=== PATIENT | male | born 1970 | race Caucasian/White ===

== ENCOUNTER 2016-07-28 22:30 | Inpatient (IN) | payer MEDICARE, OTHER ==
[2016-07-28] MEDS ORDERED: ONDANSETRON 4 MG/2 ML VIAL IVP STA (22:48)
[2016-07-28] MEDS ORDERED: SODIUM CHLORIDE 0.9% 2,000 ML IV ONE (22:48)
[2016-07-28] MEDS ORDERED: ACETAMINOPHEN TAB 500 MG TAB PO STA (22:48)
[2016-07-28] MEDS ORDERED: MORPHINE SULFATE 4 MG/ML SYRINGE IVP STA (22:48)
--- NOTE | 2016-07-28 23:05 | ED ---
General Adult HPI - General Chief complaint: Nausea/Vomiting/Diarrhea Stated complaint: Fever Time Seen by Provider: 07/28/16 22:39 Source: patient Mode of arrival: wheelchair Limitations: no limitations - History of Present Illness Initial comments: Is a 45-year-old male with a history of end-stage renal disease on peritoneal dialysis, seizures, CAD, hypertension who presents emergency department for fevers, chills, abdominal pain, generalized malaise, generalized body aches, nausea and vomiting. He states the symptoms started earlier today gradually worsened. He states that the last time he performs peritoneal dialysis was yesterday. He does state that he makes some urine. Denies any diarrhea or constipation. He states his abdominal pain is located in his left upper abdomen and left flank. Nothing seems to make it better or worse. It is nonradiating. He does admit to a cough however no shortness of breath. No chest pain. No dysuria or hematuria. No rashes. The patient does have a left AKA however declines that he has any wounds or erythema on that leg. No other complaints. His surgical training specialist is Dr. Mann - Related Data Home Medications Medication Instructions Recorded Confirmed Atorvastatin [Lipitor] 80 mg PO HS 04/08/15 07/28/16 Calcium Acetate [PhosLo] 1,334 mg PO TID-W/MEALS 04/08/15 07/28/16 Fluticasone Propionate [Flonase 2 spray EA NOSTRIL DAILY PRN 04/08/15 07/28/16 Allergy Relief] Folic Acid 1 mg PO DAILY 04/08/15 07/28/16 Folic Acid-Vit B Complex-Vit C 1 cap PO HS 04/08/15 07/28/16 [Nephrocaps] Gabapentin [Neurontin] 300 mg PO TID 04/08/15 07/28/16 Insulin Glargine [Lantus] 10 unit SQ HS 04/08/15 07/28/16 Levothyroxine Sodium [Synthroid] 25 mcg PO DAILY 04/08/15 07/28/16 Insulin Aspart [NovoLOG] See Protocol SQ AC-TID 05/21/15 07/28/16 levETIRAcetam [Keppra] 750 mg PO Q12HR 05/21/15 07/28/16 Amiodarone [Cordarone] 200 mg PO BID 01/20/16 07/28/16 Famotidine [Pepcid] 20 mg PO BID 01/20/16 07/28/16 Sevelamer [Renvela] 1,600 mg PO AC-TID 01/20/16 07/28/16 acetaZOLAMIDE [Diamox] 125 mg PO BID 01/20/16 07/28/16 Uqynqdqj-Qiufcfzuhl-Zspr Oint 1 applic TOPICAL DAILY 07/28/16 07/28/16 [Triple Antibiotic Ointment] amLODIPine [Norvasc] 10 mg PO DAILY 07/28/16 07/28/16 Previous Rx's Medication Instructions Recorded Sodium Bicarbonate Tab 650 mg PO BID #60 tab 06/03/15 Allergies Allergy/AdvReac Type Severity Reaction Status Date / Time No Known Allergies Allergy Verified 07/28/16 22:49 Review of Systems ROS Statement: Those systems with pertinent positive or pertinent negative responses have been documented in the HPI. ROS Other: All systems not noted in ROS Statement are negative. Past Medical History Past Medical History: Coronary Artery Disease (CAD), Diabetes Mellitus, Dialysis , Deep Vein Thrombosis (DVT), GERD/Reflux, Hyperlipidemia, Hypertension, Myocardial Infarction ([place]), Musculoskeletal Disorder, Renal Disease, Seizure Disorder Additional Past Medical History / Comment(s): Diabetic gastropathy, End stage renal disease currently on peritoneal dialysis, peripheral neuropathy, seizure disorder, compression fracture of the vertebral along with known history of this disease, blood clot from IV line in the upper extremity on the left, coronary artery disease, previous myocardial infarction, insulin-dependent diabetes mellitus, GE reflux, gastritis, chronic anemia, cataracts, currently on peritoneal dialysis, peripheral vascular disease with previous amputation involving a below-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 Last Myocardial Infarction Date:: 2012 History of Any Multi-Drug Resistant Organisms: MRSA Date of last positivie culture/infection: MDRO Source:: left foot, blood Past Surgical History: Orthopedic Surgery Additional Past Surgical History / Comment(s): amputation right toes, BKA right leg 2013, GEORGE CATARACTS,VITRECTOMY,GEORGE RETINAL SX Past Anesthesia/Blood Transfusion Reactions: No Reported Reaction Additional Past Anesthesia/Blood Transfusion Reaction / Comment(s): VERTIGO Past Psychological History: No Psychological Hx Reported Additional Psychological History / Comment(s): Single. Tobacco smoker. Denies significant alcohol or recreational drug use. Originally was from the [place] area and then moved down to [place]. Is now moved back to be with his family members. He has a experience. He denies any significant travel history. Denied animal exposure. Smoking Status: Never smoker Past Alcohol Use History: None Reported Past Drug Use History: None Reported - Past Family History Father Family Medical History: Cancer Additional Family Medical History / Comment(s): CANCER FROM AGENT [employer] Mother History Unknown: Yes Family Medical History: Cancer, Supraventricular Tachycardia (SVT) Additional Family Medical History / Comment(s): LUNG CANCER(SMOKER) General Exam - General Exam Comments Initial Comments: Constitutional: Awake alert, patient appears pale and ill-appearing Head: Normocephalic atraumatic Eyes: no conjunctival injection No scleral icterus EOMI Neck: No JVD Supple Heart: Tachycardia normal S1-S2 no murmurs Lungs: Clear to auscultation bilaterally No wheezing No rales Abdomen: Soft nondistended tenderness to palpation in the left upper quadrant and left flank, no guarding or rigidity Extremities: Non edematous DP pulses intact Radial pulses intact Neuro: A&Ox3 No focal neurologic deficits Psych: Appropriate mood and affect Limitations: no limitations Course Vital Signs 07/28/16 07/29/16 22:32 00:31 Temperature 102 F H 100.2 F H Pulse Rate 96 84 Respiratory 18 18 Rate Blood Pressure 110/59 115/68 O2 Sat by Pulse 97 94 L Oximetry EKG Findings - EKG Comments: EKG Findings:: EKG showing normal sinus rhythm with a rate of 92. No ST segment changes or T-wave inversions. QTC is 494. Other intervals are normal. No ectopy. Medical Decision Making - Medical Decision Making This 45-year-old male who presents emergency department for high fevers nausea and vomiting and abdominal pain. At this time no focal findings for source of infection. Urinalysis is pending. Does not appear to have peritonitis. No pneumonia. Influenza is negative. Blood cultures were drawn and pending. At this time I started the patient in on vancomycin and cefepime going to admit the hospital for sepsis. Dr. Cm accepts the admission. I consult Dr. Mann to manage his renal disease. Patient was updated and agrees. - Lab Data Result diagrams: 07/28/16 23:05 07/28/16 23:05 Lab Results 07/28/16 07/28/16 07/28/16 Range/Units 23:05 23:05 23:05 WBC 14.1 H (3.8-10.6) k/uL RBC 3.27 L (4.30-5.90) m/uL Hgb 9.4 L (13.0-17.5) gm/dL Hct 28.4 L (39.0-53.0) % MCV 86.9 (80.0-100.0) fL MCH 28.8 (25.0-35.0) pg MCHC 33.1 (31.0-37.0) g/dL RDW 13.8 (11.5-15.5) % Plt Count 225 (150-450) k/uL Neutrophils % 90 % Lymphocytes % 3 % Monocytes % 5 % Eosinophils % 1 % Basophils % 1 % Neutrophils # 12.7 H (1.3-7.7) k/uL Lymphocytes # 0.4 L (1.0-4.8) k/uL Monocytes # 0.7 (0-1.0) k/uL Eosinophils # 0.1 (0-0.7) k/uL Basophils # 0.1 (0-0.2) k/uL PT 10.1 (9.0-12.0) sec INR 1.0 (<1.1) APTT 22.4 (22.0-30.0) sec Sodium 132 L (137-145) mmol/L Potassium 4.5 (3.5-5.1) mmol/L Chloride 96 L (98-107) mmol/L Carbon Dioxide 24 (22-30) mmol/L Anion Gap 12 mmol/L BUN 50 H (9-20) mg/dL Creatinine 10.48 H* (0.66-1.25) mg/dL Est GFR (MDRD) Af Amer 7 (>60 ml/min/1.73 sqM) Est GFR (MDRD) Non-Af 5 (>60 ml/min/1.73 sqM) Glucose 162 H (74-99) mg/dL Plasma Lactic Acid Massimo (0.7-2.0) mmol/L Calcium 7.8 L (8.4-10.2) mg/dL Magnesium 1.7 (1.6-2.3) mg/dL Total Bilirubin 0.5 (0.2-1.3) mg/dL AST 20 (17-59) U/L ALT 27 (21-72) U/L Alkaline Phosphatase 81 (38-126) U/L Troponin I (0.000-0.034) ng/mL Total Protein 5.5 L (6.3-8.2) g/dL Albumin 2.9 L (3.5-5.0) g/dL Amylase <30 L (30-110) U/L Lipase 28 (23-300) U/L Fluid Source Fluid Color Fluid Appearance Fluid RBC /uL Fluid Nucleated Cells /uL Influenza Type A RNA (Not Detectd) Influenza Type B (PCR) (Not Detectd) 07/28/16 07/28/16 07/28/16 Range/Units 23:05 23:05 23:14 WBC (3.8-10.6) k/uL RBC (4.30-5.90) m/uL Hgb (13.0-17.5) gm/dL Hct (39.0-53.0) % MCV (80.0-100.0) fL MCH (25.0-35.0) pg MCHC (31.0-37.0) g/dL RDW (11.5-15.5) % Plt Count (150-450) k/uL Neutrophils % % Lymphocytes % % Monocytes % % Eosinophils % % Basophils % % Neutrophils # (1.3-7.7) k/uL Lymphocytes # (1.0-4.8) k/uL Monocytes # (0-1.0) k/uL Eosinophils # (0-0.7) k/uL Basophils # (0-0.2) k/uL PT (9.0-12.0) sec INR (<1.1) APTT (22.0-30.0) sec Sodium (137-145) mmol/L Potassium (3.5-5.1) mmol/L Chloride (98-107) mmol/L Carbon Dioxide (22-30) mmol/L Anion Gap mmol/L BUN (9-20) mg/dL Creatinine (0.66-1.25) mg/dL Est GFR (MDRD) Af Amer (>60 ml/min/1.73 sqM) Est GFR (MDRD) Non-Af (>60 ml/min/1.73 sqM) Glucose (74-99) mg/dL Plasma Lactic Acid Massimo 1.4 (0.7-2.0) mmol/L Calcium (8.4-10.2) mg/dL Magnesium (1.6-2.3) mg/dL Total Bilirubin (0.2-1.3) mg/dL AST (17-59) U/L ALT (21-72) U/L Alkaline Phosphatase (38-126) U/L Troponin I <0.012 (0.000-0.034) ng/mL Total Protein (6.3-8.2) g/dL Albumin (3.5-5.0) g/dL Amylase (30-110) U/L Lipase (23-300) U/L Fluid Source Fluid Color Fluid Appearance Fluid RBC /uL Fluid Nucleated Cells /uL Influenza Type A RNA Not Detected (Not Detectd) Influenza Type B (PCR) Not Detected (Not Detectd) 07/28/16 Range/Units 23:50 WBC (3.8-10.6) k/uL RBC (4.30-5.90) m/uL Hgb (13.0-17.5) gm/dL Hct (39.0-53.0) % MCV (80.0-100.0) fL MCH (25.0-35.0) pg MCHC (31.0-37.0) g/dL RDW (11.5-15.5) % Plt Count (150-450) k/uL Neutrophils % % Lymphocytes % % Monocytes % % Eosinophils % % Basophils % % Neutrophils # (1.3-7.7) k/uL Lymphocytes # (1.0-4.8) k/uL Monocytes # (0-1.0) k/uL Eosinophils # (0-0.7) k/uL Basophils # (0-0.2) k/uL PT (9.0-12.0) sec INR (<1.1) APTT (22.0-30.0) sec Sodium (137-145) mmol/L Potassium (3.5-5.1) mmol/L Chloride (98-107) mmol/L Carbon Dioxide (22-30) mmol/L Anion Gap mmol/L BUN (9-20) mg/dL Creatinine (0.66-1.25) mg/dL Est GFR (MDRD) Af Amer (>60 ml/min/1.73 sqM) Est GFR (MDRD) Non-Af (>60 ml/min/1.73 sqM) Glucose (74-99) mg/dL Plasma Lactic Acid Massimo (0.7-2.0) mmol/L Calcium (8.4-10.2) mg/dL Magnesium (1.6-2.3) mg/dL Total Bilirubin (0.2-1.3) mg/dL AST (17-59) U/L ALT (21-72) U/L Alkaline Phosphatase (38-126) U/L Troponin I (0.000-0.034) ng/mL Total Protein (6.3-8.2) g/dL Albumin (3.5-5.0) g/dL Amylase (30-110) U/L Lipase (23-300) U/L Fluid Source Peritoneal Fluid Color Yellow Fluid Appearance Clear Fluid RBC 0 /uL Fluid Nucleated Cells 6 /uL Influenza Type A RNA (Not Detectd) Influenza Type B (PCR) (Not Detectd) Disposition Clinical Impression: Sepsis Disposition: ADMITTED IP TO THIS [facility] Condition: Stable Decision to Admit Reason: Admit from EC
[2016-07-28 23:25] LABS: Basophils # (A) 0.1 k/uL (0-0.2); Basophils % (A) 1 %; CH 30.2; CHCM 34.8; Eosinophils # (A) 0.1 k/uL (0-0.7); Eosinophils % (A) 1 %; HCT 28.4 % (39.0-53.0); HDW 3.11; HGB 9.4 gm/dL (13.0-17.5); Luc # (Auto) 0.09; Luc % (Auto) 1; Lymphocytes # (A) 0.4 k/uL (1.0-4.8); Lymphocytes % (A) 3 %; MCH 28.8 pg (25.0-35.0); MCHC 33.1 g/dL (31.0-37.0); MCV 86.9 fL (80.0-100.0); Mean Platelet Volume 7.6; Monocytes # (A) 0.7 k/uL (0-1.0); Monocytes % (A) 5 %; Neutrophils # (A) 12.7 k/uL (1.3-7.7); Neutrophils % (A) 90 %; RBC 3.27 m/uL (4.30-5.90); RDW 13.8 % (11.5-15.5); WBC 14.1 k/uL (3.8-10.6); WBC (Perox) 14.52
[2016-07-28 23:38] LABS: ALT 27 U/L (21-72); AST 20 U/L (17-59); Alkaline Phosphatase 81 U/L (38-126); Amylase <30 U/L (30-110); Anion Gap 12 mmol/L; Blood Urea Nitrogen 50 mg/dL (9-20); Calcium 7.8 mg/dL (8.4-10.2); Carbon Dioxide 24 mmol/L (22-30); Chloride 96 mmol/L (98-107); Glucose 162 mg/dL (74-99); Magnesium 1.7 mg/dL (1.6-2.3); Potassium 4.5 mmol/L (3.5-5.1); Sodium 132 mmol/L (137-145); Total Bilirubin 0.5 mg/dL (0.2-1.3); Total Protein 5.5 g/dL (6.3-8.2)
[2016-07-28 23:39] LABS: Partial Thromboplastin Time 22.4 sec (22.0-30.0); Prothrombin Time 10.1 sec (9.0-12.0)
[2016-07-28 23:47] LABS: Non-African American GFR(MDRD) 5 (>60 ml/min/1.73 sqM)
--- NOTE | 2016-07-29 00:26 | CT ---
EXAMINATION TYPE: CT abdomen pelvis wo con DATE OF EXAM: 07/28/2016 11:46 PM COMPARISON: 01/20/2016 HISTORY: abd pain, fever, peritoneal dialysis for renal disease CT DLP: 557.70 mGycm Automated exposure control for dose reduction was used. TECHNIQUE: Helical acquisition of images was performed from the lung bases through the pelvis. FINDINGS: LUNG BASES: Minor dependent atelectasis is suggested in both lung bases. LIVER/GB: No significant abnormality is appreciated in the liver. Moderately fluid distended gallblad nahum is noted. There is possibility of sludge in the gallbladder. PANCREAS: No significant abnormality is seen. SPLEEN: No significant abnormality is seen. ADRENALS: No significant abnormality is seen. KIDNEYS: No significant abnormality is seen. RETROPERITONEAL ADENOPATHY: None visualized REPRODUCTIVE ORGANS: Enlarged prostate gland is noted. URINARY BLADDER: No significant abnormality is seen. PELVIC ADENOPATHY: None visualized. OSSEOUS STRUCTURES: There is stable mild to moderate wedge compression fracture deformity of T9 vert ebral body of approximately 30-40%. There is surgical cement with vertebroplasty is noted in the T12 vertebra with mild 20-30% wedge compression fracture deformity. Mild multilevel degenerative changes are present in the thoracal lumbar spine. BOWEL: Small hiatal hernia is again suggested. No significant bowel obstruction is noted. There is m ild colonic diverticulosis. OTHER: The dialysis catheter is again noted entering the right anterior pelvic wall and is coiled in the left pelvic ascites fluid with interval repositioning from the right side to the left side of the pelvis. The ascites fluid is of gaay-rn-sarjwuol degree without significant changes since previous study whic h is seen around the liver and spleen and in the pelvis and bilateral paracolic gutters. Previously noted 4 cm broken piece of catheter in the right upper abdomen. The liver margin is no shirlene justin seen. There is probably interval removal of this catheter. IMPRESSION: 1. STABLE MILD TO MODERATE ASCITES FLUID IN THE ABDOMEN AND PELVIS WITH RIGHT-SIDED DIALYSIS CATHETER IN PLACE WHICH IS NOW COILED IN THE LEFT PELVIS WITH SHIFT IN THE POSITION. 2. FLUID DISTENDED GALLBLADDER IS AGAIN NOTED WITH POSSIBLE SLUDGE IN THE GALLBLADDER. 3. PREVIOUSLY SEEN BROKEN CATHETER PIECE IS NOT VISUALIZED AT THIS TIME IN THE ABDOMEN AND PELVIS.
--- NOTE | 2016-07-29 00:28 | XR ---
EXAMINATION TYPE: XR chest 2V DATE OF EXAM: 07/28/2016 11:46 PM COMPARISON: 09/09/2014 HISTORY: Fever TECHNIQUE: Frontal and lateral views of the chest are obtained. FINDINGS: There is interval removal of right-sided dialysis catheter. Mild chronic lung changes are suggested. There is no focal air space opacity, pleural effusion, or pneumothorax seen. There is mild cardiomega ly. The osseous structures are intact. IMPRESSION: 1. Mild cardiomegaly. 2. Interval removal of right-sided dialysis catheter. 3. No active lung infiltrates.
[2016-07-29] MEDS ORDERED: CEFEPIME 1 GM in SODIUM CHLORIDE 0.9% 50 ML IVPB STA (00:32)
[2016-07-29] MEDS ORDERED: VANCOMYCIN 1,500 MG in SODIUM CHLORIDE 0.9% 250 ML IVPB ONE (00:32)
[2016-07-29 00:45] LABS: RBC, Body Fluid 0 /uL
[2016-07-29] MEDS ORDERED: MORPHINE SULFATE 4 MG/ML SYRINGE IVP STA (01:08)
[2016-07-29] MEDS ORDERED: IV VANCOMYCIN PER PHARMACY 1 EACH MISC MISCELLANE PRN (01:10)
[2016-07-29 01:18] LABS: Appearance,Urine Clear (Clear); Bacteria,Urine Rare /hpf; Bilirubin,Urine Negative (Negative); Glucose,Urine (UA) 3+ (Negative); Ketones,Urine Negative (Negative); Leukocyte Esterase,Urine Negative (Negative); Mucus,Urine Rare /hpf; Nitrite,Urine Negative (Negative); Particle Count 912; Protein,Urine 4+ (Negative); RBC,Urine 2 /hpf (0-5); UA Billing (MACRO vs. MICRO) MICRO; Urobilinogen,Urine <2.0 mg/dL (<2.0); WBC,Urine 2 /hpf (0-5)
[2016-07-29] MEDS: SODIUM CHLORIDE 0.9% 1,000 ML IV SCH (01:28)
[2016-07-29] MEDS: MORPHINE SULFATE 2 MG/ML SYRINGE IVP PRN ×4 (06:39→21:14)
[2016-07-29 07:46] LABS: Glucose,Whole Blood 140 mg/dL (75-99)
[2016-07-29] MEDS: INSULIN LISPRO (humaLOG) 300 UNIT/3 ML VIAL SQ SCH ×4 (08:15→21:14)
[2016-07-29] MEDS: levETIRAcetam 500 MG TAB PO SCH ×2 (08:51→21:14)
[2016-07-29] MEDS: GABAPENTIN 300 MG CAP PO SCH ×3 (08:52→21:15)
[2016-07-29] MEDS: SODIUM BICARBONATE TAB 650 MG TAB PO SCH ×2 (08:52→21:15)
[2016-07-29] MEDS: LEVOTHYROXINE 25 MCG TAB PO SCH (08:53)
[2016-07-29] MEDS: acetaZOLAMIDE 250 MG TAB PO SCH ×2 (08:53→21:15)
[2016-07-29] MEDS: AMIODARONE 200 MG TAB PO SCH ×2 (09:59→21:14)
[2016-07-29] MEDS: SEVELAMER 800 MG TAB PO SCH ×3 (09:59→17:27)
[2016-07-29] MEDS: ONDANSETRON 4 MG/2 ML VIAL IVP PRN ×2 (10:00→23:57)
[2016-07-29 11:36] LABS: Hemoglobin A1C 12.2 % (4.2-6.1)
[2016-07-29 12:49] LABS: Glucose,Whole Blood 171 mg/dL (75-99)
--- NOTE | 2016-07-29 14:32 | P.NPCON ---
History of Present Illness - Reason for Consult end stage renal disease - History of Present Illness Reason for consultation: End-stage renal disease History of present illness: Patient is a 45-year-old male seen in renal consultation for end- stage renal disease. He is maintained on peritoneal dialysis. Patient presented to the hospital with generalized aches and weakness. He also noted a high fever at home. At the emergency room his temperature was 102 and he's been afebrile since. He was having vomiting prior to admission but no episodes since then. He denies any diarrhea. Does admit to generalized weakness and body aches. Denies any chest pain or shortness of breath. He denies any problems with peritoneal dialysis. Currently feels tired. His appetite is quite poor. Does not feel hungry. Did receive broad-spectrum IV antibiotics in the emergency room. No evidence of peritonitis at this time. Vital signs are stable. General: The patient appeared well nourished and normally developed. HEENT: Head exam is unremarkable. Neck is without jugular venous distension. LUNGS: Lungs are clear to auscultation and percussion. Breath sounds decreased. HEART: Rate and Rhythm are regular. First and second heart sounds normal. No murmurs, rubs or gallops. ABDOMEN: Abdominal exam reveals normal bowel sounds. Non-tender and non- distended. No evidence of peritonitis. EXTREMITITES: No edema. Amputation noted. Past Medical History Past Medical History: Coronary Artery Disease (CAD), Diabetes Mellitus, Dialysis , Deep Vein Thrombosis (DVT), GERD/Reflux, Hyperlipidemia, Hypertension, Myocardial Infarction ([place]), Musculoskeletal Disorder, Renal Disease, Seizure Disorder Additional Past Medical History / Comment(s): Diabetic gastropathy, End stage renal disease currently on peritoneal dialysis , peripheral neuropathy, seizure disorder, compression fracture of the vertebral along with known history of this disease, blood clot from IV line in the upper extremity on the left, coronary artery disease, previous myocardial infarction, insulin- dependent diabetes mellitus, GE reflux, gastritis, chronic anemia, cataracts, currently on peritoneal dialysis, peripheral vascular disease with previous amputation involving a below-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 Last Myocardial Infarction Date:: 2012 History of Any Multi-Drug Resistant Organisms: MRSA Date of last positivie culture/infection: MDRO Source:: left foot, blood Past Surgical History: Orthopedic Surgery Additional Past Surgical History / Comment(s): amputation right toes, BKA right leg 2013, GEORGE CATARACTS,VITRECTOMY,GEORGE RETINAL SX Past Anesthesia/Blood Transfusion Reactions: No Reported Reaction Additional Past Anesthesia/Blood Transfusion Reaction / Comment(s): VERTIGO Past Psychological History: No Psychological Hx Reported Additional Psychological History / Comment(s): Single. Tobacco smoker. Denies significant alcohol or recreational drug use. Originally was from the [place] area and then moved down to [place]. Is now moved back to be with his family members in [place] since 2014. He has a experience. He denies any significant travel history. Denied animal exposure. Smoking Status: Never smoker Past Alcohol Use History: None Reported Past Drug Use History: None Reported - Past Family History Father Family Medical History: Cancer Additional Family Medical History / Comment(s): CANCER FROM AGENT [employer]ANGE Mother History Unknown: Yes Family Medical History: Cancer, Supraventricular Tachycardia (SVT) Additional Family Medical History / Comment(s): LUNG CANCER(SMOKER) Medications and Allergies Home Medications Medication Instructions Recorded Confirmed Type Atorvastatin [Lipitor] 80 mg PO HS 04/08/15 07/28/16 History Calcium Acetate [PhosLo] 1,334 mg PO TID-W/MEALS 04/08/15 07/28/16 History Fluticasone Propionate [Flonase 2 spray EA NOSTRIL DAILY PRN 04/08/15 07/28/16 History Allergy Relief] Folic Acid 1 mg PO DAILY 04/08/15 07/28/16 History Folic Acid-Vit B Complex-Vit C 1 cap PO 04/08/15 07/28/16 History [Nephrocaps] Gabapentin [Neurontin] 300 mg PO TID 04/08/15 07/28/16 History Insulin Glargine [Lantus] 10 unit SQ HS 04/08/15 07/28/16 History Levothyroxine Sodium [Synthroid] 25 mcg PO DAILY 04/08/15 07/28/16 History Insulin Aspart [NovoLOG] See Protocol SQ AC-TID 05/21/15 07/28/16 History levETIRAcetam [Keppra] 750 mg PO Q12HR 05/21/15 07/28/16 History Amiodarone [Cordarone] 200 mg PO BID 01/20/16 07/28/16 History Famotidine [Pepcid] 20 mg PO BID 01/20/16 07/28/16 History Sevelamer [Renvela] 1,600 mg PO AC-TID 01/20/16 07/28/16 History acetaZOLAMIDE [Diamox] 125 mg PO BID 01/20/16 07/28/16 History Kyevaubc-Unthzmoltt-Lkbl Oint 1 applic TOPICAL DAILY 07/28/16 07/28/16 History [Triple Antibiotic Ointment] amLODIPine [Norvasc] 10 mg PO DAILY 07/28/16 07/28/16 History Allergies Allergy/AdvReac Type Severity Reaction Status Date / Time No Known Allergies Allergy Verified 07/28/16 22:49 Physical Exam Vitals: Vital Signs Temp Pulse Pulse Resp BP BP Pulse Ox 07/29/16 07:00 97 F L 68 19 109/67 98 07/29/16 03:12 97.4 F L 78 18 112/66 100 07/29/16 02:46 98.1 F 73 16 114/65 97 07/29/16 01:33 98.7 F 76 18 115/68 95 Intake and Output 07/28/16 07/29/16 07/29/16 22:59 06:59 14:59 Intake Total 0 Output Total 100 Balance 0 -100 Intake: Oral 0 Output: Urine 100 Other: Voiding Method Urinal CAPD # Voids 0 Weight 87.5 kg Results - Lab Results Most recent lab results Calcium 7.8 mg/dL (8.4-10.2) L 07/28/16 23:05 Magnesium 1.7 mg/dL (1.6-2.3) 07/28/16 23:05 07/28/16 23:05 07/28/16 23:05 Assessment and Plan Plan: Assessment: #1. End-stage renal disease maintained on peritoneal dialysis. #2. Fever. Questionable viral syndrome. No evidence of peritonitis at this time. #3. Anemia of chronic kidney disease. #4. Chronic kidney disease mineral bone disease. #5. Insulin-dependent diabetes mellitus. Plan: Decrease IV fluids to 40 mL an hour. Maintain 2.5 L 2.5% exchanges every 6 hours. Follow-up peritoneal fluid culture. No evidence of peritonitis at this time. Start Aranesp. Check iron studies. Check phosphorus level. Maintain Renvela with meals. Nephrocaps daily. Antibiotics per infectious disease recommendations. Thank you for the consultation. I will continue to follow the patient with you during his hospital stay.
[2016-07-29 14:54] LABS: Phosphorous 5.7 mg/dL (2.5-4.5)
[2016-07-29 15:04] LABS: % Iron Saturation 23.2 % (20-50)
[2016-07-29] MEDS: FOLIC ACID-VIT B COMPLEX-VIT C 1 CAP PO SCH (16:15)
[2016-07-29] MEDS: DARBEPOETIN ALFA 40 MCG/0.4 ML SYRINGE SQ SCH (16:15)
[2016-07-29 16:57] LABS: Glucose,Whole Blood 145 mg/dL (75-99)
--- NOTE | 2016-07-29 17:57 | P.HPIM ---
History of Present Illness 45-year-old male presented to the emergency room with some fever 10 to nausea vomiting and abdominal pain. Patient has a history of peritoneal dialysis. Review of Systems Constitutional: Reports fatigue, Reports fever Gastrointestinal: Reports vomiting Past Medical History Past Medical History: Coronary Artery Disease (CAD), Diabetes Mellitus, Dialysis , Deep Vein Thrombosis (DVT), GERD/Reflux, Hyperlipidemia, Hypertension, Myocardial Infarction ([place]), Musculoskeletal Disorder, Renal Disease, Seizure Disorder Additional Past Medical History / Comment(s): Diabetic gastropathy, End stage renal disease currently on peritoneal dialysis , peripheral neuropathy, seizure disorder, compression fracture of the vertebral along with known history of this disease, blood clot from IV line in the upper extremity on the left, coronary artery disease, previous myocardial infarction, insulin- dependent diabetes mellitus, GE reflux, gastritis, chronic anemia, cataracts, currently on peritoneal dialysis, peripheral vascular disease with previous amputation involving a below-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 Last Myocardial Infarction Date:: 2012 History of Any Multi-Drug Resistant Organisms: MRSA Date of last positivie culture/infection: MDRO Source:: left foot, blood Past Surgical History: Orthopedic Surgery Additional Past Surgical History / Comment(s): amputation right toes, BKA right leg 2013, GEORGE CATARACTS,VITRECTOMY,GEORGE RETINAL SX Past Anesthesia/Blood Transfusion Reactions: No Reported Reaction Additional Past Anesthesia/Blood Transfusion Reaction / Comment(s): VERTIGO Past Psychological History: No Psychological Hx Reported Additional Psychological History / Comment(s): Single. Tobacco smoker. Denies significant alcohol or recreational drug use. Originally was from the [place] area and then moved down to [place]. Is now moved back to be with his family members in [place] since 2014. He has a experience. He denies any significant travel history. Denied animal exposure. Smoking Status: Never smoker Past Alcohol Use History: None Reported Past Drug Use History: None Reported - Past Family History Father Family Medical History: Cancer Additional Family Medical History / Comment(s): CANCER FROM [facility] [facility] Mother History Unknown: Yes Family Medical History: Cancer, Supraventricular Tachycardia (SVT) Additional Family Medical History / Comment(s): LUNG CANCER(SMOKER) Medications and Allergies Home Medications Medication Instructions Recorded Confirmed Type Atorvastatin [Lipitor] 80 mg PO HS 04/08/15 07/28/16 History Calcium Acetate [PhosLo] 1,334 mg PO TID-W/MEALS 04/08/15 07/28/16 History Fluticasone Propionate [Flonase 2 spray EA NOSTRIL DAILY PRN 04/08/15 07/28/16 History Allergy Relief] Folic Acid 1 mg PO DAILY 04/08/15 07/28/16 History Folic Acid-Vit B Complex-Vit C 1 cap PO HS 04/08/15 07/28/16 History [Nephrocaps] Gabapentin [Neurontin] 300 mg PO TID 04/08/15 07/28/16 History Insulin Glargine [Lantus] 10 unit SQ HS 04/08/15 07/28/16 History Levothyroxine Sodium [Synthroid] 25 mcg PO DAILY 04/08/15 07/28/16 History Insulin Aspart [NovoLOG] See Protocol SQ AC-TID 05/21/15 07/28/16 History levETIRAcetam [Keppra] 750 mg PO Q12HR 05/21/15 07/28/16 History Amiodarone [Cordarone] 200 mg PO BID 01/20/16 07/28/16 History Famotidine [Pepcid] 20 mg PO BID 01/20/16 07/28/16 History Sevelamer [Renvela] 1,600 mg PO AC-TID 01/20/16 07/28/16 History acetaZOLAMIDE [Diamox] 125 mg PO BID 01/20/16 07/28/16 History Rpkzsimj-Mdecyuddra-Uckt Oint 1 applic TOPICAL DAILY 07/28/16 07/28/16 History [Triple Antibiotic Ointment] amLODIPine [Norvasc] 10 mg PO DAILY 07/28/16 07/28/16 History Allergies Allergy/AdvReac Type Severity Reaction Status Date / Time No Known Allergies Allergy Verified 07/28/16 22:49 Physical Exam Vitals: Vital Signs Temp Pulse Pulse Resp BP BP Pulse Ox 07/29/16 15:00 97.7 F 69 20 103/53 96 07/29/16 08:00 20 07/29/16 07:00 97 F L 68 19 109/67 98 07/29/16 03:12 97.4 F L 78 18 112/66 100 07/29/16 02:46 98.1 F 73 16 114/65 97 07/29/16 01:33 98.7 F 76 18 115/68 95 Intake and Output 07/29/16 07/29/16 07/29/16 06:59 14:59 22:59 Intake Total 0 Output Total 100 100 Balance 0 -100 -100 Intake: Oral 0 Output: Urine 100 100 Other: Voiding Method Urinal Urinal CAPD CAPD # Voids 0 1 Weight 87.5 kg 87.5 kg Patient Weight 07/30/16 06:59 Weight 87.5 kg - Constitutional General appearance: mild distress - EENT Eyes: PERRLA Ears: bilateral: normal - Neck Neck: normal ROM - Respiratory Respiratory: bilateral: CTA - Cardiovascular Rhythm: regular - Gastrointestinal General gastrointestinal: soft - Integumentary Integumentary: normal - Neurologic Neurologic: CNII-XII intact - Musculoskeletal Musculoskeletal: generalized weakness - Psychiatric Psychiatric: A&O x's 3, appropriate affect, intact judgment & insight Results CBC & Chem 7: 07/28/16 23:05 07/28/16 23:05 Labs: Abnormal Lab Results - Last 24 Hours (Table) 07/29/16 07/29/16 07/29/16 Range/Units 06:21 06:21 06:21 POC Glucose (mg/dL) (75-99) mg/dL Hemoglobin A1c 12.2 H (4.2-6.1) % Plasma Lactic Acid Massimo 0.5 L (0.7-2.0) mmol/L Phosphorus 5.7 H (2.5-4.5) mg/dL Iron 41 L (49-181) ug/dL TIBC 177 L (261-462) ug/dL Ferritin 901 H (18-464) ng/mL 07/29/16 07/29/16 07/29/16 Range/Units 07:30 12:32 16:56 POC Glucose (mg/dL) 140 H 171 H 145 H (75-99) mg/dL Hemoglobin A1c (4.2-6.1) % Plasma Lactic Acid Massimo (0.7-2.0) mmol/L Phosphorus (2.5-4.5) mg/dL Iron (49-181) ug/dL TIBC (261-462) ug/dL Ferritin (18-464) ng/mL Chest x-ray: report reviewed Thrombosis Risk Factor Assmnt - Choose All That Apply Any of the Below Risk Factors Present?: Yes Each Factor Represents 1 point: Age 41-60 years, Obesity (BMI >25) Other Risk Factors: Yes Each Risk Factor Represents 3 Points: History of DVT/PE Other congenital or acquired thrombophilia - If yes, enter type in comment: No Thrombosis Risk Factor Assessment Total Risk Factor Score: 5 Thrombosis Risk Factor Assessment Level: High Risk Assessment and Plan Plan: Assessment Sepsis fever undetermined origin End-stage renal failure on peritoneal dialysis GFR 5 History of DVT GERD Diabetic gastropathy Seizure disorder coronary artery disease Diabetes type [address] Sy regarding fever Culture of peritoneal fluid and urine Consult Dr. Mann regarding peritoneal dialysis
[2016-07-29] MEDS: DIALYSIS (PERITONEAL) DEX 2.5% 2,500 ML INTRAPERIT SCH ×2 (18:34→23:51)
[2016-07-29 20:41] LABS: Glucose,Whole Blood 173 mg/dL (75-99)
[2016-07-29] MEDS: INSULIN GLARGINE 100 UNIT/ML 10 ML VIAL SQ SCH (21:14)
[2016-07-29] MEDS: ATORVASTATIN 80 MG TAB PO SCH (21:14)
--- NOTE | 2016-07-29 22:07 | P.CONS ---
History of Present Illness - Reason for Consult Consult date: 07/29/16 - Chief Complaint Fever - History of Present Illness 45-year-old male with long-standing history of diabetes mellitus type 2 presents to hospital with a sudden onset of high-grade fever with chills, no delmy rigor with severe body aches. Because he felt so poorly presented to the emergency center. There are temperature 100 and she was noted he was admitted to hospital for concerns to sepsis. It essentially just slightly better. His temperature is improved. Continues to have some severe body aches. He's also has significant difficulty with nausea some emesis earlier but not currently. Did take a bite or 2 of his dinner tray but does not have any STIC in appetite. He is denying hematemesis or melena. He is not having significant diarrhea. He has some mild abdominal cramp without severe abdominal pain at this moment. Relates that his muscle aches are more severe than his abdominal pain. He's had no difficulty with his peritoneal dialysis. The fluid has been clear as far as he knows. He has not had prior difficulties with peritonitis related to his dialysis. Review of Systems HEENT:Denies headache or acute visual change. Denies sinus or mouth discomforts. Denies neck stiffness or pain. Denies significant oral cavity pain. Denies difficulty on swallowing. Lungs: Denies significant shortness of breath, cough, sputum production, or hemoptysis. Cardiovascular: Denies significant shortness of breath, chest pain, chest wall pain, orthopnea, dyspnea on exertion, syncope Gastrointestinal: As per the HPI Musculoskeletal: Patient complains of severe generalized myalgia minimal arthralgias especially to larger joints. No difficulty with ambulation. Skin: Denies new rash or lesions. No new ulcers or wounds are related.. Neuro: Mild headache has poor vision has had a recent vitrectomy and cataract surgery but denies that he and I pain. Denies any new onset weakness or difficulty with ambulation. Denies falls or seizures. Psychiatric:Denies anxiety or depression. Endocrine: Chronic fatigue weight is stable Past Medical History Past Medical History: Coronary Artery Disease (CAD), Diabetes Mellitus, Dialysis , Deep Vein Thrombosis (DVT), GERD/Reflux, Hyperlipidemia, Hypertension, Myocardial Infarction ([place]), Musculoskeletal Disorder, Renal Disease, Seizure Disorder Additional Past Medical History / Comment(s): Diabetic gastropathy, End stage renal disease currently on peritoneal dialysis , peripheral neuropathy, seizure disorder, compression fracture of the vertebral along with known history of this disease, blood clot from IV line in the upper extremity on the left, coronary artery disease, previous myocardial infarction, insulin- dependent diabetes mellitus, GE reflux, gastritis, chronic anemia, cataracts, currently on peritoneal dialysis, peripheral vascular disease with previous amputation involving a below-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 Last Myocardial Infarction Date:: 2012 History of Any Multi-Drug Resistant Organisms: MRSA Year Discovered:: MDRO Source:: left foot, blood Past Surgical History: Orthopedic Surgery Additional Past Surgical History / Comment(s): amputation right toes, BKA right leg 2013, GEORGE CATARACTS,VITRECTOMY,GEORGE RETINAL SX Past Anesthesia/Blood Transfusion Reactions: No Reported Reaction Additional Past Anesthesia/Blood Transfusion Reaction / Comm: VERTIGO Past Psychological History: No Psychological Hx Reported Additional Psychological History / Comment(s): Single. Tobacco smoker. Denies significant alcohol or recreational drug use. Originally was from the [place] and then moved down to [place]. Is now moved back to be with his family members in [place] since 2014. He has no experience. He denies any significant travel history. Brother has a pet dog in the home in which he lives. Relates that his 13-year-old daughter 2 years ago from suicide at the age of 13 Smoking Status: Never smoker Past Alcohol Use History: None Reported Past Drug Use History: None Reported - Past Family History Father Family Medical History: Cancer Additional Family Medical History / Comment(s): CANCER FROM [employer] [facility] Mother History Unknown: Yes Family Medical History: Cancer, Supraventricular Tachycardia (SVT) Additional Family Medical History / Comment(s): LUNG CANCER(SMOKER) Medications and Allergies Home Medications and Allergies Comment(s): Current Medications Acetaminophen (Tylenol Tab) 650 mg PO Q6HR PRN PRN Reason: Fever and/ or Pain Acetazolamide (Diamox) 125 mg PO BID [facility] Last Admin: 07/29/16 21:15 Dose: 125 mg Amiodarone HCl (Cordarone) 200 mg PO BID [facility] Last Admin: 07/29/16 21:14 Dose: 200 mg Atorvastatin Calcium (Lipitor) 80 mg PO HS [facility] Last Admin: 07/29/16 21:14 Dose: 80 mg Darbepoetin Blaine (Aranesp) 40 mcg SQ Q7D [facility] Last Admin: 07/29/16 16:15 Dose: 40 mcg Gabapentin (Neurontin) 300 mg PO TID [facility] Last Admin: 07/29/16 21:15 Dose: 300 mg Sodium Chloride (Saline 0.9%) 1,000 mls @ 40 mls/hr IV .Q24H [facility] Last Admin: 07/29/16 01:28 Dose: 75 mls/hr Peritoneal Dialysis Solution (Delflex With 2.5% Dextrose) 2,500 mls @ 0 mls/hr INTRAPERIT Q6HR [facility] PRN Reason: As Directed Last Admin: 07/29/16 18:34 Dose: 1,500 mls/hr Insulin Glargine (Lantus) 10 unit SQ [facility] Last Admin: 07/29/16 21:14 Dose: 10 unit Insulin Human Lispro (Humalog) 0 unit SQ ACHS [facility] PRN Reason: Protocol Last Admin: 07/29/16 21:14 Dose: 2 unit Levetiracetam (Keppra) 750 mg PO Q12HR [facility] Last Admin: 07/29/16 21:14 Dose: 750 mg Levothyroxine Sodium (Synthroid) 25 mcg PO DAILY [facility] Last Admin: 07/29/16 08:53 Dose: 25 mcg Miscellaneous Information (Pharmacy To Dose Iv Vancomycin) 1 each MISCELLANE DIRECTED PRN PRN Reason: Per Protocol Morphine Sulfate (Morphine Sulfate (Inj)) 2 mg IVP Q4H PRN PRN Reason: Pain/Discomfort Last Admin: 07/29/16 21:14 Dose: 2 mg Multivit/Ca Carb/B Cmplx/FA/Prenat (Nephrocaps) 1 each PO DAILY [facility] Last Admin: 07/29/16 16:15 Dose: 1 each Ondansetron HCl (Zofran) 4 mg IVP Q6HR PRN PRN Reason: Nausea And Vomiting Last Admin: 07/29/16 10:00 Dose: 4 mg Sevelamer Carbonate (Renvela) 1,600 mg PO AC-TID [facility] Last Admin: 07/29/16 17:27 Dose: 1,600 mg Sodium Bicarbonate (Sodium Bicarbonate Tab) 650 mg PO BID [facility] Last Admin: 07/29/16 21:15 Dose: 650 mg Home Medications Medication Instructions Recorded Confirmed Type Atorvastatin [Lipitor] 80 mg PO 04/08/15 07/28/16 History Calcium Acetate [PhosLo] 1,334 mg PO TID-W/MEALS 04/08/15 07/28/16 History Fluticasone Propionate [Flonase 2 spray EA NOSTRIL DAILY PRN 04/08/15 07/28/16 History Allergy Relief] Folic Acid 1 mg PO DAILY 04/08/15 07/28/16 History Folic Acid-Vit B Complex-Vit C 1 cap PO HS 04/08/15 07/28/16 History [Nephrocaps] Gabapentin [Neurontin] 300 mg PO TID 04/08/15 07/28/16 History Insulin Glargine [Lantus] 10 unit SQ HS 04/08/15 07/28/16 History Levothyroxine Sodium [Synthroid] 25 mcg PO DAILY 04/08/15 07/28/16 History Insulin Aspart [NovoLOG] See Protocol SQ AC-TID 05/21/15 07/28/16 History levETIRAcetam [Keppra] 750 mg PO Q12HR 05/21/15 07/28/16 History Amiodarone [Cordarone] 200 mg PO BID 01/20/16 07/28/16 History Famotidine [Pepcid] 20 mg PO BID 01/20/16 07/28/16 History Sevelamer [Renvela] 1,600 mg PO AC-TID 01/20/16 07/28/16 History acetaZOLAMIDE [Diamox] 125 mg PO BID 01/20/16 07/28/16 History Rvdkobik-Grliitfkot-Orme Oint 1 applic TOPICAL DAILY 07/28/16 07/28/16 History [Triple Antibiotic Ointment] amLODIPine [Norvasc] 10 mg PO DAILY 07/28/16 07/28/16 History Allergies Allergy/AdvReac Type Severity Reaction Status Date / Time No Known Allergies Allergy Verified 07/28/16 22:49 Physical Exam Vitals: Vital Signs Temp Pulse Pulse Resp BP BP Pulse Ox 07/29/16 18:30 97.5 F L 78 16 132/77 97 07/29/16 18:25 97.5 F L 78 16 132/77 97 07/29/16 16:00 69 20 07/29/16 15:00 97.7 F 69 20 103/53 96 07/29/16 08:00 20 07/29/16 07:00 97 F L 68 19 109/67 98 07/29/16 03:12 97.4 F L 78 18 112/66 100 07/29/16 02:46 98.1 F 73 16 114/65 97 07/29/16 01:33 98.7 F 76 18 115/68 95 Intake and Output 07/29/16 07/29/16 07/29/16 06:59 14:59 22:59 Intake Total 0 240 Output Total 100 100 Balance 0 -100 140 Intake: Oral 0 240 Output: Urine 100 100 Other: Voiding Method Urinal Urinal Urinal CAPD CAPD CAPD # Voids 0 1 Weight 87.5 kg 87.5 kg Patient Weight 07/30/16 06:59 Weight 87.5 kg 45-year-old gentleman relates feels considerably better. HEENT: Anicteric conjunctiva are pink and moist nasal mucosa grossly intact without significant lesions, there is no thrush. Recent surgical site to the eye is without erythema or tenderness Neck: The neck is supple without significant lymphadenopathy or thyromegaly. Lungs: Good bilateral air entry without significant crackles or wheezing. There is no significant bronchial sounds. There is no egophony or dullness. Heart: Regular rate and rhythm with an audible S1-S2, no S3 no S4. There is no significant murmur click or rub, PMI was nondisplaced. Abdomen: Positive bowel sounds soft and nontender without palpable masses or organomegaly. There was no guarding or rebound. Peritoneal dialysis catheter site is soft and nontender. Abdomen is without any rigidity or rebound. Currently without well Extremities: The upper extremities have excellent pulses they are symmetric, no significant petechiae or telangiectasia. No splinter hemorrhages were noted. The lower extremities are free from significant edema. The peripheral pulses were 2+ and symmetric. Neuro: Awake alert oriented to person place and time. Skin shows evidence of the multiple tattoos but none of them are tender or fresh or infected The patient has some minimal tenderness to his musculature but knows that he can warmth or swelling to the palpated muscles. Results CBC & Chem 7: 07/28/16 23:05 07/28/16 23:05 Labs: Abnormal Lab Results - Last 24 Hours (Table) 07/29/16 07/29/16 07/29/16 Range/Units 06:21 06:21 06:21 POC Glucose (mg/dL) (75-99) mg/dL Hemoglobin A1c 12.2 H (4.2-6.1) % Plasma Lactic Acid Massimo 0.5 L (0.7-2.0) mmol/L Phosphorus 5.7 H (2.5-4.5) mg/dL Iron 41 L (49-181) ug/dL TIBC 177 L (261-462) ug/dL Ferritin 901 H (18-464) ng/mL 07/29/16 07/29/16 07/29/16 Range/Units 07:30 12:32 16:56 POC Glucose (mg/dL) 140 H 171 H 145 H (75-99) mg/dL Hemoglobin A1c (4.2-6.1) % Plasma Lactic Acid Massimo (0.7-2.0) mmol/L Phosphorus (2.5-4.5) mg/dL Iron (49-181) ug/dL TIBC (261-462) ug/dL Ferritin (18-464) ng/mL 07/29/16 Range/Units 20:23 POC Glucose (mg/dL) 173 H (75-99) mg/dL Hemoglobin A1c (4.2-6.1) % Plasma Lactic Acid Massimo (0.7-2.0) mmol/L Phosphorus (2.5-4.5) mg/dL Iron (49-181) ug/dL TIBC (261-462) ug/dL Ferritin (18-464) ng/mL Microbiology 07/28/16 23:50 Peritoneal Fluid Gram Stain - Preliminary 07/28/16 23:50 Peritoneal Fluid Body Fluid Culture - Preliminary 07/29/16 01:00 Urine,Voided Urine Culture - Preliminary Assessment and Plan (1) Fever Status: Acute (2) Gastroenteritis Status: Acute (3) End stage renal disease on dialysis Status: Chronic (4) Poorly controlled type 2 diabetes mellitus with circulatory disorder Status: Acute
[2016-07-30] MEDS: SODIUM CHLORIDE 0.9% 1,000 ML IV SCH (00:10)
[2016-07-30] MEDS: MORPHINE SULFATE 2 MG/ML SYRINGE IVP PRN ×3 (00:55→11:52)
[2016-07-30] MEDS: DIALYSIS (PERITONEAL) DEX 2.5% 2,500 ML INTRAPERIT SCH ×4 (05:45→23:44)
[2016-07-30] MEDS: ONDANSETRON 4 MG/2 ML VIAL IVP PRN (05:48)
[2016-07-30 07:41] LABS: Glucose,Whole Blood 210 mg/dL (75-99)
[2016-07-30] MEDS: AMIODARONE 200 MG TAB PO SCH ×2 (07:47→22:37)
[2016-07-30] MEDS: acetaZOLAMIDE 250 MG TAB PO SCH ×2 (07:47→20:36)
[2016-07-30] MEDS: SODIUM BICARBONATE TAB 650 MG TAB PO SCH ×2 (07:47→20:36)
[2016-07-30] MEDS: FOLIC ACID-VIT B COMPLEX-VIT C 1 CAP PO SCH (07:47)
[2016-07-30] MEDS: GABAPENTIN 300 MG CAP PO SCH ×3 (07:47→22:37)
[2016-07-30] MEDS: levETIRAcetam 500 MG TAB PO SCH ×2 (07:47→20:36)
[2016-07-30] MEDS: SEVELAMER 800 MG TAB PO SCH ×3 (07:47→17:32)
[2016-07-30] MEDS: LEVOTHYROXINE 25 MCG TAB PO SCH (07:49)
[2016-07-30] MEDS: INSULIN LISPRO (humaLOG) 300 UNIT/3 ML VIAL SQ SCH ×4 (08:59→22:35)
[2016-07-30 09:25] LABS: Calcium 7.4 mg/dL (8.4-10.2); Potassium 4.3 mmol/L (3.5-5.1)
--- NOTE | 2016-07-30 11:03 | P.PN ---
Subjective Patient is seen in follow-up for end-stage renal disease. He is maintained on peritoneal dialysis. Patient presented with nausea and vomiting. This morning he's been vomiting again. Denies chest pain or shortness of breath. Denies abdominal pain. Appetite remains poor. Vital signs are stable. General: The patient appeared well nourished and normally developed. HEENT: Head exam is unremarkable. Neck is without jugular venous distension. LUNGS: Lungs are clear to auscultation and percussion. Breath sounds decreased. HEART: Rate and Rhythm are regular. First and second heart sounds normal. No murmurs, rubs or gallops. ABDOMEN: Abdominal exam reveals normal bowel sounds. Non-tender and non- distended. No evidence of peritonitis. EXTREMITITES: No clubbing, cyanosis, or edema. Amputation noted. Objective - Vital Signs Vital signs: Vital Signs Temp 97.2 F L 07/30/16 06:00 Pulse 77 07/30/16 06:00 Resp 18 07/30/16 06:00 BP 109/63 07/30/16 06:00 Pulse Ox 97 07/30/16 06:00 Intake & Output 07/29/16 07/30/16 07/30/16 18:59 06:59 18:59 Intake Total 240 400 Output Total 200 700 Balance 40 -300 Weight 87.5 kg 87.5 kg Intake: Oral 240 400 Output: Urine 200 700 Other: Voiding Method Urinal Urinal Urinal CAPD CAPD CAPD # Voids 1 - Labs CBC & Chem 7: 07/28/16 23:05 07/30/16 08:21 Labs: Abnormal Lab Results - Last 24 Hours (Table) 07/29/16 07/29/16 07/29/16 Range/Units 06:21 06:21 12:32 Sodium (137-145) mmol/L Carbon Dioxide (22-30) mmol/L BUN (9-20) mg/dL Creatinine (0.66-1.25) mg/dL Glucose (74-99) mg/dL POC Glucose (mg/dL) 171 H (75-99) mg/dL Hemoglobin A1c 12.2 H (4.2-6.1) % Calcium (8.4-10.2) mg/dL Phosphorus 5.7 H (2.5-4.5) mg/dL Iron 41 L (49-181) ug/dL TIBC 177 L (261-462) ug/dL Ferritin 901 H (18-464) ng/mL Creatine Kinase (55-170) U/L 07/29/16 07/29/16 07/30/16 Range/Units 16:56 20:23 07:27 Sodium (137-145) mmol/L Carbon Dioxide (22-30) mmol/L BUN (9-20) mg/dL Creatinine (0.66-1.25) mg/dL Glucose (74-99) mg/dL POC Glucose (mg/dL) 145 H 173 H 210 H (75-99) mg/dL Hemoglobin A1c (4.2-6.1) % Calcium (8.4-10.2) mg/dL Phosphorus (2.5-4.5) mg/dL Iron (49-181) ug/dL TIBC (261-462) ug/dL Ferritin (18-464) ng/mL Creatine Kinase (55-170) U/L 07/30/16 Range/Units 08:21 Sodium 135 L (137-145) mmol/L Carbon Dioxide 21 L (22-30) mmol/L BUN 52 H (9-20) mg/dL Creatinine 10.01 H* (0.66-1.25) mg/dL Glucose 197 H (74-99) mg/dL POC Glucose (mg/dL) (75-99) mg/dL Hemoglobin A1c (4.2-6.1) % Calcium 7.4 L (8.4-10.2) mg/dL Phosphorus (2.5-4.5) mg/dL Iron (49-181) ug/dL TIBC (261-462) ug/dL Ferritin (18-464) ng/mL Creatine Kinase 281 H (55-170) U/L Assessment and Plan Plan: Assessment: #1. End-stage renal disease maintained on peritoneal dialysis. #2. Fever. Questionable viral syndrome. No evidence of peritonitis at this time. #3. Anemia of chronic kidney disease. Iron replete. #4. Chronic kidney disease mineral bone disease. #5. Insulin-dependent diabetes mellitus. Plan: Maintain IV fluids at 40 mL an hour. Maintain 2.5 L 2.5% exchanges every 6 hours. Follow-up peritoneal fluid culture. No evidence of peritonitis at this time. Maintain Aranesp. Maintain Renvela with meals. Nephrocaps daily. Antibiotics per infectious disease recommendations.
--- NOTE | 2016-07-30 12:13 | P.PN ---
Subjective Patient complaining of right upper quadrant pain with vomiting this morning. Patient noted to have gallbladder sludge on the CAT scan surgical consult ordered patient is history of diabetic gastropathic Objective - Vital Signs Vital signs: Vital Signs Temp 97.6 F 07/30/16 12:00 Pulse 78 07/30/16 12:00 Resp 16 07/30/16 12:00 BP 105/68 07/30/16 12:00 Pulse Ox 97 07/30/16 12:00 Intake & Output 07/29/16 07/30/16 07/30/16 18:59 06:59 18:59 Intake Total 240 400 Output Total 200 700 Balance 40 -300 Weight 87.5 kg 87.5 kg Intake: Oral 240 400 Output: Urine 200 700 Other: Voiding Method Urinal Urinal Urinal CAPD CAPD CAPD # Voids 1 - Constitutional General appearance: Present: mild distress - EENT Eyes: Present: PERRLA Ears: bilateral: normal - Neck Neck: Present: normal ROM - Respiratory Respiratory: bilateral: CTA - Cardiovascular Rhythm: regular - Gastrointestinal General gastrointestinal: Present: soft Localized gastrointestinal: tender: RUQ - Integumentary Integumentary: Present: normal - Neurologic Neurologic: Present: CNII-XII intact - Musculoskeletal Musculoskeletal: Present: generalized weakness - Psychiatric Psychiatric: Present: A&O x's 3, appropriate affect, intact judgment & insight - Labs CBC & Chem 7: 07/28/16 23:05 07/30/16 08:21 Labs: Abnormal Lab Results - Last 24 Hours (Table) 07/29/16 07/29/16 07/29/16 Range/Units 06:21 12:32 16:56 Sodium (137-145) mmol/L Carbon Dioxide (22-30) mmol/L BUN (9-20) mg/dL Creatinine (0.66-1.25) mg/dL Glucose (74-99) mg/dL POC Glucose (mg/dL) 171 H 145 H (75-99) mg/dL Calcium (8.4-10.2) mg/dL Phosphorus 5.7 H (2.5-4.5) mg/dL Iron 41 L (49-181) ug/dL TIBC 177 L (261-462) ug/dL Ferritin 901 H (18-464) ng/mL Creatine Kinase (55-170) U/L 07/29/16 07/30/16 07/30/16 Range/Units 20:23 07:27 08:21 Sodium 135 L (137-145) mmol/L Carbon Dioxide 21 L (22-30) mmol/L BUN 52 H (9-20) mg/dL Creatinine 10.01 H* (0.66-1.25) mg/dL Glucose 197 H (74-99) mg/dL POC Glucose (mg/dL) 173 H 210 H (75-99) mg/dL Calcium 7.4 L (8.4-10.2) mg/dL Phosphorus (2.5-4.5) mg/dL Iron (49-181) ug/dL TIBC (261-462) ug/dL Ferritin (18-464) ng/mL Creatine Kinase 281 H (55-170) U/L - Imaging and Cardiology CT scan - abdomen: report reviewed Assessment and Plan Plan: Assessment Fever and sepsis unknown origin End-stage renal failure on peritoneal dialysis GFR 5 History of DVT History of coronary disease Diabetes type 2 uncontrolled History of GERD Diabetic gastropathy Seizure disorder Gallbladder disease Plan Surgical consultation regarding gallbladder Continue consultation with Dr. Mann regarding peritoneal dialysis Continue consultation with Dr. Sy regarding fever and possible sepsis Patient on vancomycin and maxipine
[2016-07-30 12:48] LABS: Glucose,Whole Blood 219 mg/dL (75-99)
[2016-07-30] MEDS ORDERED: VANCOMYCIN 1,500 MG in SODIUM CHLORIDE 0.9% 250 ML IVPB ONE (13:00)
[2016-07-30] MEDS: HYDROmorphone 1 MG/ML 1 ML SYRINGE IVP PRN ×3 (15:15→23:45)
--- NOTE | 2016-07-30 15:24 | P.CONS ---
<June Talavera - Last Filed: 07/30/16 16:03> History of Present Illness - Reason for Consult Consult date: 07/30/16 Surgical eval - History of Present Illness A 45-year-old gentleman being seen by surgical service at the request of the attending for right upper quadrant pain with a CAT scan of the abdomen showing fluid distended gallbladder possible sludge in the gallbladder. Patient states over the last several months he has been experiencing right upper quadrant pain radiates into the back has gotten more progressive more symptomatic. Patient states he noted the symptoms seem to occur if he ate fatty foods or spicy foods. Patient states over the last several days has been experiencing intermittent episodes of nausea vomiting with the right upper quadrant pain. Additionally patient stated he's been febrile at home it was noted in the emergency room the temp was 102 patient was tachycardic heart rate in the 90s with a white count of 14 patient currently is being followed by Dr. Sy infectious disease as well as nephrology. Patient has a history of renal disease on peritoneal dialysis. Additionally patient reports on the kidney transplant list at [facility] patient currently is stating continues to have persistent right upper quadrant pain is not alleviated has vomited once this morning cannot keep fluids down" patient fevers questionable viral syndrome there is no evidence of peritonitis. Patient has a significant past medical history of poorly controlled type 2 diabetes with end-stage renal disease on peritoneal dialysis. Patient states he has not been told in the past that he had gallbladder disease blood and urine and peritoneal fluid have been negative to date no growth Patient has seen Dr. Mendoza in the past for peritoneal dialysis catheter to be inserted patient has a history of chronic gastroparesis Review of Systems Essentially unremarkable except as mentioned in the present illness Past Medical History Past Medical History: Coronary Artery Disease (CAD), Diabetes Mellitus, Dialysis , Deep Vein Thrombosis (DVT), GERD/Reflux, Hyperlipidemia, Hypertension, Myocardial Infarction ([place]), Musculoskeletal Disorder, Renal Disease, Seizure Disorder Additional Past Medical History / Comment(s): Diabetic gastropathy, End stage renal disease currently on peritoneal dialysis , peripheral neuropathy, seizure disorder, compression fracture of the vertebral along with known history of this disease, blood clot from IV line in the upper extremity on the left, coronary artery disease, previous myocardial infarction, insulin- dependent diabetes mellitus, GE reflux, gastritis, chronic anemia, cataracts, currently on peritoneal dialysis, peripheral vascular disease with previous amputation involving a below-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 Last Myocardial Infarction Date:: 2012 History of Any Multi-Drug Resistant Organisms: MRSA Year Discovered:: MDRO Source:: left foot, blood Past Surgical History: Orthopedic Surgery Additional Past Surgical History / Comment(s): amputation right toes, BKA right leg 2013, GEORGE CATARACTS,VITRECTOMY,GEORGE RETINAL SX Past Anesthesia/Blood Transfusion Reactions: No Reported Reaction Additional Past Anesthesia/Blood Transfusion Reaction / Comm: VERTIGO Past Psychological History: No Psychological Hx Reported Additional Psychological History / Comment(s): Single. Tobacco smoker. Denies significant alcohol or recreational drug use. Originally was from the [place] area and then moved down to [place]. Is now moved back to be with his family members in [place] since 2014. He has no experience. He denies any significant travel history. Brother has a pet dog in the home in which he lives. Relates that his 13-year-old daughter 2 years ago from suicide at the age of 13 Smoking Status: Never smoker Past Alcohol Use History: None Reported Past Drug Use History: None Reported - Past Family History Father Family Medical History: Cancer Additional Family Medical History / Comment(s): CANCER FROM [employer] Mother History Unknown: Yes Family Medical History: Cancer, Supraventricular Tachycardia (SVT) Additional Family Medical History / Comment(s): LUNG CANCER(SMOKER) Medications and Allergies Home Medications Medication Instructions Recorded Confirmed Type Atorvastatin [Lipitor] 80 mg PO HS 04/08/15 07/28/16 History Calcium Acetate [PhosLo] 1,334 mg PO TID-W/MEALS 04/08/15 07/28/16 History Fluticasone Propionate [Flonase 2 spray EA NOSTRIL DAILY PRN 04/08/15 07/28/16 History Allergy Relief] Folic Acid 1 mg PO DAILY 04/08/15 07/28/16 History Folic Acid-Vit B Complex-Vit C 1 cap PO HS 04/08/15 07/28/16 History [Nephrocaps] Gabapentin [Neurontin] 300 mg PO TID 04/08/15 07/28/16 History Insulin Glargine [Lantus] 10 unit SQ HS 04/08/15 07/28/16 History Levothyroxine Sodium [Synthroid] 25 mcg PO DAILY 04/08/15 07/28/16 History Insulin Aspart [NovoLOG] See Protocol SQ AC-TID 05/21/15 07/28/16 History levETIRAcetam [Keppra] 750 mg PO Q12HR 05/21/15 07/28/16 History Amiodarone [Cordarone] 200 mg PO BID 01/20/16 07/28/16 History Famotidine [Pepcid] 20 mg PO BID 01/20/16 07/28/16 History Sevelamer [Renvela] 1,600 mg PO AC-TID 01/20/16 07/28/16 History acetaZOLAMIDE [Diamox] 125 mg PO BID 01/20/16 07/28/16 History Zzugmfsg-Nvavtryymv-Vzlt Oint 1 applic TOPICAL DAILY 07/28/16 07/28/16 History [Triple Antibiotic Ointment] amLODIPine [Norvasc] 10 mg PO DAILY 07/28/16 07/28/16 History Allergies Allergy/AdvReac Type Severity Reaction Status Date / Time No Known Allergies Allergy Verified 07/28/16 22:49 Physical Exam Vitals: Vital Signs Temp Pulse Pulse Resp BP BP Pulse Ox 07/30/16 12:00 97.6 F 78 16 105/68 97 07/30/16 06:00 97.2 F L 77 18 109/63 97 07/30/16 00:00 97.5 F L 71 18 110/66 95 07/29/16 18:30 97.5 F L 78 16 132/77 97 07/29/16 18:25 97.5 F L 78 16 132/77 97 07/29/16 16:00 69 20 07/29/16 15:00 97.7 F 69 20 103/53 96 Intake and Output 07/29/16 07/30/16 07/30/16 22:59 06:59 14:59 Intake Total 240 400 Output Total 200 600 300 Balance 40 -200 -300 Intake: Oral 240 400 Output: Urine 200 600 200 Emesis 100 Other: Voiding Method Urinal Urinal CAPD CAPD Weight 87.5 kg 87.5 kg GENERAL APPEARANCE: 45-year-old male patient is alert, oriented, in no acute distress. Reports having right upper quadrant pain continues to persist VITAL SIGNS: HEENT: Head is normocephalic and atraumatic. Pupils are equal and reactive. The nares are patent. Oropharynx is clear without lesions. NECK: Supple without lymphadenopathy. Traches midline. HEART: S1, S2. Regular rate and rhythm no murmur noted denying chest pain LUNGS: No crackles or wheezes are heard. On room air ABDOMEN: Soft, slight tenderness with palpitation facial grimacing right upper quadrant pain, nondistended with good bowel sounds. No peritoneal signs. No palpable organomegaly or masses. Dressing to the peritoneal catheter dry EXTREMITIES: Normal skin color and turgor. No cyanosis, rash, ulceration, clubbing or edema. Radial pedal pulses are 2/4 bilaterally. Left BKA noted NEUROLOGICAL: No focal deficits. Strength and sensation are grossly intact. Results CBC & Chem 7: 07/28/16 23:05 07/30/16 08:21 Labs: Abnormal Lab Results - Last 24 Hours (Table) 07/29/16 07/29/16 07/29/16 Range/Units 06:21 16:56 20:23 Sodium (137-145) mmol/L Carbon Dioxide (22-30) mmol/L BUN (9-20) mg/dL Creatinine (0.66-1.25) mg/dL Glucose (74-99) mg/dL POC Glucose (mg/dL) 145 H 173 H (75-99) mg/dL Calcium (8.4-10.2) mg/dL Phosphorus 5.7 H (2.5-4.5) mg/dL Iron 41 L (49-181) ug/dL TIBC 177 L (261-462) ug/dL Ferritin 901 H (18-464) ng/mL Creatine Kinase (55-170) U/L 07/30/16 07/30/16 07/30/16 Range/Units 07:27 08:21 12:39 Sodium 135 L (137-145) mmol/L Carbon Dioxide 21 L (22-30) mmol/L BUN 52 H (9-20) mg/dL Creatinine 10.01 H* (0.66-1.25) mg/dL Glucose 197 H (74-99) mg/dL POC Glucose (mg/dL) 210 H 219 H (75-99) mg/dL Calcium 7.4 L (8.4-10.2) mg/dL Phosphorus (2.5-4.5) mg/dL Iron (49-181) ug/dL TIBC (261-462) ug/dL Ferritin (18-464) ng/mL Creatine Kinase 281 H (55-170) U/L Assessment and Plan Plan: Impression Present on admission right upper quadrant pain CAT scan of the abdomen suggests sludge in the gallbladder Present on admission febrile leukocytosis with no evidence of peritonitis questionable viral syndrome Anemia of chronic disease Chronic kidney disease mineral bone disease Type 2 diabetes insulin requiring uncontrolled hemoglobin A1c 12 End-stage renal disease on peritoneal dialysis 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 Adorno surgical service with notify of his admission Pain control DVT and GI prophylaxis The above dictated assessment and findings were discussed with Dr. Cabrera Impression and the plan of care have been dictated as directed. June Talavera nurse practitioner acting as a scribe for Dr. Martin <Roseann Arias N - Last Filed: 07/30/16 17:11> Physical Exam Vitals: Vital Signs Temp Pulse Pulse Resp BP BP Pulse Ox 07/30/16 15:00 97.4 F L 80 17 138/74 97 07/30/16 12:00 97.6 F 78 16 105/68 97 07/30/16 06:00 97.2 F L 77 18 109/63 97 07/30/16 00:00 97.5 F L 71 18 110/66 95 07/29/16 18:30 97.5 F L 78 16 132/77 97 07/29/16 18:25 97.5 F L 78 16 132/77 97 Intake and Output 07/30/16 07/30/16 07/30/16 06:59 14:59 22:59 Intake Total 400 Output Total 600 400 Balance -200 -400 Intake: Oral 400 Output: Urine 600 300 Emesis 100 Other: Voiding Method Urinal Urinal CAPD CAPD Weight 87.5 kg Results CBC & Chem 7: 07/28/16 23:05 07/30/16 08:21 Labs: Abnormal Lab Results - Last 24 Hours (Table) 07/29/16 07/30/16 07/30/16 Range/Units 20:23 07:27 08:21 Sodium 135 L (137-145) mmol/L Carbon Dioxide 21 L (22-30) mmol/L BUN 52 H (9-20) mg/dL Creatinine 10.01 H* (0.66-1.25) mg/dL Glucose 197 H (74-99) mg/dL POC Glucose (mg/dL) 173 H 210 H (75-99) mg/dL Calcium 7.4 L (8.4-10.2) mg/dL Creatine Kinase 281 H (55-170) U/L 07/30/16 Range/Units 12:39 Sodium (137-145) mmol/L Carbon Dioxide (22-30) mmol/L BUN (9-20) mg/dL Creatinine (0.66-1.25) mg/dL Glucose (74-99) mg/dL POC Glucose (mg/dL) 219 H (75-99) mg/dL Calcium (8.4-10.2) mg/dL Creatine Kinase (55-170) U/L Assessment and Plan (1) Acute cholecystitis due to biliary calculus Status: Acute (2) Peritoneal dialysis catheter in situ Status: Chronic (3) Diabetes type 2, uncontrolled Status: Chronic (4) Below knee amputation status Status: Chronic (5) Gallbladder sludge Status: Acute (6) Gastroparesis Status: Chronic (7) HTN (hypertension) Status: Chronic (8) High risk for readmission Status: Chronic (9) PVD (peripheral vascular disease) Status: Chronic (10) Chronic renal failure Status: Chronic (11) End stage renal disease on dialysis Status: Chronic (12) History of myocardial infarction Status: Chronic Plan: Patient seen and evaluated. Please see additional notes from my surgical consultation.
--- NOTE | 2016-07-30 17:11 | P.GSCN ---
History of Present Illness Consult date: 07/30/16 Reason for Consult: Right upper quadrant abdominal pain Requesting physician: José Cm History of present illness: (Please see nurse practitioner's note Neetu Talavera for additional details.) The patient is a 45-year-old gentleman with more than 3+ day history of right upper quadrant and epigastric abdominal pain. He does have a history of uncontrolled diabetes type 2 with diabetic nephropathy and previous kidney transplant. He has a family history of gallbladder disease whereby his mother had a cholecystectomy as well as kidney disease. He reports baseline history of gastroesophageal reflux disease with incidental gastroparesis. Since his admission, an ultrasound of the abdomen was completed for which I had examined myself demonstrating gallbladder sludge with possible thickening gallbladder wall. Gen. surgery is consulted regarding his right upper quadrant abdominal pain. He reports his abdominal pain has not improved since admission and in fact may have become worse. Review of Systems CONSTITUTIONAL: He had fevers upon admission of 102.0. Currently has malaise. HEENT: Denies any trouble hearing or nosebleeds. No difficulty swallowing. LYMPHATIC: The patient denies any lumps and bumps around the neck. ENDOCRINE: Has thyroid disorders. Has blood sugar glucose intolerance. RESPIRATORY: Denies pneumonia. Denies any troubles with breathing or dyspnea on exertion. CARDIOVASCULAR: Has previous heart attacks. No current palpitations. GASTROINTESTINAL: Has heart burn. Has peritoneal dialysis daily. GENITOURINARY: Has end-stage renal disease with history of kidney failure and peritoneal dialysis daily. MUSCULOSKELETAL: Has back pain, stiffness, joint arthritis. History of below- the-knee amputation noted. NEUROLOGIC: Has numbness, tingling along the distal extremities. Has seizure disorders. PSYCHIATRIC: Occasional depression. HEMATOLOGIC: Previous history of blood clots. Past Medical History Past Medical History: Coronary Artery Disease (CAD), Diabetes Mellitus, Dialysis , Deep Vein Thrombosis (DVT), GERD/Reflux, Hyperlipidemia, Hypertension, Myocardial Infarction ([place]), Musculoskeletal Disorder, Renal Disease, Seizure Disorder Additional Past Medical History / Comment(s): Diabetic gastropathy, End stage renal disease currently on peritoneal dialysis , peripheral neuropathy, seizure disorder, compression fracture of the vertebral along with known history of this disease, blood clot from IV line in the upper extremity on the left, coronary artery disease, previous myocardial infarction, insulin- dependent diabetes mellitus, GE reflux, gastritis, chronic anemia, cataracts, currently on peritoneal dialysis, peripheral vascular disease with previous amputation involving a below-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 Last Myocardial Infarction Date:: 2012 History of Any Multi-Drug Resistant Organisms: MRSA Year Discovered:: MDRO Source:: left foot, blood Past Surgical History: Orthopedic Surgery Additional Past Surgical History / Comment(s): amputation right toes, BKA right leg 2013, GEORGE CATARACTS,VITRECTOMY,GEORGE RETINAL SX Past Anesthesia/Blood Transfusion Reactions: No Reported Reaction Additional Past Anesthesia/Blood Transfusion Reaction / Comm: VERTIGO Past Psychological History: No Psychological Hx Reported Additional Psychological History / Comment(s): Single. Tobacco smoker. Denies significant alcohol or recreational drug use. Originally was from the [place] area and then moved down to [place]. Is now moved back to be with his family members in [place] since 2014. He has no experience. He denies any significant travel history. Brother has a pet dog in the home in which he lives. Relates that his 13-year-old daughter 2 years ago from suicide at the age of 13 Smoking Status: Never smoker Past Alcohol Use History: None Reported Past Drug Use History: None Reported - Past Family History Father Family Medical History: Cancer Additional Family Medical History / Comment(s): CANCER FROM [employer] Mother History Unknown: Yes Family Medical History: Cancer, Supraventricular Tachycardia (SVT) Additional Family Medical History / Comment(s): LUNG CANCER(SMOKER) Medications and Allergies Home Medications Medication Instructions Recorded Confirmed Type Atorvastatin [Lipitor] 80 mg PO HS 04/08/15 07/28/16 History Calcium Acetate [PhosLo] 1,334 mg PO TID-W/MEALS 04/08/15 07/28/16 History Fluticasone Propionate [Flonase 2 spray EA NOSTRIL DAILY PRN 04/08/15 07/28/16 History Allergy Relief] Folic Acid 1 mg PO DAILY 04/08/15 07/28/16 History Folic Acid-Vit B Complex-Vit C 1 cap PO HS 04/08/15 07/28/16 History [Nephrocaps] Gabapentin [Neurontin] 300 mg PO TID 04/08/15 07/28/16 History Insulin Glargine [Lantus] 10 unit SQ 04/08/15 07/28/16 History Levothyroxine Sodium [Synthroid] 25 mcg PO DAILY 04/08/15 07/28/16 History Insulin Aspart [NovoLOG] See Protocol SQ AC-TID 05/21/15 07/28/16 History levETIRAcetam [Keppra] 750 mg PO Q12HR 05/21/15 07/28/16 History Amiodarone [Cordarone] 200 mg PO BID 01/20/16 07/28/16 History Famotidine [Pepcid] 20 mg PO BID 01/20/16 07/28/16 History Sevelamer [Renvela] 1,600 mg PO AC-TID 01/20/16 07/28/16 History acetaZOLAMIDE [Diamox] 125 mg PO BID 01/20/16 07/28/16 History Rxgjlbqi-Kgsntrpkya-Tkbu Oint 1 applic TOPICAL DAILY 07/28/16 07/28/16 History [Triple Antibiotic Ointment] amLODIPine [Norvasc] 10 mg PO DAILY 07/28/16 07/28/16 History Allergies Allergy/AdvReac Type Severity Reaction Status Date / Time No Known Allergies Allergy Verified 07/28/16 22:49 Surgical - Exam Vital Signs Temp Pulse Resp BP Pulse Ox 102 F H 96 18 110/59 97 07/28/16 22:32 07/28/16 22:32 07/28/16 22:32 07/28/16 22:32 07/28/16 22:32 GENERAL: Well developed and in no acute distress. Pleasant. HEENT: No sclera icterus. Extraocular movements grossly intact. Moist buccal mucosa. Head is atraumatic, normocephalic. Hears conversational speech. No nasal drainage. NECK: Supple without lymphadenopathy. No JV distention. CHEST: Non-labored respirations and equal bilateral excursions. CARDIOVASCULAR: Regular rate and rhythm. Palpable 2+ radial pulses. ABDOMEN: Soft. Localized tenderness right upper quadrant and epigastrium. Minimal guarding and right upper quadrant. MUSCULOSKELETAL: Has right vwoad-sud-vqvd amputation noted. No gross cyanosis. NEUROLOGIC: No focal or lateralizing signs. PSYCH: Mute affect. Alert and oriented to person, place and time. Results - Labs 07/28/16 23:05 07/30/16 08:21 Abnormal Lab Results - Last 24 Hours (Table) 07/29/16 07/29/16 07/30/16 Range/Units 16:56 20:23 07:27 Sodium (137-145) mmol/L Carbon Dioxide (22-30) mmol/L BUN (9-20) mg/dL Creatinine (0.66-1.25) mg/dL Glucose (74-99) mg/dL POC Glucose (mg/dL) 145 H 173 H 210 H (75-99) mg/dL Calcium (8.4-10.2) mg/dL Creatine Kinase (55-170) U/L 07/30/16 07/30/16 Range/Units 08:21 12:39 Sodium 135 L (137-145) mmol/L Carbon Dioxide 21 L (22-30) mmol/L BUN 52 H (9-20) mg/dL Creatinine 10.01 H* (0.66-1.25) mg/dL Glucose 197 H (74-99) mg/dL POC Glucose (mg/dL) 219 H (75-99) mg/dL Calcium 7.4 L (8.4-10.2) mg/dL Creatine Kinase 281 H (55-170) U/L Diabetes panel 07/30/16 Range/Units 08:21 Sodium 135 L (137-145) mmol/L Potassium 4.3 (3.5-5.1) mmol/L Chloride 101 (98-107) mmol/L Carbon Dioxide 21 L (22-30) mmol/L BUN 52 H (9-20) mg/dL Creatinine 10.01 H* (0.66-1.25) mg/dL Glucose 197 H (74-99) mg/dL Calcium 7.4 L (8.4-10.2) mg/dL Calcium panel 07/30/16 Range/Units 08:21 Calcium 7.4 L (8.4-10.2) mg/dL Pituitary panel 07/30/16 Range/Units 08:21 Sodium 135 L (137-145) mmol/L Potassium 4.3 (3.5-5.1) mmol/L Chloride 101 (98-107) mmol/L Carbon Dioxide 21 L (22-30) mmol/L BUN 52 H (9-20) mg/dL Creatinine 10.01 H* (0.66-1.25) mg/dL Glucose 197 H (74-99) mg/dL Calcium 7.4 L (8.4-10.2) mg/dL Adrenal panel 07/30/16 Range/Units 08:21 Sodium 135 L (137-145) mmol/L Potassium 4.3 (3.5-5.1) mmol/L Chloride 101 (98-107) mmol/L Carbon Dioxide 21 L (22-30) mmol/L BUN 52 H (9-20) mg/dL Creatinine 10.01 H* (0.66-1.25) mg/dL Glucose 197 H (74-99) mg/dL Calcium 7.4 L (8.4-10.2) mg/dL - Imaging US - abdomen: image reviewed (Films personally reviewed demonstrating gallbladder sludge including some gallbladder wall thickening. On exam patient has positive Varma sign.) Assessment and Plan (1) Acute cholecystitis due to biliary calculus Status: Acute (2) Peritoneal dialysis catheter in situ Status: Chronic (3) Diabetes type 2, uncontrolled Status: Chronic (4) Below knee amputation status Status: Chronic (5) Gallbladder sludge Status: Acute (6) Gastroparesis Status: Chronic (7) HTN (hypertension) Status: Chronic (8) High risk for readmission Status: Chronic (9) PVD (peripheral vascular disease) Status: Chronic (10) Chronic renal failure Status: Chronic (11) End stage renal disease on dialysis Status: Chronic (12) History of myocardial infarction Status: Chronic Plan: 1. On exam, the patient does have localized right upper quadrant abdominal pain with Varma size consistent with acute cholecystitis and supporting diagnostic studies. 2. He has end-stage renal disease with peritoneal dialysis catheter. I personally discussed with Dr. Adorno regarding the patient and contine care. Surgical intervention is advised with presentation of fevers, leukocytosis and acute cholecystitis. 3. Agree with nephrology consultation regarding end-stage renal disease. 4. Also agree with infectious disease management. 5. His diabetes is uncontrolled and also recommend diabetes education. 6. Benefits and risks of laparoscopic cholecystectomy was described including potential malfunction of peritoneal dialysis. He has at moderate risk with this multiple comorbidities including poorly controlled diabetes however the patient does present with acute cholecystitis and we'll need surgical intervention. 7. Recommend nothing by mouth after midnight.
--- NOTE | 2016-07-30 17:22 | US ---
EXAMINATION TYPE: US GALLBLADDER DATE OF EXAM: 07/30/2016 4:14 PM COMPARISON: CT today CLINICAL HISTORY: CAT scan suggests sludge in the gallbladder,abd pain with vomiting EXAM MEASUREMENTS: Liver Length: 15.0cm Gallbladder Wall: 0.3 m CBD: 0.7cm Right Kidney: 10.7 x 4.0 x 4.7cm Anatomy: Pancreas: not seen due to overlying bowel gas Liver: Limited intercostal views were heterogeneous and difficult to penetrate, unable to visualize a ny of the left lobe. Gallbladder: Mobile nonshadowing debris seen in the gallbladder, consistent with biliary sludge. The gallbladder is top normal in volume, and has top normal wall thickness. Sonologist reports positive s onographic Varma's sign. CBD caliber is upper limits of normal Rt Kidney: Negative. Peritoneal Spaces: Simple-appearing anechoic ascites noted. IMPRESSION: 1. DISCORDANT GALLBLADDER SONOGRAPHIC AND CT FINDINGS, BUT OVERALL IMPRESSION IS DOUBTFUL FOR THE JOE GNOSIS OF CHOLECYSTITIS. 2. ASCITES.
[2016-07-30 17:31] LABS: Glucose,Whole Blood 173 mg/dL (75-99)
[2016-07-30] MEDS: INSULIN GLARGINE 100 UNIT/ML 10 ML VIAL SQ SCH (20:37)
[2016-07-30] MEDS: ATORVASTATIN 80 MG TAB PO SCH (20:37)
[2016-07-30 21:31] LABS: Glucose,Whole Blood 138 mg/dL (75-99)
[2016-07-31] MEDS: ONDANSETRON 4 MG/2 ML VIAL IVP PRN ×3 (01:12→17:45)
[2016-07-31] MEDS: SODIUM CHLORIDE 0.9% 1,000 ML IV SCH ×2 (01:13→18:46)
[2016-07-31] MEDS: HYDROmorphone 1 MG/ML 1 ML SYRINGE IVP PRN ×2 (05:50→20:37)
[2016-07-31] MEDS: DIALYSIS (PERITONEAL) DEX 2.5% 2,500 ML INTRAPERIT SCH (05:50)
[2016-07-31 07:55] LABS: Glucose,Whole Blood 161 mg/dL (75-99)
--- NOTE | 2016-07-31 08:42 | P.PN ---
Subjective Patient is seen in follow-up for end-stage renal disease. He is maintained on peritoneal dialysis. Patient presented with nausea and vomiting. He continues to have abdominal pain. Denies chest pain or shortness of breath. Appetite remains poor. Vital signs are stable. General: The patient appeared well nourished and normally developed. HEENT: Head exam is unremarkable. Neck is without jugular venous distension. LUNGS: Lungs are clear to auscultation and percussion. Breath sounds decreased. HEART: Rate and Rhythm are regular. First and second heart sounds normal. No murmurs, rubs or gallops. ABDOMEN: Abdominal exam reveals normal bowel sounds. Non-tender and non- distended. No evidence of peritonitis. EXTREMITITES: No clubbing, cyanosis, or edema. Amputation noted. Objective - Vital Signs Vital signs: Vital Signs Temp 98.7 F 07/31/16 06:00 Pulse 87 07/31/16 06:00 Resp 16 07/31/16 06:00 BP 133/61 07/31/16 06:00 Pulse Ox 97 07/31/16 06:00 Intake & Output 07/30/16 07/31/16 07/31/16 18:59 06:59 18:59 Output Total 400 0 Balance -400 0 Weight 87.5 kg Output: Urine 300 0 Emesis 100 Other: Voiding Method Urinal Urinal CAPD - Labs CBC & Chem 7: 07/28/16 23:05 07/30/16 08:21 Labs: Abnormal Lab Results - Last 24 Hours (Table) 07/30/16 07/30/16 07/30/16 Range/Units 08:21 12:39 17:29 Sodium 135 L (137-145) mmol/L Carbon Dioxide 21 L (22-30) mmol/L BUN 52 H (9-20) mg/dL Creatinine 10.01 H* (0.66-1.25) mg/dL Glucose 197 H (74-99) mg/dL POC Glucose (mg/dL) 219 H 173 H (75-99) mg/dL Calcium 7.4 L (8.4-10.2) mg/dL Creatine Kinase 281 H (55-170) U/L 07/30/16 07/31/16 Range/Units 21:19 07:51 Sodium (137-145) mmol/L Carbon Dioxide (22-30) mmol/L BUN (9-20) mg/dL Creatinine (0.66-1.25) mg/dL Glucose (74-99) mg/dL POC Glucose (mg/dL) 138 H 161 H (75-99) mg/dL Calcium (8.4-10.2) mg/dL Creatine Kinase (55-170) U/L Assessment and Plan Plan: Assessment: #1. End-stage renal disease maintained on peritoneal dialysis. #2. Fever. Questionable viral syndrome. No evidence of peritonitis at this time. Also question of acute cholecystitis. #3. Anemia of chronic kidney disease. Iron replete. #4. Chronic kidney disease mineral bone disease. #5. Insulin-dependent diabetes mellitus. Plan: Maintain IV fluids at 40 mL an hour. Follow-up peritoneal fluid culture. No evidence of peritonitis at this time. Maintain Aranesp. Maintain Renvela with meals. Nephrocaps daily. Antibiotics per infectious disease recommendations. Scheduled for laparoscopic cholecystectomy today. I will decrease the volume of peritoneal dialysis exchanges and gradually increase over the next few days depending on the wound healing.
[2016-07-31] MEDS: INSULIN LISPRO (humaLOG) 300 UNIT/3 ML VIAL SQ SCH ×4 (10:27→21:42)
[2016-07-31] MEDS: LEVOTHYROXINE 25 MCG TAB PO SCH (10:27)
[2016-07-31] MEDS: SEVELAMER 800 MG TAB PO SCH ×3 (10:27→18:15)
[2016-07-31] MEDS: GABAPENTIN 300 MG CAP PO SCH ×3 (10:27→21:10)
[2016-07-31] MEDS: FOLIC ACID-VIT B COMPLEX-VIT C 1 CAP PO SCH (11:11)
[2016-07-31] MEDS: SODIUM BICARBONATE TAB 650 MG TAB PO SCH ×2 (11:11→20:13)
[2016-07-31] MEDS: levETIRAcetam 500 MG TAB PO SCH ×2 (11:12→20:14)
[2016-07-31] MEDS: AMIODARONE 200 MG TAB PO SCH ×2 (11:12→20:13)
[2016-07-31 12:17] LABS: Glucose,Whole Blood 143 mg/dL (75-99)
[2016-07-31] MEDS ORDERED: IV FLUID CONTINUATION 1,000 ML IV ONE (12:27)
[2016-07-31] MEDS ORDERED: DEXAMETHASONE SOD PHOS (MDV) 100 MG/10 ML VIAL IV ONE (12:43)
[2016-07-31] MEDS ORDERED: HEPARIN SODIUM,PORCINE 5,000 UNIT/ML 1 ML VIAL SQ STA (13:47)
--- NOTE | 2016-07-31 13:51 | P.PN ---
Progress Note - Text Patient seen this morning. Discussed with the patient plan of care patient is aware that he is scheduled today by Dr. Cabrera undergo a cholecystectomy. Patient continues to report having right upper quadrant pain. With a sensation of nausea Patient maintains an nothing by mouth status..
[2016-07-31] MEDS ORDERED: MIDAZOLAM 2 MG/2 ML VIAL ONE (14:07)
[2016-07-31] MEDS ORDERED: PROPOFOL 10 MG/ML 20 ML VIAL IV ONE (14:07)
[2016-07-31] MEDS ORDERED: LIDOCAINE 1% INJ 10MG/ML (20 ML MDV) ONE (14:07)
[2016-07-31] MEDS ORDERED: GLYCOPYRROLATE 0.2 MG/ML 2 ML VIAL ONE (14:07)
[2016-07-31] MEDS ORDERED: SUCCINYLCHOLINE CHLORIDE VIAL 200 MG/10 ML VIAL IV ONE (14:07)
[2016-07-31] MEDS ORDERED: ePHEDrine 50 MG/ML 1 ML AMP ONE (14:07)
[2016-07-31] MEDS ORDERED: fentaNYL (PF) 50 MCG/ML 2 ML AMP ONE (14:07)
[2016-07-31] MEDS ORDERED: NEOSTIGMINE 1 MG/ML 10 ML VIAL ONE (14:07)
[2016-07-31] MEDS ORDERED: ROCURONIUM BROMIDE 10 MG/ML 10 ML VIAL IV ONE (14:07)
[2016-07-31] MEDS ORDERED: BUPIVACAIN-EPI 0.25%-1:200,000 30 ML VIAL SQ ONE ×2 (14:52)
[2016-07-31] MEDS ORDERED: SODIUM CHLORIDE 0.9% 1,000 ML IV ONE (16:03)
--- NOTE | 2016-07-31 16:16 | P.OP ---
Date of Procedure: 07/31/16 Description of Procedure: SURGEON: GONZALO WANG MD HEALTH COMMISSIONER: None. PREOPERATIVE DIAGNOSES: 1. Right upper quadrant abdominal pain. 2. Acute cholecystitis. 3. Diabetes type 2 insulin-dependent poorly controlled. 4. Peritoneal dialysis catheter history. 5. Below the knee amputation status. 6. Gallbladder sludge. 7. Gastroesophageal reflux disease. 8. Diabetic gastroparesis. 9. Hypertensive cardiomyopathy. 10. High risk for readmission. 11. Peripheral vascular occlusive disease. 12. Previous history of myocardial infarction. 13. End-stage renal disease dialysis dependent. 14. History of fevers. 15. Leukocytosis. POSTOPERATIVE DIAGNOSES: 1. Right upper quadrant abdominal pain. 2. Acute cholecystitis with cystic duct obstruction secondary to gallstone. 3. Diabetes type 2 insulin-dependent poorly controlled. 4. Peritoneal dialysis catheter history. 5. Below the knee amputation status. 6. Gallbladder sludge. 7. Gastroesophageal reflux disease. 8. Diabetic gastroparesis. 9. Hypertensive cardiomyopathy. 10. High risk for readmission. 11. Peripheral vascular occlusive disease. 12. Previous history of myocardial infarction. 13. End-stage renal disease dialysis dependent. 14. History of fevers. 15. Leukocytosis. OPERATION: Laparoscopic cholecystectomy ANESTHESIA: General with 30 mL 0.25% Marcaine with epinephrine. ESTIMATED BLOOD LOSS: 20 mL. SPECIMENS REMOVED: Gallbladder. COMPLICATIONS: None. INDICATIONS: The patient is a 45-year-old male who presents with multiple comorbidities including right upper quadrant abdominal pain for several days. Diagnostic studies were consistent with gallbladder sludge. He also had positive Varma sign and presented with high fevers and early signs of sepsis. Surgical intervention with laparoscopic cholecystectomy was described at length including injury to the biliary tree, bleeding, infection, need for further surgery. Informed consent was obtained. He had completed his peritoneal dialysis preoperatively. DESCRIPTION OF THE PROCEDURE: The patient was brought to the operating room, laid in supine position. After general induction, the abdomen was prepped and draped in a standard sterile fashion. Prior to incision, a timeout protocol was confirmed with surgical team regarding patient's name, procedure to be performed including preoperative medications for which he had received heparin 5000 units subcutaneously as well as bilateral SCDs for DVT prophylaxis. (The trajectory of his peritoneal dialysis catheter was identified. The peritoneal dialysis catheter was also protected and Tegaderm and out of the field.) An 11 mm port at the left upper quadrant was placed using a 0 5 mm laparoscopic trocar entry as to avoid any area of his peritoneal dialysis catheter. Diagnostic laparoscopy confirmed no injury to bowel, viscera or mesentery. No inguinal hernias were identified. The peritoneal fluid was clear from his recent dialysis. The liver serosa was unremarkable. The gallbladder was moderately distended. A transverse 5 mm incision was made above the umbilicus and off to the right of the midline. Next, two 5 mm trocars were placed along the right costal margin. The patient was placed in steep reverse Trendelenburg position with the right side up. The gallbladder fundus was retracted over the dome of the liver. Initial attention was brought to the infundibulum which was gently retracted in the inferior lateral approach. Using a Kittner, the cystic duct including the cystic artery was carefully skeletonized. Using a large clip counseling center manager 2 clips were placed proximally, and 2 clip was placed distally along the cystic duct and then cut. Again care was taken to avoid any injury to the biliary tree as the common bile duct was clearly visualized during this portion of dissection. Next, the cystic artery was clipped twice proximally, once distally and then cauterized. The cystic structures were divided using Harmonic scalpel. The common bile duct appeared mildly dilated and the cystic duct was palpated with a small stone identified confirming cystic duct obstruction. The gallbladder was intrahepatic and careful dissection was performed along the hepatic fossa avoiding any injury to the liver parenchyma. Electro-Bovie cautery was used to remove the gallbladder from the hepatic fossa without decompression of the gallbladder. Hemostasis was checked and found to be adequate. The gallbladder was removed from the abdominal cavity using an Endo Catch bag and passed off for further pathological analysis. Final postop imaging confirmed no injury to the peritoneal dialysis catheter. Hemostasis was excellent. All instruments and pneumoperitoneum were removed from the abdominal cavity. The fascial defect for the Levemir port was closed using 0 Vicryl in a [place]. The rest of incisions were reapproximated using 4-0 Monocryl in an interrupted subcuticular fashion. A total of 30 mL of 0.25% Marcaine with epinephrine was infiltrated to all wounds for postop analgesia. Dermabond was applied to the skin. At the end of the procedure, needle, sponge, and instrument count was verified correct by surgical dental assistant. The patient had tolerated the procedure well and was taken to postanesthesia care unit in stable condition. FINDINGS: 1. Acute on chronic cholecystitis with cystic duct obstruction. 2. Unremarkable liver surface. 3. Clear dialysate from recent peritoneal dialysis. 4. No inguinal hernias identified. 5. Peritoneal dialysis catheter patent and intact without injury during the procedure. 6. Hemostasis secured along the hepatic fossa.
[2016-07-31] MEDS ORDERED: PIPERACILLIN-TAZOBACTAM 3.375 GM VIAL IVPB SCH (16:52)
[2016-07-31] MEDS: DIALYSIS DEX INTRAPERIT SCH ×3 (17:29→23:56)
[2016-07-31] MEDS ORDERED: SODIUM CHLORIDE 0.9% 500 ML IV ONE (17:45)
[2016-07-31] MEDS: acetaZOLAMIDE 250 MG TAB PO SCH ×2 (17:46→20:14)
[2016-07-31 17:54] LABS: Glucose,Whole Blood 182 mg/dL (75-99)
[2016-07-31] MEDS: PIPERACILLIN-TAZOBACTAM 3.375 GM in DEXTROSE/WATER 1 50ML.BAG IVPB SCH (18:42)
[2016-07-31] MEDS: ATORVASTATIN 80 MG TAB PO SCH (20:13)
--- NOTE | 2016-07-31 20:58 | P.PN ---
Progress Note - Text Patient seen and evaluated this evening. His right upper quadrant abdominal pain has improved since surgery. He is clinically stable.
--- NOTE | 2016-07-31 21:07 | PN ---
DATE OF SERVICE: 07/31/2016 I am covering for Dr. José Cm. This 45-year-old gentleman who was admitted with fever and sepsis and as well as acute cholecystitis and underwent laparoscopic cholecystectomy by Dr. Arias. The patient is being closely monitored. No chest pain. No palpitations. No fever. On exam, alert and oriented times three. Pulse 84. Blood pressure 140/77, respiratory rate 16, temperature 97.9, pulse ox 93% on room air. HEENT: Conjunctivae normal. NECK: No jugular venous distention. CARDIOVASCULAR: S1, S2 muffled. RESPIRATORY: Breath sounds diminished at the bases. A few scattered rhonchi. No crackles. ABDOMEN: Soft. Mild diffuse tenderness. LEGS: No edema. No swelling. CENTRAL NERVOUS SYSTEM: No focal deficits. LABS: WBC 14.1, hemoglobin is 9.4, sodium 135, creatinine is 10.1. Accu-Cheks noted. ASSESSMENT: 1. Acute cholecystitis with cystic duct obstruction secondary to gallstones with acute sepsis, present on admission, status post laparoscopic cholecystectomy. 2. End stage renal disease on peritoneal dialysis. 3. History of deep venous thrombosis. 4. History of coronary artery disease. 5. Diabetes mellitus type 2, uncontrolled. 6. History of gastroesophageal reflux disease. 7. Diabetes Type 2, uncontrolled. 8. History of gastroesophageal reflux disease. 9. Diabetic gastropathy. 10. History of seizure disorder. 11. Diabetes, uncontrolled hemoglobin A1c 12.2. 12. Hyponatremia. 13. Increased WBC. 14. Anemia, anemia of chronic disease. Recommendations and discussion: This 45-year-old woman who presented with multiple complex medical issues, we will monitor the patient closely. Continue the current medications. Continue symptomatic treatment. I would recommend to continue with broad-spectrum IV antibiotics. Repeat cultures. Monitor blood sugars closely. Otherwise, closely follow up with infectious disease. Guarded prognosis because e of multiple complex medical issues. Further recommendations to follow.
[2016-07-31 21:42] LABS: Glucose,Whole Blood 247 mg/dL (75-99)
[2016-07-31] MEDS: INSULIN GLARGINE 100 UNIT/ML 10 ML VIAL SQ SCH (21:42)
--- NOTE | 2016-08-01 00:13 | P.PN ---
Subjective Principal diagnosis: sepsis 45-year-old male with long-standing history of diabetes mellitus type 2 presents to hospital with a sudden onset of high-grade fever with chills, no delmy rigor with severe body aches. Because he felt so poorly presented to the emergency center. There are temperature 100 and she was noted he was admitted to hospital for concerns to sepsis. It essentially just slightly better. His temperature is improved. is still having some nausea and emesis after his cholecystectomy earlier Relates that his muscle aches are more severe than his abdominal pain. He's had no difficulty with his peritoneal dialysis. The fluid has been clear as far as he knows. He has not had prior difficulties with peritonitis related to his dialysis. Objective - Vital Signs Vital signs: Vital Signs Temp 96.9 F L 07/31/16 21:24 Pulse 89 07/31/16 21:24 Resp 18 07/31/16 21:24 BP 138/64 07/31/16 21:24 Pulse Ox 99 07/31/16 21:24 Intake & Output 07/31/16 07/31/16 08/01/16 06:59 18:59 06:59 Intake Total 1000 Output Total 0 20 100 Balance 0 980 -100 Weight 87.5 kg 89 kg Intake: IV 1000 Output: Urine 0 Emesis 100 Estimated Blood Loss 20 Other: Voiding Method Urinal Urinal Urinal # Voids 0 - Exam 45-year-old gentleman relates feels poorly after surgery having nausea and emesis. HEENT: Anicteric conjunctiva are pink and moist nasal mucosa grossly intact without significant lesions, there is no thrush. Recent surgical site to the eye is without erythema or tenderness Neck: The neck is supple without significant lymphadenopathy or thyromegaly. Lungs: Good bilateral air entry without significant crackles or wheezing. There is no significant bronchial sounds. There is no egophony or dullness. Heart: Regular rate and rhythm with an audible S1-S2, no S3 no S4. There is no significant murmur click or rub, PMI was nondisplaced. Abdomen:the patient is status post his cholecystectomy Still has significant abdominal pain. Extremities: The upper extremities have excellent pulses they are symmetric, no significant petechiae or telangiectasia. No splinter hemorrhages were noted. The lower extremities are free from significant edema. The peripheral pulses were 2+ and symmetric. Neuro: Awake alert oriented to person place and time. Skin shows evidence of the multiple tattoos but none of them are tender or fresh or infected - Labs CBC & Chem 7: 07/28/16 23:05 07/30/16 08:21 Labs: Abnormal Lab Results - Last 24 Hours (Table) 07/31/16 07/31/16 07/31/16 Range/Units 07:51 12:09 17:53 POC Glucose (mg/dL) 161 H 143 H 182 H (75-99) mg/dL 07/31/16 Range/Units 21:38 POC Glucose (mg/dL) 247 H (75-99) mg/dL Laboratory Results WBC 14.1 k/uL (3.8-10.6) H 07/28/16 23:05 RBC 3.27 m/uL (4.30-5.90) L 07/28/16 23:05 Hgb 9.4 gm/dL (13.0-17.5) L 07/28/16 23:05 Hct 28.4 % (39.0-53.0) L 07/28/16 23:05 MCV 86.9 fL (80.0-100.0) 07/28/16 23:05 MCH 28.8 pg (25.0-35.0) 07/28/16 23:05 MCHC 33.1 g/dL (31.0-37.0) 07/28/16 23:05 RDW 13.8 % (11.5-15.5) 07/28/16 23:05 Plt Count 225 k/uL (150-450) 07/28/16 23:05 Neutrophils % 90 % 07/28/16 23:05 Lymphocytes % 3 % 07/28/16 23:05 Monocytes % 5 % 07/28/16 23:05 Eosinophils % 1 % 07/28/16 23:05 Basophils % 1 % 07/28/16 23:05 Neutrophils # 12.7 k/uL (1.3-7.7) H 07/28/16 23:05 Lymphocytes # 0.4 k/uL (1.0-4.8) L 07/28/16 23:05 Monocytes # 0.7 k/uL (0-1.0) 07/28/16 23:05 Eosinophils # 0.1 k/uL (0-0.7) 07/28/16 23:05 Basophils # 0.1 k/uL (0-0.2) 07/28/16 23:05 PT 10.1 sec (9.0-12.0) 07/28/16 23:05 INR 1.0 (<1.1) 07/28/16 23:05 APTT 22.4 sec (22.0-30.0) 07/28/16 23:05 Sodium 135 mmol/L (137-145) L 07/30/16 08:21 Potassium 4.3 mmol/L (3.5-5.1) 07/30/16 08:21 Chloride 101 mmol/L (98-107) 07/30/16 08:21 Carbon Dioxide 21 mmol/L (22-30) L 07/30/16 08:21 Anion Gap 13 mmol/L 07/30/16 08:21 BUN 52 mg/dL (9-20) H 07/30/16 08:21 Creatinine 10.01 mg/dL (0.66-1.25) H* 07/30/16 08:21 Est GFR (MDRD) Af Amer 7 (>60 ml/min/1.73 sqM) 07/30/16 08:21 Est GFR (MDRD) Non-Af 6 (>60 ml/min/1.73 sqM) 07/30/16 08:21 Glucose 197 mg/dL (74-99) H 07/30/16 08:21 POC Glucose (mg/dL) 247 mg/dL (75-99) H 07/31/16 21:38 POC Glu Wrapper Stemmer Operator GAYATHRI Gertrude Cifuentes 07/31/16 21:[address] Glu mg/dL 303 mg/dL 07/29/16 06:21 Hemoglobin A1c 12.2 % (4.2-6.1) H 07/29/16 06:21 Plasma Lactic Acid Massimo 0.5 mmol/L (0.7-2.0) L 07/29/16 06:21 Calcium 7.4 mg/dL (8.4-10.2) L 07/30/16 08:21 Phosphorus 5.7 mg/dL (2.5-4.5) H 07/29/16 06:21 Magnesium 1.7 mg/dL (1.6-2.3) 07/28/16 23:05 Iron 41 ug/dL (49-181) L 07/29/16 06:21 TIBC 177 ug/dL (261-462) L 07/29/16 06:21 % Saturation 23.2 % (20-50) 07/29/16 06:21 Ferritin 901 ng/mL (18-464) H 07/29/16 06:21 Total Bilirubin 0.5 mg/dL (0.2-1.3) 07/28/16 23:05 AST 20 U/L (17-59) 07/28/16 23:05 ALT 27 U/L (21-72) 07/28/16 23:05 Alkaline Phosphatase 81 U/L (38-126) 07/28/16 23:05 Creatine Kinase 281 U/L (55-170) H 07/30/16 08:21 Troponin I <0.012 ng/mL (0.000-0.034) 07/28/16 23:05 Total Protein 5.5 g/dL (6.3-8.2) L 07/28/16 23:05 Albumin 2.9 g/dL (3.5-5.0) L 07/28/16 23:05 Amylase <30 U/L (30-110) L 07/28/16 23:05 Lipase 28 U/L (23-300) 07/28/16 23:05 Urine Color Yellow 07/29/16 01:00 Urine Appearance Clear (Clear) 07/29/16 01:00 Urine pH 8.0 (5.0-8.0) 07/29/16 01:00 Ur Specific Hyndman 1.010 (1.001-1.035) 07/29/16 01:00 Urine Protein 4+ (Negative) H 07/29/16 01:00 Urine Glucose (UA) 3+ (Negative) H 07/29/16 01:00 Urine Ketones Negative (Negative) 07/29/16 01:00 Urine Blood Small (Negative) H 07/29/16 01:00 Urine Nitrate Negative (Negative) 07/29/16 01:00 Urine Bilirubin Negative (Negative) 07/29/16 01:00 Urine Urobilinogen <2.0 mg/dL (<2.0) 07/29/16 01:00 Ur Leukocyte Esterase Negative (Negative) 07/29/16 01:00 Urine RBC 2 /hpf (0-5) 07/29/16 01:00 Urine WBC 2 /hpf (0-5) 07/29/16 01:00 Urine Bacteria Rare /hpf (None) H 07/29/16 01:00 Urine Mucus Rare /hpf (None) H 07/29/16 01:00 Fluid Source Peritoneal 07/28/16 23:50 Fluid Color Yellow 07/28/16 23:50 Fluid Appearance Clear 07/28/16 23:50 Fluid RBC 0 /uL 07/28/16 23:50 Fluid Nucleated Cells 6 /uL 07/28/16 23:50 Random Vancomycin 14.8 ug/mL 07/30/16 08:21 Influenza Type A RNA Not Detected (Not Detectd) 07/28/16 23:14 Influenza Type B (PCR) Not Detected (Not Detectd) 07/28/16 23:14 Microbiology 07/28/16 23:50 Peritoneal Fluid Gram Stain - Preliminary 07/28/16 23:50 Peritoneal Fluid Body Fluid Culture - Preliminary 07/28/16 23:05 Blood Blood Culture - Preliminary No Growth after 48 hours 07/29/16 01:00 Urine,Voided Urine Culture - Final surgical note reveals evidence of the stone in the common bile duct Assessment and Plan (1) Fever Narrative/Plan: 45-year-old male presents to the emergency center feeling very poorly. Having high-grade fever up to 102 associated with chills without delmy rigors. Significant myalgias occurred. He also had significant gastroenteritis with some nausea and abdominal pain without much diarrhea. He has not had significant hematemesis melena or hematochezia. The peritoneal fluid is clear and colorless with no stated amounts of white cells. Fortunately does not have evidence of peritoneal catheter-related infection. He does have a history of prior significant staphylococcal infection that resulted in the [id number] amputation to the right leg is directly related to his poorly controlled diabetes over the years the last hemoglobin A1c 12.2. imaging studies revealed evidence of abnormal gallbladder. He has been seen by surgery and constantly was taken to the operating room where a stone was noted to be obstructing the common bile duct. Other than some nausea he is feeling better. Vancomycin will be continued until we have further culture data. Zosyn added for now given the infectious process Cultures are in process. Maneuvers to improve his hydration and nausea have been given. He is feeling better this evening. He had a leukocytosis that could be related to the acute viral event at this time. A CK will be obtained to evaluate for muscular injury. Status: Acute (2) Gastroenteritis Status: Acute (3) End stage renal disease on dialysis Status: Chronic (4) Poorly controlled type 2 diabetes mellitus with circulatory disorder Status: Acute
[2016-08-01] MEDS: HYDROmorphone 1 MG/ML 1 ML SYRINGE IVP PRN ×6 (00:33→21:00)
[2016-08-01] MEDS: SODIUM CHLORIDE 0.9% 1,000 ML IV SCH ×2 (01:00→08:25)
[2016-08-01] MEDS: PIPERACILLIN-TAZOBACTAM 3.375 GM in DEXTROSE/WATER 1 50ML.BAG IVPB SCH ×2 (05:18→17:15)
[2016-08-01] MEDS: DIALYSIS DEX INTRAPERIT SCH ×3 (06:05→17:43)
[2016-08-01 07:47] LABS: Glucose,Whole Blood 244 mg/dL (75-99)
[2016-08-01] MEDS: LEVOTHYROXINE 25 MCG TAB PO SCH (08:22)
[2016-08-01] MEDS: SODIUM BICARBONATE TAB 650 MG TAB PO SCH ×2 (08:22→20:26)
[2016-08-01] MEDS: levETIRAcetam 500 MG TAB PO SCH ×2 (08:22→20:26)
[2016-08-01] MEDS: acetaZOLAMIDE 250 MG TAB PO SCH (08:23)
[2016-08-01] MEDS: FOLIC ACID-VIT B COMPLEX-VIT C 1 CAP PO SCH (08:24)
[2016-08-01] MEDS: SEVELAMER 800 MG TAB PO SCH ×3 (08:24→17:11)
[2016-08-01] MEDS: INSULIN LISPRO (humaLOG) 300 UNIT/3 ML VIAL SQ SCH ×4 (08:24→21:50)
[2016-08-01] MEDS: GABAPENTIN 300 MG CAP PO SCH ×3 (08:24→21:50)
[2016-08-01] MEDS: AMIODARONE 200 MG TAB PO SCH ×2 (08:24→20:26)
[2016-08-01 09:19] LABS: Calcium 7.5 mg/dL (8.4-10.2); Potassium 4.4 mmol/L (3.5-5.1); Total Bilirubin 0.5 mg/dL (0.2-1.3); Total Protein 5.6 g/dL (6.3-8.2)
--- NOTE | 2016-08-01 09:43 | P.PN ---
Subjective complains of tremors. Says this is similar to when he would have a seizure. Alert abdominal pain is better even with the Pd exchanges. Objective - Vital Signs Vital signs: Vital Signs Temp 97.8 F 08/01/16 07:00 Pulse 79 08/01/16 07:00 Resp 20 08/01/16 07:00 BP 124/85 08/01/16 07:00 Pulse Ox 97 08/01/16 07:00 Intake & Output 07/31/16 08/01/16 08/01/16 18:59 06:59 18:59 Intake Total 1000 210 Output Total 20 100 Balance 980 110 Weight 89 kg 89 kg Intake: IV 1000 Intake, IV Titration 210 Amount Piperacillin-Tazobactam 3 100 .375 gm In Dextrose/Water 1 50ml.bag @ 12.5 mls/hr IVPB Q12H TRAE Rx#: [id number] Sodium Chloride 0.9% 1, 110 000 ml @ 70 mls/hr IV . [id number] TRAE Rx#:[id number] Output: Emesis 100 Estimated Blood Loss 20 Other: Voiding Method Urinal Urinal # Voids 0 0 - Constitutional General appearance: Present: cooperative, no acute distress - Respiratory Respiratory: bilateral: CTA - Cardiovascular Rhythm: regular Heart sounds: normal: S1, S2 - Peripheral edema leg Peripheral Edema: bilateral: None - Gastrointestinal General gastrointestinal: Present: soft, tenderness Localized gastrointestinal: tender: diffuse - Labs CBC & Chem 7: 07/28/16 23:05 07/30/16 08:21 Labs: Abnormal Lab Results - Last 24 Hours (Table) 07/31/16 07/31/16 07/31/16 Range/Units 12:09 17:53 21:38 POC Glucose (mg/dL) 143 H 182 H 247 H (75-99) mg/dL 08/01/16 Range/Units 07:33 POC Glucose (mg/dL) 244 H (75-99) mg/dL Assessment and Plan Plan: #1. End-stage renal disease maintained on peritoneal dialysis. #2. Fever. Questionable viral syndrome. No evidence of peritonitis at this time. Also question of acute cholecystitis. #3. Anemia of chronic kidney disease. Iron replete. #4. Chronic kidney disease mineral bone disease. #5. Insulin-dependent diabetes mellitus. Plan: Maintain IV fluids at 40 mL an hour. Follow-up peritoneal fluid culture. No evidence of peritonitis at this time. Maintain Aranesp. Maintain Renvela with meals. Nephrocaps daily. Continue LOW Volume PD 500ml 6 hours. Consult neurology for tremors/seizure disorders. d/c diamox. Serum bicarb was low.
[2016-08-01 10:19] LABS: Basophils % (A) 0 %; CH 29.9; CHCM 33.7; Eosinophils # (A) 0.1 k/uL (0-0.7); Eosinophils % (A) 1 %; HCT 28.7 % (39.0-53.0); HDW 3.22; HGB 9.4 gm/dL (13.0-17.5); Luc # (Auto) 0.11; Luc % (Auto) 1; Lymphocytes # (A) 0.8 k/uL (1.0-4.8); Lymphocytes % (A) 8 %; MCHC 32.6 g/dL (31.0-37.0); MCV 88.9 fL (80.0-100.0); Monocytes % (A) 9 %; Neutrophils # (A) 8.6 k/uL (1.3-7.7); Neutrophils % (A) 81 %; RBC 3.23 m/uL (4.30-5.90); RDW 13.5 % (11.5-15.5); WBC 10.6 k/uL (3.8-10.6); WBC (Perox) 11.94
[2016-08-01 12:05] LABS: Glucose,Whole Blood 200 mg/dL (75-99)
[2016-08-01 12:29] LABS: Manual Review Performed
--- NOTE | 2016-08-01 13:03 | P.PN ---
Subjective Principal diagnosis: Acute cholecystitis The patient is postop day 1 status post cholecystectomy for acute cholecystitis with cystic duct obstruction. His right upper quadrant pain is improved. He has mild incisional pain. He is undergoing peritoneal dialysis. No reports of fevers or chills this morning. Objective - Vital Signs Vital signs: Vital Signs Temp 97.8 F 08/01/16 07:00 Pulse 75 08/01/16 12:00 Resp 16 08/01/16 12:00 BP 147/83 08/01/16 12:00 Pulse Ox 97 08/01/16 11:55 Intake & Output 07/31/16 08/01/16 08/01/16 18:59 06:59 18:59 Intake Total 1000 210 Output Total 20 100 Balance 980 110 Weight 89 kg 89 kg 89 kg Intake: IV 1000 Intake, IV Titration 210 Amount Piperacillin-Tazobactam 3 100 .375 gm In Dextrose/Water 1 50ml.bag @ 12.5 mls/hr IVPB Q12H TRAE Rx#: [id number] Sodium Chloride 0.9% 1, 110 000 ml @ 70 mls/hr IV . [id number] TRAE Rx#:[id number] Output: Emesis 100 Estimated Blood Loss 20 Other: Voiding Method Urinal Urinal Urinal # Voids 0 0 - Exam GENERAL: Well developed and in no acute distress. Pleasant. HEENT: No sclera icterus. Extraocular movements grossly intact. Moist buccal mucosa. Head is atraumatic, normocephalic. Hears conversational speech. No nasal drainage. NECK: Supple without lymphadenopathy. No JV distention. CHEST: Non-labored respirations and equal bilateral excursions. CARDIOVASCULAR: Regular rate and rhythm. Palpable 2+ radial pulses. ABDOMEN: Soft, undergoing peritoneal dialysis. Incisions clean dry and intact with Dermabond. No signs of infection cellulitis ,redness or erythema. No peritoneal signs. NEUROLOGIC: No focal or lateralizing signs. PSYCH: Appropriate affect. Alert and oriented to person, place and time. - Labs CBC & Chem 7: 08/01/16 09:17 08/01/16 08:45 Labs: Abnormal Lab Results - Last 24 Hours (Table) 07/31/16 07/31/16 08/01/16 Range/Units 17:53 21:38 07:33 RBC (4.30-5.90) m/uL Hgb (13.0-17.5) gm/dL Hct (39.0-53.0) % Neutrophils # (1.3-7.7) k/uL Lymphocytes # (1.0-4.8) k/uL Sodium (137-145) mmol/L Carbon Dioxide (22-30) mmol/L BUN (9-20) mg/dL Creatinine (0.66-1.25) mg/dL Glucose (74-99) mg/dL POC Glucose (mg/dL) 182 H 247 H 244 H (75-99) mg/dL Calcium (8.4-10.2) mg/dL Total Protein (6.3-8.2) g/dL Albumin (3.5-5.0) g/dL 08/01/16 08/01/16 08/01/16 Range/Units 08:45 09:17 11:50 RBC 3.23 L (4.30-5.90) m/uL Hgb 9.4 L (13.0-17.5) gm/dL Hct 28.7 L (39.0-53.0) % Neutrophils # 8.6 H (1.3-7.7) k/uL Lymphocytes # 0.8 L (1.0-4.8) k/uL Sodium 136 L (137-145) mmol/L Carbon Dioxide 21 L (22-30) mmol/L BUN 54 H (9-20) mg/dL Creatinine 10.68 H* (0.66-1.25) mg/dL Glucose 232 H (74-99) mg/dL POC Glucose (mg/dL) 200 H (75-99) mg/dL Calcium 7.5 L (8.4-10.2) mg/dL Total Protein 5.6 L (6.3-8.2) g/dL Albumin 2.8 L (3.5-5.0) g/dL Assessment and Plan (1) Acute cholecystitis due to biliary calculus Status: Acute (2) Peritoneal dialysis catheter in situ Status: Chronic (3) Diabetes type 2, uncontrolled Status: Chronic (4) Below knee amputation status Status: Chronic (5) Gallbladder sludge Status: Acute (6) Gastroparesis Status: Chronic (7) HTN (hypertension) Status: Chronic (8) High risk for readmission Status: Chronic (9) PVD (peripheral vascular disease) Status: Chronic (10) Chronic renal failure Status: Chronic (11) End stage renal disease on dialysis Status: Chronic (12) History of myocardial infarction Status: Chronic Plan: 1. Clinically he is doing well from a surgical standpoint. 2. Management of peritoneal dialysis per nephrology. 3. Patient may follow up as outpatient. 4. Patient clear from a surgical standpoint for discharge when medically stable.
[2016-08-01] MEDS: ONDANSETRON 4 MG/2 ML VIAL IVP PRN (14:36)
[2016-08-01 17:34] LABS: Glucose,Whole Blood 192 mg/dL (75-99)
--- NOTE | 2016-08-01 19:56 | PN ---
DATE OF SERVICE: 08/01/2016 I am covering for Dr. José Cm. This 45-year-old gentleman admitted with acute cholecystitis and sepsis, underwent laparoscopic cholecystectomy. The patient has multiple medical problems, including Dr. Sy, Dr. Feliciano and Dr. Arias. The patient had cystic duct obstruction. The patient also had abnormal myoclonic type of movements, at this time is being closely monitored, peritoneal dialysis has been continued. PAST MEDICAL HISTORY: Reviewed. REVIEW OF SYSTEMS: CARDIOVASCULAR: No angina, palpitations. RESPIRATORY: No cough. No hemoptysis. GI: As mentioned earlier. : As mentioned earlier. NERVOUS: As mentioned earlier. Current medications are reviewed and include: 1. Tylenol 650 every 6 hours p.r.n. 2. Cordarone 200 mg b.i.d. 3. Lipitor 80 mg at bedtime. 5. Neurontin 300 mg t.i.d. 6. Dilaudid 1 mg q.4 p.r.n. 7. Lantus 10 units subcu at bedtime. 8. Humalog. 9. Keppra. 10. Synthroid. 11. Nephrocaps. 12. Zofran. 13. Renvela. 14. Sodium bicarb. PHYSICAL EXAM: Patient is alert and oriented x2. Pulse is 73, blood pressure 148/76m respirations 16, temperature 97.4, pulse ox 99% on room air. HEENT: Conjunctivae normal. Oral mucosa moist. Neck is no jugular venous distension or carotid bruits. No lymph node enlargement. CARDIOVASCULAR: S1 and S2 muffled. No S3. No S4. RESPIRATORY: Breath sounds diminished in the bases. A few scattered rhonchi and crackles. Abdomen is soft. Peritoneal dialysis. LEGS: Minimal edema. NERVOUS SYSTEM: Diffusely weak. Abdomen is soft, status post surgery. Labs investigation at this time shows WBC 10.6, hemoglobin is 9.4. Sodium 136, creatinine is 10.68. Albumin is 2.8. ASSESSMENT: 1. Acute cholecystitis with cystic duct obstruction secondary to gallstones with acute sepsis present, on admission. 2. Status post laparoscopic cholecystectomy. 3. End-stage renal disease on peritoneal dialysis with chronic kidney disease stage 5. 4. History of deep venous thrombosis. 5. History of coronary artery disease. 6. Diabetes mellitus type 2, uncontrolled. 7. Abnormal movements, possible myoclonic jerks. 8. Change in mental status, metabolic encephalopathy, multifactorial. 9. History of gastroesophageal reflux disease. 10. Diabetic gastropathy. 11. Hemoglobin A1c to 12.2. 12. Hyponatremia. 13. Increased WBC. 14. Anemia, anemia or chronic disease. 15. FULL CODE. RECOMMENDATIONS AND DISCUSSION: In this 45-year-old gentleman who presented with multiple complex medical issues, we will monitor the patient closely, continue the current medications. Continue with symptomatic treatment. Continue with low-volume peritoneal dialysis per Nephrology. Otherwise, the patient is on Zosyn and vancomycin. Continue to monitor. Neurology consultation for abnormal movements, rule out a seizure disorder, myoclonic jerks seen as a possibility. I would recommend continuing the vitamin supplementation and continue to monitor. Other than that, I would add thiamine to the current regimen and I would also recommend a Neurontin level also. The prognosis is guarded because of multiple complex medical issues. Will continue to monitor and follow with multiple consultants. Further recommendations to follow. MTDD
[2016-08-01] MEDS: ATORVASTATIN 80 MG TAB PO SCH (20:26)
[2016-08-01 21:45] LABS: Glucose,Whole Blood 195 mg/dL (75-99)
[2016-08-01] MEDS: INSULIN GLARGINE 100 UNIT/ML 10 ML VIAL SQ SCH (21:49)
[2016-08-02] MEDS: DIALYSIS DEX INTRAPERIT SCH ×5 (00:23→18:48)
[2016-08-02] MEDS: HYDROmorphone 1 MG/ML 1 ML SYRINGE IVP PRN ×5 (01:01→22:29)
[2016-08-02] MEDS: SODIUM CHLORIDE 0.9% 1,000 ML IV SCH (02:24)
[2016-08-02] MEDS: PIPERACILLIN-TAZOBACTAM 3.375 GM in DEXTROSE/WATER 1 50ML.BAG IVPB SCH ×2 (05:16→17:53)
[2016-08-02 07:50] LABS: Glucose,Whole Blood 169 mg/dL (75-99)
[2016-08-02 08:44] LABS: Basophils % (A) 0 %; CH 29.1; CHCM 31.2; Eosinophils # (A) 0.3 k/uL (0-0.7); Eosinophils % (A) 3 %; HCT 25.2 % (39.0-53.0); HDW 3.08; Hypochromasia Moderate; Luc # (Auto) 0.17; Luc % (Auto) 2; Lymphocytes # (A) 0.7 k/uL (1.0-4.8); Lymphocytes % (A) 9 %; MCH 29.3 pg (25.0-35.0); MCHC 31.3 g/dL (31.0-37.0); MCV 93.6 fL (80.0-100.0); Mean Platelet Volume 6.8; Monocytes # (A) 0.8 k/uL (0-1.0); Monocytes % (A) 9 %; Neutrophils # (A) 6.7 k/uL (1.3-7.7); Neutrophils % (A) 77 %; RBC 2.69 m/uL (4.30-5.90); RDW 13.5 % (11.5-15.5); WBC 8.7 k/uL (3.8-10.6); WBC (Perox) 8.81
--- NOTE | 2016-08-02 08:45 | P.PN ---
Subjective Principal diagnosis: mild diffuse abdominal pain. S/P LAp Renee. Cleared by surgery yesterday. Performing low volume 500ml q 6 hour PD exchanges. He is tolerating that ok. Objective - Vital Signs Vital signs: Vital Signs Temp 97.2 F L 08/02/16 07:00 Pulse 75 08/02/16 07:00 Resp 20 08/02/16 07:00 BP 119/71 08/02/16 07:00 Pulse Ox 98 08/02/16 07:00 Intake & Output 08/01/16 08/02/16 08/02/16 18:59 06:59 18:59 Output Total 100 Balance -100 Weight 89 kg 91 kg Output: Urine 100 Other: Voiding Method Urinal Urinal # Voids 0 1 - Constitutional General appearance: Present: no acute distress - Respiratory Respiratory: bilateral: CTA - Cardiovascular Rhythm: regular Heart sounds: normal: S1, S2 - Peripheral edema leg Peripheral Edema: bilateral: Trace - Gastrointestinal General gastrointestinal: Present: tenderness Localized gastrointestinal: tender: diffuse - Labs CBC & Chem 7: 08/01/16 09:17 08/01/16 08:45 Labs: Abnormal Lab Results - Last 24 Hours (Table) 08/01/16 08/01/16 08/01/16 Range/Units 08:45 09:17 11:50 RBC 3.23 L (4.30-5.90) m/uL Hgb 9.4 L (13.0-17.5) gm/dL Hct 28.7 L (39.0-53.0) % Neutrophils # 8.6 H (1.3-7.7) k/uL Lymphocytes # 0.8 L (1.0-4.8) k/uL Sodium 136 L (137-145) mmol/L Carbon Dioxide 21 L (22-30) mmol/L BUN 54 H (9-20) mg/dL Creatinine 10.68 H* (0.66-1.25) mg/dL Glucose 232 H (74-99) mg/dL POC Glucose (mg/dL) 200 H (75-99) mg/dL Calcium 7.5 L (8.4-10.2) mg/dL Total Protein 5.6 L (6.3-8.2) g/dL Albumin 2.8 L (3.5-5.0) g/dL 08/01/16 08/01/16 08/02/16 Range/Units 17:23 21:30 07:40 RBC (4.30-5.90) m/uL Hgb (13.0-17.5) gm/dL Hct (39.0-53.0) % Neutrophils # (1.3-7.7) k/uL Lymphocytes # (1.0-4.8) k/uL Sodium (137-145) mmol/L Carbon Dioxide (22-30) mmol/L BUN (9-20) mg/dL Creatinine (0.66-1.25) mg/dL Glucose (74-99) mg/dL POC Glucose (mg/dL) 192 H 195 H 169 H (75-99) mg/dL Calcium (8.4-10.2) mg/dL Total Protein (6.3-8.2) g/dL Albumin (3.5-5.0) g/dL Assessment and Plan Plan: #1. End-stage renal disease maintained on peritoneal dialysis. --continue low volume PD 500ml q 6hours. #2. s/p Lap cholecystectemy. Pain control. Surgery cleared him for discharge. #3. Anemia of chronic kidney disease. Iron replete. #4. Chronic kidney disease mineral bone disease. #5. Insulin-dependent diabetes mellitus.
[2016-08-02 08:57] LABS: HGB 7.9 gm/dL (13.0-17.5)
[2016-08-02] MEDS: AMIODARONE 200 MG TAB PO SCH ×2 (09:05→20:49)
[2016-08-02] MEDS: GABAPENTIN 300 MG CAP PO SCH (09:05)
[2016-08-02] MEDS: FOLIC ACID-VIT B COMPLEX-VIT C 1 CAP PO SCH (09:05)
[2016-08-02] MEDS: INSULIN LISPRO (humaLOG) 300 UNIT/3 ML VIAL SQ SCH ×4 (09:05→22:29)
[2016-08-02] MEDS: SODIUM BICARBONATE TAB 650 MG TAB PO SCH ×2 (09:05→20:49)
[2016-08-02] MEDS: SEVELAMER 800 MG TAB PO SCH ×3 (09:05→17:53)
[2016-08-02] MEDS: LEVOTHYROXINE 25 MCG TAB PO SCH (09:05)
[2016-08-02] MEDS: ONDANSETRON 4 MG/2 ML VIAL IVP PRN ×2 (09:11→20:54)
[2016-08-02 09:13] LABS: Calcium 6.9 mg/dL (8.4-10.2); Potassium 4.1 mmol/L (3.5-5.1); Total Bilirubin 0.4 mg/dL (0.2-1.3)
[2016-08-02] MEDS: levETIRAcetam 500 MG TAB PO SCH ×2 (12:13→20:49)
[2016-08-02] MEDS: THIAMINE 100 MG TAB PO SCH (12:13)
[2016-08-02 12:53] LABS: Glucose,Whole Blood 84 mg/dL (75-99)
--- NOTE | 2016-08-02 14:04 | XR ---
"Abdomen 2 view HISTORY: Peritoneal dialysis catheter placement 2 views of the abdomen submitted on 3 images. Correlation to prior abdomen 23 July 2015 There is pneumoperitoneum presumably due to patient's dialysis catheter. Surgical clips are present i n the right upper quadrant. Vertebroplasty changes present at T12. Dialysis catheter is present in th e left hemipelvis. No evident bowel obstruction. The heart is enlarged. IMPRESSION: Pneumoperitoneum is presumably introduced due to patient's peritoneal dialysis, correlate clinically. Correlate to exclude peritonitis. Report related to patient's nurse at the time of inter pretation of the exam 02 August 2016 1404 hours A Red message has been communicated to José Cm MD via the [employer] | Critical Result sy stem on 08/02/2016 1:57 PM, Message ID [id number]."
--- NOTE | 2016-08-02 14:11 | P.CNNES ---
History of Present Illness Consult date: 08/02/16 Requesting physician: José Cm Reason for Consult: Myoclonic movement History of Present Illness: Patient is a pleasant 45-year-old male who is being evaluated by the neurology service on 08/02/2016 per the request of Dr. Cm for myoclonic movements. Patient is currently status post laparoscopic cholecystectomy. Patient has a long history of end-stage renal disease on CAPD. Patient has history of poorly controlled type 2 diabetes, CAD, hypertension, hyperlipidemia , seizure disorder. Patient states his last seizure was January 2016. He has been controlled on his current medications of Keppra and Neurontin. Patient and staff inform me, following surgery, he noticed an increase in myoclonic jerking. At the time of my evaluation, patient is currently receiving CAPD. Patient is resting comfortably in bed and appears to be in no acute distress. Review of Systems REVIEW OF SYSTEMS: Otherwise unremarkable and noncontributory. Past Medical History Past Medical History: Coronary Artery Disease (CAD), Diabetes Mellitus, Dialysis , Deep Vein Thrombosis (DVT), GERD/Reflux, Hyperlipidemia, Hypertension, Myocardial Infarction (AL), Musculoskeletal Disorder, Renal Disease, Seizure Disorder Additional Past Medical History / Comment(s): Diabetic gastropathy, End stage renal disease currently on peritoneal dialysis , peripheral neuropathy, seizure disorder, compression fracture of the vertebral along with known history of this disease, blood clot from IV line in the upper extremity on the left, coronary artery disease, previous myocardial infarction, insulin- dependent diabetes mellitus, GE reflux, gastritis, chronic anemia, cataracts, currently on peritoneal dialysis, peripheral vascular disease with previous amputation involving a below-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 Last Myocardial Infarction Date:: 2012 History of Any Multi-Drug Resistant Organisms: MRSA Date of last positivie culture/infection: 04/08/15 MDRO Source:: Blood & Left Foot Past Surgical History: Orthopedic Surgery Additional Past Surgical History / Comment(s): amputation right toes, BKA right leg 2013, GEROGE CATARACTS,VITRECTOMY,GEORGE RETINAL SX Past Anesthesia/Blood Transfusion Reactions: No Reported Reaction Additional Past Anesthesia/Blood Transfusion Reaction / Comment(s): VERTIGO Past Psychological History: No Psychological Hx Reported Additional Psychological History / Comment(s): Single. Tobacco smoker. Denies significant alcohol or recreational drug use. Originally was from the [place] area and then moved down to [place]. Is now moved back to be with his family members in [place] since 2014. He has no experience. He denies any significant travel history. Brother has a pet dog in the home in which he lives. Relates that his 13-year-old daughter 2 years ago from suicide at the age of 13 Smoking Status: Never smoker Past Alcohol Use History: None Reported Past Drug Use History: None Reported - Past Family History Father Family Medical History: Cancer Additional Family Medical History / Comment(s): CANCER FROM [employer] Mother History Unknown: Yes Family Medical History: Cancer, Supraventricular Tachycardia (SVT) Additional Family Medical History / Comment(s): LUNG CANCER(SMOKER) Medications and Allergies Home Medications Medication Instructions Recorded Confirmed Type Atorvastatin [Lipitor] 80 mg PO HS 04/08/15 07/31/16 History Calcium Acetate [PhosLo] 1,334 mg PO TID-W/MEALS 04/08/15 07/31/16 History Fluticasone Propionate [Flonase 2 spray EA NOSTRIL DAILY PRN 04/08/15 07/31/16 History Allergy Relief] Folic Acid 1 mg PO DAILY 04/08/15 07/31/16 History Folic Acid-Vit B Complex-Vit C 1 cap PO HS 04/08/15 07/31/16 History [Nephrocaps] Gabapentin [Neurontin] 300 mg PO TID 04/08/15 07/31/16 History Insulin Glargine [Lantus] 10 unit SQ HS 04/08/15 07/31/16 History Levothyroxine Sodium [Synthroid] 25 mcg PO DAILY 04/08/15 07/31/16 History Insulin Aspart [NovoLOG] See Protocol SQ AC-TID 05/21/15 07/31/16 History levETIRAcetam [Keppra] 750 mg PO Q12HR 05/21/15 07/31/16 History Amiodarone [Cordarone] 200 mg PO BID 01/20/16 07/31/16 History Famotidine [Pepcid] 20 mg PO BID 01/20/16 07/31/16 History Sevelamer [Renvela] 1,600 mg PO AC-TID 01/20/16 07/31/16 History acetaZOLAMIDE [Diamox] 125 mg PO BID 01/20/16 07/31/16 History Itsctqrd-Nfptjvdokr-Noyn Oint 1 applic TOPICAL DAILY 07/28/16 07/31/16 History [Triple Antibiotic Ointment] amLODIPine [Norvasc] 10 mg PO DAILY 07/28/16 07/31/16 History Allergies Allergy/AdvReac Type Severity Reaction Status Date / Time No Known Allergies Allergy Verified 07/28/16 22:49 Physical Examination - Vital Signs Vital Signs: Vital Signs Temp Pulse Pulse Resp BP BP Pulse Ox 08/02/16 12:00 89 20 123/77 96 08/02/16 08:58 98 08/02/16 07:00 97.2 F L 75 20 119/71 98 08/02/16 05:44 97.5 F L 75 75 17 110/73 110/73 96 08/02/16 00:00 97 F L 83 17 129/87 96 08/01/16 23:00 97 F L 83 17 129/87 96 08/01/16 17:44 74 124/71 08/01/16 15:00 97.2 F L 73 16 142/76 99 Intake and Output 08/01/16 08/02/16 08/02/16 22:59 06:59 14:59 Output Total 100 Balance -100 Output: Urine 100 Other: Voiding Method Urinal # Voids 0 1 Weight 91 kg PHYSICAL EXAM: GENERAL APPEARANCE: Patient is a male who appears to be in no acute distress. HEENT: Normocephalic, atraumatic, no facial asymmetry is seen. Neck is supple with no masses felt. CARDIOVASCULAR: Regular rate and rhythm. ABDOMEN: Soft, tender due to recent surgery, CAPD catheter in place EXTREMITIES: Right lower extremity with amputation of toes, left lower extremity BKA NEUROLOGICAL EXAM: Patient is awake, alert, and oriented 3. Speech and language are normal. No facial asymmetry is seen on cranial nerve testing. Strength is 5-/5 in bilateral upper extremities and 4/5 in bilateral lower extremities. Sensation to light touch is normal in all 4 extremities. Myoclonic movements are noted to all 4 extremities. Myoclonic jerking is greater in upper extremities. Results - Laboratory Findings CBC and BMP: 08/02/16 08:21 08/02/16 08:21 Abnormal Lab Findings: Abnormal Labs 07/29/16 07/29/16 07/29/16 06:21 06:21 06:21 RBC Hgb Hct Neutrophils # Lymphocytes # Sodium Carbon Dioxide BUN Creatinine Glucose POC Glucose (mg/dL) Hemoglobin A1c 12.2 H Plasma Lactic Acid Massimo 0.5 L Calcium Phosphorus 5.7 H Iron 41 L TIBC 177 L Ferritin 901 H Creatine Kinase Total Protein Albumin 07/29/16 07/29/16 07/29/16 07:30 12:32 16:56 RBC Hgb Hct Neutrophils # Lymphocytes # Sodium Carbon Dioxide BUN Creatinine Glucose POC Glucose (mg/dL) 140 H 171 H 145 H Hemoglobin A1c Plasma Lactic Acid Massimo Calcium Phosphorus Iron TIBC Ferritin Creatine Kinase Total Protein Albumin 07/29/16 07/30/16 07/30/16 20:23 07:27 08:21 RBC Hgb Hct Neutrophils # Lymphocytes # Sodium 135 L Carbon Dioxide 21 L BUN 52 H Creatinine 10.01 H* Glucose 197 H POC Glucose (mg/dL) 173 H 210 H Hemoglobin A1c Plasma Lactic Acid Massimo Calcium 7.4 L Phosphorus Iron TIBC Ferritin Creatine Kinase 281 H Total Protein Albumin 07/30/16 07/30/16 07/30/16 12:39 17:29 21:19 RBC Hgb Hct Neutrophils # Lymphocytes # Sodium Carbon Dioxide BUN Creatinine Glucose POC Glucose (mg/dL) 219 H 173 H 138 H Hemoglobin A1c Plasma Lactic Acid Massimo Calcium Phosphorus Iron TIBC Ferritin Creatine Kinase Total Protein Albumin 07/31/16 07/31/16 07/31/16 07:51 12:09 17:53 RBC Hgb Hct Neutrophils # Lymphocytes # Sodium Carbon Dioxide BUN Creatinine Glucose POC Glucose (mg/dL) 161 H 143 H 182 H Hemoglobin A1c Plasma Lactic Acid Massimo Calcium Phosphorus Iron TIBC Ferritin Creatine Kinase Total Protein Albumin 07/31/16 08/01/16 08/01/16 21:38 07:33 08:45 RBC Hgb Hct Neutrophils # Lymphocytes # Sodium 136 L Carbon Dioxide 21 L BUN 54 H Creatinine 10.68 H* Glucose 232 H POC Glucose (mg/dL) 247 H 244 H Hemoglobin A1c Plasma Lactic Acid Massimo Calcium 7.5 L Phosphorus Iron TIBC Ferritin Creatine Kinase Total Protein 5.6 L Albumin 2.8 L 08/01/16 08/01/16 08/01/16 09:17 11:50 17:23 RBC 3.23 L Hgb 9.4 L Hct 28.7 L Neutrophils # 8.6 H Lymphocytes # 0.8 L Sodium Carbon Dioxide BUN Creatinine Glucose POC Glucose (mg/dL) 200 H 192 H Hemoglobin A1c Plasma Lactic Acid Massimo Calcium Phosphorus Iron TIBC Ferritin Creatine Kinase Total Protein Albumin 08/01/16 08/02/16 08/02/16 21:30 07:40 08:21 RBC Hgb Hct Neutrophils # Lymphocytes # Sodium 135 L Carbon Dioxide 20 L BUN 56 H Creatinine 10.79 H* Glucose 151 H POC Glucose (mg/dL) 195 H 169 H Hemoglobin A1c Plasma Lactic Acid Massimo Calcium 6.9 L Phosphorus Iron TIBC Ferritin Creatine Kinase Total Protein 5.0 L Albumin 2.5 L 08/02/16 08:21 RBC 2.69 L Hgb 7.9 L D Hct 25.2 L Neutrophils # Lymphocytes # 0.7 L Sodium Carbon Dioxide BUN Creatinine Glucose POC Glucose (mg/dL) Hemoglobin A1c Plasma Lactic Acid Massimo Calcium Phosphorus Iron TIBC Ferritin Creatine Kinase Total Protein Albumin Assessment and Plan Plan: Impression: 1. Myoclonic jerking 2. End-stage renal disease on CAPD 3. Status post laparoscopic cholecystectomy 4. 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 Uncontrolled type 2 diabetes Recommendations: It does appear that patient is having myoclonic movements in all 4 extremities. These movements are not consistent with seizure activity. I recommend starting Depakote 250 mg 3 times a day. As for his seizure disorder , continue current Keppra and Neurontin dosing. Maintain seizure precautions. Continue neurological checks. I will continue to follow with you. Further recommendations to follow. Thank you for allowing me to participate in the care of your patient. Feel free to call me with any questions or concerns. I performed an examination of the patient and discussed the management with the [facility]. I have reviewed the [facility] notes and agree with the findings and plan of care.
[2016-08-02] MEDS ORDERED: LACTULOSE 20 GM/30 ML CUP PO ONE (14:12)
[2016-08-02] MEDS ORDERED: SENNOSIDES 8.6 MG TAB PO PRN (14:13)
[2016-08-02] MEDS: DIVALPROEX 250 MG TABLET.DR PO SCH ×2 (15:07→22:52)
[2016-08-02] MEDS ORDERED: LORazepam 1 MG TAB PO PRN (15:33)
[2016-08-02] MEDS ORDERED: LORazepam 2 MG/ML SYRINGE IV PRN (15:38)
[2016-08-02] MEDS: LORazepam 0.5 MG TAB PO PRN (16:30)
[2016-08-02] MEDS: GABAPENTIN 100 MG CAP PO SCH ×2 (16:33→22:29)
[2016-08-02 16:39] LABS: Glucose,Whole Blood 128 mg/dL (75-99)
[2016-08-02] MEDS ORDERED: FLUTICASONE 50MCG/SPRAY NASAL 16GM EA NOSTRIL PRN (18:12)
--- NOTE | 2016-08-02 19:10 | CT ---
EXAMINATION TYPE: CT brain wo con DATE OF EXAM: 08/02/2016 6:47 PM COMPARISON: Prior head CT 23 July 2015 HISTORY: Myoclonus. CT DLP: 1159.00 mGycm Automated exposure control for dose reduction was used. FINDINGS: There is no acute intracranial hemorrhage, mass effect, or midline shift identified. The ventricles and sulci are within normal limits in size. The globes are intact and the visualized sinuses are rem arkable for inflammatory change in the right maxillary sinus, there is likely a mucus retention cyst. . IMPRESSION: No acute intracranial hemorrhage, mass effect, or midline shift is seen.
[2016-08-02] MEDS ORDERED: VANCOMYCIN 1,500 MG in SODIUM CHLORIDE 0.9% 250 ML IVPB ONE (20:00)
[2016-08-02] MEDS: ATORVASTATIN 80 MG TAB PO SCH (20:49)
[2016-08-02 21:46] LABS: Glucose,Whole Blood 155 mg/dL (75-99)
[2016-08-02] MEDS: INSULIN GLARGINE 100 UNIT/ML 10 ML VIAL SQ SCH (22:29)
[2016-08-03] MEDS: DIALYSIS DEX INTRAPERIT SCH ×5 (00:26→18:25)
[2016-08-03] MEDS: ACETAMINOPHEN TAB 325 MG TAB PO PRN (01:44)
[2016-08-03] MEDS: HYDROmorphone 1 MG/ML 1 ML SYRINGE IVP PRN ×3 (05:00→16:29)
[2016-08-03] MEDS: PIPERACILLIN-TAZOBACTAM 3.375 GM in DEXTROSE/WATER 1 50ML.BAG IVPB SCH ×2 (05:44→18:13)
[2016-08-03 08:04] LABS: Glucose,Whole Blood 87 mg/dL (75-99)
[2016-08-03] MEDS: SEVELAMER 800 MG TAB PO SCH ×3 (08:36→17:59)
[2016-08-03] MEDS: levETIRAcetam 500 MG TAB PO SCH ×2 (08:37→21:21)
[2016-08-03] MEDS: DIVALPROEX 250 MG TABLET.DR PO SCH ×3 (08:38→21:21)
[2016-08-03] MEDS: SODIUM BICARBONATE TAB 650 MG TAB PO SCH ×2 (08:38→21:21)
[2016-08-03] MEDS: AMIODARONE 200 MG TAB PO SCH ×2 (08:38→21:22)
[2016-08-03] MEDS: GABAPENTIN 100 MG CAP PO SCH (08:38)
[2016-08-03] MEDS: THIAMINE 100 MG TAB PO SCH (08:38)
[2016-08-03] MEDS: FOLIC ACID-VIT B COMPLEX-VIT C 1 CAP PO SCH (08:39)
[2016-08-03] MEDS: LEVOTHYROXINE 25 MCG TAB PO SCH (08:39)
[2016-08-03] MEDS: INSULIN LISPRO (humaLOG) 300 UNIT/3 ML VIAL SQ SCH ×4 (08:39→21:22)
--- NOTE | 2016-08-03 09:38 | PN ---
DATE OF SERVICE: 08/02/2016 I am covering for Dr. José Cm. This 45-year-old gentleman was admitted with cholecystitis and sepsis underwent laparoscopic cholecystectomy surgery. The patient also on peritoneal dialysis. Dialysis return is slightly blood tinged and nephrology following the patient closely. The patient also has significant myoclonic jerks also. Neurontin levels were checked and neurology is following the patient closely. The patient mildly confused. Past medical history reviewed. REVIEW OF SYSTEMS: CARDIOVASCULAR: No angina. RESPIRATORY: As mentioned earlier. GASTROINTESTINAL: As mentioned earlier. : No dysuria. Nervous system: No numbness or weakness. Current medications are reviewed and include: 1. Tylenol 650 q6h p.r.n. 2. Cordarone 200 mg p.o. b.i.d. 3. Lipitor 80 mg q.h.s. 5. Aranesp. 6. Depakote 250 mg p.o. t.i.d. 7. Neurontin 300 mg p.o. t.i.d. 8. Dilaudid 1 mg q.4 p.r.n. 9. Lantus 10 units subcutaneously at bedtime. 10. Humalog scale. 11. Keppra 750 b.i.d. 12. Synthroid 25 mcg p.o. daily. 13. Ativan. 14. Zofran. 15. Senokot. 16. Renvela. 17. Sodium bicarb 18. Vitamin B1 100 mg p.o. daily. 19. Vancomycin. PHYSICAL EXAMINATION: The patient is alert and oriented x2. Pulse 89, blood pressure 120/77, respirations 20, temperature 97.4, pulse ox 94% on room air. HEENT: Conjunctivae normal. NECK: No jugular venous distention. CARDIOVASCULAR: S1, S2 muffled. RESPIRATORY: Breath sounds diminished at the bases. A few scattered rhonchi and crackles. ABDOMEN: Soft, nontender. Legs: No edema. No swelling. CENTRAL NERVOUS SYSTEM: No focal deficits. LABS: WBC 8.7, hemoglobin is 11.2, sodium 132, potassium 4.1 and creatinine is 10.79, albumin is 2.5. ASSESSMENT: 1. Acute cholecystitis with obstruction secondary to cholelithiasis, with acute sepsis, present on admission. 2. Status post laparoscopic cholecystectomy. 3. End stage renal disease, on peritoneal dialysis with chronic kidney disease stage V. 4. Multiple myoclonic jerks. 5. Change in mental status, metabolic encephalopathy, acute on chronic. 6. History of deep venous thrombosis. 7. History of coronary artery disease. 8. Diabetes mellitus type 2, uncontrolled. 9. Abnormal movements. 10. History of gastroesophageal reflux disease. 11. Diabetic gastropathy. 12. Hemoglobin A1c 12.2. 13. Hyponatremia. 14. Increased WBC. 15. Anemia, and anemia of chronic disease. 16. FULL CODE. RECOMMENDATIONS AND DISCUSSION: In this 45-year-old gentleman who presented with multiple complex medical issues, we will monitor the patient closely. Continue the current medications. Continue symptomatic treatment. Reduce the dose of Depakote and Neurontin as mentioned earlier. Continue the rest of the medications and I would also recommend to closely follow with nephrology. The possibility of regular hemodialysis an option to control the myoclonus which could be exacerbated renal failure per neurology. I would also recommend a CT scan of the head also to complete work-up. Further recommendations to follow. MTDD
[2016-08-03 10:07] LABS: Basophils % (A) 0 %; CH 29.3; CHCM 31.8; Eosinophils # (A) 0.3 k/uL (0-0.7); Eosinophils % (A) 3 %; HCT 25.9 % (39.0-53.0); HDW 3.16; HGB 8.2 gm/dL (13.0-17.5); Hypochromasia Slight; Luc # (Auto) 0.22; Luc % (Auto) 3; Lymphocytes # (A) 0.9 k/uL (1.0-4.8); Lymphocytes % (A) 11 %; MCH 29.2 pg (25.0-35.0); MCHC 31.5 g/dL (31.0-37.0); MCV 92.5 fL (80.0-100.0); Mean Platelet Volume 6.9; Monocytes # (A) 0.8 k/uL (0-1.0); Monocytes % (A) 10 %; Neutrophils # (A) 6.3 k/uL (1.3-7.7); Neutrophils % (A) 74 %; RDW 13.6 % (11.5-15.5); WBC 8.6 k/uL (3.8-10.6); WBC (Perox) 8.96
[2016-08-03 10:30] LABS: Calcium 6.6 mg/dL (8.4-10.2); Potassium 3.9 mmol/L (3.5-5.1); Total Bilirubin 0.4 mg/dL (0.2-1.3); Total Protein 4.9 g/dL (6.3-8.2)
--- NOTE | 2016-08-03 11:02 | P.PN ---
Subjective Patient is seen in follow-up for end-stage renal disease. He is maintained on peritoneal dialysis. Patient presented with nausea and vomiting. He underwent laparoscopic cholecystectomy on July 31. Denies chest pain or shortness of breath. He was constipated which is now resolved post lactulose. Vital signs are stable. General: The patient appeared well nourished and normally developed. HEENT: Head exam is unremarkable. Neck is without jugular venous distension. LUNGS: Lungs are clear to auscultation and percussion. Breath sounds decreased. HEART: Rate and Rhythm are regular. First and second heart sounds normal. No murmurs, rubs or gallops. ABDOMEN: Abdominal exam reveals normal bowel sounds. Non-tender and non- distended. No evidence of peritonitis. EXTREMITITES: No clubbing, cyanosis, or edema. Amputation noted. Objective - Vital Signs Vital signs: Vital Signs Temp 98 F 08/03/16 07:00 Pulse 91 08/03/16 07:00 Resp 20 08/03/16 07:00 BP 129/74 08/03/16 07:00 Pulse Ox 92 L 08/03/16 08:42 Intake & Output 08/02/16 08/03/16 08/03/16 18:59 06:59 18:59 Output Total 100 590 Balance -100 -590 Weight 92 kg Output: Urine 100 590 Other: Voiding Method Urinal Urinal # Bowel Movements 1 2 - Labs CBC & Chem 7: 08/03/16 09:43 08/03/16 09:43 Labs: Abnormal Lab Results - Last 24 Hours (Table) 08/01/16 08/02/16 08/02/16 Range/Units 16:53 16:23 21:13 RBC (4.30-5.90) m/uL Hgb (13.0-17.5) gm/dL Hct (39.0-53.0) % Lymphocytes # (1.0-4.8) k/uL Sodium (137-145) mmol/L Carbon Dioxide (22-30) mmol/L BUN (9-20) mg/dL Creatinine (0.66-1.25) mg/dL Glucose (74-99) mg/dL POC Glucose (mg/dL) 128 H 155 H (75-99) mg/dL Calcium (8.4-10.2) mg/dL Total Protein (6.3-8.2) g/dL Albumin (3.5-5.0) g/dL Gabapentin 36.1 H (2.0-12.0) ug/mL 08/03/16 08/03/16 Range/Units 09:43 09:43 RBC 2.80 L (4.30-5.90) m/uL Hgb 8.2 L (13.0-17.5) gm/dL Hct 25.9 L (39.0-53.0) % Lymphocytes # 0.9 L (1.0-4.8) k/uL Sodium 133 L (137-145) mmol/L Carbon Dioxide 21 L (22-30) mmol/L BUN 56 H (9-20) mg/dL Creatinine 11.04 H* (0.66-1.25) mg/dL Glucose 72 L (74-99) mg/dL POC Glucose (mg/dL) (75-99) mg/dL Calcium 6.6 L (8.4-10.2) mg/dL Total Protein 4.9 L (6.3-8.2) g/dL Albumin 2.4 L (3.5-5.0) g/dL Gabapentin (2.0-12.0) ug/mL Assessment and Plan Plan: Assessment: #1. End-stage renal disease maintained on peritoneal dialysis. #2. Fever. Questionable viral syndrome. No evidence of peritonitis at this time. Also question of acute cholecystitis status post laparoscopic cholecystectomy on July 31. #3. Anemia of chronic kidney disease. Iron replete. #4. Chronic kidney disease mineral bone disease. #5. Insulin-dependent diabetes mellitus. #6. Metabolic acidosis secondary to chronic kidney disease. #. Myoclonic jerking. Gabapentin level noted to be elevated. Dose has been appropriately decreased. Plan: Increase volume of peritoneal dialysis exchanges to 750 mL every 6 hours. Maintain Aranesp. Maintain Renvela with meals. Nephrocaps daily. Antibiotics per infectious disease recommendations. Maintain lactulose as needed for constipation. No evidence of peritonitis at this time. Maintain oral sodium bicarbonate supplementation.
[2016-08-03 11:57] LABS: Glucose,Whole Blood 86 mg/dL (75-99)
[2016-08-03] MEDS: LACTULOSE 20 GM/30 ML CUP PO SCH ×3 (16:02→21:22)
--- NOTE | 2016-08-03 16:21 | P.PN ---
Subjective Principal diagnosis: Patient is a 45-year-old male who is being followed by the neurology service for myoclonic movements. Patient has a history of end-stage renal disease on CAPD. Patient also has history of seizure disorder and has been on Keppra. Patient also has history of peripheral neuropathy and has been on gabapentin. Keppra and gabapentin levels have been drawn. Keppra levels within normal limits. Gabapentin level was elevated and gabapentin has been discontinued per nephrology. At the time of my evaluation, patient is resting comfortably in bed and myoclonic jerking continues but is decreased. Patient appears to be in no acute distress. Objective - Vital Signs Vital signs: Vital Signs Temp 97.3 F L 08/03/16 15:00 Pulse 94 08/03/16 15:00 Resp 19 08/03/16 15:00 BP 151/85 08/03/16 15:00 Pulse Ox 94 L 08/03/16 15:00 Intake & Output 08/02/16 08/03/16 08/03/16 18:59 06:59 18:59 Output Total 100 590 Balance -100 -590 Weight 92 kg Output: Urine 100 590 Other: Voiding Method Urinal Urinal # Voids 1 # Bowel Movements 1 2 - Exam PHYSICAL EXAM: GENERAL APPEARANCE: Patient is a male who appears to be in no acute distress. HEENT: Normocephalic, atraumatic, no facial asymmetry is seen. Neck is supple with no masses felt. CARDIOVASCULAR: Regular rate and rhythm. ABDOMEN: Nontender nondistended EXTREMITIES: Bilateral amputations noted NEUROLOGICAL EXAM: Patient is awake, alert, and oriented 3. Speech and language are normal. No facial asymmetry is seen on cranial nerve testing. Strength is 5-/5 in bilateral upper extremities and 4/5 in bilateral lower extremities. Sensation to light touch is normal in all 4 extremities. Myoclonic movements are noted to all 4 extremities. Mild tremors are noted in the upper extremities. No seizure-like activity is seen. - Labs CBC & Chem 7: 08/03/16 09:43 08/03/16 09:43 Labs: Abnormal Lab Results - Last 24 Hours (Table) 08/01/16 08/02/16 08/02/16 Range/Units 16:53 16:23 21:13 RBC (4.30-5.90) m/uL Hgb (13.0-17.5) gm/dL Hct (39.0-53.0) % Lymphocytes # (1.0-4.8) k/uL Sodium (137-145) mmol/L Carbon Dioxide (22-30) mmol/L BUN (9-20) mg/dL Creatinine (0.66-1.25) mg/dL Glucose (74-99) mg/dL POC Glucose (mg/dL) 128 H 155 H (75-99) mg/dL Calcium (8.4-10.2) mg/dL Total Protein (6.3-8.2) g/dL Albumin (3.5-5.0) g/dL Gabapentin 36.1 H (2.0-12.0) ug/mL 08/03/16 08/03/16 Range/Units 09:43 09:43 RBC 2.80 L (4.30-5.90) m/uL Hgb 8.2 L (13.0-17.5) gm/dL Hct 25.9 L (39.0-53.0) % Lymphocytes # 0.9 L (1.0-4.8) k/uL Sodium 133 L (137-145) mmol/L Carbon Dioxide 21 L (22-30) mmol/L BUN 56 H (9-20) mg/dL Creatinine 11.04 H* (0.66-1.25) mg/dL Glucose 72 L (74-99) mg/dL POC Glucose (mg/dL) (75-99) mg/dL Calcium 6.6 L (8.4-10.2) mg/dL Total Protein 4.9 L (6.3-8.2) g/dL Albumin 2.4 L (3.5-5.0) g/dL Gabapentin (2.0-12.0) ug/mL Assessment and Plan Plan: Impression: 1. Myoclonic jerking 2. End-stage renal disease on CAPD 3. Status post laparoscopic cholecystectomy 4. 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 Uncontrolled type 2 diabetes Recommendations: It does appear that patient is having myoclonic movements in all 4 extremities. These movements are not consistent with seizure activity. I recommend starting Depakote 250 mg 3 times a day. Keppra level was drawn and is within normal limits. Neurontin level was drawn and is elevated. Neurontin has been DC'd per nephrology. I recommend continuing Depakote as ordered. Maintain seizure precautions. Continue neurological checks. I will continue to follow with you on an as-needed basis. Feel free to call with any questions or concerns. I performed an examination of the patient and discussed the management with the TURRET LATHE SET UP OPERATOR. I have reviewed the TURRET LATHE SET UP OPERATOR notes and agree with the findings and plan of care.
[2016-08-03 17:34] LABS: Glucose,Whole Blood 94 mg/dL (75-99)
--- NOTE | 2016-08-03 19:08 | P.GSCN ---
History of Present Illness Consult date: 08/03/16 Reason for Consult: Malfunctioning PD catheter History of present illness: Patient hospitalized for abdominal pain. He underwent laparoscopic cholecystectomy on Wednesday. Since then he has had some issues with low volume return during his dialysis exchanges. He is only having dialysis exchanges of approximate 500 mL. Currently the nursing staff state they're getting between 2 and 300 mL out with each fill. Denies abdominal pain. Denies any thickening of his abdominal wall. His incisions are lean and dry. Review of Systems The patient denies any acute changes in his vision or hearing, no dysphagia or odynophagia, no chest pain or shortness of breath, no dysuria or hematuria, no headache, no runny nose, no rectal bleeding or melena, no unexplained weight loss Past Medical History Past Medical History: Coronary Artery Disease (CAD), Diabetes Mellitus, Dialysis , Deep Vein Thrombosis (DVT), GERD/Reflux, Hyperlipidemia, Hypertension, Myocardial Infarction ([place]), Musculoskeletal Disorder, Renal Disease, Seizure Disorder Additional Past Medical History / Comment(s): Diabetic gastropathy, End stage renal disease currently on peritoneal dialysis , peripheral neuropathy, seizure disorder, compression fracture of the vertebral along with known history of this disease, blood clot from IV line in the upper extremity on the left, coronary artery disease, previous myocardial infarction, insulin- dependent diabetes mellitus, GE reflux, gastritis, chronic anemia, cataracts, currently on peritoneal dialysis, peripheral vascular disease with previous amputation involving a below-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 Last Myocardial Infarction Date:: 2012 History of Any Multi-Drug Resistant Organisms: MRSA Year Discovered:: 04/08/15 MDRO Source:: Blood & Left Foot Past Surgical History: Orthopedic Surgery Additional Past Surgical History / Comment(s): amputation right toes, BKA right leg 2013, GEORGE CATARACTS,VITRECTOMY,GEORGE RETINAL SX Past Anesthesia/Blood Transfusion Reactions: No Reported Reaction Additional Past Anesthesia/Blood Transfusion Reaction / Comm: VERTIGO Past Psychological History: No Psychological Hx Reported Additional Psychological History / Comment(s): Single. Tobacco smoker. Denies significant alcohol or recreational drug use. Originally was from the [place] area and then moved down to [place]. Is now moved back to be with his family members in [place] since 2014. He has no experience. He denies any significant travel history. Brother has a pet dog in the home in which he lives. Relates that his 13-year-old daughter 2 years ago from suicide at the age of 13 Smoking Status: Never smoker Past Alcohol Use History: None Reported Past Drug Use History: None Reported - Past Family History Father Family Medical History: Cancer Additional Family Medical History / Comment(s): CANCER FROM [employer] Mother History Unknown: Yes Family Medical History: Cancer, Supraventricular Tachycardia (SVT) Additional Family Medical History / Comment(s): LUNG CANCER(SMOKER) Medications and Allergies Home Medications Medication Instructions Recorded Confirmed Type Atorvastatin [Lipitor] 80 mg PO HS 04/08/15 07/31/16 History Calcium Acetate [PhosLo] 1,334 mg PO TID-W/MEALS 04/08/15 07/31/16 History Fluticasone Propionate [Flonase 2 spray EA NOSTRIL DAILY PRN 04/08/15 07/31/16 History Allergy Relief] Folic Acid 1 mg PO DAILY 04/08/15 07/31/16 History Folic Acid-Vit B Complex-Vit C 1 cap PO HS 04/08/15 07/31/16 History [Nephrocaps] Gabapentin [Neurontin] 300 mg PO TID 04/08/15 07/31/16 History Insulin Glargine [Lantus] 10 unit SQ HS 04/08/15 07/31/16 History Levothyroxine Sodium [Synthroid] 25 mcg PO DAILY 04/08/15 07/31/16 History Insulin Aspart [NovoLOG] See Protocol SQ AC-TID 05/21/15 07/31/16 History levETIRAcetam [Keppra] 750 mg PO Q12HR 05/21/15 07/31/16 History Amiodarone [Cordarone] 200 mg PO BID 01/20/16 07/31/16 History Famotidine [Pepcid] 20 mg PO BID 01/20/16 07/31/16 History Sevelamer [Renvela] 1,600 mg PO AC-TID 01/20/16 07/31/16 History acetaZOLAMIDE [Diamox] 125 mg PO BID 01/20/16 07/31/16 History Idunneat-Opkhzxolsk-Uomg Oint 1 applic TOPICAL DAILY 07/28/16 07/31/16 History [Triple Antibiotic Ointment] amLODIPine [Norvasc] 10 mg PO DAILY 07/28/16 07/31/16 History Allergies Allergy/AdvReac Type Severity Reaction Status Date / Time No Known Allergies Allergy Verified 07/28/16 22:49 Surgical - Exam Vital Signs Temp Pulse Resp BP Pulse Ox 102 F H 96 18 110/59 97 07/28/16 22:32 07/28/16 22:32 07/28/16 22:32 07/28/16 22:32 07/28/16 22:32 Physical exam: General: 45-year-old male appears older than his stated age HEENT: Normocephalic, sclerae nonicteric Abdomen: Nontender, some edema of the abdominal wall present, incisions clean and dry Extremities: Prior amputations noted Neuro: Alert and oriented Results - Labs 08/03/16 09:43 08/03/16 09:43 Abnormal Lab Results - Last 24 Hours (Table) 08/01/16 08/02/16 08/03/16 Range/Units 16:53 21:13 09:43 RBC (4.30-5.90) m/uL Hgb (13.0-17.5) gm/dL Hct (39.0-53.0) % Lymphocytes # (1.0-4.8) k/uL Sodium 133 L (137-145) mmol/L Carbon Dioxide 21 L (22-30) mmol/L BUN 56 H (9-20) mg/dL Creatinine 11.04 H* (0.66-1.25) mg/dL Glucose 72 L (74-99) mg/dL POC Glucose (mg/dL) 155 H (75-99) mg/dL Calcium 6.6 L (8.4-10.2) mg/dL Total Protein 4.9 L (6.3-8.2) g/dL Albumin 2.4 L (3.5-5.0) g/dL Gabapentin 36.1 H (2.0-12.0) ug/mL 08/03/16 Range/Units 09:43 RBC 2.80 L (4.30-5.90) m/uL Hgb 8.2 L (13.0-17.5) gm/dL Hct 25.9 L (39.0-53.0) % Lymphocytes # 0.9 L (1.0-4.8) k/uL Sodium (137-145) mmol/L Carbon Dioxide (22-30) mmol/L BUN (9-20) mg/dL Creatinine (0.66-1.25) mg/dL Glucose (74-99) mg/dL POC Glucose (mg/dL) (75-99) mg/dL Calcium (8.4-10.2) mg/dL Total Protein (6.3-8.2) g/dL Albumin (3.5-5.0) g/dL Gabapentin (2.0-12.0) ug/mL Diabetes panel 08/03/16 Range/Units 09:43 Sodium 133 L (137-145) mmol/L Potassium 3.9 (3.5-5.1) mmol/L Chloride 99 (98-107) mmol/L Carbon Dioxide 21 L (22-30) mmol/L BUN 56 H (9-20) mg/dL Creatinine 11.04 H* (0.66-1.25) mg/dL Glucose 72 L (74-99) mg/dL Calcium 6.6 L (8.4-10.2) mg/dL AST 29 (17-59) U/L ALT 34 (21-72) U/L Alkaline Phosphatase 99 (38-126) U/L Total Protein 4.9 L (6.3-8.2) g/dL Albumin 2.4 L (3.5-5.0) g/dL Calcium panel 08/03/16 Range/Units 09:43 Calcium 6.6 L (8.4-10.2) mg/dL Albumin 2.4 L (3.5-5.0) g/dL Pituitary panel 08/03/16 Range/Units 09:43 Sodium 133 L (137-145) mmol/L Potassium 3.9 (3.5-5.1) mmol/L Chloride 99 (98-107) mmol/L Carbon Dioxide 21 L (22-30) mmol/L BUN 56 H (9-20) mg/dL Creatinine 11.04 H* (0.66-1.25) mg/dL Glucose 72 L (74-99) mg/dL Calcium 6.6 L (8.4-10.2) mg/dL Adrenal panel 08/03/16 Range/Units 09:43 Sodium 133 L (137-145) mmol/L Potassium 3.9 (3.5-5.1) mmol/L Chloride 99 (98-107) mmol/L Carbon Dioxide 21 L (22-30) mmol/L BUN 56 H (9-20) mg/dL Creatinine 11.04 H* (0.66-1.25) mg/dL Glucose 72 L (74-99) mg/dL Calcium 6.6 L (8.4-10.2) mg/dL Total Bilirubin 0.4 (0.2-1.3) mg/dL AST 29 (17-59) U/L ALT 34 (21-72) U/L Alkaline Phosphatase 99 (38-126) U/L Total Protein 4.9 L (6.3-8.2) g/dL Albumin 2.4 L (3.5-5.0) g/dL Assessment and Plan (1) Chronic renal failure Narrative/Plan: Suspect he may be losing some fluid through the abdominal wall at the peritoneal incisions. Continue low volume exchanges for now. Would consider increasing the volume tomorrow. Will follow. Status: Chronic
--- NOTE | 2016-08-03 19:29 | P.PN ---
Subjective Principal diagnosis: sepsis 45-year-old male with long-standing history of diabetes mellitus type 2 presents to hospital with a sudden onset of high-grade fever with chills, no delmy rigor with severe body aches. Because he felt so poorly presented to the emergency center. There are temperature 100 and she was noted he was admitted to hospital for concerns to sepsis. His temperature is improved. is still having some nausea and emesis after his cholecystectomy but he does relate he feels considerably better than before the procedure. Is having no difficulties with cloudy fluid. But he had some constipation as well as urinary retention. After these are resolved but expect his dialysis to commence with less difficulties He has not had prior difficulties with peritonitis related to his dialysis. Objective - Vital Signs Vital signs: Vital Signs Temp 97.3 F L 08/03/16 15:00 Pulse 94 08/03/16 15:00 Resp 19 08/03/16 15:00 BP 151/85 08/03/16 15:00 Pulse Ox 94 L 08/03/16 15:00 Intake & Output 08/03/16 08/03/16 08/04/16 06:59 18:59 06:59 Output Total 590 1300 Balance -590 -1300 Weight 92 kg Output: Urine 590 1300 Other: Voiding Method Urinal Urinal # Voids 1 # Bowel Movements 1 2 - Exam 45-year-old gentleman relates feels poorly after surgery having nausea and emesis. HEENT: Anicteric conjunctiva are pink and moist nasal mucosa grossly intact without significant lesions, there is no thrush. Recent surgical site to the eye is without erythema or tenderness Neck: The neck is supple without significant lymphadenopathy or thyromegaly. Lungs: Good bilateral air entry without significant crackles or wheezing. There is no significant bronchial sounds. There is no egophony or dullness. Heart: Regular rate and rhythm with an audible S1-S2, no S3 no S4. There is no significant murmur click or rub, PMI was nondisplaced. Abdomen:the patient is status post his cholecystectomy Still has significant abdominal pain. Extremities: The upper extremities have excellent pulses they are symmetric, no significant petechiae or telangiectasia. No splinter hemorrhages were noted. The lower extremities are free from significant edema. The peripheral pulses were 2+ and symmetric. Neuro: Awake alert oriented to person place and time. Skin shows evidence of the multiple tattoos but none of them are tender or fresh or infected - Labs CBC & Chem 7: 08/03/16 09:43 08/03/16 09:43 Labs: Abnormal Lab Results - Last 24 Hours (Table) 08/01/16 08/02/16 08/03/16 Range/Units 16:53 21:13 09:43 RBC (4.30-5.90) m/uL Hgb (13.0-17.5) gm/dL Hct (39.0-53.0) % Lymphocytes # (1.0-4.8) k/uL Sodium 133 L (137-145) mmol/L Carbon Dioxide 21 L (22-30) mmol/L BUN 56 H (9-20) mg/dL Creatinine 11.04 H* (0.66-1.25) mg/dL Glucose 72 L (74-99) mg/dL POC Glucose (mg/dL) 155 H (75-99) mg/dL Calcium 6.6 L (8.4-10.2) mg/dL Total Protein 4.9 L (6.3-8.2) g/dL Albumin 2.4 L (3.5-5.0) g/dL Gabapentin 36.1 H (2.0-12.0) ug/mL 08/03/16 Range/Units 09:43 RBC 2.80 L (4.30-5.90) m/uL Hgb 8.2 L (13.0-17.5) gm/dL Hct 25.9 L (39.0-53.0) % Lymphocytes # 0.9 L (1.0-4.8) k/uL Sodium (137-145) mmol/L Carbon Dioxide (22-30) mmol/L BUN (9-20) mg/dL Creatinine (0.66-1.25) mg/dL Glucose (74-99) mg/dL POC Glucose (mg/dL) (75-99) mg/dL Calcium (8.4-10.2) mg/dL Total Protein (6.3-8.2) g/dL Albumin (3.5-5.0) g/dL Gabapentin (2.0-12.0) ug/mL Laboratory Results WBC 8.6 k/uL (3.8-10.6) 08/03/16 09:43 RBC 2.80 m/uL (4.30-5.90) L 08/03/16 09:43 Hgb 8.2 gm/dL (13.0-17.5) L 08/03/16 09:43 Hct 25.9 % (39.0-53.0) L 08/03/16 09:43 MCV 92.5 fL (80.0-100.0) 08/03/16 09:43 MCH 29.2 pg (25.0-35.0) 08/03/16 09:43 MCHC 31.5 g/dL (31.0-37.0) 08/03/16 09:43 RDW 13.6 % (11.5-15.5) 08/03/16 09:43 Plt Count 243 k/uL (150-450) 08/03/16 09:43 Neutrophils % 74 % 08/03/16 09:43 Lymphocytes % 11 % 08/03/16 09:43 Monocytes % 10 % 08/03/16 09:43 Eosinophils % 3 % 08/03/16 09:43 Basophils % 0 % 08/03/16 09:43 Neutrophils # 6.3 k/uL (1.3-7.7) 08/03/16 09:43 Lymphocytes # 0.9 k/uL (1.0-4.8) L 08/03/16 09:43 Monocytes # 0.8 k/uL (0-1.0) 08/03/16 09:43 Eosinophils # 0.3 k/uL (0-0.7) 08/03/16 09:43 Basophils # 0.0 k/uL (0-0.2) 08/03/16 09:43 Manual Slide Review Performed 08/01/16 09:17 Hypochromasia Slight 08/03/16 09:43 Poikilocytosis (manual Present 08/01/16 09:17 PT 10.1 sec (9.0-12.0) 07/28/16 23:05 INR 1.0 (<1.1) 07/28/16 23:05 APTT 22.4 sec (22.0-30.0) 07/28/16 23:05 Sodium 133 mmol/L (137-145) L 08/03/16 09:43 Potassium 3.9 mmol/L (3.5-5.1) 08/03/16 09:43 Chloride 99 mmol/L (98-107) 08/03/16 09:43 Carbon Dioxide 21 mmol/L (22-30) L 08/03/16 09:43 Anion Gap 13 mmol/L 08/03/16 09:43 BUN 56 mg/dL (9-20) H 08/03/16 09:43 Creatinine 11.04 mg/dL (0.66-1.25) H* 08/03/16 09:43 Est GFR (MDRD) Af Amer 6 (>60 ml/min/1.73 sqM) 08/03/16 09:43 Est GFR (MDRD) Non-Af 5 (>60 ml/min/1.73 sqM) 08/03/16 09:43 Glucose 72 mg/dL (74-99) L 08/03/16 09:43 POC Glucose (mg/dL) 94 mg/dL (75-99) 08/03/16 17:18 POC Glu Digital Watch Assembler ID Alicia Schmitz 08/03/16 17:[address] Glu mg/dL 303 mg/dL 07/29/16 06:21 Hemoglobin A1c 12.2 % (4.2-6.1) H 07/29/16 06:21 Plasma Lactic Acid Massimo 0.5 mmol/L (0.7-2.0) L 07/29/16 06:21 Calcium 6.6 mg/dL (8.4-10.2) L 08/03/16 09:43 Phosphorus 5.7 mg/dL (2.5-4.5) H 07/29/16 06:21 Magnesium 1.7 mg/dL (1.6-2.3) 07/28/16 23:05 Iron 41 ug/dL (49-181) L 07/29/16 06:21 TIBC 177 ug/dL (261-462) L 07/29/16 06:21 % Saturation 23.2 % (20-50) 07/29/16 06:21 Ferritin 901 ng/mL (18-464) H 07/29/16 06:21 Total Bilirubin 0.4 mg/dL (0.2-1.3) 08/03/16 09:43 AST 29 U/L (17-59) 08/03/16 09:43 ALT 34 U/L (21-72) 08/03/16 09:43 Alkaline Phosphatase 99 U/L (38-126) 08/03/16 09:43 Creatine Kinase 281 U/L (55-170) H 07/30/16 08:21 Troponin I <0.012 ng/mL (0.000-0.034) 07/28/16 23:05 Total Protein 4.9 g/dL (6.3-8.2) L 08/03/16 09:43 Albumin 2.4 g/dL (3.5-5.0) L 08/03/16 09:43 Amylase <30 U/L (30-110) L 07/28/16 23:05 Lipase 28 U/L (23-300) 07/28/16 23:05 Urine Color Yellow 07/29/16 01:00 Urine Appearance Clear (Clear) 07/29/16 01:00 Urine pH 8.0 (5.0-8.0) 07/29/16 01:00 Ur Specific [place] 1.010 (1.001-1.035) 07/29/16 01:00 Urine Protein 4+ (Negative) H 07/29/16 01:00 Urine Glucose (UA) 3+ (Negative) H 07/29/16 01:00 Urine Ketones Negative (Negative) 07/29/16 01:00 Urine Blood Small (Negative) H 07/29/16 01:00 Urine Nitrate Negative (Negative) 07/29/16 01:00 Urine Bilirubin Negative (Negative) 07/29/16 01:00 Urine Urobilinogen <2.0 mg/dL (<2.0) 07/29/16 01:00 Ur Leukocyte Esterase Negative (Negative) 07/29/16 01:00 Urine RBC 2 /hpf (0-5) 07/29/16 01:00 Urine WBC 2 /hpf (0-5) 07/29/16 01:00 Urine Bacteria Rare /hpf (None) H 07/29/16 01:00 Urine Mucus Rare /hpf (None) H 07/29/16 01:00 Fluid Source Peritoneal 07/28/16 23:50 Fluid Color Yellow 07/28/16 23:50 Fluid Appearance Clear 07/28/16 23:50 Fluid RBC 0 /uL 07/28/16 23:50 Fluid Nucleated Cells 6 /uL 07/28/16 23:50 Random Vancomycin 19.9 ug/mL 08/02/16 08:21 Gabapentin 36.1 ug/mL (2.0-12.0) H 08/01/16 16:53 Levetiracetam 39.7 ug/mL (3.0-60.0) 08/01/16 08:45 Influenza Type A RNA Not Detected (Not Detectd) 07/28/16 23:14 Influenza Type B (PCR) Not Detected (Not Detectd) 07/28/16 23:14 Miscellaneous Test LDH,Peritoneal Fld 07/28/16 23:50 Misc Test Result See Comment 07/28/16 23:50 Microbiology 07/28/16 23:05 Blood Blood Culture - Preliminary No Growth after 120 hours 07/28/16 23:50 Peritoneal Fluid Gram Stain - Final 07/28/16 23:50 Peritoneal Fluid Body Fluid Culture - Final 07/29/16 01:00 Urine,Voided Urine Culture - Final Assessment and Plan (1) Fever Narrative/Plan: 45-year-old male presents to the emergency center feeling very poorly. Having high-grade fever up to 102 associated with chills without delmy rigors. Significant myalgias occurred. He also had significant gastroenteritis with some nausea and abdominal pain without much diarrhea. He has not had significant hematemesis melena or hematochezia. The peritoneal fluid is clear and colorless with no stated amounts of white cells. Fortunately does not have evidence of peritoneal catheter-related infection. He does have a history of prior significant staphylococcal infection that resulted in the [id number] amputation to the right leg is directly related to his poorly controlled diabetes over the years the last hemoglobin A1c 12.2. imaging studies revealed evidence of abnormal gallbladder. He has been seen by surgery and constantly was taken to the operating room where a stone was noted to be obstructing the common bile duct. Other than some nausea and emesis he is feeling better. Vancomycin will be continued until we have further culture data. Zosyn added for now given the infectious process Cultures are in process. Maneuvers to improve his hydration and nausea have been given. Leukocytosis at admission likely due to his acute cholecystitis. His creatinine is gone up to 11.04 indicative some the difficulties of his current peritoneal dialysis. Is being seen by nephrology. Status: Acute (2) Gastroenteritis Status: Acute (3) End stage renal disease on dialysis Status: Chronic (4) Poorly controlled type 2 diabetes mellitus with circulatory disorder Status: Acute
[2016-08-03 21:14] LABS: Glucose,Whole Blood 129 mg/dL (75-99)
[2016-08-03] MEDS: ATORVASTATIN 80 MG TAB PO SCH (21:21)
[2016-08-03] MEDS: INSULIN GLARGINE 100 UNIT/ML 10 ML VIAL SQ SCH (21:22)
[2016-08-04] MEDS: DIALYSIS DEX INTRAPERIT SCH ×4 (00:14→17:51)
[2016-08-04] MEDS: HYDROmorphone 1 MG/ML 1 ML SYRINGE IVP PRN ×3 (03:29→20:32)
[2016-08-04] MEDS: ONDANSETRON 4 MG/2 ML VIAL IVP PRN (03:29)
[2016-08-04] MEDS: PIPERACILLIN-TAZOBACTAM 3.375 GM in DEXTROSE/WATER 1 50ML.BAG IVPB SCH ×2 (05:56→17:52)
[2016-08-04] MEDS: INSULIN LISPRO (humaLOG) 300 UNIT/3 ML VIAL SQ SCH ×4 (07:34→21:42)
--- NOTE | 2016-08-04 07:38 | PN ---
DATE OF SERVICE: 08/03/2016 I am covering for Dr. José Cm. This 45-year-old gentleman admitted with cholecystitis and sepsis, also had renal failure. The patient also had significant myoclonic jerks also. The Neurontin level was toxic and the Neurontin has been stopped at this time. The patient's hemodialysis also has been augmented by Nephrology. No chest pain or palpitations. No fever. This patient is slightly drowsy. Myoclonic jerks appear to be less today. On exam, alert and oriented x2. Pulse 94, blood pressure 151/85, respirations 19, temperature 97.3, pulse ox 94% on room air. HEENT: Conjunctivae normal. NECK: No jugular venous distention. CARDIOVASCULAR: S1 and S2, muffled. RESPIRATORY: A few scattered rhonchi and crackles. ABDOMEN: Soft, obese, nontender. LEGS: No edema, no swelling. NERVOUS SYSTEM: No focal deficits. LABS: WBC 8.6, hemoglobin 8.2. Sodium 133, potassium 3.9. Creatinine is 11.04. ASSESSMENT: 1. Acute cholecystitis with cystic duct obstruction secondary to cholelithiasis and with acute sepsis, present on admission. 2. Status post laparoscopic cholecystectomy. 3. End-stage renal disease on peritoneal dialysis with chronic kidney disease, stage V. 4. Multiple myoclonic jerks. 5. Toxic Neurontin levels. 6. Change in mental status, metabolic encephalopathy, acute on chronic. 7. History of deep venous thrombosis. 8. History of coronary artery disease. 9. Diabetes mellitus type 2, uncontrolled. 10. History of gastroesophageal reflux disease. 11. History of diabetic gastroparesis. 12. Hemoglobin A1c of 12.2. 13. Hyponatremia. 14. Increased WBC. 15. Anemia of chronic disease. 16. FULL CODE. RECOMMENDATIONS AND DISCUSSION: Recommend continue the current medications. Continues with monitoring and symptomatic treatment. Hold off Neurontin. Otherwise, continue the hemodialysis and Dr. Cm will follow. If the patient is not feeling better, hemodialysis may be an option. Currently continue the peritoneal dialysis per Nephrology.
[2016-08-04 07:40] LABS: Glucose,Whole Blood 104 mg/dL (75-99)
[2016-08-04] MEDS: FOLIC ACID-VIT B COMPLEX-VIT C 1 CAP PO SCH (08:39)
[2016-08-04] MEDS: LEVOTHYROXINE 25 MCG TAB PO SCH (08:39)
[2016-08-04] MEDS: DIVALPROEX 250 MG TABLET.DR PO SCH ×3 (08:39→21:44)
[2016-08-04] MEDS: LACTULOSE 20 GM/30 ML CUP PO SCH ×3 (08:39→22:01)
[2016-08-04] MEDS: levETIRAcetam 500 MG TAB PO SCH ×2 (08:39→21:42)
[2016-08-04] MEDS: SEVELAMER 800 MG TAB PO SCH ×4 (08:40→17:50)
[2016-08-04] MEDS: AMIODARONE 200 MG TAB PO SCH ×2 (08:41→21:44)
[2016-08-04] MEDS: SODIUM BICARBONATE TAB 650 MG TAB PO SCH ×2 (08:41→21:43)
[2016-08-04 09:59] LABS: Calcium 7.1 mg/dL (8.4-10.2); Potassium 3.8 mmol/L (3.5-5.1)
--- NOTE | 2016-08-04 11:39 | P.PN ---
Subjective Principal diagnosis: Patient resting comfortably in bed states abdominal pain and feelings of nausea improving Dr. Mann continues peritoneal dialysis low-volume Objective - Vital Signs Vital signs: Vital Signs Temp 99.0 F 08/04/16 07:00 Pulse 86 08/04/16 07:00 Resp 16 08/04/16 07:00 BP 148/77 08/04/16 07:00 Pulse Ox 92 L 08/04/16 07:00 Intake & Output 08/03/16 08/04/16 08/04/16 18:59 06:59 18:59 Intake Total 100 Output Total 1300 Balance -1300 100 Weight 91.5 kg Intake: Oral 100 Output: Urine 1300 Other: Voiding Method Urinal Urinal # Voids 1 2 # Bowel Movements 2 2 - Constitutional General appearance: Present: obese - EENT Eyes: Present: PERRLA Ears: bilateral: normal - Respiratory Respiratory: bilateral: CTA - Cardiovascular Rhythm: regular - Gastrointestinal General gastrointestinal: Present: soft, tenderness Localized gastrointestinal: tender: diffuse - Integumentary Integumentary: Present: normal - Neurologic Neurologic: Present: CNII-XII intact - Musculoskeletal Musculoskeletal: Present: generalized weakness - Psychiatric Psychiatric: Present: A&O x's 3, appropriate affect, intact judgment & insight - Labs CBC & Chem 7: 08/03/16 09:43 08/04/16 09:01 Labs: Abnormal Lab Results - Last 24 Hours (Table) 08/03/16 08/04/16 08/04/16 Range/Units 21:11 07:22 09:01 Sodium 136 L (137-145) mmol/L Carbon Dioxide 17 L (22-30) mmol/L BUN 56 H (9-20) mg/dL Creatinine 11.20 H* (0.66-1.25) mg/dL POC Glucose (mg/dL) 129 H 104 H (75-99) mg/dL Calcium 7.1 L (8.4-10.2) mg/dL Assessment and Plan Plan: Assessment Acute cholecystitis with cystic duct obstruction secondary to cholelithiasis with acute sepsis present on admission Post laparoscopic cholecystectomy End-stage renal disease on peritoneal dialysis chronic kidney disease stage V GFR 5 Change in mental status metabolic encephalopathy acute on chronic History of DVT History of coronary disease Diabetes type 2 uncontrolled A1c 12.2 History of diabetic gastroparesis Hyponatremia Anemia chronic disease Patient full code Plan Continued surgical consultation Continue consultation with regarding peritoneal dialysis Continue consultation with Dr. Sy regarding fever and sepsis
--- NOTE | 2016-08-04 11:40 | P.PN ---
Subjective Patient is seen in follow-up for end-stage renal disease. He is maintained on peritoneal dialysis. Patient presented with nausea and vomiting. He underwent laparoscopic cholecystectomy on July 31. Denies chest pain or shortness of breath. He was constipated which is now resolved post lactulose. Vital signs are stable. General: The patient appeared well nourished and normally developed. HEENT: Head exam is unremarkable. Neck is without jugular venous distension. LUNGS: Lungs are clear to auscultation and percussion. Breath sounds decreased. HEART: Rate and Rhythm are regular. First and second heart sounds normal. No murmurs, rubs or gallops. ABDOMEN: Abdominal exam reveals normal bowel sounds. Non-tender and non- distended. No evidence of peritonitis. EXTREMITITES: No clubbing, cyanosis, or edema. Amputation noted. Objective - Vital Signs Vital signs: Vital Signs Temp 99.0 F 08/04/16 07:00 Pulse 86 08/04/16 07:00 Resp 16 08/04/16 07:00 BP 148/77 08/04/16 07:00 Pulse Ox 92 L 08/04/16 07:00 Intake & Output 08/03/16 08/04/16 08/04/16 18:59 06:59 18:59 Intake Total 100 Output Total 1300 Balance -1300 100 Weight 91.5 kg Intake: Oral 100 Output: Urine 1300 Other: Voiding Method Urinal Urinal # Voids 1 2 # Bowel Movements 2 2 - Labs CBC & Chem 7: 08/03/16 09:43 08/04/16 09:01 Labs: Abnormal Lab Results - Last 24 Hours (Table) 08/03/16 08/04/16 08/04/16 Range/Units 21:11 07:22 09:01 Sodium 136 L (137-145) mmol/L Carbon Dioxide 17 L (22-30) mmol/L BUN 56 H (9-20) mg/dL Creatinine 11.20 H* (0.66-1.25) mg/dL POC Glucose (mg/dL) 129 H 104 H (75-99) mg/dL Calcium 7.1 L (8.4-10.2) mg/dL Assessment and Plan Plan: Assessment: #1. End-stage renal disease maintained on peritoneal dialysis. #2. Fever. Questionable viral syndrome. No evidence of peritonitis at this time. Also question of acute cholecystitis status post laparoscopic cholecystectomy on July 31. #3. Anemia of chronic kidney disease. Iron replete. #4. Chronic kidney disease mineral bone disease. #5. Insulin-dependent diabetes mellitus. #6. Metabolic acidosis secondary to chronic kidney disease. #7. Myoclonic jerking. Gabapentin level noted to be elevated. Dose has been appropriately decreased. Plan: Increase volume of peritoneal dialysis exchanges to 750 mL every 6 hours. He seems to be draining well now. Maintain Aranesp. Maintain Renvela with meals. Nephrocaps daily. Antibiotics per infectious disease recommendations. Maintain lactulose as needed for constipation. No evidence of peritonitis at this time. Maintain oral sodium bicarbonate supplementation - I will increase the dose.
[2016-08-04 11:46] LABS: Basophils % (A) 0 %; CH 29.4; Eosinophils # (A) 0.2 k/uL (0-0.7); Eosinophils % (A) 2 %; HCT 27.2 % (39.0-53.0); HDW 3.15; HGB 8.7 gm/dL (13.0-17.5); Hypochromasia Slight; Luc # (Auto) 0.15; Luc % (Auto) 1; Lymphocytes % (A) 8 %; MCH 29.5 pg (25.0-35.0); MCHC 31.9 g/dL (31.0-37.0); MCV 92.3 fL (80.0-100.0); Mean Platelet Volume 7.8; Monocytes # (A) 0.9 k/uL (0-1.0); Monocytes % (A) 7 %; Neutrophils # (A) 9.6 k/uL (1.3-7.7); Neutrophils % (A) 81 %; RBC 2.95 m/uL (4.30-5.90); RDW 13.6 % (11.5-15.5); WBC 11.8 k/uL (3.8-10.6); WBC (Perox) 11.98
[2016-08-04 12:16] LABS: Glucose,Whole Blood 113 mg/dL (75-99)
[2016-08-04] MEDS: THIAMINE 100 MG TAB PO SCH ×2 (13:02→13:51)
--- NOTE | 2016-08-04 16:41 | P.PN ---
Subjective Principal diagnosis: Malfunctioning peritoneal dialysis catheter Patient had better exchanges last night. He had 500 mL out after a 500 mL fill. Earlier today he had 300 mL out after a 500 mL fill. Patient denies any abdominal discomforts or abdominal wall swelling. Objective - Vital Signs Vital signs: Vital Signs Temp 98.2 F 08/04/16 15:00 Pulse 89 08/04/16 15:00 Resp 16 08/04/16 15:00 BP 156/83 08/04/16 15:00 Pulse Ox 93 L 08/04/16 15:00 Intake & Output 08/03/16 08/04/16 08/04/16 18:59 06:59 18:59 Intake Total 100 Output Total 1300 1700 Balance -1300 100 -1700 Weight 91.5 kg Intake: Oral 100 Output: Urine 1300 1700 Straight 1200 Other: Voiding Method Urinal Urinal # Voids 1 2 1 # Bowel Movements 2 2 1 - Exam Abdomen: Soft, nondistended, mild abdominal wall edema, incisions clean and dry - Labs CBC & Chem 7: 08/04/16 09:01 08/04/16 09:01 Labs: Abnormal Lab Results - Last 24 Hours (Table) 08/03/16 08/04/16 08/04/16 Range/Units 21:11 07:22 09:01 WBC 11.8 H (3.8-10.6) k/uL RBC 2.95 L (4.30-5.90) m/uL Hgb 8.7 L (13.0-17.5) gm/dL Hct 27.2 L (39.0-53.0) % Neutrophils # 9.6 H (1.3-7.7) k/uL Sodium (137-145) mmol/L Carbon Dioxide (22-30) mmol/L BUN (9-20) mg/dL Creatinine (0.66-1.25) mg/dL POC Glucose (mg/dL) 129 H 104 H (75-99) mg/dL Calcium (8.4-10.2) mg/dL 08/04/16 08/04/16 Range/Units 09:01 11:35 WBC (3.8-10.6) k/uL RBC (4.30-5.90) m/uL Hgb (13.0-17.5) gm/dL Hct (39.0-53.0) % Neutrophils # (1.3-7.7) k/uL Sodium 136 L (137-145) mmol/L Carbon Dioxide 17 L (22-30) mmol/L BUN 56 H (9-20) mg/dL Creatinine 11.20 H* (0.66-1.25) mg/dL POC Glucose (mg/dL) 113 H (75-99) mg/dL Calcium 7.1 L (8.4-10.2) mg/dL Assessment and Plan (1) Chronic renal failure Narrative/Plan: Continue diet as tolerated. Increase fill exchange volumes to 750 mL. Status: Chronic
[2016-08-04 17:14] LABS: Glucose,Whole Blood 141 mg/dL (75-99)
[2016-08-04 20:28] LABS: Glucose,Whole Blood 195 mg/dL (75-99)
--- NOTE | 2016-08-04 20:37 | P.PN ---
Subjective Principal diagnosis: sepsis 45-year-old male with long-standing history of diabetes mellitus type 2 presents to hospital with a sudden onset of high-grade fever with chills, no delmy rigor with severe body aches. Because he felt so poorly presented to the emergency center. There are temperature 100 and she was noted he was admitted to hospital for concerns to sepsis. His temperature is improved. is still having some nausea and emesis after his cholecystectomy but he does relate he feels considerably better than before the procedure. Is having no difficulties with cloudy fluid. But he had some constipation as well as urinary retention. After these are resolved but expect his dialysis to commence with less difficulties He has not had prior difficulties with peritonitis related to his dialysis. He is now feeling considerably better. Constipation is resolved. Urinary retention is resolved. CAPD fluid has been following more readily without evidence of cloudiness or tenderness. He has nausea and emesis have resolved. He definitely feels better. Abdominal pain is improved. Objective - Vital Signs Vital signs: Vital Signs Temp 98.2 F 08/04/16 18:09 Pulse 82 08/04/16 18:09 Resp 16 08/04/16 18:09 BP 142/77 08/04/16 18:09 Pulse Ox 93 L 08/04/16 15:00 Intake & Output 08/04/16 08/04/16 08/05/16 06:59 18:59 06:59 Intake Total 100 120 Output Total 1700 Balance 100 -1700 120 Weight 91.5 kg Intake: Oral 100 120 Output: Urine 1700 Straight 1200 Other: Voiding Method Urinal # Voids 2 1 # Bowel Movements 2 1 - Exam 45-year-old gentleman relates feels poorly after surgery having nausea and emesis. HEENT: Anicteric conjunctiva are pink and moist nasal mucosa grossly intact without significant lesions, there is no thrush. Recent surgical site to the eye is without erythema or tenderness Neck: The neck is supple without significant lymphadenopathy or thyromegaly. Lungs: Good bilateral air entry without significant crackles or wheezing. There is no significant bronchial sounds. There is no egophony or dullness. Heart: Regular rate and rhythm with an audible S1-S2, no S3 no S4. There is no significant murmur click or rub, PMI was nondisplaced. Abdomen:the patient is status post his cholecystectomy much less abdominal tenderness Extremities: The upper extremities have excellent pulses they are symmetric, no significant petechiae or telangiectasia. No splinter hemorrhages were noted. The lower extremities are free from significant edema. The peripheral pulses were 2+ and symmetric. Neuro: Awake alert oriented to person place and time. Skin shows evidence of the multiple tattoos but none of them are tender or fresh or infected - Labs CBC & Chem 7: 08/04/16 09:01 08/04/16 09:01 Labs: Abnormal Lab Results - Last 24 Hours (Table) 08/03/16 08/04/16 08/04/16 Range/Units 21:11 07:22 09:01 WBC 11.8 H (3.8-10.6) k/uL RBC 2.95 L (4.30-5.90) m/uL Hgb 8.7 L (13.0-17.5) gm/dL Hct 27.2 L (39.0-53.0) % Neutrophils # 9.6 H (1.3-7.7) k/uL Sodium (137-145) mmol/L Carbon Dioxide (22-30) mmol/L BUN (9-20) mg/dL Creatinine (0.66-1.25) mg/dL POC Glucose (mg/dL) 129 H 104 H (75-99) mg/dL Calcium (8.4-10.2) mg/dL 08/04/16 08/04/16 08/04/16 Range/Units 09:01 11:35 16:45 WBC (3.8-10.6) k/uL RBC (4.30-5.90) m/uL Hgb (13.0-17.5) gm/dL Hct (39.0-53.0) % Neutrophils # (1.3-7.7) k/uL Sodium 136 L (137-145) mmol/L Carbon Dioxide 17 L (22-30) mmol/L BUN 56 H (9-20) mg/dL Creatinine 11.20 H* (0.66-1.25) mg/dL POC Glucose (mg/dL) 113 H 141 H (75-99) mg/dL Calcium 7.1 L (8.4-10.2) mg/dL 08/04/16 Range/Units 20:25 WBC (3.8-10.6) k/uL RBC (4.30-5.90) m/uL Hgb (13.0-17.5) gm/dL Hct (39.0-53.0) % Neutrophils # (1.3-7.7) k/uL Sodium (137-145) mmol/L Carbon Dioxide (22-30) mmol/L BUN (9-20) mg/dL Creatinine (0.66-1.25) mg/dL POC Glucose (mg/dL) 195 H (75-99) mg/dL Calcium (8.4-10.2) mg/dL Laboratory Results WBC 11.8 k/uL (3.8-10.6) H 08/04/16 09:01 RBC 2.95 m/uL (4.30-5.90) L 08/04/16 09:01 Hgb 8.7 gm/dL (13.0-17.5) L 08/04/16 09:01 Hct 27.2 % (39.0-53.0) L 08/04/16 09:01 MCV 92.3 fL (80.0-100.0) 08/04/16 09:01 MCH 29.5 pg (25.0-35.0) 08/04/16 09:01 MCHC 31.9 g/dL (31.0-37.0) 08/04/16 09:01 RDW 13.6 % (11.5-15.5) 08/04/16 09:01 Plt Count 234 k/uL (150-450) 08/04/16 09:01 Neutrophils % 81 % 08/04/16 09:01 Lymphocytes % 8 % 08/04/16 09:01 Monocytes % 7 % 08/04/16 09:01 Eosinophils % 2 % 08/04/16 09:01 Basophils % 0 % 08/04/16 09:01 Neutrophils # 9.6 k/uL (1.3-7.7) H 08/04/16 09:01 Lymphocytes # 1.0 k/uL (1.0-4.8) 08/04/16 09:01 Monocytes # 0.9 k/uL (0-1.0) 08/04/16 09:01 Eosinophils # 0.2 k/uL (0-0.7) 08/04/16 09:01 Basophils # 0.0 k/uL (0-0.2) 08/04/16 09:01 Manual Slide Review Performed 08/01/16 09:17 Hypochromasia Slight 08/04/16 09:01 Poikilocytosis (manual Present 08/01/16 09:17 PT 10.1 sec (9.0-12.0) 07/28/16 23:05 INR 1.0 (<1.1) 07/28/16 23:05 APTT 22.4 sec (22.0-30.0) 07/28/16 23:05 Sodium 136 mmol/L (137-145) L 08/04/16 09:01 Potassium 3.8 mmol/L (3.5-5.1) 08/04/16 09:01 Chloride 102 mmol/L (98-107) 08/04/16 09:01 Carbon Dioxide 17 mmol/L (22-30) L 08/04/16 09:01 Anion Gap 17 mmol/L 08/04/16 09:01 BUN 56 mg/dL (9-20) H 08/04/16 09:01 Creatinine 11.20 mg/dL (0.66-1.25) H* 08/04/16 09:01 Est GFR (MDRD) Af Amer 6 (>60 ml/min/1.73 sqM) 08/04/16 09:01 Est GFR (MDRD) Non-Af 5 (>60 ml/min/1.73 sqM) 08/04/16 09:01 Glucose 88 mg/dL (74-99) 08/04/16 09:01 POC Glucose (mg/dL) 195 mg/dL (75-99) H 08/04/16 20:25 POC Glu Grinder Operator ID Nina Acevedo 08/04/16 20:[address] Glu mg/dL 303 mg/dL 07/29/16 06:21 Hemoglobin A1c 12.2 % (4.2-6.1) H 07/29/16 06:21 Plasma Lactic Acid Massimo 0.5 mmol/L (0.7-2.0) L 07/29/16 06:21 Calcium 7.1 mg/dL (8.4-10.2) L 08/04/16 09:01 Phosphorus 5.7 mg/dL (2.5-4.5) H 07/29/16 06:21 Magnesium 1.7 mg/dL (1.6-2.3) 07/28/16 23:05 Iron 41 ug/dL (49-181) L 07/29/16 06:21 TIBC 177 ug/dL (261-462) L 07/29/16 06:21 % Saturation 23.2 % (20-50) 07/29/16 06:21 Ferritin 901 ng/mL (18-464) H 07/29/16 06:21 Total Bilirubin 0.4 mg/dL (0.2-1.3) 08/03/16 09:43 AST 29 U/L (17-59) 08/03/16 09:43 ALT 34 U/L (21-72) 08/03/16 09:43 Alkaline Phosphatase 99 U/L (38-126) 08/03/16 09:43 Creatine Kinase 281 U/L (55-170) H 07/30/16 08:21 Troponin I <0.012 ng/mL (0.000-0.034) 07/28/16 23:05 Total Protein 4.9 g/dL (6.3-8.2) L 08/03/16 09:43 Albumin 2.4 g/dL (3.5-5.0) L 08/03/16 09:43 Amylase <30 U/L (30-110) L 07/28/16 23:05 Lipase 28 U/L (23-300) 07/28/16 23:05 Urine Color Yellow 07/29/16 01:00 Urine Appearance Clear (Clear) 07/29/16 01:00 Urine pH 8.0 (5.0-8.0) 07/29/16 01:00 Ur Specific [place] 1.010 (1.001-1.035) 07/29/16 01:00 Urine Protein 4+ (Negative) H 07/29/16 01:00 Urine Glucose (UA) 3+ (Negative) H 07/29/16 01:00 Urine Ketones Negative (Negative) 07/29/16 01:00 Urine Blood Small (Negative) H 07/29/16 01:00 Urine Nitrate Negative (Negative) 07/29/16 01:00 Urine Bilirubin Negative (Negative) 07/29/16 01:00 Urine Urobilinogen <2.0 mg/dL (<2.0) 07/29/16 01:00 Ur Leukocyte Esterase Negative (Negative) 07/29/16 01:00 Urine RBC 2 /hpf (0-5) 07/29/16 01:00 Urine WBC 2 /hpf (0-5) 07/29/16 01:00 Urine Bacteria Rare /hpf (None) H 07/29/16 01:00 Urine Mucus Rare /hpf (None) H 07/29/16 01:00 Fluid Source Peritoneal 07/28/16 23:50 Fluid Color Yellow 07/28/16 23:50 Fluid Appearance Clear 07/28/16 23:50 Fluid RBC 0 /uL 07/28/16 23:50 Fluid Nucleated Cells 6 /uL 07/28/16 23:50 Random Vancomycin 29.9 ug/mL 08/04/16 09:01 Gabapentin 36.1 ug/mL (2.0-12.0) H 08/01/16 16:53 Levetiracetam 39.7 ug/mL (3.0-60.0) 08/01/16 08:45 Influenza Type A RNA Not Detected (Not Detectd) 07/28/16 23:14 Influenza Type B (PCR) Not Detected (Not Detectd) 07/28/16 23:14 Miscellaneous Test LDH,Peritoneal Fld 07/28/16 23:50 Misc Test Result See Comment 07/28/16 23:50 Microbiology 07/28/16 23:05 Blood Blood Culture - Final No Growth after 144 hours 07/28/16 23:50 Peritoneal Fluid Gram Stain - Final 07/28/16 23:50 Peritoneal Fluid Body Fluid Culture - Final 07/29/16 01:00 Urine,Voided Urine Culture - Final Assessment and Plan (1) Fever Narrative/Plan: 45-year-old male presents to the emergency center feeling very poorly. Having high-grade fever up to 102 associated with chills without delmy rigors. Significant myalgias occurred. He also had significant gastroenteritis with some nausea and abdominal pain without much diarrhea. He has not had significant hematemesis melena or hematochezia. The peritoneal fluid is clear and colorless with no stated amounts of white cells. Fortunately does not have evidence of peritoneal catheter-related infection. 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 imaging studies revealed evidence of abnormal gallbladder. He has been seen by surgery and constantly was taken to the operating room where a stone was noted to be obstructing the common bile duct. Other than some nausea and emesis he is feeling better. Vancomycin will be continued until we have further culture data. Zosyn added for now given the infectious process Cultures are in process. Maneuvers to improve his hydration and nausea have been given. Leukocytosis at admission likely due to his acute cholecystitis. His creatinine is gone up to 11.2 indicative some the difficulties of his current peritoneal dialysis. Is being seen by nephrology. At this time the patient is all negative cultures. We'll discontinue vancomycin therapy. Zosyn for the next 24 hours if she is getting ready for discharge to home. Would not the need further antibiotic therapy. Status: Acute (2) Gastroenteritis Status: Acute (3) End stage renal disease on dialysis Status: Chronic (4) Poorly controlled type 2 diabetes mellitus with circulatory disorder Status: Acute
[2016-08-04] MEDS: ATORVASTATIN 80 MG TAB PO SCH (21:41)
[2016-08-04] MEDS: INSULIN GLARGINE 100 UNIT/ML 10 ML VIAL SQ SCH (21:52)
[2016-08-05] MEDS: DIALYSIS DEX INTRAPERIT SCH ×4 (00:16→18:17)
[2016-08-05] MEDS: ONDANSETRON 4 MG/2 ML VIAL IVP PRN (04:06)
[2016-08-05] MEDS: HYDROmorphone 1 MG/ML 1 ML SYRINGE IVP PRN ×3 (04:09→16:23)
[2016-08-05] MEDS: PIPERACILLIN-TAZOBACTAM 3.375 GM in DEXTROSE/WATER 1 50ML.BAG IVPB SCH ×2 (06:10→18:15)
[2016-08-05 07:44] LABS: Glucose,Whole Blood 196 mg/dL (75-99)
[2016-08-05] MEDS: SODIUM BICARBONATE TAB 650 MG TAB PO SCH ×2 (08:30→21:40)
[2016-08-05] MEDS: AMIODARONE 200 MG TAB PO SCH ×2 (08:30→21:29)
[2016-08-05] MEDS: levETIRAcetam 500 MG TAB PO SCH ×2 (08:30→21:31)
[2016-08-05] MEDS: LEVOTHYROXINE 25 MCG TAB PO SCH (08:30)
[2016-08-05] MEDS: SEVELAMER 800 MG TAB PO SCH ×3 (08:30→18:17)
[2016-08-05] MEDS: FOLIC ACID-VIT B COMPLEX-VIT C 1 CAP PO SCH (08:31)
[2016-08-05] MEDS: LACTULOSE 20 GM/30 ML CUP PO SCH ×5 (08:31→21:34)
[2016-08-05] MEDS: INSULIN LISPRO (humaLOG) 300 UNIT/3 ML VIAL SQ SCH ×4 (08:32→21:30)
[2016-08-05] MEDS: DIVALPROEX 250 MG TABLET.DR PO SCH ×4 (08:32→21:31)
[2016-08-05 08:51] LABS: Basophils % (A) 0 %; CH 29.8; CHCM 32.8; Eosinophils # (A) 0.2 k/uL (0-0.7); Eosinophils % (A) 2 %; HCT 25.9 % (39.0-53.0); HDW 3.18; HGB 8.2 gm/dL (13.0-17.5); Luc # (Auto) 0.16; Luc % (Auto) 2; Lymphocytes # (A) 0.7 k/uL (1.0-4.8); Lymphocytes % (A) 7 %; MCH 28.8 pg (25.0-35.0); MCHC 31.7 g/dL (31.0-37.0); MCV 91.1 fL (80.0-100.0); Mean Platelet Volume 8.4; Monocytes # (A) 0.7 k/uL (0-1.0); Monocytes % (A) 7 %; Neutrophils # (A) 8.2 k/uL (1.3-7.7); Neutrophils % (A) 81 %; RBC 2.84 m/uL (4.30-5.90); RDW 13.8 % (11.5-15.5); WBC (Perox) 10.59
[2016-08-05 09:06] LABS: Calcium 7.2 mg/dL (8.4-10.2); Potassium 3.7 mmol/L (3.5-5.1)
--- NOTE | 2016-08-05 10:38 | P.PN ---
Subjective Patient is seen in follow-up for end-stage renal disease. He is maintained on peritoneal dialysis. Patient presented with nausea and vomiting. He underwent laparoscopic cholecystectomy on July 31. Denies chest pain or shortness of breath. He was constipated which is now resolved post lactulose. Continues to have abdominal discomfort. Oral intake is starting to improve. Vital signs are stable. General: The patient appeared well nourished and normally developed. HEENT: Head exam is unremarkable. Neck is without jugular venous distension. LUNGS: Lungs are clear to auscultation and percussion. Breath sounds decreased. HEART: Rate and Rhythm are regular. First and second heart sounds normal. No murmurs, rubs or gallops. ABDOMEN: Abdominal exam reveals normal bowel sounds. Non-tender and non- distended. No evidence of peritonitis. EXTREMITITES: No clubbing, cyanosis, or edema. Amputation noted. Objective - Vital Signs Vital signs: Vital Signs Temp 98.4 F 08/05/16 06:44 Pulse 79 08/05/16 06:44 Resp 16 08/05/16 06:44 BP 152/85 08/05/16 06:44 Pulse Ox 92 L 08/05/16 06:44 Intake & Output 08/04/16 08/05/16 08/05/16 18:59 06:59 18:59 Intake Total 220 Output Total 1700 750 Balance -1700 -530 Weight 89.5 kg Intake: IV 100 Piperacillin-Tazobactam 3 100 .375 gm In Dextrose/Water 1 50ml.bag @ 12.5 mls/hr IVPB Q12H TRAE Rx#: [id number] Oral 120 Output: Urine 1700 750 Straight 1200 750 Other: Voiding Method Urinal # Voids 1 # Bowel Movements 1 1 - Labs CBC & Chem 7: 08/05/16 08:34 08/05/16 08:34 Labs: Abnormal Lab Results - Last 24 Hours (Table) 08/04/16 08/04/16 08/04/16 Range/Units 09:01 11:35 16:45 WBC 11.8 H (3.8-10.6) k/uL RBC 2.95 L (4.30-5.90) m/uL Hgb 8.7 L (13.0-17.5) gm/dL Hct 27.2 L (39.0-53.0) % Neutrophils # 9.6 H (1.3-7.7) k/uL Lymphocytes # (1.0-4.8) k/uL BUN (9-20) mg/dL Creatinine (0.66-1.25) mg/dL Glucose (74-99) mg/dL POC Glucose (mg/dL) 113 H 141 H (75-99) mg/dL Calcium (8.4-10.2) mg/dL 08/04/16 08/05/16 08/05/16 Range/Units 20:25 07:11 08:34 WBC (3.8-10.6) k/uL RBC 2.84 L (4.30-5.90) m/uL Hgb 8.2 L (13.0-17.5) gm/dL Hct 25.9 L (39.0-53.0) % Neutrophils # 8.2 H (1.3-7.7) k/uL Lymphocytes # 0.7 L (1.0-4.8) k/uL BUN (9-20) mg/dL Creatinine (0.66-1.25) mg/dL Glucose (74-99) mg/dL POC Glucose (mg/dL) 195 H 196 H (75-99) mg/dL Calcium (8.4-10.2) mg/dL 08/05/16 Range/Units 08:34 WBC (3.8-10.6) k/uL RBC (4.30-5.90) m/uL Hgb (13.0-17.5) gm/dL Hct (39.0-53.0) % Neutrophils # (1.3-7.7) k/uL Lymphocytes # (1.0-4.8) k/uL BUN 54 H (9-20) mg/dL Creatinine 11.11 H* (0.66-1.25) mg/dL Glucose 187 H (74-99) mg/dL POC Glucose (mg/dL) (75-99) mg/dL Calcium 7.2 L (8.4-10.2) mg/dL Assessment and Plan Plan: Assessment: #1. End-stage renal disease maintained on peritoneal dialysis. #2. Fever. Questionable viral syndrome. No evidence of peritonitis at this time. Also question of acute cholecystitis status post laparoscopic cholecystectomy on Eugenia 20. #3. Anemia of chronic kidney disease. Iron replete. #4. Chronic kidney disease mineral bone disease. #5. Insulin-dependent diabetes mellitus. #6. Metabolic acidosis secondary to chronic kidney disease. #7. Myoclonic jerking. Gabapentin level noted to be elevated. Dose has been appropriately decreased. Plan: Continue peritoneal dialysis exchanges with 750 mL every 6 hours. He seems to be draining well now. Maintain Aranesp. Maintain Renvela with meals. Nephrocaps daily. Antibiotics per infectious disease recommendations. Maintain lactulose as needed for constipation. No evidence of peritonitis at this time. Maintain oral sodium bicarbonate supplementation.
--- NOTE | 2016-08-05 11:47 | P.PN ---
Subjective Principal diagnosis: Malfunctioning peritoneal dialysis catheter Patient doing better. He is maintaining his drainage from his peritoneal dialysis catheter. Denies abdominal pain. Objective - Vital Signs Vital signs: Vital Signs Temp 98.4 F 08/05/16 06:44 Pulse 79 08/05/16 06:44 Resp 16 08/05/16 06:44 BP 152/85 08/05/16 06:44 Pulse Ox 92 L 08/05/16 06:44 Intake & Output 08/04/16 08/05/16 08/05/16 18:59 06:59 18:59 Intake Total 220 Output Total 1700 750 Balance -1700 -530 Weight 89.5 kg Intake: IV 100 Piperacillin-Tazobactam 3 100 .375 gm In Dextrose/Water 1 50ml.bag @ 12.5 mls/hr IVPB Q12H [facility] Rx#: [id number] Oral 120 Output: Urine 1700 750 Straight 1200 750 Other: Voiding Method Urinal # Voids 1 # Bowel Movements 1 1 - Exam Abdomen: Soft, nondistended, nontender - Labs CBC & Chem 7: 08/05/16 08:34 08/05/16 08:34 Labs: Abnormal Lab Results - Last 24 Hours (Table) 08/04/16 08/04/16 08/04/16 Range/Units 09:01 11:35 16:45 WBC 11.8 H (3.8-10.6) k/uL RBC 2.95 L (4.30-5.90) m/uL Hgb 8.7 L (13.0-17.5) gm/dL Hct 27.2 L (39.0-53.0) % Neutrophils # 9.6 H (1.3-7.7) k/uL Lymphocytes # (1.0-4.8) k/uL BUN (9-20) mg/dL Creatinine (0.66-1.25) mg/dL Glucose (74-99) mg/dL POC Glucose (mg/dL) 113 H 141 H (75-99) mg/dL Calcium (8.4-10.2) mg/dL 08/04/16 08/05/16 08/05/16 Range/Units 20:25 07:11 08:34 WBC (3.8-10.6) k/uL RBC 2.84 L (4.30-5.90) m/uL Hgb 8.2 L (13.0-17.5) gm/dL Hct 25.9 L (39.0-53.0) % Neutrophils # 8.2 H (1.3-7.7) k/uL Lymphocytes # 0.7 L (1.0-4.8) k/uL BUN (9-20) mg/dL Creatinine (0.66-1.25) mg/dL Glucose (74-99) mg/dL POC Glucose (mg/dL) 195 H 196 H (75-99) mg/dL Calcium (8.4-10.2) mg/dL 08/05/16 Range/Units 08:34 WBC (3.8-10.6) k/uL RBC (4.30-5.90) m/uL Hgb (13.0-17.5) gm/dL Hct (39.0-53.0) % Neutrophils # (1.3-7.7) k/uL Lymphocytes # (1.0-4.8) k/uL BUN 54 H (9-20) mg/dL Creatinine 11.11 H* (0.66-1.25) mg/dL Glucose 187 H (74-99) mg/dL POC Glucose (mg/dL) (75-99) mg/dL Calcium 7.2 L (8.4-10.2) mg/dL Assessment and Plan (1) Chronic renal failure Narrative/Plan: Continue current volume exchanges. Gradually increase as tolerated. We'll sign off at this point. Please contact if needed. Status: Chronic
--- NOTE | 2016-08-05 12:05 | P.PN ---
Subjective Patient sitting at side of bed states he feels improvement. Current creatinine 11.1 noted negative cultures to blood peritoneal fluid and urine Objective - Vital Signs Vital signs: Vital Signs Temp 98.4 F 08/05/16 06:44 Pulse 79 08/05/16 06:44 Resp 16 08/05/16 06:44 BP 152/85 08/05/16 06:44 Pulse Ox 92 L 08/05/16 06:44 Intake & Output 08/04/16 08/05/16 08/05/16 18:59 06:59 18:59 Intake Total 220 Output Total 1700 750 Balance -1700 -530 Weight 89.5 kg Intake: IV 100 Piperacillin-Tazobactam 3 100 .375 gm In Dextrose/Water 1 50ml.bag @ 12.5 mls/hr IVPB Q12H [facility] Rx#: [id number] Oral 120 Output: Urine 1700 750 Straight 1200 750 Other: Voiding Method Urinal # Voids 1 # Bowel Movements 1 1 - Constitutional General appearance: Present: obese - EENT Eyes: Present: PERRLA Ears: bilateral: normal - Neck Neck: Present: normal ROM - Respiratory Respiratory: negative: CTA - Cardiovascular Rhythm: regular - Gastrointestinal General gastrointestinal: Present: soft - Integumentary Integumentary: Present: normal - Neurologic Neurologic: Present: CNII-XII intact - Musculoskeletal Musculoskeletal: Present: generalized weakness - Psychiatric Psychiatric: Present: A&O x's 3, appropriate affect, intact judgment & insight - Labs CBC & Chem 7: 08/05/16 08:34 08/05/16 08:34 Labs: Abnormal Lab Results - Last 24 Hours (Table) 08/04/16 08/04/16 08/04/16 Range/Units 11:35 16:45 20:25 RBC (4.30-5.90) m/uL Hgb (13.0-17.5) gm/dL Hct (39.0-53.0) % Neutrophils # (1.3-7.7) k/uL Lymphocytes # (1.0-4.8) k/uL BUN (9-20) mg/dL Creatinine (0.66-1.25) mg/dL Glucose (74-99) mg/dL POC Glucose (mg/dL) 113 H 141 H 195 H (75-99) mg/dL Calcium (8.4-10.2) mg/dL 08/05/16 08/05/16 08/05/16 Range/Units 07:11 08:34 08:34 RBC 2.84 L (4.30-5.90) m/uL Hgb 8.2 L (13.0-17.5) gm/dL Hct 25.9 L (39.0-53.0) % Neutrophils # 8.2 H (1.3-7.7) k/uL Lymphocytes # 0.7 L (1.0-4.8) k/uL BUN 54 H (9-20) mg/dL Creatinine 11.11 H* (0.66-1.25) mg/dL Glucose 187 H (74-99) mg/dL POC Glucose (mg/dL) 196 H (75-99) mg/dL Calcium 7.2 L (8.4-10.2) mg/dL Assessment and Plan Plan: Assessment Acute cholecystitis with cystic duct obstruction secondary to cholelithiasis with acute sepsis Post laparoscopic cholecystectomy End-stage renal disease on peritoneal dialysis with chronic kidney disease stage V GFR 5 Change in mental status encephalopathy acute on chronic History of DVT History of coronary disease Diabetes type 2 uncontrolled History of GERD History of diabetic gastroparesis Hemoglobin A1c 12.2 Hyponatremia Anemia chronic disease Patient is a full code Plan Continued surgical consultation Continued consultation with Dr. Mann Continue consultation with Dr. Sy
[2016-08-05 12:47] LABS: Glucose,Whole Blood 167 mg/dL (75-99)
[2016-08-05] MEDS: THIAMINE 100 MG TAB PO SCH (13:15)
--- NOTE | 2016-08-05 13:23 | CDI ---
In responding to this query, please exercise your independent professional judgment. The [facility] Coding Staff and Clinical Documentation Specialists appreciate your assistance in clarifying documentation, maintaining compliance with coding guidelines, accurately documenting patients condition and capturing severity of illness. The fact that a question is asked does not imply that any particular answer is desired or expected. Communication forms are a method of clarifying documentation and are not made part of the Legal Health Record. Thank you in advance for your clarification. Last Revision, May 2015 Gretchen Breen [address] [facility] [place] [address] Documentation Clarification Form Date: 08/05/2016 1:09:00 PM From: Jessie Bergeronprem Admit Date: 07/29/2016 1:10:00 AM Patient Name: Greg Miles Visit Number: [id number] Dr. José Cm and PRASANTH Love 'Diabetes type 2 uncontrolled' is documented in your progress notes. Patient history/risk factors Diabetes Mellitus type 2 End Stage Renal Disease with Peritoneal Dialysis Acute Cholecystitis with Cholelithiasis with Sepsis - post lap Cholecystectomy Clinical Indicators: Lab findings: Hgb A1c 12.2 on 07/29, glucose 162 on 07/29, glucose 72 on 08/03 Treatment: Blood glucose monitoring Humalog scale 4x daily Lantus In your professional opinion, can you please clarify the diagnosis for Uncontrolled Diabetes? Hyperglycemia Hypoglycemia Other (please specify) Unable to determine Please document in your progress notes and discharge summary in order to capture severity of illness and risk of mortality. Include clinical findings that support your diagnosis. FYI: Press F11 to launch patient chart. Place X here if this finding has no clinical significance, is not applicable or if you are not able to provide any additional documentation. YANI
[2016-08-05 17:21] LABS: Glucose,Whole Blood 149 mg/dL (75-99)
[2016-08-05] MEDS: DARBEPOETIN ALFA 40 MCG/0.4 ML SYRINGE SQ SCH (18:16)
[2016-08-05 21:07] LABS: Glucose,Whole Blood 172 mg/dL (75-99)
[2016-08-05] MEDS: INSULIN GLARGINE 100 UNIT/ML 10 ML VIAL SQ SCH (21:29)
[2016-08-05] MEDS: ATORVASTATIN 80 MG TAB PO SCH (21:29)
--- NOTE | 2016-08-05 22:00 | P.PN ---
Subjective Principal diagnosis: sepsis 45-year-old male with long-standing history of diabetes mellitus type 2 presents to hospital with a sudden onset of high-grade fever with chills, no delmy rigor with severe body aches. Because he felt so poorly presented to the emergency center. There are temperature 100 and she was noted he was admitted to hospital for concerns to sepsis. His temperature is improved. is still having some nausea and emesis after his cholecystectomy but he does relate he feels considerably better than before the procedure. Is having no difficulties with cloudy fluid. But he had some constipation as well as urinary retention. After these are resolved but expect his dialysis to commence with less difficulties He has not had prior difficulties with peritonitis related to his dialysis. He is now feeling considerably better. Constipation is resolved. Urinary retention is resolved. CAPD fluid has been following more readily without evidence of cloudiness or tenderness. He has nausea and emesis have resolved. He definitely feels better. Abdominal pain is improved. Apparently there was 700 mL of urine residual in his bladder today. Objective - Vital Signs Vital signs: Vital Signs Temp 98.6 F 08/05/16 18:00 Pulse 72 08/05/16 18:00 Resp 14 08/05/16 18:00 BP 138/74 08/05/16 18:00 Pulse Ox 92 L 08/05/16 15:00 Intake & Output 08/05/16 08/05/16 08/06/16 06:59 18:59 06:59 Intake Total 220 50 Output Total 750 Balance -530 50 Weight 89.5 kg Intake: IV 100 50 Piperacillin-Tazobactam 3 100 50 .375 gm In Dextrose/Water 1 50ml.bag @ 12.5 mls/hr IVPB Q12H [facility] Rx#: [id number] Oral 120 Output: Urine 750 Straight 750 Other: Voiding Method Urinal # Bowel Movements 1 - Exam 45-year-old gentleman relates feels poorly after surgery having nausea and emesis. HEENT: Anicteric conjunctiva are pink and moist nasal mucosa grossly intact without significant lesions, there is no thrush. Recent surgical site to the eye is without erythema or tenderness Neck: The neck is supple without significant lymphadenopathy or thyromegaly. Lungs: Good bilateral air entry without significant crackles or wheezing. There is no significant bronchial sounds. There is no egophony or dullness. Heart: Regular rate and rhythm with an audible S1-S2, no S3 no S4. There is no significant murmur click or rub, PMI was nondisplaced. Abdomen:the patient is status post his cholecystectomy much less abdominal tenderness Extremities: The upper extremities have excellent pulses they are symmetric, no significant petechiae or telangiectasia. No splinter hemorrhages were noted. The lower extremities are free from significant edema. The peripheral pulses were 2+ and symmetric. Neuro: Awake alert oriented to person place and time. Skin shows evidence of the multiple tattoos but none of them are tender or fresh or infected - Labs CBC & Chem 7: 08/05/16 08:34 08/05/16 08:34 Labs: Abnormal Lab Results - Last 24 Hours (Table) 08/05/16 08/05/16 08/05/16 Range/Units 07:11 08:34 08:34 RBC 2.84 L (4.30-5.90) m/uL Hgb 8.2 L (13.0-17.5) gm/dL Hct 25.9 L (39.0-53.0) % Neutrophils # 8.2 H (1.3-7.7) k/uL Lymphocytes # 0.7 L (1.0-4.8) k/uL BUN 54 H (9-20) mg/dL Creatinine 11.11 H* (0.66-1.25) mg/dL Glucose 187 H (74-99) mg/dL POC Glucose (mg/dL) 196 H (75-99) mg/dL Calcium 7.2 L (8.4-10.2) mg/dL 08/05/16 08/05/16 08/05/16 Range/Units 12:44 16:58 20:46 RBC (4.30-5.90) m/uL Hgb (13.0-17.5) gm/dL Hct (39.0-53.0) % Neutrophils # (1.3-7.7) k/uL Lymphocytes # (1.0-4.8) k/uL BUN (9-20) mg/dL Creatinine (0.66-1.25) mg/dL Glucose (74-99) mg/dL POC Glucose (mg/dL) 167 H 149 H 172 H (75-99) mg/dL Calcium (8.4-10.2) mg/dL Laboratory Results WBC 10.0 k/uL (3.8-10.6) 08/05/16 08:34 RBC 2.84 m/uL (4.30-5.90) L 08/05/16 08:34 Hgb 8.2 gm/dL (13.0-17.5) L 08/05/16 08:34 Hct 25.9 % (39.0-53.0) L 08/05/16 08:34 MCV 91.1 fL (80.0-100.0) 08/05/16 08:34 MCH 28.8 pg (25.0-35.0) 08/05/16 08:34 MCHC 31.7 g/dL (31.0-37.0) 08/05/16 08:34 RDW 13.8 % (11.5-15.5) 08/05/16 08:34 Plt Count 261 k/uL (150-450) 08/05/16 08:34 Neutrophils % 81 % 08/05/16 08:34 Lymphocytes % 7 % 08/05/16 08:34 Monocytes % 7 % 08/05/16 08:34 Eosinophils % 2 % 08/05/16 08:34 Basophils % 0 % 08/05/16 08:34 Neutrophils # 8.2 k/uL (1.3-7.7) H 08/05/16 08:34 Lymphocytes # 0.7 k/uL (1.0-4.8) L 08/05/16 08:34 Monocytes # 0.7 k/uL (0-1.0) 08/05/16 08:34 Eosinophils # 0.2 k/uL (0-0.7) 08/05/16 08:34 Basophils # 0.0 k/uL (0-0.2) 08/05/16 08:34 Manual Slide Review Performed 08/01/16 09:17 Hypochromasia Slight 08/04/16 09:01 Poikilocytosis (manual Present 08/01/16 09:17 PT 10.1 sec (9.0-12.0) 07/28/16 23:05 INR 1.0 (<1.1) 07/28/16 23:05 APTT 22.4 sec (22.0-30.0) 07/28/16 23:05 Sodium 137 mmol/L (137-145) 08/05/16 08:34 Potassium 3.7 mmol/L (3.5-5.1) 08/05/16 08:34 Chloride 101 mmol/L (98-107) 08/05/16 08:34 Carbon Dioxide 22 mmol/L (22-30) 08/05/16 08:34 Anion Gap 14 mmol/L 08/05/16 08:34 BUN 54 mg/dL (9-20) H 08/05/16 08:34 Creatinine 11.11 mg/dL (0.66-1.25) H* 08/05/16 08:34 Est GFR (MDRD) Af Amer 6 (>60 ml/min/1.73 sqM) 08/05/16 08:34 Est GFR (MDRD) Non-Af 5 (>60 ml/min/1.73 sqM) 08/05/16 08:34 Glucose 187 mg/dL (74-99) H 08/05/16 08:34 POC Glucose (mg/dL) 172 mg/dL (75-99) H 08/05/16 20:46 POC Glu [employer] Architect ID Gertrude Cifuentes 08/05/16 20:[address] Glu mg/dL 303 mg/dL 07/29/16 06:21 Hemoglobin A1c 12.2 % (4.2-6.1) H 07/29/16 06:21 Plasma Lactic Acid Massimo 0.5 mmol/L (0.7-2.0) L 07/29/16 06:21 Calcium 7.2 mg/dL (8.4-10.2) L 08/05/16 08:34 Phosphorus 5.7 mg/dL (2.5-4.5) H 07/29/16 06:21 Magnesium 1.7 mg/dL (1.6-2.3) 07/28/16 23:05 Iron 41 ug/dL (49-181) L 07/29/16 06:21 TIBC 177 ug/dL (261-462) L 07/29/16 06:21 % Saturation 23.2 % (20-50) 07/29/16 06:21 Ferritin 901 ng/mL (18-464) H 07/29/16 06:21 Total Bilirubin 0.4 mg/dL (0.2-1.3) 08/03/16 09:43 AST 29 U/L (17-59) 08/03/16 09:43 ALT 34 U/L (21-72) 08/03/16 09:43 Alkaline Phosphatase 99 U/L (38-126) 08/03/16 09:43 Creatine Kinase 281 U/L (55-170) H 07/30/16 08:21 Troponin I <0.012 ng/mL (0.000-0.034) 07/28/16 23:05 Total Protein 4.9 g/dL (6.3-8.2) L 08/03/16 09:43 Albumin 2.4 g/dL (3.5-5.0) L 08/03/16 09:43 Amylase <30 U/L (30-110) L 07/28/16 23:05 Lipase 28 U/L (23-300) 07/28/16 23:05 Urine Color Yellow 07/29/16 01:00 Urine Appearance Clear (Clear) 07/29/16 01:00 Urine pH 8.0 (5.0-8.0) 07/29/16 01:00 Ur Specific [place] 1.010 (1.001-1.035) 07/29/16 01:00 Urine Protein 4+ (Negative) H 07/29/16 01:00 Urine Glucose (UA) 3+ (Negative) H 07/29/16 01:00 Urine Ketones Negative (Negative) 07/29/16 01:00 Urine Blood Small (Negative) H 07/29/16 01:00 Urine Nitrate Negative (Negative) 07/29/16 01:00 Urine Bilirubin Negative (Negative) 07/29/16 01:00 Urine Urobilinogen <2.0 mg/dL (<2.0) 07/29/16 01:00 Ur Leukocyte Esterase Negative (Negative) 07/29/16 01:00 Urine RBC 2 /hpf (0-5) 07/29/16 01:00 Urine WBC 2 /hpf (0-5) 07/29/16 01:00 Urine Bacteria Rare /hpf (None) H 07/29/16 01:00 Urine Mucus Rare /hpf (None) H 07/29/16 01:00 Fluid Source Peritoneal 07/28/16 23:50 Fluid Color Yellow 07/28/16 23:50 Fluid Appearance Clear 07/28/16 23:50 Fluid RBC 0 /uL 07/28/16 23:50 Fluid Nucleated Cells 6 /uL 07/28/16 23:50 Random Vancomycin 29.9 ug/mL 08/04/16 09:01 Gabapentin 36.1 ug/mL (2.0-12.0) H 08/01/16 16:53 Levetiracetam 39.7 ug/mL (3.0-60.0) 08/01/16 08:45 Influenza Type A RNA Not Detected (Not Detectd) 07/28/16 23:14 Influenza Type B (PCR) Not Detected (Not Detectd) 07/28/16 23:14 Miscellaneous Test Glucose,Peritoneal 07/28/16 23:50 Misc Test Result See Comment 07/28/16 23:50 Microbiology 07/28/16 23:05 Blood Blood Culture - Final No Growth after 144 hours 07/28/16 23:50 Peritoneal Fluid Gram Stain - Final 07/28/16 23:50 Peritoneal Fluid Body Fluid Culture - Final 07/29/16 01:00 Urine,Voided Urine Culture - Final Assessment and Plan (1) Fever Narrative/Plan: 45-year-old male presents to the emergency center feeling very poorly. Having high-grade fever up to 102 associated with chills without delmy rigors. Significant myalgias occurred. He also had significant gastroenteritis with some nausea and abdominal pain without much diarrhea. He has not had significant hematemesis melena or hematochezia. The peritoneal fluid is clear and colorless with no stated amounts of white cells. Fortunately does not have evidence of peritoneal catheter-related infection. 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 imaging studies revealed evidence of abnormal gallbladder. He has been seen by surgery and constantly was taken to the operating room where a stone was noted to be obstructing the common bile duct. Other than some nausea and emesis he is feeling better. Vancomycin will be continued until we have further culture data. Zosyn added for now given the infectious process Cultures are in process. Maneuvers to improve his hydration and nausea have been given. Leukocytosis at admission likely due to his acute cholecystitis. His creatinine is gone up to 11.2 indicative some the difficulties of his current peritoneal dialysis. Is being seen by nephrology. At this time the patient is all negative cultures. We'll discontinue vancomycin therapy. Zosyn for the next 24 hours if he is getting ready for discharge to home. Would not the need further antibiotic therapy at discharge. He is having some urinary retention. Tamsulosin will be added this evening cannot help with this issue. May need to be taught to straight cath at home. Status: Acute (2) Gastroenteritis Status: Acute (3) End stage renal disease on dialysis Status: Chronic (4) Poorly controlled type 2 diabetes mellitus with circulatory disorder Status: Acute
[2016-08-05] MEDS: TAMSULOSIN 0.4 MG CAP.ER.24H PO SCH (22:32)
[2016-08-06] MEDS: DIALYSIS DEX INTRAPERIT SCH ×4 (00:04→17:40)
[2016-08-06] MEDS: ONDANSETRON 4 MG/2 ML VIAL IVP PRN ×3 (05:23→22:22)
[2016-08-06] MEDS: PIPERACILLIN-TAZOBACTAM 3.375 GM in DEXTROSE/WATER 1 50ML.BAG IVPB SCH ×2 (05:23→17:40)
[2016-08-06] MEDS: HYDROmorphone 1 MG/ML 1 ML SYRINGE IVP PRN ×4 (05:23→22:23)
[2016-08-06 07:55] LABS: Glucose,Whole Blood 146 mg/dL (75-99)
[2016-08-06] MEDS: AMIODARONE 200 MG TAB PO SCH ×2 (08:26→22:09)
[2016-08-06] MEDS: SODIUM BICARBONATE TAB 650 MG TAB PO SCH ×2 (08:26→22:07)
[2016-08-06] MEDS: levETIRAcetam 500 MG TAB PO SCH ×2 (08:26→22:09)
[2016-08-06] MEDS: LACTULOSE 20 GM/30 ML CUP PO SCH ×4 (08:27→22:11)
[2016-08-06] MEDS: FOLIC ACID-VIT B COMPLEX-VIT C 1 CAP PO SCH (08:27)
[2016-08-06] MEDS: LEVOTHYROXINE 25 MCG TAB PO SCH (08:27)
[2016-08-06] MEDS: INSULIN LISPRO (humaLOG) 300 UNIT/3 ML VIAL SQ SCH ×4 (08:27→22:09)
[2016-08-06] MEDS: SEVELAMER 800 MG TAB PO SCH ×3 (08:27→17:40)
[2016-08-06 09:29] LABS: Basophils % (A) 0 %; CH 29.4; CHCM 31.7; Eosinophils # (A) 0.4 k/uL (0-0.7); Eosinophils % (A) 5 %; HCT 25.1 % (39.0-53.0); HDW 3.23; HGB 7.9 gm/dL (13.0-17.5); Hypochromasia Slight; Luc # (Auto) 0.22; Luc % (Auto) 2; Lymphocytes % (A) 10 %; MCH 29.4 pg (25.0-35.0); MCHC 31.6 g/dL (31.0-37.0); MCV 93.2 fL (80.0-100.0); Mean Platelet Volume 6.8; Monocytes # (A) 0.6 k/uL (0-1.0); Monocytes % (A) 6 %; Neutrophils # (A) 7.3 k/uL (1.3-7.7); Neutrophils % (A) 77 %; RDW 13.4 % (11.5-15.5); WBC 9.5 k/uL (3.8-10.6); WBC (Perox) 10.35
[2016-08-06 10:10] LABS: Potassium 3.6 mmol/L (3.5-5.1)
--- NOTE | 2016-08-06 11:04 | P.PN ---
Subjective Patient is seen in follow-up for end-stage renal disease. He is maintained on peritoneal dialysis. Patient presented with nausea and vomiting. He underwent laparoscopic cholecystectomy on July 31. Denies chest pain or shortness of breath. He was constipated which is now resolved post lactulose. Continues to have abdominal discomfort. Oral intake is starting to improve. Vital signs are stable. General: The patient appeared well nourished and normally developed. HEENT: Head exam is unremarkable. Neck is without jugular venous distension. LUNGS: Lungs are clear to auscultation and percussion. Breath sounds decreased. HEART: Rate and Rhythm are regular. First and second heart sounds normal. No murmurs, rubs or gallops. ABDOMEN: Abdominal exam reveals normal bowel sounds. Non-tender and non- distended. No evidence of peritonitis. EXTREMITITES: No clubbing, cyanosis, or edema. Amputation noted. Objective - Vital Signs Vital signs: Vital Signs Temp 96.6 F L 08/06/16 07:00 Pulse 75 08/06/16 07:00 Resp 16 08/06/16 07:00 BP 128/74 08/06/16 07:00 Pulse Ox 93 L 08/06/16 07:00 Intake & Output 08/05/16 08/06/16 08/06/16 18:59 06:59 18:59 Intake Total 50 100 Output Total 429 Balance 50 -329 Weight 90.5 kg Intake: IV 50 100 Piperacillin-Tazobactam 3 50 100 .375 gm In Dextrose/Water 1 50ml.bag @ 12.5 mls/hr IVPB Q12H [facility] Rx#: [id number] Output: Post Void Residual 429 Other: Voiding Method Urinal - Labs CBC & Chem 7: 08/06/16 08:59 08/06/16 08:59 Labs: Abnormal Lab Results - Last 24 Hours (Table) 08/05/16 08/05/16 08/05/16 Range/Units 12:44 16:58 20:46 RBC (4.30-5.90) m/uL Hgb (13.0-17.5) gm/dL Hct (39.0-53.0) % Sodium (137-145) mmol/L Carbon Dioxide (22-30) mmol/L BUN (9-20) mg/dL Creatinine (0.66-1.25) mg/dL Glucose (74-99) mg/dL POC Glucose (mg/dL) 167 H 149 H 172 H (75-99) mg/dL Calcium (8.4-10.2) mg/dL 08/06/16 08/06/16 08/06/16 Range/Units 07:52 08:59 08:59 RBC 2.70 L (4.30-5.90) m/uL Hgb 7.9 L (13.0-17.5) gm/dL Hct 25.1 L (39.0-53.0) % Sodium 135 L (137-145) mmol/L Carbon Dioxide 18 L (22-30) mmol/L BUN 49 H (9-20) mg/dL Creatinine 10.42 H* (0.66-1.25) mg/dL Glucose 136 H (74-99) mg/dL POC Glucose (mg/dL) 146 H (75-99) mg/dL Calcium 7.0 L (8.4-10.2) mg/dL Assessment and Plan Plan: Assessment: #1. End-stage renal disease maintained on peritoneal dialysis. #2. Fever. Questionable viral syndrome. No evidence of peritonitis at this time. Also question of acute cholecystitis status post laparoscopic cholecystectomy on July 31. #3. Anemia of chronic kidney disease. Iron replete. #4. Chronic kidney disease mineral bone disease. #5. Insulin-dependent diabetes mellitus. #6. Metabolic acidosis secondary to chronic kidney disease. #7. Myoclonic jerking. Gabapentin level noted to be elevated. Dose has been appropriately decreased. Plan: Continue peritoneal dialysis exchanges with 750 mL every 6 hours. He seems to be draining well now. Maintain Aranesp. Maintain Renvela with meals. Nephrocaps daily. Antibiotics per infectious disease recommendations. Maintain lactulose as needed for constipation. No evidence of peritonitis at this time. Maintain oral sodium bicarbonate supplementation. Stable to be discharged home from nephrology standpoint. We will gradually increase volume of PD exchanges.
[2016-08-06 11:50] LABS: Glucose,Whole Blood 143 mg/dL (75-99)
[2016-08-06] MEDS: THIAMINE 100 MG TAB PO SCH (12:42)
[2016-08-06 16:39] LABS: Glucose,Whole Blood 171 mg/dL (75-99)
[2016-08-06] MEDS: TAMSULOSIN 0.4 MG CAP.ER.24H PO SCH (17:39)
[2016-08-06] MEDS: DIVALPROEX 250 MG TABLET.DR PO SCH ×2 (17:40→22:08)
--- NOTE | 2016-08-06 20:50 | P.PN ---
Subjective Patient is improved. Able to retain lunch. Sitting inside in bed. States he has is improved from last week. After discussion with Dr. Sy it appears fever was secondary to cholecystitis Objective - Vital Signs Vital signs: Vital Signs Temp 98.7 F 08/06/16 18:00 Pulse 74 08/06/16 18:00 Resp 16 08/06/16 18:00 BP 138/78 08/06/16 18:00 Pulse Ox 95 08/06/16 15:00 Intake & Output 08/06/16 08/06/16 08/07/16 06:59 18:59 06:59 Intake Total 100 50 Output Total 429 Balance -329 50 Weight 90.5 kg 90.5 kg Intake: IV 100 Piperacillin-Tazobactam 3 100 .375 gm In Dextrose/Water 1 50ml.bag @ 12.5 mls/hr IVPB Q12H [facility] Rx#: [id number] Intake, IV Titration 50 Amount Piperacillin-Tazobactam 3 50 .375 gm In Dextrose/Water 1 50ml.bag @ 12.5 mls/hr IVPB Q12H [facility] Rx#: [id number] Output: Post Void Residual 429 Other: Voiding Method Urinal - Constitutional General appearance: Present: obese - EENT Eyes: Present: PERRLA Ears: bilateral: normal - Respiratory Respiratory: bilateral: CTA - Cardiovascular Rhythm: regular - Gastrointestinal General gastrointestinal: Present: soft Localized gastrointestinal: tender: diffuse - Integumentary Integumentary: Present: normal - Neurologic Neurologic: Present: CNII-XII intact - Musculoskeletal Musculoskeletal: Present: generalized weakness - Psychiatric Psychiatric: Present: A&O x's 3, appropriate affect, intact judgment & insight - Labs CBC & Chem 7: 08/06/16 08:59 08/06/16 08:59 Labs: Abnormal Lab Results - Last 24 Hours (Table) 08/05/16 08/06/16 08/06/16 Range/Units 20:46 07:52 08:59 RBC 2.70 L (4.30-5.90) m/uL Hgb 7.9 L (13.0-17.5) gm/dL Hct 25.1 L (39.0-53.0) % Sodium (137-145) mmol/L Carbon Dioxide (22-30) mmol/L BUN (9-20) mg/dL Creatinine (0.66-1.25) mg/dL Glucose (74-99) mg/dL POC Glucose (mg/dL) 172 H 146 H (75-99) mg/dL Calcium (8.4-10.2) mg/dL 08/06/16 08/06/16 08/06/16 Range/Units 08:59 11:49 16:38 RBC (4.30-5.90) m/uL Hgb (13.0-17.5) gm/dL Hct (39.0-53.0) % Sodium 135 L (137-145) mmol/L Carbon Dioxide 18 L (22-30) mmol/L BUN 49 H (9-20) mg/dL Creatinine 10.42 H* (0.66-1.25) mg/dL Glucose 136 H (74-99) mg/dL POC Glucose (mg/dL) 143 H 171 H (75-99) mg/dL Calcium 7.0 L (8.4-10.2) mg/dL Assessment and Plan Plan: Assessment acute cholecystitis with acute sepsis on admission post laproscopic cholecystectomy end-stage renal disease on peritoneal dialysis end-stage five with GFR of 5 mental status changes metabolic encephalopathy acute and chronic history of deep venous thrombosis history of diabetes uncontrolled hyperglycemia A1c of 12.2 history of diabetic gastroparesis Plan hopeful discharge continued consultation with Dr. Mann regarding peritoneal dialysis follow up with surgical and family physician
[2016-08-06 21:28] LABS: Glucose,Whole Blood 157 mg/dL (75-99)
[2016-08-06] MEDS: ATORVASTATIN 80 MG TAB PO SCH (22:07)
--- NOTE | 2016-08-06 22:15 | P.PN ---
Subjective Principal diagnosis: sepsis 45-year-old male with long-standing history of diabetes mellitus type 2 presents to hospital with a sudden onset of high-grade fever with chills, no delmy rigor with severe body aches. Because he felt so poorly presented to the emergency center. There are temperature 100 and she was noted he was admitted to hospital for concerns to sepsis. His temperature is improved. is still having some nausea and emesis after his cholecystectomy but he does relate he feels considerably better than before the procedure. Is having no difficulties with cloudy fluid. But he had some constipation as well as urinary retention. After these are resolved but expect his dialysis to commence with less difficulties He has not had prior difficulties with peritonitis related to his dialysis. He is now feeling considerably better. Constipation is resolved. Urinary retention is resolved. CAPD fluid has been following more readily without evidence of cloudiness or tenderness. He has nausea and emesis have resolved. He definitely feels better. Abdominal pain is improved. Is improved today. Will be monitored for any urinary retention. Objective - Vital Signs Vital signs: Vital Signs Temp 98.7 F 08/06/16 18:00 Pulse 74 08/06/16 18:00 Resp 16 08/06/16 18:00 BP 138/78 08/06/16 18:00 Pulse Ox 95 08/06/16 15:00 Intake & Output 08/06/16 08/06/16 08/07/16 06:59 18:59 06:59 Intake Total 100 50 Output Total 429 Balance -329 50 Weight 90.5 kg 90.5 kg Intake: IV 100 Piperacillin-Tazobactam 3 100 .375 gm In Dextrose/Water 1 50ml.bag @ 12.5 mls/hr IVPB Q12H [facility] Rx#: [id number] Intake, IV Titration 50 Amount Piperacillin-Tazobactam 3 50 .375 gm In Dextrose/Water 1 50ml.bag @ 12.5 mls/hr IVPB Q12H [facility] Rx#: [id number] Output: Post Void Residual 429 Other: Voiding Method Urinal - Labs CBC & Chem 7: 08/06/16 08:59 08/06/16 08:59 Labs: Abnormal Lab Results - Last 24 Hours (Table) 08/06/16 08/06/16 08/06/16 Range/Units 07:52 08:59 08:59 RBC 2.70 L (4.30-5.90) m/uL Hgb 7.9 L (13.0-17.5) gm/dL Hct 25.1 L (39.0-53.0) % Sodium 135 L (137-145) mmol/L Carbon Dioxide 18 L (22-30) mmol/L BUN 49 H (9-20) mg/dL Creatinine 10.42 H* (0.66-1.25) mg/dL Glucose 136 H (74-99) mg/dL POC Glucose (mg/dL) 146 H (75-99) mg/dL Calcium 7.0 L (8.4-10.2) mg/dL 08/06/16 08/06/16 08/06/16 Range/Units 11:49 16:38 21:26 RBC (4.30-5.90) m/uL Hgb (13.0-17.5) gm/dL Hct (39.0-53.0) % Sodium (137-145) mmol/L Carbon Dioxide (22-30) mmol/L BUN (9-20) mg/dL Creatinine (0.66-1.25) mg/dL Glucose (74-99) mg/dL POC Glucose (mg/dL) 143 H 171 H 157 H (75-99) mg/dL Calcium (8.4-10.2) mg/dL Assessment and Plan (1) Fever Status: Acute (2) Gastroenteritis Status: Acute (3) End stage renal disease on dialysis Status: Chronic (4) Poorly controlled type 2 diabetes mellitus with circulatory disorder Status: Acute
[2016-08-06] MEDS: INSULIN GLARGINE 100 UNIT/ML 10 ML VIAL SQ SCH (22:25)
[2016-08-07] MEDS: HYDROmorphone 1 MG/ML 1 ML SYRINGE IVP PRN ×5 (03:23→20:56)
[2016-08-07] MEDS: DIALYSIS DEX INTRAPERIT SCH ×5 (06:02→23:07)
[2016-08-07] MEDS: PIPERACILLIN-TAZOBACTAM 3.375 GM in DEXTROSE/WATER 1 50ML.BAG IVPB SCH ×2 (06:02→17:35)
[2016-08-07] MEDS: ONDANSETRON 4 MG/2 ML VIAL IVP PRN ×2 (06:37→17:55)
[2016-08-07 07:44] LABS: Glucose,Whole Blood 155 mg/dL (75-99)
[2016-08-07] MEDS: INSULIN LISPRO (humaLOG) 300 UNIT/3 ML VIAL SQ SCH ×4 (08:20→21:52)
[2016-08-07] MEDS: AMIODARONE 200 MG TAB PO SCH ×2 (08:20→20:43)
[2016-08-07] MEDS: FOLIC ACID-VIT B COMPLEX-VIT C 1 CAP PO SCH (08:21)
[2016-08-07] MEDS: DIVALPROEX 250 MG TABLET.DR PO SCH ×3 (08:21→21:52)
[2016-08-07] MEDS: LACTULOSE 20 GM/30 ML CUP PO SCH ×4 (08:21→21:54)
[2016-08-07] MEDS: LEVOTHYROXINE 25 MCG TAB PO SCH (08:22)
[2016-08-07] MEDS: levETIRAcetam 500 MG TAB PO SCH ×2 (08:22→20:43)
[2016-08-07] MEDS: SODIUM BICARBONATE TAB 650 MG TAB PO SCH ×2 (08:22→20:44)
[2016-08-07] MEDS: SEVELAMER 800 MG TAB PO SCH ×3 (08:23→17:35)
--- NOTE | 2016-08-07 09:16 | P.PN ---
Subjective Patient is seen in follow-up for end-stage renal disease. He is maintained on peritoneal dialysis. Patient presented with nausea and vomiting. He underwent laparoscopic cholecystectomy on July 31. Denies chest pain or shortness of breath. He was constipated which is now resolved post lactulose. Continues to have abdominal discomfort but overall improved. Oral intake is starting to improve. Vital signs are stable. General: The patient appeared well nourished and normally developed. HEENT: Head exam is unremarkable. Neck is without jugular venous distension. LUNGS: Lungs are clear to auscultation and percussion. Breath sounds decreased. HEART: Rate and Rhythm are regular. First and second heart sounds normal. No murmurs, rubs or gallops. ABDOMEN: Abdominal exam reveals normal bowel sounds. Non-tender and non- distended. No evidence of peritonitis. EXTREMITITES: No clubbing, cyanosis, or edema. Amputation noted. Objective - Vital Signs Vital signs: Vital Signs Temp 97.1 F L 08/07/16 07:49 Pulse 74 08/07/16 07:49 Resp 18 08/07/16 07:49 BP 135/69 08/07/16 07:49 Pulse Ox 96 08/07/16 07:49 Intake & Output 08/06/16 08/07/16 08/07/16 18:59 06:59 18:59 Intake Total 50 Output Total 200 Balance 50 -200 Weight 90.5 kg 95 kg Intake: Intake, IV Titration 50 Amount Piperacillin-Tazobactam 3 50 .375 gm In Dextrose/Water 1 50ml.bag @ 12.5 mls/hr IVPB Q12H [facility] Rx#: [id number] Output: Urine 200 Other: Voiding Method Urinal # Voids 1 # Bowel Movements 1 - Labs CBC & Chem 7: 08/06/16 08:59 08/06/16 08:59 Labs: Abnormal Lab Results - Last 24 Hours (Table) 08/06/16 08/06/16 08/06/16 Range/Units 08:59 08:59 11:49 RBC 2.70 L (4.30-5.90) m/uL Hgb 7.9 L (13.0-17.5) gm/dL Hct 25.1 L (39.0-53.0) % Sodium 135 L (137-145) mmol/L Carbon Dioxide 18 L (22-30) mmol/L BUN 49 H (9-20) mg/dL Creatinine 10.42 H* (0.66-1.25) mg/dL Glucose 136 H (74-99) mg/dL POC Glucose (mg/dL) 143 H (75-99) mg/dL Calcium 7.0 L (8.4-10.2) mg/dL 08/06/16 08/06/16 08/07/16 Range/Units 16:38 21:26 07:42 RBC (4.30-5.90) m/uL Hgb (13.0-17.5) gm/dL Hct (39.0-53.0) % Sodium (137-145) mmol/L Carbon Dioxide (22-30) mmol/L BUN (9-20) mg/dL Creatinine (0.66-1.25) mg/dL Glucose (74-99) mg/dL POC Glucose (mg/dL) 171 H 157 H 155 H (75-99) mg/dL Calcium (8.4-10.2) mg/dL Assessment and Plan Plan: Assessment: #1. End-stage renal disease maintained on peritoneal dialysis. #2. Fever. Questionable viral syndrome. No evidence of peritonitis at this time. Also question of acute cholecystitis status post laparoscopic cholecystectomy on July 31. #3. Anemia of chronic kidney disease. Iron replete. #4. Chronic kidney disease mineral bone disease. #5. Insulin-dependent diabetes mellitus. #6. Metabolic acidosis secondary to chronic kidney disease. #7. Myoclonic jerking. Gabapentin level noted to be elevated. Dose has been appropriately decreased. Plan: Continue peritoneal dialysis exchanges with 750 mL every 6 hours. He seems to be draining well now. Maintain Aranesp. Maintain Renvela with meals. Nephrocaps daily. Antibiotics per infectious disease recommendations. Maintain lactulose as needed for constipation. No evidence of peritonitis at this time. Maintain oral sodium bicarbonate supplementation. Stable to be discharged home from nephrology standpoint. We will gradually increase volume of PD exchanges. Patient's brother is out of town who is a big help for him at home in terms of helping with peritoneal dialysis exchanges. He will be returning tomorrow. May need to hold discharge for 1 more day.
[2016-08-07 11:58] LABS: Glucose,Whole Blood 115 mg/dL (75-99)
[2016-08-07] MEDS: THIAMINE 100 MG TAB PO SCH (12:20)
[2016-08-07 17:16] LABS: Glucose,Whole Blood 117 mg/dL (75-99)
[2016-08-07] MEDS: TAMSULOSIN 0.4 MG CAP.ER.24H PO SCH (17:35)
[2016-08-07] MEDS: ATORVASTATIN 80 MG TAB PO SCH (20:43)
[2016-08-07 21:26] LABS: Glucose,Whole Blood 136 mg/dL (75-99)
[2016-08-07] MEDS: INSULIN GLARGINE 100 UNIT/ML 10 ML VIAL SQ SCH (21:50)
--- NOTE | 2016-08-07 22:51 | P.PN ---
Subjective Principal diagnosis: sepsis 45-year-old male with long-standing history of diabetes mellitus type 2 presents to hospital with a sudden onset of high-grade fever with chills, no delmy rigor with severe body aches. Because he felt so poorly presented to the emergency center. There are temperature 100 and she was noted he was admitted to hospital for concerns to sepsis. His temperature is improved. is still having some nausea and emesis after his cholecystectomy but he does relate he feels considerably better than before the procedure. Is having no difficulties with cloudy fluid. But he had some constipation as well as urinary retention. After these are resolved but expect his dialysis to commence with less difficulties He has not had prior difficulties with peritonitis related to his dialysis. He is now feeling considerably better. Constipation is resolved. Urinary retention is resolved. CAPD fluid has been following more readily without evidence of cloudiness or tenderness. He has nausea and emesis have resolved. He definitely feels better. Abdominal pain is improved. Is improved today. Will be monitored for any urinary retention. Objective - Vital Signs Vital signs: Vital Signs Temp 97.5 F L 08/07/16 15:00 Pulse 75 08/07/16 15:00 Resp 18 08/07/16 15:00 BP 146/71 08/07/16 15:00 Pulse Ox 94 L 08/07/16 15:00 Intake & Output 08/07/16 08/07/16 08/08/16 06:59 18:59 06:59 Output Total 200 400 Balance -200 -400 Weight 95 kg Output: Urine 200 400 Other: Voiding Method Urinal # Voids 1 # Bowel Movements 1 - Exam 45-year-old gentleman relates feels poorly after surgery having nausea and emesis. HEENT: Anicteric conjunctiva are pink and moist nasal mucosa grossly intact without significant lesions, there is no thrush. Recent surgical site to the eye is without erythema or tenderness Neck: The neck is supple without significant lymphadenopathy or thyromegaly. Lungs: Good bilateral air entry without significant crackles or wheezing. There is no significant bronchial sounds. There is no egophony or dullness. Heart: Regular rate and rhythm with an audible S1-S2, no S3 no S4. There is no significant murmur click or rub, PMI was nondisplaced. Abdomen:the patient is status post his cholecystectomy much less abdominal tenderness Extremities: The upper extremities have excellent pulses they are symmetric, no significant petechiae or telangiectasia. No splinter hemorrhages were noted. The lower extremities are free from significant edema. The peripheral pulses were 2+ and symmetric. Neuro: Awake alert oriented to person place and time. Skin shows evidence of the multiple tattoos but none of them are tender or fresh or infected - Labs CBC & Chem 7: 08/06/16 08:59 08/06/16 08:59 Labs: Abnormal Lab Results - Last 24 Hours (Table) 08/07/16 08/07/16 08/07/16 Range/Units 07:42 11:56 17:15 POC Glucose (mg/dL) 155 H 115 H 117 H (75-99) mg/dL 08/07/16 Range/Units 21:22 POC Glucose (mg/dL) 136 H (75-99) mg/dL Laboratory Results WBC 9.5 k/uL (3.8-10.6) 08/06/16 08:59 RBC 2.70 m/uL (4.30-5.90) L 08/06/16 08:59 Hgb 7.9 gm/dL (13.0-17.5) L 08/06/16 08:59 Hct 25.1 % (39.0-53.0) L 08/06/16 08:59 MCV 93.2 fL (80.0-100.0) 08/06/16 08:59 MCH 29.4 pg (25.0-35.0) 08/06/16 08:59 MCHC 31.6 g/dL (31.0-37.0) 08/06/16 08:59 RDW 13.4 % (11.5-15.5) 08/06/16 08:59 Plt Count 272 k/uL (150-450) 08/06/16 08:59 Neutrophils % 77 % 08/06/16 08:59 Lymphocytes % 10 % 08/06/16 08:59 Monocytes % 6 % 08/06/16 08:59 Eosinophils % 5 % 08/06/16 08:59 Basophils % 0 % 08/06/16 08:59 Neutrophils # 7.3 k/uL (1.3-7.7) 08/06/16 08:59 Lymphocytes # 1.0 k/uL (1.0-4.8) 08/06/16 08:59 Monocytes # 0.6 k/uL (0-1.0) 08/06/16 08:59 Eosinophils # 0.4 k/uL (0-0.7) 08/06/16 08:59 Basophils # 0.0 k/uL (0-0.2) 08/06/16 08:59 Manual Slide Review Performed 08/01/16 09:17 Hypochromasia Slight 08/06/16 08:59 Poikilocytosis (manual Present 08/01/16 09:17 PT 10.1 sec (9.0-12.0) 07/28/16 23:05 INR 1.0 (<1.1) 07/28/16 23:05 APTT 22.4 sec (22.0-30.0) 07/28/16 23:05 Sodium 135 mmol/L (137-145) L 08/06/16 08:59 Potassium 3.6 mmol/L (3.5-5.1) 08/06/16 08:59 Chloride 102 mmol/L (98-107) 08/06/16 08:59 Carbon Dioxide 18 mmol/L (22-30) L 08/06/16 08:59 Anion Gap 15 mmol/L 08/06/16 08:59 BUN 49 mg/dL (9-20) H 08/06/16 08:59 Creatinine 10.42 mg/dL (0.66-1.25) H* 08/06/16 08:59 Est GFR (MDRD) Af Amer 7 (>60 ml/min/1.73 sqM) 08/06/16 08:59 Est GFR (MDRD) Non-Af 5 (>60 ml/min/1.73 sqM) 08/06/16 08:59 Glucose 136 mg/dL (74-99) H 08/06/16 08:59 POC Glucose (mg/dL) 136 mg/dL (75-99) H 08/07/16 21:22 POC Glu Senior Graphic Designer ID Roshni Fuentes 08/07/16 21:[address] Glu mg/dL 303 mg/dL 07/29/16 06:21 Hemoglobin A1c 12.2 % (4.2-6.1) H 07/29/16 06:21 Plasma Lactic Acid Massimo 0.5 mmol/L (0.7-2.0) L 07/29/16 06:21 Calcium 7.0 mg/dL (8.4-10.2) L 08/06/16 08:59 Phosphorus 5.7 mg/dL (2.5-4.5) H 07/29/16 06:21 Magnesium 1.7 mg/dL (1.6-2.3) 07/28/16 23:05 Iron 41 ug/dL (49-181) L 07/29/16 06:21 TIBC 177 ug/dL (261-462) L 07/29/16 06:21 % Saturation 23.2 % (20-50) 07/29/16 06:21 Ferritin 901 ng/mL (18-464) H 07/29/16 06:21 Total Bilirubin 0.4 mg/dL (0.2-1.3) 08/03/16 09:43 AST 29 U/L (17-59) 08/03/16 09:43 ALT 34 U/L (21-72) 08/03/16 09:43 Alkaline Phosphatase 99 U/L (38-126) 08/03/16 09:43 Creatine Kinase 281 U/L (55-170) H 07/30/16 08:21 Troponin I <0.012 ng/mL (0.000-0.034) 07/28/16 23:05 Total Protein 4.9 g/dL (6.3-8.2) L 08/03/16 09:43 Albumin 2.4 g/dL (3.5-5.0) L 08/03/16 09:43 Amylase <30 U/L (30-110) L 07/28/16 23:05 Lipase 28 U/L (23-300) 07/28/16 23:05 Urine Color Yellow 07/29/16 01:00 Urine Appearance Clear (Clear) 07/29/16 01:00 Urine pH 8.0 (5.0-8.0) 07/29/16 01:00 Ur Specific [place] 1.010 (1.001-1.035) 07/29/16 01:00 Urine Protein 4+ (Negative) H 07/29/16 01:00 Urine Glucose (UA) 3+ (Negative) H 07/29/16 01:00 Urine Ketones Negative (Negative) 07/29/16 01:00 Urine Blood Small (Negative) H 07/29/16 01:00 Urine Nitrate Negative (Negative) 07/29/16 01:00 Urine Bilirubin Negative (Negative) 07/29/16 01:00 Urine Urobilinogen <2.0 mg/dL (<2.0) 07/29/16 01:00 Ur Leukocyte Esterase Negative (Negative) 07/29/16 01:00 Urine RBC 2 /hpf (0-5) 07/29/16 01:00 Urine WBC 2 /hpf (0-5) 07/29/16 01:00 Urine Bacteria Rare /hpf (None) H 07/29/16 01:00 Urine Mucus Rare /hpf (None) H 07/29/16 01:00 Fluid Source Peritoneal 07/28/16 23:50 Fluid Color Yellow 07/28/16 23:50 Fluid Appearance Clear 07/28/16 23:50 Fluid RBC 0 /uL 07/28/16 23:50 Fluid Nucleated Cells 6 /uL 07/28/16 23:50 Random Vancomycin 29.9 ug/mL 08/04/16 09:01 Gabapentin 36.1 ug/mL (2.0-12.0) H 08/01/16 16:53 Levetiracetam 39.7 ug/mL (3.0-60.0) 08/01/16 08:45 Influenza Type A RNA Not Detected (Not Detectd) 07/28/16 23:14 Influenza Type B (PCR) Not Detected (Not Detectd) 07/28/16 23:14 Miscellaneous Test Albumin, BF 07/28/16 23:50 Misc Test Result See comment 07/28/16 23:50 Microbiology 07/28/16 23:05 Blood Blood Culture - Final No Growth after 144 hours 07/28/16 23:50 Peritoneal Fluid Gram Stain - Final 07/28/16 23:50 Peritoneal Fluid Body Fluid Culture - Final 07/29/16 01:00 Urine,Voided Urine Culture - Final Assessment and Plan (1) Fever Narrative/Plan: 45-year-old male presents to the emergency center feeling very poorly. Having high-grade fever up to 102 associated with chills without delmy rigors. Significant myalgias occurred. He also had significant gastroenteritis with some nausea and abdominal pain without much diarrhea. He has not had significant hematemesis melena or hematochezia. The peritoneal fluid is clear and colorless with no stated amounts of white cells. Fortunately does not have evidence of peritoneal catheter-related infection. 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 imaging studies revealed evidence of abnormal gallbladder. He has been seen by surgery and constantly was taken to the operating room where a stone was noted to be obstructing the common bile duct. Other than some nausea and emesis he is feeling better. Vancomycin will be continued until we have further culture data. Zosyn added for now given the infectious process Cultures are in process. Maneuvers to improve his hydration and nausea have been given. Leukocytosis at admission likely due to his acute cholecystitis. His creatinine is gone up to 11.2 indicative some the difficulties of his current peritoneal dialysis. Is being seen by nephrology. At this time the patient is all negative cultures. We'll discontinue vancomycin therapy. Zosyn for the next 24 hours if he is getting ready for discharge to home. Would not the need further antibiotic therapy at discharge. He is having some urinary retention. Tamsulosin was added to help with this issue. May need to be taught to straight cath at home. Status: Acute (2) Gastroenteritis Status: Acute (3) End stage renal disease on dialysis Status: Chronic (4) Poorly controlled type 2 diabetes mellitus with circulatory disorder Status: Acute
[2016-08-08] MEDS: HYDROmorphone 1 MG/ML 1 ML SYRINGE IVP PRN ×5 (01:07→23:57)
[2016-08-08] MEDS: ONDANSETRON 4 MG/2 ML VIAL IVP PRN ×3 (01:11→23:01)
[2016-08-08] MEDS: DIALYSIS DEX INTRAPERIT SCH ×3 (05:35→23:09)
[2016-08-08] MEDS: PIPERACILLIN-TAZOBACTAM 3.375 GM in DEXTROSE/WATER 1 50ML.BAG IVPB SCH ×2 (05:43→18:22)
[2016-08-08 07:45] LABS: Glucose,Whole Blood 99 mg/dL (75-99)
[2016-08-08] MEDS: INSULIN LISPRO (humaLOG) 300 UNIT/3 ML VIAL SQ SCH ×4 (08:11→21:15)
[2016-08-08] MEDS: levETIRAcetam 500 MG TAB PO SCH ×2 (09:12→20:36)
[2016-08-08] MEDS: FOLIC ACID-VIT B COMPLEX-VIT C 1 CAP PO SCH (09:12)
[2016-08-08] MEDS: DIVALPROEX 250 MG TABLET.DR PO SCH ×3 (09:12→20:37)
[2016-08-08] MEDS: AMIODARONE 200 MG TAB PO SCH ×2 (09:12→20:37)
[2016-08-08] MEDS: THIAMINE 100 MG TAB PO SCH (09:12)
[2016-08-08] MEDS: SEVELAMER 800 MG TAB PO SCH ×3 (09:12→18:21)
[2016-08-08] MEDS: SODIUM BICARBONATE TAB 650 MG TAB PO SCH ×2 (09:13→20:36)
[2016-08-08] MEDS: LACTULOSE 20 GM/30 ML CUP PO SCH ×3 (09:13→18:21)
[2016-08-08] MEDS: LEVOTHYROXINE 25 MCG TAB PO SCH (09:14)
--- NOTE | 2016-08-08 11:56 | P.PN ---
Subjective Patient is seen in follow-up for end-stage renal disease. He is maintained on peritoneal dialysis. Patient presented with nausea and vomiting. He underwent laparoscopic cholecystectomy on July 31. Denies chest pain or shortness of breath. He again admits to constipation. Continues to have abdominal discomfort but overall improved. Oral intake is starting to improve. Did have vomiting yesterday. Vital signs are stable. General: The patient appeared well nourished and normally developed. HEENT: Head exam is unremarkable. Neck is without jugular venous distension. LUNGS: Lungs are clear to auscultation and percussion. Breath sounds decreased. HEART: Rate and Rhythm are regular. First and second heart sounds normal. No murmurs, rubs or gallops. ABDOMEN: Abdominal exam reveals normal bowel sounds. Non-tender and non- distended. No evidence of peritonitis. EXTREMITITES: No clubbing, cyanosis, or edema. Amputation noted. Objective - Vital Signs Vital signs: Vital Signs Temp 97.4 F L 08/08/16 07:00 Pulse 76 08/08/16 07:00 Resp 20 08/08/16 07:00 BP 129/70 08/08/16 07:00 Pulse Ox 93 L 08/08/16 07:00 Intake & Output 08/07/16 08/08/16 08/08/16 18:59 06:59 18:59 Output Total 400 350 Balance -400 -350 Weight 94 kg Output: Urine 400 350 Other: Voiding Method Urinal # Voids 1 - Labs CBC & Chem 7: 08/06/16 08:59 08/06/16 08:59 Labs: Abnormal Lab Results - Last 24 Hours (Table) 08/07/16 08/07/16 08/07/16 Range/Units 11:56 17:15 21:22 POC Glucose (mg/dL) 115 H 117 H 136 H (75-99) mg/dL Assessment and Plan Plan: Assessment: #1. End-stage renal disease maintained on peritoneal dialysis. #2. Fever. Questionable viral syndrome. No evidence of peritonitis at this time. Also question of acute cholecystitis status post laparoscopic cholecystectomy on July 31. #3. Anemia of chronic kidney disease. Iron replete. #4. Chronic kidney disease mineral bone disease. #5. Insulin-dependent diabetes mellitus. #6. Metabolic acidosis secondary to chronic kidney disease. #7. Myoclonic jerking. Gabapentin level noted to be elevated. Dose has been appropriately decreased. Plan: Continue peritoneal dialysis exchanges with 750 mL every 4 hours. He again is not draining completely. Maintain Aranesp. Maintain Renvela with meals. Nephrocaps daily. Antibiotics per infectious disease recommendations. Maintain lactulose as needed for constipation. No evidence of peritonitis at this time. Maintain oral sodium bicarbonate supplementation. I have increased the frequency of peritoneal dialysis exchanges to every 4 hours. If still having trouble with draining, will temporarily changed to hemodialysis until surgical wound heals.
[2016-08-08] MEDS ORDERED: DIALYSIS DEX INTRAPERIT SCH (12:00)
[2016-08-08] MEDS ORDERED: DEXTROSE 50%-WATER 50 ML SYRINGE IVP ONE ×2 (12:27→21:29)
[2016-08-08 12:31] LABS: Basophils % (A) 0 %; CHCM 33.4; Eosinophils # (A) 0.3 k/uL (0-0.7); Eosinophils % (A) 2 %; HDW 3.35; HGB 8.7 gm/dL (13.0-17.5); Luc # (Auto) 0.23; Luc % (Auto) 2; Lymphocytes # (A) 1.2 k/uL (1.0-4.8); Lymphocytes % (A) 8 %; MCHC 32.2 g/dL (31.0-37.0); MCV 90.1 fL (80.0-100.0); Mean Platelet Volume 7.1; Monocytes # (A) 0.8 k/uL (0-1.0); Monocytes % (A) 5 %; Neutrophils # (A) 12.4 k/uL (1.3-7.7); Neutrophils % (A) 83 %; RDW 13.8 % (11.5-15.5)
[2016-08-08 12:38] LABS: Calcium 7.1 mg/dL (8.4-10.2); Potassium 3.7 mmol/L (3.5-5.1); Total Bilirubin 0.4 mg/dL (0.2-1.3); Total Protein 5.2 g/dL (6.3-8.2)
[2016-08-08 12:45] LABS: Glucose,Whole Blood 59 mg/dL (75-99)
[2016-08-08 12:45] LABS: Glucose,Whole Blood 57 mg/dL (75-99)
[2016-08-08 12:45] LABS: Glucose,Whole Blood 60 mg/dL (75-99)
[2016-08-08 12:52] LABS: Glucose,Whole Blood 97 mg/dL (75-99)
[2016-08-08 15:15] LABS: Appearance,Urine Clear (Clear); Bilirubin,Urine Negative (Negative); Glucose,Urine (UA) 1+ (Negative); Ketones,Urine Negative (Negative); Leukocyte Esterase,Urine Negative (Negative); Mucus,Urine Rare /hpf; Nitrite,Urine Negative (Negative); Particle Count 1267; Protein,Urine 3+ (Negative); RBC,Urine 1 /hpf (0-5); Specific Gravity,Urine 1.005 (1.001-1.035); UA Billing (MACRO vs. MICRO) MICRO; Urobilinogen,Urine <2.0 mg/dL (<2.0)
--- NOTE | 2016-08-08 17:14 | P.PN ---
Subjective Principal diagnosis: sepsis 45-year-old male with long-standing history of diabetes mellitus type 2 presents to hospital with a sudden onset of high-grade fever with chills, no delmy rigor with severe body aches. Because he felt so poorly presented to the emergency center. There are temperature 100 and she was noted he was admitted to hospital for concerns to sepsis. His temperature is improved. is still having some nausea and emesis after his cholecystectomy but he does relate he feels considerably better than before the procedure. Is having no difficulties with cloudy fluid. But he had some constipation as well as urinary retention. After these are resolved but expect his dialysis to commence with less difficulties He has not had prior difficulties with peritonitis related to his dialysis. He is now feeling considerably better. Constipation is resolved. Urinary retention is resolved. CAPD fluid has been following more readily without evidence of cloudiness or tenderness. He has nausea and emesis have resolved. Was feeling better. Now having difficulties with his CAPD. It was not draining well. Giving him ongoing difficulties. Objective - Vital Signs Vital signs: Vital Signs Temp 99.2 F 08/08/16 15:00 Pulse 81 08/08/16 15:00 Resp 20 08/08/16 15:00 BP 141/77 08/08/16 15:00 Pulse Ox 93 L 08/08/16 15:00 Intake & Output 08/07/16 08/08/16 08/08/16 18:59 06:59 18:59 Intake Total 200 Output Total 401 055 9629 Balance -400 -350 -1050 Weight 94 kg Intake: Oral 200 Output: Urine 397 160 9645 Straight 700 Other: Voiding Method Urinal # Voids 1 - Exam 45-year-old gentleman relates feels poorly after surgery having nausea and emesis. HEENT: Anicteric conjunctiva are pink and moist nasal mucosa grossly intact without significant lesions, there is no thrush. Recent surgical site to the eye is without erythema or tenderness Neck: The neck is supple without significant lymphadenopathy or thyromegaly. Lungs: Good bilateral air entry without significant crackles or wheezing. There is no significant bronchial sounds. There is no egophony or dullness. Heart: Regular rate and rhythm with an audible S1-S2, no S3 no S4. There is no significant murmur click or rub, PMI was nondisplaced. Abdomen:the patient is status post his cholecystectomy much less abdominal tenderness Extremities: The upper extremities have excellent pulses they are symmetric, no significant petechiae or telangiectasia. No splinter hemorrhages were noted. The lower extremities are free from significant edema. The peripheral pulses were 2+ and symmetric. Neuro: Awake alert oriented to person place and time. Skin shows evidence of the multiple tattoos but none of them are tender or fresh or infected - Labs CBC & Chem 7: 08/08/16 11:56 08/08/16 11:56 Labs: Abnormal Lab Results - Last 24 Hours (Table) 08/07/16 08/07/16 08/08/16 Range/Units 17:15 21:22 11:53 WBC (3.8-10.6) k/uL RBC (4.30-5.90) m/uL Hgb (13.0-17.5) gm/dL Hct (39.0-53.0) % Neutrophils # (1.3-7.7) k/uL Sodium (137-145) mmol/L BUN (9-20) mg/dL Creatinine (0.66-1.25) mg/dL Glucose (74-99) mg/dL POC Glucose (mg/dL) 117 H 136 H 60 L (75-99) mg/dL Calcium (8.4-10.2) mg/dL Total Protein (6.3-8.2) g/dL Albumin (3.5-5.0) g/dL Urine Protein (Negative) Urine Glucose (UA) (Negative) Urine Mucus (None) /hpf 08/08/16 08/08/16 08/08/16 Range/Units 11:56 11:56 12:09 WBC 15.0 H (3.8-10.6) k/uL RBC 3.00 L (4.30-5.90) m/uL Hgb 8.7 L (13.0-17.5) gm/dL Hct 27.0 L (39.0-53.0) % Neutrophils # 12.4 H (1.3-7.7) k/uL Sodium 135 L (137-145) mmol/L BUN 45 H (9-20) mg/dL Creatinine 10.34 H* (0.66-1.25) mg/dL Glucose 58 L (74-99) mg/dL POC Glucose (mg/dL) 59 L (75-99) mg/dL Calcium 7.1 L (8.4-10.2) mg/dL Total Protein 5.2 L (6.3-8.2) g/dL Albumin 2.3 L (3.5-5.0) g/dL Urine Protein (Negative) Urine Glucose (UA) (Negative) Urine Mucus (None) /hpf 08/08/16 08/08/16 Range/Units 12:25 15:00 WBC (3.8-10.6) k/uL RBC (4.30-5.90) m/uL Hgb (13.0-17.5) gm/dL Hct (39.0-53.0) % Neutrophils # (1.3-7.7) k/uL Sodium (137-145) mmol/L BUN (9-20) mg/dL Creatinine (0.66-1.25) mg/dL Glucose (74-99) mg/dL POC Glucose (mg/dL) 57 L (75-99) mg/dL Calcium (8.4-10.2) mg/dL Total Protein (6.3-8.2) g/dL Albumin (3.5-5.0) g/dL Urine Protein 3+ H (Negative) Urine Glucose (UA) 1+ H (Negative) Urine Mucus Rare H (None) /hpf Laboratory Results WBC 15.0 k/uL (3.8-10.6) H 08/08/16 11:56 RBC 3.00 m/uL (4.30-5.90) L 08/08/16 11:56 Hgb 8.7 gm/dL (13.0-17.5) L 08/08/16 11:56 Hct 27.0 % (39.0-53.0) L 08/08/16 11:56 MCV 90.1 fL (80.0-100.0) 08/08/16 11:56 MCH 29.0 pg (25.0-35.0) 08/08/16 11:56 MCHC 32.2 g/dL (31.0-37.0) 08/08/16 11:56 RDW 13.8 % (11.5-15.5) 08/08/16 11:56 Plt Count 307 k/uL (150-450) 08/08/16 11:56 Neutrophils % 83 % 08/08/16 11:56 Lymphocytes % 8 % 08/08/16 11:56 Monocytes % 5 % 08/08/16 11:56 Eosinophils % 2 % 08/08/16 11:56 Basophils % 0 % 08/08/16 11:56 Neutrophils # 12.4 k/uL (1.3-7.7) H 08/08/16 11:56 Lymphocytes # 1.2 k/uL (1.0-4.8) 08/08/16 11:56 Monocytes # 0.8 k/uL (0-1.0) 08/08/16 11:56 Eosinophils # 0.3 k/uL (0-0.7) 08/08/16 11:56 Basophils # 0.0 k/uL (0-0.2) 08/08/16 11:56 Manual Slide Review Performed 08/01/16 09:17 Hypochromasia Slight 08/06/16 08:59 Poikilocytosis (manual Present 08/01/16 09:17 PT 10.1 sec (9.0-12.0) 07/28/16 23:05 INR 1.0 (<1.1) 07/28/16 23:05 APTT 22.4 sec (22.0-30.0) 07/28/16 23:05 Sodium 135 mmol/L (137-145) L 08/08/16 11:56 Potassium 3.7 mmol/L (3.5-5.1) 08/08/16 11:56 Chloride 98 mmol/L (98-107) 08/08/16 11:56 Carbon Dioxide 22 mmol/L (22-30) 08/08/16 11:56 Anion Gap 15 mmol/L 08/08/16 11:56 BUN 45 mg/dL (9-20) H 08/08/16 11:56 Creatinine 10.34 mg/dL (0.66-1.25) H* 08/08/16 11:56 Est GFR (MDRD) Af Amer 7 (>60 ml/min/1.73 sqM) 08/08/16 11:56 Est GFR (MDRD) Non-Af 5 (>60 ml/min/1.73 sqM) 08/08/16 11:56 Glucose 58 mg/dL (74-99) L 08/08/16 11:56 POC Glucose (mg/dL) 97 mg/dL (75-99) 08/08/16 12:49 POC Glu [employer] ID Gabriella Callahan 08/08/16 12:[address] Glu mg/dL 303 mg/dL 07/29/16 06:21 Hemoglobin A1c 12.2 % (4.2-6.1) H 07/29/16 06:21 Plasma Lactic Acid Massimo 0.5 mmol/L (0.7-2.0) L 07/29/16 06:21 Calcium 7.1 mg/dL (8.4-10.2) L 08/08/16 11:56 Phosphorus 5.7 mg/dL (2.5-4.5) H 07/29/16 06:21 Magnesium 1.7 mg/dL (1.6-2.3) 07/28/16 23:05 Iron 41 ug/dL (49-181) L 07/29/16 06:21 TIBC 177 ug/dL (261-462) L 07/29/16 06:21 % Saturation 23.2 % (20-50) 07/29/16 06:21 Ferritin 901 ng/mL (18-464) H 07/29/16 06:21 Total Bilirubin 0.4 mg/dL (0.2-1.3) 08/08/16 11:56 AST 21 U/L (17-59) 08/08/16 11:56 ALT 28 U/L (21-72) 08/08/16 11:56 Alkaline Phosphatase 106 U/L (38-126) 08/08/16 11:56 Creatine Kinase 281 U/L (55-170) H 07/30/16 08:21 Troponin I <0.012 ng/mL (0.000-0.034) 07/28/16 23:05 Total Protein 5.2 g/dL (6.3-8.2) L 08/08/16 11:56 Albumin 2.3 g/dL (3.5-5.0) L 08/08/16 11:56 Amylase <30 U/L (30-110) L 07/28/16 23:05 Lipase 28 U/L (23-300) 07/28/16 23:05 Urine Color Light Yellow 08/08/16 15:00 Urine Appearance Clear (Clear) 08/08/16 15:00 Urine pH 7.0 (5.0-8.0) 08/08/16 15:00 Ur Specific [place] 1.005 (1.001-1.035) 08/08/16 15:00 Urine Protein 3+ (Negative) H 08/08/16 15:00 Urine Glucose (UA) 1+ (Negative) H 08/08/16 15:00 Urine Ketones Negative (Negative) 08/08/16 15:00 Urine Blood Negative (Negative) 08/08/16 15:00 Urine Nitrate Negative (Negative) 08/08/16 15:00 Urine Bilirubin Negative (Negative) 08/08/16 15:00 Urine Urobilinogen <2.0 mg/dL (<2.0) 08/08/16 15:00 Ur Leukocyte Esterase Negative (Negative) 08/08/16 15:00 Urine RBC 1 /hpf (0-5) 08/08/16 15:00 Urine WBC 2 /hpf (0-5) 07/29/16 01:00 Urine Bacteria Rare /hpf (None) H 07/29/16 01:00 Urine Mucus Rare /hpf (None) H 08/08/16 15:00 Fluid Source Peritoneal 07/28/16 23:50 Fluid Color Yellow 07/28/16 23:50 Fluid Appearance Clear 07/28/16 23:50 Fluid RBC 0 /uL 07/28/16 23:50 Fluid Nucleated Cells 6 /uL 07/28/16 23:50 Random Vancomycin 29.9 ug/mL 08/04/16 09:01 Gabapentin 36.1 ug/mL (2.0-12.0) H 08/01/16 16:53 Levetiracetam 39.7 ug/mL (3.0-60.0) 08/01/16 08:45 Influenza Type A RNA Not Detected (Not Detectd) 07/28/16 23:14 Influenza Type B (PCR) Not Detected (Not Detectd) 07/28/16 23:14 Miscellaneous Test Albumin, BF 07/28/16 23:50 Misc Test Result See comment 07/28/16 23:50 Microbiology 07/28/16 23:05 Blood Blood Culture - Final No Growth after 144 hours 07/28/16 23:50 Peritoneal Fluid Gram Stain - Final 07/28/16 23:50 Peritoneal Fluid Body Fluid Culture - Final 07/29/16 01:00 Urine,Voided Urine Culture - Final Assessment and Plan (1) Fever Narrative/Plan: 45-year-old male presents to the emergency center feeling very poorly. Having high-grade fever up to 102 associated with chills without delmy rigors. Significant myalgias occurred. He also had significant gastroenteritis with some nausea and abdominal pain without much diarrhea. He has not had significant hematemesis melena or hematochezia. The peritoneal fluid is clear and colorless with no stated amounts of white cells. Fortunately does not have evidence of peritoneal catheter-related infection. 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 imaging studies revealed evidence of abnormal gallbladder. He has been seen by surgery and constantly was taken to the operating room where a stone was noted to be obstructing the common bile duct. Other than some nausea and emesis he is feeling better. Vancomycin will be continued until we have further culture data. Zosyn added for now given the infectious process Cultures are in process. Maneuvers to improve his hydration and nausea have been given. Leukocytosis at admission likely due to his acute cholecystitis. His creatinine is gone up to 11.2 indicative some the difficulties of his current peritoneal dialysis. Is being seen by nephrology. At this time the patient is all negative cultures. We'll discontinue vancomycin therapy. Zosyn for the next 24 hours if he is getting ready for discharge to home. Would not the need further antibiotic therapy at discharge. He is having some urinary retention. Tamsulosin was added to help with this issue. With his difficulties with emptying of his CAPD 12. Was concerned that he was still having urinary retention. Straight cath was requested. 7 her cc was evacuated. Still not having good drainage from his peritoneum. Nephrology suggesting short-term hemodialysis to improve his uremia is overall status and hopefully will then get back to CAPD. Status: Acute (2) Gastroenteritis Status: Acute (3) End stage renal disease on dialysis Status: Chronic (4) Poorly controlled type 2 diabetes mellitus with circulatory disorder Status: Acute
[2016-08-08 17:37] LABS: Glucose,Whole Blood 75 mg/dL (75-99)
[2016-08-08] MEDS: TAMSULOSIN 0.4 MG CAP.ER.24H PO SCH (18:21)
[2016-08-08] MEDS: ATORVASTATIN 80 MG TAB PO SCH (20:37)
[2016-08-08] MEDS: INSULIN GLARGINE 100 UNIT/ML 10 ML VIAL SQ SCH (21:14)
[2016-08-08 21:45] LABS: Glucose,Whole Blood 59 mg/dL (75-99)
[2016-08-08 21:45] LABS: Glucose,Whole Blood 59 mg/dL (75-99)
[2016-08-08 21:57] LABS: Glucose,Whole Blood 131 mg/dL (75-99)
[2016-08-08] MEDS: ACETAMINOPHEN TAB 325 MG TAB PO PRN (22:05)
[2016-08-09] MEDS: LACTULOSE 20 GM/30 ML CUP PO SCH ×5 (00:50→20:49)
[2016-08-09] MEDS: DIALYSIS DEX INTRAPERIT SCH ×7 (01:09→23:27)
[2016-08-09 01:54] LABS: Glucose,Whole Blood 80 mg/dL (75-99)
[2016-08-09] MEDS: HYDROmorphone 1 MG/ML 1 ML SYRINGE IVP PRN ×5 (03:01→22:06)
[2016-08-09] MEDS ORDERED: DEXTROSE 50%-WATER 50 ML SYRINGE IVP ONE ×2 (04:32→11:58)
[2016-08-09 04:50] LABS: Glucose,Whole Blood 58 mg/dL (75-99)
[2016-08-09 05:30] LABS: Glucose,Whole Blood 107 mg/dL (75-99)
[2016-08-09] MEDS: PIPERACILLIN-TAZOBACTAM 3.375 GM in DEXTROSE/WATER 1 50ML.BAG IVPB SCH ×2 (06:11→16:47)
[2016-08-09 07:57] LABS: Glucose,Whole Blood 76 mg/dL (75-99)
[2016-08-09] MEDS: INSULIN LISPRO (humaLOG) 300 UNIT/3 ML VIAL SQ SCH ×4 (08:00→20:56)
[2016-08-09] MEDS: SEVELAMER 800 MG TAB PO SCH ×3 (08:59→17:18)
[2016-08-09] MEDS: DIVALPROEX 250 MG TABLET.DR PO SCH ×3 (08:59→20:49)
[2016-08-09] MEDS: LEVOTHYROXINE 25 MCG TAB PO SCH (08:59)
[2016-08-09] MEDS: SODIUM BICARBONATE TAB 650 MG TAB PO SCH ×2 (08:59→20:49)
[2016-08-09] MEDS: FOLIC ACID-VIT B COMPLEX-VIT C 1 CAP PO SCH (09:00)
[2016-08-09] MEDS: AMIODARONE 200 MG TAB PO SCH ×2 (09:00→20:50)
[2016-08-09] MEDS: levETIRAcetam 500 MG TAB PO SCH ×2 (09:00→20:49)
--- NOTE | 2016-08-09 09:38 | PN ---
DATE OF SERVICE: 08/08/2016 I am covering for Dr. José Cm. This 45-year-old gentleman who was admitted with acute cholecystitis and surgery and sepsis also had significant renal failure also. The patient is continued on peritoneal dialysis with some relief. Patient is still complaining of not feeling well, weak and tired and also has some abdominal pain. The dose has been adjusted by Dr. Mann. The patient also had myoclonic jerks, possibly related to Neurontin toxicity. The patient is improved significantly, but the possibility of hemodialysis is also consideration. As far as the cultures are concerned, the cultures are negative so far. Multiple consultants including Dr. Mann and Dr. Sy are following the patient closely. PAST MEDICAL HISTORY: Reviewed. REVIEW OF SYSTEMS: CARDIOVASCULAR: No angina. Respiratory: As mentioned earlier. GI: As mentioned earlier. : As mentioned earlier. NERVOUS SYSTEM: No numbness or weakness. Medications are reviewed and include: 1. Tylenol 650 q.6 p.r.n. 2. Cordarone 200 mg p.o. b.i.d. 3. Lipitor 80 mg at bedtime. 4. Aranesp 40 mcg q.7 days. 5. Depakote 250 mg p.o. t.i.d. 6. Flonase. 7. Dilaudid. 8. Lantus. 9. Humalog. 10. Cephulac. 11. Keppra 750 p.o. b.i.d. 12. Synthroid 25 mcg daily. 13. Ativan. 14. Zofran. 15. Zosyn IV. 16. Sodium bicarb. 17. Flomax. 18. Vitamin B1. PHYSICAL EXAMINATION: The patient is alert and oriented x2. Pulse 81, blood pressure 141/76, respirations 20, temperature 99.1, pulse ox 93% on 2-L. HEENT: Conjunctivae normal. NECK: No jugular venous distention. CARDIOVASCULAR: S1 and S2, muffled. RESPIRATORY: Breath sounds diminished at the bases. A few scattered rhonchi and crackles. ABDOMEN: Soft, mild diffuse discomfort, no guarding, no rigidity. No mass palpable. Status post peritoneal dialysis. LEGS: No edema, no swelling. NERVOUS SYSTEM: No focal deficits. LABS: Accu-Cheks 97, 95. Otherwise, UA noted. CBC: WBC 15, hemoglobin is 8.7. ASSESSMENT: 1. Acute cholecystitis with cystic duct obstruction secondary to cholelithiasis and as well as acute sepsis, present on admission, status post laparoscopic cholecystectomy. 2. End-stage renal disease on peritoneal dialysis with chronic kidney disease stage V. 3. Change in mental status, metabolic encephalopathy, multifactorial. 4. Multiple myoclonic jerks. 5. Possible Neurontin toxicity. 6. History of deep venous thrombosis. 7. History of coronary artery disease. 8. Diabetes mellitus type 2, uncontrolled. 9. History of gastroesophageal reflux disease. 10. History of diabetic gastroparesis. 11. Hemoglobin A1c 12.2. 12. Hyponatremia. 13. Increased WBC. 14. Anemia of chronic disease. 15. FULL CODE. RECOMMENDATIONS AND DISCUSSION: I recommend to continue current medications, continue with monitoring and symptomatic treatment. Otherwise, follow the cultures. Repeat labs. Closely follow with nephrology. The possibility of hemodialysis to be considered. Prognosis once again is extremely guarded because of multiple complex medical issues as listed above. Patient undergoing peritoneal dialysis currently. Further recommendations to follow.
--- NOTE | 2016-08-09 10:08 | P.GSHP ---
History of Present Illness 45-year-old white male, patient known to me from the past patient has history of chronic failure on peritoneal dialysis patient has been admitted with abdominal pain she he had a cholecystectomy in July 31 of is consulted for placement of dialysis catheter Medical history history of diabetes chronic renal failure On examination neck supple chest clear auscultation abdomen protuberant tender femoral pulses are present Plan is placement of dialysis catheter risk and complication discussed thank you Past Medical History Past Medical History: Coronary Artery Disease (CAD), Diabetes Mellitus, Dialysis , Deep Vein Thrombosis (DVT), GERD/Reflux, Hyperlipidemia, Hypertension, Myocardial Infarction ([place]), Musculoskeletal Disorder, Renal Disease, Seizure Disorder Additional Past Medical History / Comment(s): Diabetic gastropathy, End stage renal disease currently on peritoneal dialysis , peripheral neuropathy, seizure disorder, compression fracture of the vertebral along with known history of this disease, blood clot from IV line in the upper extremity on the left, coronary artery disease, previous myocardial infarction, insulin- dependent diabetes mellitus, GE reflux, gastritis, chronic anemia, cataracts, currently on peritoneal dialysis, peripheral vascular disease with previous amputation involving a below-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 Last Myocardial Infarction Date:: 2012 History of Any Multi-Drug Resistant Organisms: MRSA Date of last positivie culture/infection: 04/08/15 MDRO Source:: Blood & Left Foot Past Surgical History: Orthopedic Surgery Additional Past Surgical History / Comment(s): amputation right toes, BKA right leg 2013, GEORGE CATARACTS,VITRECTOMY,GEORGE RETINAL SX Past Anesthesia/Blood Transfusion Reactions: No Reported Reaction Additional Past Anesthesia/Blood Transfusion Reaction / Comment(s): VERTIGO Past Psychological History: No Psychological Hx Reported Additional Psychological History / Comment(s): Single. Tobacco smoker. Denies significant alcohol or recreational drug use. Originally was from the [place] area and then moved down to [place]. Is now moved back to be with his family members in [place] since 2014. He has no experience. He denies any significant travel history. Brother has a pet dog in the home in which he lives. Relates that his 13-year-old daughter 2 years ago from suicide at the age of 13 Smoking Status: Never smoker Past Alcohol Use History: None Reported Past Drug Use History: None Reported - Past Family History Father Family Medical History: Cancer Additional Family Medical History / Comment(s): CANCER FROM [employer] Mother History Unknown: Yes Family Medical History: Cancer, Supraventricular Tachycardia (SVT) Additional Family Medical History / Comment(s): LUNG CANCER(SMOKER) Medications and Allergies Home Medications Medication Instructions Recorded Confirmed Type Atorvastatin [Lipitor] 80 mg PO HS 04/08/15 07/31/16 History Calcium Acetate [PhosLo] 1,334 mg PO TID-W/MEALS 04/08/15 07/31/16 History Fluticasone Propionate [Flonase 2 spray EA NOSTRIL DAILY PRN 04/08/15 07/31/16 History Allergy Relief] Folic Acid 1 mg PO DAILY 04/08/15 07/31/16 History Folic Acid-Vit B Complex-Vit C 1 cap PO HS 04/08/15 07/31/16 History [Nephrocaps] Gabapentin [Neurontin] 300 mg PO TID 04/08/15 07/31/16 History Insulin Glargine [Lantus] 10 unit SQ HS 04/08/15 07/31/16 History Levothyroxine Sodium [Synthroid] 25 mcg PO DAILY 04/08/15 07/31/16 History Insulin Aspart [NovoLOG] See Protocol SQ AC-TID 05/21/15 07/31/16 History levETIRAcetam [Keppra] 750 mg PO Q12HR 05/21/15 07/31/16 History Amiodarone [Cordarone] 200 mg PO BID 01/20/16 07/31/16 History Famotidine [Pepcid] 20 mg PO BID 01/20/16 07/31/16 History Sevelamer [Renvela] 1,600 mg PO AC-TID 01/20/16 07/31/16 History acetaZOLAMIDE [Diamox] 125 mg PO BID 01/20/16 07/31/16 History Xcfpdtuw-Najohiojnl-Pyyg Oint 1 applic TOPICAL DAILY 07/28/16 07/31/16 History [Triple Antibiotic Ointment] amLODIPine [Norvasc] 10 mg PO DAILY 07/28/16 07/31/16 History Allergies Allergy/AdvReac Type Severity Reaction Status Date / Time No Known Allergies Allergy Verified 07/28/16 22:49 Surgical - Exam Vital Signs Temp Pulse Resp BP Pulse Ox 102 F H 96 18 110/59 97 07/28/16 22:32 07/28/16 22:32 07/28/16 22:32 07/28/16 22:32 07/28/16 22:32 Results - Labs 08/08/16 11:56 08/08/16 11:56 Abnormal Lab Results - Last 24 Hours (Table) 08/08/16 08/08/16 08/08/16 Range/Units 11:53 11:56 11:56 WBC 15.0 H (3.8-10.6) k/uL RBC 3.00 L (4.30-5.90) m/uL Hgb 8.7 L (13.0-17.5) gm/dL Hct 27.0 L (39.0-53.0) % Neutrophils # 12.4 H (1.3-7.7) k/uL Sodium 135 L (137-145) mmol/L BUN 45 H (9-20) mg/dL Creatinine 10.34 H* (0.66-1.25) mg/dL Glucose 58 L (74-99) mg/dL POC Glucose (mg/dL) 60 L (75-99) mg/dL Calcium 7.1 L (8.4-10.2) mg/dL Total Protein 5.2 L (6.3-8.2) g/dL Albumin 2.3 L (3.5-5.0) g/dL Urine Protein (Negative) Urine Glucose (UA) (Negative) Urine Mucus (None) /hpf 08/08/16 08/08/16 08/08/16 Range/Units 12:09 12:25 15:00 WBC (3.8-10.6) k/uL RBC (4.30-5.90) m/uL Hgb (13.0-17.5) gm/dL Hct (39.0-53.0) % Neutrophils # (1.3-7.7) k/uL Sodium (137-145) mmol/L BUN (9-20) mg/dL Creatinine (0.66-1.25) mg/dL Glucose (74-99) mg/dL POC Glucose (mg/dL) 59 L 57 L (75-99) mg/dL Calcium (8.4-10.2) mg/dL Total Protein (6.3-8.2) g/dL Albumin (3.5-5.0) g/dL Urine Protein 3+ H (Negative) Urine Glucose (UA) 1+ H (Negative) Urine Mucus Rare H (None) /hpf 08/08/16 08/08/16 08/08/16 Range/Units 21:07 21:25 21:55 WBC (3.8-10.6) k/uL RBC (4.30-5.90) m/uL Hgb (13.0-17.5) gm/dL Hct (39.0-53.0) % Neutrophils # (1.3-7.7) k/uL Sodium (137-145) mmol/L BUN (9-20) mg/dL Creatinine (0.66-1.25) mg/dL Glucose (74-99) mg/dL POC Glucose (mg/dL) 59 L 59 L 131 H (75-99) mg/dL Calcium (8.4-10.2) mg/dL Total Protein (6.3-8.2) g/dL Albumin (3.5-5.0) g/dL Urine Protein (Negative) Urine Glucose (UA) (Negative) Urine Mucus (None) /hpf 08/09/16 08/09/16 Range/Units 04:29 05:28 WBC (3.8-10.6) k/uL RBC (4.30-5.90) m/uL Hgb (13.0-17.5) gm/dL Hct (39.0-53.0) % Neutrophils # (1.3-7.7) k/uL Sodium (137-145) mmol/L BUN (9-20) mg/dL Creatinine (0.66-1.25) mg/dL Glucose (74-99) mg/dL POC Glucose (mg/dL) 58 L 107 H (75-99) mg/dL Calcium (8.4-10.2) mg/dL Total Protein (6.3-8.2) g/dL Albumin (3.5-5.0) g/dL Urine Protein (Negative) Urine Glucose (UA) (Negative) Urine Mucus (None) /hpf Microbiology - Last 24 Hours (Table) 08/08/16 15:00 Urine Culture - Preliminary Urine,Catheterized Diabetes panel 08/08/16 Range/Units 11:56 Sodium 135 L (137-145) mmol/L Potassium 3.7 (3.5-5.1) mmol/L Chloride 98 (98-107) mmol/L Carbon Dioxide 22 (22-30) mmol/L BUN 45 H (9-20) mg/dL Creatinine 10.34 H* (0.66-1.25) mg/dL Glucose 58 L (74-99) mg/dL Calcium 7.1 L (8.4-10.2) mg/dL AST 21 (17-59) U/L ALT 28 (21-72) U/L Alkaline Phosphatase 106 (38-126) U/L Total Protein 5.2 L (6.3-8.2) g/dL Albumin 2.3 L (3.5-5.0) g/dL Calcium panel 08/08/16 Range/Units 11:56 Calcium 7.1 L (8.4-10.2) mg/dL Albumin 2.3 L (3.5-5.0) g/dL Pituitary panel 08/08/16 Range/Units 11:56 Sodium 135 L (137-145) mmol/L Potassium 3.7 (3.5-5.1) mmol/L Chloride 98 (98-107) mmol/L Carbon Dioxide 22 (22-30) mmol/L BUN 45 H (9-20) mg/dL Creatinine 10.34 H* (0.66-1.25) mg/dL Glucose 58 L (74-99) mg/dL Calcium 7.1 L (8.4-10.2) mg/dL Adrenal panel 08/08/16 Range/Units 11:56 Sodium 135 L (137-145) mmol/L Potassium 3.7 (3.5-5.1) mmol/L Chloride 98 (98-107) mmol/L Carbon Dioxide 22 (22-30) mmol/L BUN 45 H (9-20) mg/dL Creatinine 10.34 H* (0.66-1.25) mg/dL Glucose 58 L (74-99) mg/dL Calcium 7.1 L (8.4-10.2) mg/dL Total Bilirubin 0.4 (0.2-1.3) mg/dL AST 21 (17-59) U/L ALT 28 (21-72) U/L Alkaline Phosphatase 106 (38-126) U/L Total Protein 5.2 L (6.3-8.2) g/dL Albumin 2.3 L (3.5-5.0) g/dL
--- NOTE | 2016-08-09 10:59 | P.PN ---
Subjective Patient is seen in follow-up for end-stage renal disease. He is maintained on peritoneal dialysis. Patient presented with nausea and vomiting. He underwent laparoscopic cholecystectomy on July 31. Denies chest pain or shortness of breath. Continues to have abdominal discomfort but overall improved. Oral intake is starting to improve. He is having trouble with peritoneal dialysis drains again. Vital signs are stable. General: The patient appeared well nourished and normally developed. HEENT: Head exam is unremarkable. Neck is without jugular venous distension. LUNGS: Lungs are clear to auscultation and percussion. Breath sounds decreased. HEART: Rate and Rhythm are regular. First and second heart sounds normal. No murmurs, rubs or gallops. ABDOMEN: Abdominal exam reveals normal bowel sounds. Non-tender and non- distended. No evidence of peritonitis. EXTREMITITES: No clubbing, cyanosis, or edema. Amputation noted. Objective - Vital Signs Vital signs: Vital Signs Temp 97.5 F L 08/09/16 07:00 Pulse 87 08/09/16 07:00 Resp 19 08/09/16 07:00 BP 149/81 08/09/16 07:00 Pulse Ox 91 L 08/09/16 07:00 Intake & Output 08/08/16 08/09/16 08/09/16 18:59 06:59 18:59 Intake Total 200 Output Total 1250 1900 Balance -1050 -1900 Weight 92.5 kg Intake: Oral 200 Output: Urine 1250 1200 Straight 700 600 Stool 700 Other: # Voids 1 # Bowel Movements 4 - Labs CBC & Chem 7: 08/08/16 11:56 08/08/16 11:56 Labs: Abnormal Lab Results - Last 24 Hours (Table) 08/08/16 08/08/16 08/08/16 Range/Units 11:53 11:56 11:56 WBC 15.0 H (3.8-10.6) k/uL RBC 3.00 L (4.30-5.90) m/uL Hgb 8.7 L (13.0-17.5) gm/dL Hct 27.0 L (39.0-53.0) % Neutrophils # 12.4 H (1.3-7.7) k/uL Sodium 135 L (137-145) mmol/L BUN 45 H (9-20) mg/dL Creatinine 10.34 H* (0.66-1.25) mg/dL Glucose 58 L (74-99) mg/dL POC Glucose (mg/dL) 60 L (75-99) mg/dL Calcium 7.1 L (8.4-10.2) mg/dL Total Protein 5.2 L (6.3-8.2) g/dL Albumin 2.3 L (3.5-5.0) g/dL Urine Protein (Negative) Urine Glucose (UA) (Negative) Urine Mucus (None) /hpf 08/08/16 08/08/16 08/08/16 Range/Units 12:09 12:25 15:00 WBC (3.8-10.6) k/uL RBC (4.30-5.90) m/uL Hgb (13.0-17.5) gm/dL Hct (39.0-53.0) % Neutrophils # (1.3-7.7) k/uL Sodium (137-145) mmol/L BUN (9-20) mg/dL Creatinine (0.66-1.25) mg/dL Glucose (74-99) mg/dL POC Glucose (mg/dL) 59 L 57 L (75-99) mg/dL Calcium (8.4-10.2) mg/dL Total Protein (6.3-8.2) g/dL Albumin (3.5-5.0) g/dL Urine Protein 3+ H (Negative) Urine Glucose (UA) 1+ H (Negative) Urine Mucus Rare H (None) /hpf 08/08/16 08/08/16 08/08/16 Range/Units 21:07 21:25 21:55 WBC (3.8-10.6) k/uL RBC (4.30-5.90) m/uL Hgb (13.0-17.5) gm/dL Hct (39.0-53.0) % Neutrophils # (1.3-7.7) k/uL Sodium (137-145) mmol/L BUN (9-20) mg/dL Creatinine (0.66-1.25) mg/dL Glucose (74-99) mg/dL POC Glucose (mg/dL) 59 L 59 L 131 H (75-99) mg/dL Calcium (8.4-10.2) mg/dL Total Protein (6.3-8.2) g/dL Albumin (3.5-5.0) g/dL Urine Protein (Negative) Urine Glucose (UA) (Negative) Urine Mucus (None) /hpf 08/09/16 08/09/16 Range/Units 04:29 05:28 WBC (3.8-10.6) k/uL RBC (4.30-5.90) m/uL Hgb (13.0-17.5) gm/dL Hct (39.0-53.0) % Neutrophils # (1.3-7.7) k/uL Sodium (137-145) mmol/L BUN (9-20) mg/dL Creatinine (0.66-1.25) mg/dL Glucose (74-99) mg/dL POC Glucose (mg/dL) 58 L 107 H (75-99) mg/dL Calcium (8.4-10.2) mg/dL Total Protein (6.3-8.2) g/dL Albumin (3.5-5.0) g/dL Urine Protein (Negative) Urine Glucose (UA) (Negative) Urine Mucus (None) /hpf Microbiology - Last 24 Hours (Table) 08/08/16 15:00 Urine Culture - Preliminary Urine,Catheterized Assessment and Plan Plan: Assessment: #1. End-stage renal disease maintained on peritoneal dialysis. #2. Fever. Questionable viral syndrome. No evidence of peritonitis at this time. Also question of acute cholecystitis status post laparoscopic cholecystectomy on July 31. #3. Anemia of chronic kidney disease. Iron replete. #4. Chronic kidney disease mineral bone disease. #5. Insulin-dependent diabetes mellitus. #6. Metabolic acidosis secondary to chronic kidney disease. #7. Myoclonic jerking. Gabapentin level noted to be elevated. Dose has been appropriately decreased. Plan: Continue peritoneal dialysis exchanges with 750 mL every 4 hours. He again is not draining completely. Maintain Aranesp. Maintain Renvela with meals. Nephrocaps daily. Antibiotics per infectious disease recommendations. Maintain lactulose as needed for constipation. No evidence of peritonitis at this time. Maintain oral sodium bicarbonate supplementation. He is to get a permacath placed today. Will temporarily switch over to hemodialysis.
[2016-08-09 11:51] LABS: Glucose,Whole Blood 51 mg/dL (75-99)
[2016-08-09] MEDS: THIAMINE 100 MG TAB PO SCH (12:08)
[2016-08-09 12:16] LABS: Glucose,Whole Blood 145 mg/dL (75-99)
[2016-08-09] MEDS: ONDANSETRON 4 MG/2 ML VIAL IVP PRN (12:25)
--- NOTE | 2016-08-09 16:20 | P.PN ---
Subjective Principal diagnosis: sepsis 45-year-old male with long-standing history of diabetes mellitus type 2 presents to hospital with a sudden onset of high-grade fever with chills, no delmy rigor with severe body aches. Because he felt so poorly presented to the emergency center. There are temperature 100 and she was noted he was admitted to hospital for concerns to sepsis. His temperature is improved. is still having some nausea and emesis after his cholecystectomy but he does relate he feels considerably better than before the procedure. Is having no difficulties with cloudy fluid. But he had some constipation as well as urinary retention. After these are resolved but expect his dialysis to commence with less difficulties He has not had prior difficulties with peritonitis related to his dialysis. He is now feeling considerably better. Constipation is resolved. Urinary retention is resolved. CAPD fluid has been following more readily without evidence of cloudiness or tenderness. He has nausea and emesis have resolved. Was feeling better. Now having difficulties with his CAPD. It was not draining well. Giving him ongoing difficulties. Continues to feel poorly. Objective - Vital Signs Vital signs: Vital Signs Temp 98.3 F 08/09/16 15:00 Pulse 83 08/09/16 15:00 Resp 16 08/09/16 15:00 BP 138/70 08/09/16 15:00 Pulse Ox 93 L 08/09/16 15:00 Intake & Output 08/08/16 08/09/16 08/09/16 18:59 06:59 18:59 Intake Total 200 Output Total 1250 1900 500 Balance -1050 -1900 -500 Weight 92.5 kg Intake: Oral 200 Output: Urine 1250 1200 500 Straight 700 600 500 Stool 700 Other: # Voids 1 # Bowel Movements 4 - Exam 45-year-old gentleman relates feels poorly after surgery having nausea and emesis. HEENT: Anicteric conjunctiva are pink and moist nasal mucosa grossly intact without significant lesions, there is no thrush. Recent surgical site to the eye is without erythema or tenderness Neck: The neck is supple without significant lymphadenopathy or thyromegaly. Lungs: Good bilateral air entry without significant crackles or wheezing. There is no significant bronchial sounds. There is no egophony or dullness. Heart: Regular rate and rhythm with an audible S1-S2, no S3 no S4. There is no significant murmur click or rub, PMI was nondisplaced. Abdomen: the patient is status post his cholecystectomy , there is evidence of some distention from lack of drainage of his peritoneal fluid for dialysis. Extremities: The upper extremities have excellent pulses they are symmetric, no significant petechiae or telangiectasia. No splinter hemorrhages were noted. The lower extremities are free from significant edema. The peripheral pulses were 2+ and symmetric. Neuro: Awake alert oriented to person place and time. Skin shows evidence of the multiple tattoos but none of them are tender or fresh or infected - Labs CBC & Chem 7: 08/08/16 11:56 08/08/16 11:56 Labs: Abnormal Lab Results - Last 24 Hours (Table) 08/08/16 08/08/16 08/08/16 Range/Units 21:07 21:25 21:55 POC Glucose (mg/dL) 59 L 59 L 131 H (75-99) mg/dL 08/09/16 08/09/16 08/09/16 Range/Units 04:29 05:28 11:50 POC Glucose (mg/dL) 58 L 107 H 51 L (75-99) mg/dL 08/09/16 Range/Units 12:15 POC Glucose (mg/dL) 145 H (75-99) mg/dL Microbiology - Last 24 Hours (Table) 08/08/16 15:00 Urine Culture - Preliminary Urine,Catheterized Laboratory Results WBC 15.0 k/uL (3.8-10.6) H 08/08/16 11:56 RBC 3.00 m/uL (4.30-5.90) L 08/08/16 11:56 Hgb 8.7 gm/dL (13.0-17.5) L 08/08/16 11:56 Hct 27.0 % (39.0-53.0) L 08/08/16 11:56 MCV 90.1 fL (80.0-100.0) 08/08/16 11:56 MCH 29.0 pg (25.0-35.0) 08/08/16 11:56 MCHC 32.2 g/dL (31.0-37.0) 08/08/16 11:56 RDW 13.8 % (11.5-15.5) 08/08/16 11:56 Plt Count 307 k/uL (150-450) 08/08/16 11:56 Neutrophils % 83 % 08/08/16 11:56 Lymphocytes % 8 % 08/08/16 11:56 Monocytes % 5 % 08/08/16 11:56 Eosinophils % 2 % 08/08/16 11:56 Basophils % 0 % 08/08/16 11:56 Neutrophils # 12.4 k/uL (1.3-7.7) H 08/08/16 11:56 Lymphocytes # 1.2 k/uL (1.0-4.8) 08/08/16 11:56 Monocytes # 0.8 k/uL (0-1.0) 08/08/16 11:56 Eosinophils # 0.3 k/uL (0-0.7) 08/08/16 11:56 Basophils # 0.0 k/uL (0-0.2) 08/08/16 11:56 Manual Slide Review Performed 08/01/16 09:17 Hypochromasia Slight 08/06/16 08:59 Poikilocytosis (manual Present 08/01/16 09:17 PT 10.1 sec (9.0-12.0) 07/28/16 23:05 INR 1.0 (<1.1) 07/28/16 23:05 APTT 22.4 sec (22.0-30.0) 07/28/16 23:05 Sodium 135 mmol/L (137-145) L 08/08/16 11:56 Potassium 3.7 mmol/L (3.5-5.1) 08/08/16 11:56 Chloride 98 mmol/L (98-107) 08/08/16 11:56 Carbon Dioxide 22 mmol/L (22-30) 08/08/16 11:56 Anion Gap 15 mmol/L 08/08/16 11:56 BUN 45 mg/dL (9-20) H 08/08/16 11:56 Creatinine 10.34 mg/dL (0.66-1.25) H* 08/08/16 11:56 Est GFR (MDRD) Af Amer 7 (>60 ml/min/1.73 sqM) 08/08/16 11:56 Est GFR (MDRD) Non-Af 5 (>60 ml/min/1.73 sqM) 08/08/16 11:56 Glucose 58 mg/dL (74-99) L 08/08/16 11:56 POC Glucose (mg/dL) 145 mg/dL (75-99) H 08/09/16 12:15 POC Glu Sour Bleaching Pleater Henea Sarmiento 08/09/16 12:[address] Glu mg/dL 303 mg/dL 07/29/16 06:21 Hemoglobin A1c 12.2 % (4.2-6.1) H 07/29/16 06:21 Plasma Lactic Acid Massimo 0.5 mmol/L (0.7-2.0) L 07/29/16 06:21 Calcium 7.1 mg/dL (8.4-10.2) L 08/08/16 11:56 Phosphorus 5.7 mg/dL (2.5-4.5) H 07/29/16 06:21 Magnesium 1.7 mg/dL (1.6-2.3) 07/28/16 23:05 Iron 41 ug/dL (49-181) L 07/29/16 06:21 TIBC 177 ug/dL (261-462) L 07/29/16 06:21 % Saturation 23.2 % (20-50) 07/29/16 06:21 Ferritin 901 ng/mL (18-464) H 07/29/16 06:21 Total Bilirubin 0.4 mg/dL (0.2-1.3) 08/08/16 11:56 AST 21 U/L (17-59) 08/08/16 11:56 ALT 28 U/L (21-72) 08/08/16 11:56 Alkaline Phosphatase 106 U/L (38-126) 08/08/16 11:56 Creatine Kinase 281 U/L (55-170) H 07/30/16 08:21 Troponin I <0.012 ng/mL (0.000-0.034) 07/28/16 23:05 Total Protein 5.2 g/dL (6.3-8.2) L 08/08/16 11:56 Albumin 2.3 g/dL (3.5-5.0) L 08/08/16 11:56 Amylase <30 U/L (30-110) L 07/28/16 23:05 Lipase 28 U/L (23-300) 07/28/16 23:05 Urine Color Light Yellow 08/08/16 15:00 Urine Appearance Clear (Clear) 08/08/16 15:00 Urine pH 7.0 (5.0-8.0) 08/08/16 15:00 Ur Specific Bledsoe 1.005 (1.001-1.035) 08/08/16 15:00 Urine Protein 3+ (Negative) H 08/08/16 15:00 Urine Glucose (UA) 1+ (Negative) H 08/08/16 15:00 Urine Ketones Negative (Negative) 08/08/16 15:00 Urine Blood Negative (Negative) 08/08/16 15:00 Urine Nitrate Negative (Negative) 08/08/16 15:00 Urine Bilirubin Negative (Negative) 08/08/16 15:00 Urine Urobilinogen <2.0 mg/dL (<2.0) 08/08/16 15:00 Ur Leukocyte Esterase Negative (Negative) 08/08/16 15:00 Urine RBC 1 /hpf (0-5) 08/08/16 15:00 Urine WBC 2 /hpf (0-5) 07/29/16 01:00 Urine Bacteria Rare /hpf (None) H 07/29/16 01:00 Urine Mucus Rare /hpf (None) H 08/08/16 15:00 Fluid Source Peritoneal 07/28/16 23:50 Fluid Color Yellow 07/28/16 23:50 Fluid Appearance Clear 07/28/16 23:50 Fluid RBC 0 /uL 07/28/16 23:50 Fluid Nucleated Cells 6 /uL 07/28/16 23:50 Random Vancomycin 29.9 ug/mL 08/04/16 09:01 Gabapentin 36.1 ug/mL (2.0-12.0) H 08/01/16 16:53 Levetiracetam 39.7 ug/mL (3.0-60.0) 08/01/16 08:45 Influenza Type A RNA Not Detected (Not Detectd) 07/28/16 23:14 Influenza Type B (PCR) Not Detected (Not Detectd) 07/28/16 23:14 Miscellaneous Test Albumin, BF 07/28/16 23:50 Misc Test Result See comment 07/28/16 23:50 Microbiology 08/08/16 15:00 Urine,Catheterized Urine Culture - Preliminary 07/28/16 23:05 Blood Blood Culture - Final No Growth after 144 hours 07/28/16 23:50 Peritoneal Fluid Gram Stain - Final 07/28/16 23:50 Peritoneal Fluid Body Fluid Culture - Final 07/29/16 01:00 Urine,Voided Urine Culture - Final Assessment and Plan (1) Fever Narrative/Plan: 45-year-old male presents to the emergency center feeling very poorly. Having high-grade fever up to 102 associated with chills without delmy rigors. Significant myalgias occurred. He also had significant gastroenteritis with some nausea and abdominal pain without much diarrhea. He has not had significant hematemesis melena or hematochezia. The peritoneal fluid is clear and colorless with no stated amounts of white cells. Fortunately does not have evidence of peritoneal catheter-related infection. 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 imaging studies revealed evidence of abnormal gallbladder. He has been seen by surgery and constantly was taken to the operating room where a stone was noted to be obstructing the common bile duct. Other than some nausea and emesis he is feeling better. Vancomycin will be continued until we have further culture data. Zosyn added for now given the infectious process Cultures are in process. Maneuvers to improve his hydration and nausea have been given. Leukocytosis at admission likely due to his acute cholecystitis. His creatinine is gone up to 11.2 indicative some the difficulties of his current peritoneal dialysis. Is being seen by nephrology. At this time the patient is all negative cultures. We'll discontinue vancomycin therapy. Zosyn for the next 24 hours if he is getting ready for discharge to home. Would not the need further antibiotic therapy at discharge. He is having some urinary retention. Tamsulosin was added to help with this issue. With his difficulties with emptying of his CAPD fluid. Was concerned that he was still having urinary retention. Straight cath was requested. 700 cc was evacuated. Still not having good drainage from his peritoneum. Nephrology suggesting short-term hemodialysis to improve his uremia is overall status and hopefully will then get back to CAPD. Urinalysis has been sent for culture also. Status: Acute (2) Gastroenteritis Status: Acute (3) End stage renal disease on dialysis Status: Chronic (4) Poorly controlled type 2 diabetes mellitus with circulatory disorder Status: Acute
[2016-08-09 17:12] LABS: Glucose,Whole Blood 76 mg/dL (75-99)
[2016-08-09] MEDS: TAMSULOSIN 0.4 MG CAP.ER.24H PO SCH (17:19)
--- NOTE | 2016-08-09 17:24 | XR ---
EXAMINATION TYPE: XR chest 1V portable DATE OF EXAM: 08/09/2016 5:12 PM COMPARISON: 07/28/2016 HISTORY: Heart failure and pneumonia TECHNIQUE: Single frontal view of the chest is obtained. FINDINGS: There is some mild pneumonic infiltrate in the right upper lobe. There is slight thickenin g of the minor fissure on the right side. There is no gross heart failure. Heart appears enlarged. Th ere is no pleural effusion. IMPRESSION: There is increasing right upper lobe pneumonia compared to last exam. Mild cardiomegaly. No gross heart failure.
[2016-08-09] MEDS: ATORVASTATIN 80 MG TAB PO SCH (20:49)
[2016-08-09] MEDS: INSULIN GLARGINE 100 UNIT/ML 10 ML VIAL SQ SCH (20:56)
[2016-08-09 21:05] LABS: Glucose,Whole Blood 123 mg/dL (75-99)
[2016-08-10 02:14] LABS: Glucose,Whole Blood 81 mg/dL (75-99)
[2016-08-10 04:05] LABS: Glucose,Whole Blood 81 mg/dL (75-99)
[2016-08-10] MEDS: DIALYSIS DEX INTRAPERIT SCH ×3 (04:11→12:40)
[2016-08-10] MEDS: PIPERACILLIN-TAZOBACTAM 3.375 GM in DEXTROSE/WATER 1 50ML.BAG IVPB SCH ×2 (05:27→17:52)
[2016-08-10] MEDS ORDERED: LIDOCAINE 2% INJ 20 MG/ML SQ ONE ×2 (07:21→07:27)
[2016-08-10] MEDS ORDERED: MIDAZOLAM 2 MG/2 ML VIAL ONE (07:21)
[2016-08-10] MEDS ORDERED: MIDAZOLAM 2 MG/2 ML VIAL IVP ONE (07:25)
[2016-08-10] MEDS: INSULIN LISPRO (humaLOG) 300 UNIT/3 ML VIAL SQ SCH ×4 (07:30→21:28)
--- NOTE | 2016-08-10 07:56 | PN ---
DATE OF SERVICE: 08/09/2016 I am covering for Dr. José Cm. This 45-year-old gentleman was admitted with acute cholecystis and cystic duct obstruction. Patient also had acute on chronic renal failure. The patient is on peritoneal dialysis also. The patient had myoclonic jerks. The patient had Neurontin toxicity also. Because of multiple concerns and lack of full peritoneal dialysis at this time, hemodialysis is considered and Dr. Sy has planned the patient for dialysis access catheter insertion. No chest pain. No palpitation. No fever. PAST MEDICAL HISTORY: Reviewed. REVIEW OF SYSTEMS: Could not be taken, the patient is confused. On exam, the patient is mildly confused. Pulse 83, blood pressure is 130/71, respirations 16, temperature 98.2, pulse ox 96% on room air. HEENT: Conjunctivae normal. NECK: No jugular venous distension. CARDIOVASCULAR: S1, S2, RESPIRATORY: Breath sounds diminished at the bases. Bilateral scattered rhonchi, no crackles. Abdomen is soft, nontender. No mas palpable. EXTREMITIES: Legs no edema, no swelling. NERVOUS SYSTEM: No focal deficits. LABS: WBC is 15 and sodium is 135. Current medications are reviewed and include Tylenol, Cordarone, Lipitor, Aranesp, Depakote, Dilaudid, Cephulac, Keppra, Synthroid, Ativan, Reglan, Zofran, peritoneal dialysis catheter, Zosyn IV, Renvela, Flomax. Vitamin B1. ASSESSMENT: 1. Acute cholecystitis with cystic duct obstruction secondary to choledocholithiasis as well as acute sepsis, present on admission. 2. Status post laparoscopic cholecystectomy. 3. Continued fevers. 4. Change in mental status with metabolic encephalopathy, multifactorial. 5. End-stage renal disease on dialysis with chronic kidney disease stage V. 6. Multiple myoclonic jerks. 7. Possible Neurontin toxicity present on admission. 8. History of deep venous thrombosis. 9. History of coronary artery disease. 10. Diabetes mellitus type 2, uncontrolled. 11. History of gastroesophageal reflux disease. 12. History of diabetic gastroparesis. 13. Hemoglobin A1c 12.2. 14. Hyponatremia. 15. Increased WBC. 16. Anemia of chronic disease. 17. FULL CODE. RECOMMENDATION: In this 45-year-old gentleman who presented with multiple complex medical issues, will monitor the patient closely. Continue with the current medications. Continue with symptomatic treatment. The cultures have been negative so far. I would repeat the cotton cultures and repeat labs also. Closely monitor and Infectious Disease and Nephrology are following the patient closely as well. Further recommendations to follow. Patient is being prepared for hemodialysis and once again, prognosis guarded because of multiple complex medical issues. The patient still has mild chronic chest pain but still in less intensity at this time.
[2016-08-10 08:11] LABS: Glucose,Whole Blood 65 mg/dL (75-99)
[2016-08-10 08:37] LABS: Glucose,Whole Blood 74 mg/dL (75-99)
--- NOTE | 2016-08-10 08:49 | XR ---
EXAMINATION TYPE: XR chest 1V portable DATE OF EXAM: 08/10/2016 8:05 AM COMPARISON: 08/09/2011 HISTORY: Catheter placement TECHNIQUE: Single frontal view of the chest is obtained. FINDINGS: Rounded area of consolidation or mass right upper lobe. Previous fracture left humerus. He art is enlarged. Coarsened interstitium seen. No pleural effusion or pneumothorax. IMPRESSION: 1. Rounded consolidation or mass right upper lobe stable from previous. 2. Cardiomegaly and stable coarsened interstitium may been the basis of venous congestion or intersti tial pneumonitis.
--- NOTE | 2016-08-10 08:55 | IR ---
EXAMINATION TYPE: IR cvc insert central tunneled DATE OF EXAM: 08/10/2016 7:59 AM COMPARISON: NONE HISTORY: Peripheral vascular occlusive disease. Fluoroscopy was applied to the referring clinician. 0.3 minutes provided.
[2016-08-10 10:01] LABS: Calcium 6.9 mg/dL (8.4-10.2); Potassium 3.4 mmol/L (3.5-5.1)
[2016-08-10 10:09] LABS: Basophils % (A) 0 %; CH 29.7; CHCM 32.5; Eosinophils # (A) 0.2 k/uL (0-0.7); Eosinophils % (A) 1 %; HCT 20.8 % (39.0-53.0); HDW 3.21; Hypochromasia Slight; Luc # (Auto) 0.19; Luc % (Auto) 1; Lymphocytes # (A) 0.5 k/uL (1.0-4.8); Lymphocytes % (A) 3 %; MCH 30.1 pg (25.0-35.0); MCHC 32.7 g/dL (31.0-37.0); MCV 91.9 fL (80.0-100.0); Monocytes # (A) 0.9 k/uL (0-1.0); Monocytes % (A) 5 %; Neutrophils # (A) 18.3 k/uL (1.3-7.7); Neutrophils % (A) 91 %; RBC 2.27 m/uL (4.30-5.90); WBC 20.2 k/uL (3.8-10.6); WBC (Perox) 20.71
[2016-08-10] MEDS: SEVELAMER 800 MG TAB PO SCH ×3 (10:32→17:50)
[2016-08-10] MEDS: levETIRAcetam 500 MG TAB PO SCH ×2 (10:32→20:36)
[2016-08-10] MEDS: SODIUM BICARBONATE TAB 650 MG TAB PO SCH ×2 (10:33→20:37)
[2016-08-10] MEDS: DIVALPROEX 250 MG TABLET.DR PO SCH ×3 (10:33→21:46)
[2016-08-10] MEDS: AMIODARONE 200 MG TAB PO SCH ×2 (10:33→20:37)
[2016-08-10] MEDS: LEVOTHYROXINE 25 MCG TAB PO SCH (10:33)
[2016-08-10] MEDS: LACTULOSE 20 GM/30 ML CUP PO SCH ×4 (10:34→21:42)
[2016-08-10] MEDS: FOLIC ACID-VIT B COMPLEX-VIT C 1 CAP PO SCH (10:34)
[2016-08-10] MEDS: HYDROmorphone 1 MG/ML 1 ML SYRINGE IVP PRN ×3 (10:35→17:48)
[2016-08-10 10:37] LABS: HGB 6.8 gm/dL (13.0-17.5)
--- NOTE | 2016-08-10 10:54 | P.PN ---
Subjective Patient is seen in follow-up for end-stage renal disease. He is maintained on peritoneal dialysis. Patient presented with nausea and vomiting. He underwent laparoscopic cholecystectomy on July 31. Denies chest pain or shortness of breath. Continues to have abdominal discomfort but overall improved. Oral intake is starting to improve. He is having trouble with peritoneal dialysis drains again. Underwent a permacath placement on August 09. Admits to soreness at the surgical site. Vital signs are stable. General: The patient appeared well nourished and normally developed. HEENT: Head exam is unremarkable. Neck is without jugular venous distension. LUNGS: Lungs are clear to auscultation and percussion. Breath sounds decreased. HEART: Rate and Rhythm are regular. First and second heart sounds normal. No murmurs, rubs or gallops. ABDOMEN: Abdominal exam reveals normal bowel sounds. Non-tender and non- distended. No evidence of peritonitis. EXTREMITITES: No clubbing, cyanosis, or edema. Amputation noted. Objective - Vital Signs Vital signs: Vital Signs Temp 97.6 F 08/10/16 07:00 Pulse 74 08/10/16 08:00 Resp 16 08/10/16 08:00 BP 131/76 08/10/16 07:00 Pulse Ox 93 L 08/10/16 07:00 Intake & Output 08/09/16 08/10/16 08/10/16 18:59 06:59 18:59 Intake Total 550 50 200 Output Total 900 600 200 Balance -350 -550 0 Weight 92.5 kg Intake: IV 50 Piperacillin-Tazobactam 3 50 .375 gm In Dextrose/Water 1 50ml.bag @ 12.5 mls/hr IVPB Q12H [facility] Rx#: [id number] Intake, IV Titration 500 50 Amount Piperacillin-Tazobactam 3 50 .375 gm In Dextrose/Water 1 50ml.bag @ 12.5 mls/hr IVPB Q12H [facility] Rx#: [id number] Sodium Chloride 0.9% 1, 500 000 ml As IV .STK-MED ONE Rx#:[id number] Oral 200 Output: Urine 500 600 Straight 500 600 Stool 400 200 Other: Voiding Method Urinal Urinal Urinal # Voids 0 # Bowel Movements 6 - Labs CBC & Chem 7: 08/10/16 09:13 08/10/16 09:13 Labs: Abnormal Lab Results - Last 24 Hours (Table) 08/09/16 08/09/16 08/09/16 Range/Units 11:50 12:15 20:53 WBC (3.8-10.6) k/uL RBC (4.30-5.90) m/uL Hgb (13.0-17.5) gm/dL Hct (39.0-53.0) % Neutrophils # (1.3-7.7) k/uL Lymphocytes # (1.0-4.8) k/uL Sodium (137-145) mmol/L Potassium (3.5-5.1) mmol/L Carbon Dioxide (22-30) mmol/L BUN (9-20) mg/dL Creatinine (0.66-1.25) mg/dL Glucose (74-99) mg/dL POC Glucose (mg/dL) 51 L 145 H 123 H (75-99) mg/dL Calcium (8.4-10.2) mg/dL 08/10/16 08/10/16 08/10/16 Range/Units 08:09 08:36 09:13 WBC (3.8-10.6) k/uL RBC (4.30-5.90) m/uL Hgb (13.0-17.5) gm/dL Hct (39.0-53.0) % Neutrophils # (1.3-7.7) k/uL Lymphocytes # (1.0-4.8) k/uL Sodium 131 L (137-145) mmol/L Potassium 3.4 L (3.5-5.1) mmol/L Carbon Dioxide 20 L (22-30) mmol/L BUN 48 H (9-20) mg/dL Creatinine 10.97 H* (0.66-1.25) mg/dL Glucose 72 L (74-99) mg/dL POC Glucose (mg/dL) 65 L 74 L (75-99) mg/dL Calcium 6.9 L (8.4-10.2) mg/dL 08/10/16 Range/Units 09:13 WBC 20.2 H (3.8-10.6) k/uL RBC 2.27 L (4.30-5.90) m/uL Hgb 6.8 L* D (13.0-17.5) gm/dL Hct 20.8 L (39.0-53.0) % Neutrophils # 18.3 H (1.3-7.7) k/uL Lymphocytes # 0.5 L (1.0-4.8) k/uL Sodium (137-145) mmol/L Potassium (3.5-5.1) mmol/L Carbon Dioxide (22-30) mmol/L BUN (9-20) mg/dL Creatinine (0.66-1.25) mg/dL Glucose (74-99) mg/dL POC Glucose (mg/dL) (75-99) mg/dL Calcium (8.4-10.2) mg/dL Microbiology - Last 24 Hours (Table) 08/08/16 15:00 Urine Culture - Final Urine,Catheterized Assessment and Plan Plan: Assessment: #1. End-stage renal disease maintained on peritoneal dialysis. Will be switched over to hemodialysis temporarily. #2. Fever. Questionable viral syndrome. No evidence of peritonitis at this time. Also question of acute cholecystitis status post laparoscopic cholecystectomy on July 31. #3. Anemia of chronic kidney disease. Iron replete. Hemoglobin down to 6.8 today. #4. Chronic kidney disease mineral bone disease. #5. Insulin-dependent diabetes mellitus. #6. Metabolic acidosis secondary to chronic kidney disease. #7. Myoclonic jerking. Gabapentin level noted to be elevated. Dose has been appropriately decreased. #8. Hypokalemia. Plan: Hemodialysis today. 1 unit of packed red blood cell transfusion with dialysis today. Maintain Aranesp. Maintain Renvela with meals. Nephrocaps daily. Antibiotics per infectious disease recommendations. Maintain lactulose as needed for constipation. No evidence of peritonitis at this time. Maintain oral sodium bicarbonate supplementation. Replace potassium. 40 mEq today.
[2016-08-10] MEDS ORDERED: POTASSIUM CHLORIDE ER 20 MEQ TAB.ER PO STA (10:56)
[2016-08-10 13:23] LABS: Hepatitis B Surface Ag Index 0.04
[2016-08-10 13:28] LABS: Hepatitis B Core IgM Index 0.03
[2016-08-10 13:47] LABS: Hepatitis B Surface Antibody POSITIVE (Negative)
[2016-08-10] MEDS: THIAMINE 100 MG TAB PO SCH (14:28)
[2016-08-10] MEDS ORDERED: HEPARIN SODIUM,PORCINE 5,000 UNIT/ML 1 ML VIAL ONE (14:30)
[2016-08-10 14:42] LABS: Glucose,Whole Blood 73 mg/dL (75-99)
--- NOTE | 2016-08-10 16:19 | PCN ---
DATE OF PROCEDURE: 08/10/2016 PROCEDURE: Ultrasound-guided ( ) jugular approach. This patient has a history of acute and chronic renal failure. Patient is on peritoneal dialysis. Patient recently had a cholecystectomy. They cannot use the peritoneal dialysis. I was called in for placement of dialysis catheter. Patient was brought to the chemistry lab instructor. Right side of the neck and chest was prepped and draped in a sterile manner. Lidocaine 1% was infiltrated. Ultrasound guidance was used to introduce catheter into the right internal jugular vein. After that micropuncture guidewire was passed. A 4 Welsh dilator was advanced on top of the guidewire. After that, tunnel was created. Through the tunnel we brought ( ) dialysis catheter. Sheath was advanced on top of the guidewire. Through the sheath we introduced the dialysis catheter. Tip of the catheter ( ) flushed with heparin saline and Hep-locked. Incision was closed with Vicryl and nylon, dressing applied. Patient tolerated the procedure well.
[2016-08-10 17:20] LABS: Glucose,Whole Blood 70 mg/dL (75-99)
[2016-08-10] MEDS: TAMSULOSIN 0.4 MG CAP.ER.24H PO SCH (17:50)
--- NOTE | 2016-08-10 19:26 | P.PN ---
Subjective Principal diagnosis: sepsis 45-year-old male with long-standing history of diabetes mellitus type 2 presents to hospital with a sudden onset of high-grade fever with chills, no delmy rigor with severe body aches. Because he felt so poorly presented to the emergency center. There are temperature 100 and she was noted he was admitted to hospital for concerns to sepsis. His temperature is improved. is still having some nausea and emesis after his cholecystectomy but he does relate he feels considerably better than before the procedure. Is having no difficulties with cloudy fluid. But he had some constipation as well as urinary retention. After these are resolved but expect his dialysis to commence with less difficulties He has not had prior difficulties with peritonitis related to his dialysis. He is now feeling considerably better. Constipation is resolved. Urinary retention is resolved. CAPD fluid has been following more readily without evidence of cloudiness or tenderness. He has nausea and emesis have resolved. Was feeling better. Now having difficulties with his CAPD. It was not draining well. Giving him ongoing difficulties. Continues to feel poorly. Objective - Vital Signs Vital signs: Vital Signs Temp 97.0 F L 08/10/16 15:00 Pulse 74 08/10/16 16:00 Resp 12 08/10/16 16:00 BP 146/70 08/10/16 15:00 Pulse Ox 97 08/10/16 15:00 Intake & Output 08/10/16 08/10/16 08/11/16 06:59 18:59 06:59 Intake Total 50 560 Output Total 600 400 Balance -550 160 Weight 92.5 kg Intake: IV 50 Piperacillin-Tazobactam 3 50 .375 gm In Dextrose/Water 1 50ml.bag @ 12.5 mls/hr IVPB Q12H TRAE Rx#: [id number] Intake, IV Titration 50 Amount Piperacillin-Tazobactam 3 50 .375 gm In Dextrose/Water 1 50ml.bag @ 12.5 mls/hr IVPB Q12H TRAE Rx#: [id number] Oral 200 Blood Product 310 Rc As-1 Unit 0 [id number] Output: Urine 600 Straight 600 Stool 400 Other: Voiding Method Urinal Urinal # Voids 0 # Bowel Movements 6 1 - Exam 45-year-old gentleman relates feels poorly after surgery having nausea and emesis. HEENT: Anicteric conjunctiva are pink and moist nasal mucosa grossly intact without significant lesions, there is no thrush. Recent surgical site to the eye is without erythema or tenderness Neck: The neck is supple without significant lymphadenopathy or thyromegaly. Lungs: Good bilateral air entry without significant crackles or wheezing. There is no significant bronchial sounds. There is no egophony or dullness. Heart: Regular rate and rhythm with an audible S1-S2, no S3 no S4. There is no significant murmur click or rub, PMI was nondisplaced. Abdomen: the patient is status post his cholecystectomy , there is evidence of some distention from lack of drainage of his peritoneal fluid for dialysis. Extremities: The upper extremities have excellent pulses they are symmetric, no significant petechiae or telangiectasia. No splinter hemorrhages were noted. The lower extremities are free from significant edema. The peripheral pulses were 2+ and symmetric. Neuro: Awake alert oriented to person place and time. Skin shows evidence of the multiple tattoos but none of them are tender or fresh or infected - Labs CBC & Chem 7: 08/10/16 09:13 08/10/16 09:13 Labs: Abnormal Lab Results - Last 24 Hours (Table) 08/09/16 08/10/16 08/10/16 Range/Units 20:53 08:09 08:36 WBC (3.8-10.6) k/uL RBC (4.30-5.90) m/uL Hgb (13.0-17.5) gm/dL Hct (39.0-53.0) % Neutrophils # (1.3-7.7) k/uL Lymphocytes # (1.0-4.8) k/uL Sodium (137-145) mmol/L Potassium (3.5-5.1) mmol/L Carbon Dioxide (22-30) mmol/L BUN (9-20) mg/dL Creatinine (0.66-1.25) mg/dL Glucose (74-99) mg/dL POC Glucose (mg/dL) 123 H 65 L 74 L (75-99) mg/dL Calcium (8.4-10.2) mg/dL Crossmatch 08/10/16 08/10/16 08/10/16 Range/Units 09:13 09:13 11:10 WBC 20.2 H (3.8-10.6) k/uL RBC 2.27 L (4.30-5.90) m/uL Hgb 6.8 L* D (13.0-17.5) gm/dL Hct 20.8 L (39.0-53.0) % Neutrophils # 18.3 H (1.3-7.7) k/uL Lymphocytes # 0.5 L (1.0-4.8) k/uL Sodium 131 L (137-145) mmol/L Potassium 3.4 L (3.5-5.1) mmol/L Carbon Dioxide 20 L (22-30) mmol/L BUN 48 H (9-20) mg/dL Creatinine 10.97 H* (0.66-1.25) mg/dL Glucose 72 L (74-99) mg/dL POC Glucose (mg/dL) (75-99) mg/dL Calcium 6.9 L (8.4-10.2) mg/dL Crossmatch See Detail 08/10/16 08/10/16 Range/Units 14:29 17:19 WBC (3.8-10.6) k/uL RBC (4.30-5.90) m/uL Hgb (13.0-17.5) gm/dL Hct (39.0-53.0) % Neutrophils # (1.3-7.7) k/uL Lymphocytes # (1.0-4.8) k/uL Sodium (137-145) mmol/L Potassium (3.5-5.1) mmol/L Carbon Dioxide (22-30) mmol/L BUN (9-20) mg/dL Creatinine (0.66-1.25) mg/dL Glucose (74-99) mg/dL POC Glucose (mg/dL) 73 L 70 L (75-99) mg/dL Calcium (8.4-10.2) mg/dL Crossmatch Microbiology - Last 24 Hours (Table) 08/08/16 15:00 Urine Culture - Final Urine,Catheterized Laboratory Results WBC 20.2 k/uL (3.8-10.6) H 08/10/16 09:13 RBC 2.27 m/uL (4.30-5.90) L 08/10/16 09:13 Hgb 6.8 gm/dL (13.0-17.5) L* D 08/10/16 09:13 Hct 20.8 % (39.0-53.0) L 08/10/16 09:13 MCV 91.9 fL (80.0-100.0) 08/10/16 09:13 MCH 30.1 pg (25.0-35.0) 08/10/16 09:13 MCHC 32.7 g/dL (31.0-37.0) 08/10/16 09:13 RDW 14.0 % (11.5-15.5) 08/10/16 09:13 Plt Count 246 k/uL (150-450) 08/10/16 09:13 Neutrophils % 91 % 08/10/16 09:13 Lymphocytes % 3 % 08/10/16 09:13 Monocytes % 5 % 08/10/16 09:13 Eosinophils % 1 % 08/10/16 09:13 Basophils % 0 % 08/10/16 09:13 Neutrophils # 18.3 k/uL (1.3-7.7) H 08/10/16 09:13 Lymphocytes # 0.5 k/uL (1.0-4.8) L 08/10/16 09:13 Monocytes # 0.9 k/uL (0-1.0) 08/10/16 09:13 Eosinophils # 0.2 k/uL (0-0.7) 08/10/16 09:13 Basophils # 0.0 k/uL (0-0.2) 08/10/16 09:13 Manual Slide Review Performed 08/01/16 09:17 Hypochromasia Slight 08/10/16 09:13 Poikilocytosis (manual Present 08/01/16 09:17 PT 10.1 sec (9.0-12.0) 07/28/16 23:05 INR 1.0 (<1.1) 07/28/16 23:05 APTT 22.4 sec (22.0-30.0) 07/28/16 23:05 Sodium 131 mmol/L (137-145) L 08/10/16 09:13 Potassium 3.4 mmol/L (3.5-5.1) L 08/10/16 09:13 Chloride 99 mmol/L (98-107) 08/10/16 09:13 Carbon Dioxide 20 mmol/L (22-30) L 08/10/16 09:13 Anion Gap 12 mmol/L 08/10/16 09:13 BUN 48 mg/dL (9-20) H 08/10/16 09:13 Creatinine 10.97 mg/dL (0.66-1.25) H* 08/10/16 09:13 Est GFR (MDRD) Af Amer 6 (>60 ml/min/1.73 sqM) 08/10/16 09:13 Est GFR (MDRD) Non-Af 5 (>60 ml/min/1.73 sqM) 08/10/16 09:13 Glucose 72 mg/dL (74-99) L 08/10/16 09:13 POC Glucose (mg/dL) 70 mg/dL (75-99) L 08/10/16 17:19 POC Glu Mission Manager Roseline Ace 08/10/16 17:[address] Glu mg/dL 303 mg/dL 07/29/16 06:21 Hemoglobin A1c 12.2 % (4.2-6.1) H 07/29/16 06:21 Plasma Lactic Acid Massimo 0.5 mmol/L (0.7-2.0) L 07/29/16 06:21 Calcium 6.9 mg/dL (8.4-10.2) L 08/10/16 09:13 Phosphorus 5.7 mg/dL (2.5-4.5) H 07/29/16 06:21 Magnesium 1.7 mg/dL (1.6-2.3) 07/28/16 23:05 Iron 41 ug/dL (49-181) L 07/29/16 06:21 TIBC 177 ug/dL (261-462) L 07/29/16 06:21 % Saturation 23.2 % (20-50) 07/29/16 06:21 Ferritin 901 ng/mL (18-464) H 07/29/16 06:21 Total Bilirubin 0.4 mg/dL (0.2-1.3) 08/08/16 11:56 AST 21 U/L (17-59) 08/08/16 11:56 ALT 28 U/L (21-72) 08/08/16 11:56 Alkaline Phosphatase 106 U/L (38-126) 08/08/16 11:56 Creatine Kinase 281 U/L (55-170) H 07/30/16 08:21 Troponin I <0.012 ng/mL (0.000-0.034) 07/28/16 23:05 Total Protein 5.2 g/dL (6.3-8.2) L 08/08/16 11:56 Albumin 2.3 g/dL (3.5-5.0) L 08/08/16 11:56 Amylase <30 U/L (30-110) L 07/28/16 23:05 Lipase 28 U/L (23-300) 07/28/16 23:05 Urine Color Light Yellow 08/08/16 15:00 Urine Appearance Clear (Clear) 08/08/16 15:00 Urine pH 7.0 (5.0-8.0) 08/08/16 15:00 Ur Specific [place] 1.005 (1.001-1.035) 08/08/16 15:00 Urine Protein 3+ (Negative) H 08/08/16 15:00 Urine Glucose (UA) 1+ (Negative) H 08/08/16 15:00 Urine Ketones Negative (Negative) 08/08/16 15:00 Urine Blood Negative (Negative) 08/08/16 15:00 Urine Nitrate Negative (Negative) 08/08/16 15:00 Urine Bilirubin Negative (Negative) 08/08/16 15:00 Urine Urobilinogen <2.0 mg/dL (<2.0) 08/08/16 15:00 Ur Leukocyte Esterase Negative (Negative) 08/08/16 15:00 Urine RBC 1 /hpf (0-5) 08/08/16 15:00 Urine WBC 2 /hpf (0-5) 07/29/16 01:00 Urine Bacteria Rare /hpf (None) H 07/29/16 01:00 Urine Mucus Rare /hpf (None) H 08/08/16 15:00 Fluid Source Peritoneal 07/28/16 23:50 Fluid Color Yellow 07/28/16 23:50 Fluid Appearance Clear 07/28/16 23:50 Fluid RBC 0 /uL 07/28/16 23:50 Fluid Nucleated Cells 6 /uL 07/28/16 23:50 Random Vancomycin 29.9 ug/mL 08/04/16 09:01 Gabapentin 36.1 ug/mL (2.0-12.0) H 08/01/16 16:53 Levetiracetam 39.7 ug/mL (3.0-60.0) 08/01/16 08:45 Hep Bs Antigen Negative 08/10/16 09:13 Hep Bs Antibody POSITIVE (Negative) 08/10/16 09:13 Hep B Core IgM Ab NEGATIVE 08/10/16 09:13 Influenza Type A RNA Not Detected (Not Detectd) 07/28/16 23:14 Influenza Type B (PCR) Not Detected (Not Detectd) 07/28/16 23:14 Miscellaneous Test Albumin, BF 07/28/16 23:50 Misc Test Result See comment 07/28/16 23:50 Blood Type A Positive 08/10/16 11:10 Blood Type Recheck No 08/10/16 11:10 Antibody Screen NEGATIVE 08/10/16 11:10 Crossmatch See Detail 08/10/16 11:10 Spec Expiration Date 08/13/2016 - 2310 08/10/16 11:10 Microbiology 08/08/16 15:00 Urine,Catheterized Urine Culture - Final 07/28/16 23:05 Blood Blood Culture - Final No Growth after 144 hours 07/28/16 23:50 Peritoneal Fluid Gram Stain - Final 07/28/16 23:50 Peritoneal Fluid Body Fluid Culture - Final 07/29/16 01:00 Urine,Voided Urine Culture - Final Assessment and Plan (1) Fever Narrative/Plan: 45-year-old male presents to the emergency center feeling very poorly. Having high-grade fever up to 102 associated with chills without delmy rigors. Significant myalgias occurred. He also had significant gastroenteritis with some nausea and abdominal pain without much diarrhea. He has not had significant hematemesis melena or hematochezia. The peritoneal fluid is clear and colorless with no stated amounts of white cells. Fortunately does not have evidence of peritoneal catheter-related infection. 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 imaging studies revealed evidence of abnormal gallbladder. He has been seen by surgery and constantly was taken to the operating room where a stone was noted to be obstructing the common bile duct. Other than some nausea and emesis he is feeling better. Vancomycin was continued . Zosyn added for now given the infectious process Cultures are in process. Maneuvers to improve his hydration and nausea have been given. Leukocytosis at admission likely due to his acute cholecystitis. His creatinine is gone up to 11.2 indicative some the difficulties of his current peritoneal dialysis. Is being seen by nephrology. At this time the patient is all negative cultures. We'll discontinue vancomycin therapy. Zosyn will be discontinued. Would not the need further antibiotic therapy at discharge. He is having some urinary retention. Tamsulosin was added to help with this issue. With his difficulties with emptying of his CAPD fluid. Was concerned that he was still having urinary retention. Is no straight cathing twice per day Nephrology suggesting short-term hemodialysis to improve his uremia is overall status and hopefully will then get back to CAPD. Urinalysis has been sent for culture and is negative. Status: Acute (2) Gastroenteritis Status: Acute (3) End stage renal disease on dialysis Status: Chronic (4) Poorly controlled type 2 diabetes mellitus with circulatory disorder Status: Acute
--- NOTE | 2016-08-10 19:55 | PN ---
DATE OF SERVICE: 08/10/2016 This 45-year-old gentleman who was admitted with acute cholecystitis and cystic duct obstruction as well as possible sepsis also had renal failure. The patient was undergoing peritoneal dialysis, and hemodialysis has been initiated today. No chest pain. No palpitation. No fever. On exam, alert and oriented x2. Pulse 73, blood pressure 186/100, respiration 12, temperature 97.4, pulse ox 91% on 3 L. HEENT: Conjunctivae normal. NECK: No jugular venous distention. CARDIOVASCULAR SYSTEM: S1, S2 muffled. RESPIRATORY SYSTEM: Breath sounds diminished at the bases. A few scattered rhonchi and crackles. ABDOMEN: Soft, non-tender. No mass palpable. LEGS: No edema. No swelling. NERVOUS SYSTEM: No focal deficit. LABS: WBC 20.2. Hemoglobin is 6.8. ASSESSMENT: 1. Acute cholecystitis with cystic duct obstruction secondary to choledocholithiasis as well as acute sepsis, present on admission. 2. Status post laparoscopic cholecystectomy. 3. Continued fever. 4. Change in mental status with metabolic encephalopathy, multifactorial. 5. Increased white count. 6. Anemia, multifactorial. 7. End-stage renal disease, on dialysis with chronic kidney disease, stage V. 8. Multiple myoclonic jerks. 9. Possible Neurontin toxicity, present on admission, improving. 10. History of deep venous thrombosis. 11. History of coronary artery disease. 12. Diabetes mellitus, type 2, uncontrolled. 13. History of gastroesophageal reflux disease. 14. History of gastroparesis, diabetic. 15. Hemoglobin A1c 12.2. 16. Hyponatremia. 17. Increased white count. 18. Anemia of chronic disease. 19. FULL CODE. RECOMMENDATIONS AND DISCUSSION: I recommend to continue with the current medications, continue with the monitoring, symptomatic treatment. Otherwise, continue the hemodialysis. Patient has received 1 unit of transfusion. Otherwise, repeat labs in the morning. Dr. Cm will follow. Prognosis guarded. MTDD
[2016-08-10] MEDS: ATORVASTATIN 80 MG TAB PO SCH (20:37)
[2016-08-10 21:19] LABS: Glucose,Whole Blood 62 mg/dL (75-99)
[2016-08-10] MEDS: INSULIN GLARGINE 100 UNIT/ML 10 ML VIAL SQ SCH (21:27)
[2016-08-10 21:41] LABS: Glucose,Whole Blood 72 mg/dL (75-99)
[2016-08-10 22:05] LABS: Glucose,Whole Blood 78 mg/dL (75-99)
[2016-08-10 22:36] LABS: Glucose,Whole Blood 82 mg/dL (75-99)
[2016-08-11 02:02] LABS: Glucose,Whole Blood 132 mg/dL (75-99)
[2016-08-11] MEDS: HYDROmorphone 1 MG/ML 1 ML SYRINGE IVP PRN ×5 (02:18→20:45)
[2016-08-11 07:18] LABS: Glucose,Whole Blood 129 mg/dL (75-99)
[2016-08-11] MEDS: INSULIN LISPRO (humaLOG) 300 UNIT/3 ML VIAL SQ SCH ×4 (07:27→22:11)
[2016-08-11] MEDS: LACTULOSE 20 GM/30 ML CUP PO SCH ×4 (07:52→20:52)
[2016-08-11] MEDS: SODIUM BICARBONATE TAB 650 MG TAB PO SCH ×2 (07:52→22:29)
[2016-08-11] MEDS: SEVELAMER 800 MG TAB PO SCH ×3 (07:52→17:53)
[2016-08-11] MEDS: FOLIC ACID-VIT B COMPLEX-VIT C 1 CAP PO SCH (07:53)
[2016-08-11] MEDS: levETIRAcetam 500 MG TAB PO SCH ×2 (07:53→22:30)
[2016-08-11] MEDS: DIVALPROEX 250 MG TABLET.DR PO SCH ×3 (07:53→22:29)
[2016-08-11] MEDS: AMIODARONE 200 MG TAB PO SCH ×2 (07:53→22:31)
[2016-08-11] MEDS: LEVOTHYROXINE 25 MCG TAB PO SCH (07:53)
[2016-08-11 10:19] LABS: Calcium 7.1 mg/dL (8.4-10.2)
--- NOTE | 2016-08-11 10:45 | P.PN ---
Subjective Patient is seen in follow-up for end-stage renal disease. He was maintained on peritoneal dialysis and is now transitioned over to temporary hemodialysis. Patient presented with nausea and vomiting. He underwent laparoscopic cholecystectomy on July 31. Denies chest pain or shortness of breath. Continues to have abdominal discomfort but overall improved. Oral intake is starting to improve. He was having trouble with peritoneal dialysis drains and was switched over to temporary hemodialysis. Underwent a permacath placement on August 09 and underwent hemodialysis yesterday. Admits to soreness at the surgical site. Vital signs are stable. General: The patient appeared well nourished and normally developed. HEENT: Head exam is unremarkable. Neck is without jugular venous distension. LUNGS: Lungs are clear to auscultation and percussion. Breath sounds decreased. HEART: Rate and Rhythm are regular. First and second heart sounds normal. No murmurs, rubs or gallops. ABDOMEN: Abdominal exam reveals normal bowel sounds. Non-tender and non- distended. No evidence of peritonitis. EXTREMITITES: No clubbing, cyanosis, or edema. Amputation noted. Objective - Vital Signs Vital signs: Vital Signs Temp 100.0 F H 08/11/16 07:00 Pulse 83 08/11/16 07:00 Resp 16 08/11/16 07:00 BP 117/64 08/11/16 07:00 Pulse Ox 94 L 08/11/16 07:00 Intake & Output 08/10/16 08/11/16 08/11/16 18:59 06:59 18:59 Intake Total 870 270 Output Total 400 775 Balance 470 -505 Weight 90 kg Intake: IV 50 270 0.9 @ 20 ml/hr 220 Piperacillin-Tazobactam 3 50 50 .375 gm In Dextrose/Water 1 50ml.bag @ 12.5 mls/hr IVPB Q12H TRAE Rx#: [id number] Oral 200 Blood Product 620 Rc As-1 Unit 310 [id number] Output: Urine 775 Straight 700 Stool 400 Other: Voiding Method Urinal Urinal # Voids 1 # Bowel Movements 1 - Labs CBC & Chem 7: 08/10/16 09:13 08/11/16 09:17 Labs: Abnormal Lab Results - Last 24 Hours (Table) 08/10/16 08/10/16 08/10/16 Range/Units 11:10 14:29 17:19 Sodium (137-145) mmol/L BUN (9-20) mg/dL Creatinine (0.66-1.25) mg/dL Glucose (74-99) mg/dL POC Glucose (mg/dL) 73 L 70 L (75-99) mg/dL Calcium (8.4-10.2) mg/dL Crossmatch See Detail 08/10/16 08/10/16 08/11/16 Range/Units 21:17 21:37 02:01 Sodium (137-145) mmol/L BUN (9-20) mg/dL Creatinine (0.66-1.25) mg/dL Glucose (74-99) mg/dL POC Glucose (mg/dL) 62 L 72 L 132 H (75-99) mg/dL Calcium (8.4-10.2) mg/dL Crossmatch 08/11/16 08/11/16 Range/Units 07:17 09:17 Sodium 136 L (137-145) mmol/L BUN 30 H (9-20) mg/dL Creatinine 7.57 H* (0.66-1.25) mg/dL Glucose 111 H (74-99) mg/dL POC Glucose (mg/dL) 129 H (75-99) mg/dL Calcium 7.1 L (8.4-10.2) mg/dL Crossmatch Microbiology - Last 24 Hours (Table) 08/09/16 17:15 Blood Culture - Preliminary Blood No Growth after 24 hours Assessment and Plan Plan: Assessment: #1. End-stage renal disease maintained on peritoneal dialysis now transitioned over to temporary hemodialysis. Last hemodialysis treatment was August 10. #2. Fever. Questionable viral syndrome. No evidence of peritonitis at this time. Also question of acute cholecystitis status post laparoscopic cholecystectomy on July 31. #3. Anemia of chronic kidney disease. Iron replete. Hemoglobin down to 6.8 as of yesterday status post 1 unit packed red blood cell transfusion. #4. Chronic kidney disease mineral bone disease. #5. Insulin-dependent diabetes mellitus. #6. Metabolic acidosis secondary to chronic kidney disease. #7. Myoclonic jerking. Gabapentin level noted to be elevated. Dose has been appropriately decreased. #8. Hypokalemia. Resolved. #9. Urinary retention. Postvoid residuals continue to show urinary retention. He's undergone multiple straight catheterizations. Plan: Hemodialysis tomorrow with goal 2 liters ultrafiltration. He will be maintained on a Wednesday schedule. Maintain Aranesp. Maintain Renvela with meals. Nephrocaps daily. Antibiotics per infectious disease recommendations. Maintain lactulose as needed for constipation. No evidence of peritonitis at this time. Maintain oral sodium bicarbonate supplementation. Await urology recommendations regarding urinary retention. Continue Flomax.
--- NOTE | 2016-08-11 11:33 | P.PN ---
Subjective Patient resting in bed noted cough. X-ray shows a possible pneumonitis and pulmonary consolidation. Patient note to have fever asked the nurse to be consult Dr. Sy regarding the fever. Patient had successful hemodialysis with the reduction a creatinine to 7.57 Objective - Vital Signs Vital signs: Vital Signs Temp 100.0 F H 08/11/16 07:00 Pulse 83 08/11/16 07:00 Resp 16 08/11/16 07:00 BP 117/64 08/11/16 07:00 Pulse Ox 94 L 08/11/16 07:00 Intake & Output 08/10/16 08/11/16 08/11/16 18:59 06:59 18:59 Intake Total 870 270 Output Total 400 775 Balance 470 -505 Weight 90 kg Intake: IV 50 270 0.9 @ 20 ml/hr 220 Piperacillin-Tazobactam 3 50 50 .375 gm In Dextrose/Water 1 50ml.bag @ 12.5 mls/hr IVPB Q12H TRAE Rx#: [id number] Oral 200 Blood Product 620 Rc As-1 Unit 310 [id number] Output: Urine 775 Straight 700 Stool 400 Other: Voiding Method Urinal Urinal # Voids 1 # Bowel Movements 1 - Constitutional General appearance: Present: obese - EENT Eyes: Present: PERRLA Ears: bilateral: normal - Neck Details: Hemodialysis catheter to right side of neck Neck: Present: normal ROM - Respiratory Details: Noted congestive cough Respiratory: bilateral: CTA - Cardiovascular Rhythm: regular - Gastrointestinal General gastrointestinal: Present: soft - Integumentary Integumentary: Present: pale - Neurologic Neurologic: Present: CNII-XII intact - Musculoskeletal Musculoskeletal: Present: generalized weakness - Psychiatric Psychiatric Comment(s): Patient has flat depressed affect Psychiatric: Present: A&O x's 3, intact judgment & insight - Labs CBC & Chem 7: 08/10/16 09:13 08/11/16 09:17 Labs: Abnormal Lab Results - Last 24 Hours (Table) 08/10/16 08/10/16 08/10/16 Range/Units 11:10 14:29 17:19 Sodium (137-145) mmol/L BUN (9-20) mg/dL Creatinine (0.66-1.25) mg/dL Glucose (74-99) mg/dL POC Glucose (mg/dL) 73 L 70 L (75-99) mg/dL Calcium (8.4-10.2) mg/dL Crossmatch See Detail 08/10/16 08/10/16 08/11/16 Range/Units 21:17 21:37 02:01 Sodium (137-145) mmol/L BUN (9-20) mg/dL Creatinine (0.66-1.25) mg/dL Glucose (74-99) mg/dL POC Glucose (mg/dL) 62 L 72 L 132 H (75-99) mg/dL Calcium (8.4-10.2) mg/dL Crossmatch 08/11/16 08/11/16 Range/Units 07:17 09:17 Sodium 136 L (137-145) mmol/L BUN 30 H (9-20) mg/dL Creatinine 7.57 H* (0.66-1.25) mg/dL Glucose 111 H (74-99) mg/dL POC Glucose (mg/dL) 129 H (75-99) mg/dL Calcium 7.1 L (8.4-10.2) mg/dL Crossmatch Microbiology - Last 24 Hours (Table) 08/09/16 17:15 Blood Culture - Preliminary Blood No Growth after 24 hours - Imaging and Cardiology Chest x-ray: report reviewed Assessment and Plan Plan: Assessment Acute cholecystitis post cholecystectomy with acute sepsis End-stage renal disease on peritonal dialysis on admission catheter inserted for hemodialysis stage V GRF of 5 Fever with cough Multiple myoclonic jerks Change in mental status metabolic encephalopathy acute on chronic History of a deep venous thrombosis History of coronary disease Diabetes type 2 uncontrolled A1c of 12.2 hyperglycemia History of GERD History of diabetic gastroparesis Anemia of chronic disease Urinary retention Plan Consultation with Dr. Sy regarding fever and cough Consultation with urology considering urinary retention
[2016-08-11 11:39] VITALS: BMI 27.6
[2016-08-11 11:46] LABS: Basophils % (A) 0 %; CH 30.5; CHCM 33.2; Eosinophils # (A) 0.2 k/uL (0-0.7); Eosinophils % (A) 1 %; HCT 24.4 % (39.0-53.0); HDW 3.27; HGB 7.9 gm/dL (13.0-17.5); Luc # (Auto) 0.27; Luc % (Auto) 1; Lymphocytes # (A) 0.8 k/uL (1.0-4.8); Lymphocytes % (A) 4 %; MCHC 32.5 g/dL (31.0-37.0); MCV 92.3 fL (80.0-100.0); Monocytes # (A) 1.3 k/uL (0-1.0); Monocytes % (A) 7 %; Neutrophils # (A) 16.4 k/uL (1.3-7.7); Neutrophils % (A) 87 %; RBC 2.64 m/uL (4.30-5.90); RDW 14.4 % (11.5-15.5); WBC 18.9 k/uL (3.8-10.6); WBC (Perox) 19.04
[2016-08-11 12:15] LABS: Glucose,Whole Blood 122 mg/dL (75-99)
[2016-08-11] MEDS: THIAMINE 100 MG TAB PO SCH (13:36)
--- NOTE | 2016-08-11 16:49 | P.GSCN ---
History of Present Illness Consult date: 08/11/16 Reason for Consult: Urinary retention Requesting physician: Yung Mann History of present illness: Patient is a 45-year-old white male with end-stage renal disease. He underwent a laparoscopic cholecystectomy on 07/31/2016. He has previously been treated with peritoneal dialysis, but is currently undergoing hemodialysis. He does produce some urine. He has been unable to void. He has been catheterized approximately once daily, with returns of 300-700 mL. He is a vague historian. Review of Systems - Genitourinary Reports as per HPI Past Medical History Past Medical History: Coronary Artery Disease (CAD), Diabetes Mellitus, Dialysis , Deep Vein Thrombosis (DVT), GERD/Reflux, Hyperlipidemia, Hypertension, Myocardial Infarction (OK), Musculoskeletal Disorder, Renal Disease, Seizure Disorder Additional Past Medical History / Comment(s): Diabetic gastropathy, End stage renal disease currently on peritoneal dialysis , peripheral neuropathy, seizure disorder, compression fracture of the vertebral along with known history of this disease, blood clot from IV line in the upper extremity on the left, coronary artery disease, previous myocardial infarction, insulin- dependent diabetes mellitus, GE reflux, gastritis, chronic anemia, cataracts, currently on peritoneal dialysis, peripheral vascular disease with previous amputation involving a below-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 Last Myocardial Infarction Date:: 2012 History of Any Multi-Drug Resistant Organisms: MRSA Year Discovered:: 04/08/15 MDRO Source:: Blood & Left Foot Past Surgical History: Orthopedic Surgery Additional Past Surgical History / Comment(s): amputation right toes, BKA right leg 2013, GEORGE CATARACTS,VITRECTOMY,GEORGE RETINAL SX Past Anesthesia/Blood Transfusion Reactions: No Reported Reaction Additional Past Anesthesia/Blood Transfusion Reaction / Comm: VERTIGO Past Psychological History: No Psychological Hx Reported Additional Psychological History / Comment(s): Single. Tobacco smoker. Denies significant alcohol or recreational drug use. Originally was from the [place] area and then moved down to [place]. Is now moved back to be with his family members in [place] since 2014. He has no experience. He denies any significant travel history. Brother has a pet dog in the home in which he lives. Relates that his 13-year-old daughter 2 years ago from suicide at the age of 13 Smoking Status: Never smoker Past Alcohol Use History: None Reported Past Drug Use History: None Reported - Past Family History Father Family Medical History: Cancer Additional Family Medical History / Comment(s): CANCER FROM [employer] Mother History Unknown: Yes Family Medical History: Cancer, Supraventricular Tachycardia (SVT) Additional Family Medical History / Comment(s): LUNG CANCER(SMOKER) Medications and Allergies Home Medications Medication Instructions Recorded Confirmed Type Atorvastatin [Lipitor] 80 mg PO HS 04/08/15 07/31/16 History Calcium Acetate [PhosLo] 1,334 mg PO TID-W/MEALS 04/08/15 07/31/16 History Fluticasone Propionate [Flonase 2 spray EA NOSTRIL DAILY PRN 04/08/15 07/31/16 History Allergy Relief] Folic Acid 1 mg PO DAILY 04/08/15 07/31/16 History Folic Acid-Vit B Complex-Vit C 1 cap PO HS 04/08/15 07/31/16 History [Nephrocaps] Gabapentin [Neurontin] 300 mg PO TID 04/08/15 07/31/16 History Insulin Glargine [Lantus] 10 unit SQ HS 04/08/15 07/31/16 History Levothyroxine Sodium [Synthroid] 25 mcg PO DAILY 04/08/15 07/31/16 History Insulin Aspart [NovoLOG] See Protocol SQ AC-TID 05/21/15 07/31/16 History levETIRAcetam [Keppra] 750 mg PO Q12HR 05/21/15 07/31/16 History Amiodarone [Cordarone] 200 mg PO BID 01/20/16 07/31/16 History Famotidine [Pepcid] 20 mg PO BID 01/20/16 07/31/16 History Sevelamer [Renvela] 1,600 mg PO AC-TID 01/20/16 07/31/16 History acetaZOLAMIDE [Diamox] 125 mg PO BID 01/20/16 07/31/16 History Nkrhylso-Sjnyzflnau-Rsdm Oint 1 applic TOPICAL DAILY 07/28/16 07/31/16 History [Triple Antibiotic Ointment] amLODIPine [Norvasc] 10 mg PO DAILY 07/28/16 07/31/16 History Allergies Allergy/AdvReac Type Severity Reaction Status Date / Time No Known Allergies Allergy Verified 07/28/16 22:49 Surgical - Exam Vital Signs Temp Pulse Resp BP Pulse Ox 102 F H 96 18 110/59 97 07/28/16 22:32 07/28/16 22:32 07/28/16 22:32 07/28/16 22:32 07/28/16 22:32 - General well developed, well nourished, no distress - Respiratory normal respiratory effort - Genitourinary normal penis with no external lesions, testicles non-tender, other (Mild scrotal edema) - Rectum Patient refused DAVID. - Neurologic normal coordination - Musculoskeletal other (s/p left BKA) - Psychiatric oriented to time, oriented to person, oriented to place Results - Labs 08/11/16 09:17 08/11/16 09:17 Abnormal Lab Results - Last 24 Hours (Table) 08/10/16 08/10/16 08/10/16 Range/Units 11:10 17:19 21:17 WBC (3.8-10.6) k/uL RBC (4.30-5.90) m/uL Hgb (13.0-17.5) gm/dL Hct (39.0-53.0) % Neutrophils # (1.3-7.7) k/uL Lymphocytes # (1.0-4.8) k/uL Monocytes # (0-1.0) k/uL Sodium (137-145) mmol/L BUN (9-20) mg/dL Creatinine (0.66-1.25) mg/dL Glucose (74-99) mg/dL POC Glucose (mg/dL) 70 L 62 L (75-99) mg/dL Calcium (8.4-10.2) mg/dL Crossmatch See Detail 08/10/16 08/11/16 08/11/16 Range/Units 21:37 02:01 07:17 WBC (3.8-10.6) k/uL RBC (4.30-5.90) m/uL Hgb (13.0-17.5) gm/dL Hct (39.0-53.0) % Neutrophils # (1.3-7.7) k/uL Lymphocytes # (1.0-4.8) k/uL Monocytes # (0-1.0) k/uL Sodium (137-145) mmol/L BUN (9-20) mg/dL Creatinine (0.66-1.25) mg/dL Glucose (74-99) mg/dL POC Glucose (mg/dL) 72 L 132 H 129 H (75-99) mg/dL Calcium (8.4-10.2) mg/dL Crossmatch 08/11/16 08/11/16 08/11/16 Range/Units 09:17 09:17 12:13 WBC 18.9 H (3.8-10.6) k/uL RBC 2.64 L (4.30-5.90) m/uL Hgb 7.9 L (13.0-17.5) gm/dL Hct 24.4 L (39.0-53.0) % Neutrophils # 16.4 H (1.3-7.7) k/uL Lymphocytes # 0.8 L (1.0-4.8) k/uL Monocytes # 1.3 H (0-1.0) k/uL Sodium 136 L (137-145) mmol/L BUN 30 H (9-20) mg/dL Creatinine 7.57 H* (0.66-1.25) mg/dL Glucose 111 H (74-99) mg/dL POC Glucose (mg/dL) 122 H (75-99) mg/dL Calcium 7.1 L (8.4-10.2) mg/dL Crossmatch Microbiology - Last 24 Hours (Table) 08/09/16 17:15 Blood Culture - Preliminary Blood No Growth after 24 hours Diabetes panel 08/11/16 Range/Units 09:17 Sodium 136 L (137-145) mmol/L Potassium 4.0 (3.5-5.1) mmol/L Chloride 99 (98-107) mmol/L Carbon Dioxide 24 (22-30) mmol/L BUN 30 H (9-20) mg/dL Creatinine 7.57 H* (0.66-1.25) mg/dL Glucose 111 H (74-99) mg/dL Calcium 7.1 L (8.4-10.2) mg/dL Calcium panel 08/11/16 Range/Units 09:17 Calcium 7.1 L (8.4-10.2) mg/dL Pituitary panel 08/11/16 Range/Units 09:17 Sodium 136 L (137-145) mmol/L Potassium 4.0 (3.5-5.1) mmol/L Chloride 99 (98-107) mmol/L Carbon Dioxide 24 (22-30) mmol/L BUN 30 H (9-20) mg/dL Creatinine 7.57 H* (0.66-1.25) mg/dL Glucose 111 H (74-99) mg/dL Calcium 7.1 L (8.4-10.2) mg/dL Adrenal panel 08/11/16 Range/Units 09:17 Sodium 136 L (137-145) mmol/L Potassium 4.0 (3.5-5.1) mmol/L Chloride 99 (98-107) mmol/L Carbon Dioxide 24 (22-30) mmol/L BUN 30 H (9-20) mg/dL Creatinine 7.57 H* (0.66-1.25) mg/dL Glucose 111 H (74-99) mg/dL Calcium 7.1 L (8.4-10.2) mg/dL Assessment and Plan (1) Urinary retention Status: Acute Plan: Mr. Miles has end-stage renal disease but produces some urine. He has experienced urinary retention throughout this hospitalization despite taking tamsulosin. He is not motivated to perform intermittent self-catheterization. In view of this, I would suggest that a Pickard catheter be placed. He should be discharged home on tamsulosin, and undergo a voiding trial in 1 week as an outpatient. It should be noted that a computed tomography scan performed during this hospitalization showed evidence of ascites, which can cause erroneous bladder scan results, but catheterization volumes up to 700 mL are consistent with urinary retention.
[2016-08-11 17:03] LABS: Glucose,Whole Blood 111 mg/dL (75-99)
[2016-08-11] MEDS: ONDANSETRON 4 MG/2 ML VIAL IVP PRN (17:53)
[2016-08-11] MEDS: TAMSULOSIN 0.4 MG CAP.ER.24H PO SCH (17:53)
[2016-08-11 21:14] LABS: Glucose,Whole Blood 107 mg/dL (75-99)
--- NOTE | 2016-08-11 21:54 | P.PN ---
Subjective Principal diagnosis: sepsis 45-year-old male with long-standing history of diabetes mellitus type 2 presents to hospital with a sudden onset of high-grade fever with chills, no delmy rigor with severe body aches. Because he felt so poorly presented to the emergency center. There are temperature 100 and she was noted he was admitted to hospital for concerns to sepsis. His temperature is improved. is still having some nausea and emesis after his cholecystectomy but he does relate he feels considerably better than before the procedure. Is having no difficulties with cloudy fluid. But he had some constipation as well as urinary retention. After these are resolved but expect his dialysis to commence with less difficulties He has not had prior difficulties with peritonitis related to his dialysis. He is now feeling considerably better. Constipation is resolved. Urinary retention is resolved. CAPD fluid has been following more readily without evidence of cloudiness or tenderness. He has had 2 cycles of hemodialysis. His creatinine is improved. Still feels poorly. Still has some nausea and occasional emesis. The catheter is in place draining clear urine. Objective - Vital Signs Vital signs: Vital Signs Temp 98.0 F 08/11/16 15:00 Pulse 74 08/11/16 16:58 Resp 12 08/11/16 15:00 BP 177/100 08/11/16 15:00 Pulse Ox 95 08/11/16 15:00 Intake & Output 08/11/16 08/11/16 08/12/16 06:59 18:59 06:59 Intake Total 270 350 Output Total 775 400 Balance -505 -50 Weight 90 kg 90 kg Intake: IV 270 0.9 @ 20 ml/hr 220 Piperacillin-Tazobactam 3 50 .375 gm In Dextrose/Water 1 50ml.bag @ 12.5 mls/hr IVPB Q12H [facility] Rx#: [id number] Oral 350 Output: Urine 775 300 Straight 700 300 Stool 100 Other: Voiding Method Urinal Urinal # Voids 1 # Bowel Movements 2 - Exam 45-year-old gentleman relates feels poorly after surgery having nausea and emesis. HEENT: Anicteric conjunctiva are pink and moist nasal mucosa grossly intact without significant lesions, there is no thrush. Recent surgical site to the eye is without erythema or tenderness Neck: The neck is supple without significant lymphadenopathy or thyromegaly. Lungs: Good bilateral air entry without significant crackles or wheezing. There is no significant bronchial sounds. There is no egophony or dullness. Heart: Regular rate and rhythm with an audible S1-S2, no S3 no S4. There is no significant murmur click or rub, PMI was nondisplaced. Abdomen: the patient is status post his cholecystectomy , there is evidence of some distention from lack of drainage of his peritoneal fluid for dialysis. Extremities: The upper extremities have excellent pulses they are symmetric, no significant petechiae or telangiectasia. No splinter hemorrhages were noted. The lower extremities are free from significant edema. The peripheral pulses were 2+ and symmetric. Neuro: Awake alert oriented to person place and time. Pickard is in place with clear yellow urine Skin shows evidence of the multiple tattoos but none of them are tender or fresh or infected - Labs CBC & Chem 7: 08/11/16 09:17 08/11/16 09:17 Labs: Abnormal Lab Results - Last 24 Hours (Table) 08/10/16 08/11/16 08/11/16 Range/Units 11:10 02:01 07:17 WBC (3.8-10.6) k/uL RBC (4.30-5.90) m/uL Hgb (13.0-17.5) gm/dL Hct (39.0-53.0) % Neutrophils # (1.3-7.7) k/uL Lymphocytes # (1.0-4.8) k/uL Monocytes # (0-1.0) k/uL Sodium (137-145) mmol/L BUN (9-20) mg/dL Creatinine (0.66-1.25) mg/dL Glucose (74-99) mg/dL POC Glucose (mg/dL) 132 H 129 H (75-99) mg/dL Calcium (8.4-10.2) mg/dL Crossmatch See Detail 08/11/16 08/11/16 08/11/16 Range/Units 09:17 09:17 12:13 WBC 18.9 H (3.8-10.6) k/uL RBC 2.64 L (4.30-5.90) m/uL Hgb 7.9 L (13.0-17.5) gm/dL Hct 24.4 L (39.0-53.0) % Neutrophils # 16.4 H (1.3-7.7) k/uL Lymphocytes # 0.8 L (1.0-4.8) k/uL Monocytes # 1.3 H (0-1.0) k/uL Sodium 136 L (137-145) mmol/L BUN 30 H (9-20) mg/dL Creatinine 7.57 H* (0.66-1.25) mg/dL Glucose 111 H (74-99) mg/dL POC Glucose (mg/dL) 122 H (75-99) mg/dL Calcium 7.1 L (8.4-10.2) mg/dL Crossmatch 08/11/16 08/11/16 Range/Units 17:01 20:42 WBC (3.8-10.6) k/uL RBC (4.30-5.90) m/uL Hgb (13.0-17.5) gm/dL Hct (39.0-53.0) % Neutrophils # (1.3-7.7) k/uL Lymphocytes # (1.0-4.8) k/uL Monocytes # (0-1.0) k/uL Sodium (137-145) mmol/L BUN (9-20) mg/dL Creatinine (0.66-1.25) mg/dL Glucose (74-99) mg/dL POC Glucose (mg/dL) 111 H 107 H (75-99) mg/dL Calcium (8.4-10.2) mg/dL Crossmatch Microbiology - Last 24 Hours (Table) 08/09/16 17:15 Blood Culture - Preliminary Blood No Growth after 48 hours Laboratory Results WBC 18.9 k/uL (3.8-10.6) H 08/11/16 09:17 RBC 2.64 m/uL (4.30-5.90) L 08/11/16 09:17 Hgb 7.9 gm/dL (13.0-17.5) L 08/11/16 09:17 Hct 24.4 % (39.0-53.0) L 08/11/16 09:17 MCV 92.3 fL (80.0-100.0) 08/11/16 09:17 MCH 30.0 pg (25.0-35.0) 08/11/16 09:17 MCHC 32.5 g/dL (31.0-37.0) 08/11/16 09: RDW 14.4 % (11.5-15.5) 08/11/16 09:17 Plt Count 288 k/uL (150-450) 08/11/16 09:17 Neutrophils % 87 % 08/11/16 09:17 Lymphocytes % 4 % 08/11/16 09:17 Monocytes % 7 % 08/11/16 09: Eosinophils % 1 % 08/11/16 09: Basophils % 0 % 08/11/16 09:17 Neutrophils # 16.4 k/uL (1.3-7.7) H 08/11/16 09:17 Lymphocytes # 0.8 k/uL (1.0-4.8) L 08/11/16 09: Monocytes # 1.3 k/uL (0-1.0) H 08/11/16 09:17 Eosinophils # 0.2 k/uL (0-0.7) 08/11/16 09: Basophils # 0.0 k/uL (0-0.2) 08/11/16 09:17 Manual Slide Review Performed 08/01/16 09:17 Hypochromasia Slight 08/10/16 09:13 Poikilocytosis (manual Present 08/01/16 09:17 PT 10.1 sec (9.0-12.0) 07/28/16 23:05 INR 1.0 (<1.1) 07/28/16 23:05 APTT 22.4 sec (22.0-30.0) 07/28/16 23:05 Sodium 136 mmol/L (137-145) L 08/11/16 09:17 Potassium 4.0 mmol/L (3.5-5.1) 08/11/16 09:17 Chloride 99 mmol/L (98-107) 08/11/16 09:17 Carbon Dioxide 24 mmol/L (22-30) 08/11/16 09:17 Anion Gap 13 mmol/L 08/11/16 09:17 BUN 30 mg/dL (9-20) H 08/11/16 09:17 Creatinine 7.57 mg/dL (0.66-1.25) H* 08/11/16 09:17 Est GFR (MDRD) Af Amer 10 (>60 ml/min/1.73 sqM) 08/11/16 09:17 Est GFR (MDRD) Non-Af 8 (>60 ml/min/1.73 sqM) 08/11/16 09:17 Glucose 111 mg/dL (74-99) H 08/11/16 09:17 POC Glucose (mg/dL) 107 mg/dL (75-99) H 08/11/16 20:42 POC Glu [employer] Floor Attendant ID Simona Benavidez 08/11/16 20:[address] Glu mg/dL 303 mg/dL 07/29/16 06:21 Hemoglobin A1c 12.2 % (4.2-6.1) H 07/29/16 06:21 Plasma Lactic Acid Massimo 0.5 mmol/L (0.7-2.0) L 07/29/16 06:21 Calcium 7.1 mg/dL (8.4-10.2) L 08/11/16 09:17 Phosphorus 5.7 mg/dL (2.5-4.5) H 07/29/16 06:21 Magnesium 1.7 mg/dL (1.6-2.3) 07/28/16 23:05 Iron 41 ug/dL (49-181) L 07/29/16 06:21 TIBC 177 ug/dL (261-462) L 07/29/16 06:21 % Saturation 23.2 % (20-50) 07/29/16 06:21 Ferritin 901 ng/mL (18-464) H 07/29/16 06:21 Total Bilirubin 0.4 mg/dL (0.2-1.3) 08/08/16 11:56 AST 21 U/L (17-59) 08/08/16 11:56 ALT 28 U/L (21-72) 08/08/16 11:56 Alkaline Phosphatase 106 U/L (38-126) 08/08/16 11:56 Creatine Kinase 281 U/L (55-170) H 07/30/16 08:21 Troponin I <0.012 ng/mL (0.000-0.034) 07/28/16 23:05 Total Protein 5.2 g/dL (6.3-8.2) L 08/08/16 11:56 Albumin 2.3 g/dL (3.5-5.0) L 08/08/16 11:56 Amylase <30 U/L (30-110) L 07/28/16 23:05 Lipase 28 U/L (23-300) 07/28/16 23:05 Urine Color Light Yellow 08/08/16 15:00 Urine Appearance Clear (Clear) 08/08/16 15:00 Urine pH 7.0 (5.0-8.0) 08/08/16 15:00 Ur Specific [place] 1.005 (1.001-1.035) 08/08/16 15:00 Urine Protein 3+ (Negative) H 08/08/16 15:00 Urine Glucose (UA) 1+ (Negative) H 08/08/16 15:00 Urine Ketones Negative (Negative) 08/08/16 15:00 Urine Blood Negative (Negative) 08/08/16 15:00 Urine Nitrate Negative (Negative) 08/08/16 15:00 Urine Bilirubin Negative (Negative) 08/08/16 15:00 Urine Urobilinogen <2.0 mg/dL (<2.0) 08/08/16 15:00 Ur Leukocyte Esterase Negative (Negative) 08/08/16 15:00 Urine RBC 1 /hpf (0-5) 08/08/16 15:00 Urine WBC 2 /hpf (0-5) 07/29/16 01:00 Urine Bacteria Rare /hpf (None) H 07/29/16 01:00 Urine Mucus Rare /hpf (None) H 08/08/16 15:00 Fluid Source Peritoneal 07/28/16 23:50 Fluid Color Yellow 07/28/16 23:50 Fluid Appearance Clear 07/28/16 23:50 Fluid RBC 0 /uL 07/28/16 23:50 Fluid Nucleated Cells 6 /uL 07/28/16 23:50 Random Vancomycin 29.9 ug/mL 08/04/16 09:01 Gabapentin 36.1 ug/mL (2.0-12.0) H 08/01/16 16:53 Levetiracetam 39.7 ug/mL (3.0-60.0) 08/01/16 08:45 Hep Bs Antigen Negative 08/10/16 09:13 Hep Bs Antibody POSITIVE (Negative) 08/10/16 09:13 Hep B Core IgM Ab NEGATIVE 08/10/16 09:13 Influenza Type A RNA Not Detected (Not Detectd) 07/28/16 23:14 Influenza Type B (PCR) Not Detected (Not Detectd) 07/28/16 23:14 Miscellaneous Test Albumin, BF 07/28/16 23:50 Misc Test Result See comment 07/28/16 23:50 Blood Type A Positive 08/10/16 11:10 Blood Type Recheck No 08/10/16 11:10 Antibody Screen NEGATIVE 08/10/16 11:10 Crossmatch See Detail 08/10/16 11:10 Spec Expiration Date 08/13/2016 - 230908/10/16 11:10 Microbiology 08/09/16 17:15 Blood Blood Culture - Preliminary No Growth after 48 hours 08/08/16 15:00 Urine,Catheterized Urine Culture - Final 07/28/16 23:05 Blood Blood Culture - Final No Growth after 144 hours 07/28/16 23:50 Peritoneal Fluid Gram Stain - Final 07/28/16 23:50 Peritoneal Fluid Body Fluid Culture - Final 07/29/16 01:00 Urine,Voided Urine Culture - Final Assessment and Plan (1) Fever Narrative/Plan: 45-year-old male presents to the emergency center feeling very poorly. Having high-grade fever up to 102 associated with chills without delmy rigors. Significant myalgias occurred. He also had significant gastroenteritis with some nausea and abdominal pain without much diarrhea. He has not had significant hematemesis melena or hematochezia. The peritoneal fluid is clear and colorless with no stated amounts of white cells. Fortunately does not have evidence of peritoneal catheter-related infection. He does have a history of prior significant staphylococcal infection that resulted in the [id number] amputation to the right leg is directly related to his poorly controlled diabetes over the years the last hemoglobin A1c 12.2. imaging studies revealed evidence of abnormal gallbladder. He has been seen by surgery and constantly was taken to the operating room where a stone was noted to be obstructing the common bile duct. Other than some nausea and emesis he is feeling better. Vancomycin was continued . Zosyn added for now given the infectious process Cultures are in process. Maneuvers to improve his hydration and nausea have been given. Leukocytosis at admission likely due to his acute cholecystitis. His creatinine is gone up to 11.2 indicative some the difficulties of his current peritoneal dialysis. Is being seen by nephrology. At this time the patient is all negative cultures. We'll discontinue vancomycin therapy. Zosyn will be discontinued. Would not the need further antibiotic therapy at discharge. He is having some urinary retention. Tamsulosin was added to help with this issue. With his difficulties with emptying of his CAPD fluid. Was concerned that he was still having urinary retention. Is no straight cathing twice per day Nephrology suggesting short-term hemodialysis to improve his uremia is overall status and hopefully will then get back to CAPD. Urinalysis has been sent for culture and is negative. Still no need for antibiotic therapy at this time Status: Acute (2) Gastroenteritis Status: Acute (3) End stage renal disease on dialysis Status: Chronic (4) Poorly controlled type 2 diabetes mellitus with circulatory disorder Status: Acute
[2016-08-11] MEDS: INSULIN GLARGINE 100 UNIT/ML 10 ML VIAL SQ SCH (22:11)
[2016-08-11] MEDS: ATORVASTATIN 80 MG TAB PO SCH (22:30)
[2016-08-12] MEDS: METOCLOPRAMIDE 5 MG/ML 2 ML VIAL IVP PRN ×2 (00:22→08:23)
[2016-08-12 02:10] LABS: Glucose,Whole Blood 128 mg/dL (75-99)
[2016-08-12] MEDS: HYDROmorphone 1 MG/ML 1 ML SYRINGE IVP PRN ×2 (03:14→14:00)
[2016-08-12 07:43] LABS: Glucose,Whole Blood 101 mg/dL (75-99)
[2016-08-12] MEDS: SODIUM BICARBONATE TAB 650 MG TAB PO SCH ×2 (08:19→21:27)
[2016-08-12] MEDS: INSULIN LISPRO (humaLOG) 300 UNIT/3 ML VIAL SQ SCH ×4 (08:19→21:28)
[2016-08-12] MEDS: DIVALPROEX 250 MG TABLET.DR PO SCH ×3 (08:19→21:27)
[2016-08-12] MEDS: AMIODARONE 200 MG TAB PO SCH ×2 (08:20→21:27)
[2016-08-12] MEDS: SEVELAMER 800 MG TAB PO SCH ×3 (08:20→17:18)
[2016-08-12] MEDS: LACTULOSE 20 GM/30 ML CUP PO SCH ×4 (08:21→21:28)
[2016-08-12] MEDS: levETIRAcetam 500 MG TAB PO SCH ×2 (08:21→21:27)
[2016-08-12 09:08] LABS: Basophils % (A) 0 %; CH 30.3; CHCM 32.3; Eosinophils # (A) 0.1 k/uL (0-0.7); Eosinophils % (A) 1 %; HCT 25.6 % (39.0-53.0); HDW 3.27; HGB 8.1 gm/dL (13.0-17.5); Hypochromasia Slight; Luc # (Auto) 0.21; Luc % (Auto) 2; Lymphocytes # (A) 0.8 k/uL (1.0-4.8); Lymphocytes % (A) 6 %; MCH 29.7 pg (25.0-35.0); MCHC 31.6 g/dL (31.0-37.0); Mean Platelet Volume 7.5; Monocytes # (A) 0.8 k/uL (0-1.0); Monocytes % (A) 6 %; Neutrophils # (A) 11.5 k/uL (1.3-7.7); Neutrophils % (A) 86 %; RBC 2.72 m/uL (4.30-5.90); RDW 14.5 % (11.5-15.5); WBC 13.4 k/uL (3.8-10.6)
[2016-08-12] MEDS: LEVOTHYROXINE 25 MCG TAB PO SCH (09:28)
[2016-08-12] MEDS: THIAMINE 100 MG TAB PO SCH (10:40)
[2016-08-12] MEDS: FOLIC ACID-VIT B COMPLEX-VIT C 1 CAP PO SCH (10:40)
[2016-08-12 12:16] LABS: Glucose,Whole Blood 96 mg/dL (75-99)
--- NOTE | 2016-08-12 13:35 | XR ---
EXAMINATION TYPE: XR chest 2V DATE OF EXAM: 08/12/2016 1:20 PM HISTORY: Cough. REFERENCE: Previous study dated 08/10/2016. FINDINGS: There is a large-bore, double-lumen catheter in place via a right internal jugular approach . Its tip is in the region of the cavoatrial junction. The heart is mildly enlarged. There is vascular congestion and interstitial change. Pleural spaces ar e clear. IMPRESSION: FINDINGS CONSISTENT WITH CONGESTIVE HEART FAILURE.
--- NOTE | 2016-08-12 15:27 | PN ---
Patient is seen for followup for end-stage renal disease. He has been temporarily switched to hemodialysis from peritoneal dialysis. Patient had a treatment yesterday. He will be dialyzed again tomorrow. He has also had issues with urine retention and has been evaluated by Urology. A Pickard catheter has been placed and patient is started on Tamsulosin. Patient is status post laparoscopic cholecystectomy on 08/03/2016. On examination, the patient is comfortable. Blood pressure is 142/85 last night, this morning 155/81, heart rate 86 per minute. He is afebrile. Examination of the heart S1 and S2. Examination of the lungs, bilateral breath sounds are heard. Abdomen is soft. There is tenderness noted. Examination of lower extremities shows right BKA. COTTON PICKER exam is grossly intact. Labs show hemoglobin 8.1 g/dL, potassium 4.0 yesterday. ASSESSMENT: 1. End-stage renal disease, switch to hemodialysis as patient was having trouble with PD exchanges after laparoscopic cholecystectomy. He will be dialyzed again tomorrow and we can likely try to resume peritoneal dialysis as outpatient in about 1 to 2 weeks. The catheter will need to be flushed in the meantime. 2. Anemia with no active bleeding noted. Hemoglobin is at 7.9. Patient is maintained on Aranesp which we will continue. 3. History of seizures. 4. History of atrial fibrillation controlled ventricular response. 5. Type 2 diabetes. Plan is hemodialysis in a.m.
[2016-08-12 17:09] LABS: Glucose,Whole Blood 97 mg/dL (75-99)
[2016-08-12] MEDS: DARBEPOETIN ALFA 40 MCG/0.4 ML SYRINGE SQ SCH (18:10)
[2016-08-12] MEDS: TAMSULOSIN 0.4 MG CAP.ER.24H PO SCH (18:10)
[2016-08-12 20:55] LABS: Glucose,Whole Blood 149 mg/dL (75-99)
[2016-08-12] MEDS: ATORVASTATIN 80 MG TAB PO SCH (21:28)
[2016-08-12] MEDS: INSULIN GLARGINE 100 UNIT/ML 10 ML VIAL SQ SCH (21:28)
--- NOTE | 2016-08-12 23:27 | P.PN ---
Subjective Principal diagnosis: sepsis 45-year-old male with long-standing history of diabetes mellitus type 2 presents to hospital with a sudden onset of high-grade fever with chills, no delmy rigor with severe body aches. Because he felt so poorly presented to the emergency center. There are temperature 100 and she was noted he was admitted to hospital for concerns to sepsis. His temperature is improved. is still having some nausea and emesis after his cholecystectomy but he does relate he feels considerably better than before the procedure. Is having no difficulties with cloudy fluid. But he had some constipation as well as urinary retention. After these are resolved but expect his dialysis to commence with less difficulties He has not had prior difficulties with peritonitis related to his dialysis. He is now feeling considerably better. Constipation is resolved. Urinary retention is resolved. CAPD fluid has been following more readily without evidence of cloudiness or tenderness. He has had 2 cycles of hemodialysis. His creatinine is improved. Feels slightly better. Still has some nausea and occasional emesis. The catheter is in place draining clear urine. Objective - Vital Signs Vital signs: Vital Signs Temp 99.0 F 08/12/16 15:00 Pulse 74 08/12/16 16:00 Resp 16 08/12/16 16:00 BP 166/83 08/12/16 15:00 Pulse Ox 91 L 08/12/16 15:00 Intake & Output 08/12/16 08/12/16 08/13/16 06:59 18:59 06:59 Intake Total 100 Output Total 500 200 Balance -500 -100 Weight 90 kg Intake: IV 100 0.9 @ 20 ml/hr 100 Output: Urine 500 Straight 300 Stool 200 Other: Voiding Method Indwelling Catheter Indwelling Catheter # Voids 1 # Bowel Movements 1 # Emeses 2 - Exam 45-year-old gentleman relates feels poorly after surgery having nausea and emesis. HEENT: Anicteric conjunctiva are pink and moist nasal mucosa grossly intact without significant lesions, there is no thrush. Recent surgical site to the eye is without erythema or tenderness Neck: The neck is supple without significant lymphadenopathy or thyromegaly. Lungs: Good bilateral air entry without significant crackles or wheezing. There is no significant bronchial sounds. There is no egophony or dullness. Heart: Regular rate and rhythm with an audible S1-S2, no S3 no S4. There is no significant murmur click or rub, PMI was nondisplaced. Abdomen: the patient is status post his cholecystectomy , there is evidence of some distention from lack of drainage of his peritoneal fluid for dialysis. Extremities: The upper extremities have excellent pulses they are symmetric, no significant petechiae or telangiectasia. No splinter hemorrhages were noted. The lower extremities are free from significant edema. The peripheral pulses were 2+ and symmetric. Neuro: Awake alert oriented to person place and time. Pickard is in place with clear yellow urine Skin shows evidence of the multiple tattoos but none of them are tender or fresh or infected - Labs CBC & Chem 7: 08/12/16 08:05 08/11/16 09:17 Labs: Abnormal Lab Results - Last 24 Hours (Table) 08/12/16 08/12/16 08/12/16 Range/Units 02:08 07:40 08:05 WBC 13.4 H (3.8-10.6) k/uL RBC 2.72 L (4.30-5.90) m/uL Hgb 8.1 L (13.0-17.5) gm/dL Hct 25.6 L (39.0-53.0) % Neutrophils # 11.5 H (1.3-7.7) k/uL Lymphocytes # 0.8 L (1.0-4.8) k/uL POC Glucose (mg/dL) 128 H 101 H (75-99) mg/dL 08/12/16 Range/Units 20:53 WBC (3.8-10.6) k/uL RBC (4.30-5.90) m/uL Hgb (13.0-17.5) gm/dL Hct (39.0-53.0) % Neutrophils # (1.3-7.7) k/uL Lymphocytes # (1.0-4.8) k/uL POC Glucose (mg/dL) 149 H (75-99) mg/dL Microbiology - Last 24 Hours (Table) 08/09/16 17:15 Blood Culture - Preliminary Blood No Growth after 72 hours Laboratory Results WBC 13.4 k/uL (3.8-10.6) H 08/12/16 08:05 RBC 2.72 m/uL (4.30-5.90) L 08/12/16 08:05 Hgb 8.1 gm/dL (13.0-17.5) L 08/12/16 08:05 Hct 25.6 % (39.0-53.0) L 08/12/16 08:05 MCV 94.0 fL (80.0-100.0) 08/12/16 08:05 MCH 29.7 pg (25.0-35.0) 08/12/16 08:05 MCHC 31.6 g/dL (31.0-37.0) 08/12/16 08:05 RDW 14.5 % (11.5-15.5) 08/12/16 08:05 Plt Count 346 k/uL (150-450) 08/12/16 08:05 Neutrophils % 86 % 08/12/16 08:05 Lymphocytes % 6 % 08/12/16 08:05 Monocytes % 6 % 08/12/16 08:05 Eosinophils % 1 % 08/12/16 08:05 Basophils % 0 % 08/12/16 08:05 Neutrophils # 11.5 k/uL (1.3-7.7) H 08/12/16 08:05 Lymphocytes # 0.8 k/uL (1.0-4.8) L 08/12/16 08:05 Monocytes # 0.8 k/uL (0-1.0) 08/12/16 08:05 Eosinophils # 0.1 k/uL (0-0.7) 08/12/16 08:05 Basophils # 0.0 k/uL (0-0.2) 08/12/16 08:05 Manual Slide Review Performed 08/01/16 09:17 Hypochromasia Slight 08/12/16 08:05 Poikilocytosis (manual Present 08/01/16 09:17 PT 10.1 sec (9.0-12.0) 07/28/16 23:05 INR 1.0 (<1.1) 07/28/16 23:05 APTT 22.4 sec (22.0-30.0) 07/28/16 23:05 Sodium 136 mmol/L (137-145) L 08/11/16 09:17 Potassium 4.0 mmol/L (3.5-5.1) 08/11/16 09:17 Chloride 99 mmol/L (98-107) 08/11/16 09:17 Carbon Dioxide 24 mmol/L (22-30) 08/11/16 09:17 Anion Gap 13 mmol/L 08/11/16 09:17 BUN 30 mg/dL (9-20) H 08/11/16 09:17 Creatinine 7.57 mg/dL (0.66-1.25) H* 08/11/16 09:17 Est GFR (MDRD) Af Amer 10 (>60 ml/min/1.73 sqM) 08/11/16 09:17 Est GFR (MDRD) Non-Af 8 (>60 ml/min/1.73 sqM) 08/11/16 09:17 Glucose 111 mg/dL (74-99) H 08/11/16 09:17 POC Glucose (mg/dL) 149 mg/dL (75-99) H 08/12/16 20:53 POC Glu [employer] Roshni Grant 08/12/16 20:[address] Glu mg/dL 303 mg/dL 07/29/16 06:21 Hemoglobin A1c 12.2 % (4.2-6.1) H 07/29/16 06:21 Plasma Lactic Acid Massimo 0.5 mmol/L (0.7-2.0) L 07/29/16 06:21 Calcium 7.1 mg/dL (8.4-10.2) L 08/11/16 09:17 Phosphorus 5.7 mg/dL (2.5-4.5) H 07/29/16 06:21 Magnesium 1.7 mg/dL (1.6-2.3) 07/28/16 23:05 Iron 41 ug/dL (49-181) L 07/29/16 06:21 TIBC 177 ug/dL (261-462) L 07/29/16 06:21 % Saturation 23.2 % (20-50) 07/29/16 06:21 Ferritin 901 ng/mL (18-464) H 07/29/16 06:21 Total Bilirubin 0.4 mg/dL (0.2-1.3) 08/08/16 11:56 AST 21 U/L (17-59) 08/08/16 11:56 ALT 28 U/L (21-72) 08/08/16 11:56 Alkaline Phosphatase 106 U/L (38-126) 08/08/16 11:56 Creatine Kinase 281 U/L (55-170) H 07/30/16 08:21 Troponin I <0.012 ng/mL (0.000-0.034) 07/28/16 23:05 Total Protein 5.2 g/dL (6.3-8.2) L 08/08/16 11:56 Albumin 2.3 g/dL (3.5-5.0) L 08/08/16 11:56 Amylase <30 U/L (30-110) L 07/28/16 23:05 Lipase 28 U/L (23-300) 07/28/16 23:05 Urine Color Light Yellow 08/08/16 15:00 Urine Appearance Clear (Clear) 08/08/16 15:00 Urine pH 7.0 (5.0-8.0) 08/08/16 15:00 Ur Specific Winters 1.005 (1.001-1.035) 08/08/16 15:00 Urine Protein 3+ (Negative) H 08/08/16 15:00 Urine Glucose (UA) 1+ (Negative) H 08/08/16 15:00 Urine Ketones Negative (Negative) 08/08/16 15:00 Urine Blood Negative (Negative) 08/08/16 15:00 Urine Nitrate Negative (Negative) 08/08/16 15:00 Urine Bilirubin Negative (Negative) 08/08/16 15:00 Urine Urobilinogen <2.0 mg/dL (<2.0) 08/08/16 15:00 Ur Leukocyte Esterase Negative (Negative) 08/08/16 15:00 Urine RBC 1 /hpf (0-5) 08/08/16 15:00 Urine WBC 2 /hpf (0-5) 07/29/16 01:00 Urine Bacteria Rare /hpf (None) H 07/29/16 01:00 Urine Mucus Rare /hpf (None) H 08/08/16 15:00 Fluid Source Peritoneal 07/28/16 23:50 Fluid Color Yellow 07/28/16 23:50 Fluid Appearance Clear 07/28/16 23:50 Fluid RBC 0 /uL 07/28/16 23:50 Fluid Nucleated Cells 6 /uL 07/28/16 23:50 Random Vancomycin 29.9 ug/mL 08/04/16 09:01 Gabapentin 36.1 ug/mL (2.0-12.0) H 08/01/16 16:53 Levetiracetam 39.7 ug/mL (3.0-60.0) 08/01/16 08:45 Hep Bs Antigen Negative 08/10/16 09:13 Hep Bs Antibody POSITIVE (Negative) 08/10/16 09:13 Hep B Core IgM Ab NEGATIVE 08/10/16 09:13 Influenza Type A RNA Not Detected (Not Detectd) 07/28/16 23:14 Influenza Type B (PCR) Not Detected (Not Detectd) 07/28/16 23:14 Miscellaneous Test Albumin, BF 07/28/16 23:50 Misc Test Result See comment 07/28/16 23:50 Blood Type A Positive 08/10/16 11:10 Blood Type Recheck No 08/10/16 11:10 Antibody Screen NEGATIVE 08/10/16 11:10 Crossmatch See Detail 08/10/16 11:10 Spec Expiration Date 08/13/2016 - 0 08/10/16 11:10 Microbiology 08/09/16 17:15 Blood Blood Culture - Preliminary No Growth after 72 hours 08/08/16 15:00 Urine,Catheterized Urine Culture - Final 07/28/16 23:05 Blood Blood Culture - Final No Growth after 144 hours 07/28/16 23:50 Peritoneal Fluid Gram Stain - Final 07/28/16 23:50 Peritoneal Fluid Body Fluid Culture - Final 07/29/16 01:00 Urine,Voided Urine Culture - Final Assessment and Plan (1) Fever Narrative/Plan: 45-year-old male presents to the emergency center feeling very poorly. Having high-grade fever up to 102 associated with chills without delmy rigors. Significant myalgias occurred. He also had significant gastroenteritis with some nausea and abdominal pain without much diarrhea. He has not had significant hematemesis melena or hematochezia. The peritoneal fluid is clear and colorless with no stated amounts of white cells. Fortunately does not have evidence of peritoneal catheter-related infection. 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 imaging studies revealed evidence of abnormal gallbladder. He has been seen by surgery and constantly was taken to the operating room where a stone was noted to be obstructing the common bile duct. Other than some nausea and emesis he is feeling better. Vancomycin was continued . Zosyn added for now given the infectious process Cultures are in process. Maneuvers to improve his hydration and nausea have been given. Leukocytosis at admission likely due to his acute cholecystitis. His creatinine is gone up to 11.2 indicative some the difficulties of his current peritoneal dialysis. Is being seen by nephrology. At this time the patient is all negative cultures. We'll discontinue vancomycin therapy. Zosyn will be discontinued. Would not the need further antibiotic therapy at discharge. He is having some urinary retention. Tamsulosin was added to help with this issue. With his difficulties with emptying of his CAPD fluid. Was concerned that he was still having urinary retention. Is no straight cathing twice per day Nephrology suggesting short-term hemodialysis to improve his uremia is overall status and hopefully will then get back to CAPD. Urinalysis has been sent for culture and is negative. Still no need for antibiotic therapy at this time C-Xray with CHF related to volume overload agressive dialysis planned no change of antibiotics Status: Acute (2) Gastroenteritis Status: Acute (3) End stage renal disease on dialysis Status: Chronic (4) Poorly controlled type 2 diabetes mellitus with circulatory disorder Status: Acute
[2016-08-13 02:21] LABS: Glucose,Whole Blood 128 mg/dL (75-99)
[2016-08-13 06:48] LABS: Glucose,Whole Blood 118 mg/dL (75-99)
[2016-08-13] MEDS: INSULIN LISPRO (humaLOG) 300 UNIT/3 ML VIAL SQ SCH ×4 (07:27→21:02)
[2016-08-13 09:51] LABS: Basophils % (A) 0 %; CH 30.3; CHCM 32.3; Eosinophils # (A) 0.1 k/uL (0-0.7); Eosinophils % (A) 2 %; HGB 8.3 gm/dL (13.0-17.5); Hypochromasia Slight; Luc # (Auto) 0.21; Luc % (Auto) 3; Lymphocytes # (A) 0.9 k/uL (1.0-4.8); Lymphocytes % (A) 11 %; MCHC 31.9 g/dL (31.0-37.0); MCV 94.1 fL (80.0-100.0); Monocytes # (A) 0.6 k/uL (0-1.0); Monocytes % (A) 7 %; Neutrophils # (A) 6.3 k/uL (1.3-7.7); Neutrophils % (A) 78 %; RBC 2.77 m/uL (4.30-5.90); RDW 14.1 % (11.5-15.5); WBC 8.1 k/uL (3.8-10.6); WBC (Perox) 8.57
[2016-08-13] MEDS: METOCLOPRAMIDE 5 MG/ML 2 ML VIAL IVP PRN (10:41)
[2016-08-13] MEDS: HYDROmorphone 1 MG/ML 1 ML SYRINGE IVP PRN ×2 (10:41→18:00)
[2016-08-13] MEDS: SEVELAMER 800 MG TAB PO SCH ×3 (10:42→18:01)
[2016-08-13] MEDS: THIAMINE 100 MG TAB PO SCH (10:42)
[2016-08-13] MEDS: levETIRAcetam 500 MG TAB PO SCH (10:42)
[2016-08-13] MEDS: LEVOTHYROXINE 25 MCG TAB PO SCH (10:43)
[2016-08-13] MEDS: LACTULOSE 20 GM/30 ML CUP PO SCH ×4 (10:43→21:02)
[2016-08-13] MEDS: SODIUM BICARBONATE TAB 650 MG TAB PO SCH ×2 (10:43→21:02)
[2016-08-13] MEDS: AMIODARONE 200 MG TAB PO SCH ×2 (10:43→21:02)
[2016-08-13] MEDS: DIVALPROEX 250 MG TABLET.DR PO SCH ×3 (10:43→21:02)
[2016-08-13] MEDS: FOLIC ACID-VIT B COMPLEX-VIT C 1 CAP PO SCH (10:43)
--- NOTE | 2016-08-13 10:46 | P.PN ---
Subjective Principal diagnosis: Patient resting comfortably in bed states he feels some improvement. Latest chest x-ray shows congestive heart failure fluid overload. Case was discussed with the nephrology. Patient will have extended time on hemodialysis. Patient has Pickard in place for urinary retention Objective - Vital Signs Vital signs: Vital Signs Temp 98.3 F 08/13/16 07:00 Pulse 82 08/13/16 07:00 Resp 14 08/13/16 07:00 BP 171/83 08/13/16 07:00 Pulse Ox 96 08/13/16 08:33 Intake & Output 08/12/16 08/13/16 08/13/16 18:59 06:59 18:59 Intake Total 100 Output Total 200 725 Balance -100 -725 Weight 88 kg Intake: IV 100 0.9 @ 20 ml/hr 100 Output: Urine 725 Stool 200 Other: Voiding Method Indwelling Catheter Indwelling Catheter # Voids 1 # Bowel Movements 2 - Constitutional General appearance: Present: obese - EENT Eyes: Present: PERRLA Ears: bilateral: normal - Neck Neck: Present: normal ROM - Respiratory Respiratory: bilateral: diminished - Cardiovascular Rhythm: regular - Gastrointestinal General gastrointestinal: Present: soft Localized gastrointestinal: tender: diffuse - Integumentary Integumentary: Present: normal - Neurologic Neurologic: Present: CNII-XII intact - Musculoskeletal Musculoskeletal: Present: generalized weakness - Psychiatric Psychiatric: Present: A&O x's 3, appropriate affect, intact judgment & insight - Labs CBC & Chem 7: 08/13/16 09:08 08/11/16 09:17 Labs: Abnormal Lab Results - Last 24 Hours (Table) 08/12/16 08/13/16 08/13/16 Range/Units 20:53 02:19 06:45 RBC (4.30-5.90) m/uL Hgb (13.0-17.5) gm/dL Hct (39.0-53.0) % Lymphocytes # (1.0-4.8) k/uL POC Glucose (mg/dL) 149 H 128 H 118 H (75-99) mg/dL 08/13/16 Range/Units 09:08 RBC 2.77 L (4.30-5.90) m/uL Hgb 8.3 L (13.0-17.5) gm/dL Hct 26.0 L (39.0-53.0) % Lymphocytes # 0.9 L (1.0-4.8) k/uL POC Glucose (mg/dL) (75-99) mg/dL Microbiology - Last 24 Hours (Table) 08/09/16 17:15 Blood Culture - Preliminary Blood No Growth after 72 hours - Imaging and Cardiology Chest x-ray: report reviewed Assessment and Plan Plan: Assessment acute cholecystitis post laparoscopic cholecystectomy with sepsis end -stage renal disease on. T Parth dialysis advanced to hemodialysis chronic kidney disease stage V TRF 5 creatinine improving Change in mental status metabolic encephalopathy acute on chronic History of deep venous thrombosis History of coronary disease Diabetes type 2 uncontrolled hyperglycemia A1c of 12.2 history of GERD History of diabetic gastroparesis Urinary retention Congestive heart failure secondary to fluid overload Anemia chronic disease Plan Continue hemodialysis with nephrology Continue consultation with Dr. Sy Hopeful discharge soon
[2016-08-13 11:34] LABS: Glucose,Whole Blood 119 mg/dL (75-99)
[2016-08-13 12:43] LABS: Calcium 7.4 mg/dL (8.4-10.2); Potassium 3.3 mmol/L (3.5-5.1)
--- NOTE | 2016-08-13 14:51 | PN ---
Patient is seen for follow-up for end stage renal disease. He is currently switched over to hemodialysis as he was having issues with PD. This is most likely temporary. The patient is scheduled for hemodialysis today. On examination, blood pressure was high 171/83. Pulse rate 82 per minute. He is afebrile. Examination of the heart S1 and S2. Examination of the lungs, bilateral breath sounds are heard. Abdomen is soft. Examination of the lower extremities shows no significant edema. On examination, the patient is comfortable. Vital signs are noted. 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 NEONATAL INTENSIVE CARE NURSE exam is grossly intact. Patient is moving all 4 extremities. LABS: Sodium 139, potassium 3.8, hemoglobin 8.3. ASSESSMENT: 1. End stage renal disease, currently on temporary hemodialysis we will then switch over to ( ) peritoneal dialysis as outpatient. 2. Anemia with no active bleeding noted. Hemoglobin has improved, maintained on Aranesp. 3. History of ( ) with controlled ventricular response. 4. ( ) seizures. 5. Type 2 diabetes. PLAN: Hemodialysis today.
[2016-08-13] MEDS ORDERED: HEPARIN SODIUM,PORCINE 5,000 UNIT/ML 1 ML VIAL ONE (15:30)
[2016-08-13 17:09] LABS: Glucose,Whole Blood 91 mg/dL (75-99)
[2016-08-13] MEDS: TAMSULOSIN 0.4 MG CAP.ER.24H PO SCH (18:01)
[2016-08-13 20:57] LABS: Glucose,Whole Blood 87 mg/dL (75-99)
[2016-08-13] MEDS: ATORVASTATIN 80 MG TAB PO SCH (21:02)
[2016-08-13] MEDS: INSULIN GLARGINE 100 UNIT/ML 10 ML VIAL SQ SCH (21:02)
--- NOTE | 2016-08-13 21:03 | P.PN ---
Subjective Principal diagnosis: sepsis 45-year-old male with long-standing history of diabetes mellitus type 2 presents to hospital with a sudden onset of high-grade fever with chills, no delmy rigor with severe body aches. Because he felt so poorly presented to the emergency center. There are temperature 100 and she was noted he was admitted to hospital for concerns to sepsis. His temperature is improved. is still having some nausea and emesis after his cholecystectomy but he does relate he feels considerably better than before the procedure. Is having no difficulties with cloudy fluid. But he had some constipation as well as urinary retention. After these are resolved but expect his dialysis to commence with less difficulties He has not had prior difficulties with peritonitis related to his dialysis. He is now feeling considerably better. Constipation is resolved. Urinary retention is resolved. CAPD fluid has been following more readily without evidence of cloudiness or tenderness. Feels slightly better. Still has some nausea and occasional emesis. The catheter is in place draining clear urine. Have dialysis again today. His grandson is 6.6. With his marked improvement of uremia he's feeling better. Appetite is improved. Strength is improving. He is contemplating feeling well enough to go home. Objective - Vital Signs Vital signs: Vital Signs Temp 97.4 F L 08/13/16 15:00 Pulse 74 08/13/16 16:46 Resp 16 08/13/16 16:46 BP 155/97 08/13/16 15:00 Pulse Ox 94 L 08/13/16 15:00 Intake & Output 08/13/16 08/13/16 08/14/16 06:59 18:59 06:59 Intake Total 240 Output Total 725 500 Balance -725 -260 Weight 88 kg Intake: IV 240 Invasive Line 2 240 Oral 0 Output: Urine 725 400 Stool 100 Other: Voiding Method Indwelling Catheter Indwelling Catheter # Voids 1 # Bowel Movements 2 1 - Exam 45-year-old gentleman relates feels poorly after surgery having nausea and emesis. HEENT: Anicteric conjunctiva are pink and moist nasal mucosa grossly intact without significant lesions, there is no thrush. Recent surgical site to the eye is without erythema or tenderness Neck: The neck is supple without significant lymphadenopathy or thyromegaly. Lungs: Good bilateral air entry without significant crackles or wheezing. There is no significant bronchial sounds. There is no egophony or dullness. Heart: Regular rate and rhythm with an audible S1-S2, no S3 no S4. There is no significant murmur click or rub, PMI was nondisplaced. Abdomen: the patient is status post his cholecystectomy , there is evidence of some distention from lack of drainage of his peritoneal fluid for dialysis. Extremities: The upper extremities have excellent pulses they are symmetric, no significant petechiae or telangiectasia. No splinter hemorrhages were noted. The lower extremities are free from significant edema. The peripheral pulses were 2+ and symmetric. Neuro: Awake alert oriented to person place and time. Pickard is in place with clear yellow urine Skin shows evidence of the multiple tattoos but none of them are tender or fresh or infected - Labs CBC & Chem 7: 08/13/16 09:08 08/13/16 18:41 Labs: Abnormal Lab Results - Last 24 Hours (Table) 08/13/16 08/13/16 08/13/16 Range/Units 02:19 06:45 09:08 RBC 2.77 L (4.30-5.90) m/uL Hgb 8.3 L (13.0-17.5) gm/dL Hct 26.0 L (39.0-53.0) % Lymphocytes # 0.9 L (1.0-4.8) k/uL Potassium (3.5-5.1) mmol/L BUN (9-20) mg/dL Creatinine (0.66-1.25) mg/dL Glucose (74-99) mg/dL POC Glucose (mg/dL) 128 H 118 H (75-99) mg/dL Calcium (8.4-10.2) mg/dL 08/13/16 08/13/16 Range/Units 09:08 11:32 RBC (4.30-5.90) m/uL Hgb (13.0-17.5) gm/dL Hct (39.0-53.0) % Lymphocytes # (1.0-4.8) k/uL Potassium 3.3 L (3.5-5.1) mmol/L BUN 23 H (9-20) mg/dL Creatinine 6.60 H* (0.66-1.25) mg/dL Glucose 111 H (74-99) mg/dL POC Glucose (mg/dL) 119 H (75-99) mg/dL Calcium 7.4 L (8.4-10.2) mg/dL Microbiology - Last 24 Hours (Table) 08/09/16 17:15 Blood Culture - Preliminary Blood No Growth after 96 hours Laboratory Results WBC 8.1 k/uL (3.8-10.6) 08/13/16 09:08 RBC 2.77 m/uL (4.30-5.90) L 08/13/16 09:08 Hgb 8.3 gm/dL (13.0-17.5) L 08/13/16 09:08 Hct 26.0 % (39.0-53.0) L 08/13/16 09:08 MCV 94.1 fL (80.0-100.0) 08/13/16 09:08 MCH 30.0 pg (25.0-35.0) 08/13/16 09:08 MCHC 31.9 g/dL (31.0-37.0) 08/13/16 09:08 RDW 14.1 % (11.5-15.5) 08/13/16 09:08 Plt Count 403 k/uL (150-450) 08/13/16 09:08 Neutrophils % 78 % 08/13/16 09:08 Lymphocytes % 11 % 08/13/16 09:08 Monocytes % 7 % 08/13/16 09:08 Eosinophils % 2 % 08/13/16 09:08 Basophils % 0 % 08/13/16 09:08 Neutrophils # 6.3 k/uL (1.3-7.7) 08/13/16 09:08 Lymphocytes # 0.9 k/uL (1.0-4.8) L 08/13/16 09:08 Monocytes # 0.6 k/uL (0-1.0) 08/13/16 09:08 Eosinophils # 0.1 k/uL (0-0.7) 08/13/16 09:08 Basophils # 0.0 k/uL (0-0.2) 08/13/16 09:08 Manual Slide Review Performed 08/01/16 09:17 Hypochromasia Slight 08/13/16 09:08 Poikilocytosis (manual Present 08/01/16 09:17 PT 10.1 sec (9.0-12.0) 07/28/16 23:05 INR 1.0 (<1.1) 07/28/16 23:05 APTT 22.4 sec (22.0-30.0) 07/28/16 23:05 Sodium 139 mmol/L (137-145) 08/13/16 09:08 Potassium 3.5 mmol/L (3.5-5.1) 08/13/16 18:41 Chloride 101 mmol/L (98-107) 08/13/16 09:08 Carbon Dioxide 27 mmol/L (22-30) 08/13/16 09:08 Anion Gap 11 mmol/L 08/13/16 09:08 BUN 23 mg/dL (9-20) H 08/13/16 09:08 Creatinine 6.60 mg/dL (0.66-1.25) H* 08/13/16 09:08 Est GFR (MDRD) Af Amer 11 (>60 ml/min/1.73 sqM) 08/13/16 09:08 Est GFR (MDRD) Non-Af 9 (>60 ml/min/1.73 sqM) 08/13/16 09:08 Glucose 111 mg/dL (74-99) H 08/13/16 09:08 POC Glucose (mg/dL) 87 mg/dL (75-99) 08/13/16 20:55 POC Glu Diamond Cutter Roseline Ace 08/13/16 20:[address] Glu mg/dL 303 mg/dL 07/29/16 06:21 Hemoglobin A1c 12.2 % (4.2-6.1) H 07/29/16 06:21 Plasma Lactic Acid Massimo 0.5 mmol/L (0.7-2.0) L 07/29/16 06:21 Calcium 7.4 mg/dL (8.4-10.2) L 08/13/16 09:08 Phosphorus 5.7 mg/dL (2.5-4.5) H 07/29/16 06:21 Magnesium 1.7 mg/dL (1.6-2.3) 07/28/16 23:05 Iron 41 ug/dL (49-181) L 07/29/16 06:21 TIBC 177 ug/dL (261-462) L 07/29/16 06:21 % Saturation 23.2 % (20-50) 07/29/16 06:21 Ferritin 901 ng/mL (18-464) H 07/29/16 06:21 Total Bilirubin 0.4 mg/dL (0.2-1.3) 08/08/16 11:56 AST 21 U/L (17-59) 08/08/16 11:56 ALT 28 U/L (21-72) 08/08/16 11:56 Alkaline Phosphatase 106 U/L (38-126) 08/08/16 11:56 Creatine Kinase 281 U/L (55-170) H 07/30/16 08:21 Troponin I <0.012 ng/mL (0.000-0.034) 07/28/16 23:05 Total Protein 5.2 g/dL (6.3-8.2) L 08/08/16 11:56 Albumin 2.3 g/dL (3.5-5.0) L 08/08/16 11:56 Amylase <30 U/L (30-110) L 07/28/16 23:05 Lipase 28 U/L (23-300) 07/28/16 23:05 Urine Color Light Yellow 08/08/16 15:00 Urine Appearance Clear (Clear) 08/08/16 15:00 Urine pH 7.0 (5.0-8.0) 08/08/16 15:00 Ur Specific [place] 1.005 (1.001-1.035) 08/08/16 15:00 Urine Protein 3+ (Negative) H 08/08/16 15:00 Urine Glucose (UA) 1+ (Negative) H 08/08/16 15:00 Urine Ketones Negative (Negative) 08/08/16 15:00 Urine Blood Negative (Negative) 08/08/16 15:00 Urine Nitrate Negative (Negative) 08/08/16 15:00 Urine Bilirubin Negative (Negative) 08/08/16 15:00 Urine Urobilinogen <2.0 mg/dL (<2.0) 08/08/16 15:00 Ur Leukocyte Esterase Negative (Negative) 08/08/16 15:00 Urine RBC 1 /hpf (0-5) 08/08/16 15:00 Urine WBC 2 /hpf (0-5) 07/29/16 01:00 Urine Bacteria Rare /hpf (None) H 07/29/16 01:00 Urine Mucus Rare /hpf (None) H 08/08/16 15:00 Fluid Source Peritoneal 07/28/16 23:50 Fluid Color Yellow 07/28/16 23:50 Fluid Appearance Clear 07/28/16 23:50 Fluid RBC 0 /uL 07/28/16 23:50 Fluid Nucleated Cells 6 /uL 07/28/16 23:50 Random Vancomycin 29.9 ug/mL 08/04/16 09:01 Gabapentin 36.1 ug/mL (2.0-12.0) H 08/01/16 16:53 Levetiracetam 39.7 ug/mL (3.0-60.0) 08/01/16 08:45 Hep Bs Antigen Negative 08/10/16 09:13 Hep Bs Antibody POSITIVE (Negative) 08/10/16 09:13 Hep B Core IgM Ab NEGATIVE 08/10/16 09:13 Influenza Type A RNA Not Detected (Not Detectd) 07/28/16 23:14 Influenza Type B (PCR) Not Detected (Not Detectd) 07/28/16 23:14 Miscellaneous Test Albumin, BF 07/28/16 23:50 Misc Test Result See comment 07/28/16 23:50 Blood Type A Positive 08/10/16 11:10 Blood Type Recheck No 08/10/16 11:10 Antibody Screen NEGATIVE 08/10/16 11:10 Crossmatch See Detail 08/10/16 11:10 Spec Expiration Date 08/13/2016 - 2310 08/10/16 11:10 Microbiology 08/09/16 17:15 Blood Blood Culture - Preliminary No Growth after 96 hours 08/08/16 15:00 Urine,Catheterized Urine Culture - Final 07/28/16 23:05 Blood Blood Culture - Final No Growth after 144 hours 07/28/16 23:50 Peritoneal Fluid Gram Stain - Final 07/28/16 23:50 Peritoneal Fluid Body Fluid Culture - Final 07/29/16 01:00 Urine,Voided Urine Culture - Final Assessment and Plan (1) Fever Narrative/Plan: 45-year-old male presents to the emergency center feeling very poorly. Having high-grade fever up to 102 associated with chills without delmy rigors. Significant myalgias occurred. He also had significant gastroenteritis with some nausea and abdominal pain without much diarrhea. He has not had significant hematemesis melena or hematochezia. The peritoneal fluid is clear and colorless with no stated amounts of white cells. Fortunately does not have evidence of peritoneal catheter-related infection. 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 imaging studies revealed evidence of abnormal gallbladder. He has been seen by surgery and constantly was taken to the operating room where a stone was noted to be obstructing the common bile duct. Other than some nausea and emesis he is feeling better. Vancomycin was continued . Zosyn added for now given the infectious process Cultures are in process. Maneuvers to improve his hydration and nausea have been given. Leukocytosis at admission likely due to his acute cholecystitis. His creatinine had gone up to 11.2 indicative some the difficulties of his current peritoneal dialysis. Is being seen by nephrology. At this time the patient is all negative cultures. We'll discontinue vancomycin therapy. Zosyn will be discontinued. Would not the need further antibiotic therapy at discharge. He is having some urinary retention. Tamsulosin was added to help with this issue. With his difficulties with emptying of his CAPD fluid. Was concerned that he was still having urinary retention. Is no straight cathing twice per day Nephrology suggesting short-term hemodialysis to improve his uremia is overall status and hopefully will then get back to CAPD. Urinalysis has been sent for culture and is negative. Still no need for antibiotic therapy at this time C-Xray with CHF related to volume overload agressive dialysis planned no change of antibiotics Status: Acute (2) Gastroenteritis Status: Acute (3) End stage renal disease on dialysis Status: Chronic (4) Poorly controlled type 2 diabetes mellitus with circulatory disorder Status: Acute
[2016-08-14] MEDS: HYDROmorphone 1 MG/ML 1 ML SYRINGE IVP PRN ×2 (00:03→06:44)
[2016-08-14 02:12] LABS: Glucose,Whole Blood 118 mg/dL (75-99)
[2016-08-14] MEDS: INSULIN LISPRO (humaLOG) 300 UNIT/3 ML VIAL SQ SCH ×4 (07:05→21:36)
[2016-08-14 07:37] LABS: Glucose,Whole Blood 101 mg/dL (75-99)
[2016-08-14 09:04] LABS: Basophils % (A) 1 %; CH 29.7; CHCM 30.5; Eosinophils # (A) 0.2 k/uL (0-0.7); Eosinophils % (A) 3 %; HCT 27.6 % (39.0-53.0); HDW 3.22; HGB 8.6 gm/dL (13.0-17.5); Hypochromasia Marked; Luc # (Auto) 0.26; Luc % (Auto) 3; Lymphocytes # (A) 1.1 k/uL (1.0-4.8); Lymphocytes % (A) 14 %; MCH 30.4 pg (25.0-35.0); MCHC 31.1 g/dL (31.0-37.0); MCV 97.8 fL (80.0-100.0); Mean Platelet Volume 7.1; Monocytes # (A) 0.5 k/uL (0-1.0); Monocytes % (A) 6 %; Neutrophils # (A) 5.8 k/uL (1.3-7.7); Neutrophils % (A) 74 %; RBC 2.82 m/uL (4.30-5.90); WBC 7.8 k/uL (3.8-10.6); WBC (Perox) 8.31
[2016-08-14] MEDS: LACTULOSE 20 GM/30 ML CUP PO SCH ×4 (09:28→21:37)
[2016-08-14] MEDS: SEVELAMER 800 MG TAB PO SCH ×3 (09:30→17:21)
[2016-08-14] MEDS: LEVOTHYROXINE 25 MCG TAB PO SCH (09:30)
[2016-08-14] MEDS: DIVALPROEX 250 MG TABLET.DR PO SCH ×3 (09:31→21:37)
[2016-08-14] MEDS: AMIODARONE 200 MG TAB PO SCH ×2 (09:31→20:18)
[2016-08-14] MEDS: SODIUM BICARBONATE TAB 650 MG TAB PO SCH ×2 (09:31→20:18)
[2016-08-14] MEDS: FOLIC ACID-VIT B COMPLEX-VIT C 1 CAP PO SCH (09:32)
[2016-08-14 12:23] LABS: Glucose,Whole Blood 100 mg/dL (75-99)
[2016-08-14] MEDS: THIAMINE 100 MG TAB PO SCH (12:49)
--- NOTE | 2016-08-14 14:21 | XR ---
EXAMINATION TYPE: XR chest 2V DATE OF EXAM: 08/14/2016 2:17 PM COMPARISON: 08/12/2016 HISTORY: Pain FINDINGS: Degenerative change of the spine with evidence of vertebroplasty and additional compression deformity stable. Dialysis catheter is again noted and there is persistent diffuse interstitial pattern which is unchan ged. Previous trauma the left humerus noted. No pneumothorax. The heart is enlarged. No focal consolidation IMPRESSION: 1. Diffuse interstitial pattern with cardiomegaly. Correlate for venous congestion. Findings appear s table.
[2016-08-14 14:54] VITALS: BP 197/116; PULSE 99; RESP 16; TEMP 99.1
[2016-08-14 17:21] LABS: Glucose,Whole Blood 86 mg/dL (75-99)
[2016-08-14] MEDS: TAMSULOSIN 0.4 MG CAP.ER.24H PO SCH (17:21)
--- NOTE | 2016-08-14 18:21 | P.PN ---
Subjective Principal diagnosis: sepsis 45-year-old male with long-standing history of diabetes mellitus type 2 presents to hospital with a sudden onset of high-grade fever with chills, no delmy rigor with severe body aches. Because he felt so poorly presented to the emergency center. There are temperature 100 and she was noted he was admitted to hospital for concerns to sepsis. His temperature is improved. is still having some nausea and emesis after his cholecystectomy but he does relate he feels considerably better than before the procedure. Is having no difficulties with cloudy fluid. But he had some constipation as well as urinary retention. After these are resolved but expect his dialysis to commence with less difficulties He has not had prior difficulties with peritonitis related to his dialysis. He is now feeling considerably better. Constipation is resolved. Urinary retention is resolved. CAPD fluid has been following more readily without evidence of cloudiness or tenderness. Feels slightly better. Still has some nausea and occasional emesis. The catheter is in place draining clear urine. Have dialysis again today. His grandson is 6.6. With his marked improvement of uremia he's feeling better. Appetite is improved. Strength is improving. He is feeling well enough to go home. Objective - Vital Signs Vital signs: Vital Signs Temp 99.1 F 08/14/16 14:53 Pulse 99 08/14/16 14:53 Resp 16 08/14/16 14:53 BP 197/116 08/14/16 14:53 Pulse Ox 96 08/14/16 14:53 Intake & Output 08/13/16 08/14/16 08/14/16 18:59 06:59 18:59 Intake Total 240 480 600 Output Total 500 300 400 Balance -260 180 200 Weight 86.5 kg Intake: IV 240 Invasive Line 2 240 Oral 0 480 600 Output: Urine 400 300 200 Stool 100 200 Other: Voiding Method Indwelling Catheter Indwelling Catheter Indwelling Catheter # Bowel Movements 1 1 - Exam 45-year-old gentleman relates feels poorly after surgery having nausea and emesis. HEENT: Anicteric conjunctiva are pink and moist nasal mucosa grossly intact without significant lesions, there is no thrush. Recent surgical site to the eye is without erythema or tenderness Neck: The neck is supple without significant lymphadenopathy or thyromegaly. Lungs: Good bilateral air entry without significant crackles or wheezing. There is no significant bronchial sounds. There is no egophony or dullness. Heart: Regular rate and rhythm with an audible S1-S2, no S3 no S4. There is no significant murmur click or rub, PMI was nondisplaced. Abdomen: the patient is status post his cholecystectomy , there is evidence of some distention from lack of drainage of his peritoneal fluid for dialysis. Extremities: The upper extremities have excellent pulses they are symmetric, no significant petechiae or telangiectasia. No splinter hemorrhages were noted. The lower extremities are free from significant edema. The peripheral pulses were 2+ and symmetric. Neuro: Awake alert oriented to person place and time. Pickard is in place with clear yellow urine Skin shows evidence of the multiple tattoos but none of them are tender or fresh or infected - Labs CBC & Chem 7: 08/14/16 08:10 08/13/16 18:41 Labs: Abnormal Lab Results - Last 24 Hours (Table) 08/14/16 08/14/16 08/14/16 Range/Units 02:10 07:36 08:10 RBC 2.82 L (4.30-5.90) m/uL Hgb 8.6 L (13.0-17.5) gm/dL Hct 27.6 L (39.0-53.0) % POC Glucose (mg/dL) 118 H 101 H (75-99) mg/dL 08/14/16 Range/Units 12:22 RBC (4.30-5.90) m/uL Hgb (13.0-17.5) gm/dL Hct (39.0-53.0) % POC Glucose (mg/dL) 100 H (75-99) mg/dL Microbiology - Last 24 Hours (Table) 08/09/16 17:15 Blood Culture - Preliminary Blood No Growth after 96 hours Assessment and Plan (1) Fever Narrative/Plan: 45-year-old male presents to the emergency center feeling very poorly. Having high-grade fever up to 102 associated with chills without delmy rigors. Significant myalgias occurred. He also had significant gastroenteritis with some nausea and abdominal pain without much diarrhea. He has not had significant hematemesis melena or hematochezia. The peritoneal fluid is clear and colorless with no stated amounts of white cells. Fortunately does not have evidence of peritoneal catheter-related infection. He does have a history of prior significant staphylococcal infection that resulted in the [id number] amputation to the right leg is directly related to his poorly controlled diabetes over the years the last hemoglobin A1c 12.2. imaging studies revealed evidence of abnormal gallbladder. He has been seen by surgery and constantly was taken to the operating room where a stone was noted to be obstructing the common bile duct. Other than some nausea and emesis he is feeling better. Vancomycin was continued . Zosyn added for now given the infectious process Cultures are in process. Maneuvers to improve his hydration and nausea have been given. Leukocytosis at admission likely due to his acute cholecystitis. His creatinine had gone up to 11.2 indicative some the difficulties of his current peritoneal dialysis. Is being seen by nephrology. At this time the patient is all negative cultures. We'll discontinue vancomycin therapy. Zosyn will be discontinued. Would not the need further antibiotic therapy at discharge. He is having some urinary retention. Tamsulosin was added to help with this issue. With his difficulties with emptying of his CAPD fluid. Was concerned that he was still having urinary retention. Is no straight cathing twice per day Nephrology suggesting short-term hemodialysis to improve his uremia is overall status and hopefully will then get back to CAPD. Urinalysis has been sent for culture and is negative. Still no need for antibiotic therapy at this time C-Xray with CHF related to volume overload agressive dialysis planned no change of antibiotics Status: Acute (2) Gastroenteritis Status: Acute (3) End stage renal disease on dialysis Status: Chronic (4) Poorly controlled type 2 diabetes mellitus with circulatory disorder Status: Acute
--- NOTE | 2016-08-14 18:48 | PN ---
Patient is seen for followup for end-stage renal disease. He is lying comfortably in bed. He states his abdominal pain has improved, although there is still some pain in the upper abdomen near the incision site towards the left side. He was dialyzed yesterday. On examination, blood pressure is 197/116; earlier one was 167/99. Heart rate 79 per minute. He is afebrile. EXAMINATION OF THE HEART: S1 and S2. EXAMINATION OF THE LUNGS: Bilateral breath sounds are heard. ABDOMEN: Soft, nontender. Examination of lower extremities shows no significant edema. Patient has right BKA. Hemoglobin was at 8.6 g/dL. ASSESSMENT: 1. End-stage renal disease, on temporary hemodialysis. Will try the PD again as outpatient in about one week's time. In the meantime, patient is maintained on a Wednesday, , Wednesday schedule for hemodialysis via IJ Perm-A-Cath. 2. Status post laparoscopic cholecystectomy. PD catheter remains in place. We will try to use it as outpatient in about one week's time. 3. Anemia of chronic disease, maintained on JOSE MIGUEL in the form of Aranesp. PLAN: Hemodialysis tomorrow if patient is still in the hospital; otherwise he will need to be dialyzed as outpatient.
[2016-08-14] MEDS: LORazepam 0.5 MG TAB PO PRN (20:17)
[2016-08-14] MEDS: ATORVASTATIN 80 MG TAB PO SCH (20:18)
[2016-08-14 21:36] LABS: Glucose,Whole Blood 123 mg/dL (75-99)
[2016-08-14] MEDS: INSULIN GLARGINE 100 UNIT/ML 10 ML VIAL SQ SCH (21:36)
--- NOTE | 2016-08-15 19:44 | DS ---
DATE OF ADMISSION: 07/29/2016 DATE OF DISCHARGE: 08/14/2016 FINAL DIAGNOSES: 1. Acute cholecystitis with cystic duct obstruction secondary to choledocholithiasis as well as acute sepsis, present on admission. 2. Status post laparoscopic cholecystectomy 3. Newly started hemodialysis. Continued fever, improved. 4. Change in mental status, metabolic encephalopathy, multifactorial. 5. Increased WBC. 6. Anemia, multifactorial. 7. End-stage renal disease, chronic kidney disease, stage 5. 8. Multiple myoclonic jerks. 9. Possible Neurontin toxicity, present on admission, improving. 10. History of deep venous thrombosis. 11. History of coronary artery disease. 12. Diabetes mellitus type 2, uncontrolled. 13. History of gastroesophageal reflux disease. 14. History of gastroparesis, diabetic. 15. Hemoglobin A1c 12.2. 16. Hyponatremia. 17. Anemia of chronic disease. 18. FULL CODE. DISCHARGE DISPOSITION: The patient will be discharged in a stable condition with guarded prognosis. Total time taken 31 minutes. HISTORY OF PRESENT ILLNESS: This 45-year-old gentleman with a past medical history of multiple medical problems as mentioned being followed by Dr. José Cm as an outpatient admitted with sepsis and multiple medical issues as mentioned earlier. Patient initially underwent laparoscopic cholecystectomy and subsequently patient needed peritoneal dialysis continued. Because of lack of improvement, hemodialysis was substituted. The patient improved significantly with hemodialysis. On exam, vitals stable. CARDIOVASCULAR: S1 and S2 muffled. ABDOMEN: Soft. NERVOUS SYSTEM: ntd. DISCHARGE ADVICE AND MEDICATIONS: 1. Diet is cardiac. 2. Activity limited until followup. 3. Continue the hemodialysis as recommended. 4. Follow up with Dr. José Cm as well as follow up with Dr. Ovalles and Dr. Arias as recommended. 5. Medications are: a. Cordarone 200 mg p.o. b.i.d. b. Lipitor 80 mg q.h.s. c. Phosphorus 1334 mg p.o. t.i.d. d. Depakote 250 mg p.o. t.i.d. e. Pepcid 20 mg p.o. b.i.d. f. Flonase 2 sprays daily. g. Folic acid 1 mg p.o. daily. h. Foltx 1 tablet q.h.s. i. Neurontin 300 mg p.o. t.i.d. j. NovoLog scale. k. Lantus 10 units subcu q.h.s. l. Cephulac 30 g p.o. q.i.d. m. Synthroid 25 mcg p.o. daily. n. Neomycin triple antibiotic topically. o. Renvela 60 mg p.o. daily. p. Sodium bicarb 1300 mg p.o. b.i.d. q. Flomax 0.4 daily. r. Thiamine 100 mg daily. s. Keppra 750 mg p.o. b.i.d. MTDD
== END 2016-08-14 22:00 | disposition home or self-care (01) | DRG 853 ==
LOC: EC 22:30 → 4MS4W 07-29 01:10
PROVIDERS: ADMIT Family Medicine; ATTEND Family Medicine
PROC: 3E1M39Z Irrigation of Peritoneal Cavity using Dialysate, Percutaneous Approach (ICD-10-PCS; 2016-07-29)
PROC: 0FT44ZZ Resection of Gallbladder, Percutaneous Endoscopic Approach (ICD-10-PCS; principal; 2016-07-31 07:30)
PROC: 5A1D60Z (ICD-10-PCS; 2016-08-10)
PROC: 30260N1 (ICD-10-PCS; 2016-08-10)
PROC: 05HM33Z Insertion of Infusion Device into Right Internal Jugular Vein, Percutaneous Approach (ICD-10-PCS; 2016-08-10 08:30)
DX: A41.9 Sepsis, unspecified organism (principal); G93.41 Metabolic encephalopathy; K80.67 Calculus of gallbladder and bile duct with acute and chronic cholecystitis with obstruction; N18.6 End stage renal disease; I13.2 Hypertensive heart and chronic kidney disease with heart failure and with stage 5 chronic kidney disease, or end stage renal disease; N17.9 Acute kidney failure, unspecified; E87.2 Acidosis; I43 Cardiomyopathy in diseases classified elsewhere; E87.1 Hypo-osmolality and hyponatremia; T85.611A Breakdown (mechanical) of intraperitoneal dialysis catheter, initial encounter; I48.91 Unspecified atrial fibrillation; G25.3 Myoclonus; G40.909 Epilepsy, unspecified, not intractable, without status epilepticus; K31.84 Gastroparesis; E11.21 Type 2 diabetes mellitus with diabetic nephropathy; E11.42 Type 2 diabetes mellitus with diabetic polyneuropathy; D63.1 Anemia in chronic kidney disease; E11.22 Type 2 diabetes mellitus with diabetic chronic kidney disease; E11.43 Type 2 diabetes mellitus with diabetic autonomic (poly)neuropathy; E11.51 Type 2 diabetes mellitus with diabetic peripheral angiopathy without gangrene; E11.65 Type 2 diabetes mellitus with hyperglycemia; E66.9 Obesity, unspecified; E78.5 Hyperlipidemia, unspecified; E87.6 Hypokalemia; F17.200 Nicotine dependence, unspecified, uncomplicated; I25.10 Atherosclerotic heart disease of native coronary artery without angina pectoris; I25.2 Old myocardial infarction; I50.9 Heart failure, unspecified; K21.9 Gastro-esophageal reflux disease without esophagitis; K52.9 Noninfective gastroenteritis and colitis, unspecified; K59.00 Constipation, unspecified; R33.9 Retention of urine, unspecified; T42.6X5A Adverse effect of other antiepileptic and sedative-hypnotic drugs, initial encounter; N18.9 Chronic kidney disease, unspecified; E83.9 Disorder of mineral metabolism, unspecified; Z76.82 Awaiting organ transplant status; Z94.0 Kidney transplant status; Z79.4 Long term (current) use of insulin; Z79.899 Other long term (current) drug therapy; Z86.14 Personal history of Methicillin resistant Staphylococcus aureus infection; Z89.612 Acquired absence of left leg above knee; Z99.2 Dependence on renal dialysis; Z89.431 Acquired absence of right foot; Z68.26 Body mass index [BMI] 26.0-26.9, adult; Y81.2 Prosthetic and other implants, materials and accessory general- and plastic-surgery devices associated with adverse incidents
CPT/HCPCS: 36415; 36558; 70450; 71010; 71020; 74020; 74176; 76705; 76937; 77001; 80048; 80053; 80171; 80177; 80202; 81001; 82042; 82150; 82550; 82728; 82945; 83036; 83540; 83550; 83605; 83615; 83690; 83735; 84100; 84132; 84157; 84484; 85025; 85610; 85730; 86704; 86705; 86706; 86850; 86900; 86901; 86920; 87040; 87070; 87086; 87205; 87340; 87502; 88304; 89050; 90935; 93005; 94760

== ENCOUNTER → 2016-10-23 | Outpatient (CLI) | payer MEDICARE, BC, OTHER ==
[2016-10-23 10:47] LABS: Basophils # (A) 0.1 k/uL (0-0.2); Basophils % (A) 2 %; CH 30.3; Eosinophils # (A) 0.4 k/uL (0-0.7); Eosinophils % (A) 7 %; HCT 34.8 % (39.0-53.0); HDW 2.96; HGB 10.8 gm/dL (13.0-17.5); Hypochromasia Slight; Luc % (Auto) 2; Lymphocytes # (A) 1.4 k/uL (1.0-4.8); Lymphocytes % (A) 24 %; MCH 29.5 pg (25.0-35.0); MCHC 31.1 g/dL (31.0-37.0); MCV 94.8 fL (80.0-100.0); Mean Platelet Volume 7.4; Monocytes # (A) 0.4 k/uL (0-1.0); Monocytes % (A) 7 %; Neutrophils # (A) 3.3 k/uL (1.3-7.7); Neutrophils % (A) 58 %; RBC 3.67 m/uL (4.30-5.90); RDW 13.6 % (11.5-15.5); WBC 5.6 k/uL (3.8-10.6); WBC (Perox) 5.45
[2016-10-23 11:05] LABS: ALT 36 U/L (21-72); AST 27 U/L (17-59); Alkaline Phosphatase 114 U/L (38-126); Anion Gap 13 mmol/L; Bilirubin, Delta 0.3 mg/dL (0.0-0.2); Blood Urea Nitrogen 60 mg/dL (9-20); Calcium 7.3 mg/dL (8.4-10.2); Carbon Dioxide 26 mmol/L (22-30); Chloride 97 mmol/L (98-107); Cholesterol 114 mg/dL (<200); GGT 50 U/L (15-73); LDH 601 U/L (313-618); Potassium 3.9 mmol/L (3.5-5.1); Sodium 136 mmol/L (137-145); Total Bilirubin 0.4 mg/dL (0.2-1.3); Total Protein 6.3 g/dL (6.3-8.2)
[2016-10-23 11:28] LABS: Non-African American GFR(MDRD) 6 (>60 ml/min/1.73 sqM)
[2016-10-23 11:34] LABS: Glucose 485 mg/dL (74-99)
[2016-10-23 11:35] LABS: Hepatitis B Surface Ag Index 0.07
[2016-10-23 11:40] LABS: Hepatitis B Core IgM Index 0.03
[2016-10-23 11:53] LABS: Hepatitis C Virus IgG Index 0.07
[2016-10-23 11:55] LABS: Hepatitis B Surface Antibody POSITIVE (Negative); Hepatitis C Virus IgG Ab Negative (Negative)
[2016-10-23 12:25] LABS: Hemoglobin A1C 10.4 % (4.2-6.1)
[2016-10-23 14:18] LABS: Prostate Specific Antigen 0.15 ng/mL (0.00-4.00)
[2016-10-23 16:43] LABS: Treponemal Ab Non-Reactive (Non-Reactive)
[2016-10-24 07:33] LABS: EBV - EA (IgG) <5.0 U/mL (<9.0)
[2016-10-24 07:51] LABS: HIV-1/HIV-2 Ab Screen NONREAC (NON REAC)
[2016-10-26 09:35] LABS: Hepatits C Virus RNA, Quant <12 IU/mL (<12); LOG HCV IU/mL <1.08 (<1.08)
== END | disposition home or self-care (01) ==
LOC: LABWHC1 10:22
PROVIDERS: ATTEND Surgery
DX: D53.9 Nutritional anemia, unspecified (principal); E11.65 Type 2 diabetes mellitus with hyperglycemia; N41.9 Inflammatory disease of prostate, unspecified; E78.00 Pure hypercholesterolemia, unspecified; B25.9 Cytomegaloviral disease, unspecified; B27.90 Infectious mononucleosis, unspecified without complication; K71.6 Toxic liver disease with hepatitis, not elsewhere classified; B17.10 Acute hepatitis C without hepatic coma; R68.89 Other general symptoms and signs; E80.7 Disorder of bilirubin metabolism, unspecified; Z11.59 Encounter for screening for other viral diseases; Z11.3 Encounter for screening for infections with a predominantly sexual mode of transmission; Z01.83 Encounter for blood typing; Z11.1 Encounter for screening for respiratory tuberculosis
CPT/HCPCS: 36415; 80053; 82248; 82465; 82977; 83036; 83615; 84153; 85025; 86480; 86644; 86663; 86704; 86705; 86706; 86780; 86803; 86850; 86900; 86901; 87340; 87389; 87522

== ENCOUNTER → 2016-10-29 | Outpatient (CLI) | payer MEDICARE, OTHER ==
--- NOTE | 2016-10-29 08:06 | US ---
EXAMINATION TYPE: US kidneys/renal and bladder DATE OF EXAM: 10/29/2016 7:20 AM COMPARISON: on PACS CLINICAL HISTORY: Acquired Cyst. Pain, patient states renal failure EXAM MEASUREMENTS: Right Kidney: 10.0 x 6.0 x 4.8 cm Left Kidney: 9.9 x 4.6 x 5.6 cm Right Kidney: wnl Left Kidney: wnl Bladder: moderately distended Bilateral Jets not seen Free fluid seen in RLQ There is no evidence for hydronephrosis at this point in time. No nephrolithiasis is seen. No mikel s are identified. The urinary bladder is anechoic. Bilateral ureteral jets are seen. IMPRESSION: 1. Free fluid is in the right lower quadrant. 2. Retroperitoneal ultrasound of the kidneys otherwise appears unremarkable.
== END ==
LOC: RADUSWWP 06:40
PROVIDERS: ATTEND Surgery
DX: N28.1 Cyst of kidney, acquired (principal)
CPT/HCPCS: 76770

== ENCOUNTER 2016-12-22 20:30 | Observation (INO) | payer MEDICARE, BC, OTHER ==
[2016-12-22] MEDS ORDERED: ASPIRIN 81 MG CHEW PO STA (21:14)
--- NOTE | 2016-12-22 21:22 | ED ---
Chest Pain HPI - General Chief Complaint: Chest Pain Stated Complaint: arm & chest pain Time Seen by Provider: 12/22/16 21:05 Source: patient Mode of arrival: wheelchair Limitations: no limitations - History of Present Illness MD Complaint: chest pain Onset/Timin -: hour(s) Onset: during rest Pain Location: right chest Pain Radiation: neck Severity: moderate Quality: aching Consistency: constant Improves With: nothing Worsens With: nothing Treatments Prior to Arrival: none - Related Data Home Medications Medication Instructions Recorded Confirmed Atorvastatin [Lipitor] 80 mg PO HS 04/08/15 12/22/16 Calcium Acetate [PhosLo] 1,334 mg PO TID-W/MEALS 04/08/15 12/22/16 Fluticasone Propionate [Flonase 2 spray EA NOSTRIL DAILY PRN 04/08/15 12/22/16 Allergy Relief] Folic Acid 1 mg PO DAILY 04/08/15 12/22/16 Folic Acid-Vit B Complex-Vit C 1 cap PO HS 04/08/15 12/22/16 [Nephrocaps] Gabapentin [Neurontin] 300 mg PO TID 04/08/15 12/22/16 Insulin Glargine [Lantus] 10 unit SQ HS 04/08/15 12/22/16 Levothyroxine Sodium [Synthroid] 25 mcg PO DAILY 04/08/15 12/22/16 Insulin Aspart [NovoLOG] See Protocol SQ AC-TID 05/21/15 12/22/16 levETIRAcetam [Keppra] 750 mg PO Q12HR 05/21/15 12/22/16 Amiodarone [Cordarone] 200 mg PO BID 01/20/16 12/22/16 Famotidine [Pepcid] 20 mg PO BID 01/20/16 12/22/16 Sevelamer [Renvela] 1,600 mg PO AC-TID 01/20/16 12/22/16 Wsnnuxfb-Etyclcmrzn-Ybkb Oint 1 applic TOPICAL DAILY 07/28/16 12/22/16 [Triple Antibiotic Ointment] Previous Rx's Medication Instructions Recorded Divalproex [Depakote] 250 mg PO TID #90 tablet. 08/14/16 Lactulose [Cephulac] 30 gm PO QID #400 ml 08/14/16 Sodium Bicarbonate Tab 1,300 mg PO BID tab 08/14/16 Tamsulosin [Flomax] 0.4 mg PO PC-SUPPER #30 cap.er.24h 08/14/16 Thiamine [Vitamin B-1] 100 mg PO DAILY@1200 #30 tab 08/14/16 Allergies Allergy/AdvReac Type Severity Reaction Status Date / Time No Known Allergies Allergy Verified 12/22/16 21:40 Review of Systems ROS Statement: Those systems with pertinent positive or pertinent negative responses have been documented in the HPI. ROS Other: All systems not noted in ROS Statement are negative. Constitutional: Denies: fever, chills Respiratory: Denies: cough, dyspnea, wheezes Cardiovascular: Reports: as per HPI, chest pain, edema (Chronic). Denies: palpitations, orthopnea, syncope Gastrointestinal: Denies: abdominal pain, nausea, vomiting, diarrhea Musculoskeletal: Denies: back pain Skin: Denies: rash Neurological: Denies: headache, weakness, numbness EKG Findings - EKG Results: EKG: interpreted by ERMGeorgette, sinus rhythm (Rate 82 bpm), normal axis, normal QRS - Blocks, [place], Hypertrophy, ST Abn: Repolarization changes or abnormalities: nonspecific abnormality, ST segment, and/or T wave, Q-T interval prolongation Past Medical History Past Medical History: Coronary Artery Disease (CAD), Diabetes Mellitus, Dialysis , Deep Vein Thrombosis (DVT), GERD/Reflux, Hyperlipidemia, Hypertension, Myocardial Infarction ([place]), Musculoskeletal Disorder, Renal Disease, Seizure Disorder Additional Past Medical History / Comment(s): Diabetic gastropathy, End stage renal disease currently on peritoneal dialysis , peripheral neuropathy, seizure disorder, compression fracture of the vertebral along with known history of this disease, blood clot from IV line in the upper extremity on the left, coronary artery disease, previous myocardial infarction, insulin- dependent diabetes mellitus, GE reflux, gastritis, chronic anemia, cataracts, currently on peritoneal dialysis, peripheral vascular disease with previous amputation involving a below-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 Last Myocardial Infarction Date:: 2012 History of Any Multi-Drug Resistant Organisms: MRSA Date of last positivie culture/infection: 04/08/15 MDRO Source:: Blood & Left Foot Past Surgical History: Orthopedic Surgery Additional Past Surgical History / Comment(s): amputation right toes, BKA right leg Oct. 2014, GEORGE CATARACTS,VITRECTOMY,GEORGE RETINAL SX Past Anesthesia/Blood Transfusion Reactions: No Reported Reaction Additional Past Anesthesia/Blood Transfusion Reaction / Comment(s): VERTIGO Past Psychological History: No Psychological Hx Reported Additional Psychological History / Comment(s): Single. Tobacco smoker. Denies significant alcohol or recreational drug use. Originally was from the [place] area and then moved down to [place]. Is now moved back to be with his family members in [place] since 2014. He has no experience. He denies any significant travel history. Brother has a pet dog in the home in which he lives. Relates that his 13-year-old daughter 2 years ago from suicide at the age of 13 Smoking Status: Never smoker Past Alcohol Use History: None Reported Past Drug Use History: None Reported - Past Family History Father Family Medical History: Cancer Additional Family Medical History / Comment(s): CANCER FROM [employer] Mother History Unknown: Yes Family Medical History: Cancer, Supraventricular Tachycardia (SVT) Additional Family Medical History / Comment(s): LUNG CANCER(SMOKER) General Exam Limitations: no limitations General appearance: alert, in no apparent distress Head exam: Present: atraumatic, normocephalic Eye exam: Present: normal appearance. Absent: scleral icterus, conjunctival injection ENT exam: Present: normal oropharynx Neck exam: Present: normal inspection, full ROM. Absent: tenderness, meningismus Respiratory exam: Present: normal lung sounds bilaterally. Absent: respiratory distress, wheezes, rales, rhonchi, stridor Cardiovascular Exam: Present: regular rate, normal rhythm, normal heart sounds. Absent: systolic murmur, diastolic murmur, rubs, gallop GI/Abdominal exam: Present: soft, other (Perineal dialysis catheter present was normal. No abdominal tenderness at all). Absent: distended, tenderness, guarding, rebound, mass Extremities exam: Present: normal inspection, normal capillary refill, pedal edema (There is right lower extremity edema, patient states this is chronic. Left below-knee"). Absent: calf tenderness Back exam: Present: normal inspection. Absent: CVA tenderness (R), CVA tenderness (L), vertebral tenderness Neurological exam: Present: alert Skin exam: Present: warm, dry, intact, normal color. Absent: rash Course Vital Signs 12/22/16 12/22/16 12/22/16 20:35 20:59 21:32 Temperature 97.4 F L 97.9 F Pulse Rate 82 76 78 Respiratory 18 18 18 Rate Blood Pressure 157/76 144/76 131/86 O2 Sat by Pulse 99 100 100 Oximetry 12/22/16 22:21 Temperature Pulse Rate 74 Respiratory 20 Rate Blood Pressure 124/72 O2 Sat by Pulse 100 Oximetry Disposition Clinical Impression: Atypical chest pain Disposition: ADMITTED IP TO THIS HOSP Condition: Fair Instructions: Chest Pain (ED) Referrals: Scott Aguilar Jr, [Primary Care Provider] - 1-2 days
[2016-12-22 21:36] LABS: Basophils # (A) 0.1 k/uL (0-0.2); Basophils % (A) 1 %; CH 30.5; Eosinophils # (A) 0.4 k/uL (0-0.7); Eosinophils % (A) 7 %; HCT 26.5 % (39.0-53.0); Luc # (Auto) 0.12; Luc % (Auto) 2; Lymphocytes # (A) 1.3 k/uL (1.0-4.8); Lymphocytes % (A) 23 %; MCH 29.2 pg (25.0-35.0); MCHC 32.4 g/dL (31.0-37.0); Mean Platelet Volume 7.6; Monocytes # (A) 0.4 k/uL (0-1.0); Monocytes % (A) 6 %; Neutrophils # (A) 3.3 k/uL (1.3-7.7); Neutrophils % (A) 60 %; RBC 2.95 m/uL (4.30-5.90); RDW 13.3 % (11.5-15.5); WBC 5.5 k/uL (3.8-10.6); WBC (Perox) 5.51
[2016-12-22 21:45] LABS: Calcium 7.6 mg/dL (8.4-10.2); Magnesium 1.8 mg/dL (1.6-2.3); Potassium 3.9 mmol/L (3.5-5.1); Total Bilirubin 0.4 mg/dL (0.2-1.3); Total Protein 5.9 g/dL (6.3-8.2)
[2016-12-22 21:46] LABS: HGB 8.6 gm/dL (13.0-17.5)
--- NOTE | 2016-12-22 21:52 | XR ---
EXAMINATION TYPE: XR chest 1V portable DATE OF EXAM: 12/22/2016 COMPARISON: 08/14/2016 HISTORY: Chest pain TECHNIQUE: Single frontal view of the chest is obtained. FINDINGS: There is no heart failure nor confluent pneumonic infiltrate. Costophrenic angles are mary r. There are no hilar masses. There are chest leads. IMPRESSION: No active cardiopulmonary disease. There is clearing of mild pulmonary congestion compar ed to old exam.
[2016-12-22 22:18] LABS: INR 0.9 (<1.1); Partial Thromboplastin Time 23.9 sec (22.0-30.0); Prothrombin Time 9.7 sec (9.0-12.0)
[2016-12-22] MEDS ORDERED: NITROGLYCERIN SL TABS 0.4 MG TAB SUBLINGUAL PRN (23:04)
[2016-12-22] MEDS ORDERED: FLUTICASONE 50MCG/SPRAY NASAL 16GM EA NOSTRIL PRN (23:07)
[2016-12-23] MEDS ORDERED: INSULIN GLARGINE 100 UNIT/ML 10 ML VIAL SQ ONE (00:57)
[2016-12-23] MEDS: INSULIN GLARGINE 100 UNIT/ML 10 ML VIAL SQ SCH ×2 (01:03→21:04)
[2016-12-23] MEDS: DIALYSIS (PERITONEAL) DEX 2.5% 2,500 ML INTRAPERIT SCH ×3 (01:30→11:43)
[2016-12-23 04:20] LABS: Creatine Kinase 226 U/L (55-170)
[2016-12-23 04:21] LABS: Cholesterol 89 mg/dL (<200); HDL Cholesterol 27 mg/dL (40-60); Triglycerides 145 mg/dL (<150)
[2016-12-23 04:32] LABS: Troponin I <0.012 ng/mL (0.000-0.034)
[2016-12-23 04:44] LABS: Creatine Kinase MB 4.2 ng/mL (0.0-2.4)
[2016-12-23] MEDS: LEVOTHYROXINE 25 MCG TAB PO SCH (06:44)
[2016-12-23] MEDS ORDERED: AMINOPHYLLINE 500 MG/20 ML VIAL IV PRN (07:28)
[2016-12-23] MEDS ORDERED: REGADENOSON 0.4 MG/5 ML SYRINGE IV ONE (07:28)
[2016-12-23 07:34] LABS: Glucose,Whole Blood 294 mg/dL (75-99)
[2016-12-23 07:50] LABS: Hemoglobin A1C 11.2 % (4.2-6.1)
[2016-12-23] MEDS ORDERED: FAMOTIDINE 20 MG TAB PO SCH (09:00)
[2016-12-23] MEDS ORDERED: AMIODARONE 200 MG TAB PO SCH ×2 (09:00)
[2016-12-23 09:02] LABS: Creatine Kinase 232 U/L (55-170)
[2016-12-23 09:14] LABS: Troponin I <0.012 ng/mL (0.000-0.034)
--- NOTE | 2016-12-23 11:04 | CONS ---
DATE OF CONSULTATION: Mr. Miles is a 45-year-old male with a history of end-stage renal disease on peritoneal dialysis, history of diabetes mellitus, who presented with right-sided chest discomfort, radiating up to the neck and to the right side of the face associated with some dizziness. He has been feeling more fatigued and tired recently. He has some dyspnea on exertion. His right foot is feeling cold to him more than usual. He is status post amputation below the knee on the left side for Charcot's disease. He has been on dialysis for 2 years. He denies any history of coronary artery disease. He was in the hospital in 2014 with abdominal pain, underwent surgery. At that time he had an episode of nonsustained ventricular tachycardia and has been started on amiodarone, but has not been followed since that time and he continues to be on the amiodarone. At that time his left ventricular systolic function by echocardiography was normal. His coronary risk factors as well for the history of diabetes, hyperlipidemia, he is nonsmoker. His medications at home include Keppra, Flomax, Renvela, Synthroid, insulin, Pepcid, Depakote, PhosLo, Lipitor 80 mg daily and amiodarone 200 mg twice a day. REVIEW OF SYSTEMS: RESPIRATORY SYSTEM: He has some dyspnea on exertion. No recent wheezing, cough. GI: He has no recent GI bleeding. No significant nausea. : He has end-stage renal disease on peritoneal dialysis. NERVOUS SYSTEM: No history of stroke. PHYSICAL EXAMINATION: A 45-year-old male, alert, appears older than stated age. In no acute distress. Blood pressure 122/70 with a heart rate in the 70s. HEAD: Normocephalic. EYES: Sclerae nonicteric. NECK: No bruit with transmitted murmur on the ( ) on the right side. LUNGS: Clear to auscultation. HEART: Regular rate rhythm. S1, S2, no S3, with a systolic ejection murmur 2/6 heard at the base, mid peaking. No diastolic murmur. ABDOMEN: Soft, peritoneal dialysis fluid noted. EXTREMITIES: Status post left BKA and 1+ edema on the left side with decreased pulses. Lab data revealed with BUN and creatinine 63 and 11.2. Potassium 3.9. Troponin less than 0.012 for 2 samples. Cholesterol of 89. Hemoglobin of 8.6, it was 8.8 in 2015. EKG revealed a sinus mechanism, normal axis and intervals, normal axis, mild prolongation of the QT interval with nonspecific ST-T wave changes. Chest x-ray shows no acute infiltrate. IMPRESSION: 1. Right-sided chest discomfort, has atypical feature for ischemic heart disease, appears to be musculoskeletal in etiology, reproducible by palpation in a patient with history of long-standing diabetes and hyperlipidemia. 2. History of end-stage renal disease on peritoneal dialysis. 3. Anemia of chronic disease. 4. Episode of ventricular tachycardia. The patient has been maintained on amiodarone now for about 1-1/2 years. The etiology of his arrhythmia is unclear to me. Patient has not had any followup with Cardiology since his discharge. He was seen by Dr. Warren initially. 5. History of diabetes mellitus. 6. Status post left [id number]-hakwzkfusp. 7. History of seizure. 8. Hyperlipidemia. RECOMMENDATION: I will cut down the amiodarone to 200 mg daily. I will obtain echocardiogram with Doppler and I will obtain a myocardial perfusion imaging. Depending on the results of the testing, further recommendation will be made. Thank you for this consult. Will follow with you.
[2016-12-23] MEDS: CALCIUM ACETATE 667 MG CAP PO SCH ×3 (11:21→17:40)
[2016-12-23] MEDS: SODIUM BICARBONATE TAB 650 MG TAB PO SCH ×2 (11:21→21:01)
[2016-12-23] MEDS: SEVELAMER 800 MG TAB PO SCH ×3 (11:21→17:40)
[2016-12-23] MEDS: LACTULOSE 20 GM/30 ML CUP PO SCH ×4 (11:22→21:05)
[2016-12-23] MEDS: FOLIC ACID 1 MG TAB PO SCH (11:22)
[2016-12-23] MEDS: DIVALPROEX 250 MG TABLET.DR PO SCH ×3 (11:22→22:26)
[2016-12-23] MEDS ORDERED: ONDANSETRON 4 MG/2 ML VIAL IVP PRN (11:36)
--- NOTE | 2016-12-23 11:43 | NM ---
EXAMINATION TYPE: NM stress lexiscan cardiolite DATE OF EXAM: 12/23/2016 COMPARISON: NONE HISTORY: TECHNIQUE: After the intravenous administration of 10.99 mCi Tc 99m Sestamibi - Cardiolite resting S PECT images acquired 45 minutes post injection. The patient received 0.4mg Lexiscan, 27.3 mCi Tc 99m Sestamibi - Stress images obtained [address] injection FINDINGS: Review of stress and rest SPECT images demonstrates no distinct perfusion abnormality. Gated analysi s shows normal wall motion with an estimated left ventricular ejection fraction of 43 %. IMPRESSION: No scintigraphic evidence for reversible ischemia.
--- NOTE | 2016-12-23 11:44 | ECHOF ---
Referral Reason:cp MEASUREMENTS -------- HEIGHT: 157.5 cm WEIGHT: 86.2 kg BP: 130/60 RVIDd: 2.8 cm (< 3.3) IVSd: 1.5 cm (0.6 - 1.1) LVIDd: 3.6 cm (3.9 - 5.3) LVPWd: 1.6 cm (0.6 - 1.1) IVSs: 1.8 cm LVIDs: 2.9 cm LVPWs: 1.9 cm LA Diam: 4.8 cm (2.7 - 3.8) LAESV Index (A-L): 38.58 ml/m Ao Diam: 3.4 cm (2.0 - 3.7) AV Cusp: 2.0 cm (1.5 - 2.6) LA Diam: 4.3 cm (2.7 - 3.8) MV EXCURSION: 16.226 mm (> 18.000) MV EF SLOPE: 66 mm/s (70 - 150) EPSS: 0.6 cm MV E Lino: 0.47 m/s MV DecT: 312 ms MV A Lino: 0.84 m/s MV E/A Ratio: 0.56 RAP: 5.00 mmHg RVSP: 27.06 mmHg FINDINGS -------- Sinus rhythm. This was a technically adequate study. There is mild concentric left ventricular hypertrophy. Overall left ventricular systolic function is low-normal with, an EF between 50 - 55 %. The right ventricle is normal in size. LA is moderately dilated 34-39 ml/m2 The right atrial size is normal. There is mild aortic valve sclerosis. There is no evidence of aortic regurgitation. Mild mitral annular calcification present. Mild mitral regurgitation is present. Mild tricuspid regurgitation present. There is no evidence of pulmonary hypertension. The right ventricular systolic pressure, as measured by Doppler, is 27.06mmHg. There is no pulmonic regurgitation present. The aortic root size is normal. There is no pericardial effusion. Moderate Pleural Effusion. CONCLUSIONS -------- 1. There is mild concentric left ventricular hypertrophy. 2. There is no pulmonic regurgitation present. 3. The aortic root size is normal. 4. Moderate Pleural Effusion. 5. Overall left ventricular systolic function is low-normal with, an EF between 50 - 55 %. 6. LA is moderately dilated 34-39 ml/m2 7. There is mild aortic valve sclerosis. 8. Mild mitral annular calcification present. 9. Mild mitral regurgitation is present. 10. Mild tricuspid regurgitation present. 11. There is no evidence of pulmonary hypertension. 12. The right ventricular systolic pressure, as measured by Doppler, is 27.06mmHg. CABLE RIGGER: Constanza Rodriguez RDCS
[2016-12-23 11:53] LABS: Glucose,Whole Blood 215 mg/dL (75-99)
[2016-12-23] MEDS ORDERED: THIAMINE 100 MG TAB PO SCH (12:00)
[2016-12-23] MEDS: GABAPENTIN 300 MG CAP PO SCH ×3 (12:44→22:26)
[2016-12-23] MEDS: INSULIN LISPRO (humaLOG) 300 UNIT/3 ML VIAL SQ SCH ×3 (12:45→21:04)
--- NOTE | 2016-12-23 12:53 | EST ---
DATE OF SERVICE: 12/23/2016 AGE: 45Y SEX: M HT: 5'11" WT: 190 lbs. Lexiscan Cardiolite Stress Test *Heart Rate Blood Pressure *Rest: 79 Rest: 163/95 * *Max. Achieved: 86 Maximum BP: 106/62 85% PMHR: 150 100% PMHR: 176 *METS: - INDICATIONS: - MEDICATIONS: - Patient was given Lexiscan injection over a period of 15 seconds. Peak heart rate of 86 was achieved. Maximum blood pressure of 106/62 mmHg was noted. Resting EKG shows normal sinus rhythm with normal NV interval and QRS duration and normal ST-T waves. No ST segment depression suggestive of ischemia is noted. The results of the nuclear study will follow.
--- NOTE | 2016-12-23 13:43 | P.HPIM ---
History of Present Illness H&P Date: 12/23/16 Chief Complaint: chest pain This a new patient to our practice who sees Dr Aguilar. He came in with Chest pain. He has ESRD on peritoneal Dialysis. He has uncontrolled diabetes and reportedly, is not compliant. He came emergency room with right-sided chest pain that may going on for several hours. He denies any shortness of breath, nausea, vomiting, or other symptoms. Review of Systems All systems: negative Past Medical History Past Medical History: Coronary Artery Disease (CAD), Diabetes Mellitus, Dialysis , Deep Vein Thrombosis (DVT), GERD/Reflux, Hyperlipidemia, Hypertension, Myocardial Infarction ([place]), Musculoskeletal Disorder, Renal Disease, Seizure Disorder Additional Past Medical History / Comment(s): Diabetic gastropathy, End stage renal disease currently on peritoneal dialysis , peripheral neuropathy, seizure disorder, compression fracture of the vertebral along with known history of this disease, blood clot from IV line in the upper extremity on the left, coronary artery disease, previous myocardial infarction, insulin- dependent diabetes mellitus, GE reflux, gastritis, chronic anemia, cataracts, currently on peritoneal dialysis, peripheral vascular disease with previous amputation involving a below-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 Last Myocardial Infarction Date:: 2012 History of Any Multi-Drug Resistant Organisms: MRSA Date of last positivie culture/infection: 04/08/15 MDRO Source:: Blood & Left Foot Past Surgical History: Orthopedic Surgery Additional Past Surgical History / Comment(s): amputation right toes, BKA right leg 2013, GEORGE CATARACTS,VITRECTOMY,GEORGE RETINAL SX Past Anesthesia/Blood Transfusion Reactions: No Reported Reaction Additional Past Anesthesia/Blood Transfusion Reaction / Comment(s): VERTIGO Past Psychological History: No Psychological Hx Reported Additional Psychological History / Comment(s): Single. Tobacco smoker. Denies significant alcohol or recreational drug use. Originally was from the [place] area and then moved down to [place]. Is now moved back to be with his family members in [place] since 2014. He has no experience. He denies any significant travel history. Brother has a pet dog in the home in which he lives. Relates that his 13-year-old daughter 2 years ago from suicide at the age of 13 Smoking Status: Never smoker Past Alcohol Use History: None Reported Past Drug Use History: None Reported - Past Family History Father Family Medical History: Cancer Additional Family Medical History / Comment(s): CANCER FROM AGENT [employer]ANGE Mother History Unknown: Yes Family Medical History: Cancer, Supraventricular Tachycardia (SVT) Additional Family Medical History / Comment(s): LUNG CANCER(SMOKER) Medications and Allergies Home Medications Medication Instructions Recorded Confirmed Type Atorvastatin [Lipitor] 80 mg PO HS 04/08/15 12/23/16 History Calcium Acetate [PhosLo] 1,334 mg PO TID-W/MEALS 04/08/15 12/23/16 History Fluticasone Propionate [Flonase 2 spray EA NOSTRIL DAILY PRN 04/08/15 12/23/16 History Allergy Relief] Folic Acid 1 mg PO DAILY 04/08/15 12/23/16 History Folic Acid-Vit B Complex-Vit C 1 cap PO HS 04/08/15 12/23/16 History [Nephrocaps] Gabapentin [Neurontin] 300 mg PO TID 04/08/15 12/23/16 History Insulin Glargine [Lantus] 10 unit SQ 04/08/15 12/23/16 History Levothyroxine Sodium [Synthroid] 25 mcg PO DAILY 04/08/15 12/23/16 History Insulin Aspart [NovoLOG] See Protocol SQ AC-TID 05/21/15 12/23/16 History levETIRAcetam [Keppra] 750 mg PO Q12HR 05/21/15 12/23/16 History Amiodarone [Cordarone] 200 mg PO BID 01/20/16 12/23/16 History Famotidine [Pepcid] 20 mg PO BID 01/20/16 12/23/16 History Sevelamer [Renvela] 1,600 mg PO AC-TID 01/20/16 12/23/16 History Tmndxzzx-Qnaoyqlixv-Odkq Oint 1 applic TOPICAL DAILY 07/28/16 12/23/16 History [Triple Antibiotic Ointment] Allergies Allergy/AdvReac Type Severity Reaction Status Date / Time No Known Allergies Allergy Verified 12/22/16 21:40 Physical Exam Vitals: Vital Signs Temp Pulse Pulse Resp BP BP Pulse Ox 12/23/16 08:11 98 12/23/16 04:00 98.2 F 78 18 128/79 92 L 12/23/16 00:56 98 F 80 18 160/87 100 12/23/16 00:00 98 F 76 18 160/87 100 12/22/16 23:43 98.5 F 78 18 155/74 100 12/22/16 22:21 74 20 124/72 100 12/22/16 21:32 78 18 131/86 100 12/22/16 20:59 97.9 F 76 18 144/76 100 12/22/16 20:35 97.4 F L 82 18 157/76 99 Intake and Output 12/22/16 12/23/16 12/23/16 22:59 06:59 14:59 Intake Total 300 Output Total 0 Balance 300 Intake: Amount of Fluid Infused ( 250 ml) Oral 50 Output: Urine 0 Other: Voiding Method Urinal CAPD Weight 86.183 kg 86.183 kg 86 kg Patient Weight 12/24/16 06:59 Weight 86 kg GENERAL: Well-appearing, well-nourished and in no acute distress. HEAD: Atraumatic, normocephalic. EYES: Pupils equal round and reactive to light, extraocular movements intact, sclera anicteric, conjunctiva are normal. ENT:nares patent, oropharynx clear without exudates. Moist mucous membranes. NECK: Normal range of motion, supple without lymphadenopathy or JVD, no thyromegaly LUNGS: Breath sounds clear to auscultation bilaterally and equal. No wheezes rales or rhonchi. HEART: Regular rate and rhythm without murmurs, rubs or gallops.S1S2 Normal ABDOMEN: Soft,left mid quadrant tenderness, normoactive bowel sounds. No guarding, no rebound. possible mass at the area of pain most likely hernia EXTREMITIES: on the right lower extremityNormal range of motion, no pitting or edema. No clubbing or cyanosis.the left lower extremity shows a BKA NEUROLOGICAL: Cranial nerves II through XII grossly intact. Normal speech, normal gait. PSYCH: Normal mood, normal affect. SKIN: Warm, Dry, normal turgor, no rashes or lesions noted. Results CBC & Chem 7: 12/22/16 20:59 12/22/16 20:59 Labs: Abnormal Lab Results - Last 24 Hours (Table) 12/22/16 12/22/16 12/23/16 Range/Units 20:59 20:59 03:26 RBC 2.95 L (4.30-5.90) m/uL Hgb 8.6 L D (13.0-17.5) gm/dL Hct 26.5 L (39.0-53.0) % Sodium 133 L (137-145) mmol/L BUN 63 H (9-20) mg/dL Creatinine 11.20 H* (0.66-1.25) mg/dL Glucose 293 H (74-99) mg/dL POC Glucose (mg/dL) (75-99) mg/dL Hemoglobin A1c (4.2-6.1) % Calcium 7.6 L (8.4-10.2) mg/dL Total Creatine Kinase 226 H (55-170) U/L CK-MB (CK-2) 4.2 H* (0.0-2.4) ng/mL Total Protein 5.9 L (6.3-8.2) g/dL Albumin 3.3 L (3.5-5.0) g/dL HDL Cholesterol (40-60) mg/dL 12/23/16 12/23/16 12/23/16 Range/Units 03:26 03:26 07:32 RBC (4.30-5.90) m/uL Hgb (13.0-17.5) gm/dL Hct (39.0-53.0) % Sodium (137-145) mmol/L BUN (9-20) mg/dL Creatinine (0.66-1.25) mg/dL Glucose (74-99) mg/dL POC Glucose (mg/dL) 294 H (75-99) mg/dL Hemoglobin A1c 11.2 H (4.2-6.1) % Calcium (8.4-10.2) mg/dL Total Creatine Kinase (55-170) U/L CK-MB (CK-2) (0.0-2.4) ng/mL Total Protein (6.3-8.2) g/dL Albumin (3.5-5.0) g/dL HDL Cholesterol 27 L (40-60) mg/dL Chest x-ray: report reviewed Thrombosis Risk Factor Assmnt - DVT/VTE Prophylaxis DVT/VTE Prophylaxis: Pharmacologic Prophylaxis ordered - Choose All That Apply Each Factor Represents 1 point: Age 41-60 years, Swollen legs (current) Each Risk Factor Represents 3 Points: History of DVT/PE Thrombosis Risk Factor Assessment Total Risk Factor Score: 5 Thrombosis Risk Factor Assessment Level: High Risk Assessment and Plan Plan: chest pain: consult cardiology, await their choice in testing, trop x 2 negative CAD: continue amiodarone, atorvastatin, hyperlipidemia: as above ESRD on peritoneal dialysis: consiult nephrology, continue treatments IDDM: continue lantus, add humalog scale seizure disorder: cont keppra, depakote, neuropathic paion: continue gabapentin BPH: cont flomax wait on weight loss sales consultant recommendations, cardiac testing, will reevaluate in the next 24 hours.
[2016-12-23] MEDS ORDERED: FUROSEMIDE 10 MG/ML 10 ML VIAL IV STA (14:03)
--- NOTE | 2016-12-23 15:20 | US ---
EXAMINATION TYPE: US chest DATE OF EXAM: 12/23/2016 COMPARISON: CLINICAL HISTORY: moderate plueral effusion. EXAM MEASUREMENTS: Right and left posterior chest scanned. No fluid seen as visualized. Pulmonologists are able to review the images in the patient?s EMR. IMPRESSIONS: No sizable pleural effusion.
[2016-12-23 17:05] LABS: Glucose,Whole Blood 167 mg/dL (75-99)
[2016-12-23] MEDS: DIALYSIS (PERITONL) DEX 4.25% 2,500 ML INTRAPERIT SCH ×2 (17:47→23:31)
[2016-12-23] MEDS ORDERED: TAMSULOSIN 0.4 MG CAP.ER.24H PO SCH (18:30)
[2016-12-23 20:49] LABS: Glucose,Whole Blood 221 mg/dL (75-99)
[2016-12-23] MEDS ORDERED: FOLIC ACID-VIT B COMPLEX-VIT C 1 CAP PO SCH (21:00)
[2016-12-23] MEDS ORDERED: DARBEPOETIN ALFA 40 MCG/0.4 ML SYRINGE SQ SCH (21:00)
[2016-12-23] MEDS ORDERED: ATORVASTATIN 80 MG TAB PO SCH (21:00)
--- NOTE | 2016-12-23 21:10 | CONS ---
DATE OF CONSULTATION: REASON FOR CONSULTATION: End-stage renal disease. HISTORY OF PRESENT ILLNESS: Patient is a 45-year-old male with a history of end-stage renal disease on peritoneal dialysis. He presented to the hospital with complaints of chest pain. Cardiac enzymes are negative. Patient also had a stress test, which was negative. His chest x-ray showed evidence of pleural effusion. Patient is volume overloaded with significantly increased weight above his dry weight. He denies any significant shortness of breath. He denies any abdominal pain at this time. PAST MEDICAL HISTORY: End-stage renal disease, anemia of chronic disease, secondary hyperparathyroidism/CKD, bone mineral disorder, hypertension, diabetes, hypothyroidism. Past medical history also includes: Coronary artery disease with history of myocardial infarction PAST SURGICAL HISTORY: Left BKA, PD catheter placement. SOCIAL HISTORY: Negative for smoking, drug abuse or alcohol abuse. Medications at home prior to admission included: 1. Lipitor. 2. PhosLo. 3. Flonase. 4. Folic acid. 5. Insulin. 6. Neurontin. 7. Synthroid. 8. Keppra. 9. Cordarone. 10. Pepcid. 11. Renvela. 12. Depakote. 13. Sodium bicarb. 14. Flomax. 15. Vitamin B. ALLERGIES: None. On examination, the patient is currently comfortable, awake. He is not in any acute distress. Blood pressure is 135/74, heart rate 72 per minute. He is afebrile. Examination of the heart S1 and S2. Examination of the lungs, bilateral breath sounds are heard. ABDOMEN: Soft, nontender. Examination of lower extremities shows edema 2+ bilaterally particularly in the right leg. Patient has left BKA. [employer] exam is grossly intact. Labs show sodium of 133, potassium 3.9. Hemoglobin was 8.6 g/dL, calcium 7.6. A1C was 11.2. ASSESSMENT: 1. End-stage renal disease on peritoneal dialysis. We will increase the PD exchanges to 4.25% solution q.6 hours, to increase ultrafiltration. 2. Volume overload. I will increase the UF using 4.25% solutions on the peritoneal dialysis. 3. Anemia of chronic disease. No active bleeding noted. Start patient on Aranesp. 4. Chronic kidney disease bone mineral disorder, maintained on PhosLo. PLAN: Increase UF and add Aranesp. Possible discharge tomorrow. Thank you for this consultation. We will continue to follow the patient with you during his hospitalization.
[2016-12-24 04:09] VITALS: TEMP 98
[2016-12-24] MEDS: LEVOTHYROXINE 25 MCG TAB PO SCH (06:18)
[2016-12-24] MEDS: DIALYSIS (PERITONL) DEX 4.25% 2,500 ML INTRAPERIT SCH (06:18)
[2016-12-24 06:55] LABS: Glucose,Whole Blood 191 mg/dL (75-99)
[2016-12-24 07:38] VITALS: BP 102/61; PULSE 80; RESP 16
--- NOTE | 2016-12-24 08:09 | PN ---
Mr. Miles is a 45-year-old male with end-stage renal disease on peritoneal dialysis, history of diabetes mellitus, who presented with symptoms of chest discomfort. He still has some discomfort on and off, not related to any physical activity. His breathing is better. He denies any dizziness or palpitation. He denies any nausea. He has underwent a myocardial perfusion imaging yesterday that revealed no evidence of inducible ischemia and his left ventricular systolic function by echocardiography was preserved. He continues to be at this time on Lipitor 80 mg daily, insulin, lactulose, Keppra. PHYSICAL EXAMINATION: Blood pressure 114/72 with a heart rate in the 70s. LUNGS: Clear. HEART: Regular rate and rhythm. S1, S2, no S3, no rub appreciated. ABDOMEN: With dialysis fluid noted. EXTREMITIES: Status post amputation on the left side. Lab data revealed troponin less than 0.012, history of TSH 4.09. IMPRESSION: 1. Chest discomfort with no evidence of inducible ischemia by nuclear scanning. 2. Prior history of ventricular tachycardia with no evidence of any recurrence. 3. History of diabetes. 4. End-stage renal disease on peritoneal dialysis. 5. Status post left below-knee amputation. 6. History of seizure. 7. History of hyperlipidemia. RECOMMENDATION: From the cardiac standpoint on the monitor, he has no evidence of any arrhythmia. In view of the absence of any recurrent arrhythmia, I will stop his amiodarone and follow him as an outpatient in that regard. I see no reason for further cardiac work-up at this point. If he has any recurrent symptoms, then coronary angiography may be needed.
[2016-12-24] MEDS: CALCIUM ACETATE 667 MG CAP PO SCH (08:23)
[2016-12-24] MEDS: SEVELAMER 800 MG TAB PO SCH (08:23)
[2016-12-24] MEDS: GABAPENTIN 300 MG CAP PO SCH (08:24)
[2016-12-24] MEDS: FOLIC ACID 1 MG TAB PO SCH (08:24)
[2016-12-24] MEDS: DIVALPROEX 250 MG TABLET.DR PO SCH (08:24)
[2016-12-24] MEDS: LACTULOSE 20 GM/30 ML CUP PO SCH (08:25)
[2016-12-24] MEDS: SODIUM BICARBONATE TAB 650 MG TAB PO SCH (08:25)
[2016-12-24] MEDS: INSULIN LISPRO (humaLOG) 300 UNIT/3 ML VIAL SQ SCH (08:28)
[2016-12-24] MEDS ORDERED: FAMOTIDINE 20 MG TAB PO SCH (09:00)
[2016-12-24 09:54] VITALS: BMI 26.9
--- NOTE | 2016-12-24 11:00 | P.DS ---
Providers Date of admission: 12/22/16 23:04 Expected date of discharge: 12/24/16 Attending physician: Kong Hough Consults: 12/22/16 23:04 Consult Physician Routine Consulting Provider: Bryce Mendoza Consult Reason/Comments: chest pain Do you want consulting provider notified?: Yes 12/23/16 00:58 Consult Physician Routine Consulting Provider: Yung Mann Consult Reason/Comments: CAPD Do you want consulting provider notified?: Yes, Notify in am Primary care physician: [facility] Course: Final diagnosis chest pain CAD hyperlipidemia ESRD on peritoneal dialysis IDDM seizure disorder neuropathic pain BPH This a new patient to our practice who sees Dr Aguilar. He came in with Chest pain. He has ESRD on peritoneal Dialysis. He has uncontrolled diabetes and reportedly, is not compliant. He came emergency room with right-sided chest pain that may going on for several hours. He denies any shortness of breath, nausea, vomiting, or other symptoms. Cardiology seen him and a stress test was performed and was negative. A 2-D echo showed questionable pleural effusion, ultrasound of the lungs were done which were negative for fluid. My discussions with Dr. Dillon indicated that he thought him IV fluid from his peritoneal dialysis pushing up into the chest coming appearing as a pleural effusion. Dr. Ovalles changed his dialysis solution as it was felt she did have fluid overload. Dr. Dillon discontinued his amiodarone and will plan on following up outpatient the office. He will need to see Dr. Ovalles in her office in the next week Patient Condition at Discharge: Fair Plan - Discharge Summary New Discharge Prescriptions: Continue Insulin Glargine [Lantus] 10 unit SQ HS Fluticasone Propionate [Flonase Allergy Relief] 2 spray EA NOSTRIL DAILY PRN PRN Reason: Allergy Symptoms Atorvastatin [Lipitor] 80 mg PO HS Calcium Acetate [PhosLo] 1,334 mg PO TID-W/MEALS Gabapentin [Neurontin] 300 mg PO TID Folic Acid 1 mg PO DAILY Folic Acid-Vit B Complex-Vit C [Nephrocaps] 1 cap PO HS Levothyroxine Sodium [Synthroid] 25 mcg PO DAILY levETIRAcetam [Keppra] 750 mg PO Q12HR Insulin Aspart [NovoLOG] See Protocol SQ AC-TID Sevelamer [Renvela] 1,600 mg PO AC-TID Famotidine [Pepcid] 20 mg PO BID Eyziuehv-Wzbavmutyw-Pnso Oint [Triple Antibiotic Ointment] 1 applic TOPICAL DAILY Divalproex [Depakote] 250 mg PO TID #90 tablet. Sodium Bicarbonate Tab 1,300 mg PO BID tab Tamsulosin [Flomax] 0.4 mg PO PC-SUPPER #30 cap.er.24h Thiamine [Vitamin B-1] 100 mg PO DAILY@1200 #30 tab Discontinued Amiodarone [Cordarone] 200 mg PO BID Discharge Medication List Atorvastatin [Lipitor] 80 mg PO HS 04/08/15 [History] Calcium Acetate [PhosLo] 1,334 mg PO TID-W/MEALS 04/08/15 [History] Fluticasone Propionate [Flonase Allergy Relief] 2 spray EA NOSTRIL DAILY PRN [History] Folic Acid 1 mg PO DAILY 04/08/15 [History] Folic Acid-Vit B Complex-Vit C [Nephrocaps] 1 cap PO HS 04/08/15 [History] Gabapentin [Neurontin] 300 mg PO TID 04/08/15 [History] Insulin Glargine [Lantus] 10 unit SQ HS 04/08/15 [History] Levothyroxine Sodium [Synthroid] 25 mcg PO DAILY 04/08/15 [History] Insulin Aspart [NovoLOG] See Protocol SQ AC-TID 05/21/15 [History] levETIRAcetam [Keppra] 750 mg PO Q12HR 05/21/15 [History] Famotidine [Pepcid] 20 mg PO BID 01/20/16 [History] Sevelamer [Renvela] 1,600 mg PO AC-TID 01/20/16 [History] Opislwef-Xkxrmrxhxw-Sblv Oint [Triple Antibiotic Ointment] 1 applic TOPICAL DAILY 07/28/16 [History] Divalproex [Depakote] 250 mg PO TID #90 tablet. 08/14/16 [Rx] Sodium Bicarbonate Tab 1,300 mg PO BID tab 08/14/16 [Rx] Tamsulosin [Flomax] 0.4 mg PO PC-SUPPER #30 cap.er.24h 08/14/16 [Rx] Thiamine [Vitamin B-1] 100 mg PO DAILY@1200 #30 tab 08/14/16 [Rx] Follow up Appointment(s)/Referral(s): Scott Aguilar Jr, [Primary Care Provider] - 1-2 days Wesley Dillon MD [STAFF PHYSICIAN] - 1 Week Vashti Ovalles MD [STAFF PHYSICIAN] - 1 Week Patient Instructions/Handouts: Chest Pain (ED) Discharge Disposition: HOME SELF-CARE
--- NOTE | 2016-12-24 19:07 | PN ---
The patient is seen for follow-up for end-stage renal disease. He was admitted to the hospital with chest pain. His cardiac enzymes have been negative. Cardiac stress test was negative as well. Patient noted to be fluid overloaded. He is maintained on 4.25% solution. He has had some degree of ultrafiltration, however, not a huge amount. Weight has actually gone up. Not sure if this is accurate. On examination, blood pressure is 102/61, heart rate 80 per minute. He is afebrile. Examination of the heart S1 and S2. Examination of the lungs: Bilateral breath sounds are heard. ABDOMEN: Soft, nontender, distended. Examination of lower extremities shows edema 2+. Patient has left BKA. ASSESSMENT: 1. End-stage renal disease on peritoneal dialysis. 2. Volume overload, maintained on 4.25% solutions. 3. Chest pain with negative cardiac enzymes and stress test. 4. Pleural effusion noted on chest x-ray as part of his overall fluid overload. PLAN: Patient can be discharged today. Needs to follow up as outpatient for dialysis. We need to continue to increase ultrafiltration with his dialysis. He does not make much urine. Therefore IV Lasix will not help much.
== END 2016-12-24 12:52 | disposition home or self-care (01) ==
LOC: EC 20:30 → 3OBS 23:04
PROVIDERS: ADMIT Family Medicine; ATTEND Family Medicine
DX: J90 Pleural effusion, not elsewhere classified (principal); I45.81 Long QT syndrome; K21.9 Gastro-esophageal reflux disease without esophagitis; I25.2 Old myocardial infarction; I25.10 Atherosclerotic heart disease of native coronary artery without angina pectoris; G40.909 Epilepsy, unspecified, not intractable, without status epilepticus; E78.5 Hyperlipidemia, unspecified; E11.22 Type 2 diabetes mellitus with diabetic chronic kidney disease; I12.0 Hypertensive chronic kidney disease with stage 5 chronic kidney disease or end stage renal disease; N18.6 End stage renal disease; F17.200 Nicotine dependence, unspecified, uncomplicated; D63.8 Anemia in other chronic diseases classified elsewhere; I47.2 Ventricular tachycardia; E11.65 Type 2 diabetes mellitus with hyperglycemia; N40.0 Benign prostatic hyperplasia without lower urinary tract symptoms; E11.610 Type 2 diabetes mellitus with diabetic neuropathic arthropathy; E03.9 Hypothyroidism, unspecified; E87.70 Fluid overload, unspecified; E11.42 Type 2 diabetes mellitus with diabetic polyneuropathy; E11.51 Type 2 diabetes mellitus with diabetic peripheral angiopathy without gangrene; Z79.899 Other long term (current) drug therapy; Z99.2 Dependence on renal dialysis; Z89.512 Acquired absence of left leg below knee; Z79.4 Long term (current) use of insulin; Z86.14 Personal history of Methicillin resistant Staphylococcus aureus infection
CPT/HCPCS: 96372; 96374; 96376; 99285; 36415; 93005; 93017; 93306; 85379; 80061; 80053; 84443; 83036; 82550; 82553; 83735; 84484 ×2; 85025; 85610; 85730; 71010; 76604; 78452; G0378 ×3; A9500; J1940; J2405; A4722 ×3; J2785; J0881

== ENCOUNTER 2017-02-08 09:44 | Emergency (ER) | payer MEDICARE, BC, OTHER ==
[2017-02-08 09:49] VITALS: TEMP 98.2
[2017-02-08] MEDS ORDERED: MORPHINE SULFATE 4 MG/ML SYRINGE IVP STA (10:07)
[2017-02-08] MEDS ORDERED: KETOROLAC 30 MG/ML 1 ML VIAL IVP STA (10:07)
--- NOTE | 2017-02-08 10:10 | ED ---
Upper Extremity HPI - General Chief Complaint: Extremity Injury, Upper Stated Complaint: rt shoulder pain Time Seen by Provider: 02/08/17 09:53 Source: patient Mode of arrival: wheelchair Limitations: no limitations - History of Present Illness Initial Comments: 46-year-old male with past medical history of CAD, DM, hemodialysis, DVT, HLD, HTN, [place], seizure disorder, BKA of the left leg presented for evaluation of right shoulder pain after a fall on Wednesday. He states that he was walking down a nation and tripped on a cord causing his right shoulder to hit the door jam. He denies any head trauma or loss of consciousness and further denies any anticoagulation use. He has not been taking any medications for his pain although he states it continues to worsen since the event. He states decreased range of motion specifically to the anterior aspect of the shoulder. There is decreased sensation in the hand but he denies any discoloration or limitations and motor function of the hand or fingers. - Related Data Home Medications Medication Instructions Recorded Confirmed Atorvastatin [Lipitor] 80 mg PO HS 04/08/15 02/08/17 Calcium Acetate [PhosLo] 1,334 mg PO TID-W/MEALS 04/08/15 02/08/17 Fluticasone Propionate [Flonase 2 spray EA NOSTRIL DAILY PRN 04/08/15 02/08/17 Allergy Relief] Folic Acid 1 mg PO DAILY 04/08/15 02/08/17 Folic Acid-Vit B Complex-Vit C 1 cap PO HS 04/08/15 02/08/17 [Nephrocaps] Gabapentin [Neurontin] 300 mg PO TID 04/08/15 02/08/17 Insulin Glargine [Lantus] 10 unit SQ HS 04/08/15 02/08/17 Levothyroxine Sodium [Synthroid] 25 mcg PO DAILY 04/08/15 02/08/17 Insulin Aspart [NovoLOG] See Protocol SQ AC-TID 05/21/15 02/08/17 levETIRAcetam [Keppra] 750 mg PO Q12HR 05/21/15 02/08/17 Famotidine [Pepcid] 20 mg PO BID 01/20/16 02/08/17 Sevelamer [Renvela] 1,600 mg PO AC-TID 01/20/16 02/08/17 Hhlpepsj-Dufmlwtkme-Azsv Oint 1 applic TOPICAL DAILY 07/28/16 02/08/17 [Triple Antibiotic Ointment] Previous Rx's Medication Instructions Recorded Divalproex [Depakote] 250 mg PO TID #90 tablet. 08/14/16 Sodium Bicarbonate Tab 1,300 mg PO BID tab 08/14/16 Tamsulosin [Flomax] 0.4 mg PO PC-SUPPER #30 cap.er.24h 08/14/16 Thiamine [Vitamin B-1] 100 mg PO DAILY@1200 #30 tab 08/14/16 HYDROcodone/APAP 5-325MG [[place] 1 - 2 tab PO Q6HR PRN #14 tab 02/08/17 5-325] Allergies Allergy/AdvReac Type Severity Reaction Status Date / Time No Known Allergies Allergy Verified 02/08/17 10:28 Review of Systems ROS Statement: Those systems with pertinent positive or pertinent negative responses have been documented in the HPI. ROS Other: All systems not noted in ROS Statement are negative. Constitutional: Denies: fever, chills Eyes: Denies: eye pain, vision change ENT: Denies: ear pain, throat pain Respiratory: Denies: cough, dyspnea Cardiovascular: Denies: chest pain, palpitations, dyspnea on exertion, syncope Endocrine: Denies: fatigue, polydipsia, polyuria Gastrointestinal: Denies: abdominal pain, nausea, vomiting Genitourinary: Denies: urgency, dysuria Musculoskeletal: Reports: arthralgia (Pain to anterior aspect of right shoulder) . Denies: back pain, myalgia Skin: Denies: rash, lesions Neurological: Reports: paresthesias (Right upper extremity). Denies: headache, weakness Psychiatric: Denies: anxiety, depression Hematological/Lymphatic: Denies: easy bleeding, easy bruising Past Medical History Past Medical History: Coronary Artery Disease (CAD), Diabetes Mellitus, Dialysis , Deep Vein Thrombosis (DVT), GERD/Reflux, Hyperlipidemia, Hypertension, Myocardial Infarction ([place]), Musculoskeletal Disorder, Renal Disease, Seizure Disorder Additional Past Medical History / Comment(s): Diabetic gastropathy, End stage renal disease currently on peritoneal dialysis , peripheral neuropathy, seizure disorder, compression fracture of the vertebral along with known history of this disease, blood clot from IV line in the upper extremity on the left, coronary artery disease, previous myocardial infarction, insulin- dependent diabetes mellitus, GE reflux, gastritis, chronic anemia, cataracts, currently on peritoneal dialysis, peripheral vascular disease with previous amputation involving a below-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 Last Myocardial Infarction Date:: 2012 History of Any Multi-Drug Resistant Organisms: MRSA Date of last positivie culture/infection: 04/08/15 MDRO Source:: Blood & Left Foot Past Surgical History: Orthopedic Surgery Additional Past Surgical History / Comment(s): amputation right toes, BKA right leg 2013, GEORGE CATARACTS,VITRECTOMY,GEORGE RETINAL SX Past Anesthesia/Blood Transfusion Reactions: No Reported Reaction Additional Past Anesthesia/Blood Transfusion Reaction / Comment(s): VERTIGO Past Psychological History: No Psychological Hx Reported Smoking Status: Never smoker Past Alcohol Use History: None Reported Past Drug Use History: None Reported - Past Family History Father Family Medical History: Cancer Additional Family Medical History / Comment(s): CANCER FROM [employer] [place] Mother History Unknown: Yes Family Medical History: Cancer, Supraventricular Tachycardia (SVT) Additional Family Medical History / Comment(s): LUNG CANCER(SMOKER) General Exam Limitations: no limitations General appearance: alert, in no apparent distress Head exam: Present: atraumatic, normocephalic, normal inspection Eye exam: Present: normal appearance, PERRL, EOMI. Absent: scleral icterus, conjunctival injection, periorbital swelling ENT exam: Present: normal exam, mucous membranes moist Neck exam: Present: normal inspection. Absent: tenderness, meningismus, lymphadenopathy Respiratory exam: Present: normal lung sounds bilaterally. Absent: respiratory distress, wheezes, rales, rhonchi, stridor Cardiovascular Exam: Present: regular rate, normal rhythm, normal heart sounds. Absent: systolic murmur, diastolic murmur, rubs, gallop, clicks GI/Abdominal exam: Present: soft, normal bowel sounds. Absent: distended, tenderness, guarding, rebound, rigid Rectal exam: Present: deferred Extremities exam: Present: tenderness, normal capillary refill, other ( Decreased range of motion with only about 30 abduction and flexion at the shoulder; right shoulder is slumped down however there is no noted deformity). Absent: pedal edema, joint swelling (Anterior aspect of right upper extremity) Back exam: Present: normal inspection Neurological exam: Present: alert, oriented X3, CN II-XII intact, other ( Sensation of the right hand intact as well as axillary nerve distribution to the right lateral shoulder) Psychiatric exam: Present: normal affect, normal mood Skin exam: Present: warm, dry, intact, normal color. Absent: rash Course Vital Signs 02/08/17 02/08/17 09:46 11:33 Temperature 98.2 F 98.2 F Pulse Rate 89 84 Respiratory 18 16 Rate Blood Pressure 139/84 129/76 O2 Sat by Pulse 98 98 Oximetry Medical Decision Making - Medical Decision Making 46-year-old male with significant past medical history presented for evaluation of mechanical fall from standing resulting in right shoulder injury. This occurred on Wednesday and has progressively worsened since. He has tried no medications for improvement in symptoms. He has decreased range of motion and states subjective decreased sensation however on physical examination sensation is intact distally at the hand as well as axillary nerve distribution to the right lateral shoulder. He has tenderness over the anterior aspect of the right shoulder with limited range of motion in abduction, flexion, and extension. Motor function to the distal hand at the wrist and fingers is intact and pulse is strong and within normal limits of rate. We'll obtain right shoulder x-ray and provide pain control. Xray showed no acute fracture. The patient was reevaluated and had improvement in symptoms. He was informed of results and through shared decision making it was determined that he would be discharged with orthopedic surgery referral and instructions to follow-up with his primary care physician. He was given return instructions as well. The patient acknowledged an understanding of this information and agreed with this plan of care. He was given a sling and exercise instructions as well. Disposition Clinical Impression: Right shoulder injury, Decreased range of motion (ROM) of shoulder Disposition: HOME SELF-CARE Condition: Stable Instructions: Rotator Cuff Injury (ED), Splint Care (ED), Shoulder Sprain (ED) , Exercises for Shoulder Flexion and Extension (ED), Exercises for Shoulder Abduction and Adduction (ED) Additional Instructions: Please use medication as discussed. Please follow up with family doctor if symptoms have not improved over the next two days. Please return to the emergency room if your symptoms increase or worsen or for any other concerns. Prescriptions: HYDROcodone/APAP 5-325MG [[place] 5-325] 1 - 2 tab PO Q6HR PRN #14 tab PRN Reason: Analgesia Referrals: Scott Aguilar JrDO [Primary Care Provider] - 1-2 days Time of Disposition: 11:25
--- NOTE | 2017-02-08 10:23 | XR ---
EXAMINATION TYPE: XR shoulder complete RT DATE OF EXAM: 02/08/2017 CLINICAL HISTORY: Pain since fall injury 2 days ago. TECHNIQUE: Three views of the right shoulder are obtained. COMPARISON: None. FINDINGS: There is no acute fracture/dislocation evident in the right shoulder. The acromioclavicul ar and glenohumeral joint spaces appear within normal limits. The visualized ribs are intact and unr emarkable. IMPRESSION: There is no acute fracture or dislocation in the right shoulder.
[2017-02-08 11:34] VITALS: BP 129/76; PULSE 84; RESP 16
== END 2017-02-08 11:39 | disposition home or self-care (01) ==
LOC: EC 09:44
DX: S49.91XA Unspecified injury of right shoulder and upper arm, initial encounter (principal); I25.10 Atherosclerotic heart disease of native coronary artery without angina pectoris; E11.22 Type 2 diabetes mellitus with diabetic chronic kidney disease; I12.0 Hypertensive chronic kidney disease with stage 5 chronic kidney disease or end stage renal disease; N18.6 End stage renal disease; E78.5 Hyperlipidemia, unspecified; I25.2 Old myocardial infarction; E11.40 Type 2 diabetes mellitus with diabetic neuropathy, unspecified; G40.909 Epilepsy, unspecified, not intractable, without status epilepticus; Z99.2 Dependence on renal dialysis; Z79.4 Long term (current) use of insulin; Z79.899 Other long term (current) drug therapy; W01.198A Fall on same level from slipping, tripping and stumbling with subsequent striking against other object, initial encounter; Y93.01 Activity, walking, marching and hiking
CPT/HCPCS: 99283; 96374; 73030; J2270

== ENCOUNTER 2017-05-20 19:20 | Inpatient (IN) | payer MEDICARE, BC, OTHER ==
[2017-05-20] MEDS ORDERED: HYDROmorphone 1 MG/ML 1 ML SYRINGE IVP STA (20:15)
[2017-05-20] MEDS ORDERED: SODIUM CHLORIDE 0.9% 1,000 ML IV STA (20:15)
[2017-05-20] MEDS ORDERED: ONDANSETRON 4 MG/2 ML VIAL IVP STA ×3 (20:15→23:55)
[2017-05-20] MEDS ORDERED: cefTRIAXone IN SWFI 1,000 MG/10 ML SYRINGE IVP ONE (20:30)
[2017-05-20 20:58] LABS: Basophils # (A) 0.1 k/uL (0-0.2); Basophils % (A) 0 %; CH 27.6; CHCM 31.6; Eosinophils # (A) 0.3 k/uL (0-0.7); Eosinophils % (A) 2 %; HCT 41.1 % (39.0-53.0); HGB 12.7 gm/dL (13.0-17.5); Hypochromasia Slight; Luc # (Auto) 0.11; Luc % (Auto) 1; Lymphocytes # (A) 1.2 k/uL (1.0-4.8); Lymphocytes % (A) 10 %; MCHC 30.9 g/dL (31.0-37.0); MCV 87.3 fL (80.0-100.0); Mean Platelet Volume 7.5; Monocytes # (A) 0.8 k/uL (0-1.0); Monocytes % (A) 7 %; Neutrophils % (A) 80 %; RBC 4.71 m/uL (4.30-5.90); RDW 15.8 % (11.5-15.5); WBC 11.4 k/uL (3.8-10.6); WBC (Perox) 11.59
[2017-05-20 21:11] LABS: RBC, Body Fluid 120 /uL
[2017-05-20 21:15] LABS: Anion Gap 11 mmol/L; Blood Urea Nitrogen 53 mg/dL (9-20); Carbon Dioxide 27 mmol/L (22-30); Chloride 101 mmol/L (98-107); Glucose 184 mg/dL (74-99); Potassium 3.4 mmol/L (3.5-5.1); Sodium 139 mmol/L (137-145)
--- NOTE | 2017-05-20 21:15 | ED ---
Abdominal Pain HPI - General Source: patient, RN notes reviewed, old records reviewed Mode of arrival: wheelchair Limitations: no limitations <Lily Rushing - Last Filed: 05/21/17 00:23> <Maxwell Navarro - Last Filed: 05/31/17 21:21> - General Chief Complaint: Abdominal Pain Stated Complaint: Abd Pain Time Seen by Provider: 05/20/17 20:03 - History of Present Illness Initial Comments: patient is a 46-year-old male with history apparently on dialysis presents emergency Department chief complaint of diffuse abdominal pain, and cloudy peritoneal fluid. Patient reports that his gold prospector told him to complete. Serial dialysis 4 times a day. She reports that over the past 2 days he called her due to increased pain. He reports he was sent in here after he told his provider that he's been having some cloudy fluid in the drainage. Patient states that he has had chills. A few episodes of vomiting, as well as diarrhea. Patient reports that the pain radiates from his her lower abdomen up to his chest. He denies any specific shortness of breath. (Lily Rushing) - Related Data Home Medications Medication Instructions Recorded Confirmed Atorvastatin [Lipitor] 80 mg PO HS 04/08/15 05/21/17 Calcium Acetate [PhosLo] 667 mg PO TID-W/MEALS 04/08/15 05/21/17 Gabapentin [Neurontin] 300 mg PO TID 04/08/15 05/21/17 Insulin Glargine [Lantus] 10 unit SQ HS 04/08/15 05/21/17 Levothyroxine Sodium [Synthroid] 25 mcg PO DAILY 04/08/15 05/21/17 Insulin Aspart [NovoLOG See Protocol SQ AC-TID 05/21/15 05/21/17 (formulary)] levETIRAcetam [Keppra] 750 mg PO Q12HR 05/21/15 05/21/17 Famotidine [Pepcid] 20 mg PO BID 01/20/16 05/21/17 Sevelamer [Renvela] 1,600 mg PO AC-TID 01/20/16 05/21/17 Amiodarone [Cordarone] 200 mg PO BID 05/20/17 05/21/17 Divalproex Sodium [Depakote] 500 mg PO TID 05/20/17 05/21/17 Dilcia Jordan 1 tab PO DAILY 05/20/17 05/21/17 Sildenafil Citrate [Viagra] 100 mg PO ONCE PRN 05/20/17 05/20/17 Tamsulosin [Flomax] 0.8 mg PO PC-SUPPER 05/20/17 05/21/17 Thiamine [Vitamin B-1] 100 mg PO DAILY 05/20/17 05/21/17 acetaZOLAMIDE [Diamox] 125 mg PO BID 05/20/17 05/21/17 amLODIPine [Norvasc] 10 mg PO DAILY 05/20/17 05/21/17 Allergies Allergy/AdvReac Type Severity Reaction Status Date / Time No Known Allergies Allergy Verified 05/20/17 20:11 Review of Systems ROS Other: All systems not noted in ROS Statement are negative. <Lily Rushing - Last Filed: 05/21/17 00:23> ROS Other: All systems not noted in ROS Statement are negative. <Maxwell Navarro - Last Filed: 05/31/17 21:21> ROS Statement: Those systems with pertinent positive or pertinent negative responses have been documented in the HPI. Past Medical History Past Medical History: Coronary Artery Disease (CAD), Diabetes Mellitus, Dialysis , Deep Vein Thrombosis (DVT), GERD/Reflux, Hyperlipidemia, Hypertension, Myocardial Infarction ([place]), Musculoskeletal Disorder, Renal Disease, Seizure Disorder Additional Past Medical History / Comment(s): Diabetic gastropathy, End stage renal disease currently on peritoneal dialysis , peripheral neuropathy, seizure disorder, compression fracture of the vertebral along with known history of this disease, blood clot from IV line in the upper extremity on the left, coronary artery disease, previous myocardial infarction, insulin- dependent diabetes mellitus, GE reflux, gastritis, chronic anemia, cataracts, currently on peritoneal dialysis, peripheral vascular disease with previous amputation involving a below-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 Last Myocardial Infarction Date:: 2012 History of Any Multi-Drug Resistant Organisms: MRSA Date of last positivie culture/infection: 04/08/15 MDRO Source:: Blood & Left Foot Past Surgical History: Orthopedic Surgery Additional Past Surgical History / Comment(s): amputation right toes, BKA right leg 2013, GEORGE CATARACTS,VITRECTOMY,GEORGE RETINAL SX Past Anesthesia/Blood Transfusion Reactions: No Reported Reaction Additional Past Anesthesia/Blood Transfusion Reaction / Comment(s): VERTIGO Past Psychological History: No Psychological Hx Reported Smoking Status: Never smoker Past Alcohol Use History: None Reported Past Drug Use History: None Reported - Past Family History Father Family Medical History: Cancer Additional Family Medical History / Comment(s): CANCER FROM [employer] Mother History Unknown: Yes Family Medical History: Cancer, Supraventricular Tachycardia (SVT) Additional Family Medical History / Comment(s): LUNG CANCER(SMOKER) <Lily Rushing - Last Filed: 05/21/17 00:23> General Exam Limitations: no limitations General appearance: alert, in no apparent distress Head exam: Present: atraumatic, normocephalic, normal inspection Eye exam: Present: normal appearance, PERRL, EOMI. Absent: scleral icterus, conjunctival injection, periorbital swelling ENT exam: Present: normal exam, mucous membranes moist Neck exam: Present: normal inspection. Absent: tenderness, meningismus, lymphadenopathy Respiratory exam: Present: normal lung sounds bilaterally. Absent: respiratory distress, wheezes, rales, rhonchi, stridor Cardiovascular Exam: Present: regular rate, normal rhythm, normal heart sounds. Absent: systolic murmur, diastolic murmur, rubs, gallop, clicks GI/Abdominal exam: Present: tenderness, normal bowel sounds, other (evidence of peritoneal dialysis site.). Absent: soft (patient is diffuse abdominal tenderness.), distended, guarding, rebound, rigid Extremities exam: Present: normal inspection, full ROM, normal capillary refill , other (Previous amputation of the left leg belowe the knee, and right partial foot amputation.). Absent: tenderness, pedal edema, joint swelling, calf tenderness Back exam: Present: normal inspection Neurological exam: Present: alert, oriented X3, CN II-XII intact Psychiatric exam: Present: normal affect, normal mood Skin exam: Present: warm, dry, intact, normal color. Absent: rash <Lily Rushing - Last Filed: 05/21/17 00:23> <Maxwell Navarro - Last Filed: 05/31/17 21:21> - General Exam Comments Initial Comments: 46-year-old male. Patient appears to be in some discomfort. Patient is icteric. (Lily Rushing) Course <Lily Rushing - Last Filed: 05/21/17 00:23> <Maxwell Navarro - Last Filed: 05/31/17 21:21> Vital Signs 05/20/17 05/20/17 05/20/17 19:25 20:44 22:24 Temperature 98.6 F 98.7 F Pulse Rate 88 83 76 Respiratory 16 18 18 Rate Blood Pressure 135/81 138/77 105/62 O2 Sat by Pulse 99 96 95 Oximetry 05/20/17 05/20/17 05/21/17 23:28 23:58 00:10 Temperature 98.4 F Pulse Rate 76 76 76 Respiratory 18 16 18 Rate Blood Pressure 102/62 161/86 135/65 O2 Sat by Pulse 94 L 100 100 Oximetry 05/21/17 00:45 Temperature Pulse Rate 81 Respiratory 16 Rate Blood Pressure 104/63 O2 Sat by Pulse 99 Oximetry - Reevaluation(s) Reevaluation #1: 05/20/17 23:50 Approximately a little 2340 and went to check on the patient and tell him where his room assignment was. Upon entering the room and noticed his lips were blue , was not responding. He it was difficult to feel a pulse. I started CPR. Staff emergency was called. Was noted patient did start to have a pulse, respirations were diminished. It was told the patient recently received pain medication. Patient was given 4 mg of Narcan, and was revived. When I did start to sternal rub the patient for arousal I do believe there is possibility of rib fracture. Chest x-ray will be ordered. At this time patient is actively vomiting. Zofran ordered. He is alert. AT this time I will discontinue IV pain medication. (Lily Rushing) Medical Decision Making - Lab Data Result diagrams: 05/20/17 20:35 05/20/17 20:35 - Radiology Data Radiology results: report reviewed <Lily Rushing - Last Filed: 05/21/17 00:23> - Lab Data Result diagrams: 05/30/17 07:52 05/31/17 07:25 <Maxwell Navarro - Last Filed: 05/31/17 21:21> - Medical Decision Making 44-year-old male with history of peritoneal dialysis presents with due to increased abdominal pain, and cloudy peritoneal fluid. He is concerned for infection. He did bring a sample of his peritoneal fluid,this will be tested for cultures and cell count. Patient was then started on empiric antibiotic of Rocephin and VAncomycin. Patient has Leukocytosis with white blood cell count of 11.4 with left shift and 0.0. Patient also has significantly elevated BUN/ creatinine, BUN of 53 and creatinine of 12.04. This we consistent of chronic renal failure. Patient has a negative troponin. Patient's dialysis fluid to show #1500 nucleated cells, polynuclear WBC 91. patient's chest x-ray does show evidence of bilateral infiltrates, KUB also shows evidence of small pneumoperitoneum, however this seems to be related to his dialysis port. Patient was given IV fluids, and pain medication. Patient will be admitted for arterial peritonitis related to his dialysis port.Dr. Navarro discussed this with patient's primary care physician Dr. Hough. We will also consult patient's gold prospector Dr. Mann. At approximately 1140 I did reevaluate the patient. This was approximately 10 minutes after receiving IV pain medication. Patient was blue lips, apneic and unresponsive. I started CPR. Patient was found to have a pulse, and wheeze the Ambu bag to ventilate the patient. Narcan was given. Afterwards patient became alert and oriented. He did have an episode of vomiting. Patient is remained stable since the Narcan administration. This I will put the patient on selective care unit. We will discontinue the IV pain medication.discussed this with Dr. Navarro. (Lily Rushing) I saw this patient in conjunction with the physician behavioral assistant. I performed independent history and physical exam. Agree with case management. (Maxwell Navarro) - Lab Data Lab Results 05/20/17 05/20/17 05/20/17 Range/Units 20:31 20:31 20:31 WBC (3.8-10.6) k/uL RBC (4.30-5.90) m/uL Hgb (13.0-17.5) gm/dL Hct (39.0-53.0) % MCV (80.0-100.0) fL MCH (25.0-35.0) pg MCHC (31.0-37.0) g/dL RDW (11.5-15.5) % Plt Count (150-450) k/uL Neutrophils % % Lymphocytes % % Monocytes % % Eosinophils % % Basophils % % Neutrophils # (1.3-7.7) k/uL Lymphocytes # (1.0-4.8) k/uL Monocytes # (0-1.0) k/uL Eosinophils # (0-0.7) k/uL Basophils # (0-0.2) k/uL Hypochromasia Sodium (137-145) mmol/L Potassium (3.5-5.1) mmol/L Chloride (98-107) mmol/L Carbon Dioxide (22-30) mmol/L Anion Gap mmol/L BUN (9-20) mg/dL Creatinine (0.66-1.25) mg/dL Est GFR (MDRD) Af Amer (>60 ml/min/1.73 sqM) Est GFR (MDRD) Non-Af (>60 ml/min/1.73 sqM) Glucose (74-99) mg/dL Plasma Lactic Acid Massimo (0.7-2.0) mmol/L Calcium (8.4-10.2) mg/dL Total Bilirubin (0.2-1.3) mg/dL AST (17-59) U/L ALT (21-72) U/L Alkaline Phosphatase (38-126) U/L Troponin I (0.000-0.034) ng/mL Total Protein (6.3-8.2) g/dL Albumin (3.5-5.0) g/dL Amylase (30-110) U/L Lipase (23-300) U/L Urine Color Yellow Urine Appearance Clear (Clear) Urine pH 6.5 (5.0-8.0) Ur Specific Stuart 1.014 (1.001-1.035) Urine Protein 3+ H (Negative) Urine Glucose (UA) 3+ H (Negative) Urine Ketones Negative (Negative) Urine Blood Small H (Negative) Urine Nitrite Negative (Negative) Urine Bilirubin Negative (Negative) Urine Urobilinogen 2.0 (<2.0) mg/dL Ur Leukocyte Esterase Negative (Negative) Urine RBC 3 (0-5) /hpf Urine WBC 2 (0-5) /hpf Ur Squamous Epith Cells 2 (0-4) /hpf Urine Bacteria Rare H (None) /hpf Urine Mucus Rare H (None) /hpf Fluid Source Dialysate Fluid Appearance Cloudy Fluid RBC 120 /uL Fluid Nucleated Cells 1500 /uL Fluid Polynuclear WBCs 91 % Fluid Mononuclear WBCs 9 % Body Fluid Glucose Source Peritoneal Fluid Fluid Glucose 928 mg/dL Body Fluid Protein Source Fluid Total Protein mg/dL Body Fluid LDH Source Fluid LDH U/L 05/20/17 05/20/17 05/20/17 Range/Units 20:31 20:31 20:35 WBC (3.8-10.6) k/uL RBC (4.30-5.90) m/uL Hgb (13.0-17.5) gm/dL Hct (39.0-53.0) % MCV (80.0-100.0) fL MCH (25.0-35.0) pg MCHC (31.0-37.0) g/dL RDW (11.5-15.5) % Plt Count (150-450) k/uL Neutrophils % % Lymphocytes % % Monocytes % % Eosinophils % % Basophils % % Neutrophils # (1.3-7.7) k/uL Lymphocytes # (1.0-4.8) k/uL Monocytes # (0-1.0) k/uL Eosinophils # (0-0.7) k/uL Basophils # (0-0.2) k/uL Hypochromasia Sodium 139 (137-145) mmol/L Potassium 3.4 L (3.5-5.1) mmol/L Chloride 101 (98-107) mmol/L Carbon Dioxide 27 (22-30) mmol/L Anion Gap 11 mmol/L BUN 53 H (9-20) mg/dL Creatinine 12.04 H* (0.66-1.25) mg/dL Est GFR (MDRD) Af Amer 6 (>60 ml/min/1.73 sqM) Est GFR (MDRD) Non-Af 5 (>60 ml/min/1.73 sqM) Glucose 184 H (74-99) mg/dL Plasma Lactic Acid Massimo (0.7-2.0) mmol/L Calcium 8.0 L (8.4-10.2) mg/dL Total Bilirubin 0.5 (0.2-1.3) mg/dL AST 15 L (17-59) U/L ALT 27 (21-72) U/L Alkaline Phosphatase 84 (38-126) U/L Troponin I (0.000-0.034) ng/mL Total Protein 5.9 L (6.3-8.2) g/dL Albumin 3.0 L (3.5-5.0) g/dL Amylase <30 L (30-110) U/L Lipase 21 L (23-300) U/L Urine Color Urine Appearance (Clear) Urine pH (5.0-8.0) Ur Specific Stuart (1.001-1.035) Urine Protein (Negative) Urine Glucose (UA) (Negative) Urine Ketones (Negative) Urine Blood (Negative) Urine Nitrite (Negative) Urine Bilirubin (Negative) Urine Urobilinogen (<2.0) mg/dL Ur Leukocyte Esterase (Negative) Urine RBC (0-5) /hpf Urine WBC (0-5) /hpf Ur Squamous Epith Cells (0-4) /hpf Urine Bacteria (None) /hpf Urine Mucus (None) /hpf Fluid Source Fluid Appearance Fluid RBC /uL Fluid Nucleated Cells /uL Fluid Polynuclear WBCs % Fluid Mononuclear WBCs % Body Fluid Glucose Source Fluid Glucose mg/dL Body Fluid Protein Source Peritoneal Fluid Fluid Total Protein 273.0 mg/dL Body Fluid LDH Source Peritoneal Fluid Fluid LDH 81 U/L 05/20/17 05/20/17 05/20/17 Range/Units 20:35 20:35 20:35 WBC 11.4 H (3.8-10.6) k/uL RBC 4.71 (4.30-5.90) m/uL Hgb 12.7 L (13.0-17.5) gm/dL Hct 41.1 (39.0-53.0) % MCV 87.3 (80.0-100.0) fL MCH 27.0 (25.0-35.0) pg MCHC 30.9 L (31.0-37.0) g/dL RDW 15.8 H (11.5-15.5) % Plt Count 176 (150-450) k/uL Neutrophils % 80 % Lymphocytes % 10 % Monocytes % 7 % Eosinophils % 2 % Basophils % 0 % Neutrophils # 9.0 H (1.3-7.7) k/uL Lymphocytes # 1.2 (1.0-4.8) k/uL Monocytes # 0.8 (0-1.0) k/uL Eosinophils # 0.3 (0-0.7) k/uL Basophils # 0.1 (0-0.2) k/uL Hypochromasia Slight Sodium (137-145) mmol/L Potassium (3.5-5.1) mmol/L Chloride (98-107) mmol/L Carbon Dioxide (22-30) mmol/L Anion Gap mmol/L BUN (9-20) mg/dL Creatinine (0.66-1.25) mg/dL Est GFR (MDRD) Af Amer (>60 ml/min/1.73 sqM) Est GFR (MDRD) Non-Af (>60 ml/min/1.73 sqM) Glucose (74-99) mg/dL Plasma Lactic Acid Massimo 1.3 (0.7-2.0) mmol/L Calcium (8.4-10.2) mg/dL Total Bilirubin (0.2-1.3) mg/dL AST (17-59) U/L ALT (21-72) U/L Alkaline Phosphatase (38-126) U/L Troponin I <0.012 (0.000-0.034) ng/mL Total Protein (6.3-8.2) g/dL Albumin (3.5-5.0) g/dL Amylase (30-110) U/L Lipase (23-300) U/L Urine Color Urine Appearance (Clear) Urine pH (5.0-8.0) Ur Specific Stuart (1.001-1.035) Urine Protein (Negative) Urine Glucose (UA) (Negative) Urine Ketones (Negative) Urine Blood (Negative) Urine Nitrite (Negative) Urine Bilirubin (Negative) Urine Urobilinogen (<2.0) mg/dL Ur Leukocyte Esterase (Negative) Urine RBC (0-5) /hpf Urine WBC (0-5) /hpf Ur Squamous Epith Cells (0-4) /hpf Urine Bacteria (None) /hpf Urine Mucus (None) /hpf Fluid Source Fluid Appearance Fluid RBC /uL Fluid Nucleated Cells /uL Fluid Polynuclear WBCs % Fluid Mononuclear WBCs % Body Fluid Glucose Source Fluid Glucose mg/dL Body Fluid Protein Source Fluid Total Protein mg/dL Body Fluid LDH Source Fluid LDH U/L 05/21/17 00:21 EKG performed at 2048 shows sinus rhythm. Nonspecific T-wave abnormality. Prolonged QT. Ventricular rate 76 bpm. SD interval 1906. Frustration 108 ms. QT QTc is 420/41 ms. (Lily Rushing) - Radiology Data No heart failure, new bilateral pulmonary interstitial infiltrates compared to previous exam. Small evidence of pneumoperitoneum. KUB shows evidence of small no apparent him lately related to dialysis port. ( Lily Rushing) Disposition Time of Disposition: 22:59 <Lily Rushing - Last Filed: 05/21/17 00:23> <Maxwell Navarro - Last Filed: 05/31/17 21:21> Clinical Impression: Peritonitis due to infected peritoneal dialysis catheter, Chronic renal failure , Diabetes mellitus, Bilateral pulmonary infiltrates on chest x-ray Disposition: ADMITTED IP TO THIS HOSP Condition: Stable
[2017-05-20 21:16] LABS: Appearance,Urine Clear (Clear); Bacteria,Urine Rare /hpf; Bilirubin,Urine Negative (Negative); Glucose,Urine (UA) 3+ (Negative); Ketones,Urine Negative (Negative); Leukocyte Esterase,Urine Negative (Negative); Mucus,Urine Rare /hpf; Nitrite,Urine Negative (Negative); PH, Urine 6.5 (5.0-8.0); Particle Count 3572; Protein,Urine 3+ (Negative); RBC,Urine 3 /hpf (0-5); Specific Gravity,Urine 1.014 (1.001-1.035); Squamous Epithelial Cell,Urine 2 /hpf (0-4); UA Billing (MACRO vs. MICRO) MICRO; WBC,Urine 2 /hpf (0-5)
[2017-05-20 21:16] LABS: ALT 27 U/L (21-72); AST 15 U/L (17-59); Alkaline Phosphatase 84 U/L (38-126); Amylase <30 U/L (30-110); Total Bilirubin 0.5 mg/dL (0.2-1.3); Total Protein 5.9 g/dL (6.3-8.2)
[2017-05-20 21:22] LABS: Non-African American GFR(MDRD) 5 (>60 ml/min/1.73 sqM)
--- NOTE | 2017-05-20 21:35 | XR ---
EXAMINATION TYPE: XR chest 2V DATE OF EXAM: 05/20/2017 COMPARISON: 12/22/2016 HISTORY: Vomiting TECHNIQUE: Frontal and lateral views of the chest are obtained. FINDINGS: There is mild coarsening of interstitial markings. There is no heart failure. Heart appear s enlarged. There are chest leads. There is no sign of pleural effusion. There appears to be a small amount of air under the right diaphragm. IMPRESSION: No heart failure. New bilateral pulmonary interstitial infiltrates compared to last exam . There is evidence of small pneumoperitoneum.
--- NOTE | 2017-05-20 21:37 | XR ---
EXAMINATION TYPE: XR KUB DATE OF EXAM: 05/20/2017 COMPARISON: 07/23/2015 HISTORY: Vomiting TECHNIQUE: 2 views FINDINGS: There is no sign of intestinal obstruction or pneumoperitoneum. There is a dialysis catheter apparent ly over the pelvis on the right side. There is vertebroplasty of T12. There are no pathologic calcifi cations over the kidneys. I see no evidence of a mass. IMPRESSION: Nonacute abdomen. Small pneumoperitoneum evident on the chest x-ray appears to relate to presence of dialysis catheter.
[2017-05-20] MEDS ORDERED: VANCOMYCIN IV PER PHARMACY 1 EACH MISC MISCELLANE PRN (22:20)
[2017-05-20] MEDS ORDERED: VANCOMYCIN 1,750 MG in SODIUM CHLORIDE 0.9% 250 ML IVPB STA (22:25)
[2017-05-20] MEDS ORDERED: cefTRIAXone IN SWFI 1,000 MG/10 ML SYRINGE IVP STA (22:54)
[2017-05-20] MEDS ORDERED: HYDROmorphone 0.5 MG/0.5 ML SYRINGE IVP PRN (23:00)
[2017-05-20] MEDS ORDERED: HYDROmorphone 1 MG/ML 1 ML SYRINGE IVP PRN (23:00)
[2017-05-20] MEDS ORDERED: NALOXONE 0.4 MG/ML 1 ML VIAL IV PRN (23:00)
[2017-05-20] MEDS ORDERED: SODIUM CHLORIDE 0.9% 1,000 ML IV SCH (23:00)
[2017-05-20] MEDS ORDERED: NALOXONE 0.4 MG/ML 10 ML VIAL IVP STA (23:40)
[2017-05-20] MEDS ORDERED: NALOXONE 0.4 MG/ML 1 ML VIAL IV STA (23:40)
--- NOTE | 2017-05-21 00:18 | XR ---
EXAMINATION TYPE: XR chest 1V portable DATE OF EXAM: 05/21/2017 COMPARISON: Today HISTORY: Abdominal pain. Nausea. TECHNIQUE: Single frontal view of the chest is obtained. FINDINGS: There is coarsening of the pulmonary interstitial markings. There is no pleural effusion. Heart is top normal in size. There are chest leads. IMPRESSION: Pulmonary fibrotic changes. There are pulmonary interstitial infiltrates. No change comp ared to exam 2 hours ago. Minimal heart failure cannot be entirely excluded.
[2017-05-21 01:12] LABS: T. Protein, Body Fluid Source Peritoneal Fluid
[2017-05-21 01:23] LABS: Glucose,Whole Blood 120 mg/dL (75-99)
[2017-05-21 01:28] LABS: LDH, Body Fluid Source Peritoneal Fluid
[2017-05-21 02:02] LABS: Glucose, BF Source Peritoneal Fluid
[2017-05-21] MEDS: MORPHINE SULFATE 10 MG/ML SYRINGE IVP PRN ×6 (04:35→23:26)
[2017-05-21 04:46] LABS: CH 26.8; CHCM 29.8; HDW 2.86; HGB 11.4 gm/dL (13.0-17.5); Hypochromasia Marked; MCH 27.6 pg (25.0-35.0); MCHC 30.7 g/dL (31.0-37.0); MCV 89.9 fL (80.0-100.0); Mean Platelet Volume 7.5; RBC 4.12 m/uL (4.30-5.90); RDW 15.2 % (11.5-15.5); WBC 10.9 k/uL (3.8-10.6)
[2017-05-21 05:08] LABS: Calcium 7.7 mg/dL (8.4-10.2); Magnesium 1.8 mg/dL (1.6-2.3); Potassium 3.7 mmol/L (3.5-5.1)
[2017-05-21] MEDS ORDERED: DIALYSIS (PERIT 2.5%) 2,000 ML 50 G/2,000 ML BAG INTRAPERIT ONE (06:00)
[2017-05-21] MEDS ORDERED: VANCOMYCIN 1,250 MG in DIALYSIS (PERITONL) DEX 2.5% 2,000 ML INTRAPERIT ONE (06:15)
[2017-05-21] MEDS ORDERED: VANCOMYCIN INTRAPERIT ONE ×2 (06:15)
[2017-05-21] MEDS ORDERED: DIALYSIS DEX INTRAPERIT ONE ×2 (06:15)
[2017-05-21] MEDS: MAGNESIUM SULFATE-D5W PMX 1 GM in DEXTROSE/WATER 1 100ML.BAG IVPB ONE ×2 (06:40→07:41)
[2017-05-21 08:12] LABS: Glucose,Whole Blood 182 mg/dL (75-99)
[2017-05-21 08:58] LABS: RBC, Body Fluid 67 /uL
[2017-05-21] MEDS ORDERED: PANTOPRAZOLE 40 MG/10 ML VIAL IV SCH (09:00)
[2017-05-21] MEDS ORDERED: FAMOTIDINE 20 MG TAB PO SCH (09:00)
[2017-05-21] MEDS: acetaZOLAMIDE 250 MG TAB PO SCH ×2 (09:01→20:26)
[2017-05-21] MEDS: CALCIUM ACETATE 667 MG CAP PO SCH ×3 (09:01→17:34)
[2017-05-21] MEDS: SEVELAMER 800 MG TAB PO SCH ×3 (09:01→17:33)
[2017-05-21] MEDS: AMIODARONE 200 MG TAB PO SCH ×2 (09:02→20:26)
[2017-05-21] MEDS: amLODIPine 10 MG TAB PO SCH (09:02)
[2017-05-21] MEDS: GABAPENTIN 300 MG CAP PO SCH ×3 (09:03→22:04)
[2017-05-21] MEDS: levETIRAcetam 250 MG TAB PO SCH ×2 (09:03→20:26)
[2017-05-21] MEDS: DIVALPROEX 500 MG TABLET.DR PO SCH ×3 (09:03→22:04)
[2017-05-21] MEDS: LEVOTHYROXINE 25 MCG TAB PO SCH (09:04)
[2017-05-21] MEDS: THIAMINE 100 MG TAB PO SCH (09:04)
[2017-05-21] MEDS: INSULIN ASPART 100 UNIT/ML 1 ML 10 ML VIAL SQ SCH ×3 (09:36→17:38)
[2017-05-21] MEDS ORDERED: DIALYSIS (PERIT 2.5%) 2,000 ML 50 G/2,000 ML BAG INTRAPERIT SCH ×4 (12:00→18:00)
[2017-05-21] MEDS ORDERED: CEFTAZIDIME INTRAPERIT SCH ×3 (12:00)
[2017-05-21] MEDS ORDERED: DIALYSIS (PERIT 1.5%) 2,000 ML 30 G/2,000 ML BAG INTRAPERIT SCH (12:00)
[2017-05-21] MEDS ORDERED: DIALYSIS DEX INTRAPERIT SCH ×4 (12:00→18:00)
[2017-05-21] MEDS: HEPARIN SODIUM INTRAPERIT SCH ×2 (12:34→18:32)
[2017-05-21] MEDS: [UNRECOGNIZED DRUG - OTHER] INTRAPERIT SCH (12:34)
[2017-05-21] MEDS: CEFTAZIDIME INTRAPERIT SCH (12:34)
[2017-05-21 12:47] LABS: Glucose,Whole Blood 184 mg/dL (75-99)
--- NOTE | 2017-05-21 12:52 | CONS ---
CONSULTATION REASON FOR CONSULT: End-stage renal disease. HISTORY OF PRESENT ILLNESS: Patient is a 46-year-old male with history of end-stage renal disease, on peritoneal dialysis. He was admitted to the hospital with history of abdominal pain, cloudy bag for about 1 day prior to admission. Patient denies any diarrhea prior to the episode of the cloudy bag. He had no fever. He denied any significant change in his routine. Patient did not have any significant bowel issues prior to this episode. He has not had peritonitis previously. He is currently maintained on IV Rocephin. He is also receiving Vanco and Fortaz intraperitoneally. The patient states he is feeling slightly better. He has had issues with draining during his exchanges recently. PAST MEDICAL HISTORY: End-stage renal disease, on hemodialysis. Anemia of chronic disease. CKD mineral bone disorder. Coronary artery disease, diabetes, gastroesophageal reflux disease, history of DVT, hypertension, peripheral vascular disease. Seizure disorder and diabetic gastropathy from history of DC, chronic anemia. PAST SURGICAL HISTORY: Left BKA, history of MRSA infection, cataracts, peritoneal dialysis catheter placement, vitrectomy and retinal surgeries, right partial foot amputation. SOCIAL HISTORY: Negative for smoking, drug abuse or alcohol abuse. MEDICATIONS: Prior to admission include Lipitor, PhosLo, Neurontin, insulin, Synthroid, Keppra, Pepcid, Renvela, Cordarone, Depakote, Viagra, Flomax, Diamox, Norvasc. ALLERGIES: NKDA. REVIEW OF SYSTEMS: As per HPI. Other systems negative. EXAMINATION: Patient is comfortable, awake, alert, oriented x3, not in any acute distress. Blood pressure is 141/84, heart rate 71 per minute. He is afebrile. Examination of the heart: S1, S2. Examination lungs: Bilateral breath sounds are heard. Abdomen is soft, nontender. Examination lower extremities shows left BKA, right forefoot amputation, chronic skin changes. Trace edema is noted in his right lower extremity. PIG STICKER exam is grossly intact. Patient moving all 4 extremities. LAB: Show sodium 137, potassium 3.7, BUN 58, serum creatinine 11.3, hemoglobin 11.4 g/dL. ASSESSMENT: 1. End-stage renal disease, on peritoneal dialysis. 2. Continuous ambulatory peritoneal dialysis peritonitis. Maintained on empiric Fortaz and Vanco. Cultures are pending. We will repeat of PD fluid cell count today as well as tomorrow. 3. CKD mineral bone disorder. Check phosphorus. Maintain phosphate binders. 4. History of seizures, maintained on Depakote. 5. Hypertension, currently controlled. 6. Diabetes maintained on insulin. PLAN: Check daily cell count. Follow up on cultures. Continue empiric antibiotics. We can add heparin to the dialysate to help with the difficulty in outflow. MMODL / IJN: [id number] /
--- NOTE | 2017-05-21 14:17 | P.HPIM ---
History of Present Illness H&P Date: 05/21/17 Chief Complaint: Abdominal pain 46-year-old male who presented to the emergency room on 05/20/2017 with a chief complaint of abdominal pain and cloudy peritoneal fluid. The patient states he has had abdominal pain that has persisted for two days. He also complained of intermittent nausea and vomiting. He states that he noticed his peritoneal fluid was becoming cloudy as well. The patient has a history of end-stage renal disease. He states he has been on peritoneal dialysis for 2-1/2 years. He states prior to that he did hemodialysis for 8 months but he did not tolerate and had multiple side effects and was then transitioned to peritoneal dialysis. He also has history of coronary artery disease, diabetes mellitus, DVT, gastro-esophageal reflux disease, hypertension, hyperlipidemia, myocardial infarction, and peripheral vascular disease with a left [id number] mutation and a right foot partial amputation. He states he has a wound to his right calf that is not healing. He also has a history of MRSA in 2014 in his blood and left foot. In the emergency room, a chest x-ray was completed which showed bilateral infiltrates. KUB was completed which showed small pneumoperitoneum which was thought to be related to dialysis port. Peritoneal fluid was sent for culture. Sodium on admission was 139, potassium 3.4, BUN 53, creatinine 12.04, WBCs 11.4, hemoglobin 12.7, platelets 176. Troponin was negative 1. Lactic acid on admission was 1.3 It was also noted that while the patient was in the emergency room he received IV pain medication and became unresponsive and apneic and it was difficult to feel a pulse. ER staff started CPR and the patient was revived. The patient also received Narcan. After CPR, there was thoughts of possible rib fractures. Chest xray was completed which was negative for rib fractures. IV pain medication has since been discontinued. The patient was admitted to the hospital under the care of Dr. Aguilar. Consultations were placed to nephrology. The patient was seen and examined at the bedside with Dr. Aguilar on rounds. He states he is feeling okay today. He does continue to complain of abdominal pain but states it is improving. He denies nausea or vomiting. He is tolerating a consistent carbohydrate diet without nausea or vomiting. He remains in contact isolation for history of MRSA infection. He remains on Rocephin and Vanco. He remains on 2L NC with oxygen saturations greater than 92%. Blood pressure is stable. He is afebrile. Review of Systems GENERAL: Patient denies fever. Denies chills. EYES: Denies blurred vision. Denies vision changes. Denies eye pain. EARS, NOSE, MOUTH, & THROAT: Denies headache. Denies sore throat. Denies ear pain. RESPIRATORY: Denies cough. Denies shortness of breath. Denies sputum production. Denies hemoptysis. CARDIOVASCULAR: Denies chest pain or pressure. Denies palpitations. Denies arrhythmias. GASTROINTESTINAL: Positive for abdominal pain. Positive for recent nausea and vomiting. Currently denying nausea or vomiting. Denies diarrhea. Denies constipation. Denies heartburn. Denies blood in the stool. GENITOURINARY: Denies urinary frequency. Denies burning. Denies dysuria. Denies cloudy urine. Denies blood in the urine. MUSCULOSKELETAL: Denies myalgias. Denies joint swelling. Denies decreased range of motion beyond patients baseline. INTEGUMENTARY: Denies pruitis. Denies rash. PSYCHIATRIC: Denies suicidal or homicial ideations. ENDOCRINE: Denies weight change. Denies polydipsia. Denies polyuria. HEMATOLOGIC: Denies bleeding disorders. Past Medical History Past Medical History: Coronary Artery Disease (CAD), Diabetes Mellitus, Dialysis , Deep Vein Thrombosis (DVT), GERD/Reflux, Hyperlipidemia, Hypertension, Myocardial Infarction ([place]), Musculoskeletal Disorder, Renal Disease, Seizure Disorder Additional Past Medical History / Comment(s): Diabetic gastropathy, End stage renal disease currently on peritoneal dialysis , peripheral neuropathy, seizure disorder, compression fracture of the vertebral along with known history of this disease, blood clot from IV line in the upper extremity on the left, coronary artery disease, previous myocardial infarction, insulin- dependent diabetes mellitus, GE reflux, gastritis, chronic anemia, cataracts, currently on peritoneal dialysis, peripheral vascular disease with previous amputation involving a below-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 Last Myocardial Infarction Date:: 2012 History of Any Multi-Drug Resistant Organisms: MRSA Date of last positivie culture/infection: 04/08/15 MDRO Source:: Blood & Left Foot Past Surgical History: Orthopedic Surgery Additional Past Surgical History / Comment(s): amputation right toes, BKA right leg 2013, GEORGE CATARACTS,VITRECTOMY,GEORGE RETINAL SX Past Anesthesia/Blood Transfusion Reactions: No Reported Reaction Additional Past Anesthesia/Blood Transfusion Reaction / Comment(s): VERTIGO Past Psychological History: No Psychological Hx Reported Additional Psychological History / Comment(s): Single. Tobacco smoker. Denies significant alcohol or recreational drug use. Originally was from the [place] area and then moved down to [place]. Is now moved back to be with his family members in [place] since 2014. He has no experience. He denies any significant travel history. Brother has a pet dog in the home in which he lives. Relates that his 13-year-old daughter 2 years ago from suicide at the age of 13 Smoking Status: Never smoker Past Alcohol Use History: None Reported Past Drug Use History: None Reported - Past Family History Father Family Medical History: Cancer Additional Family Medical History / Comment(s): CANCER FROM [employer] Mother History Unknown: Yes Family Medical History: Cancer, Supraventricular Tachycardia (SVT) Additional Family Medical History / Comment(s): LUNG CANCER(SMOKER) Medications and Allergies Home Medications Medication Instructions Recorded Confirmed Type Atorvastatin [Lipitor] 80 mg PO HS 04/08/15 05/21/17 History Calcium Acetate [PhosLo] 667 mg PO TID-W/MEALS 04/08/15 05/21/17 History Gabapentin [Neurontin] 300 mg PO TID 04/08/15 05/21/17 History Insulin Glargine [Lantus] 10 unit SQ HS 04/08/15 05/21/17 History Levothyroxine Sodium [Synthroid] 25 mcg PO DAILY 04/08/15 05/21/17 History Insulin Aspart [NovoLOG See Protocol SQ AC-TID 05/21/15 05/21/17 History (formulary)] levETIRAcetam [Keppra] 750 mg PO Q12HR 05/21/15 05/21/17 History Famotidine [Pepcid] 20 mg PO BID 01/20/16 05/21/17 History Sevelamer [Renvela] 1,600 mg PO AC-TID 01/20/16 05/21/17 History Amiodarone [Cordarone] 200 mg PO BID 05/20/17 05/21/17 History Divalproex Sodium [Depakote] 500 mg PO TID 05/20/17 05/21/17 History Dilcia Jordan 1 tab PO DAILY 05/20/17 05/21/17 History Sildenafil Citrate [Viagra] 100 mg PO ONCE PRN 05/20/17 05/20/17 History Tamsulosin [Flomax] 0.8 mg PO PC-SUPPER 05/20/17 05/21/17 History Thiamine [Vitamin B-1] 100 mg PO DAILY 05/20/17 05/21/17 History acetaZOLAMIDE [Diamox] 125 mg PO BID 05/20/17 05/21/17 History amLODIPine [Norvasc] 10 mg PO DAILY 05/20/17 05/21/17 History Allergies Allergy/AdvReac Type Severity Reaction Status Date / Time No Known Allergies Allergy Verified 05/20/17 20:11 Physical Exam Vitals: Vital Signs Temp Pulse Pulse Resp BP BP Pulse Ox 05/21/17 08:00 98.1 F 71 18 141/84 05/21/17 06:52 97.8 F 87 12 140/87 95 05/21/17 04:00 97.7 F 79 16 113/79 95 05/21/17 01:30 98.1 F 75 12 138/83 97 05/21/17 00:45 81 16 104/63 99 05/21/17 00:10 76 18 135/65 100 05/20/17 23:58 76 16 161/86 100 05/20/17 23:28 98.4 F 76 18 102/62 94 L 05/20/17 22:24 98.7 F 76 18 105/62 95 05/20/17 20:44 83 18 138/77 96 05/20/17 19:25 98.6 F 88 16 135/81 99 Intake and Output 05/20/17 05/21/17 05/21/17 22:59 06:59 14:59 Intake Total 2690 300 Output Total 900 Balance 1790 300 Intake: IV 2450 2.5% Dialysisate 2000 Sodium Chloride 0.9% 1, 400 000 ml @ 120 mls/hr IV . Q8H20M [facility] Rx#:[id number] cefTAZidime 1 gm In 50 Sodium Chloride 0.9% 50 ml @ 100 mls/hr IVPB ONCE STA Rx#:[id number] Oral 240 300 Output: Drainage 900 Abdomen 900 Other: Voiding Method Urinal Urinal # Bowel Movements 1 Weight 92.986 kg 89.6 kg GENERAL: This is a 46-year-old male in no apparent distress at the time of examination. Pleasant and cooperative. HEENT: Head is atraumatic, normocephalic. Pupils are equal, round, and reactive to light. Sclerae anicteric. Conjunctivae are clear. Mucus membranes of the mouth are moist. Neck is supple. RESPIRATORY: Clear to ausculation. No wheezes, rales, or rhonchi. No use of accessory muscles. Patient maintaining oxygen saturation greater than 92%. No chest wall tenderness is noted on palpation or with deep breathing. CARDIOVASCULAR: Regular rate and rhythm. S1 and S2 noted. No systolic or diastolic murmur auscultated. No JVD noted. No S3 or S4 noted. GASTROINTESTINAL: Peritoneal dialysis catheter present. Pain and tenderness upon palpation. No distention noted. Abdomen soft and round. Normal active bowel sounds auscultated x 4 quadrants. INTEGUMENTARY: Chronic wound noted to right calf. No cyanosis. No jaundice. No rashes noted. No cellulitis noted. EXTREMITIES: Left below the knee amputation. Right partial foot amputation. No evidence of peripheral edema. No calf tenderness noted. NEUROLOGIC: Cranial nerves II-XII intact. PSYCHIATRIC: Awake, alert, and oriented X 3. Appropriate affect. Intact judgement and insight. Results CBC & Chem 7: 05/21/17 04:19 05/21/17 04:19 Labs: Abnormal Lab Results - Last 24 Hours (Table) 05/20/17 05/20/17 05/20/17 Range/Units 20:31 20:35 20:35 WBC 11.4 H (3.8-10.6) k/uL RBC (4.30-5.90) m/uL Hgb 12.7 L (13.0-17.5) gm/dL Hct (39.0-53.0) % MCHC 30.9 L (31.0-37.0) g/dL RDW 15.8 H (11.5-15.5) % Neutrophils # 9.0 H (1.3-7.7) k/uL Potassium 3.4 L (3.5-5.1) mmol/L Carbon Dioxide (22-30) mmol/L BUN 53 H (9-20) mg/dL Creatinine 12.04 H* (0.66-1.25) mg/dL Glucose 184 H (74-99) mg/dL POC Glucose (mg/dL) (75-99) mg/dL Calcium 8.0 L (8.4-10.2) mg/dL AST 15 L (17-59) U/L Total Protein 5.9 L (6.3-8.2) g/dL Albumin 3.0 L (3.5-5.0) g/dL Amylase <30 L (30-110) U/L Lipase 21 L (23-300) U/L Urine Protein 3+ H (Negative) Urine Glucose (UA) 3+ H (Negative) Urine Blood Small H (Negative) Urine Bacteria Rare H (None) /hpf Urine Mucus Rare H (None) /hpf 05/21/17 05/21/17 05/21/17 Range/Units 01:20 04:19 04:19 WBC 10.9 H (3.8-10.6) k/uL RBC 4.12 L (4.30-5.90) m/uL Hgb 11.4 L (13.0-17.5) gm/dL Hct 37.0 L (39.0-53.0) % MCHC 30.7 L (31.0-37.0) g/dL RDW (11.5-15.5) % Neutrophils # (1.3-7.7) k/uL Potassium (3.5-5.1) mmol/L Carbon Dioxide 21 L (22-30) mmol/L BUN 58 H (9-20) mg/dL Creatinine 11.30 H* (0.66-1.25) mg/dL Glucose 137 H (74-99) mg/dL POC Glucose (mg/dL) 120 H (75-99) mg/dL Calcium 7.7 L (8.4-10.2) mg/dL AST (17-59) U/L Total Protein (6.3-8.2) g/dL Albumin (3.5-5.0) g/dL Amylase (30-110) U/L Lipase (23-300) U/L Urine Protein (Negative) Urine Glucose (UA) (Negative) Urine Blood (Negative) Urine Bacteria (None) /hpf Urine Mucus (None) /hpf 05/21/17 05/21/17 Range/Units 07:39 12:45 WBC (3.8-10.6) k/uL RBC (4.30-5.90) m/uL Hgb (13.0-17.5) gm/dL Hct (39.0-53.0) % MCHC (31.0-37.0) g/dL RDW (11.5-15.5) % Neutrophils # (1.3-7.7) k/uL Potassium (3.5-5.1) mmol/L Carbon Dioxide (22-30) mmol/L BUN (9-20) mg/dL Creatinine (0.66-1.25) mg/dL Glucose (74-99) mg/dL POC Glucose (mg/dL) 182 H 184 H (75-99) mg/dL Calcium (8.4-10.2) mg/dL AST (17-59) U/L Total Protein (6.3-8.2) g/dL Albumin (3.5-5.0) g/dL Amylase (30-110) U/L Lipase (23-300) U/L Urine Protein (Negative) Urine Glucose (UA) (Negative) Urine Blood (Negative) Urine Bacteria (None) /hpf Urine Mucus (None) /hpf Microbiology - Last 24 Hours (Table) 05/21/17 04:10 Body Fluid Culture - Preliminary Peritoneal Fluid 05/20/17 20:31 Gram Stain - Preliminary Dialysate Body Fluid Culture - Preliminary Thrombosis Risk Factor Assmnt - Choose All That Apply Any of the Below Risk Factors Present?: Yes Each Factor Represents 1 point: Age 41-60 years Other Risk Factors: Yes Each Risk Factor Represents 3 Points: History of DVT/PE Thrombosis Risk Factor Assessment Total Risk Factor Score: 4 Thrombosis Risk Factor Assessment Level: Moderate Risk Assessment and Plan Plan: ASSESSMENT: Peritonitis, secondary to peritoneal dialysis, cultures pending End-stage renal disease, on peritoneal dialysis Abdominal pain, nausea, and vomiting secondary to peritonitis Diabetes mellitus, type II, hemoglobin A1c pending Coronary artery disease with previous myocardial infarction Peripheral vascular disease with history of left BKA and right partial foot amputation History of MRSA infection in left lower extremity Hypertension History of seizures PLAN: -Nephrology on consult. Appreciate recommendations and input -Continue peritoneal dialysis exchanges as recommended by nephrology -Await culture of peritoneal fluid -Consult infectious disease, Dr. Piedra -Continue Rocephin and Vanco -Home meds as appropriate -Monitor labs -Monitor capillary blood glucose Accu-Cheks before meals and at bedtime -Continue humalog sliding scale before meals and at bedtime -Continue 10 units Levemir at bedtime -Await results of hemoglobin A1C -GI prophylaxis: Pepcid 20mg PO BID -DVT prophylaxis: Venodynes to right lower extremity -Monitor vital signs and address as appropriate -Discharge planning: Patient to return home. May need home care. will consult case management. -Further recommendations pending patient's course Nurse practitioner note has been reviewed by physician. Signing provider agrees with the documented findings, assessment, and plan of care.
[2017-05-21 15:06] LABS: RBC, Body Fluid 72 /uL
[2017-05-21 17:17] LABS: Glucose,Whole Blood 145 mg/dL (75-99)
[2017-05-21] MEDS: TAMSULOSIN 0.4 MG CAP.ER.24H PO SCH (17:34)
[2017-05-21] MEDS: DIALYSIS DEX INTRAPERIT SCH (18:32)
[2017-05-21] MEDS: ATORVASTATIN 80 MG TAB PO SCH (20:25)
[2017-05-21 20:49] LABS: Glucose,Whole Blood 181 mg/dL (75-99)
[2017-05-21] MEDS ORDERED: cefTRIAXone IN SWFI 1,000 MG/10 ML SYRINGE IVP SCH (22:00)
[2017-05-21] MEDS: INSULIN DETEMIR 100 UNIT/ML 10 ML VIAL SQ SCH (22:09)
--- NOTE | 2017-05-21 23:12 | CONS ---
CONSULTATION DATE OF SERVICE: 05/21/2017. REASON FOR CONSULTATION: 1. Peritoneal dialysis peritonitis. 2. Right leg wound. HISTORY OF PRESENT ILLNESS: The patient is a 46-year-old male with past medical history significant for end-stage renal disease on peritoneal dialysis for almost 2 years now. The patient presented to the [facility] ER with chief complaint of abdominal pain. The pain has been going on for the last 2 days. Subsequently, the patient noticed that his peritoneal dialysis fluid was coming back cloudy. The patient also has intermittent nausea and vomiting, elevated heartbeat. Denies significant diarrhea. With these symptoms, the patient presented to the [facility] ER. The patient was evaluated by the ER physician. The patient did have a KUB which did show small pneumoperitoneum and some bilateral pulmonary infiltrate. The peritoneal fluid was cloudy with 1500 enucleated cells with a glucose of 128, LDH of 81 and elevated protein. The patient has been admitted to the ICU. He is getting ceftazidime intraperitoneally, Rocephin IV and vancomycin through dialysis. ID was consulted today for further recommendation regarding antibiotic therapy. The patient also has a wound which seems to have scabbed over on the right leg. The patient not sure how it started, but he did mention that he keeps on bumping into areas and has injured that area. No significant symptoms referable to it. REVIEW OF SYSTEMS: CONSTITUTIONAL: Positive for weakness. No high-grade fever. EYES: No complaint. ENT: No complaint. RESPIRATORY: No complaint. CARDIOVASCULAR: No complaint. GENITOURINARY: No complaint. GASTROINTESTINAL: As per HPI. MUSCULOSKELETAL: No complaint. INTEGUMENTARY: As per HPI. PSYCHOLOGICAL: No complaint. ENDOCRINE: No complaint. NEUROLOGICAL: No complaint. PAST MEDICAL HISTORY: Significant for coronary artery disease, diabetes mellitus, some end-stage renal disease on peritoneal dialysis and DVT, gastroesophageal reflux disease, hypertension, hyperlipidemia, ME, seizure disorder, previous history of MRSA infection of the left foot, partial amputation of the right foot, toes, BKA right leg, bilateral cataract surgery, vitrectomy . SOCIAL HISTORY: No history of smoking, drinking or drug use. FAMILY HISTORY: Father with history of cancer. Mother with a history of lung cancer. ALLERGIES: No known drug allergies. MEDICATION: Include the patient is currently on: 1. Flomax. 2. Renvela. 3. Zofran. 4. Narcan. 5. Morphine sulfate. 6. Vancomycin. Pharmacy to dose. 7. Synthroid. 8. Keppra. 9. Levemir. 10.NovoLog. 11.Heparin. 12.Neurontin. 13.Pepcid. 14.Depakote. 15.Rocephin. 16.Ceftazidime. 17.Lipitor. 18.Norvasc. 19.Amiodarone. EXAMINATION: Blood pressure is 150/84 with a pulse of 69, temperature 97.6. He is 97% on room air. GENERAL DESCRIPTION: A middle-aged male lying in bed in no distress. No tachypnea or accessory muscle of respiration use. HEENT: Slight pallor. No scleral icterus. Oral mucosa is dry. NECK: Trachea central. No thyromegaly. LUNGS: Unlabored breathing. Clear to auscultation anteriorly. No wheeze or crackle. HEART: S1, S2. Regular rate and rhythm. ABDOMEN: Soft. Minimally tender. No guarding. No rigidity. The peritoneal dialysis catheter site with no evidence of any of any peritoneal infection. EXTREMITIES: Right leg, he did have a scab with a wound with no significant surrounding extremity changes. NEUROLOGICAL: The patient is awake, alert, oriented x3. Mood and affect normal. LABS: Hemoglobin 11.4, white count 10.9. Admission white count was 11.4. BUN of 58, creatinine 11.30, potassium is 3.7. Lactic acid was 1.3. Peritoneal fluid with enucleated cells of 1500. DIAGNOSTIC IMPRESSION AND PLAN: 1. Patient with peritonitis secondary to peritoneal dialysis, this being the first episode while the pt is getting peritoneal dialysis for almost 2 years. The likely organisms could be a gram-positive skin becca and less likely gram-negative, although cannot entirely excluded and the patient with no other clinical focus of infection. 2. Patient's right leg wound, currently scabbed over with no evidence of any cellulitis. PLAN: 1. We will recommend keeping the patient on ceftazidime and vancomycin through the peritoneal fluid. However, discontinue the Rocephin. No need for double beta- lactam coverage. 2. As far as the right leg area scab, will leave the scab to dry out and no specific dressing. Keep the area off the pressure. 3. Will follow up on the clinical condition and culture to further adjust medication if needed. 4. Thank you for this consultation. I will follow this patient along with you. MMODL / IJN: [id number] / YANI
[2017-05-22] MEDS: DIALYSIS DEX INTRAPERIT SCH ×4 (00:02→23:55)
[2017-05-22] MEDS: HEPARIN SODIUM INTRAPERIT SCH ×5 (00:02→23:55)
[2017-05-22] MEDS: MORPHINE SULFATE 10 MG/ML SYRINGE IVP PRN ×2 (02:41→08:23)
[2017-05-22 06:19] LABS: Glucose,Whole Blood 185 mg/dL (75-99)
[2017-05-22 06:24] LABS: CH 27.4; CHCM 29.4; HCT 35.4 % (39.0-53.0); HDW 2.84; HGB 10.5 gm/dL (13.0-17.5); Hypochromasia Marked; MCH 27.7 pg (25.0-35.0); MCHC 29.6 g/dL (31.0-37.0); MCV 93.5 fL (80.0-100.0); RBC 3.78 m/uL (4.30-5.90); RDW 15.5 % (11.5-15.5)
[2017-05-22] MEDS: CALCIUM ACETATE 667 MG CAP PO SCH ×3 (06:28→16:55)
[2017-05-22] MEDS: INSULIN ASPART 100 UNIT/ML 1 ML 10 ML VIAL SQ SCH ×3 (06:28→17:01)
[2017-05-22] MEDS: SEVELAMER 800 MG TAB PO SCH ×3 (06:28→16:56)
[2017-05-22 06:32] LABS: Calcium 7.7 mg/dL (8.4-10.2); Potassium 3.7 mmol/L (3.5-5.1)
[2017-05-22] MEDS: acetaZOLAMIDE 250 MG TAB PO SCH (08:19)
[2017-05-22] MEDS: AMIODARONE 200 MG TAB PO SCH ×2 (08:21→21:38)
[2017-05-22] MEDS: DIVALPROEX 500 MG TABLET.DR PO SCH ×3 (08:21→21:38)
[2017-05-22] MEDS: levETIRAcetam 250 MG TAB PO SCH ×2 (08:22→21:37)
[2017-05-22] MEDS: GABAPENTIN 300 MG CAP PO SCH ×3 (08:22→21:38)
[2017-05-22] MEDS: LEVOTHYROXINE 25 MCG TAB PO SCH (08:22)
[2017-05-22] MEDS: FAMOTIDINE 20 MG TAB PO SCH (08:22)
[2017-05-22] MEDS: THIAMINE 100 MG TAB PO SCH (08:22)
[2017-05-22 09:37] LABS: Glucose,Whole Blood 179 mg/dL (75-99)
--- NOTE | 2017-05-22 09:37 | P.PN ---
Subjective Patient is seen in follow-up for end-stage renal disease. He is maintained on peritoneal dialysis. Patient presented with cloudy dialysate and is noted to have peritonitis. His total cell count has come down but his PMN count stays quite elevated. One set of blood cultures also came back positive for gram- positive cocci. He's been having vomiting today. Denies chest pain or shortness of breath. Patient states the dialysate fluid is not as cloudy compared to admission. Vital signs are stable. General: The patient appeared well nourished and normally developed. HEENT: Head exam is unremarkable. Neck is without jugular venous distension. LUNGS: Lungs are clear to auscultation and percussion. Breath sounds decreased. HEART: Rate and Rhythm are regular. First and second heart sounds normal. No murmurs, rubs or gallops. ABDOMEN: Abdominal exam reveals normal bowel sounds. Generalized tenderness. EXTREMITITES: No clubbing, cyanosis, or edema. Left BKA noted. Objective - Vital Signs Vital signs: Vital Signs Temp 97.1 F L 05/22/17 05:53 Pulse 75 05/22/17 05:53 Resp 16 05/22/17 05:53 BP 108/59 05/22/17 05:53 Pulse Ox 95 05/22/17 05:53 Intake & Output 05/21/17 05/22/17 05/22/17 18:59 06:59 18:59 Intake Total 3900 354 Output Total 2100 1600 Balance 1800 -1246 Weight 89.8 kg 88 kg Intake: IV 3600 2.5% Dialysisate 3600 Oral 300 354 Output: Drainage 2000 1500 Abdomen 2000 1500 Urine 100 100 Other: Voiding Method Urinal Urinal # Voids 1 0 # Bowel Movements 1 - Labs CBC & Chem 7: 05/22/17 05:17 05/22/17 05:17 Labs: Abnormal Lab Results - Last 24 Hours (Table) 05/21/17 05/21/17 05/21/17 Range/Units 04:19 12:45 17:15 RBC (4.30-5.90) m/uL Hgb (13.0-17.5) gm/dL Hct (39.0-53.0) % MCHC (31.0-37.0) g/dL Sodium (137-145) mmol/L BUN (9-20) mg/dL Creatinine (0.66-1.25) mg/dL Glucose (74-99) mg/dL POC Glucose (mg/dL) 184 H 145 H (75-99) mg/dL Hemoglobin A1c 9.9 H (4.0-6.0) % Calcium (8.4-10.2) mg/dL 05/21/17 05/22/17 05/22/17 Range/Units 20:46 05:17 05:17 RBC 3.78 L (4.30-5.90) m/uL Hgb 10.5 L (13.0-17.5) gm/dL Hct 35.4 L (39.0-53.0) % MCHC 29.6 L (31.0-37.0) g/dL Sodium 133 L (137-145) mmol/L BUN 55 H (9-20) mg/dL Creatinine 10.60 H* (0.66-1.25) mg/dL Glucose 204 H (74-99) mg/dL POC Glucose (mg/dL) 181 H (75-99) mg/dL Hemoglobin A1c (4.0-6.0) % Calcium 7.7 L (8.4-10.2) mg/dL 05/22/17 Range/Units 06:17 RBC (4.30-5.90) m/uL Hgb (13.0-17.5) gm/dL Hct (39.0-53.0) % MCHC (31.0-37.0) g/dL Sodium (137-145) mmol/L BUN (9-20) mg/dL Creatinine (0.66-1.25) mg/dL Glucose (74-99) mg/dL POC Glucose (mg/dL) 185 H (75-99) mg/dL Hemoglobin A1c (4.0-6.0) % Calcium (8.4-10.2) mg/dL Microbiology - Last 24 Hours (Table) 05/21/17 04:10 Gram Stain - Preliminary Peritoneal Fluid Body Fluid Culture - Preliminary 05/20/17 20:35 Blood Culture Gram Stain - Preliminary Blood 05/20/17 20:35 Blood Culture - Final Blood 05/20/17 20:31 Gram Stain - Preliminary Dialysate Body Fluid Culture - Preliminary Assessment and Plan Plan: Assessment: #1. End-stage renal disease maintained on peritoneal dialysis. #2. CAPD associated peritonitis. #3. Gram-positive bacteremia. #4. Insulin-dependent diabetes mellitus. #5. Chronic kidney disease mineral bone disease maintained on Renvela and PhosLo. #6. Hypertension with chronic kidney disease. Controlled. Blood pressure in the lower side this morning. Plan: Continue with current PD exchanges. Patient received intraperitoneal vancomycin on May 21. Continue with intraperitoneal Fortaz 1 g daily. Started on May 21. Add IV vancomycin as well. Infectious disease following. Repeat cell count culture and Gram stain daily. Follow-up cultures. Check phosphorus level. Hold antihypertensives for systolic blood pressure less than 120.
[2017-05-22] MEDS: amLODIPine 10 MG TAB PO SCH (09:41)
[2017-05-22] MEDS: ONDANSETRON 4 MG/2 ML VIAL IVP PRN ×2 (09:41→16:56)
[2017-05-22] MEDS ORDERED: VANCOMYCIN IV PER PHARMACY 1 EACH MISC MISCELLANE PRN (10:14)
[2017-05-22] MEDS ORDERED: VANCOMYCIN 1,000 MG in SODIUM CHLORIDE 0.9% 250 ML IVPB STA (10:14)
[2017-05-22 11:39] LABS: Glucose,Whole Blood 174 mg/dL (75-99)
--- NOTE | 2017-05-22 11:55 | P.PN ---
Subjective Progress Note Date: 05/22/17 Principal diagnosis: Patient has a recurrent history of end-stage renal disease. Currently maintained on peritoneal dialysis. She presented to the hospital with peritonitis persistent abdominal pain. His total cell count, has come down but PMN count stays quite elevated. One set of blood cultures also came back positive for gram-positive cocci. Patient has been vomiting with some retching today. Objective - Vital Signs Vital signs: Vital Signs Temp 98.8 F 05/22/17 11:19 Pulse 84 05/22/17 11:19 Resp 16 05/22/17 11:19 BP 130/61 05/22/17 11:19 Pulse Ox 93 L 05/22/17 11:19 Intake & Output 05/21/17 05/22/17 05/22/17 18:59 06:59 18:59 Intake Total 3900 354 Output Total 2100 1600 Balance 1800 -1246 Weight 89.8 kg 88 kg 88 kg Intake: IV 3600 2.5% Dialysisate 3600 Oral 300 354 Output: Drainage 2000 1500 Abdomen 2000 1500 Urine 100 100 Other: Voiding Method Urinal Urinal Urinal # Voids 1 0 # Bowel Movements 1 - Exam General: [Patient awake, alert and oriented times 3. Patient in no acute distress.] HEENT: [PERRL. EOMI. No pharyngeal erythema or exudate.] Neck: [No adenopathy.] Cardiac: [Heart regular in rate and rhythm. No S3. No S4. No clicks, rubs. No murmur.] Lungs: [Clear to auscultation bilaterally.] Abdomen: [No mass. No organomegaly. Bowel sounds presnt and diffuse lower abdominal pain across his belly.] Extremes: [No edema no cyanosis no claudication normal pulses] : [] Musculoskeletal: [No joint erythema, edema or tenderness.] Skin: [No rash.] Neurologic: [No lateralizing deficits. CN II - XII grossly intact.] Lymphatic: [No adenopathy.] - Labs CBC & Chem 7: 05/22/17 05:17 05/22/17 05:17 Labs: Abnormal Lab Results - Last 24 Hours (Table) 05/21/17 05/21/17 05/21/17 Range/Units 04:19 12:45 17:15 RBC (4.30-5.90) m/uL Hgb (13.0-17.5) gm/dL Hct (39.0-53.0) % MCHC (31.0-37.0) g/dL Sodium (137-145) mmol/L BUN (9-20) mg/dL Creatinine (0.66-1.25) mg/dL Glucose (74-99) mg/dL POC Glucose (mg/dL) 184 H 145 H (75-99) mg/dL Hemoglobin A1c 9.9 H (4.0-6.0) % Calcium (8.4-10.2) mg/dL Phosphorus (2.5-4.5) mg/dL 05/21/17 05/22/17 05/22/17 Range/Units 20:46 05:17 05:17 RBC 3.78 L (4.30-5.90) m/uL Hgb 10.5 L (13.0-17.5) gm/dL Hct 35.4 L (39.0-53.0) % MCHC 29.6 L (31.0-37.0) g/dL Sodium 133 L (137-145) mmol/L BUN 55 H (9-20) mg/dL Creatinine 10.60 H* (0.66-1.25) mg/dL Glucose 204 H (74-99) mg/dL POC Glucose (mg/dL) 181 H (75-99) mg/dL Hemoglobin A1c (4.0-6.0) % Calcium 7.7 L (8.4-10.2) mg/dL Phosphorus (2.5-4.5) mg/dL 05/22/17 05/22/17 05/22/17 Range/Units 05:17 06:17 09:28 RBC (4.30-5.90) m/uL Hgb (13.0-17.5) gm/dL Hct (39.0-53.0) % MCHC (31.0-37.0) g/dL Sodium (137-145) mmol/L BUN (9-20) mg/dL Creatinine (0.66-1.25) mg/dL Glucose (74-99) mg/dL POC Glucose (mg/dL) 185 H 179 H (75-99) mg/dL Hemoglobin A1c (4.0-6.0) % Calcium (8.4-10.2) mg/dL Phosphorus 5.2 H (2.5-4.5) mg/dL 05/22/17 Range/Units 11:38 RBC (4.30-5.90) m/uL Hgb (13.0-17.5) gm/dL Hct (39.0-53.0) % MCHC (31.0-37.0) g/dL Sodium (137-145) mmol/L BUN (9-20) mg/dL Creatinine (0.66-1.25) mg/dL Glucose (74-99) mg/dL POC Glucose (mg/dL) 174 H (75-99) mg/dL Hemoglobin A1c (4.0-6.0) % Calcium (8.4-10.2) mg/dL Phosphorus (2.5-4.5) mg/dL Microbiology - Last 24 Hours (Table) 05/20/17 20:35 Blood Culture Gram Stain - Preliminary Blood 05/21/17 04:10 Gram Stain - Preliminary Peritoneal Fluid Body Fluid Culture - Preliminary 05/20/17 20:35 Blood Culture - Final Blood 05/20/17 20:31 Gram Stain - Preliminary Dialysate Body Fluid Culture - Preliminary Assessment and Plan (1) Bilateral pulmonary infiltrates on chest x-ray Narrative/Plan: IV Fortaz Current Visit: Yes Status: Acute Code(s): R91.8 - OTHER NONSPECIFIC ABNORMAL FINDING OF LUNG FIELD SNOMED Code(s): 581044734 (2) Peritonitis due to infected peritoneal dialysis catheter Narrative/Plan: Stage renal disease maintained on peritoneal dialysis 1 time intraperitoneal vancomycin on May 21 Patient was continued with intraperitoneal Fortaz 1 g daily starting May 21 Patient was started on IV vancomycin by Dr. Padilla nephrology Dr. Contreras infectious disease is following this patient as well We'll continue to follow cultures Current Visit: Yes Status: Acute Code(s): T85.71XA - INFECT/INFLM REACTION DUE TO PERITON DIALYSIS CATHETER, INIT; K65.9 - PERITONITIS, UNSPECIFIED SNOMED Code(s): 675596838 (3) Chronic renal failure Narrative/Plan: Maintained on peritoneal dialysis CAPD associated peritonitis Gram-positive bacteremia Insulin-dependent diabetes mellitus Current Visit: Yes Status: Chronic Code(s): N18.9 - CHRONIC KIDNEY DISEASE, UNSPECIFIED SNOMED Code(s): 12707644 (4) Diabetes mellitus Narrative/Plan: Diabetes mellitus well controlled on current medical therapy Current renal failure secondary to hypertension and i diabetes mellitus Current Visit: Yes Status: Chronic Code(s): E11.9 - TYPE 2 DIABETES MELLITUS WITHOUT COMPLICATIONS SNOMED Code(s): 18753328 Time with Patient: Greater than 30
--- NOTE | 2017-05-22 12:09 | XR ---
EXAMINATION TYPE: XR chest 1V portable DATE OF EXAM: 05/22/2017 HISTORY: hypoxia. REFERENCE: Previous study dated 05/20/2017. FINDINGS: The study is moderately rotated. The heart is enlarged. There is left basilar airspace dise ase either representing atelectasis or early pneumonia. There is blunting of the left CP angle. I cou ld not exclude an effusion. IMPRESSION: 1. SUBOPTIMAL EXAMINATION. 2. CARDIOMEGALY. 3. DEVELOPING LEFT BASILAR AIRSPACE DISEASE. 4. SMALL LEFT-SIDED EFFUSION.
[2017-05-22] MEDS: [UNRECOGNIZED DRUG - OTHER] INTRAPERIT SCH (12:59)
[2017-05-22] MEDS: CEFTAZIDIME INTRAPERIT SCH (12:59)
--- NOTE | 2017-05-22 13:55 | PN ---
PROGRESS NOTE DATE OF SERVICE: 05/22/2017 REASON FOR FOLLOWUP: Peritoneal dialysis associated peritonitis and bacteremia. INTERVAL HISTORY: The patient is afebrile. His blood cultures were called in positive last night for which the patient did receive a dose of vancomycin. The patient is breathing comfortably. Denies significant chest pain, shortness of breath or cough or any abdominal pain. No nausea, vomiting or diarrhea. EXAMINATION: Blood pressure is 130/51 with a pulse of 84, temperature of 98.8. He is 93% on room air. General description is a middle-aged male lying in bed in no distress. RESPIRATORY SYSTEM: Unlabored breathing. Clear to auscultation anteriorly. HEART: S1, S2. Regular rate and rhythm. ABDOMEN: Soft, no tenderness. LAB: Hemoglobin 10.5, white count 9.0. The peritoneal fluid culture is pending. The blood culture report positive for a gram-positive cocci. DIAGNOSTIC IMPRESSION AND PLAN: Patient admitted to the hospital with a peritoneal dialysis associated peritonitis, now with bacteremia. Blood cultures will be repeated to make sure no evidence of any persistent bacteremia. He will be started on vancomycin pharmacy to dose. At this time I will discontinue the Vanco and the PD catheter. If no gram-negative seen in the peritoneal dialysis fluid, Fortaz will be discontinued as well. Continue supportive care. MMODL / IJN: [id number] / MTDD
[2017-05-22 14:59] LABS: RBC, Body Fluid 10 /uL
--- NOTE | 2017-05-22 16:43 | XR ---
EXAMINATION TYPE: XR abdomen 1V DATE OF EXAM: 05/22/2017 COMPARISON: 05/20/2017 HISTORY: Nausea and abdominal pain TECHNIQUE: 2 views FINDINGS: There is no sign of intestinal obstruction or pneumoperitoneum. There is vertebroplasty at T12. There is no evidence of a mass. There are no pathologic calcifications over the kidneys. There i s dialysis tubing looped over the pelvis. This is not changed compared to last exam. There is fluid d ensity over the abdomen consistent with dialysis fluid. IMPRESSION: Nonacute abdomen. No free air. No change compared to last exam.
[2017-05-22 16:48] LABS: Glucose,Whole Blood 216 mg/dL (75-99)
[2017-05-22] MEDS: TAMSULOSIN 0.4 MG CAP.ER.24H PO SCH (18:52)
[2017-05-22 21:01] LABS: Glucose,Whole Blood 133 mg/dL (75-99)
[2017-05-22] MEDS: INSULIN DETEMIR 100 UNIT/ML 10 ML VIAL SQ SCH (21:38)
[2017-05-22] MEDS: ATORVASTATIN 80 MG TAB PO SCH (21:38)
[2017-05-23] MEDS: HEPARIN SODIUM INTRAPERIT SCH ×3 (00:22→10:25)
[2017-05-23] MEDS: DIALYSIS DEX INTRAPERIT SCH ×2 (00:22→06:07)
[2017-05-23] MEDS: ONDANSETRON 4 MG/2 ML VIAL IVP PRN ×2 (00:31→09:44)
[2017-05-23 05:55] LABS: Glucose,Whole Blood 54 mg/dL (75-99)
[2017-05-23] MEDS ORDERED: VANCOMYCIN TROUGH DUE 1 EACH MISC MISCELLANE ONE (06:00)
[2017-05-23 06:13] LABS: Glucose,Whole Blood 62 mg/dL (75-99)
[2017-05-23 06:21] LABS: CH 27.4; CHCM 30.3; HCT 32.2 % (39.0-53.0); HDW 3.02; HGB 9.9 gm/dL (13.0-17.5); Hypochromasia Marked; MCH 27.9 pg (25.0-35.0); MCHC 30.8 g/dL (31.0-37.0); MCV 90.5 fL (80.0-100.0); Mean Platelet Volume 7.7; RBC 3.56 m/uL (4.30-5.90); RDW 15.2 % (11.5-15.5)
[2017-05-23] MEDS: SEVELAMER 800 MG TAB PO SCH ×3 (06:26→17:02)
[2017-05-23] MEDS: CALCIUM ACETATE 667 MG CAP PO SCH ×3 (06:27→17:02)
[2017-05-23 06:31] LABS: Glucose,Whole Blood 53 mg/dL (75-99)
[2017-05-23 06:33] LABS: Glucose,Whole Blood 53 mg/dL (75-99)
[2017-05-23 06:33] LABS: Calcium 7.7 mg/dL (8.4-10.2); Magnesium 1.9 mg/dL (1.6-2.3); Potassium 3.5 mmol/L (3.5-5.1)
[2017-05-23 06:47] LABS: Glucose,Whole Blood 124 mg/dL (75-99)
[2017-05-23] MEDS: INSULIN ASPART 100 UNIT/ML 1 ML 10 ML VIAL SQ SCH ×3 (06:55→17:03)
[2017-05-23 08:17] LABS: Glucose,Whole Blood 97 mg/dL (75-99)
--- NOTE | 2017-05-23 09:13 | P.PN ---
Subjective Patient is seen in follow-up for end-stage renal disease. He is maintained on peritoneal dialysis. Patient presented with cloudy dialysate and is noted to have peritonitis. Fluid culture is positive for staph aureus. One set of blood culture is also positive for coagulase-negative staph. His total cell count is 455 which is higher from yesterday and his PMN count is still high at 82%. Denies chest pain or shortness of breath. There was difficulty with draining him yesterday and dialysis had to be held last night despite positional changes. No constipation. Still has abdominal discomfort. Vital signs are stable. General: The patient appeared well nourished and normally developed. HEENT: Head exam is unremarkable. Neck is without jugular venous distension. LUNGS: Lungs are clear to auscultation and percussion. Breath sounds decreased. HEART: Rate and Rhythm are regular. First and second heart sounds normal. No murmurs, rubs or gallops. ABDOMEN: Abdominal exam reveals normal bowel sounds. Generalized tenderness. EXTREMITITES: No clubbing, cyanosis, or edema. Left BKA noted. Objective - Vital Signs Vital signs: Vital Signs Temp 97.7 F 05/23/17 08:33 Pulse 76 05/23/17 08:33 Resp 16 05/23/17 08:33 BP 151/82 05/23/17 08:33 Pulse Ox 96 05/23/17 08:33 Intake & Output 05/22/17 05/23/17 05/23/17 18:59 06:59 18:59 Intake Total 450 200 Balance 450 200 Weight 88 kg 95 kg Intake: Intake, IV Titration 250 Amount Vancomycin 1,000 mg In 250 Sodium Chloride 0.9% 250 ml @ 125 mls/hr IVPB ONCE STA Rx#:[id number] Oral 200 200 Other: Voiding Method Urinal Urinal # Voids 0 0 # Bowel Movements 1 - Labs CBC & Chem 7: 05/23/17 05:34 05/23/17 05:34 Labs: Abnormal Lab Results - Last 24 Hours (Table) 05/22/17 05/22/17 05/22/17 Range/Units 05:17 09:28 11:38 RBC (4.30-5.90) m/uL Hgb (13.0-17.5) gm/dL Hct (39.0-53.0) % MCHC (31.0-37.0) g/dL Sodium (137-145) mmol/L BUN (9-20) mg/dL Creatinine (0.66-1.25) mg/dL Glucose (74-99) mg/dL POC Glucose (mg/dL) 179 H 174 H (75-99) mg/dL Calcium (8.4-10.2) mg/dL Phosphorus 5.2 H (2.5-4.5) mg/dL 05/22/17 05/22/17 05/23/17 Range/Units 16:45 20:59 05:34 RBC 3.56 L (4.30-5.90) m/uL Hgb 9.9 L (13.0-17.5) gm/dL Hct 32.2 L (39.0-53.0) % MCHC 30.8 L (31.0-37.0) g/dL Sodium (137-145) mmol/L BUN (9-20) mg/dL Creatinine (0.66-1.25) mg/dL Glucose (74-99) mg/dL POC Glucose (mg/dL) 216 H 133 H (75-99) mg/dL Calcium (8.4-10.2) mg/dL Phosphorus (2.5-4.5) mg/dL 05/23/17 05/23/17 05/23/17 Range/Units 05:34 05:53 06:12 RBC (4.30-5.90) m/uL Hgb (13.0-17.5) gm/dL Hct (39.0-53.0) % MCHC (31.0-37.0) g/dL Sodium 133 L (137-145) mmol/L BUN 56 H (9-20) mg/dL Creatinine 10.60 H* (0.66-1.25) mg/dL Glucose 53 L (74-99) mg/dL POC Glucose (mg/dL) 54 L 62 L (75-99) mg/dL Calcium 7.7 L (8.4-10.2) mg/dL Phosphorus (2.5-4.5) mg/dL 05/23/17 05/23/17 05/23/17 Range/Units 06:29 06:31 06:45 RBC (4.30-5.90) m/uL Hgb (13.0-17.5) gm/dL Hct (39.0-53.0) % MCHC (31.0-37.0) g/dL Sodium (137-145) mmol/L BUN (9-20) mg/dL Creatinine (0.66-1.25) mg/dL Glucose (74-99) mg/dL POC Glucose (mg/dL) 53 L 53 L 124 H (75-99) mg/dL Calcium (8.4-10.2) mg/dL Phosphorus (2.5-4.5) mg/dL Microbiology - Last 24 Hours (Table) 05/22/17 14:15 Gram Stain - Preliminary Dialysate Body Fluid Culture - Preliminary 05/20/17 20:31 Gram Stain - Preliminary Dialysate Body Fluid Culture - Preliminary Presumptive Staph aureus 05/20/17 20:35 Blood Culture Gram Stain - Preliminary Blood Blood Culture - Preliminary Coagulase Negative Staph 05/21/17 04:10 Gram Stain - Preliminary Peritoneal Fluid Body Fluid Culture - Preliminary Assessment and Plan Plan: Assessment: #1. End-stage renal disease maintained on peritoneal dialysis. #2. CAPD associated peritonitis. #3. Gram-positive bacteremia. #4. Insulin-dependent diabetes mellitus. #5. Chronic kidney disease mineral bone disease maintained on Renvela and PhosLo. #6. Hypertension with chronic kidney disease. Controlled. Plan: Patient received intraperitoneal vancomycin on May 21. Also started on IV vancomycin for bacteremia. Continue with intraperitoneal Fortaz 1 g daily. Started on May 21. Infectious disease following. Repeat cell count culture and Gram stain daily. Follow-up cultures. Hold antihypertensives for systolic blood pressure less than 120. Will try the exchange again one more time now and see how he does. With cell count rising and high PMNs, I am worried about refectory peritonitis. The PD catheter may need to be removed and will require temporary hemodialysis until infection completely resolves. He can then transition be back to PD. I discussed this with the patient and he understands.
[2017-05-23] MEDS: AMIODARONE 200 MG TAB PO SCH ×2 (09:39→20:37)
[2017-05-23] MEDS: amLODIPine 10 MG TAB PO SCH (09:40)
[2017-05-23] MEDS: DIVALPROEX 500 MG TABLET.DR PO SCH ×3 (09:40→17:02)
[2017-05-23] MEDS: FAMOTIDINE 20 MG TAB PO SCH (09:41)
[2017-05-23] MEDS: GABAPENTIN 300 MG CAP PO SCH ×4 (09:41→20:37)
[2017-05-23] MEDS: levETIRAcetam 250 MG TAB PO SCH (09:43)
[2017-05-23] MEDS: LEVOTHYROXINE 25 MCG TAB PO SCH (09:43)
[2017-05-23] MEDS: THIAMINE 100 MG TAB PO SCH (09:44)
[2017-05-23] MEDS: MORPHINE SULFATE 10 MG/ML SYRINGE IVP PRN (09:44)
[2017-05-23] MEDS: [UNRECOGNIZED DRUG - OTHER] INTRAPERIT SCH (10:25)
[2017-05-23] MEDS: CEFTAZIDIME INTRAPERIT SCH (10:25)
--- NOTE | 2017-05-23 11:38 | P.PN ---
Subjective Progress Note Date: 05/23/17 Principal diagnosis: Patient has a recurrent history of end-stage renal disease. Currently maintained on peritoneal dialysis. She presented to the hospital with peritonitis persistent abdominal pain. His total cell count, has come down but PMN count stays quite elevated. One set of blood cultures also came back positive for coagulase-negative staph, and staph aureus . Patient was started on IV Vanco yesterday by Dr. Mann patient has been getting Vanco in his peritoneal dialysis fluid as well I believe once every 5 days Objective - Vital Signs Vital signs: Vital Signs Temp 97.7 F 05/23/17 08:33 Pulse 76 05/23/17 08:33 Resp 16 05/23/17 08:33 BP 151/82 05/23/17 08:33 Pulse Ox 96 05/23/17 08:33 Intake & Output 05/22/17 05/23/17 05/23/17 18:59 06:59 18:59 Intake Total 450 200 Balance 450 200 Weight 88 kg 95 kg Intake: Intake, IV Titration 250 Amount Vancomycin 1,000 mg In 250 Sodium Chloride 0.9% 250 ml @ 125 mls/hr IVPB ONCE STA Rx#:[id number] Oral 200 200 Other: Voiding Method Urinal Urinal # Voids 0 0 # Bowel Movements 1 - Exam General: [Patient awake, alert and oriented times 3. Patient in no acute distress.] HEENT: [PERRL. EOMI. No pharyngeal erythema or exudate.] Neck: [No adenopathy.] Cardiac: [Heart regular in rate and rhythm. No S3. No S4. No clicks, rubs. No murmur.] Lungs: [Clear to auscultation bilaterally.] Abdomen: [No mass. No organomegaly. Bowel sounds presnt and diffuse lower abdominal pain across his belly.] Extremes: [No edema no cyanosis no claudication normal pulses, left BKA : [] Musculoskeletal: [No joint erythema, edema or tenderness.] Skin: [No rash.] Neurologic: [No lateralizing deficits. CN II - XII grossly intact.] Lymphatic: [No adenopathy.] - Labs CBC & Chem 7: 05/23/17 05:34 05/23/17 05:34 Labs: Abnormal Lab Results - Last 24 Hours (Table) 05/22/17 05/22/17 05/22/17 Range/Units 11:38 16:45 20:59 RBC (4.30-5.90) m/uL Hgb (13.0-17.5) gm/dL Hct (39.0-53.0) % MCHC (31.0-37.0) g/dL Sodium (137-145) mmol/L BUN (9-20) mg/dL Creatinine (0.66-1.25) mg/dL Glucose (74-99) mg/dL POC Glucose (mg/dL) 174 H 216 H 133 H (75-99) mg/dL Calcium (8.4-10.2) mg/dL 05/23/17 05/23/17 05/23/17 Range/Units 05:34 05:34 05:53 RBC 3.56 L (4.30-5.90) m/uL Hgb 9.9 L (13.0-17.5) gm/dL Hct 32.2 L (39.0-53.0) % MCHC 30.8 L (31.0-37.0) g/dL Sodium 133 L (137-145) mmol/L BUN 56 H (9-20) mg/dL Creatinine 10.60 H* (0.66-1.25) mg/dL Glucose 53 L (74-99) mg/dL POC Glucose (mg/dL) 54 L (75-99) mg/dL Calcium 7.7 L (8.4-10.2) mg/dL 05/23/17 05/23/17 05/23/17 Range/Units 06:12 06:29 06:31 RBC (4.30-5.90) m/uL Hgb (13.0-17.5) gm/dL Hct (39.0-53.0) % MCHC (31.0-37.0) g/dL Sodium (137-145) mmol/L BUN (9-20) mg/dL Creatinine (0.66-1.25) mg/dL Glucose (74-99) mg/dL POC Glucose (mg/dL) 62 L 53 L 53 L (75-99) mg/dL Calcium (8.4-10.2) mg/dL 05/23/17 Range/Units 06:45 RBC (4.30-5.90) m/uL Hgb (13.0-17.5) gm/dL Hct (39.0-53.0) % MCHC (31.0-37.0) g/dL Sodium (137-145) mmol/L BUN (9-20) mg/dL Creatinine (0.66-1.25) mg/dL Glucose (74-99) mg/dL POC Glucose (mg/dL) 124 H (75-99) mg/dL Calcium (8.4-10.2) mg/dL Microbiology - Last 24 Hours (Table) 05/22/17 14:15 Gram Stain - Preliminary Dialysate Body Fluid Culture - Preliminary 05/20/17 20:31 Gram Stain - Preliminary Dialysate Body Fluid Culture - Preliminary Presumptive Staph aureus 05/20/17 20:35 Blood Culture Gram Stain - Preliminary Blood Blood Culture - Preliminary Coagulase Negative Staph 05/21/17 04:10 Gram Stain - Preliminary Peritoneal Fluid Body Fluid Culture - Preliminary Assessment and Plan (1) Bilateral pulmonary infiltrates on chest x-ray Narrative/Plan: IV Fortaz Current Visit: Yes Status: Acute Code(s): R91.8 - OTHER NONSPECIFIC ABNORMAL FINDING OF LUNG FIELD SNOMED Code(s): 775828962 (2) Peritonitis due to infected peritoneal dialysis catheter Narrative/Plan: Stage renal disease maintained on peritoneal dialysis 1 time intraperitoneal vancomycin on May 21 Patient was continued with intraperitoneal Fortaz 1 g daily starting May 21 Patient was started on IV vancomycin by Dr. Padilla nephrology Dr. Contreras infectious disease is following this patient as well We'll continue to follow cultures Current Visit: Yes Status: Acute Code(s): T85.71XA - INFECT/INFLM REACTION DUE TO PERITON DIALYSIS CATHETER, INIT; K65.9 - PERITONITIS, UNSPECIFIED SNOMED Code(s): 948867888 (3) Chronic renal failure Narrative/Plan: Maintained on peritoneal dialysis CAPD associated peritonitis Identified as coagulase-negative staph, as well as staph aureus Insulin-dependent diabetes mellitus Current Visit: Yes Status: Chronic Code(s): N18.9 - CHRONIC KIDNEY DISEASE, UNSPECIFIED SNOMED Code(s): 13473091 (4) Diabetes mellitus Narrative/Plan: Diabetes mellitus well controlled on current medical therapy Current renal failure secondary to hypertension and i diabetes mellitus Current Visit: Yes Status: Chronic Code(s): E11.9 - TYPE 2 DIABETES MELLITUS WITHOUT COMPLICATIONS SNOMED Code(s): 61097783 Time with Patient: Greater than 30
[2017-05-23 11:44] LABS: Glucose,Whole Blood 126 mg/dL (75-99)
--- NOTE | 2017-05-23 13:59 | CT ---
EXAMINATION TYPE: CT brain wo con DATE OF EXAM: 05/23/2017 COMPARISON: Previous study dated 08/02/2016 HISTORY: Mental status changes CT DLP: 813.9 mGycm Automated exposure control for dose reduction was used. FINDINGS: Central structures are midline. There is no evidence of hydrocephalus. There is a cavum septum pelluc idum and cavum vergae, normal variants. There is no mass effect, midline shift or intracranial blood. There is a 2.9 cm retention cyst or polyp involving the right maxillary sinus as well as the ethmoid air cells. IMPRESSION: 1. NO ACUTE INTRACRANIAL ABNORMALITY. 2. CHRONIC SINUS MUCOSAL DISEASE.
[2017-05-23 14:11] LABS: RBC, Body Fluid 5 /uL
--- NOTE | 2017-05-23 15:25 | P.CNNES ---
History of Present Illness Consult date: 05/23/17 Reason for Consult: Patient with new left sided weakness and possible stroke. History of Present Illness: This patient is a 46-year-old right-handed white male who was admitted to [facility] on 05/20/2017 for evidence of peritonitis. Patient has a history of end-stage renal disease and has been maintained on peritoneal dialysis. Apparently on the day of admission he was noted that his dialysis fluid appeared cloudy. He was also complaining of abdominal pain. He was brought into the emergency room at [facility] and was diagnosed as having acute peritonitis. He was started on intravenous vancomycin and Fortaz. He was admitted to hospital for further management. He has been on CAPD for the past 2 years at home. He has been receiving strong antibiotic therapy however his white cell count has been rising suggesting possibility of refractory peritonitis. Nephrology is monitoring his condition closely. Patient has a history of underlying seizure disorder. He has been taking combination of Depakote and Keppra for seizure management. Today he was evaluated by Dr. Aguilar will notice that he was showing signs of left-sided weakness. There was concern for possibility of stroke in this patient. Neurology was consulted this afternoon for further assessment. Patient was sent for computed tomography scan of the brain urgently this afternoon. CAT scan came back negative for any acute intracranial abnormality. There was chronic sinusitis noted. The patient states that he does have weakness in his arms and legs. When questioned whether the left side was weaker and is hard to understand whether he felt this was a new finding for him. The patient is a very poor historian. It is unclear how long he has been treated for underlying seizure disorder. We will obtain his anticonvulsant blood levels tomorrow morning. We have recommended the patient be evaluated for possibility of myoclonus versus partial seizures. He is noted to have some frequent twitching of his entire body. This suggests possibility of dialysis-induced myoclonus. We will need to continue close monitoring of this condition as well. Given his history of seizures however he should be evaluated for complex partial seizures by undergoing a routine EEG. As noted the patient does seem to have frequent myoclonic like jerks during his examination. He should continue treatment of his end-stage renal disease as well as CAPD associated peritonitis. He is being followed by nephrology and infectious disease. We did review the results of his computed tomography scan of the brain with the patient in detail today. There is no evidence of acute stroke or hemorrhage. Neurology is now been consulted for further evaluation and recommendations. Review of Systems Constitutional: Denies chills, Denies fever Eyes: denies blurred vision, denies pain Ears, nose, mouth and throat: Denies headache, Denies sore throat Cardiovascular: Denies chest pain, Denies shortness of breath Respiratory: Denies cough Gastrointestinal: Denies abdominal pain, Denies diarrhea, Denies nausea, Denies vomiting Musculoskeletal: Denies myalgias Integumentary: Denies pruritus, Denies rash Neurological: Reports change in mentation, Reports change in speech, Reports confusion, Reports hearing difficulties, Reports memory loss, Reports paresthesias, Reports tingling, Reports tremors, Denies numbness, Denies weakness Psychiatric: Denies anxiety, Denies depression Endocrine: Denies fatigue, Denies weight change Hematologic/Lymphatic: Reports as per HPI Allergic/Immunologic: Reports as per HPI Past Medical History Past Medical History: Coronary Artery Disease (CAD), Diabetes Mellitus, Dialysis , Deep Vein Thrombosis (DVT), GERD/Reflux, Hyperlipidemia, Hypertension, Myocardial Infarction ([place]), Musculoskeletal Disorder, Renal Disease, Seizure Disorder Additional Past Medical History / Comment(s): Diabetic gastropathy, End stage renal disease currently on peritoneal dialysis , peripheral neuropathy, seizure disorder, compression fracture of the vertebral along with known history of this disease, blood clot from IV line in the upper extremity on the left, coronary artery disease, previous myocardial infarction, insulin- dependent diabetes mellitus, GE reflux, gastritis, chronic anemia, cataracts, currently on peritoneal dialysis, peripheral vascular disease with previous amputation involving a below-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 Last Myocardial Infarction Date:: 2012 History of Any Multi-Drug Resistant Organisms: MRSA Date of last positivie culture/infection: 04/08/15 MDRO Source:: Blood & Left Foot Past Surgical History: Orthopedic Surgery Additional Past Surgical History / Comment(s): amputation right toes, BKA right leg 2013, GEORGE CATARACTS,VITRECTOMY,GEORGE RETINAL SX Past Anesthesia/Blood Transfusion Reactions: No Reported Reaction Additional Past Anesthesia/Blood Transfusion Reaction / Comment(s): VERTIGO Past Psychological History: No Psychological Hx Reported Additional Psychological History / Comment(s): Single. Tobacco smoker. Denies significant alcohol or recreational drug use. Originally was from the [place] area and then moved down to [place]. Is now moved back to be with his family members in [place] since 2014. He has no experience. He denies any significant travel history. Brother has a pet dog in the home in which he lives. Relates that his 13-year-old daughter 2 years ago from suicide at the age of 13 Smoking Status: Never smoker Past Alcohol Use History: None Reported Past Drug Use History: None Reported - Past Family History Father Family Medical History: Cancer Additional Family Medical History / Comment(s): CANCER FROM [employer] Mother History Unknown: Yes Family Medical History: Cancer, Supraventricular Tachycardia (SVT) Additional Family Medical History / Comment(s): LUNG CANCER(SMOKER) Medications and Allergies Home Medications Medication Instructions Recorded Confirmed Type Atorvastatin [Lipitor] 80 mg PO HS 04/08/15 05/21/17 History Calcium Acetate [PhosLo] 667 mg PO TID-W/MEALS 04/08/15 05/21/17 History Gabapentin [Neurontin] 300 mg PO TID 04/08/15 05/21/17 History Insulin Glargine [Lantus] 10 unit SQ HS 04/08/15 05/21/17 History Levothyroxine Sodium [Synthroid] 25 mcg PO DAILY 04/08/15 05/21/17 History Insulin Aspart [NovoLOG See Protocol SQ AC-TID 05/21/15 05/21/17 History (formulary)] levETIRAcetam [Keppra] 750 mg PO Q12HR 05/21/15 05/21/17 History Famotidine [Pepcid] 20 mg PO BID 01/20/16 05/21/17 History Sevelamer [Renvela] 1,600 mg PO AC-TID 01/20/16 05/21/17 History Amiodarone [Cordarone] 200 mg PO BID 05/20/17 05/21/17 History Divalproex Sodium [Depakote] 500 mg PO TID 05/20/17 05/21/17 History Dilcia Jordan 1 tab PO DAILY 05/20/17 05/21/17 History Sildenafil Citrate [Viagra] 100 mg PO ONCE PRN 05/20/17 05/20/17 History Tamsulosin [Flomax] 0.8 mg PO PC-SUPPER 05/20/17 05/21/17 History Thiamine [Vitamin B-1] 100 mg PO DAILY 05/20/17 05/21/17 History acetaZOLAMIDE [Diamox] 125 mg PO BID 05/20/17 05/21/17 History amLODIPine [Norvasc] 10 mg PO DAILY 05/20/17 05/21/17 History Allergies Allergy/AdvReac Type Severity Reaction Status Date / Time No Known Allergies Allergy Verified 05/20/17 20:11 Physical Examination - Vital Signs Vital Signs: Vital Signs Temp Pulse Pulse Resp BP BP Pulse Ox 05/23/17 12:00 98 F 79 16 134/79 95 05/23/17 10:30 98.3 F 81 16 110/74 93 L 05/23/17 08:33 97.7 F 76 16 151/82 96 05/23/17 04:00 97.4 F L 80 17 122/71 95 05/23/17 00:00 97.5 F L 81 17 129/68 97 05/22/17 23:58 97.5 F L 81 17 129/68 97 05/22/17 20:00 97.3 F L 79 17 131/70 98 05/22/17 18:40 97.8 F 79 18 134/68 98 05/22/17 14:15 99.4 F 83 16 137/71 99 Intake and Output 05/22/17 05/23/17 05/23/17 22:59 06:59 14:59 Intake Total 200 Balance 200 Intake: Oral 200 Other: Voiding Method Urinal Urinal # Voids 0 0 # Bowel Movements 1 Weight 95 kg - Constitutional General appearance: average body habitus, cooperative - EENT EENT: PERRL, mucous membranes moist - Respiratory Respiratory: lungs clear, normal breath sounds - Cardiovascular Cardiovascular: regular rate, normal S1, normal S2 Extremities: no peripheral edema bilaterally - Gastrointestinal Gastrointestinal: normoactive bowel sounds - Integumentary Integumentary: normal - Neurologic Detailed sensory examination: intact Reflex and gait examination: intact Reflexes: 1+: ankle, bicep, knee, tricep - Musculoskeletal Musculoskeletal: no pain - Psychiatric Psychiatric: mood/affect appropriate, cooperative Results - Laboratory Findings CBC and BMP: 05/23/17 05:34 05/23/17 05:34 Abnormal Lab Findings: Abnormal Labs 05/20/17 05/20/17 05/20/17 20:31 20:35 20:35 WBC 11.4 H RBC Hgb 12.7 L Hct MCHC 30.9 L RDW 15.8 H Neutrophils # 9.0 H Sodium Potassium 3.4 L Carbon Dioxide BUN 53 H Creatinine 12.04 H* Glucose 184 H POC Glucose (mg/dL) Hemoglobin A1c Calcium 8.0 L Phosphorus AST 15 L Total Protein 5.9 L Albumin 3.0 L Amylase <30 L Lipase 21 L Urine Protein 3+ H Urine Glucose (UA) 3+ H Urine Blood Small H Urine Bacteria Rare H Urine Mucus Rare H 05/21/17 05/21/17 05/21/17 01:20 04:19 04:19 WBC 10.9 H RBC 4.12 L Hgb 11.4 L Hct 37.0 L MCHC 30.7 L RDW Neutrophils # Sodium Potassium Carbon Dioxide 21 L BUN 58 H Creatinine 11.30 H* Glucose 137 H POC Glucose (mg/dL) 120 H Hemoglobin A1c Calcium 7.7 L Phosphorus AST Total Protein Albumin Amylase Lipase Urine Protein Urine Glucose (UA) Urine Blood Urine Bacteria Urine Mucus 05/21/17 05/21/17 05/21/17 04:19 07:39 12:45 WBC RBC Hgb Hct MCHC RDW Neutrophils # Sodium Potassium Carbon Dioxide BUN Creatinine Glucose POC Glucose (mg/dL) 182 H 184 H Hemoglobin A1c 9.9 H Calcium Phosphorus AST Total Protein Albumin Amylase Lipase Urine Protein Urine Glucose (UA) Urine Blood Urine Bacteria Urine Mucus 05/21/17 05/21/17 05/22/17 17:15 20:46 05:17 WBC RBC 3.78 L Hgb 10.5 L Hct 35.4 L MCHC 29.6 L RDW Neutrophils # Sodium Potassium Carbon Dioxide BUN Creatinine Glucose POC Glucose (mg/dL) 145 H 181 H Hemoglobin A1c Calcium Phosphorus AST Total Protein Albumin Amylase Lipase Urine Protein Urine Glucose (UA) Urine Blood Urine Bacteria Urine Mucus 05/22/17 05/22/17 05/22/17 05:17 05:17 06:17 WBC RBC Hgb Hct MCHC RDW Neutrophils # Sodium 133 L Potassium Carbon Dioxide BUN 55 H Creatinine 10.60 H* Glucose 204 H POC Glucose (mg/dL) 185 H Hemoglobin A1c Calcium 7.7 L Phosphorus 5.2 H AST Total Protein Albumin Amylase Lipase Urine Protein Urine Glucose (UA) Urine Blood Urine Bacteria Urine Mucus 05/22/17 05/22/17 05/22/17 09:28 11:38 16:45 WBC RBC Hgb Hct MCHC RDW Neutrophils # Sodium Potassium Carbon Dioxide BUN Creatinine Glucose POC Glucose (mg/dL) 179 H 174 H 216 H Hemoglobin A1c Calcium Phosphorus AST Total Protein Albumin Amylase Lipase Urine Protein Urine Glucose (UA) Urine Blood Urine Bacteria Urine Mucus 05/22/17 05/23/17 05/23/17 20:59 05:34 05:34 WBC RBC 3.56 L Hgb 9.9 L Hct 32.2 L MCHC 30.8 L RDW Neutrophils # Sodium 133 L Potassium Carbon Dioxide BUN 56 H Creatinine 10.60 H* Glucose 53 L POC Glucose (mg/dL) 133 H Hemoglobin A1c Calcium 7.7 L Phosphorus AST Total Protein Albumin Amylase Lipase Urine Protein Urine Glucose (UA) Urine Blood Urine Bacteria Urine Mucus 05/23/17 05/23/17 05/23/17 05:53 06:12 06:29 WBC RBC Hgb Hct MCHC RDW Neutrophils # Sodium Potassium Carbon Dioxide BUN Creatinine Glucose POC Glucose (mg/dL) 54 L 62 L 53 L Hemoglobin A1c Calcium Phosphorus AST Total Protein Albumin Amylase Lipase Urine Protein Urine Glucose (UA) Urine Blood Urine Bacteria Urine Mucus 05/23/17 05/23/17 05/23/17 06:31 06:45 11:40 WBC RBC Hgb Hct MCHC RDW Neutrophils # Sodium Potassium Carbon Dioxide BUN Creatinine Glucose POC Glucose (mg/dL) 53 L 124 H 126 H Hemoglobin A1c Calcium Phosphorus AST Total Protein Albumin Amylase Lipase Urine Protein Urine Glucose (UA) Urine Blood Urine Bacteria Urine Mucus Assessment and Plan (1) TIA (transient ischemic attack) Current Visit: Yes Status: Acute SNOMED Code(s): 894003003 (2) Acute encephalopathy Current Visit: Yes Status: Acute SNOMED Code(s): 3185734 (3) Seizure disorder Current Visit: Yes Status: Acute SNOMED Code(s): 241749614 (4) Encounter for CAPD (continuous ambulatory peritoneal dialysis) Current Visit: Yes Status: Acute SNOMED Code(s): 015587558 (5) Peritonitis due to infected peritoneal dialysis catheter Current Visit: Yes Status: Acute SNOMED Code(s): 795275300 (6) Chronic renal failure Current Visit: Yes Status: Chronic SNOMED Code(s): 07220397 (7) Diabetes mellitus Current Visit: Yes Status: Chronic SNOMED Code(s): 17234635 Plan: This patient is a 46-year-old right-handed white male who was initially admitted to [facility] for acute peritonitis. Patient has been undergoing CAPD for treatment of end-stage renal disease. He developed abdominal pain and was found to have evidence of acute peritonitis on the day of admission which was 05/20/2017. Today he was noted by his primary care physician is demonstrating left-sided weakness. Patient is a poor historian and does also suffer from underlying seizure disorder. He is noted to have some frequent myoclonic-like jerks on examination today. Patient was sent for an emergent computed tomography scan of the brain today the results of which are noted above. CAT scan of the brain was reported negative for acute stroke or hemorrhage. The patient does have difficulty with weakness. We have recommended further evaluation of his condition including MRI of the brain as well as a routine EEG. We will continue to follow his progress closely. His overall prognosis at this time remains guarded. Time with Patient: Greater than 30
[2017-05-23 17:03] LABS: Glucose,Whole Blood 126 mg/dL (75-99)
[2017-05-23] MEDS: TAMSULOSIN 0.4 MG CAP.ER.24H PO SCH (17:04)
[2017-05-23] MEDS ORDERED: VALPROATE SODIUM 750 MG in SODIUM CHLORIDE 0.9% 50 ML IVPB STA (19:16)
[2017-05-23 20:36] LABS: Glucose,Whole Blood 121 mg/dL (75-99)
[2017-05-23] MEDS: ATORVASTATIN 80 MG TAB PO SCH (20:37)
[2017-05-23] MEDS: INSULIN DETEMIR 100 UNIT/ML 10 ML VIAL SQ SCH (20:37)
[2017-05-23] MEDS: levETIRAcetam IV 750 MG in SODIUM CHLORIDE 0.9% 100 ML IVPB SCH (21:40)
[2017-05-23] MEDS: VALPROATE SODIUM 500 MG in SODIUM CHLORIDE 0.9% 50 ML IVPB SCH (23:39)
--- NOTE | 2017-05-24 05:02 | PN ---
PROGRESS NOTE DATE OF SERVICE: 05/23/2017. REASON FOR FOLLOWUP: 1. Peritoneal dialysis associated peritonitis. 2. Positive blood culture. INTERVAL HISTORY: The patient is afebrile, has been breathing comfortably. Denies any chest pain, shortness of breath or cough. Abdominal pain is currently controlled. No nausea, vomiting, or any diarrhea. EXAMINATION: Blood pressure 152/80 with a pulse of 83. Temperature of 98.7. General description is a middle-aged male lying in bed in no distress. RESPIRATORY SYSTEM: Unlabored breathing. Clear to auscultation anteriorly. HEART: S1, S2. Regular rate and rhythm. ABDOMEN: Soft, no tenderness. LABS: The white cell count in peritoneal fluid is down to 149 with white count normal at 9.0. The peritoneal fluid culture with MSSA. Blood culture with coagulase-negative Staph. DIAGNOSTIC IMPRESSION AND PLAN: Patient with MSSA peritoneal dialysis associated peritonitis. Antibiotic will be adjusted to cefazolin. The patient will need removal of this peritoneal dialysis catheter in order to completely clear this infection. This will be discussed with Nephrology. As no gram negative has been grown we will discontinue the Fortaz. MMODL / IJN: [id number] /
[2017-05-24 06:27] LABS: Glucose,Whole Blood 105 mg/dL (75-99)
[2017-05-24 06:31] LABS: CH 27.9; CHCM 30.8; HCT 32.3 % (39.0-53.0); Hypochromasia Marked; MCH 28.1 pg (25.0-35.0); MCV 90.6 fL (80.0-100.0); Mean Platelet Volume 7.2; RBC 3.56 m/uL (4.30-5.90); WBC 7.5 k/uL (3.8-10.6)
[2017-05-24 06:43] LABS: Calcium 7.8 mg/dL (8.4-10.2); Potassium 4.2 mmol/L (3.5-5.1)
--- NOTE | 2017-05-24 08:20 | MR ---
EXAMINATION TYPE: MR brain wo con DATE OF EXAM: 05/24/2017 COMPARISON: CT brain dated 05/23/2017. HISTORY: Patient with history of seizures and left sided weakness TECHNIQUE: Multiplanar, multisequence images of the brain and brainstem is performed without intravenous contras t. FINDINGS: Diffusion weighted images demonstrate no evidence of a recent infarct or other diffusion ab normality. CSF attenuated extra-axial 2.3 x 1.0 cm x 3.0 cystic lesion is seen within the middle experimental mechanic spacecraft nial fossa with mild mass effect upon the left temporal lobe without resultant edema. Mild periventri cular T2/FLAIR hyperintense white matter change is most pronounced within the occipital and parietal lobes such as on T2/FLAIR axial images 17 through 25. There is no associated mass effect. Additional foci of nonspecific white matter change that are demonstrated as T2/FLAIR hyperintensity are seen wit hin the subcortical and pericallosal white matter measuring up to 7 mm within the right frontal lobe. The ventricular system and cisternal spaces are normal in size and appearance. The brain volume is age appropriate. Incidental note is made of a cavum septum pellucidum et verge. Midline structures demonstrate normal morphology. The craniocervical junction appears within normal limits. The dural venous sinuses appear patent. 2.4 cm right mucosal retention cyst is seen non depen dently in the maxillary sinus. Minimal mucosal thickening is present within the ethmoid sinuses. The remaining paranasal sinuses are well aerated. The remaining visualized sinuses are clear and the glob es are intact. The mesial temporal lobes appear symmetric with no evidence of mesial temporal scleros is. Nature intracranial flow voids are maintained. No cerebellar pontine angle mass. IMPRESSION: 1. Nonspecific white matter change predominating within the posterior circulation in the parietal and occipital lobes. Differential considerations are for posterior reversible encephalopathy syndrome (P RES), severe hypoglycemia, or in immunocompromised patient progressive multifocal leukoencephalopathy . No associated mass effect or restricted diffusion to indicate acute infarct. Additional rounded and oval foci of nonspecific white matter change are seen within the frontal lobes, right greater than l eft, and are more typical of microangiopathy/vasculitis or less likely demyelinating disease. 2. Incidentally noted 2.3 cm left middle cranial fossa arachnoid cyst with minimal mass effect upon t he temporal lobe. 3. Right maxillary nondependent 3.0 cm mucosal retention cyst. A Yellow message has been communicated to Arnold Garvin via the [employer] system on 05/24/2017 8:17 AM, Message ID [id number].
[2017-05-24] MEDS ORDERED: ceFAZolin IN SWFI 2 GM/20 ML SYRINGE IVP SCH (09:00)
[2017-05-24] MEDS ORDERED: ceFAZolin 2 GM in SODIUM CHLORIDE 0.9% 100 ML IVPB SCH (09:00)
[2017-05-24] MEDS: CALCIUM ACETATE 667 MG CAP PO SCH ×3 (09:44→16:57)
[2017-05-24] MEDS: amLODIPine 10 MG TAB PO SCH (09:45)
[2017-05-24] MEDS: AMIODARONE 200 MG TAB PO SCH ×2 (09:45→22:04)
[2017-05-24] MEDS: INSULIN ASPART 100 UNIT/ML 1 ML 10 ML VIAL SQ SCH ×3 (09:45→17:35)
[2017-05-24] MEDS: FAMOTIDINE 20 MG TAB PO SCH (09:45)
[2017-05-24] MEDS: LEVOTHYROXINE 25 MCG TAB PO SCH (09:45)
[2017-05-24] MEDS: SEVELAMER 800 MG TAB PO SCH ×3 (09:45→16:57)
[2017-05-24] MEDS: THIAMINE 100 MG TAB PO SCH (09:46)
[2017-05-24] MEDS: levETIRAcetam IV 750 MG in SODIUM CHLORIDE 0.9% 100 ML IVPB SCH ×2 (09:52→22:03)
[2017-05-24] MEDS ORDERED: IV FLUID CONTINUATION 450 ML IV ONE (10:37)
[2017-05-24] MEDS ORDERED: LIDOCAINE 2% INJ 20 MG/ML SQ ONE ×2 (10:54)
[2017-05-24] MEDS ORDERED: IODIXANOL 320 MG/ML 100 ML IV ONE (11:05)
--- NOTE | 2017-05-24 11:07 | PN ---
PROGRESS NOTE DATE OF SERVICE: 05/24/2017 REASON FOR FOLLOWUP: 1. PD catheter associated peritonitis MSSA. 2. Positive blood culture with Coagulase negative likely contaminant. Repeat blood cultures negative. INTERVAL HISTORY: The patient is afebrile. However, the patient is noted to be sleepy, lethargic this morning. Responding to sternal rub. Blood sugar normal per the RN. No nausea, vomiting, or any diarrhea reported. PHYSICAL EXAMINATION: On examination, blood pressure 140/78 with a pulse of 88, temperature of 97.2. He is 91% on 4 L nasal cannula. General description is a middle-aged male lying in bed in no distress. RESPIRATORY SYSTEM: Unlabored breathing, clear to auscultation anteriorly. HEART: S1, S2. Regular rate and rhythm. ABDOMEN: Soft, no tenderness. Right leg wound with scab on. No evidence of any cellulitis. LABS: Hemoglobin 10, white count 7.5. BUN of 63, creatinine of 11.30. Blood culture repeat 05/22 has been negative. DIAGNOSTIC IMPRESSION AND PLAN: Patient with MSSA peritoneal dialysis catheter associated peritonitis. The patient needs to have the peritoneal dialysis catheter removed for which general surgery has been consulted. He is cleared to go for a PermCath placement for hemodialysis as blood culture negative and initial blood culture could be more likely a contamination. Plan of care was discussed in detail with Nephrology. MMMÓNICAL / COOKIEN: [id number] /
--- NOTE | 2017-05-24 11:21 | CDI ---
In responding to this query, please exercise your independent professional judgment. The [facility] Coding Staff and Clinical Documentation Specialists appreciate your assistance in clarifying documentation, maintaining compliance with coding guidelines, accurately documenting patients condition and capturing severity of illness. The fact that a question is asked does not imply that any particular answer is desired or expected. Communication forms are a method of clarifying documentation and are not made part of the Legal Health Record. Thank you in advance for your clarification. Last Revision, May 2015 Gretchen Breen [address] [place] [address] Documentation Clarification Form Date: 05/24/2017 11:13:00 AM From: Shavonne Mosquera RN, CCDS Admit Date: 05/20/2017 10:39:00 PM Patient Name: Greg Miles Visit Number: [id number] Dr. Scott Aguilar/Tamela Tomlinson CNP A diagnosis of anemia lacks specificity to accurately reflect your patients severity of condition and clarification is needed. Patient history/risk factors: ESRD, CAPD with peritonitis. DM2, hx of DVT, HTN, seizure disorder, chronic anemia Clinical Indicators: Hemoglobin: 12..7/11.4/10.5/9.9/10 Hematocrit: 41.1/37/35.4/32.2/32.3 Treatment: Labs AM Daily Heparin added to Diasylate In order to capture the severity of condition, please clarify the type of anemia and etiology if known: Acute blood loss anemia Acute on chronic blood loss anemia Chronic blood loss anemia Iron deficiency anemia Hemolytic anemia Drug induced anemia Anemia due to malignancy Nutritional anemia Anemia of chronic kidney disease Unable to determine Other, please specify Please document in your progress notes and discharge summary in order to capture severity of illness and risk of mortality. Include clinical findings that support your diagnosis. FYI: Press F11 to launch patient chart. YANI
--- NOTE | 2017-05-24 11:38 | CDI ---
In responding to this query, please exercise your independent professional judgment. The [facility] Coding Staff and Clinical Documentation Specialists appreciate your assistance in clarifying documentation, maintaining compliance with coding guidelines, accurately documenting patients condition and capturing severity of illness. The fact that a question is asked does not imply that any particular answer is desired or expected. Communication forms are a method of clarifying documentation and are not made part of the Legal Health Record. Thank you in advance for your clarification. Last Revision, May 2015 Gretchen Breen [address] [facility] [place] [address] Documentation Clarification Form Date: 05/24/2017 11:23:00 AM From: Shavonne Mosquera RN, CCDS Admit Date: 05/20/2017 10:39:00 PM Patient Name: Greg Miles Visit Number: [id number] Dr. Scott Aguilar Encephalopathy is documented in the Neurology Consult. History/Risk factors: Pt became unresponsive and apnic in EC and received CPR, Peritoneal dialysis associated peritonitis, DM2, ESRD, seizure disorder Clinical Indicators: Labs: decreasing Hgb, increasing BUN and creatinine, cultures + for Staph in peritoneal fluid MRI Brain: Nonspecific white matter change predominating within the posterior circulation in the parietal and occipital lobes. Differential considerations are for posterior reversible encephalopathy syndrome (PRES), severe hypoglycemia , or in immunocompromised patient progressive multifocal leukoencephalopathy. No associated mass effect or restricted diffusion to indicate acute infarct. Additional rounded and oval foci of nonspecific white matter change are seen within the frontal lobes, right greater than left, and are more typical of microangiopathy/vasculitis or less likely demyelinating disease. Treatment: Consults: Neurology, ID, Nephrology Diasylate with Vancomyacin added, Vanco IVPB, IVPB Rocephin IV Keppra In your professional opinion, can you please clarify the specific type of encephalopathy, if known? Anoxic Encephalopathy Hypertensive Encephalopathy Metabolic Encephalopathy Septic Encephalopathy Toxic Encephalopathy Traumatic Encephalopathy Hepatic Encephalopathy - Indicate if any complications: Coma, other disease process? - Indicate whether acute, sub-acute or chronic? - Causal Condition: Alcoholism, Hepatitis, other disease process? Other, please specify Unable to determine Please document in your progress notes and discharge summary in order to capture severity of illness and risk of mortality. Include clinical findings that support your diagnosis. FYI: Press F11 to launch patient chart. MTDD
[2017-05-24 11:58] LABS: Glucose,Whole Blood 106 mg/dL (75-99)
[2017-05-24] MEDS: VALPROATE SODIUM 500 MG in SODIUM CHLORIDE 0.9% 50 ML IVPB SCH ×2 (12:15→17:47)
--- NOTE | 2017-05-24 13:07 | XR ---
EXAMINATION TYPE: XR chest 1V portable DATE OF EXAM: 05/24/2017 Comparison: 05/22/2017 Clinical History: 46-year-old male placement for dialysis port Findings: The low lung volumes. Cardiac vascular markings with perihilar and interstitial densities, increased from prior. Patchy bibasilar opacities. Right-sided double-lumen hemodialysis catheter with tips at the cavoatrial junction and upper right atrium. Cardiomediastinal silhouette, aorta, and pulmonary va sculature are within normal limits. Lungs and pleural spaces are clear. Impression: 1. Hypoventilatory changes and suspected pulmonary vascular congestion/early interstitial edema. 2. Right-sided double-lumen hemodialysis catheter with tips at the cavoatrial junction and upper righ t atrium.
--- NOTE | 2017-05-24 13:12 | CONS ---
CONSULTATION This is a 46-year-old gentleman who was seen by consult for placement of dialysis catheter. The patient has been on peritoneal dialysis. The patient noticed to have a cloudy fluid and found to be infected catheter. Patient positive for gram positive cocci. He has been complaining of some vomiting. EXAMINATION: Patient was seen in the label fuser tender. NECK: Supple. No bruit appreciated. CHEST: Clear to auscultation. First and second sounds normal. Abdomen is slightly tender. Patient has peritoneal dialysis. Bowel sounds are present. Vascular examination brachial and femoral pulses are present. IMPRESSION: 1. End-stage renal disease. 2. Chronic obstructive pulmonary disease associated peritonitis. 3. Gram-positive bacteremia. 4. Insulin-dependent diabetes mellitus. 5. History of hypertension. PLAN: Placement of the dialysis catheter. Risks and complications discussed including bleeding, infection, thrombosis. Thank very much for the consultation. AMA / GISELA: [id number] /
--- NOTE | 2017-05-24 14:56 | P.PN ---
Subjective Progress Note Date: 05/24/17 05/21/2017 46-year-old male who presented to the emergency room on 05/20/2017 with a chief complaint of abdominal pain and cloudy peritoneal fluid. The patient states he has had abdominal pain that has persisted for two days. He also complained of intermittent nausea and vomiting. He states that he noticed his peritoneal fluid was becoming cloudy as well. The patient has a history of end-stage renal disease. He states he has been on peritoneal dialysis for 2-1/2 years. He states prior to that he did hemodialysis for 8 months but he did not tolerate and had multiple side effects and was then transitioned to peritoneal dialysis. He also has history of coronary artery disease, diabetes mellitus, DVT, gastro-esophageal reflux disease, hypertension, hyperlipidemia, myocardial infarction, and peripheral vascular disease with a left [id number] mutation and a right foot partial amputation. He states he has a wound to his right calf that is not healing. He also has a history of MRSA in 2014 in his blood and left foot. In the emergency room, a chest x-ray was completed which showed bilateral infiltrates. KUB was completed which showed small pneumoperitoneum which was thought to be related to dialysis port. Peritoneal fluid was sent for culture. Sodium on admission was 139, potassium 3.4, BUN 53, creatinine 12.04, WBCs 11.4, hemoglobin 12.7, platelets 176. Troponin was negative 1. Lactic acid on admission was 1.3 It was also noted that while the patient was in the emergency room he received IV pain medication and became unresponsive and apneic and it was difficult to feel a pulse. ER staff started CPR and the patient was revived. The patient also received Narcan. After CPR, there was thoughts of possible rib fractures. Chest xray was completed which was negative for rib fractures. IV pain medication has since been discontinued. The patient was admitted to the hospital under the care of Dr. Aguilar. Consultations were placed to nephrology. The patient was seen and examined at the bedside with Dr. Aguilar on rounds. He states he is feeling okay today. He does continue to complain of abdominal pain but states it is improving. He denies nausea or vomiting. He is tolerating a consistent carbohydrate diet without nausea or vomiting. He remains in contact isolation for history of MRSA infection. He remains on Rocephin and Vanco. He remains on 2L NC with oxygen saturations greater than 92%. Blood pressure is stable. He is afebrile. 05/22/2017 (Notes per Dr. Aguilar) Patient has a recurrent history of end-stage renal disease. Currently maintained on peritoneal dialysis. She presented to the hospital with peritonitis persistent abdominal pain. His total cell count, has come down but PMN count stays quite elevated. One set of blood cultures also came back positive for gram-positive cocci. Patient has been vomiting with some retching today. 05/23/2017 (Notes per Dr. Aguilar) Patient has a recurrent history of end-stage renal disease. Currently maintained on peritoneal dialysis. She presented to the hospital with peritonitis persistent abdominal pain. His total cell count, has come down but PMN count stays quite elevated. One set of blood cultures also came back positive for coagulase-negative staph, and staph aureus . Patient was started on IV Vanco yesterday by Dr. Mann patient has been getting Vanco in his peritoneal dialysis fluid as well I believe once every 5 days 05/24/2017 Patient was noted to have left sided weakness over the weekend. Neuro was consulted. CT of the brain was completed and was negative for acute process. Patient underwent MRI of the brain which revealed nonspecific white matter changes predominating within the posterior circulation in the parietal and occipital lobes, 2.3cm left middle cranial fossa arachnoid cyst with minimal mass effect on temporal lobe, and 3cm maxillary cyst. The patient has had problems with his PD draining properly. Nephrology is following. The patient will need PD catheter removed to ensure infection completely resolves. In the meantime, Dr. Ramirez was consulted for hemodialysis catheter placement. The patient will require short term HD until infection resolves and then can transition back to PD per nephrology. General surgery has been consulted for removal of PD catheter. Infectious disease is following. Positive for MSSA. Patients blood cultures positive for coagulase negative, which is likely a contaminated specimen. Repeat cultures are negative. Objective - Vital Signs Vital signs: Vital Signs Temp 99.0 F 05/24/17 10:34 Pulse 80 05/24/17 10:34 Resp 18 05/24/17 10:34 BP 137/76 05/24/17 10:34 Pulse Ox 96 05/24/17 10:34 Intake & Output 05/23/17 05/24/17 05/24/17 18:59 06:59 18:59 Intake Total 200 25 Balance 200 25 Weight 95 kg Intake: IV 25 Intake, IV Titration 200 Amount Valproate Sodium 500 mg 50 In Sodium Chloride 0.9% 50 ml @ 50 mls/hr IVPB Q8HR [facility] Rx#:[id number] Valproate Sodium 750 mg 50 In Sodium Chloride 0.9% 50 ml @ 50 mls/hr IVPB ONCE STA Rx#:[id number] levETIRAcetam IV 750 mg 100 In Sodium Chloride 0.9% 100 ml @ 400 mls/hr IVPB Q12HR [facility] Rx#:[id number] Oral 0 Other: Voiding Method Urinal Urinal # Voids 0 0 - Exam GENERAL: This is a 46-year-old male who is very lethargic at the time of examination HEENT: Head is atraumatic, normocephalic. Pupils are equal, round, and reactive to light. Sclerae anicteric. Conjunctivae are clear. Mucus membranes of the mouth are moist. Neck is supple. RESPIRATORY: Clear to ausculation. No wheezes, rales, or rhonchi. No use of accessory muscles. Patient maintaining oxygen saturation greater than 92%. No chest wall tenderness is noted on palpation or with deep breathing. CARDIOVASCULAR: Regular rate and rhythm. S1 and S2 noted. No systolic or diastolic murmur auscultated. No JVD noted. No S3 or S4 noted. GASTROINTESTINAL: Peritoneal dialysis catheter present. Pain and tenderness upon palpation. No distention noted. Abdomen soft and round. Normal active bowel sounds auscultated x 4 quadrants. INTEGUMENTARY: Chronic wound noted to right calf. No cyanosis. No jaundice. No rashes noted. No cellulitis noted. EXTREMITIES: Left below the knee amputation. Right partial foot amputation. No evidence of peripheral edema. No calf tenderness noted. NEUROLOGIC: Cranial nerves II-XII intact. PSYCHIATRIC: lethargic. Only able to voice one word answers - Labs CBC & Chem 7: 05/24/17 05:42 05/24/17 05:42 Labs: Abnormal Lab Results - Last 24 Hours (Table) 05/23/17 05/23/17 05/23/17 Range/Units 11:40 16:41 20:31 RBC (4.30-5.90) m/uL Hgb (13.0-17.5) gm/dL Hct (39.0-53.0) % Sodium (137-145) mmol/L Chloride (98-107) mmol/L BUN (9-20) mg/dL Creatinine (0.66-1.25) mg/dL Glucose (74-99) mg/dL POC Glucose (mg/dL) 126 H 126 H 121 H (75-99) mg/dL Calcium (8.4-10.2) mg/dL 05/24/17 05/24/17 05/24/17 Range/Units 05:42 05:42 06:26 RBC 3.56 L (4.30-5.90) m/uL Hgb 10.0 L (13.0-17.5) gm/dL Hct 32.3 L (39.0-53.0) % Sodium 130 L (137-145) mmol/L Chloride 97 L (98-107) mmol/L BUN 63 H (9-20) mg/dL Creatinine 11.30 H* (0.66-1.25) mg/dL Glucose 110 H (74-99) mg/dL POC Glucose (mg/dL) 105 H (75-99) mg/dL Calcium 7.8 L (8.4-10.2) mg/dL Microbiology - Last 24 Hours (Table) 05/21/17 04:10 Gram Stain - Final Peritoneal Fluid Body Fluid Culture - Final Staphylococcus aureus 05/23/17 12:00 Gram Stain - Preliminary Dialysate Body Fluid Culture - Preliminary 05/20/17 20:31 Gram Stain - Final Dialysate Body Fluid Culture - Final Staphylococcus aureus 05/22/17 14:15 Gram Stain - Preliminary Dialysate Body Fluid Culture - Preliminary 05/22/17 14:25 Blood Culture - Preliminary Blood No Growth after 24 hours Assessment and Plan Plan: ASSESSMENT: Peritonitis, secondary to peritoneal dialysis, cultures positive for MSSA End-stage renal disease, on peritoneal dialysis Abdominal pain, nausea, and vomiting secondary to peritonitis Diabetes mellitus, type II, hemoglobin A1c 9.9% Coronary artery disease with previous myocardial infarction Peripheral vascular disease with history of left BKA and right partial foot amputation Anemia of chronic disease secondary to CKD Acute metabolic encephalopathy Left sided weakness, possible TIA History of MRSA infection in left lower extremity Hypertension History of seizures PLAN: -Nephrology on consult. Appreciate recommendations and input -Patient to received HD catheter placement today and then HD -Antibiotic regimen per infectious disease. Currently on cefazolin 2 g IV every 24 hours -Dr. Adorno consulted regarding need for removal of peritoneal dialysis catheter -Neurology on consult. Appreciate recommendations and input -Await results of EEG -Home meds as appropriate -Monitor labs -Monitor capillary blood glucose Accu-Cheks before meals and at bedtime -Continue humalog sliding scale before meals and at bedtime -Continue 10 units Levemir at bedtime -GI prophylaxis: Pepcid 20mg PO BID -DVT prophylaxis: Venodynes to right lower extremity -Monitor vital signs and address as appropriate -Discharge planning: Patient wishing to return home, but may likely require ECF placement. -Further recommendations pending patient's course Nurse practitioner note has been reviewed by physician. Signing provider agrees with the documented findings, assessment, and plan of care.
[2017-05-24 15:32] LABS: Glucose,Whole Blood 141 mg/dL (75-99)
--- NOTE | 2017-05-24 16:32 | P.GSCN ---
History of Present Illness Consult date: 05/24/17 Reason for Consult: Catheter associated peritonitis History of present illness: Patient hospitalized with suspected catheter-related peritonitis. He had cloudy exchanges while at home. He has not had prior episodes of peritonitis. Some difficulty draining the fluid recently. Symptoms seem to began around 05/19. Fluid cultures have shown staph. The patient had a permacath placed today. We were consulted for PD cath removal. Review of Systems ROS unobtainable: due to mental status Past Medical History Past Medical History: Coronary Artery Disease (CAD), Diabetes Mellitus, Dialysis , Deep Vein Thrombosis (DVT), GERD/Reflux, Hyperlipidemia, Hypertension, Myocardial Infarction ([place]), Musculoskeletal Disorder, Renal Disease, Seizure Disorder Additional Past Medical History / Comment(s): Diabetic gastropathy, End stage renal disease currently on peritoneal dialysis , peripheral neuropathy, seizure disorder, compression fracture of the vertebral along with known history of this disease, blood clot from IV line in the upper extremity on the left, coronary artery disease, previous myocardial infarction, insulin- dependent diabetes mellitus, GE reflux, gastritis, chronic anemia, cataracts, currently on peritoneal dialysis, peripheral vascular disease with previous amputation involving a below-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 Last Myocardial Infarction Date:: 2012 History of Any Multi-Drug Resistant Organisms: MRSA Year Discovered:: 04/08/15 MDRO Source:: Blood & Left Foot Past Surgical History: Orthopedic Surgery Additional Past Surgical History / Comment(s): amputation right toes, BKA right leg 2013, GEORGE CATARACTS,VITRECTOMY,GEORGE RETINAL SX Past Anesthesia/Blood Transfusion Reactions: No Reported Reaction Additional Past Anesthesia/Blood Transfusion Reaction / Comm: VERTIGO Past Psychological History: No Psychological Hx Reported Additional Psychological History / Comment(s): Single. Tobacco smoker. Denies significant alcohol or recreational drug use. Originally was from the [place] area and then moved down to [place]. Is now moved back to be with his family members in [place] since 2014. He has no experience. He denies any significant travel history. Brother has a pet dog in the home in which he lives. Relates that his 13-year-old daughter 2 years ago from suicide at the age of 13 Smoking Status: Never smoker Past Alcohol Use History: None Reported Past Drug Use History: None Reported - Past Family History Father Family Medical History: Cancer Additional Family Medical History / Comment(s): CANCER FROM [employer] Mother History Unknown: Yes Family Medical History: Cancer, Supraventricular Tachycardia (SVT) Additional Family Medical History / Comment(s): LUNG CANCER(SMOKER) Medications and Allergies Home Medications Medication Instructions Recorded Confirmed Type Atorvastatin [Lipitor] 80 mg PO HS 04/08/15 05/21/17 History Calcium Acetate [PhosLo] 667 mg PO TID-W/MEALS 04/08/15 05/21/17 History Gabapentin [Neurontin] 300 mg PO TID 04/08/15 05/21/17 History Insulin Glargine [Lantus] 10 unit SQ HS 04/08/15 05/21/17 History Levothyroxine Sodium [Synthroid] 25 mcg PO DAILY 04/08/15 05/21/17 History Insulin Aspart [NovoLOG See Protocol SQ AC-TID 05/21/15 05/21/17 History (formulary)] levETIRAcetam [Keppra] 750 mg PO Q12HR 05/21/15 05/21/17 History Famotidine [Pepcid] 20 mg PO BID 01/20/16 05/21/17 History Sevelamer [Renvela] 1,600 mg PO AC-TID 01/20/16 05/21/17 History Amiodarone [Cordarone] 200 mg PO BID 05/20/17 05/21/17 History Divalproex Sodium [Depakote] 500 mg PO TID 05/20/17 05/21/17 History Dilcia Jordan 1 tab PO DAILY 05/20/17 05/21/17 History Sildenafil Citrate [Viagra] 100 mg PO ONCE PRN 05/20/17 05/20/17 History Tamsulosin [Flomax] 0.8 mg PO PC-SUPPER 05/20/17 05/21/17 History Thiamine [Vitamin B-1] 100 mg PO DAILY 05/20/17 05/21/17 History acetaZOLAMIDE [Diamox] 125 mg PO BID 05/20/17 05/21/17 History amLODIPine [Norvasc] 10 mg PO DAILY 05/20/17 05/21/17 History Allergies Allergy/AdvReac Type Severity Reaction Status Date / Time No Known Allergies Allergy Verified 05/20/17 20:11 Surgical - Exam Vital Signs Temp Pulse Resp BP Pulse Ox 98.6 F 88 16 135/81 99 05/20/17 19:25 05/20/17 19:25 05/20/17 19:25 05/20/17 19:25 05/20/17 19:25 Physical exam: General: Well-developed, well-nourished HEENT: Normocephalic, sclerae nonicteric Abdomen: Nontender, nondistended, catheter right lower quadrant without erythema Extremities: No edema Neuro: Sleepy but arousable, not oriented, no apparent discomfort Results - Labs 05/24/17 05:42 05/24/17 05:42 Abnormal Lab Results - Last 24 Hours (Table) 05/23/17 05/23/17 05/24/17 Range/Units 16:41 20:31 05:42 RBC 3.56 L (4.30-5.90) m/uL Hgb 10.0 L (13.0-17.5) gm/dL Hct 32.3 L (39.0-53.0) % Sodium (137-145) mmol/L Chloride (98-107) mmol/L BUN (9-20) mg/dL Creatinine (0.66-1.25) mg/dL Glucose (74-99) mg/dL POC Glucose (mg/dL) 126 H 121 H (75-99) mg/dL Calcium (8.4-10.2) mg/dL 05/24/17 05/24/17 05/24/17 Range/Units 05:42 06:26 11:57 RBC (4.30-5.90) m/uL Hgb (13.0-17.5) gm/dL Hct (39.0-53.0) % Sodium 130 L (137-145) mmol/L Chloride 97 L (98-107) mmol/L BUN 63 H (9-20) mg/dL Creatinine 11.30 H* (0.66-1.25) mg/dL Glucose 110 H (74-99) mg/dL POC Glucose (mg/dL) 105 H 106 H (75-99) mg/dL Calcium 7.8 L (8.4-10.2) mg/dL 05/24/17 Range/Units 15:20 RBC (4.30-5.90) m/uL Hgb (13.0-17.5) gm/dL Hct (39.0-53.0) % Sodium (137-145) mmol/L Chloride (98-107) mmol/L BUN (9-20) mg/dL Creatinine (0.66-1.25) mg/dL Glucose (74-99) mg/dL POC Glucose (mg/dL) 141 H (75-99) mg/dL Calcium (8.4-10.2) mg/dL Microbiology - Last 24 Hours (Table) 05/21/17 04:10 Gram Stain - Final Peritoneal Fluid Body Fluid Culture - Final Staphylococcus aureus 05/23/17 12:00 Gram Stain - Preliminary Dialysate Body Fluid Culture - Preliminary 05/20/17 20:31 Gram Stain - Final Dialysate Body Fluid Culture - Final Staphylococcus aureus 05/22/17 14:15 Gram Stain - Preliminary Dialysate Body Fluid Culture - Preliminary 05/22/17 14:25 Blood Culture - Preliminary Blood No Growth after 24 hours Diabetes panel 05/24/17 Range/Units 05:42 Sodium 130 L (137-145) mmol/L Potassium 4.2 (3.5-5.1) mmol/L Chloride 97 L (98-107) mmol/L Carbon Dioxide 23 (22-30) mmol/L BUN 63 H (9-20) mg/dL Creatinine 11.30 H* (0.66-1.25) mg/dL Glucose 110 H (74-99) mg/dL Calcium 7.8 L (8.4-10.2) mg/dL Calcium panel 05/24/17 Range/Units 05:42 Calcium 7.8 L (8.4-10.2) mg/dL Pituitary panel 05/24/17 Range/Units 05:42 Sodium 130 L (137-145) mmol/L Potassium 4.2 (3.5-5.1) mmol/L Chloride 97 L (98-107) mmol/L Carbon Dioxide 23 (22-30) mmol/L BUN 63 H (9-20) mg/dL Creatinine 11.30 H* (0.66-1.25) mg/dL Glucose 110 H (74-99) mg/dL Calcium 7.8 L (8.4-10.2) mg/dL Adrenal panel 05/24/17 Range/Units 05:42 Sodium 130 L (137-145) mmol/L Potassium 4.2 (3.5-5.1) mmol/L Chloride 97 L (98-107) mmol/L Carbon Dioxide 23 (22-30) mmol/L BUN 63 H (9-20) mg/dL Creatinine 11.30 H* (0.66-1.25) mg/dL Glucose 110 H (74-99) mg/dL Calcium 7.8 L (8.4-10.2) mg/dL Assessment and Plan (1) Peritonitis due to infected peritoneal dialysis catheter Narrative/Plan: Will schedule for peritoneal dialysis catheter removal tomorrow. Continue antibiotics. Continue dialysis per nephrology. Current Visit: Yes Status: Acute Code(s): T85.71XA - INFECT/INFLM REACTION DUE TO PERITON DIALYSIS CATHETER, INIT; K65.9 - PERITONITIS, UNSPECIFIED SNOMED Code(s): 203212216
[2017-05-24] MEDS: TAMSULOSIN 0.4 MG CAP.ER.24H PO SCH (16:57)
[2017-05-24 17:00] LABS: Glucose,Whole Blood 135 mg/dL (75-99)
[2017-05-24] MEDS: ceFAZolin IN SWFI 2 GM/20 ML SYRINGE IVP SCH (17:34)
[2017-05-24 21:01] LABS: Glucose,Whole Blood 146 mg/dL (75-99)
[2017-05-24] MEDS ORDERED: HEPARIN SODIUM,PORCINE 5,000 UNIT/ML 1 ML VIAL ONE (21:15)
--- NOTE | 2017-05-24 21:37 | EEG ---
ELECTROENCEPHALOGRAM REPORT DATE OF EE05/24/2017. REFERRING PHYSICIAN: Dr. Hough. INTERPRETING PHYSICIAN: Dr. Arnold Garvin. INDICATION FOR EXAMINATION: This patient is a 46-year-old male with a history of chronic end-stage renal disease, on hemodialysis. The patient now being evaluated for new left-sided weakness and possible TIA versus stroke. The patient has previous history of seizure disorder. AGE: [age]. EEG FINDINGS: A routine 21 channel awake digital EEG recording was accomplished utilizing the 10-20 international system with bipolar and referential montages. The background activity in the most alert resting state consists of a medium amplitude, poorly developed and poorly sustained 4-5 Hertz activity over the posterior head regions. This posterior rhythm attenuates minimally to eye opening. There is a small amount of low amplitude 18-20 Hz beta activity seen maximally over the anterior head regions. Muscle and movement artifact was observed on a few occasions during the tracing. Hyperventilation was not performed. Photic stimulation at flash frequencies of 2-30 Hz produced a minimal occipital driving response. No epileptiform discharges were seen. IMPRESSION: This EEG gives evidence of a severe widespread diffuse disturbance in cerebral function. The EEG failed to reveal any focal, lateralized, or epileptiform abnormalities. Clinical correlation is recommended. MMODL / IJN: [id number] /
[2017-05-24] MEDS: ATORVASTATIN 80 MG TAB PO SCH (22:04)
[2017-05-24] MEDS: INSULIN DETEMIR 100 UNIT/ML 10 ML VIAL SQ SCH (22:05)
--- NOTE | 2017-05-24 22:21 | OP ---
OPERATIVE REPORT PREOP DIAGNOSIS: Renal failure with peritonitis. PROCEDURE PERFORMED: 1. Superior vena cavogram. 2. Placement of a 23 cm Medtronic precurved dialysis catheter. Ultrasound-guided right internal jugular approach. PROCEDURE: This patient was brought to the labor and delivery nurse. The right side of the neck and chest was prepped and drapes applied in the usual sterile manner. Ultrasound-guided puncture of the right jugular vein. Micropuncture guidewire was passed. There was some difficulty in passing the guide wire. This patient had a dialysis catheter placed in the past. 4- [place] dilator on the top of the guidewire. Then, a superior vena cavogram. No critical stenosis was noted. After that, the guide was passed through the jugular vein into the inferior vena cava and then we created a tunnel. Through the tunnel we brought 23 cm pre curved dialysis catheter. After the dilator was advanced off the guidewire, then, sheath was advanced under fluoroscopy control and through the sheath we introduced the dialysis catheter. Tip of the catheter was to the superior vena cava and atrium. Flushed with heparin saline and hep-locked. Secured with Vicryl and 5-0 nylon. Dressing applied. Patient tolerated the procedure well. MMODL / IJN: [id number] /
[2017-05-24] MEDS ORDERED: VALPROATE SODIUM 1,000 MG in SODIUM CHLORIDE 0.9% 50 ML IVPB STA (22:35)
[2017-05-25 02:04] LABS: Hepatitis B Surface Antibody Non-Reactive (Non-Reactive)
[2017-05-25 06:00] LABS: Glucose,Whole Blood 185 mg/dL (75-99)
[2017-05-25 06:05] LABS: Basophils % (A) 0 %; CH 27.4; CHCM 31.4; Eosinophils % (A) 0 %; HCT 34.6 % (39.0-53.0); HDW 3.18; HGB 10.7 gm/dL (13.0-17.5); Hypochromasia Moderate; Luc # (Auto) 0.07; Luc % (Auto) 1; Lymphocytes # (A) 0.5 k/uL (1.0-4.8); Lymphocytes % (A) 5 %; MCHC 30.9 g/dL (31.0-37.0); MCV 87.5 fL (80.0-100.0); Mean Platelet Volume 7.8; Monocytes # (A) 0.5 k/uL (0-1.0); Monocytes % (A) 5 %; Neutrophils # (A) 7.8 k/uL (1.3-7.7); Neutrophils % (A) 88 %; RBC 3.95 m/uL (4.30-5.90); RDW 15.3 % (11.5-15.5); WBC 8.8 k/uL (3.8-10.6); WBC (Perox) 9.35
[2017-05-25 06:18] LABS: Calcium 7.9 mg/dL (8.4-10.2); Potassium 4.1 mmol/L (3.5-5.1)
[2017-05-25] MEDS: INSULIN ASPART 100 UNIT/ML 1 ML 10 ML VIAL SQ SCH ×3 (07:24→17:37)
[2017-05-25] MEDS: CALCIUM ACETATE 667 MG CAP PO SCH ×3 (07:24→17:36)
[2017-05-25] MEDS: SEVELAMER 800 MG TAB PO SCH ×3 (07:25→17:36)
[2017-05-25] MEDS: THIAMINE 100 MG TAB PO SCH (08:05)
[2017-05-25] MEDS: AMIODARONE 200 MG TAB PO SCH ×2 (08:05→22:19)
[2017-05-25] MEDS: amLODIPine 10 MG TAB PO SCH (08:05)
[2017-05-25] MEDS: LEVOTHYROXINE 25 MCG TAB PO SCH (08:05)
[2017-05-25] MEDS: FAMOTIDINE 20 MG TAB PO SCH (08:05)
[2017-05-25] MEDS: VALPROATE SODIUM 750 MG in SODIUM CHLORIDE 0.9% 50 ML IVPB SCH ×3 (08:58→22:54)
[2017-05-25] MEDS: levETIRAcetam IV 750 MG in SODIUM CHLORIDE 0.9% 100 ML IVPB SCH ×2 (10:19→22:25)
--- NOTE | 2017-05-25 10:36 | P.PN ---
Subjective Progress Note Date: 05/25/17 05/21/2017 46-year-old male who presented to the emergency room on 05/20/2017 with a chief complaint of abdominal pain and cloudy peritoneal fluid. The patient states he has had abdominal pain that has persisted for two days. He also complained of intermittent nausea and vomiting. He states that he noticed his peritoneal fluid was becoming cloudy as well. The patient has a history of end-stage renal disease. He states he has been on peritoneal dialysis for 2-1/2 years. He states prior to that he did hemodialysis for 8 months but he did not tolerate and had multiple side effects and was then transitioned to peritoneal dialysis. He also has history of coronary artery disease, diabetes mellitus, DVT, gastro-esophageal reflux disease, hypertension, hyperlipidemia, myocardial infarction, and peripheral vascular disease with a left [id number] mutation and a right foot partial amputation. He states he has a wound to his right calf that is not healing. He also has a history of MRSA in 2014 in his blood and left foot. In the emergency room, a chest x-ray was completed which showed bilateral infiltrates. KUB was completed which showed small pneumoperitoneum which was thought to be related to dialysis port. Peritoneal fluid was sent for culture. Sodium on admission was 139, potassium 3.4, BUN 53, creatinine 12.04, WBCs 11.4, hemoglobin 12.7, platelets 176. Troponin was negative 1. Lactic acid on admission was 1.3 It was also noted that while the patient was in the emergency room he received IV pain medication and became unresponsive and apneic and it was difficult to feel a pulse. ER staff started CPR and the patient was revived. The patient also received Narcan. After CPR, there was thoughts of possible rib fractures. Chest xray was completed which was negative for rib fractures. IV pain medication has since been discontinued. The patient was admitted to the hospital under the care of Dr. Aguilar. Consultations were placed to nephrology. The patient was seen and examined at the bedside with Dr. Aguilar on rounds. He states he is feeling okay today. He does continue to complain of abdominal pain but states it is improving. He denies nausea or vomiting. He is tolerating a consistent carbohydrate diet without nausea or vomiting. He remains in contact isolation for history of MRSA infection. He remains on Rocephin and Vanco. He remains on 2L NC with oxygen saturations greater than 92%. Blood pressure is stable. He is afebrile. 05/22/2017 (Notes per Dr. Aguilar) Patient has a recurrent history of end-stage renal disease. Currently maintained on peritoneal dialysis. She presented to the hospital with peritonitis persistent abdominal pain. His total cell count, has come down but PMN count stays quite elevated. One set of blood cultures also came back positive for gram-positive cocci. Patient has been vomiting with some retching today. 05/23/2017 (Notes per Dr. Aguilar) Patient has a recurrent history of end-stage renal disease. Currently maintained on peritoneal dialysis. She presented to the hospital with peritonitis persistent abdominal pain. His total cell count, has come down but PMN count stays quite elevated. One set of blood cultures also came back positive for coagulase-negative staph, and staph aureus . Patient was started on IV Vanco yesterday by Dr. Mann patient has been getting Vanco in his peritoneal dialysis fluid as well I believe once every 5 days 05/24/2017 Patient was noted to have left sided weakness over the weekend. Neuro was consulted. CT of the brain was completed and was negative for acute process. Patient underwent MRI of the brain which revealed nonspecific white matter changes predominating within the posterior circulation in the parietal and occipital lobes, 2.3cm left middle cranial fossa arachnoid cyst with minimal mass effect on temporal lobe, and 3cm maxillary cyst. The patient has had problems with his PD draining properly. Nephrology is following. The patient will need PD catheter removed to ensure infection completely resolves. In the meantime, Dr. Ramirez was consulted for hemodialysis catheter placement. The patient will require short term HD until infection resolves and then can transition back to PD per nephrology. General surgery has been consulted for removal of PD catheter. Infectious disease is following. Positive for MSSA. Patients blood cultures positive for coagulase negative, which is likely a contaminated specimen. Repeat cultures are negative. 05/25/2017 Patient seen and examined at the bedside. Patient remains very lethargic. He was able to open his eyes and mumble a few words, which she was unable to do yesterday. The patient underwent hemodialysis catheter insertion yesterday and had his first hemodialysis session last night. The patient is scheduled today for removal of peritoneal dialysis catheter with Dr. Adorno. Per nursing, the patient is supposed to undergo hemodialysis again today. His creatinine has improved from 11.3 to 8.92. The patient is unable to take any of his oral medications due to his altered mental status. His blood pressure this morning is elevated at 180/91. He remains on 3 L nasal cannula and maintaining an oxygen saturation greater than 92%. He did have a low-grade fever of 99.1 F axillary this morning. He remains on cefazolin per infectious disease for positive MSSA. Patient originally wanted to return home at the time of discharge. However, due to the patient's current condition, he will likely require ECF placement when he is stable for discharge. This was discussed with social work and case management and consultations were placed to PT and OT for evaluation. Objective - Vital Signs Vital signs: Vital Signs Temp 99.1 F 05/25/17 08:00 Pulse 88 05/25/17 08:00 Resp 18 05/25/17 08:00 BP 180/91 05/25/17 08:00 Pulse Ox 98 05/25/17 08:00 Intake & Output 05/24/17 05/25/17 05/25/17 18:59 06:59 18:59 Intake Total 25 Output Total 0 0 Balance 25 0 Weight 94 kg 94 kg Intake: IV 25 Oral 0 Output: Urine 0 0 Other: Voiding Method Urinal Urinal # Voids 0 0 # Emeses 1 - Exam GENERAL: This is a 46-year-old male who is very lethargic at the time of examination. Able to open his eyes on command and mumble a few words. HEENT: Head is atraumatic, normocephalic. Left pupil 2 mm, round, and sluggish. Right pupil 3 mm, oval, and sluggish. Sclerae anicteric. Conjunctivae are clear. Mucus membranes of the mouth are moist. Neck is supple. Hemodialysis catheter present with moderate old drainage present. RESPIRATORY: Clear to ausculation. No wheezes, rales, or rhonchi. Diminished at the bases. No use of accessory muscles. Patient maintaining oxygen saturation greater than 92% on 3 L nasal cannula. No chest wall tenderness is noted on palpation or with deep breathing. CARDIOVASCULAR: Regular rate and rhythm. S1 and S2 noted. No systolic or diastolic murmur auscultated. No JVD noted. No S3 or S4 noted. GASTROINTESTINAL: Peritoneal dialysis catheter present. Pain and tenderness upon palpation. No distention noted. Abdomen soft and round. Normal active bowel sounds auscultated x 4 quadrants. INTEGUMENTARY: Chronic wound noted to right calf. No cyanosis. No jaundice. No rashes noted. No cellulitis noted. EXTREMITIES: Left below the knee amputation. Right partial foot amputation. No evidence of peripheral edema. No calf tenderness noted. NEUROLOGIC: Cranial nerves II-XII intact. PSYCHIATRIC: Lethargic. Unable to assess mental status. - Labs CBC & Chem 7: 05/25/17 05:18 05/25/17 05:18 Labs: Abnormal Lab Results - Last 24 Hours (Table) 05/24/17 05/24/17 05/24/17 Range/Units 05:42 11:57 15:20 RBC (4.30-5.90) m/uL Hgb (13.0-17.5) gm/dL Hct (39.0-53.0) % MCHC (31.0-37.0) g/dL Neutrophils # (1.3-7.7) k/uL Lymphocytes # (1.0-4.8) k/uL Sodium (137-145) mmol/L Chloride (98-107) mmol/L Carbon Dioxide (22-30) mmol/L BUN (9-20) mg/dL Creatinine (0.66-1.25) mg/dL Glucose (74-99) mg/dL POC Glucose (mg/dL) 106 H 141 H (75-99) mg/dL Hemoglobin A1c 9.8 H (4.0-6.0) % Calcium (8.4-10.2) mg/dL 05/24/17 05/24/17 05/25/17 Range/Units 16:49 20:59 05:18 RBC (4.30-5.90) m/uL Hgb (13.0-17.5) gm/dL Hct (39.0-53.0) % MCHC (31.0-37.0) g/dL Neutrophils # (1.3-7.7) k/uL Lymphocytes # (1.0-4.8) k/uL Sodium 131 L (137-145) mmol/L Chloride 95 L (98-107) mmol/L Carbon Dioxide 20 L (22-30) mmol/L BUN 55 H (9-20) mg/dL Creatinine 8.92 H* (0.66-1.25) mg/dL Glucose 188 H (74-99) mg/dL POC Glucose (mg/dL) 135 H 146 H (75-99) mg/dL Hemoglobin A1c (4.0-6.0) % Calcium 7.9 L (8.4-10.2) mg/dL 05/25/17 05/25/17 Range/Units 05:18 05:59 RBC 3.95 L (4.30-5.90) m/uL Hgb 10.7 L (13.0-17.5) gm/dL Hct 34.6 L (39.0-53.0) % MCHC 30.9 L (31.0-37.0) g/dL Neutrophils # 7.8 H (1.3-7.7) k/uL Lymphocytes # 0.5 L (1.0-4.8) k/uL Sodium (137-145) mmol/L Chloride (98-107) mmol/L Carbon Dioxide (22-30) mmol/L BUN (9-20) mg/dL Creatinine (0.66-1.25) mg/dL Glucose (74-99) mg/dL POC Glucose (mg/dL) 185 H (75-99) mg/dL Hemoglobin A1c (4.0-6.0) % Calcium (8.4-10.2) mg/dL Microbiology - Last 24 Hours (Table) 05/23/17 12:00 Gram Stain - Preliminary Dialysate Body Fluid Culture - Preliminary 05/20/17 20:35 Blood Culture Gram Stain - Final Blood Blood Culture - Final Staph capitis SS capitis 05/22/17 14:15 Gram Stain - Preliminary Dialysate Body Fluid Culture - Preliminary 05/22/17 14:25 Blood Culture - Preliminary Blood No Growth after 48 hours 05/21/17 04:10 Gram Stain - Final Peritoneal Fluid Body Fluid Culture - Final Staphylococcus aureus Assessment and Plan Plan: ASSESSMENT: Peritonitis, secondary to peritoneal dialysis, cultures positive for MSSA End-stage renal disease, on peritoneal dialysis, temporarily placed on hemodialysis secondary to peritonitis Abdominal pain, nausea, and vomiting secondary to peritonitis Diabetes mellitus, type II, hemoglobin A1c 9.9% Coronary artery disease with previous myocardial infarction Peripheral vascular disease with history of left BKA and right partial foot amputation Anemia of chronic disease secondary to CKD Acute metabolic encephalopathy Left sided weakness, possible TIA History of MRSA infection in left lower extremity Hypertension History of seizures PLAN: -Nephrology on consult. Appreciate recommendations and input -Patient likely to undergo hemodialysis again today. -Antibiotic regimen per infectious disease. Currently on cefazolin 2 g IV every 24 hours -Patient scheduled for OR today with Dr. Adorno for peritoneal dialysis catheter removal -Due to patient's inability to take by mouth medications, will order Protonix 40 mg IV daily, hydralazine 10 mg every 4 hours when necessary for systolic blood pressure greater than 160 or diastolic blood pressure greater than 100. -Neurology on consult. Appreciate recommendations and input -Monitor labs -Monitor capillary blood glucose Accu-Cheks before meals and at bedtime. May require adjustment if patient's blood sugar decreases due to inability to take by mouth intake. -Continue humalog sliding scale before meals and at bedtime -Continue 10 units Levemir at bedtime -GI prophylaxis: Protonix 40 mg IV daily -DVT prophylaxis: Venodynes to right lower extremity -Monitor vital signs and address as appropriate -Discharge planning: Patient originally requesting to return home, but may likely require ECF placement. -PT/OT consult -Further recommendations pending patient's course Nurse practitioner note has been reviewed by physician. Signing provider agrees with the documented findings, assessment, and plan of care.
[2017-05-25] MEDS: PANTOPRAZOLE 40 MG/10 ML VIAL IVP SCH (10:40)
--- NOTE | 2017-05-25 10:53 | IR ---
Fluoroscopy HISTORY: Pain 3.5 minutes fluoroscopy time supplied to the referring clinician. 836 intraoperative C-arm images do cument the procedure. See dictated report from vascular surgery.
[2017-05-25] MEDS ORDERED: IV FLUID CONTINUATION 1,000 ML IV ONE (11:51)
[2017-05-25 12:01] LABS: Glucose,Whole Blood 144 mg/dL (75-99)
--- NOTE | 2017-05-25 12:03 | P.PN ---
Progress Note - Text Progress Note Date: 05/25/17 Patient presents today in the preoperative area. He is scheduled for removal of his infected peritoneal dialysis catheter. He has had low-grade fevers. He remains somewhat lethargic. His blood pressure has been stable. Consent was apparently obtained from the nursing staff from his infectious disease specialist and his freight flow sales leader. It is my opinion that this is an emergency procedure. The patient apparently does not have a power of research attorney. Attempts at reaching the patient's family have been unsuccessful. Further delay of removing this catheter could lead to worsening of his infection. We'll proceed with surgical removal of the catheter as an emergency without a signed consent from the family or patient.
[2017-05-25] MEDS ORDERED: MIDAZOLAM 2 MG/2 ML VIAL ONE (12:40)
[2017-05-25] MEDS ORDERED: GLYCOPYRROLATE 0.2 MG/ML 2 ML VIAL ONE (12:40)
[2017-05-25] MEDS ORDERED: KETAMINE 10 MG/ML 20 ML VIAL ONE (12:40)
[2017-05-25] MEDS ORDERED: BUPIVACAINE (PF) 0.25% 30 ML VIAL SQ ONE ×2 (13:05)
--- NOTE | 2017-05-25 13:21 | P.OP ---
Date of Procedure: 05/25/17 Procedure(s) Performed: PREOPERATIVE DIAGNOSIS: Catheter associated peritonitis POSTOPERATIVE DIAGNOSIS: Same PROCEDURE: PD cath removal SURGEON: Tila EBL: 2 mL ANESTHESIA: Sedation and local COMPLICATIONS: None OPERATIVE PROCEDURE: Patient was placed in the supine position. The abdomen was prepped and draped in usual sterile fashion. The previous paramedian incision was re-incised after localizing the skin. The subcutaneous tissues were divided using electrocautery. Blunt dissection around the cuff that was present at the fascia and peritoneum took place. The cuff was fully mobilized. The catheter was removed from the peritoneal cavity. The outer cuff was dissected from the rectus fascia using electrocautery. The catheter was cut on the other side of that cuff and the catheter was removed. Clear fluid was seen coming from the small defect in the fascia. The fascial defect was closed using a single [id number] 0 Vicryl stitch. The subcutaneous tissues were closed using 3-0 Vicryl sutures and the skin using 4-0 Monocryl sutures. Steri- Strips and sterile dressings were applied. DISPOSITION: Stable to recovery room
[2017-05-25 13:41] LABS: Glucose,Whole Blood 146 mg/dL (75-99)
--- NOTE | 2017-05-25 14:19 | P.PN ---
Subjective Progress Note Date: 05/24/17 This patient is a 46 year old male being evaluated for left sided weakness and possible stroke. The patient yesterday had symptoms of acute left-sided hemiparesis and weakness. He was evaluated by Dr. Shoemaker. There was concern for possibility of acute stroke and neurology was consulted. Patient underwent MRI of the brain today for further evaluation of acute stroke. MRI results indicate nonspecific white matter changes in the posterior circulation and involving the parietal and occipital lobes. This raises the possibility of posterior reversible encephalopathy syndrome. Patient had no evidence of acute ischemia on diffusion-weighted imaging. There was evidence of a small 2.3 cm left middle cranial fossa arachnoid cyst. The patient continues to be treated for underlying sepsis. He has evidence of an MSSA and peritoneal dialysis catheter associated peritonitis. His peritoneal dialysis catheter was removed by general surgery. Patient did have a permacath placement for hemodialysis. He is being followed closely by infectious disease. He continues on multiple antibiotics at this time. The patient's mental status has not shown much improvement this evening. According to the nursing staff he was much more alert today as compared to yesterday. We did review the results of the MRI today with the patient. It is unclear whether he has a clear understanding of the results at this time. Clearly there is no evidence for acute stroke on the MRI. We will continue close neurological follow-up of this patient. Patient would benefit from a repeat MRI of the brain in 1 month. We will continue close neurological follow-up for this patient during this admission. His overall prognosis at this time remains guarded. Objective - Vital Signs Vital signs: Vital Signs Temp 98.7 F 05/24/17 17:45 Pulse 87 05/24/17 17:45 Resp 18 05/24/17 17:45 BP 157/77 05/24/17 17:45 Pulse Ox 95 05/24/17 17:45 Intake & Output 05/23/17 05/24/17 05/24/17 18:59 06:59 18:59 Intake Total 200 25 Output Total 0 Balance 200 25 Weight 95 kg Intake: IV 25 Intake, IV Titration 200 Amount Valproate Sodium 500 mg 50 In Sodium Chloride 0.9% 50 ml @ 50 mls/hr IVPB Q8HR [facility] Rx#:[id number] Valproate Sodium 750 mg 50 In Sodium Chloride 0.9% 50 ml @ 50 mls/hr IVPB ONCE [facility] Rx#:[id number] levETIRAcetam IV 750 mg 100 In Sodium Chloride 0.9% 100 ml @ 400 mls/hr IVPB Q12HR [facility] Rx#:[id number] Oral 0 Output: Urine 0 Other: Voiding Method Urinal Urinal # Voids 0 0 0 - Exam Physical examination: PHYSICAL EXAMINATION: Patient is resting comfortably in bed. VITAL SIGNS: Blood pressure is [157/77]. Heart rate is [87]. Respiration is [14] . Temperature is [98.7]. HEENT: Head is atraumatic, neck is supple, there were no carotid bruits. CHEST: Lungs are clear to auscultation and percussion. CARDIAC: S1, S2 normal rate and rhythm. There is no murmur. ABDOMEN: Soft and nontender. Bowel sounds are present. EXTREMITIES: There is no pedal edema. Peripheral pulses are present. Neurological examination: Patient's neurological status remains unchanged from yesterday. He remains confused and encephalopathic. We did review his MRI results today with him. - Labs CBC & Chem 7: 05/25/17 05:18 05/25/17 05:18 Labs: Abnormal Lab Results - Last 24 Hours (Table) 05/23/17 05/24/17 05/24/17 Range/Units 20:31 05:42 05:42 RBC 3.56 L (4.30-5.90) m/uL Hgb 10.0 L (13.0-17.5) gm/dL Hct 32.3 L (39.0-53.0) % Sodium 130 L (137-145) mmol/L Chloride 97 L (98-107) mmol/L BUN 63 H (9-20) mg/dL Creatinine 11.30 H* (0.66-1.25) mg/dL Glucose 110 H (74-99) mg/dL POC Glucose (mg/dL) 121 H (75-99) mg/dL Calcium 7.8 L (8.4-10.2) mg/dL 05/24/17 05/24/17 05/24/17 Range/Units 06:26 11:57 15:20 RBC (4.30-5.90) m/uL Hgb (13.0-17.5) gm/dL Hct (39.0-53.0) % Sodium (137-145) mmol/L Chloride (98-107) mmol/L BUN (9-20) mg/dL Creatinine (0.66-1.25) mg/dL Glucose (74-99) mg/dL POC Glucose (mg/dL) 105 H 106 H 141 H (75-99) mg/dL Calcium (8.4-10.2) mg/dL 05/24/17 Range/Units 16:49 RBC (4.30-5.90) m/uL Hgb (13.0-17.5) gm/dL Hct (39.0-53.0) % Sodium (137-145) mmol/L Chloride (98-107) mmol/L BUN (9-20) mg/dL Creatinine (0.66-1.25) mg/dL Glucose (74-99) mg/dL POC Glucose (mg/dL) 135 H (75-99) mg/dL Calcium (8.4-10.2) mg/dL Microbiology - Last 24 Hours (Table) 05/22/17 14:25 Blood Culture - Preliminary Blood No Growth after 48 hours 05/21/17 04:10 Gram Stain - Final Peritoneal Fluid Body Fluid Culture - Final Staphylococcus aureus 05/23/17 12:00 Gram Stain - Preliminary Dialysate Body Fluid Culture - Preliminary 05/20/17 20:31 Gram Stain - Final Dialysate Body Fluid Culture - Final Staphylococcus aureus 05/22/17 14:15 Gram Stain - Preliminary Dialysate Body Fluid Culture - Preliminary Assessment and Plan (1) TIA (transient ischemic attack) Current Visit: Yes Status: Acute SNOMED Code(s): 091078845 (2) Acute encephalopathy Current Visit: Yes Status: Acute SNOMED Code(s): 9809551 (3) Seizure disorder Current Visit: Yes Status: Acute SNOMED Code(s): 345270375 (4) Encounter for CAPD (continuous ambulatory peritoneal dialysis) Current Visit: Yes Status: Acute SNOMED Code(s): 264560049 (5) Peritonitis due to infected peritoneal dialysis catheter Current Visit: Yes Status: Acute SNOMED Code(s): 926141454 (6) Chronic renal failure Current Visit: Yes Status: Chronic SNOMED Code(s): 12436236 (7) Diabetes mellitus Current Visit: Yes Status: Chronic SNOMED Code(s): 42569088 Plan: This patient is a 46-year-old right-handed white male who was initially admitted to [facility] for acute peritonitis. Patient has been undergoing CAPD for treatment of end-stage renal disease. He developed abdominal pain and was found to have evidence of acute peritonitis on the day of admission which was 05/20/2017. Today he was noted by his primary care physician is demonstrating left-sided weakness. Patient is a poor historian and does also suffer from underlying seizure disorder. He is noted to have some frequent myoclonic-like jerks on examination today. Patient was sent for an emergent computed tomography scan of the brain today the results of which are noted above. CAT scan of the brain was reported negative for acute stroke or hemorrhage. The patient does have difficulty with weakness. We have recommended further evaluation of his condition including MRI of the brain as well as a routine EEG. Patient underwent MRI of the brain today. Results of the MRI are indicated above. The MRI reveals findings of possibility of posterior reversible encephalopathy syndrome. There was no evidence of acute stroke based on diffusion weighted imaging. His mental status still remains poor. We did check his Depakote level today and it still remains subtherapeutic at 36.1. We have given him a bolus of IV Depacon and we will recheck his Depakote level tomorrow morning. His Keppra blood level is still pending from the laboratory. After review of the MRI results we are recommending a repeat MRI of the brain to be done in one month for comparison. We will await his anticonvulsant blood levels to return tomorrow morning and make any further adjustments as needed. This patient's overall prognosis at this time remains guarded.
[2017-05-25 16:40] LABS: Glucose,Whole Blood 117 mg/dL (75-99)
[2017-05-25] MEDS: TAMSULOSIN 0.4 MG CAP.ER.24H PO SCH (17:37)
[2017-05-25] MEDS: ceFAZolin IN SWFI 2 GM/20 ML SYRINGE IVP SCH (17:52)
[2017-05-25] MEDS: hydrALAZINE HCL 20 MG/ML 1 ML VIAL IVP PRN (17:52)
[2017-05-25] MEDS ORDERED: HEPARIN SODIUM,PORCINE 5,000 UNIT/ML 1 ML VIAL ONE (18:00)
--- NOTE | 2017-05-25 20:34 | P.PN ---
Subjective Progress Note Date: 05/25/17 This patient is a 46 year old male being evaluated for left sided weakness and possible stroke. The patient yesterday had symptoms of acute left-sided hemiparesis and weakness. He was evaluated by Dr. Shoemaker. There was concern for possibility of acute stroke and neurology was consulted. Patient underwent MRI of the brain today for further evaluation of acute stroke. MRI results indicate nonspecific white matter changes in the posterior circulation and involving the parietal and occipital lobes. This raises the possibility of posterior reversible encephalopathy syndrome (PRES). Patient had no evidence of acute ischemia on diffusion-weighted imaging. There was evidence of a small 2.3 cm left middle cranial fossa arachnoid cyst. The patient continues to be treated for underlying sepsis. He has evidence of an MSSA and peritoneal dialysis catheter associated peritonitis. His peritoneal dialysis catheter was removed by general surgery. Patient did have a permacath placement for hemodialysis. He is being followed closely by infectious disease. He continues on multiple antibiotics at this time. The patient's mental status has not shown much improvement this evening. According to the nursing staff he was much more alert today as compared to yesterday. We did review the results of the MRI today with the patient. It is unclear whether he has a clear understanding of the results at this time. Clearly there is no evidence for acute stroke on the MRI. the patient's overall mental status is improved from yesterday. He is more awake and alert. His speech is more clear today as well. We will continue close neurological follow-up of this patient. Patient would benefit from a repeat MRI of the brain in 1 month to see if there is any improvement or changes in the posterior section of the brain. As noted the differential would include PRES Syndrome. his Depakote level was not completed this morning. We have ordered it to be done again tomorrow morning his follow- up. His Keppra level is therapeutic at 46.1. We will continue close neurological follow-up for this patient during this admission. His overall prognosis at this time remains guarded. Objective - Vital Signs Vital signs: Vital Signs Temp 99.3 F 05/25/17 11:52 Pulse 74 05/25/17 14:21 Resp 16 05/25/17 14:21 BP 155/79 05/25/17 14:21 Pulse Ox 98 05/25/17 14:21 Intake & Output 05/24/17 05/25/1717 18:59 06:59 18:59 Intake Total 25 50 Output Total 0 0 5 Balance 25 0 45 Weight 94 kg 94 kg Intake: IV 25 50 Oral 0 Output: Urine 0 0 Estimated Blood Loss 5 Other: Voiding Method Urinal Urinal # Voids 0 0 # Emeses 1 - Exam Physical examination: PHYSICAL EXAMINATION: Patient is resting comfortably in bed. VITAL SIGNS: Blood pressure is [157/77]. Heart rate is [87]. Respiration is [14] . Temperature is [99.3]. HEENT: Head is atraumatic, neck is supple, there were no carotid bruits. CHEST: Lungs are clear to auscultation and percussion. CARDIAC: S1, S2 normal rate and rhythm. There is no murmur. ABDOMEN: Soft and nontender. Bowel sounds are present. EXTREMITIES: There is no pedal edema. Peripheral pulses are present. Neurological examination: Patient's neurological status remains unchanged from yesterday. He remains confused and encephalopathic, but slightly improved from yesterday. We did review his MRI results today with him. - Labs CBC & Chem 7: 05/25/17 05:18 05/25/17 05:18 Labs: Abnormal Lab Results - Last 24 Hours (Table) 05/24/17 05/24/17 05/24/17 Range/Units 05:42 15:20 16:49 RBC (4.30-5.90) m/uL Hgb (13.0-17.5) gm/dL Hct (39.0-53.0) % MCHC (31.0-37.0) g/dL Neutrophils # (1.3-7.7) k/uL Lymphocytes # (1.0-4.8) k/uL Sodium (137-145) mmol/L Chloride (98-107) mmol/L Carbon Dioxide (22-30) mmol/L BUN (9-20) mg/dL Creatinine (0.66-1.25) mg/dL Glucose (74-99) mg/dL POC Glucose (mg/dL) 141 H 135 H (75-99) mg/dL Hemoglobin A1c 9.8 H (4.0-6.0) % Calcium (8.4-10.2) mg/dL 05/24/17 05/25/17 05/25/17 Range/Units 20:59 05:18 05:18 RBC 3.95 L (4.30-5.90) m/uL Hgb 10.7 L (13.0-17.5) gm/dL Hct 34.6 L (39.0-53.0) % MCHC 30.9 L (31.0-37.0) g/dL Neutrophils # 7.8 H (1.3-7.7) k/uL Lymphocytes # 0.5 L (1.0-4.8) k/uL Sodium 131 L (137-145) mmol/L Chloride 95 L (98-107) mmol/L Carbon Dioxide 20 L (22-30) mmol/L BUN 55 H (9-20) mg/dL Creatinine 8.92 H* (0.66-1.25) mg/dL Glucose 188 H (74-99) mg/dL POC Glucose (mg/dL) 146 H (75-99) mg/dL Hemoglobin A1c (4.0-6.0) % Calcium 7.9 L (8.4-10.2) mg/dL 05/25/17 05/25/17 05/25/17 Range/Units 05:59 11:58 13:38 RBC (4.30-5.90) m/uL Hgb (13.0-17.5) gm/dL Hct (39.0-53.0) % MCHC (31.0-37.0) g/dL Neutrophils # (1.3-7.7) k/uL Lymphocytes # (1.0-4.8) k/uL Sodium (137-145) mmol/L Chloride (98-107) mmol/L Carbon Dioxide (22-30) mmol/L BUN (9-20) mg/dL Creatinine (0.66-1.25) mg/dL Glucose (74-99) mg/dL POC Glucose (mg/dL) 185 H 144 H 146 H (75-99) mg/dL Hemoglobin A1c (4.0-6.0) % Calcium (8.4-10.2) mg/dL Microbiology - Last 24 Hours (Table) 05/23/17 12:00 Gram Stain - Preliminary Dialysate Body Fluid Culture - Preliminary 05/20/17 20:35 Blood Culture Gram Stain - Final Blood Blood Culture - Final Staph capitis SS capitis 05/22/17 14:15 Gram Stain - Preliminary Dialysate Body Fluid Culture - Preliminary 05/22/17 14:25 Blood Culture - Preliminary Blood No Growth after 48 hours 05/21/17 04:10 Gram Stain - Final Peritoneal Fluid Body Fluid Culture - Final Staphylococcus aureus Assessment and Plan (1) TIA (transient ischemic attack) Current Visit: Yes Status: Acute SNOMED Code(s): 793968761 (2) Acute encephalopathy Current Visit: Yes Status: Acute SNOMED Code(s): 6935360 (3) Seizure disorder Current Visit: Yes Status: Acute SNOMED Code(s): 440908472 (4) Encounter for CAPD (continuous ambulatory peritoneal dialysis) Current Visit: Yes Status: Acute SNOMED Code(s): 777157721 (5) Peritonitis due to infected peritoneal dialysis catheter Current Visit: Yes Status: Acute SNOMED Code(s): 530379630 (6) Chronic renal failure Current Visit: Yes Status: Chronic SNOMED Code(s): 33138013 (7) Diabetes mellitus Current Visit: Yes Status: Chronic SNOMED Code(s): 97853054 Plan: This patient is a 46-year-old right-handed white male who was initially admitted to [facility] for acute peritonitis. Patient has been undergoing CAPD for treatment of end-stage renal disease. He developed abdominal pain and was found to have evidence of acute peritonitis on the day of admission which was 05/20/2017. Today he was noted by his primary care physician is demonstrating left-sided weakness. Patient is a poor historian and does also suffer from underlying seizure disorder. He is noted to have some frequent myoclonic-like jerks on examination today. Patient was sent for an emergent computed tomography scan of the brain today the results of which are noted above. CAT scan of the brain was reported negative for acute stroke or hemorrhage. The patient does have difficulty with weakness. We have recommended further evaluation of his condition including MRI of the brain as well as a routine EEG. Patient underwent MRI of the brain today. Results of the MRI are indicated above. The MRI reveals findings of possibility of posterior reversible encephalopathy syndrome. There was no evidence of acute stroke based on diffusion weighted imaging. His mental status still remains poor. We did check his Depakote level today and it still remains subtherapeutic at 36.1. We have given him a bolus of IV Depacon and we will recheck his Depakote level tomorrow morning. his Depakote level was not completed this morning. We have reordered this to be done tomorrow morning as a follow-up. His Keppra blood level was completed and is therapeuticand the level came back at 46.1. After review of the MRI results we are recommending a repeat MRI of the brain to be done in one month for comparison. this would be helpful to distinguish whether he may truly have evidence for posterior reversible encephalopathy syndrome. We will await his anticonvulsant blood levels to return tomorrow morning and make any further adjustments as needed. This patient's overall prognosis at this time remains guarded.
[2017-05-25 21:13] LABS: Glucose,Whole Blood 137 mg/dL (75-99)
--- NOTE | 2017-05-25 21:35 | PN ---
PROGRESS NOTE DATE OF SERVICE: 05/25/2017. REASON FOR FOLLOWUP: MSSA peritoneal dialysis-associated peritonitis. INTERVAL HISTORY: The patient is afebrile, has been breathing comfortably. No nausea, vomiting has been noticed or any diarrhea. Has been mostly lethargic, but arousable per the R.N. EXAMINATION: Blood pressure 155/79 with a pulse of 74, temperature 98.7. He is 98% 2L nasal cannula. GENERAL DESCRIPTION: A middle-aged male lying in bed in no distress. RESPIRATORY SYSTEM: Unlabored breathing. Clear to auscultation anteriorly. HEART: S1, S2. Regular rate and rhythm. ABDOMEN: Soft. No tenderness. LABS: Hemoglobin is 10.7, white count of 8.8 with a BUN of 55, creatinine of 8.92. Blood culture repeat has been negative. IMPRESSION/PLAN: Patient admitted with a peritoneal dialysis catheter-associated peritonitis. The peritoneal dialysis catheter was discontinued. He did get a PermCath for hemodialysis. Will continue on cefazolin for at least 2 weeks to finish a course of therapy. Continue supportive care. MMODL / IJN: [id number] /
[2017-05-25] MEDS: ATORVASTATIN 80 MG TAB PO SCH (22:19)
[2017-05-25] MEDS: INSULIN DETEMIR 100 UNIT/ML 10 ML VIAL SQ SCH (22:25)
[2017-05-25] MEDS ORDERED: hydrALAZINE HCL 20 MG/ML 1 ML VIAL ONE (23:15)
[2017-05-26] MEDS ORDERED: ONDANSETRON 4 MG/2 ML VIAL ONE (00:08)
[2017-05-26] MEDS ORDERED: METOCLOPRAMIDE 5 MG/ML 2 ML VIAL IVP SCH (06:00)
[2017-05-26 06:09] LABS: Glucose,Whole Blood 133 mg/dL (75-99)
[2017-05-26 06:12] LABS: Basophils % (A) 0 %; CH 28.4; CHCM 31.7; Eosinophils % (A) 0 %; HCT 37.6 % (39.0-53.0); HDW 3.24; HGB 11.7 gm/dL (13.0-17.5); Hypochromasia Moderate; Luc % (Auto) 1; Lymphocytes # (A) 0.4 k/uL (1.0-4.8); Lymphocytes % (A) 5 %; MCH 28.1 pg (25.0-35.0); MCHC 31.2 g/dL (31.0-37.0); MCV 89.8 fL (80.0-100.0); Mean Platelet Volume 6.9; Monocytes # (A) 0.6 k/uL (0-1.0); Monocytes % (A) 7 %; Neutrophils # (A) 7.9 k/uL (1.3-7.7); Neutrophils % (A) 87 %; RBC 4.18 m/uL (4.30-5.90); RDW 14.2 % (11.5-15.5); WBC 9.1 k/uL (3.8-10.6); WBC (Perox) 9.06
[2017-05-26] MEDS: INSULIN ASPART 100 UNIT/ML 1 ML 10 ML VIAL SQ SCH ×3 (06:17→17:00)
[2017-05-26] MEDS: CALCIUM ACETATE 667 MG CAP PO SCH ×3 (09:01→18:09)
[2017-05-26] MEDS: SEVELAMER 800 MG TAB PO SCH ×3 (09:01→18:09)
[2017-05-26] MEDS: hydrALAZINE HCL 20 MG/ML 1 ML VIAL IVP PRN ×2 (09:08→22:06)
[2017-05-26] MEDS: VALPROATE SODIUM 750 MG in SODIUM CHLORIDE 0.9% 50 ML IVPB SCH ×3 (10:59→23:10)
[2017-05-26] MEDS: METOCLOPRAMIDE 5 MG/ML 2 ML VIAL IVP PRN ×2 (10:59→21:12)
--- NOTE | 2017-05-26 11:23 | P.PN ---
Subjective Progress Note Date: 05/26/17 05/21/2017 46-year-old male who presented to the emergency room on 05/20/2017 with a chief complaint of abdominal pain and cloudy peritoneal fluid. The patient states he has had abdominal pain that has persisted for two days. He also complained of intermittent nausea and vomiting. He states that he noticed his peritoneal fluid was becoming cloudy as well. The patient has a history of end-stage renal disease. He states he has been on peritoneal dialysis for 2-1/2 years. He states prior to that he did hemodialysis for 8 months but he did not tolerate and had multiple side effects and was then transitioned to peritoneal dialysis. He also has history of coronary artery disease, diabetes mellitus, DVT, gastro-esophageal reflux disease, hypertension, hyperlipidemia, myocardial infarction, and peripheral vascular disease with a left [id number] mutation and a right foot partial amputation. He states he has a wound to his right calf that is not healing. He also has a history of MRSA in 2014 in his blood and left foot. In the emergency room, a chest x-ray was completed which showed bilateral infiltrates. KUB was completed which showed small pneumoperitoneum which was thought to be related to dialysis port. Peritoneal fluid was sent for culture. Sodium on admission was 139, potassium 3.4, BUN 53, creatinine 12.04, WBCs 11.4, hemoglobin 12.7, platelets 176. Troponin was negative 1. Lactic acid on admission was 1.3 It was also noted that while the patient was in the emergency room he received IV pain medication and became unresponsive and apneic and it was difficult to feel a pulse. ER staff started CPR and the patient was revived. The patient also received Narcan. After CPR, there was thoughts of possible rib fractures. Chest xray was completed which was negative for rib fractures. IV pain medication has since been discontinued. The patient was admitted to the hospital under the care of Dr. Aguilar. Consultations were placed to nephrology. The patient was seen and examined at the bedside with Dr. Aguilar on rounds. He states he is feeling okay today. He does continue to complain of abdominal pain but states it is improving. He denies nausea or vomiting. He is tolerating a consistent carbohydrate diet without nausea or vomiting. He remains in contact isolation for history of MRSA infection. He remains on Rocephin and Vanco. He remains on 2L NC with oxygen saturations greater than 92%. Blood pressure is stable. He is afebrile. 05/22/2017 (Notes per Dr. Aguilar) Patient has a recurrent history of end-stage renal disease. Currently maintained on peritoneal dialysis. She presented to the hospital with peritonitis persistent abdominal pain. His total cell count, has come down but PMN count stays quite elevated. One set of blood cultures also came back positive for gram-positive cocci. Patient has been vomiting with some retching today. 05/23/2017 (Notes per Dr. Aguilar) Patient has a recurrent history of end-stage renal disease. Currently maintained on peritoneal dialysis. She presented to the hospital with peritonitis persistent abdominal pain. His total cell count, has come down but PMN count stays quite elevated. One set of blood cultures also came back positive for coagulase-negative staph, and staph aureus . Patient was started on IV Vanco yesterday by Dr. Mann patient has been getting Vanco in his peritoneal dialysis fluid as well I believe once every 5 days 05/24/2017 Patient was noted to have left sided weakness over the weekend. Neuro was consulted. CT of the brain was completed and was negative for acute process. Patient underwent MRI of the brain which revealed nonspecific white matter changes predominating within the posterior circulation in the parietal and occipital lobes, 2.3cm left middle cranial fossa arachnoid cyst with minimal mass effect on temporal lobe, and 3cm maxillary cyst. The patient has had problems with his PD draining properly. Nephrology is following. The patient will need PD catheter removed to ensure infection completely resolves. In the meantime, Dr. Ramirez was consulted for hemodialysis catheter placement. The patient will require short term HD until infection resolves and then can transition back to PD per nephrology. General surgery has been consulted for removal of PD catheter. Infectious disease is following. Positive for MSSA. Patients blood cultures positive for coagulase negative, which is likely a contaminated specimen. Repeat cultures are negative. 05/25/2017 Patient seen and examined at the bedside. Patient remains very lethargic. He was able to open his eyes and mumble a few words, which she was unable to do yesterday. The patient underwent hemodialysis catheter insertion yesterday and had his first hemodialysis session last night. The patient is scheduled today for removal of peritoneal dialysis catheter with Dr. Adorno. Per nursing, the patient is supposed to undergo hemodialysis again today. His creatinine has improved from 11.3 to 8.92. The patient is unable to take any of his oral medications due to his altered mental status. His blood pressure this morning is elevated at 180/91. He remains on 3 L nasal cannula and maintaining an oxygen saturation greater than 92%. He did have a low-grade fever of 99.1 F axillary this morning. He remains on cefazolin per infectious disease for positive MSSA. Patient originally wanted to return home at the time of discharge. However, due to the patient's current condition, he will likely require ECF placement when he is stable for discharge. This was discussed with social work and case management and consultations were placed to PT and OT for evaluation. 05/26/2017 Patient seen and examined at the bedside. Patient is significantly less lethargic than yesterday. He is communicating well and able to answer questions appropriately. Bilateral hand grasps are strong and equal. Neurology recommends patient to have a repeat CT of the head in one month. Patient is currently undergoing dialysis and tolerating well. Patient currently reeciving cefazolin and will require two more weeks per Dr. Piedra. Spoke with him this morning who states patient will not need a PICC line and can receive 3gram after each dialysis treatment for the next two weeks. PT/OT have been consulted to assess patients mobility and evaluate for possible ECF placement if he is unable to care for himself at home. Objective - Vital Signs Vital signs: Vital Signs Temp 98.5 F 05/26/17 04:53 Pulse 103 H 05/26/17 04:53 Resp 18 05/26/17 04:53 BP 178/98 05/26/17 04:53 Pulse Ox 94 L 05/26/17 04:53 Intake & Output 05/25/17 05/26/17 05/26/17 18:59 06:59 18:59 Intake Total 50 45 Output Total 5 300 Balance 45 -255 Weight 94 kg 97 kg Intake: IV 50 45 Sodium Chloride 0.9% 1, 45 000 ml @ 120 mls/hr IV . Q8H20M [facility] Rx#:[id number] Output: Urine 300 Estimated Blood Loss 5 Other: Voiding Method Urinal - Exam GENERAL: This is a 46-year-old male who is more awake and alert today. Able to answer questions and follow commands. HEENT: Head is atraumatic, normocephalic. Left pupil 2 mm, round, and sluggish. Right pupil 3 mm, oval, and sluggish. Sclerae anicteric. Conjunctivae are clear. Mucus membranes of the mouth are moist. Neck is supple. Hemodialysis catheter present with moderate old drainage present. RESPIRATORY: Clear to ausculation. No wheezes, rales, or rhonchi. Diminished at the bases. No use of accessory muscles. Patient maintaining oxygen saturation greater than 92% on 3 L nasal cannula. No chest wall tenderness is noted on palpation or with deep breathing. CARDIOVASCULAR: Regular rate and rhythm. S1 and S2 noted. No systolic or diastolic murmur auscultated. No JVD noted. No S3 or S4 noted. GASTROINTESTINAL: PD removed yesterday. Pain and tenderness upon palpation. No distention noted. Abdomen soft and round. Normal active bowel sounds auscultated x 4 quadrants. INTEGUMENTARY: Chronic wound noted to right calf. No cyanosis. No jaundice. No rashes noted. No cellulitis noted. EXTREMITIES: Left below the knee amputation. Right partial foot amputation. No evidence of peripheral edema. No calf tenderness noted. NEUROLOGIC: Cranial nerves II-XII intact. PSYCHIATRIC: Awake and alert. Appears more orientated today. - Labs CBC & Chem 7: 05/26/17 05:24 05/26/17 05:24 Labs: Abnormal Lab Results - Last 24 Hours (Table) 05/25/17 05/25/17 05/25/17 Range/Units 11:58 13:38 16:38 RBC (4.30-5.90) m/uL Hgb (13.0-17.5) gm/dL Hct (39.0-53.0) % Neutrophils # (1.3-7.7) k/uL Lymphocytes # (1.0-4.8) k/uL Sodium (137-145) mmol/L BUN (9-20) mg/dL Creatinine (0.66-1.25) mg/dL Glucose (74-99) mg/dL POC Glucose (mg/dL) 144 H 146 H 117 H (75-99) mg/dL Calcium (8.4-10.2) mg/dL 05/25/17 05/26/17 05/26/17 Range/Units 21:09 05:24 05:24 RBC 4.18 L (4.30-5.90) m/uL Hgb 11.7 L (13.0-17.5) gm/dL Hct 37.6 L (39.0-53.0) % Neutrophils # 7.9 H (1.3-7.7) k/uL Lymphocytes # 0.4 L (1.0-4.8) k/uL Sodium 134 L (137-145) mmol/L BUN 43 H (9-20) mg/dL Creatinine 6.80 H* (0.66-1.25) mg/dL Glucose 131 H (74-99) mg/dL POC Glucose (mg/dL) 137 H (75-99) mg/dL Calcium 8.0 L (8.4-10.2) mg/dL 05/26/17 Range/Units 06:08 RBC (4.30-5.90) m/uL Hgb (13.0-17.5) gm/dL Hct (39.0-53.0) % Neutrophils # (1.3-7.7) k/uL Lymphocytes # (1.0-4.8) k/uL Sodium (137-145) mmol/L BUN (9-20) mg/dL Creatinine (0.66-1.25) mg/dL Glucose (74-99) mg/dL POC Glucose (mg/dL) 133 H (75-99) mg/dL Calcium (8.4-10.2) mg/dL Microbiology - Last 24 Hours (Table) 05/22/17 14:15 Gram Stain - Preliminary Dialysate Body Fluid Culture - Preliminary 05/22/17 14:25 Blood Culture - Preliminary Blood No Growth after 72 hours 05/23/17 12:00 Gram Stain - Preliminary Dialysate Body Fluid Culture - Preliminary Assessment and Plan Plan: ASSESSMENT: Peritonitis, secondary to peritoneal dialysis, cultures positive for MSSA End-stage renal disease, on peritoneal dialysis, temporarily placed on hemodialysis secondary to peritonitis Abdominal pain, nausea, and vomiting secondary to peritonitis, improving Diabetes mellitus, type II, hemoglobin A1c 9.9% Coronary artery disease with previous myocardial infarction Peripheral vascular disease with history of left BKA and right partial foot amputation Anemia of chronic disease secondary to CKD Acute metabolic encephalopathy Left sided weakness, possible TIA History of MRSA infection in left lower extremity Hypertension History of seizures PLAN: -Nephrology on consult. Appreciate recommendations and input -Patient to undergo hemodialysis again today. -Antibiotic regimen per infectious disease. Currently on cefazolin 2 g IV every 24 hours -Patient will require 2 weeks of cefazolin per ID. No need for PICC, will receive 3gram cefazolin after each dialysis treatment x 2 weeks. -Attempt to give patient his oral meds due to improved mental status. If patient is unable, continue with hydralazine 10 mg every 4 hours when necessary for systolic blood pressure greater than 160 or diastolic blood pressure greater than 100. -Neurology on consult. Appreciate recommendations and input. -Patient to have repeat brain MRI in one month per neurology recommendations -Monitor labs -Monitor capillary blood glucose Accu-Cheks before meals and at bedtime. May require adjustment if patient's blood sugar decreases due to inability to take by mouth intake. -Continue humalog sliding scale before meals and at bedtime -Continue 10 units Levemir at bedtime -GI prophylaxis: Protonix 40 mg IV daily -DVT prophylaxis: Venodynes to right lower extremity -Monitor vital signs and address as appropriate -Discharge planning: Patient originally requesting to return home, but may likely require ECF placement. -PT/OT consult -Further recommendations pending patient's course Nurse practitioner note has been reviewed by physician. Signing provider agrees with the documented findings, assessment, and plan of care.
[2017-05-26 11:34] LABS: Glucose,Whole Blood 87 mg/dL (75-99)
[2017-05-26] MEDS: amLODIPine 10 MG TAB PO SCH (13:37)
[2017-05-26] MEDS: PANTOPRAZOLE 40 MG/10 ML VIAL IVP SCH (13:38)
[2017-05-26] MEDS: AMIODARONE 200 MG TAB PO SCH ×2 (13:38→21:11)
[2017-05-26] MEDS: THIAMINE 100 MG TAB PO SCH (13:39)
[2017-05-26] MEDS: levETIRAcetam IV 750 MG in SODIUM CHLORIDE 0.9% 100 ML IVPB SCH ×2 (13:56→22:00)
--- NOTE | 2017-05-26 14:03 | PN ---
PROGRESS NOTE DATE OF SERVICE: 05/26/2017 REASON FOR FOLLOWUP: 1. MSSA peritoneal dialysis-associated peritonitis. 2. Positive blood culture with Staph epi, likely contamination. INTERVAL HISTORY: The patient is afebrile. He seemed to be more awake and alert today. He is breathing comfortably. Denies significant chest pain. No shortness of breath. Occasional cough. No nausea, vomiting, or any diarrhea. PHYSICAL EXAMINATION: Blood pressure is 178/98 with a pulse of 100, temperature of 98.5. He is 94% on 3 L nasal cannula. General description is a middle-aged male, lying in bed in no distress. RESPIRATORY SYSTEM: Unlabored breathing, clear to auscultation anteriorly. HEART: S1, S2. Regular rate and rhythm. ABDOMEN: Soft, minimally tender, no guarding or rigidity. LABS: Hemoglobin is 11.7, white count of 9.1 with a BUN of 43, creatinine 6.0. DIAGNOSTIC IMPRESSION AND PLAN: Patient with Methicillin sensitive Staphylococcus aureus peritoneal dialysis peritonitis status post removal of the peritoneal dialysis catheter. He is currently getting hemodialysis and is on IV cefazolin. Will be pending for cefazolin 3 g post each dialysis for another 2 weeks on discharge. There is no need for a PICC line placement for outpatient antibiotic. Plan of care discussed in detail with the nurse practitioner for the primary team as well as the RN. Patient's questions were answered. MMODL / IJN: [id number] /
[2017-05-26] MEDS: LEVOTHYROXINE 25 MCG TAB PO SCH (14:05)
[2017-05-26] MEDS ORDERED: LISINOPRIL 10 MG TAB PO SCH (15:15)
[2017-05-26] MEDS: MORPHINE SULFATE 10 MG/ML SYRINGE IVP PRN ×2 (15:59→22:00)
--- NOTE | 2017-05-26 16:24 | PN ---
PROGRESS NOTE Patient is seen for followup for end-stage renal disease. He is currently seen on dialysis. His catheter is quite positional. It has been alarming quite a bit, but does respond to change in position. Blood pressure is running high, systolic around 180-190 mmHg and goal UF is set for about 1.5 L. The patient had his PD catheter removed yesterday. His mentation still remains depressed but improved from 2 days ago. The patient has been receiving dialysis on a daily basis for the last 3 days. Today is his third treatment in a row. PHYSICAL EXAMINATION: On examination, he is comfortable. He is not in any acute distress. Blood pressure is high 181/109, heart rate 100 per minute. He is afebrile. Examination of the heart S1, S2. Examination of the lungs bilateral breath sounds are heard. Abdomen is soft. There is tenderness noted. Examination of the lower extremities shows no significant edema right lower extremity. Left BKA is noted. The patient is responding to simple questions and he is easily arousable today. LAB: Show sodium 134, potassium 4.0, hemoglobin 11.7 g/dL. ASSESSMENT: 1. End-stage renal disease, on hemodialysis via a new right IJ PermCath. The patient has been switched over from PD to hemo secondary to severe PD peritonitis. 2. Continuous ambulatory peritoneal dialysis peritonitis with fluid cultures growing Staph aureus. It is a Methicillin-sensitive Staphylococcus aureus . The patient is maintained on vancomycin. 3. Chronic kidney disease, mineral bone disorder maintained on PhosLo and Renvela. However, patient has not been eating much. 4. History of seizures, maintained on Keppra and Depakote. Depakote level was not elevated. 5. Staph aureus PD peritonitis, MSSA, maintained on Kefzol now. The patient has received vancomycin initially. PLAN: Next hemodialysis treatment will be on Wednesday, which is 05/28/2017. Continue antibiotics for now. I will increase his antihypertensive medications if he remains hypertensive. Add PERLITA inhibitors. MMODL / IJN: [id number] /
[2017-05-26 16:39] LABS: Glucose,Whole Blood 111 mg/dL (75-99)
[2017-05-26] MEDS: ONDANSETRON 4 MG/2 ML VIAL IVP PRN (18:08)
[2017-05-26] MEDS: ceFAZolin IN SWFI 2 GM/20 ML SYRINGE IVP SCH (18:11)
[2017-05-26] MEDS: TAMSULOSIN 0.4 MG CAP.ER.24H PO SCH (18:17)
--- NOTE | 2017-05-26 20:21 | P.PN ---
Subjective Progress Note Date: 05/26/17 Principal diagnosis: PD cath peritonitis Patient with more alert today. He complains of only mild abdominal pain. He is very nauseated. He is having bilious emesis. Objective - Vital Signs Vital signs: Vital Signs Temp 98.5 F 05/26/17 17:04 Pulse 105 H 05/26/17 17:04 Resp 18 05/26/17 17:04 BP 182/99 05/26/17 17:04 Pulse Ox 97 05/26/17 17:04 Intake & Output 05/26/17 05/26/17 05/27/17 06:59 18:59 06:59 Intake Total 45 0 Output Total 300 500 Balance -255 -500 Weight 97 kg 97 kg Intake: IV 45 Sodium Chloride 0.9% 1, 45 000 ml @ 120 mls/hr IV . Q8H20M [facility] Rx#:[id number] Oral 0 Output: Urine 300 500 Other: Voiding Method Urinal Urinal # Voids 0 - Exam Abdomen: Incision clean and dry, mild tenderness - Labs CBC & Chem 7: 05/26/17 05:24 05/26/17 05:24 Labs: Abnormal Lab Results - Last 24 Hours (Table) 05/25/17 05/26/17 05/26/17 Range/Units 21:09 05:24 05:24 RBC 4.18 L (4.30-5.90) m/uL Hgb 11.7 L (13.0-17.5) gm/dL Hct 37.6 L (39.0-53.0) % Neutrophils # 7.9 H (1.3-7.7) k/uL Lymphocytes # 0.4 L (1.0-4.8) k/uL Sodium 134 L (137-145) mmol/L BUN 43 H (9-20) mg/dL Creatinine 6.80 H* (0.66-1.25) mg/dL Glucose 131 H (74-99) mg/dL POC Glucose (mg/dL) 137 H (75-99) mg/dL Calcium 8.0 L (8.4-10.2) mg/dL 05/26/17 05/26/17 Range/Units 06:08 16:38 RBC (4.30-5.90) m/uL Hgb (13.0-17.5) gm/dL Hct (39.0-53.0) % Neutrophils # (1.3-7.7) k/uL Lymphocytes # (1.0-4.8) k/uL Sodium (137-145) mmol/L BUN (9-20) mg/dL Creatinine (0.66-1.25) mg/dL Glucose (74-99) mg/dL POC Glucose (mg/dL) 133 H 111 H (75-99) mg/dL Calcium (8.4-10.2) mg/dL Microbiology - Last 24 Hours (Table) 05/22/17 14:25 Blood Culture - Preliminary Blood No Growth after 96 hours 05/23/17 12:00 Gram Stain - Preliminary Dialysate Body Fluid Culture - Preliminary 05/22/17 14:15 Gram Stain - Preliminary Dialysate Body Fluid Culture - Preliminary Assessment and Plan (1) Peritonitis due to infected peritoneal dialysis catheter Narrative/Plan: Continue hemodialysis and IV antibiotics. Gradually increase diet as nausea improves. Current Visit: Yes Status: Acute Code(s): T85.71XA - INFECT/INFLM REACTION DUE TO PERITON DIALYSIS CATHETER, INIT; K65.9 - PERITONITIS, UNSPECIFIED SNOMED Code(s): 237474133
[2017-05-26 20:31] LABS: Glucose,Whole Blood 107 mg/dL (75-99)
[2017-05-26] MEDS: INSULIN DETEMIR 100 UNIT/ML 10 ML VIAL SQ SCH (21:10)
[2017-05-26] MEDS: ATORVASTATIN 80 MG TAB PO SCH (21:11)
--- NOTE | 2017-05-26 22:30 | P.PN ---
Subjective Progress Note Date: 05/26/17 This patient is a 46 year old male being evaluated for left sided weakness and possible stroke. The patient yesterday had symptoms of acute left-sided hemiparesis and weakness. He was evaluated by Dr. Shoemaker. There was concern for possibility of acute stroke and neurology was consulted. Patient underwent MRI of the brain today for further evaluation of acute stroke. MRI results indicate nonspecific white matter changes in the posterior circulation and involving the parietal and occipital lobes. This raises the possibility of posterior reversible encephalopathy syndrome (PRES). Patient had no evidence of acute ischemia on diffusion-weighted imaging. There was evidence of a small 2.3 cm left middle cranial fossa arachnoid cyst. The patient continues to be treated for underlying sepsis. He has evidence of an MSSA and peritoneal dialysis catheter associated peritonitis. His peritoneal dialysis catheter was removed by general surgery. Patient did have a permacath placement for hemodialysis. He is being followed closely by infectious disease. He continues on multiple antibiotics at this time. The patient's mental status has not shown much improvement this evening. According to the nursing staff he was much more alert today as compared to yesterday. We did review the results of the MRI today with the patient. It is unclear whether he has a clear understanding of the results at this time. Clearly there is no evidence for acute stroke on the MRI. the patient's overall mental status is improved from yesterday. He is more awake and alert. His speech is more clear today as well. We will continue close neurological follow-up of this patient. Patient would benefit from a repeat MRI of the brain in 1 month to see if there is any improvement or changes in the posterior section of the brain. As noted the differential would include PRES Syndrome. This patient's Depakote level came back at 43.3. His Keppra level also was completed yesterday and was 46.1. We will give the patient an extra dose of Depakote tonight. He has had no active seizures. He did have hemodialysis today. The patient has been switched from peritoneal dialysis to hemodialysis due to his severe peritonitis. We will continue close neurological follow-up with this patient during this admission. His Keppra level is therapeutic at 46.1. We will continue close neurological follow-up for this patient during this admission. His overall prognosis at this time remains guarded. Objective - Vital Signs Vital signs: Vital Signs Temp 98.5 F 05/26/17 17:04 Pulse 105 H 05/26/17 17:04 Resp 18 05/26/17 17:04 BP 182/99 05/26/17 17:04 Pulse Ox 97 05/26/17 17:04 Intake & Output 05/26/17 05/26/17 05/27/17 06:59 18:59 06:59 Intake Total 45 0 Output Total 300 500 Balance -255 -500 Weight 97 kg 97 kg Intake: IV 45 Sodium Chloride 0.9% 1, 45 000 ml @ 120 mls/hr IV . Q8H20M [facility] Rx#:[id number] Oral 0 Output: Urine 300 500 Other: Voiding Method Urinal Urinal # Voids 0 - Exam Physical examination: PHYSICAL EXAMINATION: Patient is resting comfortably in bed. VITAL SIGNS: Blood pressure is [182/99]. Heart rate is [105]. Respiration is [18 ]. Temperature is [98.5]. HEENT: Head is atraumatic, neck is supple, there were no carotid bruits. CHEST: Lungs are clear to auscultation and percussion. CARDIAC: S1, S2 normal rate and rhythm. There is no murmur. ABDOMEN: Soft and nontender. Bowel sounds are present. EXTREMITIES: There is no pedal edema. Peripheral pulses are present. Neurological examination: Patient's neurological status remains unchanged from yesterday. He remains confused and encephalopathic, but slightly improved from yesterday. We did review his MRI results today with him. - Labs CBC & Chem 7: 05/26/17 05:24 05/26/17 05:24 Labs: Abnormal Lab Results - Last 24 Hours (Table) 05/25/17 05/26/17 05/26/17 Range/Units 21:09 05:24 05:24 RBC 4.18 L (4.30-5.90) m/uL Hgb 11.7 L (13.0-17.5) gm/dL Hct 37.6 L (39.0-53.0) % Neutrophils # 7.9 H (1.3-7.7) k/uL Lymphocytes # 0.4 L (1.0-4.8) k/uL Sodium 134 L (137-145) mmol/L BUN 43 H (9-20) mg/dL Creatinine 6.80 H* (0.66-1.25) mg/dL Glucose 131 H (74-99) mg/dL POC Glucose (mg/dL) 137 H (75-99) mg/dL Calcium 8.0 L (8.4-10.2) mg/dL 05/26/17 05/26/17 Range/Units 06:08 16:38 RBC (4.30-5.90) m/uL Hgb (13.0-17.5) gm/dL Hct (39.0-53.0) % Neutrophils # (1.3-7.7) k/uL Lymphocytes # (1.0-4.8) k/uL Sodium (137-145) mmol/L BUN (9-20) mg/dL Creatinine (0.66-1.25) mg/dL Glucose (74-99) mg/dL POC Glucose (mg/dL) 133 H 111 H (75-99) mg/dL Calcium (8.4-10.2) mg/dL Microbiology - Last 24 Hours (Table) 05/22/17 14:25 Blood Culture - Preliminary Blood No Growth after 96 hours 05/23/17 12:00 Gram Stain - Preliminary Dialysate Body Fluid Culture - Preliminary 05/22/17 14:15 Gram Stain - Preliminary Dialysate Body Fluid Culture - Preliminary Assessment and Plan (1) TIA (transient ischemic attack) Current Visit: Yes Status: Acute SNOMED Code(s): 918538845 (2) Acute encephalopathy Current Visit: Yes Status: Acute SNOMED Code(s): 4021004 (3) Seizure disorder Current Visit: Yes Status: Acute SNOMED Code(s): 795517408 (4) Encounter for CAPD (continuous ambulatory peritoneal dialysis) Current Visit: Yes Status: Acute SNOMED Code(s): 321410890 (5) Peritonitis due to infected peritoneal dialysis catheter Current Visit: Yes Status: Acute SNOMED Code(s): 852610678 (6) Chronic renal failure Current Visit: Yes Status: Chronic SNOMED Code(s): 11124181 (7) Diabetes mellitus Current Visit: Yes Status: Chronic SNOMED Code(s): 86402087 Plan: This patient is a 46-year-old male who was admitted to hospital for treatment of acute or tinnitus. He was on peritoneal dialysis and developed diffuse peritonitis. He is now been switched over to hemodialysis. He had a new right IJ permacath placed for his hemodialysis. He is more awake and alert today as compared to yesterday. He is answering questions appropriately. His Keppra level did come back therapeutic. His Depakote level is slightly subtherapeutic at 43.3. We will give an extra dose of Depakote tonight. Patient has not had any breakthrough seizures. He does have generalized weakness with no focal weakness specifically on his left side. We will continue close neurological follow-up for the patient. As noted his MRI of the brain failed to reveal any evidence of acute stroke. His overall prognosis at this time remains guarded. We will continue close neurological follow-up of this patient during this admission.
[2017-05-26] MEDS ORDERED: DIVALPROEX 500 MG TABLET.DR PO STA (22:35)
[2017-05-27] MEDS: ONDANSETRON 4 MG/2 ML VIAL IVP PRN ×3 (02:04→18:01)
[2017-05-27] MEDS: MORPHINE SULFATE 10 MG/ML SYRINGE IVP PRN ×2 (05:12→08:54)
[2017-05-27 05:50] LABS: Glucose,Whole Blood 95 mg/dL (75-99)
[2017-05-27 06:08] LABS: Basophils % (A) 0 %; CH 27.1; CHCM 30.7; Eosinophils % (A) 0 %; HDW 3.07; HGB 11.4 gm/dL (13.0-17.5); Hypochromasia Moderate; Luc # (Auto) 0.12; Luc % (Auto) 2; Lymphocytes # (A) 0.6 k/uL (1.0-4.8); Lymphocytes % (A) 8 %; MCH 27.3 pg (25.0-35.0); MCHC 30.9 g/dL (31.0-37.0); MCV 88.2 fL (80.0-100.0); Mean Platelet Volume 7.2; Monocytes # (A) 0.7 k/uL (0-1.0); Monocytes % (A) 9 %; Neutrophils # (A) 6.1 k/uL (1.3-7.7); Neutrophils % (A) 81 %; RDW 15.2 % (11.5-15.5); WBC 7.6 k/uL (3.8-10.6); WBC (Perox) 7.73
[2017-05-27 06:19] LABS: Calcium 8.3 mg/dL (8.4-10.2); Potassium 3.6 mmol/L (3.5-5.1)
[2017-05-27] MEDS: INSULIN ASPART 100 UNIT/ML 1 ML 10 ML VIAL SQ SCH ×3 (06:58→17:31)
[2017-05-27] MEDS: CALCIUM ACETATE 667 MG CAP PO SCH ×4 (06:59→19:21)
[2017-05-27] MEDS: SEVELAMER 800 MG TAB PO SCH ×4 (06:59→19:21)
[2017-05-27] MEDS: METOCLOPRAMIDE 5 MG/ML 2 ML VIAL IVP PRN ×2 (08:55→20:20)
[2017-05-27] MEDS: AMIODARONE 200 MG TAB PO SCH ×2 (09:01→20:20)
[2017-05-27] MEDS: LEVOTHYROXINE 25 MCG TAB PO SCH (09:01)
[2017-05-27] MEDS: PANTOPRAZOLE 40 MG/10 ML VIAL IVP SCH (09:01)
[2017-05-27] MEDS: amLODIPine 10 MG TAB PO SCH (09:01)
--- NOTE | 2017-05-27 09:07 | P.PN ---
Subjective Patient is seen in follow-up for end-stage renal disease. Patient was maintained on peritoneal dialysis and presented with abdominal pain along with a cloudy dialysate. He was noted to have refractory peritonitis with fluid culture positive for staph aureus. He also blood culture that was positive for staph capitis. He is currently maintained on IV. Peritoneal dialysis catheter has been removed. Patient continues to have nausea. Oral intake is slowly improving. Still has abdominal discomfort. He underwent hemodialysis last 3 days in a row. Vital signs are stable. General: The patient appeared well nourished and normally developed. HEENT: Head exam is unremarkable. Neck is without jugular venous distension. LUNGS: Lungs are clear to auscultation and percussion. Breath sounds decreased. HEART: Rate and Rhythm are regular. First and second heart sounds normal. No murmurs, rubs or gallops. ABDOMEN: Abdominal exam reveals normal bowel sounds. Generalized tenderness. EXTREMITITES: No clubbing, cyanosis, or edema. Left BKA noted. Objective - Vital Signs Vital signs: Vital Signs Temp 98.5 F 05/27/17 08:40 Pulse 98 05/27/17 08:40 Resp 20 05/27/17 08:40 BP 196/91 05/27/17 08:40 Pulse Ox 99 05/27/17 08:40 Intake & Output 05/26/17 05/27/17 05/27/17 18:59 06:59 18:59 Intake Total 0 0 0 Output Total 500 100 Balance -500 -100 0 Weight 97 kg 97.6 kg Intake: Oral 0 0 0 Output: Urine 500 100 Other: Voiding Method Urinal Urinal # Voids 0 - Labs CBC & Chem 7: 05/27/17 05:20 05/27/17 05:20 Labs: Abnormal Lab Results - Last 24 Hours (Table) 05/26/17 05/26/17 05/27/17 Range/Units 16:38 20:30 05:20 RBC 4.20 L (4.30-5.90) m/uL Hgb 11.4 L (13.0-17.5) gm/dL Hct 37.0 L (39.0-53.0) % MCHC 30.9 L (31.0-37.0) g/dL Lymphocytes # 0.6 L (1.0-4.8) k/uL Sodium (137-145) mmol/L Carbon Dioxide (22-30) mmol/L BUN (9-20) mg/dL Creatinine (0.66-1.25) mg/dL Glucose (74-99) mg/dL POC Glucose (mg/dL) 111 H 107 H (75-99) mg/dL Calcium (8.4-10.2) mg/dL 05/27/17 Range/Units 05:20 RBC (4.30-5.90) m/uL Hgb (13.0-17.5) gm/dL Hct (39.0-53.0) % MCHC (31.0-37.0) g/dL Lymphocytes # (1.0-4.8) k/uL Sodium 134 L (137-145) mmol/L Carbon Dioxide 19 L (22-30) mmol/L BUN 38 H (9-20) mg/dL Creatinine 5.20 H* (0.66-1.25) mg/dL Glucose 103 H (74-99) mg/dL POC Glucose (mg/dL) (75-99) mg/dL Calcium 8.3 L (8.4-10.2) mg/dL Microbiology - Last 24 Hours (Table) 05/22/17 14:15 Gram Stain - Final Dialysate Body Fluid Culture - Final 05/22/17 14:25 Blood Culture - Preliminary Blood No Growth after 96 hours 05/23/17 12:00 Gram Stain - Preliminary Dialysate Body Fluid Culture - Preliminary Assessment and Plan Plan: Assessment: #1. End-stage renal disease now maintained on hemodialysis. #2. CAPD associated peritonitis status post peritoneal dialysis catheter removal. #3. Staph capitis bacteremia. #4. Insulin-dependent diabetes mellitus. #5. Chronic kidney disease mineral bone disease maintained on Renvela and PhosLo. #6. Hypertension with chronic kidney disease. Uncontrolled. Partially related to pain and nausea. #7. Metabolic acidosis secondary to chronic kidney disease. #8. History of seizures intake and on Keppra and Depakote. Plan: Hemodialysis tomorrow. I will increase lisinopril to 20 mg daily. Continue with pain control and antiemetics. Maintain hydralazine as needed for systolic blood pressure greater than 160. Add oral sodium bicarbonate 650 mg twice daily. Antibiotics per infectious disease recommendations.
[2017-05-27] MEDS: VALPROATE SODIUM 750 MG in SODIUM CHLORIDE 0.9% 50 ML IVPB SCH ×3 (09:59→23:26)
[2017-05-27] MEDS: LISINOPRIL 20 MG TAB PO SCH (10:05)
[2017-05-27] MEDS: SODIUM BICARBONATE TAB 650 MG TAB PO SCH ×2 (10:06→20:20)
[2017-05-27] MEDS: THIAMINE 100 MG TAB PO SCH (10:06)
[2017-05-27] MEDS ORDERED: HEPARIN SODIUM,PORCINE 5,000 UNIT/ML 1 ML VIAL ONE (10:30)
--- NOTE | 2017-05-27 10:32 | P.PN ---
Subjective Progress Note Date: 05/27/17 Principal diagnosis: PD cath peritonitis Much better today. Denies abdominal pain. His nausea has improved. Objective - Vital Signs Vital signs: Vital Signs Temp 98.5 F 05/27/17 08:40 Pulse 93 05/27/17 09:58 Resp 20 05/27/17 08:40 BP 173/91 05/27/17 09:58 Pulse Ox 99 05/27/17 08:40 Intake & Output 05/26/17 05/27/17 05/27/17 18:59 06:59 18:59 Intake Total 0 0 0 Output Total 500 100 Balance -500 -100 0 Weight 97 kg 97.6 kg Intake: Oral 0 0 0 Output: Urine 500 100 Other: Voiding Method Urinal Urinal # Voids 0 0 # Bowel Movements 0 - Exam Abdomen: Soft, nondistended, minimal tenderness, incision clean and dry - Labs CBC & Chem 7: 05/27/17 05:20 05/27/17 05:20 Labs: Abnormal Lab Results - Last 24 Hours (Table) 05/26/17 05/26/17 05/27/17 Range/Units 16:38 20:30 05:20 RBC 4.20 L (4.30-5.90) m/uL Hgb 11.4 L (13.0-17.5) gm/dL Hct 37.0 L (39.0-53.0) % MCHC 30.9 L (31.0-37.0) g/dL Lymphocytes # 0.6 L (1.0-4.8) k/uL Sodium (137-145) mmol/L Carbon Dioxide (22-30) mmol/L BUN (9-20) mg/dL Creatinine (0.66-1.25) mg/dL Glucose (74-99) mg/dL POC Glucose (mg/dL) 111 H 107 H (75-99) mg/dL Calcium (8.4-10.2) mg/dL 05/27/17 Range/Units 05:20 RBC (4.30-5.90) m/uL Hgb (13.0-17.5) gm/dL Hct (39.0-53.0) % MCHC (31.0-37.0) g/dL Lymphocytes # (1.0-4.8) k/uL Sodium 134 L (137-145) mmol/L Carbon Dioxide 19 L (22-30) mmol/L BUN 38 H (9-20) mg/dL Creatinine 5.20 H* (0.66-1.25) mg/dL Glucose 103 H (74-99) mg/dL POC Glucose (mg/dL) (75-99) mg/dL Calcium 8.3 L (8.4-10.2) mg/dL Microbiology - Last 24 Hours (Table) 05/22/17 14:15 Gram Stain - Final Dialysate Body Fluid Culture - Final 05/22/17 14:25 Blood Culture - Preliminary Blood No Growth after 96 hours 05/23/17 12:00 Gram Stain - Preliminary Dialysate Body Fluid Culture - Preliminary Assessment and Plan (1) Peritonitis due to infected peritoneal dialysis catheter Narrative/Plan: Continue hemodialysis per nephrology. We'll sign off at this point. Please contact if needed. Current Visit: Yes Status: Acute Code(s): T85.71XA - INFECT/INFLM REACTION DUE TO PERITON DIALYSIS CATHETER, INIT; K65.9 - PERITONITIS, UNSPECIFIED SNOMED Code(s): 679075820
[2017-05-27] MEDS: levETIRAcetam IV 750 MG in SODIUM CHLORIDE 0.9% 100 ML IVPB SCH ×2 (11:26→20:20)
[2017-05-27 12:00] LABS: Glucose,Whole Blood 79 mg/dL (75-99)
[2017-05-27] MEDS: SCOPOLAMINE 1.5MG/72HR PATCH TRANSDERM SCH (13:15)
--- NOTE | 2017-05-27 13:19 | P.PN ---
Subjective Progress Note Date: 05/27/17 05/21/2017 46-year-old male who presented to the emergency room on 05/20/2017 with a chief complaint of abdominal pain and cloudy peritoneal fluid. The patient states he has had abdominal pain that has persisted for two days. He also complained of intermittent nausea and vomiting. He states that he noticed his peritoneal fluid was becoming cloudy as well. The patient has a history of end-stage renal disease. He states he has been on peritoneal dialysis for 2-1/2 years. He states prior to that he did hemodialysis for 8 months but he did not tolerate and had multiple side effects and was then transitioned to peritoneal dialysis. He also has history of coronary artery disease, diabetes mellitus, DVT, gastro-esophageal reflux disease, hypertension, hyperlipidemia, myocardial infarction, and peripheral vascular disease with a left [id number] mutation and a right foot partial amputation. He states he has a wound to his right calf that is not healing. He also has a history of MRSA in 2014 in his blood and left foot. In the emergency room, a chest x-ray was completed which showed bilateral infiltrates. KUB was completed which showed small pneumoperitoneum which was thought to be related to dialysis port. Peritoneal fluid was sent for culture. Sodium on admission was 139, potassium 3.4, BUN 53, creatinine 12.04, WBCs 11.4, hemoglobin 12.7, platelets 176. Troponin was negative 1. Lactic acid on admission was 1.3 It was also noted that while the patient was in the emergency room he received IV pain medication and became unresponsive and apneic and it was difficult to feel a pulse. ER staff started CPR and the patient was revived. The patient also received Narcan. After CPR, there was thoughts of possible rib fractures. Chest xray was completed which was negative for rib fractures. IV pain medication has since been discontinued. The patient was admitted to the hospital under the care of Dr. Aguilar. Consultations were placed to nephrology. The patient was seen and examined at the bedside with Dr. Aguilar on rounds. He states he is feeling okay today. He does continue to complain of abdominal pain but states it is improving. He denies nausea or vomiting. He is tolerating a consistent carbohydrate diet without nausea or vomiting. He remains in contact isolation for history of MRSA infection. He remains on Rocephin and Vanco. He remains on 2L NC with oxygen saturations greater than 92%. Blood pressure is stable. He is afebrile. 05/22/2017 (Notes per Dr. Aguilar) Patient has a recurrent history of end-stage renal disease. Currently maintained on peritoneal dialysis. She presented to the hospital with peritonitis persistent abdominal pain. His total cell count, has come down but PMN count stays quite elevated. One set of blood cultures also came back positive for gram-positive cocci. Patient has been vomiting with some retching today. 05/23/2017 (Notes per Dr. Aguilar) Patient has a recurrent history of end-stage renal disease. Currently maintained on peritoneal dialysis. She presented to the hospital with peritonitis persistent abdominal pain. His total cell count, has come down but PMN count stays quite elevated. One set of blood cultures also came back positive for coagulase-negative staph, and staph aureus . Patient was started on IV Vanco yesterday by Dr. Mann patient has been getting Vanco in his peritoneal dialysis fluid as well I believe once every 5 days 05/24/2017 Patient was noted to have left sided weakness over the weekend. Neuro was consulted. CT of the brain was completed and was negative for acute process. Patient underwent MRI of the brain which revealed nonspecific white matter changes predominating within the posterior circulation in the parietal and occipital lobes, 2.3cm left middle cranial fossa arachnoid cyst with minimal mass effect on temporal lobe, and 3cm maxillary cyst. The patient has had problems with his PD draining properly. Nephrology is following. The patient will need PD catheter removed to ensure infection completely resolves. In the meantime, Dr. Ramirez was consulted for hemodialysis catheter placement. The patient will require short term HD until infection resolves and then can transition back to PD per nephrology. General surgery has been consulted for removal of PD catheter. Infectious disease is following. Positive for MSSA. Patients blood cultures positive for coagulase negative, which is likely a contaminated specimen. Repeat cultures are negative. 05/25/2017 Patient seen and examined at the bedside. Patient remains very lethargic. He was able to open his eyes and mumble a few words, which she was unable to do yesterday. The patient underwent hemodialysis catheter insertion yesterday and had his first hemodialysis session last night. The patient is scheduled today for removal of peritoneal dialysis catheter with Dr. Adorno. Per nursing, the patient is supposed to undergo hemodialysis again today. His creatinine has improved from 11.3 to 8.92. The patient is unable to take any of his oral medications due to his altered mental status. His blood pressure this morning is elevated at 180/91. He remains on 3 L nasal cannula and maintaining an oxygen saturation greater than 92%. He did have a low-grade fever of 99.1 F axillary this morning. He remains on cefazolin per infectious disease for positive MSSA. Patient originally wanted to return home at the time of discharge. However, due to the patient's current condition, he will likely require ECF placement when he is stable for discharge. This was discussed with social work and case management and consultations were placed to PT and OT for evaluation. 05/26/2017 Patient seen and examined at the bedside. Patient is significantly less lethargic than yesterday. He is communicating well and able to answer questions appropriately. Bilateral hand grasps are strong and equal. Neurology recommends patient to have a repeat CT of the head in one month. Patient is currently undergoing dialysis and tolerating well. Patient currently reeciving cefazolin and will require two more weeks per Dr. Piedra. Spoke with him this morning who states patient will not need a PICC line and can receive 3gram after each dialysis treatment for the next two weeks. PT/OT have been consulted to assess patients mobility and evaluate for possible ECF placement if he is unable to care for himself at home. 05/27/2017 Patient seen and evaluated at the bedside. Patient remains more awake and alert. Patient has undergone dialysis for the last 3 days and tolerated well. He is scheduled for dialysis tomorrow. His creatinine this morning is 5.2. Patients blood pressure has remained elevated. Hydralazine has ordered PRN every 4 hours as needed but nursing has only been administering 1-2 times daily per their MAR documentation. He was able to take his oral antihypertensives yesterday. He takes norvasc at home. He was also started on lisinopril per nephrology. The patient has had no PO intake secondary to lethargy. Spoke with dietary yesterday who asked about NG feeding. Since patient was more awake yesterday, NG was deferred and nursing was asked to feed patient his meals. Nursing states the patient is still not eating and continues to throw up bile. Spoke with case management regarding discharge planning and stated she will speak with patient and family regarding possible ECF placement. Dr. Aguilar spoke to patient yesterday and recommended patient go to subacute rehab for a short time since he has been in bed for a week to build his strength. PT/OT was consulted and has been unable to work with patient due to lethargy and dialysis treatments. Yesterday PT attempted to work with patient but his left knee prosthesis was not in the patients room. Patient had it with him during his admission so family may have taken it home. Nursing was asked to follow up with his family. Objective - Vital Signs Vital signs: Vital Signs Temp 98.5 F 05/27/17 08:40 Pulse 93 05/27/17 09:58 Resp 20 05/27/17 08:40 BP 173/91 05/27/17 09:58 Pulse Ox 99 05/27/17 08:40 Intake & Output 05/26/17 05/27/17 05/27/17 18:59 06:59 18:59 Intake Total 0 0 0 Output Total 500 100 Balance -500 -100 0 Weight 97 kg 97.6 kg Intake: Oral 0 0 0 Output: Urine 500 100 Other: Voiding Method Urinal Urinal # Voids 0 0 # Bowel Movements 0 - Exam GENERAL: This is a 46-year-old male who is awake and alert today. Able to answer questions and follow commands. HEENT: Head is atraumatic, normocephalic. Left pupil 2 mm, round, and sluggish. Right pupil 3 mm, oval, and sluggish. Sclerae anicteric. Conjunctivae are clear. Mucus membranes of the mouth are moist. Neck is supple. Hemodialysis catheter present. RESPIRATORY: Clear to ausculation. No wheezes, rales, or rhonchi. Diminished at the bases. No use of accessory muscles. Patient maintaining oxygen saturation greater than 92% on 3 L nasal cannula. No chest wall tenderness is noted on palpation or with deep breathing. CARDIOVASCULAR: Regular rate and rhythm. S1 and S2 noted. No systolic or diastolic murmur auscultated. No JVD noted. No S3 or S4 noted. GASTROINTESTINAL: Patient continues to have nausea and vomiting bile. Pain and tenderness upon palpation. No distention noted. Abdomen soft and round. Normal active bowel sounds auscultated x 4 quadrants. INTEGUMENTARY: Chronic wound noted to right calf. No cyanosis. No jaundice. No rashes noted. No cellulitis noted. EXTREMITIES: Left below the knee amputation. Right partial foot amputation. No evidence of peripheral edema. No calf tenderness noted. NEUROLOGIC: Cranial nerves II-XII intact. PSYCHIATRIC: Awake and alert. Appears more orientated today. - Labs CBC & Chem 7: 05/27/17 05:20 05/27/17 05:20 Labs: Abnormal Lab Results - Last 24 Hours (Table) 05/26/17 05/26/17 05/27/17 Range/Units 16:38 20:30 05:20 RBC 4.20 L (4.30-5.90) m/uL Hgb 11.4 L (13.0-17.5) gm/dL Hct 37.0 L (39.0-53.0) % MCHC 30.9 L (31.0-37.0) g/dL Lymphocytes # 0.6 L (1.0-4.8) k/uL Sodium (137-145) mmol/L Carbon Dioxide (22-30) mmol/L BUN (9-20) mg/dL Creatinine (0.66-1.25) mg/dL Glucose (74-99) mg/dL POC Glucose (mg/dL) 111 H 107 H (75-99) mg/dL Calcium (8.4-10.2) mg/dL 05/27/17 Range/Units 05:20 RBC (4.30-5.90) m/uL Hgb (13.0-17.5) gm/dL Hct (39.0-53.0) % MCHC (31.0-37.0) g/dL Lymphocytes # (1.0-4.8) k/uL Sodium 134 L (137-145) mmol/L Carbon Dioxide 19 L (22-30) mmol/L BUN 38 H (9-20) mg/dL Creatinine 5.20 H* (0.66-1.25) mg/dL Glucose 103 H (74-99) mg/dL POC Glucose (mg/dL) (75-99) mg/dL Calcium 8.3 L (8.4-10.2) mg/dL Microbiology - Last 24 Hours (Table) 05/22/17 14:15 Gram Stain - Final Dialysate Body Fluid Culture - Final 05/22/17 14:25 Blood Culture - Preliminary Blood No Growth after 96 hours 05/23/17 12:00 Gram Stain - Preliminary Dialysate Body Fluid Culture - Preliminary Assessment and Plan Plan: ASSESSMENT: Peritonitis, secondary to peritoneal dialysis, cultures positive for MSSA End-stage renal disease, on peritoneal dialysis, temporarily placed on hemodialysis secondary to peritonitis Abdominal pain, nausea, and vomiting secondary to peritonitis Diabetes mellitus, type II, hemoglobin A1c 9.9% Coronary artery disease with previous myocardial infarction Peripheral vascular disease with history of left BKA and right partial foot amputation Anemia of chronic disease secondary to CKD Acute metabolic encephalopathy Left sided weakness, possible TIA History of MRSA infection in left lower extremity Hypertension History of seizures PLAN: -Obtain abdominal xray -Short term PPN until patient is able to tolerate increased PO intake -Encourage glucerna intake as tolerated -Nephrology on consult. Appreciate recommendations and input -Patient to undergo hemodialysis tomorrow -Antibiotic regimen per infectious disease. Currently on cefazolin 2 g IV every 24 hours -Patient will require 2 weeks of cefazolin per ID. No need for PICC, will receive 3gram cefazolin after each dialysis treatment x 2 weeks. -Attempt to give patient his oral meds due to improved mental status. If patient is unable, continue with hydralazine 10 mg every 4 hours when necessary for systolic blood pressure greater than 160 or diastolic blood pressure greater than 100. -Neurology on consult. Appreciate recommendations and input. -Patient to have repeat brain MRI in one month per neurology recommendations -Monitor labs -Monitor capillary blood glucose Accu-Cheks before meals and at bedtime. -Continue humalog sliding scale before meals and at bedtime -Continue 10 units Levemir at bedtime -GI prophylaxis: Protonix 40 mg IV daily -DVT prophylaxis: Venodynes to right lower extremity -Monitor vital signs and address as appropriate -Discharge planning: Will require ECF placement. Patient requesting [facility]. -PT/OT consult -Further recommendations pending patient's course Nurse practitioner note has been reviewed by physician. Signing provider agrees with the documented findings, assessment, and plan of care.
--- NOTE | 2017-05-27 13:31 | XR ---
Abdomen HISTORY: Peritonitis Frontal view of the abdomen submitted on 2 images correlated to prior exam 05/22/2017 The patient's catheter has been removed. Dense vascular calcifications are present within the pelvis. Vertebral plasty change present at T12 is again noted, there are surgical clips in the right upper q uadrant. No evident pneumoperitoneum or bowel obstruction. There may be underlying ascites, the abdom en. Lung bases not included on the exam. There are overlying cardiac leads. IMPRESSION: Correlate for possible ascites. Postop, postprocedural changes.
[2017-05-27] MEDS: MORPHINE SULFATE 4 MG/ML SYRINGE IVP PRN ×2 (15:42→18:53)
[2017-05-27 17:24] LABS: Glucose,Whole Blood 81 mg/dL (75-99)
[2017-05-27] MEDS: ceFAZolin IN SWFI 2 GM/20 ML SYRINGE IVP SCH (17:50)
[2017-05-27] MEDS: TAMSULOSIN 0.4 MG CAP.ER.24H PO SCH (19:22)
--- NOTE | 2017-05-27 20:19 | PN ---
PROGRESS NOTE DATE OF SERVICE: 05/27/2017 REASON FOR FOLLOWUP: MSSA peritoneal dialysis peritonitis. INTERVAL HISTORY: The patient is afebrile. He has been more awake and alert, breathing comfortably. Denies significant chest pain or shortness of breath, no cough. No abdominal pain. Did have some nausea and an episode of vomiting this morning. EXAMINATION: Blood pressure 131/87 with a pulse of 90, temperature 96. He is 98% on room air. General description is a middle-aged male lying in bed in no distress. RESPIRATORY SYSTEM: Unlabored breathing. Clear to auscultation anteriorly. HEART: S1, S2. Regular rate and rhythm. ABDOMEN: Soft, no tenderness. LABS: Hemoglobin 11.4, white count 7.6 with a BUN of 38, creatinine 5.20. DIAGNOSTIC IMPRESSION AND PLAN: Patient with MSSA peritoneal dialysis with secondary peritonitis, status post removal of the dialysis catheter. Currently getting hemodialysis and on IV cefazolin. Will be recommended cefazolin 3 g post dialysis for at least 2 weeks on discharge through the dialysis fluid so we do not have to do a PICC line. Continue supportive care. MMODL / IJN: [id number] /
[2017-05-27] MEDS: ATORVASTATIN 80 MG TAB PO SCH (20:20)
[2017-05-27 21:06] LABS: Glucose,Whole Blood 97 mg/dL (75-99)
[2017-05-27] MEDS: INSULIN DETEMIR 100 UNIT/ML 10 ML VIAL SQ SCH (21:24)
[2017-05-28] MEDS: ONDANSETRON 4 MG/2 ML VIAL IVP PRN ×2 (04:32→23:14)
[2017-05-28] MEDS: MORPHINE SULFATE 4 MG/ML SYRINGE IVP PRN ×4 (07:29→20:33)
[2017-05-28 07:36] LABS: Glucose,Whole Blood 115 mg/dL (75-99)
[2017-05-28] MEDS: INSULIN ASPART 100 UNIT/ML 1 ML 10 ML VIAL SQ SCH ×3 (07:54→17:28)
[2017-05-28 08:01] LABS: Basophils % (A) 0 %; CH 27.9; CHCM 31.1; Eosinophils # (A) 0.1 k/uL (0-0.7); Eosinophils % (A) 1 %; HCT 35.7 % (39.0-53.0); Hypochromasia Moderate; Luc # (Auto) 0.08; Luc % (Auto) 1; Lymphocytes # (A) 0.5 k/uL (1.0-4.8); Lymphocytes % (A) 9 %; MCH 27.6 pg (25.0-35.0); MCHC 30.8 g/dL (31.0-37.0); MCV 89.6 fL (80.0-100.0); Mean Platelet Volume 6.8; Monocytes # (A) 0.4 k/uL (0-1.0); Monocytes % (A) 7 %; Neutrophils # (A) 4.7 k/uL (1.3-7.7); Neutrophils % (A) 82 %; RBC 3.99 m/uL (4.30-5.90); RDW 15.5 % (11.5-15.5); WBC 5.8 k/uL (3.8-10.6)
[2017-05-28] MEDS: VALPROATE SODIUM 750 MG in SODIUM CHLORIDE 0.9% 50 ML IVPB SCH ×3 (08:03→23:13)
[2017-05-28] MEDS: SODIUM BICARBONATE TAB 650 MG TAB PO SCH ×2 (08:03→20:21)
[2017-05-28] MEDS: LEVOTHYROXINE 25 MCG TAB PO SCH (08:03)
[2017-05-28] MEDS: PANTOPRAZOLE 40 MG/10 ML VIAL IVP SCH (08:03)
[2017-05-28 08:17] LABS: Calcium 8.3 mg/dL (8.4-10.2); Potassium 3.5 mmol/L (3.5-5.1)
--- NOTE | 2017-05-28 09:22 | P.PN ---
Subjective Progress Note Date: 05/27/17 This patient is a 46 year old male being evaluated for left sided weakness and possible stroke. The patient yesterday had symptoms of acute left-sided hemiparesis and weakness. He was evaluated by Dr. Shoemaker. There was concern for possibility of acute stroke and neurology was consulted. Patient underwent MRI of the brain today for further evaluation of acute stroke. MRI results indicate nonspecific white matter changes in the posterior circulation and involving the parietal and occipital lobes. This raises the possibility of posterior reversible encephalopathy syndrome (PRES). Patient had no evidence of acute ischemia on diffusion-weighted imaging. There was evidence of a small 2.3 cm left middle cranial fossa arachnoid cyst. The patient continues to be treated for underlying sepsis. He has evidence of an MSSA and peritoneal dialysis catheter associated peritonitis. His peritoneal dialysis catheter was removed by general surgery. Patient did have a permacath placement for hemodialysis. He is being followed closely by infectious disease. He continues on multiple antibiotics at this time. The patient's mental status has not shown much improvement this evening. According to the nursing staff he was much more alert today as compared to yesterday. We did review the results of the MRI today with the patient. It is unclear whether he has a clear understanding of the results at this time. Clearly there is no evidence for acute stroke on the MRI. the patient's overall mental status is improved from yesterday. He is more awake and alert. His speech is more clear today as well. We will continue close neurological follow-up of this patient. Patient would benefit from a repeat MRI of the brain in 1 month to see if there is any improvement or changes in the posterior section of the brain. As noted the differential would include PRES Syndrome. This patient's Depakote level came back at 43.3. His Keppra level also was completed yesterday and was 46.1. We will give the patient an extra dose of Depakote tonight. He has had no active seizures. He did have hemodialysis today. The patient has been switched from peritoneal dialysis to hemodialysis due to his severe peritonitis. We will continue close neurological follow-up with this patient during this admission. His Keppra level is therapeutic at 46.1. We will continue close neurological follow-up for this patient during this admission. The patient continues to have significant nausea and vomiting symptoms. Plans are being made for alternative nutritional feedings for the patient. The dietitian has been consulted for PPN due to this patient's poor oral intake and severe nausea and vomiting. He is much more awake and alert today as compared to yesterday. He states that his nausea vomiting symptoms have been chronic and does not necessarily reflect his hemodialysis state. We will await further recommendations from internal medicine and nephrology. Patient does not demonstrate evidence of persistent left-sided weakness. As noted we are recommending a follow-up MRI of the brain in 1 month for comparison to his study done this admission. His MRI fails to reveal any evidence of acute stroke. Patient will likely require subacute rehab at the time of discharge. His overall prognosis at this time remains guarded. Objective - Vital Signs Vital signs: Vital Signs Temp 96.0 F L 05/27/17 15:00 Pulse 90 05/27/17 15:00 Resp 18 05/27/17 15:00 BP 171/87 05/27/17 15:00 Pulse Ox 98 05/27/17 15:00 Intake & Output 05/26/17 05/27/17 05/27/17 18:59 06:59 18:59 Intake Total 0 0 0 Output Total 500 100 Balance -500 -100 0 Weight 97 kg 97.6 kg 97.6 kg Intake: Oral 0 0 0 Output: Urine 500 100 Other: Voiding Method Urinal Urinal Urinal # Voids 0 1 # Bowel Movements 0 - Exam Physical examination: PHYSICAL EXAMINATION: Patient is resting comfortably in bed. VITAL SIGNS: Blood pressure is [171/87]. Heart rate is [90]. Respiration is [18] . Temperature is [96.0]. HEENT: Head is atraumatic, neck is supple, there were no carotid bruits. CHEST: Lungs are clear to auscultation and percussion. CARDIAC: S1, S2 normal rate and rhythm. There is no murmur. ABDOMEN: Soft and nontender. Bowel sounds are present. EXTREMITIES: There is no pedal edema. Peripheral pulses are present. Neurological examination: Patient's neurological status show some improvement in his overall mental status. He is much more awake and alert today. He is following all commands. He has no focal motor deficit on neurological examination. We did review his MRI results today with him. - Labs CBC & Chem 7: 05/28/17 07:40 05/28/17 07:40 Labs: Abnormal Lab Results - Last 24 Hours (Table) 05/26/17 05/26/17 05/27/17 Range/Units 16:38 20:30 05:20 RBC 4.20 L (4.30-5.90) m/uL Hgb 11.4 L (13.0-17.5) gm/dL Hct 37.0 L (39.0-53.0) % MCHC 30.9 L (31.0-37.0) g/dL Lymphocytes # 0.6 L (1.0-4.8) k/uL Sodium (137-145) mmol/L Carbon Dioxide (22-30) mmol/L BUN (9-20) mg/dL Creatinine (0.66-1.25) mg/dL Glucose (74-99) mg/dL POC Glucose (mg/dL) 111 H 107 H (75-99) mg/dL Calcium (8.4-10.2) mg/dL 05/27/17 Range/Units 05:20 RBC (4.30-5.90) m/uL Hgb (13.0-17.5) gm/dL Hct (39.0-53.0) % MCHC (31.0-37.0) g/dL Lymphocytes # (1.0-4.8) k/uL Sodium 134 L (137-145) mmol/L Carbon Dioxide 19 L (22-30) mmol/L BUN 38 H (9-20) mg/dL Creatinine 5.20 H* (0.66-1.25) mg/dL Glucose 103 H (74-99) mg/dL POC Glucose (mg/dL) (75-99) mg/dL Calcium 8.3 L (8.4-10.2) mg/dL Microbiology - Last 24 Hours (Table) 05/23/17 12:00 Gram Stain - Final Dialysate Body Fluid Culture - Final 05/22/17 14:15 Gram Stain - Final Dialysate Body Fluid Culture - Final 05/22/17 14:25 Blood Culture - Preliminary Blood No Growth after 96 hours Assessment and Plan (1) TIA (transient ischemic attack) Current Visit: Yes Status: Acute SNOMED Code(s): 557187966 (2) Acute encephalopathy Current Visit: Yes Status: Acute SNOMED Code(s): 5449756 (3) Seizure disorder Current Visit: Yes Status: Acute SNOMED Code(s): 496223652 (4) Encounter for CAPD (continuous ambulatory peritoneal dialysis) Current Visit: Yes Status: Acute SNOMED Code(s): 245496343 (5) Peritonitis due to infected peritoneal dialysis catheter Current Visit: Yes Status: Acute SNOMED Code(s): 030281315 (6) Chronic renal failure Current Visit: Yes Status: Chronic SNOMED Code(s): 67201235 (7) Diabetes mellitus Current Visit: Yes Status: Chronic SNOMED Code(s): 81339517 Plan: This patient is a 46-year-old male who was initially evaluated for findings of left-sided weakness. Patient underwent an MRI of the brain results of which are noted. The MRI failed to reveal any evidence of acute stroke. Patient is on chronic hemodialysis for a history of end-stage renal disease. He has been switched over to hemodialysis due to sepsis. Nephrology is following him closely. Patient continues to have significant nausea vomiting symptoms. Dietary consult has been placed for PPN treatment. The patient continues to have significant nausea and vomiting. He is moving all 4 extremities. His mental status is much improved and likely reflects his improvement in his renal status. Patient will require ongoing PT/OT evaluation. He will likely require inpatient rehab at the time of discharge. We will continue close neurological follow this patient during this admission.
[2017-05-28] MEDS: levETIRAcetam IV 750 MG in SODIUM CHLORIDE 0.9% 100 ML IVPB SCH ×2 (09:55→20:21)
--- NOTE | 2017-05-28 09:58 | P.PN ---
Subjective Patient is seen in follow-up for end-stage renal disease. Patient was maintained on peritoneal dialysis and presented with abdominal pain along with a cloudy dialysate. He was noted to have refractory peritonitis with fluid culture positive for staph aureus. He also had blood culture that was positive for staph capitis. He is currently maintained on IV Kefzol. Peritoneal dialysis catheter has been removed. Patient continues to have nausea and dry heaves. Oral intake is slowly improving. Still has abdominal discomfort. He is now maintained on hemodialysis and is currently seen while receiving treatment. Vital signs are stable. General: The patient appeared well nourished and normally developed. HEENT: Head exam is unremarkable. Neck is without jugular venous distension. LUNGS: Lungs are clear to auscultation and percussion. Breath sounds decreased. HEART: Rate and Rhythm are regular. First and second heart sounds normal. No murmurs, rubs or gallops. ABDOMEN: Abdominal exam reveals normal bowel sounds. Generalized tenderness. EXTREMITITES: No clubbing, cyanosis, or edema. Left BKA noted. Objective - Vital Signs Vital signs: Vital Signs Temp 97.4 F L 05/28/17 07:00 Pulse 101 H 05/28/17 07:00 Resp 16 05/28/17 07:00 BP 165/94 05/28/17 07:00 Pulse Ox 91 L 05/28/17 07:00 Intake & Output 05/27/17 05/28/17 05/28/17 18:59 06:59 18:59 Intake Total 0 1290 Output Total 150 Balance 0 1140 Weight 97.6 kg Intake: Intake, IV Titration 1050 Amount IV Fluid Continuation 1, 1000 000 ml As IV .[facility] Rx#:[id number] Valproate Sodium 750 mg 50 In Sodium Chloride 0.9% 50 ml @ 50 mls/hr IVPB Q8HR [facility] Rx#:[id number] Oral 0 240 Output: Urine 150 Other: Voiding Method Urinal Urinal Urinal # Voids 1 0 # Bowel Movements 0 - Labs CBC & Chem 7: 05/28/17 07:40 05/28/17 07:40 Labs: Abnormal Lab Results - Last 24 Hours (Table) 05/28/17 05/28/17 05/28/17 Range/Units 07:30 07:40 07:40 RBC 3.99 L (4.30-5.90) m/uL Hgb 11.0 L (13.0-17.5) gm/dL Hct 35.7 L (39.0-53.0) % MCHC 30.8 L (31.0-37.0) g/dL Lymphocytes # 0.5 L (1.0-4.8) k/uL Sodium 135 L (137-145) mmol/L Carbon Dioxide 18 L (22-30) mmol/L BUN 56 H (9-20) mg/dL Creatinine 6.10 H* (0.66-1.25) mg/dL Glucose 114 H (74-99) mg/dL POC Glucose (mg/dL) 115 H (75-99) mg/dL Calcium 8.3 L (8.4-10.2) mg/dL Microbiology - Last 24 Hours (Table) 05/22/17 14:25 Blood Culture - Preliminary Blood No Growth after 120 hours 05/23/17 12:00 Gram Stain - Final Dialysate Body Fluid Culture - Final Assessment and Plan Plan: Assessment: #1. End-stage renal disease now maintained on hemodialysis. #2. CAPD associated peritonitis status post peritoneal dialysis catheter removal. #3. Staph capitis bacteremia. #4. Insulin-dependent diabetes mellitus. #5. Chronic kidney disease mineral bone disease maintained on Renvela and PhosLo. #6. Hypertension with chronic kidney disease. Better controlled today. Partially related to pain and nausea. Dose of lisinopril was increased to May 27. #7. Metabolic acidosis secondary to chronic kidney disease. #8. History of seizures intake and on Keppra and Depakote. Plan: Currently undergoing hemodialysis. Next treatment will be Wednesday. Continue with pain control and antiemetics. Maintain hydralazine as needed for systolic blood pressure greater than 160. Maintain oral sodium bicarbonate 650 mg twice daily. Antibiotics per infectious disease recommendations.
[2017-05-28] MEDS: SEVELAMER 800 MG TAB PO SCH ×3 (10:31→17:26)
[2017-05-28] MEDS: CALCIUM ACETATE 667 MG CAP PO SCH ×3 (10:32→17:26)
[2017-05-28] MEDS: METOCLOPRAMIDE 5 MG/ML 2 ML VIAL IVP PRN ×2 (10:36→19:52)
[2017-05-28] MEDS: amLODIPine 10 MG TAB PO SCH (10:38)
[2017-05-28] MEDS: AMIODARONE 200 MG TAB PO SCH ×2 (10:39→20:21)
[2017-05-28] MEDS: LISINOPRIL 20 MG TAB PO SCH (10:39)
--- NOTE | 2017-05-28 11:17 | P.PN ---
Subjective Progress Note Date: 05/28/17 05/21/2017 46-year-old male who presented to the emergency room on 05/20/2017 with a chief complaint of abdominal pain and cloudy peritoneal fluid. The patient states he has had abdominal pain that has persisted for two days. He also complained of intermittent nausea and vomiting. He states that he noticed his peritoneal fluid was becoming cloudy as well. The patient has a history of end-stage renal disease. He states he has been on peritoneal dialysis for 2-1/2 years. He states prior to that he did hemodialysis for 8 months but he did not tolerate and had multiple side effects and was then transitioned to peritoneal dialysis. He also has history of coronary artery disease, diabetes mellitus, DVT, gastro-esophageal reflux disease, hypertension, hyperlipidemia, myocardial infarction, and peripheral vascular disease with a left [id number] mutation and a right foot partial amputation. He states he has a wound to his right calf that is not healing. He also has a history of MRSA in 2014 in his blood and left foot. In the emergency room, a chest x-ray was completed which showed bilateral infiltrates. KUB was completed which showed small pneumoperitoneum which was thought to be related to dialysis port. Peritoneal fluid was sent for culture. Sodium on admission was 139, potassium 3.4, BUN 53, creatinine 12.04, WBCs 11.4, hemoglobin 12.7, platelets 176. Troponin was negative 1. Lactic acid on admission was 1.3 It was also noted that while the patient was in the emergency room he received IV pain medication and became unresponsive and apneic and it was difficult to feel a pulse. ER staff started CPR and the patient was revived. The patient also received Narcan. After CPR, there was thoughts of possible rib fractures. Chest xray was completed which was negative for rib fractures. IV pain medication has since been discontinued. The patient was admitted to the hospital under the care of Dr. Aguilar. Consultations were placed to nephrology. The patient was seen and examined at the bedside with Dr. Aguilar on rounds. He states he is feeling okay today. He does continue to complain of abdominal pain but states it is improving. He denies nausea or vomiting. He is tolerating a consistent carbohydrate diet without nausea or vomiting. He remains in contact isolation for history of MRSA infection. He remains on Rocephin and Vanco. He remains on 2L NC with oxygen saturations greater than 92%. Blood pressure is stable. He is afebrile. 05/22/2017 (Notes per Dr. Aguilar) Patient has a recurrent history of end-stage renal disease. Currently maintained on peritoneal dialysis. She presented to the hospital with peritonitis persistent abdominal pain. His total cell count, has come down but PMN count stays quite elevated. One set of blood cultures also came back positive for gram-positive cocci. Patient has been vomiting with some retching today. 05/23/2017 (Notes per Dr. Aguilar) Patient has a recurrent history of end-stage renal disease. Currently maintained on peritoneal dialysis. She presented to the hospital with peritonitis persistent abdominal pain. His total cell count, has come down but PMN count stays quite elevated. One set of blood cultures also came back positive for coagulase-negative staph, and staph aureus . Patient was started on IV Vanco yesterday by Dr. Mann patient has been getting Vanco in his peritoneal dialysis fluid as well I believe once every 5 days 05/24/2017 Patient was noted to have left sided weakness over the weekend. Neuro was consulted. CT of the brain was completed and was negative for acute process. Patient underwent MRI of the brain which revealed nonspecific white matter changes predominating within the posterior circulation in the parietal and occipital lobes, 2.3cm left middle cranial fossa arachnoid cyst with minimal mass effect on temporal lobe, and 3cm maxillary cyst. The patient has had problems with his PD draining properly. Nephrology is following. The patient will need PD catheter removed to ensure infection completely resolves. In the meantime, Dr. Ramirez was consulted for hemodialysis catheter placement. The patient will require short term HD until infection resolves and then can transition back to PD per nephrology. General surgery has been consulted for removal of PD catheter. Infectious disease is following. Positive for MSSA. Patients blood cultures positive for coagulase negative, which is likely a contaminated specimen. Repeat cultures are negative. 05/25/2017 Patient seen and examined at the bedside. Patient remains very lethargic. He was able to open his eyes and mumble a few words, which she was unable to do yesterday. The patient underwent hemodialysis catheter insertion yesterday and had his first hemodialysis session last night. The patient is scheduled today for removal of peritoneal dialysis catheter with Dr. Adorno. Per nursing, the patient is supposed to undergo hemodialysis again today. His creatinine has improved from 11.3 to 8.92. The patient is unable to take any of his oral medications due to his altered mental status. His blood pressure this morning is elevated at 180/91. He remains on 3 L nasal cannula and maintaining an oxygen saturation greater than 92%. He did have a low-grade fever of 99.1 F axillary this morning. He remains on cefazolin per infectious disease for positive MSSA. Patient originally wanted to return home at the time of discharge. However, due to the patient's current condition, he will likely require ECF placement when he is stable for discharge. This was discussed with social work and case management and consultations were placed to PT and OT for evaluation. 05/26/2017 Patient seen and examined at the bedside. Patient is significantly less lethargic than yesterday. He is communicating well and able to answer questions appropriately. Bilateral hand grasps are strong and equal. Neurology recommends patient to have a repeat CT of the head in one month. Patient is currently undergoing dialysis and tolerating well. Patient currently reeciving cefazolin and will require two more weeks per Dr. Piedra. Spoke with him this morning who states patient will not need a PICC line and can receive 3gram after each dialysis treatment for the next two weeks. PT/OT have been consulted to assess patients mobility and evaluate for possible ECF placement if he is unable to care for himself at home. 05/27/2017 Patient seen and evaluated at the bedside. Patient remains more awake and alert. Patient has undergone dialysis for the last 3 days and tolerated well. He is scheduled for dialysis tomorrow. His creatinine this morning is 5.2. Patients blood pressure has remained elevated. Hydralazine has ordered PRN every 4 hours as needed but nursing has only been administering 1-2 times daily per their MAR documentation. He was able to take his oral antihypertensives yesterday. He takes norvasc at home. He was also started on lisinopril per nephrology. The patient has had no PO intake secondary to lethargy. Spoke with dietary yesterday who asked about NG feeding. Since patient was more awake yesterday, NG was deferred and nursing was asked to feed patient his meals. Nursing states the patient is still not eating and continues to throw up bile. Spoke with case management regarding discharge planning and stated she will speak with patient and family regarding possible ECF placement. Dr. Aguilar spoke to patient yesterday and recommended patient go to subacute rehab for a short time since he has been in bed for a week to build his strength. PT/OT was consulted and has been unable to work with patient due to lethargy and dialysis treatments. Yesterday PT attempted to work with patient but his left knee prosthesis was not in the patients room. Patient had it with him during his admission so family may have taken it home. Nursing was asked to follow up with his family. ADDENDUM 05/27/2017 Consult was placed to substation operator chief for PPN. Patient has had essentially no PO intake since admission due to lethargy, abdominal pain, and N/V. Patient was awake and alert yesterday and received meals for breakfast, lunch, and dinner. Patient unable to eat yesterday secondary to nausea. Patient continues to be nauseous and vomiting today. He is receiving zofran and reglan. abdominal xray is negative for obstruction. Received phone call from Meenakshi Hsu substation operator chief who states "it is inappropriate to start PPN on someone who refuses to eat". Explained to her that patient is not refusing to eat but continues to have emesis and has thrown up 3 times today. Explained to her that I opened a glucerna for the patient to drink and encouraged him to take small sips as tolerated, but the patient needs PPN as supplementation until his emesis resolves since he has been a week without nutrition. Electromechanic then explains that it is inappropriate to order PPN for someone for 3 days if he is going to be discharged Wednesday. I explained that his discharge date is not set in stone, but discharge planning has been an ongoing process and that if patient continues to do well and is able to tolerate PO intake, it is a possibility of discharge early next week. Meenakshi recommends NG tube with feeding. Explained to her that I do not want an NG tube placed because the patient is vomiting and we would like PPN started. Dietary has refused to place orders for PPN and continues to recommend NG tube feedings. Discussed this with patients RN, Areli, and updated on plan. 05/28/2017 Patient seen and evaluated at the bedside. Patient is currently undergoing dialysis. His next treatment is scheduled for wednesday. His blood pressure has improved. He states he feels "like hell everywhere". He feels very weak and fatigued. He states his abdominal pain is worse today. He continues to fell nauseous. He remains on zofran, reglan, and scopolamine patches. He had a few sips of glucerna yesterday but that is the extent of his PO intake in a week. He has not been able to tolerate meals secondary to nausea and vomiting. Sometimes he is having dry heaves and other times the patient is having bilious emesis. Per nursing, the patient had 150cc of bile emesis this morning. Abdominal xray completed yesterday was negative for obstruction. Dietary was consulted yesterday to begin PPN but Meenakshi, however dietitian refused. Spoke with nino Lewis this morning and she is agreeable to PPN and will place orders. The patient denies shortness of breath or chest pain. Physical therapy has been following and working with patient. Objective - Vital Signs Vital signs: Vital Signs Temp 97.4 F L 05/28/17 07:00 Pulse 101 H 05/28/17 07:00 Resp 16 05/28/17 07:00 BP 165/94 05/28/17 07:00 Pulse Ox 91 L 05/28/17 07:00 Intake & Output 05/27/17 05/28/17 05/28/17 18:59 06:59 18:59 Intake Total 0 1290 Output Total 150 Balance 0 1140 Weight 97.6 kg Intake: Intake, IV Titration 1050 Amount IV Fluid Continuation 1, 1000 000 ml As IV .[facility] Rx#:[id number] Valproate Sodium 750 mg 50 In Sodium Chloride 0.9% 50 ml @ 50 mls/hr IVPB Q8HR [facility] Rx#:[id number] Oral 0 240 Output: Urine 150 Other: Voiding Method Urinal Urinal Urinal # Voids 1 0 # Bowel Movements 0 - Exam GENERAL: This is a 46-year-old male who appears more sleepy today. Able to answer questions and follow commands. HEENT: Head is atraumatic, normocephalic. Left pupil 2 mm, round, and sluggish. Right pupil 3 mm, oval, and sluggish. Sclerae anicteric. Conjunctivae are clear. Mucus membranes of the mouth are moist. Neck is supple. Hemodialysis catheter present. RESPIRATORY: Clear to ausculation. No wheezes, rales, or rhonchi. Diminished at the bases. No use of accessory muscles. Patient maintaining oxygen saturation greater than 92% on 2 L nasal cannula. No chest wall tenderness is noted on palpation or with deep breathing. CARDIOVASCULAR: Regular rate and rhythm. S1 and S2 noted. No systolic or diastolic murmur auscultated. No JVD noted. No S3 or S4 noted. GASTROINTESTINAL: Patient continues to have nausea and vomiting bile. Occasional dry heaves. Unable to tolerate PO intake. Pain and tenderness upon palpation. Abdomen soft and round. Normal active bowel sounds auscultated x 4 quadrants. INTEGUMENTARY: Chronic wound noted to right calf. No cyanosis. No jaundice. No rashes noted. No cellulitis noted. EXTREMITIES: Left below the knee amputation. Right partial foot amputation. trace peripheral edema. No calf tenderness noted. NEUROLOGIC: Cranial nerves II-XII intact. PSYCHIATRIC: Awake and alert, however is slightly more sleepy today - Labs CBC & Chem 7: 05/28/17 07:40 05/28/17 07:40 Labs: Abnormal Lab Results - Last 24 Hours (Table) 05/28/17 05/28/17 05/28/17 Range/Units 07:30 07:40 07:40 RBC 3.99 L (4.30-5.90) m/uL Hgb 11.0 L (13.0-17.5) gm/dL Hct 35.7 L (39.0-53.0) % MCHC 30.8 L (31.0-37.0) g/dL Lymphocytes # 0.5 L (1.0-4.8) k/uL Sodium 135 L (137-145) mmol/L Carbon Dioxide 18 L (22-30) mmol/L BUN 56 H (9-20) mg/dL Creatinine 6.10 H* (0.66-1.25) mg/dL Glucose 114 H (74-99) mg/dL POC Glucose (mg/dL) 115 H (75-99) mg/dL Calcium 8.3 L (8.4-10.2) mg/dL Microbiology - Last 24 Hours (Table) 05/22/17 14:25 Blood Culture - Preliminary Blood No Growth after 120 hours 05/23/17 12:00 Gram Stain - Final Dialysate Body Fluid Culture - Final Assessment and Plan Plan: ASSESSMENT: Peritonitis, secondary to peritoneal dialysis, cultures positive for MSSA End-stage renal disease, on peritoneal dialysis, temporarily placed on hemodialysis secondary to peritonitis Abdominal pain, nausea, and vomiting secondary to peritonitis, however symptoms are persistent and not improving, abdominal xray negative for obstruction, GI consult pending Moderate calorie protein malnutrition with minimal PO intake x1 week Diabetes mellitus, type II, hemoglobin A1c 9.9% Coronary artery disease with previous myocardial infarction Peripheral vascular disease with history of left BKA and right partial foot amputation Anemia of chronic disease secondary to CKD Acute metabolic encephalopathy Left sided weakness, possible TIA, resolved History of MRSA infection in left lower extremity Hypertension, stable History of seizures PLAN: -Consult GI for persistent nausea and vomiting -Short term PPN until patient is able to tolerate increased PO intake -Encourage glucerna intake as tolerated -Nephrology on consult. Appreciate recommendations and input -Patient to undergo hemodialysis today. Next session is scheduled for Wednesday. -Antibiotic regimen per infectious disease. Currently on cefazolin 2 g IV every 24 hours -Patient will require 2 weeks of cefazolin per ID. No need for PICC, will receive 3gram cefazolin after each dialysis treatment x 2 weeks. -Neurology on consult. Appreciate recommendations and input. -Patient to have repeat brain MRI in one month per neurology recommendations -Monitor labs -Monitor capillary blood glucose Accu-Cheks before meals and at bedtime. -Continue humalog sliding scale before meals and at bedtime -Continue 10 units Levemir at bedtime -GI prophylaxis: Protonix 40 mg IV daily -DVT prophylaxis: Venodynes to right lower extremity -Monitor vital signs and address as appropriate -Discharge planning: Will require ECF placement. Patient requesting [facility]. -PT/OT consult -Further recommendations pending patient's course Nurse practitioner note has been reviewed by physician. Signing provider agrees with the documented findings, assessment, and plan of care.
[2017-05-28 12:10] LABS: Glucose,Whole Blood 100 mg/dL (75-99)
[2017-05-28] MEDS: THIAMINE 100 MG TAB PO SCH (12:13)
[2017-05-28 14:46] LABS: Ionized Calcium 4.7 mg/dL (4.5-5.3)
[2017-05-28 15:20] LABS: Phosphorus 3.8 mg/dL (2.5-4.5)
[2017-05-28] MEDS ORDERED: MVI, ADULT NO.4 WITH VIT K 10 ML, TRACE (CONC-1ML/DOSE) 1 ML in AMINO ACID 4.25%-D10W+L... IV ONE ×3 (17:00)
[2017-05-28 17:21] LABS: Glucose,Whole Blood 110 mg/dL (75-99)
[2017-05-28] MEDS: TAMSULOSIN 0.4 MG CAP.ER.24H PO SCH (17:30)
[2017-05-28] MEDS: ceFAZolin IN SWFI 2 GM/20 ML SYRINGE IVP SCH (17:30)
--- NOTE | 2017-05-28 17:53 | PN ---
PROGRESS NOTE DATE OF SERVICE: 05/28/2017. REASON FOR FOLLOW UP: MSSA peritoneal dialysis peritonitis. INTERVAL HISTORY: The patient is afebrile. He is feeling better. Breathing comfortably. Denies significant chest pain, shortness of breath. No cough. No nausea, vomiting, and abdominal pain has improved. EXAMINATION: Blood pressure 155/94 with a pulse of 101, temperature 97.4. He is 91% room air. General description is a middle-aged male lying in bed in no distress. RESPIRATORY SYSTEM: Unlabored breathing. Clear to auscultation anteriorly. HEART: S1, S2. Regular rate and rhythm. ABDOMEN: Soft, no tenderness. LABS: Hemoglobin is 11, white count 5.8. DIAGNOSTIC IMPRESSION AND PLAN: Patient with MSSA peritoneal dialysis peritonitis, status post removal of the infected catheter. The patient is currently getting hemodialysis. Blood culture negative. We are recommending cefazolin 3 g after each dialysis for 2 weeks with outpatient followup. Continue supportive care. MMODL / IJN: [id number] /
[2017-05-28] MEDS: FAT EMULSION 20% 250 ML in EMPTY BAG 1 BAG IV SCH (18:46)
[2017-05-28] MEDS: ATORVASTATIN 80 MG TAB PO SCH (20:21)
--- NOTE | 2017-05-28 21:40 | P.PN ---
Subjective Progress Note Date: 05/28/17 This patient is a 46 year old male being evaluated for left sided weakness and possible stroke. The patient yesterday had symptoms of acute left-sided hemiparesis and weakness. He was evaluated by Dr. Shoemaker. There was concern for possibility of acute stroke and neurology was consulted. Patient underwent MRI of the brain today for further evaluation of acute stroke. MRI results indicate nonspecific white matter changes in the posterior circulation and involving the parietal and occipital lobes. This raises the possibility of posterior reversible encephalopathy syndrome (PRES). Patient had no evidence of acute ischemia on diffusion-weighted imaging. There was evidence of a small 2.3 cm left middle cranial fossa arachnoid cyst. The patient continues to be treated for underlying sepsis. He has evidence of an MSSA and peritoneal dialysis catheter associated peritonitis. His peritoneal dialysis catheter was removed by general surgery. Patient did have a permacath placement for hemodialysis. He is being followed closely by infectious disease. He continues on multiple antibiotics at this time. The patient's mental status has not shown much improvement this evening. According to the nursing staff he was much more alert today as compared to yesterday. We did review the results of the MRI today with the patient. It is unclear whether he has a clear understanding of the results at this time. Clearly there is no evidence for acute stroke on the MRI. the patient's overall mental status is improved from yesterday. He is more awake and alert. His speech is more clear today as well. We will continue close neurological follow-up of this patient. Patient would benefit from a repeat MRI of the brain in 1 month to see if there is any improvement or changes in the posterior section of the brain. As noted the differential would include PRES Syndrome. This patient's Depakote level came back at 43.3. His Keppra level also was completed yesterday and was 46.1. We will give the patient an extra dose of Depakote tonight. He has had no active seizures. He did have hemodialysis today. The patient has been switched from peritoneal dialysis to hemodialysis due to his severe peritonitis. We will continue close neurological follow-up with this patient during this admission. His Keppra level is therapeutic at 46.1. We will continue close neurological follow-up for this patient during this admission. The patient continues to have significant nausea and vomiting symptoms. Plans are being made for alternative nutritional feedings for the patient. The dietitian has been consulted for PPN due to this patient's poor oral intake and severe nausea and vomiting. He is much more awake and alert today as compared to yesterday. He states that his nausea vomiting symptoms have been chronic and does not necessarily reflect his hemodialysis state. We will await further recommendations from internal medicine and nephrology. Patient does not demonstrate evidence of persistent left-sided weakness. As noted we are recommending a follow-up MRI of the brain in 1 month for comparison to his study done this admission. His current MRI fails to reveal any evidence of acute stroke. patient does seem to be doing slightly better today. He is having less nausea vomiting symptoms. Patient will likely require subacute rehab at the time of discharge. His overall prognosis at this time remains guarded. we will continue close neurological follow-up of this patient during this admission. Objective - Vital Signs Vital signs: Vital Signs Temp 97.4 F L 05/28/17 07:00 Pulse 101 H 05/28/17 07:00 Resp 16 05/28/17 07:00 BP 165/94 05/28/17 07:00 Pulse Ox 91 L 05/28/17 07:00 Intake & Output 05/27/17 05/28/17 05/28/17 18:59 06:59 18:59 Intake Total 0 1290 Output Total 150 Balance 0 1140 Weight 97.6 kg Intake: Intake, IV Titration 1050 Amount IV Fluid Continuation 1, 1000 000 ml As IV .[facility] Rx#:[id number] Valproate Sodium 750 mg 50 In Sodium Chloride 0.9% 50 ml @ 50 mls/hr IVPB Q8HR [facility] Rx#:[id number] Oral 0 240 Output: Urine 150 Other: Voiding Method Urinal Urinal Urinal # Voids 1 0 # Bowel Movements 0 - Exam Physical examination: PHYSICAL EXAMINATION: Patient is resting comfortably in bed. VITAL SIGNS: Blood pressure is [165/94]. Heart rate is [101]. Respiration is [16 ]. Temperature is [97.4]. HEENT: Head is atraumatic, neck is supple, there were no carotid bruits. CHEST: Lungs are clear to auscultation and percussion. CARDIAC: S1, S2 normal rate and rhythm. There is no murmur. ABDOMEN: Soft and nontender. Bowel sounds are present. EXTREMITIES: There is no pedal edema. Peripheral pulses are present. Neurological examination: Patient's neurological status show some improvement in his overall mental status. He is much more awake and alert today. He is following all commands. He has no focal motor deficit on neurological examination. he has less nausea and vomiting symptoms today. His neurological examination is nonfocal today. We did review his MRI results today with him. - Labs CBC & Chem 7: 05/28/17 07:40 05/28/17 07:40 Labs: Abnormal Lab Results - Last 24 Hours (Table) 05/28/17 05/28/17 05/28/17 Range/Units 07:30 07:40 07:40 RBC 3.99 L (4.30-5.90) m/uL Hgb 11.0 L (13.0-17.5) gm/dL Hct 35.7 L (39.0-53.0) % MCHC 30.8 L (31.0-37.0) g/dL Lymphocytes # 0.5 L (1.0-4.8) k/uL Sodium 135 L (137-145) mmol/L Carbon Dioxide 18 L (22-30) mmol/L BUN 56 H (9-20) mg/dL Creatinine 6.10 H* (0.66-1.25) mg/dL Glucose 114 H (74-99) mg/dL POC Glucose (mg/dL) 115 H (75-99) mg/dL Calcium 8.3 L (8.4-10.2) mg/dL Microbiology - Last 24 Hours (Table) 05/22/17 14:25 Blood Culture - Preliminary Blood No Growth after 120 hours 05/23/17 12:00 Gram Stain - Final Dialysate Body Fluid Culture - Final Assessment and Plan (1) TIA (transient ischemic attack) Current Visit: Yes Status: Acute SNOMED Code(s): 782965257 (2) Acute encephalopathy Current Visit: Yes Status: Acute SNOMED Code(s): 5977315 (3) Seizure disorder Current Visit: Yes Status: Acute SNOMED Code(s): 567859776 (4) Encounter for CAPD (continuous ambulatory peritoneal dialysis) Current Visit: Yes Status: Acute SNOMED Code(s): 878433718 (5) Peritonitis due to infected peritoneal dialysis catheter Current Visit: Yes Status: Acute SNOMED Code(s): 776689250 (6) Chronic renal failure Current Visit: Yes Status: Chronic SNOMED Code(s): 77344620 (7) Diabetes mellitus Current Visit: Yes Status: Chronic SNOMED Code(s): 71495051 Plan: This patient is a 46-year-old male who is being followed closely for history of left-sided weakness and mild confusion. Patient is much more awake and alert today. His nausea and vomiting symptoms have slightly improved. He is being evaluated for possible nutritional support. Patient has not had any focal findings of left-sided weakness at this time. We have recommended that he should have a follow-up MRI of the brain in 1 month. He will likely need subacute rehab at the time of discharge. He is to continue on hemodialysis as per the recommendations of nephrology. His nausea vomiting symptoms have shown slight improvement.we will continue close neurological follow-up with this patient during this admission.
[2017-05-28] MEDS: INSULIN DETEMIR 100 UNIT/ML 10 ML VIAL SQ SCH (22:07)
[2017-05-29 00:32] LABS: Glucose,Whole Blood 160 mg/dL (75-99)
[2017-05-29] MEDS: MORPHINE SULFATE 4 MG/ML SYRINGE IVP PRN ×5 (00:48→21:37)
[2017-05-29] MEDS: hydrALAZINE HCL 20 MG/ML 1 ML VIAL IVP PRN ×2 (01:36→22:21)
[2017-05-29 04:22] LABS: Glucose,Whole Blood 145 mg/dL (75-99)
[2017-05-29 07:44] LABS: Glucose,Whole Blood 120 mg/dL (75-99)
[2017-05-29] MEDS: INSULIN ASPART 100 UNIT/ML 1 ML 10 ML VIAL SQ SCH ×3 (07:45→17:24)
[2017-05-29] MEDS: levETIRAcetam IV 750 MG in SODIUM CHLORIDE 0.9% 100 ML IVPB SCH ×2 (07:48→21:37)
[2017-05-29 08:08] LABS: Ionized Calcium 4.4 mg/dL (4.5-5.3)
[2017-05-29 08:12] LABS: Basophils % (A) 1 %; CH 28.1; CHCM 32.1; Eosinophils # (A) 0.1 k/uL (0-0.7); Eosinophils % (A) 2 %; HCT 30.5 % (39.0-53.0); HDW 3.61; HGB 9.7 gm/dL (13.0-17.5); Hypochromasia Moderate; Luc # (Auto) 0.15; Luc % (Auto) 3; Lymphocytes # (A) 0.8 k/uL (1.0-4.8); Lymphocytes % (A) 14 %; MCH 27.8 pg (25.0-35.0); MCHC 31.8 g/dL (31.0-37.0); MCV 87.6 fL (80.0-100.0); Mean Platelet Volume 6.9; Monocytes # (A) 0.6 k/uL (0-1.0); Monocytes % (A) 10 %; Neutrophils % (A) 71 %; Poikilocytosis Slight; RBC 3.48 m/uL (4.30-5.90); RDW 13.9 % (11.5-15.5); WBC 5.7 k/uL (3.8-10.6)
[2017-05-29 08:15] LABS: Magnesium 2.1 mg/dL (1.6-2.3); Phosphorus 4.3 mg/dL (2.5-4.5); Potassium 3.4 mmol/L (3.5-5.1)
[2017-05-29] MEDS: SEVELAMER 800 MG TAB PO SCH ×3 (08:22→17:24)
[2017-05-29] MEDS: VALPROATE SODIUM 750 MG in SODIUM CHLORIDE 0.9% 50 ML IVPB SCH ×3 (08:22→23:56)
[2017-05-29] MEDS: SODIUM BICARBONATE TAB 650 MG TAB PO SCH ×2 (08:22→21:37)
[2017-05-29] MEDS: LEVOTHYROXINE 25 MCG TAB PO SCH (08:23)
[2017-05-29] MEDS: CALCIUM ACETATE 667 MG CAP PO SCH ×3 (08:23→17:24)
[2017-05-29] MEDS: THIAMINE 100 MG TAB PO SCH (08:23)
[2017-05-29] MEDS: amLODIPine 10 MG TAB PO SCH (08:23)
[2017-05-29] MEDS: AMIODARONE 200 MG TAB PO SCH ×2 (08:23→21:37)
[2017-05-29] MEDS: LISINOPRIL 20 MG TAB PO SCH (08:23)
[2017-05-29] MEDS: 1: MVI, ADULT NO.4 WITH VIT K 10 ML, TRACE (CONC-1ML/DOSE) 1 ML in AMINO ACID 4.25%-D10W IV SCH ×9 (08:37→19:33)
[2017-05-29] MEDS: PANTOPRAZOLE 40 MG/10 ML VIAL IVP SCH (09:09)
--- NOTE | 2017-05-29 11:57 | P.PN ---
Subjective Progress Note Date: 05/29/17 Principal diagnosis: Patient has a recurrent history of end-stage renal disease. urrently maintained on peritoneal dialysis. She presented to the hospital with peritonitis persistent abdominal pain. His total cell count, has come down but PMN C count stays quite elevated. One set of blood cultures also came back positive for coagulase-negative staph, and staph aureus . Patient was started on IV Vanco yesterday by Dr. Mann patient has been getting Vanco in his peritoneal dialysis fluid as well I believe once every 5 days Patient's outlook is significantly improved he is awake alert smiling and talking significantly better than he was even a day ago BUN/creatinine are almost back to baseline. Patient is eating significantly better than he was 2 days ago patient's moving bowels slightly and passing gas Objective - Vital Signs Vital signs: Vital Signs Temp 98.8 F 05/29/17 07:00 Pulse 88 05/29/17 07:00 Resp 16 05/29/17 07:00 BP 175/95 05/29/17 07:00 Pulse Ox 93 L 05/29/17 07:00 Intake & Output 05/28/17 05/29/17 05/29/17 18:59 06:59 18:59 Intake Total 100 Output Total 750 Balance -650 Weight 92 kg 87 kg Intake: Oral 100 Output: Urine 150 Emesis 600 Other: Voiding Method Urinal Urinal # Voids 0 0 # Emeses 2 - Exam General: [Patient awake, alert and oriented times 3. Patient in no acute distress.] HEENT: [PERRL. EOMI. No pharyngeal erythema or exudate.] Neck: [No adenopathy.] Cardiac: [Heart regular in rate and rhythm. No S3. No S4. No clicks, rubs. No murmur.] Lungs: [Clear to auscultation bilaterally.] Abdomen: [No mass. No organomegaly. Bowel sounds presnt and diffuse lower abdominal pain across his belly.] Extremes: [No edema no cyanosis no claudication normal pulses, left BKA : [] Musculoskeletal: [No joint erythema, edema or tenderness.] Skin: [No rash.] Neurologic: [No lateralizing deficits. CN II - XII grossly intact.] Lymphatic: [No adenopathy.] - Labs CBC & Chem 7: 05/29/17 07:06 05/29/17 07:06 Labs: Abnormal Lab Results - Last 24 Hours (Table) 05/28/17 05/28/17 05/28/17 Range/Units 12:00 13:56 17:19 RBC (4.30-5.90) m/uL Hgb (13.0-17.5) gm/dL Hct (39.0-53.0) % Lymphocytes # (1.0-4.8) k/uL Sodium (137-145) mmol/L Potassium (3.5-5.1) mmol/L Carbon Dioxide (22-30) mmol/L BUN (9-20) mg/dL Creatinine (0.66-1.25) mg/dL Glucose (74-99) mg/dL POC Glucose (mg/dL) 100 H 110 H (75-99) mg/dL Calcium (8.4-10.2) mg/dL Ionized Calcium Warren (4.5-5.3) mg/dL Albumin 2.7 L (3.5-5.0) g/dL Triglycerides 344 H (<150) mg/dL 05/29/17 05/29/17 05/29/17 Range/Units 00:14 04:18 07:06 RBC 3.48 L (4.30-5.90) m/uL Hgb 9.7 L (13.0-17.5) gm/dL Hct 30.5 L (39.0-53.0) % Lymphocytes # 0.8 L (1.0-4.8) k/uL Sodium (137-145) mmol/L Potassium (3.5-5.1) mmol/L Carbon Dioxide (22-30) mmol/L BUN (9-20) mg/dL Creatinine (0.66-1.25) mg/dL Glucose (74-99) mg/dL POC Glucose (mg/dL) 160 H 145 H (75-99) mg/dL Calcium (8.4-10.2) mg/dL Ionized Calcium Warren (4.5-5.3) mg/dL Albumin (3.5-5.0) g/dL Triglycerides (<150) mg/dL 05/29/17 05/29/17 Range/Units 07:06 07:41 RBC (4.30-5.90) m/uL Hgb (13.0-17.5) gm/dL Hct (39.0-53.0) % Lymphocytes # (1.0-4.8) k/uL Sodium 130 L (137-145) mmol/L Potassium 3.4 L (3.5-5.1) mmol/L Carbon Dioxide 21 L (22-30) mmol/L BUN 46 H (9-20) mg/dL Creatinine 4.95 H (0.66-1.25) mg/dL Glucose 119 H (74-99) mg/dL POC Glucose (mg/dL) 120 H (75-99) mg/dL Calcium 8.0 L (8.4-10.2) mg/dL Ionized Calcium Warren 4.4 L (4.5-5.3) mg/dL Albumin (3.5-5.0) g/dL Triglycerides (<150) mg/dL Microbiology - Last 24 Hours (Table) 05/22/17 14:25 Blood Culture - Final Blood No Growth after 144 hours Assessment and Plan (1) Bilateral pulmonary infiltrates on chest x-ray Narrative/Plan: IV Fortaz Current Visit: Yes Status: Acute Code(s): R91.8 - OTHER NONSPECIFIC ABNORMAL FINDING OF LUNG FIELD SNOMED Code(s): 787201790 (2) Peritonitis due to infected peritoneal dialysis catheter Narrative/Plan: Stage renal disease maintained on peritoneal dialysis 1 time intraperitoneal vancomycin on May 21 Patient was continued with intraperitoneal Fortaz 1 g daily starting May 21 Patient was started on IV vancomycin by Dr. Padilla nephrology Dr. Sy infectious disease is following this patient as well We'll continue to follow cultures Current Visit: Yes Status: Acute Code(s): T85.71XA - INFECT/INFLM REACTION DUE TO PERITON DIALYSIS CATHETER, INIT; K65.9 - PERITONITIS, UNSPECIFIED SNOMED Code(s): 499621698 (3) Chronic renal failure Narrative/Plan: PD access and abdomen was removed CAPD associated peritonitis Identified as coagulase-negative staph, as well as staph aureus Insulin-dependent diabetes mellitus Current Visit: Yes Status: Chronic Code(s): N18.9 - CHRONIC KIDNEY DISEASE, UNSPECIFIED SNOMED Code(s): 11832334 (4) Diabetes mellitus Narrative/Plan: Diabetes mellitus well controlled on current medical therapy Current renal failure secondary to hypertension and i diabetes mellitus Current Visit: Yes Status: Chronic Code(s): E11.9 - TYPE 2 DIABETES MELLITUS WITHOUT COMPLICATIONS SNOMED Code(s): 59964838 Time with Patient: Greater than 30
[2017-05-29 12:09] LABS: Glucose,Whole Blood 183 mg/dL (75-99)
--- NOTE | 2017-05-29 13:42 | PN ---
PROGRESS NOTE The patient is seen for followup for end-stage renal disease. He is currently awake. He is not in any acute distress. His mentation has improved significantly with initiation of hemodialysis. EXAMINATION: Blood pressure 149/79, heart rate 88 per minute patient is afebrile. Examination of the heart S1, S2. Examination lungs bilateral breath sounds are heard. Decreased breath sounds at bases. Abdomen is soft, nontender. Examination lower extremity shows no significant edema. The patient has left BKA. HOME AIDE exam is grossly intact. LABS SHOW: Sodium 130, potassium 3.4, hemoglobin 9.7 g/dL. ASSESSMENT: 1. End-stage renal disease, currently on hemodialysis on a Wednesday, Wednesday, Wednesday schedule. 2. CAPD peritonitis status post removal of PD catheter with fluid culture growing MSSA. 3. Mental status changes, confusion secondary to sepsis currently improved. 4. CKD mineral bone disorder maintained on PhosLo. 5. Hypertension currently on lisinopril and Norvasc. Continue current medications. PLAN: Hemodialysis on Wednesday. The patient can be discharged once he is set up for outpatient chair time. MMODL / IJN: [id number] /
[2017-05-29] MEDS: POTASSIUM CHLORIDE 10 MEQ, LIDOCAINE 2% INJ 10 MG in SODIUM CHLORIDE 0.9% 100 ML IVPB SCH ×2 (15:17→16:19)
[2017-05-29] MEDS: FAT EMULSION 20% 250 ML in EMPTY BAG 1 BAG IV SCH (15:19)
[2017-05-29 17:21] LABS: Glucose,Whole Blood 164 mg/dL (75-99)
[2017-05-29] MEDS: TAMSULOSIN 0.4 MG CAP.ER.24H PO SCH (17:24)
[2017-05-29] MEDS: ONDANSETRON 4 MG/2 ML VIAL IVP PRN (18:08)
[2017-05-29] MEDS: ceFAZolin IN SWFI 2 GM/20 ML SYRINGE IVP SCH (18:31)
[2017-05-29 20:45] LABS: Glucose,Whole Blood 196 mg/dL (75-99)
[2017-05-29] MEDS: INSULIN DETEMIR 100 UNIT/ML 10 ML VIAL SQ SCH (21:37)
[2017-05-29] MEDS: ATORVASTATIN 80 MG TAB PO SCH (22:00)
[2017-05-29] MEDS: METOCLOPRAMIDE 5 MG/ML 2 ML VIAL IVP PRN (23:56)
[2017-05-30 07:36] LABS: Glucose,Whole Blood 146 mg/dL (75-99)
[2017-05-30] MEDS: PANTOPRAZOLE 40 MG/10 ML VIAL IVP SCH (07:49)
[2017-05-30] MEDS: levETIRAcetam IV 750 MG in SODIUM CHLORIDE 0.9% 100 ML IVPB SCH ×2 (07:49→20:29)
[2017-05-30] MEDS: SEVELAMER 800 MG TAB PO SCH ×3 (07:50→16:57)
[2017-05-30] MEDS: AMIODARONE 200 MG TAB PO SCH ×2 (07:50→20:29)
[2017-05-30] MEDS: LEVOTHYROXINE 25 MCG TAB PO SCH (07:50)
[2017-05-30] MEDS: SODIUM BICARBONATE TAB 650 MG TAB PO SCH ×2 (07:50→20:29)
[2017-05-30] MEDS: CALCIUM ACETATE 667 MG CAP PO SCH ×3 (07:50→16:57)
[2017-05-30] MEDS: THIAMINE 100 MG TAB PO SCH (07:50)
[2017-05-30] MEDS: LISINOPRIL 20 MG TAB PO SCH (07:50)
[2017-05-30] MEDS: INSULIN ASPART 100 UNIT/ML 1 ML 10 ML VIAL SQ SCH ×3 (07:50→17:31)
[2017-05-30] MEDS: amLODIPine 10 MG TAB PO SCH (07:50)
[2017-05-30] MEDS: VALPROATE SODIUM 750 MG in SODIUM CHLORIDE 0.9% 50 ML IVPB SCH ×3 (08:18→23:55)
[2017-05-30 08:26] LABS: Basophils % (A) 0 %; CH 28.3; CHCM 32.6; Eosinophils # (A) 0.3 k/uL (0-0.7); Eosinophils % (A) 4 %; HCT 30.5 % (39.0-53.0); HDW 3.62; HGB 9.7 gm/dL (13.0-17.5); Hypochromasia Slight; Luc # (Auto) 0.18; Luc % (Auto) 3; Lymphocytes # (A) 0.8 k/uL (1.0-4.8); Lymphocytes % (A) 11 %; MCH 27.5 pg (25.0-35.0); MCHC 31.8 g/dL (31.0-37.0); MCV 86.6 fL (80.0-100.0); Mean Platelet Volume 6.9; Monocytes # (A) 0.6 k/uL (0-1.0); Monocytes % (A) 9 %; Neutrophils # (A) 5.1 k/uL (1.3-7.7); Neutrophils % (A) 72 %; Poikilocytosis Slight; RBC 3.52 m/uL (4.30-5.90); RDW 13.9 % (11.5-15.5); WBC 7.1 k/uL (3.8-10.6)
[2017-05-30 08:33] LABS: Ionized Calcium 4.2 mg/dL (4.5-5.3)
[2017-05-30 08:39] LABS: Calcium 7.8 mg/dL (8.4-10.2); Magnesium 2.1 mg/dL (1.6-2.3); Phosphorus 6.1 mg/dL (2.5-4.5); Potassium 3.9 mmol/L (3.5-5.1)
--- NOTE | 2017-05-30 11:45 | P.PN ---
Subjective Progress Note Date: 05/30/17 Principal diagnosis: Abdominal pain. Peritonitis Patient's outlook is significantly improved he is awake alert smiling and talking significantly better than he was even a day ago BUN/creatinine are almost back to baseline. Patient is eating significantly better than he was 2 days ago patient's moving bowels slightly and passing gas Objective - Vital Signs Vital signs: Vital Signs Temp 98.9 F 05/30/17 07:00 Pulse 89 05/30/17 07:00 Resp 16 05/30/17 07:00 BP 161/92 05/30/17 07:00 Pulse Ox 98 05/30/17 08:24 Intake & Output 05/29/17 05/30/17 05/30/17 18:59 06:59 18:59 Intake Total 1960 Output Total 125 Balance 1960 - Weight 97.5 kg Intake: IV 150 Valproate Sodium 750 mg 50 In Sodium Chloride 0.9% 50 ml @ 50 mls/hr IVPB Q8HR [facility] Rx#:[id number] levETIRAcetam IV 750 mg 100 In Sodium Chloride 0.9% 100 ml @ 400 mls/hr IVPB Q12HR [facility] Rx#:[id number] Intake, IV Titration 1811 Amount Amino Acid 4.25%-D10w+ 800 Lytes*E* 1,000 ml @ 100 mls/hr IV .BY DURATION [facility] Rx#:[id number] Mvi, Adult No.4 with Vit 1011 K 10 ml Trace (Conc-1Ml/ Dose) 1 ml In Amino Acid 4.25%-D10w+Lytes*E* 1,000 ml @ 100 mls/hr IV .BY DURATION [facility] Rx#: [id number] Output: Urine 125 Other: Voiding Method Urinal # Voids 2 1 # Bowel Movements 0 - Exam General: [Patient awake, alert and oriented times 3. Patient in no acute distress.] HEENT: [PERRL. EOMI. No pharyngeal erythema or exudate.] Neck: [No adenopathy.] Cardiac: [Heart regular in rate and rhythm. No S3. No S4. No clicks, rubs. No murmur.] Lungs: [Clear to auscultation bilaterally.] Abdomen: [No mass. No organomegaly. Bowel sounds presnt and diffuse lower abdominal pain across his belly.] Extremes: [No edema no cyanosis no claudication normal pulses, left BKA : [] Musculoskeletal: [No joint erythema, edema or tenderness.] Skin: [No rash.] Neurologic: [No lateralizing deficits. CN II - XII grossly intact.] Lymphatic: [No adenopathy.] - Labs CBC & Chem 7: 05/30/17 07:52 05/30/17 07:52 Labs: Abnormal Lab Results - Last 24 Hours (Table) 05/29/17 05/29/17 05/29/17 Range/Units 11:43 16:59 20:43 RBC (4.30-5.90) m/uL Hgb (13.0-17.5) gm/dL Hct (39.0-53.0) % Lymphocytes # (1.0-4.8) k/uL Sodium (137-145) mmol/L Chloride (98-107) mmol/L BUN (9-20) mg/dL Creatinine (0.66-1.25) mg/dL Glucose (74-99) mg/dL POC Glucose (mg/dL) 183 H 164 H 196 H (75-99) mg/dL Calcium (8.4-10.2) mg/dL Ionized Calcium Warren (4.5-5.3) mg/dL Phosphorus (2.5-4.5) mg/dL 05/30/17 05/30/17 05/30/17 Range/Units 07:18 07:52 07:52 RBC 3.52 L (4.30-5.90) m/uL Hgb 9.7 L (13.0-17.5) gm/dL Hct 30.5 L (39.0-53.0) % Lymphocytes # 0.8 L (1.0-4.8) k/uL Sodium 129 L (137-145) mmol/L Chloride 96 L (98-107) mmol/L BUN 69 H (9-20) mg/dL Creatinine 5.93 H* (0.66-1.25) mg/dL Glucose 147 H (74-99) mg/dL POC Glucose (mg/dL) 146 H (75-99) mg/dL Calcium 7.8 L (8.4-10.2) mg/dL Ionized Calcium Warren 4.2 L (4.5-5.3) mg/dL Phosphorus 6.1 H (2.5-4.5) mg/dL Assessment and Plan (1) Bilateral pulmonary infiltrates on chest x-ray Narrative/Plan: IV Fortaz Current Visit: Yes Status: Acute Code(s): R91.8 - OTHER NONSPECIFIC ABNORMAL FINDING OF LUNG FIELD SNOMED Code(s): 878995990 (2) Peritonitis due to infected peritoneal dialysis catheter Narrative/Plan: Stage renal disease maintained on peritoneal dialysis 1 time intraperitoneal vancomycin on May 21 Patient was continued with intraperitoneal Fortaz 1 g daily starting May 21 Patient was started on IV vancomycin by Dr. Padilla nephrology Dr. Sy infectious disease is following this patient as well We'll continue to follow cultures Current Visit: Yes Status: Acute Code(s): T85.71XA - INFECT/INFLM REACTION DUE TO PERITON DIALYSIS CATHETER, INIT; K65.9 - PERITONITIS, UNSPECIFIED SNOMED Code(s): 998766525 (3) Chronic renal failure Narrative/Plan: PD access and abdomen was removed CAPD associated peritonitis Identified as coagulase-negative staph, as well as staph aureus Insulin-dependent diabetes mellitus Current Visit: Yes Status: Chronic Code(s): N18.9 - CHRONIC KIDNEY DISEASE, UNSPECIFIED SNOMED Code(s): 72718399 (4) Diabetes mellitus Narrative/Plan: Diabetes mellitus well controlled on current medical therapy Current renal failure secondary to hypertension and i diabetes mellitus Current Visit: Yes Status: Chronic Code(s): E11.9 - TYPE 2 DIABETES MELLITUS WITHOUT COMPLICATIONS SNOMED Code(s): 59533070 Time with Patient: Greater than 30
[2017-05-30] MEDS: SCOPOLAMINE 1.5MG/72HR PATCH TRANSDERM SCH (11:48)
[2017-05-30 12:04] LABS: Glucose,Whole Blood 156 mg/dL (75-99)
--- NOTE | 2017-05-30 12:28 | P.PN ---
Subjective Progress Note Date: 05/29/17 This patient is a 46 year old male being evaluated for left sided weakness and possible stroke. The patient yesterday had symptoms of acute left-sided hemiparesis and weakness. He was evaluated by Dr. Shoemaker. There was concern for possibility of acute stroke and neurology was consulted. Patient underwent MRI of the brain today for further evaluation of acute stroke. MRI results indicate nonspecific white matter changes in the posterior circulation and involving the parietal and occipital lobes. This raises the possibility of posterior reversible encephalopathy syndrome (PRES). Patient had no evidence of acute ischemia on diffusion-weighted imaging. There was evidence of a small 2.3 cm left middle cranial fossa arachnoid cyst. The patient continues to be treated for underlying sepsis. He has evidence of an MSSA and peritoneal dialysis catheter associated peritonitis. His peritoneal dialysis catheter was removed by general surgery. Patient did have a permacath placement for hemodialysis. He is being followed closely by infectious disease. He continues on multiple antibiotics at this time. The patient's mental status has not shown much improvement this evening. According to the nursing staff he was much more alert today as compared to yesterday. We did review the results of the MRI today with the patient. It is unclear whether he has a clear understanding of the results at this time. Clearly there is no evidence for acute stroke on the MRI. the patient's overall mental status is improved from yesterday. He is more awake and alert. His speech is more clear today as well. We will continue close neurological follow-up of this patient. Patient would benefit from a repeat MRI of the brain in 1 month to see if there is any improvement or changes in the posterior section of the brain. As noted the differential would include PRES Syndrome. This patient's Depakote level came back at 43.3. His Keppra level also was completed yesterday and was 46.1. We will give the patient an extra dose of Depakote tonight. He has had no active seizures. He did have hemodialysis today. The patient has been switched from peritoneal dialysis to hemodialysis due to his severe peritonitis. We will continue close neurological follow-up with this patient during this admission. His Keppra level is therapeutic at 46.1. We will continue close neurological follow-up for this patient during this admission. The patient continues to have significant nausea and vomiting symptoms. Plans are being made for alternative nutritional feedings for the patient. The dietitian has been consulted for PPN due to this patient's poor oral intake and severe nausea and vomiting. He is much more awake and alert today as compared to yesterday. He states that his nausea vomiting symptoms have been chronic and does not necessarily reflect his hemodialysis state. We will await further recommendations from internal medicine and nephrology. Patient does not demonstrate evidence of persistent left-sided weakness. As noted we are recommending a follow-up MRI of the brain in 1 month for comparison to his study done this admission. His current MRI fails to reveal any evidence of acute stroke. Patient does seem to be doing slightly better today. The patient is much more awake and alert today. He is complaining that his pain medications are not being given in a timely manner. We will discuss this with his nursing staff. He is having less nausea vomiting symptoms. Patient will likely require subacute rehab at the time of discharge. His overall prognosis at this time remains guarded. we will continue close neurological follow-up of this patient during this admission. Objective - Vital Signs Vital signs: Vital Signs Temp 98.8 F 05/29/17 07:00 Pulse 88 05/29/17 07:00 Resp 16 05/29/17 07:00 BP 175/95 05/29/17 07:00 Pulse Ox 93 L 05/29/17 07:00 Intake & Output 05/28/17 05/29/17 05/29/17 18:59 06:59 18:59 Intake Total 100 Output Total 750 Balance -650 Weight 92 kg 87 kg Intake: Oral 100 Output: Urine 150 Emesis 600 Other: Voiding Method Urinal Urinal # Voids 0 0 # Emeses 2 - Exam Physical examination: PHYSICAL EXAMINATION: Patient is resting comfortably in bed. VITAL SIGNS: Blood pressure is [135/89]. Heart rate is [97]. Respiration is [18] . Temperature is [97.2]. HEENT: Head is atraumatic, neck is supple, there were no carotid bruits. CHEST: Lungs are clear to auscultation and percussion. CARDIAC: S1, S2 normal rate and rhythm. There is no murmur. ABDOMEN: Soft and nontender. Bowel sounds are present. EXTREMITIES: There is no pedal edema. Peripheral pulses are present. Neurological examination: Patient's neurological status show significant improvement in his mental status. He is much more awake and alert today. He is following all commands. He has no focal motor deficit on neurological examination. he has less nausea and vomiting symptoms today. His neurological examination is nonfocal today. We did review his MRI results today with him. - Labs CBC & Chem 7: 05/30/17 07:52 05/30/17 07:52 Labs: Abnormal Lab Results - Last 24 Hours (Table) 05/28/17 05/28/17 05/29/17 Range/Units 13:56 17:19 00:14 RBC (4.30-5.90) m/uL Hgb (13.0-17.5) gm/dL Hct (39.0-53.0) % Lymphocytes # (1.0-4.8) k/uL Sodium (137-145) mmol/L Potassium (3.5-5.1) mmol/L Carbon Dioxide (22-30) mmol/L BUN (9-20) mg/dL Creatinine (0.66-1.25) mg/dL Glucose (74-99) mg/dL POC Glucose (mg/dL) 110 H 160 H (75-99) mg/dL Calcium (8.4-10.2) mg/dL Ionized Calcium Warren (4.5-5.3) mg/dL Albumin 2.7 L (3.5-5.0) g/dL Triglycerides 344 H (<150) mg/dL 05/29/17 05/29/17 05/29/17 Range/Units 04:18 07:06 07:06 RBC 3.48 L (4.30-5.90) m/uL Hgb 9.7 L (13.0-17.5) gm/dL Hct 30.5 L (39.0-53.0) % Lymphocytes # 0.8 L (1.0-4.8) k/uL Sodium 130 L (137-145) mmol/L Potassium 3.4 L (3.5-5.1) mmol/L Carbon Dioxide 21 L (22-30) mmol/L BUN 46 H (9-20) mg/dL Creatinine 4.95 H (0.66-1.25) mg/dL Glucose 119 H (74-99) mg/dL POC Glucose (mg/dL) 145 H (75-99) mg/dL Calcium 8.0 L (8.4-10.2) mg/dL Ionized Calcium Warren 4.4 L (4.5-5.3) mg/dL Albumin (3.5-5.0) g/dL Triglycerides (<150) mg/dL 05/29/17 05/29/17 Range/Units 07:41 11:43 RBC (4.30-5.90) m/uL Hgb (13.0-17.5) gm/dL Hct (39.0-53.0) % Lymphocytes # (1.0-4.8) k/uL Sodium (137-145) mmol/L Potassium (3.5-5.1) mmol/L Carbon Dioxide (22-30) mmol/L BUN (9-20) mg/dL Creatinine (0.66-1.25) mg/dL Glucose (74-99) mg/dL POC Glucose (mg/dL) 120 H 183 H (75-99) mg/dL Calcium (8.4-10.2) mg/dL Ionized Calcium Warren (4.5-5.3) mg/dL Albumin (3.5-5.0) g/dL Triglycerides (<150) mg/dL Microbiology - Last 24 Hours (Table) 05/22/17 14:25 Blood Culture - Final Blood No Growth after 144 hours Assessment and Plan (1) TIA (transient ischemic attack) Current Visit: Yes Status: Acute SNOMED Code(s): 870892020 (2) Acute encephalopathy Current Visit: Yes Status: Acute SNOMED Code(s): 8234183 (3) Seizure disorder Current Visit: Yes Status: Acute SNOMED Code(s): 907572777 (4) Encounter for CAPD (continuous ambulatory peritoneal dialysis) Current Visit: Yes Status: Acute SNOMED Code(s): 391853248 (5) Peritonitis due to infected peritoneal dialysis catheter Current Visit: Yes Status: Acute SNOMED Code(s): 572662069 (6) Chronic renal failure Current Visit: Yes Status: Chronic SNOMED Code(s): 44362250 (7) Diabetes mellitus Current Visit: Yes Status: Chronic SNOMED Code(s): 85161417 Plan: This patient is a 46-year-old male who is being followed closely for history of left-sided weakness and mild confusion. Patient is much more awake and alert today. His nausea and vomiting symptoms have slightly improved. He is being evaluated for possible nutritional support. Patient has not had any focal findings of left-sided weakness at this time. We have recommended that he should have a follow-up MRI of the brain in 1 month. He will likely need subacute rehab at the time of discharge. He is to continue on hemodialysis as per the recommendations of nephrology. There's been significant improvement in his overall mental status since he is been started on hemodialysis. He is recovering from a episode of diffuse metabolic encephalopathy due to his sepsis and renal failure. His nausea vomiting symptoms have shown slight improvement. We will continue close neurological follow-up with this patient during this admission. His overall prognosis at this time remains guarded.
[2017-05-30] MEDS: FAT EMULSION 20% 250 ML in EMPTY BAG 1 BAG IV SCH (15:21)
--- NOTE | 2017-05-30 16:28 | PN ---
PROGRESS NOTE Patient is seen for followup for end-stage renal disease. He is currently lying in bed. He states he still does not feel like eating. He is maintained on TPN. There is no significant vomiting on nausea. EXAMINATION: Blood pressure was 158/94, heart rate 89 per minute. He is afebrile. Examination of the heart S1, S2. Examination of the lungs bilateral breath sounds are heard. Abdomen is soft, with tenderness noted in the mid abdomen. Examination lower extremities shows right BKA. No significant edema is noted. LAB: Show sodium 129, potassium 3.9, BUN 69, serum creatinine 5.93, hemoglobin 9.7 g/dL. ASSESSMENT: 1. End-stage renal disease, on hemodialysis, currently on a Wednesday, Wednesday, Wednesday schedule. 2. Decreased oral intake, maintained on TPN. 3. CAPD peritonitis status post removal of PD catheter and switched over to hemodialysis. PD fluid culture grew MSSA. PLAN: Continue to encourage increased oral intake, hemodialysis in a.m. MMODL / IJN: [id number] /
[2017-05-30] MEDS: ceFAZolin IN SWFI 2 GM/20 ML SYRINGE IVP SCH (16:56)
[2017-05-30] MEDS: TAMSULOSIN 0.4 MG CAP.ER.24H PO SCH (16:56)
[2017-05-30 17:16] LABS: Glucose,Whole Blood 212 mg/dL (75-99)
[2017-05-30] MEDS: MORPHINE SULFATE 4 MG/ML SYRINGE IVP PRN (20:28)
[2017-05-30] MEDS: 1: MVI, ADULT NO.4 WITH VIT K 10 ML, TRACE (CONC-1ML/DOSE) 1 ML, PARENTERAL ELECTROLYTES IV SCH ×12 (20:29→20:31)
[2017-05-30] MEDS: ONDANSETRON 4 MG/2 ML VIAL IVP PRN (20:29)
[2017-05-30] MEDS: ATORVASTATIN 80 MG TAB PO SCH (20:29)
[2017-05-30 20:47] LABS: Glucose,Whole Blood 220 mg/dL (75-99)
--- NOTE | 2017-05-30 20:56 | P.PN ---
Subjective Progress Note Date: 05/30/17 This patient is a 46 year old male being evaluated for left sided weakness and possible stroke. The patient yesterday had symptoms of acute left-sided hemiparesis and weakness. He was evaluated by Dr. Shoemaker. There was concern for possibility of acute stroke and neurology was consulted. Patient underwent MRI of the brain today for further evaluation of acute stroke. MRI results indicate nonspecific white matter changes in the posterior circulation and involving the parietal and occipital lobes. This raises the possibility of posterior reversible encephalopathy syndrome (PRES). Patient had no evidence of acute ischemia on diffusion-weighted imaging. There was evidence of a small 2.3 cm left middle cranial fossa arachnoid cyst. The patient continues to be treated for underlying sepsis. He has evidence of an MSSA and peritoneal dialysis catheter associated peritonitis. His peritoneal dialysis catheter was removed by general surgery. Patient did have a permacath placement for hemodialysis. He is being followed closely by infectious disease. He continues on multiple antibiotics at this time. The patient's mental status has not shown much improvement this evening. According to the nursing staff he was much more alert today as compared to yesterday. We did review the results of the MRI today with the patient. It is unclear whether he has a clear understanding of the results at this time. Clearly there is no evidence for acute stroke on the MRI. the patient's overall mental status is improved from yesterday. He is more awake and alert. His speech is more clear today as well. We will continue close neurological follow-up of this patient. Patient would benefit from a repeat MRI of the brain in 1 month to see if there is any improvement or changes in the posterior section of the brain. As noted the differential would include PRES Syndrome. This patient's Depakote level came back at 43.3. His Keppra level also was completed and was 46.1. We will give the patient an extra dose of Depakote tonight. He has had no active seizures. He did have hemodialysis today. The patient has been switched from peritoneal dialysis to hemodialysis due to his severe peritonitis. We will continue close neurological follow-up with this patient during this admission. His Keppra level is therapeutic at 46.1. We will continue close neurological follow-up for this patient during this admission. The patient continues to have significant nausea and vomiting symptoms. Plans are being made for alternative nutritional feedings for the patient. The dietitian has been consulted for PPN due to this patient's poor oral intake and severe nausea and vomiting. He is much more awake and alert today as compared to yesterday. He states that his nausea vomiting symptoms have been chronic and does not necessarily reflect his hemodialysis state. We will await further recommendations from internal medicine and nephrology. Patient does not demonstrate evidence of persistent left-sided weakness. As noted we are recommending a follow-up MRI of the brain in 1 month for comparison to his study done this admission. His current MRI fails to reveal any evidence of acute stroke. Patient does seem to be doing slightly better today. The patient is much more awake and alert today. He is complaining that his pain medications are not being given in a timely manner. We will discuss this with his nursing staff. He is having less nausea vomiting symptoms. Patient will likely require subacute rehab at the time of discharge. His overall prognosis at this time remains guarded. we will continue close neurological follow-up of this patient during this admission. Objective - Vital Signs Vital signs: Vital Signs Temp 98.0 F 05/30/17 15:00 Pulse 99 05/30/17 15:00 Resp 16 05/30/17 15:00 BP 163/88 05/30/17 15:00 Pulse Ox 96 05/30/17 15:00 Intake & Output 05/29/17 05/30/17 05/30/17 18:59 06:59 18:59 Intake Total 1960 Output Total 125 Balance 1 -125 Weight 97.5 kg Intake: IV 150 Valproate Sodium 750 mg 50 In Sodium Chloride 0.9% 50 ml @ 50 mls/hr IVPB Q8HR TRAE Rx#:[id number] levETIRAcetam IV 750 mg 100 In Sodium Chloride 0.9% 100 ml @ 400 mls/hr IVPB Q12HR TRAE Rx#:[id number] Intake, IV Titration 1811 Amount Amino Acid 4.25%-D10w+ 800 Lytes*E* 1,000 ml @ 100 mls/hr IV .BY DURATION TRAE Rx#:[id number] Mvi, Adult No.4 with Vit 1011 K 10 ml Trace (Conc-1Ml/ Dose) 1 ml In Amino Acid 4.25%-D10w+Lytes*E* 1,000 ml @ 100 mls/hr IV .BY DURATION TRAE Rx#: [id number] Output: Urine 125 Other: Voiding Method Urinal # Voids 2 1 1 # Bowel Movements 0 0 - Exam Physical examination: PHYSICAL EXAMINATION: Patient is resting comfortably in bed. VITAL SIGNS: Blood pressure is [163/88]. Heart rate is [99]. Respiration is [16] . Temperature is [98.0]. HEENT: Head is atraumatic, neck is supple, there were no carotid bruits. CHEST: Lungs are clear to auscultation and percussion. CARDIAC: S1, S2 normal rate and rhythm. There is no murmur. ABDOMEN: Soft and nontender. Bowel sounds are present. EXTREMITIES: There is no pedal edema. Peripheral pulses are present. Neurological examination: Patient's neurological status show significant improvement in his mental status. He is much more awake and alert today. He is following all commands. He has no focal motor deficit on neurological examination. he has less nausea and vomiting symptoms today. His neurological examination is nonfocal today. We did review his MRI results today with him. Met Corazon Breen and finished - Labs CBC & Chem 7: 05/30/17 07:52 05/30/17 07:52 Labs: Abnormal Lab Results - Last 24 Hours (Table) 05/29/17 05/29/17 05/30/17 Range/Units 16:59 20:43 07:18 RBC (4.30-5.90) m/uL Hgb (13.0-17.5) gm/dL Hct (39.0-53.0) % Lymphocytes # (1.0-4.8) k/uL Sodium (137-145) mmol/L Chloride (98-107) mmol/L BUN (9-20) mg/dL Creatinine (0.66-1.25) mg/dL Glucose (74-99) mg/dL POC Glucose (mg/dL) 164 H 196 H 146 H (75-99) mg/dL Calcium (8.4-10.2) mg/dL Ionized Calcium Warren (4.5-5.3) mg/dL Phosphorus (2.5-4.5) mg/dL 05/30/17 05/30/17 05/30/17 Range/Units 07:52 07:52 11:49 RBC 3.52 L (4.30-5.90) m/uL Hgb 9.7 L (13.0-17.5) gm/dL Hct 30.5 L (39.0-53.0) % Lymphocytes # 0.8 L (1.0-4.8) k/uL Sodium 129 L (137-145) mmol/L Chloride 96 L (98-107) mmol/L BUN 69 H (9-20) mg/dL Creatinine 5.93 H* (0.66-1.25) mg/dL Glucose 147 H (74-99) mg/dL POC Glucose (mg/dL) 156 H (75-99) mg/dL Calcium 7.8 L (8.4-10.2) mg/dL Ionized Calcium Warren 4.2 L (4.5-5.3) mg/dL Phosphorus 6.1 H (2.5-4.5) mg/dL Assessment and Plan (1) TIA (transient ischemic attack) Current Visit: Yes Status: Acute SNOMED Code(s): 560724236 (2) Acute encephalopathy Current Visit: Yes Status: Acute SNOMED Code(s): 4074232 (3) Seizure disorder Current Visit: Yes Status: Acute SNOMED Code(s): 771237467 (4) Encounter for CAPD (continuous ambulatory peritoneal dialysis) Current Visit: Yes Status: Acute SNOMED Code(s): 703583115 (5) Peritonitis due to infected peritoneal dialysis catheter Current Visit: Yes Status: Acute SNOMED Code(s): 652008604 (6) Chronic renal failure Current Visit: Yes Status: Chronic SNOMED Code(s): 52486672 (7) Diabetes mellitus Current Visit: Yes Status: Chronic SNOMED Code(s): 05365661 Plan: This patient is a 46-year-old male who is being followed for history of mental status changes and metabolic encephalopathy. Patient had developed. Tinnitus with sepsis. He is now been transitioned into hemodialysis for treatment of his renal failure. He was very much encephalopathic when initially evaluated in the intensive care unit. He is doing much better today. Patient is much more awake and alert. He has been transitioned over to fall hemodialysis 3 days a week. He does continue to show improvement in his overall cognitive function. He was able to keep some food down earlier today. His nausea symptoms still seem to be persistent. We will continue close neurological follow-up with this patient during this admission. His overall prognosis at this time remains very guarded.
[2017-05-30] MEDS: INSULIN DETEMIR 100 UNIT/ML 10 ML VIAL SQ SCH (20:57)
[2017-05-30] MEDS ORDERED: CALCIUM GLUCONATE 2,000 MG in SODIUM CHLORIDE 0.9% 100 ML IVPB ONE (21:00)
--- NOTE | 2017-05-31 05:15 | PN ---
PROGRESS NOTE DATE OF SERVICE: 05/30/2017 REASON FOR FOLLOWUP: MSSA peritoneal dialysis peritonitis. INTERVAL HISTORY: The patient is afebrile. Has been breathing comfortably. Still has occasional vomiting, but denies any abdominal pain and no diarrhea. Currently waiting for placement. PHYSICAL EXAMINATION: On examination, blood pressure 163/88 with a pulse of 99, temperature of 98. He is 98% on 2 L nasal cannula. General description is a middle-aged male lying in bed in no distress. RESPIRATORY SYSTEM: Unlabored breathing, clear to auscultation anteriorly. HEART: S1, S2. Regular rate and rhythm. ABDOMEN: Soft, no tenderness. LABS: Hemoglobin 9.7, white count 7.1 with a BUN of 69, creatinine 5.93. DIAGNOSTIC IMPRESSION AND PLAN: Patient with MSSA peritoneal dialysis peritonitis, status post removal of the catheter. Currently on hemodialysis. Continue with IV cefazolin that will be continued post dialysis for another 10 days to finish course of therapy. Continue supportive care. MMODL / IJN: [id number] /
[2017-05-31 07:34] LABS: Glucose,Whole Blood 189 mg/dL (75-99)
[2017-05-31 07:58] LABS: Calcium 7.7 mg/dL (8.4-10.2); Magnesium 2.1 mg/dL (1.6-2.3); Potassium 3.7 mmol/L (3.5-5.1)
--- NOTE | 2017-05-31 08:02 | P.CONS ---
History of Present Illness - Reason for Consult Consult date: 05/29/17 Persistent nausea and vomiting - History of Present Illness The patient is a 46-year-old male with end-stage renal disease on peritoneal dialysis was admitted to the hospital with peritonitis secondary to catheter related sepsis and had positive blood cultures for coagulase-negative staph aureus. The patient had nausea and abdominal pains on admission and then asked to see him to cause of persistent nausea and vomiting. The patient reports feeling somewhat improved today and does not wish to have evaluation for his nausea and vomiting immediately. He denied heartburn, dysphagia, odynophagia or any hematemesis or hematochezia. No prior history of peptic ulcer disease. Review of Systems Constitutional: Denied fever, chills or unintentional weight loss Cardiopulmonary: No chest pains, SOB or palpitations Neurologic: No headaches, double vision or other sensory or motor changes. History of seizure disorder Genitourinary: History of end-stage renal disease on peritoneal dialysis currently on hemodialysis Musculoskeletal: No joint pain or swelling Skin: No rashes Endocrine: History of diabetes mellitus Hematologic: No history of anemia or bleeding tendency Psychiatric: No anxiety or depression Past Medical History Past Medical History: Coronary Artery Disease (CAD), Diabetes Mellitus, Dialysis , Deep Vein Thrombosis (DVT), GERD/Reflux, Hyperlipidemia, Hypertension, Myocardial Infarction (SD), Musculoskeletal Disorder, Renal Disease, Seizure Disorder Additional Past Medical History / Comment(s): Diabetic gastropathy, End stage renal disease currently on peritoneal dialysis , peripheral neuropathy, seizure disorder, compression fracture of the vertebral along with known history of this disease, blood clot from IV line in the upper extremity on the left, coronary artery disease, previous myocardial infarction, insulin- dependent diabetes mellitus, GE reflux, gastritis, chronic anemia, cataracts, currently on peritoneal dialysis, peripheral vascular disease with previous amputation involving a below-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 Last Myocardial Infarction Date:: 2012 History of Any Multi-Drug Resistant Organisms: MRSA Year Discovered:: 04/08/15 MDRO Source:: Blood & Left Foot Past Surgical History: Orthopedic Surgery Additional Past Surgical History / Comment(s): amputation right toes, BKA right leg 2013, GEORGE CATARACTS,VITRECTOMY,GEORGE RETINAL SX Past Anesthesia/Blood Transfusion Reactions: No Reported Reaction Additional Past Anesthesia/Blood Transfusion Reaction / Comm: VERTIGO Past Psychological History: No Psychological Hx Reported Additional Psychological History / Comment(s): Single. Tobacco smoker. Denies significant alcohol or recreational drug use. Originally was from the [place] area and then moved down to [place]. Is now moved back to be with his family members in [place] since 2014. He has no experience. He denies any significant travel history. Brother has a pet dog in the home in which he lives. Relates that his 13-year-old daughter 2 years ago from suicide at the age of 13 Smoking Status: Never smoker Past Alcohol Use History: None Reported Past Drug Use History: None Reported - Past Family History Father Family Medical History: Cancer Additional Family Medical History / Comment(s): CANCER FROM [employer] [place] Mother History Unknown: Yes Family Medical History: Cancer, Supraventricular Tachycardia (SVT) Additional Family Medical History / Comment(s): LUNG CANCER(SMOKER) Medications and Allergies Home Medications Medication Instructions Recorded Confirmed Type Atorvastatin [Lipitor] 80 mg PO HS 04/08/15 05/21/17 History Calcium Acetate [PhosLo] 667 mg PO TID-W/MEALS 04/08/15 05/21/17 History Gabapentin [Neurontin] 300 mg PO TID 04/08/15 05/21/17 History Insulin Glargine [Lantus] 10 unit SQ HS 04/08/15 05/21/17 History Levothyroxine Sodium [Synthroid] 25 mcg PO DAILY 04/08/15 05/21/17 History Insulin Aspart [NovoLOG See Protocol SQ AC-TID 05/21/15 05/21/17 History (formulary)] levETIRAcetam [Keppra] 750 mg PO Q12HR 05/21/15 05/21/17 History Famotidine [Pepcid] 20 mg PO BID 01/20/16 05/21/17 History Sevelamer [Renvela] 1,600 mg PO AC-TID 01/20/16 05/21/17 History Amiodarone [Cordarone] 200 mg PO BID 05/20/17 05/21/17 History Divalproex Sodium [Depakote] 500 mg PO TID 05/20/17 05/21/17 History Dilcia Jordan 1 tab PO DAILY 05/20/17 05/21/17 History Sildenafil Citrate [Viagra] 100 mg PO ONCE PRN 05/20/17 05/20/17 History Tamsulosin [Flomax] 0.8 mg PO PC-SUPPER 05/20/17 05/21/17 History Thiamine [Vitamin B-1] 100 mg PO DAILY 05/20/17 05/21/17 History acetaZOLAMIDE [Diamox] 125 mg PO BID 05/20/17 05/21/17 History amLODIPine [Norvasc] 10 mg PO DAILY 05/20/17 05/21/17 History Allergies Allergy/AdvReac Type Severity Reaction Status Date / Time No Known Allergies Allergy Verified 05/20/17 20:11 Physical Exam Vitals: Vital Signs Temp Pulse Resp BP Pulse Ox 05/29/17 07:00 98.8 F 88 16 175/95 93 L 05/29/17 02:00 149/79 05/28/17 23:45 99.1 F 96 20 164/80 05/28/17 15:00 98.7 F 85 16 157/85 92 L Intake and Output 05/28/17 05/29/17 05/29/17 22:59 06:59 14:59 Intake Total 100 950 Output Total 600 150 Balance -500 -150 950 Intake: IV 150 Valproate Sodium 750 mg 50 In Sodium Chloride 0.9% 50 ml @ 50 mls/hr IVPB Q8HR [facility] Rx#:[id number] levETIRAcetam IV 750 mg 100 In Sodium Chloride 0.9% 100 ml @ 400 mls/hr IVPB Q12HR [facility] Rx#:[id number] Intake, IV Titration 800 Amount Amino Acid 4.25%-D10w+ 800 Lytes*E* 1,000 ml @ 100 mls/hr IV .BY DURATION [facility] Rx#:[id number] Oral 100 Output: Urine 150 Emesis 600 Other: Voiding Method Urinal # Voids 0 # Emeses 2 Weight 92 kg 87 kg General: Appeared stated age, very pleasant, in no acute distress Head and neck: Normocephalic and atraumatic, conjunctivae pink and sclerae not icteric, mucous membranes moist and pink. No masses and an echo tracheal shifts Lungs: Clear to auscultation with no dullness to percussion Heart: Regular, no abnormal signs, murmurs, gallops or friction rubs Abdomen: Soft, no masses or organomegalies. No tenderness. Bowel sounds present Extremities: No clubbing, cyanosis or edema. Has evidence of prior amputations in his lower extremities Neurologic: Alert and oriented 3. Cranial nerves grossly intact, no gross sensory or motor abnormalities Results CBC & Chem 7: 05/30/17 07:52 05/30/17 07:52 Labs: Abnormal Lab Results - Last 24 Hours (Table) 05/28/17 05/28/17 05/29/17 Range/Units 13:56 17:19 00:14 RBC (4.30-5.90) m/uL Hgb (13.0-17.5) gm/dL Hct (39.0-53.0) % Lymphocytes # (1.0-4.8) k/uL Sodium (137-145) mmol/L Potassium (3.5-5.1) mmol/L Carbon Dioxide (22-30) mmol/L BUN (9-20) mg/dL Creatinine (0.66-1.25) mg/dL Glucose (74-99) mg/dL POC Glucose (mg/dL) 110 H 160 H (75-99) mg/dL Calcium (8.4-10.2) mg/dL Ionized Calcium Warren (4.5-5.3) mg/dL Albumin 2.7 L (3.5-5.0) g/dL Triglycerides 344 H (<150) mg/dL 05/29/17 05/29/17 05/29/17 Range/Units 04:18 07:06 07:06 RBC 3.48 L (4.30-5.90) m/uL Hgb 9.7 L (13.0-17.5) gm/dL Hct 30.5 L (39.0-53.0) % Lymphocytes # 0.8 L (1.0-4.8) k/uL Sodium 130 L (137-145) mmol/L Potassium 3.4 L (3.5-5.1) mmol/L Carbon Dioxide 21 L (22-30) mmol/L BUN 46 H (9-20) mg/dL Creatinine 4.95 H (0.66-1.25) mg/dL Glucose 119 H (74-99) mg/dL POC Glucose (mg/dL) 145 H (75-99) mg/dL Calcium 8.0 L (8.4-10.2) mg/dL Ionized Calcium Warren 4.4 L (4.5-5.3) mg/dL Albumin (3.5-5.0) g/dL Triglycerides (<150) mg/dL 05/29/17 05/29/17 Range/Units 07:41 11:43 RBC (4.30-5.90) m/uL Hgb (13.0-17.5) gm/dL Hct (39.0-53.0) % Lymphocytes # (1.0-4.8) k/uL Sodium (137-145) mmol/L Potassium (3.5-5.1) mmol/L Carbon Dioxide (22-30) mmol/L BUN (9-20) mg/dL Creatinine (0.66-1.25) mg/dL Glucose (74-99) mg/dL POC Glucose (mg/dL) 120 H 183 H (75-99) mg/dL Calcium (8.4-10.2) mg/dL Ionized Calcium Warren (4.5-5.3) mg/dL Albumin (3.5-5.0) g/dL Triglycerides (<150) mg/dL Microbiology - Last 24 Hours (Table) 05/22/17 14:25 Blood Culture - Final Blood No Growth after 144 hours Assessment and Plan Assessment: Abdominal pain, nausea and vomiting could be on the basis of gastritis or peptic ulcer disease. The improvement with the treatment of his peritonitis now also points to the possibility of underlying sepsis contributing to his symptoms initially. With his history of diabetes an element of gastroparesis to be kept in mind. As mentioned above, the patient is not interested in workup at this time and wants to wait since he is improving. Plan: Agree with your current management, would keep EGD as a contingency based on his course.
[2017-05-31] MEDS: ONDANSETRON 4 MG/2 ML VIAL IVP PRN (08:24)
[2017-05-31] MEDS: VALPROATE SODIUM 750 MG in SODIUM CHLORIDE 0.9% 50 ML IVPB SCH ×2 (08:24→15:07)
[2017-05-31] MEDS: MORPHINE SULFATE 4 MG/ML SYRINGE IVP PRN (08:26)
[2017-05-31] MEDS: SEVELAMER 800 MG TAB PO SCH ×3 (09:08→17:25)
[2017-05-31] MEDS: levETIRAcetam IV 750 MG in SODIUM CHLORIDE 0.9% 100 ML IVPB SCH ×2 (09:08→20:44)
[2017-05-31] MEDS: CALCIUM ACETATE 667 MG CAP PO SCH ×3 (09:08→17:25)
[2017-05-31] MEDS: INSULIN ASPART 100 UNIT/ML 1 ML 10 ML VIAL SQ SCH ×3 (09:08→17:52)
[2017-05-31] MEDS: PANTOPRAZOLE 40 MG/10 ML VIAL IVP SCH (09:09)
[2017-05-31] MEDS ORDERED: CALCIUM GLUCONATE 2,000 MG in SODIUM CHLORIDE 0.9% 100 ML IVPB ONE (10:00)
[2017-05-31] MEDS: SODIUM BICARBONATE TAB 650 MG TAB PO SCH (10:30)
[2017-05-31] MEDS: LEVOTHYROXINE 25 MCG TAB PO SCH (10:31)
[2017-05-31] MEDS: amLODIPine 10 MG TAB PO SCH (10:31)
[2017-05-31] MEDS: LISINOPRIL 20 MG TAB PO SCH (10:31)
[2017-05-31] MEDS: AMIODARONE 200 MG TAB PO SCH ×2 (10:31→17:25)
[2017-05-31] MEDS: THIAMINE 100 MG TAB PO SCH (10:31)
--- NOTE | 2017-05-31 10:49 | P.PN ---
Subjective Progress Note Date: 05/31/17 05/21/2017 46-year-old male who presented to the emergency room on 05/20/2017 with a chief complaint of abdominal pain and cloudy peritoneal fluid. The patient states he has had abdominal pain that has persisted for two days. He also complained of intermittent nausea and vomiting. He states that he noticed his peritoneal fluid was becoming cloudy as well. The patient has a history of end-stage renal disease. He states he has been on peritoneal dialysis for 2-1/2 years. He states prior to that he did hemodialysis for 8 months but he did not tolerate and had multiple side effects and was then transitioned to peritoneal dialysis. He also has history of coronary artery disease, diabetes mellitus, DVT, gastro-esophageal reflux disease, hypertension, hyperlipidemia, myocardial infarction, and peripheral vascular disease with a left [id number] mutation and a right foot partial amputation. He states he has a wound to his right calf that is not healing. He also has a history of MRSA in 2014 in his blood and left foot. In the emergency room, a chest x-ray was completed which showed bilateral infiltrates. KUB was completed which showed small pneumoperitoneum which was thought to be related to dialysis port. Peritoneal fluid was sent for culture. Sodium on admission was 139, potassium 3.4, BUN 53, creatinine 12.04, WBCs 11.4, hemoglobin 12.7, platelets 176. Troponin was negative 1. Lactic acid on admission was 1.3 It was also noted that while the patient was in the emergency room he received IV pain medication and became unresponsive and apneic and it was difficult to feel a pulse. ER staff started CPR and the patient was revived. The patient also received Narcan. After CPR, there was thoughts of possible rib fractures. Chest xray was completed which was negative for rib fractures. IV pain medication has since been discontinued. The patient was admitted to the hospital under the care of Dr. Aguilar. Consultations were placed to nephrology. The patient was seen and examined at the bedside with Dr. Aguilar on rounds. He states he is feeling okay today. He does continue to complain of abdominal pain but states it is improving. He denies nausea or vomiting. He is tolerating a consistent carbohydrate diet without nausea or vomiting. He remains in contact isolation for history of MRSA infection. He remains on Rocephin and Vanco. He remains on 2L NC with oxygen saturations greater than 92%. Blood pressure is stable. He is afebrile. 05/22/2017 (Notes per Dr. Aguilar) Patient has a recurrent history of end-stage renal disease. Currently maintained on peritoneal dialysis. She presented to the hospital with peritonitis persistent abdominal pain. His total cell count, has come down but PMN count stays quite elevated. One set of blood cultures also came back positive for gram-positive cocci. Patient has been vomiting with some retching today. 05/23/2017 (Notes per Dr. Aguilar) Patient has a recurrent history of end-stage renal disease. Currently maintained on peritoneal dialysis. She presented to the hospital with peritonitis persistent abdominal pain. His total cell count, has come down but PMN count stays quite elevated. One set of blood cultures also came back positive for coagulase-negative staph, and staph aureus . Patient was started on IV Vanco yesterday by Dr. Mann patient has been getting Vanco in his peritoneal dialysis fluid as well I believe once every 5 days 05/24/2017 Patient was noted to have left sided weakness over the weekend. Neuro was consulted. CT of the brain was completed and was negative for acute process. Patient underwent MRI of the brain which revealed nonspecific white matter changes predominating within the posterior circulation in the parietal and occipital lobes, 2.3cm left middle cranial fossa arachnoid cyst with minimal mass effect on temporal lobe, and 3cm maxillary cyst. The patient has had problems with his PD draining properly. Nephrology is following. The patient will need PD catheter removed to ensure infection completely resolves. In the meantime, Dr. Ramirez was consulted for hemodialysis catheter placement. The patient will require short term HD until infection resolves and then can transition back to PD per nephrology. General surgery has been consulted for removal of PD catheter. Infectious disease is following. Positive for MSSA. Patients blood cultures positive for coagulase negative, which is likely a contaminated specimen. Repeat cultures are negative. 05/25/2017 Patient seen and examined at the bedside. Patient remains very lethargic. He was able to open his eyes and mumble a few words, which she was unable to do yesterday. The patient underwent hemodialysis catheter insertion yesterday and had his first hemodialysis session last night. The patient is scheduled today for removal of peritoneal dialysis catheter with Dr. Adorno. Per nursing, the patient is supposed to undergo hemodialysis again today. His creatinine has improved from 11.3 to 8.92. The patient is unable to take any of his oral medications due to his altered mental status. His blood pressure this morning is elevated at 180/91. He remains on 3 L nasal cannula and maintaining an oxygen saturation greater than 92%. He did have a low-grade fever of 99.1 F axillary this morning. He remains on cefazolin per infectious disease for positive MSSA. Patient originally wanted to return home at the time of discharge. However, due to the patient's current condition, he will likely require ECF placement when he is stable for discharge. This was discussed with social work and case management and consultations were placed to PT and OT for evaluation. 05/26/2017 Patient seen and examined at the bedside. Patient is significantly less lethargic than yesterday. He is communicating well and able to answer questions appropriately. Bilateral hand grasps are strong and equal. Neurology recommends patient to have a repeat CT of the head in one month. Patient is currently undergoing dialysis and tolerating well. Patient currently reeciving cefazolin and will require two more weeks per Dr. Piedra. Spoke with him this morning who states patient will not need a PICC line and can receive 3gram after each dialysis treatment for the next two weeks. PT/OT have been consulted to assess patients mobility and evaluate for possible ECF placement if he is unable to care for himself at home. 05/27/2017 Patient seen and evaluated at the bedside. Patient remains more awake and alert. Patient has undergone dialysis for the last 3 days and tolerated well. He is scheduled for dialysis tomorrow. His creatinine this morning is 5.2. Patients blood pressure has remained elevated. Hydralazine has ordered PRN every 4 hours as needed but nursing has only been administering 1-2 times daily per their MAR documentation. He was able to take his oral antihypertensives yesterday. He takes norvasc at home. He was also started on lisinopril per nephrology. The patient has had no PO intake secondary to lethargy. Spoke with dietary yesterday who asked about NG feeding. Since patient was more awake yesterday, NG was deferred and nursing was asked to feed patient his meals. Nursing states the patient is still not eating and continues to throw up bile. Spoke with case management regarding discharge planning and stated she will speak with patient and family regarding possible ECF placement. Dr. Aguilar spoke to patient yesterday and recommended patient go to subacute rehab for a short time since he has been in bed for a week to build his strength. PT/OT was consulted and has been unable to work with patient due to lethargy and dialysis treatments. Yesterday PT attempted to work with patient but his left knee prosthesis was not in the patients room. Patient had it with him during his admission so family may have taken it home. Nursing was asked to follow up with his family. ADDENDUM 05/27/2017 Consult was placed to salvage repairer for PPN. Patient has had essentially no PO intake since admission due to lethargy, abdominal pain, and N/V. Patient was awake and alert yesterday and received meals for breakfast, lunch, and dinner. Patient unable to eat yesterday secondary to nausea. Patient continues to be nauseous and vomiting today. He is receiving zofran and reglan. abdominal xray is negative for obstruction. Received phone call from Meenakshi Hsu salvage repairer who states "it is inappropriate to start PPN on someone who refuses to eat". Explained to her that patient is not refusing to eat but continues to have emesis and has thrown up 3 times today. Explained to her that I opened a glucerna for the patient to drink and encouraged him to take small sips as tolerated, but the patient needs PPN as supplementation until his emesis resolves since he has been a week without nutrition. Conveyor Belt Installer then explains that it is inappropriate to order PPN for someone for 3 days if he is going to be discharged Wednesday. I explained that his discharge date is not set in stone, but discharge planning has been an ongoing process and that if patient continues to do well and is able to tolerate PO intake, it is a possibility of discharge early next week. Meenakshi recommends NG tube with feeding. Explained to her that I do not want an NG tube placed because the patient is vomiting and we would like PPN started. Dietary has refused to place orders for PPN and continues to recommend NG tube feedings. Discussed this with patients RN, Areli, and updated on plan. 05/28/2017 Patient seen and evaluated at the bedside. Patient is currently undergoing dialysis. His next treatment is scheduled for wednesday. His blood pressure has improved. He states he feels "like hell everywhere". He feels very weak and fatigued. He states his abdominal pain is worse today. He continues to fell nauseous. He remains on zofran, reglan, and scopolamine patches. He had a few sips of glucerna yesterday but that is the extent of his PO intake in a week. He has not been able to tolerate meals secondary to nausea and vomiting. Sometimes he is having dry heaves and other times the patient is having bilious emesis. Per nursing, the patient had 150cc of bile emesis this morning. Abdominal xray completed yesterday was negative for obstruction. Dietary was consulted yesterday to begin PPN but Meenakshi, however dietitian refused. Spoke with nino Lewis this morning and she is agreeable to PPN and will place orders. The patient denies shortness of breath or chest pain. Physical therapy has been following and working with patient. 05/29/[address] Aguilar 05/30/[address] Aguilar 05/31/2017 Patient seen and examined at the bedside on rounds with Dr. Hough. Patient is currently undergoing dialysis at the bedside. He is currently on a Wednesday, Wednesday, and Wednesday schedule. He continues to complain of nausea and vomiting and states his appetite has not really improved over the weekend. The patient remains on PPN. Dialysis nurse at bedside states the patient vomited approximately 150 mL of bile this morning while he was in the room. GI was consulted and recommended EGD due to the possibility of gastroparesis but patient refusing at this time. X-ray was negative for ileus or obstruction. He states his abdominal pain is slowly improving. PT and OT are on consult and have been working with patient. His vital signs remained stable. He is afebrile. Sodium this morning is low at 129. BUN 59 and creatinine 4.73. Discharge planning continues. Patient will require ECF placement when stable for discharge. [facility] did not except patient. Case management social work now looking [facility] [place] or [facility]. Once patient's nausea and vomiting subsides and he is able to tolerate some PO intake he will be stable for discharge. He is also scheduled for vein mapping at Dr. Ndiaye's office on 06/07/2017. Objective - Vital Signs Vital signs: Vital Signs Temp 97.4 F L 05/31/17 07:00 Pulse 87 05/31/17 07:00 Resp 16 05/31/17 07:00 BP 141/78 05/31/17 07:00 Pulse Ox 99 05/31/17 07:00 Intake & Output 05/30/17 05/31/17 05/31/17 18:59 06:59 18:59 Output Total 400 Balance -400 Weight 98.5 kg Output: Urine 400 Other: Voiding Method Urinal # Voids 0 # Bowel Movements 0 0 - Exam GENERAL: This is a 46-year-old male who is awake and alert. Currently undergoing dialysis. Able to answer questions and follow commands. HEENT: Head is atraumatic, normocephalic. Left pupil 2 mm, round, and reactive. Right pupil 3 mm, oval, and reactive. Sclerae anicteric. Conjunctivae are clear. Mucus membranes of the mouth are moist. Neck is supple. Hemodialysis catheter present. RESPIRATORY: Clear to ausculation. No wheezes, rales, or rhonchi. Diminished at the bases. No use of accessory muscles. Patient maintaining oxygen saturation greater than 92% on 2 L nasal cannula. No chest wall tenderness is noted on palpation or with deep breathing. CARDIOVASCULAR: Regular rate and rhythm. S1 and S2 noted. No systolic or diastolic murmur auscultated. No JVD noted. No S3 or S4 noted. GASTROINTESTINAL: Patient continues to have nausea and vomiting bile. Occasional dry heaves. Unable to tolerate PO intake. Pain and tenderness upon palpation, although improved. Abdomen soft and round. Bowel sounds auscultated x 4 quadrants. INTEGUMENTARY: Chronic wound noted to right calf. No cyanosis. No jaundice. No rashes noted. No cellulitis noted. EXTREMITIES: Left below the knee amputation. Right partial foot amputation. trace peripheral edema. No calf tenderness noted. NEUROLOGIC: Cranial nerves II-XII intact. PSYCHIATRIC: Awake and alert and Oriented. Patient appears to have intact judgment and insight. - Labs CBC & Chem 7: 05/30/17 07:52 05/31/17 07:25 Labs: Abnormal Lab Results - Last 24 Hours (Table) 05/30/17 05/30/17 05/30/17 Range/Units 11:49 17:09 20:46 Sodium (137-145) mmol/L BUN (9-20) mg/dL Creatinine (0.66-1.25) mg/dL Glucose (74-99) mg/dL POC Glucose (mg/dL) 156 H 212 H 220 H (75-99) mg/dL Calcium (8.4-10.2) mg/dL 05/31/17 05/31/17 Range/Units 07:25 07:30 Sodium 129 L (137-145) mmol/L BUN 59 H (9-20) mg/dL Creatinine 4.73 H (0.66-1.25) mg/dL Glucose 183 H (74-99) mg/dL POC Glucose (mg/dL) 189 H (75-99) mg/dL Calcium 7.7 L (8.4-10.2) mg/dL Assessment and Plan Plan: ASSESSMENT: Peritonitis, secondary to peritoneal dialysis, cultures positive for MSSA End-stage renal disease, on peritoneal dialysis, temporarily placed on hemodialysis secondary to peritonitis Abdominal pain, nausea, and vomiting secondary to peritonitis, however symptoms are persistent and not improving, abdominal xray negative for obstruction, GI recommends EGD to rule out gastroparesis but patient refusing at this time Moderate calorie protein malnutrition with minimal PO intake x1 week Diabetes mellitus, type II, hemoglobin A1c 9.9% Coronary artery disease with previous myocardial infarction Peripheral vascular disease with history of left BKA and right partial foot amputation Anemia of chronic disease secondary to CKD Acute metabolic encephalopathy, improving Left sided weakness, possible TIA, resolved History of MRSA infection in left lower extremity Hypertension, stable History of seizures PLAN: -GI on consult. Appreciate recommendations and input -Patient currently refusing EGD to rule out gastroparesis -We will order barium swallow with small bowel follow-through per Dr. Hough -Continue PPN until patient is able to tolerate increased PO intake -Encourage glucerna intake as tolerated -Continue antiemetics -Discontinue morphine as pain has imrpoved and may be contributing to patients N /V -Change reglan to scheduled instead of PRN -Nephrology on consult. Appreciate recommendations and input -Patient currently undergoing hemodialysis today. Hemodialysis schedule is Wednesday, Wednesday, and Wednesday -Antibiotic regimen per infectious disease. Currently on cefazolin 2 g IV every 24 hours -Patient will require 2 weeks of cefazolin per ID. No need for PICC, will receive 3gram cefazolin after each dialysis treatment x 2 weeks. -Neurology on consult. Appreciate recommendations and input. -Patient to have repeat brain MRI in one month per neurology recommendations -Monitor labs -Monitor capillary blood glucose Accuchecks before meals and at bedtime. -Continue humalog sliding scale before meals and at bedtime -Continue 10 units Levemir at bedtime -GI prophylaxis: Protonix 40 mg IV daily -DVT prophylaxis: Venodynes to right lower extremity -Monitor vital signs and address as appropriate -Discharge planning: Will require ECF placement. Patient requesting [facility], but they have refused patient. Case management and social work currently looking into [facility] [place] or [facility] [place]. Once patient is able to tolerate PO intake and nausea and vomiting have subsided he will be stable for discharge -PT/OT -Further recommendations pending patient's course Nurse practitioner note has been reviewed by physician. Signing provider agrees with the documented findings, assessment, and plan of care.
[2017-05-31 12:23] LABS: Glucose,Whole Blood 159 mg/dL (75-99)
[2017-05-31 13:20] VITALS: BMI 30.2
[2017-05-31] MEDS: FAT EMULSION 20% 250 ML in EMPTY BAG 1 BAG IV SCH (15:07)
[2017-05-31] MEDS ORDERED: traMADol 50 MG TAB PO PRN (15:11)
[2017-05-31] MEDS ORDERED: PROMETHAZINE INJ 12.5 MG in SODIUM CHLORIDE 0.9% 50 ML IVPB PRN (15:22)
--- NOTE | 2017-05-31 17:12 | PN ---
PROGRESS NOTE DATE OF SERVICE: 05/31/2017. REASON FOR FOLLOWUP: MSSA peritoneal abscess and peritonitis. INTERVAL HISTORY: The patient is afebrile. He is currently breathing comfortably. Denies having any chest pain or shortness of breath. No cough. Abdominal pain improved. Some nausea but no further vomiting and no diarrhea. PHYSICAL EXAMINATION: Blood pressure 141/72 with a pulse of 87, temperature 97.4. He is 99% on 2 L nasal cannula. General description is a middle-aged male lying in bed in no distress. Respiratory system unlabored breathing, clear to auscultation anteriorly. Heart S1, S2 regular rate and rhythm. Abdomen soft. No tenderness. LABS: BUN 59, creatinine 4.3. DIAGNOSTIC IMPRESSION AND PLAN: Patient with Methicillin-sensitive Staphylococcus aureus peritoneal dialysis catheter suspect peritonitis. The patient is status post removal of the dialysis catheter. The patient currently on hemodialysis. Will continue with cefazolin that will switch to 3 g post dialysis for another 10 days for finish course of therapy. Continue supportive care. MMODL / IJN: [id number] /
[2017-05-31] MEDS: 1: MVI, ADULT NO.4 WITH VIT K 10 ML, TRACE (CONC-1ML/DOSE) 1 ML, PARENTERAL ELECTROLYTES IV SCH ×6 (17:25)
[2017-05-31] MEDS: TAMSULOSIN 0.4 MG CAP.ER.24H PO SCH (17:25)
[2017-05-31] MEDS: METOCLOPRAMIDE 5 MG/ML 2 ML VIAL IVP SCH (17:29)
[2017-05-31 17:32] LABS: Glucose,Whole Blood 182 mg/dL (75-99)
[2017-05-31] MEDS: ceFAZolin IN SWFI 2 GM/20 ML SYRINGE IVP SCH (17:52)
[2017-05-31 21:08] LABS: Glucose,Whole Blood 218 mg/dL (75-99)
[2017-05-31] MEDS: INSULIN DETEMIR 100 UNIT/ML 10 ML VIAL SQ SCH (21:17)
[2017-06-01] MEDS: ATORVASTATIN 80 MG TAB PO SCH (00:21)
[2017-06-01] MEDS: SODIUM BICARBONATE TAB 650 MG TAB PO SCH ×2 (00:21→11:01)
[2017-06-01] MEDS: METOCLOPRAMIDE 5 MG/ML 2 ML VIAL IVP SCH ×3 (00:22→11:19)
[2017-06-01] MEDS: VALPROATE SODIUM 750 MG in SODIUM CHLORIDE 0.9% 50 ML IVPB SCH ×2 (00:22→08:38)
[2017-06-01] MEDS: GABAPENTIN 300 MG CAP PO SCH ×2 (01:32→11:01)
[2017-06-01] MEDS: 1: MVI, ADULT NO.4 WITH VIT K 10 ML, TRACE (CONC-1ML/DOSE) 1 ML, PARENTERAL ELECTROLYTES IV SCH ×12 (04:13→11:02)
[2017-06-01 07:27] VITALS: BP 167/91; PULSE 100; RESP 22; TEMP 97.9
[2017-06-01 07:29] LABS: Glucose,Whole Blood 213 mg/dL (75-99)
[2017-06-01] MEDS ORDERED: PANTOPRAZOLE 40 MG TABLET PO SCH (07:30)
[2017-06-01 08:17] LABS: Basophils # (A) 0.1 k/uL (0-0.2); Basophils % (A) 0 %; CH 28.3; CHCM 32.8; Eosinophils # (A) 0.3 k/uL (0-0.7); Eosinophils % (A) 3 %; HCT 30.6 % (39.0-53.0); HDW 3.69; HGB 9.8 gm/dL (13.0-17.5); Hypochromasia Slight; Luc # (Auto) 0.26; Luc % (Auto) 2; Lymphocytes % (A) 8 %; MCH 27.7 pg (25.0-35.0); MCHC 32.2 g/dL (31.0-37.0); MCV 86.1 fL (80.0-100.0); Mean Platelet Volume 7.1; Monocytes # (A) 0.7 k/uL (0-1.0); Monocytes % (A) 6 %; Neutrophils # (A) 9.5 k/uL (1.3-7.7); Neutrophils % (A) 80 %; Poikilocytosis Slight; RBC 3.55 m/uL (4.30-5.90); WBC 11.8 k/uL (3.8-10.6)
[2017-06-01] MEDS: CALCIUM ACETATE 667 MG CAP PO SCH ×2 (08:37→11:16)
[2017-06-01] MEDS: SEVELAMER 800 MG TAB PO SCH ×2 (08:37→11:16)
[2017-06-01] MEDS: INSULIN ASPART 100 UNIT/ML 1 ML 10 ML VIAL SQ SCH ×2 (08:37→11:16)
[2017-06-01 08:39] LABS: Calcium 8.1 mg/dL (8.4-10.2); Magnesium 2.1 mg/dL (1.6-2.3); Phosphorus 3.6 mg/dL (2.5-4.5); Potassium 4.9 mmol/L (3.5-5.1)
[2017-06-01] MEDS: ONDANSETRON 4 MG/2 ML VIAL IVP PRN (09:42)
[2017-06-01] MEDS: levETIRAcetam IV 750 MG in SODIUM CHLORIDE 0.9% 100 ML IVPB SCH (09:45)
--- NOTE | 2017-06-01 10:40 | P.PN ---
Subjective Patient is seen in follow-up for end-stage renal disease. Patient was maintained on peritoneal dialysis and presented with abdominal pain along with a cloudy dialysate. He was noted to have refractory peritonitis with fluid culture positive for staph aureus. He also had blood culture that was positive for staph capitis. He is currently maintained on IV Kefzol. Peritoneal dialysis catheter has been removed. Patient states abdominal pain as well as nausea and dry heaving has improved. He is now maintained on hemodialysis on a Wednesday schedule. He is also receiving PPN. Vital signs are stable. General: The patient appeared well nourished and normally developed. HEENT: Head exam is unremarkable. Neck is without jugular venous distension. LUNGS: Lungs are clear to auscultation and percussion. Breath sounds decreased. HEART: Rate and Rhythm are regular. First and second heart sounds normal. No murmurs, rubs or gallops. ABDOMEN: Abdominal exam reveals normal bowel sounds. Generalized tenderness. EXTREMITITES: No clubbing, cyanosis, or edema. Left BKA noted. Objective - Vital Signs Vital signs: Vital Signs Temp 97.9 F 06/01/17 07:00 Pulse 100 06/01/17 07:00 Resp 22 06/01/17 07:00 BP 167/91 06/01/17 07:00 Pulse Ox 92 L 06/01/17 07:00 Intake & Output 05/31/17 06/01/17 06/01/17 18:59 06:59 18:59 Intake Total 0 Output Total 250 50 Balance -250 -50 Weight 98.5 kg 98.5 kg Intake: Oral 0 Output: Urine 50 Emesis 250 Other: Voiding Method Urinal Urinal # Voids 1 - Labs CBC & Chem 7: 06/01/17 07:59 06/01/17 07:59 Labs: Abnormal Lab Results - Last 24 Hours (Table) 05/31/17 05/31/17 05/31/17 Range/Units 12:13 17:29 21:05 WBC (3.8-10.6) k/uL RBC (4.30-5.90) m/uL Hgb (13.0-17.5) gm/dL Hct (39.0-53.0) % Neutrophils # (1.3-7.7) k/uL Sodium (137-145) mmol/L Carbon Dioxide (22-30) mmol/L BUN (9-20) mg/dL Creatinine (0.66-1.25) mg/dL Glucose (74-99) mg/dL POC Glucose (mg/dL) 159 H 182 H 218 H (75-99) mg/dL Calcium (8.4-10.2) mg/dL 06/01/17 06/01/17 06/01/17 Range/Units 07:15 07:59 07:59 WBC 11.8 H (3.8-10.6) k/uL RBC 3.55 L (4.30-5.90) m/uL Hgb 9.8 L (13.0-17.5) gm/dL Hct 30.6 L (39.0-53.0) % Neutrophils # 9.5 H (1.3-7.7) k/uL Sodium 128 L (137-145) mmol/L Carbon Dioxide 20 L (22-30) mmol/L BUN 59 H (9-20) mg/dL Creatinine 4.96 H (0.66-1.25) mg/dL Glucose 209 H (74-99) mg/dL POC Glucose (mg/dL) 213 H (75-99) mg/dL Calcium 8.1 L (8.4-10.2) mg/dL Assessment and Plan Plan: Assessment: #1. End-stage renal disease now maintained on hemodialysis. #2. CAPD associated peritonitis status post peritoneal dialysis catheter removal. #3. Staph capitis bacteremia. #4. Insulin-dependent diabetes mellitus. #5. Chronic kidney disease mineral bone disease maintained on Renvela and PhosLo. #6. Hypertension with chronic kidney disease. Controlled. Partially related to pain and nausea. Dose of lisinopril was increased on May 27. #7. Metabolic acidosis secondary to chronic kidney disease. #8. History of seizures intake and on Keppra and Depakote. #9. Hyponatremia related to poor solute intake and PPN. Plan: Hemodialysis tomorrow. Continue with pain control and antiemetics. Maintain hydralazine as needed for systolic blood pressure greater than 160. Maintain oral sodium bicarbonate 650 mg twice daily. Expect further improvement with dialysis. Antibiotics per infectious disease recommendations.
--- NOTE | 2017-06-01 10:50 | P.DS ---
Providers Date of admission: 05/20/17 22:39 Expected date of discharge: 06/01/17 Attending physician: Kong Hough Consults: 05/20/17 23:00 Consult Physician Stat Consulting Provider: Yung Mann Consult Reason/Comments: Peritonitis with Dialysis, Chronic Renal Failure, Do you want consulting provider notified?: Yes, Notify in am 05/21/17 13:07 Consult Physician Routine Consulting Provider: Jacinta Piedra Consult Reason/Comments: Peritonitis, right leg wound Do you want consulting provider notified?: Yes 05/23/17 12:16 Consult Physician Urgent Consulting Provider: Arnold Garvin Consult Reason/Comments: Mental status change, diminished movement of the left side Do you want consulting provider notified?: Yes 05/23/17 12:24 Consult Physician Routine Consulting Provider: Juan Adorno Consult Reason/Comments: regarding peritoneal dialysis port - dialysis not infusing or outflowing Do you want consulting provider notified?: Yes 05/23/17 20:41 Consult Physician Stat Consulting Provider: Nico Ndiaye Consult Reason/Comments: HEMODIALYSIS PORT Do you want consulting provider notified?: Yes 05/28/17 11:22 Consult Physician Routine Consulting Provider: Lucinda Dodson Consult Reason/Comments: nausea/vomiting/abdominal pain Do you want consulting provider notified?: Yes Primary care physician: [facility] Course: 46-year-old male who presented to the emergency room on 05/20/2017 with a chief complaint of abdominal pain and cloudy peritoneal fluid. The patient states he has had abdominal pain that has persisted for two days. He also complained of intermittent nausea and vomiting. He states that he noticed his peritoneal fluid was becoming cloudy as well. The patient has a history of end-stage renal disease. He states he has been on peritoneal dialysis for 2-1/2 years. He states prior to that he did hemodialysis for 8 months but he did not tolerate and had multiple side effects and was then transitioned to peritoneal dialysis. He also has history of coronary artery disease, diabetes mellitus, DVT, gastro-esophageal reflux disease, hypertension, hyperlipidemia, myocardial infarction, and peripheral vascular disease with a left [id number] mutation and a right foot partial amputation. He states he has a wound to his right calf that is not healing. He also has a history of MRSA in 2015 in his blood and left foot. In the emergency room, a chest x-ray was completed which showed bilateral infiltrates. KUB was completed which showed small pneumoperitoneum which was thought to be related to dialysis port. Peritoneal fluid was sent for culture. Sodium on admission was 139, potassium 3.4, BUN 53, creatinine 12.04, WBCs 11.4, hemoglobin 12.7, platelets 176. Troponin was negative 1. Lactic acid on admission was 1.3 It was also noted that while the patient was in the emergency room he received IV pain medication and became unresponsive and apneic and it was difficult to feel a pulse. ER staff started CPR and the patient was revived. The patient also received Narcan. After CPR, there was thoughts of possible rib fractures. Chest xray was completed which was negative for rib fractures. IV pain medication has since been discontinued. The patient was admitted to the hospital under the care of Dr. Aguilar. Consultations were placed to nephrology. During his hospitalization, the patients PD catheter was removed. His cultures were positive for MSSA. The patient had a hemodialysis catheter placed to right chest wall. He has been undergoing hemodialysis. He is scheduled for HD mondays , wednesdays, and fridays. Infectious disease has been following the patient during hospitalization. He is to receive cefazolin 3grams wednesday and fridays with dialysis for 2 weeks per ID. The patient was found to have some left side weakness during hospitalization and there was possibility of a TIA. Neurology was consulted. CT of the brain and MRI of the brain negative for acute stroke. The patient is to have a repeat MRI in 1 month per neurology's recommendations. His left-sided weakness has resolved. The patient experienced nausea and vomiting during hospitalization. Abdominal xray was negative for ileus or obstruction. GI was consulted and recommended EGD to rule out gastroparesis but patient refusing at this time. He was started on PPN for nutrition until his nausea and vomiting improved. Patient still complains of some nausea but states his abdominal pain has improved and he denies vomiting. He states his appetite is improving. Dr. Hough states the patient is stable for discharge today to [facility] and encouraged to take small bites of food and go slow until he is able to tolerate larger amounts of PO intake. DISCHARGE DIAGNOSIS: Peritonitis, secondary to peritoneal dialysis, cultures positive for MSSA End-stage renal disease, on peritoneal dialysis, temporarily placed on hemodialysis secondary to peritonitis Abdominal pain, nausea, and vomiting secondary to peritonitis, abdominal xray negative for obstruction, GI recommends EGD to rule out gastroparesis but patient refusing at this time, symptoms are improving at time of discharge per patient Moderate calorie protein malnutrition with minimal PO intake x1 week Diabetes mellitus, type II, hemoglobin A1c 9.9% Coronary artery disease with previous myocardial infarction Peripheral vascular disease with 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 Signing provider agrees with the documented findings, assessment, and plan of care. Patient Condition at Discharge: Fair Plan - Discharge Summary Discharge Rx Participant: Yes New Discharge Prescriptions: New ceFAZolin [Kefzol] 3 gm IVPB DAILY #6 dose Lisinopril [Zestril] 20 mg PO DAILY #30 tab Pantoprazole [Protonix] 40 mg PO AC-BRKFST #30 tablet. Scopolamine 1.5MG/72Hr Patch [TransDerm Scop] 1 patch TRANSDERM Q72H PRN #5 patch PRN Reason: Nausea Sodium Bicarbonate Tab 650 mg PO BID #30 tab traMADol HCl [Ultram] 50 mg PO Q8H PRN #90 tab PRN Reason: Pain Valproic Acid 750 mg PO Q8H #180 capsule levETIRAcetam [Keppra] 750 mg PO BID #60 tab Ondansetron [Zofran] 4 mg PO Q8HR PRN #30 tab PRN Reason: Nausea Continue Insulin Glargine [Lantus] 10 unit SQ HS Atorvastatin [Lipitor] 80 mg PO HS Calcium Acetate [PhosLo] 667 mg PO TID-W/MEALS Gabapentin [Neurontin] 300 mg PO TID Levothyroxine Sodium [Synthroid] 25 mcg PO DAILY Insulin Aspart [NovoLOG (formulary)] See Protocol SQ AC-TID Sevelamer [Renvela] 1,600 mg PO AC-TID Famotidine [Pepcid] 20 mg PO BID acetaZOLAMIDE [Diamox] 125 mg PO BID Amiodarone [Cordarone] 200 mg PO BID amLODIPine [Norvasc] 10 mg PO DAILY Dilcia Jordan 1 tab PO DAILY Tamsulosin [Flomax] 0.8 mg PO PC-SUPPER Thiamine [Vitamin B-1] 100 mg PO DAILY Discontinued levETIRAcetam [Keppra] 750 mg PO Q12HR Divalproex Sodium [Depakote] 500 mg PO TID Sildenafil Citrate [Viagra] 100 mg PO ONCE PRN PRN Reason: E.D. Discharge Medication List Atorvastatin [Lipitor] 80 mg PO HS 04/08/15 [History] Calcium Acetate [PhosLo] 667 mg PO TID-W/MEALS 04/08/15 [History] Gabapentin [Neurontin] 300 mg PO TID 04/08/15 [History] Insulin Glargine [Lantus] 10 unit SQ HS 04/08/15 [History] Levothyroxine Sodium [Synthroid] 25 mcg PO DAILY 04/08/15 [History] Insulin Aspart [NovoLOG (formulary)] See Protocol SQ AC-TID 05/21/15 [History] Famotidine [Pepcid] 20 mg PO BID 01/20/16 [History] Sevelamer [Renvela] 1,600 mg PO AC-TID 01/20/16 [History] Amiodarone [Cordarone] 200 mg PO BID 05/20/17 [History] Dilcia Jordan 1 tab PO DAILY 05/20/17 [History] Tamsulosin [Flomax] 0.8 mg PO PC-SUPPER 05/20/17 [History] Thiamine [Vitamin B-1] 100 mg PO DAILY 05/20/17 [History] acetaZOLAMIDE [Diamox] 125 mg PO BID 05/20/17 [History] amLODIPine [Norvasc] 10 mg PO DAILY 05/20/17 [History] Lisinopril [Zestril] 20 mg PO DAILY #30 tab 06/01/17 [Rx] Ondansetron [Zofran] 4 mg PO Q8HR PRN #30 tab 06/01/17 [Rx] Pantoprazole [Protonix] 40 mg PO AC-BRKFST #30 tablet. 06/01/17 [Rx] Scopolamine 1.5MG/72Hr Patch [TransDerm Scop] 1 patch TRANSDERM Q72H PRN #5 patch 06/01/17 [Rx] Sodium Bicarbonate Tab 650 mg PO BID #30 tab 06/01/17 [Rx] Valproic Acid 750 mg PO Q8H #180 capsule 06/01/17 [Rx] ceFAZolin [Kefzol] 3 gm IVPB DAILY #6 dose 06/01/17 [Rx] levETIRAcetam [Keppra] 750 mg PO BID #60 tab 06/01/17 [Rx] traMADol HCl [Ultram] 50 mg PO Q8H PRN #90 tab 06/01/17 [Rx] Follow up Appointment(s)/Referral(s): Scott Aguilar Jr, DO [Primary Care Provider] - 1 Week (1 week after discharge from ECF) Nico Ndiaye MD [STAFF PHYSICIAN] - 06/07/17 9:30 am (Vein mapping appointment.) Jacinta Piedra MD [STAFF PHYSICIAN] - 1 Week Ambulatory/Diagnostic Orders: Comprehensive Metabolic Panel [LAB.AMB] Time Frame: 1 Week, Location: Determined By Patient Activity/Diet/Wound Care/Special Instructions: Hemodialysis at [facility] - Schedule - Wednesday, Wednesday, Wednesday @11: 45 - report at 11:30 on day of first treatment. PROFESSOR OF ASTRONOMY PLEASE CALL [phone] AT [place] TO LET THEM KNOW. Renal diet, diabetic diet Patient to eat small frequent meals if possible to avoid nausea and vomiting Discharge Disposition: TRANSFER TO SNF/ECF
[2017-06-01] MEDS: THIAMINE 100 MG TAB PO SCH (11:01)
[2017-06-01] MEDS: AMIODARONE 200 MG TAB PO SCH (11:01)
[2017-06-01] MEDS: LISINOPRIL 20 MG TAB PO SCH (11:01)
[2017-06-01] MEDS: LEVOTHYROXINE 25 MCG TAB PO SCH (11:01)
[2017-06-01] MEDS: amLODIPine 10 MG TAB PO SCH (11:01)
--- NOTE | 2017-06-01 11:31 | PN ---
PROGRESS NOTE DATE OF SERVICE: 06/01/2017 REASON FOR FOLLOWUP: MSSA peritoneal dialysis peritonitis INTERVAL HISTORY: The patient is afebrile. Has been breathing comfortably. His abdominal pain has improved. Some nausea but no further vomiting. Denies any chest pain or shortness of breath. No cough. PHYSICAL EXAMINATION: On examination, blood pressure is 167/91 with a pulse of 100, temperature 97.9. He is 92% on room air. General description is middle-aged male lying in bed in no distress. RESPIRATORY SYSTEM: Unlabored breathing, clear to auscultation anteriorly. HEART: S1, S2. Regular rate and rhythm. ABDOMEN: Soft, no tenderness. LABS: Hemoglobin is 9.8, white count 11.8 with a BUN 59 and creatinine 4.96. DIAGNOSTIC IMPRESSION AND PLAN: Patient with MSSA peritoneal dialysis peritonitis for which the patient is currently on cefazolin. Will continue patient on cefazolin 3 grams post dialysis for another week to 10 days to finish a course of therapy. Continue supportive care. MMODL / IJN: [id number] /
== END 2017-06-01 13:23 | DRG 981 ==
LOC: EC 19:20 → 5MS5E 22:39 → 6ICU 05-21 00:07 → 6SEL 05-21 19:59 → 4MS4W 05-27 12:05
PROVIDERS: ADMIT Family Medicine; ATTEND Family Medicine
PROC: 5A12012 Performance of Cardiac Output, Single, Manual (ICD-10-PCS; 2017-05-20)
PROC: B519ZZA Fluoroscopy of Inferior Vena Cava, Guidance (ICD-10-PCS; 2017-05-24)
PROC: 3E1M39Z Irrigation of Peritoneal Cavity using Dialysate, Percutaneous Approach (ICD-10-PCS; 2017-05-24 12:15)
PROC: 06H033Z Insertion of Infusion Device into Inferior Vena Cava, Percutaneous Approach (ICD-10-PCS; 2017-05-24 12:15)
PROC: 0WPG03Z Removal of Infusion Device from Peritoneal Cavity, Open Approach (ICD-10-PCS; principal; 2017-05-25 08:15)
DX: T85.71XA Infection and inflammatory reaction due to peritoneal dialysis catheter, initial encounter (principal); A41.01 Sepsis due to Methicillin susceptible Staphylococcus aureus; K65.0 Generalized (acute) peritonitis; G93.41 Metabolic encephalopathy; N18.6 End stage renal disease; E44.0 Moderate protein-calorie malnutrition; I12.0 Hypertensive chronic kidney disease with stage 5 chronic kidney disease or end stage renal disease; E87.2 Acidosis; E87.1 Hypo-osmolality and hyponatremia; G45.9 Transient cerebral ischemic attack, unspecified; K31.84 Gastroparesis; K66.8 Other specified disorders of peritoneum; E11.43 Type 2 diabetes mellitus with diabetic autonomic (poly)neuropathy; E11.22 Type 2 diabetes mellitus with diabetic chronic kidney disease; E11.42 Type 2 diabetes mellitus with diabetic polyneuropathy; R06.81 Apnea, not elsewhere classified; S81.801A Unspecified open wound, right lower leg, initial encounter; B95.61 Methicillin susceptible Staphylococcus aureus infection as the cause of diseases classified elsewhere; D63.1 Anemia in chronic kidney disease; E11.51 Type 2 diabetes mellitus with diabetic peripheral angiopathy without gangrene; E78.5 Hyperlipidemia, unspecified; F17.200 Nicotine dependence, unspecified, uncomplicated; G40.909 Epilepsy, unspecified, not intractable, without status epilepticus; G93.0 Cerebral cysts; I25.10 Atherosclerotic heart disease of native coronary artery without angina pectoris; I25.2 Old myocardial infarction; J32.9 Chronic sinusitis, unspecified; K21.9 Gastro-esophageal reflux disease without esophagitis; M89.9 Disorder of bone, unspecified; T40.605A Adverse effect of unspecified narcotics, initial encounter; Z68.30 Body mass index [BMI] 30.0-30.9, adult; Z79.4 Long term (current) use of insulin; Z79.899 Other long term (current) drug therapy; Z86.14 Personal history of Methicillin resistant Staphylococcus aureus infection; Z89.511 Acquired absence of right leg below knee; Z89.512 Acquired absence of left leg below knee; Z99.2 Dependence on renal dialysis; Y92.239 Unspecified place in hospital as the place of occurrence of the external cause; Y84.1 Kidney dialysis as the cause of abnormal reaction of the patient, or of later complication, without mention of misadventure at the time of the procedure
CPT/HCPCS: 36415; 36558; 70450; 70551; 71010; 71020; 74000; 76937; 77001; 80048; 80053; 80164; 80177; 80202; 81001; 82040; 82150; 82330; 82945; 83036; 83605; 83615; 83690; 83735; 84100; 84157; 84478; 84484; 85025; 85027; 86705; 86706; 87040; 87070; 87077; 87186; 87205; 87324; 87340; 89050; 90935; 92950; 93005; 94760; 95816; 96361; 96374; 96375; 96376; 99285

== ENCOUNTER → 2017-06-29 | Outpatient (CLI) | payer MEDICARE, BC, OTHER ==
--- NOTE | 2017-06-30 07:34 | ECHOF ---
Referral Reason:Z01.811 Pre-OP clearence MEASUREMENTS -------- HEIGHT: 177.8 cm WEIGHT: 88.5 kg BP: IVSd: 1.3 cm (0.6 - 1.1) LVIDd: 4.3 cm (3.9 - 5.3) LVPWd: 1.3 cm (0.6 - 1.1) IVSs: 1.5 cm LVIDs: 2.3 cm LVPWs: 1.5 cm LAESV Index (A-L): 30.86 ml/m Ao Diam: 3.2 cm (2.0 - 3.7) AV Cusp: 2.1 cm (1.5 - 2.6) LA Diam: 4.3 cm (2.7 - 3.8) EPSS: 0.8 cm MV E Lino: 0.95 m/s MV DecT: 234 ms MV A Lino: 0.88 m/s MV E/A Ratio: 1.08 RAP: 5.00 mmHg RVSP: 29.25 mmHg MV EF SLOPE: 169.59 mm/s (70 - 150) MV EXCURSION: 2.36 cm (> 18.000) FINDINGS -------- Sinus rhythm. This was a technically adequate study. Test performed in upright position. The left ventricular size is normal. There is mild concentric left ventricular hypertrophy. Overa ll left ventricular systolic function is normal with, an EF between 55 - 60 %. The right ventricle is normal in size and function. LA is midly dilated 29-33ml/m2. The right atrium is normal in size. Aortic valve is trileaflet and is mildly thickened. There is no evidence of aortic regurgitation. There is no evidence of aortic stenosis. The mitral valve leaflets are mildly thickened. There is trace mitral regurgitation. Trace tricuspid regurgitation present. Right ventricular systolic pressure is normal at < 35 mmHg. There is no evidence of pulmonary hypertension. Trace/mild (physiologic) pulmonic regurgitation. The aortic root size is normal. IVC Not well visulized. There is a small, generalized pericardial effusion present. CONCLUSIONS -------- 1. Sinus rhythm. 2. This was a technically adequate study. 3. Test performed in upright position. 4. The left ventricular size is normal. 5. There is mild concentric left ventricular hypertrophy. 6. Overall left ventricular systolic function is normal with, an EF between 55 - 60 %. 7. LA is midly dilated 29-33ml/m2. 8. Aortic valve is trileaflet and is mildly thickened. 9. The mitral valve leaflets are mildly thickened. 10. There is trace mitral regurgitation. 11. Trace tricuspid regurgitation present. 12. Right ventricular systolic pressure is normal at < 35 mmHg. 13. There is no evidence of pulmonary hypertension. 14. Trace/mild (physiologic) pulmonic regurgitation. 15. The aortic root size is normal. 16. IVC Not well visulized. 17. There is a small, generalized pericardial effusion present. DE ICER ELEMENT WINDER: William Conrad RDCS
== END | disposition home or self-care (01) ==
LOC: RADECHMAIN 14:59
PROVIDERS: ATTEND Surgery Vascular Surgery
DX: I08.0 Rheumatic disorders of both mitral and aortic valves (principal)
CPT/HCPCS: 93306

== ENCOUNTER 2017-07-07 18:23 | Inpatient (IN) | payer MEDICARE, BC ==
[2017-07-07] MEDS ORDERED: SODIUM CHLORIDE 0.9% 500 ML IV STA (21:52)
--- NOTE | 2017-07-07 21:56 | ED ---
General Adult HPI - General Source: patient Mode of arrival: ambulatory Limitations: no limitations <Lexy Ruano - Last Filed: 07/08/17 02:04> <Maxwell Navarro - Last Filed: 07/09/17 18:58> - General Chief complaint: Recheck/Abnormal Lab/Rx Stated complaint: anemia problem Time Seen by Provider: 07/07/17 21:26 - History of Present Illness Initial comments: 46-year-old male patient with past medical history significant for diabetes mellitus, end-stage renal disease, and chronic anemia presents to the emergency department today for complaints of generalized weakness. Patient states over the last 3 days he has been feeling very weak, uncoordinated, dizzy, and just generally unwell. He states that he has had 2 blood transfusions in the past 2 weeks for low hemoglobin counts. Patient states that he generally feels this way when his blood counts become low and he needs a blood transfusion. He states that his blood sugars have been controlled. He states that he was nauseated yesterday and did vomit one time. Denies any further vomiting. Denies any constipation or diarrhea. Patient denies any recent rash, fever, chills, shortness breath, chest pain, abdominal pain, back pain, numbness, tingling, hematuria, dysuria, urinary urgency, urinary frequency, headache, visual changes, or any other complaints. He is being treated for a chronic wound on the right foot by Dr. Sy with infectious disease. (Lexy Ruano) - Related Data Home Medications Medication Instructions Recorded Confirmed Atorvastatin [Lipitor] 80 mg PO HS 04/08/15 07/08/17 Calcium Acetate [PhosLo] 667 mg PO TID-W/MEALS 04/08/15 07/08/17 Insulin Glargine [Lantus] 12 unit SQ HS 04/08/15 07/08/17 Levothyroxine Sodium [Synthroid] 25 mcg PO DAILY 04/08/15 07/08/17 Sevelamer [Renvela] 800 mg PO AC-TID 01/20/16 07/08/17 Amiodarone [Cordarone] 200 mg PO BID 05/20/17 07/08/17 Dilcia Jordan 1 tab PO TID 05/20/17 07/08/17 Tamsulosin [Flomax] 0.4 mg PO PC-SUPPER 05/20/17 07/08/17 Thiamine [Vitamin B-1] 100 mg PO DAILY 05/20/17 07/08/17 amLODIPine [Norvasc] 10 mg PO DAILY 05/20/17 07/08/17 Divalproex [Depakote] 250 mg PO TID@0800,1200,1800 06/10/17 07/08/17 Insulin Lispro [humaLOG Kwikpen] See Protocol SQ AC-TID 07/08/17 07/08/17 Previous Rx's Medication Instructions Recorded levETIRAcetam [Keppra] 750 mg PO BID #60 tab 06/01/17 Doxycycline Hyclate 100 mg PO BID #28 tab 07/06/17 Allergies Allergy/AdvReac Type Severity Reaction Status Date / Time No Known Allergies Allergy Verified 07/08/17 09:58 Review of Systems ROS Other: All systems not noted in ROS Statement are negative. <Lexy Ruano - Last Filed: 07/08/17 02:04> ROS Other: All systems not noted in ROS Statement are negative. <Maxwell Navarro - Last Filed: 07/09/17 18:58> ROS Statement: Those systems with pertinent positive or pertinent negative responses have been documented in the HPI. Past Medical History Past Medical History: Coronary Artery Disease (CAD), Diabetes Mellitus, Dialysis , Deep Vein Thrombosis (DVT), GERD/Reflux, Hyperlipidemia, Hypertension, Myocardial Infarction (AL), Musculoskeletal Disorder, Renal Disease, Seizure Disorder Additional Past Medical History / Comment(s): Diabetic gastroparesis, End stage renal disease currently on peritoneal dialysis , peripheral neuropathy, seizure disorder, compression fracture of the vertebral along with known history of this disease, blood clot from IV line in the upper extremity on the left, coronary artery disease, previous myocardial infarction, insulin- dependent diabetes mellitus, GE reflux, gastritis, chronic anemia, cataracts, currently on peritoneal dialysis, peripheral vascular disease with previous amputation involving a below-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, GEORGE CATARACTS,VITRECTOMY,GEORGE RETINAL SX Past Anesthesia/Blood Transfusion Reactions: No Reported Reaction Additional Past Anesthesia/Blood Transfusion Reaction / Comment(s): VERTIGO Past Psychological History: No Psychological Hx Reported Smoking Status: Never smoker Past Alcohol Use History: None Reported Past Drug Use History: None Reported - Past Family History Father Family Medical History: Cancer Additional Family Medical History / Comment(s): CANCER FROM [employer] Mother History Unknown: Yes Family Medical History: Cancer, Supraventricular Tachycardia (SVT) Additional Family Medical History / Comment(s): LUNG CANCER(SMOKER) <Lexy Ruano M - Last Filed: 07/08/17 02:04> General Exam Limitations: no limitations General appearance: alert, in no apparent distress, other (This is a well- developed, ill-appearing adult male patient in no acute distress. Vital signs upon presentation are temperature 97.9F, pulse 83, respirations 20, blood pressure 174/85, pulse ox 100% on room air.) Eye exam: Present: normal appearance, EOMI. Absent: PERRL (Right pupil is irregular in shape, nonreactive. Left pupil is 2 mm, reactive.), scleral icterus, conjunctival injection, periorbital swelling ENT exam: Present: normal exam, normal oropharynx, mucous membranes moist, TM's normal bilaterally Neck exam: Present: normal inspection. Absent: tenderness, meningismus, lymphadenopathy Respiratory exam: Present: normal lung sounds bilaterally. Absent: respiratory distress, wheezes, rales, rhonchi, stridor Cardiovascular Exam: Present: regular rate, normal rhythm, normal heart sounds. Absent: systolic murmur, diastolic murmur, rubs, gallop, clicks GI/Abdominal exam: Present: soft, normal bowel sounds. Absent: distended, tenderness, guarding, rebound, rigid Neurological exam: Present: alert, oriented X3, CN II-XII intact Psychiatric exam: Present: normal affect, normal mood Skin exam: Present: warm, dry, intact, pallor. Absent: normal color, rash <Lexy Ruano M - Last Filed: 07/08/17 02:04> Vital Signs 07/07/17 07/07/17 07/08/17 19:45 22:13 00:08 Temperature 97.9 F 97.9 F 98.3 F Pulse Rate 83 77 72 Respiratory 20 18 18 Rate Blood Pressure 174/85 178/77 160/83 O2 Sat by Pulse 100 96 99 Oximetry 07/08/17 07/08/17 07/08/17 01:32 03:32 05:36 Temperature Pulse Rate 78 70 67 Respiratory 18 16 16 Rate Blood Pressure 155/84 156/75 162/83 O2 Sat by Pulse 96 98 93 L Oximetry EKG Findings - EKG Comments: EKG Findings:: EKG obtained at 2222 shows normal sinus rhythm with a nonspecific T-wave Abnormality. Prolonged QT interval. Ventricular rate is 72 bpm, RI interval 182, QRS duration 106, QT 476, QTc 521. <Lexy Ruano - Last Filed: 07/08/17 02:04> Medical Decision Making - Lab Data Result diagrams: 07/07/17 22:09 07/07/17 22:09 - Radiology Data Radiology results: report reviewed, image reviewed <Lexy Ruano - Last Filed: 07/08/17 02:04> - Lab Data Result diagrams: 07/09/17 06:46 07/09/17 06:46 <Maxwell Navarro - Last Filed: 07/09/17 18:58> - Medical Decision Making 46 year old male patient presented to the emergency Department with complaints of weakness and nausea. He reported feeling generally unwell. Patient does have a history of diabetes mellitus, chronic end-stage renal disease, and chronic anemia. Labs are performed and did reveal a hemoglobin of 8.4 which is improved from previous levels this month. Creatinine is 4.7, GFR is 14, CK-MB is 4.5. Urinalysis did show a pH of 8.5, 4+ protein, 3+ glucose, trace blood, 11 red blood cells, rare bacteria, 11 hyaline casts, and few mucus. Overall findings are unremarkable however patient is not feeling any better. He did start vomiting. We will keep him in the hospital for observation. My attending Dr. Navarro did speak to Dr. Hough on-call for Dr. Aguilar. He accepts patient. Will be given antiemetics as necessary. (Lexy Ruano) I saw this patient in conjunction with the physician assistant professor of philosophy. I performed independent history and physical exam. Agree with case management. (Maxwell Navarro) - Lab Data Lab Results 07/07/17 07/07/17 07/07/17 Range/Units 22:08 22:09 22:09 WBC 7.5 (3.8-10.6) k/uL RBC 2.92 L (4.30-5.90) m/uL Hgb 8.4 L (13.0-17.5) gm/dL Hct 26.7 L (39.0-53.0) % MCV 91.5 (80.0-100.0) fL MCH 28.7 (25.0-35.0) pg MCHC 31.4 (31.0-37.0) g/dL RDW 18.2 H (11.5-15.5) % Plt Count 214 (150-450) k/uL Neutrophils % 67 % Lymphocytes % 16 % Monocytes % 11 % Eosinophils % 4 % Basophils % 1 % Neutrophils # 5.0 (1.3-7.7) k/uL Lymphocytes # 1.2 (1.0-4.8) k/uL Monocytes # 0.8 (0-1.0) k/uL Eosinophils # 0.3 (0-0.7) k/uL Basophils # 0.0 (0-0.2) k/uL Anisocytosis Slight PT (9.0-12.0) sec INR (<1.2) APTT (22.0-30.0) sec Sodium (137-145) mmol/L Potassium (3.5-5.1) mmol/L Chloride (98-107) mmol/L Carbon Dioxide (22-30) mmol/L Anion Gap mmol/L BUN (9-20) mg/dL Creatinine (0.66-1.25) mg/dL Est GFR (MDRD) Af Amer (>60 ml/min/1.73 sqM) Est GFR (MDRD) Non-Af (>60 ml/min/1.73 sqM) Glucose (74-99) mg/dL POC Glucose (mg/dL) 165 H (75-99) mg/dL POC Glu Distribution A Class Lineman [address] Glu mg/dL Hemoglobin A1c (4.0-6.0) % Plasma Lactic Acid Massimo (0.7-2.0) mmol/L Calcium (8.4-10.2) mg/dL Total Bilirubin (0.2-1.3) mg/dL AST (17-59) U/L ALT (21-72) U/L Alkaline Phosphatase (38-126) U/L Total Creatine Kinase 93 (55-170) U/L CK-MB (CK-2) 4.5 H* (0.0-2.4) ng/mL CK-MB (CK-2) Rel Index 4.8 Troponin I <0.012 (0.000-0.034) ng/mL Total Protein (6.3-8.2) g/dL Albumin (3.5-5.0) g/dL Urine Color Urine Appearance (Clear) Urine pH (5.0-8.0) Ur Specific Bloomer (1.001-1.035) Urine Protein (Negative) Urine Glucose (UA) (Negative) Urine Ketones (Negative) Urine Blood (Negative) Urine Nitrite (Negative) Urine Bilirubin (Negative) Urine Urobilinogen (<2.0) mg/dL Ur Leukocyte Esterase (Negative) Urine RBC (0-5) /hpf Urine WBC (0-5) /hpf Ur Squamous Epith Cells (0-4) /hpf Urine Bacteria (None) /hpf Hyaline Casts (0-2) /lpf Urine Mucus (None) /hpf 07/07/17 07/07/17 07/07/17 Range/Units 22:09 22:09 22:09 WBC (3.8-10.6) k/uL RBC (4.30-5.90) m/uL Hgb (13.0-17.5) gm/dL Hct (39.0-53.0) % MCV (80.0-100.0) fL MCH (25.0-35.0) pg MCHC (31.0-37.0) g/dL RDW (11.5-15.5) % Plt Count (150-450) k/uL Neutrophils % % Lymphocytes % % Monocytes % % Eosinophils % % Basophils % % Neutrophils # (1.3-7.7) k/uL Lymphocytes # (1.0-4.8) k/uL Monocytes # (0-1.0) k/uL Eosinophils # (0-0.7) k/uL Basophils # (0-0.2) k/uL Anisocytosis PT 10.0 (9.0-12.0) sec INR 1.0 (<1.2) APTT 23.3 (22.0-30.0) sec Sodium 138 (137-145) mmol/L Potassium 3.7 (3.5-5.1) mmol/L Chloride 96 L (98-107) mmol/L Carbon Dioxide 32 H (22-30) mmol/L Anion Gap 10 mmol/L BUN 17 (9-20) mg/dL Creatinine 4.70 H (0.66-1.25) mg/dL Est GFR (MDRD) Af Amer 16 (>60 ml/min/1.73 sqM) Est GFR (MDRD) Non-Af 14 (>60 ml/min/1.73 sqM) Glucose 165 H (74-99) mg/dL POC Glucose (mg/dL) (75-99) mg/dL POC Glu Distribution A Class Lineman ID Estimated Ave Glu mg/dL Hemoglobin A1c (4.0-6.0) % Plasma Lactic Acid Massimo 1.7 (0.7-2.0) mmol/L Calcium 9.1 (8.4-10.2) mg/dL Total Bilirubin 0.3 (0.2-1.3) mg/dL AST 24 (17-59) U/L ALT 21 (21-72) U/L Alkaline Phosphatase 116 (38-126) U/L Total Creatine Kinase (55-170) U/L CK-MB (CK-2) (0.0-2.4) ng/mL CK-MB (CK-2) Rel Index Troponin I (0.000-0.034) ng/mL Total Protein 8.1 (6.3-8.2) g/dL Albumin 3.4 L (3.5-5.0) g/dL Urine Color Urine Appearance (Clear) Urine pH (5.0-8.0) Ur Specific Bloomer (1.001-1.035) Urine Protein (Negative) Urine Glucose (UA) (Negative) Urine Ketones (Negative) Urine Blood (Negative) Urine Nitrite (Negative) Urine Bilirubin (Negative) Urine Urobilinogen (<2.0) mg/dL Ur Leukocyte Esterase (Negative) Urine RBC (0-5) /hpf Urine WBC (0-5) /hpf Ur Squamous Epith Cells (0-4) /hpf Urine Bacteria (None) /hpf Hyaline Casts (0-2) /lpf Urine Mucus (None) /hpf 07/07/17 07/08/17 Range/Units 22:09 00:55 WBC (3.8-10.6) k/uL RBC (4.30-5.90) m/uL Hgb (13.0-17.5) gm/dL Hct (39.0-53.0) % MCV (80.0-100.0) fL MCH (25.0-35.0) pg MCHC (31.0-37.0) g/dL RDW (11.5-15.5) % Plt Count (150-450) k/uL Neutrophils % % Lymphocytes % % Monocytes % % Eosinophils % % Basophils % % Neutrophils # (1.3-7.7) k/uL Lymphocytes # (1.0-4.8) k/uL Monocytes # (0-1.0) k/uL Eosinophils # (0-0.7) k/uL Basophils # (0-0.2) k/uL Anisocytosis PT (9.0-12.0) sec INR (<1.2) APTT (22.0-30.0) sec Sodium (137-145) mmol/L Potassium (3.5-5.1) mmol/L Chloride (98-107) mmol/L Carbon Dioxide (22-30) mmol/L Anion Gap mmol/L BUN (9-20) mg/dL Creatinine (0.66-1.25) mg/dL Est GFR (MDRD) Af Amer (>60 ml/min/1.73 sqM) Est GFR (MDRD) Non-Af (>60 ml/min/1.73 sqM) Glucose (74-99) mg/dL POC Glucose (mg/dL) (75-99) mg/dL POC Glu Distribution A Class Lineman ID Estimated Ave Glu mg/dL 134 Hemoglobin A1c 6.3 H (4.0-6.0) % Plasma Lactic Acid Amssimo (0.7-2.0) mmol/L Calcium (8.4-10.2) mg/dL Total Bilirubin (0.2-1.3) mg/dL AST (17-59) U/L ALT (21-72) U/L Alkaline Phosphatase (38-126) U/L Total Creatine Kinase (55-170) U/L CK-MB (CK-2) (0.0-2.4) ng/mL CK-MB (CK-2) Rel Index Troponin I (0.000-0.034) ng/mL Total Protein (6.3-8.2) g/dL Albumin (3.5-5.0) g/dL Urine Color Yellow Urine Appearance Cloudy (Clear) Urine pH 8.5 H (5.0-8.0) Ur Specific Bloomer 1.022 (1.001-1.035) Urine Protein 4+ H (Negative) Urine Glucose (UA) 3+ H (Negative) Urine Ketones Negative (Negative) Urine Blood Trace H (Negative) Urine Nitrite Negative (Negative) Urine Bilirubin Negative (Negative) Urine Urobilinogen <2.0 (<2.0) mg/dL Ur Leukocyte Esterase Negative (Negative) Urine RBC 11 H (0-5) /hpf Urine WBC 4 (0-5) /hpf Ur Squamous Epith Cells 1 (0-4) /hpf Urine Bacteria Rare H (None) /hpf Hyaline Casts 11 H (0-2) /lpf Urine Mucus Few H (None) /hpf - Radiology Data Two-view x-ray of the chest report was reviewed in its entirety, impression by Dr. fishman shows mild stable cardiomegaly and mild vascular congestion versus appearance to her low lung volumes. No focal infiltrate. (Lexy Ruano) Disposition Decision to Admit Reason: Admit from EC Decision Date: 07/08/17 Decision Time: 01:55 <Lexy Ruano - Last Filed: 07/08/17 02:04> <Maxwell Navarro - Last Filed: 07/09/17 18:58> Clinical Impression: Weakness, Vomiting Disposition: ADMITTED IP TO THIS HOSP Condition: Fair
[2017-07-07 22:11] LABS: Glucose,Whole Blood 165 mg/dL (75-99)
--- NOTE | 2017-07-07 22:50 | XR ---
EXAM: XR Chest, 2 Views CLINICAL HISTORY: Reason: Weakness TECHNIQUE: Frontal and lateral views of the chest. COMPARISON: 05/24/2017. FINDINGS: Lungs: Prominent perihilar markings likely related to low lung volumes versus mild central vascular congestion. No focal infiltrate. Pleural space: No pleural effusion. Heart: Stable cardiomediastinal silhouette. Heart size may be mildly enlarged. Mediastinum: See above. Bones/joints: Thoracolumbar compression deformity status post vertebroplasty. Tubes, lines and devices: Right internal jugular dual-lumen catheter is stable. IMPRESSION: Stable mild cardiomegaly and mild vascular congestion versus appearance due to low lung volumes. No focal infiltrate.
[2017-07-07 23:18] LABS: Anisocytosis Slight; Basophils % (A) 1 %; Eosinophils # (A) 0.3 k/uL (0-0.7); Eosinophils % (A) 4 %; HCT 26.7 % (39.0-53.0); HGB 8.4 gm/dL (13.0-17.5); Lymphocytes # (A) 1.2 k/uL (1.0-4.8); Lymphocytes % (A) 16 %; MCH 28.7 pg (25.0-35.0); MCHC 31.4 g/dL (31.0-37.0); MCV 91.5 fL (80.0-100.0); Mean Platelet Volume 7.8; Monocytes # (A) 0.8 k/uL (0-1.0); Monocytes % (A) 11 %; Neutrophils % (A) 67 %; Platelet Count 214 k/uL (150-450); RBC 2.92 m/uL (4.30-5.90); RDW 18.2 % (11.5-15.5); WBC 7.5 k/uL (3.8-10.6)
[2017-07-07 23:28] LABS: Albumin 3.4 g/dL (3.5-5.0); Calcium 9.1 mg/dL (8.4-10.2); Potassium 3.7 mmol/L (3.5-5.1); Total Bilirubin 0.3 mg/dL (0.2-1.3); Total Protein 8.1 g/dL (6.3-8.2)
[2017-07-07 23:35] LABS: Partial Thromboplastin Time 23.3 sec (22.0-30.0)
[2017-07-07 23:47] LABS: Creatine Kinase 93 U/L (55-170)
[2017-07-08] LABS: Troponin I <0.012 ng/mL (0.000-0.034)
[2017-07-08 00:02] LABS: Creatine Kinase MB 4.5 ng/mL (0.0-2.4)
[2017-07-08] MEDS ORDERED: METOCLOPRAMIDE 5 MG/ML 2 ML VIAL IVP STA (00:51)
[2017-07-08] MEDS ORDERED: diphenhydrAMINE 50 MG/ML 1 ML VIAL IVP STA (00:51)
[2017-07-08 01:12] LABS: Appearance,Urine Cloudy (Clear); Bacteria,Urine Rare /hpf; Bilirubin,Urine Negative (Negative); Blood,Urine Trace (Negative); Color,Urine Yellow; Glucose,Urine (UA) 3+ (Negative); Hyaline Casts,Urine 11 /lpf (0-2); Ketones,Urine Negative (Negative); Leukocyte Esterase,Urine Negative (Negative); Mucus,Urine Few /hpf; Nitrite,Urine Negative (Negative); PH, Urine 8.5 (5.0-8.0); Protein,Urine 4+ (Negative); RBC,Urine 11 /hpf (0-5); Specific Gravity,Urine 1.022 (1.001-1.035); Squamous Epithelial Cell,Urine 1 /hpf (0-4); Urobilinogen,Urine <2.0 mg/dL (<2.0); WBC,Urine 4 /hpf (0-5)
[2017-07-08 01:34] LABS: Glucose,Whole Blood 137 mg/dL (75-99)
[2017-07-08] MEDS ORDERED: NALOXONE 0.4 MG/ML 1 ML VIAL IV PRN (01:37)
[2017-07-08] MEDS: SODIUM CHLORIDE 0.9% 1,000 ML IV SCH ×2 (01:58→10:44)
[2017-07-08 08:38] LABS: Glucose,Whole Blood 131 mg/dL (75-99)
[2017-07-08] MEDS: PANTOPRAZOLE 40 MG/10 ML VIAL IVP SCH (10:44)
[2017-07-08 11:51] LABS: Glucose,Whole Blood 180 mg/dL (75-99)
[2017-07-08] MEDS: amLODIPine 10 MG TAB PO SCH (12:14)
[2017-07-08] MEDS: CALCIUM ACETATE 667 MG CAP PO SCH ×2 (12:14→18:32)
[2017-07-08] MEDS: DIVALPROEX 250 MG TABLET.DR PO SCH ×2 (12:14→18:32)
[2017-07-08] MEDS: INSULIN ASPART 100 UNIT/ML 1 ML 10 ML VIAL SQ SCH ×3 (12:48→22:28)
[2017-07-08] MEDS: SEVELAMER 800 MG TAB PO SCH ×2 (13:51→18:32)
--- NOTE | 2017-07-08 14:53 | P.HPIM ---
History of Present Illness H&P Date: 07/08/17 Chief Complaint: Weakness 46-year-old male who presented to the emergency room on 07/07/2017 with a chief complaint of weakness. The patient had a recent hospitalization from 05/20/2017 until 06/01/2017 secondary to peritonitis. The patient was undergoing peritoneal dialysis at that time. His peers dialysis catheter was removed and he was temporarily transitioned to hemodialysis. At the time of discharge the patient was transferred to subacute rehab. The patient states he has been discharged from subacute rehab approximately one week and has been living at home. He states he has been attending hemodialysis Wednesdays and Fridays. He states he is also been seen Dr. Sy in the wound care center and saw him yesterday and he states his wound was debrided at that time. He says over the past week, he has felt increasingly more weak and fatigued. He states anytime he is trying to accomplish the task he becomes shaky and dizzy and is unable to complete it. The patient states he thinks it is secondary to his anemia. He states he has undergone 2 blood transfusions in the past 2 weeks during dialysis. The patient has a history of end-stage renal disease, coronary artery disease, diabetes mellitus with a recent hemoglobin A1c of 9.9%, deep vein thrombosis, gastroesophageal reflux disease, hypertension, hyperlipidemia, myocardial infarction, peripheral vascular disease with a left [id number] amputation and a right foot partial amputation. He has a history of MRSA in 2015 in his blood and left foot. In the emergency room a chest x-ray was completed which revealed stable mild cardiomegaly and mild vascular congestion. It was negative for pulmonary infiltrates. Laboratory studies completed revealed a sodium of 138. Potassium 3.7. BUN 17. Creatinine 4.7. WBC 7.5. Hemoglobin 8.4. Platelet count 214. Troponin negative 1. Lactic acid 1.7. The patient was seen and examined at the bedside on rounds with Dr. Aguilar. The patient states he continues to feel weak. He states he does not have much of an appetite. He denies nausea or vomiting at this time. He states he did eat a little bit of his clear liquid tray. He denies chest pain or pressure. He denies shortness of breath. Review of Systems GENERAL: Positive for generalized fatigue and weakness. Patient denies fever. Denies chills. EYES: Denies blurred vision. Denies vision changes. Denies eye pain. EARS, NOSE, MOUTH, & THROAT: Denies headache. Denies sore throat. Denies ear pain. RESPIRATORY: Denies cough. Denies shortness of breath. Denies sputum production. Denies hemoptysis. CARDIOVASCULAR: Denies chest pain or pressure. Denies palpitations. Denies arrhythmias. GASTROINTESTINAL: Denies abdominal pain. Denies diarrhea. Denies constipation. Denies nausea. Denies vomiting. Denies heartburn. Denies blood in the stool. GENITOURINARY: Denies urinary frequency. Denies burning. Denies dysuria. Denies cloudy urine. Denies blood in the urine. MUSCULOSKELETAL: Positive for left hcglk-ssa-tldh amputation and right partial foot amputation. Denies myalgias. Denies joint swelling. Denies decreased range of motion beyond patients baseline. INTEGUMENTARY: Positive for chronic wounds to right foot. Denies pruitis. Denies rash. PSYCHIATRIC: Denies suicidal or homicial ideations. ENDOCRINE: Denies weight change. Denies polydipsia. Denies polyuria. HEMATOLOGIC: Positive for 2 blood transfusions within the last 2 weeks. Denies bleeding disorders. Past Medical History Past Medical History: Coronary Artery Disease (CAD), Diabetes Mellitus, Dialysis , Deep Vein Thrombosis (DVT), GERD/Reflux, Hyperlipidemia, Hypertension, Myocardial Infarction (NC), Renal Disease, Seizure Disorder, Thyroid Disorder Additional Past Medical History / Comment(s): Pt recently admitted to [facility] on with peritonitis PD cath removed and hemodialysis cath placed, possible TIA with L sided weakness which resolved, moderate protein calorie malnourishment. Other HX: Diabetic gastroparesis, end stage renal disease currently on peritoneal dialysis , peripheral neuropathy, chronic anemia , compression fracture of the vertebral, blood clot from IV line in the upper extremity on the left, insulin-dependent diabetes mellitus type II, gastritis , peripheral vascular disease with previous amputation involving a below-knee amputation on the left and right partial foot amputation, current bernabe grade II diabetic ulcer plantar R foot and lateral R leg, MRSA R foot. Last Myocardial Infarction Date:: 2012 History of Any Multi-Drug Resistant Organisms: MRSA Date of last positivie culture/infection: 07/01/17 MDRO Source:: RIGHT FOOT Past Surgical History: Orthopedic Surgery Additional Past Surgical History / Comment(s): PD catheter now removed, HD catheter, I&D R foot/lateral R leg, amputation right toes, BKA right leg Oct2013, GEORGE CATARACTS,VITRECTOMY,GEORGE RETINAL SX Past Anesthesia/Blood Transfusion Reactions: No Reported Reaction Additional Past Anesthesia/Blood Transfusion Reaction / Comment(s): Pt has received blood without reaction. Smoking Status: Never smoker - Past Family History Father Family Medical History: Cancer Additional Family Medical History / Comment(s): CANCER FROM [employer] Mother History Unknown: Yes Family Medical History: Cancer, Supraventricular Tachycardia (SVT) Additional Family Medical History / Comment(s): LUNG CANCER(SMOKER) Medications and Allergies Home Medications Medication Instructions Recorded Confirmed Type Atorvastatin [Lipitor] 80 mg PO HS 04/08/15 07/08/17 History Calcium Acetate [PhosLo] 667 mg PO TID-W/MEALS 04/08/15 07/08/17 History Insulin Glargine [Lantus] 12 unit SQ HS 04/08/15 07/08/17 History Levothyroxine Sodium [Synthroid] 25 mcg PO DAILY 04/08/15 07/08/17 History Sevelamer [Renvela] 800 mg PO AC-TID 01/20/16 07/08/17 History Amiodarone [Cordarone] 200 mg PO BID 05/20/17 07/08/17 History Dilcia Jordan 1 tab PO TID 05/20/17 07/08/17 History Tamsulosin [Flomax] 0.4 mg PO PC-SUPPER 05/20/17 07/08/17 History Thiamine [Vitamin B-1] 100 mg PO DAILY 05/20/17 07/08/17 History amLODIPine [Norvasc] 10 mg PO DAILY 05/20/17 07/08/17 History levETIRAcetam [Keppra] 750 mg PO BID #60 tab 06/01/17 07/08/17 Rx Divalproex [Depakote] 250 mg PO TID@0800,1200,1800 06/10/17 07/08/17 History Doxycycline Hyclate 100 mg PO BID #28 tab 07/06/17 07/08/17 Rx Insulin Lispro [humaLOG Kwikpen] See Protocol SQ AC-TID 07/08/17 07/08/17 History Allergies Allergy/AdvReac Type Severity Reaction Status Date / Time No Known Allergies Allergy Verified 07/08/17 09:58 Physical Exam Vitals: Vital Signs Temp Pulse Pulse Resp BP BP Pulse Ox 07/08/17 06:57 98.6 F 73 12 150/85 98 07/08/17 05:36 67 16 162/83 93 L 07/08/17 03:32 70 16 156/75 98 07/08/17 01:32 78 18 155/84 96 07/08/17 00:08 98.3 F 72 18 160/83 99 07/07/17 22:13 97.9 F 77 18 178/77 96 07/07/17 19:45 97.9 F 83 20 174/85 100 Intake and Output 07/07/17 07/08/17 07/08/17 22:59 06:59 14:59 Other: # Bowel Movements 1 Weight 86.183 kg GENERAL: This is a 46-year-old male in no apparent distress at the time of examination. Appears lethargic. HEENT: Head is atraumatic, normocephalic. Pupils are equal, round, and reactive to light. Sclerae anicteric. Conjunctivae are clear. Mucus membranes of the mouth are moist. Neck is supple. RESPIRATORY: Clear to ausculation. No wheezes, rales, or rhonchi. No use of accessory muscles. Patient maintaining oxygen saturation greater than 92%. No chest wall tenderness is noted on palpation or with deep breathing. CARDIOVASCULAR: Regular rate and rhythm. S1 and S2 noted. No systolic or diastolic murmur auscultated. No JVD noted. No S3 or S4 noted. GASTROINTESTINAL: No distention noted. Abdomen soft and round. Normal active bowel sounds auscultated X 4 quadrants. No pain or tenderness noted upon palpation. INTEGUMENTARY: Chronic wound to right foot. Currently wrapped with gauze. No cyanosis. No jaundice. No rashes noted. EXTREMITIES: Left below the knee amputation. Right partial foot amputation. 2 + peripheral pulses. No evidence of peripheral edema. No calf tenderness noted. NEUROLOGIC: Cranial nerves II-XII intact. PSYCHIATRIC: Oriented 3. Flat affect. Results CBC & Chem 7: 07/07/17 22:09 07/07/17 22:09 Labs: Abnormal Lab Results - Last 24 Hours (Table) 12/07/07/17 07/07/17 Range/Units 22:08 22:09 22:09 RBC 2.92 L (4.30-5.90) m/uL Hgb 8.4 L (13.0-17.5) gm/dL Hct 26.7 L (39.0-53.0) % RDW 18.2 H (11.5-15.5) % Chloride (98-107) mmol/L Carbon Dioxide (22-30) mmol/L Creatinine (0.66-1.25) mg/dL Glucose (74-99) mg/dL POC Glucose (mg/dL) 165 H (75-99) mg/dL CK-MB (CK-2) 4.5 H* (0.0-2.4) ng/mL Albumin (3.5-5.0) g/dL Urine pH (5.0-8.0) Urine Protein (Negative) Urine Glucose (UA) (Negative) Urine Blood (Negative) Urine RBC (0-5) /hpf Urine Bacteria (None) /hpf Hyaline Casts (0-2) /lpf Urine Mucus (None) /hpf 07/07/17 07/08/17 07/08/17 Range/Units 22:09 00:55 01:31 RBC (4.30-5.90) m/uL Hgb (13.0-17.5) gm/dL Hct (39.0-53.0) % RDW (11.5-15.5) % Chloride 96 L (98-107) mmol/L Carbon Dioxide 32 H (22-30) mmol/L Creatinine 4.70 H (0.66-1.25) mg/dL Glucose 165 H (74-99) mg/dL POC Glucose (mg/dL) 137 H (75-99) mg/dL CK-MB (CK-2) (0.0-2.4) ng/mL Albumin 3.4 L (3.5-5.0) g/dL Urine pH 8.5 H (5.0-8.0) Urine Protein 4+ H (Negative) Urine Glucose (UA) 3+ H (Negative) Urine Blood Trace H (Negative) Urine RBC 11 H (0-5) /hpf Urine Bacteria Rare H (None) /hpf Hyaline Casts 11 H (0-2) /lpf Urine Mucus Few H (None) /hpf 07/08/17 07/08/17 Range/Units 08:08 11:43 RBC (4.30-5.90) m/uL Hgb (13.0-17.5) gm/dL Hct (39.0-53.0) % RDW (11.5-15.5) % Chloride (98-107) mmol/L Carbon Dioxide (22-30) mmol/L Creatinine (0.66-1.25) mg/dL Glucose (74-99) mg/dL POC Glucose (mg/dL) 131 H 180 H (75-99) mg/dL CK-MB (CK-2) (0.0-2.4) ng/mL Albumin (3.5-5.0) g/dL Urine pH (5.0-8.0) Urine Protein (Negative) Urine Glucose (UA) (Negative) Urine Blood (Negative) Urine RBC (0-5) /hpf Urine Bacteria (None) /hpf Hyaline Casts (0-2) /lpf Urine Mucus (None) /hpf Microbiology - Last 24 Hours (Table) 07/08/17 00:55 Urine Culture - Preliminary Urine,Voided Thrombosis Risk Factor Assmnt - Choose All That Apply Any of the Below Risk Factors Present?: Yes Each Factor Represents 1 point: Age 41-60 years, Obesity (BMI >25) Other Risk Factors: No Other congenital or acquired thrombophilia - If yes, enter type in comment: No Thrombosis Risk Factor Assessment Total Risk Factor Score: 2 Thrombosis Risk Factor Assessment Level: Low Risk Assessment and Plan Plan: ASSESSMENT: Anemia of chronic disease, secondary to chronic kidney disease, requiring 2 blood transfusions within the last 2 weeks Generalized weakness and fatigue, possibly secondary to above End-stage renal disease, currently on hemodialysis Recent hospitalization for peritonitis with infected peritoneal dialysis catheter Diabetes mellitus, type II, previous hemoglobin A1c 9.9%, current hemoglobin A1c pending Diabetic ulcer to right plantar foot and right lateral leg, status post surgical debridement on 07/01/2017 Coronary artery disease with previous myocardial infarction Peripheral vascular disease with history of left BKA and right partial foot amputation History of MRSA infection in left lower extremity Hypertension History of seizures PLAN: -Consult nephrology for chronic kidney disease -Patient undergoes hemodialysis Wednesday and Wednesday -Monitor hemoglobin. No blood transfusions necessary at this time -Obtain reticulocyte count -Consult Dr. Sy secondary to chronic wound on right foot -Patient was last seen in the wound Center on 07/01/2017 and per wound Center documentation was to be reevaluated in one week. At that time dressing included Santyl mixed with Bactroban to plantar foot and Santyl only to right lateral leg. -Continue clear liquid diet. Advance as tolerated. -Home meds as appropriate -Capillary blood glucose Accu-Cheks before meals and at bedtime -NovoLog sliding scale insulin coverage before meals and at bedtime -Continue home dose of Lantus -Obtain hemoglobin A1c -PT/OT consult -Monitor labs -GI prophylaxis: Protonix 40 mg IV daily -DVT prophylaxis: Sequential compression devices -Monitor vital signs and address as appropriate -Discharge planning: Patient to return home when stable -Further recommendations pending patient's course Nurse practitioner note has been reviewed by physician. Signing provider agrees with the documented findings, assessment, and plan of care.
[2017-07-08] MEDS: FOLIC ACID-VIT B COMPLEX-VIT C 1 CAP PO SCH ×2 (16:01→22:28)
[2017-07-08 16:23] LABS: Reticulocyte % 3.1 % (0.5-2.0)
[2017-07-08 17:46] LABS: Glucose,Whole Blood 55 mg/dL (75-99)
[2017-07-08 18:29] LABS: Glucose,Whole Blood 78 mg/dL (75-99)
[2017-07-08 18:29] LABS: Glucose,Whole Blood 64 mg/dL (75-99)
[2017-07-08] MEDS: DARBEPOETIN ALFA 40 MCG/0.4 ML SYRINGE SQ SCH (18:31)
[2017-07-08] MEDS: TAMSULOSIN 0.4 MG CAP.ER.24H PO SCH (18:32)
[2017-07-08 19:50] LABS: Hemoglobin A1C 6.3 % (4.0-6.0)
[2017-07-08 20:41] LABS: Glucose,Whole Blood 138 mg/dL (75-99)
[2017-07-08] MEDS ORDERED: INSULIN DETEMIR 100 UNIT/ML 10 ML VIAL SQ SCH ×2 (21:00)
[2017-07-08] MEDS: AMIODARONE 200 MG TAB PO SCH (22:27)
[2017-07-08] MEDS: ATORVASTATIN 80 MG TAB PO SCH (22:28)
[2017-07-08] MEDS: DOXYCYCLINE 50 MG CAP PO SCH (22:28)
--- NOTE | 2017-07-08 22:31 | CONS ---
CONSULTATION REASON FOR CONSULT: End-stage renal disease. HISTORY OF PRESENT ILLNESS: Patient is a 46-year-old male with end-stage renal disease, on hemodialysis on a Wednesday, Wednesday, Wednesday schedule. He was admitted to the hospital with nausea and vomiting. The patient has had packed RBCs transfusion as outpatient. He has not noticed any active bleeding. However, at this time he is not able to provide me detailed history. He has not had any diarrhea or fever according to nursing staff. PAST MEDICAL HISTORY: End-stage renal disease, coronary artery disease, history of DVT, gastroesophageal reflux disease, gastroparesis, history of NE, seizure disorder, neuropathy, peripheral vascular disease. PAST SURGICAL HISTORY: Left BKA, PD catheter placement removal, PermCath placement, right IJ, foot surgery, cataract surgery, vitrectomy. SOCIAL HISTORY: Negative for smoking, drug abuse or alcohol abuse. MEDICATIONS: Prior to admission were Lipitor, PhosLo, insulin, Synthroid, Cordarone, Renvela, Flomax, Norvasc, Zofran, Depakote, Keppra, amoxicillin, doxycycline. ALLERGIES: None. REVIEW OF SYSTEMS: As per HPI. Other systems negative. EXAMINATION: Patient is comfortable. He is not in any acute distress. He is arousable, but falls back to sleep. Blood pressure is 150/85, heart rate 73 per minute. He is afebrile. Examination of the heart S1, S2. Examination lungs bilateral breath sounds are heard. Abdomen is soft, nontender. Examination lower extremities shows left BKA. LAB: Show sodium 138, potassium 3.7, chloride 96, hemoglobin 8.4 g/dL. Troponin less than 0.12. ASSESSMENT: 1. End-stage renal disease, on hemodialysis on a Wednesday, Wednesday, Wednesday schedule by [facility] [place]. The patient will be scheduled for hemodialysis tomorrow. 2. Anemia. No active bleeding noted at this time. Hemoglobin previously on 06/15 was 6.3, as noted on his previous labs. I will maintain patient on Aranesp. 3. Chronic kidney disease mineral bone disorder maintained on PhosLo. 4. Hypertension, currently controlled. 5. Diabetic gastroparesis with nausea and vomiting, currently slightly better. PLAN: Hemodialysis in a.m. add Aranesp and repeat labs in a.m. MMODL / IJN: [id number] /
[2017-07-09] MEDS: PROCHLORPERAZINE 5 MG TAB PO PRN (05:37)
[2017-07-09] MEDS: LEVOTHYROXINE 25 MCG TAB PO SCH (05:37)
[2017-07-09 07:30] LABS: Anisocytosis Slight; Basophils % (A) 0 %; Eosinophils # (A) 0.3 k/uL (0-0.7); Eosinophils % (A) 4 %; HCT 21.9 % (39.0-53.0); Hypochromasia Slight; Lymphocytes # (A) 1.1 k/uL (1.0-4.8); Lymphocytes % (A) 15 %; MCH 29.9 pg (25.0-35.0); MCHC 31.9 g/dL (31.0-37.0); MCV 93.8 fL (80.0-100.0); Mean Platelet Volume 7.2; Monocytes # (A) 0.6 k/uL (0-1.0); Monocytes % (A) 8 %; Neutrophils # (A) 5.4 k/uL (1.3-7.7); Neutrophils % (A) 71 %; Platelet Count 228 k/uL (150-450); RBC 2.33 m/uL (4.30-5.90); RDW 16.8 % (11.5-15.5); WBC 7.6 k/uL (3.8-10.6)
[2017-07-09 07:35] LABS: Glucose,Whole Blood 55 mg/dL (75-99)
[2017-07-09 07:36] LABS: Calcium 9.4 mg/dL (8.4-10.2); Potassium 3.7 mmol/L (3.5-5.1)
[2017-07-09 07:46] LABS: Glucose,Whole Blood 57 mg/dL (75-99)
[2017-07-09 08:24] LABS: Glucose,Whole Blood 118 mg/dL (75-99)
[2017-07-09] MEDS: SEVELAMER 800 MG TAB PO SCH ×3 (08:36→20:50)
[2017-07-09] MEDS: FOLIC ACID-VIT B COMPLEX-VIT C 1 CAP PO SCH ×3 (08:36→23:53)
[2017-07-09] MEDS: DIVALPROEX 250 MG TABLET.DR PO SCH ×3 (08:38→20:51)
[2017-07-09] MEDS: AMIODARONE 200 MG TAB PO SCH ×2 (08:38→20:51)
[2017-07-09] MEDS: INSULIN ASPART 100 UNIT/ML 1 ML 10 ML VIAL SQ SCH ×4 (08:39→23:52)
[2017-07-09] MEDS: CALCIUM ACETATE 667 MG CAP PO SCH ×3 (08:39→20:51)
[2017-07-09] MEDS: DOXYCYCLINE 50 MG CAP PO SCH ×2 (08:40→20:49)
[2017-07-09] MEDS: amLODIPine 10 MG TAB PO SCH (08:40)
[2017-07-09] MEDS: THIAMINE 100 MG TAB PO SCH (08:41)
[2017-07-09] MEDS: PANTOPRAZOLE 40 MG/10 ML VIAL IVP SCH (08:41)
[2017-07-09 11:03] VITALS: BMI 28.0
[2017-07-09 12:03] LABS: Glucose,Whole Blood 142 mg/dL (75-99)
--- NOTE | 2017-07-09 13:42 | P.PN ---
Subjective Progress Note Date: 07/09/17 46-year-old male who presented to the emergency room on 07/07/2017 with a chief complaint of weakness. The patient had a recent hospitalization from 05/20/2017 until 06/01/2017 secondary to peritonitis. The patient was undergoing peritoneal dialysis at that time. His peers dialysis catheter was removed and he was temporarily transitioned to hemodialysis. At the time of discharge the patient was transferred to subacute rehab. The patient states he has been discharged from subacute rehab approximately one week and has been living at home. He states he has been attending hemodialysis Wednesdays and Fridays. He states he is also been seen Dr. Sy in the wound care center and saw him yesterday and he states his wound was debrided at that time. He says over the past week, he has felt increasingly more weak and fatigued. He states anytime he is trying to accomplish the task he becomes shaky and dizzy and is unable to complete it. The patient states he thinks it is secondary to his anemia. He states he has undergone 2 blood transfusions in the past 2 weeks during dialysis. The patient has a history of end-stage renal disease, coronary artery disease, diabetes mellitus with a recent hemoglobin A1c of 9.9%, deep vein thrombosis, gastroesophageal reflux disease, hypertension, hyperlipidemia, myocardial infarction, peripheral vascular disease with a left [id number] amputation and a right foot partial amputation. He has a history of MRSA in 2015 in his blood and left foot. In the emergency room a chest x-ray was completed which revealed stable mild cardiomegaly and mild vascular congestion. It was negative for pulmonary infiltrates. Laboratory studies completed revealed a sodium of 138. Potassium 3.7. BUN 17. Creatinine 4.7. WBC 7.5. Hemoglobin 8.4. Platelet count 214. Troponin negative 1. Lactic acid 1.7. 07/08/2017 The patient was seen and examined at the bedside on rounds with Dr. Aguilar. The patient states he continues to feel weak. He states he does not have much of an appetite. He denies nausea or vomiting at this time. He states he did eat a little bit of his clear liquid tray. He denies chest pain or pressure. He denies shortness of breath. 07/09/2017 Patient seen and examined at the bedside. Patient remains lethargic. Patient' s hemoglobin this morning is 7.0 down from 8.4 yesterday. The patient is to receive 1 unit of packed RBCs. He was started on Aranesp per nephrology. Reticulocyte count is 3.1%. Patient's BUN is 26 and creatinine 7.14. Nephrology has been consulted and the patient is scheduled for hemodialysis today. Physical therapy was consulted yesterday secondary to generalized weakness. Patient refused to work with physical therapy yesterday because he stated he could not bear weight on his right lower extremity. Patient has had a few episodes of hypoglycemia ranging from 41-57. and was treated with orange juice per nursing staff. His blood sugar this morning is 118. He remains on a consistent carbohydrate and heart healthy diet. His intake has been decreased secondary to lack of appetite. Objective - Vital Signs Vital signs: Vital Signs Temp 98.5 F 07/09/17 07:00 Pulse 71 07/09/17 07:00 Resp 15 07/09/17 07:00 BP 144/77 07/09/17 07:00 Pulse Ox 97 07/09/17 07:00 Intake & Output 07/08/17 07/09/17 07/09/17 18:59 06:59 18:59 Intake Total 240 Output Total 300 Balance -300 240 Weight 86.183 kg Intake: Intake, IV Titration 240 Amount Sodium Chloride 0.9% 1, 240 000 ml @ 20 mls/hr IV . Q24H TRAE Rx#:[id number] Output: Urine 300 Other: Voiding Method Bedside Commode Bedside Commode Urinal # Bowel Movements 1 1 - Exam GENERAL: This is a 46-year-old male in no apparent distress at the time of examination. Appears lethargic. HEENT: Head is atraumatic, normocephalic. Pupils are equal, round, and reactive to light. Sclerae anicteric. Conjunctivae are clear. Mucus membranes of the mouth are moist. Neck is supple. RESPIRATORY: Clear to ausculation. No wheezes, rales, or rhonchi. No use of accessory muscles. Patient maintaining oxygen saturation greater than 92%. No chest wall tenderness is noted on palpation or with deep breathing. CARDIOVASCULAR: Regular rate and rhythm. S1 and S2 noted. No systolic or diastolic murmur auscultated. No JVD noted. No S3 or S4 noted. GASTROINTESTINAL: No distention noted. Abdomen soft and round. Normal active bowel sounds auscultated X 4 quadrants. No pain or tenderness noted upon palpation. INTEGUMENTARY: Chronic wound to right foot. Currently wrapped with gauze. No cyanosis. No jaundice. No rashes noted. EXTREMITIES: Left below the knee amputation. Right partial foot amputation. 2 + peripheral pulses. No evidence of peripheral edema. No calf tenderness noted. NEUROLOGIC: Cranial nerves II-XII intact. PSYCHIATRIC: Oriented 3. Flat affect. - Labs CBC & Chem 7: 07/09/17 06:46 07/09/17 06:46 Labs: Abnormal Lab Results - Last 24 Hours (Table) 07/07/17 07/08/17 07/08/17 Range/Units 22:09 11:43 15:43 RBC (4.30-5.90) m/uL Hgb (13.0-17.5) gm/dL Hct (39.0-53.0) % RDW (11.5-15.5) % Retic Count 3.1 H (0.5-2.0) % Sodium (137-145) mmol/L Chloride (98-107) mmol/L Carbon Dioxide (22-30) mmol/L BUN (9-20) mg/dL Creatinine (0.66-1.25) mg/dL Glucose (74-99) mg/dL POC Glucose (mg/dL) 180 H (75-99) mg/dL Hemoglobin A1c 6.3 H (4.0-6.0) % Crossmatch 07/08/17 07/08/17 07/08/17 Range/Units 17:35 18:05 20:22 RBC (4.30-5.90) m/uL Hgb (13.0-17.5) gm/dL Hct (39.0-53.0) % RDW (11.5-15.5) % Retic Count (0.5-2.0) % Sodium (137-145) mmol/L Chloride (98-107) mmol/L Carbon Dioxide (22-30) mmol/L BUN (9-20) mg/dL Creatinine (0.66-1.25) mg/dL Glucose (74-99) mg/dL POC Glucose (mg/dL) 55 L 64 L 138 H (75-99) mg/dL Hemoglobin A1c (4.0-6.0) % Crossmatch 07/09/17 07/09/17 07/09/17 Range/Units 06:46 06:46 07:24 RBC 2.33 L (4.30-5.90) m/uL Hgb 7.0 L* (13.0-17.5) gm/dL Hct 21.9 L (39.0-53.0) % RDW 16.8 H (11.5-15.5) % Retic Count (0.5-2.0) % Sodium 136 L (137-145) mmol/L Chloride 97 L (98-107) mmol/L Carbon Dioxide 32 H (22-30) mmol/L BUN 26 H (9-20) mg/dL Creatinine 7.14 H* (0.66-1.25) mg/dL Glucose 41 L* (74-99) mg/dL POC Glucose (mg/dL) 55 L (75-99) mg/dL Hemoglobin A1c (4.0-6.0) % Crossmatch 07/09/17 07/09/17 07/09/17 Range/Units 07:43 08:21 09:01 RBC (4.30-5.90) m/uL Hgb (13.0-17.5) gm/dL Hct (39.0-53.0) % RDW (11.5-15.5) % Retic Count (0.5-2.0) % Sodium (137-145) mmol/L Chloride (98-107) mmol/L Carbon Dioxide (22-30) mmol/L BUN (9-20) mg/dL Creatinine (0.66-1.25) mg/dL Glucose (74-99) mg/dL POC Glucose (mg/dL) 57 L 118 H (75-99) mg/dL Hemoglobin A1c (4.0-6.0) % Crossmatch See Detail Microbiology - Last 24 Hours (Table) 07/08/17 00:55 Urine Culture - Final Urine,Voided Assessment and Plan Plan: ASSESSMENT: Anemia of chronic disease, secondary to chronic kidney disease, requiring 2 blood transfusions within the last 2 weeks, patient to receive 1 unit packed RBCs today, patient started on Aranesp per nephrology Generalized weakness and fatigue, possibly secondary to above End-stage renal disease, currently on hemodialysis Recent hospitalization for peritonitis with infected peritoneal dialysis catheter Diabetes mellitus, type II, previous hemoglobin A1c 9.9%, current hemoglobin A1c 6.3% Hypoglycemia, secondary to decreased oral intake, resolved Diabetic gastroparesis Diabetic ulcer to right plantar foot and right lateral leg, status post surgical debridement on 07/01/2017 Coronary artery disease with previous myocardial infarction Peripheral vascular disease with history of left BKA and right partial foot amputation History of MRSA infection in left lower extremity Hypertension History of seizures PLAN: -Nephrology on consult. Appreciate recommendations and input -Patient to undergo hemodialysis today. His schedule is Wednesday and Wednesday. -Patient to receive 1 unit packed RBCs today. Monitor hemoglobin. -Dr. Sy consulted secondary to chronic wound on right foot -Patient was last seen in the wound Center on 07/01/2017 and per wound Center documentation was to be reevaluated in one week. At that time dressing included Santyl mixed with Bactroban to plantar foot and Santyl only to right lateral leg. -Continue consistent carbohydrate and heart healthy diet. Encourage oral intake as tolerated -Home meds as appropriate -Capillary blood glucose Accu-Cheks before meals and at bedtime -Continue NovoLog sliding scale insulin coverage before meals and at bedtime -Discontinue Lantus secondary to hypoglycemia -PT/OT -Monitor labs -GI prophylaxis: Protonix 40 mg IV daily -DVT prophylaxis: Sequential compression devices -Monitor vital signs and address as appropriate -Discharge planning: Patient to return home when stable -Further recommendations pending patient's course Nurse practitioner note has been reviewed by physician. Signing provider agrees with the documented findings, assessment, and plan of care.
[2017-07-09] MEDS: Acetaminophen-Codeine 300-30mg TAB PO PRN ×2 (14:48→20:48)
[2017-07-09 16:54] LABS: Glucose,Whole Blood 123 mg/dL (75-99)
--- NOTE | 2017-07-09 18:36 | PN ---
PROGRESS NOTE Patient is seen for followup for end-stage renal disease. He was admitted to the hospital yesterday with nausea and vomiting. He is currently lying in bed. He is sleeping, but easily arousable. He is not in any acute distress. Patient is scheduled on a Wednesday, Wednesday, Wednesday schedule for hemodialysis via right IJ PermCath. He was also noted and noted to have significant anemia. Hemoglobin was at 8.4 yesterday and today it was down to 7.0 g/dL. The patient has received packed RBCs transfusion as outpatient for hemoglobin as low as 6.3 g/dL. EXAMINATION: He is comfortable. Blood pressure is 154/81, heart rate 75 per minute. He is afebrile. HEART: S1, S2. LUNGS: Bilateral breath sounds are heard. Abdomen is soft, nontender. Lower extremities show no significant edema. The patient has a left BKA. ASSESSMENT: 1. End-stage renal disease, on hemodialysis on a Wednesday, Wednesday, Wednesday schedule. Will schedule patient for hemodialysis today. 2. Anemia. No active bleeding noted. Maintained on Aranesp. Hemoglobin has dropped further from 8.6 on 06/07 to 7.0 now. The patient will need gastrointestinal workup if he has not had any gastrointestinal workup recently. I do see that stool for occult blood was negative on 06/10/2017. 3. Nausea and vomiting seems to have improved, most likely secondary to underlying diabetic gastroparesis. PLAN: Continue with Aranesp. Recommend consult to Hematology. Check iron studies and repeat hemoglobin in a.m. MMODL / IJN: [id number] /
[2017-07-09 20:19] LABS: Glucose,Whole Blood 131 mg/dL (75-99)
[2017-07-09] MEDS: COLLAGENASE 250 UNIT/GM OINTMENT 30 GM TUBE TOPICAL SCH (20:49)
[2017-07-09] MEDS: MUPIROCIN 2% OINT 22 GM TUBE TOPICAL SCH (20:49)
[2017-07-09] MEDS: TAMSULOSIN 0.4 MG CAP.ER.24H PO SCH (20:50)
[2017-07-09] MEDS: ATORVASTATIN 80 MG TAB PO SCH (20:50)
[2017-07-10 00:56] LABS: Iron Saturation 11.95 (15.00-50.00)
[2017-07-10] MEDS: Acetaminophen-Codeine 300-30mg TAB PO PRN ×2 (00:56→04:53)
[2017-07-10] MEDS: LEVOTHYROXINE 25 MCG TAB PO SCH (04:51)
[2017-07-10] MEDS: SODIUM CHLORIDE 0.9% 1,000 ML IV SCH (04:51)
[2017-07-10 07:06] LABS: Glucose,Whole Blood 136 mg/dL (75-99)
[2017-07-10] MEDS: INSULIN ASPART 100 UNIT/ML 1 ML 10 ML VIAL SQ SCH ×4 (08:00→20:42)
[2017-07-10] MEDS: FOLIC ACID-VIT B COMPLEX-VIT C 1 CAP PO SCH ×3 (08:01→22:06)
[2017-07-10] MEDS: CALCIUM ACETATE 667 MG CAP PO SCH ×3 (08:01→17:29)
[2017-07-10] MEDS: SEVELAMER 800 MG TAB PO SCH ×3 (08:01→17:29)
[2017-07-10] MEDS: AMIODARONE 200 MG TAB PO SCH ×2 (08:01→22:06)
[2017-07-10] MEDS: PANTOPRAZOLE 40 MG/10 ML VIAL IVP SCH (08:01)
[2017-07-10] MEDS: THIAMINE 100 MG TAB PO SCH (08:02)
[2017-07-10] MEDS: DIVALPROEX 250 MG TABLET.DR PO SCH ×3 (08:02→17:29)
[2017-07-10] MEDS: DOXYCYCLINE 50 MG CAP PO SCH (08:02)
[2017-07-10] MEDS: amLODIPine 10 MG TAB PO SCH (08:02)
[2017-07-10 08:42] LABS: Anisocytosis Slight; Basophils % (A) 0 %; Eosinophils # (A) 0.5 k/uL (0-0.7); Eosinophils % (A) 8 %; HCT 28.7 % (39.0-53.0); Hypochromasia Slight; Lymphocytes # (A) 1.2 k/uL (1.0-4.8); Lymphocytes % (A) 21 %; MCH 29.3 pg (25.0-35.0); MCHC 31.8 g/dL (31.0-37.0); MCV 92.2 fL (80.0-100.0); Mean Platelet Volume 7.2; Monocytes # (A) 0.6 k/uL (0-1.0); Monocytes % (A) 9 %; Neutrophils # (A) 3.5 k/uL (1.3-7.7); Neutrophils % (A) 59 %; Platelet Count 208 k/uL (150-450); Poikilocytosis Slight; RBC 3.11 m/uL (4.30-5.90); RDW 16.9 % (11.5-15.5); WBC 5.9 k/uL (3.8-10.6)
[2017-07-10 08:43] LABS: Calcium 8.5 mg/dL (8.4-10.2); Potassium 3.7 mmol/L (3.5-5.1); Total Bilirubin 0.2 mg/dL (0.2-1.3); Total Protein 7.3 g/dL (6.3-8.2)
[2017-07-10 08:52] LABS: HGB 9.1 gm/dL (13.0-17.5)
[2017-07-10 11:11] LABS: Glucose,Whole Blood 144 mg/dL (75-99)
--- NOTE | 2017-07-10 12:10 | P.PN ---
Subjective Progress Note Date: 07/10/17 Principal diagnosis: End-stage renal disease, anemia of chronic disease, diabetic ulcer to the right foot Patient presented to the emergency room on 07/07/2017 chief complaint weakness. Patient wished hospitalization from 05/20/2017 until 06/01/2017 take secondary to peritonitis patient had been undergoing 100 perineal dialysis at that time. Patient has also been seeing [facility]. [facility] saw him 2 days ago at which time his wound was debrided and dressing was changed, patient is currently being treated for end-stage renal disease coronary artery disease diabetes mellitus and recent hemoglobin A1c of 9.9 DVT and gastroesophageal reflux disease hyperlipidemia myocardial infarction by history peripheral vascular disease left below knee amputation and a right partial foot amputation. And currently has complaints consistent with diabetic gastroparesis Objective - Vital Signs Vital signs: Vital Signs Temp 98.7 F 07/10/17 07:00 Pulse 79 07/10/17 07:00 Resp 16 07/10/17 07:00 BP 162/85 07/10/17 07:00 Pulse Ox 97 07/10/17 07:00 Intake & Output 07/09/17 07/10/17 07/10/17 18:59 06:59 18:59 Intake Total 1490 240 240 Output Total 150 Balance 1340 240 240 Weight 86.183 kg Intake: Intake, IV Titration 160 240 Amount Sodium Chloride 0.9% 1, 160 240 000 ml @ 20 mls/hr IV . Q24H [facility] Rx#:[id number] Oral 710 240 Blood Product 620 Rc As-1 Unit 310 [id number] Output: Urine 150 Other: Voiding Method Bedside Commode Bedside Commode Urinal Urinal - Exam General: [Patient awake, alert and oriented times 3. Patient in no acute distress.] HEENT: [PERRL. EOMI. No pharyngeal erythema or exudate.] Neck: [No adenopathy.] Cardiac: [Heart regular in rate and rhythm. No S3. No S4. No clicks, rubs. No murmur.] Lungs: [Clear to auscultation bilaterally.] Abdomen: [No mass. No organomegaly. Bowel sounds presnt and normoactive in all 4 quadrants.] Extremes: [No edema no cyanosis no claudication normal pulses] left BKA, right partial foot amputation with ulcer to the right foot : [] Musculoskeletal: [No joint erythema, edema or tenderness.] Skin: [No rash.] Neurologic: [No lateralizing deficits. CN II - XII grossly intact.] Lymphatic: [No adenopathy.] - Labs CBC & Chem 7: 07/10/17 08:02 07/10/17 08:02 Labs: Abnormal Lab Results - Last 24 Hours (Table) 07/09/17 07/09/17 07/09/17 Range/Units 09:01 12:01 16:51 RBC (4.30-5.90) m/uL Hgb (13.0-17.5) gm/dL Hct (39.0-53.0) % RDW (11.5-15.5) % Sodium (137-145) mmol/L Chloride (98-107) mmol/L Creatinine (0.66-1.25) mg/dL Glucose (74-99) mg/dL POC Glucose (mg/dL) 142 H 123 H (75-99) mg/dL Albumin (3.5-5.0) g/dL Crossmatch See Detail 07/09/17 07/10/17 07/10/17 Range/Units 20:13 07:04 08:02 RBC 3.11 L (4.30-5.90) m/uL Hgb 9.1 L D (13.0-17.5) gm/dL Hct 28.7 L (39.0-53.0) % RDW 16.9 H (11.5-15.5) % Sodium (137-145) mmol/L Chloride (98-107) mmol/L Creatinine (0.66-1.25) mg/dL Glucose (74-99) mg/dL POC Glucose (mg/dL) 131 H 136 H (75-99) mg/dL Albumin (3.5-5.0) g/dL Crossmatch 07/10/17 07/10/17 Range/Units 08:02 11:08 RBC (4.30-5.90) m/uL Hgb (13.0-17.5) gm/dL Hct (39.0-53.0) % RDW (11.5-15.5) % Sodium 131 L (137-145) mmol/L Chloride 95 L (98-107) mmol/L Creatinine 4.80 H (0.66-1.25) mg/dL Glucose 156 H (74-99) mg/dL POC Glucose (mg/dL) 144 H (75-99) mg/dL Albumin 3.0 L (3.5-5.0) g/dL Crossmatch Microbiology - Last 24 Hours (Table) 07/08/17 00:55 Urine Culture - Final Urine,Voided Assessment and Plan (1) Vomiting Narrative/Plan: Probably secondary to diabetic gastroparesis which has all but resolved Current Visit: Yes Status: Acute Code(s): R11.10 - VOMITING, UNSPECIFIED SNOMED Code(s): 820450400 (2) Weakness Narrative/Plan: Secondary to nausea and vomiting, secondary to anemia of chronic disease Patient was transfused with one unit of packed red cells patient is making reticulocytes Weakness appears to have improved appetite appears to have improved nausea and vomiting have all but resolved Current Visit: Yes Status: Acute Code(s): R53.1 - WEAKNESS SNOMED Code(s) : 13086944 (3) Abdominal pain Narrative/Plan: Abdominal pain secondary to diabetic gastroparesis and chronic cholecystitis Symptoms have improved patient is tolerating diet better Current Visit: No Status: Acute Code(s): R10.9 - UNSPECIFIED ABDOMINAL PAIN SNOMED Code(s): 65757847 (4) Acute encephalopathy Narrative/Plan: Resolved Current Visit: No Status: Acute Code(s): G93.40 - ENCEPHALOPATHY, UNSPECIFIED SNOMED Code(s): 1504287 Plan: Anticipate discharging patient back home within 24-48 hours if condition continues to improve Time with Patient: Greater than 30
[2017-07-10] MEDS: COLLAGENASE 250 UNIT/GM OINTMENT 30 GM TUBE TOPICAL SCH (12:56)
[2017-07-10] MEDS: MUPIROCIN 2% OINT 22 GM TUBE TOPICAL SCH (12:56)
--- NOTE | 2017-07-10 13:26 | P.PN ---
Subjective Progress Note Date: 07/10/17 Principal diagnosis: This is a 46-year-old male known with ESRD on dialysis Wednesday with came in because of diabetic gastroparesis and nausea vomiting. This morning he is feeling little bit better was able to eat and keep his food down. Has fair appetite. No bowel movement yet. Does have abdominal discomfort because of the vomiting. No fever chills. No chest pain cough shortness of breath. He was dialyzed yesterday last and did well did not have any symptoms during the dialysis session. Objective - Vital Signs Vital signs: Vital Signs Temp 98.7 F 07/10/17 07:00 Pulse 79 07/10/17 07:00 Resp 16 07/10/17 07:00 BP 162/85 07/10/17 07:00 Pulse Ox 97 07/10/17 07:00 Intake & Output 07/09/17 07/10/17 07/10/17 18:59 06:59 18:59 Intake Total 1490 240 240 Output Total 150 Balance 1340 240 240 Weight 86.183 kg Intake: Intake, IV Titration 160 240 Amount Sodium Chloride 0.9% 1, 160 240 000 ml @ 20 mls/hr IV . Q24H [facility] Rx#:[id number] Oral 710 240 Blood Product 620 Rc As-1 Unit 310 [id number] Output: Urine 150 Other: Voiding Method Bedside Commode Bedside Commode Urinal Urinal On examination is awake alert oriented comfortable There is no JVP neck is supple no facial asymmetry Lungs are clear to auscultation percussion there were few coarse crackle at bases that clear with cough. Heart sounds are unremarkable for any murmur gallop rub gallop Abdomen soft nontender. No masses felt no ascites. Extremity exam reveals right transmetatarsal amputation and left BKA remote. Neurologically awake alert oriented. Start - Labs CBC & Chem 7: 07/10/17 08:02 07/10/17 08:02 Labs: Abnormal Lab Results - Last 24 Hours (Table) 07/09/17 07/09/17 07/09/17 Range/Units 06:46 09:01 16:51 RBC (4.30-5.90) m/uL Hgb (13.0-17.5) gm/dL Hct (39.0-53.0) % RDW (11.5-15.5) % Sodium (137-145) mmol/L Chloride (98-107) mmol/L Creatinine (0.66-1.25) mg/dL Glucose (74-99) mg/dL POC Glucose (mg/dL) 123 H (75-99) mg/dL Iron 27 L (65-175) ug/dL TIBC 226 L (228-460) ug/dL Iron Saturation 11.95 L (15.00-50.00) Albumin (3.5-5.0) g/dL Crossmatch See Detail 07/09/17 07/10/17 07/10/17 Range/Units 20:13 07:04 08:02 RBC 3.11 L (4.30-5.90) m/uL Hgb 9.1 L D (13.0-17.5) gm/dL Hct 28.7 L (39.0-53.0) % RDW 16.9 H (11.5-15.5) % Sodium (137-145) mmol/L Chloride (98-107) mmol/L Creatinine (0.66-1.25) mg/dL Glucose (74-99) mg/dL POC Glucose (mg/dL) 131 H 136 H (75-99) mg/dL Iron (65-175) ug/dL TIBC (228-460) ug/dL Iron Saturation (15.00-50.00) Albumin (3.5-5.0) g/dL Crossmatch 07/10/17 07/10/17 Range/Units 08:02 11:08 RBC (4.30-5.90) m/uL Hgb (13.0-17.5) gm/dL Hct (39.0-53.0) % RDW (11.5-15.5) % Sodium 131 L (137-145) mmol/L Chloride 95 L (98-107) mmol/L Creatinine 4.80 H (0.66-1.25) mg/dL Glucose 156 H (74-99) mg/dL POC Glucose (mg/dL) 144 H (75-99) mg/dL Iron (65-175) ug/dL TIBC (228-460) ug/dL Iron Saturation (15.00-50.00) Albumin 3.0 L (3.5-5.0) g/dL Crossmatch Assessment and Plan Assessment: Impression 1. ESRD on dialysis Wednesday. Last dialysis yesterday Wednesday tolerated well. 2. Admitted with nausea vomiting diabetic gastroparesis improving slowly. 3. Mild hyponatremia from ESRD and dilution. 4. Calcium normal, phosphorus not available. 5. Hemoglobin is 9.1, anemia from chronic kidney disease and iron deficiency. 6. Iron deficiency saturation 11% dated 07/09/2017. Recommendation. 1. Will give him IV Ferrlecit 125 mg 1 dose today and 1 dose tomorrow. He can be discharged
[2017-07-10] MEDS: PROCHLORPERAZINE 5 MG TAB PO PRN ×2 (14:21→21:31)
[2017-07-10] MEDS: ONDANSETRON 4 MG/2 ML VIAL IVP PRN (16:04)
[2017-07-10 17:21] LABS: Glucose,Whole Blood 117 mg/dL (75-99)
[2017-07-10] MEDS: TAMSULOSIN 0.4 MG CAP.ER.24H PO SCH (17:29)
[2017-07-10] MEDS ORDERED: VANCOMYCIN IV PER PHARMACY 1 EACH MISC MISCELLANE PRN (19:31)
--- NOTE | 2017-07-10 19:31 | P.CONS ---
History of Present Illness - Reason for Consult Consult date: 07/10/17 - Chief Complaint weakness - History of Present Illness 46-year-old male with long-standing history of diabetes mellitus who has multiple end organ complications that include peripheral vascular disease with prior amputation as well as end-stage renal disease on hemodialysis. Early this year he had great difficulty with sepsis and had evidence of peritonitis related to his peritoneal dialysis. Staph aureus sepsis had occurred and eventually the dialysis catheter was removed and he has now been treated with hemodialysis. Isn't following the wound healing Center for a diabetic foot ulceration, most recently seen 07/06/2017 for debridement. Patient had evidence of a significant infection to the site and antibiotic therapy was started with doxycycline. Patient has a known history of diabetic gastroparesis. The patient relates in the days following he's had a flare of his gastroparesis and has had active emesis today. He is denying high-grade fever chills or rigors or sweats. But of course feels very poorly because of the emesis after each meal that he is suffering from. Has noticed no gastrointestinal distress related to the starting of the doxycycline but has had worsening of his gastroparesis. He is denying fevers, chills or rigors. Generally feels poorly. Review of Systems HEENT:Denies headache or acute visual change. Denies sinus or mouth discomforts. Denies neck stiffness or pain. Denies significant oral cavity pain. Denies difficulty on swallowing. Lungs: Denies significant shortness of breath, cough, sputum production, or hemoptysis. Cardiovascular: Denies significant shortness of breath, chest pain, chest wall pain, orthopnea, dyspnea on exertion, syncope Gastrointestinal:as per the HPI Musculoskeletal: denies significant myalgias or arthralgias. No new joint swelling. Denies new back pain. Skin: Denies new rash or lesions. No new ulcers or wounds are related.. Neuro: Denies headache or visual change. Denies any new onset weakness or difficulty with ambulation. Denies falls or seizures. Psychiatric:Denies anxiety or depression. Endocrine: this have fatigue and some weight loss Past Medical History Past Medical History: Coronary Artery Disease (CAD), Diabetes Mellitus, Dialysis , Deep Vein Thrombosis (DVT), GERD/Reflux, Hyperlipidemia, Hypertension, Myocardial Infarction ([place]), Renal Disease, Seizure Disorder, Thyroid Disorder Additional Past Medical History / Comment(s): Pt recently admitted to [facility] on with peritonitis PD cath removed and hemodialysis cath placed, possible TIA with L sided weakness which resolved, moderate protein calorie malnourishment. Other HX: Diabetic gastroparesis, end stage renal disease currently on peritoneal dialysis , peripheral neuropathy, chronic anemia , compression fracture of the vertebral, blood clot from IV line in the upper extremity on the left, insulin-dependent diabetes mellitus type II, gastritis , peripheral vascular disease with previous amputation involving a below-knee amputation on the left and right partial foot amputation, current bernabe grade II diabetic ulcer plantar R foot and lateral R leg, MRSA R foot. Last Myocardial Infarction Date:: 2012 History of Any Multi-Drug Resistant Organisms: MRSA Year Discovered:: 07/01/17 MDRO Source:: RIGHT FOOT Past Surgical History: Orthopedic Surgery Additional Past Surgical History / Comment(s): PD catheter now removed, HD catheter, I&D R foot/lateral R leg, amputation right toes, BKA right leg 2013, GEORGE CATARACTS,VITRECTOMY,GEORGE RETINAL SX Past Anesthesia/Blood Transfusion Reactions: No Reported Reaction Additional Past Anesthesia/Blood Transfusion Reaction / Comm: Pt has received blood without reaction. Smoking Status: Never smoker - Past Family History Father Family Medical History: Cancer Additional Family Medical History / Comment(s): CANCER FROM [employer] [place] Mother History Unknown: Yes Family Medical History: Cancer, Supraventricular Tachycardia (SVT) Additional Family Medical History / Comment(s): LUNG CANCER(SMOKER) Medications and Allergies Home Medications and Allergies Comment(s): Current Medications Acetaminophen/Codeine Phosphate (Tylenol #3) 1 each PO Q4HR PRN PRN Reason: Pain Last Admin: 07/10/17 04:53 Dose: 1 each Amiodarone HCl (Cordarone) 200 mg PO BID [facility] Last Admin: 07/10/17 08:01 Dose: 200 mg Amlodipine Besylate (Norvasc) 10 mg PO DAILY [facility] Last Admin: 07/10/17 08:02 Dose: 10 mg Atorvastatin Calcium (Lipitor) 80 mg PO HS [facility] Last Admin: 07/09/17 20:50 Dose: 80 mg Calcium Acetate (Phoslo) 667 mg PO TID-W/MEALS [facility] Last Admin: 07/10/17 17:29 Dose: 667 mg Collagenase (Santyl) 1 applic TOPICAL DAILY [facility] Last Admin: 07/10/17 12:56 Dose: 1 applic Darbepoetin Blaine (Aranesp) 40 mcg SQ Q7D [facility] Last Admin: 07/08/17 18:31 Dose: 40 mcg Divalproex Sodium (Depakote) 250 mg PO TID@0800,1200,1800 [facility] Last Admin: 07/10/17 17:29 Dose: 250 mg Sodium Chloride (Saline 0.9%) 1,000 mls @ 20 mls/hr IV .Q24H [facility] Last Admin: 07/10/17 04:51 Dose: 20 mls/hr Ferric Sodium Gluconate 125 mg (/ Sodium Chloride) 110 mls @ 100 mls/hr IVPB DAILY [facility] Insulin Aspart (Novolog) 0 unit SQ ACHS [facility] PRN Reason: Protocol Last Admin: 07/10/17 17:23 Dose: Not Given Levetiracetam (Keppra) 750 mg PO BID [facility] Last Admin: 07/10/17 08:03 Dose: 750 mg Levothyroxine Sodium (Synthroid) 25 mcg PO DAILY@0630 [facility] Last Admin: 07/10/17 04:51 Dose: 25 mcg Multivit/Ca Carb/B Cmplx/FA/Prenat (Nephrocaps) 1 each PO TID [facility] Last Admin: 07/10/17 17:29 Dose: 1 each Mupirocin (Bactroban Oint) 1 applic TOPICAL DAILY [facility] Last Admin: 07/10/17 12:56 Dose: 1 applic Naloxone HCl (Narcan) 0.2 mg IV Q2M PRN PRN Reason: Opioid Reversal Ondansetron HCl (Zofran) 8 mg IVP Q6HR PRN PRN Reason: Nausea And Vomiting Last Admin: 07/10/17 16:04 Dose: 8 mg Pantoprazole Sodium (Protonix) 40 mg PO AC-BRKFST [facility] Prochlorperazine Maleate (Compazine) 5 mg PO Q8HR PRN PRN Reason: Nausea And Vomiting Last Admin: 07/10/17 14:21 Dose: 5 mg Sevelamer Carbonate (Renvela) 800 mg PO AC-TID [facility] Last Admin: 07/10/17 17:29 Dose: 800 mg Tamsulosin HCl (Flomax) 0.4 mg PO PC-SUPPER [facility] Last Admin: 07/10/17 17:29 Dose: 0.4 mg Thiamine HCl (Vitamin B-1) 100 mg PO DAILY [facility] Last Admin: 07/10/17 08:02 Dose: 100 mg Home Medications Medication Instructions Recorded Confirmed Type Atorvastatin [Lipitor] 80 mg PO HS 04/08/15 07/08/17 History Calcium Acetate [PhosLo] 667 mg PO TID-W/MEALS 04/08/15 07/08/17 History Insulin Glargine [Lantus] 12 unit SQ HS 04/08/15 07/08/17 History Levothyroxine Sodium [Synthroid] 25 mcg PO DAILY 04/08/15 07/08/17 History Sevelamer [Renvela] 800 mg PO AC-TID 01/20/16 07/08/17 History Amiodarone [Cordarone] 200 mg PO BID 05/20/17 07/08/17 History Dilcia Jordan 1 tab PO TID 05/20/17 07/08/17 History Tamsulosin [Flomax] 0.4 mg PO PC-SUPPER 05/20/17 07/08/17 History Thiamine [Vitamin B-1] 100 mg PO DAILY 05/20/17 07/08/17 History amLODIPine [Norvasc] 10 mg PO DAILY 05/20/17 07/08/17 History levETIRAcetam [Keppra] 750 mg PO BID #60 tab 06/01/17 07/08/17 Rx Divalproex [Depakote] 250 mg PO TID@0800,1200,1800 06/10/17 07/08/17 History Doxycycline Hyclate 100 mg PO BID #28 tab 07/06/17 07/08/17 Rx Insulin Lispro [humaLOG Kwikpen] See Protocol SQ AC-TID 07/08/17 07/08/17 History Allergies Allergy/AdvReac Type Severity Reaction Status Date / Time No Known Allergies Allergy Verified 07/08/17 09:58 Physical Exam Vitals: Vital Signs Temp Pulse Resp BP Pulse Ox 07/10/17 14:32 98.3 F 73 20 147/80 94 L 07/10/17 07:00 98.7 F 79 16 162/85 97 07/10/17 01:00 97.9 F 77 16 154/90 97 07/09/17 21:00 98.2 F 76 16 152/85 93 L Intake and Output 07/10/17 07/10/17 07/10/17 06:59 14:59 22:59 Intake Total 180 300 Output Total 100 Balance 180 200 Intake: Intake, IV Titration 180 60 Amount Sodium Chloride 0.9% 1, 180 60 000 ml @ 20 mls/hr IV . Q24H [facility] Rx#:[id number] Oral 240 Output: Emesis 100 Other: Voiding Method Bedside Commode Urinal HEENT: Anicteric conjunctiva are pink and moist nasal mucosa grossly intact without significant lesions, there is no thrush. Neck: The neck is supple without significant lymphadenopathy or thyromegaly. Lungs: Good bilateral air entry without significant crackles or wheezing. There is no significant bronchial sounds. There is no egophony or dullness. Heart: Regular rate and rhythm with an audible S1-S2, no S3 no S4. There is no significant murmur click or rub, PMI was nondisplaced. Abdomen: the abdomen is soft his minimal tenderness in the epigastrium. No guarding or rebound. No palpable masses or organomegaly. Extremities: The upper extremities have excellent pulses they are symmetric, no significant petechiae or telangiectasia. No splinter hemorrhages were noted. residual limb to the left is evidence of dry skin but no open ulcerations are seen. Right lower extremity has evidence of the ulcerations including the right lateral leg at0.4 x 0.4 x 0.1 cm, right foot plantar measuring at 5 x 6 x 0.2 cm. Neuro: Awake alert oriented to person place and time. There are no acute new gross focal sensory motor deficits.has peripheral neuropathy noted. Results CBC & Chem 7: 07/10/17 08:02 07/10/17 08:02 Labs: Abnormal Lab Results - Last 24 Hours (Table) 07/09/17 07/09/17 07/10/17 Range/Units 06:46 20:13 07:04 RBC (4.30-5.90) m/uL Hgb (13.0-17.5) gm/dL Hct (39.0-53.0) % RDW (11.5-15.5) % Sodium (137-145) mmol/L Chloride (98-107) mmol/L Creatinine (0.66-1.25) mg/dL Glucose (74-99) mg/dL POC Glucose (mg/dL) 131 H 136 H (75-99) mg/dL Iron 27 L (65-175) ug/dL TIBC 226 L (228-460) ug/dL Iron Saturation 11.95 L (15.00-50.00) Albumin (3.5-5.0) g/dL 07/10/17 07/10/17 07/10/17 Range/Units 08:02 08:02 11:08 RBC 3.11 L (4.30-5.90) m/uL Hgb 9.1 L D (13.0-17.5) gm/dL Hct 28.7 L (39.0-53.0) % RDW 16.9 H (11.5-15.5) % Sodium 131 L (137-145) mmol/L Chloride 95 L (98-107) mmol/L Creatinine 4.80 H (0.66-1.25) mg/dL Glucose 156 H (74-99) mg/dL POC Glucose (mg/dL) 144 H (75-99) mg/dL Iron (65-175) ug/dL TIBC (228-460) ug/dL Iron Saturation (15.00-50.00) Albumin 3.0 L (3.5-5.0) g/dL 07/10/17 Range/Units 17:19 RBC (4.30-5.90) m/uL Hgb (13.0-17.5) gm/dL Hct (39.0-53.0) % RDW (11.5-15.5) % Sodium (137-145) mmol/L Chloride (98-107) mmol/L Creatinine (0.66-1.25) mg/dL Glucose (74-99) mg/dL POC Glucose (mg/dL) 117 H (75-99) mg/dL Iron (65-175) ug/dL TIBC (228-460) ug/dL Iron Saturation (15.00-50.00) Albumin (3.5-5.0) g/dL Laboratory Results WBC 5.9 k/uL (3.8-10.6) 07/10/17 08:02 RBC 3.11 m/uL (4.30-5.90) L 07/10/17 08:02 Hgb 9.1 gm/dL (13.0-17.5) L D 07/10/17 08:02 Hct 28.7 % (39.0-53.0) L 07/10/17 08:02 MCV 92.2 fL (80.0-100.0) 07/10/17 08:02 MCH 29.3 pg (25.0-35.0) 07/10/17 08:02 MCHC 31.8 g/dL (31.0-37.0) 07/10/17 08:02 RDW 16.9 % (11.5-15.5) H 07/10/17 08:02 Plt Count 208 k/uL (150-450) 07/10/17 08:02 Neutrophils % 59 % 07/10/17 08:02 Lymphocytes % 21 % 07/10/17 08:02 Monocytes % 9 % 07/10/17 08:02 Eosinophils % 8 % 07/10/17 08:02 Basophils % 0 % 07/10/17 08:02 Neutrophils # 3.5 k/uL (1.3-7.7) 07/10/17 08:02 Lymphocytes # 1.2 k/uL (1.0-4.8) 07/10/17 08:02 Monocytes # 0.6 k/uL (0-1.0) 07/10/17 08:02 Eosinophils # 0.5 k/uL (0-0.7) 07/10/17 08:02 Basophils # 0.0 k/uL (0-0.2) 07/10/17 08:02 Hypochromasia Slight 07/10/17 08:02 Poikilocytosis Slight 07/10/17 08:02 Anisocytosis Slight 07/10/17 08:02 Retic Count 3.1 % (0.5-2.0) H 07/08/17 15:43 PT 10.0 sec (9.0-12.0) 07/07/17 22:09 INR 1.0 (<1.2) 07/07/17 22:09 APTT 23.3 sec (22.0-30.0) 07/07/17 22:09 Sodium 131 mmol/L (137-145) L 07/10/17 08:02 Potassium 3.7 mmol/L (3.5-5.1) 07/10/17 08:02 Chloride 95 mmol/L (98-107) L 07/10/17 08:02 Carbon Dioxide 28 mmol/L (22-30) 07/10/17 08:02 Anion Gap 8 mmol/L 07/10/17 08:02 BUN 14 mg/dL (9-20) 07/10/17 08:02 Creatinine 4.80 mg/dL (0.66-1.25) H 07/10/17 08:02 Est GFR (MDRD) Af Amer 16 (>60 ml/min/1.73 sqM) 07/10/17 08:02 Est GFR (MDRD) Non-Af 13 (>60 ml/min/1.73 sqM) 07/10/17 08:02 Glucose 156 mg/dL (74-99) H 07/10/17 08:02 POC Glucose (mg/dL) 117 mg/dL (75-99) H 07/10/17 17:19 POC Glu Bulldozer/Loader/Compactor/Scraper ID [place] 07/10/17 17:[address] Glu mg/dL 134 07/07/17 22:09 Hemoglobin A1c 6.3 % (4.0-6.0) H 07/07/17 22:09 Plasma Lactic Acid Massimo 1.7 mmol/L (0.7-2.0) 07/07/17 22:09 Calcium 8.5 mg/dL (8.4-10.2) 07/10/17 08:02 Magnesium 2.0 mg/dL (1.6-2.3) 07/09/17 06:46 Iron 27 ug/dL (65-175) L 07/09/17 06:46 TIBC 226 ug/dL (228-460) L 07/09/17 06:46 Iron Saturation 11.95 (15.00-50.00) L 07/09/17 06:46 Total Bilirubin 0.2 mg/dL (0.2-1.3) 07/10/17 08:02 AST 22 U/L (17-59) 07/10/17 08:02 ALT 27 U/L (21-72) 07/10/17 08:02 Alkaline Phosphatase 108 U/L (38-126) 07/10/17 08:02 Total Creatine Kinase 93 U/L (55-170) 07/07/17 22:09 CK-MB (CK-2) 4.5 ng/mL (0.0-2.4) H* 07/07/17 22:09 CK-MB (CK-2) Rel Index 4.8 07/07/17 22:09 Troponin I <0.012 ng/mL (0.000-0.034) 07/07/17 22:09 Total Protein 7.3 g/dL (6.3-8.2) 07/10/17 08:02 Albumin 3.0 g/dL (3.5-5.0) L 07/10/17 08:02 Urine Color Yellow 07/08/17 00:55 Urine Appearance Cloudy (Clear) 07/08/17 00:55 Urine pH 8.5 (5.0-8.0) H 07/08/17 00:55 Ur Specific [place] 1.022 (1.001-1.035) 07/08/17 00:55 Urine Protein 4+ (Negative) H 07/08/17 00:55 Urine Glucose (UA) 3+ (Negative) H 07/08/17 00:55 Urine Ketones Negative (Negative) 07/08/17 00:55 Urine Blood Trace (Negative) H 07/08/17 00:55 Urine Nitrite Negative (Negative) 07/08/17 00:55 Urine Bilirubin Negative (Negative) 07/08/17 00:55 Urine Urobilinogen <2.0 mg/dL (<2.0) 07/08/17 00:55 Ur Leukocyte Esterase Negative (Negative) 07/08/17 00:55 Urine RBC 11 /hpf (0-5) H 07/08/17 00:55 Urine WBC 4 /hpf (0-5) 07/08/17 00:55 Ur Squamous Epith Cells 1 /hpf (0-4) 07/08/17 00:55 Urine Bacteria Rare /hpf (None) H 07/08/17 00:55 Hyaline Casts 11 /lpf (0-2) H 07/08/17 00:55 Urine Mucus Few /hpf (None) H 07/08/17 00:55 Blood Type A Positive 07/09/17 09:01 Blood Type Recheck No 07/09/17 09:01 Antibody Screen NEGATIVE 07/09/17 09:01 Crossmatch See Detail 07/09/17 09:01 Spec Expiration Date 07/12/2017 - 2301 07/09/17 09:01 Microbiology 07/08/17 00:55 Urine,Voided Urine Culture - Final Assessment and Plan (1) Vomiting Narrative/Plan: 46-year-old male presents to Hospital feeling very poorly with weakness and ongoing nausea and emesis. Is not is a long-standing history diabetes mellitus with multiple complications that included chronic renal failure requiring hemodialysis as well as peripheral vascular disease. Isn't following wound healing Center for right lower extremity ulcerations. Continue Santyl to the open ulcerations moistened gauze and wrap them into place. Continue to offload the sites. Patient evidence ofenterococcus and MRSA at the foot wound ulcer site. Antibiotic therapy was started with doxycycline. However appears to be intolerant to this with much worsening of his gastroparesis with nausea and emesis. consequently doxycycline was discontinued. Vancomycin will be started for now. he is following nephrology will see hemodialysis per their protocol. We will monitor. Current Visit: Yes Status: Acute Code(s): R11.10 - VOMITING, UNSPECIFIED SNOMED Code(s): 332158846 (2) Chronic renal failure, stage 4 (severe) Current Visit: No Status: Acute Code(s): N18.4 - CHRONIC KIDNEY DISEASE, STAGE 4 (SEVERE) SNOMED Code(s): 67105306 (3) Diabetes mellitus type 2 with complications, uncontrolled Current Visit: Yes Status: Acute Code(s): E11.8 - TYPE 2 DIABETES MELLITUS WITH UNSPECIFIED COMPLICATIONS; E11.65 - TYPE 2 DIABETES MELLITUS WITH HYPERGLYCEMIA SNOMED Code(s): 491726004 (4) Diabetic ulcer of right foot associated with diabetes mellitus due to underlying condition, with fat layer exposed Current Visit: Yes Status: Acute Code(s): E08.621 - DIABETES MELLITUS DUE TO UNDERLYING CONDITION W FOOT ULCER; L97.512 - NON-PRS CHRONIC ULCER OTH PRT RIGHT FOOT W FAT LAYER EXPOSED SNOMED Code(s): 642646853
[2017-07-10] MEDS ORDERED: ARTIFICIAL TEARS-HYPROMELLOSE DROPS 15 ML BTL BOTH EYES PRN (20:11)
[2017-07-10 20:31] LABS: Glucose,Whole Blood 136 mg/dL (75-99)
[2017-07-10] MEDS ORDERED: VANCOMYCIN 1,750 MG in SODIUM CHLORIDE 0.9% 250 ML IVPB ONE (21:00)
[2017-07-10] MEDS: ATORVASTATIN 80 MG TAB PO SCH (22:07)
[2017-07-11 00:48] LABS: Glucose,Whole Blood 121 mg/dL (75-99)
[2017-07-11] MEDS: SODIUM CHLORIDE 0.9% 1,000 ML IV SCH (04:20)
[2017-07-11] MEDS: LEVOTHYROXINE 25 MCG TAB PO SCH (05:53)
[2017-07-11 06:49] LABS: Glucose,Whole Blood 132 mg/dL (75-99)
[2017-07-11] MEDS: INSULIN ASPART 100 UNIT/ML 1 ML 10 ML VIAL SQ SCH ×3 (07:23→16:46)
[2017-07-11] MEDS: SEVELAMER 800 MG TAB PO SCH ×2 (07:23→13:38)
[2017-07-11] MEDS: AMIODARONE 200 MG TAB PO SCH (07:24)
[2017-07-11] MEDS: FOLIC ACID-VIT B COMPLEX-VIT C 1 CAP PO SCH ×2 (07:24→14:56)
[2017-07-11] MEDS: DIVALPROEX 250 MG TABLET.DR PO SCH ×3 (07:24→17:44)
[2017-07-11] MEDS: amLODIPine 10 MG TAB PO SCH (07:25)
[2017-07-11] MEDS: CALCIUM ACETATE 667 MG CAP PO SCH ×2 (07:25→13:38)
[2017-07-11] MEDS: THIAMINE 100 MG TAB PO SCH (07:25)
[2017-07-11] MEDS: PANTOPRAZOLE 40 MG TABLET PO SCH (07:25)
[2017-07-11] MEDS: ONDANSETRON 4 MG/2 ML VIAL IVP PRN (07:33)
[2017-07-11 08:34] LABS: Anisocytosis Slight; Basophils % (A) 1 %; Eosinophils # (A) 0.5 k/uL (0-0.7); Eosinophils % (A) 8 %; HCT 29.3 % (39.0-53.0); HGB 9.4 gm/dL (13.0-17.5); Lymphocytes # (A) 1.3 k/uL (1.0-4.8); Lymphocytes % (A) 21 %; MCH 29.5 pg (25.0-35.0); MCHC 32.2 g/dL (31.0-37.0); MCV 91.6 fL (80.0-100.0); Mean Platelet Volume 7.5; Monocytes # (A) 0.6 k/uL (0-1.0); Monocytes % (A) 9 %; Neutrophils # (A) 3.7 k/uL (1.3-7.7); Neutrophils % (A) 58 %; Platelet Count 180 k/uL (150-450); Poikilocytosis Slight; RDW 17.3 % (11.5-15.5); WBC 6.4 k/uL (3.8-10.6)
[2017-07-11] MEDS ORDERED: SODIUM FERRIC GLUCONAT-SUCROSE 125 MG in SODIUM CHLORIDE 0.9% 100 ML IVPB SCH (09:00)
[2017-07-11 09:30] LABS: Calcium 8.6 mg/dL (8.4-10.2); Total Bilirubin 0.3 mg/dL (0.2-1.3); Total Protein 7.1 g/dL (6.3-8.2)
[2017-07-11 11:41] LABS: Glucose,Whole Blood 150 mg/dL (75-99)
--- NOTE | 2017-07-11 12:23 | P.PN ---
Subjective Progress Note Date: 07/11/17 Principal diagnosis: End-stage renal disease, anemia of chronic disease, diabetic ulcer to the right foot Patient presented to the emergency room on 07/07/2017 chief complaint weakness. Patient wished hospitalization from 05/20/2017 until 06/01/2017 take secondary to peritonitis patient had been undergoing 100 perineal dialysis at that time. Patient has also been seeing Dr. Sy in the [facility] saw him 2 days ago at which time his wound was debrided and dressing was changed, patient is currently being treated for end-stage renal disease coronary artery disease diabetes mellitus and recent hemoglobin A1c of 9.9 DVT and gastroesophageal reflux disease hyperlipidemia myocardial infarction by history peripheral vascular disease left below knee amputation and a right partial foot amputation. And currently has complaints consistent with diabetic gastroparesis. Patient developed nausea and vomiting probably secondary to the diabetic gastroparesis Mr. evening patient was also had Zofran 8 mg every 6 hours added to his nausea and vomiting regimen to attempt to reduce the amount of nausea and Objective - Vital Signs Vital signs: Vital Signs Temp 98.0 F 07/11/17 07:37 Pulse 70 07/11/17 07:37 Resp 16 07/11/17 07:37 BP 167/96 07/11/17 07:37 Pulse Ox 96 07/11/17 01:25 Intake & Output 07/10/17 07/11/17 07/11/17 18:59 06:59 18:59 Intake Total 300 640 Output Total 100 Balance 200 640 Intake: Intake, IV Titration 60 440 Amount Sodium Chloride 0.9% 1, 60 190 000 ml @ 20 mls/hr IV . Q24H [facility] Rx#:[id number] Vancomycin 1,750 mg In 250 Sodium Chloride 0.9% 250 ml @ 125 mls/hr IVPB ONCE ONE Rx#:[id number] Oral 240 200 Output: Emesis 100 Other: Voiding Method Bedside Commode Urinal # Voids 1 - Exam General: [Patient awake, alert and oriented times 3. Patient in no acute distress.] HEENT: [PERRL. EOMI. No pharyngeal erythema or exudate.] Neck: [No adenopathy.] Cardiac: [Heart regular in rate and rhythm. No S3. No S4. No clicks, rubs. No murmur.] Lungs: [Clear to auscultation bilaterally.] Abdomen: [No mass. No organomegaly. Bowel sounds presnt and normoactive in all 4 quadrants.] Extremes: [No edema no cyanosis no claudication normal pulses] left BKA, right partial foot amputation with ulcer to the right foot : [] Musculoskeletal: [No joint erythema, edema or tenderness.] Skin: [No rash.] Neurologic: [No lateralizing deficits. CN II - XII grossly intact.] Lymphatic: [No adenopathy.] - Labs CBC & Chem 7: 07/11/17 07:55 07/11/17 07:55 Labs: Abnormal Lab Results - Last 24 Hours (Table) 07/09/17 07/10/17 07/10/17 Range/Units 06:46 08:02 08:02 RBC (4.30-5.90) m/uL Hgb (13.0-17.5) gm/dL Hct (39.0-53.0) % RDW (11.5-15.5) % ESR 77 H (0-15) mm/hr Sodium (137-145) mmol/L BUN (9-20) mg/dL Creatinine (0.66-1.25) mg/dL Glucose (74-99) mg/dL POC Glucose (mg/dL) (75-99) mg/dL Iron 27 L (65-175) ug/dL TIBC 226 L (228-460) ug/dL Iron Saturation 11.95 L (15.00-50.00) C-Reactive Protein 17.2 H (<10.0) mg/L Albumin (3.5-5.0) g/dL 07/10/17 07/10/17 07/11/17 Range/Units 17:19 20:30 00:45 RBC (4.30-5.90) m/uL Hgb (13.0-17.5) gm/dL Hct (39.0-53.0) % RDW (11.5-15.5) % ESR (0-15) mm/hr Sodium (137-145) mmol/L BUN (9-20) mg/dL Creatinine (0.66-1.25) mg/dL Glucose (74-99) mg/dL POC Glucose (mg/dL) 117 H 136 H 121 H (75-99) mg/dL Iron (65-175) ug/dL TIBC (228-460) ug/dL Iron Saturation (15.00-50.00) C-Reactive Protein (<10.0) mg/L Albumin (3.5-5.0) g/dL 07/11/17 07/11/17 07/11/17 Range/Units 06:46 07:55 07:55 RBC 3.20 L (4.30-5.90) m/uL Hgb 9.4 L (13.0-17.5) gm/dL Hct 29.3 L (39.0-53.0) % RDW 17.3 H (11.5-15.5) % ESR (0-15) mm/hr Sodium 130 L (137-145) mmol/L BUN 25 H (9-20) mg/dL Creatinine 6.45 H* (0.66-1.25) mg/dL Glucose 123 H (74-99) mg/dL POC Glucose (mg/dL) 132 H (75-99) mg/dL Iron (65-175) ug/dL TIBC (228-460) ug/dL Iron Saturation (15.00-50.00) C-Reactive Protein (<10.0) mg/L Albumin 3.0 L (3.5-5.0) g/dL 07/11/17 Range/Units 11:35 RBC (4.30-5.90) m/uL Hgb (13.0-17.5) gm/dL Hct (39.0-53.0) % RDW (11.5-15.5) % ESR (0-15) mm/hr Sodium (137-145) mmol/L BUN (9-20) mg/dL Creatinine (0.66-1.25) mg/dL Glucose (74-99) mg/dL POC Glucose (mg/dL) 150 H (75-99) mg/dL Iron (65-175) ug/dL TIBC (228-460) ug/dL Iron Saturation (15.00-50.00) C-Reactive Protein (<10.0) mg/L Albumin (3.5-5.0) g/dL Assessment and Plan (1) Vomiting Narrative/Plan: Probably secondary to diabetic gastroparesis, nausea and vomiting appeared to have resolved as of yesterday however later after I rounded patient developed significant nausea even with antiemetic and vomited Was called and Zofran 8 mg every 6 hours IV piggyback was as needed for nausea and vomiting was initiated Current Visit: Yes Status: Acute Code(s): R11.10 - VOMITING, UNSPECIFIED SNOMED Code(s): 397075970 (2) Weakness Narrative/Plan: Secondary to nausea and vomiting, secondary to anemia of chronic disease Patient was transfused with one unit of packed red cells patient is making reticulocytes Weakness appears to have improved appetite appears to have improved nausea and vomiting have all but resolved Current Visit: Yes Status: Acute Code(s): R53.1 - WEAKNESS SNOMED Code(s) : 67432354 (3) Abdominal pain Narrative/Plan: Abdominal pain secondary to diabetic gastroparesis and chronic cholecystitis Symptoms have improved patient is tolerating diet better Current Visit: No Status: Acute Code(s): R10.9 - UNSPECIFIED ABDOMINAL PAIN SNOMED Code(s): 94994719 (4) Acute encephalopathy Narrative/Plan: Resolved Current Visit: No Status: Acute Code(s): G93.40 - ENCEPHALOPATHY, UNSPECIFIED SNOMED Code(s): 9799796
--- NOTE | 2017-07-11 12:36 | P.PN ---
Subjective Progress Note Date: 07/11/17 Principal diagnosis: This is a 46-year-old male known with ESRD on dialysis Wednesday with came in because of diabetic gastroparesis and nausea vomiting. This morning he is feeling again somewhat nauseated and threw up earlier this morning about twice. Yesterday he was somewhat better until lunch. He was able to eat and keep his food down. Has fair appetite. Does have abdominal discomfort because of the vomiting. No fever chills. No chest pain cough shortness of breath. He was seen on dialysis today. Is stable on dialysis. Last dialysis was day before yesterday. Objective - Vital Signs Vital signs: Vital Signs Temp 98.0 F 07/11/17 07:37 Pulse 70 07/11/17 07:37 Resp 16 07/11/17 07:37 BP 167/96 07/11/17 07:37 Pulse Ox 96 07/11/17 01:25 Intake & Output 07/10/17 07/11/17 07/11/17 18:59 06:59 18:59 Intake Total 300 640 Output Total 100 Balance 200 640 Intake: Intake, IV Titration 60 440 Amount Sodium Chloride 0.9% 1, 60 190 000 ml @ 20 mls/hr IV . Q24H [facility] Rx#:[id number] Vancomycin 1,750 mg In 250 Sodium Chloride 0.9% 250 ml @ 125 mls/hr IVPB ONCE ONE Rx#:[id number] Oral 240 200 Output: Emesis 100 Other: Voiding Method Bedside Commode Urinal # Voids 1 Examination is awake alert oriented. HEENT exam no JVP in neck is supple no facial asymmetry Lungs clear to auscultation with good air entry bilaterally. Heart sounds unremarkable no murmur rub gallop Abdomen soft nontender. His abdominal wall is tender. Extremity exam reveals mild edema on the right where he has transmetatarsal amputation and a left BKA. Neurologically awake alert oriented - Labs CBC & Chem 7: 07/11/17 07:55 07/11/17 07:55 Labs: Abnormal Lab Results - Last 24 Hours (Table) 07/10/17 07/10/17 07/10/17 Range/Units 08:02 08:02 17:19 RBC (4.30-5.90) m/uL Hgb (13.0-17.5) gm/dL Hct (39.0-53.0) % RDW (11.5-15.5) % ESR 77 H (0-15) mm/hr Sodium (137-145) mmol/L BUN (9-20) mg/dL Creatinine (0.66-1.25) mg/dL Glucose (74-99) mg/dL POC Glucose (mg/dL) 117 H (75-99) mg/dL C-Reactive Protein 17.2 H (<10.0) mg/L Albumin (3.5-5.0) g/dL 07/10/17 07/11/17 07/11/17 Range/Units 20:30 00:45 06:46 RBC (4.30-5.90) m/uL Hgb (13.0-17.5) gm/dL Hct (39.0-53.0) % RDW (11.5-15.5) % ESR (0-15) mm/hr Sodium (137-145) mmol/L BUN (9-20) mg/dL Creatinine (0.66-1.25) mg/dL Glucose (74-99) mg/dL POC Glucose (mg/dL) 136 H 121 H 132 H (75-99) mg/dL C-Reactive Protein (<10.0) mg/L Albumin (3.5-5.0) g/dL 07/11/17 07/11/17 07/11/17 Range/Units 07:55 07:55 11:35 RBC 3.20 L (4.30-5.90) m/uL Hgb 9.4 L (13.0-17.5) gm/dL Hct 29.3 L (39.0-53.0) % RDW 17.3 H (11.5-15.5) % ESR (0-15) mm/hr Sodium 130 L (137-145) mmol/L BUN 25 H (9-20) mg/dL Creatinine 6.45 H* (0.66-1.25) mg/dL Glucose 123 H (74-99) mg/dL POC Glucose (mg/dL) 150 H (75-99) mg/dL C-Reactive Protein (<10.0) mg/L Albumin 3.0 L (3.5-5.0) g/dL Assessment and Plan Assessment: Impression 1. ESRD on dialysis Wednesday. He is dialysis today Wednesday because of the holiday schedule of and will be next dialyzed on Wednesday 2. Admitted with nausea vomiting diabetic gastroparesis improving slowly. 3. Mild hyponatremia from ESRD and dilution. 4. Calcium normal, phosphorus not available. 5. Hemoglobin is 9.1, anemia from chronic kidney disease and iron deficiency. 6. Iron deficiency saturation 11% dated 07/09/2017. Recommendation. 1. Will give him IV Ferrlecit 125 mg 1 dose today and 1 dose tomorrow. He can be dischargedas soon as he feels better
[2017-07-11] MEDS ORDERED: CLOBETASOL PROP 0.05% CR 15GM TOPICAL PRN (13:39)
[2017-07-11] MEDS: SODIUM FERRIC GLUCONAT-SUCROSE 125 MG in SODIUM CHLORIDE 0.9% 100 ML IVPB SCH (13:46)
[2017-07-11] MEDS: COLLAGENASE 250 UNIT/GM OINTMENT 30 GM TUBE TOPICAL SCH (13:47)
[2017-07-11] MEDS: MUPIROCIN 2% OINT 22 GM TUBE TOPICAL SCH (13:47)
[2017-07-11] MEDS ORDERED: VANCOMYCIN 1,750 MG in SODIUM CHLORIDE 0.9% 250 ML IVPB ONE (14:00)
[2017-07-11] MEDS: Acetaminophen-Codeine 300-30mg TAB PO PRN (14:16)
[2017-07-11] MEDS: ONDANSETRON 4 MG/2 ML VIAL IVP SCH ×2 (14:55→23:07)
[2017-07-11 16:41] LABS: Glucose,Whole Blood 119 mg/dL (75-99)
[2017-07-11] MEDS: TAMSULOSIN 0.4 MG CAP.ER.24H PO SCH (17:44)
[2017-07-11 18:23] LABS: Hemoglobin A1C 5.8 % (4.0-6.0)
[2017-07-11 20:57] LABS: Glucose,Whole Blood 120 mg/dL (75-99)
[2017-07-11] MEDS: PROCHLORPERAZINE 5 MG TAB PO PRN (21:11)
--- NOTE | 2017-07-11 22:08 | P.PN ---
Subjective Progress Note Date: 07/11/17 Principal diagnosis: Nausea and emesis 6-year-old male with long-standing history of diabetes mellitus who has multiple end organ complications that include peripheral vascular disease with prior amputation as well as end-stage renal disease on hemodialysis. Early this year he had great difficulty with sepsis and had evidence of peritonitis related to his peritoneal dialysis. Staph aureus sepsis had occurred and eventually the dialysis catheter was removed and he has now been treated with hemodialysis. Isn't following the wound healing Center for a diabetic foot ulceration, most recently seen 07/06/2017 for debridement. Patient had evidence of a significant infection to the site and antibiotic therapy was started with doxycycline. Patient has a known history of diabetic gastroparesis. The patient relates in the days following he's had a flare of his gastroparesis and has had active emesis today. He is denying high-grade fever chills or rigors or sweats. But of course feels very poorly because of the emesis after each meal that he is suffering from. Has noticed no gastrointestinal distress related to the starting of the doxycycline but has had worsening of his gastroparesis. He is denying fevers, chills or rigors. Generally feels poorly. Now since stopping doxycycline is feeling slightly better. Last emesis was about 2 AM in the morning. Is able to eat some food. Denies other new discomforts. Objective - Vital Signs Vital signs: Vital Signs Temp 98.8 F 07/11/17 19:32 Pulse 80 07/11/17 19:32 Resp 16 07/11/17 19:32 BP 171/95 07/11/17 19:32 Pulse Ox 96 07/11/17 19:32 Intake & Output 07/11/17 07/11/17 07/12/17 06:59 18:59 06:59 Intake Total 640 70 Output Total 200 75 Balance 640 -200 -5 Intake: Intake, IV Titration 440 70 Amount Sodium Chloride 0.9% 1, 190 70 000 ml @ 20 mls/hr IV . Q24H [facility] Rx#:[id number] Vancomycin 1,750 mg In 250 Sodium Chloride 0.9% 250 ml @ 125 mls/hr IVPB ONCE ONE Rx#:[id number] Oral 200 Output: Urine 200 Emesis 75 Other: Voiding Method Bedside Commode Bedside Commode Urinal Urinal # Voids 1 - Exam HEENT: Anicteric conjunctiva are pink and moist nasal mucosa grossly intact without significant lesions, there is no thrush. Neck: The neck is supple without significant lymphadenopathy or thyromegaly. Lungs: Good bilateral air entry without significant crackles or wheezing. There is no significant bronchial sounds. There is no egophony or dullness. Heart: Regular rate and rhythm with an audible S1-S2, no S3 no S4. There is no significant murmur click or rub, PMI was nondisplaced. Abdomen: the abdomen is soft his minimal tenderness in the epigastrium. No guarding or rebound. No palpable masses or organomegaly. Extremities: The upper extremities have excellent pulses they are symmetric, no significant petechiae or telangiectasia. No splinter hemorrhages were noted. residual limb to the left is evidence of dry skin but no open ulcerations are seen. Right lower extremity has evidence of the ulcerations including the right lateral leg at0.4 x 0.4 x 0.1 cm, right foot plantar measuring at 5 x 6 x 0.2 cm. Neuro: Awake alert oriented to person place and time. There are no acute new gross focal sensory motor deficits.has peripheral neuropathy noted. - Labs CBC & Chem 7: 07/11/17 07:55 07/11/17 07:55 Labs: Abnormal Lab Results - Last 24 Hours (Table) 07/11/17 07/11/17 07/11/17 Range/Units 00:45 06:46 07:55 RBC 3.20 L (4.30-5.90) m/uL Hgb 9.4 L (13.0-17.5) gm/dL Hct 29.3 L (39.0-53.0) % RDW 17.3 H (11.5-15.5) % Sodium (137-145) mmol/L BUN (9-20) mg/dL Creatinine (0.66-1.25) mg/dL Glucose (74-99) mg/dL POC Glucose (mg/dL) 121 H 132 H (75-99) mg/dL Albumin (3.5-5.0) g/dL 07/11/17 07/11/17 07/11/17 Range/Units 07:55 11:35 16:38 RBC (4.30-5.90) m/uL Hgb (13.0-17.5) gm/dL Hct (39.0-53.0) % RDW (11.5-15.5) % Sodium 130 L (137-145) mmol/L BUN 25 H (9-20) mg/dL Creatinine 6.45 H* (0.66-1.25) mg/dL Glucose 123 H (74-99) mg/dL POC Glucose (mg/dL) 150 H 119 H (75-99) mg/dL Albumin 3.0 L (3.5-5.0) g/dL 07/11/17 Range/Units 20:09 RBC (4.30-5.90) m/uL Hgb (13.0-17.5) gm/dL Hct (39.0-53.0) % RDW (11.5-15.5) % Sodium (137-145) mmol/L BUN (9-20) mg/dL Creatinine (0.66-1.25) mg/dL Glucose (74-99) mg/dL POC Glucose (mg/dL) 120 H (75-99) mg/dL Albumin (3.5-5.0) g/dL Laboratory Results WBC 6.4 k/uL (3.8-10.6) 07/11/17 07:55 RBC 3.20 m/uL (4.30-5.90) L 07/11/17 07:55 Hgb 9.4 gm/dL (13.0-17.5) L 07/11/17 07:55 Hct 29.3 % (39.0-53.0) L 07/11/17 07:55 MCV 91.6 fL (80.0-100.0) 07/11/17 07:55 MCH 29.5 pg (25.0-35.0) 07/11/17 07:55 MCHC 32.2 g/dL (31.0-37.0) 07/11/17 07:55 RDW 17.3 % (11.5-15.5) H 07/11/17 07:55 Plt Count 180 k/uL (150-450) 07/11/17 07:55 Neutrophils % 58 % 07/11/17 07:55 Lymphocytes % 21 % 07/11/17 07:55 Monocytes % 9 % 07/11/17 07:55 Eosinophils % 8 % 07/11/17 07:55 Basophils % 1 % 07/11/17 07:55 Neutrophils # 3.7 k/uL (1.3-7.7) 07/11/17 07:55 Lymphocytes # 1.3 k/uL (1.0-4.8) 07/11/17 07:55 Monocytes # 0.6 k/uL (0-1.0) 07/11/17 07:55 Eosinophils # 0.5 k/uL (0-0.7) 07/11/17 07:55 Basophils # 0.0 k/uL (0-0.2) 07/11/17 07:55 Hypochromasia Slight 07/10/17 08:02 Poikilocytosis Slight 07/11/17 07:55 Anisocytosis Slight 07/11/17 07:55 ESR 77 mm/hr (0-15) H 07/10/17 08:02 Retic Count 3.1 % (0.5-2.0) H 07/08/17 15:43 PT 10.0 sec (9.0-12.0) 07/07/17 22:09 INR 1.0 (<1.2) 07/07/17 22:09 APTT 23.3 sec (22.0-30.0) 07/07/17 22:09 Sodium 130 mmol/L (137-145) L 07/11/17 07:55 Potassium 4.0 mmol/L (3.5-5.1) 07/11/17 07:55 Chloride 98 mmol/L (98-107) 07/11/17 07:55 Carbon Dioxide 26 mmol/L (22-30) 07/11/17 07:55 Anion Gap 6 mmol/L 07/11/17 07:55 BUN 25 mg/dL (9-20) H 07/11/17 07:55 Creatinine 6.45 mg/dL (0.66-1.25) H* 07/11/17 07:55 Est GFR (MDRD) Af Amer 11 (>60 ml/min/1.73 sqM) 07/11/17 07:55 Est GFR (MDRD) Non-Af 9 (>60 ml/min/1.73 sqM) 07/11/17 07:55 Glucose 123 mg/dL (74-99) H 07/11/17 07:55 POC Glucose (mg/dL) 120 mg/dL (75-99) H 07/11/17 20:09 POC Glu Doctor Of Nursing Practice ID Asha Mercado 07/11/17 20:[address] Glu mg/dL 134 07/07/17 22:09 Hemoglobin A1c 6.3 % (4.0-6.0) H 07/07/17 22:09 Plasma Lactic Acid Massimo 1.7 mmol/L (0.7-2.0) 07/07/17 22:09 Calcium 8.6 mg/dL (8.4-10.2) 07/11/17 07:55 Magnesium 2.0 mg/dL (1.6-2.3) 07/09/17 06:46 Iron 27 ug/dL (65-175) L 07/09/17 06:46 TIBC 226 ug/dL (228-460) L 07/09/17 06:46 Iron Saturation 11.95 (15.00-50.00) L 07/09/17 06:46 Total Bilirubin 0.3 mg/dL (0.2-1.3) 07/11/17 07:55 AST 29 U/L (17-59) 07/11/17 07:55 ALT 21 U/L (21-72) 07/11/17 07:55 Alkaline Phosphatase 101 U/L (38-126) 07/11/17 07:55 Total Creatine Kinase 93 U/L (55-170) 07/07/17 22:09 CK-MB (CK-2) 4.5 ng/mL (0.0-2.4) H* 07/07/17 22:09 CK-MB (CK-2) Rel Index 4.8 07/07/17 22:09 Troponin I <0.012 ng/mL (0.000-0.034) 07/07/17 22:09 C-Reactive Protein 17.2 mg/L (<10.0) H 07/10/17 08:02 Total Protein 7.1 g/dL (6.3-8.2) 07/11/17 07:55 Albumin 3.0 g/dL (3.5-5.0) L 07/11/17 07:55 Prealbumin 23.0 mg/dL (18.0-42.0) 07/10/17 08:02 Urine Color Yellow 07/08/17 00:55 Urine Appearance Cloudy (Clear) 07/08/17 00:55 Urine pH 8.5 (5.0-8.0) H 07/08/17 00:55 Ur Specific [place] 1.022 (1.001-1.035) 07/08/17 00:55 Urine Protein 4+ (Negative) H 07/08/17 00:55 Urine Glucose (UA) 3+ (Negative) H 07/08/17 00:55 Urine Ketones Negative (Negative) 07/08/17 00:55 Urine Blood Trace (Negative) H 07/08/17 00:55 Urine Nitrite Negative (Negative) 07/08/17 00:55 Urine Bilirubin Negative (Negative) 07/08/17 00:55 Urine Urobilinogen <2.0 mg/dL (<2.0) 07/08/17 00:55 Ur Leukocyte Esterase Negative (Negative) 07/08/17 00:55 Urine RBC 11 /hpf (0-5) H 07/08/17 00:55 Urine WBC 4 /hpf (0-5) 07/08/17 00:55 Ur Squamous Epith Cells 1 /hpf (0-4) 07/08/17 00:55 Urine Bacteria Rare /hpf (None) H 07/08/17 00:55 Hyaline Casts 11 /lpf (0-2) H 07/08/17 00:55 Urine Mucus Few /hpf (None) H 07/08/17 00:55 Blood Type A Positive 07/09/17 09:01 Blood Type Recheck No 07/09/17 09:01 Antibody Screen NEGATIVE 07/09/17 09:01 Crossmatch See Detail 07/09/17 09:01 Spec Expiration Date 07/12/2017 - 230007/09/17 09:01 Microbiology 07/08/17 00:55 Urine,Voided Urine Culture - Final Assessment and Plan (1) Vomiting Narrative/Plan: 46-year-old male presents to Hospital feeling very poorly with weakness and ongoing nausea and emesis. Is not is a long-standing history diabetes mellitus with multiple complications that included chronic renal failure requiring hemodialysis as well as peripheral vascular disease. Isn't following wound healing Center for right lower extremity ulcerations. Continue Santyl to the open ulcerations moistened gauze and wrap them into place. Continue to offload the sites. Patient evidence of enterococcus and MRSA at the foot wound ulcer site. Antibiotic therapy was started with doxycycline. However appears to be intolerant to this with much worsening of his gastroparesis with nausea and emesis. consequently doxycycline was discontinued. Vancomycin has been started and is well tolerated. Is having some improvement but also Zofran has been started which seems to be improving his nausea and emesis. he is following nephrology will have hemodialysis per their protocol. We will monitor. Current Visit: Yes Status: Acute Code(s): R11.10 - VOMITING, UNSPECIFIED SNOMED Code(s): 021976347 (2) Chronic renal failure, stage 4 (severe) Current Visit: No Status: Acute Code(s): N18.4 - CHRONIC KIDNEY DISEASE, STAGE 4 (SEVERE) SNOMED Code(s): 16286926 (3) Diabetes mellitus type 2 with complications, uncontrolled Current Visit: Yes Status: Acute Code(s): E11.8 - TYPE 2 DIABETES MELLITUS WITH UNSPECIFIED COMPLICATIONS; E11.65 - TYPE 2 DIABETES MELLITUS WITH HYPERGLYCEMIA SNOMED Code(s): 190440007 (4) Diabetic ulcer of right foot associated with diabetes mellitus due to underlying condition, with fat layer exposed Current Visit: Yes Status: Acute Code(s): E08.621 - DIABETES MELLITUS DUE TO UNDERLYING CONDITION W FOOT ULCER; L97.512 - NON-PRS CHRONIC ULCER OTH PRT RIGHT FOOT W FAT LAYER EXPOSED SNOMED Code(s): 203678040
[2017-07-12] MEDS: SEVELAMER 800 MG TAB PO SCH ×4 (01:22→18:18)
[2017-07-12] MEDS: CALCIUM ACETATE 667 MG CAP PO SCH ×4 (01:22→18:18)
[2017-07-12] MEDS: INSULIN ASPART 100 UNIT/ML 1 ML 10 ML VIAL SQ SCH ×5 (01:23→21:28)
[2017-07-12] MEDS: AMIODARONE 200 MG TAB PO SCH ×3 (01:23→21:46)
[2017-07-12] MEDS: ATORVASTATIN 80 MG TAB PO SCH ×2 (01:23→21:46)
[2017-07-12] MEDS: FOLIC ACID-VIT B COMPLEX-VIT C 1 CAP PO SCH ×4 (01:23→21:46)
[2017-07-12] MEDS: SODIUM CHLORIDE 0.9% 1,000 ML IV SCH (06:11)
[2017-07-12 07:01] LABS: Glucose,Whole Blood 120 mg/dL (75-99)
[2017-07-12] MEDS: ONDANSETRON 4 MG/2 ML VIAL IVP SCH ×3 (07:41→23:50)
[2017-07-12 08:04] LABS: Anisocytosis Slight; Basophils % (A) 0 %; Eosinophils # (A) 0.2 k/uL (0-0.7); Eosinophils % (A) 2 %; HCT 29.7 % (39.0-53.0); HGB 9.9 gm/dL (13.0-17.5); Lymphocytes # (A) 0.7 k/uL (1.0-4.8); Lymphocytes % (A) 9 %; MCH 29.9 pg (25.0-35.0); MCHC 33.1 g/dL (31.0-37.0); MCV 90.2 fL (80.0-100.0); Mean Platelet Volume 6.8; Monocytes # (A) 0.4 k/uL (0-1.0); Monocytes % (A) 5 %; Neutrophils # (A) 5.9 k/uL (1.3-7.7); Neutrophils % (A) 81 %; Platelet Count 228 k/uL (150-450); Poikilocytosis Slight; RDW 17.4 % (11.5-15.5); WBC 7.3 k/uL (3.8-10.6)
[2017-07-12 09:09] LABS: Albumin 3.2 g/dL (3.5-5.0); Calcium 8.8 mg/dL (8.4-10.2); Total Bilirubin 0.5 mg/dL (0.2-1.3); Total Protein 7.9 g/dL (6.3-8.2)
[2017-07-12] MEDS: PANTOPRAZOLE 40 MG TABLET PO SCH (09:10)
[2017-07-12 09:18] LABS: Potassium 4.6 mmol/L (3.5-5.1)
[2017-07-12] MEDS: COLLAGENASE 250 UNIT/GM OINTMENT 30 GM TUBE TOPICAL SCH (09:24)
[2017-07-12] MEDS: MUPIROCIN 2% OINT 22 GM TUBE TOPICAL SCH (09:24)
[2017-07-12] MEDS ORDERED: SODIUM CHLORIDE 0.9% 1,000 ML IV SCH (10:00)
[2017-07-12] MEDS ORDERED: hydrALAZINE HCL 20 MG/ML 1 ML VIAL IV ONE (10:15)
--- NOTE | 2017-07-12 10:20 | XR ---
EXAMINATION TYPE: XR chest 2V DATE OF EXAM: 07/12/2017 COMPARISON: 07/07/2017 HISTORY: Fever TECHNIQUE: Frontal and lateral views of the chest are obtained. FINDINGS: There is no heart failure nor confluent pneumonic infiltrate. There is coarsening of inter stitial markings. There is a dual-lumen right central venous catheter with tip in the right atrium. T here is no sign of pleural effusion. There is 40% anterior wedging of a lower thoracic vertebra. IMPRESSION: Pulmonary fibrotic changes. No acute lung disease. No change compared to last exam.
[2017-07-12] MEDS: LEVOTHYROXINE 25 MCG TAB PO SCH (10:33)
[2017-07-12] MEDS: THIAMINE 100 MG TAB PO SCH (10:33)
[2017-07-12 10:38] LABS: Anisocytosis Slight; Basophils % (A) 0 %; Eosinophils # (A) 0.1 k/uL (0-0.7); Eosinophils % (A) 1 %; HCT 31.7 % (39.0-53.0); HGB 10.3 gm/dL (13.0-17.5); Hypochromasia Slight; Lymphocytes # (A) 0.6 k/uL (1.0-4.8); Lymphocytes % (A) 9 %; MCH 30.1 pg (25.0-35.0); MCHC 32.4 g/dL (31.0-37.0); MCV 92.8 fL (80.0-100.0); Mean Platelet Volume 6.9; Monocytes # (A) 0.4 k/uL (0-1.0); Monocytes % (A) 6 %; Neutrophils # (A) 5.9 k/uL (1.3-7.7); Neutrophils % (A) 83 %; Platelet Count 223 k/uL (150-450); Poikilocytosis Slight; RBC 3.42 m/uL (4.30-5.90); RDW 17.5 % (11.5-15.5); WBC 7.1 k/uL (3.8-10.6)
[2017-07-12 11:14] LABS: Glucose,Whole Blood 133 mg/dL (75-99)
[2017-07-12] MEDS: VALPROATE SODIUM 250 MG in SODIUM CHLORIDE 0.9% 50 ML IVPB SCH ×3 (11:29→23:50)
--- NOTE | 2017-07-12 12:31 | P.PN ---
Subjective Progress Note Date: 07/12/17 Principal diagnosis: End-stage renal disease, anemia of chronic disease, diabetic ulcer to the right foot Patient presented to the emergency room on 07/07/2017 chief complaint weakness. Patient wished hospitalization from 05/20/2017 until 06/01/2017 take secondary to peritonitis patient had been undergoing 100 perineal dialysis at that time. Patient has also been seeing Dr. Sy in the [facility] saw him 2 days ago at which time his wound was debrided and dressing was changed, patient is currently being treated for end-stage renal disease coronary artery disease diabetes mellitus and recent hemoglobin A1c of 9.9 DVT and gastroesophageal reflux disease hyperlipidemia myocardial infarction by history peripheral vascular disease left below knee amputation and a right partial foot amputation. And currently has complaints consistent with diabetic gastroparesis. Patient developed nausea and vomiting probably secondary to the diabetic gastroparesis Mr. evening patient was also had Zofran 8 mg every 6 hours added to his nausea and vomiting regimen to attempt to reduce the amount of nausea and omitting. Patient was also rehydrated and increase fluids 200 per hour 3 hours nausea seems to improve slightly he is approximately assisted through the fluid challenge will reevaluate him at this time and consider starting him back on clear liquids and fluids Objective - Vital Signs Vital signs: Vital Signs Temp 100.3 F H 07/12/17 07:00 Pulse 88 07/12/17 07:00 Resp 17 07/12/17 07:00 BP 150/80 07/12/17 11:36 Pulse Ox 93 L 07/12/17 03:13 Intake & Output 07/11/17 07/12/17 07/12/17 18:59 06:59 18:59 Intake Total 230 100 Output Total 200 105 Balance -200 125 100 Intake: Intake, IV Titration 230 Amount Sodium Chloride 0.9% 1, 230 000 ml @ 20 mls/hr IV . Q24H [facility] Rx#:[id number] Oral 100 Output: Urine 200 Emesis 105 Other: Voiding Method Bedside Commode Urinal - Exam General: [Patient awake, alert and oriented times 3. Patient in no acute distress.] HEENT: [PERRL. EOMI. No pharyngeal erythema or exudate.] Neck: [No adenopathy.] Cardiac: [Heart regular in rate and rhythm. No S3. No S4. No clicks, rubs. No murmur.] Lungs: [Clear to auscultation bilaterally.] Abdomen: [No mass. No organomegaly. Bowel sounds presnt and normoactive in all 4 quadrants.] Extremes: [No edema no cyanosis no claudication normal pulses] left BKA, right partial foot amputation with ulcer to the right foot : [] Musculoskeletal: [No joint erythema, edema or tenderness.] Skin: [No rash.] Neurologic: [No lateralizing deficits. CN II - XII grossly intact.] Lymphatic: [No adenopathy.] - Labs CBC & Chem 7: 07/12/17 10:22 07/12/17 07:47 Labs: Abnormal Lab Results - Last 24 Hours (Table) 07/11/17 07/11/17 07/12/17 Range/Units 16:38 20:09 06:59 RBC (4.30-5.90) m/uL Hgb (13.0-17.5) gm/dL Hct (39.0-53.0) % RDW (11.5-15.5) % Lymphocytes # (1.0-4.8) k/uL Sodium (137-145) mmol/L Creatinine (0.66-1.25) mg/dL Glucose (74-99) mg/dL POC Glucose (mg/dL) 119 H 120 H 120 H (75-99) mg/dL Albumin (3.5-5.0) g/dL 07/12/17 07/12/17 07/12/17 Range/Units 07:47 07:47 10:22 RBC 3.30 L 3.42 L (4.30-5.90) m/uL Hgb 9.9 L 10.3 L (13.0-17.5) gm/dL Hct 29.7 L 31.7 L (39.0-53.0) % RDW 17.4 H 17.5 H (11.5-15.5) % Lymphocytes # 0.7 L 0.6 L (1.0-4.8) k/uL Sodium 134 L (137-145) mmol/L Creatinine 4.90 H (0.66-1.25) mg/dL Glucose 129 H (74-99) mg/dL POC Glucose (mg/dL) (75-99) mg/dL Albumin 3.2 L (3.5-5.0) g/dL 07/12/17 Range/Units 11:09 RBC (4.30-5.90) m/uL Hgb (13.0-17.5) gm/dL Hct (39.0-53.0) % RDW (11.5-15.5) % Lymphocytes # (1.0-4.8) k/uL Sodium (137-145) mmol/L Creatinine (0.66-1.25) mg/dL Glucose (74-99) mg/dL POC Glucose (mg/dL) 133 H (75-99) mg/dL Albumin (3.5-5.0) g/dL Assessment and Plan (1) Vomiting Narrative/Plan: Probably secondary to diabetic gastroparesis, nausea and vomiting appeared to have resolved as of yesterday however later after I rounded patient developed significant nausea even with antiemetic and vomited Was called and Zofran 8 mg every 6 hours IV piggyback was as needed for nausea and vomiting was initiated Judicious rehydration and her holding oral meds as patient will not tolerate started patient on hydralazine 10 mg 1 by mouth every 8 hours as needed for blood pressure greater than 140/90 Current Visit: Yes Status: Acute Code(s): R11.10 - VOMITING, UNSPECIFIED SNOMED Code(s): 279782875 (2) Weakness Current Visit: Yes Status: Acute Code(s): R53.1 - WEAKNESS SNOMED Code(s) : 97814077 (3) Abdominal pain Current Visit: No Status: Acute Code(s): R10.9 - UNSPECIFIED ABDOMINAL PAIN SNOMED Code(s): 64745970 (4) Acute encephalopathy Current Visit: No Status: Acute Code(s): G93.40 - ENCEPHALOPATHY, UNSPECIFIED SNOMED Code(s): 7973783
[2017-07-12] MEDS: SODIUM FERRIC GLUCONAT-SUCROSE 125 MG in SODIUM CHLORIDE 0.9% 100 ML IVPB SCH (13:20)
[2017-07-12] MEDS: amLODIPine 10 MG TAB PO SCH (14:17)
[2017-07-12] MEDS: DIVALPROEX 250 MG TABLET.DR PO SCH (14:17)
[2017-07-12] MEDS ORDERED: hydrALAZINE HCL 20 MG/ML 1 ML VIAL IV SCH (16:00)
[2017-07-12 17:02] LABS: Glucose,Whole Blood 112 mg/dL (75-99)
[2017-07-12] MEDS: METOCLOPRAMIDE 5 MG/ML 2 ML VIAL IVP PRN (19:20)
[2017-07-12 21:22] LABS: Glucose,Whole Blood 113 mg/dL (75-99)
[2017-07-12] MEDS: TAMSULOSIN 0.4 MG CAP.ER.24H PO SCH (21:46)
[2017-07-12] MEDS: hydrALAZINE HCL 20 MG/ML 1 ML VIAL IV SCH (22:31)
[2017-07-13] MEDS: METOCLOPRAMIDE 5 MG/ML 2 ML VIAL IVP PRN ×2 (03:33→09:06)
[2017-07-13] MEDS: hydrALAZINE HCL 20 MG/ML 1 ML VIAL IV SCH ×6 (03:43→21:58)
[2017-07-13] MEDS: SODIUM CHLORIDE 0.9% 1,000 ML IV SCH (03:54)
[2017-07-13] MEDS: LEVOTHYROXINE 25 MCG TAB PO SCH (06:03)
[2017-07-13 06:54] LABS: Glucose,Whole Blood 116 mg/dL (75-99)
[2017-07-13 07:09] LABS: Anisocytosis Slight; Basophils % (A) 0 %; Eosinophils # (A) 0.1 k/uL (0-0.7); Eosinophils % (A) 1 %; HCT 30.2 % (39.0-53.0); HGB 9.2 gm/dL (13.0-17.5); Hypochromasia Slight; Lymphocytes % (A) 14 %; MCH 29.3 pg (25.0-35.0); MCHC 30.4 g/dL (31.0-37.0); MCV 96.3 fL (80.0-100.0); Macrocytosis Slight; Mean Platelet Volume 7.2; Monocytes # (A) 0.5 k/uL (0-1.0); Monocytes % (A) 7 %; Neutrophils # (A) 5.2 k/uL (1.3-7.7); Neutrophils % (A) 74 %; Platelet Count 201 k/uL (150-450); RBC 3.13 m/uL (4.30-5.90); RDW 19.9 % (11.5-15.5)
[2017-07-13] MEDS: ONDANSETRON 4 MG/2 ML VIAL IVP SCH ×3 (07:22→23:43)
[2017-07-13 07:31] LABS: Albumin 3.1 g/dL (3.5-5.0); Calcium 8.9 mg/dL (8.4-10.2); Potassium 3.8 mmol/L (3.5-5.1); Total Bilirubin 0.4 mg/dL (0.2-1.3); Total Protein 7.4 g/dL (6.3-8.2)
[2017-07-13] MEDS: INSULIN ASPART 100 UNIT/ML 1 ML 10 ML VIAL SQ SCH ×4 (07:39→21:38)
[2017-07-13] MEDS: CALCIUM ACETATE 667 MG CAP PO SCH ×3 (09:05→17:17)
[2017-07-13] MEDS: PANTOPRAZOLE 40 MG TABLET PO SCH (09:05)
[2017-07-13] MEDS: SEVELAMER 800 MG TAB PO SCH ×3 (09:05→17:17)
[2017-07-13] MEDS: THIAMINE 100 MG TAB PO SCH (09:06)
[2017-07-13] MEDS: FOLIC ACID-VIT B COMPLEX-VIT C 1 CAP PO SCH ×3 (09:06→21:57)
[2017-07-13] MEDS: VALPROATE SODIUM 250 MG in SODIUM CHLORIDE 0.9% 50 ML IVPB SCH ×3 (09:06→23:43)
[2017-07-13] MEDS: AMIODARONE 200 MG TAB PO SCH ×2 (09:06→21:57)
[2017-07-13 11:41] LABS: Glucose,Whole Blood 129 mg/dL (75-99)
--- NOTE | 2017-07-13 11:45 | P.PN ---
Subjective Progress Note Date: 07/13/17 46-year-old male who presented to the emergency room on 07/07/2017 with a chief complaint of weakness. The patient had a recent hospitalization from 05/20/2017 until 06/01/2017 secondary to peritonitis. The patient was undergoing peritoneal dialysis at that time. His peers dialysis catheter was removed and he was temporarily transitioned to hemodialysis. At the time of discharge the patient was transferred to subacute rehab. The patient states he has been discharged from subacute rehab approximately one week and has been living at home. He states he has been attending hemodialysis Wednesdays and Fridays. He states he is also been seen Dr. Sy in the wound care center and saw him yesterday and he states his wound was debrided at that time. He says over the past week, he has felt increasingly more weak and fatigued. He states anytime he is trying to accomplish the task he becomes shaky and dizzy and is unable to complete it. The patient states he thinks it is secondary to his anemia. He states he has undergone 2 blood transfusions in the past 2 weeks during dialysis. The patient has a history of end-stage renal disease, coronary artery disease, diabetes mellitus with a recent hemoglobin A1c of 9.9%, deep vein thrombosis, gastroesophageal reflux disease, hypertension, hyperlipidemia, myocardial infarction, peripheral vascular disease with a left [id number] amputation and a right foot partial amputation. He has a history of MRSA in 2015 in his blood and left foot. In the emergency room a chest x-ray was completed which revealed stable mild cardiomegaly and mild vascular congestion. It was negative for pulmonary infiltrates. Laboratory studies completed revealed a sodium of 138. Potassium 3.7. BUN 17. Creatinine 4.7. WBC 7.5. Hemoglobin 8.4. Platelet count 214. Troponin negative 1. Lactic acid 1.7. 07/08/2017 The patient was seen and examined at the bedside on rounds with Dr. Aguilar. The patient states he continues to feel weak. He states he does not have much of an appetite. He denies nausea or vomiting at this time. He states he did eat a little bit of his clear liquid tray. He denies chest pain or pressure. He denies shortness of breath. 07/09/2017 Patient seen and examined at the bedside. Patient remains lethargic. Patient' s hemoglobin this morning is 7.0 down from 8.4 yesterday. The patient is to receive 1 unit of packed RBCs. He was started on Aranesp per nephrology. Reticulocyte count is 3.1%. Patient's BUN is 26 and creatinine 7.14. Nephrology has been consulted and the patient is scheduled for hemodialysis today. Physical therapy was consulted yesterday secondary to generalized weakness. Patient refused to work with physical therapy yesterday because he stated he could not bear weight on his right lower extremity. Patient has had a few episodes of hypoglycemia ranging from 41-57 and was treated with orange juice per nursing staff. His blood sugar this morning is 118. He remains on a consistent carbohydrate and heart healthy diet. His intake has been decreased secondary to lack of appetite 07/10/2017-Notes per Dr. Aguilar 07/11/2017-Notes per Dr. Aguilar 07/12/2017-Notes per Dr. Aguilar 07/13/2017 Patient seen and examined at the bedside. Patient remains sleepy but easily arousable. Patient is currently complaining of nausea and vomiting and continues to have episodes of emesis with bilious outpatient. He also states that sometimes he is just experiencing dry heaves. He states he is eating small amount of clear liquids. He states he is not having abdominal pain but states his abdomen is slightly sore from throwing up. His blood pressure remains elevated. He is unable to tolerate PO medications and was switched to Hydralazine IV per Dr. Aguilar. Patient was febrile last night at 100.9. This morning his temperature is 99.0. Urine culture from 07/08/2017 is negative at 18 hour shayne. Urine culture ordered on 07/12/2017 remains uncollected. Blood cultures from 07/12/2017 are currently pending. Nephrology is on consult. The patient is scheduled to undergo dialysis tomorrow. His last session was on Wednesday instead of Wednesday secondary to the holiday. Dr. Sy is following secondary to diabetic wound on right foot. Patient follows up outpatient in the wound center. The patient's doxycycline was discontinued and he was started on vancomycin per Dr. Sy. Also recommend continuing Santyl to ulcerations and then wrapping with gauze. Objective - Vital Signs Vital signs: Vital Signs Temp 99.0 F 07/13/17 07:00 Pulse 94 07/13/17 07:00 Resp 16 07/13/17 07:00 BP 169/93 07/13/17 07:00 Pulse Ox 96 07/13/17 02:39 Intake & Output 07/12/17 07/13/17 07/13/17 18:59 06:59 18:59 Intake Total 260 Output Total 100 650 Balance 160 -650 Intake: IV 160 Sodium Chloride 0.9% 1, 160 000 ml @ 20 mls/hr IV . Q24H [facility] Rx#:[id number] Oral 100 Output: Urine 450 Emesis 100 Oral Regurgitation 200 Other: Voiding Method Urinal Urinal # Voids 0 - Exam GENERAL: This is a 46-year-old male in no apparent distress at the time of examination. Appears lethargic but arousable to verbal stimuli. HEENT: Head is atraumatic, normocephalic. Pupils are equal, round, and reactive to light. Sclerae anicteric. Conjunctivae are clear. Mucus membranes of the mouth are moist. Neck is supple. RESPIRATORY: Diminished with scattered rhonchi. No use of accessory muscles. Patient maintaining oxygen saturation greater than 92%. No chest wall tenderness is noted on palpation or with deep breathing. CARDIOVASCULAR: Regular rate and rhythm. S1 and S2 noted. No systolic or diastolic murmur auscultated. No JVD noted. No S3 or S4 noted. GASTROINTESTINAL: No distention noted. Abdomen soft and round. Bowel sounds auscultated X 4 quadrants. No pain or tenderness noted upon palpation. INTEGUMENTARY: Chronic wound to right foot. Currently wrapped with gauze. No cyanosis. No jaundice. No rashes noted. EXTREMITIES: Left below the knee amputation. Right partial foot amputation. 2 + peripheral pulses. No evidence of peripheral edema. No calf tenderness noted. NEUROLOGIC: Cranial nerves II-XII intact. PSYCHIATRIC: Oriented 3. Flat affect. - Labs CBC & Chem 7: 07/13/17 06:49 07/13/17 06:49 Labs: Abnormal Lab Results - Last 24 Hours (Table) 07/12/17 07/12/17 07/12/17 Range/Units 11:09 16:55 20:43 RBC (4.30-5.90) m/uL Hgb (13.0-17.5) gm/dL Hct (39.0-53.0) % MCHC (31.0-37.0) g/dL RDW (11.5-15.5) % BUN (9-20) mg/dL Creatinine (0.66-1.25) mg/dL Glucose (74-99) mg/dL POC Glucose (mg/dL) 133 H 112 H 113 H (75-99) mg/dL Albumin (3.5-5.0) g/dL 07/13/17 07/13/17 07/13/17 Range/Units 06:46 06:49 06:49 RBC 3.13 L (4.30-5.90) m/uL Hgb 9.2 L (13.0-17.5) gm/dL Hct 30.2 L (39.0-53.0) % MCHC 30.4 L (31.0-37.0) g/dL RDW 19.9 H (11.5-15.5) % BUN 34 H (9-20) mg/dL Creatinine 7.25 H* (0.66-1.25) mg/dL Glucose 127 H (74-99) mg/dL POC Glucose (mg/dL) 116 H (75-99) mg/dL Albumin 3.1 L (3.5-5.0) g/dL Assessment and Plan Plan: ASSESSMENT: Anemia of chronic disease, secondary to chronic kidney disease, requiring 2 blood transfusions within the last 2 weeks during dialysis, s/p 1 unit RBC transfusion on 06/28/2017, patient started on Aranesp per nephrology Generalized weakness and fatigue, possibly secondary to above and multiple co- morbidities End-stage renal disease, currently on hemodialysis Nausea and vomiting, likely secondary to diabetic gastroparesis Recent hospitalization for peritonitis with infected peritoneal dialysis catheter Diabetes mellitus, type II, previous hemoglobin A1c 9.9%, current hemoglobin A1c 6.3% Diabetic ulcer to right plantar foot and right lateral leg, status post surgical debridement on 07/01/2017 Coronary artery disease with previous myocardial infarction Peripheral vascular disease with history of left BKA and right partial foot amputation History of MRSA infection in left lower extremity Hypertension History of seizures PLAN: -Nephrology on consult. Appreciate recommendations and input -Patient to undergo dialysis tomorrow. His schedule is Wednesday, Wednesday, Wednesday -Dr. Sy on consult secondary to chronic wound of right foot -Doxycycline has been discontinued and patient remains on vancomycin per ID -Continue Santyl to plantar foot and right lateral leg wound -Await results of blood cultures -Obtain urine culture from 07/12/2017 -Increase hydralazine to 15mg IV every [address] Aguilar -Oral intake as tolerated. Patient states he has been taking in small amounts of liquids -Continue Zofran and Compazine PRN -Change Reglan to 10 mg IV every 6 hours scheduled -Convert antiseizure medications to IV -Convert Synthroid to 25mcg IV daily -Clear liquid diet-advance as tolerated -Oral meds as tolerated -Capillary blood glucose Accu-Cheks AC/HS -Continue NovoLog sliding scale insulin coverage AC/HS -Continue to hold Lantus -PT/OT -Monitor labs -GI prophylaxis: Protonix 40 mg IV daily -DVT prophylaxis: Sequential compression devices -Monitor vital signs and address as appropriate -Discharge planning: Patient wishes to return home at the time of discharge with homecare -Further recommendations pending patient's course Nurse practitioner note has been reviewed by physician. Signing provider agrees with the documented findings, assessment, and plan of care.
[2017-07-13] MEDS: METOCLOPRAMIDE 5 MG/ML 2 ML VIAL IVP SCH ×2 (12:42→18:39)
--- NOTE | 2017-07-13 15:09 | PN ---
PROGRESS NOTE Patient is seen for followup for end-stage renal disease, he was admitted to the hospital with nausea and vomiting, most likely secondary to gastroparesis. He still is not able to tolerate good oral intake. The patient is normally on a Wednesday, Wednesday, Wednesday schedule. He had his dialysis on Wednesday and we will dialyze him tomorrow. EXAMINATION: Blood pressure is 169/93, heart rate 94 per minute. He is afebrile. Examination of the heart S1, S2. Examination of the lungs decreased breath sounds at the bases. Abdomen is soft, nontender. Examination of the lower extremities shows no significant edema and the patient has a left BKA and a transmetatarsal amputation on the left side. LABS SHOW: Sodium 140, potassium 3.8, hemoglobin 9.2 g/dL. ASSESSMENT: 1. End-stage renal disease, on hemodialysis on a Wednesday, Wednesday, Wednesday schedule. We will arrange for hemodialysis in a.m. 2. Nausea and vomiting secondary to diabetic gastroparesis, still not completely improved. The patient is maintained on Compazine, Protonix, Zofran and Reglan. 3. Anemia of chronic disease maintained on Aranesp. 4. Type 2 diabetes. PLAN: Hemodialysis in a.m.. MMODL / IJN: [id number] /
[2017-07-13 17:01] LABS: Glucose,Whole Blood 119 mg/dL (75-99)
[2017-07-13] MEDS: TAMSULOSIN 0.4 MG CAP.ER.24H PO SCH (19:10)
[2017-07-13 20:52] LABS: Glucose,Whole Blood 117 mg/dL (75-99)
[2017-07-13] MEDS: MUPIROCIN 2% OINT 22 GM TUBE TOPICAL SCH (21:56)
[2017-07-13] MEDS: COLLAGENASE 250 UNIT/GM OINTMENT 30 GM TUBE TOPICAL SCH (21:56)
[2017-07-13] MEDS: ATORVASTATIN 80 MG TAB PO SCH (21:57)
[2017-07-13] MEDS: levETIRAcetam IV 750 MG in SODIUM CHLORIDE 0.9% 100 ML IVPB SCH (21:58)
--- NOTE | 2017-07-13 23:47 | P.PN ---
Subjective Progress Note Date: 07/13/17 Principal diagnosis: Nausea and emesis 6-year-old male with long-standing history of diabetes mellitus who has multiple end organ complications that include peripheral vascular disease with prior amputation as well as end-stage renal disease on hemodialysis. Early this year he had great difficulty with sepsis and had evidence of peritonitis related to his peritoneal dialysis. Staph aureus sepsis had occurred and eventually the dialysis catheter was removed and he has now been treated with hemodialysis. Isn't following the wound healing Center for a diabetic foot ulceration, most recently seen 07/06/2017 for debridement. Patient had evidence of a significant infection to the site and antibiotic therapy was started with doxycycline. Patient has a known history of diabetic gastroparesis. The patient relates in the days following he's had a flare of his gastroparesis and has had active emesis today. He is denying high-grade fever chills or rigors or sweats. But of course feels very poorly because of the emesis after each meal that he is suffering from. Has noticed no gastrointestinal distress related to the starting of the doxycycline but has had worsening of his gastroparesis. He is denying fevers, chills or rigors. Generally feels poorly. After stopping doxycycline was improved but after 2 dialysis sessions is now feeling considerably worse again. Receiving some IV hydration and IV Zofran Objective - Vital Signs Vital signs: Vital Signs Temp 97.7 F 07/13/17 21:54 Pulse 84 07/13/17 21:54 Resp 12 07/13/17 21:54 BP 168/93 07/13/17 21:54 Pulse Ox 96 07/13/17 14:26 Intake & Output 07/13/17 07/13/17 07/14/17 06:59 18:59 06:59 Intake Total 50 Output Total 650 300 Balance -650 50 -300 Weight 86.183 kg Intake: IV 50 Valproate Sodium 250 mg 50 In Sodium Chloride 0.9% 50 ml @ 50 mls/hr IVPB Q8HR [facility] Rx#:[id number] Output: Urine 450 300 Oral Regurgitation 200 Other: Voiding Method Urinal Urinal Urinal # Voids 0 - Exam HEENT: Anicteric conjunctiva are pink and moist nasal mucosa grossly intact without significant lesions, there is no thrush. Neck: The neck is supple without significant lymphadenopathy or thyromegaly. Lungs: Good bilateral air entry without significant crackles or wheezing. There is no significant bronchial sounds. There is no egophony or dullness. Heart: Regular rate and rhythm with an audible S1-S2, no S3 no S4. There is no significant murmur click or rub, PMI was nondisplaced. Abdomen: the abdomen is soft his minimal tenderness in the epigastrium. No guarding or rebound. No palpable masses or organomegaly. Extremities: The upper extremities have excellent pulses they are symmetric, no significant petechiae or telangiectasia. No splinter hemorrhages were noted. residual limb to the left is evidence of dry skin but no open ulcerations are seen. Right lower extremity has evidence of the ulcerations including the right lateral leg at0.4 x 0.4 x 0.1 cm, right foot plantar measuring at 5 x 6 x 0.2 cm. Neuro: Awake alert oriented to person place and time. There are no acute new gross focal sensory motor deficits.has peripheral neuropathy noted. - Labs CBC & Chem 7: 07/13/17 06:49 07/13/17 06:49 Labs: Abnormal Lab Results - Last 24 Hours (Table) 07/13/17 07/13/17 07/13/17 Range/Units 06:46 06:49 06:49 RBC 3.13 L (4.30-5.90) m/uL Hgb 9.2 L (13.0-17.5) gm/dL Hct 30.2 L (39.0-53.0) % MCHC 30.4 L (31.0-37.0) g/dL RDW 19.9 H (11.5-15.5) % BUN 34 H (9-20) mg/dL Creatinine 7.25 H* (0.66-1.25) mg/dL Glucose 127 H (74-99) mg/dL POC Glucose (mg/dL) 116 H (75-99) mg/dL Albumin 3.1 L (3.5-5.0) g/dL 07/13/17 07/13/17 07/13/17 Range/Units 11:38 16:52 20:49 RBC (4.30-5.90) m/uL Hgb (13.0-17.5) gm/dL Hct (39.0-53.0) % MCHC (31.0-37.0) g/dL RDW (11.5-15.5) % BUN (9-20) mg/dL Creatinine (0.66-1.25) mg/dL Glucose (74-99) mg/dL POC Glucose (mg/dL) 129 H 119 H 117 H (75-99) mg/dL Albumin (3.5-5.0) g/dL Microbiology - Last 24 Hours (Table) 07/12/17 10:04 Blood Culture - Preliminary Blood No Growth after 24 hours 07/12/17 10:22 Blood Culture - Preliminary Blood No Growth after 24 hours Laboratory Results WBC 7.0 k/uL (3.8-10.6) 07/13/17 06:49 RBC 3.13 m/uL (4.30-5.90) L 07/13/17 06:49 Hgb 9.2 gm/dL (13.0-17.5) L 07/13/17 06:49 Hct 30.2 % (39.0-53.0) L 07/13/17 06:49 MCV 96.3 fL (80.0-100.0) 07/13/17 06:49 MCH 29.3 pg (25.0-35.0) 07/13/17 06:49 MCHC 30.4 g/dL (31.0-37.0) L 07/13/17 06:49 RDW 19.9 % (11.5-15.5) H 07/13/17 06:49 Plt Count 201 k/uL (150-450) 07/13/17 06:49 Neutrophils % 74 % 07/13/17 06:49 Lymphocytes % 14 % 07/13/17 06:49 Monocytes % 7 % 07/13/17 06:49 Eosinophils % 1 % 07/13/17 06:49 Basophils % 0 % 07/13/17 06:49 Neutrophils # 5.2 k/uL (1.3-7.7) 07/13/17 06:49 Lymphocytes # 1.0 k/uL (1.0-4.8) 07/13/17 06:49 Monocytes # 0.5 k/uL (0-1.0) 07/13/17 06:49 Eosinophils # 0.1 k/uL (0-0.7) 07/13/17 06:49 Basophils # 0.0 k/uL (0-0.2) 07/13/17 06:49 Hypochromasia Slight 07/13/17 06:49 Poikilocytosis Slight 07/12/17 10:22 Anisocytosis Slight 07/13/17 06:49 Macrocytosis Slight 07/13/17 06:49 ESR 77 mm/hr (0-15) H 07/10/17 08:02 Retic Count 3.1 % (0.5-2.0) H 07/08/17 15:43 PT 10.0 sec (9.0-12.0) 07/07/17 22:09 INR 1.0 (<1.2) 07/07/17 22:09 APTT 23.3 sec (22.0-30.0) 07/07/17 22:09 Sodium 140 mmol/L (137-145) 07/13/17 06:49 Potassium 3.8 mmol/L (3.5-5.1) 07/13/17 06:49 Chloride 101 mmol/L (98-107) 07/13/17 06:49 Carbon Dioxide 23 mmol/L (22-30) 07/13/17 06:49 Anion Gap 16 mmol/L 07/13/17 06:49 BUN 34 mg/dL (9-20) H 07/13/17 06:49 Creatinine 7.25 mg/dL (0.66-1.25) H* 07/13/17 06:49 Est GFR (MDRD) Af Amer 10 (>60 ml/min/1.73 sqM) 07/13/17 06:49 Est GFR (MDRD) Non-Af 8 (>60 ml/min/1.73 sqM) 07/13/17 06:49 Glucose 127 mg/dL (74-99) H 07/13/17 06:49 POC Glucose (mg/dL) 117 mg/dL (75-99) H 07/13/17 20:49 POC Glu Slicing Machine Feeder ID Alina Starr 07/13/17 20:[address] Glu mg/dL 120 07/10/17 08:02 Hemoglobin A1c 5.8 % (4.0-6.0) 07/10/17 08:02 Plasma Lactic Acid Massimo 1.7 mmol/L (0.7-2.0) 07/07/17 22:09 Calcium 8.9 mg/dL (8.4-10.2) 07/13/17 06:49 Magnesium 2.0 mg/dL (1.6-2.3) 07/13/17 06:49 Iron 27 ug/dL (65-175) L 07/09/17 06:46 TIBC 226 ug/dL (228-460) L 07/09/17 06:46 Iron Saturation 11.95 (15.00-50.00) L 07/09/17 06:46 Total Bilirubin 0.4 mg/dL (0.2-1.3) 07/13/17 06:49 AST 22 U/L (17-59) 07/13/17 06:49 ALT 25 U/L (21-72) 07/13/17 06:49 Alkaline Phosphatase 107 U/L (38-126) 07/13/17 06:49 Total Creatine Kinase 93 U/L (55-170) 07/07/17 22:09 CK-MB (CK-2) 4.5 ng/mL (0.0-2.4) H* 07/07/17 22:09 CK-MB (CK-2) Rel Index 4.8 07/07/17 22:09 Troponin I <0.012 ng/mL (0.000-0.034) 07/07/17 22:09 C-Reactive Protein 17.2 mg/L (<10.0) H 07/10/17 08:02 Total Protein 7.4 g/dL (6.3-8.2) 07/13/17 06:49 Albumin 3.1 g/dL (3.5-5.0) L 07/13/17 06:49 Prealbumin 23.0 mg/dL (18.0-42.0) 07/10/17 08:02 Urine Color Yellow 07/08/17 00:55 Urine Appearance Cloudy (Clear) 07/08/17 00:55 Urine pH 8.5 (5.0-8.0) H 07/08/17 00:55 Ur Specific [facility] 1.022 (1.001-1.035) 07/08/17 00:55 Urine Protein 4+ (Negative) H 07/08/17 00:55 Urine Glucose (UA) 3+ (Negative) H 07/08/17 00:55 Urine Ketones Negative (Negative) 07/08/17 00:55 Urine Blood Trace (Negative) H 07/08/17 00:55 Urine Nitrite Negative (Negative) 07/08/17 00:55 Urine Bilirubin Negative (Negative) 07/08/17 00:55 Urine Urobilinogen <2.0 mg/dL (<2.0) 07/08/17 00:55 Ur Leukocyte Esterase Negative (Negative) 07/08/17 00:55 Urine RBC 11 /hpf (0-5) H 07/08/17 00:55 Urine WBC 4 /hpf (0-5) 07/08/17 00:55 Ur Squamous Epith Cells 1 /hpf (0-4) 07/08/17 00:55 Urine Bacteria Rare /hpf (None) H 07/08/17 00:55 Hyaline Casts 11 /lpf (0-2) H 07/08/17 00:55 Urine Mucus Few /hpf (None) H 07/08/17 00:55 Random Vancomycin 36.0 ug/mL 07/12/17 07:47 Blood Type A Positive 07/09/17 09:01 Blood Type Recheck No 07/09/17 09:01 Antibody Screen NEGATIVE 07/09/17 09:01 Crossmatch See Detail 07/09/17 09:01 Spec Expiration Date 07/12/2017230007/09/17 09:01 Microbiology 07/12/17 10:04 Blood Blood Culture - Preliminary No Growth after 24 hours 07/12/17 10:22 Blood Blood Culture - Preliminary No Growth after 24 hours 07/08/17 00:55 Urine,Voided Urine Culture - Final Assessment and Plan (1) Vomiting Narrative/Plan: 46-year-old male presents to Hospital feeling very poorly with weakness and ongoing nausea and emesis. Is not is a long-standing history diabetes mellitus with multiple complications that included chronic renal failure requiring hemodialysis as well as peripheral vascular disease. Isn't following wound healing Center for right lower extremity ulcerations. Continue Santyl to the open ulcerations moistened gauze and wrap them into place. Continue to offload the sites. Patient evidence of enterococcus and MRSA at the foot wound ulcer site. Antibiotic therapy was started with doxycycline. However appears to be intolerant to this with much worsening of his gastroparesis with nausea and emesis. consequently doxycycline was discontinued. Vancomycin has been started and is well tolerated. Attempt will be for outpatient vancomycin therapy at dialysis. he is following nephrology will have hemodialysis per their protocol. We will monitor. Current Visit: Yes Status: Acute Code(s): R11.10 - VOMITING, UNSPECIFIED SNOMED Code(s): 957437265 (2) Chronic renal failure, stage 4 (severe) Current Visit: No Status: Acute Code(s): N18.4 - CHRONIC KIDNEY DISEASE, STAGE 4 (SEVERE) SNOMED Code(s): 88513199 (3) Diabetes mellitus type 2 with complications, uncontrolled Current Visit: Yes Status: Acute Code(s): E11.8 - TYPE 2 DIABETES MELLITUS WITH UNSPECIFIED COMPLICATIONS; E11.65 - TYPE 2 DIABETES MELLITUS WITH HYPERGLYCEMIA SNOMED Code(s): 610151385 (4) Diabetic ulcer of right foot associated with diabetes mellitus due to underlying condition, with fat layer exposed Current Visit: Yes Status: Acute Code(s): E08.621 - DIABETES MELLITUS DUE TO UNDERLYING CONDITION W FOOT ULCER; L97.512 - NON-PRS CHRONIC ULCER OTH PRT RIGHT FOOT W FAT LAYER EXPOSED SNOMED Code(s): 189255335
[2017-07-14] MEDS: METOCLOPRAMIDE 5 MG/ML 2 ML VIAL IVP SCH ×4 (01:53→18:15)
[2017-07-14] MEDS: SODIUM CHLORIDE 0.9% 1,000 ML IV SCH (01:53)
[2017-07-14] MEDS: hydrALAZINE HCL 20 MG/ML 1 ML VIAL IV SCH ×7 (01:57→22:08)
[2017-07-14 06:53] LABS: Glucose,Whole Blood 115 mg/dL (75-99)
[2017-07-14] MEDS: CALCIUM ACETATE 667 MG CAP PO SCH ×3 (07:11→20:59)
[2017-07-14] MEDS: INSULIN ASPART 100 UNIT/ML 1 ML 10 ML VIAL SQ SCH ×4 (07:11→22:07)
[2017-07-14] MEDS: SEVELAMER 800 MG TAB PO SCH ×3 (07:12→20:59)
[2017-07-14] MEDS: ONDANSETRON 4 MG/2 ML VIAL IVP SCH ×3 (08:06→22:08)
[2017-07-14 08:10] LABS: Albumin 3.2 g/dL (3.5-5.0); Calcium 9.3 mg/dL (8.4-10.2); Potassium 4.5 mmol/L (3.5-5.1); Total Bilirubin 0.5 mg/dL (0.2-1.3); Total Protein 7.5 g/dL (6.3-8.2)
[2017-07-14] MEDS: AMIODARONE 200 MG TAB PO SCH ×2 (08:49→22:07)
[2017-07-14] MEDS: THIAMINE 100 MG TAB PO SCH (08:50)
[2017-07-14] MEDS: PANTOPRAZOLE 40 MG/10 ML VIAL IVP SCH (08:50)
[2017-07-14] MEDS: LEVOTHYROXINE IVP 100 MCG/5 ML VIAL IV SCH (08:50)
--- NOTE | 2017-07-14 09:31 | P.PN ---
Subjective Progress Note Date: 07/14/17 46-year-old male who presented to the emergency room on 07/07/2017 with a chief complaint of weakness. The patient had a recent hospitalization from 05/20/2017 until 06/01/2017 secondary to peritonitis. The patient was undergoing peritoneal dialysis at that time. His peers dialysis catheter was removed and he was temporarily transitioned to hemodialysis. At the time of discharge the patient was transferred to subacute rehab. The patient states he has been discharged from subacute rehab approximately one week and has been living at home. He states he has been attending hemodialysis Wednesdays and Fridays. He states he is also been seen Dr. Sy in the wound care center and saw him yesterday and he states his wound was debrided at that time. He says over the past week, he has felt increasingly more weak and fatigued. He states anytime he is trying to accomplish the task he becomes shaky and dizzy and is unable to complete it. The patient states he thinks it is secondary to his anemia. He states he has undergone 2 blood transfusions in the past 2 weeks during dialysis. The patient has a history of end-stage renal disease, coronary artery disease, diabetes mellitus with a recent hemoglobin A1c of 9.9%, deep vein thrombosis, gastroesophageal reflux disease, hypertension, hyperlipidemia, myocardial infarction, peripheral vascular disease with a left [id number] amputation and a right foot partial amputation. He has a history of MRSA in 2015 in his blood and left foot. In the emergency room a chest x-ray was completed which revealed stable mild cardiomegaly and mild vascular congestion. It was negative for pulmonary infiltrates. Laboratory studies completed revealed a sodium of 138. Potassium 3.7. BUN 17. Creatinine 4.7. WBC 7.5. Hemoglobin 8.4. Platelet count 214. Troponin negative 1. Lactic acid 1.7. 07/08/2017 The patient was seen and examined at the bedside on rounds with Dr. Aguilar. The patient states he continues to feel weak. He states he does not have much of an appetite. He denies nausea or vomiting at this time. He states he did eat a little bit of his clear liquid tray. He denies chest pain or pressure. He denies shortness of breath. 07/09/2017 Patient seen and examined at the bedside. Patient remains lethargic. Patient' s hemoglobin this morning is 7.0 down from 8.4 yesterday. The patient is to receive 1 unit of packed RBCs. He was started on Aranesp per nephrology. Reticulocyte count is 3.1%. Patient's BUN is 26 and creatinine 7.14. Nephrology has been consulted and the patient is scheduled for hemodialysis today. Physical therapy was consulted yesterday secondary to generalized weakness. Patient refused to work with physical therapy yesterday because he stated he could not bear weight on his right lower extremity. Patient has had a few episodes of hypoglycemia ranging from 41-57 and was treated with orange juice per nursing staff. His blood sugar this morning is 118. He remains on a consistent carbohydrate and heart healthy diet. His intake has been decreased secondary to lack of appetite 07/10/2017-Notes per Dr. Aguilar 07/11/2017-Notes per Dr. Aguilar 07/12/2017-Notes per Dr. Aguilar 07/13/2017 Patient seen and examined at the bedside. Patient remains sleepy but easily arousable. Patient is currently complaining of nausea and vomiting and continues to have episodes of emesis with bilious outpatient. He also states that sometimes he is just experiencing dry heaves. He states he is eating small amount of clear liquids. He states he is not having abdominal pain but states his abdomen is slightly sore from throwing up. His blood pressure remains elevated. He is unable to tolerate PO medications and was switched to Hydralazine IV per Dr. Aguilar. Patient was febrile last night at 100.9. This morning his temperature is 99.0. Urine culture from 07/08/2017 is negative at 18 hour shayne. Urine culture ordered on 07/12/2017 remains uncollected. Blood cultures from 07/12/2017 are currently pending. Nephrology is on consult. The patient is scheduled to undergo dialysis tomorrow. His last session was on Wednesday instead of Wednesday secondary to the holiday. Dr. Sy is following secondary to diabetic wound on right foot. Patient follows up outpatient in the wound center. The patient's doxycycline was discontinued and he was started on vancomycin per Dr. Sy. Also recommend continuing Santyl to ulcerations and then wrapping with gauze. 07/14/2017 Patient seen and examined at the bedside on rounds with Dr. Aguilar. The patient appears more awake this morning, but he states he continues to feel unwell and weak. He is undergoing hemodialysis. Nephrology is on consult. He states he has still been unable to tolerate liquids and was continuing to have episodes of emesis yesterday. His blood pressure remains elevated with a systolic blood pressure ranging from 170 to 190s. Repeat blood cultures from are negative at the 24 hour shayne. Urine culture remains uncollected. Dr. Sy is following secondary to diabetic wound on the right foot. He remains on vancomycin. Objective - Vital Signs Vital signs: Vital Signs Temp 99.5 F 07/14/17 07:00 Pulse 93 07/14/17 07:00 Resp 16 07/14/17 07:00 BP 185/89 07/14/17 07:00 Pulse Ox 94 L 07/14/17 07:00 Intake & Output 07/13/17 07/14/17 07/14/17 18:59 06:59 18:59 Intake Total 50 390 Output Total 300 Balance 50 90 Weight 86.183 kg Intake: IV 50 290 Sodium Chloride 0.9% 1, 240 000 ml @ 20 mls/hr IV . Q24H TRAE Rx#:[id number] Valproate Sodium 250 mg 50 50 In Sodium Chloride 0.9% 50 ml @ 50 mls/hr IVPB Q8HR TRAE Rx#:[id number] Intake, IV Titration 100 Amount levETIRAcetam IV 750 mg 100 In Sodium Chloride 0.9% 100 ml @ 400 mls/hr IVPB Q12HR TRAE Rx#:[id number] Output: Urine 300 Other: Voiding Method Urinal Urinal - Exam GENERAL: This is a 46-year-old male in no apparent distress at the time of examination. HEENT: Head is atraumatic, normocephalic. Pupils are equal, round, and reactive to light. Sclerae anicteric. Conjunctivae are clear. Mucus membranes of the mouth are moist. Neck is supple. RESPIRATORY: Diminished with scattered rhonchi. No use of accessory muscles. Patient maintaining oxygen saturation greater than 92%. No chest wall tenderness is noted on palpation or with deep breathing. CARDIOVASCULAR: Regular rate and rhythm. S1 and S2 noted. No systolic or diastolic murmur auscultated. No JVD noted. No S3 or S4 noted. GASTROINTESTINAL: No distention noted. Abdomen soft and round. Bowel sounds auscultated X 4 quadrants. No pain or tenderness noted upon palpation. INTEGUMENTARY: Chronic wound to right foot. Currently wrapped with gauze. No cyanosis. No jaundice. No rashes noted. EXTREMITIES: Left below the knee amputation. Right partial foot amputation. 2 + peripheral pulses. No evidence of peripheral edema. No calf tenderness noted. NEUROLOGIC: Cranial nerves II-XII intact. PSYCHIATRIC: Oriented 3. Flat affect. - Labs CBC & Chem 7: 07/13/17 06:49 07/14/17 06:47 Labs: Abnormal Lab Results - Last 24 Hours (Table) 07/13/17 07/13/17 07/13/17 Range/Units 11:38 16:52 20:49 Chloride (98-107) mmol/L Carbon Dioxide (22-30) mmol/L BUN (9-20) mg/dL Creatinine (0.66-1.25) mg/dL Glucose (74-99) mg/dL POC Glucose (mg/dL) 129 H 119 H 117 H (75-99) mg/dL Albumin (3.5-5.0) g/dL 07/14/17 07/14/17 Range/Units 06:47 06:51 Chloride 109 H (98-107) mmol/L Carbon Dioxide 20 L (22-30) mmol/L BUN 55 H (9-20) mg/dL Creatinine 9.42 H* (0.66-1.25) mg/dL Glucose 138 H (74-99) mg/dL POC Glucose (mg/dL) 115 H (75-99) mg/dL Albumin 3.2 L (3.5-5.0) g/dL Microbiology - Last 24 Hours (Table) 07/12/17 10:04 Blood Culture - Preliminary Blood No Growth after 24 hours 07/12/17 10:22 Blood Culture - Preliminary Blood No Growth after 24 hours Assessment and Plan Plan: ASSESSMENT: Anemia of chronic disease, secondary to chronic kidney disease, requiring 2 blood transfusions within the last 2 weeks during dialysis, s/p 1 unit RBC transfusion on 06/28/2017, patient started on Aranesp per nephrology Generalized weakness and fatigue, possibly secondary to above and multiple co- morbidities End-stage renal disease, currently on hemodialysis Nausea and vomiting, likely secondary to diabetic gastroparesis Recent hospitalization for peritonitis with infected peritoneal dialysis catheter Diabetes mellitus, type II, previous hemoglobin A1c 9.9%, current hemoglobin A1c 6.3% Diabetic ulcer to right plantar foot and right lateral leg, status post surgical debridement on 07/01/2017 Coronary artery disease with previous myocardial infarction Peripheral vascular disease with history of left BKA and right partial foot amputation History of MRSA infection in left lower extremity Hypertension History of seizures PLAN: -Nephrology on consult. Appreciate recommendations and input -Patient to undergo dialysis today. His schedule is Wednesday, Wednesday, Wednesday -Dr. Sy on consult secondary to chronic wound of right foot -Doxycycline has been discontinued and patient remains on vancomycin per ID -Continue Santyl to plantar foot and right lateral leg wound -Obtain urine culture from 07/12/2017 if possible -Increase hydralazine to 20mg IV every [address] Aguilar -Oral intake as tolerated -Continue Zofran, Compazine, Reglan, and Protonix -Attempt scopolamine patches for nausea -Clear liquid diet-advance as tolerated -Oral meds as tolerated -Capillary blood glucose Accu-Cheks AC/HS -Continue NovoLog sliding scale insulin coverage AC/HS -Continue to hold Lantus -PT/OT -Monitor labs -GI prophylaxis: Protonix 40 mg IV daily -DVT prophylaxis: Sequential compression devices -Monitor vital signs and address as appropriate -Discharge planning: Patient wishes to return home at the time of discharge with homecare -Further recommendations pending patient's course Nurse practitioner note has been reviewed by physician. Signing provider agrees with the documented findings, assessment, and plan of care.
[2017-07-14] MEDS ORDERED: SCOPOLAMINE 1.5MG/72HR PATCH TRANSDERM SCH (10:00)
[2017-07-14] MEDS: FOLIC ACID-VIT B COMPLEX-VIT C 1 CAP PO SCH ×3 (10:02→22:07)
[2017-07-14 11:24] LABS: Glucose,Whole Blood 109 mg/dL (75-99)
[2017-07-14] MEDS: levETIRAcetam IV 750 MG in SODIUM CHLORIDE 0.9% 100 ML IVPB SCH ×2 (11:30→22:08)
--- NOTE | 2017-07-14 12:22 | HP ---
HISTORY AND PHYSICAL This is a 46-year-old gentleman who has history of chronic renal failure. Patient is scheduled to have a left upper arm AV fistula graft. Patient having dialysis through the catheter. MEDICAL HISTORY: Includes history of diabetes, hypertension, peripheral vascular disease. PHYSICAL EXAMINATION: Neck is supple. Trachea is central. Chest is clear to auscultation. Abdomen is soft. Femorals are palpable. Patient has a left BK amputation done in the past and also patient is transmetatarsal amputation right foot out of [place]. We did the venous mapping on the left arm. Patient has a small cephalic vein and basilic vein. We will place a left upper arm [place] F graft. Risks and complication discussed. Patient had an echogram with ejection fraction 55% to 60%. The patient is under care of Dr. Hough. I have discussed with Dr. Hough for medical clearance and will proceed for for the fistula graft. MMODL / IJN: [id number] /
[2017-07-14] MEDS: VALPROATE SODIUM 250 MG in SODIUM CHLORIDE 0.9% 50 ML IVPB SCH ×2 (13:30→15:33)
--- NOTE | 2017-07-14 15:28 | CDI ---
Last Revision, June 2017 Documentation Clarification Form Date: 07/14/2017 2:53:00 PM From: Otilia Hines Admit Date: 07/11/2017 8:01:00 AM Patient Name: Greg Miles Visit Number: [id number] Discharge Date: ATTENTION: The Clinical Documentation Specialists (CDI) and [facility] Coding Staff appreciate your assistance in clarifying documentation. Please respond to the clarification below the line at the bottom and electronically sign. The CDI & [facility] Coding staff will review the response and follow-up if needed. Please note: Queries are made part of the Legal Health Record. If you have any questions, please contact the author of this message via ITS. Dr. Scott Aguilar Acute Encephalopathy is documented in the ongoing progress notes 07/10/17-07/12/17 History/Risk factors: Diabetes Mellitus type 2, End-stage renal disease on HD, Chronic anemia, Coronary Artery Disease, Hypertension, Seizure disorder, Diabetic gastroparesis, Clinical Indicators: Present with complaints of generalized weakness, uncoordinated. He complained of nausea and vomiting times one. In emergency department complaints of weakness, nausea and vomiting. . Vital signs: 174/85 83 20 97.9 Labs: HGB 8.4, CR 4.7, GFR 14, Treatment: Continue Hemodialysis (per Nephrology) Monitor Labs Reglan IVP Zofran IV In your professional opinion, can you please clarify the specific type of encephalopathy, if known? Metabolic Encephalopathy Hypertensive Encephalopathy Septic Encephalopathy Toxic Encephalopathy Hepatic Encephalopathy, if indicated, please clarify: Indicate if any complications: Coma, other disease process? Indicate whether acute, sub-acute or chronic? Causal Condition: Alcoholism, Hepatitis, other disease process? Other, please specify Unable to determine Please continue to document in your progress notes and discharge summary in order to capture severity of illness and risk of mortality. Include clinical findings that support your diagnosis. MTDD
[2017-07-14 16:45] LABS: Glucose,Whole Blood 109 mg/dL (75-99)
[2017-07-14 20:21] LABS: Glucose,Whole Blood 116 mg/dL (75-99)
[2017-07-14] MEDS: TAMSULOSIN 0.4 MG CAP.ER.24H PO SCH (21:00)
[2017-07-14] MEDS: ATORVASTATIN 80 MG TAB PO SCH (22:07)
[2017-07-14] MEDS: COLLAGENASE 250 UNIT/GM OINTMENT 30 GM TUBE TOPICAL SCH (22:29)
[2017-07-14] MEDS: MUPIROCIN 2% OINT 22 GM TUBE TOPICAL SCH (22:29)
[2017-07-14] MEDS: ERYTHROMYCIN IV 250 MG in SODIUM CHLORIDE 0.9% 250 ML IVPB SCH (23:20)
--- NOTE | 2017-07-14 23:51 | P.PN ---
Subjective Progress Note Date: 07/14/17 Principal diagnosis: Nausea and emesis 6-year-old male with long-standing history of diabetes mellitus who has multiple end organ complications that include peripheral vascular disease with prior amputation as well as end-stage renal disease on hemodialysis. Early this year he had great difficulty with sepsis and had evidence of peritonitis related to his peritoneal dialysis. Staph aureus sepsis had occurred and eventually the dialysis catheter was removed and he has now been treated with hemodialysis. Isn't following the wound healing Center for a diabetic foot ulceration, most recently seen 07/06/2017 for debridement. Patient had evidence of a significant infection to the site and antibiotic therapy was started with doxycycline. Patient has a known history of diabetic gastroparesis. The patient relates in the days following he's had a flare of his gastroparesis and has had active emesis today. He is denying high-grade fever chills or rigors or sweats. But of course feels very poorly because of the emesis after each meal that he is suffering from. Has noticed no gastrointestinal distress related to the starting of the doxycycline but has had worsening of his gastroparesis. He is denying fevers, chills or rigors. Generally feels poorly. After stopping doxycycline was improved but is again having some nausea and emesis. This is despite multiple medications and rehydration after dialysis. Objective - Vital Signs Vital signs: Vital Signs Temp 99.4 F 07/14/17 22:15 Pulse 95 07/14/17 22:15 Resp 16 07/14/17 22:19 BP 206/104 07/14/17 22:15 Pulse Ox 94 L 07/14/17 22:15 Intake & Output 07/14/17 07/14/17 07/15/17 06:59 18:59 06:59 Intake Total 390 100 160 Output Total 300 Balance 90 100 160 Intake: IV 290 100 60 Sodium Chloride 0.9% 1, 240 60 000 ml @ 20 mls/hr IV . Q24H TRAE Rx#:[id number] Valproate Sodium 250 mg 50 100 In Sodium Chloride 0.9% 50 ml @ 50 mls/hr IVPB Q8HR TRAE Rx#:[id number] Intake, IV Titration 100 100 Amount levETIRAcetam IV 750 mg 100 100 In Sodium Chloride 0.9% 100 ml @ 400 mls/hr IVPB Q12HR TRAE Rx#:[id number] Output: Urine 300 Other: Voiding Method Urinal Urinal Urinal - Exam HEENT: Anicteric conjunctiva are pink and moist nasal mucosa grossly intact without significant lesions, there is no thrush. Neck: The neck is supple without significant lymphadenopathy or thyromegaly. Lungs: Good bilateral air entry without significant crackles or wheezing. There is no significant bronchial sounds. There is no egophony or dullness. Heart: Regular rate and rhythm with an audible S1-S2, no S3 no S4. There is no significant murmur click or rub, PMI was nondisplaced. Abdomen: the abdomen is soft his minimal tenderness in the epigastrium. No guarding or rebound. No palpable masses or organomegaly. Extremities: The upper extremities have excellent pulses they are symmetric, no significant petechiae or telangiectasia. No splinter hemorrhages were noted. residual limb to the left is evidence of dry skin but no open ulcerations are seen. Right lower extremity has evidence of the ulcerations including the right lateral leg at0.4 x 0.4 x 0.1 cm, right foot plantar measuring at 5 x 6 x 0.2 cm. Neuro: Awake alert oriented to person place and time. There are no acute new gross focal sensory motor deficits.has peripheral neuropathy noted. - Labs CBC & Chem 7: 07/13/17 06:49 07/14/17 06:47 Labs: Abnormal Lab Results - Last 24 Hours (Table) 07/14/17 07/14/17 07/14/17 Range/Units 06:47 06:51 11:20 Chloride 109 H (98-107) mmol/L Carbon Dioxide 20 L (22-30) mmol/L BUN 55 H (9-20) mg/dL Creatinine 9.42 H* (0.66-1.25) mg/dL Glucose 138 H (74-99) mg/dL POC Glucose (mg/dL) 115 H 109 H (75-99) mg/dL Albumin 3.2 L (3.5-5.0) g/dL 07/14/17 07/14/17 Range/Units 16:43 19:51 Chloride (98-107) mmol/L Carbon Dioxide (22-30) mmol/L BUN (9-20) mg/dL Creatinine (0.66-1.25) mg/dL Glucose (74-99) mg/dL POC Glucose (mg/dL) 109 H 116 H (75-99) mg/dL Albumin (3.5-5.0) g/dL Microbiology - Last 24 Hours (Table) 07/12/17 10:04 Blood Culture - Preliminary Blood No Growth after 48 hours 07/12/17 10:22 Blood Culture - Preliminary Blood No Growth after 48 hours Laboratory Results WBC 7.0 k/uL (3.8-10.6) 07/13/17 06:49 RBC 3.13 m/uL (4.30-5.90) L 07/13/17 06:49 Hgb 9.2 gm/dL (13.0-17.5) L 07/13/17 06:49 Hct 30.2 % (39.0-53.0) L 07/13/17 06:49 MCV 96.3 fL (80.0-100.0) 07/13/17 06:49 MCH 29.3 pg (25.0-35.0) 07/13/17 06:49 MCHC 30.4 g/dL (31.0-37.0) L 07/13/17 06:49 RDW 19.9 % (11.5-15.5) H 07/13/17 06:49 Plt Count 201 k/uL (150-450) 07/13/17 06:49 Neutrophils % 74 % 07/13/17 06:49 Lymphocytes % 14 % 07/13/17 06:49 Monocytes % 7 % 07/13/17 06:49 Eosinophils % 1 % 07/13/17 06:49 Basophils % 0 % 07/13/17 06:49 Neutrophils # 5.2 k/uL (1.3-7.7) 07/13/17 06:49 Lymphocytes # 1.0 k/uL (1.0-4.8) 07/13/17 06:49 Monocytes # 0.5 k/uL (0-1.0) 07/13/17 06:49 Eosinophils # 0.1 k/uL (0-0.7) 07/13/17 06:49 Basophils # 0.0 k/uL (0-0.2) 07/13/17 06:49 Hypochromasia Slight 07/13/17 06:49 Poikilocytosis Slight 07/12/17 10:22 Anisocytosis Slight 07/13/17 06:49 Macrocytosis Slight 07/13/17 06:49 ESR 77 mm/hr (0-15) H 07/10/17 08:02 Retic Count 3.1 % (0.5-2.0) H 07/08/17 15:43 PT 10.0 sec (9.0-12.0) 07/07/17 22:09 INR 1.0 (<1.2) 07/07/17 22:09 APTT 23.3 sec (22.0-30.0) 07/07/17 22:09 Sodium 144 mmol/L (137-145) 07/14/17 06:47 Potassium 4.5 mmol/L (3.5-5.1) 07/14/17 06:47 Chloride 109 mmol/L (98-107) H 07/14/17 06:47 Carbon Dioxide 20 mmol/L (22-30) L 07/14/17 06:47 Anion Gap 15 mmol/L 07/14/17 06:47 BUN 55 mg/dL (9-20) H 07/14/17 06:47 Creatinine 9.42 mg/dL (0.66-1.25) H* 07/14/17 06:47 Est GFR (MDRD) Af Amer 7 (>60 ml/min/1.73 sqM) 07/14/17 06:47 Est GFR (MDRD) Non-Af 6 (>60 ml/min/1.73 sqM) 07/14/17 06:47 Glucose 138 mg/dL (74-99) H 07/14/17 06:47 POC Glucose (mg/dL) 116 mg/dL (75-99) H 07/14/17 19:51 POC Glu Residential Child Care Counselor GAYATHRI Jerri Dinero 07/14/17 19:[address] Glu mg/dL 120 07/10/17 08:02 Hemoglobin A1c 5.8 % (4.0-6.0) 07/10/17 08:02 Plasma Lactic Acid Massimo 1.7 mmol/L (0.7-2.0) 07/07/17 22:09 Calcium 9.3 mg/dL (8.4-10.2) 07/14/17 06:47 Magnesium 2.0 mg/dL (1.6-2.3) 07/13/17 06:49 Iron 27 ug/dL (65-175) L 07/09/17 06:46 TIBC 226 ug/dL (228-460) L 07/09/17 06:46 Iron Saturation 11.95 (15.00-50.00) L 07/09/17 06:46 Total Bilirubin 0.5 mg/dL (0.2-1.3) 07/14/17 06:47 AST 27 U/L (17-59) 07/14/17 06:47 ALT 22 U/L (21-72) 07/14/17 06:47 Alkaline Phosphatase 101 U/L (38-126) 07/14/17 06:47 Total Creatine Kinase 93 U/L (55-170) 07/07/17 22:09 CK-MB (CK-2) 4.5 ng/mL (0.0-2.4) H* 07/07/17 22:09 CK-MB (CK-2) Rel Index 4.8 07/07/17 22:09 Troponin I <0.012 ng/mL (0.000-0.034) 07/07/17 22:09 C-Reactive Protein 17.2 mg/L (<10.0) H 07/10/17 08:02 Total Protein 7.5 g/dL (6.3-8.2) 07/14/17 06:47 Albumin 3.2 g/dL (3.5-5.0) L 07/14/17 06:47 Prealbumin 23.0 mg/dL (18.0-42.0) 07/10/17 08:02 Urine Color Yellow 07/08/17 00:55 Urine Appearance Cloudy (Clear) 07/08/17 00:55 Urine pH 8.5 (5.0-8.0) H 07/08/17 00:55 Ur Specific [place] 1.022 (1.001-1.035) 07/08/17 00:55 Urine Protein 4+ (Negative) H 07/08/17 00:55 Urine Glucose (UA) 3+ (Negative) H 07/08/17 00:55 Urine Ketones Negative (Negative) 07/08/17 00:55 Urine Blood Trace (Negative) H 07/08/17 00:55 Urine Nitrite Negative (Negative) 07/08/17 00:55 Urine Bilirubin Negative (Negative) 07/08/17 00:55 Urine Urobilinogen <2.0 mg/dL (<2.0) 07/08/17 00:55 Ur Leukocyte Esterase Negative (Negative) 07/08/17 00:55 Urine RBC 11 /hpf (0-5) H 07/08/17 00:55 Urine WBC 4 /hpf (0-5) 07/08/17 00:55 Ur Squamous Epith Cells 1 /hpf (0-4) 07/08/17 00:55 Urine Bacteria Rare /hpf (None) H 07/08/17 00:55 Hyaline Casts 11 /lpf (0-2) H 07/08/17 00:55 Urine Mucus Few /hpf (None) H 07/08/17 00:55 Random Vancomycin 29.0 ug/mL 07/14/17 06:47 Blood Type A Positive 07/09/17 09:01 Blood Type Recheck No 07/09/17 09:01 Antibody Screen NEGATIVE 07/09/17 09:01 Crossmatch See Detail 07/09/17 09:01 Spec Expiration Date 07/12/2017 - 2301 07/09/17 09:01 Microbiology 07/12/17 10:04 Blood Blood Culture - Preliminary No Growth after 48 hours 07/12/17 10:22 Blood Blood Culture - Preliminary No Growth after 48 hours 07/08/17 00:55 Urine,Voided Urine Culture - Final Assessment and Plan (1) Vomiting Narrative/Plan: 46-year-old male presents to Hospital feeling very poorly with weakness and ongoing nausea and emesis. Is not is a long-standing history diabetes mellitus with multiple complications that included chronic renal failure requiring hemodialysis as well as peripheral vascular disease. Isn't following wound healing Center for right lower extremity ulcerations. Continue Santyl to the open ulcerations moistened gauze and wrap them into place. Continue to offload the sites. Patient evidence of enterococcus and MRSA at the foot wound ulcer site. Antibiotic therapy was started with doxycycline. However appears to be intolerant to this with much worsening of his gastroparesis with nausea and emesis. consequently doxycycline was discontinued. Vancomycin has been started and is well tolerated. Attempt will be for outpatient vancomycin therapy at dialysis. he is following nephrology will have hemodialysis per their protocol. We will monitor. At this time since he is having ongoing nausea and emesis will add and erythromycin intravenous before his meals and bedtime to see this cannot help with his diabetic gastroparesis. Current Visit: Yes Status: Acute Code(s): R11.10 - VOMITING, UNSPECIFIED SNOMED Code(s): 723699391 (2) Chronic renal failure, stage 4 (severe) Current Visit: No Status: Acute Code(s): N18.4 - CHRONIC KIDNEY DISEASE, STAGE 4 (SEVERE) SNOMED Code(s): 50300168 (3) Diabetes mellitus type 2 with complications, uncontrolled Current Visit: Yes Status: Acute Code(s): E11.8 - TYPE 2 DIABETES MELLITUS WITH UNSPECIFIED COMPLICATIONS; E11.65 - TYPE 2 DIABETES MELLITUS WITH HYPERGLYCEMIA SNOMED Code(s): 516768102 (4) Diabetic ulcer of right foot associated with diabetes mellitus due to underlying condition, with fat layer exposed Current Visit: Yes Status: Acute Code(s): E08.621 - DIABETES MELLITUS DUE TO UNDERLYING CONDITION W FOOT ULCER; L97.512 - NON-PRS CHRONIC ULCER OTH PRT RIGHT FOOT W FAT LAYER EXPOSED SNOMED Code(s): 779850844
[2017-07-15] MEDS: METOCLOPRAMIDE 5 MG/ML 2 ML VIAL IVP SCH ×4 (00:34→17:44)
[2017-07-15] MEDS: VALPROATE SODIUM 250 MG in SODIUM CHLORIDE 0.9% 50 ML IVPB SCH ×4 (00:34→17:44)
[2017-07-15] MEDS: hydrALAZINE HCL 20 MG/ML 1 ML VIAL IV SCH ×6 (01:36→21:24)
[2017-07-15] MEDS: SODIUM CHLORIDE 0.9% 1,000 ML IV SCH (01:36)
[2017-07-15] MEDS: Acetaminophen-Codeine 300-30mg TAB PO PRN (01:51)
[2017-07-15] MEDS: KETOROLAC 30 MG/ML 1 ML VIAL IVP PRN ×4 (03:19→22:45)
[2017-07-15 07:08] LABS: Glucose,Whole Blood 112 mg/dL (75-99)
[2017-07-15] MEDS: ONDANSETRON 4 MG/2 ML VIAL IVP SCH ×2 (07:14→15:29)
[2017-07-15] MEDS: AMIODARONE 200 MG TAB PO SCH ×2 (07:21→21:15)
[2017-07-15] MEDS: CALCIUM ACETATE 667 MG CAP PO SCH ×3 (07:21→15:35)
[2017-07-15] MEDS: SEVELAMER 800 MG TAB PO SCH ×3 (07:21→15:35)
[2017-07-15] MEDS: FOLIC ACID-VIT B COMPLEX-VIT C 1 CAP PO SCH ×3 (07:22→21:15)
[2017-07-15] MEDS: COLLAGENASE 250 UNIT/GM OINTMENT 30 GM TUBE TOPICAL SCH (07:22)
[2017-07-15] MEDS: MUPIROCIN 2% OINT 22 GM TUBE TOPICAL SCH (07:23)
[2017-07-15] MEDS: THIAMINE 100 MG TAB PO SCH (07:23)
[2017-07-15] MEDS: INSULIN ASPART 100 UNIT/ML 1 ML 10 ML VIAL SQ SCH ×4 (07:23→21:24)
[2017-07-15] MEDS ORDERED: ERYTHROMYCIN IV 250 MG in SODIUM CHLORIDE 0.9% 250 ML IVPB SCH (07:30)
[2017-07-15 07:58] LABS: Anisocytosis Slight; Basophils # (A) 0.1 k/uL (0-0.2); Basophils % (A) 1 %; Eosinophils # (A) 0.1 k/uL (0-0.7); Eosinophils % (A) 1 %; HCT 32.8 % (39.0-53.0); HGB 10.1 gm/dL (13.0-17.5); Hypochromasia Slight; Lymphocytes % (A) 15 %; MCH 29.8 pg (25.0-35.0); MCHC 30.9 g/dL (31.0-37.0); MCV 96.6 fL (80.0-100.0); Macrocytosis Slight; Mean Platelet Volume 6.8; Monocytes # (A) 0.5 k/uL (0-1.0); Monocytes % (A) 8 %; Neutrophils % (A) 74 %; Platelet Count 214 k/uL (150-450); RBC 3.39 m/uL (4.30-5.90); RDW 19.4 % (11.5-15.5); WBC 6.7 k/uL (3.8-10.6)
[2017-07-15 08:26] LABS: Albumin 3.4 g/dL (3.5-5.0); Calcium 8.8 mg/dL (8.4-10.2); Total Bilirubin 0.5 mg/dL (0.2-1.3); Total Protein 7.6 g/dL (6.3-8.2)
[2017-07-15] MEDS: ERYTHROMYCIN IV 250 MG in SODIUM CHLORIDE 0.9% 250 ML IVPB SCH ×4 (08:36→21:25)
[2017-07-15] MEDS: PANTOPRAZOLE 40 MG/10 ML VIAL IVP SCH (08:36)
[2017-07-15] MEDS: LEVOTHYROXINE IVP 100 MCG/5 ML VIAL IV SCH (08:36)
[2017-07-15 08:55] LABS: Vancomycin,Random 22.8 ug/mL
[2017-07-15] MEDS: ENALAPRILAT 1.25 MG/ML 1 ML VIAL IVP SCH ×4 (09:28→21:48)
[2017-07-15] MEDS: cloNIDine 0.2 MG/24HR PATCH 1 PATCH PATCH TRANSDERM SCH ×2 (09:33→11:53)
[2017-07-15] MEDS: levETIRAcetam IV 750 MG in SODIUM CHLORIDE 0.9% 100 ML IVPB SCH (11:06)
[2017-07-15 11:12] LABS: Glucose,Whole Blood 117 mg/dL (75-99)
--- NOTE | 2017-07-15 11:37 | P.PN ---
Subjective Progress Note Date: 07/15/17 46-year-old male who presented to the emergency room on 07/07/2017 with a chief complaint of weakness. The patient had a recent hospitalization from 05/20/2017 until 06/01/2017 secondary to peritonitis. The patient was undergoing peritoneal dialysis at that time. His peers dialysis catheter was removed and he was temporarily transitioned to hemodialysis. At the time of discharge the patient was transferred to subacute rehab. The patient states he has been discharged from subacute rehab approximately one week and has been living at home. He states he has been attending hemodialysis Wednesdays and Fridays. He states he is also been seen Dr. Sy in the wound care center and saw him yesterday and he states his wound was debrided at that time. He says over the past week, he has felt increasingly more weak and fatigued. He states anytime he is trying to accomplish the task he becomes shaky and dizzy and is unable to complete it. The patient states he thinks it is secondary to his anemia. He states he has undergone 2 blood transfusions in the past 2 weeks during dialysis. The patient has a history of end-stage renal disease, coronary artery disease, diabetes mellitus with a recent hemoglobin A1c of 9.9%, deep vein thrombosis, gastroesophageal reflux disease, hypertension, hyperlipidemia, myocardial infarction, peripheral vascular disease with a left [id number] amputation and a right foot partial amputation. He has a history of MRSA in 2015 in his blood and left foot. In the emergency room a chest x-ray was completed which revealed stable mild cardiomegaly and mild vascular congestion. It was negative for pulmonary infiltrates. Laboratory studies completed revealed a sodium of 138. Potassium 3.7. BUN 17. Creatinine 4.7. WBC 7.5. Hemoglobin 8.4. Platelet count 214. Troponin negative 1. Lactic acid 1.7. 07/08/2017 The patient was seen and examined at the bedside on rounds with Dr. Aguilar. The patient states he continues to feel weak. He states he does not have much of an appetite. He denies nausea or vomiting at this time. He states he did eat a little bit of his clear liquid tray. He denies chest pain or pressure. He denies shortness of breath. 07/09/2017 Patient seen and examined at the bedside. Patient remains lethargic. Patient' s hemoglobin this morning is 7.0 down from 8.4 yesterday. The patient is to receive 1 unit of packed RBCs. He was started on Aranesp per nephrology. Reticulocyte count is 3.1%. Patient's BUN is 26 and creatinine 7.14. Nephrology has been consulted and the patient is scheduled for hemodialysis today. Physical therapy was consulted yesterday secondary to generalized weakness. Patient refused to work with physical therapy yesterday because he stated he could not bear weight on his right lower extremity. Patient has had a few episodes of hypoglycemia ranging from 41-57 and was treated with orange juice per nursing staff. His blood sugar this morning is 118. He remains on a consistent carbohydrate and heart healthy diet. His intake has been decreased secondary to lack of appetite 07/10/2017-Notes per Dr. Aguilar 07/11/2017-Notes per Dr. Aguilar 07/12/2017-Notes per Dr. Aguilar 07/13/2017 Patient seen and examined at the bedside. Patient remains sleepy but easily arousable. Patient is currently complaining of nausea and vomiting and continues to have episodes of emesis with bilious outpatient. He also states that sometimes he is just experiencing dry heaves. He states he is eating small amount of clear liquids. He states he is not having abdominal pain but states his abdomen is slightly sore from throwing up. His blood pressure remains elevated. He is unable to tolerate PO medications and was switched to Hydralazine IV per Dr. Aguilar. Patient was febrile last night at 100.9. This morning his temperature is 99.0. Urine culture from 07/08/2017 is negative at 18 hour shayne. Urine culture ordered on 07/12/2017 remains uncollected. Blood cultures from 07/12/2017 are currently pending. Nephrology is on consult. The patient is scheduled to undergo dialysis tomorrow. His last session was on Wednesday instead of Wednesday secondary to the holiday. Dr. Sy is following secondary to diabetic wound on right foot. Patient follows up outpatient in the wound center. The patient's doxycycline was discontinued and he was started on vancomycin per Dr. Sy. Also recommend continuing Santyl to ulcerations and then wrapping with gauze. 07/14/2017 Patient seen and examined at the bedside on rounds with Dr. Aguilar. The patient appears more awake this morning, but he states he continues to feel unwell and weak. He is undergoing hemodialysis. Nephrology is on consult. He states he has still been unable to tolerate liquids and was continuing to have episodes of emesis yesterday. His blood pressure remains elevated with a systolic blood pressure ranging from 170 to 190s. Repeat blood cultures from are negative at the 24 hour shayne. Urine culture remains uncollected. Dr. Sy is following secondary to diabetic wound on the right foot. He remains on vancomycin. 07/15/2017 Patient appears more awake today. His affects remains flat. He states that his nausea and vomiting is improved slightly but he continues to have episodes of bilious emesis and dry heaves. He states he had a few sips of leonard elen this morning and so far has kept it down. Patient is currently receiving Reglan, Compazine, Protonix, and Zofran. Scopolamine patches were added yesterday in attempt to decrease nausea. Additionally, erythromycin was added per infectious disease before meals. He underwent hemodialysis yesterday. He states no fluid was removed and he only had filtration performed. Patient is scheduled for AV fistula tomorrow with Dr. Ndiaye. His blood pressure remains elevated with a SBP ranging in the 170-190s. He is currently receiving hydralazine 20 mg IV every 4 hours. He is unable to tolerate PO anti- hypertensive medications at this time. Spoke with Dr. Ovalles regarding patients case and recommended GI consult for possible botox for gastroparesis. During patients previous admission in May 2017, gastroenterology was consulted and recommended EGD at that time but patient had refused. Patient states he is open to have EGD performed at this time if still recommended by GI. Will place consult to GI service. Patient has been refusing dressing changes to right foot. Spoke with patient regarding importance of routine dressing changes. Patient states he has agreeable to allow nursing to perform wound care and dressing changes. Patient states he has not been working with physical therapy because he has either been having dialysis or has been too nausea to participate. He states he is willing to participate with PT today. Patient's original discharge plan included home with home care. Discussed this in length with patient who feels he would benefit from subacute rehab at the time of discharge. Spoke with case management, Mariya, regarding this. Will also place consult to social work. Spoke with Joao physical therapist and asked if they could evaluate patient for subacute rehab. Objective - Vital Signs Vital signs: Vital Signs Temp 99.3 F 07/15/17 07:18 Pulse 97 07/15/17 07:18 Resp 17 07/15/17 08:00 BP 198/106 07/15/17 09:20 Pulse Ox 94 L 07/15/17 07:18 Intake & Output 07/14/17 07/15/17 07/15/17 18:59 06:59 18:59 Intake Total 100 370 Balance 100 370 Intake: IV 100 220 Sodium Chloride 0.9% 1, 220 000 ml @ 20 mls/hr IV . Q24H TRAE Rx#:[id number] Valproate Sodium 250 mg 100 In Sodium Chloride 0.9% 50 ml @ 50 mls/hr IVPB Q8HR TRAE Rx#:[id number] Intake, IV Titration 150 Amount Valproate Sodium 250 mg 50 In Sodium Chloride 0.9% 50 ml @ 50 mls/hr IVPB Q8HR TRAE Rx#:[id number] levETIRAcetam IV 750 mg 100 In Sodium Chloride 0.9% 100 ml @ 400 mls/hr IVPB Q12HR TRAE Rx#:[id number] Other: Voiding Method Urinal Urinal Urinal - Exam GENERAL: This is a 46-year-old male in no apparent distress at the time of examination. HEENT: Head is atraumatic, normocephalic. Pupils are equal, round, and reactive to light. Sclerae anicteric. Conjunctivae are clear. Mucus membranes of the mouth are moist. Neck is supple. RESPIRATORY: Diminished with scattered rhonchi. No use of accessory muscles. Patient maintaining oxygen saturation greater than 92%. No chest wall tenderness is noted on palpation or with deep breathing. CARDIOVASCULAR: Dialysis catheter noted to right chest. Regular rate and rhythm. S1 and S2 noted. No systolic or diastolic murmur auscultated. No JVD noted. No S3 or S4 noted. GASTROINTESTINAL: No distention noted. Abdomen soft and round. Bowel sounds auscultated X 4 quadrants. Pain and tenderness noted upon palpation near near epigastric and umbilicus agent. INTEGUMENTARY: Chronic wound to right foot. Currently wrapped with gauze. No cyanosis. No jaundice. No rashes noted. EXTREMITIES: Left below the knee amputation. Right partial foot amputation. 2 + peripheral pulses. No evidence of peripheral edema. No calf tenderness noted. NEUROLOGIC: Cranial nerves II-XII intact. PSYCHIATRIC: Oriented 3. Flat affect. - Labs CBC & Chem 7: 07/15/17 07:19 07/15/17 07:19 Labs: Abnormal Lab Results - Last 24 Hours (Table) 07/14/17 07/14/17 07/14/17 Range/Units 11:20 16:43 19:51 RBC (4.30-5.90) m/uL Hgb (13.0-17.5) gm/dL Hct (39.0-53.0) % MCHC (31.0-37.0) g/dL RDW (11.5-15.5) % BUN (9-20) mg/dL Creatinine (0.66-1.25) mg/dL Glucose (74-99) mg/dL POC Glucose (mg/dL) 109 H 109 H 116 H (75-99) mg/dL Albumin (3.5-5.0) g/dL 07/15/17 07/15/17 07/15/17 Range/Units 07:00 07:19 07:19 RBC 3.39 L (4.30-5.90) m/uL Hgb 10.1 L (13.0-17.5) gm/dL Hct 32.8 L (39.0-53.0) % MCHC 30.9 L (31.0-37.0) g/dL RDW 19.4 H (11.5-15.5) % BUN 37 H (9-20) mg/dL Creatinine 6.35 H* (0.66-1.25) mg/dL Glucose 127 H (74-99) mg/dL POC Glucose (mg/dL) 112 H (75-99) mg/dL Albumin 3.4 L (3.5-5.0) g/dL Microbiology - Last 24 Hours (Table) 07/12/17 10:04 Blood Culture - Preliminary Blood No Growth after 48 hours 07/12/17 10:22 Blood Culture - Preliminary Blood No Growth after 48 hours Assessment and Plan Plan: ASSESSMENT: Anemia of chronic disease secondary to chronic kidney disease, requiring 2 blood transfusions outpatient (Jun 2017), s/p 1 unit RBC transfusion on 2016, maintained on Aranesp Persistent nausea and vomiting, present on admission, secondary to diabetic gastroparesis Generalized weakness and fatigue, possibly secondary to above and multiple co- morbidities End-stage renal disease, on hemodialysis, patient scheduled for AV fistula 2017 Essential hypertension, currently uncontrolled Recent hospitalization for peritonitis with infected peritoneal dialysis catheter Diabetes mellitus, type II, previous hemoglobin A1c 9.9%, current hemoglobin A1c 6.3% Diabetic ulcer to right plantar foot and right lateral leg, status post surgical debridement on 07/01/2017 Moderate calorie protein malnutrition secondary to decreased oral intake Coronary artery disease with previous myocardial infarction Peripheral vascular disease with history of left BKA and right partial foot amputation Metabolic encephalopathy, improving History of MRSA infection in left lower extremity History of seizures PLAN: -Nephrology on consult. Appreciate recommendations and input -Patients dialysis schedule is M, W, F -Patient scheduled for AV fistula tomorrow. Dr Ndiaye on consult -Patient is cleared for surgery tomorrow per Dr. Aguilar -NPO after midnight -Consult GI. Await further recommendations -Dr. Sy on consult secondary to chronic wound of right foot -Continue antibiotics per ID -Continue Santyl to plantar foot and right lateral leg wound -Continue hydralazine to 20mg IV every [address] Aguilar -Add vasotec 1.25mg IV Q4 hours. Hold for SBP less than 120. -Add catapres patch 0.2mg -Oral intake as tolerated. Advance diet as tolerated -Continue Zofran, Compazine, Reglan, Protonix, scopolamine patches, and erythromycin -Oral meds as tolerated -Capillary blood glucose Accu-Cheks AC/HS -Continue NovoLog sliding scale insulin coverage AC/HS -Continue to hold Lantus -PT/OT -Monitor labs -GI prophylaxis: Protonix 40 mg IV daily -DVT prophylaxis: Sequential compression devices -Monitor vital signs and address as appropriate -Discharge planning: Original discharge plan included home with home care. At this time patient is requesting subacute rehab at the time of discharge[facility]. -Spoke with physical therapist who will evaluate patient today for subacute rehab -Case management updated on discharge planning. Consults placed to social work -Further recommendations pending patient's course Nurse practitioner note has been reviewed by physician. Signing provider agrees with the documented findings, assessment, and plan of care.
--- NOTE | 2017-07-15 14:17 | P.PN ---
Subjective Patient is seen in follow-up for end-stage renal disease. He is maintained on hemodialysis on a Wednesday schedule via permacath. Patient's currently being treated for gastroparesis. He continues to have nausea and vomiting. Denies chest pain or shortness of breath. Vital signs are stable. General: The patient appeared well nourished and normally developed. HEENT: Head exam is unremarkable. Neck is without jugular venous distension. LUNGS: Lungs are clear to auscultation and percussion. Breath sounds decreased. HEART: Rate and Rhythm are regular. First and second heart sounds normal. No murmurs, rubs or gallops. ABDOMEN: Abdominal exam reveals normal bowel sounds. Non-tender and non- distended. No evidence of peritonitis. EXTREMITITES: No clubbing, cyanosis, or edema. Left below the knee habitation noted. Objective - Vital Signs Vital signs: Vital Signs Temp 99.3 F 07/15/17 07:18 Pulse 91 07/15/17 11:40 Resp 14 07/15/17 11:40 BP 202/105 07/15/17 11:40 Pulse Ox 96 07/15/17 11:40 Intake & Output 07/14/17 07/15/17 07/15/17 18:59 06:59 18:59 Intake Total 100 370 Balance 100 370 Intake: IV 100 220 Sodium Chloride 0.9% 1, 220 000 ml @ 20 mls/hr IV . Q24H TRAE Rx#:[id number] Valproate Sodium 250 mg 100 In Sodium Chloride 0.9% 50 ml @ 50 mls/hr IVPB Q8HR TRAE Rx#:[id number] Intake, IV Titration 150 Amount Valproate Sodium 250 mg 50 In Sodium Chloride 0.9% 50 ml @ 50 mls/hr IVPB Q8HR TRAE Rx#:[id number] levETIRAcetam IV 750 mg 100 In Sodium Chloride 0.9% 100 ml @ 400 mls/hr IVPB Q12HR TRAE Rx#:[id number] Other: Voiding Method Urinal Urinal Urinal - Labs CBC & Chem 7: 07/15/17 07:19 07/15/17 07:19 Labs: Abnormal Lab Results - Last 24 Hours (Table) 07/14/17 07/14/17 07/15/17 Range/Units 16:43 19:51 07:00 RBC (4.30-5.90) m/uL Hgb (13.0-17.5) gm/dL Hct (39.0-53.0) % MCHC (31.0-37.0) g/dL RDW (11.5-15.5) % BUN (9-20) mg/dL Creatinine (0.66-1.25) mg/dL Glucose (74-99) mg/dL POC Glucose (mg/dL) 109 H 116 H 112 H (75-99) mg/dL Albumin (3.5-5.0) g/dL 07/15/17 07/15/17 07/15/17 Range/Units 07:19 07:19 10:57 RBC 3.39 L (4.30-5.90) m/uL Hgb 10.1 L (13.0-17.5) gm/dL Hct 32.8 L (39.0-53.0) % MCHC 30.9 L (31.0-37.0) g/dL RDW 19.4 H (11.5-15.5) % BUN 37 H (9-20) mg/dL Creatinine 6.35 H* (0.66-1.25) mg/dL Glucose 127 H (74-99) mg/dL POC Glucose (mg/dL) 117 H (75-99) mg/dL Albumin 3.4 L (3.5-5.0) g/dL Microbiology - Last 24 Hours (Table) 07/12/17 10:04 Blood Culture - Preliminary Blood No Growth after 72 hours 07/12/17 10:22 Blood Culture - Preliminary Blood No Growth after 72 hours Assessment and Plan Plan: Assessment: #1. End-stage renal disease maintained on hemodialysis on a Wednesday schedule for a permacath. #2. Nausea and vomiting related to diabetic gastroparesis. #3. Anemia of chronic kidney disease maintained on Aranesp. #4. Chronic kidney disease mineral bone disease maintained on Renvela and PhosLo. #5. Hypertension with chronic kidney disease. Uncontrolled due to pain and vomiting. Plan: Hemodialysis tomorrow with goal 1 L ultrafiltration. Check phosphorus level. GI following. Currently maintained on Protonix, Reglan, Compazine, and erythromycin.
[2017-07-15] MEDS: DARBEPOETIN ALFA 40 MCG/0.4 ML SYRINGE SQ SCH (16:03)
[2017-07-15 17:09] LABS: Glucose,Whole Blood 183 mg/dL (75-99)
[2017-07-15] MEDS: TAMSULOSIN 0.4 MG CAP.ER.24H PO SCH (17:50)
--- NOTE | 2017-07-15 17:54 | CONS ---
CONSULTATION This is a 46-year-old gentleman known to me from the past. The patient has history of chronic renal failure and patient is on hemodialysis through right IJ catheter. Patient has been admitted with gastroparesis and nausea and vomiting. The patient was seen in the office and we did venous mapping. Patient was scheduled to have a left upper arm [place] F graft placed tomorrow. Today I have talked to him. He does not want to go for a graft at this point, patient will talk to the nephrology. He wants to go for peritoneal dialysis. MEDICAL HISTORY: History of end-stage renal disease, history of hypertension with chronic kidney disease and uncontrolled pain and vomiting. EXAMINATION: Patient was seen in his room. The patient has a dialysis catheter. Right and jugular approach. ABDOMEN: Soft. The brachial radial and femoral pulses are present. We will hold the dialysis catheter. Fistula placement tomorrow. The patient is going to talk to the nephrology for possible PD. Patient does not want to go have a fistula at this point. MMODL / IJN: [id number] /
[2017-07-15 19:57] LABS: Glucose,Whole Blood 181 mg/dL (75-99)
[2017-07-15] MEDS: ATORVASTATIN 80 MG TAB PO SCH (21:14)
[2017-07-16] MEDS: levETIRAcetam IV 750 MG in SODIUM CHLORIDE 0.9% 100 ML IVPB SCH ×3 (00:02→21:45)
[2017-07-16] MEDS: ONDANSETRON 4 MG/2 ML VIAL IVP SCH ×4 (00:03→23:45)
[2017-07-16] MEDS: METOCLOPRAMIDE 5 MG/ML 2 ML VIAL IVP SCH ×5 (00:03→23:46)
[2017-07-16] MEDS: ENALAPRILAT 1.25 MG/ML 1 ML VIAL IVP SCH ×6 (00:41→23:45)
[2017-07-16] MEDS: SODIUM CHLORIDE 0.9% 1,000 ML IV SCH (00:42)
[2017-07-16] MEDS: VALPROATE SODIUM 250 MG in SODIUM CHLORIDE 0.9% 50 ML IVPB SCH ×4 (00:42→23:44)
[2017-07-16] MEDS: hydrALAZINE HCL 20 MG/ML 1 ML VIAL IV SCH ×7 (02:07→23:45)
[2017-07-16] MEDS: KETOROLAC 30 MG/ML 1 ML VIAL IVP PRN ×2 (04:08→20:53)
[2017-07-16 07:21] LABS: Anisocytosis Slight; Basophils % (A) 0 %; Eosinophils # (A) 0.2 k/uL (0-0.7); Eosinophils % (A) 3 %; HCT 28.4 % (39.0-53.0); HGB 9.3 gm/dL (13.0-17.5); Lymphocytes # (A) 1.3 k/uL (1.0-4.8); Lymphocytes % (A) 20 %; MCH 30.2 pg (25.0-35.0); MCHC 32.7 g/dL (31.0-37.0); MCV 92.5 fL (80.0-100.0); Mean Platelet Volume 7.2; Monocytes # (A) 0.8 k/uL (0-1.0); Monocytes % (A) 13 %; Neutrophils % (A) 62 %; Platelet Count 215 k/uL (150-450); RBC 3.07 m/uL (4.30-5.90); RDW 17.3 % (11.5-15.5); WBC 6.5 k/uL (3.8-10.6)
[2017-07-16 07:49] LABS: Albumin 2.8 g/dL (3.5-5.0); Calcium 8.5 mg/dL (8.4-10.2); Potassium 3.7 mmol/L (3.5-5.1); Total Bilirubin 0.4 mg/dL (0.2-1.3); Total Protein 6.6 g/dL (6.3-8.2)
[2017-07-16 07:58] LABS: Glucose,Whole Blood 122 mg/dL (75-99)
[2017-07-16 08:03] VITALS: RESP 16
[2017-07-16] MEDS: INSULIN ASPART 100 UNIT/ML 1 ML 10 ML VIAL SQ SCH ×4 (08:04→21:45)
[2017-07-16] MEDS: SEVELAMER 800 MG TAB PO SCH ×3 (08:18→18:47)
[2017-07-16] MEDS: CALCIUM ACETATE 667 MG CAP PO SCH ×3 (08:18→18:41)
[2017-07-16] MEDS: FOLIC ACID-VIT B COMPLEX-VIT C 1 CAP PO SCH ×3 (08:18→21:46)
[2017-07-16] MEDS: PANTOPRAZOLE 40 MG/10 ML VIAL IVP SCH (08:19)
[2017-07-16] MEDS: THIAMINE 100 MG TAB PO SCH (08:19)
[2017-07-16] MEDS: AMIODARONE 200 MG TAB PO SCH ×2 (08:19→21:45)
[2017-07-16] MEDS: MUPIROCIN 2% OINT 22 GM TUBE TOPICAL SCH (08:23)
[2017-07-16] MEDS: COLLAGENASE 250 UNIT/GM OINTMENT 30 GM TUBE TOPICAL SCH (08:23)
--- NOTE | 2017-07-16 08:47 | P.PN ---
Subjective Progress Note Date: 07/16/17 46-year-old male who presented to the emergency room on 07/07/2017 with a chief complaint of weakness. The patient had a recent hospitalization from 05/20/2017 until 06/01/2017 secondary to peritonitis. The patient was undergoing peritoneal dialysis at that time. His peers dialysis catheter was removed and he was temporarily transitioned to hemodialysis. At the time of discharge the patient was transferred to subacute rehab. The patient states he has been discharged from subacute rehab approximately one week and has been living at home. He states he has been attending hemodialysis Wednesdays and Fridays. He states he is also been seen Dr. Sy in the wound care center and saw him yesterday and he states his wound was debrided at that time. He says over the past week, he has felt increasingly more weak and fatigued. He states anytime he is trying to accomplish the task he becomes shaky and dizzy and is unable to complete it. The patient states he thinks it is secondary to his anemia. He states he has undergone 2 blood transfusions in the past 2 weeks during dialysis. The patient has a history of end-stage renal disease, coronary artery disease, diabetes mellitus with a recent hemoglobin A1c of 9.9%, deep vein thrombosis, gastroesophageal reflux disease, hypertension, hyperlipidemia, myocardial infarction, peripheral vascular disease with a left [id number] amputation and a right foot partial amputation. He has a history of MRSA in 2015 in his blood and left foot. In the emergency room a chest x-ray was completed which revealed stable mild cardiomegaly and mild vascular congestion. It was negative for pulmonary infiltrates. Laboratory studies completed revealed a sodium of 138. Potassium 3.7. BUN 17. Creatinine 4.7. WBC 7.5. Hemoglobin 8.4. Platelet count 214. Troponin negative 1. Lactic acid 1.7. 07/08/2017 The patient was seen and examined at the bedside on rounds with Dr. Aguilar. The patient states he continues to feel weak. He states he does not have much of an appetite. He denies nausea or vomiting at this time. He states he did eat a little bit of his clear liquid tray. He denies chest pain or pressure. He denies shortness of breath. 07/09/2017 Patient seen and examined at the bedside. Patient remains lethargic. Patient' s hemoglobin this morning is 7.0 down from 8.4 yesterday. The patient is to receive 1 unit of packed RBCs. He was started on Aranesp per nephrology. Reticulocyte count is 3.1%. Patient's BUN is 26 and creatinine 7.14. Nephrology has been consulted and the patient is scheduled for hemodialysis today. Physical therapy was consulted yesterday secondary to generalized weakness. Patient refused to work with physical therapy yesterday because he stated he could not bear weight on his right lower extremity. Patient has had a few episodes of hypoglycemia ranging from 41-57 and was treated with orange juice per nursing staff. His blood sugar this morning is 118. He remains on a consistent carbohydrate and heart healthy diet. His intake has been decreased secondary to lack of appetite 07/10/2017-Notes per Dr. Aguilar 07/11/2017-Notes per Dr. Aguilar 07/12/2017-Notes per Dr. Aguilar 07/13/2017 Patient seen and examined at the bedside. Patient remains sleepy but easily arousable. Patient is currently complaining of nausea and vomiting and continues to have episodes of emesis with bilious outpatient. He also states that sometimes he is just experiencing dry heaves. He states he is eating small amount of clear liquids. He states he is not having abdominal pain but states his abdomen is slightly sore from throwing up. His blood pressure remains elevated. He is unable to tolerate PO medications and was switched to Hydralazine IV per Dr. Aguilar. Patient was febrile last night at 100.9. This morning his temperature is 99.0. Urine culture from 07/08/2017 is negative at 18 hour shayne. Urine culture ordered on 07/12/2017 remains uncollected. Blood cultures from 07/12/2017 are currently pending. Nephrology is on consult. The patient is scheduled to undergo dialysis tomorrow. His last session was on Wednesday instead of Wednesday secondary to the holiday. Dr. Sy is following secondary to diabetic wound on right foot. Patient follows up outpatient in the wound center. The patient's doxycycline was discontinued and he was started on vancomycin per Dr. Sy. Also recommend continuing Santyl to ulcerations and then wrapping with gauze. 07/14/2017 Patient seen and examined at the bedside on rounds with Dr. Aguilar. The patient appears more awake this morning, but he states he continues to feel unwell and weak. He is undergoing hemodialysis. Nephrology is on consult. He states he has still been unable to tolerate liquids and was continuing to have episodes of emesis yesterday. His blood pressure remains elevated with a systolic blood pressure ranging from 170 to 190s. Repeat blood cultures from are negative at the 24 hour shayne. Urine culture remains uncollected. Dr. Sy is following secondary to diabetic wound on the right foot. He remains on vancomycin. 07/15/2017 Patient appears more awake today. His affects remains flat. He states that his nausea and vomiting is improved slightly but he continues to have episodes of bilious emesis and dry heaves. He states he had a few sips of leonard elen this morning and so far has kept it down. Patient is currently receiving Reglan, Compazine, Protonix, and Zofran. Scopolamine patches were added yesterday in attempt to decrease nausea. Additionally, erythromycin was added per infectious disease before meals. He underwent hemodialysis yesterday. He states no fluid was removed and he only had filtration performed. Patient is scheduled for AV fistula tomorrow with Dr. Ndiaye. His blood pressure remains elevated with a SBP ranging in the 170-190s. He is currently receiving hydralazine 20 mg IV every 4 hours. He is unable to tolerate PO anti- hypertensive medications at this time. Spoke with Dr. Ovalles regarding patients case and recommended GI consult for possible botox for gastroparesis. During patients previous admission in May 2017, gastroenterology was consulted and recommended EGD at that time but patient had refused. Patient states he is open to have EGD performed at this time if still recommended by GI. Will place consult to GI service. Patient has been refusing dressing changes to right foot. Spoke with patient regarding importance of routine dressing changes. Patient states he has agreeable to allow nursing to perform wound care and dressing changes. Patient states he has not been working with physical therapy because he has either been having dialysis or has been too nausea to participate. He states he is willing to participate with PT today. Patient's original discharge plan included home with home care. Discussed this in length with patient who feels he would benefit from subacute rehab at the time of discharge. Spoke with case management, Mariya, regarding this. Will also place consult to social work. Spoke with Joao physical therapist and asked if they could evaluate patient for subacute rehab. 07/16/2017 Patient seen and examined at the bedside. Patient states his nausea and vomiting is slowing improving. He was able to tolerate a Popsicle and leonard elen yesterday. Patient is currently receiving Reglan, Compazine, Protonix, scopolamine patches, erythromycin and Zofran. Gastroenterology was consulted yesterday for further evaluation. Currently awaiting recommendations. The patient was scheduled for AV Fistula today but he is refusing at this time. He states he wants to speak with nephro regarding possible transition back to peritoneal dialysis. The patient states he participated with physical therapy and occupational therapy yesterday. They are recommending subacute rehab at the time of discharge. Patient is requesting [facility]. The patient's blood pressure remains elevated with a systolic blood pressure ranging from 170s to 190s. Patient states he does not think he is able to tolerate PO meds at this time. He remains on hydralazine and Vasotec IV along with Catapres transdermal. He denies any further complaints or concerns at this time. Objective - Vital Signs Vital signs: Vital Signs Temp 98.4 F 07/16/17 08:00 Pulse 84 07/16/17 08:00 Resp 16 07/16/17 08:00 BP 184/104 07/16/17 08:00 Pulse Ox 98 07/16/17 08:00 Intake & Output 07/15/17 07/16/17 07/16/17 18:59 06:59 18:59 Intake Total 570 470 Balance 570 470 Intake: IV 210 370 Sodium Chloride 0.9% 1, 160 320 000 ml @ 20 mls/hr IV . Q24H [facility] Rx#:[id number] Valproate Sodium 250 mg 50 50 In Sodium Chloride 0.9% 50 ml @ 50 mls/hr IVPB Q8HR [facility] Rx#:[id number] Intake, IV Titration 100 Amount levETIRAcetam IV 750 mg 100 In Sodium Chloride 0.9% 100 ml @ 400 mls/hr IVPB Q12HR [facility] Rx#:[id number] Oral 360 Other: Voiding Method Urinal Urinal # Voids 3 - Exam GENERAL: This is a 46-year-old male in no apparent distress at the time of examination. HEENT: Head is atraumatic, normocephalic. Pupils are equal, round, and reactive to light. Sclerae anicteric. Conjunctivae are clear. Mucus membranes of the mouth are moist. Neck is supple. RESPIRATORY: Diminished with scattered rhonchi. No use of accessory muscles. Patient maintaining oxygen saturation greater than 92%. No chest wall tenderness is noted on palpation or with deep breathing. CARDIOVASCULAR: Dialysis catheter noted to right chest. Regular rate and rhythm. S1 and S2 noted. No systolic or diastolic murmur auscultated. No JVD noted. No S3 or S4 noted. GASTROINTESTINAL: No distention noted. Abdomen soft and round. Bowel sounds auscultated X 4 quadrants. Pain and tenderness noted upon palpation near near epigastric and umbilicus region. INTEGUMENTARY: Chronic wound to right foot. Currently wrapped with gauze. No cyanosis. No jaundice. No rashes noted. EXTREMITIES: Left below the knee amputation. Right partial foot amputation. 2 + peripheral pulses. No evidence of peripheral edema. No calf tenderness noted. NEUROLOGIC: Cranial nerves II-XII intact. PSYCHIATRIC: Oriented 3. Flat affect. - Labs CBC & Chem 7: 07/16/17 06:41 07/16/17 06:41 Labs: Abnormal Lab Results - Last 24 Hours (Table) 07/15/17 07/15/17 07/15/17 Range/Units 07:19 07:19 10:57 RBC (4.30-5.90) m/uL Hgb (13.0-17.5) gm/dL Hct (39.0-53.0) % RDW (11.5-15.5) % BUN 37 H (9-20) mg/dL Creatinine 6.35 H* (0.66-1.25) mg/dL Glucose 127 H (74-99) mg/dL POC Glucose (mg/dL) 117 H (75-99) mg/dL Phosphorus 4.8 H (2.5-4.5) mg/dL Albumin 3.4 L (3.5-5.0) g/dL 07/15/17 07/15/17 07/16/17 Range/Units 16:58 19:53 06:41 RBC 3.07 L (4.30-5.90) m/uL Hgb 9.3 L (13.0-17.5) gm/dL Hct 28.4 L (39.0-53.0) % RDW 17.3 H (11.5-15.5) % BUN (9-20) mg/dL Creatinine (0.66-1.25) mg/dL Glucose (74-99) mg/dL POC Glucose (mg/dL) 183 H 181 H (75-99) mg/dL Phosphorus (2.5-4.5) mg/dL Albumin (3.5-5.0) g/dL 07/16/17 07/16/17 Range/Units 06:41 07:44 RBC (4.30-5.90) m/uL Hgb (13.0-17.5) gm/dL Hct (39.0-53.0) % RDW (11.5-15.5) % BUN 51 H (9-20) mg/dL Creatinine 7.30 H* (0.66-1.25) mg/dL Glucose 121 H (74-99) mg/dL POC Glucose (mg/dL) 122 H (75-99) mg/dL Phosphorus (2.5-4.5) mg/dL Albumin 2.8 L (3.5-5.0) g/dL Microbiology - Last 24 Hours (Table) 07/12/17 10:04 Blood Culture - Preliminary Blood No Growth after 72 hours 07/12/17 10:22 Blood Culture - Preliminary Blood No Growth after 72 hours Assessment and Plan Plan: ASSESSMENT: Anemia of chronic disease secondary to chronic kidney disease, requiring 2 blood transfusions outpatient (Jun 2017), s/p 1 unit RBC transfusion on 2016, maintained on Aranesp Persistent nausea and vomiting, present on admission, secondary to diabetic gastroparesis Generalized weakness and fatigue, possibly secondary to above and multiple co- morbidities End-stage renal disease, on hemodialysis Essential hypertension, currently uncontrolled Recent hospitalization for peritonitis with infected peritoneal dialysis catheter Diabetes mellitus, type II, previous hemoglobin A1c 9.9%, current hemoglobin A1c 6.3% Diabetic ulcer to right plantar foot and right lateral leg, status post surgical debridement on 07/01/2017 Moderate calorie protein malnutrition secondary to decreased oral intake Coronary artery disease with previous myocardial infarction Peripheral vascular disease with history of left BKA and right partial foot amputation Metabolic encephalopathy, improving History of MRSA infection in left lower extremity History of seizures PLAN: -Nephrology on consult. Appreciate recommendations and input -Patients dialysis schedule is M, W, -Dr Ndiaye on consult. Patient currently refusing AV Fistula -GI consulted yesterday. Awaiting further recommendations -Dr. Sy on consult secondary to chronic wound of right foot -Continue antibiotics per ID -At time of discharge, patient will require Vanco infusions at dialysis per Dr. Sy -Continue Santyl to plantar foot and right lateral leg wound -Continue hydralazine to 20mg IV every [address] Aguilar -Increase vasotec to 2.5mg IV Q6 hours. Hold for SBP less than 120. -Increase catapres patch to 0.3mg -Oral intake as tolerated. Advance diet as tolerated -Encourage clear Ensure as tolerated -Continue Zofran, Compazine, Reglan, Protonix, scopolamine patches, and erythromycin -Oral meds as tolerated -Capillary blood glucose Accu-Cheks AC/HS -Continue NovoLog sliding scale insulin coverage AC/HS -Continue to hold Lantus -PT/OT -Monitor labs -GI prophylaxis: Protonix 40 mg IV daily -DVT prophylaxis: Sequential compression devices -Monitor vital signs and address as appropriate -Discharge planning: Original discharge plan included home with home care. At this time patient is requesting subacute rehab at the time of discharge: [facility]. -Physical therapy evaluated patient and recommends subacute rehab -Further recommendations pending patient's course Nurse practitioner note has been reviewed by physician. Signing provider agrees with the documented findings, assessment, and plan of care.
[2017-07-16 08:56] LABS: Vancomycin,Random 19.5 ug/mL
[2017-07-16] MEDS ORDERED: cloNIDine 0.3 MG/24HR PATCH 1 PATCH PATCH TRANSDERM SCH (09:00)
[2017-07-16] MEDS: LEVOTHYROXINE IVP 100 MCG/5 ML VIAL IV SCH (09:43)
[2017-07-16] MEDS: ERYTHROMYCIN IV 250 MG in SODIUM CHLORIDE 0.9% 250 ML IVPB SCH ×4 (11:13→20:53)
[2017-07-16 12:09] LABS: Glucose,Whole Blood 129 mg/dL (75-99)
[2017-07-16] MEDS ORDERED: HEPARIN SODIUM,PORCINE 5,000 UNIT/ML 1 ML VIAL ONE (17:00)
[2017-07-16 17:20] LABS: Glucose,Whole Blood 91 mg/dL (75-99)
[2017-07-16] MEDS: TAMSULOSIN 0.4 MG CAP.ER.24H PO SCH (18:47)
[2017-07-16] MEDS ORDERED: VANCOMYCIN 1,000 MG in SODIUM CHLORIDE 0.9% 250 ML IVPB ONE (20:00)
--- NOTE | 2017-07-16 20:25 | PN ---
PROGRESS NOTE The patient is seen for followup for end-stage disease. He was admitted with gastroparesis. Today states he is feeling better. Gastroenterology consult. I have discussed possible Botox with the patient. EXAMINATION: Blood pressure is 157/95, heart rate 76 per minute. Patient is afebrile. Examination of the heart S1, S2. Examination of the lungs bilateral breath sounds are heard. Examination lower extremity shows no evidence of edema. The patient has left BKA and transmetatarsal amputation. 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 LAB: Show sodium 138, potassium 3.7, chloride 104, BUN 51, serum creatinine 7.3, hemoglobin 9.3. ASSESSMENT: 1. End-stage renal disease. The patient will be dialyzed today. 2. Diabetic gastroparesis. Awaiting input from Gastroenterology. 3. Uncontrolled hypertension currently improved. 4. Peripheral vascular disease. Wounds on the right leg being followed by Dr. Sy. The patient has history of left below knee amputation. PLAN: Hemodialysis today. No significant ultrafiltration. MMODL / IJN: [id number] /
[2017-07-16 21:19] LABS: Glucose,Whole Blood 137 mg/dL (75-99)
[2017-07-16] MEDS: ATORVASTATIN 80 MG TAB PO SCH (21:45)
[2017-07-17] MEDS: SODIUM CHLORIDE 0.9% 1,000 ML IV SCH (00:53)
[2017-07-17] MEDS: hydrALAZINE HCL 20 MG/ML 1 ML VIAL IV SCH ×2 (03:03→07:06)
[2017-07-17] MEDS: KETOROLAC 30 MG/ML 1 ML VIAL IVP PRN (03:06)
[2017-07-17] MEDS: ENALAPRILAT 1.25 MG/ML 1 ML VIAL IVP SCH (05:57)
[2017-07-17] MEDS: METOCLOPRAMIDE 5 MG/ML 2 ML VIAL IVP SCH (05:57)
[2017-07-17] MEDS: VALPROATE SODIUM 250 MG in SODIUM CHLORIDE 0.9% 50 ML IVPB SCH (07:35)
[2017-07-17 07:40] VITALS: BP 182/96; PULSE 86; TEMP 99.2
[2017-07-17 07:40] LABS: Glucose,Whole Blood 145 mg/dL (75-99)
[2017-07-17] MEDS: CALCIUM ACETATE 667 MG CAP PO SCH (07:43)
[2017-07-17] MEDS: SEVELAMER 800 MG TAB PO SCH (07:43)
[2017-07-17] MEDS: INSULIN ASPART 100 UNIT/ML 1 ML 10 ML VIAL SQ SCH (07:45)
[2017-07-17] MEDS: ONDANSETRON 4 MG/2 ML VIAL IVP SCH (07:49)
--- NOTE | 2017-07-17 08:55 | P.PN ---
Subjective Patient is seen in follow-up for end-stage renal disease. He is maintained on hemodialysis on a Wednesday schedule via permacath. Patient's currently being treated for gastroparesis. His symptoms have improved. He tolerated dinner last night. No episodes of emesis this morning. He is eager to go home. Vital signs are stable. General: The patient appeared well nourished and normally developed. HEENT: Head exam is unremarkable. Neck is without jugular venous distension. LUNGS: Lungs are clear to auscultation and percussion. Breath sounds decreased. HEART: Rate and Rhythm are regular. First and second heart sounds normal. No murmurs, rubs or gallops. ABDOMEN: Abdominal exam reveals normal bowel sounds. Non-tender and non- distended. No evidence of peritonitis. EXTREMITITES: No clubbing, cyanosis, or edema. Left below the knee amputation noted. Objective - Vital Signs Vital signs: Vital Signs Temp 99.2 F 07/17/17 07:40 Pulse 86 07/17/17 07:40 Resp 16 07/17/17 07:40 BP 182/96 07/17/17 07:40 Pulse Ox 96 07/17/17 07:40 Intake & Output 07/16/17 07/17/17 07/17/17 18:59 06:59 18:59 Intake Total 160 320 Balance 160 320 Weight 86.183 kg Intake: IV 160 320 Sodium Chloride 0.9% 1, 160 320 000 ml @ 20 mls/hr IV . Q24H COUNT INCLUDES THE [facility] Rx#:[id number] Other: Voiding Method Urinal Urinal # Voids 3 - Labs CBC & Chem 7: 07/16/17 06:41 07/16/17 06:41 Labs: Abnormal Lab Results - Last 24 Hours (Table) 07/16/17 07/16/17 07/17/17 Range/Units 12:02 21:17 06:54 POC Glucose (mg/dL) 129 H 137 H 145 H (75-99) mg/dL Microbiology - Last 24 Hours (Table) 07/12/17 10:04 Blood Culture - Preliminary Blood No Growth after 96 hours 07/12/17 10:22 Blood Culture - Preliminary Blood No Growth after 96 hours Assessment and Plan Plan: Assessment: #1. End-stage renal disease maintained on hemodialysis on a Wednesday schedule for a permacath. #2. Nausea and vomiting related to diabetic gastroparesis. Improved. #3. Anemia of chronic kidney disease maintained on Aranesp. #4. Chronic kidney disease mineral bone disease maintained on Renvela and PhosLo. #5. Hypertension with chronic kidney disease. Uncontrolled due to pain and vomiting. Plan: Hemodialysis Wednesday with goal 1 L ultrafiltration. Expect improvement in blood pressure once oral antihypertensives resumed. Maintain PRN medications for now. GI following. Currently maintained on Protonix, Reglan, Compazine, and erythromycin.
[2017-07-17 09:06] LABS: Calcium 8.2 mg/dL (8.4-10.2); Potassium 3.5 mmol/L (3.5-5.1); Total Bilirubin 0.3 mg/dL (0.2-1.3); Total Protein 6.9 g/dL (6.3-8.2)
[2017-07-17 09:10] LABS: Anisocytosis Slight; Basophils % (A) 1 %; Eosinophils # (A) 0.3 k/uL (0-0.7); Eosinophils % (A) 5 %; HCT 31.3 % (39.0-53.0); HGB 9.7 gm/dL (13.0-17.5); Hypochromasia Slight; Lymphocytes # (A) 0.9 k/uL (1.0-4.8); Lymphocytes % (A) 16 %; MCH 29.8 pg (25.0-35.0); MCHC 30.8 g/dL (31.0-37.0); MCV 96.8 fL (80.0-100.0); Macrocytosis Slight; Mean Platelet Volume 7.2; Monocytes # (A) 0.7 k/uL (0-1.0); Monocytes % (A) 13 %; Neutrophils # (A) 3.5 k/uL (1.3-7.7); Neutrophils % (A) 62 %; Platelet Count 199 k/uL (150-450); RBC 3.24 m/uL (4.30-5.90); RDW 18.7 % (11.5-15.5); WBC 5.6 k/uL (3.8-10.6)
--- NOTE | 2017-09-28 14:09 | P.DS ---
Providers Date of admission: 07/11/17 08:01 Expected date of discharge: 07/27/17 Attending physician: Kong Hough Consults: 07/15/17 08:45 Consult Physician Routine Consulting Provider: Lucinda Dodson Consult Reason/Comments: gastroparesis, N/V, eval for botox or additional treatment options Do you want consulting provider notified?: Yes 07/15/17 10:26 Consult Physician Routine Consulting Provider: Nico Ndiaye Consult Reason/Comments: AV Fistula placement Do you want consulting provider notified?: Yes 07/08/17 11:05 Consult Physician Routine Consulting Provider: Yung Mann Consult Reason/Comments: CKD on HD Do you want consulting provider notified?: Yes 07/08/17 14:51 Consult Physician Routine Consulting Provider: Jacinta Piedra Consult Reason/Comments: diabetic wound to right foot, debridement last week at wound center Do you want consulting provider notified?: Yes Primary care physician: [facility] Course: 46-year-old male who presented to the emergency room on 07/07/2017 with a chief complaint of weakness. The patient had a recent hospitalization from 05/20/2017 until 06/01/2017 secondary to peritonitis. The patient was undergoing peritoneal dialysis at that time. His peers dialysis catheter was removed and he was temporarily transitioned to hemodialysis. At the time of discharge the patient was transferred to subacute rehab. The patient states he has been discharged from subacute rehab approximately one week and has been living at home. He states he has been attending hemodialysis Wednesdays and Fridays. He states he is also been seen Dr. Sy in the wound care center and saw him yesterday and he states his wound was debrided at that time. He says over the past week, he has felt increasingly more weak and fatigued. He states anytime he is trying to accomplish the task he becomes shaky and dizzy and is unable to complete it. The patient states he thinks it is secondary to his anemia. He states he has undergone 2 blood transfusions in the past 2 weeks during dialysis. The patient has a history of end-stage renal disease, coronary artery disease, diabetes mellitus with a recent hemoglobin A1c of 9.9%, deep vein thrombosis, gastroesophageal reflux disease, hypertension, hyperlipidemia, myocardial infarction, peripheral vascular disease with a left [id number] amputation and a right foot partial amputation. He has a history of MRSA in 2015 in his blood and left foot. In the emergency room a chest x-ray was completed which revealed stable mild cardiomegaly and mild vascular congestion. It was negative for pulmonary infiltrates. Laboratory studies completed revealed a sodium of 138. Potassium 3.7. BUN 17. Creatinine 4.7. WBC 7.5. Hemoglobin 8.4. Platelet count 214. Troponin negative 1. Lactic acid 1.7. 07/08/2017 The patient was seen and examined at the bedside on rounds with Dr. Aguilar. The patient states he continues to feel weak. He states he does not have much of an appetite. He denies nausea or vomiting at this time. He states he did eat a little bit of his clear liquid tray. He denies chest pain or pressure. He denies shortness of breath. 07/09/2017 Patient seen and examined at the bedside. Patient remains lethargic. Patient' s hemoglobin this morning is 7.0 down from 8.4 yesterday. The patient is to receive 1 unit of packed RBCs. He was started on Aranesp per nephrology. Reticulocyte count is 3.1%. Patient's BUN is 26 and creatinine 7.14. Nephrology has been consulted and the patient is scheduled for hemodialysis today. Physical therapy was consulted yesterday secondary to generalized weakness. Patient refused to work with physical therapy yesterday because he stated he could not bear weight on his right lower extremity. Patient has had a few episodes of hypoglycemia ranging from 41-57 and was treated with orange juice per nursing staff. His blood sugar this morning is 118. He remains on a consistent carbohydrate and heart healthy diet. His intake has been decreased secondary to lack of appetite 07/10/2017-Notes per Dr. Aguilar 07/11/2017-Notes per Dr. Aguilar 07/12/2017-Notes per Dr. Aguilar 07/13/2017 Patient seen and examined at the bedside. Patient remains sleepy but easily arousable. Patient is currently complaining of nausea and vomiting and continues to have episodes of emesis with bilious outpatient. He also states that sometimes he is just experiencing dry heaves. He states he is eating small amount of clear liquids. He states he is not having abdominal pain but states his abdomen is slightly sore from throwing up. His blood pressure remains elevated. He is unable to tolerate PO medications and was switched to Hydralazine IV per Dr. Aguilar. Patient was febrile last night at 100.9. This morning his temperature is 99.0. Urine culture from 07/08/2017 is negative at 18 hour shayne. Urine culture ordered on 07/12/2017 remains uncollected. Blood cultures from 07/12/2017 are currently pending. Nephrology is on consult. The patient is scheduled to undergo dialysis tomorrow. His last session was on Wednesday instead of Wednesday secondary to the holiday. Dr. Sy is following secondary to diabetic wound on right foot. Patient follows up outpatient in the wound center. The patient's doxycycline was discontinued and he was started on vancomycin per Dr. Sy. Also recommend continuing Santyl to ulcerations and then wrapping with gauze. 07/14/2017 Patient seen and examined at the bedside on rounds with Dr. Aguilar. The patient appears more awake this morning, but he states he continues to feel unwell and weak. He is undergoing hemodialysis. Nephrology is on consult. He states he has still been unable to tolerate liquids and was continuing to have episodes of emesis yesterday. His blood pressure remains elevated with a systolic blood pressure ranging from 170 to 190s. Repeat blood cultures from are negative at the 24 hour shayne. Urine culture remains uncollected. Dr. Sy is following secondary to diabetic wound on the right foot. He remains on vancomycin. 07/15/2017 Patient appears more awake today. His affects remains flat. He states that his nausea and vomiting is improved slightly but he continues to have episodes of bilious emesis and dry heaves. He states he had a few sips of leonard elen this morning and so far has kept it down. Patient is currently receiving Reglan, Compazine, Protonix, and Zofran. Scopolamine patches were added yesterday in attempt to decrease nausea. Additionally, erythromycin was added per infectious disease before meals. He underwent hemodialysis yesterday. He states no fluid was removed and he only had filtration performed. Patient is scheduled for AV fistula tomorrow with Dr. Ndiaye. His blood pressure remains elevated with a SBP ranging in the 170-190s. He is currently receiving hydralazine 20 mg IV every 4 hours. He is unable to tolerate PO anti- hypertensive medications at this time. Spoke with Dr. Ovalles regarding patients case and recommended GI consult for possible botox for gastroparesis. During patients previous admission in May 2017, gastroenterology was consulted and recommended EGD at that time but patient had refused. Patient states he is open to have EGD performed at this time if still recommended by GI. Will place consult to GI service. Patient has been refusing dressing changes to right foot. Spoke with patient regarding importance of routine dressing changes. Patient states he has agreeable to allow nursing to perform wound care and dressing changes. Patient states he has not been working with physical therapy because he has either been having dialysis or has been too nausea to participate. He states he is willing to participate with PT today. Patient's original discharge plan included home with home care. Discussed this in length with patient who feels he would benefit from subacute rehab at the time of discharge. Spoke with case management, Mariya, regarding this. Will also place consult to social work. Spoke with Joao physical therapist and asked if they could evaluate patient for subacute rehab. 07/16/2017 Patient seen and examined at the bedside. Patient states his nausea and vomiting is slowing improving. He was able to tolerate a Popsicle and leonard elen yesterday. Patient is currently receiving Reglan, Compazine, Protonix, scopolamine patches, erythromycin and Zofran. Gastroenterology was consulted yesterday for further evaluation. Currently awaiting recommendations. The patient was scheduled for AV Fistula today but he is refusing at this time. He states he wants to speak with nephro regarding possible transition back to peritoneal dialysis. The patient states he participated with physical therapy and occupational therapy yesterday. They are recommending subacute rehab at the time of discharge. Patient is requesting [facility]. The patient's blood pressure remains elevated with a systolic blood pressure ranging from 170s to 190s. Patient states he does not think he is able to tolerate PO meds at this time. He remains on hydralazine and Vasotec IV along with Catapres transdermal. He denies any further complaints or concerns at this time. 07/17/2017 The patient was not seen or evaluated by provider on this day as the patient left AGAINST MEDICAL ADVICE. Dr. Aguilar was notified via phone that patient stated he had a family emergency and was leaving the hospital immediately. Patient signed AMA form. Nurse practitioner was not involved in patients care on this day. DIETARY SERVICE AIDE acting as a scribe for Dr. Aguilar and dictating discharge summary as a scribe. Discharge Diagnosis: Anemia of chronic disease secondary to chronic kidney disease, requiring 2 blood transfusions outpatient (Jun 2017), s/p 1 unit RBC transfusion on 2016, maintained on Aranesp Persistent nausea and vomiting, present on admission, secondary to diabetic gastroparesis Generalized weakness and fatigue, possibly secondary to above and multiple co- morbidities End-stage renal disease, on hemodialysis Essential hypertension, currently uncontrolled Recent hospitalization for peritonitis with infected peritoneal dialysis catheter Diabetes mellitus, type II, previous hemoglobin A1c 9.9%, current hemoglobin A1c 6.3% Diabetic ulcer to right plantar foot and right lateral leg, status post surgical debridement on 07/01/2017 Moderate calorie protein malnutrition secondary to decreased oral intake Coronary artery disease with previous myocardial infarction Peripheral vascular disease with 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 Signing provider agrees with the documentation of Tamela Tomlinson NP, acting as a scribe for the physician. Patient Condition at Discharge: Fair Plan - Discharge Summary Discharge Rx Participant: Yes New Discharge Prescriptions: No Action Insulin Glargine [Lantus] 10 unit SQ HS Atorvastatin [Lipitor] 80 mg PO HS Calcium Acetate [PhosLo] 667 mg PO TID-W/MEALS Levothyroxine Sodium [Synthroid] 25 mcg PO DAILY Sevelamer [Renvela] 800 mg PO AC-TID Amiodarone [Cordarone] 200 mg PO BID amLODIPine [Norvasc] 10 mg PO DAILY Dilcia Jordan 1,600 mg PO BID Tamsulosin [Flomax] 0.8 mg PO PC-SUPPER Thiamine [Vitamin B-1] 100 mg PO DAILY levETIRAcetam [Keppra] 750 mg PO BID #60 tab Ammonium Lactate Lotion [Lac-Hydrin 12% Lotion] 1 applic TOPICAL BID #240 ml Gabapentin [Neurontin] 300 mg PO TID Famotidine [Pepcid] 20 mg PO BID traMADol HCL [Ultram] 50 mg PO Q6HR PRN PRN Reason: Pain Ondansetron [Zofran] 4 mg PO Q8HR PRN PRN Reason: Nausea acetaZOLAMIDE [Diamox] 125 mg PO BID Insulin Aspart [NovoLOG Flexpen] 3 units SQ TID-W/MEALS Divalproex Sodium [Depakote] 750 mg PO TID Cinacalcet [Sensipar] 30 mg PO MOWEFR Hydrocodone/Acetaminophen [Holgate 5-325] 1 - 2 each PO Q4HR PRN #30 tab PRN Reason: pain Discharge Medication List Atorvastatin [Lipitor] 80 mg PO HS 04/08/15 [History] Calcium Acetate [PhosLo] 667 mg PO TID-W/MEALS 04/08/15 [History] Insulin Glargine [Lantus] 10 unit SQ HS 04/08/15 [History] Levothyroxine Sodium [Synthroid] 25 mcg PO DAILY 04/08/15 [History] Sevelamer [Renvela] 800 mg PO AC-TID 01/20/16 [History] Amiodarone [Cordarone] 200 mg PO BID 05/20/17 [History] Dilcia Jordan 1,600 mg PO BID 05/20/17 [History] Tamsulosin [Flomax] 0.8 mg PO PC-SUPPER 05/20/17 [History] Thiamine [Vitamin B-1] 100 mg PO DAILY 05/20/17 [History] amLODIPine [Norvasc] 10 mg PO DAILY 05/20/17 [History] levETIRAcetam [Keppra] 750 mg PO BID #60 tab 06/01/17 [Rx] Ammonium Lactate Lotion [Lac-Hydrin 12% Lotion] 1 applic TOPICAL BID #240 ml 03/29 [Rx] Cinacalcet [Sensipar] 30 mg PO MOWEFR 08/06/17 [History] Divalproex Sodium [Depakote] 750 mg PO TID 08/06/17 [History] Famotidine [Pepcid] 20 mg PO BID 08/06/17 [History] Gabapentin [Neurontin] 300 mg PO TID 08/06/17 [History] Insulin Aspart [NovoLOG Flexpen] 3 units SQ TID-W/MEALS 08/06/17 [History] Ondansetron [Zofran] 4 mg PO Q8HR PRN 08/06/17 [History] acetaZOLAMIDE [Diamox] 125 mg PO BID 08/06/17 [History] traMADol HCL [Ultram] 50 mg PO Q6HR PRN 08/06/17 [History] Hydrocodone/Acetaminophen [Holgate 5-325] 1 - 2 each PO Q4HR PRN #30 tab 08/10/17 [Rx] Follow up Appointment(s)/Referral(s): Scott Aguilar Jr, DO [Primary Care Provider] - 1-2 days [facility], [NON-STAFF] - Discharge Disposition: Left Against Medical Advice
== END 2017-07-17 09:13 | disposition left against medical advice (07) | DRG 73 ==
LOC: EC 18:23 → 4MS4W 07-08 01:19 → 3SUR 07-08 06:20 → OBSVTOIN 07-11 08:01
PROVIDERS: ADMIT Family Medicine; ATTEND Family Medicine
PROC: 5A1D70Z Performance of Urinary Filtration, Intermittent, Less than 6 Hours Per Day (ICD-10-PCS; 2017-07-08)
PROC: 30233N1 Transfusion of Nonautologous Red Blood Cells into Peripheral Vein, Percutaneous Approach (ICD-10-PCS; principal; 2017-07-09)
DX: E11.43 Type 2 diabetes mellitus with diabetic autonomic (poly)neuropathy (principal); G93.41 Metabolic encephalopathy; E11.22 Type 2 diabetes mellitus with diabetic chronic kidney disease; E11.51 Type 2 diabetes mellitus with diabetic peripheral angiopathy without gangrene; E44.0 Moderate protein-calorie malnutrition; E87.1 Hypo-osmolality and hyponatremia; K81.1 Chronic cholecystitis; N18.6 End stage renal disease; I12.0 Hypertensive chronic kidney disease with stage 5 chronic kidney disease or end stage renal disease; E11.42 Type 2 diabetes mellitus with diabetic polyneuropathy; K31.84 Gastroparesis; L97.519 Non-pressure chronic ulcer of other part of right foot with unspecified severity; D63.1 Anemia in chronic kidney disease; I25.10 Atherosclerotic heart disease of native coronary artery without angina pectoris; K21.9 Gastro-esophageal reflux disease without esophagitis; E78.5 Hyperlipidemia, unspecified; G40.909 Epilepsy, unspecified, not intractable, without status epilepticus; M89.9 Disorder of bone, unspecified; E11.65 Type 2 diabetes mellitus with hyperglycemia; E11.621 Type 2 diabetes mellitus with foot ulcer; R11.2 Nausea with vomiting, unspecified; E61.1 Iron deficiency; E11.649 Type 2 diabetes mellitus with hypoglycemia without coma; I51.7 Cardiomegaly; Z99.2 Dependence on renal dialysis; Z68.28 Body mass index [BMI] 28.0-28.9, adult; I25.2 Old myocardial infarction; Z89.512 Acquired absence of left leg below knee; Z89.431 Acquired absence of right foot; Z86.14 Personal history of Methicillin resistant Staphylococcus aureus infection; Z79.899 Other long term (current) drug therapy; Z79.4 Long term (current) use of insulin; Z79.2 Long term (current) use of antibiotics; Z80.1 Family history of malignant neoplasm of trachea, bronchus and lung; Z98.41 Cataract extraction status, right eye; Z98.42 Cataract extraction status, left eye; Z86.718 Personal history of other venous thrombosis and embolism; Z53.21 Procedure and treatment not carried out due to patient leaving prior to being seen by health care provider
CPT/HCPCS: 36415; 71020; 71046; 80048; 80053; 80202; 81001; 82550; 82553; 83036; 83540; 83550; 83605; 83735; 84100; 84134; 84484; 85025; 85045; 85610; 85652; 85730; 86140; 86850; 86900; 86901; 86920; 87040; 87086; 90935; 93005; 96361; 96374; 96375; 99285

== ENCOUNTER 2017-08-10 10:42 | Day surgery (SDC) | payer MEDICARE, BC, OTHER ==
[2017-08-02 15:01] VITALS: BMI 28.7
[~2017-08-10 10:42] MED LIST: DEXAMETHASONE SOD PHOSPHATE 10 MG/ML 1 ML VIAL IV ONE; HEPARIN SODIUM,PORCINE 5,000 UNIT/ML 1 ML VIAL SQ ONE; LACTATED RINGERS 1,000 ML IV SCH; MIDAZOLAM 2 MG/2 ML VIAL IV PRN; MORPHINE SULFATE 4 MG/ML SYRINGE IV PRN; ONDANSETRON 4 MG/2 ML VIAL IVP ONE; SCOPOLAMINE 1.5MG/72HR PATCH TRANSDERM ONE; ceFAZolin IN SWFI 2 GM/20 ML SYRINGE IVP ONE
[2017-08-10] MEDS ORDERED: SODIUM CHLORIDE 0.9% 1,000 ML IV ONE (12:36)
[2017-08-10] MEDS ORDERED: LIDOCAINE 1% 20 ML VIAL (10MG/ML) FOR IV START INTRADERMA ONE (12:38)
[2017-08-10 12:41] LABS: Anisocytosis Slight; Basophils % (A) 1 %; Eosinophils # (A) 0.4 k/uL (0-0.7); Eosinophils % (A) 8 %; HCT 32.8 % (39.0-53.0); HGB 10.1 gm/dL (13.0-17.5); Hypochromasia Slight; Lymphocytes # (A) 0.8 k/uL (1.0-4.8); Lymphocytes % (A) 16 %; MCH 30.1 pg (25.0-35.0); MCHC 30.9 g/dL (31.0-37.0); MCV 97.3 fL (80.0-100.0); Mean Platelet Volume 7.6; Monocytes # (A) 0.4 k/uL (0-1.0); Monocytes % (A) 9 %; Neutrophils # (A) 3.2 k/uL (1.3-7.7); Neutrophils % (A) 65 %; Platelet Count 278 k/uL (150-450); RBC 3.37 m/uL (4.30-5.90)
[2017-08-10] MEDS ORDERED: MIDAZOLAM 2 MG/2 ML VIAL ONE (12:49)
[2017-08-10] MEDS ORDERED: PROPOFOL 10 MG/ML 20 ML VIAL IV ONE (12:49)
[2017-08-10] MEDS ORDERED: fentaNYL (PF) 50 MCG/ML 2 ML AMP ONE (12:49)
[2017-08-10 12:51] LABS: Glucose,Whole Blood 122 mg/dL (75-99)
[2017-08-10 12:57] LABS: Potassium 3.7 mmol/L (3.5-5.1)
[2017-08-10] MEDS ORDERED: MINERAL OIL 1 APPLIC/ML OIL TOPICAL ONE (13:23)
[2017-08-10] MEDS ORDERED: BUPIVACAINE (PF) 0.25% 30 ML VIAL SQ ONE (13:23)
[2017-08-10] MEDS ORDERED: HYDROcodone/APAP 5-325MG 1 EACH TAB PO PRN (13:57)
[2017-08-10] MEDS ORDERED: NALOXONE 0.4 MG/ML 1 ML VIAL IV PRN (13:57)
--- NOTE | 2017-08-10 14:00 | P.OP ---
Date of Procedure: 08/10/17 Procedure(s) Performed: PREOPERATIVE DIAGNOSIS: Renal failure POSTOPERATIVE DIAGNOSIS: Same PROCEDURE: Peritoneal dialysis catheter insertion SURGEON: Tila EBL: Minimal ANESTHESIA: Sedation plus local COMPLICATIONS: None OPERATIVE PROCEDURE: The patient was placed in the operative table in the supine position. His abdomen was prepped and draped in usual sterile fashion. A small vertical incision was made in the left periumbilical location. Dissection down through the subcutaneous tissues took place using electrocautery. The anterior rectus was divided vertically using the scalpel. The rectus was bluntly. The posterior rectus was visualized. An 0 Vicryl pursestring was placed. A small opening in the posterior rectus fascia and peritoneum took place using a Metzenbaum scissors. There were no adhesions to the suture that was placed. The fluid in the abdomen was somewhat cloudy in appearance. Cultures were taken at this time. The pigtail catheter was advanced into the pelvis over a stylette. No resistance was met. The inner cuff was secured to the fascia using the 0 Vicryl pursestring that was placed. The catheter was tunneled to an exit site in the left lateral lower quadrant. The catheter was connected to the 1 L bag of saline and approximated 800 mL of saline was easily introduced into the peritoneal cavity. The fluid was then allowed to evacuate. The majority of the fluid was returned. The anterior rectus fascia was then reapproximated using a running 0 Vicryl stitch. The subcutaneous tissues reprepped using 3-0 Vicryl sutures and the skin using 4-0 Monocryl sutures. The outpatient dialysis adapter was applied to the end of the catheter. A sterile dressings then applied after Steri-Strips were placed over the incision. DISPOSITION: Stable to recovery room
[2017-08-10 14:05] VITALS: TEMP 97
[2017-08-10 14:08] VITALS: RESP 16
[2017-08-10 15:07] LABS: Glucose,Whole Blood 138 mg/dL (75-99)
[2017-08-10 15:24] VITALS: BP 164/84; PULSE 68
== END 2017-08-10 16:01 | disposition home or self-care (01) ==
LOC: OR 10:42
PROVIDERS: ATTEND Surgery
DX: I25.10 Atherosclerotic heart disease of native coronary artery without angina pectoris (principal); I12.0 Hypertensive chronic kidney disease with stage 5 chronic kidney disease or end stage renal disease; E11.42 Type 2 diabetes mellitus with diabetic polyneuropathy; E11.22 Type 2 diabetes mellitus with diabetic chronic kidney disease; Z79.4 Long term (current) use of insulin; N18.6 End stage renal disease; Z99.2 Dependence on renal dialysis; E11.43 Type 2 diabetes mellitus with diabetic autonomic (poly)neuropathy; K31.84 Gastroparesis; Z86.718 Personal history of other venous thrombosis and embolism; K21.9 Gastro-esophageal reflux disease without esophagitis; G40.909 Epilepsy, unspecified, not intractable, without status epilepticus; E78.5 Hyperlipidemia, unspecified; E07.9 Disorder of thyroid, unspecified; Z86.73 Personal history of transient ischemic attack (TIA), and cerebral infarction without residual deficits; I25.2 Old myocardial infarction
CPT/HCPCS: 80048; 85025; 87070; 87205; 87075; 49418; C1752; J2250; J1644; J1100; J2405; J3010; J2704

== ENCOUNTER 2017-10-25 20:03 | Inpatient (IN) | payer BC, MEDICARE ==
[2017-10-25] MEDS ORDERED: SODIUM CHLORIDE 0.9% 1,000 ML IV STA (21:01)
[2017-10-25] MEDS ORDERED: cefTRIAXone 2,000 MG in SODIUM CHLORIDE 0.9% 100 ML IVPB STA (21:01)
[2017-10-25] MEDS ORDERED: KETOROLAC 30 MG/ML 1 ML VIAL IVP STA (21:01)
[2017-10-25] MEDS ORDERED: SODIUM CHLORIDE 0.9% 500 ML IV STA (21:01)
[2017-10-25] MEDS ORDERED: cefTRIAXone IN SWFI 2,000 MG/20 ML SYRINGE IVP ONE (21:15)
[2017-10-25] MEDS ORDERED: NITROGLYCERIN SL TABS 0.4 MG TAB SUBLINGUAL PRN (21:49)
--- NOTE | 2017-10-25 21:49 | ED ---
General Adult HPI - General Chief complaint: Abdominal Pain Stated complaint: cralwey issues/fever Time Seen by Provider: 10/25/17 20:26 Source: patient, RN notes reviewed, old records reviewed Mode of arrival: ambulatory Limitations: no limitations - History of Present Illness Initial comments: This is a 46-year-old male to the ER for evaluation patient is ER for evaluation of bowel pain. Patient has history of renal failure. Patient presents today for abdominal pain. Patient states he's having coronary diastole with fever not feeling well abdominal pain and having difficulty giving himself is dialysis. Patient states a retired he gets this he is up with bacterial infection. Patient states his heart feels. - Related Data Home Medications Medication Instructions Recorded Confirmed Atorvastatin [Lipitor] 80 mg PO HS 04/08/15 10/25/17 Calcium Acetate [PhosLo] 667 mg PO TID-W/MEALS 04/08/15 10/25/17 Insulin Glargine [Lantus] 10 unit SQ HS 04/08/15 10/25/17 Levothyroxine Sodium [Synthroid] 25 mcg PO DAILY 04/08/15 10/25/17 Sevelamer [Renvela] 800 mg PO QID 01/20/16 10/25/17 Amiodarone [Cordarone] 200 mg PO BID 05/20/17 10/25/17 Dilcia Jordan 1,600 mg PO BID 05/20/17 10/25/17 Tamsulosin [Flomax] 0.8 mg PO PC-SUPPER 05/20/17 10/25/17 Thiamine [Vitamin B-1] 100 mg PO DAILY 05/20/17 10/25/17 amLODIPine [Norvasc] 10 mg PO DAILY 05/20/17 10/25/17 Gabapentin [Neurontin] 300 mg PO TID 08/06/17 10/25/17 Insulin Aspart [NovoLOG Flexpen] 3 units SQ TID-W/MEALS 08/06/17 10/25/17 Ondansetron [Zofran] 4 mg PO Q8HR PRN 08/06/17 10/25/17 acetaZOLAMIDE [Diamox] 125 mg PO BID 08/06/17 10/25/17 traMADol HCL [Ultram] 50 mg PO Q6HR PRN 08/06/17 10/25/17 levETIRAcetam [Keppra] 500 mg PO TID 10/25/17 10/25/17 Previous Rx's Medication Instructions Recorded Ammonium Lactate Lotion 1 applic TOPICAL BID #240 ml 07/20/17 [Lac-Hydrin 12% Lotion] Allergies Allergy/AdvReac Type Severity Reaction Status Date / Time No Known Allergies Allergy Verified 10/25/17 21:02 Review of Systems ROS Statement: Those systems with pertinent positive or pertinent negative responses have been documented in the HPI. ROS Other: All systems not noted in ROS Statement are negative. Past Medical History Past Medical History: Diabetes Mellitus Additional Past Medical History / Comment(s): Pt recently admitted with peritonitis, hemodialysis M/W/F; possible TIA with L sided weakness/ resolved, Diabetic gastroparesis, renal failure, peripheral neuropathy, chronic anemia, compression fracture of the vertebral, blood clot from IV line in the upper extremity on the left, gastritis, current bernabe grade II diabetic ulcer plantar R foot and lateral R leg, Last Myocardial Infarction Date:: 2012 History of Any Multi-Drug Resistant Organisms: MRSA Date of last positivie culture/infection: 07/01/17 MDRO Source:: RIGHT FOOT Past Surgical History: Orthopedic Surgery Additional Past Surgical History / Comment(s): HD catheter, I&D R foot/lateral R leg, 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 Past Psychological History: No Psychological Hx Reported Smoking Status: Never smoker Past Alcohol Use History: None Reported Past Drug Use History: None Reported - Past Family History Father Family Medical History: Cancer Additional Family Medical History / Comment(s): CANCER FROM AGENT [employer] Mother History Unknown: Yes Family Medical History: Cancer, Supraventricular Tachycardia (SVT) Additional Family Medical History / Comment(s): LUNG CANCER(SMOKER) General Exam Limitations: no limitations General appearance: alert, in no apparent distress, lethargic Head exam: Present: atraumatic, normocephalic, normal inspection Eye exam: Present: normal appearance, PERRL, EOMI. Absent: scleral icterus, conjunctival injection, periorbital swelling ENT exam: Present: normal exam, mucous membranes moist Neck exam: Present: normal inspection. Absent: tenderness, meningismus, lymphadenopathy Respiratory exam: Present: normal lung sounds bilaterally. Absent: respiratory distress, wheezes, rales, rhonchi, stridor Cardiovascular Exam: Present: regular rate, normal rhythm, normal heart sounds. Absent: systolic murmur, diastolic murmur, rubs, gallop, clicks GI/Abdominal exam: Present: soft, tenderness, normal bowel sounds. Absent: distended, guarding, rebound, rigid Extremities exam: Present: normal inspection, full ROM, normal capillary refill. Absent: tenderness, pedal edema, joint swelling, calf tenderness Back exam: Present: normal inspection Neurological exam: Present: alert, oriented X3, CN II-XII intact Psychiatric exam: Present: normal affect, normal mood Skin exam: Present: warm, dry, intact, normal color. Absent: rash Course Vital Signs 10/25/17 20:21 Temperature 100 F H Pulse Rate 96 Respiratory 20 Rate Blood Pressure 174/94 O2 Sat by Pulse 96 Oximetry Medical Decision Making - Medical Decision Making 46-year-old male the ER for evaluation, fever abdominal pain. He'll dialysis, patient started on IV antibiotics to protect for spontaneous bacterial peritonitis will consult nephrology for further evaluation - Lab Data Result diagrams: 10/25/17 21:40 Lab Results 10/25/17 Range/Units 21:40 WBC 9.8 (3.8-10.6) k/uL RBC 4.36 (4.30-5.90) m/uL Hgb 11.6 L (13.0-17.5) gm/dL Hct 36.4 L (39.0-53.0) % MCV 83.5 (80.0-100.0) fL MCH 26.5 (25.0-35.0) pg MCHC 31.8 (31.0-37.0) g/dL RDW 15.8 H (11.5-15.5) % Plt Count 444 (150-450) k/uL Neutrophils % 84 % Lymphocytes % 7 % Monocytes % 6 % Eosinophils % 2 % Basophils % 0 % Neutrophils # 8.2 H (1.3-7.7) k/uL Lymphocytes # 0.7 L (1.0-4.8) k/uL Monocytes # 0.6 (0-1.0) k/uL Eosinophils # 0.2 (0-0.7) k/uL Basophils # 0.0 (0-0.2) k/uL Hypochromasia Slight Disposition Clinical Impression: End stage renal disease on dialysis, Chronic renal failure, stage 4 (severe), Weakness, Peritonitis due to infected peritoneal dialysis catheter Disposition: ADMITTED IP TO THIS HOSP Condition: Fair Is patient prescribed a controlled substance at discharge?: No If prescribed controlled substance>3 days was MAPS reviewed?: No When asked, does pt state using other controlled substances?: No Referrals: Scott Aguilar Jr, [Primary Care Provider] - 1-2 days
[2017-10-25 21:53] LABS: Basophils % (A) 0 %; Eosinophils # (A) 0.2 k/uL (0-0.7); Eosinophils % (A) 2 %; HCT 36.4 % (39.0-53.0); HGB 11.6 gm/dL (13.0-17.5); Hypochromasia Slight; Lymphocytes # (A) 0.7 k/uL (1.0-4.8); Lymphocytes % (A) 7 %; MCH 26.5 pg (25.0-35.0); MCHC 31.8 g/dL (31.0-37.0); MCV 83.5 fL (80.0-100.0); Mean Platelet Volume 6.8; Monocytes # (A) 0.6 k/uL (0-1.0); Monocytes % (A) 6 %; Neutrophils # (A) 8.2 k/uL (1.3-7.7); Neutrophils % (A) 84 %; Platelet Count 444 k/uL (150-450); RBC 4.36 m/uL (4.30-5.90); RDW 15.8 % (11.5-15.5); WBC 9.8 k/uL (3.8-10.6)
[2017-10-25] MEDS ORDERED: AMPICILLIN-SULBACTAM 3 GM in SODIUM CHLORIDE 0.9% 100 ML IVPB STA (21:54)
[2017-10-25 22:06] LABS: ALT 20 U/L (21-72); AST 22 U/L (17-59); Albumin 2.7 g/dL (3.5-5.0); Alkaline Phosphatase 137 U/L (38-126); Amylase <30 U/L (30-110); Anion Gap 17 mmol/L; Blood Urea Nitrogen 37 mg/dL (9-20); Calcium 8.1 mg/dL (8.4-10.2); Carbon Dioxide 24 mmol/L (22-30); Chloride 93 mmol/L (98-107); Glucose 97 mg/dL (74-99); Lipase 12 U/L (23-300); Sodium 134 mmol/L (137-145); Total Bilirubin 0.4 mg/dL (0.2-1.3); Total Protein 6.3 g/dL (6.3-8.2)
[2017-10-25 22:15] LABS: INR 1.1 (<1.2); Partial Thromboplastin Time 27.2 sec (22.0-30.0); Prothrombin Time 10.4 sec (9.0-12.0)
--- NOTE | 2017-10-25 22:23 | XR ---
EXAMINATION TYPE: XR abdomen acute w cxr DATE OF EXAM: 10/25/2017 COMPARISON: Chest x-ray 07/12/2017 HISTORY: Fever and abdominal pain TECHNIQUE: 5 views FINDINGS: Heart is enlarged. There is no gross heart failure. Lungs appear clear of consolidation. There is pro bably some pleural reaction at the lateral left lung base. There is vertebroplasty at T12. There are clips from cholecystectomy. There is no sign of intestinal obstruction or pneumoperitoneum. I see no pathologic calcifications over the kidneys. Exam is limited by the patient's size. There is apparent drainage catheter or dialysis catheter over the mid abdomen . IMPRESSION: Pleural reaction at the left lung base. Nonacute abdomen. Chest findings are new compared to old exam .
[2017-10-25] MEDS: SODIUM CHLORIDE 0.9% 1,000 ML IV SCH (22:29)
[2017-10-25 22:54] LABS: Creatine Kinase MB 5.4 ng/mL (0.0-2.4)
[2017-10-26 00:57] LABS: Glucose,Whole Blood 76 mg/dL (75-99)
[2017-10-26] MEDS ORDERED: MORPHINE SULFATE 4 MG/ML SYRINGE IVP PRN (01:05)
[2017-10-26] MEDS ORDERED: MORPHINE SULF 5MG/10ML VL ONE (02:34)
[2017-10-26] MEDS: MORPHINE SULFATE 4MG/4ML SYRG IVP PRN ×2 (02:53→07:03)
[2017-10-26 04:33] LABS: Cholesterol 131 mg/dL (<200); HDL Cholesterol 36 mg/dL (40-60); LDL Cholesterol,Calculated 71 mg/dL (0-99); Triglycerides 122 mg/dL (<150)
[2017-10-26] MEDS ORDERED: AMPICILLIN-SULBACTAM 3 GM in SODIUM CHLORIDE 0.9% 100 ML IVPB SCH (06:00)
[2017-10-26 07:08] LABS: Glucose,Whole Blood 99 mg/dL (75-99)
[2017-10-26 08:07] LABS: Creatine Kinase 123 U/L (55-170)
[2017-10-26 08:19] LABS: Troponin I <0.012 ng/mL (0.000-0.034)
[2017-10-26 08:22] LABS: Creatine Kinase MB 5.5 ng/mL (0.0-2.4)
[2017-10-26] MEDS ORDERED: cefTRIAXone 2,000 MG in SODIUM CHLORIDE 0.9% 100 ML IVPB SCH (09:00)
[2017-10-26] MEDS ORDERED: DIALYSIS (PERIT 1.5%) 1,000 ML 15 G/1,000 ML BAG INTRAPERIT ONE (09:45)
[2017-10-26] MEDS ORDERED: DIALYSIS INTRAPERIT ONE (09:45)
[2017-10-26 10:03] LABS: Albumin 2.4 g/dL (3.5-5.0); Calcium 7.6 mg/dL (8.4-10.2); Potassium 3.3 mmol/L (3.5-5.1); Total Bilirubin 0.4 mg/dL (0.2-1.3); Total Protein 5.9 g/dL (6.3-8.2)
[2017-10-26 10:13] LABS: Creatine Kinase 137 U/L (55-170)
[2017-10-26 10:26] LABS: Troponin I <0.012 ng/mL (0.000-0.034)
[2017-10-26 10:29] LABS: Creatine Kinase MB 6.3 ng/mL (0.0-2.4)
[2017-10-26] MEDS ORDERED: traMADol 50 MG TAB PO PRN (10:41)
[2017-10-26] MEDS: MORPHINE ORAL SOLN 10 MG/5 ML CUP PO PRN (11:00)
[2017-10-26 11:47] LABS: Glucose,Whole Blood 134 mg/dL (75-99)
[2017-10-26] MEDS ORDERED: HEPARIN SODIUM INTRAPERIT ONE (12:00)
[2017-10-26] MEDS ORDERED: DIALYSIS DEX INTRAPERIT ONE ×4 (12:00→20:00)
--- NOTE | 2017-10-26 12:14 | P.GSCN ---
History of Present Illness Consult date: 10/26/17 Reason for Consult: Occluded peritoneal catheter History of present illness: 46-year-old male known to our service. He has a history of chronic renal failure. I replaced his peritoneal dialysis catheter in July. He has had some difficulties with intermittent occlusion and poor drainage since that time. He has not been able to drain the catheter over the last 2 days. He has had increased abdominal bloating as a result of this. Mild diffuse abdominal pain as well. Denies fevers. The fluid was last able to drain it was clear in color. We were consulted to evaluate the catheter function. This is his second dialysis catheter. White blood cell count is normal. Review of Systems The patient denies any acute changes in vision or hearing, no dysphagia or odynophagia, no chest pain or shortness of breath, no dysuria or hematuria, no headache, no runny nose, no rectal bleeding or melena, no unexplained weight loss Past Medical History Past Medical History: Diabetes Mellitus Additional Past Medical History / Comment(s): Pt recently admitted with peritonitis, hemodialysis M/W/F; possible TIA with L sided weakness/ resolved, Diabetic gastroparesis, renal failure, peripheral neuropathy, chronic anemia, compression fracture of the vertebral, blood clot from IV line in the upper extremity on the left, gastritis, current bernabe grade II diabetic ulcer plantar R foot and lateral R leg, Last Myocardial Infarction Date:: 2012 History of Any Multi-Drug Resistant Organisms: MRSA Year Discovered:: 07/01/17 MDRO Source:: RIGHT FOOT Past Surgical History: Orthopedic Surgery Additional Past Surgical History / Comment(s): HD catheter, I&D R foot/lateral R leg, 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 Past Psychological History: No Psychological Hx Reported Additional Psychological History / Comment(s): Single. Denies significant alcohol or recreational drug use. Originally was from the [place] area and then moved down to [place]. Is now moved back to be with his family members in [place] since 2014. He has no experience. He denies any significant travel history. Brother has a pet dog in the home in which he lives. Relates that his 13-year-old daughter 2 years ago from suicide at the age of 13Relates that his 13-year-old daughter 2 years ago from suicide at the age of 13 Smoking Status: Never smoker Past Alcohol Use History: None Reported Past Drug Use History: None Reported - Past Family History Father Family Medical History: Cancer Additional Family Medical History / Comment(s): CANCER FROM [employer] Mother History Unknown: Yes Family Medical History: Cancer, Supraventricular Tachycardia (SVT) Additional Family Medical History / Comment(s): LUNG CANCER(SMOKER) Medications and Allergies Home Medications Medication Instructions Recorded Confirmed Type Atorvastatin [Lipitor] 80 mg PO HS 04/08/15 10/25/17 History Calcium Acetate [PhosLo] 667 mg PO TID-W/MEALS 04/08/15 10/25/17 History Insulin Glargine [Lantus] 10 unit SQ HS 04/08/15 10/25/17 History Levothyroxine Sodium [Synthroid] 25 mcg PO DAILY 04/08/15 10/25/17 History Sevelamer [Renvela] 800 mg PO QID 01/20/16 10/25/17 History Amiodarone [Cordarone] 200 mg PO BID 05/20/17 10/25/17 History Dilcia Jordan 1,600 mg PO BID 05/20/17 10/25/17 History Tamsulosin [Flomax] 0.8 mg PO PC-SUPPER 05/20/17 10/25/17 History Thiamine [Vitamin B-1] 100 mg PO DAILY 05/20/17 10/25/17 History amLODIPine [Norvasc] 10 mg PO DAILY 05/20/17 10/25/17 History Ammonium Lactate Lotion 1 applic TOPICAL BID #240 ml 07/20/17 10/25/17 Rx [Lac-Hydrin 12% Lotion] Gabapentin [Neurontin] 300 mg PO TID 08/06/17 10/25/17 History Insulin Aspart [NovoLOG Flexpen] 3 units SQ TID-W/MEALS 08/06/17 10/25/17 History Ondansetron [Zofran] 4 mg PO Q8HR PRN 08/06/17 10/25/17 History acetaZOLAMIDE [Diamox] 125 mg PO BID 08/06/17 10/25/17 History traMADol HCL [Ultram] 50 mg PO Q6HR PRN 08/06/17 10/25/17 History levETIRAcetam [Keppra] 500 mg PO TID 10/25/17 10/25/17 History Allergies Allergy/AdvReac Type Severity Reaction Status Date / Time No Known Allergies Allergy Verified 10/25/17 21:02 Surgical - Exam Vital Signs Temp Pulse Resp BP Pulse Ox 100 F H 96 20 174/94 96 10/25/17 20:21 10/25/17 20:21 10/25/17 20:21 10/25/17 20:21 10/25/17 20:21 Physical exam: General: Well-developed, well-nourished HEENT: Normocephalic, sclerae nonicteric Abdomen: Mild diffuse tenderness, left lower quadrant catheter intact, some distention Extremities: Lower extremity amputation noted Neuro: Alert and oriented Results - Labs 10/25/17 21:40 10/26/17 09:25 Abnormal Lab Results - Last 24 Hours (Table) 10/25/17 10/25/17 10/25/17 Range/Units 21:40 21:40 21:40 Hgb 11.6 L (13.0-17.5) gm/dL Hct 36.4 L (39.0-53.0) % RDW 15.8 H (11.5-15.5) % Neutrophils # 8.2 H (1.3-7.7) k/uL Lymphocytes # 0.7 L (1.0-4.8) k/uL Sodium 134 L (137-145) mmol/L Potassium 3.0 L* (3.5-5.1) mmol/L Chloride 93 L (98-107) mmol/L Carbon Dioxide (22-30) mmol/L BUN 37 H (9-20) mg/dL Creatinine 9.50 H* (0.66-1.25) mg/dL Glucose (74-99) mg/dL POC Glucose (mg/dL) (75-99) mg/dL Plasma Lactic Acid Massimo (0.7-2.0) mmol/L Calcium 8.1 L (8.4-10.2) mg/dL ALT 20 L (21-72) U/L Alkaline Phosphatase 137 H (38-126) U/L CK-MB (CK-2) 5.4 H* (0.0-2.4) ng/mL Total Protein (6.3-8.2) g/dL Albumin 2.7 L (3.5-5.0) g/dL HDL Cholesterol (40-60) mg/dL Amylase <30 L (30-110) U/L Lipase 12 L (23-300) U/L 10/25/17 10/25/17 10/26/17 Range/Units 21:40 21:40 03:20 Hgb (13.0-17.5) gm/dL Hct (39.0-53.0) % RDW (11.5-15.5) % Neutrophils # (1.3-7.7) k/uL Lymphocytes # (1.0-4.8) k/uL Sodium (137-145) mmol/L Potassium (3.5-5.1) mmol/L Chloride (98-107) mmol/L Carbon Dioxide (22-30) mmol/L BUN (9-20) mg/dL Creatinine (0.66-1.25) mg/dL Glucose (74-99) mg/dL POC Glucose (mg/dL) (75-99) mg/dL Plasma Lactic Acid Massimo 0.6 L (0.7-2.0) mmol/L Calcium (8.4-10.2) mg/dL ALT (21-72) U/L Alkaline Phosphatase (38-126) U/L CK-MB (CK-2) 5.5 H* (0.0-2.4) ng/mL Total Protein (6.3-8.2) g/dL Albumin (3.5-5.0) g/dL HDL Cholesterol 36 L (40-60) mg/dL Amylase (30-110) U/L Lipase (23-300) U/L 10/26/17 10/26/17 10/26/17 Range/Units 09:25 09:25 11:38 Hgb (13.0-17.5) gm/dL Hct (39.0-53.0) % RDW (11.5-15.5) % Neutrophils # (1.3-7.7) k/uL Lymphocytes # (1.0-4.8) k/uL Sodium 135 L (137-145) mmol/L Potassium 3.3 L (3.5-5.1) mmol/L Chloride 97 L (98-107) mmol/L Carbon Dioxide 20 L (22-30) mmol/L BUN 40 H (9-20) mg/dL Creatinine 9.65 H* (0.66-1.25) mg/dL Glucose 112 H (74-99) mg/dL POC Glucose (mg/dL) 134 H (75-99) mg/dL Plasma Lactic Acid Massimo (0.7-2.0) mmol/L Calcium 7.6 L (8.4-10.2) mg/dL ALT (21-72) U/L Alkaline Phosphatase 196 H (38-126) U/L CK-MB (CK-2) 6.3 H* (0.0-2.4) ng/mL Total Protein 5.9 L (6.3-8.2) g/dL Albumin 2.4 L (3.5-5.0) g/dL HDL Cholesterol (40-60) mg/dL Amylase (30-110) U/L Lipase (23-300) U/L Diabetes panel 10/25/17 10/25/17 10/26/17 Range/Units 21:40 21:40 09:25 Sodium 134 L 135 L (137-145) mmol/L Potassium 3.0 L* 3.3 L (3.5-5.1) mmol/L Chloride 93 L 97 L (98-107) mmol/L Carbon Dioxide 24 20 L (22-30) mmol/L BUN 37 H 40 H (9-20) mg/dL Creatinine 9.50 H* 9.65 H* (0.66-1.25) mg/dL Glucose 97 112 H (74-99) mg/dL Calcium 8.1 L 7.6 L (8.4-10.2) mg/dL AST 22 25 (17-59) U/L ALT 20 L 29 (21-72) U/L Alkaline Phosphatase 137 H 196 H (38-126) U/L Total Protein 6.3 5.9 L (6.3-8.2) g/dL Albumin 2.7 L 2.4 L (3.5-5.0) g/dL Triglycerides 122 (<150) mg/dL HDL Cholesterol 36 L (40-60) mg/dL Calcium panel 10/25/17 10/26/17 Range/Units 21:40 09:25 Calcium 8.1 L 7.6 L (8.4-10.2) mg/dL Albumin 2.7 L 2.4 L (3.5-5.0) g/dL Pituitary panel 10/25/17 10/26/17 Range/Units 21:40 09:25 Sodium 134 L 135 L (137-145) mmol/L Potassium 3.0 L* 3.3 L (3.5-5.1) mmol/L Chloride 93 L 97 L (98-107) mmol/L Carbon Dioxide 24 20 L (22-30) mmol/L BUN 37 H 40 H (9-20) mg/dL Creatinine 9.50 H* 9.65 H* (0.66-1.25) mg/dL Glucose 97 112 H (74-99) mg/dL Calcium 8.1 L 7.6 L (8.4-10.2) mg/dL Adrenal panel 10/25/17 10/26/17 Range/Units 21:40 09:25 Sodium 134 L 135 L (137-145) mmol/L Potassium 3.0 L* 3.3 L (3.5-5.1) mmol/L Chloride 93 L 97 L (98-107) mmol/L Carbon Dioxide 24 20 L (22-30) mmol/L BUN 37 H 40 H (9-20) mg/dL Creatinine 9.50 H* 9.65 H* (0.66-1.25) mg/dL Glucose 97 112 H (74-99) mg/dL Calcium 8.1 L 7.6 L (8.4-10.2) mg/dL Total Bilirubin 0.4 0.4 (0.2-1.3) mg/dL AST 22 25 (17-59) U/L ALT 20 L 29 (21-72) U/L Alkaline Phosphatase 137 H 196 H (38-126) U/L Total Protein 6.3 5.9 L (6.3-8.2) g/dL Albumin 2.7 L 2.4 L (3.5-5.0) g/dL Assessment and Plan (1) Peritoneal dialysis catheter in situ Narrative/Plan: Patient's dialysis catheter appears to be partially occluded. Likely related to fibrin within the catheter. I have asked interventional radiology to pass a wire down the catheter to see if the occlusion can be handled in that fashion. If not plan laparoscopic evaluation. Risks of bleeding, infection, and perforation discussed. He understands and wishes to proceed. Current Visit: No Status: Chronic Code(s): Z99.2 - DEPENDENCE ON RENAL DIALYSIS SNOMED Code(s): 308928060
[2017-10-26] MEDS: CALCIUM ACETATE 667 MG CAP PO SCH ×2 (13:17→18:11)
[2017-10-26] MEDS: INSULIN ASPART 100 UNIT/ML 1 ML 10 ML VIAL SQ SCH ×2 (13:47→18:11)
[2017-10-26] MEDS: SEVELAMER 800 MG TAB PO SCH ×2 (13:54→18:17)
[2017-10-26] MEDS ORDERED: MORPHINE SULFATE 4MG/4ML SYRG IVP STA (15:04)
[2017-10-26] MEDS: ONDANSETRON 4 MG/2 ML VIAL IVP PRN ×2 (15:07→20:23)
[2017-10-26] MEDS ORDERED: CEFTAZIDIME INTRAPERIT ONE ×3 (16:00→20:00)
[2017-10-26] MEDS ORDERED: DIALYSIS (PERIT 1.5%) 2,000 ML 30 G/2,000 ML BAG INTRAPERIT SCH (16:00)
[2017-10-26] MEDS ORDERED: VANCOMYCIN INTRAPERIT ONE ×3 (16:00→20:00)
[2017-10-26] MEDS ORDERED: levETIRAcetam 500 MG TAB PO SCH (16:00)
[2017-10-26] MEDS ORDERED: IODIXANOL 270 MG/ML 50 ML ML IV ONE (16:01)
[2017-10-26] MEDS ORDERED: IV FLUID CONTINUATION 1,000 ML IV ONE (16:02)
--- NOTE | 2017-10-26 16:49 | IR ---
Shuntogram HISTORY: Malfunctioning peritoneal dialysis catheter 1.3 minutes fluoroscopy time, 1000 images document the procedure Patient's indwelling tube was prepped. Guidewire was advanced under fluoroscopic guidance through the tube. Gentle hand injection of contrast material was performed. Procedure patient remained stable without complication. FINDINGS: The wire passed easily into the catheter. Contrast material was noted to course through a s felicia-port of the tube under fluoroscopy. Catheter and did not show contrast opacification. Suggestion of encased appearance compatible with fibrin sheath over the catheter. IMPRESSION: Side-port was established which is patent however fibrin sheath burden appears to be sign ificant around the catheter. Catheter may be fixed in place due to adhesions. Case discussed with ref erring clinician telephonically at the time of performance of the exam.
[2017-10-26] MEDS ORDERED: POTASSIUM CHLORIDE ER 20 MEQ TAB.ER PO STA (17:03)
--- NOTE | 2017-10-26 17:26 | P.NPCON ---
History of Present Illness - Reason for Consult end stage renal disease - History of Present Illness Reason for consultation: End-stage renal disease History of present illness: Patient is a 46-year-old male seen in renal consultation for end-stage renal disease. He is maintained on peritoneal dialysis. Patient states the last 2 days he has not been able to drain the dialysis. He feels a little bloated. States he had a low-grade fever of 99 degrees Fahrenheit. Dialysate has been clear. Admits to intermittent nausea. No vomiting. Denies chest pain or shortness of breath. He was evaluated by general surgery. He underwent a shuntogram by interventional radiology which revealed significant fibrin sheath around the catheter. He was also noted to have fibrin and also tried heparin in the dialysate as an outpatient with no improvement in outflow. Hemodynamically stable. Potassium is 3.3 today. Oral intake is fair. White count is 9.8. No other signs of sepsis. Vital signs are stable. General: The patient appeared well nourished and normally developed. HEENT: Head exam is unremarkable. Neck is without jugular venous distension. LUNGS: Lungs are clear to auscultation and percussion. Breath sounds decreased. HEART: Rate and Rhythm are regular. First and second heart sounds normal. No murmurs, rubs or gallops. ABDOMEN: Abdominal exam reveals normal bowel sounds. Non-tender and non- distended. No evidence of peritonitis. EXTREMITITES: Trace edema. Below the knee amputation noted. Past Medical History Past Medical History: Diabetes Mellitus Additional Past Medical History / Comment(s): Pt recently admitted with peritonitis, hemodialysis M/W/F; possible TIA with L sided weakness/ resolved, Diabetic gastroparesis, renal failure, peripheral neuropathy, chronic anemia, compression fracture of the vertebral, blood clot from IV line in the upper extremity on the left, gastritis, current bernabe grade II diabetic ulcer plantar R foot and lateral R leg, Last Myocardial Infarction Date:: 2012 History of Any Multi-Drug Resistant Organisms: MRSA Date of last positivie culture/infection: 07/01/17 MDRO Source:: RIGHT FOOT Past Surgical History: Orthopedic Surgery Additional Past Surgical History / Comment(s): HD catheter, I&D R foot/lateral R leg, 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 Past Psychological History: No Psychological Hx Reported Additional Psychological History / Comment(s): Single. Denies significant alcohol or recreational drug use. Originally was from the [place] area and then moved down to [place]. Is now moved back to be with his family members in [place] since 2014. He has no experience. He denies any significant travel history. Brother has a pet dog in the home in which he lives. Relates that his 13-year-old daughter 2 years ago from suicide at the age of 13Relates that his 13-year-old daughter 2 years ago from suicide at the age of 13 Smoking Status: Never smoker Past Alcohol Use History: None Reported Past Drug Use History: None Reported - Past Family History Father Family Medical History: Cancer Additional Family Medical History / Comment(s): CANCER FROM AG[employer] Mother History Unknown: Yes Family Medical History: Cancer, Supraventricular Tachycardia (SVT) Additional Family Medical History / Comment(s): LUNG CANCER(SMOKER) Medications and Allergies Home Medications Medication Instructions Recorded Confirmed Type Atorvastatin [Lipitor] 80 mg PO HS 04/08/15 10/25/17 History Calcium Acetate [PhosLo] 667 mg PO TID-W/MEALS 04/08/15 10/25/17 History Insulin Glargine [Lantus] 10 unit SQ HS 04/08/15 10/25/17 History Levothyroxine Sodium [Synthroid] 25 mcg PO DAILY 04/08/15 10/25/17 History Sevelamer [Renvela] 800 mg PO QID 01/20/16 10/25/17 History Amiodarone [Cordarone] 200 mg PO BID 05/20/17 10/25/17 History Dilcia Jordan 1,600 mg PO BID 05/20/17 10/25/17 History Tamsulosin [Flomax] 0.8 mg PO PC-SUPPER 05/20/17 10/25/17 History Thiamine [Vitamin B-1] 100 mg PO DAILY 05/20/17 10/25/17 History amLODIPine [Norvasc] 10 mg PO DAILY 05/20/17 10/25/17 History Ammonium Lactate Lotion 1 applic TOPICAL BID #240 ml 07/20/17 10/25/17 Rx [Lac-Hydrin 12% Lotion] Gabapentin [Neurontin] 300 mg PO TID 08/06/17 10/25/17 History Insulin Aspart [NovoLOG Flexpen] 3 units SQ TID-W/MEALS 08/06/17 10/25/17 History Ondansetron [Zofran] 4 mg PO Q8HR PRN 08/06/17 10/25/17 History acetaZOLAMIDE [Diamox] 125 mg PO BID 08/06/17 10/25/17 History traMADol HCL [Ultram] 50 mg PO Q6HR PRN 08/06/17 10/25/17 History levETIRAcetam [Keppra] 500 mg PO TID 10/25/17 10/25/17 History Allergies Allergy/AdvReac Type Severity Reaction Status Date / Time No Known Allergies Allergy Verified 10/25/17 21:02 Physical Exam Vitals: Vital Signs Temp Pulse Pulse Resp BP BP BP 10/26/17 16:49 97.3 F L 85 16 141/85 10/26/17 09:04 97.1 F L 89 16 131/79 10/25/17 23:09 97.8 F 87 16 146/98 10/25/17 20:21 100 F H 96 20 174/94 Pulse Ox 10/26/17 16:49 94 L 10/26/17 09:04 94 L 10/25/17 23:09 98 10/25/17 20:21 96 Intake and Output 10/26/17 10/26/17 10/26/17 06:59 14:59 22:59 Intake Total 850 420 50 Balance 850 420 50 Intake: IV 300 50 Sodium Chloride 0.9% 1, 300 000 ml @ 50 mls/hr IV . Q20H [facility] Rx#:[id number] Amount of Fluid Infused ( 850 ml) Oral 120 Other: # Voids 0 Weight 101 kg Results - Lab Results Most recent lab results Calcium 7.6 mg/dL (8.4-10.2) L 10/26/17 09:25 10/25/17 21:40 10/26/17 09:25 Assessment and Plan Plan: Assessment: #1. End-stage renal disease maintained on peritoneal dialysis. #2. Abdominal pain due to inability to drain dialysate related to fibrin around the catheter. Doubt peritonitis. #3. Hypokalemia related to diuretics and peritoneal dialysis. #4. Hypertension with chronic kidney disease. #5. Chronic kidney disease mineral bone disease maintained on PhosLo and Renvela. #6. Insulin-dependent diabetes mellitus. #7. Metabolic acidosis secondary to chronic kidney disease. Plan: 1 L exchange to dwell for 3 hours. Fluid will then be sent for cell count, culture and Gram stain. 1 g of IV vancomycin and 1 g of IV Fortaz today. Gen. surgery following. If still has trouble with inflow and outflow, may require laparoscopic evaluation. Patient still has a permacath in place. If unable to tolerate PD at this time, I will schedule him for hemodialysis treatment tomorrow. Replace potassium. 40 mg today. Check magnesium level. Repeat electrolytes in the morning. Maintain heparin in dialysate. Follow-up cultures. Thank you for the consultation. I will continue to follow the patient with you during his hospital stay.
[2017-10-26] MEDS: AMPICILLIN-SULBACTAM 3 GM in SODIUM CHLORIDE 0.9% 100 ML IVPB SCH (17:29)
[2017-10-26 17:57] LABS: Glucose,Whole Blood 112 mg/dL (75-99)
[2017-10-26] MEDS: GABAPENTIN 300 MG CAP PO SCH (18:11)
[2017-10-26] MEDS ORDERED: TAMSULOSIN 0.4 MG CAP.ER.24H PO SCH (18:30)
[2017-10-26] MEDS ORDERED: VANCOMYCIN 1,000 MG in SODIUM CHLORIDE 0.9% 250 ML IVPB ONE (20:00)
[2017-10-26 20:32] LABS: Glucose,Whole Blood 110 mg/dL (75-99)
[2017-10-26] MEDS: acetaZOLAMIDE 250 MG TAB PO SCH (20:39)
[2017-10-26] MEDS: INSULIN DETEMIR 100 UNIT/ML 10 ML VIAL SQ SCH (20:40)
[2017-10-26] MEDS: ATORVASTATIN 80 MG TAB PO SCH (20:40)
[2017-10-26] MEDS: AMIODARONE 200 MG TAB PO SCH (20:40)
[2017-10-26] MEDS: TAMSULOSIN 0.4 MG CAP.ER.24H PO SCH (20:41)
[2017-10-26] MEDS: RENA VITE PO SCH (20:41)
[2017-10-26 22:18] LABS: Hemoglobin A1C 6.8 % (4.0-6.0)
[2017-10-26 22:29] LABS: Appearance,BF Hazy; Color,BF Colorless; Nucleated Cells, Body Fluid 45 /uL; RBC, Body Fluid 450 /uL
[2017-10-26 22:37] LABS: Mononuclear WBC,Body Fluid 35 %; Polynuclear WBC,Body Fluid 65 %; Total Cells Counted,Body Fluid 100
[2017-10-26] MEDS ORDERED: GABAPENTIN 300 MG CAP ONE (23:15)
[2017-10-26] MEDS ORDERED: FAMOTIDINE 20 MG TAB ONE (23:15)
[2017-10-26] MEDS ORDERED: levETIRAcetam 250 MG TAB ONE (23:15)
[2017-10-27] MEDS ORDERED: ONDANSETRON 4 MG/2 ML VIAL ONE (02:20)
[2017-10-27 07:18] LABS: Glucose,Whole Blood 98 mg/dL (75-99)
[2017-10-27 07:51] LABS: Basophils % (A) 0 %; Eosinophils # (A) 0.1 k/uL (0-0.7); Eosinophils % (A) 1 %; HCT 32.3 % (39.0-53.0); HGB 10.1 gm/dL (13.0-17.5); Hypochromasia Marked; Lymphocytes # (A) 0.5 k/uL (1.0-4.8); Lymphocytes % (A) 6 %; MCH 27.4 pg (25.0-35.0); MCHC 31.2 g/dL (31.0-37.0); MCV 87.6 fL (80.0-100.0); Mean Platelet Volume 6.8; Monocytes # (A) 0.6 k/uL (0-1.0); Monocytes % (A) 7 %; Neutrophils # (A) 6.8 k/uL (1.3-7.7); Neutrophils % (A) 83 %; Platelet Count 356 k/uL (150-450); Poikilocytosis Slight; RBC 3.68 m/uL (4.30-5.90); RDW 15.3 % (11.5-15.5); WBC 8.1 k/uL (3.8-10.6)
[2017-10-27] MEDS: ONDANSETRON 4 MG/2 ML VIAL IVP PRN ×3 (07:54→17:39)
[2017-10-27 07:59] LABS: Albumin 2.1 g/dL (3.5-5.0); Calcium 7.5 mg/dL (8.4-10.2); Magnesium 1.5 mg/dL (1.6-2.3); Phosphorus 7.8 mg/dL (2.5-4.5); Potassium 3.5 mmol/L (3.5-5.1); Total Bilirubin 0.3 mg/dL (0.2-1.3); Total Protein 5.1 g/dL (6.3-8.2)
[2017-10-27] MEDS: levETIRAcetam 250 MG TAB PO SCH ×2 (09:58→11:00)
[2017-10-27] MEDS: AMMONIUM LACTATE 12% LOTION 225 GM BTL TOPICAL SCH ×3 (09:58→20:53)
[2017-10-27] MEDS: INSULIN ASPART 100 UNIT/ML 1 ML 10 ML VIAL SQ SCH ×5 (09:58→20:53)
[2017-10-27] MEDS: FAMOTIDINE 20 MG TAB PO SCH ×2 (09:58→10:59)
[2017-10-27] MEDS: AMPICILLIN-SULBACTAM 3 GM in SODIUM CHLORIDE 0.9% 100 ML IVPB SCH (09:59)
[2017-10-27] MEDS: HEPARIN SODIUM (1,000 UNIT/ML) 1,250 UNIT in DIALYSIS (PERITONL) DEX 1.5% 2,000 ML INTRAPERIT SCH ×2 (10:00→10:01)
[2017-10-27] MEDS: CALCIUM ACETATE 667 MG CAP PO SCH ×3 (10:00→18:40)
[2017-10-27] MEDS: GABAPENTIN 300 MG CAP PO SCH ×2 (10:06→11:11)
[2017-10-27] MEDS: SEVELAMER 800 MG TAB PO SCH ×5 (10:06→20:54)
[2017-10-27] MEDS: SODIUM CHLORIDE 0.9% 1,000 ML IV SCH (10:07)
--- NOTE | 2017-10-27 10:18 | P.HPIM ---
History of Present Illness H&P Date: 10/26/17 Chief Complaint: Abdominal pain 46-year-old male who presented to the emergency room with a chief complaint of abdominal pain that has persisted over the last two days. Patient states he has been having difficulty getting his PD catheter to drain and has not been able to properly complete a PD exchange in two days. He reports abdominal distention and bloating. Reports generalized abdominal pain. He denies nausea or vomiting. Denies chest pain or pressure. Denies shortness of breath. The patient has a history of end stage renal disease, coronary artery disease, diabetes, DVT, GERD, hypertension, hyperlipidemia, [place], PVD with a left below the knee amputation. 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 The patient was hospitalized in 2016 for peritonitis. His PD catheter was removed and the patient was placed on hemodialysis. The patient was also hospitalized in July 2017 for nausea and vomiting. He left AMA during that admission. Dr. Adorno replaced his PD catheter in July 2017. Acute abdomen series: Pleural reaction at the left lung base. Nonacute abdomen. Laboratory data: WBC 9.8. Hemoglobin 11.6. Platelet count 444. Sodium 134. Potassium 3.0. BUN 37. Creatinine 9.5. Lactic acid: 0.6 AST 22. ALT 20. Alkaline phosphatase 137. The patients BP upon admission was 174/94. He was febrile with a temperature of 100.0 Heart rate 96. RR 20. The patient was admitted to the hospital under the care of Dr. Hough. Review of Systems GENERAL: Patient denies fever. Denies chills. EYES: Denies blurred vision. Denies vision changes. Denies eye pain. EARS, NOSE, MOUTH, & THROAT: Denies headache. Denies sore throat. Denies ear pain. RESPIRATORY: Denies cough. Denies shortness of breath. Denies sputum production. Denies hemoptysis. CARDIOVASCULAR: Denies chest pain or pressure. Denies palpitations. Denies arrhythmias. GASTROINTESTINAL: Positive for generalized abdominal pain. Positive for abdominal distention. Denies diarrhea. Denies constipation. Denies nausea. Denies vomiting. Denies heartburn. Denies blood in the stool. GENITOURINARY: Denies urinary frequency. Denies burning. Denies dysuria. Denies cloudy urine. Denies blood in the urine. MUSCULOSKELETAL: Denies myalgias. Denies joint swelling. Denies decreased range of motion beyond patients baseline. INTEGUMENTARY: Denies pruitis. Denies rash. PSYCHIATRIC: Denies suicidal or homicial ideations. ENDOCRINE: Denies weight change. Denies polydipsia. Denies polyuria. HEMATOLOGIC: Denies bleeding disorders. Past Medical History Past Medical History: Diabetes Mellitus Additional Past Medical History / Comment(s): Pt recently admitted with peritonitis, hemodialysis M/W/F; possible TIA with L sided weakness/ resolved, Diabetic gastroparesis, renal failure, peripheral neuropathy, chronic anemia, compression fracture of the vertebral, blood clot from IV line in the upper extremity on the left, gastritis, current bernabe grade II diabetic ulcer plantar R foot and lateral R leg, Last Myocardial Infarction Date:: 2012 History of Any Multi-Drug Resistant Organisms: MRSA Date of last positivie culture/infection: 07/01/17 MDRO Source:: RIGHT FOOT Past Surgical History: Orthopedic Surgery Additional Past Surgical History / Comment(s): HD catheter, I&D R foot/lateral R leg, 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 Past Psychological History: No Psychological Hx Reported Additional Psychological History / Comment(s): Single. Denies significant alcohol or recreational drug use. Originally was from the [place] area and then moved down to [place]. Is now moved back to be with his family members in [place] since 2014. He has no experience. He denies any significant travel history. Brother has a pet dog in the home in which he lives. Relates that his 13-year-old daughter 2 years ago from suicide at the age of 13Relates that his 13-year-old daughter 2 years ago from suicide at the age of 13 Smoking Status: Never smoker Past Alcohol Use History: None Reported Past Drug Use History: None Reported - Past Family History Father Family Medical History: Cancer Additional Family Medical History / Comment(s): CANCER FROM [employer] [place] Mother History Unknown: Yes Family Medical History: Cancer, Supraventricular Tachycardia (SVT) Additional Family Medical History / Comment(s): LUNG CANCER(SMOKER) Medications and Allergies Home Medications Medication Instructions Recorded Confirmed Type Atorvastatin [Lipitor] 80 mg PO HS 04/08/15 10/25/17 History Calcium Acetate [PhosLo] 667 mg PO TID-W/MEALS 04/08/15 10/25/17 History Insulin Glargine [Lantus] 10 unit SQ HS 04/08/15 10/25/17 History Levothyroxine Sodium [Synthroid] 25 mcg PO DAILY 04/08/15 10/25/17 History Sevelamer [Renvela] 800 mg PO QID 01/20/16 10/25/17 History Amiodarone [Cordarone] 200 mg PO BID 05/20/17 10/25/17 History Dilcia Jordan 1,600 mg PO BID 05/20/17 10/25/17 History Tamsulosin [Flomax] 0.8 mg PO PC-SUPPER 05/20/17 10/25/17 History Thiamine [Vitamin B-1] 100 mg PO DAILY 05/20/17 10/25/17 History amLODIPine [Norvasc] 10 mg PO DAILY 05/20/17 10/25/17 History Ammonium Lactate Lotion 1 applic TOPICAL BID #240 ml 07/20/17 10/25/17 Rx [Lac-Hydrin 12% Lotion] Gabapentin [Neurontin] 300 mg PO TID 08/06/17 10/25/17 History Insulin Aspart [NovoLOG Flexpen] 3 units SQ TID-W/MEALS 08/06/17 10/25/17 History Ondansetron [Zofran] 4 mg PO Q8HR PRN 08/06/17 10/25/17 History acetaZOLAMIDE [Diamox] 125 mg PO BID 08/06/17 10/25/17 History traMADol HCL [Ultram] 50 mg PO Q6HR PRN 08/06/17 10/25/17 History levETIRAcetam [Keppra] 750 mg PO BID 10/25/17 10/26/17 History Allergies Allergy/AdvReac Type Severity Reaction Status Date / Time No Known Allergies Allergy Verified 10/25/17 21:02 Physical Exam Vitals: Vital Signs Temp Pulse Pulse Resp BP BP BP 10/26/17 09:04 97.1 F L 89 16 131/79 10/25/17 23:09 97.8 F 87 16 146/98 10/25/17 20:21 100 F H 96 20 174/94 Pulse Ox 10/26/17 09:04 94 L 10/25/17 23:09 98 10/25/17 20:21 96 Intake and Output 10/25/17 10/26/17 10/26/17 22:59 06:59 14:59 Intake Total 850 120 Balance 850 120 Intake: Amount of Fluid Infused ( 850 ml) Oral 120 Other: # Voids 0 Weight 101 kg 101 kg GENERAL: This is a 46-year-old male in no apparent distress at the time of examination. Pleasant and cooperative. HEENT: Head is atraumatic, normocephalic. Pupils are equal, round, and reactive to light. Sclerae anicteric. Conjunctivae are clear. Mucus membranes of the mouth are moist. Neck is supple. RESPIRATORY: Clear to ausculation. No wheezes, rales, or rhonchi. No use of accessory muscles. Patient maintaining oxygen saturation greater than 92%. No chest wall tenderness is noted on palpation or with deep breathing. CARDIOVASCULAR: Regular rate and rhythm. S1 and S2 noted. No systolic or diastolic murmur auscultated. No JVD noted. No S3 or S4 noted. GASTROINTESTINAL: Dialysis catheter noted. Mild abdominal distention noted. Bowel sounds auscultated x 4 quadrants. Pain and tenderness noted upon palpation. INTEGUMENTARY: No cyanosis. No jaundice. No rashes noted. No cellulitis noted. EXTREMITIES: Left BKA noted. Partial right foot amputation. NEUROLOGIC: Cranial nerves II-XII intact. PSYCHIATRIC: Awake, alert, and oriented X 3. Appropriate affect. Intact judgement and insight. Results CBC & Chem 7: 10/27/17 06:51 10/27/17 06:51 Labs: Abnormal Lab Results - Last 24 Hours (Table) 10/25/17 10/25/17 10/25/17 Range/Units 21:40 21:40 21:40 Hgb 11.6 L (13.0-17.5) gm/dL Hct 36.4 L (39.0-53.0) % RDW 15.8 H (11.5-15.5) % Neutrophils # 8.2 H (1.3-7.7) k/uL Lymphocytes # 0.7 L (1.0-4.8) k/uL Sodium 134 L (137-145) mmol/L Potassium 3.0 L* (3.5-5.1) mmol/L Chloride 93 L (98-107) mmol/L Carbon Dioxide (22-30) mmol/L BUN 37 H (9-20) mg/dL Creatinine 9.50 H* (0.66-1.25) mg/dL Glucose (74-99) mg/dL POC Glucose (mg/dL) (75-99) mg/dL Plasma Lactic Acid Massimo (0.7-2.0) mmol/L Calcium 8.1 L (8.4-10.2) mg/dL ALT 20 L (21-72) U/L Alkaline Phosphatase 137 H (38-126) U/L CK-MB (CK-2) 5.4 H* (0.0-2.4) ng/mL Total Protein (6.3-8.2) g/dL Albumin 2.7 L (3.5-5.0) g/dL HDL Cholesterol (40-60) mg/dL Amylase <30 L (30-110) U/L Lipase 12 L (23-300) U/L 10/25/17 10/25/17 10/26/17 Range/Units 21:40 21:40 03:20 Hgb (13.0-17.5) gm/dL Hct (39.0-53.0) % RDW (11.5-15.5) % Neutrophils # (1.3-7.7) k/uL Lymphocytes # (1.0-4.8) k/uL Sodium (137-145) mmol/L Potassium (3.5-5.1) mmol/L Chloride (98-107) mmol/L Carbon Dioxide (22-30) mmol/L BUN (9-20) mg/dL Creatinine (0.66-1.25) mg/dL Glucose (74-99) mg/dL POC Glucose (mg/dL) (75-99) mg/dL Plasma Lactic Acid Massimo 0.6 L (0.7-2.0) mmol/L Calcium (8.4-10.2) mg/dL ALT (21-72) U/L Alkaline Phosphatase (38-126) U/L CK-MB (CK-2) 5.5 H* (0.0-2.4) ng/mL Total Protein (6.3-8.2) g/dL Albumin (3.5-5.0) g/dL HDL Cholesterol 36 L (40-60) mg/dL Amylase (30-110) U/L Lipase (23-300) U/L 10/26/17 10/26/17 10/26/17 Range/Units 09:25 09:25 11:38 Hgb (13.0-17.5) gm/dL Hct (39.0-53.0) % RDW (11.5-15.5) % Neutrophils # (1.3-7.7) k/uL Lymphocytes # (1.0-4.8) k/uL Sodium 135 L (137-145) mmol/L Potassium 3.3 L (3.5-5.1) mmol/L Chloride 97 L (98-107) mmol/L Carbon Dioxide 20 L (22-30) mmol/L BUN 40 H (9-20) mg/dL Creatinine 9.65 H* (0.66-1.25) mg/dL Glucose 112 H (74-99) mg/dL POC Glucose (mg/dL) 134 H (75-99) mg/dL Plasma Lactic Acid Massimo (0.7-2.0) mmol/L Calcium 7.6 L (8.4-10.2) mg/dL ALT (21-72) U/L Alkaline Phosphatase 196 H (38-126) U/L CK-MB (CK-2) 6.3 H* (0.0-2.4) ng/mL Total Protein 5.9 L (6.3-8.2) g/dL Albumin 2.4 L (3.5-5.0) g/dL HDL Cholesterol (40-60) mg/dL Amylase (30-110) U/L Lipase (23-300) U/L Assessment and Plan Plan: ASSESSMENT: Abdominal pain x 2 days, present on admission, due to inability to drain dialysate related to fibrin around the catheter. Peritonitis unlikely per nephrology Chronic kidney disease, end stage, GFR 6, currently on peritoneal dialysis Hypertension History of diabetic gastroparesis Diabetes mellitus, type II, hemoglobin A1c pending Diabetic ulcer to right plantar foot and right lateral leg, s/p surgical debridement on 10/12/[address] Sy Recent hospitalization, July 2017, for N/V, patient signed out AMA Previous hospitalization in 2017 for peritonitis, PD catheter was removed and patient was transitioned to hemodialysis Peripheral vascular disease with history of left BKA and right partial foot amputation History of seizures Coronary artery disease with previous myocardial infarction History of MRSA infection in left lower extremity PLAN: Nephrology on consult. Appreciate recommendations and input Dr. Sy, infectious disease, on consult. Appreciate recommendations and input Antibiotic regimen per ID: currently on Unasyn Await results of blood cultures and urine culture Home meds as appropriate Novolog sliding scale AC/HS and Levemir 10 units at HS Monitor labs GI prophylaxis: Pepcid 20mg PO BID Monitor vital signs and address as appropriate Further recommendations pending patient's course Nurse practitioner note has been reviewed by physician. Signing provider agrees with the documented findings, assessment, and plan of care.
--- NOTE | 2017-10-27 10:40 | P.PN ---
Subjective Progress Note Date: 10/27/17 46-year-old male who presented to the emergency room with a chief complaint of abdominal pain that has persisted over the last two days. Patient states he has been having difficulty getting his PD catheter to drain and has not been able to properly complete a PD exchange in two days. He reports abdominal distention and bloating. Reports generalized abdominal pain. He denies nausea or vomiting. Denies chest pain or pressure. Denies shortness of breath. The patient has a history of end stage renal disease, coronary artery disease, diabetes, DVT, GERD, hypertension, hyperlipidemia, [place], PVD with a left below the knee amputation. 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 The patient was hospitalized in 2016 for peritonitis. His PD catheter was removed and the patient was placed on hemodialysis. The patient was also hospitalized in July 2017 for nausea and vomiting. He left AMA during that admission. Dr. Adorno replaced his PD catheter in July 2017. Acute abdomen series: Pleural reaction at the left lung base. Nonacute abdomen. Laboratory data: WBC 9.8. Hemoglobin 11.6. Platelet count 444. Sodium 134. Potassium 3.0. BUN 37. Creatinine 9.5. Lactic acid: 0.6 AST 22. ALT 20. Alkaline phosphatase 137. The patients BP upon admission was 174/94. He was febrile with a temperature of 100.0 Heart rate 96. RR 20. The patient was admitted to the hospital under the care of Dr. Hough. 10/27/2017 Patient evaluated at the bedside. Patient states he is feeling nausea this morning and continues to have generalized abdominal pain. Patient underwent shuntogram by interventional radiology which revealed significant fibrin sheath around the catheter. Patient reports they were able to infuse about half of the dialysate yesterday but when nursing attempted to drain there was no outflow. Patient states he is going to have hemodialysis today. Patient still has permacath to right chest wall. Patient reports Dr. Adorno is going to evaluate the catheter tomorrow and possibly exchange it. magnesium this morning is 1.5 and is being replaced. Patient is afebrile. Vital signs remain stable. Patient states Dr. Sy debrided his right foot wound at the bedside yesterday. Objective - Vital Signs Vital signs: Vital Signs Temp 97.1 F L 10/27/17 02:07 Pulse 85 10/27/17 02:07 Resp 16 10/27/17 02:07 BP 151/90 10/27/17 02:07 Pulse Ox 95 10/27/17 02:07 Intake & Output 10/26/17 10/27/17 10/27/17 18:59 06:59 18:59 Intake Total 550 Balance 550 Intake: IV 430 Sodium Chloride 0.9% 1, 380 000 ml @ 50 mls/hr IV . Q20H [facility] Rx#:[id number] Oral 120 - Exam GENERAL: This is a 46-year-old male in no apparent distress at the time of examination. Pleasant and cooperative. HEENT: Head is atraumatic, normocephalic. Pupils are equal, round, and reactive to light. Sclerae anicteric. Conjunctivae are clear. Mucus membranes of the mouth are moist. Neck is supple. RESPIRATORY: Clear to ausculation. No wheezes, rales, or rhonchi. No use of accessory muscles. Patient maintaining oxygen saturation greater than 92%. No chest wall tenderness is noted on palpation or with deep breathing. CARDIOVASCULAR: Permacath noted to right chest wall. Regular rate and rhythm. S1 and S2 noted. No systolic or diastolic murmur auscultated. No JVD noted. No S3 or S4 noted. GASTROINTESTINAL: Dialysis catheter noted. Mild abdominal distention noted. Bowel sounds auscultated x 4 quadrants. Pain and tenderness noted upon palpation. INTEGUMENTARY: No cyanosis. No jaundice. No rashes noted. No cellulitis noted. EXTREMITIES: Left BKA noted. Partial right foot amputation with chronic wound noted. NEUROLOGIC: Cranial nerves II-XII intact. PSYCHIATRIC: Awake, alert, and oriented X 3. Appropriate affect. Intact judgement and insight. - Labs CBC & Chem 7: 10/27/17 06:51 10/27/17 06:51 Labs: Abnormal Lab Results - Last 24 Hours (Table) 10/26/17 10/26/17 10/26/17 Range/Units 09:25 09:25 11:38 RBC (4.30-5.90) m/uL Hgb (13.0-17.5) gm/dL Hct (39.0-53.0) % Lymphocytes # (1.0-4.8) k/uL Sodium (137-145) mmol/L Carbon Dioxide (22-30) mmol/L BUN (9-20) mg/dL Creatinine (0.66-1.25) mg/dL POC Glucose (mg/dL) 134 H (75-99) mg/dL Hemoglobin A1c 6.8 H (4.0-6.0) % Calcium (8.4-10.2) mg/dL Phosphorus (2.5-4.5) mg/dL Magnesium (1.6-2.3) mg/dL Alkaline Phosphatase (38-126) U/L CK-MB (CK-2) 6.3 H* (0.0-2.4) ng/mL Total Protein (6.3-8.2) g/dL Albumin (3.5-5.0) g/dL 10/26/17 10/26/17 10/27/17 Range/Units 17:53 20:29 06:51 RBC 3.68 L (4.30-5.90) m/uL Hgb 10.1 L (13.0-17.5) gm/dL Hct 32.3 L (39.0-53.0) % Lymphocytes # 0.5 L (1.0-4.8) k/uL Sodium (137-145) mmol/L Carbon Dioxide (22-30) mmol/L BUN (9-20) mg/dL Creatinine (0.66-1.25) mg/dL POC Glucose (mg/dL) 112 H 110 H (75-99) mg/dL Hemoglobin A1c (4.0-6.0) % Calcium (8.4-10.2) mg/dL Phosphorus (2.5-4.5) mg/dL Magnesium (1.6-2.3) mg/dL Alkaline Phosphatase (38-126) U/L CK-MB (CK-2) (0.0-2.4) ng/mL Total Protein (6.3-8.2) g/dL Albumin (3.5-5.0) g/dL 10/27/17 Range/Units 06:51 RBC (4.30-5.90) m/uL Hgb (13.0-17.5) gm/dL Hct (39.0-53.0) % Lymphocytes # (1.0-4.8) k/uL Sodium 134 L (137-145) mmol/L Carbon Dioxide 17 L (22-30) mmol/L BUN 42 H (9-20) mg/dL Creatinine 10.01 H* (0.66-1.25) mg/dL POC Glucose (mg/dL) (75-99) mg/dL Hemoglobin A1c (4.0-6.0) % Calcium 7.5 L (8.4-10.2) mg/dL Phosphorus 7.8 H (2.5-4.5) mg/dL Magnesium 1.5 L (1.6-2.3) mg/dL Alkaline Phosphatase 190 H (38-126) U/L CK-MB (CK-2) (0.0-2.4) ng/mL Total Protein 5.1 L (6.3-8.2) g/dL Albumin 2.1 L (3.5-5.0) g/dL Assessment and Plan Plan: ASSESSMENT: Abdominal pain x 2 days, present on admission, due to inability to drain dialysate related to fibrin around the catheter. Peritonitis unlikely per nephrology Chronic kidney disease, end stage, GFR 6, currently on peritoneal dialysis Hypertension History of diabetic gastroparesis Diabetes mellitus, type II, hemoglobin A1c 6.8% Diabetic ulcer to right plantar foot and right lateral leg, s/p surgical debridement on 10/12/[address] Sy and again on 10/26/2017 per patient Recent hospitalization, July 2017, for N/V, patient signed out AMA Previous hospitalization in 2017 for peritonitis, PD catheter was removed and patient was transitioned to hemodialysis Peripheral vascular disease with history of left BKA and right partial foot amputation History of seizures Coronary artery disease with previous myocardial infarction History of MRSA infection in left lower extremity PLAN: Nephrology on consult. Appreciate recommendations and input Patient to receive hemodialysis today and undergo evaluation of PD catheter tomorrow by Dr. Tila Sy, infectious disease, on consult. Appreciate recommendations and input Antibiotic regimen per ID: currently on Unasyn Await results of blood cultures and urine culture Home meds as appropriate Novolog sliding scale AC/HS and Levemir 10 units at HS Monitor labs GI prophylaxis: Pepcid 20mg PO BID Monitor vital signs and address as appropriate Further recommendations pending patient's course Due to patients left BKA and partial amputation of right foot along with multiple comorbidities, patient requires a wheelchair for assistance with mobility. Script signed for wheelchair. Nurse practitioner note has been reviewed by physician. Signing provider agrees with the documented findings, assessment, and plan of care.
[2017-10-27] MEDS ORDERED: POTASSIUM CHLORIDE ER 20 MEQ TAB.ER PO STA (10:50)
--- NOTE | 2017-10-27 10:50 | P.PN ---
Subjective Patient is seen in follow-up for end-stage renal disease. He was maintained on peritoneal dialysis. However he's been having difficulty with draining. The PD catheter was noted to be patent. However he does have a fibrin sheath around the catheter. He is currently resting in bed. Feels bloated. Does have intermittent nausea. Denies vomiting or diarrhea. Denies chest pain or shortness of breath. Vital signs are stable. General: The patient appeared well nourished and normally developed. HEENT: Head exam is unremarkable. Neck is without jugular venous distension. LUNGS: Lungs are clear to auscultation and percussion. Breath sounds decreased. HEART: Rate and Rhythm are regular. First and second heart sounds normal. No murmurs, rubs or gallops. ABDOMEN: Abdominal exam reveals normal bowel sounds. Non-tender and non- distended. No evidence of peritonitis. EXTREMITITES: No clubbing, cyanosis, or edema. [id number] amputation noted. Objective - Vital Signs Vital signs: Vital Signs Temp 97.0 F L 10/27/17 07:54 Pulse 76 10/27/17 07:54 Resp 14 10/27/17 07:54 BP 124/78 10/27/17 07:54 Pulse Ox 92 L 10/27/17 07:54 Intake & Output 10/26/17 10/27/17 10/27/17 18:59 06:59 18:59 Intake Total 550 Balance 550 Intake: IV 430 Sodium Chloride 0.9% 1, 380 000 ml @ 50 mls/hr IV . Q20H [facility] Rx#:[id number] Oral 120 - Labs CBC & Chem 7: 10/27/17 06:51 10/27/17 06:51 Labs: Abnormal Lab Results - Last 24 Hours (Table) 10/26/17 10/26/17 10/26/17 Range/Units 09:25 11:38 17:53 RBC (4.30-5.90) m/uL Hgb (13.0-17.5) gm/dL Hct (39.0-53.0) % Lymphocytes # (1.0-4.8) k/uL Sodium (137-145) mmol/L Carbon Dioxide (22-30) mmol/L BUN (9-20) mg/dL Creatinine (0.66-1.25) mg/dL POC Glucose (mg/dL) 134 H 112 H (75-99) mg/dL Hemoglobin A1c 6.8 H (4.0-6.0) % Calcium (8.4-10.2) mg/dL Phosphorus (2.5-4.5) mg/dL Magnesium (1.6-2.3) mg/dL Alkaline Phosphatase (38-126) U/L Total Protein (6.3-8.2) g/dL Albumin (3.5-5.0) g/dL 10/26/17 10/27/17 10/27/17 Range/Units 20:29 06:51 06:51 RBC 3.68 L (4.30-5.90) m/uL Hgb 10.1 L (13.0-17.5) gm/dL Hct 32.3 L (39.0-53.0) % Lymphocytes # 0.5 L (1.0-4.8) k/uL Sodium 134 L (137-145) mmol/L Carbon Dioxide 17 L (22-30) mmol/L BUN 42 H (9-20) mg/dL Creatinine 10.01 H* (0.66-1.25) mg/dL POC Glucose (mg/dL) 110 H (75-99) mg/dL Hemoglobin A1c (4.0-6.0) % Calcium 7.5 L (8.4-10.2) mg/dL Phosphorus 7.8 H (2.5-4.5) mg/dL Magnesium 1.5 L (1.6-2.3) mg/dL Alkaline Phosphatase 190 H (38-126) U/L Total Protein 5.1 L (6.3-8.2) g/dL Albumin 2.1 L (3.5-5.0) g/dL Assessment and Plan Plan: Assessment: #1. End-stage renal disease maintained on peritoneal dialysis. #2. Abdominal pain due to inability to drain dialysate related to fibrin around the catheter. Although his white cell count was 45 the PMN count was 65 % which is suggestive of peritonitis. #3. Hypokalemia related to diuretics and hypomagnesemia. #4. Hypertension with chronic kidney disease. Controlled. #5. Chronic kidney disease mineral bone disease maintained on PhosLo and Renvela. #6. Insulin-dependent diabetes mellitus. #7. Metabolic acidosis secondary to chronic kidney disease. Plan: Status post IV vancomycin on October 26. IV Fortaz was also started on October 26 - to be continued daily for now. Hemodialysis treatment today with goal 3 L ultrafiltration. Gen. surgery following - potential laparoscopic evaluation tomorrow. Replace magnesium. 2 g IV today. Replace potassium. 40 mEq today. Follow-up cultures. Hold off on PD today due to inability to drain. Add oral sodium bicarbonate.
[2017-10-27] MEDS: MAGNESIUM SULFATE-D5W PMX 1 GM in DEXTROSE/WATER 1 100ML.BAG IVPB SCH ×2 (10:57→13:19)
[2017-10-27] MEDS: amLODIPine 10 MG TAB PO SCH (10:59)
[2017-10-27] MEDS: AMIODARONE 200 MG TAB PO SCH (10:59)
[2017-10-27] MEDS: acetaZOLAMIDE 250 MG TAB PO SCH ×2 (10:59→20:52)
[2017-10-27] MEDS: RENA VITE PO SCH (11:00)
[2017-10-27] MEDS: THIAMINE 100 MG TAB PO SCH (11:00)
[2017-10-27] MEDS: LEVOTHYROXINE 25 MCG TAB PO SCH (11:01)
--- NOTE | 2017-10-27 11:29 | P.PN ---
Subjective Progress Note Date: 10/27/17 Principal diagnosis: Malfunctioning peritoneal dialysis catheter Patient was unable to have significant output despite the intervention by radiology yesterday. He is having hemodialysis through his permacath today. Denies any significant change in pain. Objective - Vital Signs Vital signs: Vital Signs Temp 97.0 F L 10/27/17 07:54 Pulse 76 10/27/17 07:54 Resp 14 10/27/17 07:54 BP 124/78 10/27/17 07:54 Pulse Ox 92 L 10/27/17 07:54 Intake & Output 10/26/17 10/27/17 10/27/17 18:59 06:59 18:59 Intake Total 550 Balance 550 Intake: IV 430 Sodium Chloride 0.9% 1, 380 000 ml @ 50 mls/hr IV . Q20H [facility] Rx#:[id number] Oral 120 - Exam Abdomen: Soft, mild distention, mild diffuse tenderness - Labs CBC & Chem 7: 10/27/17 06:51 10/27/17 06:51 Labs: Abnormal Lab Results - Last 24 Hours (Table) 10/26/17 10/26/17 10/26/17 Range/Units 09:25 11:38 17:53 RBC (4.30-5.90) m/uL Hgb (13.0-17.5) gm/dL Hct (39.0-53.0) % Lymphocytes # (1.0-4.8) k/uL Sodium (137-145) mmol/L Carbon Dioxide (22-30) mmol/L BUN (9-20) mg/dL Creatinine (0.66-1.25) mg/dL POC Glucose (mg/dL) 134 H 112 H (75-99) mg/dL Hemoglobin A1c 6.8 H (4.0-6.0) % Calcium (8.4-10.2) mg/dL Phosphorus (2.5-4.5) mg/dL Magnesium (1.6-2.3) mg/dL Alkaline Phosphatase (38-126) U/L Total Protein (6.3-8.2) g/dL Albumin (3.5-5.0) g/dL 10/26/17 10/27/17 10/27/17 Range/Units 20:29 06:51 06:51 RBC 3.68 L (4.30-5.90) m/uL Hgb 10.1 L (13.0-17.5) gm/dL Hct 32.3 L (39.0-53.0) % Lymphocytes # 0.5 L (1.0-4.8) k/uL Sodium 134 L (137-145) mmol/L Carbon Dioxide 17 L (22-30) mmol/L BUN 42 H (9-20) mg/dL Creatinine 10.01 H* (0.66-1.25) mg/dL POC Glucose (mg/dL) 110 H (75-99) mg/dL Hemoglobin A1c (4.0-6.0) % Calcium 7.5 L (8.4-10.2) mg/dL Phosphorus 7.8 H (2.5-4.5) mg/dL Magnesium 1.5 L (1.6-2.3) mg/dL Alkaline Phosphatase 190 H (38-126) U/L Total Protein 5.1 L (6.3-8.2) g/dL Albumin 2.1 L (3.5-5.0) g/dL Assessment and Plan (1) Peritoneal dialysis catheter in situ Narrative/Plan: Agree with plans for hemodialysis today. We'll schedule for peritoneal catheter revision laparoscopically tomorrow. Current Visit: No Status: Chronic Code(s): Z99.2 - DEPENDENCE ON RENAL DIALYSIS SNOMED Code(s): 552592214
[2017-10-27 12:00] LABS: Glucose,Whole Blood 109 mg/dL (75-99)
[2017-10-27] MEDS ORDERED: HEPARIN SODIUM (1,000 UNIT/ML) 1,250 UNIT in DIALYSIS (PERITONL) DEX 1.5% 2,000 ML INTRAPERIT SCH (12:00)
[2017-10-27] MEDS: FOLIC ACID-VIT B COMPLEX-VIT C 1 CAP PO SCH (16:50)
[2017-10-27] MEDS: SODIUM BICARBONATE TAB 650 MG TAB PO SCH ×2 (16:50→20:54)
[2017-10-27 17:25] LABS: Glucose,Whole Blood 100 mg/dL (75-99)
[2017-10-27] MEDS: TAMSULOSIN 0.4 MG CAP.ER.24H PO SCH (18:40)
[2017-10-27] MEDS ORDERED: cefTAZidime 1.25 GM in DIALYSIS (PERITONL) DEX 1.5% 2,000 ML INTRAPERIT SCH (20:00)
[2017-10-27 20:04] LABS: Glucose,Whole Blood 84 mg/dL (75-99)
[2017-10-27] MEDS: METOCLOPRAMIDE 5 MG/ML 2 ML VIAL IVP PRN (20:28)
[2017-10-27] MEDS: INSULIN DETEMIR 100 UNIT/ML 10 ML VIAL SQ SCH (20:53)
[2017-10-27] MEDS: ATORVASTATIN 80 MG TAB PO SCH (20:53)
[2017-10-27] MEDS ORDERED: HYDROmorphone 0.5 MG/0.5 ML SYRINGE IVP PRN (22:46)
[2017-10-27] MEDS ORDERED: ONDANSETRON 4 MG/2 ML VIAL IVP PRN (22:46)
[2017-10-27] MEDS ORDERED: MORPHINE SULFATE 4 MG/ML SYRINGE IV PRN (22:46)
--- NOTE | 2017-10-28 00:58 | P.PN ---
Subjective Progress Note Date: 10/27/17 Principal diagnosis: Abdominal pain 46-year-old male who has diabetes as well as type II with many Occasions that includes end-stage renal disease on peritoneal dialysis. Earlier this year as noted had difficulties with his infection of the peritoneal dialysis catheter this was removed and he has been on hemodialysis. He had complete healing of the abdominal infection headache. To note catheter dialysis replaced was doing well on his CAPD. However now comes to hospital with lack of drainage of his catheter increasing abdominal discomfort and just not feeling very well. Temperature maximum is been 100 and is not his significant chills. Today he is feeling a little more poorly and that with antibiotic therapies without significant nausea and emesis somewhat her is what he had last time. He is not having diarrhea. Objective - Vital Signs Vital signs: Vital Signs Temp 97.8 F 10/27/17 20:32 Pulse 85 10/27/17 20:32 Resp 18 10/27/17 20:32 BP 126/83 10/27/17 20:32 Pulse Ox 94 L 10/27/17 20:45 Intake & Output 10/27/17 10/27/17 10/28/17 06:59 18:59 06:59 Intake Total 80 Balance 80 Intake: IV 80 Sodium Chloride 0.9% 1, 80 000 ml @ 10 mls/hr IV . Q24H [facility] Rx#:[id number] Other: Voiding Method Toilet # Voids 1 - Exam 46-year-old male not feeling well tonight because of nausea HEENT: Anicteric conjunctiva are pink and moist nasal mucosa grossly intact without significant lesions, there is no thrush. Neck: The neck is supple without significant lymphadenopathy or thyromegaly. Lungs: Good bilateral air entry without significant crackles or wheezing. There is no significant bronchial sounds. There is no egophony or dullness. Heart: Regular rate and rhythm with an audible S1-S2, no S3 no S4. There is no significant murmur click or rub, PMI was nondisplaced. Abdomen: Positive bowel sounds soft and nontender without palpable masses or organomegaly. Still has evidence of distention to the abdomen Extremities: The upper extremities have excellent pulses they are symmetric, no significant petechiae or telangiectasia. No splinter hemorrhages were noted. Left lower extremity without difficulty at the residual limb. Ulceration to the right foot plantar is at 0.3 0.3 0.1 Neuro: Awake alert oriented to person place and time. There are no acute new gross focal sensory motor deficits. - Labs CBC & Chem 7: 10/27/17 06:51 10/27/17 06:51 Labs: Abnormal Lab Results - Last 24 Hours (Table) 10/26/17 10/27/17 10/27/17 Range/Units 09:25 06:51 06:51 RBC 3.68 L (4.30-5.90) m/uL Hgb 10.1 L (13.0-17.5) gm/dL Hct 32.3 L (39.0-53.0) % Lymphocytes # 0.5 L (1.0-4.8) k/uL Sodium 134 L (137-145) mmol/L Carbon Dioxide 17 L (22-30) mmol/L BUN 42 H (9-20) mg/dL Creatinine 10.01 H* (0.66-1.25) mg/dL POC Glucose (mg/dL) (75-99) mg/dL Hemoglobin A1c 6.8 H (4.0-6.0) % Calcium 7.5 L (8.4-10.2) mg/dL Phosphorus 7.8 H (2.5-4.5) mg/dL Magnesium 1.5 L (1.6-2.3) mg/dL Alkaline Phosphatase 190 H (38-126) U/L Total Protein 5.1 L (6.3-8.2) g/dL Albumin 2.1 L (3.5-5.0) g/dL 10/27/17 10/27/17 Range/Units 11:58 17:23 RBC (4.30-5.90) m/uL Hgb (13.0-17.5) gm/dL Hct (39.0-53.0) % Lymphocytes # (1.0-4.8) k/uL Sodium (137-145) mmol/L Carbon Dioxide (22-30) mmol/L BUN (9-20) mg/dL Creatinine (0.66-1.25) mg/dL POC Glucose (mg/dL) 109 H 100 H (75-99) mg/dL Hemoglobin A1c (4.0-6.0) % Calcium (8.4-10.2) mg/dL Phosphorus (2.5-4.5) mg/dL Magnesium (1.6-2.3) mg/dL Alkaline Phosphatase (38-126) U/L Total Protein (6.3-8.2) g/dL Albumin (3.5-5.0) g/dL Microbiology - Last 24 Hours (Table) 10/26/17 20:48 Gram Stain - Preliminary Peritoneal Fluid Body Fluid Culture - Preliminary 10/26/17 10:33 Blood Culture - Preliminary Blood No Growth after 24 hours Laboratory Results WBC 8.1 k/uL (3.8-10.6) 10/27/17 06:51 RBC 3.68 m/uL (4.30-5.90) L 10/27/17 06:51 Hgb 10.1 gm/dL (13.0-17.5) L 10/27/17 06:51 Hct 32.3 % (39.0-53.0) L 10/27/17 06:51 MCV 87.6 fL (80.0-100.0) 10/27/17 06:51 MCH 27.4 pg (25.0-35.0) 10/27/17 06:51 MCHC 31.2 g/dL (31.0-37.0) 10/27/17 06:51 RDW 15.3 % (11.5-15.5) 10/27/17 06:51 Plt Count 356 k/uL (150-450) 10/27/17 06:51 Neutrophils % 83 % 10/27/17 06:51 Lymphocytes % 6 % 10/27/17 06:51 Monocytes % 7 % 10/27/17 06:51 Eosinophils % 1 % 10/27/17 06:51 Basophils % 0 % 10/27/17 06:51 Neutrophils # 6.8 k/uL (1.3-7.7) 10/27/17 06:51 Lymphocytes # 0.5 k/uL (1.0-4.8) L 10/27/17 06:51 Monocytes # 0.6 k/uL (0-1.0) 10/27/17 06:51 Eosinophils # 0.1 k/uL (0-0.7) 10/27/17 06:51 Basophils # 0.0 k/uL (0-0.2) 10/27/17 06:51 Hypochromasia Marked 10/27/17 06:51 Poikilocytosis Slight 10/27/17 06:51 PT 10.4 sec (9.0-12.0) 10/25/17 21:40 INR 1.1 (<1.2) 10/25/17 21:40 APTT 27.2 sec (22.0-30.0) 10/25/17 21:40 Sodium 134 mmol/L (137-145) L 10/27/17 06:51 Potassium 3.5 mmol/L (3.5-5.1) 10/27/17 06:51 Chloride 99 mmol/L (98-107) 10/27/17 06:51 Carbon Dioxide 17 mmol/L (22-30) L 10/27/17 06:51 Anion Gap 18 mmol/L 10/27/17 06:51 BUN 42 mg/dL (9-20) H 10/27/17 06:51 Creatinine 10.01 mg/dL (0.66-1.25) H* 10/27/17 06:51 Est GFR (CKD-EPI)AfAm 6 (>60 ml/min/1.73 sqM) 10/27/17 06:51 Est GFR (CKD-EPI)NonAf 6 (>60 ml/min/1.73 sqM) 10/27/17 06:51 Glucose 97 mg/dL (74-99) 10/27/17 06:51 POC Glucose (mg/dL) 84 mg/dL (75-99) 10/27/17 19:56 POC Glu Manager Psychiatry Jerri Mckay 10/27/17 19:[address] Glu mg/dL 148 10/26/17 09:25 Hemoglobin A1c 6.8 % (4.0-6.0) H 10/26/17 09:25 Plasma Lactic Acid Massimo 0.6 mmol/L (0.7-2.0) L 10/25/17 21:40 Calcium 7.5 mg/dL (8.4-10.2) L 10/27/17 06:51 Phosphorus 7.8 mg/dL (2.5-4.5) H 10/27/17 06:51 Magnesium 1.5 mg/dL (1.6-2.3) L 10/27/17 06:51 Total Bilirubin 0.3 mg/dL (0.2-1.3) 10/27/17 06:51 AST 22 U/L (17-59) 10/27/17 06:51 ALT 23 U/L (21-72) 10/27/17 06:51 Alkaline Phosphatase 190 U/L (38-126) H 10/27/17 06:51 Total Creatine Kinase 137 U/L (55-170) 10/26/17 09:25 CK-MB (CK-2) 6.3 ng/mL (0.0-2.4) H* 10/26/17 09:25 CK-MB (CK-2) Rel Index 4.6 10/26/17 09:25 Troponin I <0.012 ng/mL (0.000-0.034) 10/26/17 09:25 Total Protein 5.1 g/dL (6.3-8.2) L 10/27/17 06:51 Albumin 2.1 g/dL (3.5-5.0) L 10/27/17 06:51 Triglycerides 122 mg/dL (<150) 10/25/17 21:40 Cholesterol 131 mg/dL (<200) 10/25/17 21:40 LDL Cholesterol, Calc 71 mg/dL (0-99) 10/25/17 21:40 HDL Cholesterol 36 mg/dL (40-60) L 10/25/17 21:40 Amylase <30 U/L (30-110) L 10/25/17 21:40 Lipase 12 U/L (23-300) L 10/25/17 21:40 Fluid Source Dialysate 10/26/17 20:48 Fluid Color Colorless 10/26/17 20:48 Fluid Appearance Hazy 10/26/17 20:48 Fluid RBC 450 /uL 10/26/17 20:48 Fluid Nucleated Cells 45 /uL 10/26/17 20:48 Fluid Polynuclear WBCs 65 % 10/26/17 20:48 Fluid Mononuclear WBCs 35 % 10/26/17 20:48 C. difficile (EIA) Intrp Negative (Negative) 10/26/17 07:50 Microbiology 10/26/17 20:48 Peritoneal Fluid Gram Stain - Preliminary 10/26/17 20:48 Peritoneal Fluid Body Fluid Culture - Preliminary 10/26/17 10:33 Blood Blood Culture - Preliminary No Growth after 24 hours Assessment and Plan (1) Abdominal pain Narrative/Plan: 46-year-old male lungs sitting history diabetes mellitus type 2 with end state renal disease receiving CAPD. As noted does have a history of peritonitis requiring removal of the CAPD catheter and transition to hemodialysis. He has had complete resolution of the infection and the CAPD catheter was replaced. He now has had difficulties in that the fluid for dialysis was placed without any significant drainage. But evidence of an extensive fibrin sheath around the catheter. He is being followed by nephrology and received hemodialysis today, he has significant uremia which is likely in conjunction with the antibiotics is causing his significant nausea is he's had before. Hopefully as he has further dialysis uremia improves his current nausea will improve. The patient did have some fluid withdrawn from the peritoneal cavity cell count was only 45 the fluid was clear and colorless. His T-max is been 100 with no ongoing fevers and consequently it is unlikely that he has peritonitis. He has already been dosed with vancomycin, will discontinue ceftaz intensity appears to be causing him significant nausea and abdominal discomfort. Blood cultures are negative. He will be monitored Current Visit: No Status: Acute Code(s): R10.9 - UNSPECIFIED ABDOMINAL PAIN SNOMED Code(s): 35365339 (2) End stage renal disease on dialysis Current Visit: Yes Status: Chronic Code(s): N18.6 - END STAGE RENAL DISEASE SNOMED Code(s): 832960415 (3) Hemodialysis catheter malfunction Current Visit: Yes Status: Acute Code(s): T82.41XA - BREAKDOWN (MECHANICAL) OF VASCULAR DIALYSIS CATHETER, INIT SNOMED Code(s): 62946444
[2017-10-28] MEDS: AMIODARONE 200 MG TAB PO SCH ×3 (01:57→22:36)
[2017-10-28] MEDS: SODIUM CHLORIDE 0.9% 1,000 ML IV SCH (01:57)
[2017-10-28] MEDS: levETIRAcetam 250 MG TAB PO SCH ×3 (01:57→22:37)
[2017-10-28] MEDS: LACTATED RINGERS 1,000 ML IV SCH ×3 (01:57→15:46)
[2017-10-28] MEDS: GABAPENTIN 300 MG CAP PO SCH ×3 (01:57→22:37)
[2017-10-28] MEDS: METOCLOPRAMIDE 5 MG/ML 2 ML VIAL IVP PRN ×3 (02:09→22:41)
[2017-10-28] MEDS: LEVOTHYROXINE 25 MCG TAB PO SCH (06:07)
[2017-10-28 07:12] LABS: Basophils % (A) 0 %; Eosinophils # (A) 0.1 k/uL (0-0.7); Eosinophils % (A) 1 %; HCT 31.8 % (39.0-53.0); HGB 9.8 gm/dL (13.0-17.5); Hypochromasia Moderate; Lymphocytes # (A) 0.7 k/uL (1.0-4.8); Lymphocytes % (A) 10 %; MCH 26.5 pg (25.0-35.0); MCHC 30.8 g/dL (31.0-37.0); Mean Platelet Volume 6.8; Monocytes # (A) 0.6 k/uL (0-1.0); Monocytes % (A) 9 %; Neutrophils # (A) 5.5 k/uL (1.3-7.7); Neutrophils % (A) 78 %; Platelet Count 398 k/uL (150-450); Poikilocytosis Slight; RBC 3.69 m/uL (4.30-5.90); RDW 15.6 % (11.5-15.5); WBC 7.1 k/uL (3.8-10.6)
[2017-10-28 07:23] LABS: Albumin 2.2 g/dL (3.5-5.0); Calcium 7.7 mg/dL (8.4-10.2); Potassium 3.5 mmol/L (3.5-5.1); Total Bilirubin 0.3 mg/dL (0.2-1.3); Total Protein 5.2 g/dL (6.3-8.2)
[2017-10-28 07:44] LABS: Glucose,Whole Blood 82 mg/dL (75-99)
[2017-10-28] MEDS: INSULIN ASPART 100 UNIT/ML 1 ML 10 ML VIAL SQ SCH ×4 (09:26→22:37)
[2017-10-28] MEDS: acetaZOLAMIDE 250 MG TAB PO SCH ×2 (10:00→22:36)
[2017-10-28] MEDS: CALCIUM ACETATE 667 MG CAP PO SCH ×3 (10:00→18:08)
[2017-10-28] MEDS: SEVELAMER 800 MG TAB PO SCH ×4 (10:01→22:38)
[2017-10-28] MEDS: SODIUM BICARBONATE TAB 650 MG TAB PO SCH ×2 (10:01→22:38)
[2017-10-28] MEDS: FAMOTIDINE 20 MG TAB PO SCH (10:01)
[2017-10-28] MEDS: THIAMINE 100 MG TAB PO SCH (10:01)
[2017-10-28] MEDS: amLODIPine 10 MG TAB PO SCH (10:01)
[2017-10-28] MEDS: AMMONIUM LACTATE 12% LOTION 225 GM BTL TOPICAL SCH ×2 (10:06→22:37)
[2017-10-28] MEDS ORDERED: POTASSIUM CHLORIDE ER 20 MEQ TAB.ER PO STA (10:53)
--- NOTE | 2017-10-28 10:54 | P.PN ---
Subjective Patient is seen in follow-up for end-stage renal disease. He was maintained on peritoneal dialysis. However he's been having difficulty with draining. The PD catheter was noted to be patent. However he does have a fibrin sheath around the catheter. He is currently resting in bed. Feels better after hemodialysis yesterday. Does have intermittent nausea. Denies vomiting or diarrhea. Denies chest pain or shortness of breath. Scheduled for laparoscopic revision of the catheter today. Vital signs are stable. General: The patient appeared well nourished and normally developed. HEENT: Head exam is unremarkable. Neck is without jugular venous distension. LUNGS: Lungs are clear to auscultation and percussion. Breath sounds decreased. HEART: Rate and Rhythm are regular. First and second heart sounds normal. No murmurs, rubs or gallops. ABDOMEN: Abdominal exam reveals normal bowel sounds. Non-tender and non- distended. No evidence of peritonitis. EXTREMITITES: No clubbing, cyanosis, or edema. Left [id number] amputation noted. Objective - Vital Signs Vital signs: Vital Signs Temp 98.0 F 10/28/17 09:30 Pulse 85 10/28/17 09:30 Resp 20 10/28/17 09:30 BP 137/81 10/28/17 09:30 Pulse Ox 96 10/28/17 09:20 Intake & Output 10/27/17 10/28/17 10/28/17 18:59 06:59 18:59 Intake Total 80 Output Total 200 Balance 80 -200 Intake: IV 80 Sodium Chloride 0.9% 1, 80 000 ml @ 10 mls/hr IV . Q24H [facility] Rx#:[id number] Output: Emesis 200 Other: Voiding Method Toilet Toilet # Voids 1 - Labs CBC & Chem 7: 10/28/17 06:44 10/28/17 06:44 Labs: Abnormal Lab Results - Last 24 Hours (Table) 10/27/17 10/27/17 10/28/17 Range/Units 11:58 17:23 06:44 RBC 3.69 L (4.30-5.90) m/uL Hgb 9.8 L (13.0-17.5) gm/dL Hct 31.8 L (39.0-53.0) % MCHC 30.8 L (31.0-37.0) g/dL RDW 15.6 H (11.5-15.5) % Lymphocytes # 0.7 L (1.0-4.8) k/uL BUN (9-20) mg/dL Creatinine (0.66-1.25) mg/dL POC Glucose (mg/dL) 109 H 100 H (75-99) mg/dL Calcium (8.4-10.2) mg/dL AST (17-59) U/L Alkaline Phosphatase (38-126) U/L Total Protein (6.3-8.2) g/dL Albumin (3.5-5.0) g/dL 10/28/17 Range/Units 06:44 RBC (4.30-5.90) m/uL Hgb (13.0-17.5) gm/dL Hct (39.0-53.0) % MCHC (31.0-37.0) g/dL RDW (11.5-15.5) % Lymphocytes # (1.0-4.8) k/uL BUN 25 H (9-20) mg/dL Creatinine 7.86 H* (0.66-1.25) mg/dL POC Glucose (mg/dL) (75-99) mg/dL Calcium 7.7 L (8.4-10.2) mg/dL AST 15 L (17-59) U/L Alkaline Phosphatase 200 H (38-126) U/L Total Protein 5.2 L (6.3-8.2) g/dL Albumin 2.2 L (3.5-5.0) g/dL Microbiology - Last 24 Hours (Table) 10/26/17 20:48 Gram Stain - Preliminary Peritoneal Fluid Body Fluid Culture - Preliminary 10/26/17 10:33 Blood Culture - Preliminary Blood No Growth after 24 hours Assessment and Plan Plan: Assessment: #1. End-stage renal disease maintained on peritoneal dialysis. #2. Abdominal pain due to inability to drain dialysate related to fibrin around the catheter. Although his white cell count was 45, the PMN count was 65 % which is suggestive of peritonitis - cx negative. #3. Hypokalemia due to poor PO intake and hypomagnesemia. #4. Hypertension with chronic kidney disease. Controlled. #5. Chronic kidney disease mineral bone disease maintained on PhosLo and Renvela. #6. Insulin-dependent diabetes mellitus. #7. Metabolic acidosis secondary to chronic kidney disease. Improved post-HD. Plan: Status post IV vancomycin on October 26. IV Fortaz was also started on October 26 - being adjusted by ID. Gen. surgery following - potential laparoscopic evaluation today. Replace potassium. 40 mEq today. Follow-up cultures. Maintain oral sodium bicarbonate for now. Will resume PD if okay with general surgery after catheter revision today.
--- NOTE | 2017-10-28 11:41 | P.PN ---
Subjective Progress Note Date: 10/28/17 46-year-old male who presented to the emergency room with a chief complaint of abdominal pain that has persisted over the last two days. Patient states he has been having difficulty getting his PD catheter to drain and has not been able to properly complete a PD exchange in two days. He reports abdominal distention and bloating. Reports generalized abdominal pain. He denies nausea or vomiting. Denies chest pain or pressure. Denies shortness of breath. The patient has a history of end stage renal disease, coronary artery disease, diabetes, DVT, GERD, hypertension, hyperlipidemia, SC, PVD with a left below the knee amputation. 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 The patient was hospitalized in 2016 for peritonitis. His PD catheter was removed and the patient was placed on hemodialysis. The patient was also hospitalized in July 2017 for nausea and vomiting. He left AMA during that admission. Dr. Adorno replaced his PD catheter in July 2017. Acute abdomen series: Pleural reaction at the left lung base. Nonacute abdomen. Laboratory data: WBC 9.8. Hemoglobin 11.6. Platelet count 444. Sodium 134. Potassium 3.0. BUN 37. Creatinine 9.5. Lactic acid: 0.6 AST 22. ALT 20. Alkaline phosphatase 137. The patients BP upon admission was 174/94. He was febrile with a temperature of 100.0 Heart rate 96. RR 20. The patient was admitted to the hospital under the care of Dr. Hough. 10/27/2017 Patient evaluated at the bedside. Patient states he is feeling nausea this morning and continues to have generalized abdominal pain. Patient underwent shuntogram by interventional radiology which revealed significant fibrin sheath around the catheter. Patient reports they were able to infuse about half of the dialysate yesterday but when nursing attempted to drain there was no outflow. Patient states he is going to have hemodialysis today. Patient still has permacath to right chest wall. Patient reports Dr. Adonro is going to evaluate the catheter tomorrow and possibly exchange it. magnesium this morning is 1.5 and is being replaced. Patient is afebrile. Vital signs remain stable. Patient states Dr. Sy debrided his right foot wound at the bedside yesterday but no documentation is available regarding this. 10/28/2017 Patient seen and examined at the bedside on rounds with Dr. Hough. Patient is awake and alert sitting up in the bed. Patient states he continues to have generalized abdominal pain. Patient underwent hemodialysis yesterday. Creatinine is 7.86, down from 10.0. Patient is scheduled evaluation of his peritoneal dialysis catheter with Dr. Adorno today. Case discussed with Dr. Mann who states patient may resume PD after catheter revision today if okay with Dr. Adorno. Otherwise, patient will have to continue HD. Patient is afebrile. Blood pressure 137/81. Patient is on room air with oxygen saturations greater than 92%. Heart rate is in the 80s. Objective - Vital Signs Vital signs: Vital Signs Temp 98.0 F 10/28/17 09:30 Pulse 85 10/28/17 09:30 Resp 20 10/28/17 09:30 BP 137/81 10/28/17 09:30 Pulse Ox 96 10/28/17 09:20 Intake & Output 10/27/17 10/28/17 10/28/17 18:59 06:59 18:59 Intake Total 80 Output Total 200 Balance 80 -200 Intake: IV 80 Sodium Chloride 0.9% 1, 80 000 ml @ 10 mls/hr IV . Q24H [facility] Rx#:[id number] Output: Emesis 200 Other: Voiding Method Toilet Toilet # Voids 1 - Exam GENERAL: This is a 46-year-old male in no apparent distress at the time of examination. Pleasant and cooperative. HEENT: Head is atraumatic, normocephalic. Pupils are equal, round, and reactive to light. Sclerae anicteric. Conjunctivae are clear. Mucus membranes of the mouth are moist. Neck is supple. RESPIRATORY: Clear to ausculation. No wheezes, rales, or rhonchi. No use of accessory muscles. Patient maintaining oxygen saturation greater than 92%. No chest wall tenderness is noted on palpation or with deep breathing. CARDIOVASCULAR: Permacath noted to right chest wall. Regular rate and rhythm. S1 and S2 noted. No systolic or diastolic murmur auscultated. No JVD noted. No S3 or S4 noted. GASTROINTESTINAL: Dialysis catheter noted. Bowel sounds auscultated x 4 quadrants. Pain and tenderness noted upon palpation. INTEGUMENTARY: No cyanosis. No jaundice. No rashes noted. No cellulitis noted. EXTREMITIES: Left BKA noted. Partial right foot amputation with chronic wound noted. NEUROLOGIC: Cranial nerves II-XII intact. PSYCHIATRIC: Awake, alert, and oriented X 3. Appropriate affect. Intact judgement and insight. - Labs CBC & Chem 7: 10/28/17 06:44 10/28/17 06:44 Labs: Abnormal Lab Results - Last 24 Hours (Table) 10/27/17 10/27/17 10/28/17 Range/Units 11:58 17:23 06:44 RBC 3.69 L (4.30-5.90) m/uL Hgb 9.8 L (13.0-17.5) gm/dL Hct 31.8 L (39.0-53.0) % MCHC 30.8 L (31.0-37.0) g/dL RDW 15.6 H (11.5-15.5) % Lymphocytes # 0.7 L (1.0-4.8) k/uL BUN (9-20) mg/dL Creatinine (0.66-1.25) mg/dL POC Glucose (mg/dL) 109 H 100 H (75-99) mg/dL Calcium (8.4-10.2) mg/dL AST (17-59) U/L Alkaline Phosphatase (38-126) U/L Total Protein (6.3-8.2) g/dL Albumin (3.5-5.0) g/dL 10/28/17 Range/Units 06:44 RBC (4.30-5.90) m/uL Hgb (13.0-17.5) gm/dL Hct (39.0-53.0) % MCHC (31.0-37.0) g/dL RDW (11.5-15.5) % Lymphocytes # (1.0-4.8) k/uL BUN 25 H (9-20) mg/dL Creatinine 7.86 H* (0.66-1.25) mg/dL POC Glucose (mg/dL) (75-99) mg/dL Calcium 7.7 L (8.4-10.2) mg/dL AST 15 L (17-59) U/L Alkaline Phosphatase 200 H (38-126) U/L Total Protein 5.2 L (6.3-8.2) g/dL Albumin 2.2 L (3.5-5.0) g/dL Microbiology - Last 24 Hours (Table) 10/26/17 20:48 Gram Stain - Preliminary Peritoneal Fluid Body Fluid Culture - Preliminary 10/26/17 10:33 Blood Culture - Preliminary Blood No Growth after 24 hours Assessment and Plan Plan: ASSESSMENT: Abdominal pain x 2 days, present on admission, due to inability to drain dialysate secondary to malfunctioning peritoneal dialysis catheter secondary to obstruction of fibrin sheath around the catheter. Peritonitis unlikely per nephrology Chronic kidney disease, end stage, GFR 6, maintained on peritoneal dialysis Hypertension History of diabetic gastroparesis Diabetes mellitus, type II, hemoglobin A1c 6.8% Diabetic ulcer to right plantar foot and right lateral leg, s/p surgical debridement on 10/12/[address] Sy and again on 10/26/2017 per patient Recent hospitalization, July 2017, for N/V, patient signed out AMA Previous hospitalization in 2016 for peritonitis, PD catheter was removed and patient was transitioned to hemodialysis Peripheral vascular disease with history of left BKA and right partial foot amputation History of seizures Coronary artery disease with previous myocardial infarction History of MRSA infection in left lower extremity PLAN: Nephrology on consult. Appreciate recommendations and input Patient to undergo evaluation of PD catheter today by Dr. Tila Sy, infectious disease, on consult. Appreciate recommendations and input Antibiotic regimen per ID Await results of blood cultures and urine culture Home meds as appropriate Novolog sliding scale AC/HS. Will discontinue Levemir secondary to BS 80-100s. Monitor labs GI prophylaxis: Pepcid 20mg PO BID Monitor vital signs and address as appropriate Further recommendations pending patient's course Due to patients left BKA and partial amputation of right foot along with multiple comorbidities, patient requires a wheelchair for assistance with mobility. Script signed for wheelchair Discharge plan: home with home care when stable Nurse practitioner note has been reviewed by physician. Signing provider agrees with the documented findings, assessment, and plan of care.
[2017-10-28 12:00] LABS: Glucose,Whole Blood 90 mg/dL (75-99)
[2017-10-28 13:01] LABS: Hepatitis B Surface AB- Quant 37.8 mIU/mL
[2017-10-28] MEDS: FOLIC ACID-VIT B COMPLEX-VIT C 1 CAP PO SCH (13:14)
[2017-10-28 14:43] LABS: Glucose,Whole Blood 82 mg/dL (75-99)
[2017-10-28] MEDS ORDERED: BUPIVACAINE (PF) 0.25% 30 ML VIAL SQ ONE (15:46)
--- NOTE | 2017-10-28 16:05 | P.OP ---
Date of Procedure: 10/28/17 Procedure(s) Performed: PREOPERATIVE DIAGNOSIS: Malfunctioning peritoneal dialysis catheter POSTOPERATIVE DIAGNOSIS: Intra-abdominal adhesions PROCEDURE: Laparoscopic repositioning of dialysis catheter SURGEON: Tila EBL: merle ANESTHESIA: Gen. COMPLICATIONS: None OPERATIVE PROCEDURE: Patient was placed in the supine position. The patient's abdomen was prepped and draped in usual sterile fashion. The catheter was also prepped and draped appropriately. A 5 mm optical trocar was used to enter the peritoneal cavity in the left upper quadrant. An additional 5 mm trocar was placed in the epigastrium under direct visualization. The patient had a total of 2.5-3 L of serosanguineous fluid within the abdomen. Cultures were taken. No delmy purulence was seen. In the left lower quadrant there did appear to be some increased induration with a small amount of bloody clot in that location. No inflamed bowel was identified. The catheter was seen entering a mass of small bowel loops in the mid abdomen. Without difficulty the catheter was removed from those adhesions. This was repositioned in the pelvis. The dialysis catheter was cut externally. A bronchoscopy brush was used to brush through the entire length of the pigtail catheter. A small fibrinous clot was removed. There was good flow through the catheter at that point. The dialysis adapter was applied. The pneumoperitoneum was evacuated. It should be noted the omentum was present in the upper abdomen. The skin at both 5 mm trocar sites was closed using 4-0 Monocryl sutures. DISPOSITION: Stable to recovery room
[2017-10-28 16:47] LABS: Glucose,Whole Blood 78 mg/dL (75-99)
[2017-10-28] MEDS ORDERED: hydrALAZINE HCL 20 MG/ML 1 ML VIAL IVP ONE (17:20)
[2017-10-28] MEDS: MORPHINE ORAL SOLN 10 MG/5 ML CUP PO PRN (18:15)
[2017-10-28] MEDS: TAMSULOSIN 0.4 MG CAP.ER.24H PO SCH (22:36)
[2017-10-28] MEDS: INSULIN DETEMIR 100 UNIT/ML 10 ML VIAL SQ SCH (22:37)
[2017-10-28] MEDS: ATORVASTATIN 80 MG TAB PO SCH (22:37)
[2017-10-28 22:53] LABS: Glucose,Whole Blood 95 mg/dL (75-99)
--- NOTE | 2017-10-28 23:53 | P.PN ---
Subjective Progress Note Date: 10/28/17 Principal diagnosis: Abdominal pain 46-year-old male who has diabetes as well as type II with many Occasions that includes end-stage renal disease on peritoneal dialysis. Earlier this year as noted had difficulties with his infection of the peritoneal dialysis catheter this was removed and he has been on hemodialysis. He had complete healing of the abdominal infection headache. To note catheter dialysis replaced was doing well on his CAPD. However now comes to hospital with lack of drainage of his catheter increasing abdominal discomfort and just not feeling very well. Temperature maximum is been 100 and is not his significant chills. Today he is feeling a little more poorly and that with antibiotic therapies without significant nausea and emesis somewhat her is what he had last time. He is not having diarrhea. 10/28/2017 patient is feeling better today. Had dialysis yesterday which seems to resolve some of his uremic symptoms. He is awaiting surgery is not having nausea or emesis at this time. No fevers or chills. Objective - Vital Signs Vital signs: Vital Signs Temp 98.2 F 10/28/17 19:00 Pulse 88 10/28/17 19:45 Resp 16 10/28/17 19:00 BP 126/83 10/28/17 19:45 Pulse Ox 98 10/28/17 19:00 Intake & Output 10/28/17 10/28/17 10/29/17 06:59 18:59 06:59 Intake Total 600 Output Total 200 5 Balance -200 595 Weight 101 kg Intake: IV 600 Output: Emesis 200 Estimated Blood Loss 5 Other: Voiding Method Toilet Toilet # Voids 1 - Exam 46-year-old male not feeling well tonight because of nausea HEENT: Anicteric conjunctiva are pink and moist nasal mucosa grossly intact without significant lesions, there is no thrush. Neck: The neck is supple without significant lymphadenopathy or thyromegaly. Lungs: Good bilateral air entry without significant crackles or wheezing. There is no significant bronchial sounds. There is no egophony or dullness. Heart: Regular rate and rhythm with an audible S1-S2, no S3 no S4. There is no significant murmur click or rub, PMI was nondisplaced. Abdomen: Positive bowel sounds soft and nontender without palpable masses or organomegaly. Still has evidence of distention to the abdomen Extremities: The upper extremities have excellent pulses they are symmetric, no significant petechiae or telangiectasia. No splinter hemorrhages were noted. Left lower extremity without difficulty at the residual limb. Ulceration to the right foot plantar is at 0.3 0.3 0.1 Neuro: Awake alert oriented to person place and time. There are no acute new gross focal sensory motor deficits. - Labs CBC & Chem 7: 10/28/17 06:44 10/28/17 06:44 Labs: Abnormal Lab Results - Last 24 Hours (Table) 10/28/17 10/28/17 10/28/17 Range/Units 06:44 06:44 06:44 RBC 3.69 L (4.30-5.90) m/uL Hgb 9.8 L (13.0-17.5) gm/dL Hct 31.8 L (39.0-53.0) % MCHC 30.8 L (31.0-37.0) g/dL RDW 15.6 H (11.5-15.5) % Lymphocytes # 0.7 L (1.0-4.8) k/uL BUN 25 H (9-20) mg/dL Creatinine 7.86 H* (0.66-1.25) mg/dL Calcium 7.7 L (8.4-10.2) mg/dL AST 15 L (17-59) U/L Alkaline Phosphatase 200 H (38-126) U/L Total Protein 5.2 L (6.3-8.2) g/dL Albumin 2.2 L (3.5-5.0) g/dL Hep Bs Antibody Reactive H (Non-Reactive) Microbiology - Last 24 Hours (Table) 10/26/17 10:33 Blood Culture - Preliminary Blood No Growth after 48 hours Laboratory Results WBC 7.1 k/uL (3.8-10.6) 10/28/17 06:44 RBC 3.69 m/uL (4.30-5.90) L 10/28/17 06:44 Hgb 9.8 gm/dL (13.0-17.5) L 10/28/17 06:44 Hct 31.8 % (39.0-53.0) L 10/28/17 06:44 MCV 86.0 fL (80.0-100.0) 10/28/17 06:44 MCH 26.5 pg (25.0-35.0) 10/28/17 06:44 MCHC 30.8 g/dL (31.0-37.0) L 10/28/17 06:44 RDW 15.6 % (11.5-15.5) H 10/28/17 06:44 Plt Count 398 k/uL (150-450) 10/28/17 06:44 Neutrophils % 78 % 10/28/17 06:44 Lymphocytes % 10 % 10/28/17 06:44 Monocytes % 9 % 10/28/17 06:44 Eosinophils % 1 % 10/28/17 06:44 Basophils % 0 % 10/28/17 06:44 Neutrophils # 5.5 k/uL (1.3-7.7) 10/28/17 06:44 Lymphocytes # 0.7 k/uL (1.0-4.8) L 10/28/17 06:44 Monocytes # 0.6 k/uL (0-1.0) 10/28/17 06:44 Eosinophils # 0.1 k/uL (0-0.7) 10/28/17 06:44 Basophils # 0.0 k/uL (0-0.2) 10/28/17 06:44 Hypochromasia Moderate 10/28/17 06:44 Poikilocytosis Slight 10/28/17 06:44 PT 10.4 sec (9.0-12.0) 10/25/17 21:40 INR 1.1 (<1.2) 10/25/17 21:40 APTT 27.2 sec (22.0-30.0) 10/25/17 21:40 Sodium 138 mmol/L (137-145) 10/28/17 06:44 Potassium 3.5 mmol/L (3.5-5.1) 10/28/17 06:44 Chloride 100 mmol/L (98-107) 10/28/17 06:44 Carbon Dioxide 22 mmol/L (22-30) 10/28/17 06:44 Anion Gap 16 mmol/L 10/28/17 06:44 BUN 25 mg/dL (9-20) H 10/28/17 06:44 Creatinine 7.86 mg/dL (0.66-1.25) H* 10/28/17 06:44 Est GFR (CKD-EPI)AfAm 9 (>60 ml/min/1.73 sqM) 10/28/17 06:44 Est GFR (CKD-EPI)NonAf 7 (>60 ml/min/1.73 sqM) 10/28/17 06:44 Glucose 89 mg/dL (74-99) 10/28/17 06:44 POC Glucose (mg/dL) 95 mg/dL (75-99) 10/28/17 22:31 POC Glu Building Official GAYATHRI Dwight Cortez 10/28/17 22:[address] Glu mg/dL 148 10/26/17 09:25 Hemoglobin A1c 6.8 % (4.0-6.0) H 10/26/17 09:25 Plasma Lactic Acid Massimo 0.6 mmol/L (0.7-2.0) L 10/25/17 21:40 Calcium 7.7 mg/dL (8.4-10.2) L 10/28/17 06:44 Phosphorus 7.8 mg/dL (2.5-4.5) H 10/27/17 06:51 Magnesium 1.5 mg/dL (1.6-2.3) L 10/27/17 06:51 Total Bilirubin 0.3 mg/dL (0.2-1.3) 10/28/17 06:44 AST 15 U/L (17-59) L 10/28/17 06:44 ALT 21 U/L (21-72) 10/28/17 06:44 Alkaline Phosphatase 200 U/L (38-126) H 10/28/17 06:44 Total Creatine Kinase 137 U/L (55-170) 10/26/17 09:25 CK-MB (CK-2) 6.3 ng/mL (0.0-2.4) H* 10/26/17 09:25 CK-MB (CK-2) Rel Index 4.6 10/26/17 09:25 Troponin I <0.012 ng/mL (0.000-0.034) 10/26/17 09:25 Total Protein 5.2 g/dL (6.3-8.2) L 10/28/17 06:44 Albumin 2.2 g/dL (3.5-5.0) L 10/28/17 06:44 Triglycerides 122 mg/dL (<150) 10/25/17 21:40 Cholesterol 131 mg/dL (<200) 10/25/17 21:40 LDL Cholesterol, Calc 71 mg/dL (0-99) 10/25/17 21:40 HDL Cholesterol 36 mg/dL (40-60) L 10/25/17 21:40 Amylase <30 U/L (30-110) L 10/25/17 21:40 Lipase 12 U/L (23-300) L 10/25/17 21:40 Fluid Source Dialysate 10/26/17 20:48 Fluid Color Colorless 10/26/17 20:48 Fluid Appearance Hazy 10/26/17 20:48 Fluid RBC 450 /uL 10/26/17 20:48 Fluid Nucleated Cells 45 /uL 10/26/17 20:48 Fluid Polynuclear WBCs 65 % 10/26/17 20:48 Fluid Mononuclear WBCs 35 % 10/26/17 20:48 C. difficile (EIA) Intrp Negative (Negative) 10/26/17 07:50 Hep Bs Antigen Non-Reactive (Non-Reactive) 10/28/17 06:44 Hep Bs Antibody Reactive (Non-Reactive) H 10/28/17 06:44 Hep Bs Antibody, Quant 37.8 mIU/mL 10/28/17 06:44 Microbiology 10/26/17 10:33 Blood Blood Culture - Preliminary No Growth after 48 hours 10/26/17 20:48 Peritoneal Fluid Gram Stain - Preliminary 10/26/17 20:48 Peritoneal Fluid Body Fluid Culture - Preliminary Assessment and Plan (1) Abdominal pain Narrative/Plan: 46-year-old male lungs sitting history diabetes mellitus type 2 with end state renal disease receiving CAPD. As noted does have a history of peritonitis requiring removal of the CAPD catheter and transition to hemodialysis. He has had complete resolution of the infection and the CAPD catheter was replaced. He now has had difficulties in that the fluid for dialysis was placed without any significant drainage. But evidence of an extensive fibrin sheath around the catheter. He is being followed by nephrology and received hemodialysis today, he has significant uremia which is likely in conjunction with the antibiotics is causing his significant nausea is he's had before. Hopefully as he has further dialysis uremia improves his current nausea will improve. The patient did have some fluid withdrawn from the peritoneal cavity cell count was only 45 the fluid was clear and colorless. His T-max is been 100 with no ongoing fevers and consequently it is unlikely that he has peritonitis. He has already been dosed with vancomycin, will discontinue ceftaz intensity appears to be causing him significant nausea and abdominal discomfort. Blood cultures are negative. He will be monitored 10/28/2017 the patient will go to the operating room today for further evaluation of this. Chest dialysis catheter and what appears to be some fibrin depositions in evaluation for infection. At this time he is afebrile. The white cell count was low, and the patient is not having steady and leukocytosis and is feeling somewhat better overall. At this time the patient does not appear to have peritonitis it would not provide further antibiotic therapy at this time. We'll discuss the findings of surgery with Dr. Adorno Current Visit: No Status: Acute Code(s): R10.9 - UNSPECIFIED ABDOMINAL PAIN SNOMED Code(s): 95236338 (2) End stage renal disease on dialysis Current Visit: Yes Status: Chronic Code(s): N18.6 - END STAGE RENAL DISEASE SNOMED Code(s): 197692558 (3) Hemodialysis catheter malfunction Current Visit: Yes Status: Acute Code(s): T82.41XA - BREAKDOWN (MECHANICAL) OF VASCULAR DIALYSIS CATHETER, INIT SNOMED Code(s): 16488963
[2017-10-29] MEDS: METOCLOPRAMIDE 5 MG/ML 2 ML VIAL IVP PRN ×3 (05:16→22:05)
[2017-10-29] MEDS: LEVOTHYROXINE 25 MCG TAB PO SCH (05:21)
[2017-10-29] MEDS: SODIUM CHLORIDE 0.9% 1,000 ML IV SCH (05:21)
--- NOTE | 2017-10-29 07:25 | P.PN ---
Subjective Progress Note Date: 10/29/17 Principal diagnosis: Malfunctioning peritoneal dialysis catheter Patient says his pain is improving. Pain seems to be centered primarily in the left lower quadrant which correlates to the area of inflammatory change seen yesterday on laparoscopy. Catheter to be used today. Objective - Vital Signs Vital signs: Vital Signs Temp 97.8 F 10/29/17 01:41 Pulse 79 10/29/17 01:41 Resp 16 10/29/17 01:41 BP 135/77 10/29/17 01:41 Pulse Ox 91 L 10/29/17 01:41 Intake & Output 10/28/17 10/29/17 10/29/17 18:59 06:59 18:59 Intake Total 600 580 Output Total 5 Balance 595 580 Weight 101 kg 101 kg Intake: IV 600 80 Sodium Chloride 0.9% 1, 80 000 ml @ 10 mls/hr IV . Q24H [facility] Rx#:[id number] Oral 500 Output: Estimated Blood Loss 5 Other: Voiding Method Toilet Toilet # Voids 2 - Exam Abdomen soft, less distended, incisions clean and dry - Labs CBC & Chem 7: 10/28/17 06:44 10/28/17 06:44 Labs: Abnormal Lab Results - Last 24 Hours (Table) 10/28/17 10/28/17 10/28/17 Range/Units 06:44 06:44 06:44 RBC 3.69 L (4.30-5.90) m/uL Hgb 9.8 L (13.0-17.5) gm/dL Hct 31.8 L (39.0-53.0) % MCHC 30.8 L (31.0-37.0) g/dL RDW 15.6 H (11.5-15.5) % Lymphocytes # 0.7 L (1.0-4.8) k/uL BUN 25 H (9-20) mg/dL Creatinine 7.86 H* (0.66-1.25) mg/dL Calcium 7.7 L (8.4-10.2) mg/dL AST 15 L (17-59) U/L Alkaline Phosphatase 200 H (38-126) U/L Total Protein 5.2 L (6.3-8.2) g/dL Albumin 2.2 L (3.5-5.0) g/dL Hep Bs Antibody Reactive H (Non-Reactive) Microbiology - Last 24 Hours (Table) 10/28/17 15:50 Gram Stain - Preliminary Peritoneal Fluid Body Fluid Culture - Preliminary 10/28/17 15:50 Anaerobic Culture - Preliminary Peritoneal Fluid 10/28/17 15:50 Fungal Culture - Preliminary Peritoneal Fluid 10/26/17 10:33 Blood Culture - Preliminary Blood No Growth after 48 hours Assessment and Plan (1) Peritoneal dialysis catheter in situ Narrative/Plan: Begin small volume exchanges today. If tolerates advance volume level. Continue antibiotics for possible peritonitis. Current Visit: No Status: Chronic Code(s): Z99.2 - DEPENDENCE ON RENAL DIALYSIS SNOMED Code(s): 716778996
[2017-10-29 07:43] LABS: Glucose,Whole Blood 86 mg/dL (75-99)
[2017-10-29 07:45] LABS: Basophils % (A) 0 %; Eosinophils # (A) 0.2 k/uL (0-0.7); Eosinophils % (A) 2 %; HCT 33.6 % (39.0-53.0); HGB 10.2 gm/dL (13.0-17.5); Hypochromasia Marked; Lymphocytes # (A) 0.8 k/uL (1.0-4.8); Lymphocytes % (A) 10 %; MCH 26.5 pg (25.0-35.0); MCHC 30.4 g/dL (31.0-37.0); Mean Platelet Volume 6.9; Monocytes # (A) 0.7 k/uL (0-1.0); Monocytes % (A) 8 %; Neutrophils # (A) 6.1 k/uL (1.3-7.7); Neutrophils % (A) 78 %; Platelet Count 433 k/uL (150-450); Poikilocytosis Slight; RBC 3.86 m/uL (4.30-5.90); RDW 15.5 % (11.5-15.5); WBC 7.8 k/uL (3.8-10.6)
[2017-10-29 08:07] LABS: Albumin 2.3 g/dL (3.5-5.0); Calcium 7.9 mg/dL (8.4-10.2); Magnesium 1.9 mg/dL (1.6-2.3); Potassium 3.9 mmol/L (3.5-5.1); Total Bilirubin 0.4 mg/dL (0.2-1.3); Total Protein 5.4 g/dL (6.3-8.2)
--- NOTE | 2017-10-29 08:47 | CONS ---
CONSULTATION Mr. Miles is a 46-year-old gentleman well known to Infectious Disease service because of his difficulties with peritonitis and his chronic lower extremity ulceration to the right heel. This pleasant [facility] with marked improvement to the ulceration of his right heel. He had been hospitalized earlier this year, at which point in time, he had difficulties with peritonitis. His peritoneal dialysis catheter was removed and he was switched to hemodialysis. After completion of treatment for his peritonitis he has then been seen by the surgeon and a dialysis catheter has been again placed. He was doing well in the home setting. I do not believe he has been using his cycler and developed difficulties with his abdomen started to have some distention and poor drainage of the dialysate. Because of this, he was brought into hospital and has been seen by surgery as well as Nephrology. With concerns to peritonitis as well as a chronic ulceration to his right foot, the infectious diseases consultation was requested. REVIEW OF SYSTEMS: Reveals evidence of HEENT. He has no headache or visual changes. No sinus or mouth discomforts. He is having no neck stiffness. No difficulties with oral cavity, pain and no difficulty with swallowing. LUNGS: Good air entry. He has no significant cough or sputum production. No hemoptysis. Cardiovascular denies chest pain. Denies syncope or dyspnea on exertion. GASTROINTESTINAL: Denies nausea and emesis like he has had in the past. No acute difficulties with his diabetic gastroparesis. MUSCULOSKELETAL: No acute myalgias or arthralgias. Denies acute back pain. Skin does have a chronic ulceration to the right foot and a prior left [id number] amputation. Neurologic denies acute headache. No visual changes. No acute neurological changes. Psychiatry denies acute anxiety, depression. Endocrine, fatigue and weight has been difficult to maintain because of his gastrointestinal difficulties with his gastroparesis. ALLERGIES: No known drug allergies. MEDICATIONS: Include Diamox 125 mg orally twice per day, amiodarone 200 mg orally twice per day, Amlodipine 10 mg daily. Unasyn has been started at 3 g IV piggyback every 12 hours. Atorvastatin 80 mg orally daily. PhosLo 667 mg orally with each meal. A dose of ceftazidime and vancomycin have been added for his peritoneal dialysis. Pepcid is 20 mg twice per day. Gabapentin 300 mg orally 3 times per day. His dialysis solution has been ordered and heparin has been requested to be placed into the fluid also. His insulin regimen is noted to include Levemir 10 units at q.h.s. and sliding scale with NovoLog per his meals. Lac-Hydrin to the dry skin of his legs, Keppra 750 mg orally every 12 hours. Synthroid 25 mcg orally each day, morphine sulfate is 12 mg orally every 4 hours as needed for severe pain. Nitroglycerin sublingual as needed for chest pain. Renovate 1600 mg orally twice per day. Zofran 4 mg IV push every 6 hours as needed for nausea and emesis, Renvela 800 mg orally 4 times a day. Flomax 0.8 mg orally at q.h.s., Ultram 50 mg every 6 hours as needed for pain, and thiamine 100 mg orally each day. SOCIALLY: He is single, lives with his children. He has 1 child who still lives at home. The other 2 are away at college. His 17-year-old is graduating from high school and will be joining the this summer. He is a lifelong nonsmoker. No significant alcohol himself. No experience. No extensive travels. PAST MEDICAL HISTORY: Is extensive, includes is coronary artery disease, diabetes mellitus type 2 with multiple complications include end-stage renal disease, on peritoneal dialysis. History of deep venous thrombosis. GERD, hyperlipidemia, hypertension, myocardial infarction, seizures, and hypothyroidism. He has had multiple hospitalizations, most recently as noted was with the peritoneal dialysis catheter infection requiring removal and the use of hemodialysis. He has surgical history left below-knee amputation because of his severe peripheral vascular disease. Does have a history of MRSA in the past. He has had cataract removal, vitrectomy bilaterally for his diabetic retinopathy and bleeding. FAMILY HISTORY: Positive for father having cancer from [employer] [place]. Mother had lung cancer and she was a smoker. His children are healthy. EXAM: Reveals a 46-year-old gentleman to be in no acute distress. His temperature is 97.8, blood pressure is 141/85, heart rate is 85, Respiratory rate 16, pulse ox 94%. On exam he is anicteric and conjunctivae are pink and moist. Nasal mucosa grossly intact. He has no significant thrush. NECK: Supple with no significant lymphadenopathy or palpable thyromegaly. Lungs evidence of good bilateral air entry without significant crackles or wheezing. Heart is regular. Audible S1, S2. Loud S4. No distinct murmur, click or rub. Abdomen has evidence of significant distention in that he does have evidence of fluid that has been placed and could not be withdrawn. Upper and lower extremities without acute lesions. The dialysis fistula is with a positive thrill and bruit. It is nontender. Lower extremities show evidence of the amputation site to the left without difficulties. Right lower extremity shows evidence of the ulceration, plantar surface 0.3 x 0.3 x 0.1, which is further improved. No new acute neurological problems. LABORATORIES: Reviewed include his creatinine 9.65, dialysis fluid has been obtained and is negative. His white count is normal at 9.8, hemoglobin 11.6, and platelets are at 444. No positive cultures at this time. He has some diarrhea and a C diff toxin was negative. IMPRESSION AND RECOMMENDATIONS: Mr. Miles is the 46-year-old gentleman with many medical troubles related to his diabetes mellitus type 2 including end-stage renal disease, on peritoneal dialysis, having failure of at this point in time. Interventional Radiology will be attempting to clear his catheter so that peritoneal dialysis may commence. If this cannot be done, then hemodialysis can be restarted. However, with the need to have further surgical evaluation as far as that catheter. He had some loose stool but no evidence of any C diff. At this time, does not seem to have evidence of peritonitis and the abdominal cavity is not tender. The dialysis fluid when it is available will be very helpful to help diagnosis the possibility of infection. We will work with the ostrich farmer as far as any need for further antibiotic therapy. Local wound care can be utilized to the foot with medical honey that can be changed 3 times a week. Offload the foot as best he can for now, and we will monitor. Thank you for this consultation. MMODL / IJN: [id number] /
[2017-10-29] MEDS: INSULIN ASPART 100 UNIT/ML 1 ML 10 ML VIAL SQ SCH ×4 (10:09→22:56)
[2017-10-29] MEDS: acetaZOLAMIDE 250 MG TAB PO SCH ×2 (10:10→22:55)
[2017-10-29] MEDS: amLODIPine 10 MG TAB PO SCH (10:10)
[2017-10-29] MEDS: SODIUM BICARBONATE TAB 650 MG TAB PO SCH ×2 (10:11→22:57)
[2017-10-29] MEDS: levETIRAcetam 250 MG TAB PO SCH (10:11)
[2017-10-29] MEDS: SEVELAMER 800 MG TAB PO SCH ×4 (10:11→23:10)
[2017-10-29] MEDS: AMIODARONE 200 MG TAB PO SCH ×2 (10:12→22:55)
[2017-10-29] MEDS: FAMOTIDINE 20 MG TAB PO SCH (10:12)
[2017-10-29] MEDS: GABAPENTIN 300 MG CAP PO SCH ×2 (10:12→22:56)
[2017-10-29] MEDS: CALCIUM ACETATE 667 MG CAP PO SCH ×3 (10:13→22:54)
[2017-10-29] MEDS: THIAMINE 100 MG TAB PO SCH (10:13)
[2017-10-29] MEDS: DIALYSIS INTRAPERIT SCH ×5 (10:24→21:46)
[2017-10-29 11:21] LABS: Glucose,Whole Blood 101 mg/dL (75-99)
[2017-10-29] MEDS: AMMONIUM LACTATE 12% LOTION 225 GM BTL TOPICAL SCH ×2 (11:57→22:55)
--- NOTE | 2017-10-29 14:46 | P.PN ---
Subjective Patient is seen in follow-up for end-stage renal disease. He was maintained on peritoneal dialysis. However he's been having difficulty with draining. The PD catheter was noted to be patent. However he does have a fibrin sheath around the catheter. He is currently resting in bed. Does have intermittent nausea. Denies vomiting or diarrhea. Denies chest pain or shortness of breath. Underwent laparoscopic revision of the PD catheter on October 28 which revealed multiple intra-abdominal adhesions. Vital signs are stable. General: The patient appeared well nourished and normally developed. HEENT: Head exam is unremarkable. Neck is without jugular venous distension. LUNGS: Lungs are clear to auscultation and percussion. Breath sounds decreased. HEART: Rate and Rhythm are regular. First and second heart sounds normal. No murmurs, rubs or gallops. ABDOMEN: Abdominal exam reveals normal bowel sounds. Non-tender and non- distended. No evidence of peritonitis. EXTREMITITES: No clubbing, cyanosis, or edema. Left [id number] amputation noted. Objective - Vital Signs Vital signs: Vital Signs Temp 97.7 F 10/29/17 10:25 Pulse 77 10/29/17 10:25 Resp 16 10/29/17 10:25 BP 160/92 10/29/17 10:25 Pulse Ox 89 L 10/29/17 10:25 Intake & Output 10/28/17 10/29/17 10/29/17 18:59 06:59 18:59 Intake Total 600 580 125 Output Total 5 Balance 595 580 125 Weight 101 kg 101 kg 93 kg Intake: IV 600 80 Sodium Chloride 0.9% 1, 80 000 ml @ 10 mls/hr IV . Q24H [facility] Rx#:[id number] Oral 500 125 Output: Estimated Blood Loss 5 Other: Voiding Method Toilet Toilet Toilet # Voids 2 - Labs CBC & Chem 7: 10/29/17 07:21 10/29/17 07:21 Labs: Abnormal Lab Results - Last 24 Hours (Table) 10/29/17 10/29/17 10/29/17 Range/Units 07:21 07:21 11:19 RBC 3.86 L (4.30-5.90) m/uL Hgb 10.2 L (13.0-17.5) gm/dL Hct 33.6 L (39.0-53.0) % MCHC 30.4 L (31.0-37.0) g/dL Lymphocytes # 0.8 L (1.0-4.8) k/uL Sodium 136 L (137-145) mmol/L Carbon Dioxide 21 L (22-30) mmol/L BUN 30 H (9-20) mg/dL Creatinine 8.83 H* (0.66-1.25) mg/dL POC Glucose (mg/dL) 101 H (75-99) mg/dL Calcium 7.9 L (8.4-10.2) mg/dL Alkaline Phosphatase 186 H (38-126) U/L Total Protein 5.4 L (6.3-8.2) g/dL Albumin 2.3 L (3.5-5.0) g/dL Microbiology - Last 24 Hours (Table) 10/26/17 20:48 Gram Stain - Final Peritoneal Fluid Body Fluid Culture - Final Staphylococcus epidermidis 10/26/17 10:33 Blood Culture - Preliminary Blood No Growth after 72 hours 10/28/17 15:50 Gram Stain - Preliminary Peritoneal Fluid Body Fluid Culture - Preliminary 10/28/17 15:50 Anaerobic Culture - Preliminary Peritoneal Fluid 10/28/17 15:50 Fungal Culture - Preliminary Peritoneal Fluid Assessment and Plan Plan: Assessment: #1. End-stage renal disease maintained on peritoneal dialysis. #2. Abdominal pain due to inability to drain dialysate related to fibrin around the catheter. Although his white cell count was 45, the PMN count was 65 % which is suggestive of peritonitis - body fluid culture positive for staph epidermidis. #3. Hypokalemia due to poor PO intake and hypomagnesemia. #4. Hypertension with chronic kidney disease. Controlled. #5. Chronic kidney disease mineral bone disease maintained on PhosLo and Renvela. #6. Insulin-dependent diabetes mellitus. #7. Metabolic acidosis secondary to chronic kidney disease. Improved post-HD. Plan: Status post IV vancomycin on October 26. IV Fortaz was also started on October 26 - being adjusted by ID. Follow-up cultures. Maintain oral sodium bicarbonate for now. Patient tolerated 1 L fill this morning quite well. He will be drained soon. Will make further recommendations pending on how he does.
[2017-10-29] MEDS: FOLIC ACID-VIT B COMPLEX-VIT C 1 CAP PO SCH (14:54)
[2017-10-29] MEDS ORDERED: DIALYSIS INTRAPERIT SCH (15:00)
[2017-10-29 16:38] LABS: Glucose,Whole Blood 111 mg/dL (75-99)
[2017-10-29 16:45] LABS: Appearance,BF Cloudy; Color,BF Red
[2017-10-29 18:03] LABS: Nucleated Cells, Body Fluid 200 /uL; RBC, Body Fluid 3500 /uL
[2017-10-29 18:14] LABS: Mononuclear WBC,Body Fluid 4 %; Polynuclear WBC,Body Fluid 96 %; Total Cells Counted,Body Fluid 100
[2017-10-29 21:35] LABS: Glucose,Whole Blood 107 mg/dL (75-99)
[2017-10-29] MEDS: TAMSULOSIN 0.4 MG CAP.ER.24H PO SCH (22:55)
[2017-10-29] MEDS: ATORVASTATIN 80 MG TAB PO SCH (22:56)
[2017-10-29] MEDS: INSULIN DETEMIR 100 UNIT/ML 10 ML VIAL SQ SCH (22:56)
[2017-10-30] MEDS: DIALYSIS INTRAPERIT SCH ×6 (02:00→22:07)
[2017-10-30] MEDS: METOCLOPRAMIDE 5 MG/ML 2 ML VIAL IVP PRN (04:12)
[2017-10-30] MEDS: SODIUM CHLORIDE 0.9% 1,000 ML IV SCH ×2 (05:57→22:26)
[2017-10-30] MEDS: LACTATED RINGERS 1,000 ML IV SCH ×2 (05:57→22:26)
[2017-10-30] MEDS: LEVOTHYROXINE 25 MCG TAB PO SCH (05:58)
[2017-10-30 06:48] LABS: Glucose,Whole Blood 158 mg/dL (75-99)
--- NOTE | 2017-10-30 09:26 | P.PN ---
Subjective Progress Note Date: 10/29/17 Principal diagnosis: Abdominal pain 46-year-old male who has diabetes as well as type II with many Occasions that includes end-stage renal disease on peritoneal dialysis. Earlier this year as noted had difficulties with his infection of the peritoneal dialysis catheter this was removed and he has been on hemodialysis. He had complete healing of the abdominal infection headache. To note catheter dialysis replaced was doing well on his CAPD. However now comes to hospital with lack of drainage of his catheter increasing abdominal discomfort and just not feeling very well. Temperature maximum is been 100 and is not his significant chills. Today he is feeling a little more poorly and that with antibiotic therapies without significant nausea and emesis somewhat her is what he had last time. He is not having diarrhea. 10/28/2017 patient is feeling better today. Had dialysis yesterday which seems to resolve some of his uremic symptoms. He is awaiting surgery is not having nausea or emesis at this time. No fevers or chills. 10/29/2017 CAPD catheter revision complete and successful, other than ABD pain has no new complaints, nausea has resolved and able to eat. Nursing relates to good catheter function. Objective - Vital Signs Vital signs: Vital Signs Temp 98.2 F 10/30/17 07:00 Pulse 94 10/30/17 07:00 Resp 18 10/30/17 07:00 BP 132/77 10/30/17 07:00 Pulse Ox 90 L 10/30/17 01:59 Intake & Output 10/29/17 10/30/17 10/30/17 18:59 06:59 18:59 Intake Total 285 1690 120 Balance 285 1690 120 Weight 94 kg 94 kg Intake: IV 80 Sodium Chloride 0.9% 1, 80 000 ml @ 10 mls/hr IV . Q24H [facility] Rx#:[id number] Intake, IV Titration 160 160 Amount Lactated Ringers 1,000 ml 160 160 @ 20 mls/hr IV .Q24H [facility] Rx#:[id number] Oral 125 1450 120 Other: Voiding Method Toilet Toilet # Voids 4 - Exam 46-year-old male not feeling well tonight because of nausea HEENT: Anicteric conjunctiva are pink and moist nasal mucosa grossly intact without significant lesions, there is no thrush. Neck: The neck is supple without significant lymphadenopathy or thyromegaly. Lungs: Good bilateral air entry without significant crackles or wheezing. There is no significant bronchial sounds. There is no egophony or dullness. Heart: Regular rate and rhythm with an audible S1-S2, no S3 no S4. There is no significant murmur click or rub, PMI was nondisplaced. Abdomen: Positive bowel sounds soft and nontender without palpable masses or organomegaly. less distention to the abdomen Extremities: The upper extremities have excellent pulses they are symmetric, no significant petechiae or telangiectasia. No splinter hemorrhages were noted. Left lower extremity without difficulty at the residual limb. Ulceration to the right foot plantar is at 0.3 0.3 0.1 Neuro: Awake alert oriented to person place and time. There are no acute new gross focal sensory motor deficits. - Labs CBC & Chem 7: 10/29/17 07:21 10/29/17 07:21 Labs: Abnormal Lab Results - Last 24 Hours (Table) 10/29/17 10/29/17 10/29/17 Range/Units 11:19 16:33 21:33 POC Glucose (mg/dL) 101 H 111 H 107 H (75-99) mg/dL 10/30/17 Range/Units 06:43 POC Glucose (mg/dL) 158 H (75-99) mg/dL Microbiology - Last 24 Hours (Table) 10/29/17 15:15 Gram Stain - Preliminary Dialysate Body Fluid Culture - Preliminary 10/28/17 15:50 Gram Stain - Preliminary Peritoneal Fluid Body Fluid Culture - Preliminary 10/26/17 20:48 Gram Stain - Final Peritoneal Fluid Body Fluid Culture - Final Staphylococcus epidermidis 10/26/17 10:33 Blood Culture - Preliminary Blood No Growth after 72 hours Laboratory Results WBC 7.8 k/uL (3.8-10.6) 10/29/17 07:21 RBC 3.86 m/uL (4.30-5.90) L 10/29/17 07:21 Hgb 10.2 gm/dL (13.0-17.5) L 10/29/17 07:21 Hct 33.6 % (39.0-53.0) L 10/29/17 07:21 MCV 87.0 fL (80.0-100.0) 10/29/17 07:21 MCH 26.5 pg (25.0-35.0) 10/29/17 07:21 MCHC 30.4 g/dL (31.0-37.0) L 10/29/17 07:21 RDW 15.5 % (11.5-15.5) 10/29/17 07:21 Plt Count 433 k/uL (150-450) 10/29/17 07:21 Neutrophils % 78 % 10/29/17 07:21 Lymphocytes % 10 % 10/29/17 07:21 Monocytes % 8 % 10/29/17 07:21 Eosinophils % 2 % 10/29/17 07:21 Basophils % 0 % 10/29/17 07:21 Neutrophils # 6.1 k/uL (1.3-7.7) 10/29/17 07:21 Lymphocytes # 0.8 k/uL (1.0-4.8) L 10/29/17 07:21 Monocytes # 0.7 k/uL (0-1.0) 10/29/17 07:21 Eosinophils # 0.2 k/uL (0-0.7) 10/29/17 07:21 Basophils # 0.0 k/uL (0-0.2) 10/29/17 07:21 Hypochromasia Marked 10/29/17 07:21 Poikilocytosis Slight 10/29/17 07:21 PT 10.4 sec (9.0-12.0) 10/25/17 21:40 INR 1.1 (<1.2) 10/25/17 21:40 APTT 27.2 sec (22.0-30.0) 10/25/17 21:40 Sodium 136 mmol/L (137-145) L 10/29/17 07:21 Potassium 3.9 mmol/L (3.5-5.1) 10/29/17 07:21 Chloride 99 mmol/L (98-107) 10/29/17 07:21 Carbon Dioxide 21 mmol/L (22-30) L 10/29/17 07:21 Anion Gap 16 mmol/L 10/29/17 07:21 BUN 30 mg/dL (9-20) H 10/29/17 07:21 Creatinine 8.83 mg/dL (0.66-1.25) H* 10/29/17 07:21 Est GFR (CKD-EPI)AfAm 8 (>60 ml/min/1.73 sqM) 10/29/17 07:21 Est GFR (CKD-EPI)NonAf 7 (>60 ml/min/1.73 sqM) 10/29/17 07:21 Glucose 87 mg/dL (74-99) 10/29/17 07:21 POC Glucose (mg/dL) 158 mg/dL (75-99) H 10/30/17 06:43 POC Glu Compounding Pharmacy Technician Joy Gomez 10/30/17 06:[address] Glu mg/dL 148 10/26/17 09:25 Hemoglobin A1c 6.8 % (4.0-6.0) H 10/26/17 09:25 Plasma Lactic Acid Massimo 0.6 mmol/L (0.7-2.0) L 10/25/17 21:40 Calcium 7.9 mg/dL (8.4-10.2) L 10/29/17 07:21 Phosphorus 7.8 mg/dL (2.5-4.5) H 10/27/17 06:51 Magnesium 1.9 mg/dL (1.6-2.3) 10/29/17 07:21 Total Bilirubin 0.4 mg/dL (0.2-1.3) 10/29/17 07:21 AST 17 U/L (17-59) 10/29/17 07:21 ALT 27 U/L (21-72) 10/29/17 07:21 Alkaline Phosphatase 186 U/L (38-126) H 10/29/17 07:21 Total Creatine Kinase 137 U/L (55-170) 10/26/17 09:25 CK-MB (CK-2) 6.3 ng/mL (0.0-2.4) H* 10/26/17 09:25 CK-MB (CK-2) Rel Index 4.6 10/26/17 09:25 Troponin I <0.012 ng/mL (0.000-0.034) 10/26/17 09:25 Total Protein 5.4 g/dL (6.3-8.2) L 10/29/17 07:21 Albumin 2.3 g/dL (3.5-5.0) L 10/29/17 07:21 Triglycerides 122 mg/dL (<150) 10/25/17 21:40 Cholesterol 131 mg/dL (<200) 10/25/17 21:40 LDL Cholesterol, Calc 71 mg/dL (0-99) 10/25/17 21:40 HDL Cholesterol 36 mg/dL (40-60) L 10/25/17 21:40 Amylase <30 U/L (30-110) L 10/25/17 21:40 Lipase 12 U/L (23-300) L 10/25/17 21:40 Fluid Source Dialysate 10/29/17 15:15 Fluid Color Red 10/29/17 15:15 Fluid Appearance Cloudy 10/29/17 15:15 Fluid RBC 3500 /uL 10/29/17 15:15 Fluid Nucleated Cells 200 /uL 10/29/17 15:15 Fluid Polynuclear WBCs 96 % 10/29/17 15:15 Fluid Mononuclear WBCs 4 % 10/29/17 15:15 C. difficile (EIA) Intrp Negative (Negative) 10/26/17 07:50 Hep Bs Antigen Non-Reactive (Non-Reactive) 10/28/17 06:44 Hep Bs Antibody Reactive (Non-Reactive) H 10/28/17 06:44 Hep Bs Antibody, Quant 37.8 mIU/mL 10/28/17 06:44 Microbiology 10/29/17 15:15 Dialysate Gram Stain - Preliminary 10/29/17 15:15 Dialysate Body Fluid Culture - Preliminary 10/28/17 15:50 Peritoneal Fluid Gram Stain - Preliminary 10/28/17 15:50 Peritoneal Fluid Body Fluid Culture - Preliminary 10/26/17 20:48 Peritoneal Fluid Gram Stain - Final 10/26/17 20:48 Peritoneal Fluid Body Fluid Culture - Final Staphylococcus epidermidis 10/26/17 10:33 Blood Blood Culture - Preliminary No Growth after 72 hours 10/28/17 15:50 Peritoneal Fluid Anaerobic Culture - Preliminary 10/28/17 15:50 Peritoneal Fluid Fungal Culture - Preliminary Assessment and Plan (1) Abdominal pain Narrative/Plan: 46-year-old male lungs sitting history diabetes mellitus type 2 with end state renal disease receiving CAPD. As noted does have a history of peritonitis requiring removal of the CAPD catheter and transition to hemodialysis. He has had complete resolution of the infection and the CAPD catheter was replaced. He now has had difficulties in that the fluid for dialysis was placed without any significant drainage. But evidence of an extensive fibrin sheath around the catheter. He is being followed by nephrology and received hemodialysis today, he has significant uremia which is likely in conjunction with the antibiotics is causing his significant nausea is he's had before. Hopefully as he has further dialysis uremia improves his current nausea will improve. The patient did have some fluid withdrawn from the peritoneal cavity cell count was only 45 the fluid was clear and colorless. His T-max is been 100 with no ongoing fevers and consequently it is unlikely that he has peritonitis. He has already been dosed with vancomycin, will discontinue ceftaz intensity appears to be causing him significant nausea and abdominal discomfort. Blood cultures are negative. He will be monitored 10/28/2017 the patient will go to the operating room today for further evaluation of this. Chest dialysis catheter and what appears to be some fibrin depositions in evaluation for infection. At this time he is afebrile. The white cell count was low, and the patient is not having steady and leukocytosis and is feeling somewhat better overall. At this time the patient does not appear to have peritonitis it would not provide further antibiotic therapy at this time. We'll discuss the findings of surgery with Dr. Adorno 10/29/2017 no evidence of infection at time of surgery, patient improving and the catheter is working well. Nephrology will guide discharge plan. the culture revealed a few AUTOMOTIVE PAINTER, and is a contamination and does not require antibiotic therapy. Current Visit: No Status: Acute Code(s): R10.9 - UNSPECIFIED ABDOMINAL PAIN SNOMED Code(s): 02422100 (2) End stage renal disease on dialysis Current Visit: Yes Status: Chronic Code(s): N18.6 - END STAGE RENAL DISEASE SNOMED Code(s): 425723392 (3) Hemodialysis catheter malfunction Current Visit: Yes Status: Acute Code(s): T82.41XA - BREAKDOWN (MECHANICAL) OF VASCULAR DIALYSIS CATHETER, INIT SNOMED Code(s): 66242816
--- NOTE | 2017-10-30 10:47 | P.PN ---
Subjective Patient is seen in follow-up for end-stage renal disease. He was maintained on peritoneal dialysis. However he's been having difficulty with draining. The PD catheter was noted to be patent. However he does have a fibrin sheath around the catheter. He is currently resting in bed. Denies vomiting or diarrhea. Denies chest pain or shortness of breath. Underwent laparoscopic revision of the PD catheter on October 28 which revealed multiple intra-abdominal adhesions. He is tolerating low-volume exchanges well except for some mild abdominal discomfort. Vital signs are stable. General: The patient appeared well nourished and normally developed. HEENT: Head exam is unremarkable. Neck is without jugular venous distension. LUNGS: Lungs are clear to auscultation and percussion. Breath sounds decreased. HEART: Rate and Rhythm are regular. First and second heart sounds normal. No murmurs, rubs or gallops. ABDOMEN: Abdominal exam reveals normal bowel sounds. Non-tender and non- distended. No evidence of peritonitis. EXTREMITITES: No clubbing, cyanosis, or edema. Left [id number] amputation noted. Objective - Vital Signs Vital signs: Vital Signs Temp 97.9 F 10/30/17 10:18 Pulse 78 10/30/17 10:18 Resp 18 10/30/17 07:00 BP 139/81 10/30/17 10:18 Pulse Ox 95 10/30/17 10:18 Intake & Output 10/29/17 10/30/17 10/30/17 18:59 06:59 18:59 Intake Total 285 1690 120 Balance 285 1690 120 Weight 94 kg 94 kg Intake: IV 80 Sodium Chloride 0.9% 1, 80 000 ml @ 10 mls/hr IV . Q24H [facility] Rx#:[id number] Intake, IV Titration 160 160 Amount Lactated Ringers 1,000 ml 160 160 @ 20 mls/hr IV .Q24H [facility] Rx#:[id number] Oral 125 1450 120 Other: Voiding Method Toilet Toilet # Voids 4 - Labs CBC & Chem 7: 10/29/17 07:21 10/29/17 07:21 Labs: Abnormal Lab Results - Last 24 Hours (Table) 10/29/17 10/29/17 10/29/17 Range/Units 11:19 16:33 21:33 POC Glucose (mg/dL) 101 H 111 H 107 H (75-99) mg/dL 10/30/17 Range/Units 06:43 POC Glucose (mg/dL) 158 H (75-99) mg/dL Microbiology - Last 24 Hours (Table) 10/29/17 15:15 Gram Stain - Preliminary Dialysate Body Fluid Culture - Preliminary 10/28/17 15:50 Gram Stain - Preliminary Peritoneal Fluid Body Fluid Culture - Preliminary 10/26/17 20:48 Gram Stain - Final Peritoneal Fluid Body Fluid Culture - Final Staphylococcus epidermidis 10/26/17 10:33 Blood Culture - Preliminary Blood No Growth after 72 hours Assessment and Plan Plan: Assessment: #1. End-stage renal disease maintained on peritoneal dialysis. #2. Abdominal pain due to inability to drain dialysate related to fibrin around the catheter. Although his white cell count was 45, the PMN count was 65 % which is suggestive of peritonitis - body fluid culture positive for staph epidermidis, likely a contamination. Repeat dialysate evaluation was done with a drain immediately after surgery so the elevated RBCs is expected. #3. Hypokalemia due to poor PO intake and hypomagnesemia. #4. Hypertension with chronic kidney disease. Controlled. #5. Chronic kidney disease mineral bone disease maintained on PhosLo and Renvela. #6. Insulin-dependent diabetes mellitus. #7. Metabolic acidosis secondary to chronic kidney disease. Improved. Plan: Status post IV vancomycin on October 26. IV Fortaz was also started on October 26 - being adjusted by ID. Follow-up cultures. Maintain oral sodium bicarbonate for now. Continue with 1 L exchanges every 4 hours at 2.5% solution. The fluid appears clear - will recheck cell count culture and Gram stain with current drain.
[2017-10-30] MEDS: SODIUM BICARBONATE TAB 650 MG TAB PO SCH ×2 (10:51→19:59)
[2017-10-30] MEDS: SEVELAMER 800 MG TAB PO SCH ×4 (10:51→20:00)
[2017-10-30] MEDS: INSULIN ASPART 100 UNIT/ML 1 ML 10 ML VIAL SQ SCH ×4 (10:52→19:59)
[2017-10-30] MEDS: CALCIUM ACETATE 667 MG CAP PO SCH ×3 (10:52→18:25)
[2017-10-30] MEDS: AMIODARONE 200 MG TAB PO SCH ×2 (10:52→22:22)
[2017-10-30] MEDS: GABAPENTIN 300 MG CAP PO SCH ×2 (10:52→22:21)
[2017-10-30] MEDS: FAMOTIDINE 20 MG TAB PO SCH (10:52)
[2017-10-30] MEDS: THIAMINE 100 MG TAB PO SCH (10:52)
[2017-10-30] MEDS: acetaZOLAMIDE 250 MG TAB PO SCH ×2 (10:53→19:58)
[2017-10-30] MEDS: amLODIPine 10 MG TAB PO SCH (10:53)
[2017-10-30] MEDS: AMMONIUM LACTATE 12% LOTION 225 GM BTL TOPICAL SCH ×2 (10:54→22:26)
[2017-10-30 11:48] LABS: Glucose,Whole Blood 147 mg/dL (75-99)
[2017-10-30 12:35] LABS: Appearance,BF Clear; Color,BF Colorless; Nucleated Cells, Body Fluid 15 /uL; RBC, Body Fluid 125 /uL
[2017-10-30 12:59] LABS: Mononuclear WBC,Body Fluid 36 %; Polynuclear WBC,Body Fluid 60 %; Total Cells Counted,Body Fluid 100
--- NOTE | 2017-10-30 13:34 | P.PN ---
Subjective per Tamela Tomlinson JUNIOR RECRUITER 46-year-old male who presented to the emergency room with a chief complaint of abdominal pain that has persisted over the last two days. Patient states he has been having difficulty getting his PD catheter to drain and has not been able to properly complete a PD exchange in two days. He reports abdominal distention and bloating. Reports generalized abdominal pain. He denies nausea or vomiting. Denies chest pain or pressure. Denies shortness of breath. The patient has a history of end stage renal disease, coronary artery disease, diabetes, DVT, GERD, hypertension, hyperlipidemia, SC, PVD with a left below the knee amputation. 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 The patient was hospitalized in 2016 for peritonitis. His PD catheter was removed and the patient was placed on hemodialysis. The patient was also hospitalized in July 2017 for nausea and vomiting. He left AMA during that admission. Dr. Adorno replaced his PD catheter in July 2017. Acute abdomen series: Pleural reaction at the left lung base. Nonacute abdomen. Laboratory data: WBC 9.8. Hemoglobin 11.6. Platelet count 444. Sodium 134. Potassium 3.0. BUN 37. Creatinine 9.5. Lactic acid: 0.6 AST 22. ALT 20. Alkaline phosphatase 137. The patients BP upon admission was 174/94. He was febrile with a temperature of 100.0 Heart rate 96. RR 20. The patient was admitted to the hospital under the care of Dr. Hough. 10/27/2017 Patient evaluated at the bedside. Patient states he is feeling nausea this morning and continues to have generalized abdominal pain. Patient underwent shuntogram by interventional radiology which revealed significant fibrin sheath around the catheter. Patient reports they were able to infuse about half of the dialysate yesterday but when nursing attempted to drain there was no outflow. Patient states he is going to have hemodialysis today. Patient still has permacath to right chest wall. Patient reports Dr. Adorno is going to evaluate the catheter tomorrow and possibly exchange it. magnesium this morning is 1.5 and is being replaced. Patient is afebrile. Vital signs remain stable. Patient states Dr. Sy debrided his right foot wound at the bedside yesterday but no documentation is available regarding this. 10/28/2017 Patient seen and examined at the bedside on rounds with Dr. Hough. Patient is awake and alert sitting up in the bed. Patient states he continues to have generalized abdominal pain. Patient underwent hemodialysis yesterday. Creatinine is 7.86, down from 10.0. Patient is scheduled evaluation of his peritoneal dialysis catheter with Dr. Adorno today. Case discussed with Dr. Mann who states patient may resume PD after catheter revision today if okay with Dr. Adorno. Otherwise, patient will have to continue HD. Patient is afebrile. Blood pressure 137/81. Patient is on room air with oxygen saturations greater than 92%. Heart rate is in the 80s. 10/29/2017: note per Dr. Aguilar. 10/30/2017: Patient sprained stable. He is undergoing peritoneal dialysis with small volumes. Nephrology is monitoring for infection.he is expecting to go home in the next several days. Objective - Vital Signs Vital signs: Vital Signs Temp 97.9 F 10/30/17 10:18 Pulse 78 10/30/17 10:18 Resp 18 10/30/17 07:00 BP 139/81 10/30/17 10:18 Pulse Ox 95 10/30/17 10:18 Intake & Output 10/29/17 10/30/17 10/30/17 18:59 06:59 18:59 Intake Total 285 1690 120 Balance 285 1690 120 Weight 94 kg 94 kg Intake: IV 80 Sodium Chloride 0.9% 1, 80 000 ml @ 10 mls/hr IV . Q24H [facility] Rx#:[id number] Intake, IV Titration 160 160 Amount Lactated Ringers 1,000 ml 160 160 @ 20 mls/hr IV .Q24H [facility] Rx#:[id number] Oral 125 1450 120 Other: Voiding Method Toilet Toilet # Voids 4 - Exam GENERAL: This is a 46-year-old male in no apparent distress at the time of examination. Pleasant and cooperative. RESPIRATORY: Clear to ausculation. No wheezes, rales, or rhonchi. No use of accessory muscles. Patient maintaining oxygen saturation greater than 92%. No chest wall tenderness is noted on palpation or with deep breathing. CARDIOVASCULAR: Permacath noted to right chest wall. Regular rate and rhythm. S1 and S2 noted. No systolic or diastolic murmur auscultated. No JVD noted. No S3 or S4 noted. GASTROINTESTINAL: Dialysis catheter noted. Bowel sounds auscultated x 4 quadrants. Pain and tenderness noted upon palpation. INTEGUMENTARY: No cyanosis. No jaundice. No rashes noted. No cellulitis noted. EXTREMITIES: Left BKA noted. Partial right foot amputation with chronic wound noted. - Labs CBC & Chem 7: 10/29/17 07:21 10/29/17 07:21 Labs: Abnormal Lab Results - Last 24 Hours (Table) 10/29/17 10/29/17 10/30/17 Range/Units 16:33 21:33 06:43 POC Glucose (mg/dL) 111 H 107 H 158 H (75-99) mg/dL 10/30/17 Range/Units 11:44 POC Glucose (mg/dL) 147 H (75-99) mg/dL Microbiology - Last 24 Hours (Table) 10/26/17 10:33 Blood Culture - Preliminary Blood No Growth after 96 hours 10/29/17 15:15 Gram Stain - Preliminary Dialysate Body Fluid Culture - Preliminary 10/28/17 15:50 Gram Stain - Preliminary Peritoneal Fluid Body Fluid Culture - Preliminary 10/26/17 20:48 Gram Stain - Final Peritoneal Fluid Body Fluid Culture - Final Staphylococcus epidermidis
[2017-10-30] MEDS: FOLIC ACID-VIT B COMPLEX-VIT C 1 CAP PO SCH (14:42)
[2017-10-30 17:17] LABS: Glucose,Whole Blood 155 mg/dL (75-99)
[2017-10-30 19:58] LABS: Glucose,Whole Blood 143 mg/dL (75-99)
[2017-10-30] MEDS: ATORVASTATIN 80 MG TAB PO SCH (19:59)
[2017-10-30] MEDS: INSULIN DETEMIR 100 UNIT/ML 10 ML VIAL SQ SCH (22:21)
[2017-10-30] MEDS: TAMSULOSIN 0.4 MG CAP.ER.24H PO SCH (22:22)
[2017-10-31] MEDS: DIALYSIS INTRAPERIT SCH ×4 (02:06→17:55)
[2017-10-31] MEDS: LEVOTHYROXINE 25 MCG TAB PO SCH (05:55)
[2017-10-31 06:38] LABS: Glucose,Whole Blood 170 mg/dL (75-99)
[2017-10-31 09:05] LABS: Calcium 7.6 mg/dL (8.4-10.2); Potassium 3.6 mmol/L (3.5-5.1)
[2017-10-31] MEDS: SEVELAMER 800 MG TAB PO SCH ×4 (09:37→20:24)
[2017-10-31] MEDS: CALCIUM ACETATE 667 MG CAP PO SCH ×3 (09:38→18:51)
[2017-10-31] MEDS: acetaZOLAMIDE 250 MG TAB PO SCH ×2 (09:39→20:23)
[2017-10-31] MEDS: GABAPENTIN 300 MG CAP PO SCH ×2 (09:40→20:27)
[2017-10-31] MEDS: amLODIPine 10 MG TAB PO SCH (09:40)
[2017-10-31] MEDS: FAMOTIDINE 20 MG TAB PO SCH (09:40)
[2017-10-31] MEDS: AMIODARONE 200 MG TAB PO SCH ×2 (09:40→20:26)
--- NOTE | 2017-10-31 09:40 | P.PN ---
Subjective Patient is seen in follow-up for end-stage renal disease. He was maintained on peritoneal dialysis. However he's been having difficulty with draining. The PD catheter was noted to be patent. However he does have a fibrin sheath around the catheter. He is currently resting in bed. Denies vomiting or diarrhea. Denies chest pain or shortness of breath. Underwent laparoscopic revision of the PD catheter on October 28 which revealed multiple intra-abdominal adhesions. He is tolerating low-volume exchanges well. Denies abdominal discomfort today. Vital signs are stable. General: The patient appeared well nourished and normally developed. HEENT: Head exam is unremarkable. Neck is without jugular venous distension. LUNGS: Lungs are clear to auscultation and percussion. Breath sounds decreased. HEART: Rate and Rhythm are regular. First and second heart sounds normal. No murmurs, rubs or gallops. ABDOMEN: Abdominal exam reveals normal bowel sounds. Non-tender and non- distended. No evidence of peritonitis. EXTREMITITES: No clubbing, cyanosis, or edema. Left [id number] amputation noted. Objective - Vital Signs Vital signs: Vital Signs Temp 97.5 F L 10/31/17 09:36 Pulse 77 10/31/17 09:36 Resp 16 10/31/17 09:36 BP 154/86 10/31/17 09:36 Pulse Ox 96 10/31/17 09:36 Intake & Output 10/30/17 10/31/17 10/31/17 18:59 06:59 18:59 Intake Total 120 440 240 Balance 120 440 240 Intake: IV 240 Sodium Chloride 0.9% 1, 240 000 ml @ 10 mls/hr IV . Q24H [facility] Rx#:[id number] Oral 120 240 Other 200 Other: Voiding Method CAPD CAPD CAPD # Voids 3 2 - Labs CBC & Chem 7: 10/29/17 07:21 10/29/17 07:21 Labs: Abnormal Lab Results - Last 24 Hours (Table) 10/30/17 10/30/17 10/30/17 Range/Units 11:44 16:45 19:57 POC Glucose (mg/dL) 147 H 155 H 143 H (75-99) mg/dL 10/31/17 Range/Units 06:36 POC Glucose (mg/dL) 170 H (75-99) mg/dL Microbiology - Last 24 Hours (Table) 10/30/17 10:45 Gram Stain - Preliminary Peritoneal Fluid Body Fluid Culture - Preliminary 10/28/17 15:50 Gram Stain - Preliminary Peritoneal Fluid Body Fluid Culture - Preliminary 10/28/17 15:50 Anaerobic Culture - Preliminary Peritoneal Fluid 10/29/17 15:15 Gram Stain - Preliminary Dialysate Body Fluid Culture - Preliminary 10/26/17 10:33 Blood Culture - Preliminary Blood No Growth after 96 hours Assessment and Plan Plan: Assessment: #1. End-stage renal disease maintained on peritoneal dialysis. #2. Abdominal pain due to inability to drain dialysate related to fibrin around the catheter. Although his white cell count was 45, the PMN count was 65 % which is suggestive of peritonitis - body fluid culture positive for staph epidermidis, likely a contamination. Repeat dialysate evaluation reveals only 15 white cells. #3. Hypokalemia due to poor PO intake and hypomagnesemia. #4. Hypertension with chronic kidney disease. Controlled. #5. Chronic kidney disease mineral bone disease maintained on PhosLo and Renvela. #6. Insulin-dependent diabetes mellitus. #7. Metabolic acidosis secondary to chronic kidney disease. Improved. Plan: Status post IV vancomycin on October 26. IV Fortaz was also started on October 26 - being adjusted by ID. Follow-up cultures. Maintain oral sodium bicarbonate for now. Increase volume of exchanges to 1.5 L every 4 hours at 2.5% solution. Depending on his ultrafiltration with PD, will consider doing a hemodialysis treatment tomorrow.
[2017-10-31] MEDS: SODIUM BICARBONATE TAB 650 MG TAB PO SCH ×2 (09:42→20:26)
[2017-10-31] MEDS: THIAMINE 100 MG TAB PO SCH (09:42)
[2017-10-31] MEDS ORDERED: POTASSIUM CHLORIDE ER 20 MEQ TAB.ER PO STA (10:04)
[2017-10-31 11:53] LABS: Glucose,Whole Blood 124 mg/dL (75-99)
[2017-10-31] MEDS: INSULIN ASPART 100 UNIT/ML 1 ML 10 ML VIAL SQ SCH ×4 (12:31→20:23)
[2017-10-31] MEDS: AMMONIUM LACTATE 12% LOTION 225 GM BTL TOPICAL SCH ×2 (12:32→20:27)
--- NOTE | 2017-10-31 12:37 | P.PN ---
Subjective per Tamela Tomlinson [employer] 46-year-old male who presented to the emergency room with a chief complaint of abdominal pain that has persisted over the last two days. Patient states he has been having difficulty getting his PD catheter to drain and has not been able to properly complete a PD exchange in two days. He reports abdominal distention and bloating. Reports generalized abdominal pain. He denies nausea or vomiting. Denies chest pain or pressure. Denies shortness of breath. The patient has a history of end stage renal disease, coronary artery disease, diabetes, DVT, GERD, hypertension, hyperlipidemia, [place], PVD with a left below the knee amputation. 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 The patient was hospitalized in 2016 for peritonitis. His PD catheter was removed and the patient was placed on hemodialysis. The patient was also hospitalized in July 2017 for nausea and vomiting. He left AMA during that admission. Dr. Adorno replaced his PD catheter in July 2017. Acute abdomen series: Pleural reaction at the left lung base. Nonacute abdomen. Laboratory data: WBC 9.8. Hemoglobin 11.6. Platelet count 444. Sodium 134. Potassium 3.0. BUN 37. Creatinine 9.5. Lactic acid: 0.6 AST 22. ALT 20. Alkaline phosphatase 137. The patients BP upon admission was 174/94. He was febrile with a temperature of 100.0 Heart rate 96. RR 20. The patient was admitted to the hospital under the care of Dr. Hough. 10/27/2017 Patient evaluated at the bedside. Patient states he is feeling nausea this morning and continues to have generalized abdominal pain. Patient underwent shuntogram by interventional radiology which revealed significant fibrin sheath around the catheter. Patient reports they were able to infuse about half of the dialysate yesterday but when nursing attempted to drain there was no outflow. Patient states he is going to have hemodialysis today. Patient still has permacath to right chest wall. Patient reports Dr. Adorno is going to evaluate the catheter tomorrow and possibly exchange it. magnesium this morning is 1.5 and is being replaced. Patient is afebrile. Vital signs remain stable. Patient states Dr. Sy debrided his right foot wound at the bedside yesterday but no documentation is available regarding this. 10/28/2017 Patient seen and examined at the bedside on rounds with Dr. Hough. Patient is awake and alert sitting up in the bed. Patient states he continues to have generalized abdominal pain. Patient underwent hemodialysis yesterday. Creatinine is 7.86, down from 10.0. Patient is scheduled evaluation of his peritoneal dialysis catheter with Dr. Adorno today. Case discussed with Dr. Mann who states patient may resume PD after catheter revision today if okay with Dr. Adorno. Otherwise, patient will have to continue HD. Patient is afebrile. Blood pressure 137/81. Patient is on room air with oxygen saturations greater than 92%. Heart rate is in the 80s. 10/29/2017: note per Dr. Aguilar. 10/30/2017: Patient stable. He is undergoing peritoneal dialysis with small volumes. Nephrology is monitoring for infection.he is expecting to go home in the next several days. 10/31/2017: Patient was out complaints today. He is in increase the volume of peritoneal dialysis fluid per Dr. Mann tomorrow. He may undergo hemodialysis once as well. His fluid is being monitored with the cell counts for evaluation of infection. Objective - Vital Signs Vital signs: Vital Signs Temp 97 F L 10/31/17 12:00 Pulse 82 10/31/17 12:00 Resp 16 10/31/17 12:00 BP 166/95 10/31/17 12:00 Pulse Ox 96 10/31/17 11:55 Intake & Output 10/30/17 10/31/17 10/31/17 18:59 06:59 18:59 Intake Total 120 440 240 Balance 120 440 240 Intake: IV 240 Sodium Chloride 0.9% 1, 240 000 ml @ 10 mls/hr IV . Q24H [facility] Rx#:[id number] Oral 120 240 Other 200 Other: Voiding Method CAPD CAPD CAPD # Voids 3 2 - Exam GENERAL: This is a 46-year-old male in no apparent distress at the time of examination. Pleasant and cooperative. RESPIRATORY: Clear to ausculation. No wheezes, rales, or rhonchi. No use of accessory muscles. Patient maintaining oxygen saturation greater than 92%. No chest wall tenderness is noted on palpation or with deep breathing. CARDIOVASCULAR: Permacath noted to right chest wall. Regular rate and rhythm. S1 and S2 noted. No systolic or diastolic murmur auscultated. No JVD noted. No S3 or S4 noted. GASTROINTESTINAL: Dialysis catheter noted. Bowel sounds auscultated x 4 quadrants. Pain and tenderness noted upon palpation. INTEGUMENTARY: No cyanosis. No jaundice. No rashes noted. No cellulitis noted. EXTREMITIES: Left BKA noted. Partial right foot amputation with chronic wound noted. - Labs CBC & Chem 7: 10/29/17 07:21 10/31/17 07:33 Labs: Abnormal Lab Results - Last 24 Hours (Table) 10/30/17 10/30/17 10/31/17 Range/Units 16:45 19:57 06:36 Sodium (137-145) mmol/L Chloride (98-107) mmol/L BUN (9-20) mg/dL Creatinine (0.66-1.25) mg/dL Glucose (74-99) mg/dL POC Glucose (mg/dL) 155 H 143 H 170 H (75-99) mg/dL Calcium (8.4-10.2) mg/dL 10/31/17 10/31/17 Range/Units 07:33 11:36 Sodium 134 L (137-145) mmol/L Chloride 97 L (98-107) mmol/L BUN 30 H (9-20) mg/dL Creatinine 9.10 H* (0.66-1.25) mg/dL Glucose 171 H (74-99) mg/dL POC Glucose (mg/dL) 124 H (75-99) mg/dL Calcium 7.6 L (8.4-10.2) mg/dL Microbiology - Last 24 Hours (Table) 10/30/17 10:45 Gram Stain - Preliminary Peritoneal Fluid Body Fluid Culture - Preliminary 10/28/17 15:50 Gram Stain - Preliminary Peritoneal Fluid Body Fluid Culture - Preliminary 10/28/17 15:50 Anaerobic Culture - Preliminary Peritoneal Fluid 10/29/17 15:15 Gram Stain - Preliminary Dialysate Body Fluid Culture - Preliminary 10/26/17 10:33 Blood Culture - Preliminary Blood No Growth after 96 hours Assessment and Plan Plan: ASSESSMENT: Abdominal pain, present on admission, due to inability to drain dialysate secondary to malfunctioning peritoneal dialysis catheter secondary to obstruction of fibrin sheath around the catheter. Peritonitis unlikely per nephrology Chronic kidney disease, end stage, GFR 6, maintained on peritoneal dialysis Hypertension History of diabetic gastroparesis Diabetes mellitus, type II, hemoglobin A1c 6.8% Diabetic ulcer to right plantar foot and right lateral leg, s/p surgical debridement on 10/12/[address] Sy and again on 10/26/2017 per patient Recent hospitalization, July 2017, for N/V, patient signed out AMA Previous hospitalization in 2017 for peritonitis, PD catheter was removed and patient was transitioned to hemodialysis Peripheral vascular disease with history of left BKA and right partial foot amputation History of seizures Coronary artery disease with previous myocardial infarction History of MRSA infection in left lower extremity PLAN: Nephrology on consult. Appreciate recommendations and input Patient to undergo evaluation of PD catheter today by Dr. Tila Sy, infectious disease, on consult. Appreciate recommendations and input Antibiotic regimen per ID Await results of blood cultures and urine culture Home meds as appropriate Novolog sliding scale AC/HS. Will discontinue Levemir secondary to BS 80-100s. Monitor labs GI prophylaxis: Pepcid 20mg PO BID Monitor vital signs and address as appropriate Further recommendations pending patient's course Due to patients left BKA and partial amputation of right foot along with multiple comorbidities, patient requires a wheelchair for assistance with mobility. Script signed for wheelchair Discharge plan: home with home care when stable
[2017-10-31] MEDS: FOLIC ACID-VIT B COMPLEX-VIT C 1 CAP PO SCH (13:32)
[2017-10-31] MEDS: METOCLOPRAMIDE 5 MG/ML 2 ML VIAL IVP PRN (14:06)
[2017-10-31] MEDS: MORPHINE ORAL SOLN 10 MG/5 ML CUP PO PRN (14:12)
[2017-10-31 17:44] LABS: Glucose,Whole Blood 138 mg/dL (75-99)
[2017-10-31 20:19] LABS: Glucose,Whole Blood 118 mg/dL (75-99)
[2017-10-31] MEDS: ATORVASTATIN 80 MG TAB PO SCH (20:23)
[2017-10-31] MEDS: INSULIN DETEMIR 100 UNIT/ML 10 ML VIAL SQ SCH (20:24)
[2017-10-31] MEDS: SODIUM CHLORIDE 0.9% 1,000 ML IV SCH (20:25)
[2017-10-31] MEDS: TAMSULOSIN 0.4 MG CAP.ER.24H PO SCH (20:26)
[2017-11-01] MEDS: DIALYSIS INTRAPERIT SCH ×4 (00:02→18:07)
[2017-11-01] MEDS: LACTATED RINGERS 1,000 ML IV SCH (00:03)
[2017-11-01] MEDS: METOCLOPRAMIDE 5 MG/ML 2 ML VIAL IVP PRN ×3 (02:31→18:27)
[2017-11-01] MEDS: LEVOTHYROXINE 25 MCG TAB PO SCH (05:46)
[2017-11-01 07:27] LABS: Calcium 7.4 mg/dL (8.4-10.2); Potassium 3.8 mmol/L (3.5-5.1)
[2017-11-01 08:14] LABS: Glucose,Whole Blood 151 mg/dL (75-99)
[2017-11-01] MEDS: INSULIN ASPART 100 UNIT/ML 1 ML 10 ML VIAL SQ SCH ×3 (08:30→17:56)
[2017-11-01] MEDS: AMIODARONE 200 MG TAB PO SCH (10:11)
[2017-11-01] MEDS: amLODIPine 10 MG TAB PO SCH (10:11)
[2017-11-01] MEDS: acetaZOLAMIDE 250 MG TAB PO SCH (10:11)
[2017-11-01] MEDS: CALCIUM ACETATE 667 MG CAP PO SCH ×3 (10:11→18:11)
[2017-11-01] MEDS: GABAPENTIN 300 MG CAP PO SCH (10:12)
[2017-11-01] MEDS: FAMOTIDINE 20 MG TAB PO SCH (10:12)
[2017-11-01] MEDS: SEVELAMER 800 MG TAB PO SCH ×3 (10:12→18:11)
[2017-11-01] MEDS: AMMONIUM LACTATE 12% LOTION 225 GM BTL TOPICAL SCH (10:12)
[2017-11-01] MEDS: SODIUM BICARBONATE TAB 650 MG TAB PO SCH (10:13)
[2017-11-01] MEDS: THIAMINE 100 MG TAB PO SCH (10:13)
--- NOTE | 2017-11-01 10:38 | P.PN ---
Subjective Patient is seen in follow-up for end-stage renal disease. He was maintained on peritoneal dialysis. However he's been having difficulty with draining. The PD catheter was noted to be patent. However he does have a fibrin sheath around the catheter. He is currently resting in bed. Denies chest pain or shortness of breath. Underwent laparoscopic revision of the PD catheter on October 28 which revealed multiple intra-abdominal adhesions. He is tolerating low-volume exchanges well. Denies abdominal discomfort today. He has been having vomiting and loose bowel movements. Vital signs are stable. General: The patient appeared well nourished and normally developed. HEENT: Head exam is unremarkable. Neck is without jugular venous distension. LUNGS: Lungs are clear to auscultation and percussion. Breath sounds decreased. HEART: Rate and Rhythm are regular. First and second heart sounds normal. No murmurs, rubs or gallops. ABDOMEN: Abdominal exam reveals normal bowel sounds. Non-tender and non- distended. No evidence of peritonitis. EXTREMITITES: No clubbing, cyanosis, or edema. Left [id number] amputation noted. Objective - Vital Signs Vital signs: Vital Signs Temp 97.9 F 11/01/17 08:07 Pulse 89 11/01/17 08:07 Resp 16 11/01/17 08:07 BP 136/89 11/01/17 08:07 Pulse Ox 95 11/01/17 08:07 Intake & Output 10/31/17 11/01/17 11/01/17 18:59 06:59 18:59 Intake Total 360 360 Balance 360 360 Weight 98 kg Intake: IV 80 Sodium Chloride 0.9% 1, 80 000 ml @ 10 mls/hr IV . Q24H [facility] Rx#:[id number] Intake, IV Titration 160 Amount Lactated Ringers 1,000 ml 160 @ 20 mls/hr IV .Q24H [facility] Rx#:[id number] Oral 360 120 Other: Voiding Method CAPD CAPD CAPD # Voids 3 2 - Labs CBC & Chem 7: 10/29/17 07:21 11/01/17 06:33 Labs: Abnormal Lab Results - Last 24 Hours (Table) 10/31/17 10/31/17 10/31/17 Range/Units 11:36 17:19 20:16 Sodium (137-145) mmol/L Chloride (98-107) mmol/L BUN (9-20) mg/dL Creatinine (0.66-1.25) mg/dL Glucose (74-99) mg/dL POC Glucose (mg/dL) 124 H 138 H 118 H (75-99) mg/dL Calcium (8.4-10.2) mg/dL 11/01/17 11/01/17 Range/Units 06:33 08:00 Sodium 134 L (137-145) mmol/L Chloride 96 L (98-107) mmol/L BUN 29 H (9-20) mg/dL Creatinine 9.14 H* (0.66-1.25) mg/dL Glucose 124 H (74-99) mg/dL POC Glucose (mg/dL) 151 H (75-99) mg/dL Calcium 7.4 L (8.4-10.2) mg/dL Microbiology - Last 24 Hours (Table) 10/29/17 15:15 Gram Stain - Preliminary Dialysate Body Fluid Culture - Preliminary 10/28/17 15:50 Gram Stain - Preliminary Peritoneal Fluid Body Fluid Culture - Preliminary 10/26/17 10:33 Blood Culture - Preliminary Blood No Growth after 120 hours 10/30/17 10:45 Gram Stain - Preliminary Peritoneal Fluid Body Fluid Culture - Preliminary Assessment and Plan Plan: Assessment: #1. End-stage renal disease maintained on peritoneal dialysis. #2. Abdominal pain due to inability to drain dialysate related to fibrin around the catheter. Although his white cell count was 45, the PMN count was 65 % which is suggestive of peritonitis - body fluid culture positive for staph epidermidis, likely a contamination. Repeat dialysate evaluation reveals only 15 white cells. #3. Hypokalemia due to poor PO intake and hypomagnesemia. #4. Hypertension with chronic kidney disease. Controlled. #5. Chronic kidney disease mineral bone disease maintained on PhosLo and Renvela. #6. Insulin-dependent diabetes mellitus. #7. Metabolic acidosis secondary to chronic kidney disease. Improved. Plan: Status post IV vancomycin on October 26. IV Fortaz was also started on October 26 - being adjusted by ID. Follow-up cultures. Maintain oral sodium bicarbonate for now. Increase volume of exchanges to 1.5 L every 6 hours at 2.5% solution. Hemodialysis treatment today with goal 2-3 L ultrafiltration.
[2017-11-01 11:47] LABS: Glucose,Whole Blood 129 mg/dL (75-99)
[2017-11-01] MEDS: FOLIC ACID-VIT B COMPLEX-VIT C 1 CAP PO SCH (13:20)
--- NOTE | 2017-11-01 13:44 | P.PN ---
Subjective Progress Note Date: 11/01/17 46-year-old male who presented to the emergency room with a chief complaint of abdominal pain that has persisted over the last two days. Patient states he has been having difficulty getting his PD catheter to drain and has not been able to properly complete a PD exchange in two days. He reports abdominal distention and bloating. Reports generalized abdominal pain. He denies nausea or vomiting. Denies chest pain or pressure. Denies shortness of breath. The patient has a history of end stage renal disease, coronary artery disease, diabetes, DVT, GERD, hypertension, hyperlipidemia, [place], PVD with a left below the knee amputation. 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 The patient was hospitalized in 2016 for peritonitis. His PD catheter was removed and the patient was placed on hemodialysis. The patient was also hospitalized in July 2017 for nausea and vomiting. He left AMA during that admission. Dr. Adorno replaced his PD catheter in July 2017. Acute abdomen series: Pleural reaction at the left lung base. Nonacute abdomen. Laboratory data: WBC 9.8. Hemoglobin 11.6. Platelet count 444. Sodium 134. Potassium 3.0. BUN 37. Creatinine 9.5. Lactic acid: 0.6 AST 22. ALT 20. Alkaline phosphatase 137. The patients BP upon admission was 174/94. He was febrile with a temperature of 100.0 Heart rate 96. RR 20. The patient was admitted to the hospital under the care of Dr. Hough. 10/27/2017 Patient evaluated at the bedside. Patient states he is feeling nausea this morning and continues to have generalized abdominal pain. Patient underwent shuntogram by interventional radiology which revealed significant fibrin sheath around the catheter. Patient reports they were able to infuse about half of the dialysate yesterday but when nursing attempted to drain there was no outflow. Patient states he is going to have hemodialysis today. Patient still has permacath to right chest wall. Patient reports Dr. Adorno is going to evaluate the catheter tomorrow and possibly exchange it. magnesium this morning is 1.5 and is being replaced. Patient is afebrile. Vital signs remain stable. Patient states Dr. Sy debrided his right foot wound at the bedside yesterday but no documentation is available regarding this. 10/28/2017 Patient seen and examined at the bedside on rounds with Dr. Hough. Patient is awake and alert sitting up in the bed. Patient states he continues to have generalized abdominal pain. Patient underwent hemodialysis yesterday. Creatinine is 7.86, down from 10.0. Patient is scheduled evaluation of his peritoneal dialysis catheter with Dr. Adorno today. Case discussed with Dr. Mann who states patient may resume PD after catheter revision today if okay with Dr. Adorno. Otherwise, patient will have to continue HD. Patient is afebrile. Blood pressure 137/81. Patient is on room air with oxygen saturations greater than 92%. Heart rate is in the 80s. 10/29/2017-10/31/2017-Notes per Dr. Hough/Lauren 11/01/2017 Patient seen and examined at the bedside. Patient underwent laparoscopic repositioning of dialysis catheter on 10/28/[address] Adorno. Patient has been tolerating low volume PD. Patient states PD was increased to 1500cc PD exchanges today. Patient to receive HD-ultrafiltration today. Patient states his abdominal pain and nausea have improved. He is hoping to be discharged home tomorrow. Objective - Vital Signs Vital signs: Vital Signs Temp 97.9 F 11/01/17 12:11 Pulse 78 11/01/17 12:11 Resp 16 11/01/17 12:11 BP 138/85 11/01/17 12:11 Pulse Ox 91 L 11/01/17 12:11 Intake & Output 10/31/17 11/01/17 11/01/17 18:59 06:59 18:59 Intake Total 360 360 Balance 360 360 Weight 98 kg Intake: IV 80 Sodium Chloride 0.9% 1, 80 000 ml @ 10 mls/hr IV . Q24H [facility] Rx#:[id number] Intake, IV Titration 160 Amount Lactated Ringers 1,000 ml 160 @ 20 mls/hr IV .Q24H [facility] Rx#:[id number] Oral 360 120 Other: Voiding Method CAPD CAPD CAPD # Voids 3 2 - Exam GENERAL: This is a 46-year-old male in no apparent distress at the time of examination. Pleasant and cooperative. HEENT: Head is atraumatic, normocephalic. Pupils are equal, round, and reactive to light. Sclerae anicteric. Conjunctivae are clear. Mucus membranes of the mouth are moist. Neck is supple. RESPIRATORY: Clear to ausculation. No wheezes, rales, or rhonchi. No use of accessory muscles. Patient maintaining oxygen saturation greater than 92%. No chest wall tenderness is noted on palpation or with deep breathing. CARDIOVASCULAR: Permacath noted to right chest wall. Regular rate and rhythm. S1 and S2 noted. No systolic or diastolic murmur auscultated. No JVD noted. No S3 or S4 noted. GASTROINTESTINAL: Dialysis catheter noted. Bowel sounds auscultated x 4 quadrants. Pain and tenderness noted upon palpation. INTEGUMENTARY: No cyanosis. No jaundice. No rashes noted. No cellulitis noted. EXTREMITIES: Left BKA noted. Partial right foot amputation with chronic wound noted. NEUROLOGIC: Cranial nerves II-XII intact. PSYCHIATRIC: Awake, alert, and oriented X 3. Appropriate affect. Intact judgement and insight. - Labs CBC & Chem 7: 10/29/17 07:21 11/01/17 06:33 Labs: Abnormal Lab Results - Last 24 Hours (Table) 10/31/17 10/31/17 11/01/17 Range/Units 17:19 20:16 06:33 Sodium 134 L (137-145) mmol/L Chloride 96 L (98-107) mmol/L BUN 29 H (9-20) mg/dL Creatinine 9.14 H* (0.66-1.25) mg/dL Glucose 124 H (74-99) mg/dL POC Glucose (mg/dL) 138 H 118 H (75-99) mg/dL Calcium 7.4 L (8.4-10.2) mg/dL 11/01/17 11/01/17 Range/Units 08:00 11:43 Sodium (137-145) mmol/L Chloride (98-107) mmol/L BUN (9-20) mg/dL Creatinine (0.66-1.25) mg/dL Glucose (74-99) mg/dL POC Glucose (mg/dL) 151 H 129 H (75-99) mg/dL Calcium (8.4-10.2) mg/dL Microbiology - Last 24 Hours (Table) 10/26/17 10:33 Blood Culture - Final Blood No Growth after 144 hours 10/30/17 10:45 Gram Stain - Preliminary Peritoneal Fluid Body Fluid Culture - Preliminary 10/29/17 15:15 Gram Stain - Preliminary Dialysate Body Fluid Culture - Preliminary 10/28/17 15:50 Gram Stain - Preliminary Peritoneal Fluid Body Fluid Culture - Preliminary Assessment and Plan Plan: ASSESSMENT: Abdominal pain x 2 days, present on admission, due to inability to drain dialysate secondary to malfunctioning peritoneal dialysis catheter secondary to obstruction of fibrin sheath around the catheter, s/p laparoscopic repositioning of PD catheter. Peritonitis unlikely per nephrology Chronic kidney disease, end stage, GFR 6, maintained on peritoneal dialysis Hypertension History of diabetic gastroparesis Diabetes mellitus, type II, hemoglobin A1c 6.8% Diabetic ulcer to right plantar foot and right lateral leg, s/p surgical debridement on 10/12/[address] Sy Recent hospitalization, July 2017, for N/V, patient signed out AMA Previous hospitalization in 2017 for peritonitis, PD catheter was removed and patient was transitioned to hemodialysis Peripheral vascular disease with history of left BKA and right partial foot amputation History of seizures Coronary artery disease with previous myocardial infarction History of MRSA infection in left lower extremity PLAN: Nephrology on consult. Appreciate recommendations and input Continue PD exchanges. Patient to receive HD ultrafiltration today. Dr. Sy, infectious disease, on consult. Appreciate recommendations and input Antibiotics DC per ID as peritonitis is unlikely Monitor labs GI prophylaxis: Pepcid 20mg PO BID Monitor vital signs and address as appropriate Further recommendations pending patient's course Due to patients left BKA and partial amputation of right foot along with multiple comorbidities, patient requires a wheelchair for assistance with mobility. Script signed for wheelchair Anticipate discharge home tomorrow if patient remains stable Nurse practitioner note has been reviewed by physician. Signing provider agrees with the documented findings, assessment, and plan of care.
[2017-11-01] MEDS ORDERED: HEPARIN SODIUM,PORCINE 5,000 UNIT/ML 1 ML VIAL ONE (17:00)
[2017-11-01 17:24] LABS: Glucose,Whole Blood 126 mg/dL (75-99)
[2017-11-01] MEDS: TAMSULOSIN 0.4 MG CAP.ER.24H PO SCH (18:11)
[2017-11-01] MEDS: MORPHINE ORAL SOLN 10 MG/5 ML CUP PO PRN (18:26)
[2017-11-01 20:39] LABS: Glucose,Whole Blood 178 mg/dL (75-99)
--- NOTE | 2017-11-01 23:45 | P.PN ---
Subjective Progress Note Date: 11/01/17 Principal diagnosis: Abdominal pain 46-year-old male who has diabetes as well as type II with many Occasions that includes end-stage renal disease on peritoneal dialysis. Earlier this year as noted had difficulties with his infection of the peritoneal dialysis catheter this was removed and he has been on hemodialysis. He had complete healing of the abdominal infection headache. To note catheter dialysis replaced was doing well on his CAPD. However now comes to hospital with lack of drainage of his catheter increasing abdominal discomfort and just not feeling very well. Temperature maximum is been 100 and is not his significant chills. Today he is feeling a little more poorly and that with antibiotic therapies without significant nausea and emesis somewhat her is what he had last time. He is not having diarrhea. 10/28/2017 patient is feeling better today. Had dialysis yesterday which seems to resolve some of his uremic symptoms. He is awaiting surgery is not having nausea or emesis at this time. No fevers or chills. 10/29/2017 CAPD catheter revision complete and successful, other than ABD pain has no new complaints, nausea has resolved and able to eat. Nursing relates to good catheter function. 11/01/2017 shows the patient to have further improvement. Abdominal pain is much improved. He was having some worsening uremia and had some nausea but no status post hemodialysis is feeling considerably better. He has been tolerating the filled and well very well through his CAPD catheter and has rapid drainage without problems. Objective - Vital Signs Vital signs: Vital Signs Temp 97.5 F L 11/01/17 17:56 Pulse 81 11/01/17 17:56 Resp 16 11/01/17 17:56 BP 142/92 11/01/17 17:56 Pulse Ox 92 L 11/01/17 17:56 Intake & Output 11/01/17 11/01/17 11/02/17 06:59 18:59 06:59 Intake Total 360 80 Balance 360 80 Weight 98 kg Intake: IV 80 80 Sodium Chloride 0.9% 1, 80 80 000 ml @ 10 mls/hr IV . Q24H [facility] Rx#:[id number] Intake, IV Titration 160 Amount Lactated Ringers 1,000 ml 160 @ 20 mls/hr IV .Q24H [facility] Rx#:[id number] Oral 120 Other: Voiding Method CAPD CAPD # Voids 2 - Exam 46-year-old male not feeling well tonight because of nausea HEENT: Anicteric conjunctiva are pink and moist nasal mucosa grossly intact without significant lesions, there is no thrush. Neck: The neck is supple without significant lymphadenopathy or thyromegaly. Lungs: Good bilateral air entry without significant crackles or wheezing. There is no significant bronchial sounds. There is no egophony or dullness. Heart: Regular rate and rhythm with an audible S1-S2, no S3 no S4. There is no significant murmur click or rub, PMI was nondisplaced. Abdomen: Positive bowel sounds soft and nontender without palpable masses or organomegaly. less distention to the abdomen Extremities: The upper extremities have excellent pulses they are symmetric, no significant petechiae or telangiectasia. No splinter hemorrhages were noted. Left lower extremity without difficulty at the residual limb. Ulceration to the right foot plantar is at 0.3 0.3 0.1 Neuro: Awake alert oriented to person place and time. There are no acute new gross focal sensory motor deficits. - Labs CBC & Chem 7: 10/29/17 07:21 11/01/17 06:33 Labs: Abnormal Lab Results - Last 24 Hours (Table) 11/01/17 11/01/17 11/01/17 Range/Units 06:33 08:00 11:43 Sodium 134 L (137-145) mmol/L Chloride 96 L (98-107) mmol/L BUN 29 H (9-20) mg/dL Creatinine 9.14 H* (0.66-1.25) mg/dL Glucose 124 H (74-99) mg/dL POC Glucose (mg/dL) 151 H 129 H (75-99) mg/dL Calcium 7.4 L (8.4-10.2) mg/dL 11/01/17 11/01/17 Range/Units 17:17 20:36 Sodium (137-145) mmol/L Chloride (98-107) mmol/L BUN (9-20) mg/dL Creatinine (0.66-1.25) mg/dL Glucose (74-99) mg/dL POC Glucose (mg/dL) 126 H 178 H (75-99) mg/dL Calcium (8.4-10.2) mg/dL Microbiology - Last 24 Hours (Table) 10/28/17 15:50 Anaerobic Culture - Final Peritoneal Fluid 10/29/17 15:15 Gram Stain - Preliminary Dialysate Body Fluid Culture - Preliminary 10/28/17 15:50 Gram Stain - Final Peritoneal Fluid Body Fluid Culture - Final 10/26/17 10:33 Blood Culture - Final Blood No Growth after 144 hours 10/30/17 10:45 Gram Stain - Preliminary Peritoneal Fluid Body Fluid Culture - Preliminary Laboratory Results WBC 7.8 k/uL (3.8-10.6) 10/29/17 07:21 RBC 3.86 m/uL (4.30-5.90) L 10/29/17 07:21 Hgb 10.2 gm/dL (13.0-17.5) L 10/29/17 07:21 Hct 33.6 % (39.0-53.0) L 10/29/17 07:21 MCV 87.0 fL (80.0-100.0) 10/29/17 07:21 MCH 26.5 pg (25.0-35.0) 10/29/17 07:21 MCHC 30.4 g/dL (31.0-37.0) L 10/29/17 07:21 RDW 15.5 % (11.5-15.5) 10/29/17 07:21 Plt Count 433 k/uL (150-450) 10/29/17 07:21 Neutrophils % 78 % 10/29/17 07:21 Lymphocytes % 10 % 10/29/17 07:21 Monocytes % 8 % 10/29/17 07:21 Eosinophils % 2 % 10/29/17 07:21 Basophils % 0 % 10/29/17 07:21 Neutrophils # 6.1 k/uL (1.3-7.7) 10/29/17 07:21 Lymphocytes # 0.8 k/uL (1.0-4.8) L 10/29/17 07:21 Monocytes # 0.7 k/uL (0-1.0) 10/29/17 07:21 Eosinophils # 0.2 k/uL (0-0.7) 10/29/17 07:21 Basophils # 0.0 k/uL (0-0.2) 10/29/17 07:21 Hypochromasia Marked 10/29/17 07:21 Poikilocytosis Slight 10/29/17 07:21 PT 10.4 sec (9.0-12.0) 10/25/17 21:40 INR 1.1 (<1.2) 10/25/17 21:40 APTT 27.2 sec (22.0-30.0) 10/25/17 21:40 Sodium 134 mmol/L (137-145) L 11/01/17 06:33 Potassium 3.8 mmol/L (3.5-5.1) 11/01/17 06:33 Chloride 96 mmol/L (98-107) L 11/01/17 06:33 Carbon Dioxide 24 mmol/L (22-30) 11/01/17 06:33 Anion Gap 14 mmol/L 11/01/17 06:33 BUN 29 mg/dL (9-20) H 11/01/17 06:33 Creatinine 9.14 mg/dL (0.66-1.25) H* 11/01/17 06:33 Est GFR (CKD-EPI)AfAm 7 (>60 ml/min/1.73 sqM) 11/01/17 06:33 Est GFR (CKD-EPI)NonAf 6 (>60 ml/min/1.73 sqM) 11/01/17 06:33 Glucose 124 mg/dL (74-99) H 11/01/17 06:33 POC Glucose (mg/dL) 178 mg/dL (75-99) H 11/01/17 20:36 POC Glu [employer] Jerri Mckay 11/01/17 20:[address] Glu mg/dL 148 10/26/17 09:25 Hemoglobin A1c 6.8 % (4.0-6.0) H 10/26/17 09:25 Plasma Lactic Acid Massimo 0.6 mmol/L (0.7-2.0) L 10/25/17 21:40 Calcium 7.4 mg/dL (8.4-10.2) L 11/01/17 06:33 Phosphorus 7.8 mg/dL (2.5-4.5) H 10/27/17 06:51 Magnesium 1.9 mg/dL (1.6-2.3) 10/29/17 07:21 Total Bilirubin 0.4 mg/dL (0.2-1.3) 10/29/17 07:21 AST 17 U/L (17-59) 10/29/17 07:21 ALT 27 U/L (21-72) 10/29/17 07:21 Alkaline Phosphatase 186 U/L (38-126) H 10/29/17 07:21 Total Creatine Kinase 137 U/L (55-170) 10/26/17 09:25 CK-MB (CK-2) 6.3 ng/mL (0.0-2.4) H* 10/26/17 09:25 CK-MB (CK-2) Rel Index 4.6 10/26/17 09:25 Troponin I <0.012 ng/mL (0.000-0.034) 10/26/17 09:25 Total Protein 5.4 g/dL (6.3-8.2) L 10/29/17 07:21 Albumin 2.3 g/dL (3.5-5.0) L 10/29/17 07:21 Triglycerides 122 mg/dL (<150) 10/25/17 21:40 Cholesterol 131 mg/dL (<200) 10/25/17 21:40 LDL Cholesterol, Calc 71 mg/dL (0-99) 10/25/17 21:40 HDL Cholesterol 36 mg/dL (40-60) L 10/25/17 21:40 Amylase <30 U/L (30-110) L 10/25/17 21:40 Lipase 12 U/L (23-300) L 10/25/17 21:40 Fluid Source Dialysate 10/30/17 10:45 Fluid Color Colorless 10/30/17 10:45 Fluid Appearance Clear 10/30/17 10:45 Fluid RBC 125 /uL 10/30/17 10:45 Fluid Nucleated Cells 15 /uL 10/30/17 10:45 Fluid Polynuclear WBCs 60 % 10/30/17 10:45 Fluid Mononuclear WBCs 36 % 10/30/17 10:45 Fluid Eosinophils 4 % 10/30/17 10:45 C. difficile (EIA) Intrp Negative (Negative) 10/26/17 07:50 Hep Bs Antigen Non-Reactive (Non-Reactive) 10/28/17 06:44 Hep Bs Antibody Reactive (Non-Reactive) H 10/28/17 06:44 Hep Bs Antibody, Quant 37.8 mIU/mL 10/28/17 06:44 Microbiology 10/28/17 15:50 Peritoneal Fluid Anaerobic Culture - Final 10/29/17 15:15 Dialysate Gram Stain - Preliminary 10/29/17 15:15 Dialysate Body Fluid Culture - Preliminary 10/28/17 15:50 Peritoneal Fluid Gram Stain - Final 10/28/17 15:50 Peritoneal Fluid Body Fluid Culture - Final 10/26/17 10:33 Blood Blood Culture - Final No Growth after 144 hours 10/30/17 10:45 Peritoneal Fluid Gram Stain - Preliminary 10/30/17 10:45 Peritoneal Fluid Body Fluid Culture - Preliminary 10/26/17 20:48 Peritoneal Fluid Gram Stain - Final 10/26/17 20:48 Peritoneal Fluid Body Fluid Culture - Final Staphylococcus epidermidis 10/28/17 15:50 Peritoneal Fluid Fungal Culture - Preliminary Assessment and Plan (1) Abdominal pain Narrative/Plan: 46-year-old male lungs sitting history diabetes mellitus type 2 with end state renal disease receiving CAPD. As noted does have a history of peritonitis requiring removal of the CAPD catheter and transition to hemodialysis. He has had complete resolution of the infection and the CAPD catheter was replaced. He now has had difficulties in that the fluid for dialysis was placed without any significant drainage. But evidence of an extensive fibrin sheath around the catheter. He is being followed by nephrology and received hemodialysis today, he has significant uremia which is likely in conjunction with the antibiotics is causing his significant nausea is he's had before. Hopefully as he has further dialysis uremia improves his current nausea will improve. The patient did have some fluid withdrawn from the peritoneal cavity cell count was only 45 the fluid was clear and colorless. His T-max is been 100 with no ongoing fevers and consequently it is unlikely that he has peritonitis. He has already been dosed with vancomycin, will discontinue ceftaz intensity appears to be causing him significant nausea and abdominal discomfort. Blood cultures are negative. He will be monitored 10/28/2017 the patient will go to the operating room today for further evaluation of this. Chest dialysis catheter and what appears to be some fibrin depositions in evaluation for infection. At this time he is afebrile. The white cell count was low, and the patient is not having steady and leukocytosis and is feeling somewhat better overall. At this time the patient does not appear to have peritonitis it would not provide further antibiotic therapy at this time. We'll discuss the findings of surgery with Dr. Adorno 10/29/2017 no evidence of infection at time of surgery, patient improving and the catheter is working well. Nephrology will guide discharge plan. the culture revealed a few [employer], and is a contamination and does not require antibiotic therapy. 11/01/2017 patient continues to have improvement. He had some nausea today with hemodialysis and improvement is uremia he is better and ate his dinner without difficulties. The case is discussed with perianesthesia rn and they agree there is no evidence of any peritonitis. We'll not need ongoing antibiotic therapy. Current Visit: No Status: Acute Code(s): R10.9 - UNSPECIFIED ABDOMINAL PAIN SNOMED Code(s): 31177673 (2) End stage renal disease on dialysis Current Visit: Yes Status: Chronic Code(s): N18.6 - END STAGE RENAL DISEASE SNOMED Code(s): 569921335 (3) Hemodialysis catheter malfunction Current Visit: Yes Status: Acute Code(s): T82.41XA - BREAKDOWN (MECHANICAL) OF VASCULAR DIALYSIS CATHETER, INIT SNOMED Code(s): 64590564
[2017-11-02] MEDS: DIALYSIS INTRAPERIT SCH ×4 (00:42→17:14)
[2017-11-02] MEDS: INSULIN DETEMIR 100 UNIT/ML 10 ML VIAL SQ SCH ×2 (00:43→23:07)
[2017-11-02] MEDS: TRIAMCINOLONE ACET 0.1% OINTMENT 15 GM TUBE TOPICAL SCH ×3 (00:43→23:07)
[2017-11-02] MEDS: GABAPENTIN 300 MG CAP PO SCH ×3 (00:43→23:07)
[2017-11-02] MEDS: INSULIN ASPART 100 UNIT/ML 1 ML 10 ML VIAL SQ SCH ×5 (00:44→23:07)
[2017-11-02] MEDS: AMIODARONE 200 MG TAB PO SCH ×3 (00:44→23:07)
[2017-11-02] MEDS: ATORVASTATIN 80 MG TAB PO SCH ×2 (00:44→23:07)
[2017-11-02] MEDS: SODIUM BICARBONATE TAB 650 MG TAB PO SCH ×3 (00:44→23:07)
[2017-11-02] MEDS: AMMONIUM LACTATE 12% LOTION 225 GM BTL TOPICAL SCH ×3 (00:44→23:07)
[2017-11-02] MEDS: acetaZOLAMIDE 250 MG TAB PO SCH ×3 (00:44→23:07)
[2017-11-02] MEDS: LACTATED RINGERS 1,000 ML IV SCH ×2 (00:45→23:08)
[2017-11-02] MEDS: SEVELAMER 800 MG TAB PO SCH ×5 (00:45→23:08)
[2017-11-02] MEDS: SODIUM CHLORIDE 0.9% 1,000 ML IV SCH ×2 (00:45→23:08)
[2017-11-02] MEDS: MORPHINE ORAL SOLN 10 MG/5 ML CUP PO PRN (01:32)
[2017-11-02] MEDS: METOCLOPRAMIDE 5 MG/ML 2 ML VIAL IVP PRN ×2 (01:32→18:25)
[2017-11-02] MEDS: LEVOTHYROXINE 25 MCG TAB PO SCH (06:31)
[2017-11-02 07:15] LABS: Glucose,Whole Blood 124 mg/dL (75-99)
[2017-11-02] MEDS: amLODIPine 10 MG TAB PO SCH (08:25)
[2017-11-02] MEDS: FAMOTIDINE 20 MG TAB PO SCH (08:25)
[2017-11-02] MEDS: THIAMINE 100 MG TAB PO SCH (08:25)
[2017-11-02] MEDS: CALCIUM ACETATE 667 MG CAP PO SCH ×3 (08:26→18:01)
--- NOTE | 2017-11-02 09:29 | P.PN ---
Subjective Patient is seen in follow-up for end-stage renal disease. He was maintained on peritoneal dialysis. However he's been having difficulty with draining. The PD catheter was noted to be patent. However he does have a fibrin sheath around the catheter. He is currently resting in bed. Denies chest pain or shortness of breath. Underwent laparoscopic revision of the PD catheter on October 28 which revealed multiple intra-abdominal adhesions. He is tolerating low-volume exchanges except still has pain with fills. Tolerated hemodialysis well yesterday. Vital signs are stable. General: The patient appeared well nourished and normally developed. HEENT: Head exam is unremarkable. Neck is without jugular venous distension. LUNGS: Lungs are clear to auscultation and percussion. Breath sounds decreased. HEART: Rate and Rhythm are regular. First and second heart sounds normal. No murmurs, rubs or gallops. ABDOMEN: Abdominal exam reveals normal bowel sounds. Non-tender and non- distended. No evidence of peritonitis. EXTREMITITES: No clubbing, cyanosis, or edema. Left [id number] amputation noted. Objective - Vital Signs Vital signs: Vital Signs Temp 98.4 F 11/02/17 08:03 Pulse 88 11/02/17 08:03 Resp 16 11/02/17 08:03 BP 129/85 11/02/17 08:03 Pulse Ox 94 L 11/02/17 08:03 Intake & Output 11/01/17 11/02/17 11/02/17 18:59 06:59 18:59 Intake Total 80 Balance 80 Weight 95.5 kg Intake: IV 80 Sodium Chloride 0.9% 1, 80 000 ml @ 10 mls/hr IV . Q24H [facility] Rx#:[id number] Other: Voiding Method CAPD CAPD CAPD # Voids 1 - Labs CBC & Chem 7: 10/29/17 07:21 11/01/17 06:33 Labs: Abnormal Lab Results - Last 24 Hours (Table) 11/01/17 11/01/17 11/01/17 Range/Units 11:43 17:17 20:36 POC Glucose (mg/dL) 129 H 126 H 178 H (75-99) mg/dL 11/02/17 Range/Units 06:53 POC Glucose (mg/dL) 124 H (75-99) mg/dL Microbiology - Last 24 Hours (Table) 10/28/17 15:50 Anaerobic Culture - Final Peritoneal Fluid 10/29/17 15:15 Gram Stain - Preliminary Dialysate Body Fluid Culture - Preliminary 10/28/17 15:50 Gram Stain - Final Peritoneal Fluid Body Fluid Culture - Final 10/26/17 10:33 Blood Culture - Final Blood No Growth after 144 hours 10/30/17 10:45 Gram Stain - Preliminary Peritoneal Fluid Body Fluid Culture - Preliminary Assessment and Plan Plan: Assessment: #1. End-stage renal disease maintained on peritoneal dialysis. #2. Abdominal pain due to inability to drain dialysate related to fibrin around the catheter. Although his white cell count was 45, the PMN count was 65 % which is suggestive of peritonitis - body fluid culture positive for staph epidermidis, likely a contamination. Repeat dialysate evaluation reveals only 15 white cells. #3. Hypokalemia due to poor PO intake and hypomagnesemia. #4. Hypertension with chronic kidney disease. Controlled. #5. Chronic kidney disease mineral bone disease maintained on PhosLo and Renvela. #6. Insulin-dependent diabetes mellitus. #7. Metabolic acidosis secondary to chronic kidney disease. Improved. Plan: Status post IV vancomycin on October 26. IV Fortaz was also started on October 26 - being adjusted by ID. Follow-up cultures. Maintain oral sodium bicarbonate for now. Hold off on peritoneal dialysis for now. Discussed case with surgery - potential removal of PD catheter or else will rest the abdomen for a week and resume peritoneal dialysis in about a week but low volume exchanges again. Patient at this time is leaning towards removal of the catheter and continuing with hemodialysis.
[2017-11-02 09:37] VITALS: BMI 29.3
[2017-11-02 11:54] LABS: Glucose,Whole Blood 127 mg/dL (75-99)
--- NOTE | 2017-11-02 13:56 | P.PN ---
Subjective Progress Note Date: 11/02/17 46-year-old male who presented to the emergency room with a chief complaint of abdominal pain that has persisted over the last two days. Patient states he has been having difficulty getting his PD catheter to drain and has not been able to properly complete a PD exchange in two days. He reports abdominal distention and bloating. Reports generalized abdominal pain. He denies nausea or vomiting. Denies chest pain or pressure. Denies shortness of breath. The patient has a history of end stage renal disease, coronary artery disease, diabetes, DVT, GERD, hypertension, hyperlipidemia, IA, PVD with a left below the knee amputation. 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 The patient was hospitalized in 2016 for peritonitis. His PD catheter was removed and the patient was placed on hemodialysis. The patient was also hospitalized in July 2017 for nausea and vomiting. He left AMA during that admission. Dr. Adorno replaced his PD catheter in July 2017. Acute abdomen series: Pleural reaction at the left lung base. Nonacute abdomen. Laboratory data: WBC 9.8. Hemoglobin 11.6. Platelet count 444. Sodium 134. Potassium 3.0. BUN 37. Creatinine 9.5. Lactic acid: 0.6 AST 22. ALT 20. Alkaline phosphatase 137. The patients BP upon admission was 174/94. He was febrile with a temperature of 100.0 Heart rate 96. RR 20. The patient was admitted to the hospital under the care of Dr. Hough. 10/27/2017 Patient evaluated at the bedside. Patient states he is feeling nausea this morning and continues to have generalized abdominal pain. Patient underwent shuntogram by interventional radiology which revealed significant fibrin sheath around the catheter. Patient reports they were able to infuse about half of the dialysate yesterday but when nursing attempted to drain there was no outflow. Patient states he is going to have hemodialysis today. Patient still has permacath to right chest wall. Patient reports Dr. Adorno is going to evaluate the catheter tomorrow and possibly exchange it. magnesium this morning is 1.5 and is being replaced. Patient is afebrile. Vital signs remain stable. Patient states Dr. Sy debrided his right foot wound at the bedside yesterday but no documentation is available regarding this. 10/28/2017 Patient seen and examined at the bedside on rounds with Dr. Hough. Patient is awake and alert sitting up in the bed. Patient states he continues to have generalized abdominal pain. Patient underwent hemodialysis yesterday. Creatinine is 7.86, down from 10.0. Patient is scheduled evaluation of his peritoneal dialysis catheter with Dr. Adorno today. Case discussed with Dr. Mann who states patient may resume PD after catheter revision today if okay with Dr. Adorno. Otherwise, patient will have to continue HD. Patient is afebrile. Blood pressure 137/81. Patient is on room air with oxygen saturations greater than 92%. Heart rate is in the 80s. 10/29/2017-10/31/2017-Notes per Dr. Hough/Lauren 11/01/2017 Patient seen and examined at the bedside. Patient underwent laparoscopic repositioning of dialysis catheter on 10/28/[address] Adorno. Patient has been tolerating low volume PD. Patient states PD was increased to 1500cc PD exchanges today. Patient to receive HD-ultrafiltration today. Patient states his abdominal pain and nausea have improved. He is hoping to be discharged home tomorrow. 11/02/2017 Patient seen and examined at the bedside. Patient states he continues to have pain with PD exchanges, specifically when volume was increased yesterday. Patient underwent HD with ultrafilration yesterday. Weight today is 95.5kg, down from 98kg. Patient states appetite is improving. Denies nausea or vomiting at this time. Patient states he is going to have his PD catheter removed tomorrow and is going to continue with HD. Objective - Vital Signs Vital signs: Vital Signs Temp 98.2 F 11/02/17 12:08 Pulse 80 11/02/17 12:08 Resp 15 11/02/17 12:08 BP 130/85 11/02/17 12:08 Pulse Ox 91 L 11/02/17 12:08 Intake & Output 11/01/17 11/02/17 11/02/17 18:59 06:59 18:59 Intake Total 80 Balance 80 Weight 95.5 kg 95.5 kg Intake: IV 80 Sodium Chloride 0.9% 1, 80 000 ml @ 10 mls/hr IV . Q24H [facility] Rx#:[id number] Other: Voiding Method CAPD CAPD CAPD # Voids 1 - Exam GENERAL: This is a 46-year-old male in no apparent distress at the time of examination. Pleasant and cooperative. HEENT: Head is atraumatic, normocephalic. Pupils are equal, round, and reactive to light. Sclerae anicteric. Conjunctivae are clear. Mucus membranes of the mouth are moist. Neck is supple. RESPIRATORY: Clear to ausculation. No wheezes, rales, or rhonchi. No use of accessory muscles. Patient maintaining oxygen saturation greater than 92%. No chest wall tenderness is noted on palpation or with deep breathing. CARDIOVASCULAR: Permacath noted to right chest wall. Regular rate and rhythm. S1 and S2 noted. No systolic or diastolic murmur auscultated. No JVD noted. No S3 or S4 noted. GASTROINTESTINAL: Dialysis catheter noted. Bowel sounds auscultated x 4 quadrants. Pain and tenderness noted upon palpation. INTEGUMENTARY: No cyanosis. No jaundice. No rashes noted. No cellulitis noted. EXTREMITIES: Left BKA noted. Partial right foot amputation with chronic wound noted. NEUROLOGIC: Cranial nerves II-XII intact. PSYCHIATRIC: Awake, alert, and oriented X 3. Appropriate affect. Intact judgement and insight. - Labs CBC & Chem 7: 10/29/17 07:21 11/01/17 06:33 Labs: Abnormal Lab Results - Last 24 Hours (Table) 11/01/17 11/01/17 11/02/17 Range/Units 17:17 20:36 06:53 POC Glucose (mg/dL) 126 H 178 H 124 H (75-99) mg/dL 11/02/17 Range/Units 11:51 POC Glucose (mg/dL) 127 H (75-99) mg/dL Microbiology - Last 24 Hours (Table) 10/30/17 10:45 Gram Stain - Preliminary Peritoneal Fluid Body Fluid Culture - Preliminary 10/28/17 15:50 Anaerobic Culture - Final Peritoneal Fluid 10/29/17 15:15 Gram Stain - Preliminary Dialysate Body Fluid Culture - Preliminary 10/28/17 15:50 Gram Stain - Final Peritoneal Fluid Body Fluid Culture - Final 10/26/17 10:33 Blood Culture - Final Blood No Growth after 144 hours Assessment and Plan Plan: ASSESSMENT: Abdominal pain x 2 days, present on admission, due to inability to drain dialysate secondary to malfunctioning peritoneal dialysis catheter secondary to obstruction of fibrin sheath around the catheter, s/p laparoscopic repositioning of PD catheter. Peritonitis unlikely per nephrology Chronic kidney disease, end stage, GFR 6, maintained on peritoneal dialysis Hypertension History of diabetic gastroparesis Diabetes mellitus, type II, hemoglobin A1c 6.8% Diabetic ulcer to right plantar foot and right lateral leg, s/p surgical debridement on 10/12/[address] Sy Recent hospitalization, July 2017, for N/V, patient signed out AMA Previous hospitalization in 2017 for peritonitis, PD catheter was removed and patient was transitioned to hemodialysis Peripheral vascular disease with history of left BKA and right partial foot amputation History of seizures Coronary artery disease with previous myocardial infarction History of MRSA infection in left lower extremity PLAN: Nephrology on consult. Appreciate recommendations and input Patient states he is going to have PD catheter removed tomorrow and will continue with HD. However, no surgical procedure has been ordered at this time. Dr. Sy, infectious disease, on consult. Appreciate recommendations and input Monitor labs Monitor vital signs and address as appropriate Further recommendations pending patient's course Possible discharge -Wednesday if patient remains stable Nurse practitioner note has been reviewed by physician. Signing provider agrees with the documented findings, assessment, and plan of care.
[2017-11-02] MEDS: FOLIC ACID-VIT B COMPLEX-VIT C 1 CAP PO SCH (14:12)
--- NOTE | 2017-11-02 15:04 | P.PN ---
Subjective Progress Note Date: 11/02/17 Principal diagnosis: Malfunctioning peritoneal dialysis catheter Patient apparently is having some discomfort any time the volume of dialysate fluid is increased. Pain is both with instillation and drainage. Pain is bilateral mid abdomen with radiation to the back. He is interested and catheter removal. Objective - Vital Signs Vital signs: Vital Signs Temp 98.2 F 11/02/17 12:08 Pulse 80 11/02/17 12:08 Resp 15 11/02/17 12:08 BP 130/85 11/02/17 12:08 Pulse Ox 91 L 11/02/17 12:08 Intake & Output 11/01/17 11/02/17 11/02/17 18:59 06:59 18:59 Intake Total 80 500 Balance 80 500 Weight 95.5 kg 95.5 kg Intake: IV 80 Sodium Chloride 0.9% 1, 80 000 ml @ 10 mls/hr IV . Q24H [facility] Rx#:[id number] Oral 500 Other: Voiding Method CAPD CAPD CAPD # Voids 1 - Exam Abdomen: Soft, nondistended, incisions clean and dry - Labs CBC & Chem 7: 10/29/17 07:21 11/01/17 06:33 Labs: Abnormal Lab Results - Last 24 Hours (Table) 11/01/17 11/01/17 11/02/17 Range/Units 17:17 20:36 06:53 POC Glucose (mg/dL) 126 H 178 H 124 H (75-99) mg/dL 11/02/17 Range/Units 11:51 POC Glucose (mg/dL) 127 H (75-99) mg/dL Microbiology - Last 24 Hours (Table) 10/30/17 10:45 Gram Stain - Preliminary Peritoneal Fluid Body Fluid Culture - Preliminary 10/28/17 15:50 Anaerobic Culture - Final Peritoneal Fluid 10/29/17 15:15 Gram Stain - Preliminary Dialysate Body Fluid Culture - Preliminary 10/28/17 15:50 Gram Stain - Final Peritoneal Fluid Body Fluid Culture - Final 10/26/17 10:33 Blood Culture - Final Blood No Growth after 144 hours Assessment and Plan (1) Peritoneal dialysis catheter in situ Narrative/Plan: Discussed options with the patient. His intention is to proceed with peritoneal dialysis catheter removal. Will schedule for tomorrow. Current Visit: No Status: Chronic Code(s): Z99.2 - DEPENDENCE ON RENAL DIALYSIS SNOMED Code(s): 339203694
[2017-11-02 16:50] LABS: Glucose,Whole Blood 128 mg/dL (75-99)
[2017-11-02] MEDS: TAMSULOSIN 0.4 MG CAP.ER.24H PO SCH (18:01)
[2017-11-02 21:16] LABS: Glucose,Whole Blood 130 mg/dL (75-99)
[2017-11-03] MEDS: DIALYSIS INTRAPERIT SCH ×5 (01:10→22:39)
[2017-11-03] MEDS: LEVOTHYROXINE 25 MCG TAB PO SCH (06:31)
[2017-11-03 06:48] LABS: Glucose,Whole Blood 78 mg/dL (75-99)
[2017-11-03] MEDS: METOCLOPRAMIDE 5 MG/ML 2 ML VIAL IVP PRN (07:19)
[2017-11-03 07:58] LABS: Calcium 7.8 mg/dL (8.4-10.2); Potassium 4.1 mmol/L (3.5-5.1)
[2017-11-03] MEDS: CALCIUM ACETATE 667 MG CAP PO SCH ×3 (08:15→18:15)
[2017-11-03] MEDS: INSULIN ASPART 100 UNIT/ML 1 ML 10 ML VIAL SQ SCH ×4 (08:15→21:31)
[2017-11-03] MEDS: SODIUM CHLORIDE 0.9% 1,000 ML IV SCH (09:01)
--- NOTE | 2017-11-03 10:45 | P.PN ---
Subjective Patient is seen in follow-up for end-stage renal disease. He was maintained on peritoneal dialysis. However he's been having difficulty with fills and draining. The PD catheter was noted to be patent. However he does have a fibrin sheath around the catheter. He is currently resting in bed. Denies chest pain or shortness of breath. Underwent laparoscopic revision of the PD catheter on October 28 which revealed multiple intra-abdominal adhesions. He is tolerating low-volume exchanges except still has pain with fills/draining. The PD catheter will be discontinued today. He was currently seen while undergoing hemodialysis which will now be continued on a Wednesday schedule. Vital signs are stable. General: The patient appeared well nourished and normally developed. HEENT: Head exam is unremarkable. Neck is without jugular venous distension. LUNGS: Lungs are clear to auscultation and percussion. Breath sounds decreased. HEART: Rate and Rhythm are regular. First and second heart sounds normal. No murmurs, rubs or gallops. ABDOMEN: Abdominal exam reveals normal bowel sounds. Non-tender and non- distended. No evidence of peritonitis. EXTREMITITES: No clubbing, cyanosis, or edema. Left [id number] amputation noted. Objective - Vital Signs Vital signs: Vital Signs Temp 98.8 F 11/03/17 08:28 Pulse 83 11/03/17 08:28 Resp 16 11/03/17 08:28 BP 134/79 11/03/17 08:28 Pulse Ox 92 L 11/03/17 08:28 Intake & Output 11/02/17 11/03/17 11/03/17 18:59 06:59 18:59 Intake Total 500 Balance 500 Weight 95.5 kg Intake: Oral 500 Other: Voiding Method CAPD Toilet Toilet CAPD CAPD # Voids 1 - Labs CBC & Chem 7: 10/29/17 07:21 11/03/17 07:20 Labs: Abnormal Lab Results - Last 24 Hours (Table) 11/02/17 11/02/17 11/02/17 Range/Units 11:51 16:47 21:13 Sodium (137-145) mmol/L BUN (9-20) mg/dL Creatinine (0.66-1.25) mg/dL POC Glucose (mg/dL) 127 H 128 H 130 H (75-99) mg/dL Calcium (8.4-10.2) mg/dL 11/03/17 Range/Units 07:20 Sodium 133 L (137-145) mmol/L BUN 21 H (9-20) mg/dL Creatinine 7.72 H* (0.66-1.25) mg/dL POC Glucose (mg/dL) (75-99) mg/dL Calcium 7.8 L (8.4-10.2) mg/dL Microbiology - Last 24 Hours (Table) 10/29/17 15:15 Gram Stain - Final Dialysate Body Fluid Culture - Final 10/30/17 10:45 Gram Stain - Preliminary Peritoneal Fluid Body Fluid Culture - Preliminary Assessment and Plan Plan: Assessment: #1. End-stage renal disease maintained on peritoneal dialysis. #2. Abdominal pain due to inability to drain dialysate related to fibrin around the catheter. Although his white cell count was 45, the PMN count was 65 % which is suggestive of peritonitis - body fluid culture positive for staph epidermidis, likely a contamination. Repeat dialysate evaluation reveals only 15 white cells. #3. Hypokalemia due to poor PO intake and hypomagnesemia. Improved. #4. Hypertension with chronic kidney disease. Controlled. #5. Chronic kidney disease mineral bone disease maintained on PhosLo and Renvela. #6. Insulin-dependent diabetes mellitus. #7. Metabolic acidosis secondary to chronic kidney disease. Improved. Plan: Status post IV vancomycin on October 26. IV Fortaz was also started on October 26 - being adjusted by ID. Follow-up cultures. Maintain oral sodium bicarbonate for now. Peritoneal dialysis catheter to be discontinued today. He will be maintained on hemodialysis on a Wednesday schedule. Outpatient dialysis has already been set up.
[2017-11-03] MEDS ORDERED: HEPARIN SODIUM,PORCINE 5,000 UNIT/ML 1 ML VIAL ONE (11:00)
[2017-11-03] MEDS: AMIODARONE 200 MG TAB PO SCH ×2 (11:09→21:43)
[2017-11-03] MEDS: acetaZOLAMIDE 250 MG TAB PO SCH ×2 (11:09→21:43)
[2017-11-03] MEDS: amLODIPine 10 MG TAB PO SCH (11:09)
[2017-11-03] MEDS: AMMONIUM LACTATE 12% LOTION 225 GM BTL TOPICAL SCH ×2 (11:09→21:43)
[2017-11-03] MEDS: THIAMINE 100 MG TAB PO SCH (11:10)
[2017-11-03] MEDS: FAMOTIDINE 20 MG TAB PO SCH (11:10)
[2017-11-03] MEDS: SEVELAMER 800 MG TAB PO SCH ×4 (11:10→21:45)
[2017-11-03] MEDS: GABAPENTIN 300 MG CAP PO SCH ×2 (11:10→21:44)
[2017-11-03] MEDS: SODIUM BICARBONATE TAB 650 MG TAB PO SCH ×2 (11:10→21:44)
[2017-11-03] MEDS: TRIAMCINOLONE ACET 0.1% OINTMENT 15 GM TUBE TOPICAL SCH ×2 (11:11→21:44)
[2017-11-03] MEDS ORDERED: IV FLUID CONTINUATION 990 ML IV ONE (11:30)
[2017-11-03] MEDS ORDERED: PROPOFOL 10 MG/ML 20 ML VIAL IV ONE (11:59)
[2017-11-03] MEDS ORDERED: LIDOCAINE 1% INJ 10MG/ML (20 ML MDV) ONE (11:59)
[2017-11-03] MEDS ORDERED: fentaNYL (PF) 50 MCG/ML 2 ML AMP ONE (11:59)
[2017-11-03] MEDS ORDERED: MIDAZOLAM 2 MG/2 ML VIAL ONE (11:59)
[2017-11-03] MEDS ORDERED: BUPIVACAINE (PF) 0.25% 30 ML VIAL SQ ONE ×2 (12:12)
--- NOTE | 2017-11-03 12:44 | P.OP ---
Date of Procedure: 11/03/17 Procedure(s) Performed: PREOPERATIVE DIAGNOSIS: Renal failure with malfunctioning catheter POSTOPERATIVE DIAGNOSIS: Same PROCEDURE: PD cath removal SURGEON: Tila EBL: 10 mL ANESTHESIA: Sedation and local COMPLICATIONS: None OPERATIVE PROCEDURE: Patient was placed in the supine position. The abdomen was prepped and draped in usual sterile fashion. The previous paramedian incision was re-incised after localizing the skin. The subcutaneous tissues were divided using electrocautery. Blunt dissection around the cuff that was present at the fascia and peritoneum took place. The cuff was fully mobilized. The catheter was removed from the peritoneal cavity. The outer cuff was dissected from the subcutaneous fascia using electrocautery. The catheter was cut on the other side of that cuff and the catheter was removed. The fascial defect was closed using a single [id number] 0 Vicryl stitch. The subcutaneous tissues were closed using 3-0 Vicryl sutures and the skin using 4- 0 Monocryl sutures. Steri-Strips and sterile dressings were applied. DISPOSITION: Stable to recovery room
[2017-11-03] MEDS: FOLIC ACID-VIT B COMPLEX-VIT C 1 CAP PO SCH (13:07)
[2017-11-03 13:40] LABS: Glucose,Whole Blood 83 mg/dL (75-99)
[2017-11-03 17:26] LABS: Glucose,Whole Blood 77 mg/dL (75-99)
[2017-11-03] MEDS: TAMSULOSIN 0.4 MG CAP.ER.24H PO SCH (18:14)
[2017-11-03 20:48] LABS: Glucose,Whole Blood 140 mg/dL (75-99)
[2017-11-03] MEDS: ONDANSETRON 4 MG/2 ML VIAL IVP PRN (21:26)
[2017-11-03] MEDS: INSULIN DETEMIR 100 UNIT/ML 10 ML VIAL SQ SCH (21:30)
[2017-11-03] MEDS: MORPHINE ORAL SOLN 10 MG/5 ML CUP PO PRN (21:39)
[2017-11-03] MEDS: ATORVASTATIN 80 MG TAB PO SCH (21:44)
[2017-11-03] MEDS: LACTATED RINGERS 1,000 ML IV SCH (21:45)
[2017-11-04] MEDS: DIALYSIS INTRAPERIT SCH (04:58)
[2017-11-04] MEDS: LEVOTHYROXINE 25 MCG TAB PO SCH (06:20)
[2017-11-04 07:24] LABS: Glucose,Whole Blood 82 mg/dL (75-99)
[2017-11-04 07:38] LABS: Calcium 7.9 mg/dL (8.4-10.2); Potassium 4.5 mmol/L (3.5-5.1)
[2017-11-04] MEDS: INSULIN ASPART 100 UNIT/ML 1 ML 10 ML VIAL SQ SCH ×4 (07:39→21:02)
[2017-11-04] MEDS: CALCIUM ACETATE 667 MG CAP PO SCH ×3 (07:53→17:50)
[2017-11-04] MEDS: SEVELAMER 800 MG TAB PO SCH ×4 (07:53→21:03)
[2017-11-04] MEDS: FAMOTIDINE 20 MG TAB PO SCH (07:54)
[2017-11-04] MEDS: GABAPENTIN 300 MG CAP PO SCH ×2 (07:54→21:02)
[2017-11-04] MEDS: amLODIPine 10 MG TAB PO SCH (07:55)
[2017-11-04] MEDS: acetaZOLAMIDE 250 MG TAB PO SCH ×2 (07:55→21:01)
[2017-11-04] MEDS: SODIUM BICARBONATE TAB 650 MG TAB PO SCH ×2 (07:55→21:03)
[2017-11-04] MEDS: AMIODARONE 200 MG TAB PO SCH ×2 (07:55→21:01)
[2017-11-04] MEDS: AMMONIUM LACTATE 12% LOTION 225 GM BTL TOPICAL SCH ×2 (09:40→21:02)
[2017-11-04] MEDS: TRIAMCINOLONE ACET 0.1% OINTMENT 15 GM TUBE TOPICAL SCH ×2 (09:41→21:03)
[2017-11-04] MEDS: THIAMINE 100 MG TAB PO SCH (09:41)
--- NOTE | 2017-11-04 10:58 | P.PN ---
Subjective Patient is seen in follow-up for end-stage renal disease. He was maintained on peritoneal dialysis. However he's been having difficulty with fills and draining. The PD catheter was noted to be patent. However he does have a fibrin sheath around the catheter. He is currently resting in bed. Denies chest pain or shortness of breath. Underwent laparoscopic revision of the PD catheter on October 28 which revealed multiple intra-abdominal adhesions. He is tolerating low-volume exchanges except still has pain with fills/draining. The PD catheter was discontinued yesterday. Patient is now maintained on hemodialysis on a Wednesday schedule. Vital signs are stable. General: The patient appeared well nourished and normally developed. HEENT: Head exam is unremarkable. Neck is without jugular venous distension. LUNGS: Lungs are clear to auscultation and percussion. Breath sounds decreased. HEART: Rate and Rhythm are regular. First and second heart sounds normal. No murmurs, rubs or gallops. ABDOMEN: Abdominal exam reveals normal bowel sounds. Non-tender and non- distended. No evidence of peritonitis. EXTREMITITES: No clubbing, cyanosis, or edema. Left [id number] amputation noted. Objective - Vital Signs Vital signs: Vital Signs Temp 99.1 F 11/04/17 07:45 Pulse 88 11/04/17 07:45 Resp 14 11/04/17 07:45 BP 137/67 11/04/17 07:45 Pulse Ox 91 L 11/04/17 07:45 Intake & Output 11/03/17 11/04/17 11/04/17 18:59 06:59 18:59 Intake Total 420 80 Output Total 10 Balance 410 80 Weight 94.5 kg Intake: IV 420 80 Sodium Chloride 0.9% 1, 80 80 000 ml @ 10 mls/hr IV . Q24H [facility] Rx#:[id number] Output: Estimated Blood Loss 10 Other: Voiding Method Toilet # Voids 2 - Labs CBC & Chem 7: 10/29/17 07:21 11/04/17 07:00 Labs: Abnormal Lab Results - Last 24 Hours (Table) 11/03/17 11/04/17 Range/Units 20:36 07:00 Sodium 132 L (137-145) mmol/L Carbon Dioxide 20 L (22-30) mmol/L BUN 24 H (9-20) mg/dL Creatinine 7.58 H* (0.66-1.25) mg/dL POC Glucose (mg/dL) 140 H (75-99) mg/dL Calcium 7.9 L (8.4-10.2) mg/dL Microbiology - Last 24 Hours (Table) 10/30/17 10:45 Gram Stain - Final Peritoneal Fluid Body Fluid Culture - Final Assessment and Plan Plan: Assessment: #1. End-stage renal disease maintained on hemodialysis on a Wednesday schedule. PD catheter was discontinued on October 2014. #2. Abdominal pain due to inability to drain dialysate related to fibrin around the catheter. Although his white cell count was 45, the PMN count was 65 % which is suggestive of peritonitis - body fluid culture positive for staph epidermidis, likely a contamination. Repeat dialysate evaluation reveals only 15 white cells. #3. Hypokalemia due to poor PO intake and hypomagnesemia. Improved. #4. Hypertension with chronic kidney disease. Controlled. #5. Chronic kidney disease mineral bone disease maintained on PhosLo and Renvela. #6. Insulin-dependent diabetes mellitus. #7. Metabolic acidosis secondary to chronic kidney disease. Plan: Status post IV vancomycin on October 26. IV Fortaz was also started on October 26 - being adjusted by ID. Follow-up cultures. Maintain oral sodium bicarbonate for now. He will be maintained on hemodialysis on a Wednesday schedule. Outpatient dialysis has already been set up. Since he only completed 30 minutes of dialysis yesterday, I will schedule him for a 2 hour treatment today and a regular treatment tomorrow.
[2017-11-04 11:49] LABS: Glucose,Whole Blood 115 mg/dL (75-99)
[2017-11-04] MEDS: FOLIC ACID-VIT B COMPLEX-VIT C 1 CAP PO SCH (14:07)
--- NOTE | 2017-11-04 14:31 | P.PN ---
Subjective Progress Note Date: 11/04/17 Principal diagnosis: Malfunctioning peritoneal dialysis catheter Patient still having some bilateral lower abdominal pain. He actually says the right lower quadrant worse than the left. No fevers. Undergoing hemodialysis currently. Objective - Vital Signs Vital signs: Vital Signs Temp 99.1 F 11/04/17 07:45 Pulse 88 11/04/17 07:45 Resp 14 11/04/17 07:45 BP 137/67 11/04/17 07:45 Pulse Ox 91 L 11/04/17 07:45 Intake & Output 11/03/17 11/04/17 11/04/17 18:59 06:59 18:59 Intake Total 420 80 Output Total 10 Balance 410 80 Weight 94.5 kg Intake: IV 420 80 Sodium Chloride 0.9% 1, 80 80 000 ml @ 10 mls/hr IV . Q24H [facility] Rx#:[id number] Output: Estimated Blood Loss 10 Other: Voiding Method Toilet # Voids 2 - Exam Mild lower abdominal tenderness, incision clean and dry - Labs CBC & Chem 7: 10/29/17 07:21 11/04/17 07:00 Labs: Abnormal Lab Results - Last 24 Hours (Table) 11/03/17 11/04/17 11/04/17 Range/Units 20:36 07:00 11:38 Sodium 132 L (137-145) mmol/L Carbon Dioxide 20 L (22-30) mmol/L BUN 24 H (9-20) mg/dL Creatinine 7.58 H* (0.66-1.25) mg/dL POC Glucose (mg/dL) 140 H 115 H (75-99) mg/dL Calcium 7.9 L (8.4-10.2) mg/dL Microbiology - Last 24 Hours (Table) 10/30/17 10:45 Gram Stain - Final Peritoneal Fluid Body Fluid Culture - Final Assessment and Plan (1) Peritoneal dialysis catheter in situ Narrative/Plan: Continue hemodialysis treatments. Monitor patient's complaints of pain. We'll reevaluate prior to discharge. Current Visit: No Status: Chronic Code(s): Z99.2 - DEPENDENCE ON RENAL DIALYSIS SNOMED Code(s): 270587723
[2017-11-04] MEDS ORDERED: HEPARIN SODIUM,PORCINE 5,000 UNIT/ML 1 ML VIAL ONE (15:00)
[2017-11-04 17:10] LABS: Glucose,Whole Blood 132 mg/dL (75-99)
--- NOTE | 2017-11-04 17:21 | P.PN ---
Subjective Progress Note Date: 11/04/17 Principal diagnosis: Malfunctioning peritoneal dialysis catheter Patient is postop day 1 removal of peritoneal dialysis catheter. Patient is currently being hemodialyzed His appetite has significantly improved, patient states well tired and he is actually feeling much better we'll continue to follow him closely Objective - Vital Signs Vital signs: Vital Signs Temp 97.4 F L 11/04/17 15:00 Pulse 75 11/04/17 15:00 Resp 16 11/04/17 15:00 BP 143/71 11/04/17 15:00 Pulse Ox 91 L 11/04/17 15:00 Intake & Output 11/03/17 11/04/17 11/04/17 18:59 06:59 18:59 Intake Total 420 80 Output Total 10 Balance 410 80 Weight 94.5 kg Intake: IV 420 80 Sodium Chloride 0.9% 1, 80 80 000 ml @ 10 mls/hr IV . Q24H [facility] Rx#:[id number] Output: Estimated Blood Loss 10 Other: Voiding Method Toilet # Voids 2 - Exam General: [Patient awake, alert and oriented times 3. Patient in no acute distress.] HEENT: [PERRL. EOMI. No pharyngeal erythema or exudate.] Neck: [No adenopathy.] Cardiac: [Heart regular in rate and rhythm. No S3. No S4. No clicks, rubs. No murmur.] Lungs: [Clear to auscultation bilaterally.] Abdomen: [No mass. No organomegaly. Bowel sounds presnt and normoactive in all 4 quadrants.] Extremes: [No edema no cyanosis , partial amputation of the right foot no significant edema bilaterally patient has decent posterior tibial pulses bilaterally : [] Musculoskeletal: [No joint erythema, edema or tenderness.] Skin: [No rash.] Neurologic: [No lateralizing deficits. CN II - XII grossly intact.] Lymphatic: [No adenopathy.] - Labs CBC & Chem 7: 10/29/17 07:21 11/04/17 07:00 Labs: Abnormal Lab Results - Last 24 Hours (Table) 11/03/17 11/04/17 11/04/17 Range/Units 20:36 07:00 11:38 Sodium 132 L (137-145) mmol/L Carbon Dioxide 20 L (22-30) mmol/L BUN 24 H (9-20) mg/dL Creatinine 7.58 H* (0.66-1.25) mg/dL POC Glucose (mg/dL) 140 H 115 H (75-99) mg/dL Calcium 7.9 L (8.4-10.2) mg/dL 11/04/17 Range/Units 17:05 Sodium (137-145) mmol/L Carbon Dioxide (22-30) mmol/L BUN (9-20) mg/dL Creatinine (0.66-1.25) mg/dL POC Glucose (mg/dL) 132 H (75-99) mg/dL Calcium (8.4-10.2) mg/dL Assessment and Plan (1) Chronic renal failure, stage 4 (severe) Current Visit: Yes Status: Acute Code(s): N18.4 - CHRONIC KIDNEY DISEASE, STAGE 4 (SEVERE) SNOMED Code(s): 49121715 Plan: Patient otherwise doing quite well Time with Patient: Greater than 30
[2017-11-04] MEDS: TAMSULOSIN 0.4 MG CAP.ER.24H PO SCH (17:50)
[2017-11-04 20:04] LABS: Glucose,Whole Blood 112 mg/dL (75-99)
[2017-11-04] MEDS: ATORVASTATIN 80 MG TAB PO SCH (21:02)
[2017-11-04] MEDS: INSULIN DETEMIR 100 UNIT/ML 10 ML VIAL SQ SCH (21:03)
[2017-11-04] MEDS: LACTATED RINGERS 1,000 ML IV SCH (21:03)
--- NOTE | 2017-11-05 00:39 | P.PN ---
Subjective Progress Note Date: 11/04/17 Principal diagnosis: Abdominal pain 46-year-old male who has diabetes as well as type II with many Occasions that includes end-stage renal disease on peritoneal dialysis. Earlier this year as noted had difficulties with his infection of the peritoneal dialysis catheter this was removed and he has been on hemodialysis. He had complete healing of the abdominal infection headache. To note catheter dialysis replaced was doing well on his CAPD. However now comes to hospital with lack of drainage of his catheter increasing abdominal discomfort and just not feeling very well. Temperature maximum is been 100 and is not his significant chills. Today he is feeling a little more poorly and that with antibiotic therapies without significant nausea and emesis somewhat her is what he had last time. He is not having diarrhea. 10/28/2017 patient is feeling better today. Had dialysis yesterday which seems to resolve some of his uremic symptoms. He is awaiting surgery is not having nausea or emesis at this time. No fevers or chills. 10/29/2017 CAPD catheter revision complete and successful, other than ABD pain has no new complaints, nausea has resolved and able to eat. Nursing relates to good catheter function. 11/01/2017 shows the patient to have further improvement. Abdominal pain is much improved. He was having some worsening uremia and had some nausea but no status post hemodialysis is feeling considerably better. He has been tolerating the filled and well very well through his CAPD catheter and has rapid drainage without problems. 11/04/2017 patient has had a change in his status. The peritoneal dialysis catheter has failed and now been removed. He is receiving hemodialysis and neck she is feeling somewhat better. If does well over the next 24 hours and dialysis will likely be discharged home after that. No new positive cultures. Pain control is adequate Objective - Vital Signs Vital signs: Vital Signs Temp 98.6 F 11/04/17 21:09 Pulse 73 11/04/17 21:09 Resp 16 11/04/17 21:09 BP 135/79 11/04/17 21:09 Pulse Ox 85 L 11/04/17 21:09 Intake & Output 11/04/17 11/04/17 11/05/17 06:59 18:59 06:59 Intake Total 80 30 Balance 80 30 Weight 94.5 kg Intake: IV 80 30 Sodium Chloride 0.9% 1, 80 30 000 ml @ 10 mls/hr IV . Q24H [facility] Rx#:[id number] Other: # Voids 2 - Exam 46-year-old male not feeling well tonight because of nausea HEENT: Anicteric conjunctiva are pink and moist nasal mucosa grossly intact without significant lesions, there is no thrush. Neck: The neck is supple without significant lymphadenopathy or thyromegaly. Lungs: Good bilateral air entry without significant crackles or wheezing. There is no significant bronchial sounds. There is no egophony or dullness. Heart: Regular rate and rhythm with an audible S1-S2, no S3 no S4. There is no significant murmur click or rub, PMI was nondisplaced. Abdomen: Positive bowel sounds soft and minimally tender without palpable masses or organomegaly. The distention is generally resolved in the peritoneal dialysis catheter has been removed Extremities: The upper extremities have excellent pulses they are symmetric, no significant petechiae or telangiectasia. No splinter hemorrhages were noted. Left lower extremity without difficulty at the residual limb. Ulceration to the right foot plantar is at 0.3 0.3 0.1 Neuro: Awake alert oriented to person place and time. There are no acute new gross focal sensory motor deficits. - Labs CBC & Chem 7: 10/29/17 07:21 11/04/17 07:00 Labs: Abnormal Lab Results - Last 24 Hours (Table) 11/04/17 11/04/17 11/04/17 Range/Units 07:00 11:38 17:05 Sodium 132 L (137-145) mmol/L Carbon Dioxide 20 L (22-30) mmol/L BUN 24 H (9-20) mg/dL Creatinine 7.58 H* (0.66-1.25) mg/dL POC Glucose (mg/dL) 115 H 132 H (75-99) mg/dL Calcium 7.9 L (8.4-10.2) mg/dL 11/04/17 Range/Units 20:03 Sodium (137-145) mmol/L Carbon Dioxide (22-30) mmol/L BUN (9-20) mg/dL Creatinine (0.66-1.25) mg/dL POC Glucose (mg/dL) 112 H (75-99) mg/dL Calcium (8.4-10.2) mg/dL Laboratory Results WBC 7.8 k/uL (3.8-10.6) 10/29/17 07:21 RBC 3.86 m/uL (4.30-5.90) L 10/29/17 07:21 Hgb 10.2 gm/dL (13.0-17.5) L 10/29/17 07:21 Hct 33.6 % (39.0-53.0) L 10/29/17 07:21 MCV 87.0 fL (80.0-100.0) 10/29/17 07: MCH 26.5 pg (25.0-35.0) 10/29/17 07: MCHC 30.4 g/dL (31.0-37.0) L 10/29/17 07:21 RDW 15.5 % (11.5-15.5) 10/29/17 07:21 Plt Count 433 k/uL (150-450) 10/29/17 07: Neutrophils % 78 % 10/29/17 07: Lymphocytes % 10 % 10/29/17 07: Monocytes % 8 % 10/29/17 07: Eosinophils % 2 % 10/29/17 07: Basophils % 0 % 10/29/17 07:21 Neutrophils # 6.1 k/uL (1.3-7.7) 10/29/17 07:21 Lymphocytes # 0.8 k/uL (1.0-4.8) L 10/29/17 07:21 Monocytes # 0.7 k/uL (0-1.0) 10/29/17 07: Eosinophils # 0.2 k/uL (0-0.7) 10/29/17 07: Basophils # 0.0 k/uL (0-0.2) 10/29/17 07:21 Hypochromasia Marked 10/29/17 07:21 Poikilocytosis Slight 10/29/17 07:21 PT 10.4 sec (9.0-12.0) 10/25/17 21:40 INR 1.1 (<1.2) 10/25/17 21:40 APTT 27.2 sec (22.0-30.0) 10/25/17 21:40 Sodium 132 mmol/L (137-145) L 11/04/17 07:00 Potassium 4.5 mmol/L (3.5-5.1) 11/04/17 07:00 Chloride 102 mmol/L (98-107) 11/04/17 07:00 Carbon Dioxide 20 mmol/L (22-30) L 11/04/17 07:00 Anion Gap 10 mmol/L 11/04/17 07:00 BUN 24 mg/dL (9-20) H 11/04/17 07:00 Creatinine 7.58 mg/dL (0.66-1.25) H* 11/04/17 07:00 Est GFR (CKD-EPI)AfAm 9 (>60 ml/min/1.73 sqM) 11/04/17 07:00 Est GFR (CKD-EPI)NonAf 8 (>60 ml/min/1.73 sqM) 11/04/17 07:00 Glucose 80 mg/dL (74-99) 11/04/17 07:00 POC Glucose (mg/dL) 112 mg/dL (75-99) H 11/04/17 20:03 POC Glu Geographic Information System Surveyor GAYATHRI Anjana Garcia 11/04/17 20:[address] Glu mg/dL 148 10/26/17 09:25 Hemoglobin A1c 6.8 % (4.0-6.0) H 10/26/17 09:25 Plasma Lactic Acid Massimo 0.6 mmol/L (0.7-2.0) L 10/25/17 21:40 Calcium 7.9 mg/dL (8.4-10.2) L 11/04/17 07:00 Phosphorus 7.8 mg/dL (2.5-4.5) H 10/27/17 06:51 Magnesium 1.9 mg/dL (1.6-2.3) 10/29/17 07:21 Total Bilirubin 0.4 mg/dL (0.2-1.3) 10/29/17 07:21 AST 17 U/L (17-59) 10/29/17 07:21 ALT 27 U/L (21-72) 10/29/17 07:21 Alkaline Phosphatase 186 U/L (38-126) H 10/29/17 07:21 Total Creatine Kinase 137 U/L (55-170) 10/26/17 09:25 CK-MB (CK-2) 6.3 ng/mL (0.0-2.4) H* 10/26/17 09:25 CK-MB (CK-2) Rel Index 4.6 10/26/17 09:25 Troponin I <0.012 ng/mL (0.000-0.034) 10/26/17 09:25 Total Protein 5.4 g/dL (6.3-8.2) L 10/29/17 07:21 Albumin 2.3 g/dL (3.5-5.0) L 10/29/17 07:21 Triglycerides 122 mg/dL (<150) 10/25/17 21:40 Cholesterol 131 mg/dL (<200) 10/25/17 21:40 LDL Cholesterol, Calc 71 mg/dL (0-99) 10/25/17 21:40 HDL Cholesterol 36 mg/dL (40-60) L 10/25/17 21:40 Amylase <30 U/L (30-110) L 10/25/17 21:40 Lipase 12 U/L (23-300) L 10/25/17 21:40 Fluid Source Dialysate 10/30/17 10:45 Fluid Color Colorless 10/30/17 10:45 Fluid Appearance Clear 10/30/17 10:45 Fluid RBC 125 /uL 10/30/17 10:45 Fluid Nucleated Cells 15 /uL 10/30/17 10:45 Fluid Polynuclear WBCs 60 % 10/30/17 10:45 Fluid Mononuclear WBCs 36 % 10/30/17 10:45 Fluid Eosinophils 4 % 10/30/17 10:45 C. difficile (EIA) Intrp Negative (Negative) 10/26/17 07:50 Hep Bs Antigen Non-Reactive (Non-Reactive) 11/01/17 14:20 Hep Bs Antibody Reactive (Non-Reactive) H 10/28/17 06:44 Hep Bs Antibody, Quant 37.8 mIU/mL 10/28/17 06:44 Microbiology 10/30/17 10:45 Peritoneal Fluid Gram Stain - Final 10/30/17 10:45 Peritoneal Fluid Body Fluid Culture - Final 10/29/17 15:15 Dialysate Gram Stain - Final 10/29/17 15:15 Dialysate Body Fluid Culture - Final 10/28/17 15:50 Peritoneal Fluid Anaerobic Culture - Final 10/28/17 15:50 Peritoneal Fluid Gram Stain - Final 10/28/17 15:50 Peritoneal Fluid Body Fluid Culture - Final 10/26/17 10:33 Blood Blood Culture - Final No Growth after 144 hours 10/26/17 20:48 Peritoneal Fluid Gram Stain - Final 10/26/17 20:48 Peritoneal Fluid Body Fluid Culture - Final Staphylococcus epidermidis 10/28/17 15:50 Peritoneal Fluid Fungal Culture - Preliminary Assessment and Plan (1) Abdominal pain Narrative/Plan: 46-year-old male lungs sitting history diabetes mellitus type 2 with end state renal disease receiving CAPD. As noted does have a history of peritonitis requiring removal of the CAPD catheter and transition to hemodialysis. He has had complete resolution of the infection and the CAPD catheter was replaced. He now has had difficulties in that the fluid for dialysis was placed without any significant drainage. But evidence of an extensive fibrin sheath around the catheter. He is being followed by nephrology and received hemodialysis today, he has significant uremia which is likely in conjunction with the antibiotics is causing his significant nausea is he's had before. Hopefully as he has further dialysis uremia improves his current nausea will improve. The patient did have some fluid withdrawn from the peritoneal cavity cell count was only 45 the fluid was clear and colorless. His T-max is been 100 with no ongoing fevers and consequently it is unlikely that he has peritonitis. He has already been dosed with vancomycin, will discontinue ceftaz intensity appears to be causing him significant nausea and abdominal discomfort. Blood cultures are negative. He will be monitored 10/28/2017 the patient will go to the operating room today for further evaluation of this. Chest dialysis catheter and what appears to be some fibrin depositions in evaluation for infection. At this time he is afebrile. The white cell count was low, and the patient is not having steady and leukocytosis and is feeling somewhat better overall. At this time the patient does not appear to have peritonitis it would not provide further antibiotic therapy at this time. We'll discuss the findings of surgery with Dr. Adorno 10/29/2017 no evidence of infection at time of surgery, patient improving and the catheter is working well. Nephrology will guide discharge plan. the culture revealed a few ACCOUNT EXEC[employer]IVE KEY ACCOUNTS, and is a contamination and does not require antibiotic therapy. 11/01/2017 patient continues to have improvement. He had some nausea today with hemodialysis and improvement is uremia he is better and ate his dinner without difficulties. The case is discussed with roofing foreman and they agree there is no evidence of any peritonitis. We'll not need ongoing antibiotic therapy. 11/04/2017 patient had change of his status and now has had the peritoneal dialysis catheter removed due to catheter malfunction. We'll be utilizing hemodialysis from this time forward. When she is improved he will continue his goal toward transplant. No active infection at this time. After the next cycles of hemodialysis will likely be discharged home. Continue to follow with winnings regarding the plantar ulceration is now much improved. Current Visit: No Status: Acute Code(s): R10.9 - UNSPECIFIED ABDOMINAL PAIN SNOMED Code(s): 02903578 (2) End stage renal disease on dialysis Current Visit: Yes Status: Chronic Code(s): N18.6 - END STAGE RENAL DISEASE SNOMED Code(s): 671842914 (3) Hemodialysis catheter malfunction Current Visit: Yes Status: Acute Code(s): T82.41XA - BREAKDOWN (MECHANICAL) OF VASCULAR DIALYSIS CATHETER, INIT SNOMED Code(s): 04633485
[2017-11-05] MEDS: LEVOTHYROXINE 25 MCG TAB PO SCH (05:44)
[2017-11-05 07:21] LABS: Glucose,Whole Blood 118 mg/dL (75-99)
--- NOTE | 2017-11-05 07:45 | P.PN ---
Subjective Patient is seen in follow-up for end-stage renal disease. He was maintained on peritoneal dialysis and was having difficulty with fills and draining. The PD catheter was noted to be patent. However he did have a fibrin sheath around the catheter. He is currently resting in bed. Denies chest pain or shortness of breath. Underwent laparoscopic revision of the PD catheter on October 28 which revealed multiple intra-abdominal adhesions. He was tolerating low- volume exchanges except still had pain with fills/draining. The PD catheter was discontinued November 03. Patient is now maintained on hemodialysis on a Wednesday schedule. Vital signs are stable. General: The patient appeared well nourished and normally developed. HEENT: Head exam is unremarkable. Neck is without jugular venous distension. LUNGS: Lungs are clear to auscultation and percussion. Breath sounds decreased. HEART: Rate and Rhythm are regular. First and second heart sounds normal. No murmurs, rubs or gallops. ABDOMEN: Abdominal exam reveals normal bowel sounds. Non-tender and non- distended. No evidence of peritonitis. EXTREMITITES: No clubbing, cyanosis, or edema. Left [id number] amputation noted. Objective - Vital Signs Vital signs: Vital Signs Temp 97.6 F 11/04/17 22:10 Pulse 77 11/04/17 22:10 Resp 16 11/04/17 22:10 BP 131/74 11/04/17 22:10 Pulse Ox 90 L 11/04/17 22:10 Intake & Output 11/04/17 11/05/17 11/05/17 18:59 06:59 18:59 Intake Total 30 590 Balance 30 590 Weight 94 kg Intake: IV 30 Sodium Chloride 0.9% 1, 30 000 ml @ 10 mls/hr IV . Q24H [facility] Rx#:[id number] Oral 590 Other: # Voids 2 - Labs CBC & Chem 7: 10/29/17 07:21 11/04/17 07:00 Labs: Abnormal Lab Results - Last 24 Hours (Table) 11/04/17 11/04/17 11/04/17 Range/Units 07:00 11:38 17:05 Sodium 132 L (137-145) mmol/L Carbon Dioxide 20 L (22-30) mmol/L BUN 24 H (9-20) mg/dL Creatinine 7.58 H* (0.66-1.25) mg/dL POC Glucose (mg/dL) 115 H 132 H (75-99) mg/dL Calcium 7.9 L (8.4-10.2) mg/dL 11/04/17 11/05/17 Range/Units 20:03 07:17 Sodium (137-145) mmol/L Carbon Dioxide (22-30) mmol/L BUN (9-20) mg/dL Creatinine (0.66-1.25) mg/dL POC Glucose (mg/dL) 112 H 118 H (75-99) mg/dL Calcium (8.4-10.2) mg/dL Assessment and Plan Plan: Assessment: #1. End-stage renal disease maintained on hemodialysis on a Wednesday schedule via P-cath. PD catheter was discontinued on October 2014. #2. Abdominal pain due to inability to drain dialysate related to fibrin around the catheter. Although his white cell count was 45, the PMN count was 65 % which is suggestive of peritonitis - body fluid culture positive for staph epidermidis, likely a contamination. Repeat dialysate evaluation reveals only 15 white cells. #3. Hypokalemia due to poor PO intake and hypomagnesemia. Improved. #4. Hypertension with chronic kidney disease. Controlled. #5. Chronic kidney disease mineral bone disease maintained on PhosLo and Renvela. #6. Insulin-dependent diabetes mellitus. #7. Metabolic acidosis secondary to chronic kidney disease. #8. Hypervolemic hyponatremia. Expect improvement postdialysis. Plan: Hemodialysis today with goal 3 L ultrafiltration. Maintain oral sodium bicarbonate for now. He will be maintained on hemodialysis on a Wednesday schedule. Outpatient dialysis has already been set up. Stable to be discharged home from nephrology standpoint after dialysis today.
[2017-11-05] MEDS: INSULIN ASPART 100 UNIT/ML 1 ML 10 ML VIAL SQ SCH ×4 (07:50→22:28)
[2017-11-05] MEDS ORDERED: ONDANSETRON 4 MG TAB PO PRN (09:10)
[2017-11-05] MEDS: CALCIUM ACETATE 667 MG CAP PO SCH ×3 (09:20→18:45)
[2017-11-05] MEDS: AMIODARONE 200 MG TAB PO SCH ×2 (09:20→22:27)
[2017-11-05] MEDS: GABAPENTIN 300 MG CAP PO SCH ×2 (09:20→22:28)
[2017-11-05] MEDS: SEVELAMER 800 MG TAB PO SCH ×4 (09:20→22:29)
[2017-11-05] MEDS: acetaZOLAMIDE 250 MG TAB PO SCH ×2 (09:20→22:27)
[2017-11-05] MEDS: amLODIPine 10 MG TAB PO SCH (09:20)
[2017-11-05] MEDS: FAMOTIDINE 20 MG TAB PO SCH (09:20)
[2017-11-05] MEDS: AMMONIUM LACTATE 12% LOTION 225 GM BTL TOPICAL SCH ×2 (09:20→22:28)
[2017-11-05] MEDS: TRIAMCINOLONE ACET 0.1% OINTMENT 15 GM TUBE TOPICAL SCH ×2 (09:21→22:29)
[2017-11-05] MEDS: SODIUM BICARBONATE TAB 650 MG TAB PO SCH ×2 (09:21→22:29)
[2017-11-05] MEDS: THIAMINE 100 MG TAB PO SCH (09:21)
[2017-11-05 09:24] LABS: Anisocytosis Slight; Basophils % (A) 0 %; Eosinophils # (A) 0.4 k/uL (0-0.7); Eosinophils % (A) 5 %; HCT 37.2 % (39.0-53.0); HGB 10.8 gm/dL (13.0-17.5); Hypochromasia Marked; Lymphocytes % (A) 11 %; MCH 25.6 pg (25.0-35.0); MCV 88.5 fL (80.0-100.0); Monocytes # (A) 0.6 k/uL (0-1.0); Monocytes % (A) 7 %; Neutrophils # (A) 7.2 k/uL (1.3-7.7); Neutrophils % (A) 77 %; Platelet Count 394 k/uL (150-450); RBC 4.21 m/uL (4.30-5.90); RDW 16.3 % (11.5-15.5); WBC 9.3 k/uL (3.8-10.6)
[2017-11-05 11:21] LABS: Glucose,Whole Blood 139 mg/dL (75-99)
[2017-11-05] MEDS: FOLIC ACID-VIT B COMPLEX-VIT C 1 CAP PO SCH (12:44)
[2017-11-05] MEDS: PROCHLORPERAZINE 10 MG TAB PO PRN (13:21)
--- NOTE | 2017-11-05 13:44 | P.PN ---
Subjective Progress Note Date: 11/05/17 Principal diagnosis: Malfunctioning peritoneal dialysis catheter Patient complaining of mild lower abdominal pain and diarrhea today. He also has had vomiting issues. White blood cell count normal. He is afebrile. Objective - Vital Signs Vital signs: Vital Signs Temp 98.4 F 11/05/17 08:11 Pulse 85 11/05/17 08:11 Resp 16 11/05/17 08:11 BP 165/85 11/05/17 08:11 Pulse Ox 91 L 11/05/17 08:11 Intake & Output 11/04/17 11/05/17 11/05/17 18:59 06:59 18:59 Intake Total 30 590 300 Balance 30 590 300 Weight 94 kg Intake: IV 30 Sodium Chloride 0.9% 1, 30 000 ml @ 10 mls/hr IV . Q24H [facility] Rx#:[id number] Oral 590 300 Other: # Voids 2 - Exam Abdomen: Soft, nondistended, incisions clean and dry, mild lower quadrant tenderness - Labs CBC & Chem 7: 11/05/17 08:59 11/04/17 07:00 Labs: Abnormal Lab Results - Last 24 Hours (Table) 11/04/17 11/04/17 11/05/17 Range/Units 17:05 20:03 07:17 RBC (4.30-5.90) m/uL Hgb (13.0-17.5) gm/dL Hct (39.0-53.0) % MCHC (31.0-37.0) g/dL RDW (11.5-15.5) % POC Glucose (mg/dL) 132 H 112 H 118 H (75-99) mg/dL 11/05/17 11/05/17 Range/Units 08:59 11:19 RBC 4.21 L (4.30-5.90) m/uL Hgb 10.8 L (13.0-17.5) gm/dL Hct 37.2 L (39.0-53.0) % MCHC 29.0 L (31.0-37.0) g/dL RDW 16.3 H (11.5-15.5) % POC Glucose (mg/dL) 139 H (75-99) mg/dL Assessment and Plan (1) Peritoneal dialysis catheter in situ Narrative/Plan: Continue diet as tolerated. If symptoms persist we'll consider CAT scan abdomen and pelvis. Current Visit: No Status: Chronic Code(s): Z99.2 - DEPENDENCE ON RENAL DIALYSIS SNOMED Code(s): 194307510
[2017-11-05 17:14] LABS: Glucose,Whole Blood 93 mg/dL (75-99)
[2017-11-05] MEDS: TAMSULOSIN 0.4 MG CAP.ER.24H PO SCH (18:45)
[2017-11-05 21:26] LABS: Glucose,Whole Blood 101 mg/dL (75-99)
[2017-11-05] MEDS: ATORVASTATIN 80 MG TAB PO SCH (22:28)
[2017-11-05] MEDS: INSULIN DETEMIR 100 UNIT/ML 10 ML VIAL SQ SCH (22:28)
[2017-11-06] MEDS ORDERED: hydrALAZINE HCL 20 MG/ML 1 ML VIAL IVP PRN (03:10)
[2017-11-06] MEDS ORDERED: ONDANSETRON 4 MG/2 ML VIAL IVP PRN (03:18)
[2017-11-06] MEDS: PROCHLORPERAZINE 10 MG TAB PO PRN (06:07)
[2017-11-06] MEDS: LEVOTHYROXINE 25 MCG TAB PO SCH (06:08)
[2017-11-06 07:06] LABS: Glucose,Whole Blood 83 mg/dL (75-99)
--- NOTE | 2017-11-06 08:36 | P.PN ---
Subjective Progress Note Date: 11/05/17 Principal diagnosis: Abdominal pain 46-year-old male who has diabetes as well as type II with many Occasions that includes end-stage renal disease on peritoneal dialysis. Earlier this year as noted had difficulties with his infection of the peritoneal dialysis catheter this was removed and he has been on hemodialysis. He had complete healing of the abdominal infection headache. To note catheter dialysis replaced was doing well on his CAPD. However now comes to hospital with lack of drainage of his catheter increasing abdominal discomfort and just not feeling very well. Temperature maximum is been 100 and is not his significant chills. Today he is feeling a little more poorly and that with antibiotic therapies without significant nausea and emesis somewhat her is what he had last time. He is not having diarrhea. 10/28/2017 patient is feeling better today. Had dialysis yesterday which seems to resolve some of his uremic symptoms. He is awaiting surgery is not having nausea or emesis at this time. No fevers or chills. 10/29/2017 CAPD catheter revision complete and successful, other than ABD pain has no new complaints, nausea has resolved and able to eat. Nursing relates to good catheter function. 11/01/2017 shows the patient to have further improvement. Abdominal pain is much improved. He was having some worsening uremia and had some nausea but no status post hemodialysis is feeling considerably better. He has been tolerating the filled and well very well through his CAPD catheter and has rapid drainage without problems. 11/04/2017 patient has had a change in his status. The peritoneal dialysis catheter has failed and now been removed. He is receiving hemodialysis and neck she is feeling somewhat better. If does well over the next 24 hours and dialysis will likely be discharged home after that. No new positive cultures. Pain control is adequate 11/05/2017 the patient was doing better. Tolerating his hemodialysis, eating well without significant troubles. However is now developed some nausea and emesis today is pressure in the time of his dialysis. Surgery has evaluated and likely be monitored overnight to ensure that he continues to improve. Pain control does not seem to be an issue. Objective - Vital Signs Vital signs: Vital Signs Temp 97.0 F L 11/06/17 02:00 Pulse 88 11/06/17 06:10 Resp 16 11/06/17 02:00 BP 172/82 11/06/17 06:10 Pulse Ox 87 L 11/06/17 02:00 Intake & Output 11/05/17 11/06/17 11/06/17 18:59 06:59 18:59 Intake Total 300 840 Balance 300 840 Intake: Oral 300 840 Other: Voiding Method Toilet # Voids 3 # Bowel Movements 1 - Exam 46-year-old male not feeling well tonight because of nausea HEENT: Anicteric conjunctiva are pink and moist nasal mucosa grossly intact without significant lesions, there is no thrush. Neck: The neck is supple without significant lymphadenopathy or thyromegaly. Lungs: Good bilateral air entry without significant crackles or wheezing. There is no significant bronchial sounds. There is no egophony or dullness. Heart: Regular rate and rhythm with an audible S1-S2, no S3 no S4. There is no significant murmur click or rub, PMI was nondisplaced. Abdomen: Positive bowel sounds soft and minimally tender without palpable masses or organomegaly. The distention is generally resolved in the peritoneal dialysis catheter has been removed Extremities: The upper extremities have excellent pulses they are symmetric, no significant petechiae or telangiectasia. No splinter hemorrhages were noted. Left lower extremity without difficulty at the residual limb. Ulceration to the right foot plantar is at 0.2 0.2 0.1cm improving Neuro: Awake alert oriented to person place and time. There are no acute new gross focal sensory motor deficits. - Labs CBC & Chem 7: 11/05/17 08:59 11/04/17 07:00 Labs: Abnormal Lab Results - Last 24 Hours (Table) 11/05/17 11/05/17 11/05/17 Range/Units 08:59 11:19 21:23 RBC 4.21 L (4.30-5.90) m/uL Hgb 10.8 L (13.0-17.5) gm/dL Hct 37.2 L (39.0-53.0) % MCHC 29.0 L (31.0-37.0) g/dL RDW 16.3 H (11.5-15.5) % POC Glucose (mg/dL) 139 H 101 H (75-99) mg/dL Laboratory Results WBC 9.3 k/uL (3.8-10.6) 11/05/17 08:59 RBC 4.21 m/uL (4.30-5.90) L 11/05/17 08:59 Hgb 10.8 gm/dL (13.0-17.5) L 11/05/17 08:59 Hct 37.2 % (39.0-53.0) L 11/05/17 08:59 MCV 88.5 fL (80.0-100.0) 11/05/17 08:59 MCH 25.6 pg (25.0-35.0) 11/05/17 08:59 MCHC 29.0 g/dL (31.0-37.0) L 11/05/17 08:59 RDW 16.3 % (11.5-15.5) H 11/05/17 08:59 Plt Count 394 k/uL (150-450) 11/05/17 08:59 Neutrophils % 77 % 11/05/17 08:59 Lymphocytes % 11 % 11/05/17 08:59 Monocytes % 7 % 11/05/17 08:59 Eosinophils % 5 % 11/05/17 08:59 Basophils % 0 % 11/05/17 08:59 Neutrophils # 7.2 k/uL (1.3-7.7) 11/05/17 08:59 Lymphocytes # 1.0 k/uL (1.0-4.8) 11/05/17 08:59 Monocytes # 0.6 k/uL (0-1.0) 11/05/17 08:59 Eosinophils # 0.4 k/uL (0-0.7) 11/05/17 08:59 Basophils # 0.0 k/uL (0-0.2) 11/05/17 08:59 Hypochromasia Marked 11/05/17 08:59 Poikilocytosis Slight 10/29/17 07:21 Anisocytosis Slight 11/05/17 08:59 PT 10.4 sec (9.0-12.0) 10/25/17 21:40 INR 1.1 (<1.2) 10/25/17 21:40 APTT 27.2 sec (22.0-30.0) 10/25/17 21:40 Sodium 132 mmol/L (137-145) L 11/04/17 07:00 Potassium 4.5 mmol/L (3.5-5.1) 11/04/17 07:00 Chloride 102 mmol/L (98-107) 11/04/17 07:00 Carbon Dioxide 20 mmol/L (22-30) L 11/04/17 07:00 Anion Gap 10 mmol/L 11/04/17 07:00 BUN 24 mg/dL (9-20) H 11/04/17 07:00 Creatinine 7.58 mg/dL (0.66-1.25) H* 11/04/17 07:00 Est GFR (CKD-EPI)AfAm 9 (>60 ml/min/1.73 sqM) 11/04/17 07:00 Est GFR (CKD-EPI)NonAf 8 (>60 ml/min/1.73 sqM) 11/04/17 07:00 Glucose 80 mg/dL (74-99) 11/04/17 07:00 POC Glucose (mg/dL) 83 mg/dL (75-99) 11/06/17 07:04 POC Glu Sample Builder ID Maribel Milan 11/06/17 07:[address] Glu mg/dL 148 10/26/17 09:25 Hemoglobin A1c 6.8 % (4.0-6.0) H 10/26/17 09:25 Plasma Lactic Acid Massimo 0.6 mmol/L (0.7-2.0) L 10/25/17 21:40 Calcium 7.9 mg/dL (8.4-10.2) L 11/04/17 07:00 Phosphorus 7.8 mg/dL (2.5-4.5) H 10/27/17 06:51 Magnesium 1.9 mg/dL (1.6-2.3) 10/29/17 07:21 Total Bilirubin 0.4 mg/dL (0.2-1.3) 10/29/17 07:21 AST 17 U/L (17-59) 10/29/17 07:21 ALT 27 U/L (21-72) 10/29/17 07:21 Alkaline Phosphatase 186 U/L (38-126) H 10/29/17 07:21 Total Creatine Kinase 137 U/L (55-170) 10/26/17 09:25 CK-MB (CK-2) 6.3 ng/mL (0.0-2.4) H* 10/26/17 09:25 CK-MB (CK-2) Rel Index 4.6 10/26/17 09:25 Troponin I <0.012 ng/mL (0.000-0.034) 10/26/17 09:25 Total Protein 5.4 g/dL (6.3-8.2) L 10/29/17 07:21 Albumin 2.3 g/dL (3.5-5.0) L 10/29/17 07:21 Triglycerides 122 mg/dL (<150) 10/25/17 21:40 Cholesterol 131 mg/dL (<200) 10/25/17 21:40 LDL Cholesterol, Calc 71 mg/dL (0-99) 10/25/17 21:40 HDL Cholesterol 36 mg/dL (40-60) L 10/25/17 21:40 Amylase <30 U/L (30-110) L 10/25/17 21:40 Lipase 12 U/L (23-300) L 10/25/17 21:40 Fluid Source Dialysate 10/30/17 10:45 Fluid Color Colorless 10/30/17 10:45 Fluid Appearance Clear 10/30/17 10:45 Fluid RBC 125 /uL 10/30/17 10:45 Fluid Nucleated Cells 15 /uL 10/30/17 10:45 Fluid Polynuclear WBCs 60 % 10/30/17 10:45 Fluid Mononuclear WBCs 36 % 10/30/17 10:45 Fluid Eosinophils 4 % 10/30/17 10:45 C. difficile (EIA) Intrp Negative (Negative) 10/26/17 07:50 Hep Bs Antigen Non-Reactive (Non-Reactive) 11/01/17 14:20 Hep Bs Antibody Reactive (Non-Reactive) H 10/28/17 06:44 Hep Bs Antibody, Quant 37.8 mIU/mL 10/28/17 06:44 Microbiology 10/30/17 10:45 Peritoneal Fluid Gram Stain - Final 10/30/17 10:45 Peritoneal Fluid Body Fluid Culture - Final 10/29/17 15:15 Dialysate Gram Stain - Final 10/29/17 15:15 Dialysate Body Fluid Culture - Final 10/28/17 15:50 Peritoneal Fluid Anaerobic Culture - Final 10/28/17 15:50 Peritoneal Fluid Gram Stain - Final 10/28/17 15:50 Peritoneal Fluid Body Fluid Culture - Final 10/26/17 10:33 Blood Blood Culture - Final No Growth after 144 hours 10/26/17 20:48 Peritoneal Fluid Gram Stain - Final 10/26/17 20:48 Peritoneal Fluid Body Fluid Culture - Final Staphylococcus epidermidis 10/28/17 15:50 Peritoneal Fluid Fungal Culture - Preliminary Assessment and Plan (1) Abdominal pain Narrative/Plan: 46-year-old male lungs sitting history diabetes mellitus type 2 with end state renal disease receiving CAPD. As noted does have a history of peritonitis requiring removal of the CAPD catheter and transition to hemodialysis. He has had complete resolution of the infection and the CAPD catheter was replaced. He now has had difficulties in that the fluid for dialysis was placed without any significant drainage. But evidence of an extensive fibrin sheath around the catheter. He is being followed by nephrology and received hemodialysis today, he has significant uremia which is likely in conjunction with the antibiotics is causing his significant nausea is he's had before. Hopefully as he has further dialysis uremia improves his current nausea will improve. The patient did have some fluid withdrawn from the peritoneal cavity cell count was only 45 the fluid was clear and colorless. His T-max is been 100 with no ongoing fevers and consequently it is unlikely that he has peritonitis. He has already been dosed with vancomycin, will discontinue ceftaz intensity appears to be causing him significant nausea and abdominal discomfort. Blood cultures are negative. He will be monitored 10/28/2017 the patient will go to the operating room today for further evaluation of this. Chest dialysis catheter and what appears to be some fibrin depositions in evaluation for infection. At this time he is afebrile. The white cell count was low, and the patient is not having steady and leukocytosis and is feeling somewhat better overall. At this time the patient does not appear to have peritonitis it would not provide further antibiotic therapy at this time. We'll discuss the findings of surgery with Dr. Adorno 10/29/2017 no evidence of infection at time of surgery, patient improving and the catheter is working well. Nephrology will guide discharge plan. the culture revealed a few [employer], and is a contamination and does not require antibiotic therapy. 11/01/2017 patient continues to have improvement. He had some nausea today with hemodialysis and improvement is uremia he is better and ate his dinner without difficulties. The case is discussed with plant tender and they agree there is no evidence of any peritonitis. We'll not need ongoing antibiotic therapy. 11/04/2017 patient had change of his status and now has had the peritoneal dialysis catheter removed due to catheter malfunction. We'll be utilizing hemodialysis from this time forward. When she is improved he will continue his goal toward transplant. No active infection at this time. After the next cycles of hemodialysis will likely be discharged home. Continue to follow with winnings regarding the plantar ulceration is now much improved. 11/05/2017 the patient was doing somewhat better and getting ready for discharge to home but is now developed some nausea and emesis. Being watched by surgery and nephrology. Hopefully he will have further improvement and will be discharged tomorrow. Continue local wound care with the timothy to the foot issue following the wound healing Center. We'll expect that foot ulceration to heal rapidly. No evidence of any peritonitis was found and will not need ongoing antibiotic therapy Current Visit: No Status: Acute Code(s): R10.9 - UNSPECIFIED ABDOMINAL PAIN SNOMED Code(s): 92163995 (2) End stage renal disease on dialysis Current Visit: Yes Status: Chronic Code(s): N18.6 - END STAGE RENAL DISEASE SNOMED Code(s): 475696269 (3) Hemodialysis catheter malfunction Current Visit: Yes Status: Acute Code(s): T82.41XA - BREAKDOWN (MECHANICAL) OF VASCULAR DIALYSIS CATHETER, INIT SNOMED Code(s): 16570345
--- NOTE | 2017-11-06 09:23 | P.PN ---
Subjective Progress Note Date: 11/06/17 Principal diagnosis: Malfunctioning peritoneal dialysis catheter Patient apparently did have further episodes of vomiting overnight. He feels somewhat better now. Pain is improved. He is afebrile. He lost his IV access. Objective - Vital Signs Vital signs: Vital Signs Temp 97.0 F L 11/06/17 02:00 Pulse 88 11/06/17 06:10 Resp 16 11/06/17 02:00 BP 172/82 11/06/17 06:10 Pulse Ox 87 L 11/06/17 02:00 Intake & Output 11/05/17 11/06/17 11/06/17 18:59 06:59 18:59 Intake Total 300 840 Balance 300 840 Intake: Oral 300 840 Other: Voiding Method Toilet # Voids 3 # Bowel Movements 1 - Exam Abdomen: Soft, nondistended, mild incisional tenderness - Labs CBC & Chem 7: 11/05/17 08:59 11/04/17 07:00 Labs: Abnormal Lab Results - Last 24 Hours (Table) 11/05/17 11/05/17 11/05/17 Range/Units 08:59 11:19 21:23 RBC 4.21 L (4.30-5.90) m/uL Hgb 10.8 L (13.0-17.5) gm/dL Hct 37.2 L (39.0-53.0) % MCHC 29.0 L (31.0-37.0) g/dL RDW 16.3 H (11.5-15.5) % POC Glucose (mg/dL) 139 H 101 H (75-99) mg/dL Assessment and Plan (1) Peritoneal dialysis catheter in situ Narrative/Plan: Continue encouraging oral intake. If IV access was necessary consult vascular surgery given his history of multiple catheter placement. Current Visit: No Status: Chronic Code(s): Z99.2 - DEPENDENCE ON RENAL DIALYSIS SNOMED Code(s): 271188661
[2017-11-06] MEDS: LACTATED RINGERS 1,000 ML IV SCH ×2 (09:34→21:21)
[2017-11-06] MEDS: INSULIN ASPART 100 UNIT/ML 1 ML 10 ML VIAL SQ SCH ×4 (11:07→21:20)
[2017-11-06] MEDS: CALCIUM ACETATE 667 MG CAP PO SCH ×3 (11:09→18:24)
[2017-11-06] MEDS: AMMONIUM LACTATE 12% LOTION 225 GM BTL TOPICAL SCH ×2 (11:10→21:20)
[2017-11-06] MEDS: THIAMINE 100 MG TAB PO SCH (11:11)
[2017-11-06] MEDS: FAMOTIDINE 20 MG TAB PO SCH (11:11)
[2017-11-06] MEDS: SEVELAMER 800 MG TAB PO SCH ×4 (11:11→21:21)
[2017-11-06] MEDS: SODIUM BICARBONATE TAB 650 MG TAB PO SCH ×2 (11:11→21:26)
[2017-11-06] MEDS: TRIAMCINOLONE ACET 0.1% OINTMENT 15 GM TUBE TOPICAL SCH ×2 (11:12→21:20)
[2017-11-06] MEDS: acetaZOLAMIDE 250 MG TAB PO SCH ×2 (11:13→21:19)
[2017-11-06] MEDS: amLODIPine 10 MG TAB PO SCH (11:14)
[2017-11-06] MEDS: AMIODARONE 200 MG TAB PO SCH ×2 (11:14→21:27)
[2017-11-06] MEDS: GABAPENTIN 300 MG CAP PO SCH ×2 (11:15→21:27)
[2017-11-06 11:55] LABS: Glucose,Whole Blood 73 mg/dL (75-99)
[2017-11-06] MEDS: FOLIC ACID-VIT B COMPLEX-VIT C 1 CAP PO SCH (12:45)
[2017-11-06] MEDS ORDERED: PROCHLORPERAZINE SUPPOSITORY 25 MG SUPP RECTAL PRN (13:26)
--- NOTE | 2017-11-06 13:29 | P.PN ---
Subjective Principal diagnosis: This is a 46-year-old male with ESRD on dialysis with the peritoneal dialysis catheter there was not functioning well. Additionally there was peritonitis. Catheter was discontinued on 11/03/2017. He has been switched over to hemodialysis with a permacath. He has been dialyzed 4 times a week and last 2 days in a row. His blood flows have been in the 400 range. He is complaining of abdominal discomfort nausea vomiting. Poor appetite he has a low-grade temperature of 99. White count is normal. He is moving his bowels. No chest pain cough. No pain at the site of the permacath. Is known with diabetes amputation of right partial foot and left BKA in the past. He denies having had back diabetic gastroparesis but is history and physical mentions that he has it. Objective - Vital Signs Vital signs: Vital Signs Temp 97.0 F L 11/06/17 02:00 Pulse 88 11/06/17 06:10 Resp 16 11/06/17 02:00 BP 172/82 11/06/17 06:10 Pulse Ox 87 L 11/06/17 02:00 Intake & Output 11/05/17 11/06/17 11/06/17 18:59 06:59 18:59 Intake Total 300 840 Balance 300 840 Intake: Oral 300 840 Other: Voiding Method Toilet # Voids 3 # Bowel Movements 1 Awake alert but seems to be ill-looking and in pain HEENT exam no JVP neck is supple no facial asymmetry Lungs are clear to auscultation percussion good air entry bilaterally Heart sounds are unremarkable no murmur rub gallop Abdomen soft and mildly tender. No rebound noted. Nondistended Extremity exam reveals amputated lower extremities minimal to trace edema. Neurologically awake alert oriented but seems to be depressed and in pain - Labs CBC & Chem 7: 11/05/17 08:59 11/04/17 07:00 Labs: Abnormal Lab Results - Last 24 Hours (Table) 11/05/17 11/06/17 Range/Units 21:23 11:53 POC Glucose (mg/dL) 101 H 73 L (75-99) mg/dL Assessment and Plan Assessment: Impression. 1. End-stage renal failure secondary diabetic nephropathy. Malfunctioning PD catheter with peritonitis growing staph in the PD fluid. PD catheter was removed 11/03/2017 2. P cath with good blood flow and dialyzed 4 days this week and last 2 days in a row. 3. Abdominal pain after removal of PD catheter, on 11/03/2017 4. Diabetic nephropathy and diabetic neuropathy and possible diabetic gastroparesis 5. Status post left BKA and amputation of right foot and marked past. Recommendation. 1. Check amylase and lipase. 2. Obtain computed tomography scan of the abdomen and pelvis with oral contrast. No IV available therefore we will skip the IV contrast. 3. Discussed with infectious disease regarding resumption of antibiotics. His last vancomycin dose was 10/26/2017 4. He might have perretinitis from a different organism such as fungus, this may need to be further clarified with a tap if possible. We see any fluid in the computed tomography scan. 5. Next dialysis is on Wednesday
[2017-11-06] MEDS: IOPAMIDOL-300 CONTRAST 30 ML VIAL (ORAL USE) PO PRN ×2 (13:51→15:02)
[2017-11-06 15:15] LABS: Amylase <30 U/L (30-110); Lipase 19 U/L (23-300)
--- NOTE | 2017-11-06 15:46 | CT ---
EXAMINATION TYPE: CT abdomen pelvis wo con DATE OF EXAM: 11/06/2017 COMPARISON: 07/28/2016 HISTORY: 46-year-old male abdominal pain, PD catheter removed, fever Patient complains of stomach elsa n. CT DLP: 987.4 mGycm. Automated exposure control for dose reduction was used. TECHNIQUE: Contiguous axial scanning of the abdomen and pelvis without IV contrast. Coronal and sagit leslie reconstructions performed. FINDINGS: The heart is upper limits of normal in size. Bilateral gynecomastia noted. There is a moderate-sized dependent pericardial effusion along the left heart margin measuring up to 3.2 cm thick. Small left a nd trace right effusions are present with adjacent atelectasis at the left base. Tiny hiatal hernia. Moderate to severe diffuse anasarca type changes and mesenteric edema. There is mild abdominopelvic a scites. Scattered nonenlarged mildly enlarged lymph nodes measuring up to 9 mm, coronal image 38. Noncontrast appearance of the liver, adrenal glands, kidneys, spleen, and pancreas show no gross abno rmality. There is a small collection of fluid and air along the left periumbilical defect measuring 2.2 cm, ax ial image 90. No dilated small bowel or free air. Mild stool burden. Mild pelvic ascites. Circumferential bladder wall thickening may relate to nondistention. Multiple pe lvic phleboliths. Stable borderline right inguinal lymphadenopathy measuring up to 1.4 cm short axis likely chronic postinflammatory in etiology. Extensive arterial calcifications compatible with chronic kidney disease. Degenerative changes of the hips. Stable vertebroplasty changes at T12 and posterior disc bulge at L5 -S1. IMPRESSION: 1. Moderate to severe generalized anasarca. Correlate with patient's fluid status. 2. Moderate-sized dependent pericardial effusion along the left heart margin (3.2 cm thick). Small l eft and trace right effusions. 3. Small 2.2 cm collection of fluid and air in the left periumbilical subcutaneous fat. Correlate to exclude a small subcutaneous abscess especially if there are clinical signs of surrounding celluliti s. 4. Circumferential bladder wall thickening may relate to nondistention. Correlate to exclude cystiti s.
[2017-11-06 17:56] LABS: Glucose,Whole Blood 95 mg/dL (75-99)
[2017-11-06 18:10] LABS: Appearance,Urine Clear (Clear); Bacteria,Urine Rare /hpf; Bilirubin,Urine Negative (Negative); Blood,Urine Trace (Negative); Color,Urine Yellow; Glucose,Urine (UA) 2+ (Negative); Hyaline Casts,Urine 3 /lpf (0-2); Ketones,Urine 1+ (Negative); Leukocyte Esterase,Urine Negative (Negative); Mucus,Urine Rare /hpf; Nitrite,Urine Negative (Negative); Protein,Urine 3+ (Negative); RBC,Urine 2 /hpf (0-5); Specific Gravity,Urine 1.009 (1.001-1.035); Urobilinogen,Urine <2.0 mg/dL (<2.0); WBC,Urine 1 /hpf (0-5)
[2017-11-06 21:20] LABS: Glucose,Whole Blood 93 mg/dL (75-99)
[2017-11-06] MEDS: INSULIN DETEMIR 100 UNIT/ML 10 ML VIAL SQ SCH (21:20)
[2017-11-06] MEDS: TAMSULOSIN 0.4 MG CAP.ER.24H PO SCH (21:26)
[2017-11-06] MEDS: ATORVASTATIN 80 MG TAB PO SCH (21:27)
[2017-11-07 07:04] LABS: Glucose,Whole Blood 99 mg/dL (75-99)
[2017-11-07] MEDS: INSULIN ASPART 100 UNIT/ML 1 ML 10 ML VIAL SQ SCH ×4 (08:37→22:57)
[2017-11-07] MEDS: AMMONIUM LACTATE 12% LOTION 225 GM BTL TOPICAL SCH ×2 (09:08→22:56)
[2017-11-07] MEDS: acetaZOLAMIDE 250 MG TAB PO SCH ×2 (09:08→22:55)
[2017-11-07] MEDS: TRIAMCINOLONE ACET 0.1% OINTMENT 15 GM TUBE TOPICAL SCH ×2 (09:09→23:04)
[2017-11-07] MEDS: CALCIUM ACETATE 667 MG CAP PO SCH ×3 (09:10→19:30)
[2017-11-07] MEDS: amLODIPine 10 MG TAB PO SCH (09:10)
[2017-11-07] MEDS: AMIODARONE 200 MG TAB PO SCH ×2 (09:10→22:56)
[2017-11-07] MEDS: LEVOTHYROXINE 25 MCG TAB PO SCH (09:10)
[2017-11-07] MEDS: GABAPENTIN 300 MG CAP PO SCH ×2 (09:11→22:56)
[2017-11-07] MEDS: SEVELAMER 800 MG TAB PO SCH ×4 (09:11→23:04)
[2017-11-07] MEDS: FAMOTIDINE 20 MG TAB PO SCH (09:11)
[2017-11-07] MEDS: SODIUM BICARBONATE TAB 650 MG TAB PO SCH ×2 (09:11→23:04)
[2017-11-07] MEDS: MORPHINE ORAL SOLN 10 MG/5 ML CUP PO PRN ×2 (09:25→13:47)
--- NOTE | 2017-11-07 11:09 | P.PN ---
Subjective Progress Note Date: 11/07/17 Principal diagnosis: Malfunctioning peritoneal dialysis catheter Removed Patient is postop day 3 removal of peritoneal dialysis catheter. Patient is currently being hemodialyzed His appetite has significantly improved, patient states well tired and he is actually feeling much better we'll continue to follow him closely Objective - Vital Signs Vital signs: Vital Signs Temp 97.8 F 11/07/17 07:45 Pulse 77 11/07/17 07:45 Resp 18 11/07/17 07:45 BP 166/70 11/07/17 07:45 Pulse Ox 98 11/07/17 07:45 Intake & Output 11/06/17 11/07/17 11/07/17 18:59 06:59 18:59 Intake Total 250 Balance 250 Intake: IV 0 Sodium Chloride 0.9% 1, 0 000 ml @ 10 mls/hr IV . Q24H TRAE Rx#:[id number] Oral 250 Other: # Voids 1 2 - Exam General: [Patient awake, alert and oriented times 3. Patient in no acute distress.] HEENT: [PERRL. EOMI. No pharyngeal erythema or exudate.] Neck: [No adenopathy.] Cardiac: [Heart regular in rate and rhythm. No S3. No S4. No clicks, rubs. No murmur.] Lungs: [Clear to auscultation bilaterally.] Abdomen: [No mass. No organomegaly. Bowel sounds presnt and normoactive in all 4 quadrants.] Mild to moderate. Incisional tenderness with fullness through the abdomen Extremes: [No edema no cyanosis , partial amputation of the right foot no significant edema bilaterally patient has decent posterior tibial pulses bilaterally : [] Musculoskeletal: [No joint erythema, edema or tenderness.] Skin: [No rash.] Neurologic: [No lateralizing deficits. CN II - XII grossly intact.] Lymphatic: [No adenopathy.] - Labs CBC & Chem 7: 11/05/17 08:59 11/04/17 07:00 Labs: Abnormal Lab Results - Last 24 Hours (Table) 11/06/17 11/06/17 11/06/17 Range/Units 11:53 14:17 Unknown POC Glucose (mg/dL) 73 L (75-99) mg/dL Amylase <30 L (30-110) U/L Lipase 19 L (23-300) U/L Urine Protein 3+ H (Negative) Urine Glucose (UA) 2+ H (Negative) Urine Ketones 1+ H (Negative) Urine Blood Trace H (Negative) Urine WBC Clumps Rare H (None) /hpf Urine Bacteria Rare H (None) /hpf Hyaline Casts 3 H (0-2) /lpf Urine Mucus Rare H (None) /hpf Microbiology - Last 24 Hours (Table) 11/06/17 Unknown Urine Culture - Preliminary Urine,Catheterized Assessment and Plan (1) Chronic renal failure, stage 4 (severe) Current Visit: Yes Status: Acute Code(s): N18.4 - CHRONIC KIDNEY DISEASE, STAGE 4 (SEVERE) SNOMED Code(s): 08008337 Plan: Patient otherwise doing quite well Complains of. Incisional tenderness with abdominal fullness limited or very little appetite Discussed with patient that he could go home today if he felt better layer or tomorrow Time with Patient: Greater than 30
--- NOTE | 2017-11-07 11:16 | P.PN ---
Subjective Progress Note Date: 11/07/17 Principal diagnosis: Malfunctioning peritoneal dialysis catheter Patient seems to be doing better at this time. Tolerating diet. No further nausea or vomiting. Pain seems improved. CAT scan from yesterday shows a small amount of air at the recent incision site that appears normal. No intra- abdominal abscess formation or significant bowel inflammation identified. Objective - Vital Signs Vital signs: Vital Signs Temp 97.8 F 11/07/17 07:45 Pulse 77 11/07/17 07:45 Resp 18 11/07/17 07:45 BP 166/70 11/07/17 07:45 Pulse Ox 98 11/07/17 07:45 Intake & Output 11/06/17 11/07/17 11/07/17 18:59 06:59 18:59 Intake Total 250 Balance 250 Intake: IV 0 Sodium Chloride 0.9% 1, 0 000 ml @ 10 mls/hr IV . Q24H TRAE Rx#:[id number] Oral 250 Other: # Voids 1 2 - Exam Abdomen: Soft, nondistended, incisions clean and dry, no erythema - Labs CBC & Chem 7: 11/05/17 08:59 11/04/17 07:00 Labs: Abnormal Lab Results - Last 24 Hours (Table) 11/06/17 11/06/17 11/06/17 Range/Units 11:53 14:17 Unknown POC Glucose (mg/dL) 73 L (75-99) mg/dL Amylase <30 L (30-110) U/L Lipase 19 L (23-300) U/L Urine Protein 3+ H (Negative) Urine Glucose (UA) 2+ H (Negative) Urine Ketones 1+ H (Negative) Urine Blood Trace H (Negative) Urine WBC Clumps Rare H (None) /hpf Urine Bacteria Rare H (None) /hpf Hyaline Casts 3 H (0-2) /lpf Urine Mucus Rare H (None) /hpf Microbiology - Last 24 Hours (Table) 11/06/17 Unknown Urine Culture - Preliminary Urine,Catheterized Assessment and Plan (1) Peritoneal dialysis catheter in situ Narrative/Plan: Continue diet as tolerated. No further surgical workup or plans at this time. Current Visit: No Status: Chronic Code(s): Z99.2 - DEPENDENCE ON RENAL DIALYSIS SNOMED Code(s): 702964119
[2017-11-07] MEDS: THIAMINE 100 MG TAB PO SCH (11:20)
[2017-11-07 11:22] LABS: Glucose,Whole Blood 127 mg/dL (75-99)
--- NOTE | 2017-11-07 12:47 | P.PN ---
Subjective Progress Note Date: 11/07/17 Principal diagnosis: This is a 46-year-old male with ESRD on dialysis with the peritoneal dialysis catheter taht was not functioning well. Additionally there was peritonitis. PD Catheter was discontinued on 11/03/2017. He has been switched over to hemodialysis with a permacath. He has been dialyzed 4 times a week, . His blood flows have been in the 400 range. He was complaining of abdominal discomfort nausea vomiting yesterday with a poor appetite and low-grade temperature of 99. A computed tomography scan was ordered with showed no significant abnormality except for ascites, pericardial effusion moderate small pleural effusion and a small collection right there is scar of the PD catheter removal. He has a permacath in his neck on the right side which is pain-free. This morning is somewhat better able to eat his food without nausea vomiting. He is moving his bowels. Abdominal discomfort is much better. He was seen by the surgeon and no surgical intervention is gone. He remains afebrile. Is known with diabetes amputation of right partial foot and left BKA in the past. He denies having had back diabetic gastroparesis but is history and physical mentions that he has it. Objective - Vital Signs Vital signs: Vital Signs Temp 97.8 F 11/07/17 07:45 Pulse 77 11/07/17 07:45 Resp 18 11/07/17 07:45 BP 166/70 11/07/17 07:45 Pulse Ox 98 11/07/17 07:45 Intake & Output 11/06/17 11/07/17 11/07/17 18:59 06:59 18:59 Intake Total 250 477 Balance 250 477 Intake: IV 0 Sodium Chloride 0.9% 1, 0 000 ml @ 10 mls/hr IV . Q24H [facility] Rx#:[id number] Oral 250 477 Other: # Voids 1 2 On examination awake alert oriented. HEENT exam no JVP neck is supple no facial asymmetry Lungs clear to auscultation percussion good air entry bilaterally. Heart sounds are unremarkable no murmur rub gallop. Abdomen soft nontender no organomegaly masses ascites Extremity exam reveals mild edema. He has a remote transmetatarsal amputation on the right and the more recent BKA for this admission with dressing on the left. Neurologically awake alert oriented. - Labs CBC & Chem 7: 11/05/17 08:59 11/04/17 07:00 Labs: Abnormal Lab Results - Last 24 Hours (Table) 11/06/17 11/06/17 11/07/17 Range/Units 14:17 Unknown 11:19 POC Glucose (mg/dL) 127 H (75-99) mg/dL Amylase <30 L (30-110) U/L Lipase 19 L (23-300) U/L Urine Protein 3+ H (Negative) Urine Glucose (UA) 2+ H (Negative) Urine Ketones 1+ H (Negative) Urine Blood Trace H (Negative) Urine WBC Clumps Rare H (None) /hpf Urine Bacteria Rare H (None) /hpf Hyaline Casts 3 H (0-2) /lpf Urine Mucus Rare H (None) /hpf Microbiology - Last 24 Hours (Table) 11/06/17 Unknown Urine Culture - Preliminary Urine,Catheterized Assessment and Plan Assessment: Impression. 1. End-stage renal failure secondary diabetic nephropathy. Malfunctioning PD catheter with peritonitis growing staph in the PD fluid. PD catheter was removed 11/03/2017 2. P cath with good blood flow and dialyzed 4 days this week and last 2 days in a row. 3. Abdominal pain after removal of PD catheter, on 11/03/2017. Computed tomography scan shows ascites, pericardial effusion, small pleural effusion and a small collection near the surgical site. The site is benign on clinical exam. The pain is much better and nausea is much better patient is able to eat 4. Diabetic nephropathy and diabetic neuropathy and possible diabetic gastroparesis 5. Status post left BKA and amputation of right foot and marked past. 6. Anemia of chronic kidney disease at target hemoglobin is 10.8. Recommendation. 1. Will be dialyzed tomorrow. Because of the fluid seen in the computed tomography scan will attempt 4 L over 4 hours which is his usual dialysis. 2. check calcium phosphorus
[2017-11-07] MEDS: FOLIC ACID-VIT B COMPLEX-VIT C 1 CAP PO SCH (14:16)
[2017-11-07 17:35] LABS: Glucose,Whole Blood 182 mg/dL (75-99)
[2017-11-07] MEDS: TAMSULOSIN 0.4 MG CAP.ER.24H PO SCH (19:28)
[2017-11-07 20:34] LABS: Glucose,Whole Blood 126 mg/dL (75-99)
[2017-11-07] MEDS: ATORVASTATIN 80 MG TAB PO SCH (22:56)
[2017-11-07] MEDS: INSULIN DETEMIR 100 UNIT/ML 10 ML VIAL SQ SCH (22:57)
[2017-11-07] MEDS: LACTATED RINGERS 1,000 ML IV SCH (23:04)
[2017-11-08 01:18] VITALS: RESP 16
[2017-11-08 07:10] LABS: Glucose,Whole Blood 105 mg/dL (75-99)
[2017-11-08] MEDS: LEVOTHYROXINE 25 MCG TAB PO SCH (08:27)
[2017-11-08] MEDS: AMIODARONE 200 MG TAB PO SCH (08:27)
[2017-11-08] MEDS: AMMONIUM LACTATE 12% LOTION 225 GM BTL TOPICAL SCH (08:27)
[2017-11-08] MEDS: SEVELAMER 800 MG TAB PO SCH ×3 (08:27→18:22)
[2017-11-08] MEDS: CALCIUM ACETATE 667 MG CAP PO SCH ×3 (08:27→18:21)
[2017-11-08] MEDS: GABAPENTIN 300 MG CAP PO SCH (08:27)
[2017-11-08] MEDS: amLODIPine 10 MG TAB PO SCH ×2 (08:27→16:24)
[2017-11-08] MEDS: acetaZOLAMIDE 250 MG TAB PO SCH (08:27)
[2017-11-08] MEDS: FAMOTIDINE 20 MG TAB PO SCH (08:27)
[2017-11-08] MEDS: INSULIN ASPART 100 UNIT/ML 1 ML 10 ML VIAL SQ SCH ×2 (08:27→11:32)
[2017-11-08] MEDS: SODIUM BICARBONATE TAB 650 MG TAB PO SCH (08:28)
[2017-11-08] MEDS: THIAMINE 100 MG TAB PO SCH (08:28)
--- NOTE | 2017-11-08 10:54 | P.PN ---
Subjective Patient is seen in follow-up for end-stage renal disease. He was maintained on peritoneal dialysis and was having difficulty with fills and draining. The PD catheter was noted to be patent. However he did have a fibrin sheath around the catheter. He is currently resting in bed. Denies chest pain or shortness of breath. Underwent laparoscopic revision of the PD catheter on October 28 which revealed multiple intra-abdominal adhesions. He was tolerating low- volume exchanges except still had pain with fills/draining. The PD catheter was discontinued November 03. Patient is now maintained on hemodialysis on a Wednesday schedule. CAT scan of the abdomen and pelvis done over the weekend revealed generalized anasarca as well as a moderate-sized pericardial effusion. Vital signs are stable. General: The patient appeared well nourished and normally developed. HEENT: Head exam is unremarkable. Neck is without jugular venous distension. LUNGS: Lungs are clear to auscultation and percussion. Breath sounds decreased. HEART: Rate and Rhythm are regular. First and second heart sounds normal. No murmurs, rubs or gallops. ABDOMEN: Abdominal exam reveals normal bowel sounds. Non-tender and non- distended. No evidence of peritonitis. EXTREMITITES: No clubbing, cyanosis, or edema. Left [id number] amputation noted. Objective - Vital Signs Vital signs: Vital Signs Temp 98 F 11/08/17 07:00 Pulse 98 11/08/17 07:00 Resp 16 11/08/17 07:00 BP 136/82 11/08/17 07:00 Pulse Ox 98 11/08/17 07:00 Intake & Output 11/07/17 11/08/17 11/08/17 18:59 06:59 18:59 Intake Total 717 358 Balance 717 358 Weight 96.5 kg Intake: Oral 717 358 Other: Voiding Method Toilet # Voids 1 - Labs CBC & Chem 7: 11/05/17 08:59 11/04/17 07:00 Labs: Abnormal Lab Results - Last 24 Hours (Table) 11/07/17 11/07/17 11/07/17 Range/Units 11:19 17:33 20:22 POC Glucose (mg/dL) 127 H 182 H 126 H (75-99) mg/dL 11/08/17 Range/Units 06:57 POC Glucose (mg/dL) 105 H (75-99) mg/dL Microbiology - Last 24 Hours (Table) 11/06/17 Unknown Urine Culture - Final Urine,Catheterized Assessment and Plan Plan: Assessment: #1. End-stage renal disease maintained on hemodialysis on a Wednesday schedule via P-cath. PD catheter was discontinued on October 2014. #2. Abdominal pain due to inability to drain dialysate related to fibrin around the catheter. Although his white cell count was 45, the PMN count was 65 % which is suggestive of peritonitis - body fluid culture positive for staph epidermidis, likely a contamination. Repeat dialysate evaluation reveals only 15 white cells. #3. Hypokalemia due to poor PO intake and hypomagnesemia. Improved. #4. Hypertension with chronic kidney disease. Controlled. #5. Chronic kidney disease mineral bone disease maintained on PhosLo and Renvela. #6. Insulin-dependent diabetes mellitus. #7. Metabolic acidosis secondary to chronic kidney disease. #8. Hypervolemic hyponatremia. Expect improvement postdialysis. #9. Volume overload. #10. Diarrhea. Rule out C. diff. Plan: Hemodialysis today with goal 4 L ultrafiltration. Maintain oral sodium bicarbonate for now. He will be maintained on hemodialysis on a Wednesday schedule. Outpatient dialysis has already been set up. Follow-up stool culture.
[2017-11-08 11:31] LABS: Glucose,Whole Blood 106 mg/dL (75-99)
[2017-11-08] MEDS: FOLIC ACID-VIT B COMPLEX-VIT C 1 CAP PO SCH (11:32)
[2017-11-08] MEDS ORDERED: HEPARIN SODIUM,PORCINE 5,000 UNIT/ML 1 ML VIAL ONE (12:00)
--- NOTE | 2017-11-08 13:52 | P.DS ---
Providers Date of admission: 10/25/17 21:48 Expected date of discharge: 11/08/17 Attending physician: Kong Hough Consults: 10/25/17 21:50 Consult Physician Urgent Consulting Provider: Yung Mann Consult Reason/Comments: known Do you want consulting provider notified?: Yes 10/25/17 21:59 Consult Physician Urgent Consulting Provider: Charlie Sy Consult Reason/Comments: ID Do you want consulting provider notified?: Yes 10/26/17 11:10 Consult Physician Urgent Consulting Provider: Juan Adorno Consult Reason/Comments: abdominal pain Do you want consulting provider notified?: Yes Primary care physician: [facility] Course: 46-year-old male who presented to the emergency room with a chief complaint of abdominal pain that has persisted over the last two days. Patient states he has been having difficulty getting his PD catheter to drain and has not been able to properly complete a PD exchange in two days. He reports abdominal distention and bloating. Reports generalized abdominal pain. He denies nausea or vomiting. Denies chest pain or pressure. Denies shortness of breath. The patient has a history of end stage renal disease, coronary artery disease, diabetes, DVT, GERD, hypertension, hyperlipidemia, CO, PVD with a left below the knee amputation. 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 The patient was hospitalized in 2016 for peritonitis. His PD catheter was removed and the patient was placed on hemodialysis. The patient was also hospitalized in July 2017 for nausea and vomiting. He left AMA during that admission. Dr. Adorno replaced his PD catheter in July 2017. Acute abdomen series: Pleural reaction at the left lung base. Nonacute abdomen. Laboratory data: WBC 9.8. Hemoglobin 11.6. Platelet count 444. Sodium 134. Potassium 3.0. BUN 37. Creatinine 9.5. Lactic acid: 0.6 AST 22. ALT 20. Alkaline phosphatase 137. The patients BP upon admission was 174/94. He was febrile with a temperature of 100.0 Heart rate 96. RR 20. The patient was admitted to the hospital under the care of Dr. Hough. 10/27/2017 Patient evaluated at the bedside. Patient states he is feeling nausea this morning and continues to have generalized abdominal pain. Patient underwent shuntogram by interventional radiology which revealed significant fibrin sheath around the catheter. Patient reports they were able to infuse about half of the dialysate yesterday but when nursing attempted to drain there was no outflow. Patient states he is going to have hemodialysis today. Patient still has permacath to right chest wall. Patient reports Dr. Adorno is going to evaluate the catheter tomorrow and possibly exchange it. magnesium this morning is 1.5 and is being replaced. Patient is afebrile. Vital signs remain stable. Patient states Dr. Sy debrided his right foot wound at the bedside yesterday but no documentation is available regarding this. 10/28/2017 Patient seen and examined at the bedside on rounds with Dr. Hough. Patient is awake and alert sitting up in the bed. Patient states he continues to have generalized abdominal pain. Patient underwent hemodialysis yesterday. Creatinine is 7.86, down from 10.0. Patient is scheduled evaluation of his peritoneal dialysis catheter with Dr. Adorno today. Case discussed with Dr. Mann who states patient may resume PD after catheter revision today if okay with Dr. Adorno. Otherwise, patient will have to continue HD. Patient is afebrile. Blood pressure 137/81. Patient is on room air with oxygen saturations greater than 92%. Heart rate is in the 80s. 10/29/2017-10/31/2017-Notes per Dr. Hough/Lauren 11/01/2017 Patient seen and examined at the bedside. Patient underwent laparoscopic repositioning of dialysis catheter on 10/28/[address] Adorno. Patient has been tolerating low volume PD. Patient states PD was increased to 1500cc PD exchanges today. Patient to receive HD-ultrafiltration today. Patient states his abdominal pain and nausea have improved. He is hoping to be discharged home tomorrow. 11/02/2017 Patient seen and examined at the bedside. Patient states he continues to have pain with PD exchanges, specifically when volume was increased yesterday. Patient underwent HD with ultrafilration yesterday. Weight today is 95.5kg, down from 98kg. Patient states appetite is improving. Denies nausea or vomiting at this time. Patient states he is going to have his PD catheter removed tomorrow and is going to continue with HD. 11/03/2017 through 11/07/2017 pt continued to have abdominal sarah even with small amunt PD. scarring was considered to be the caue and he had his PD shunt removed. this eliminated most of his pain. He tolerated HD well. he was then cleared for D/C 11/08 for MWF HD. Patient Condition at Discharge: Poor Plan - Discharge Summary Discharge Rx Participant: No New Discharge Prescriptions: New acetaZOLAMIDE [Diamox] 125 mg PO BID #60 tab Sodium Bicarbonate Tab 650 mg PO BID #60 tab Continue Insulin Glargine [Lantus] 10 unit SQ HS Atorvastatin [Lipitor] 80 mg PO HS Calcium Acetate [PhosLo] 667 mg PO TID-W/MEALS Levothyroxine Sodium [Synthroid] 25 mcg PO DAILY Sevelamer [Renvela] 800 mg PO QID Amiodarone [Cordarone] 200 mg PO BID amLODIPine [Norvasc] 10 mg PO DAILY Dilcia Jordan 1,600 mg PO BID Tamsulosin [Flomax] 0.8 mg PO PC-SUPPER Thiamine [Vitamin B-1] 100 mg PO DAILY Ammonium Lactate Lotion [Lac-Hydrin 12% Lotion] 1 applic TOPICAL BID #240 ml Gabapentin [Neurontin] 300 mg PO TID traMADol HCL [Ultram] 50 mg PO Q6HR PRN PRN Reason: Pain Ondansetron [Zofran] 4 mg PO Q8HR PRN PRN Reason: Nausea Insulin Aspart [NovoLOG Flexpen] 3 units SQ TID-W/MEALS levETIRAcetam [Keppra] 750 mg PO BID Discharge Medication List Atorvastatin [Lipitor] 80 mg PO HS 04/08/15 [History] Calcium Acetate [PhosLo] 667 mg PO TID-W/MEALS 04/08/15 [History] Insulin Glargine [Lantus] 10 unit SQ HS 04/08/15 [History] Levothyroxine Sodium [Synthroid] 25 mcg PO DAILY 04/08/15 [History] Sevelamer [Renvela] 800 mg PO QID 01/20/16 [History] Amiodarone [Cordarone] 200 mg PO BID 05/20/17 [History] Dilcia Jordan 1,600 mg PO BID 05/20/17 [History] Tamsulosin [Flomax] 0.8 mg PO PC-SUPPER 05/20/17 [History] Thiamine [Vitamin B-1] 100 mg PO DAILY 05/20/17 [History] amLODIPine [Norvasc] 10 mg PO DAILY 05/20/17 [History] Ammonium Lactate Lotion [Lac-Hydrin 12% Lotion] 1 applic TOPICAL BID #240 ml 03/29 [Rx] Gabapentin [Neurontin] 300 mg PO TID 08/06/17 [History] Insulin Aspart [NovoLOG Flexpen] 3 units SQ TID-W/MEALS 08/06/17 [History] Ondansetron [Zofran] 4 mg PO Q8HR PRN 08/06/17 [History] traMADol HCL [Ultram] 50 mg PO Q6HR PRN 08/06/17 [History] levETIRAcetam [Keppra] 750 mg PO BID 10/25/17 [History] Sodium Bicarbonate Tab 650 mg PO BID #60 tab 11/08/17 [Rx] acetaZOLAMIDE [Diamox] 125 mg PO BID #60 tab 11/08/17 [Rx] Follow up Appointment(s)/Referral(s): Juan Adorno MD [Medical Doctor] - As Needed (FOLLOW UP NEEDED ONLY.) Scott Aguilar Jr, [Primary Care Provider] - 1-2 days [facility], [NON-STAFF] - Nico Ndiaye MD [STAFF PHYSICIAN] - 1 Week (for vein mapping and dialysis cath placement) Patient Instructions/Handouts: Dialysis Diet (DC), End Stage Kidney Disease (DC ), Peritonitis (DC) Activity/Diet/Wound Care/Special Instructions: Wheelchair - [facility] - [phone]- will deliver to bedside before discharge [facility]: [phone] - Schedule is Mondays, Wednesdays, and Fridays at 11:45 starting 11/08/17. Please arrive at 11:30 Wednesday. Discharge Disposition: HOME WITH HOME HEALTH SERVICES
[2017-11-08 15:32] VITALS: BP 141/70; PULSE 84; TEMP 97.9
[2017-11-08] MEDS: TAMSULOSIN 0.4 MG CAP.ER.24H PO SCH (18:22)
--- NOTE | 2017-11-08 22:51 | P.PN ---
Subjective Progress Note Date: 11/08/17 Principal diagnosis: Abdominal pain 46-year-old male who has diabetes as well as type II with many Occasions that includes end-stage renal disease on peritoneal dialysis. Earlier this year as noted had difficulties with his infection of the peritoneal dialysis catheter this was removed and he has been on hemodialysis. He had complete healing of the abdominal infection headache. To note catheter dialysis replaced was doing well on his CAPD. However now comes to hospital with lack of drainage of his catheter increasing abdominal discomfort and just not feeling very well. Temperature maximum is been 100 and is not his significant chills. Today he is feeling a little more poorly and that with antibiotic therapies without significant nausea and emesis somewhat her is what he had last time. He is not having diarrhea. 10/28/2017 patient is feeling better today. Had dialysis yesterday which seems to resolve some of his uremic symptoms. He is awaiting surgery is not having nausea or emesis at this time. No fevers or chills. 10/29/2017 CAPD catheter revision complete and successful, other than ABD pain has no new complaints, nausea has resolved and able to eat. Nursing relates to good catheter function. 11/01/2017 shows the patient to have further improvement. Abdominal pain is much improved. He was having some worsening uremia and had some nausea but no status post hemodialysis is feeling considerably better. He has been tolerating the filled and well very well through his CAPD catheter and has rapid drainage without problems. 11/04/2017 patient has had a change in his status. The peritoneal dialysis catheter has failed and now been removed. He is receiving hemodialysis and neck she is feeling somewhat better. If does well over the next 24 hours and dialysis will likely be discharged home after that. No new positive cultures. Pain control is adequate 11/05/2017 the patient was doing better. Tolerating his hemodialysis, eating well without significant troubles. However is now developed some nausea and emesis today is pressure in the time of his dialysis. Surgery has evaluated and likely be monitored overnight to ensure that he continues to improve. Pain control does not seem to be an issue. 11/08/2017 patient now improved and ready for discharge. Objective - Vital Signs Vital signs: Vital Signs Temp 97.9 F 11/08/17 15:00 Pulse 84 11/08/17 15:00 Resp 16 11/08/17 15:00 BP 141/70 11/08/17 15:00 Pulse Ox 90 L 11/08/17 15:00 Intake & Output 11/08/17 11/08/17 05 06:59 18:59 06:59 Intake Total 358 Balance 358 Weight 96.5 kg Intake: Oral 358 Other: Voiding Method Toilet # Voids 1 1 - Exam 46-year-old male not feeling well tonight because of nausea HEENT: Anicteric conjunctiva are pink and moist nasal mucosa grossly intact without significant lesions, there is no thrush. Neck: The neck is supple without significant lymphadenopathy or thyromegaly. Lungs: Good bilateral air entry without significant crackles or wheezing. There is no significant bronchial sounds. There is no egophony or dullness. Heart: Regular rate and rhythm with an audible S1-S2, no S3 no S4. There is no significant murmur click or rub, PMI was nondisplaced. Abdomen: Positive bowel sounds soft and minimally tender without palpable masses or organomegaly. The distention is generally resolved in the peritoneal dialysis catheter has been removed Extremities: The upper extremities have excellent pulses they are symmetric, no significant petechiae or telangiectasia. No splinter hemorrhages were noted. Left lower extremity without difficulty at the residual limb. Ulceration to the right foot plantar is at 0.2 0.2 0.1cm improving Neuro: Awake alert oriented to person place and time. There are no acute new gross focal sensory motor deficits. - Labs CBC & Chem 7: 11/05/17 08:59 11/04/17 07:00 Labs: Abnormal Lab Results - Last 24 Hours (Table) 11/08/17 11/08/17 Range/Units 06:57 11:27 POC Glucose (mg/dL) 105 H 106 H (75-99) mg/dL Microbiology - Last 24 Hours (Table) 11/06/17 Unknown Urine Culture - Final Urine,Catheterized Laboratory Results WBC 9.3 k/uL (3.8-10.6) 11/05/17 08:59 RBC 4.21 m/uL (4.30-5.90) L 11/05/17 08:59 Hgb 10.8 gm/dL (13.0-17.5) L 11/05/17 08:59 Hct 37.2 % (39.0-53.0) L 11/05/17 08:59 MCV 88.5 fL (80.0-100.0) 11/05/17 08:59 MCH 25.6 pg (25.0-35.0) 11/05/17 08:59 MCHC 29.0 g/dL (31.0-37.0) L 11/05/17 08:59 RDW 16.3 % (11.5-15.5) H 11/05/17 08:59 Plt Count 394 k/uL (150-450) 11/05/17 08:59 Neutrophils % 77 % 11/05/17 08:59 Lymphocytes % 11 % 11/05/17 08:59 Monocytes % 7 % 11/05/17 08:59 Eosinophils % 5 % 11/05/17 08:59 Basophils % 0 % 11/05/17 08:59 Neutrophils # 7.2 k/uL (1.3-7.7) 11/05/17 08:59 Lymphocytes # 1.0 k/uL (1.0-4.8) 11/05/17 08:59 Monocytes # 0.6 k/uL (0-1.0) 11/05/17 08:59 Eosinophils # 0.4 k/uL (0-0.7) 11/05/17 08:59 Basophils # 0.0 k/uL (0-0.2) 11/05/17 08:59 Hypochromasia Marked 11/05/17 08:59 Poikilocytosis Slight 10/29/17 07:21 Anisocytosis Slight 11/05/17 08:59 PT 10.4 sec (9.0-12.0) 10/25/17 21:40 INR 1.1 (<1.2) 10/25/17 21:40 APTT 27.2 sec (22.0-30.0) 10/25/17 21:40 Sodium 132 mmol/L (137-145) L 11/04/17 07:00 Potassium 4.5 mmol/L (3.5-5.1) 11/04/17 07:00 Chloride 102 mmol/L (98-107) 11/04/17 07:00 Carbon Dioxide 20 mmol/L (22-30) L 11/04/17 07:00 Anion Gap 10 mmol/L 11/04/17 07:00 BUN 24 mg/dL (9-20) H 11/04/17 07:00 Creatinine 7.58 mg/dL (0.66-1.25) H* 11/04/17 07:00 Est GFR (CKD-EPI)AfAm 9 (>60 ml/min/1.73 sqM) 11/04/17 07:00 Est GFR (CKD-EPI)NonAf 8 (>60 ml/min/1.73 sqM) 11/04/17 07:00 Glucose 80 mg/dL (74-99) 11/04/17 07:00 POC Glucose (mg/dL) 106 mg/dL (75-99) H 11/08/17 11:27 POC Glu Zipper Measurer ID Leatha Hernandes 11/08/17 11:[address] Glu mg/dL 148 10/26/17 09:25 Hemoglobin A1c 6.8 % (4.0-6.0) H 10/26/17 09:25 Plasma Lactic Acid Massimo 0.6 mmol/L (0.7-2.0) L 10/25/17 21:40 Calcium 7.9 mg/dL (8.4-10.2) L 11/04/17 07:00 Phosphorus 4.3 mg/dL (2.5-4.5) 11/08/17 12:50 Magnesium 1.9 mg/dL (1.6-2.3) 10/29/17 07:21 Total Bilirubin 0.4 mg/dL (0.2-1.3) 10/29/17 07:21 AST 17 U/L (17-59) 10/29/17 07:21 ALT 27 U/L (21-72) 10/29/17 07:21 Alkaline Phosphatase 186 U/L (38-126) H 10/29/17 07:21 Total Creatine Kinase 137 U/L (55-170) 10/26/17 09:25 CK-MB (CK-2) 6.3 ng/mL (0.0-2.4) H* 10/26/17 09:25 CK-MB (CK-2) Rel Index 4.6 10/26/17 09:25 Troponin I <0.012 ng/mL (0.000-0.034) 10/26/17 09:25 Total Protein 5.4 g/dL (6.3-8.2) L 10/29/17 07:21 Albumin 2.3 g/dL (3.5-5.0) L 10/29/17 07:21 Triglycerides 122 mg/dL (<150) 10/25/17 21:40 Cholesterol 131 mg/dL (<200) 10/25/17 21:40 LDL Cholesterol, Calc 71 mg/dL (0-99) 10/25/17 21:40 HDL Cholesterol 36 mg/dL (40-60) L 10/25/17 21:40 Amylase <30 U/L (30-110) L 11/06/17 14:17 Lipase 19 U/L (23-300) L 11/06/17 14:17 Urine Color Yellow 11/06/17 Unknown Urine Appearance Clear (Clear) 11/06/17 Unknown Urine pH 8.0 (5.0-8.0) 11/06/17 Unknown Ur Specific [place] 1.009 (1.001-1.035) 11/06/17 Unknown Urine Protein 3+ (Negative) H 11/06/17 Unknown Urine Glucose (UA) 2+ (Negative) H 11/06/17 Unknown Urine Ketones 1+ (Negative) H 11/06/17 Unknown Urine Blood Trace (Negative) H 11/06/17 Unknown Urine Nitrite Negative (Negative) 11/06/17 Unknown Urine Bilirubin Negative (Negative) 11/06/17 Unknown Urine Urobilinogen <2.0 mg/dL (<2.0) 11/06/17 Unknown Ur Leukocyte Esterase Negative (Negative) 11/06/17 Unknown Urine RBC 2 /hpf (0-5) 11/06/17 Unknown Urine WBC 1 /hpf (0-5) 11/06/17 Unknown Urine WBC Clumps Rare /hpf (None) H 11/06/17 Unknown Urine Bacteria Rare /hpf (None) H 11/06/17 Unknown Hyaline Casts 3 /lpf (0-2) H 11/06/17 Unknown Urine Mucus Rare /hpf (None) H 11/06/17 Unknown Fluid Source Dialysate 10/30/17 10:45 Fluid Color Colorless 10/30/17 10:45 Fluid Appearance Clear 10/30/17 10:45 Fluid RBC 125 /uL 10/30/17 10:45 Fluid Nucleated Cells 15 /uL 10/30/17 10:45 Fluid Polynuclear WBCs 60 % 10/30/17 10:45 Fluid Mononuclear WBCs 36 % 10/30/17 10:45 Fluid Eosinophils 4 % 10/30/17 10:45 C. difficile (EIA) Intrp Negative (Negative) 10/26/17 07:50 Hep Bs Antigen Non-Reactive (Non-Reactive) 11/01/17 14:20 Hep Bs Antibody Reactive (Non-Reactive) H 10/28/17 06:44 Hep Bs Antibody, Quant 37.8 mIU/mL 10/28/17 06:44 Microbiology 11/06/17 Unknown Urine,Catheterized Urine Culture - Final 10/30/17 10:45 Peritoneal Fluid Gram Stain - Final 10/30/17 10:45 Peritoneal Fluid Body Fluid Culture - Final 10/29/17 15:15 Dialysate Gram Stain - Final 10/29/17 15:15 Dialysate Body Fluid Culture - Final 10/28/17 15:50 Peritoneal Fluid Anaerobic Culture - Final 10/28/17 15:50 Peritoneal Fluid Gram Stain - Final 10/28/17 15:50 Peritoneal Fluid Body Fluid Culture - Final 10/26/17 10:33 Blood Blood Culture - Final No Growth after 144 hours 10/26/17 20:48 Peritoneal Fluid Gram Stain - Final 10/26/17 20:48 Peritoneal Fluid Body Fluid Culture - Final Staphylococcus epidermidis 10/28/17 15:50 Peritoneal Fluid Fungal Culture - Preliminary Assessment and Plan (1) Abdominal pain Narrative/Plan: 46-year-old male lungs sitting history diabetes mellitus type 2 with end state renal disease receiving CAPD. As noted does have a history of peritonitis requiring removal of the CAPD catheter and transition to hemodialysis. He has had complete resolution of the infection and the CAPD catheter was replaced. He now has had difficulties in that the fluid for dialysis was placed without any significant drainage. But evidence of an extensive fibrin sheath around the catheter. He is being followed by nephrology and received hemodialysis today, he has significant uremia which is likely in conjunction with the antibiotics is causing his significant nausea is he's had before. Hopefully as he has further dialysis uremia improves his current nausea will improve. The patient did have some fluid withdrawn from the peritoneal cavity cell count was only 45 the fluid was clear and colorless. His T-max is been 100 with no ongoing fevers and consequently it is unlikely that he has peritonitis. He has already been dosed with vancomycin, will discontinue ceftaz intensity appears to be causing him significant nausea and abdominal discomfort. Blood cultures are negative. He will be monitored 10/28/2017 the patient will go to the operating room today for further evaluation of this. Chest dialysis catheter and what appears to be some fibrin depositions in evaluation for infection. At this time he is afebrile. The white cell count was low, and the patient is not having steady and leukocytosis and is feeling somewhat better overall. At this time the patient does not appear to have peritonitis it would not provide further antibiotic therapy at this time. We'll discuss the findings of surgery with Dr. Adorno 10/29/2017 no evidence of infection at time of surgery, patient improving and the catheter is working well. Nephrology will guide discharge plan. the culture revealed a few [employer], and is a contamination and does not require antibiotic therapy. 11/01/2017 patient continues to have improvement. He had some nausea today with hemodialysis and improvement is uremia he is better and ate his dinner without difficulties. The case is discussed with art objects repairer and they agree there is no evidence of any peritonitis. We'll not need ongoing antibiotic therapy. 11/04/2017 patient had change of his status and now has had the peritoneal dialysis catheter removed due to catheter malfunction. We'll be utilizing hemodialysis from this time forward. When she is improved he will continue his goal toward transplant. No active infection at this time. After the next cycles of hemodialysis will likely be discharged home. Continue to follow with winnings regarding the plantar ulceration is now much improved. 11/05/2017 the patient was doing somewhat better and getting ready for discharge to home but is now developed some nausea and emesis. Being watched by surgery and nephrology. Hopefully he will have further improvement and will be discharged tomorrow. Continue local wound care with the timothy to the foot issue following the wound healing Center. We'll expect that foot ulceration to heal rapidly. No evidence of any peritonitis was found and will not need ongoing antibiotic therapy 11/08/2017 now improved and ready for discharge to home. No new infections, continue wound care as before and follw up in wound center next week. Status: Acute Code(s): R10.9 - UNSPECIFIED ABDOMINAL PAIN SNOMED Code(s): 62936340 (2) End stage renal disease on dialysis Status: Chronic Code(s): N18.6 - END STAGE RENAL DISEASE SNOMED Code(s): 935472148 (3) Hemodialysis catheter malfunction Status: Acute Code(s): T82.41XA - BREAKDOWN (MECHANICAL) OF VASCULAR DIALYSIS CATHETER, INIT SNOMED Code(s): 28052225
== END 2017-11-08 18:45 | disposition home health service (06) | DRG 981 ==
LOC: EC 20:03 → 3SUR 21:48
PROVIDERS: ADMIT Family Medicine; ATTEND Family Medicine
PROC: 5A1D70Z Performance of Urinary Filtration, Intermittent, Less than 6 Hours Per Day (ICD-10-PCS; principal; 2017-10-27)
PROC: 0WWG43Z Revision of Infusion Device in Peritoneal Cavity, Percutaneous Endoscopic Approach (ICD-10-PCS; 2017-10-28)
PROC: 0WPG33Z Removal of Infusion Device from Peritoneal Cavity, Percutaneous Approach (ICD-10-PCS; 2017-11-03)
DX: T85.691A Other mechanical complication of intraperitoneal dialysis catheter, initial encounter (principal); N18.6 End stage renal disease; K65.9 Peritonitis, unspecified; E11.21 Type 2 diabetes mellitus with diabetic nephropathy; E11.51 Type 2 diabetes mellitus with diabetic peripheral angiopathy without gangrene; I12.0 Hypertensive chronic kidney disease with stage 5 chronic kidney disease or end stage renal disease; E11.319 Type 2 diabetes mellitus with unspecified diabetic retinopathy without macular edema; E83.42 Hypomagnesemia; I31.3 Pericardial effusion (noninflammatory); E87.2 Acidosis; L97.419 Non-pressure chronic ulcer of right heel and midfoot with unspecified severity; E87.1 Hypo-osmolality and hyponatremia; R18.8 Other ascites; K31.84 Gastroparesis; E11.43 Type 2 diabetes mellitus with diabetic autonomic (poly)neuropathy; E83.9 Disorder of mineral metabolism, unspecified; E11.22 Type 2 diabetes mellitus with diabetic chronic kidney disease; E11.621 Type 2 diabetes mellitus with foot ulcer; L97.519 Non-pressure chronic ulcer of other part of right foot with unspecified severity; I25.10 Atherosclerotic heart disease of native coronary artery without angina pectoris; T85.828A Fibrosis due to other internal prosthetic devices, implants and grafts, initial encounter; K21.9 Gastro-esophageal reflux disease without esophagitis; E78.5 Hyperlipidemia, unspecified; E87.6 Hypokalemia; E87.70 Fluid overload, unspecified; T50.2X5A Adverse effect of carbonic-anhydrase inhibitors, benzothiadiazides and other diuretics, initial encounter; E03.9 Hypothyroidism, unspecified; D63.1 Anemia in chronic kidney disease; R19.7 Diarrhea, unspecified; K66.0 Peritoneal adhesions (postprocedural) (postinfection); I25.2 Old myocardial infarction; Z98.42 Cataract extraction status, left eye; Z89.512 Acquired absence of left leg below knee; Z86.14 Personal history of Methicillin resistant Staphylococcus aureus infection; Z86.718 Personal history of other venous thrombosis and embolism; Z86.73 Personal history of transient ischemic attack (TIA), and cerebral infarction without residual deficits; Z86.69 Personal history of other diseases of the nervous system and sense organs; Z99.2 Dependence on renal dialysis; Z79.4 Long term (current) use of insulin; Z79.899 Other long term (current) drug therapy; Z80.1 Family history of malignant neoplasm of trachea, bronchus and lung; Z83.3 Family history of diabetes mellitus; Z98.41 Cataract extraction status, right eye
CPT/HCPCS: 36415; 74022; 74176; 74190; 80048; 80053; 80061; 81001; 82150; 82550; 82553; 83036; 83605; 83690; 83735; 84100; 84484; 85025; 85610; 85730; 86706; 87040; 87070; 87075; 87077; 87086; 87102; 87186; 87205; 87324; 87340; 89050; 90935; 93005; 94760; 96361; 96365; 96366; 96375; 99285

== ENCOUNTER → 2017-11-16 | Outpatient (CLI) | payer MEDICARE, BC ==
[2017-11-16 10:45] LABS: Basophils # (A) 0.1 k/uL (0-0.2); Basophils % (A) 1 %; Eosinophils # (A) 0.2 k/uL (0-0.7); Eosinophils % (A) 4 %; HCT 31.4 % (39.0-53.0); HGB 9.4 gm/dL (13.0-17.5); Hypochromasia Marked; Lymphocytes # (A) 0.4 k/uL (1.0-4.8); Lymphocytes % (A) 10 %; MCH 25.3 pg (25.0-35.0); MCV 84.1 fL (80.0-100.0); Mean Platelet Volume 7.3; Monocytes # (A) 0.4 k/uL (0-1.0); Monocytes % (A) 8 %; Neutrophils # (A) 3.5 k/uL (1.3-7.7); Neutrophils % (A) 76 %; Platelet Count 231 k/uL (150-450); Poikilocytosis Slight; RBC 3.73 m/uL (4.30-5.90); RDW 15.7 % (11.5-15.5); WBC 4.7 k/uL (3.8-10.6)
[2017-11-16 10:49] LABS: ALT 15 U/L (21-72); AST 27 U/L (17-59); Albumin 2.7 g/dL (3.5-5.0); Alkaline Phosphatase 160 U/L (38-126); Anion Gap 10 mmol/L; Bilirubin, Delta 0.3 mg/dL (0.0-0.2); Blood Urea Nitrogen 22 mg/dL (9-20); Carbon Dioxide 30 mmol/L (22-30); Chloride 95 mmol/L (98-107); Cholesterol 123 mg/dL (<200); GGT 29 U/L (15-73); Glucose 122 mg/dL (74-99); LDH 583 U/L (313-618); Potassium 4.4 mmol/L (3.5-5.1); Sodium 135 mmol/L (137-145); Total Bilirubin 0.3 mg/dL (0.2-1.3); Total Protein 6.5 g/dL (6.3-8.2)
[2017-11-16 11:30] LABS: Prostate Specific Antigen <0.10 ng/mL (0.00-4.00)
[2017-11-16 17:19] LABS: Hepatitis B Core IgM Non-Reactive (Non-Reactive); Hepatitis B Surface AB- Quant 88.9 mIU/mL; Hepatitis C IgG Antibody Non-Reactive (Non-Reactive)
[2017-11-16 17:35] LABS: Hemoglobin A1C 6.6 % (4.0-6.0)
[2017-11-16 18:10] LABS: HIV AB P24 Non-Reactive (Non-Reactive); HIV P24 AG Non-Reactive (Non-Reactive)
[2017-11-17 07:11] LABS: EBV - EA (IgG) <5.0 U/mL (<9.0); EBV - VCA IgM <10.0 U/mL (<36.0)
[2017-11-18 15:19] LABS: Hepatits C Virus RNA Not detected (Not detected); Hepatits C Virus RNA, Quant <12 IU/mL (<12); LOG HCV IU/mL <1.08 (<1.08)
== END | disposition home or self-care (01) ==
LOC: LABWHC1 10:02
PROVIDERS: ATTEND Surgery
DX: Z13.6 Encounter for screening for cardiovascular disorders (principal); B25.9 Cytomegaloviral disease, unspecified; B27.90 Infectious mononucleosis, unspecified without complication; K71.6 Toxic liver disease with hepatitis, not elsewhere classified; B17.10 Acute hepatitis C without hepatic coma; E80.7 Disorder of bilirubin metabolism, unspecified; R68.89 Other general symptoms and signs; E11.65 Type 2 diabetes mellitus with hyperglycemia; D53.9 Nutritional anemia, unspecified; N41.9 Inflammatory disease of prostate, unspecified; Z11.4 Encounter for screening for human immunodeficiency virus [HIV]; Z11.3 Encounter for screening for infections with a predominantly sexual mode of transmission; Z11.59 Encounter for screening for other viral diseases; Z20.1 Contact with and (suspected) exposure to tuberculosis; Z13.220 Encounter for screening for lipoid disorders
CPT/HCPCS: 36415; 80053; 82248; 82465; 82977; 83036; 83615; 84153; 85025; 86480; 86644; 86663; 86664; 86665; 86704; 86705; 86706; 86780; 86803; 87340; 87390; 87522; 93005

== ENCOUNTER 2017-11-18 12:49 | Inpatient (IN) | payer MEDICARE, BC ==
[2017-11-18] MEDS ORDERED: HYDROcodone/APAP 5-325MG 1 EACH TAB PO STA (13:47)
--- NOTE | 2017-11-18 13:57 | ED ---
General Adult HPI - General Chief complaint: Weakness Stated complaint: Dehydration Time Seen by Provider: 11/18/17 13:05 Source: patient, RN notes reviewed, old records reviewed Mode of arrival: wheelchair Limitations: no limitations - History of Present Illness Initial comments: 46-year-old male presenting for evaluation of generalized weakness. Patient is a hemodialysis through a right chest wall permacath. Last hemodialysis was Wednesday, he missed hemodialysis on Wednesday secondary to fatigue and generalized weakness. He has had a mild cough and dyspnea. According to his home health care nurses blood pressure and oxygen level were significantly abnormal. Patient has diabetes in addition end-stage renal disease. He's had some vomiting and diarrhea over the past 48 hours. No significant chest pain. He does have fever or chills. - Related Data Home Medications Medication Instructions Recorded Confirmed Atorvastatin [Lipitor] 80 mg PO HS 04/08/15 11/18/17 Calcium Acetate [PhosLo] 667 mg PO TID-W/MEALS 04/08/15 11/18/17 Insulin Glargine [Lantus] 10 unit SQ HS 04/08/15 11/18/17 Levothyroxine Sodium [Synthroid] 25 mcg PO DAILY 04/08/15 11/18/17 Sevelamer [Renvela] 800 mg PO QID 01/20/16 11/18/17 Amiodarone [Cordarone] 200 mg PO BID 05/20/17 11/18/17 Dilcia Jordan 1,600 mg PO BID 05/20/17 11/18/17 Tamsulosin [Flomax] 0.8 mg PO PC-SUPPER 05/20/17 11/18/17 Thiamine [Vitamin B-1] 100 mg PO DAILY 05/20/17 11/18/17 amLODIPine [Norvasc] 10 mg PO DAILY 05/20/17 11/18/17 Gabapentin [Neurontin] 300 mg PO TID 08/06/17 11/18/17 Insulin Aspart [NovoLOG Flexpen] 3 units SQ TID-W/MEALS 08/06/17 11/18/17 Ondansetron [Zofran] 4 mg PO Q8HR PRN 08/06/17 11/18/17 traMADol HCL [Ultram] 50 mg PO Q6HR PRN 08/06/17 11/18/17 levETIRAcetam [Keppra] 750 mg PO BID 10/25/17 11/18/17 Previous Rx's Medication Instructions Recorded Ammonium Lactate Lotion 1 applic TOPICAL BID #240 ml 07/20/17 [Lac-Hydrin 12% Lotion] Sodium Bicarbonate Tab 650 mg PO BID #60 tab 11/08/17 acetaZOLAMIDE [Diamox] 125 mg PO BID #60 tab 11/08/17 Allergies Allergy/AdvReac Type Severity Reaction Status Date / Time No Known Allergies Allergy Verified 11/18/17 14:08 Review of Systems ROS Statement: Those systems with pertinent positive or pertinent negative responses have been documented in the HPI. ROS Other: All systems not noted in ROS Statement are negative. Past Medical History Past Medical History: Diabetes Mellitus, Diabetes Mellitus, Dialysis, Deep Vein Thrombosis (DVT), GERD/Reflux, Hyperlipidemia, Hypertension, Myocardial Infarction ([place]), Renal Disease, Seizure Disorder, Thyroid Disorder, Vascular Disorder Additional Past Medical History / Comment(s): Pt recently admitted with peritonitis, hemodialysis M/W/F; possible TIA with L sided weakness/ resolved, Diabetic gastroparesis, renal failure, peripheral neuropathy, chronic anemia, compression fracture of the vertebral, blood clot from IV line in the upper extremity on the left, gastritis, current bernabe grade II diabetic ulcer plantar R foot and lateral R leg, Last Myocardial Infarction Date:: 2012 History of Any Multi-Drug Resistant Organisms: MRSA Date of last positivie culture/infection: 07/01/17 MDRO Source:: RIGHT FOOT Past Surgical History: Orthopedic Surgery Additional Past Surgical History / Comment(s): HD catheter, I&D R foot/lateral R leg, 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 Past Psychological History: No Psychological Hx Reported Smoking Status: Never smoker Past Alcohol Use History: None Reported Past Drug Use History: None Reported - Past Family History Father Family Medical History: Cancer Additional Family Medical History / Comment(s): CANCER FROM [employer] [place] Mother History Unknown: Yes Family Medical History: Cancer, Supraventricular Tachycardia (SVT) Additional Family Medical History / Comment(s): LUNG CANCER(SMOKER) General Exam Limitations: no limitations General appearance: alert, in no apparent distress Head exam: Present: atraumatic, normocephalic Eye exam: Present: normal appearance, PERRL ENT exam: Present: normal exam Neck exam: Present: normal inspection. Absent: tenderness, meningismus Respiratory exam: Present: rales, rhonchi. Absent: respiratory distress Cardiovascular Exam: Present: regular rate, normal rhythm GI/Abdominal exam: Present: soft. Absent: distended, tenderness Neurological exam: Present: alert, oriented X3. Absent: motor sensory deficit Psychiatric exam: Present: normal affect, normal mood Skin exam: Present: warm, dry, intact. Absent: cyanosis, diaphoretic Course Vital Signs 11/18/17 11/18/17 11/18/17 13:02 14:20 15:10 Temperature 100.2 F H 102.1 F H Pulse Rate 95 90 89 Respiratory 18 18 18 Rate Blood Pressure 212/115 213/118 223/117 O2 Sat by Pulse 88 L 96 97 Oximetry 11/18/17 11/18/17 15:31 15:42 Temperature 100.8 F H Pulse Rate 85 88 Respiratory 18 18 Rate Blood Pressure 203/120 197/113 O2 Sat by Pulse 95 Oximetry EKG Findings - EKG Comments: EKG Findings:: EKG shows normal sinus rhythm, prolonged QT rate of 90, RI interval 168, QRS duration 92, QTC 494 ST segment elevation. Medical Decision Making - Medical Decision Making 46-year-old male on hemodialysis presenting with dyspnea and abnormal vitals according to his home care nurse. Patient was hypoxic, hypotensive and febrile. He does have indwelling permacath and with the fever there is concern for bacteremia. Blood cultures are obtained and the patient is started on broad -spectrum antibiotics. Chest x-ray shows pulmonary edema consistent with fluid overload. Laboratory studies reveal mild leukocytosis at 12.8. Hemoglobin stable 9.5. Patient is started on nitroglycerin, given supplemental oxygen. Case discussed with Dr. Ovalles who will arrange for hemodialysis. Case discussed with Dr. Duncan who will accept the patient under his service. - Lab Data Result diagrams: 11/18/17 14:39 11/18/17 14:39 Lab Results 11/18/17 11/18/17 11/18/17 Range/Units 14:39 14:39 14:39 WBC 12.8 H (3.8-10.6) k/uL RBC 3.71 L (4.30-5.90) m/uL Hgb 9.5 L (13.0-17.5) gm/dL Hct 30.9 L (39.0-53.0) % MCV 83.4 (80.0-100.0) fL MCH 25.6 (25.0-35.0) pg MCHC 30.7 L (31.0-37.0) g/dL RDW 15.8 H (11.5-15.5) % Plt Count 264 (150-450) k/uL Neutrophils % 93 % Lymphocytes % 3 % Monocytes % 3 % Eosinophils % 1 % Basophils % 0 % Neutrophils # 11.9 H (1.3-7.7) k/uL Lymphocytes # 0.4 L (1.0-4.8) k/uL Monocytes # 0.3 (0-1.0) k/uL Eosinophils # 0.1 (0-0.7) k/uL Basophils # 0.0 (0-0.2) k/uL Hypochromasia Moderate PT (9.0-12.0) sec INR (<1.2) APTT (22.0-30.0) sec Sodium 136 L (137-145) mmol/L Potassium 5.1 (3.5-5.1) mmol/L Chloride 95 L (98-107) mmol/L Carbon Dioxide 22 (22-30) mmol/L Anion Gap 19 mmol/L BUN 45 H (9-20) mg/dL Creatinine 8.17 H* (0.66-1.25) mg/dL Est GFR (CKD-EPI)AfAm 8 (>60 ml/min/1.73 sqM) Est GFR (CKD-EPI)NonAf 7 (>60 ml/min/1.73 sqM) Glucose 106 H (74-99) mg/dL Plasma Lactic Acid Massimo (0.7-2.0) mmol/L Calcium 8.2 L (8.4-10.2) mg/dL Phosphorus 6.2 H (2.5-4.5) mg/dL Magnesium 1.8 (1.6-2.3) mg/dL Total Bilirubin 0.6 (0.2-1.3) mg/dL AST 67 H (17-59) U/L ALT 32 (21-72) U/L Alkaline Phosphatase 172 H (38-126) U/L Total Creatine Kinase 125 (55-170) U/L CK-MB (CK-2) 4.8 H* (0.0-2.4) ng/mL CK-MB (CK-2) Rel Index 3.8 Total Protein 7.0 (6.3-8.2) g/dL Albumin 3.1 L (3.5-5.0) g/dL Influenza Type A RNA (Not Detectd) Influenza Type B (PCR) (Not Detectd) Blood Type Blood Type Recheck Antibody Screen Spec Expiration Date 11/18/17 11/18/17 11/18/17 Range/Units 14:39 14:39 14:39 WBC (3.8-10.6) k/uL RBC (4.30-5.90) m/uL Hgb (13.0-17.5) gm/dL Hct (39.0-53.0) % MCV (80.0-100.0) fL MCH (25.0-35.0) pg MCHC (31.0-37.0) g/dL RDW (11.5-15.5) % Plt Count (150-450) k/uL Neutrophils % % Lymphocytes % % Monocytes % % Eosinophils % % Basophils % % Neutrophils # (1.3-7.7) k/uL Lymphocytes # (1.0-4.8) k/uL Monocytes # (0-1.0) k/uL Eosinophils # (0-0.7) k/uL Basophils # (0-0.2) k/uL Hypochromasia PT 10.4 (9.0-12.0) sec INR 1.1 (<1.2) APTT 25.6 (22.0-30.0) sec Sodium (137-145) mmol/L Potassium (3.5-5.1) mmol/L Chloride (98-107) mmol/L Carbon Dioxide (22-30) mmol/L Anion Gap mmol/L BUN (9-20) mg/dL Creatinine (0.66-1.25) mg/dL Est GFR (CKD-EPI)AfAm (>60 ml/min/1.73 sqM) Est GFR (CKD-EPI)NonAf (>60 ml/min/1.73 sqM) Glucose (74-99) mg/dL Plasma Lactic Acid Massimo 0.9 (0.7-2.0) mmol/L Calcium (8.4-10.2) mg/dL Phosphorus (2.5-4.5) mg/dL Magnesium (1.6-2.3) mg/dL Total Bilirubin (0.2-1.3) mg/dL AST (17-59) U/L ALT (21-72) U/L Alkaline Phosphatase (38-126) U/L Total Creatine Kinase (55-170) U/L CK-MB (CK-2) (0.0-2.4) ng/mL CK-MB (CK-2) Rel Index Total Protein (6.3-8.2) g/dL Albumin (3.5-5.0) g/dL Influenza Type A RNA (Not Detectd) Influenza Type B (PCR) (Not Detectd) Blood Type A Positive Blood Type Recheck No Antibody Screen NEGATIVE Spec Expiration Date 11/21/2017 - 233811/18/17 Range/Units 14:39 WBC (3.8-10.6) k/uL RBC (4.30-5.90) m/uL Hgb (13.0-17.5) gm/dL Hct (39.0-53.0) % MCV (80.0-100.0) fL MCH (25.0-35.0) pg MCHC (31.0-37.0) g/dL RDW (11.5-15.5) % Plt Count (150-450) k/uL Neutrophils % % Lymphocytes % % Monocytes % % Eosinophils % % Basophils % % Neutrophils # (1.3-7.7) k/uL Lymphocytes # (1.0-4.8) k/uL Monocytes # (0-1.0) k/uL Eosinophils # (0-0.7) k/uL Basophils # (0-0.2) k/uL Hypochromasia PT (9.0-12.0) sec INR (<1.2) APTT (22.0-30.0) sec Sodium (137-145) mmol/L Potassium (3.5-5.1) mmol/L Chloride (98-107) mmol/L Carbon Dioxide (22-30) mmol/L Anion Gap mmol/L BUN (9-20) mg/dL Creatinine (0.66-1.25) mg/dL Est GFR (CKD-EPI)AfAm (>60 ml/min/1.73 sqM) Est GFR (CKD-EPI)NonAf (>60 ml/min/1.73 sqM) Glucose (74-99) mg/dL Plasma Lactic Acid Massimo (0.7-2.0) mmol/L Calcium (8.4-10.2) mg/dL Phosphorus (2.5-4.5) mg/dL Magnesium (1.6-2.3) mg/dL Total Bilirubin (0.2-1.3) mg/dL AST (17-59) U/L ALT (21-72) U/L Alkaline Phosphatase (38-126) U/L Total Creatine Kinase (55-170) U/L CK-MB (CK-2) (0.0-2.4) ng/mL CK-MB (CK-2) Rel Index Total Protein (6.3-8.2) g/dL Albumin (3.5-5.0) g/dL Influenza Type A RNA Not Detected (Not Detectd) Influenza Type B (PCR) Not Detected (Not Detectd) Blood Type Blood Type Recheck Antibody Screen Spec Expiration Date Critical Care Time Critical Care Time: Yes Total Critical Care Time: 35 Disposition Clinical Impression: Fever, Hypertensive urgency, ESRD (end stage renal disease) on dialysis, Fluid overload Disposition: ADMITTED IP TO THIS [facility] Condition: Serious Is patient prescribed a controlled substance at d/c from ED?: No Referrals: Scott Augilar Jr, DO [Primary Care Provider] - 1-2 days Decision to Admit Reason: Admit from EC Decision Date: 11/18/17 Decision Time: 15:46
[2017-11-18] MEDS ORDERED: ACETAMINOPHEN TAB 500 MG TAB PO STA (14:28)
[2017-11-18] MEDS ORDERED: NITROGLYCERIN-D5W PMX 50 MG in DEXTROSE/WATER 1 250ML.BAG IV ONE (14:39)
[2017-11-18 14:42] LABS: Albumin 3.1 g/dL (3.5-5.0); Calcium 8.2 mg/dL (8.4-10.2); Magnesium 1.8 mg/dL (1.6-2.3); Phosphorus 6.2 mg/dL (2.5-4.5); Potassium 5.1 mmol/L (3.5-5.1); Total Bilirubin 0.6 mg/dL (0.2-1.3)
[2017-11-18 14:44] LABS: INR 1.1 (<1.2); Partial Thromboplastin Time 25.6 sec (22.0-30.0); Prothrombin Time 10.4 sec (9.0-12.0)
[2017-11-18 14:47] LABS: Basophils % (A) 0 %; Eosinophils # (A) 0.1 k/uL (0-0.7); Eosinophils % (A) 1 %; HCT 30.9 % (39.0-53.0); HGB 9.5 gm/dL (13.0-17.5); Hypochromasia Moderate; Lymphocytes # (A) 0.4 k/uL (1.0-4.8); Lymphocytes % (A) 3 %; MCH 25.6 pg (25.0-35.0); MCHC 30.7 g/dL (31.0-37.0); MCV 83.4 fL (80.0-100.0); Mean Platelet Volume 7.3; Monocytes # (A) 0.3 k/uL (0-1.0); Monocytes % (A) 3 %; Neutrophils # (A) 11.9 k/uL (1.3-7.7); Neutrophils % (A) 93 %; Platelet Count 264 k/uL (150-450); RBC 3.71 m/uL (4.30-5.90); RDW 15.8 % (11.5-15.5); WBC 12.8 k/uL (3.8-10.6)
--- NOTE | 2017-11-18 14:48 | XR ---
EXAMINATION TYPE: XR chest 2V DATE OF EXAM: 11/18/2017 COMPARISON: Chest x-ray July 12, 2017 HISTORY: Weakness. TECHNIQUE: Frontal and lateral views of the chest are obtained. FINDINGS: There is stable right internal jugular dual-lumen dialysis catheter. There is persistent ca rdiomegaly with new new central vascular congestion. There is slight blunting of posterior costophren ic angles consistent with tiny bilateral pleural effusions. Some fluid extends into inferior major fi ssures on lateral view. The osseous structures are intact. IMPRESSION: Suspect CHF exacerbation as there is cardiomegaly with new central vascular congestion a nd tiny bilateral pleural effusions now present.
[2017-11-18 15:10] LABS: Creatine Kinase MB 4.8 ng/mL (0.0-2.4)
[2017-11-18] MEDS ORDERED: VANCOMYCIN IV PER PHARMACY 1 EACH MISC MISCELLANE PRN (15:10)
[2017-11-18] MEDS ORDERED: cefTRIAXone IN SWFI 1,000 MG/10 ML SYRINGE IVP STA (15:10)
[2017-11-18] MEDS ORDERED: MORPHINE SULFATE 4 MG/ML SYRINGE IVP STA (15:12)
[2017-11-18] MEDS ORDERED: VANCOMYCIN 1,500 MG in SODIUM CHLORIDE 0.9% 250 ML IVPB STA (15:20)
[2017-11-18] MEDS ORDERED: NALOXONE 0.4 MG/ML 1 ML VIAL IV PRN (15:39)
[2017-11-18] MEDS ORDERED: ACETAMINOPHEN TAB 325 MG TAB PO PRN (15:39)
[2017-11-18] MEDS ORDERED: ONDANSETRON 4 MG TAB PO PRN (17:52)
[2017-11-18 18:06] LABS: Glucose,Whole Blood 102 mg/dL (75-99)
[2017-11-18] MEDS ORDERED: cloNIDine HCL 0.2 MG TAB PO STA (18:08)
[2017-11-18] MEDS ORDERED: cloNIDine HCL 0.2 MG TAB ONE (18:09)
[2017-11-18 18:17] LABS: Amylase 45 U/L (30-110); Lipase 25 U/L (23-300)
[2017-11-18 18:57] LABS: Glucose,Whole Blood 95 mg/dL (75-99)
[2017-11-18] MEDS ORDERED: HEPARIN SODIUM,PORCINE 5,000 UNIT/ML 1 ML VIAL ONE (19:00)
[2017-11-18] MEDS: TAMSULOSIN 0.4 MG CAP.ER.24H PO SCH (21:50)
[2017-11-18] MEDS: ATORVASTATIN 80 MG TAB PO SCH (21:50)
[2017-11-18] MEDS: SODIUM BICARBONATE TAB 650 MG TAB PO SCH (21:50)
[2017-11-18] MEDS: acetaZOLAMIDE 250 MG TAB PO SCH (21:51)
[2017-11-18] MEDS: SEVELAMER 800 MG TAB PO SCH ×2 (21:51→21:57)
[2017-11-18] MEDS: AMIODARONE 200 MG TAB PO SCH (21:51)
[2017-11-18] MEDS: INSULIN DETEMIR 100 UNIT/ML 10 ML VIAL SQ SCH (21:56)
[2017-11-18 21:58] LABS: Glucose,Whole Blood 90 mg/dL (75-99)
[2017-11-18] MEDS: traMADol 50 MG TAB PO PRN (22:02)
[2017-11-19 01:03] LABS: Hepatitis A Antibody IgM Non-Reactive (Non-Reactive); Hepatitis B Core IgM Non-Reactive (Non-Reactive)
[2017-11-19 05:27] LABS: Anisocytosis Slight; Basophils % (A) 1 %; Eosinophils # (A) 0.1 k/uL (0-0.7); Eosinophils % (A) 1 %; HCT 28.6 % (39.0-53.0); HGB 8.6 gm/dL (13.0-17.5); Hypochromasia Marked; Lymphocytes # (A) 0.6 k/uL (1.0-4.8); Lymphocytes % (A) 12 %; MCH 25.3 pg (25.0-35.0); MCHC 30.2 g/dL (31.0-37.0); MCV 83.8 fL (80.0-100.0); Mean Platelet Volume 7.4; Monocytes # (A) 0.3 k/uL (0-1.0); Monocytes % (A) 5 %; Neutrophils # (A) 4.1 k/uL (1.3-7.7); Neutrophils % (A) 80 %; Platelet Count 239 k/uL (150-450); RBC 3.41 m/uL (4.30-5.90); WBC 5.2 k/uL (3.8-10.6)
[2017-11-19 05:41] LABS: Albumin 2.6 g/dL (3.5-5.0); Magnesium 1.8 mg/dL (1.6-2.3); Potassium 3.7 mmol/L (3.5-5.1); Total Bilirubin 0.4 mg/dL (0.2-1.3); Total Protein 6.1 g/dL (6.3-8.2)
[2017-11-19] MEDS: CLEVIDIPINE BUTYRATE 25 MG in EMPTY BAG 1 BAG IV SCH ×3 (06:09→23:19)
[2017-11-19] MEDS: LEVOTHYROXINE 25 MCG TAB PO SCH (06:10)
[2017-11-19 07:13] LABS: Glucose,Whole Blood 90 mg/dL (75-99)
[2017-11-19] MEDS ORDERED: POTASSIUM CHLORIDE ER 20 MEQ TAB.ER PO SCH (08:00)
--- NOTE | 2017-11-19 08:16 | XR ---
EXAMINATION TYPE: XR chest 1V portable DATE OF EXAM: 11/19/2017 COMPARISON: 11/18/2017 HISTORY: Chest pain TECHNIQUE: Single frontal view of the chest is obtained. FINDINGS: Large bore central venous line unchanged in position. Pulmonary venous congestion with cardiomegaly and small effusions. Left basilar infiltrate or atelectasis suspected. IMPRESSION: 1. Increasing left basilar atelectasis and/or infiltrate. 2. Increasing pulmonary venous congestion.
[2017-11-19] MEDS: CALCIUM ACETATE 667 MG CAP PO SCH ×3 (09:34→16:39)
[2017-11-19] MEDS: amLODIPine 10 MG TAB PO SCH (09:35)
[2017-11-19] MEDS: AMIODARONE 200 MG TAB PO SCH ×2 (09:35→21:28)
[2017-11-19] MEDS: SEVELAMER 800 MG TAB PO SCH ×4 (09:35→21:31)
[2017-11-19] MEDS: acetaZOLAMIDE 250 MG TAB PO SCH ×2 (09:35→21:28)
[2017-11-19] MEDS: THIAMINE 100 MG TAB PO SCH (09:36)
[2017-11-19] MEDS: SODIUM BICARBONATE TAB 650 MG TAB PO SCH ×2 (09:36→21:28)
[2017-11-19] MEDS ORDERED: VANCOMYCIN 1,500 MG in SODIUM CHLORIDE 0.9% 250 ML IVPB ONE (10:00)
--- NOTE | 2017-11-19 10:58 | P.HPIM ---
History of Present Illness H&P Date: 11/19/17 Chief Complaint: Weakness, nausea, vomiting 46-year-old male who presented to the emergency room with a chief complaint of generalized weakness, fatigue, nausea, vomiting, and hypertension. Patient was recently hospitalized from 10/25/2017 until 11/08/2017. During that admission, patient had been having difficulty with his PD catheter. He underwent shuntogram which revealed significant fibrin sheath around the catheter. Dr. Adorno performed laparoscopic repositioning of peritoneal dialysis catheter. The patient was started on low volume peritoneal dialysis. When his peritoneal dialysis volumes were increased, the patient began having difficulty with abdominal pain and nausea with peritoneal dialysis exchanges. The patient decided to stop PD and continue on hemodialysis. His schedule is , , . He has a right chest wall dialysis catheter secondary to peritonitis in 2016 when his peritoneal dialysis catheter had to be removed and he was placed on hemodialysis at that time. The patient states he went to dialysis on Wednesday. He started feeling nauseous and weak Wednesday night. He states he was unable to go to dialysis on Wednesday due to "feeling awful". He states he was too nauseous and weak. His home health care nurse came to his house and apparently his blood pressure was significantly elevated and he was having a hard time breathing. He was brought to [facility] for further evaluation. He was found to be febrile upon admission. Blood cultures and urine cultures are pending. He was started on Vancomycin. The patient was extremely hypertensive. He was placed on Nitro drip with little improvement in his blood pressure. This morning he has been switched to Clevidpine which is currently infusing at 6mg/hr which improvement in his blood pressure. The patient is scheduled to have hemodialysis today. The patient also has a history of coronary artery disease, diabetes, DVT, GERD, hypertension, hyperlipidemia, myocardial infarction, peripheral vascular disease with a left [id number] amputation. 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 He also has a chronic wound on his right foot and follows with Dr. Sy in the wound center. Chest x-ray 11/18/2017: Suspect CHF exacerbation as there is cardiomegaly with new central vascular congestion and tiny bilateral pleural effusions. Chest x-ray 11/19/2017: Increasing left basilar atelectasis and/or infiltrate. Increasing pulmonary venous congestion. Laboratory data: WBC 12.8. Hemoglobin 9.5. Platelet count 264. Sodium 136. Potassium 5.1. BUN 45. Creatinine 8.17. Calcium 8.2. Phosphorus 6.2. Magnesium 1.8. BNP: 173,000 Testing for influenza A and B was negative. Hepatitis panel nonreactive. C. difficile negative The patient was admitted to the hospital under the care of Dr. Aguilar. Consultations were placed to nephrology and also Dr. Scott for ICU management. Review of Systems Those systems with pertinent positive or pertinent negative responses have been documented in the HPI Past Medical History Past Medical History: Diabetes Mellitus, Diabetes Mellitus, Dialysis, Deep Vein Thrombosis (DVT), GERD/Reflux, Hyperlipidemia, Hypertension, Myocardial Infarction ([place]), Renal Disease, Seizure Disorder, Thyroid Disorder, Vascular Disorder Additional Past Medical History / Comment(s): End stage renal disease on hemodialysis, previous history of peritoneal dialysis, currently undergoing hemodialysis MWF, diabetic nephropathy, neuropathy and diabetic retinopathy in addition to diabetic gastroparesis, chronic anemia, previous history of a upper extremity DVT related to IV lines, below-knee amputation on the left, peripheral vascular disease, hypothyroidism, peripheral vascular disease, seizure disorder, coronary artery disease, previous myocardial infarction, acid reflux, hyperlipidemia, MRSA wound infections, right lower extremity leg and foot ulceration goes to [facility] on tuesdays Last Myocardial Infarction Date:: 2012 History of Any Multi-Drug Resistant Organisms: MRSA Date of last positivie culture/infection: 07/01/17 MDRO Source:: RIGHT FOOT Past Surgical History: Orthopedic Surgery Additional Past Surgical History / Comment(s): peritoneal dialysis cath - since removed d/t malfunctioning cath and started on hemodialysis, I&D R foot/ lateral R leg, amputation right partial foot & right BKA GEORGE CATARACTS, VITRECTOMY,GEORGE RETINAL SX Past Anesthesia/Blood Transfusion Reactions: No Reported Reaction Additional Past Anesthesia/Blood Transfusion Reaction / Comment(s): Pt has received blood without reaction. Smoking Status: Never smoker - Past Family History Father Family Medical History: Cancer Additional Family Medical History / Comment(s): CANCER FROM [employer] [place] Mother History Unknown: Yes Family Medical History: Cancer, Supraventricular Tachycardia (SVT) Additional Family Medical History / Comment(s): LUNG CANCER(SMOKER) Medications and Allergies Home Medications Medication Instructions Recorded Confirmed Type Atorvastatin [Lipitor] 80 mg PO HS 04/08/15 11/18/17 History Calcium Acetate [PhosLo] 667 mg PO TID-W/MEALS 04/08/15 11/18/17 History Insulin Glargine [Lantus] 10 unit SQ HS 04/08/15 11/18/17 History Levothyroxine Sodium [Synthroid] 25 mcg PO DAILY 04/08/15 11/18/17 History Sevelamer [Renvela] 800 mg PO QID 01/20/16 11/18/17 History Amiodarone [Cordarone] 200 mg PO BID 05/20/17 11/18/17 History Dilcia Jordan 1,600 mg PO BID 05/20/17 11/18/17 History Tamsulosin [Flomax] 0.8 mg PO PC-SUPPER 05/20/17 11/18/17 History Thiamine [Vitamin B-1] 100 mg PO DAILY 05/20/17 11/18/17 History amLODIPine [Norvasc] 10 mg PO DAILY 05/20/17 11/18/17 History Ammonium Lactate Lotion 1 applic TOPICAL BID #240 ml 07/20/17 11/18/17 Rx [Lac-Hydrin 12% Lotion] Gabapentin [Neurontin] 300 mg PO TID 08/06/17 11/18/17 History Insulin Aspart [NovoLOG Flexpen] 3 units SQ TID-W/MEALS 08/06/17 11/18/17 History Ondansetron [Zofran] 4 mg PO Q8HR PRN 08/06/17 11/18/17 History traMADol HCL [Ultram] 50 mg PO Q6HR PRN 08/06/17 11/18/17 History levETIRAcetam [Keppra] 750 mg PO BID 10/25/17 11/18/17 History Sodium Bicarbonate Tab 650 mg PO BID #60 tab 11/08/17 11/18/17 Rx acetaZOLAMIDE [Diamox] 125 mg PO BID #60 tab 11/08/17 11/18/17 Rx Allergies Allergy/AdvReac Type Severity Reaction Status Date / Time No Known Allergies Allergy Verified 11/18/17 14:08 Physical Exam Vitals: Vital Signs Temp Pulse Pulse Resp BP Pulse Ox 11/19/17 09:00 70 10 L 114/62 94 L 11/19/17 08:30 72 15 112/67 93 L 11/19/17 08:00 97.5 F L 72 15 118/67 92 L 11/19/17 07:30 76 10 L 118/69 94 L 11/19/17 07:00 74 14 122/71 94 L 11/19/17 06:40 71 14 103/66 97 11/19/17 06:35 66 9 L 168/101 93 L 11/19/17 06:30 67 10 L 168/101 95 11/19/17 06:15 66 11 L 167/100 96 11/19/17 06:10 66 12 173/93 97 11/19/17 06:00 69 8 L 177/103 98 11/19/17 05:30 71 14 164/97 97 11/19/17 05:00 64 15 186/101 99 11/19/17 04:30 98.2 F 64 11 L 167/99 99 11/19/17 04:00 62 10 L 179/102 98 11/19/17 03:30 67 11 L 190/105 99 11/19/17 03:00 66 15 189/104 100 11/19/17 02:30 72 13 189/107 99 11/19/17 02:00 64 9 L 185/98 98 11/19/17 01:30 64 10 L 187/101 98 11/19/17 01:00 64 11 L 180/101 99 11/19/17 00:30 98.0 F 67 10 L 195/102 99 11/19/17 00:00 65 9 L 181/99 99 11/18/17 23:40 68 15 177/98 99 11/18/17 23:20 65 9 L 179/99 100 11/18/17 23:00 66 12 189/100 99 11/18/17 22:40 97.7 F 68 14 193/102 99 11/18/17 22:20 72 10 L 140/105 99 11/18/17 22:00 72 10 L 192/106 99 11/18/17 21:40 72 11 L 171/96 97 11/18/17 21:20 71 10 L 158/96 90 L 11/18/17 21:00 70 9 L 174/103 95 11/18/17 20:40 76 16 180/108 98 11/18/17 20:20 98 F 72 11 L 187/108 98 05/10/18 20:00 78 12 172/104 96 11/18/17 19:40 78 13 195/109 97 11/18/17 19:20 82 12 188/108 96 11/18/17 19:10 85 28 H 188/108 94 L 11/18/17 18:50 98.5 F 88 22 195/119 95 11/18/17 18:09 98.5 F 11/18/17 17:58 76 18 185/104 100 11/18/17 17:06 98.6 F 84 18 186/104 98 11/18/17 16:41 83 18 183/103 96 11/18/17 16:18 84 18 180/107 95 11/18/17 15:56 87 18 194/113 11/18/17 15:42 88 18 197/113 11/18/17 15:31 100.8 F H 85 18 203/120 95 11/18/17 15:10 89 18 223/117 97 11/18/17 14:30 88 11/18/17 14:20 102.1 F H 90 18 213/118 96 11/18/17 14:15 18 70 L 11/18/17 13:02 100.2 F H 95 18 212/115 88 L Intake and Output 11/18/17 11/19/17 11/19/17 22:59 06:59 14:59 Intake Total 36.35 215.834 30 Output Total 4001 Balance -3964.65 215.834 30 Intake: IV 30 80 30 0.9 NaCl- for a carrier 30 80 30 Intake, IV Titration 6.35 135.834 Amount Clevidipine Butyrate 25 2.834 mg In Empty Bag 1 bag @ 1 MG/HR 2 mls/hr IV .Q24H [facility] Rx#:[id number] Nitroglycerin-D5w Pmx 50 6.35 133 mg In Dextrose/Water 1 250ml.bag @ 10 MCG/MIN 3 mls/hr IV .Q24H [facility] Rx#: [id number] Output: Stool 1 Other 4000 Other: Voiding Method Urinal # Bowel Movements 1 Weight 95 kg 88 kg GENERAL: This is a 46-year-old male in no apparent distress at the time of examination, how he appears to be ill feeling. Pleasant and cooperative. HEENT: Head is atraumatic, normocephalic. Pupils are equal, round, and reactive to light. Sclerae anicteric. Conjunctivae are clear. Mucus membranes of the mouth are moist. Neck is supple. RESPIRATORY: Diminished with rales present to bilateral bases. No use of accessory muscles. Patient maintaining oxygen saturation greater than 92% on 5L NC. No chest wall tenderness is noted on palpation or with deep breathing. CARDIOVASCULAR: Dialysis catheter noted to right chest wall. Regular rate and rhythm. S1 and S2 noted. No systolic or diastolic murmur auscultated. No JVD noted. No S3 or S4 noted. GASTROINTESTINAL: Mild distention noted. Abdomen soft and round. Normal active bowel sounds auscultated x 4 quadrants. No pain or tenderness noted upon palpation. INTEGUMENTARY: No cyanosis. No jaundice. No rashes noted. No cellulitis noted. EXTREMITIES: Left BKA noted. Partial right foot amputation. Right foot with gauze dressing noted. NEUROLOGIC: Cranial nerves II-XII intact. PSYCHIATRIC: Awake, alert, and oriented X 3. Appropriate affect. Intact judgement and insight. Results CBC & Chem 7: 11/19/17 05:06 11/19/17 05:06 Labs: Abnormal Lab Results - Last 24 Hours (Table) 11/18/17 11/18/17 11/18/17 Range/Units 14:39 14:39 14:39 WBC 12.8 H (3.8-10.6) k/uL RBC 3.71 L (4.30-5.90) m/uL Hgb 9.5 L (13.0-17.5) gm/dL Hct 30.9 L (39.0-53.0) % MCHC 30.7 L (31.0-37.0) g/dL RDW 15.8 H (11.5-15.5) % Neutrophils # 11.9 H (1.3-7.7) k/uL Lymphocytes # 0.4 L (1.0-4.8) k/uL Sodium 136 L (137-145) mmol/L Chloride 95 L (98-107) mmol/L BUN 45 H (9-20) mg/dL Creatinine 8.17 H* (0.66-1.25) mg/dL Glucose 106 H (74-99) mg/dL POC Glucose (mg/dL) (75-99) mg/dL Calcium 8.2 L (8.4-10.2) mg/dL Phosphorus 6.2 H (2.5-4.5) mg/dL AST 67 H (17-59) U/L Alkaline Phosphatase 172 H (38-126) U/L CK-MB (CK-2) 4.8 H* (0.0-2.4) ng/mL Total Protein (6.3-8.2) g/dL Albumin 3.1 L (3.5-5.0) g/dL 11/18/17 11/19/17 11/19/17 Range/Units 18:04 05:06 05:06 WBC (3.8-10.6) k/uL RBC 3.41 L (4.30-5.90) m/uL Hgb 8.6 L (13.0-17.5) gm/dL Hct 28.6 L (39.0-53.0) % MCHC 30.2 L (31.0-37.0) g/dL RDW 16.0 H (11.5-15.5) % Neutrophils # (1.3-7.7) k/uL Lymphocytes # 0.6 L (1.0-4.8) k/uL Sodium 135 L (137-145) mmol/L Chloride 95 L (98-107) mmol/L BUN 29 H (9-20) mg/dL Creatinine 5.80 H* (0.66-1.25) mg/dL Glucose (74-99) mg/dL POC Glucose (mg/dL) 102 H (75-99) mg/dL Calcium 8.0 L (8.4-10.2) mg/dL Phosphorus 5.0 H (2.5-4.5) mg/dL AST 70 H (17-59) U/L Alkaline Phosphatase 134 H (38-126) U/L CK-MB (CK-2) (0.0-2.4) ng/mL Total Protein 6.1 L (6.3-8.2) g/dL Albumin 2.6 L (3.5-5.0) g/dL Thrombosis Risk Factor Assmnt - Choose All That Apply Each Factor Represents 1 point: Age 41-60 years Other congenital or acquired thrombophilia - If yes, enter type in comment: No Thrombosis Risk Factor Assessment Total Risk Factor Score: 1 Thrombosis Risk Factor Assessment Level: Low Risk Assessment and Plan Plan: ASSESSMENT: Chronic kidney disease, endstage, currently on hemodialysis M, W, F. Patient missed dialysis 11/17/2017 Nausea and vomiting, likely secondary to combination of diabetic gastroparesis and missed dialysis session Fluid overfluid with shortness of breath secondary to missed dialysis session Hypertensive emergency, BP 212/115 upon admission, requiring IV Clevidipine Leukocytosis with fever, T-max 102.1, rule out infectious process, cultures pending Recent hospitalization secondary to malfunctioning peritoneal dialysis catheter , which was removed and patient was transitioned back to hemodialysis Hospitalization in July 2017 for nausea and vomiting secondary to diabetic gastroparesis, patient signed out AMA Hospitalization in 2016 for peritonitis, PD catheter removed at that time and patient was transitioned to HD Peripheral vascular disease with history of left BKA and right partial foot amputation Diabetic ulcer to right plantar foot and right lateral leg, follows with Dr. Sy in wound care center Diabetes mellitus, type II History of seizures Coronary artery disease with previous myocardial infarction History of MRSA infection in left lower extremity Hyperphosphatemia, secondary to end-stage renal disease PLAN: Continue ICU management per Dr. Scott Continue Clevidipine for BP control Nephrology on consult. Appreciate recommendations and input Patient to receive hemodialysis today Repeat CXR in AM Continue Vancomycin Await results of blood and urine cultures Patients nausea and vomiting is likely due to combination of missed dialysis session and diabetic gastroparesis as patient has had multiple hospital admissions secondary to nausea and vomiting which improve after patient receives dialysis Home meds as appropriate Monitor labs GI prophylaxis: Pepcid 20mg IV Q12 hours DVT prophylaxis: Heparin 5000 units subcu every 8 hours Monitor vital signs and address as appropriate Further recommendations pending patient's course Nurse practitioner note has been reviewed by physician. Signing provider agrees with the documented findings, assessment, and plan of care.
[2017-11-19] MEDS: IPRATROPIUM-ALBUTEROL 3 ML NEB INHALATION SCH ×4 (11:48→19:15)
[2017-11-19 11:53] LABS: Glucose,Whole Blood 84 mg/dL (75-99)
[2017-11-19] MEDS ORDERED: DARBEPOETIN ALFA 40 MCG/0.4 ML SYRINGE SQ SCH (12:00)
--- NOTE | 2017-11-19 12:02 | CONS ---
CONSULTATION REASON FOR CONSULT: End-stage renal disease. HISTORY OF PRESENT ILLNESS: Patient is a 46-year-old male with history of end-stage renal disease, initially on peritoneal dialysis, now switched over to hemodialysis for about a month now. The patient was admitted to the hospital with complaints of shortness of breath and feeling poorly. He had missed his dialysis on Wednesday. The patient was significantly fluid overloaded. He was dialyzed yesterday with UF of about 4 L and he is scheduled for dialysis again today. No history of fever. He has had mild diarrhea. The patient did have some abdominal pain. No significant vomiting. No chest pains. PAST MEDICAL HISTORY: DVT, gastroesophageal reflux disease, hypertension, [place], peripheral vascular disease, previous history of MRSA wound infection, CHF, CKD mineral bone disorder, anemia of chronic disease, seizure disorder, hypothyroidism, gastroparesis. PAST SURGICAL HISTORY: Left BKA, surgery on the forefoot on the right side, peritoneal dialysis catheter placement and removal, hemodialysis catheter placement right IJ, cataract surgery, vitrectomy. SOCIAL HISTORY: Negative for smoking, drug abuse or alcohol abuse. MEDICATIONS: Medications at home include Lipitor, PhosLo, insulin, Renvela, amiodarone, Flomax, Norvasc, vitamin B, Neurontin, Zofran, Ultram, Keppra, Diamox. ALLERGIES: None. PHYSICAL EXAMINATION: On examination, patient is currently comfortable, awake. He is not in any acute distress. Blood pressure was 114/62, heart rate 70 per minute. He is afebrile. EXAMINATION OF THE HEART: S1, S2. EXAMINATION OF THE LUNGS: Decreased breath sounds at bases. Abdomen is soft, nontender. Examination of the lower extremities shows left BKA, right forefoot amputation. No significant edema is noted. BISQUE FINISHER exam is grossly intact. LABS: Labs show sodium 135, potassium 3.7, hemoglobin 8.6, phosphorus 5.0, magnesium 1.8, albumin 2.6. ASSESSMENT: 1. End-stage renal disease, on hemodialysis on a Wednesday, Wednesday, Wednesday schedule. Patient was dialyzed yesterday as he had missed his treatment the day before. We will dialyze him again today. 2. Volume overload/congestive heart failure, currently improved. Will try again for about 3 L. 3. Hypertension, partly volume sensitive, uncontrolled. The patient is currently on Cleviprex drip which we can wean off. He is maintained on Norvasc. We can add lisinopril to help the Cleviprex drip. The blood pressure should also improve with hemodialysis. 4. Peripheral vascular disease, status post left below knee amputation. 5. Chronic kidney disease mineral bone disorder. 6. Nausea and vomiting, possibly related to gastroparesis. 7. History of coronary artery disease with previous history of myocardial infarction. 8. Previous history of peritonitis, status post PD catheter removal, now switched over to hemodialysis. 9. Anemia of chronic disease. No active bleeding noted. Add Aranesp. PLAN: Repeat hemodialysis today, try to wean off Cleviprex drip, add PERLITA inhibitors if blood pressure remains elevated and start patient on Aranesp. MMODL / IJN: [id number] /
[2017-11-19] MEDS: MAGNESIUM SULFATE-D5W PMX 1 GM in DEXTROSE/WATER 1 100ML.BAG IVPB SCH ×2 (13:02→13:04)
[2017-11-19 14:11] LABS: Hemoglobin A1C 6.3 % (4.0-6.0)
--- NOTE | 2017-11-19 14:48 | P.PN ---
Subjective Progress Note Date: 11/19/17 This is a 46-year-old male patient was hospitalized today and was brought into the intensive care unit because of missing dialysis, fluid overload, hypertension, generalized weakness and shortness of breath. He apparently missed dialysis on Wednesday secondary to fatigue and generalized weakness. He had a mild cough and no chest pain. According to the home health care, the patient's blood pressure was significantly elevated and the pulse ox was also low. He had some emesis and diarrhea over the past 48 hours. No chest pain. No fever or chills. Chest x-ray was done in the emergency department and the patient had some cardiomegaly and pulmonary vessel congestion. Right hemidiaphragm is elevated and the patient has a temporary dialysis catheter in the right IJ. The patient had a temperature 100.8 in the emergency department. Initial blood pressure was 203 of 120 with a pulse ox of 95% on 5 L of oxygen by nasal cannula. Based on this, the patient was started on nitroglycerin drip. The patient will be having a stat dialysis and nephrology has been informed of these. Blood cultures were sent and the patient was started also on broad-spectrum antibiotics and the patient was given a dose of vancomycin in the emergency department in addition to a dose of IV Rocephin. This patient has multiple medical problems and comorbidities. He has diabetes mellitus type 2 with multiple complications related to diabetes including end- stage renal disease. He was initially started on peritoneal dialysis to which she subsequently failed and he was recently switched to hemodialysis. He has also history of hypertension, hyperlipidemia, acid reflux, coronary artery disease with previous GA, hypothyroidism and seizure disorder. He has had multiple hospitalizations in the past. His peritoneal dialysis has been removed and the patient is currently being dialyzed to a temporary dialysis catheter. He has had previous below knee amputation for severe peripheral vascular disease. He has a previous history of MRSA in the past. He has had cataracts and previous eye surgery/and laser eye surgery for diabetic retinopathy. He has also previous history of DVT. He has seen also Dr. Sy regarding chronic lower extremities ulceration. Other medical problems are previous history of TIA, diabetic gastroparesis, peripheral neuropathy, chronic anemia and previous history of compression fracture of the vertebral spine. His DVT was related to a previous IV line in the upper extremity on the left. On subsequent evaluation of 11/19/2018 the patient is being seen in the intensive care unit. The patient is looking well. Less short of breath compared to yesterday. He underwent hemodialysis yesterday and total of 3.5 L of fluid was removed. A repeat hemodialysis will be done today. The patient meanwhile is less short of breath. The patient is still on Cleviprex drip at 2 mg per hour for blood pressure control. Note that the patient typically runs a lower blood pressure. He has been maintained on Norvasc on outpatient basis which was also resumed. Also, the patient has not developed any fever over the past 12 hours. Cultures are still negative. The wound in the left lower oximetry was inspected and ID was consulted. The exit site of the dialysis catheter is also clean and intact. The chest x-ray showing increased left basilar atelectasis/infiltrates in addition to some mild four-vessel congestion. Minimal cough. No pleurisy. No hemoptysis. No other complaints otherwise. Lantus insulin has been placed on hold as the patient's oral intake is diminished. He is having some nausea. He was having loose diuretic bowel movements and none has witnessed in the ICU since yesterday. Objective - Vital Signs Vital signs: Vital Signs Temp 97.6 F 11/19/17 12:00 Pulse 76 11/19/17 14:00 Resp 20 11/19/17 14:00 BP 181/96 11/19/17 14:00 Pulse Ox 95 11/19/17 14:00 Intake & Output 11/18/17 11/19/17 11/19/17 18:59 06:59 18:59 Intake Total 6.35 245.834 803.4 Output Total 1 4000 Balance 5.35 -3754.166 803.4 Weight 95 kg 88 kg Intake: IV 110 260 0.9 NaCl- for a carrier 110 60 Magnesium Sulfate-D5w Pmx 200 1 gm In Dextrose/Water 1 100ml.bag @ 100 mls/hr IVPB Q1H TRAE Rx#: [id number] Intake, IV Titration 6.35 135.834 43.4 Amount Clevidipine Butyrate 25 2.834 43.4 mg In Empty Bag 1 bag @ 1 MG/HR 2 mls/hr IV .Q24H TRAE Rx#:[id number] Nitroglycerin-D5w Pmx 50 6.35 133 mg In Dextrose/Water 1 250ml.bag @ 10 MCG/MIN 3 mls/hr IV .Q24H ONE Rx#: [id number] Oral 500 Output: Stool 1 Other 4000 Other: Voiding Method Urinal # Bowel Movements 1 - Exam Gen. appearance the patient is a mild degree of respiratory distress, awake and alert and following commands Head exam was generally normal. There was no scleral icterus or corneal arcus. Mucous membranes were moist. Neck was supple and without jugular venous distension, thyromegaly, or carotid bruits. Carotids were easily palpable bilaterally. There was no adenopathy. The patient has a permacath in his right IJ and exit site is clean Lung sounds are diminished bilaterally along with some bibasilar crackles Cardiac exam revealed the PMI to be normally situated and sized. The rhythm was regular and no extrasystoles were noted during several minutes of auscultation. The first and second heart sounds were normal and physiologic splitting of the second heart sound was noted. There were no murmurs, rubs, clicks, or gallops. Abdominal exam revealed normal bowel sounds. The abdomen was soft, non-tender, and without masses, organomegaly, or appreciable enlargement of the abdominal aorta. Extremities reveal a below-knee amputation on the left, chronic ulceration on the right, diminished pulse on the right, no cyanosis or clubbing. The patient also has partial right foot amputation. Neurologically awake and alert and following commands and answering questions appropriately - Labs CBC & Chem 7: 11/19/17 05:06 11/19/17 05:06 Labs: Abnormal Lab Results - Last 24 Hours (Table) 11/18/17 11/18/17 11/18/17 Range/Units 14:39 14:39 14:39 WBC 12.8 H (3.8-10.6) k/uL RBC 3.71 L (4.30-5.90) m/uL Hgb 9.5 L (13.0-17.5) gm/dL Hct 30.9 L (39.0-53.0) % MCHC 30.7 L (31.0-37.0) g/dL RDW 15.8 H (11.5-15.5) % Neutrophils # 11.9 H (1.3-7.7) k/uL Lymphocytes # 0.4 L (1.0-4.8) k/uL Sodium 136 L (137-145) mmol/L Chloride 95 L (98-107) mmol/L BUN 45 H (9-20) mg/dL Creatinine 8.17 H* (0.66-1.25) mg/dL Glucose 106 H (74-99) mg/dL POC Glucose (mg/dL) (75-99) mg/dL Hemoglobin A1c (4.0-6.0) % Calcium 8.2 L (8.4-10.2) mg/dL Phosphorus 6.2 H (2.5-4.5) mg/dL AST 67 H (17-59) U/L Alkaline Phosphatase 172 H (38-126) U/L CK-MB (CK-2) 4.8 H* (0.0-2.4) ng/mL Total Protein (6.3-8.2) g/dL Albumin 3.1 L (3.5-5.0) g/dL 11/18/17 11/19/17 11/19/17 Range/Units 18:04 05:06 05:06 WBC (3.8-10.6) k/uL RBC 3.41 L (4.30-5.90) m/uL Hgb 8.6 L (13.0-17.5) gm/dL Hct 28.6 L (39.0-53.0) % MCHC 30.2 L (31.0-37.0) g/dL RDW 16.0 H (11.5-15.5) % Neutrophils # (1.3-7.7) k/uL Lymphocytes # 0.6 L (1.0-4.8) k/uL Sodium 135 L (137-145) mmol/L Chloride 95 L (98-107) mmol/L BUN 29 H (9-20) mg/dL Creatinine 5.80 H* (0.66-1.25) mg/dL Glucose (74-99) mg/dL POC Glucose (mg/dL) 102 H (75-99) mg/dL Hemoglobin A1c (4.0-6.0) % Calcium 8.0 L (8.4-10.2) mg/dL Phosphorus 5.0 H (2.5-4.5) mg/dL AST 70 H (17-59) U/L Alkaline Phosphatase 134 H (38-126) U/L CK-MB (CK-2) (0.0-2.4) ng/mL Total Protein 6.1 L (6.3-8.2) g/dL Albumin 2.6 L (3.5-5.0) g/dL 11/19/17 Range/Units 05:06 WBC (3.8-10.6) k/uL RBC (4.30-5.90) m/uL Hgb (13.0-17.5) gm/dL Hct (39.0-53.0) % MCHC (31.0-37.0) g/dL RDW (11.5-15.5) % Neutrophils # (1.3-7.7) k/uL Lymphocytes # (1.0-4.8) k/uL Sodium (137-145) mmol/L Chloride (98-107) mmol/L BUN (9-20) mg/dL Creatinine (0.66-1.25) mg/dL Glucose (74-99) mg/dL POC Glucose (mg/dL) (75-99) mg/dL Hemoglobin A1c 6.3 H (4.0-6.0) % Calcium (8.4-10.2) mg/dL Phosphorus (2.5-4.5) mg/dL AST (17-59) U/L Alkaline Phosphatase (38-126) U/L CK-MB (CK-2) (0.0-2.4) ng/mL Total Protein (6.3-8.2) g/dL Albumin (3.5-5.0) g/dL Assessment and Plan Plan: Assessment 1 acute dyspnea/fluid overload, secondary to missed dialysis in the setting of dialysis-dependent renal failure and the patient underwent hemodialysis yesterday with removal of 3.5 L of fluid. Another dialysis to be done today. Chest x-ray from today still showing a component of pulmonary vessel congestion. Superimposed pneumonia is felt to be doubtful. 2 acute hypertensive emergency, likely secondary to missed dialysis in addition to a background hypertensive disorder. Patient failed to respond well to nitroglycerin drip. The patient was placed on Cleviprex for blood pressure control. His blood pressure is under better control and the patient is currently on 2 mg an hour. 3 dialysis-dependent renal failure currently on hemodialysis 3 times a week MWF and the patient missed his dialysis on Wednesday 4 preserved LV function with a component of hypertensive heart disease based on most his echocardiogram 5 coronary artery disease with previous GA 6 diabetic nephropathy 7 diabetic retinopathy 8 diabetic neuropathy 9 peripheral vascular disease with below-knee amputation on the left and partial dictation of the right foot along with chronic ulceration of the right lower extremity 10 previous MRSA soft tissue infection 11 fever, rule out underlying infection/sepsis, blood culture been sent and the patient was given a dose of Rocephin and vancomycin as an empiric antibiotic coverage 12 hyperlipidemia 13 seizure disorder 14 previous history of a left upper extremity DVT, line related 15 hypothyroidism 16 diabetic gastroparesis 17 chronic anemia 18 compression fracture of the vertebral spine Plan Repeat dialysis today. Monitor fluid balance. Repeat chest x-ray in the morning. Wean off the Cleviprex drip and discontinue. Continue oral Norvasc. Anticipate improvement of blood pressure control with dialysis and hemofiltration. Continue the current antibiotic coverage which is an empiric antibiotic coverage pending blood cultures. Local wound care to left lower extremity. Monitor blood sugars. Monitor hemodynamics. Monitor electrolytes. Keep the patient ICU for another 24 hours. We'll continue to follow.
--- NOTE | 2017-11-19 14:57 | P.CNPUL ---
History of Present Illness Consult date: 11/18/17 Reason for consult: dyspnea History of present illness: This is a 46-year-old male patient was hospitalized today and was brought into the intensive care unit because of missing dialysis, fluid overload, hypertension, generalized weakness and shortness of breath. He apparently missed dialysis on Wednesday secondary to fatigue and generalized weakness. He had a mild cough and no chest pain. According to the home health care, the patient's blood pressure was significantly elevated and the pulse ox was also low. He had some emesis and diarrhea over the past 48 hours. No chest pain. No fever or chills. Chest x-ray was done in the emergency department and the patient had some cardiomegaly and pulmonary vessel congestion. Right hemidiaphragm is elevated and the patient has a temporary dialysis catheter in the right IJ. The patient had a temperature 100.8 in the emergency department. Initial blood pressure was 203 of 120 with a pulse ox of 95% on 5 L of oxygen by nasal cannula. Based on this, the patient was started on nitroglycerin drip. The patient will be having a stat dialysis and nephrology has been informed of these. Blood cultures were sent and the patient was started also on broad-spectrum antibiotics and the patient was given a dose of vancomycin in the emergency department in addition to a dose of IV Rocephin. This patient has multiple medical problems and comorbidities. He has diabetes mellitus type 2 with multiple complications related to diabetes including end- stage renal disease. He was initially started on peritoneal dialysis to which she subsequently failed and he was recently switched to hemodialysis. He has also history of hypertension, hyperlipidemia, acid reflux, coronary artery disease with previous CT, hypothyroidism and seizure disorder. He has had multiple hospitalizations in the past. His peritoneal dialysis has been removed and the patient is currently being dialyzed to a temporary dialysis catheter. He has had previous below knee amputation for severe peripheral vascular disease. He has a previous history of MRSA in the past. He has had cataracts and previous eye surgery/and laser eye surgery for diabetic retinopathy. He has also previous history of DVT. He has seen also Dr. Sy regarding chronic lower extremities ulceration. Other medical problems are previous history of TIA, diabetic gastroparesis, peripheral neuropathy, chronic anemia and previous history of compression fracture of the vertebral spine. His DVT was related to a previous IV line in the upper extremity on the left. Review of Systems Constitutional: Reports fatigue, Reports fever, Reports weakness Eyes: bilateral blurred vision, bilateral decreased vision, denies bulging eye Ears: deny: decreased hearing, ear discharge, earache Ears, nose, mouth and throat: Denies headache, Denies sore throat Cardiovascular: Reports claudication, Reports dyspnea on exertion, Reports shortness of breath Respiratory: Reports dyspnea Gastrointestinal: Reports loss of appetite, Reports nausea, Reports vomiting Genitourinary: Reports as per HPI Musculoskeletal: Reports leg numbness/tingling, Reports limitation of motion, Reports muscle weakness, Reports prior amputations Musculoskeletal: bilateral: ankle pain, ankle stiffness, ankle swelling Integumentary: Reports sores Neurological: Denies numbness, Denies weakness Psychiatric: Reports anxiety, Reports depression Endocrine: Reports as per HPI Hematologic/Lymphatic: Reports as per HPI Allergic/Immunologic: Reports as per HPI Past Medical History Past Medical History: Diabetes Mellitus, Diabetes Mellitus, Dialysis, Deep Vein Thrombosis (DVT), GERD/Reflux, Hyperlipidemia, Hypertension, Myocardial Infarction (CT), Renal Disease, Seizure Disorder, Thyroid Disorder, Vascular Disorder Additional Past Medical History / Comment(s): End stage renal disease on hemodialysis, previous history of peritoneal dialysis, currently undergoing hemodialysis MWF, diabetic nephropathy, neuropathy and diabetic retinopathy in addition to diabetic gastroparesis, chronic anemia, previous history of a upper extremity DVT related to IV lines, below-knee amputation on the left, peripheral vascular disease, hypothyroidism, peripheral vascular disease, seizure disorder, coronary artery disease, previous myocardial infarction, acid reflux, hyperlipidemia, MRSA wound infections, right lower extremity leg and foot ulceration Last Myocardial Infarction Date:: 2012 History of Any Multi-Drug Resistant Organisms: MRSA Date of last positivie culture/infection: 07/01/17 MDRO Source:: RIGHT FOOT Past Surgical History: Orthopedic Surgery Additional Past Surgical History / Comment(s): HD catheter, I&D R foot/lateral R leg, amputation right partial foot & right BKA GEORGE CATARACTS,VITRECTOMY,GEORGE RETINAL SX Past Anesthesia/Blood Transfusion Reactions: No Reported Reaction Additional Past Anesthesia/Blood Transfusion Reaction / Comment(s): Pt has received blood without reaction. Past Psychological History: No Psychological Hx Reported Smoking Status: Never smoker Past Alcohol Use History: None Reported Past Drug Use History: None Reported - Past Family History Father Family Medical History: Cancer Additional Family Medical History / Comment(s): CANCER FROM [employer] Mother History Unknown: Yes Family Medical History: Cancer, Supraventricular Tachycardia (SVT) Additional Family Medical History / Comment(s): LUNG CANCER(SMOKER) Medications and Allergies Home Medications Medication Instructions Recorded Confirmed Type RX: Atorvastatin [Lipitor] 80 mg PO HS 04/08/15 11/18/17 History RX: Calcium Acetate [PhosLo] 667 mg PO TID-W/MEALS 04/08/15 11/18/17 History RX: Insulin Glargine [Lantus] 10 unit SQ HS 04/08/15 11/18/17 History RX: Levothyroxine Sodium 25 mcg PO DAILY 04/08/15 11/18/17 History [Synthroid] RX: Sevelamer [Renvela] 800 mg PO QID 01/20/16 11/18/17 History RX: Amiodarone [Cordarone] 200 mg PO BID 05/20/17 11/18/17 History RX: Tamsulosin [Flomax] 0.8 mg PO PC-SUPPER 05/20/17 11/18/17 History RX: Thiamine [Vitamin B-1] 100 mg PO DAILY 05/20/17 11/18/17 History RX: amLODIPine [Norvasc] 10 mg PO DAILY 05/20/17 11/18/17 History Dilcia Jordan 1,600 mg PO BID 05/20/17 11/18/17 History RX: Ammonium Lactate Lotion 1 applic TOPICAL BID #240 ml 07/20/17 11/18/17 Rx [Lac-Hydrin 12% Lotion] RX: Gabapentin [Neurontin] 300 mg PO TID 08/06/17 11/18/17 History RX: Insulin Aspart [NovoLOG 3 units SQ TID-W/MEALS 08/06/17 11/18/17 History Flexpen] RX: Ondansetron [Zofran] 4 mg PO Q8HR PRN 08/06/17 11/18/17 History RX: traMADol HCL [Ultram] 50 mg PO Q6HR PRN 08/06/17 11/18/17 History RX: levETIRAcetam [Keppra] 750 mg PO BID 10/25/17 11/18/17 History RX: Sodium Bicarbonate Tab 650 mg PO BID #60 tab 11/08/17 11/18/17 Rx RX: acetaZOLAMIDE [Diamox] 125 mg PO BID #60 tab 11/08/17 11/18/17 Rx Allergies Allergy/AdvReac Type Severity Reaction Status Date / Time No Known Allergies Allergy Verified 11/18/17 14:08 Physical Exam Vitals: Vital Signs Temp Pulse Pulse Resp BP Pulse Ox 11/18/17 17:06 98.6 F 84 18 186/104 98 11/18/17 16:41 83 18 183/103 96 11/18/17 16:18 84 18 180/107 95 11/18/17 15:56 87 18 194/113 11/18/17 15:42 88 18 197/113 11/18/17 15:31 100.8 F H 85 18 203/120 95 11/18/17 15:10 89 18 223/117 97 11/18/17 14:30 88 11/18/17 14:20 102.1 F H 90 18 213/118 96 11/18/17 14:15 18 70 L 11/18/17 13:02 100.2 F H 95 18 212/115 88 L Intake and Output 11/18/17 11/18/17 11/18/17 06:59 14:59 22:59 Intake Total 6.35 Balance 6.35 Intake: Intake, IV Titration 6.35 Amount Nitroglycerin-D5w Pmx 50 6.35 mg In Dextrose/Water 1 250ml.bag @ 10 MCG/MIN 3 mls/hr IV .Q24H ONE Rx#: [id number] Other: Weight 95 kg Gen. appearance the patient is a mild degree of respiratory distress, awake and alert and following commands Head exam was generally normal. There was no scleral icterus or corneal arcus. Mucous membranes were moist. Neck was supple and without jugular venous distension, thyromegaly, or carotid bruits. Carotids were easily palpable bilaterally. There was no adenopathy. The patient has a permacath in his right IJ and exit site is clean Lung sounds are diminished bilaterally along with some bibasilar crackles Cardiac exam revealed the PMI to be normally situated and sized. The rhythm was regular and no extrasystoles were noted during several minutes of auscultation. The first and second heart sounds were normal and physiologic splitting of the second heart sound was noted. There were no murmurs, rubs, clicks, or gallops. Abdominal exam revealed normal bowel sounds. The abdomen was soft, non-tender, and without masses, organomegaly, or appreciable enlargement of the abdominal aorta. Extremities reveal a below-knee amputation on the left, chronic ulceration on the right, diminished pulse on the right, no cyanosis or clubbing. The patient also has partial right foot amputation. Neurologically awake and alert and following commands and answering questions appropriately Results - Laboratory Findings CBC and BMP: 11/19/17 05:06 11/19/17 05:06 PT/INR, D-dimer PT 10.4 sec (9.0-12.0) 11/18/17 14:39 INR 1.1 (<1.2) 11/18/17 14:39 Abnormal lab findings: Abnormal Labs 11/18/17 11/18/17 11/18/17 14:39 14:39 14:39 WBC 12.8 H RBC 3.71 L Hgb 9.5 L Hct 30.9 L MCHC 30.7 L RDW 15.8 H Neutrophils # 11.9 H Lymphocytes # 0.4 L Sodium 136 L Chloride 95 L BUN 45 H Creatinine 8.17 H* Glucose 106 H Calcium 8.2 L Phosphorus 6.2 H AST 67 H Alkaline Phosphatase 172 H CK-MB (CK-2) 4.8 H* Albumin 3.1 L - Diagnostic Findings Chest x-ray: image reviewed Assessment and Plan Plan: Assessment 1 acute dyspnea/fluid overload, secondary to missed dialysis in the setting of dialysis-dependent renal failure 2 acute hypertensive emergency, likely secondary to missed dialysis in addition to a background hypertensive disorder. 3 dialysis-dependent renal failure currently on hemodialysis 3 times a week MW and the patient missed his dialysis on Wednesday 4 preserved LV function with a component of hypertensive heart disease based on most his echocardiogram 5 coronary artery disease with previous CT 6 diabetic nephropathy 7 diabetic retinopathy 8 diabetic neuropathy 9 peripheral vascular disease with below-knee amputation on the left and partial dictation of the right foot along with chronic ulceration of the right lower extremity 10 previous MRSA soft tissue infection 11 fever, rule out underlying infection/sepsis, blood culture been sent and the patient was given a dose of Rocephin and vancomycin as an empiric antibiotic coverage 12 hyperlipidemia 13 seizure disorder 14 previous history of a left upper extremity DVT, line related 15 hypothyroidism 16 diabetic gastroparesis 17 chronic anemia 18 compression fracture of the vertebral spine Plan Will proceed with emergent dialysis. We will continue the empiric antibiotic coverage for now pending further cultures. We'll put the patient on nitroglycerin drip at 10 mics and titrate the dose based on his blood pressure response. Resume his oral antihypertensive medication including Norvasc 10 mg by mouth daily and use Catapres should the blood pressure remains elevated. Continue oral bicarb. Continue Synthroid 25 g by mouth daily. Continue Lipitor. Continue Keppra. Lantus insulin 10 units daily at bedtime along with ascites scattered coverage. Pain control with Ultram. We'll continue to follow make further recommendations based on his progress. Wean out FiO2 as tolerated. Repeat chest x-ray in the morning. We'll follow.
[2017-11-19] MEDS: guaiFENesin-Coden 100-10MG/5ML 10 ML CUP PO PRN ×2 (16:54→21:15)
[2017-11-19 17:19] LABS: Glucose,Whole Blood 82 mg/dL (75-99)
[2017-11-19] MEDS: TAMSULOSIN 0.4 MG CAP.ER.24H PO SCH (17:46)
[2017-11-19] MEDS ORDERED: FAMOTIDINE 20 MG/2 ML VIAL IV SCH ×2 (21:00)
[2017-11-19 21:16] LABS: Glucose,Whole Blood 88 mg/dL (75-99)
[2017-11-19] MEDS: INSULIN DETEMIR 100 UNIT/ML 10 ML VIAL SQ SCH (21:18)
[2017-11-19] MEDS: ATORVASTATIN 80 MG TAB PO SCH (21:28)
[2017-11-19] MEDS ORDERED: MINERAL OIL-WHITE PETROLATUM 120 GM JAR TOPICAL PRN (23:28)
[2017-11-19] MEDS ORDERED: GABAPENTIN 300 MG CAP PO SCH (23:30)
[2017-11-20] MEDS: METOCLOPRAMIDE 5 MG/ML 2 ML VIAL IVP PRN (01:50)
[2017-11-20] MEDS: guaiFENesin-Coden 100-10MG/5ML 10 ML CUP PO PRN ×3 (02:28→16:42)
[2017-11-20] MEDS: CLEVIDIPINE BUTYRATE 25 MG in EMPTY BAG 1 BAG IV SCH ×4 (03:22→19:11)
[2017-11-20 04:49] LABS: Anisocytosis Slight; Basophils % (A) 1 %; Eosinophils % (A) 1 %; HCT 29.6 % (39.0-53.0); HGB 8.9 gm/dL (13.0-17.5); Hypochromasia Marked; Lymphocytes # (A) 0.4 k/uL (1.0-4.8); Lymphocytes % (A) 9 %; MCH 25.7 pg (25.0-35.0); MCHC 30.1 g/dL (31.0-37.0); MCV 85.6 fL (80.0-100.0); Mean Platelet Volume 7.3; Monocytes # (A) 0.3 k/uL (0-1.0); Monocytes % (A) 5 %; Neutrophils # (A) 4.3 k/uL (1.3-7.7); Neutrophils % (A) 83 %; Platelet Count 268 k/uL (150-450); RBC 3.46 m/uL (4.30-5.90); RDW 16.2 % (11.5-15.5); WBC 5.1 k/uL (3.8-10.6)
[2017-11-20 05:00] LABS: Albumin 2.6 g/dL (3.5-5.0); Calcium 7.7 mg/dL (8.4-10.2); Magnesium 1.9 mg/dL (1.6-2.3); Potassium 4.1 mmol/L (3.5-5.1); Total Bilirubin 0.5 mg/dL (0.2-1.3); Total Protein 6.1 g/dL (6.3-8.2)
[2017-11-20] MEDS: LEVOTHYROXINE 25 MCG TAB PO SCH (06:27)
--- NOTE | 2017-11-20 06:54 | XR ---
EXAMINATION TYPE: XR chest 1V portable DATE OF EXAM: 11/20/2017 HISTORY: Short of breath. REFERENCE: Previous study dated 11/19/2017. FINDINGS: There is a large-bore, double-lumen catheter in place via a right internal jugular approach . Its tip is in the right atrium. The heart is enlarged. There is vascular congestion and subtle interstitial change. Pleural spaces ap pear clear. IMPRESSION: FINDINGS CONSISTENT WITH MILD CONGESTIVE HEART FAILURE.
[2017-11-20] MEDS: IPRATROPIUM-ALBUTEROL 3 ML NEB INHALATION SCH ×4 (07:30→19:16)
[2017-11-20] MEDS: traMADol 50 MG TAB PO PRN ×2 (09:11→16:42)
[2017-11-20] MEDS: CALCIUM ACETATE 667 MG CAP PO SCH ×3 (09:13→16:40)
[2017-11-20] MEDS: ONDANSETRON 4 MG/2 ML VIAL IVP PRN ×2 (09:18→18:50)
[2017-11-20] MEDS: acetaZOLAMIDE 250 MG TAB PO SCH (09:22)
[2017-11-20] MEDS: AMIODARONE 200 MG TAB PO SCH (09:22)
[2017-11-20] MEDS: GABAPENTIN 300 MG CAP PO SCH (09:24)
[2017-11-20] MEDS: SEVELAMER 800 MG TAB PO SCH ×4 (09:25→21:52)
[2017-11-20] MEDS: SODIUM BICARBONATE TAB 650 MG TAB PO SCH (09:25)
[2017-11-20] MEDS: THIAMINE 100 MG TAB PO SCH (09:26)
[2017-11-20 09:44] LABS: Glucose,Whole Blood 91 mg/dL (75-99)
[2017-11-20] MEDS: amLODIPine 10 MG TAB PO SCH (09:49)
[2017-11-20] MEDS ORDERED: LEVOFLOXACIN 250 MG TAB PO SCH (10:00)
[2017-11-20] MEDS: CARVEDILOL 12.5 MG TAB PO SCH ×2 (10:23→16:40)
[2017-11-20] MEDS: LOSARTAN 50 MG TAB PO SCH ×2 (10:23→21:54)
--- NOTE | 2017-11-20 11:13 | P.PN ---
Subjective Patient is seen in follow-up for end-stage renal disease. He is maintained on hemodialysis on a Wednesday schedule. He has a permacath for his axis. Patient presented with fluid overload. He underwent hemodialysis and Wednesday with total 7 L ultrafiltration. He is currently resting in bed. He is still requiring cleviprex. Blood pressure is in the systolic 120s. Nausea and vomiting have improved. Denies chest pain or shortness of breath. Vital signs are stable. General: The patient appeared well nourished and normally developed. HEENT: Head exam is unremarkable. Neck is without jugular venous distension. LUNGS: Lungs are clear to auscultation and percussion. Breath sounds decreased. HEART: Rate and Rhythm are regular. First and second heart sounds normal. No murmurs, rubs or gallops. ABDOMEN: Abdominal exam reveals normal bowel sounds. Non-tender and non- distended. No evidence of peritonitis. EXTREMITITES: No clubbing, cyanosis, or edema. Left BKA noted. Objective - Vital Signs Vital signs: Vital Signs Temp 99.7 F H 11/20/17 08:00 Pulse 97 11/20/17 11:00 Resp 22 11/20/17 11:00 BP 122/71 11/20/17 11:00 Pulse Ox 92 L 11/20/17 11:00 Intake & Output 11/19/17 11/20/17 11/20/17 18:59 06:59 18:59 Intake Total 857.166 442.767 250 Output Total 3020 12 Balance -2162.834 430.767 250 Weight 88.9 kg Intake: IV 310 120 50 0.9 NaCl- for a carrier 110 120 50 Magnesium Sulfate-D5w Pmx 200 1 gm In Dextrose/Water 1 100ml.bag @ 100 mls/hr IVPB Q1H TRAE Rx#: [id number] Intake, IV Titration 47.166 112.767 Amount Clevidipine Butyrate 25 47.166 112.767 mg In Empty Bag 1 bag @ 1 MG/HR 2 mls/hr IV .Q24H TRAE Rx#:[id number] Oral 500 210 200 Output: Urine 20 10 Stool 2 Other 3000 Other: Voiding Method Urinal Urinal Urinal # Bowel Movements 1 1 - Labs CBC & Chem 7: 11/20/17 04:33 11/20/17 04:33 Labs: Abnormal Lab Results - Last 24 Hours (Table) 11/19/17 11/20/17 11/20/17 Range/Units 05:06 04:33 04:33 RBC 3.46 L (4.30-5.90) m/uL Hgb 8.9 L (13.0-17.5) gm/dL Hct 29.6 L (39.0-53.0) % MCHC 30.1 L (31.0-37.0) g/dL RDW 16.2 H (11.5-15.5) % Lymphocytes # 0.4 L (1.0-4.8) k/uL Creatinine 4.24 H (0.66-1.25) mg/dL Hemoglobin A1c 6.3 H (4.0-6.0) % Calcium 7.7 L (8.4-10.2) mg/dL AST 92 H (17-59) U/L ALT 79 H (21-72) U/L Alkaline Phosphatase 143 H (38-126) U/L Total Protein 6.1 L (6.3-8.2) g/dL Albumin 2.6 L (3.5-5.0) g/dL Microbiology - Last 24 Hours (Table) 11/18/17 14:39 Blood Culture - Preliminary Blood No Growth after 24 hours Assessment and Plan Plan: Assessment: 1. End-stage renal disease maintained on hemodialysis on a Wednesday schedule for a permacath. 2. Volume overload. Improved with ultrafiltration. 3. Anemia of chronic kidney disease maintained on Aranesp. Rule out iron deficiency. 4. Chronic kidney disease mineral bone disease maintained on PhosLo and Renvela with meals. 5. Hypertension with chronic kidney disease. Still requiring Cleviprex. 6. Nausea and vomiting likely related to underlying diabetic gastroparesis. Improved. 7. Peripheral vascular disease status post left below-knee amputation. 8. Insulin-dependent diabetes mellitus. Plan: Next hemodialysis on Wednesday. Check iron studies. Cozaar was added today. Wean Cleviprex. Maintain antiemetics.
[2017-11-20 11:26] LABS: Glucose,Whole Blood 85 mg/dL (75-99)
[2017-11-20 12:20] LABS: Glucose,Whole Blood 93 mg/dL (75-99)
--- NOTE | 2017-11-20 13:28 | P.PN ---
Subjective Progress Note Date: 11/20/17 This is a 46-year-old male patient was hospitalized today and was brought into the intensive care unit because of missing dialysis, fluid overload, hypertension, generalized weakness and shortness of breath. He apparently missed dialysis on Wednesday secondary to fatigue and generalized weakness. He had a mild cough and no chest pain. According to the home health care, the patient's blood pressure was significantly elevated and the pulse ox was also low. He had some emesis and diarrhea over the past 48 hours. No chest pain. No fever or chills. Chest x-ray was done in the emergency department and the patient had some cardiomegaly and pulmonary vessel congestion. Right hemidiaphragm is elevated and the patient has a temporary dialysis catheter in the right IJ. The patient had a temperature 100.8 in the emergency department. Initial blood pressure was 203 of 120 with a pulse ox of 95% on 5 L of oxygen by nasal cannula. Based on this, the patient was started on nitroglycerin drip. The patient will be having a stat dialysis and nephrology has been informed of these. Blood cultures were sent and the patient was started also on broad-spectrum antibiotics and the patient was given a dose of vancomycin in the emergency department in addition to a dose of IV Rocephin. This patient has multiple medical problems and comorbidities. He has diabetes mellitus type 2 with multiple complications related to diabetes including end- stage renal disease. He was initially started on peritoneal dialysis to which she subsequently failed and he was recently switched to hemodialysis. He has also history of hypertension, hyperlipidemia, acid reflux, coronary artery disease with previous [place], hypothyroidism and seizure disorder. He has had multiple hospitalizations in the past. His peritoneal dialysis has been removed and the patient is currently being dialyzed to a temporary dialysis catheter. He has had previous below knee amputation for severe peripheral vascular disease. He has a previous history of MRSA in the past. He has had cataracts and previous eye surgery/and laser eye surgery for diabetic retinopathy. He has also previous history of DVT. He has seen also Dr. Sy regarding chronic lower extremities ulceration. Other medical problems are previous history of TIA, diabetic gastroparesis, peripheral neuropathy, chronic anemia and previous history of compression fracture of the vertebral spine. His DVT was related to a previous IV line in the upper extremity on the left. On subsequent evaluation of 11/19/2018 the patient is being seen in the intensive care unit. The patient is looking well. Less short of breath compared to yesterday. He underwent hemodialysis yesterday and total of 3.5 L of fluid was removed. A repeat hemodialysis will be done today. The patient meanwhile is less short of breath. The patient is still on Cleviprex drip at 2 mg per hour for blood pressure control. Note that the patient typically runs a lower blood pressure. He has been maintained on Norvasc on outpatient basis which was also resumed. Also, the patient has not developed any fever over the past 12 hours. Cultures are still negative. The wound in the left lower oximetry was inspected and ID was consulted. The exit site of the dialysis catheter is also clean and intact. The chest x-ray showing increased left basilar atelectasis/infiltrates in addition to some mild four-vessel congestion. Minimal cough. No pleurisy. No hemoptysis. No other complaints otherwise. Lantus insulin has been placed on hold as the patient's oral intake is diminished. He is having some nausea. He was having loose diuretic bowel movements and none has witnessed in the ICU since yesterday. On 11/20/2017, patient is undergone a second session of dialysis. He is resting comfortably in bed. He has a congested cough. No stiffness sputum production. He is still on up having fevers. He spiked another temperature spike yesterday and the exact source is not clear the cultures of the blood has been negative. He underwent 2 sessions of hemodialysis. Chest x-ray from today showing pulmonary vessel congestion. The patient has no leukocytosis. He is hypertensive still on Cleviprex drip at the rate of 6 mg an hour. Blood pressure is still elevated. The patient is also on Norvasc 10 mg by mouth daily. The right lower extremity foot wound was inspected and the wound is closed and healed and this is not the source of infection at this point in time. As such the source of infection is not clear. The patient had some loose watery bowel movement and the C. diff evaluation came back negative. ID will be consulted. Objective - Vital Signs Vital signs: Vital Signs Temp 99.2 F 11/20/17 12:00 Pulse 87 11/20/17 13:00 Resp 10 L 11/20/17 13:00 BP 140/81 11/20/17 13:00 Pulse Ox 90 L 11/20/17 13:00 Intake & Output 11/19/17 11/20/17 11/20/17 18:59 06:59 18:59 Intake Total 857.166 442.767 381.2 Output Total 3020 12 1 Balance -2162.834 430.767 380.2 Weight 88.9 kg 88.9 kg Intake: IV 310 120 70 0.9 NaCl- for a carrier 110 120 70 Magnesium Sulfate-D5w Pmx 200 1 gm In Dextrose/Water 1 100ml.bag @ 100 mls/hr IVPB Q1H TRAE Rx#: [id number] Intake, IV Titration 47.166 112.767 61.2 Amount Clevidipine Butyrate 25 47.166 112.767 61.2 mg In Empty Bag 1 bag @ 1 MG/HR 2 mls/hr IV .Q24H TRAE Rx#:[id number] Oral 500 210 250 Output: Urine 20 10 Stool 2 1 Other 3000 Other: Voiding Method Urinal Urinal Urinal # Bowel Movements 1 1 - Exam Gen. appearance the patient is a mild degree of respiratory distress, awake and alert and following commands Head exam was generally normal. There was no scleral icterus or corneal arcus. Mucous membranes were moist. Neck was supple and without jugular venous distension, thyromegaly, or carotid bruits. Carotids were easily palpable bilaterally. There was no adenopathy. The patient has a permacath in his right IJ and exit site is clean Lung sounds are diminished bilaterally along with some bibasilar crackles Cardiac exam revealed the PMI to be normally situated and sized. The rhythm was regular and no extrasystoles were noted during several minutes of auscultation. The first and second heart sounds were normal and physiologic splitting of the second heart sound was noted. There were no murmurs, rubs, clicks, or gallops. Abdominal exam revealed normal bowel sounds. The abdomen was soft, non-tender, and without masses, organomegaly, or appreciable enlargement of the abdominal aorta. Extremities reveal a below-knee amputation on the left, chronic ulceration on the right, diminished pulse on the right, no cyanosis or clubbing. The patient also has partial right foot amputation. Neurologically awake and alert and following commands and answering questions appropriately - Labs CBC & Chem 7: 11/20/17 04:33 11/20/17 04:33 Labs: Abnormal Lab Results - Last 24 Hours (Table) 11/19/17 11/20/17 11/20/17 Range/Units 05:06 04:33 04:33 RBC 3.46 L (4.30-5.90) m/uL Hgb 8.9 L (13.0-17.5) gm/dL Hct 29.6 L (39.0-53.0) % MCHC 30.1 L (31.0-37.0) g/dL RDW 16.2 H (11.5-15.5) % Lymphocytes # 0.4 L (1.0-4.8) k/uL Creatinine 4.24 H (0.66-1.25) mg/dL Hemoglobin A1c 6.3 H (4.0-6.0) % Calcium 7.7 L (8.4-10.2) mg/dL AST 92 H (17-59) U/L ALT 79 H (21-72) U/L Alkaline Phosphatase 143 H (38-126) U/L Total Protein 6.1 L (6.3-8.2) g/dL Albumin 2.6 L (3.5-5.0) g/dL Microbiology - Last 24 Hours (Table) 11/18/17 14:39 Blood Culture - Preliminary Blood No Growth after 24 hours Assessment and Plan Plan: Assessment 1 acute dyspnea/fluid overload, secondary to missed dialysis in the setting of dialysis-dependent renal failure. The patient underwent 2 sessions of hemodialysis. Chest x-ray from today showing pulmonary vessel congestion. Underlying pneumonia is doubtful although cannot be completely ruled out. 2 acute hypertensive emergency, likely secondary to missed dialysis in addition to a background hypertensive disorder. The patient remains hypertensive despite dialysis. The patient is currently on Cleviprex drip. We will add antihypertensive medications for blood pressure control. 3 dialysis-dependent renal failure currently on hemodialysis 3 times a week MW and the patient missed his dialysis on Wednesday 4 preserved LV function with a component of hypertensive heart disease based on most his echocardiogram 5 coronary artery disease with previous [place] 6 acute febrile episodes currently under investigation 7 diabetic retinopathy 8 diabetic neuropathy 9 peripheral vascular disease with below-knee amputation on the left and partial dictation of the right foot along with chronic ulceration of the right lower extremity 10 previous MRSA soft tissue infection 11 fever, rule out underlying infection/sepsis, blood culture been sent and the patient was given a dose of Rocephin and vancomycin as an empiric antibiotic coverage 12 hyperlipidemia 13 seizure disorder 14 previous history of a left upper extremity DVT, line related 15 hypothyroidism 16 diabetic gastroparesis 17 chronic anemia 18 compression fracture of the vertebral spine Plan Stop the Rocephin and switch the patient to Levaquin to give a beta pulmonary coverage for any potential pneumonia/bronchitis. Add Coreg 12.5 mg twice a day. Add losartan 50 mg by mouth twice a day. Continue Norvasc 10 mg by mouth daily. Wean off Cleviprex drip to maintain a systolic blood pressure of less than 160. We'll continue to follow. Nephrology is on the case regarding his dialysis sessions. Consult ID.
[2017-11-20] MEDS ORDERED: IOPAMIDOL-300 CONTRAST 30 ML VIAL (ORAL USE) PO PRN (13:29)
[2017-11-20] MEDS: cloNIDine HCL 0.1 MG TAB PO SCH (16:40)
[2017-11-20 17:05] LABS: Glucose,Whole Blood 81 mg/dL (75-99)
[2017-11-20 17:09] LABS: Iron Saturation 12.05 (15.00-50.00)
[2017-11-20] MEDS: TAMSULOSIN 0.4 MG CAP.ER.24H PO SCH (18:51)
[2017-11-20 20:41] LABS: Glucose,Whole Blood 97 mg/dL (75-99)
[2017-11-20] MEDS: INSULIN DETEMIR 100 UNIT/ML 10 ML VIAL SQ SCH (21:51)
[2017-11-20] MEDS: FAMOTIDINE 20 MG TAB PO SCH (21:54)
[2017-11-21] MEDS: PIPERACILLIN-TAZOBACTAM 3.375 GM in DEXTROSE/WATER 1 50ML.BAG IVPB SCH ×2 (00:02→14:33)
[2017-11-21] MEDS: SODIUM BICARBONATE TAB 650 MG TAB PO SCH ×3 (00:03→22:08)
[2017-11-21] MEDS: ATORVASTATIN 80 MG TAB PO SCH ×2 (00:03→22:08)
[2017-11-21] MEDS: GABAPENTIN 300 MG CAP PO SCH ×3 (00:03→22:08)
[2017-11-21] MEDS: acetaZOLAMIDE 250 MG TAB PO SCH ×3 (00:03→22:08)
[2017-11-21] MEDS: AMIODARONE 200 MG TAB PO SCH ×3 (00:04→22:08)
[2017-11-21] MEDS: cloNIDine HCL 0.1 MG TAB PO SCH ×4 (00:04→22:09)
[2017-11-21] MEDS: guaiFENesin-Coden 100-10MG/5ML 10 ML CUP PO PRN ×2 (00:06→22:35)
[2017-11-21 04:48] LABS: Anisocytosis Slight; Basophils % (A) 1 %; Eosinophils # (A) 0.1 k/uL (0-0.7); Eosinophils % (A) 2 %; HCT 29.3 % (39.0-53.0); HGB 8.7 gm/dL (13.0-17.5); Hypochromasia Marked; Lymphocytes # (A) 0.7 k/uL (1.0-4.8); Lymphocytes % (A) 15 %; MCH 25.6 pg (25.0-35.0); MCHC 29.8 g/dL (31.0-37.0); MCV 86.1 fL (80.0-100.0); Monocytes # (A) 0.3 k/uL (0-1.0); Monocytes % (A) 6 %; Neutrophils # (A) 3.3 k/uL (1.3-7.7); Neutrophils % (A) 74 %; Platelet Count 287 k/uL (150-450); Poikilocytosis Slight; RDW 16.2 % (11.5-15.5); WBC 4.5 k/uL (3.8-10.6)
--- NOTE | 2017-11-21 04:49 | CONS ---
CONSULTATION DATE OF SERVICE: 11/20/2017. REASON FOR CONSULTATION: Fever. HISTORY OF PRESENT ILLNESS: The patient is a 46-year-old male, past medical history significant for end- stage renal disease for which the patient is currently on dialysis through the right IJ Perma catheter. The patient has dialysis Wednesday, Wednesday, Wednesday. The patient presenting to the ER on 11/18/2017 with chief complaint of generalized weakness and nausea and vomiting. The patient did miss his dialysis on Wednesday because of weakness and nausea and vomiting. The patient had been complaining of crampy abdominal pain with intensity about 4 to 6/10, and no radiation. The patient on arrival to the ER did have a fever of 100.2-102.1 degrees Fahrenheit with another fever yesterday evening of 101.6 degrees Fahrenheit. The patient did have a chest x-ray that was reported to be fluid overload and no evidence of any pneumonia. The patient did have elevated white count 12.8 on admission. The patient did have blood cultures obtained which are currently pending. Did receive Rocephin in the ER and has been on vancomycin. Because of his persistent fever, Infectious Disease was consulted for further recommendation regarding antibiotic therapy. The patient's main symptoms remains to be nausea, vomiting, abdominal pain, pain described to more in the epigastric area with intensity of about 6/10, and no radiation. The patient also had some loose stool for which a stool for C diff cultures came back negative. The patient did have a diabetic foot ulcer on the right foot plantar aspect, which is currently almost healed with a bruise there and no drainage. The patient did have a left [id number] amputation. However, the stump looks clean. REVIEW OF SYSTEMS: CONSTITUTIONAL: Positive for weakness along with the fever. EYES: No complaint. ENT: No complaint. RESPIRATORY: As per HPI. CARDIOVASCULAR: No complaint. GENITOURINARY: No complaint. GASTROINTESTINAL: As per HPI. MUSCULOSKELETAL: As per HPI. INTEGUMENTARY: No complaint. PSYCHOLOGICAL: No complaint. ENDOCRINE: No complaint. NEUROLOGICAL: No complaint. PAST MEDICAL HISTORY: Significant for insulin-dependent diabetes mellitus, end-stage renal disease, coronary artery disease, DVT, gastroesophageal reflux disease, hypertension, hyperlipidemia, CO, seizure disorder, left diabetic foot infection with MRSA. PAST SURGICAL HISTORY: Left BKA and bilateral cataract surgery, vitrectomy, and right foot toes amputation. SOCIAL HISTORY: No history of smoking, drinking or drug use. FAMILY HISTORY: Mother with history of lung cancer. ALLERGIES: LISINOPRIL AND SULFA. MEDICATION: Medications include the patient is currently on Tylenol, Diamox, DuoNeb amiodarone, Norvasc, Lipitor, PhosLo, Coreg, Catapres, Pepcid, Neurontin, Robitussin AC, Levemir, Keppra, Levaquin, Synthroid, vancomycin pharmacy to dose, Zofran. EXAMINATION: Blood pressure is 151/82 with a pulse of 73, temperature of 98.7. He is 90% on 5 L nasal cannula. General description is a middle-aged male lying in bed in no distress. No tachypnea or accessory muscle of respiration use. HEENT shows slight pallor. No scleral icterus. Oral mucosa membrane is moist. No pharyngeal erythema or thrush. NECK: Trachea central. No thyromegaly. LUNGS: Unlabored breathing, decreased breath sounds at the bases. No wheeze. HEART: S1, S2. Regular rate and rhythm. ABDOMEN: Distended and guarding. No rigidity. No organomegaly. EXTREMITIES: No edema feet. Left BK stump is clean. Right foot plantar aspect wound seems to be healed, slight bruise there. NEUROLOGICAL: Patient is awake, alert, oriented x2. Mood and affect normal. LABS: Hemoglobin 8.8, white count 5.1 with admission white count was 12.8 with a BUN of 15, creatinine 4.24. Liver enzymes slightly elevated. Hepatitis serology is negative. Stool C-diff is negative. Influenza serology is negative. Chest x-ray mostly with CHF pattern. DIAGNOSTIC IMPRESSION/PLAN: 1. Patient with fever in a patient admitted to the hospital with nausea and vomiting. Has been complaining of abdominal pain. Source is most likely abdominal as no other clinical focus of infection. The patient chest x-ray has been mostly congestive heart failure. Blood cultures have been negative. Need to rule out the PermCath infection and his right diabetic foot wound is currently healed with no evidence of any cellulitis or any underlying abscess. 2. Patient does have a SULFA ALLERGY. PLAN: 1. The patient to continue vancomycin, discontinue Levaquin, add Zosyn to cover for the enteric gram-negative pathogen. 2. We will obtain a CT abdominal pelvis with oral contrast to find underlying abdominal pathology. 3. No need for any specific dressing to the right foot wound, which is currently healed, however needs to be protected and keep the area off the pressure. 4. We will follow up on the clinical condition and culture to further adjust medication if needed. Thank you for this consultation. Will follow this patient along with you. AMA / GISELA: [id number] /
[2017-11-21 04:58] LABS: Albumin 2.7 g/dL (3.5-5.0); Magnesium 1.9 mg/dL (1.6-2.3); Phosphorus 4.9 mg/dL (2.5-4.5); Potassium 4.2 mmol/L (3.5-5.1); Total Bilirubin 0.5 mg/dL (0.2-1.3); Total Protein 6.3 g/dL (6.3-8.2)
--- NOTE | 2017-11-21 06:41 | XR ---
EXAMINATION TYPE: XR chest 1V portable DATE OF EXAM: 11/21/2017 HISTORY: Short of breath. REFERENCE: Previous study dated 11/20/2017. FINDINGS: There is a large-bore, double-lumen catheter in place via a right internal jugular approach . Its tip is in the right atrium. The heart is enlarged. There is vascular congestion and mild interstitial change. Pleural spaces are clear. The overall appearance has worsened somewhat. IMPRESSION: WORSENING CHANGES OF CONGESTIVE HEART FAILURE.
[2017-11-21 07:15] LABS: Glucose,Whole Blood 80 mg/dL (75-99)
[2017-11-21] MEDS: IPRATROPIUM-ALBUTEROL 3 ML NEB INHALATION SCH ×4 (07:29→20:09)
[2017-11-21] MEDS ORDERED: VANCOMYCIN 1,500 MG in SODIUM CHLORIDE 0.9% 250 ML IVPB ONE (09:00)
--- NOTE | 2017-11-21 10:24 | P.PN ---
Subjective Patient is seen in follow-up for end-stage renal disease. He is maintained on hemodialysis on a Wednesday schedule. He has a permacath for his access. Patient presented with fluid overload. He underwent hemodialysis and Wednesday with total 7 L ultrafiltration. He is currently resting in bed. Blood pressure is better controlled. Patient became acutely dyspneic this morning and worsening changes of congestive heart failure were noted on chest x-ray. Dialysis was arranged and he was currently seen what undergoing hemodialysis. He is feeling better. Vital signs are stable. General: The patient appeared well nourished and normally developed. HEENT: Head exam is unremarkable. Neck is without jugular venous distension. LUNGS: Lungs are clear to auscultation and percussion. Breath sounds decreased. HEART: Rate and Rhythm are regular. First and second heart sounds normal. No murmurs, rubs or gallops. ABDOMEN: Abdominal exam reveals normal bowel sounds. Non-tender and non- distended. No evidence of peritonitis. EXTREMITITES: No clubbing, cyanosis, or edema. Left BKA noted. Objective - Vital Signs Vital signs: Vital Signs Temp 97.7 F 11/21/17 08:00 Pulse 72 11/21/17 10:00 Resp 25 H 11/21/17 10:00 BP 134/91 11/21/17 10:00 Pulse Ox 96 11/21/17 10:00 Intake & Output 11/20/17 11/21/17 11/21/17 18:59 06:59 18:59 Intake Total 781.2 261.467 40 Output Total 3 2 Balance 778.2 259.467 40 Weight 88.9 kg 88.6 kg Intake: IV 120 130.0 40 0.9 NaCl- for a carrier 120 80 40 Piperacillin-Tazobactam 3 50.0 .375 gm In Dextrose/Water 1 50ml.bag @ 12.5 mls/hr IVPB Q12H TRAE Rx#: [id number] Intake, IV Titration 61.2 21.467 Amount Clevidipine Butyrate 25 61.2 21.467 mg In Empty Bag 1 bag @ 1 MG/HR 2 mls/hr IV .Q24H TRAE Rx#:[id number] Oral 600 110 Output: Stool 3 2 Other: Voiding Method Urinal Urinal Urinal # Bowel Movements 1 1 - Labs CBC & Chem 7: 11/21/17 04:30 11/21/17 04:30 Labs: Abnormal Lab Results - Last 24 Hours (Table) 11/20/17 11/21/17 11/21/17 Range/Units 04:33 04:30 04:30 RBC 3.40 L (4.30-5.90) m/uL Hgb 8.7 L (13.0-17.5) gm/dL Hct 29.3 L (39.0-53.0) % MCHC 29.8 L (31.0-37.0) g/dL RDW 16.2 H (11.5-15.5) % Lymphocytes # 0.7 L (1.0-4.8) k/uL Chloride 97 L (98-107) mmol/L Creatinine 5.80 H* (0.66-1.25) mg/dL Calcium 8.0 L (8.4-10.2) mg/dL Phosphorus 4.9 H (2.5-4.5) mg/dL Iron 20 L (65-175) ug/dL TIBC 166 L (228-460) ug/dL Iron Saturation 12.05 L (15.00-50.00) Ferritin 6790.0 H (22.0-322.0) ng/mL Alkaline Phosphatase 150 H (38-126) U/L Albumin 2.7 L (3.5-5.0) g/dL Microbiology - Last 24 Hours (Table) 11/18/17 14:39 Blood Culture - Preliminary Blood No Growth after 48 hours Assessment and Plan Plan: Assessment: 1. End-stage renal disease maintained on hemodialysis on a Wednesday schedule for a permacath. 2. Volume overload. Currently undergoing hemodialysis. 3. Anemia of chronic kidney disease maintained on Aranesp. 4. Chronic kidney disease mineral bone disease maintained on PhosLo and Renvela with meals. 5. Hypertension with chronic kidney disease. Better controlled. 6. Nausea and vomiting likely related to underlying diabetic gastroparesis. Improved. 7. Peripheral vascular disease status post left below-knee amputation. 8. Insulin-dependent diabetes mellitus. 9. Fever. Concern for abdominal source. Permacath site appears clean with no obvious drainage or erythema. Plan: Currently undergoing hemodialysis. Next treatment tomorrow. Maintain antiemetics. Check culture from permacath.
[2017-11-21] MEDS: CALCIUM ACETATE 667 MG CAP PO SCH ×3 (11:15→17:06)
[2017-11-21] MEDS: SEVELAMER 800 MG TAB PO SCH ×4 (11:16→22:09)
[2017-11-21 12:19] LABS: Glucose,Whole Blood 98 mg/dL (75-99)
[2017-11-21] MEDS: THIAMINE 100 MG TAB PO SCH (12:24)
[2017-11-21] MEDS: CARVEDILOL 12.5 MG TAB PO SCH ×2 (12:24→17:06)
[2017-11-21] MEDS: amLODIPine 10 MG TAB PO SCH (12:28)
[2017-11-21] MEDS: levETIRAcetam 500 MG TAB PO SCH ×2 (12:28→22:08)
[2017-11-21] MEDS: LEVOTHYROXINE 25 MCG TAB PO SCH (12:28)
--- NOTE | 2017-11-21 12:48 | P.PN ---
Subjective Progress Note Date: 11/21/17 This is a 46-year-old male patient was hospitalized today and was brought into the intensive care unit because of missing dialysis, fluid overload, hypertension, generalized weakness and shortness of breath. He apparently missed dialysis on Wednesday secondary to fatigue and generalized weakness. He had a mild cough and no chest pain. According to the home health care, the patient's blood pressure was significantly elevated and the pulse ox was also low. He had some emesis and diarrhea over the past 48 hours. No chest pain. No fever or chills. Chest x-ray was done in the emergency department and the patient had some cardiomegaly and pulmonary vessel congestion. Right hemidiaphragm is elevated and the patient has a temporary dialysis catheter in the right IJ. The patient had a temperature 100.8 in the emergency department. Initial blood pressure was 203 of 120 with a pulse ox of 95% on 5 L of oxygen by nasal cannula. Based on this, the patient was started on nitroglycerin drip. The patient will be having a stat dialysis and nephrology has been informed of these. Blood cultures were sent and the patient was started also on broad-spectrum antibiotics and the patient was given a dose of vancomycin in the emergency department in addition to a dose of IV Rocephin. This patient has multiple medical problems and comorbidities. He has diabetes mellitus type 2 with multiple complications related to diabetes including end- stage renal disease. He was initially started on peritoneal dialysis to which she subsequently failed and he was recently switched to hemodialysis. He has also history of hypertension, hyperlipidemia, acid reflux, coronary artery disease with previous [place], hypothyroidism and seizure disorder. He has had multiple hospitalizations in the past. His peritoneal dialysis has been removed and the patient is currently being dialyzed to a temporary dialysis catheter. He has had previous below knee amputation for severe peripheral vascular disease. He has a previous history of MRSA in the past. He has had cataracts and previous eye surgery/and laser eye surgery for diabetic retinopathy. He has also previous history of DVT. He has seen also Dr. Sy regarding chronic lower extremities ulceration. Other medical problems are previous history of TIA, diabetic gastroparesis, peripheral neuropathy, chronic anemia and previous history of compression fracture of the vertebral spine. His DVT was related to a previous IV line in the upper extremity on the left. On subsequent evaluation of 11/19/2018 the patient is being seen in the intensive care unit. The patient is looking well. Less short of breath compared to yesterday. He underwent hemodialysis yesterday and total of 3.5 L of fluid was removed. A repeat hemodialysis will be done today. The patient meanwhile is less short of breath. The patient is still on Cleviprex drip at 2 mg per hour for blood pressure control. Note that the patient typically runs a lower blood pressure. He has been maintained on Norvasc on outpatient basis which was also resumed. Also, the patient has not developed any fever over the past 12 hours. Cultures are still negative. The wound in the left lower oximetry was inspected and ID was consulted. The exit site of the dialysis catheter is also clean and intact. The chest x-ray showing increased left basilar atelectasis/infiltrates in addition to some mild four-vessel congestion. Minimal cough. No pleurisy. No hemoptysis. No other complaints otherwise. Lantus insulin has been placed on hold as the patient's oral intake is diminished. He is having some nausea. He was having loose diuretic bowel movements and none has witnessed in the ICU since yesterday. On 11/20/2017, patient is undergone a second session of dialysis. He is resting comfortably in bed. He has a congested cough. No stiffness sputum production. He is still on up having fevers. He spiked another temperature spike yesterday and the exact source is not clear the cultures of the blood has been negative. He underwent 2 sessions of hemodialysis. Chest x-ray from today showing pulmonary vessel congestion. The patient has no leukocytosis. He is hypertensive still on Cleviprex drip at the rate of 6 mg an hour. Blood pressure is still elevated. The patient is also on Norvasc 10 mg by mouth daily. The right lower extremity foot wound was inspected and the wound is closed and healed and this is not the source of infection at this point in time. As such the source of infection is not clear. The patient had some loose watery bowel movement and the C. diff evaluation came back negative. ID will be consulted. On 11/21/2017, the patient will be given another session of dialysis. He is having some difficulty breathing and cough and congestion and increased dyspnea. His blood pressure is under better control and the patient is currently off Cleviprex drip. His blood pressure control is better with a combination of Coreg, Catapres, Cozaar and Norvasc. No headache. No altered mentation. No diarrhea. He did have another bout of fever yesterday which makes you wonder whether the patient has underlying lung infection. ID is on the case and the patient was placed on a combination of Zosyn and vancomycin. Cultures of been negative thus far. Stool is negative for C. diff. ID is on the case. Nephrology is also on the case and we have made a request to do another session of hemodialysis today. He is arousable and he is awake. He follows simple commands. He has diminished appetite. He is eating minimally at this point in time. No focal neurological deficit. No leukocytosis. No significant electrode disturbance and the potassium level is at 4.2. Objective - Vital Signs Vital signs: Vital Signs Temp 97.6 F 11/21/17 12:00 Pulse 82 11/21/17 12:30 Resp 23 11/21/17 12:30 BP 156/95 11/21/17 12:30 Pulse Ox 94 L 11/21/17 12:30 Intake & Output 11/20/17 11/21/17 11/21/17 18:59 06:59 18:59 Intake Total 781.2 261.467 60 Output Total 3 2 Balance 778.2 259.467 60 Weight 88.9 kg 88.6 kg Intake: IV 120 130.0 60 0.9 NaCl- for a carrier 120 80 60 Piperacillin-Tazobactam 3 50.0 .375 gm In Dextrose/Water 1 50ml.bag @ 12.5 mls/hr IVPB Q12H TRAE Rx#: [id number] Intake, IV Titration 61.2 21.467 Amount Clevidipine Butyrate 25 61.2 21.467 mg In Empty Bag 1 bag @ 1 MG/HR 2 mls/hr IV .Q24H TRAE Rx#:[id number] Oral 600 110 Output: Stool 3 2 Other: Voiding Method Urinal Urinal Urinal # Bowel Movements 1 1 - Exam Gen. appearance the patient is a mild degree of respiratory distress, awake and alert and following commands Head exam was generally normal. There was no scleral icterus or corneal arcus. Mucous membranes were moist. Neck was supple and without jugular venous distension, thyromegaly, or carotid bruits. Carotids were easily palpable bilaterally. There was no adenopathy. The patient has a permacath in his right IJ and exit site is clean Lung sounds are diminished bilaterally along with some bibasilar crackles Cardiac exam revealed the PMI to be normally situated and sized. The rhythm was regular and no extrasystoles were noted during several minutes of auscultation. The first and second heart sounds were normal and physiologic splitting of the second heart sound was noted. There were no murmurs, rubs, clicks, or gallops. Abdominal exam revealed normal bowel sounds. The abdomen was soft, non-tender, and without masses, organomegaly, or appreciable enlargement of the abdominal aorta. Extremities reveal a below-knee amputation on the left, chronic ulceration on the right, diminished pulse on the right, no cyanosis or clubbing. The patient also has partial right foot amputation. Neurologically awake and alert and following commands and answering questions appropriately - Labs CBC & Chem 7: 11/21/17 04:30 11/21/17 04:30 Labs: Abnormal Lab Results - Last 24 Hours (Table) 11/20/17 11/21/17 11/21/17 Range/Units 04:33 04:30 04:30 RBC 3.40 L (4.30-5.90) m/uL Hgb 8.7 L (13.0-17.5) gm/dL Hct 29.3 L (39.0-53.0) % MCHC 29.8 L (31.0-37.0) g/dL RDW 16.2 H (11.5-15.5) % Lymphocytes # 0.7 L (1.0-4.8) k/uL Chloride 97 L (98-107) mmol/L Creatinine 5.80 H* (0.66-1.25) mg/dL Calcium 8.0 L (8.4-10.2) mg/dL Phosphorus 4.9 H (2.5-4.5) mg/dL Iron 20 L (65-175) ug/dL TIBC 166 L (228-460) ug/dL Iron Saturation 12.05 L (15.00-50.00) Ferritin 6790.0 H (22.0-322.0) ng/mL Alkaline Phosphatase 150 H (38-126) U/L Albumin 2.7 L (3.5-5.0) g/dL Microbiology - Last 24 Hours (Table) 11/18/17 14:39 Blood Culture - Preliminary Blood No Growth after 48 hours Assessment and Plan Plan: Assessment 1 acute dyspnea/fluid overload, secondary to missed dialysis in the setting of dialysis-dependent renal failure. The patient underwent 2 sessions of hemodialysis. The patient continues to have cough and congestion dyspnea and low-grade fever. There is a concern of an underlying lung infection addition to fluid overload. He is on Zosyn and vancomycin. He'll be given another session of dialysis today. 2 acute hypertensive emergency, likely secondary to missed dialysis in addition to a background hypertensive disorder. The patient has a improved BP control on today's evaluation 3 dialysis-dependent renal failure currently on hemodialysis 3 times a week MW and the patient missed his dialysis on Wednesday 4 preserved LV function with a component of hypertensive heart disease based on most his echocardiogram 5 coronary artery disease with previous [place] 6 acute febrile episodes currently under investigation 7 diabetic retinopathy 8 diabetic neuropathy 9 peripheral vascular disease with below-knee amputation on the left and partial dictation of the right foot along with chronic ulceration of the right lower extremity 10 previous MRSA soft tissue infection 11 fever, rule out underlying infection/sepsis, blood culture been sent and the patient was given a dose of Rocephin and vancomycin as an empiric antibiotic coverage 12 hyperlipidemia 13 seizure disorder 14 previous history of a left upper extremity DVT, line related 15 hypothyroidism 16 diabetic gastroparesis 17 chronic anemia 18 compression fracture of the vertebral spine Plan Monitor fever pattern. Continue Zosyn and vancomycin. Continue antihypertensive medication. Proceed with another session of dialysis today. Repeat chest x-ray in the morning. Keep the patient ICU for now. We'll continue to follow.
--- NOTE | 2017-11-21 13:33 | P.PN ---
Subjective Progress Note Date: 11/21/17 Principal diagnosis: 46-year-old male known to our practice, hospitalized for noncompliance and missing dialysis fluid overload, hypertension and generalized weakness and shortness of breath. Patient has a mild cough no chest pain. Home health aide stated that the patient's blood pressure had been significantly elevated and pulse ox was low. Patient states he had an episode of emesis and loose stool over the 48 hours prior to admission denies fever or chest pain denies chills. At the time of admission temp was 100.8 in the emergency room, initial blood pressures was 203/120 with a pulse ox of 95% on 5 L nasal cannula. Based on this the patient was started on a nitroglycerin drip. The patient has as of this morning had his third episode of in the hospital dialysis at which time approximately 3 L were taken off patient patient is currently on broad-spectrum antibiotics blood cultures were sent patient was also dosed with vancomycin. Patient currently has no headache no altered mentation no loose stool. Infectious disease has also been asked to consult patient was currently placed on Zosyn and vancomycin cultures have been negative thus far. Patient also has an wound on the right foot which has been being treated by Dr. Sy in the wound center Objective - Vital Signs Vital signs: Vital Signs Temp 97.6 F 11/21/17 12:00 Pulse 82 11/21/17 12:30 Resp 23 11/21/17 12:30 BP 156/95 11/21/17 12:30 Pulse Ox 94 L 11/21/17 12:30 Intake & Output 11/20/17 11/21/17 11/21/17 18:59 06:59 18:59 Intake Total 781.2 261.467 60 Output Total 3 2 Balance 778.2 259.467 60 Weight 88.9 kg 88.6 kg Intake: IV 120 130.0 60 0.9 NaCl- for a carrier 120 80 60 Piperacillin-Tazobactam 3 50.0 .375 gm In Dextrose/Water 1 50ml.bag @ 12.5 mls/hr IVPB Q12H TRAE Rx#: [id number] Intake, IV Titration 61.2 21.467 Amount Clevidipine Butyrate 25 61.2 21.467 mg In Empty Bag 1 bag @ 1 MG/HR 2 mls/hr IV .Q24H TRAE Rx#:[id number] Oral 600 110 Output: Stool 3 2 Other: Voiding Method Urinal Urinal Urinal # Bowel Movements 1 1 - Exam General: [Patient awake, alert and oriented times 3. Patient in no acute distress.] HEENT: [PERRL. EOMI. No pharyngeal erythema or exudate.] Neck: [No adenopathy.] Cardiac: [Heart regular in rate and rhythm. No S3. No S4. No clicks, rubs. No murmur.] Lungs: [Clear to auscultation bilaterally.] Abdomen: [No mass. No organomegaly. Bowel sounds presnt and normoactive in all 4 quadrants.] Extremes: Left leg has an old below-knee amputation well healed, right leg has an amputation of the fore foot with a Donny grade 3/4 diabetic ulcer of the bottom of the remaining plantar surface : [] Musculoskeletal: [No joint erythema, edema or tenderness.] Skin: [No rash.] Neurologic: [No lateralizing deficits. CN II - XII grossly intact.] Lymphatic: [No adenopathy.] - Labs CBC & Chem 7: 11/21/17 04:30 11/21/17 04:30 Labs: Abnormal Lab Results - Last 24 Hours (Table) 11/20/17 11/21/17 11/21/17 Range/Units 04:33 04:30 04:30 RBC 3.40 L (4.30-5.90) m/uL Hgb 8.7 L (13.0-17.5) gm/dL Hct 29.3 L (39.0-53.0) % MCHC 29.8 L (31.0-37.0) g/dL RDW 16.2 H (11.5-15.5) % Lymphocytes # 0.7 L (1.0-4.8) k/uL Chloride 97 L (98-107) mmol/L Creatinine 5.80 H* (0.66-1.25) mg/dL Calcium 8.0 L (8.4-10.2) mg/dL Phosphorus 4.9 H (2.5-4.5) mg/dL Iron 20 L (65-175) ug/dL TIBC 166 L (228-460) ug/dL Iron Saturation 12.05 L (15.00-50.00) Ferritin 6790.0 H (22.0-322.0) ng/mL Alkaline Phosphatase 150 H (38-126) U/L Albumin 2.7 L (3.5-5.0) g/dL Microbiology - Last 24 Hours (Table) 11/18/17 14:39 Blood Culture - Preliminary Blood No Growth after 48 hours Assessment and Plan (1) Fever Narrative/Plan: Patient currently has negative blood cultures culture of foot currently pending Patient is currently being managed on Zosyn and vancomycin IV Wound currently being managed by Dr. Charlie Sy M.D. infectious disease in the wound center Current Visit: Yes Status: Acute Code(s): R50.9 - FEVER, UNSPECIFIED SNOMED Code(s): 003107080 (2) Fluid overload Narrative/Plan: Patient had been noncompliant failed to show up for dialysis his last scheduled visit Patient has undergone what I believe to be third session of dialysis this morning 3 L were taken off Current Visit: Yes Status: Acute Code(s): E87.70 - FLUID OVERLOAD, UNSPECIFIED SNOMED Code(s): 08979626 (3) Hypertensive urgency Narrative/Plan: Significantly improved over the last 36 hours However blood pressure is still slightly elevated Patient has been quite fluid overloaded and underwent what I believe to be the third episode of dialysis this morning at which time 3 L had been removed from patient's system Current Visit: Yes Status: Acute Code(s): I10 - ESSENTIAL (PRIMARY) HYPERTENSION SNOMED Code(s): 205014759 (4) End stage renal disease on dialysis Narrative/Plan: Patient has been undergoing self peritoneal dialysis at home in the recent past Patient developed failure of peritoneal access site starting with infection several months ago Ending with failure of the of the access site and concern for peritoneal infection again this was removed recently Patient has dialysis access site in right neck area with consultation with Dr. Ndiaye for permanent site in either one of his arms Consequently patient has been undergoing hemodialysis for approximately the last 6-8 weeks Current Visit: Yes Status: Chronic Code(s): N18.6 - END STAGE RENAL DISEASE SNOMED Code(s): 155073782 (5) Acute vomiting Narrative/Plan: This appears to be resolving patient states he hasn't vomited for 2 days however he still feels nauseous intermittent Current Visit: No Status: Acute Code(s): R11.10 - VOMITING, UNSPECIFIED SNOMED Code(s): 30177735 (6) Atypical chest pain Current Visit: No Status: Acute Code(s): R07.89 - OTHER CHEST PAIN SNOMED Code(s): 175144170 (7) Bilateral pulmonary infiltrates on chest x-ray Current Visit: No Status: Acute Code(s): R91.8 - OTHER NONSPECIFIC ABNORMAL FINDING OF LUNG FIELD SNOMED Code(s): 645020032 (8) Cellulitis Narrative/Plan: Resolved Current Visit: No Status: Acute Code(s): L03.90 - CELLULITIS, UNSPECIFIED SNOMED Code(s): 639941183 (9) Charcot's joint of foot in type 1 diabetes mellitus Narrative/Plan: Partial amputation noted, ulcer on the remainder of the plantar surface Current Visit: No Status: Acute Priority: Medium Code(s): E10.610 - TYPE 1 DIABETES MELLITUS W DIABETIC NEUROPATHIC ARTHROPATHY SNOMED Code(s): 45309794 (10) Chronic renal disease Current Visit: No Status: Acute Code(s): N18.9 - CHRONIC KIDNEY DISEASE, UNSPECIFIED SNOMED Code(s): 661900499 (11) Chronic renal failure, stage 4 (severe) Current Visit: No Status: Acute Code(s): N18.4 - CHRONIC KIDNEY DISEASE, STAGE 4 (SEVERE) SNOMED Code(s): 27502571 (12) DKA (diabetic ketoacidoses) Current Visit: No Status: Acute Code(s): E13.10 - OTH DIABETES MELLITUS WITH KETOACIDOSIS WITHOUT COMA SNOMED Code(s): 276779759 (13) Diabetes mellitus type 2 with complications, uncontrolled Current Visit: No Status: Acute Code(s): E11.8 - TYPE 2 DIABETES MELLITUS WITH UNSPECIFIED COMPLICATIONS; E11.65 - TYPE 2 DIABETES MELLITUS WITH HYPERGLYCEMIA SNOMED Code(s): 382857923 (14) Diabetic foot ulcer Current Visit: No Status: Acute Code(s): E11.621 - TYPE 2 DIABETES MELLITUS WITH FOOT ULCER; L97.509 - NON-PRESSURE CHRONIC ULCER OTH PRT UNSP FOOT W UNSP SEVERITY SNOMED Code(s): 503438457 (15) Diabetic ketoacidosis associated with type 2 diabetes mellitus Current Visit: No Status: Acute Code(s): E13.10 - OTH DIABETES MELLITUS WITH KETOACIDOSIS WITHOUT COMA SNOMED Code(s): 914252244 (16) Diabetic ulcer of right foot Current Visit: No Status: Acute Code(s): E11.621 - TYPE 2 DIABETES MELLITUS WITH FOOT ULCER SNOMED Code(s): 946104402 (17) Diabetic ulcer of right foot associated with diabetes mellitus due to underlying condition, with fat layer exposed Current Visit: No Status: Acute Code(s): E08.621 - DIABETES MELLITUS DUE TO UNDERLYING CONDITION W FOOT ULCER; L97.512 - NON-PRS CHRONIC ULCER OTH PRT RIGHT FOOT W FAT LAYER EXPOSED SNOMED Code(s): 779014281 (18) Encounter for CAPD (continuous ambulatory peritoneal dialysis) Current Visit: No Status: Acute Code(s): Z99.2 - DEPENDENCE ON RENAL DIALYSIS SNOMED Code(s): 663324380 (19) Fever Current Visit: No Status: Acute Code(s): R50.9 - FEVER, UNSPECIFIED SNOMED Code(s): 348160502 (20) Gallbladder sludge Current Visit: No Status: Acute Code(s): K82.8 - OTHER SPECIFIED DISEASES OF GALLBLADDER SNOMED Code(s): 86922823 (21) Gastroenteritis Current Visit: No Status: Acute Code(s): K52.9 - NONINFECTIVE GASTROENTERITIS AND COLITIS, UNSPECIFIED SNOMED Code(s): 58847582 (22) Hematemesis with nausea Current Visit: No Status: Acute Code(s): K92.0 - HEMATEMESIS SNOMED Code(s ): 1194317 (23) Hemodialysis catheter malfunction Current Visit: No Status: Acute Code(s): T82.41XA - BREAKDOWN (MECHANICAL) OF VASCULAR DIALYSIS CATHETER, INIT SNOMED Code(s): 49693571 (24) Hyperglycemia Current Visit: No Status: Acute Code(s): R73.9 - HYPERGLYCEMIA, UNSPECIFIED SNOMED Code(s): 06111759 (25) Ileitis, terminal Current Visit: No Status: Acute Code(s): K50.00 - CROHN'S DISEASE OF SMALL INTESTINE WITHOUT COMPLICATIONS SNOMED Code(s): 382495887 (26) Peritonitis due to infected peritoneal dialysis catheter Current Visit: No Status: Acute Code(s): T85.71XA - INFECT/INFLM REACTION DUE TO PERITON DIALYSIS CATHETER, INIT; K65.9 - PERITONITIS, UNSPECIFIED SNOMED Code(s): 142075865 (27) Poorly controlled type 2 diabetes mellitus with circulatory disorder Current Visit: No Status: Acute Code(s): E11.59 - TYPE 2 DIABETES MELLITUS WITH OTH CIRCULATORY COMPLICATIONS; E11.65 - TYPE 2 DIABETES MELLITUS WITH HYPERGLYCEMIA SNOMED Code(s): 63428540 (28) Seizure disorder Current Visit: No Status: Acute Code(s): G40.909 - EPILEPSY, UNSP, NOT INTRACTABLE, WITHOUT STATUS EPILEPTICUS SNOMED Code(s): 998779620 (29) Sepsis Current Visit: No Status: Acute Code(s): A41.9 - SEPSIS, UNSPECIFIED ORGANISM SNOMED Code(s): 53642444 (30) TIA (transient ischemic attack) Current Visit: No Status: Acute Code(s): G45.9 - TRANSIENT CEREBRAL ISCHEMIC ATTACK, UNSPECIFIED SNOMED Code(s): 925690949 (31) Urinary retention Current Visit: No Status: Acute Code(s): R33.9 - RETENTION OF URINE, UNSPECIFIED SNOMED Code(s): 058838671 (32) V-tach Current Visit: No Status: Acute Code(s): I47.2 - VENTRICULAR TACHYCARDIA SNOMED Code(s): 71615419 (33) Vomiting Current Visit: No Status: Acute Code(s): R11.10 - VOMITING, UNSPECIFIED SNOMED Code(s): 140349033 (34) Weakness Current Visit: No Status: Acute Code(s): R53.1 - WEAKNESS SNOMED Code(s): 35738377 (35) Below knee amputation status Current Visit: No Status: Chronic Code(s): Z89.519 - ACQUIRED ABSENCE OF UNSPECIFIED LEG BELOW KNEE SNOMED Code(s): 292143583 (36) Chronic renal failure Current Visit: No Status: Chronic Code(s): N18.9 - CHRONIC KIDNEY DISEASE, UNSPECIFIED SNOMED Code(s): 94071589 (37) Diabetes mellitus Current Visit: No Status: Chronic Code(s): E11.9 - TYPE 2 DIABETES MELLITUS WITHOUT COMPLICATIONS SNOMED Code(s): 13373195 (38) Diabetes type 2, uncontrolled Current Visit: No Status: Chronic Code(s): E11.65 - TYPE 2 DIABETES MELLITUS WITH HYPERGLYCEMIA SNOMED Code(s): 90376408 (39) Gastroparesis Current Visit: No Status: Chronic Code(s): K31.84 - GASTROPARESIS SNOMED Code(s): 716157225 (40) HTN (hypertension) Current Visit: No Status: Chronic Code(s): I10 - ESSENTIAL (PRIMARY) HYPERTENSION SNOMED Code(s): 68805618 (41) High risk for readmission Current Visit: No Status: Chronic Code(s): Z91.89 - OTH PERSONAL RISK FACTORS, NOT ELSEWHERE CLASSIFIED SNOMED Code(s): 276671820 (42) History of myocardial infarction Current Visit: No Status: Chronic Code(s): I25.2 - OLD MYOCARDIAL INFARCTION SNOMED Code(s): 440533281 (43) PVD (peripheral vascular disease) Current Visit: No Status: Chronic Code(s): I73.9 - PERIPHERAL VASCULAR DISEASE, UNSPECIFIED SNOMED Code(s): 953944660 (44) Peritoneal dialysis catheter in situ Current Visit: No Status: Chronic Code(s): Z99.2 - DEPENDENCE ON RENAL DIALYSIS SNOMED Code(s): 628493024 Plan: Patient is slowly improving, please note that this patient while noncombative and quite easy to communicate with has been noncompliant for quite some time and in fact I suspect this was the reason that he and his physician prior to Dr. Hough and I and he parted company. Have had several conversations with this young man regarding compliance with dialysis with managing blood sugars with blood pressure meds he seems to accept and understand the need to care for himself and take a more aggressive role in his disease process is however that is not apparent in the current results Time with Patient: Greater than 30
[2017-11-21] MEDS: LOSARTAN 50 MG TAB PO SCH ×2 (14:16→22:08)
[2017-11-21 17:09] LABS: Glucose,Whole Blood 94 mg/dL (75-99)
[2017-11-21] MEDS: TAMSULOSIN 0.4 MG CAP.ER.24H PO SCH (17:44)
[2017-11-21 20:19] LABS: Glucose,Whole Blood 88 mg/dL (75-99)
[2017-11-21] MEDS: INSULIN DETEMIR 100 UNIT/ML 10 ML VIAL SQ SCH (22:01)
[2017-11-21] MEDS: FAMOTIDINE 20 MG TAB PO SCH (22:08)
[2017-11-21] MEDS: traMADol 50 MG TAB PO PRN (22:37)
--- NOTE | 2017-11-21 22:50 | PN ---
PROGRESS NOTE DATE OF SERVICE: 11/21/2017. REASON FOR FOLLOWUP VISIT: Fever. INTERVAL HISTORY: The patient overall fever pattern has improved. He has been breathing comfortably. Denies having any chest pain. Still complaining of feeling nauseous and refusing to take the as that upset his stomach and no diarrhea. EXAMINATION: Blood pressure 150/90 with a pulse of 72, temperature of 98. He is 97% on 5 L nasal cannula. General description is a middle-aged male lying in bed in no distress. Respiratory system: Unlabored breathing, clear to auscultation anteriorly. Heart S1, S2. Regular rate and rhythm. Mildly distended, no guarding and no rigidity. LABS: Hemoglobin 8.7, white count 4.5, BUN of 20, creatinine 5.0. Blood cultures have been negative so far. DIAGNOSTIC IMPRESSION AND PLAN: Patient with fever, feeling nauseous, abdominal pain and vomiting. Concern for underlying abdominal source. Unfortunately, the patient refusing to drink contrast for CT examination without contrast may not be that useful. Keep the patient on Vanco and Zosyn at this point while waiting for the culture to finalize. Hopefully, CT will be completed. Dr. Sy will follow this patient as of tomorrow to which the patient is not . Continue supportive care. MMODL / IJN: [id number] /
[2017-11-22] MEDS: PIPERACILLIN-TAZOBACTAM 3.375 GM in DEXTROSE/WATER 1 50ML.BAG IVPB SCH ×2 (01:04→14:12)
[2017-11-22 04:28] LABS: Anisocytosis Slight; Basophils % (A) 0 %; Eosinophils # (A) 0.2 k/uL (0-0.7); Eosinophils % (A) 5 %; HCT 30.6 % (39.0-53.0); Hypochromasia Marked; Lymphocytes # (A) 0.6 k/uL (1.0-4.8); Lymphocytes % (A) 16 %; MCH 25.5 pg (25.0-35.0); MCHC 29.4 g/dL (31.0-37.0); MCV 86.7 fL (80.0-100.0); Mean Platelet Volume 7.3; Monocytes # (A) 0.2 k/uL (0-1.0); Monocytes % (A) 6 %; Neutrophils # (A) 2.7 k/uL (1.3-7.7); Neutrophils % (A) 71 %; Platelet Count 276 k/uL (150-450); RBC 3.53 m/uL (4.30-5.90); RDW 16.7 % (11.5-15.5); WBC 3.8 k/uL (3.8-10.6)
[2017-11-22 04:50] LABS: Albumin 2.7 g/dL (3.5-5.0); Calcium 8.2 mg/dL (8.4-10.2); Phosphorus 4.3 mg/dL (2.5-4.5); Potassium 4.2 mmol/L (3.5-5.1); Total Bilirubin 0.5 mg/dL (0.2-1.3); Total Protein 6.3 g/dL (6.3-8.2)
[2017-11-22 04:55] LABS: Vancomycin,Random 23.7 ug/mL
[2017-11-22] MEDS: CARVEDILOL 12.5 MG TAB PO SCH ×3 (06:46→19:43)
[2017-11-22] MEDS: LEVOTHYROXINE 25 MCG TAB PO SCH (06:46)
[2017-11-22 07:07] LABS: Glucose,Whole Blood 75 mg/dL (75-99)
[2017-11-22] MEDS: IPRATROPIUM-ALBUTEROL 3 ML NEB INHALATION SCH ×4 (07:11→19:55)
[2017-11-22] MEDS: SODIUM BICARBONATE TAB 650 MG TAB PO SCH ×2 (07:33→22:25)
[2017-11-22] MEDS: SEVELAMER 800 MG TAB PO SCH ×6 (07:33→22:27)
[2017-11-22] MEDS: LOSARTAN 50 MG TAB PO SCH ×2 (07:34→22:24)
[2017-11-22] MEDS: acetaZOLAMIDE 250 MG TAB PO SCH ×2 (07:34→22:21)
[2017-11-22] MEDS: AMIODARONE 200 MG TAB PO SCH ×2 (07:34→22:22)
[2017-11-22] MEDS: GABAPENTIN 300 MG CAP PO SCH ×2 (07:34→22:24)
[2017-11-22] MEDS: levETIRAcetam 500 MG TAB PO SCH ×2 (07:34→22:24)
[2017-11-22] MEDS: CALCIUM ACETATE 667 MG CAP PO SCH ×5 (07:35→19:43)
[2017-11-22] MEDS: cloNIDine HCL 0.1 MG TAB PO SCH ×4 (07:35→22:27)
[2017-11-22] MEDS: amLODIPine 10 MG TAB PO SCH (07:35)
[2017-11-22] MEDS: traMADol 50 MG TAB PO PRN (07:38)
[2017-11-22] MEDS: guaiFENesin-Coden 100-10MG/5ML 10 ML CUP PO PRN (07:39)
--- NOTE | 2017-11-22 08:03 | XR ---
EXAMINATION TYPE: XR chest 1V portable DATE OF EXAM: 11/22/2017 COMPARISON: 11/21/2017 HISTORY: Shortness of breath TECHNIQUE: Single frontal view of the chest is obtained. FINDINGS: Diffuse interstitial pattern. The heart is enlarged there is a dialysis catheter. No pneum othorax. Findings are stable. Evidence of previous vertebroplasty noted. IMPRESSION: Stable diffuse interstitial pattern could been the basis of CHF, atypical pneumonia or i nterstitial pneumonitis.
--- NOTE | 2017-11-22 10:24 | P.PN ---
Subjective This is a 46-year-old white male well-known to currently myself. He is very noncompliant. He missed dialysis will be told not to come. He was feeling nauseated and short of breath. He presented emergency room via EMS for this. He was found to be volume overloaded. He's also been having fever. He is in the intensive care unit for further management. Nephrology, critical care , and infectious disease are following. He denies any depression at this time. Objective - Vital Signs Vital signs: Vital Signs Temp 97.8 F 11/22/17 08:00 Pulse 70 11/22/17 09:00 Resp 18 11/22/17 09:00 BP 171/96 11/22/17 09:00 Pulse Ox 96 11/22/17 09:00 Intake & Output 11/21/17 11/22/17 11/22/17 18:59 06:59 18:59 Intake Total 420 140 20 Output Total 3030 0 1 Balance -2610 140 19 Weight 82.7 kg Intake: IV 420 140 20 0.9 NaCl- for a carrier 120 90 20 Piperacillin-Tazobactam 3 50 50 .375 gm In Dextrose/Water 1 50ml.bag @ 12.5 mls/hr IVPB Q12H [facility] Rx#: [id number] Vancomycin 1,500 mg In 250 Sodium Chloride 0.9% 250 ml @ 125 mls/hr IVPB ONCE ONE Rx#:[id number] Output: Urine 30 0 0 Stool 1 Other 3000 Other: Voiding Method Urinal Urinal Urinal # Bowel Movements 1 0 - Exam General: The patient is awake and alert, in no distress, he is currently undergoing Dialysis Neck: The neck is supple, there is no thyromegaly, lymphadenopathy, tenderness or JVD. Cardiovascular: S1S2 is normal, There is a regular rate and rhythm. No , rub or gallop is appreciated.systolicmurmur over the right st Respiratory: Lungs are slightly coarseto auscultation bilaterally, respirations are non-labored, breath sounds are equal. Gastrointestinal: Soft, non-distended, non-tender abdomen without masses or organomegaly noted. There is no rebound or guarding present. Bowel sounds are unremarkable. 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 Coordination appears grossly intact. Speech is normal. Skin: Skin is warm and dry and no rashes or lesions are noted except as listed above. - Labs CBC & Chem 7: 11/22/17 04:16 11/22/17 04:16 Labs: Abnormal Lab Results - Last 24 Hours (Table) 11/22/17 11/22/17 Range/Units 04:16 04:16 RBC 3.53 L (4.30-5.90) m/uL Hgb 9.0 L (13.0-17.5) gm/dL Hct 30.6 L (39.0-53.0) % MCHC 29.4 L (31.0-37.0) g/dL RDW 16.7 H (11.5-15.5) % Lymphocytes # 0.6 L (1.0-4.8) k/uL Creatinine 5.30 H* (0.66-1.25) mg/dL Calcium 8.2 L (8.4-10.2) mg/dL Alkaline Phosphatase 154 H (38-126) U/L Albumin 2.7 L (3.5-5.0) g/dL Microbiology - Last 24 Hours (Table) 11/21/17 11:45 Blood Culture Gram Stain - Preliminary Blood 11/21/17 11:45 Blood Culture - Final Blood 11/18/17 14:39 Blood Culture - Preliminary Blood No Growth after 72 hours Assessment and Plan Plan: Assessment acute fluid overload, secondary to missed dialysis in the setting of dialysis- dependent renal failure. acute hypertensive emergency, dialysis-dependent renal failure currently on hemodialysis 3 times a week MWF and the patient missed his dialysis on Wednesday coronary artery disease with previous WI fever insulin-dependent diabetes with diabetic retinopathy, diabetic neuropathy peripheral vascular disease with below-knee amputation on the left and midfoot amputation of the right foot Soria grade 3 diabetic ulcer right pedal foot hyperlipidemia seizure disorder history of a left upper extremity DVT hypothyroidism anemia of chronic disease compression fracture of the vertebral spine I will await further recommendations from critical care He is undergoing dialysis. currently. the cause of his fever is being evaluated.
--- NOTE | 2017-11-22 10:35 | P.PN ---
Subjective Progress Note Date: 11/22/17 Principal diagnosis: Acute fluid overload secondary to missed dialysis and dialysis dependent renal failure. Acute hypertensive emergency. This is a 46-year-old male patient was hospitalized today and was brought into the intensive care unit because of missing dialysis, fluid overload, hypertension, generalized weakness and shortness of breath. He apparently missed dialysis on Wednesday secondary to fatigue and generalized weakness. He had a mild cough and no chest pain. According to the home health care, the patient's blood pressure was significantly elevated and the pulse ox was also low. He had some emesis and diarrhea over the past 48 hours. No chest pain. No fever or chills. Chest x-ray was done in the emergency department and the patient had some cardiomegaly and pulmonary vessel congestion. Right hemidiaphragm is elevated and the patient has a temporary dialysis catheter in the right IJ. The patient had a temperature 100.8 in the emergency department. Initial blood pressure was 203 of 120 with a pulse ox of 95% on 5 L of oxygen by nasal cannula. Based on this, the patient was started on nitroglycerin drip. The patient will be having a stat dialysis and nephrology has been informed of these. Blood cultures were sent and the patient was started also on broad-spectrum antibiotics and the patient was given a dose of vancomycin in the emergency department in addition to a dose of IV Rocephin. This patient has multiple medical problems and comorbidities. He has diabetes mellitus type 2 with multiple complications related to diabetes including end- stage renal disease. He was initially started on peritoneal dialysis to which she subsequently failed and he was recently switched to hemodialysis. He has also history of hypertension, hyperlipidemia, acid reflux, coronary artery disease with previous [place], hypothyroidism and seizure disorder. He has had multiple hospitalizations in the past. His peritoneal dialysis has been removed and the patient is currently being dialyzed to a temporary dialysis catheter. He has had previous below knee amputation for severe peripheral vascular disease. He has a previous history of MRSA in the past. He has had cataracts and previous eye surgery/and laser eye surgery for diabetic retinopathy. He has also previous history of DVT. He has seen also Dr. Sy regarding chronic lower extremities ulceration. Other medical problems are previous history of TIA, diabetic gastroparesis, peripheral neuropathy, chronic anemia and previous history of compression fracture of the vertebral spine. His DVT was related to a previous IV line in the upper extremity on the left. Patient was reevaluated today on 11/22/2017, he is presently receiving hemodialysis, planning to remove about 4 L of fluids today. Patient is in bed, comfortable, denies any shortness of breath cough or wheezing, no nausea no vomiting no abdominal pain. Blood pressure is a bit elevated, however the patient is off kleviprex drip. And he is on oral medications for blood pressure control. Patient remains on a combination of Zosyn and vancomycin, cultures are negative so far. And C. diff screen is negative. Blood cultures remain negative so far since admission. Patient was febrile on admission, and there was a concern about possible underlying pulmonary infection. Chest x-ray is consistent with pulmonary edema, almost impossible to rule out underlying pneumonitis, and I feel it is less likely at this point. Objective - Vital Signs Vital signs: Vital Signs Temp 97.8 F 11/22/17 08:00 Pulse 69 11/22/17 10:00 Resp 18 11/22/17 10:00 BP 182/98 11/22/17 10:00 Pulse Ox 97 11/22/17 10:00 Intake & Output 11/21/17 11/22/17 11/22/17 18:59 06:59 18:59 Intake Total 420 140 30 Output Total 3030 0 1 Balance -2610 140 29 Weight 82.7 kg Intake: IV 420 140 30 0.9 NaCl- for a carrier 120 90 30 Piperacillin-Tazobactam 3 50 50 .375 gm In Dextrose/Water 1 50ml.bag @ 12.5 mls/hr IVPB Q12H [facility] Rx#: [id number] Vancomycin 1,500 mg In 250 Sodium Chloride 0.9% 250 ml @ 125 mls/hr IVPB ONCE ONE Rx#:[id number] Output: Urine 30 0 0 Stool 1 Other 3000 Other: Voiding Method Urinal Urinal Urinal # Bowel Movements 1 0 - Exam Gen. appearance revealed a 46-year-old white male, in no distress, Head exam was generally normal. There was no scleral icterus or corneal arcus. Mucous membranes were moist. Neck was supple and without jugular venous distension, thyromegaly, or carotid bruits. Carotids were easily palpable bilaterally. There was no adenopathy. The patient has a permacath in his right IJ and exit site is clean Lung sounds, minimal fine crackles at the bases, no rhonchi, no wheezes. Cardiac exam revealed the PMI to be normally situated and sized. The rhythm was regular and no extrasystoles were noted during several minutes of auscultation. The first and second heart sounds were normal and physiologic splitting of the second heart sound was noted. There were no murmurs, rubs, clicks, or gallops. Abdominal exam revealed normal bowel sounds. The abdomen was soft, non-tender, and without masses, organomegaly, or appreciable enlargement of the abdominal aorta. Extremities reveal a below-knee amputation on the left, chronic ulceration on the right, diminished pulse on the right, no cyanosis or clubbing. The patient also has partial right foot amputation. Neurologically awake and alert and following commands and answering questions appropriately Psychiatric: Normal mood affect and mental status examination. Lymphatics: No lymphadenopathy. - Labs CBC & Chem 7: 11/22/17 04:16 11/22/17 04:16 Labs: Abnormal Lab Results - Last 24 Hours (Table) 11/22/17 11/22/17 Range/Units 04:16 04:16 RBC 3.53 L (4.30-5.90) m/uL Hgb 9.0 L (13.0-17.5) gm/dL Hct 30.6 L (39.0-53.0) % MCHC 29.4 L (31.0-37.0) g/dL RDW 16.7 H (11.5-15.5) % Lymphocytes # 0.6 L (1.0-4.8) k/uL Creatinine 5.30 H* (0.66-1.25) mg/dL Calcium 8.2 L (8.4-10.2) mg/dL Alkaline Phosphatase 154 H (38-126) U/L Albumin 2.7 L (3.5-5.0) g/dL Microbiology - Last 24 Hours (Table) 11/21/17 11:45 Blood Culture Gram Stain - Preliminary Blood 11/21/17 11:45 Blood Culture - Final Blood 11/18/17 14:39 Blood Culture - Preliminary Blood No Growth after 72 hours Assessment and Plan Assessment: 1 acute dyspnea/fluid overload, secondary to missed dialysis in the setting of dialysis-dependent renal failure. The patient underwent 3 sessions of hemodialysis. Patient is gradually improving. Chest x-ray continues to show pulmonary edema, and fluid overload, strongly doubt underlying pneumonitis. 2 acute hypertensive emergency, likely secondary to missed dialysis in addition to a background hypertensive disorder. Blood pressure is improving but still requiring multiple oral meds for blood pressure control, 3 dialysis-dependent renal failure currently on hemodialysis 3 times a week MWF and the patient missed his dialysis on Wednesday 4 preserved LV function with a component of hypertensive heart disease based on most his echocardiogram 5 coronary artery disease with previous [place] 6 acute febrile illness, being investigated, remains on antibiotics empirically , antibiotics are handled by infectious disease on the case. 7 diabetic retinopathy 8 diabetic neuropathy 9 peripheral vascular disease with below-knee amputation on the left and partial dictation of the right foot along with chronic ulceration of the right lower extremity 10 previous MRSA soft tissue infection 11 fever, rule out underlying infection/sepsis, blood culture been sent and the patient was given a dose of Rocephin and vancomycin as an empiric antibiotic coverage 12 hyperlipidemia 13 seizure disorder 14 previous history of a left upper extremity DVT, line related 15 hypothyroidism 16 diabetic gastroparesis 17 chronic anemia 18 compression fracture of the vertebral spine Plan: Continue hemodialysis, continue antibiotics, keep patient in the ICU for today, may transfer the patient are the ICU later on this evening if no major issues develop between now and then. We'll continue to follow closely.
[2017-11-22] MEDS ORDERED: HEPARIN SODIUM,PORCINE 5,000 UNIT/ML 1 ML VIAL ONE (11:45)
[2017-11-22] MEDS: ONDANSETRON 4 MG/2 ML VIAL IVP PRN (12:20)
[2017-11-22] MEDS: THIAMINE 100 MG TAB PO SCH (13:16)
[2017-11-22] MEDS: TAMSULOSIN 0.4 MG CAP.ER.24H PO SCH ×2 (17:30→19:43)
--- NOTE | 2017-11-22 17:58 | P.PN ---
Subjective Progress Note Date: 11/22/17 46-year-old male presents to Hospital after missing hemodialysis and became considerably worse with nausea and emesis and weakness in counseling was provided the hospital. Concerns underlying infection and was part since it care unit because of his extreme hypertension and need for urgent hemodialysis. The patient is known to the service from his recent hospitalizations were he had difficulties after. He dialysis catheter was placed. Originally did well but then was having difficulties at the site and there was concerns to peritonitis. The catheter was removed after treated for peritonitis and reimplanted. She with her after malfunctioned and eventually had to be withdrawn. Now receiving his dialysis. He will dialysis. We'll no longer be attempted at peritoneal dialysis. The patient is feeling somewhat better since admission still has some residual nausea and intermittent emesis. Uremia is improving after his several sessions of hemodialysis. Continues to have some residual nausea and emesis which are common for him when he is ill. Denies fevers or chills. Does feel better than admission. Objective - Vital Signs Vital signs: Vital Signs Temp 96.9 F L 11/22/17 15:00 Pulse 74 11/22/17 15:00 Resp 16 11/22/17 15:00 BP 140/75 11/22/17 15:00 Pulse Ox 73 L 11/22/17 15:00 Intake & Output 11/21/17 11/22/17 11/22/17 18:59 06:59 18:59 Intake Total 420 140 30 Output Total 3030 0 1 Balance -2610 140 29 Weight 82.7 kg Intake: IV 420 140 30 0.9 NaCl- for a carrier 120 90 30 Piperacillin-Tazobactam 3 50 50 .375 gm In Dextrose/Water 1 50ml.bag @ 12.5 mls/hr IVPB Q12H [facility] Rx#: [id number] Vancomycin 1,500 mg In 250 Sodium Chloride 0.9% 250 ml @ 125 mls/hr IVPB ONCE ONE Rx#:[id number] Output: Urine 30 0 0 Stool 1 Other 3000 Other: Voiding Method Urinal Urinal Urinal # Voids 1 # Bowel Movements 1 0 - Exam 46-year-old male not feeling well tonight because of nausea HEENT: Anicteric conjunctiva are pink and moist nasal mucosa grossly intact without significant lesions, there is no thrush. Neck: The neck is supple without significant lymphadenopathy or thyromegaly. Lungs: Good bilateral air entry without significant crackles or wheezing. There is no significant bronchial sounds. There is no egophony or dullness. Heart: Regular rate and rhythm with an audible S1-S2, no S3 no S4. There is no significant murmur click or rub, PMI was nondisplaced. Abdomen: Positive bowel sounds soft and minimally tender without palpable masses or organomegaly. The distention is generally resolved in the peritoneal dialysis catheter has been removed Extremities: The upper extremities have excellent pulses they are symmetric, no significant petechiae or telangiectasia. No splinter hemorrhages were noted. Left lower extremity without difficulty at the residual limb. Ulceration to the right foot plantar as per nursing documentation Neuro: Awake alert oriented to person place and time. There are no acute new gross focal sensory motor deficits. - Labs CBC & Chem 7: 11/22/17 04:16 11/22/17 04:16 Labs: Abnormal Lab Results - Last 24 Hours (Table) 11/22/17 11/22/17 Range/Units 04:16 04:16 RBC 3.53 L (4.30-5.90) m/uL Hgb 9.0 L (13.0-17.5) gm/dL Hct 30.6 L (39.0-53.0) % MCHC 29.4 L (31.0-37.0) g/dL RDW 16.7 H (11.5-15.5) % Lymphocytes # 0.6 L (1.0-4.8) k/uL Creatinine 5.30 H* (0.66-1.25) mg/dL Calcium 8.2 L (8.4-10.2) mg/dL Alkaline Phosphatase 154 H (38-126) U/L Albumin 2.7 L (3.5-5.0) g/dL Microbiology - Last 24 Hours (Table) 11/18/17 14:39 Blood Culture - Preliminary Blood No Growth after 96 hours 11/21/17 12:20 Blood Culture - Preliminary Blood No Growth after 24 hours 11/21/17 11:45 Blood Culture Gram Stain - Preliminary Blood 11/21/17 11:45 Blood Culture - Final Blood Laboratory Results WBC 3.8 k/uL (3.8-10.6) 11/22/17 04:16 RBC 3.53 m/uL (4.30-5.90) L 11/22/17 04:16 Hgb 9.0 gm/dL (13.0-17.5) L 11/22/17 04:16 Hct 30.6 % (39.0-53.0) L 11/22/17 04:16 MCV 86.7 fL (80.0-100.0) 11/22/17 04:16 MCH 25.5 pg (25.0-35.0) 11/22/17 04:16 MCHC 29.4 g/dL (31.0-37.0) L 11/22/17 04:16 RDW 16.7 % (11.5-15.5) H 11/22/17 04:16 Plt Count 276 k/uL (150-450) 11/22/17 04:16 Neutrophils % 71 % 11/22/17 04:16 Lymphocytes % 16 % 11/22/17 04:16 Monocytes % 6 % 11/22/17 04:16 Eosinophils % 5 % 11/22/17 04:16 Basophils % 0 % 11/22/17 04:16 Neutrophils # 2.7 k/uL (1.3-7.7) 11/22/17 04:16 Lymphocytes # 0.6 k/uL (1.0-4.8) L 11/22/17 04:16 Monocytes # 0.2 k/uL (0-1.0) 11/22/17 04:16 Eosinophils # 0.2 k/uL (0-0.7) 11/22/17 04:16 Basophils # 0.0 k/uL (0-0.2) 11/22/17 04:16 Hypochromasia Marked 11/22/17 04:16 Poikilocytosis Slight 11/21/17 04:30 Anisocytosis Slight 11/22/17 04:16 PT 10.4 sec (9.0-12.0) 11/18/17 14:39 INR 1.1 (<1.2) 11/18/17 14:39 APTT 25.6 sec (22.0-30.0) 11/18/17 14:39 Sodium 138 mmol/L (137-145) 11/22/17 04:16 Potassium 4.2 mmol/L (3.5-5.1) 11/22/17 04:16 Chloride 98 mmol/L (98-107) 11/22/17 04:16 Carbon Dioxide 27 mmol/L (22-30) 11/22/17 04:16 Anion Gap 13 mmol/L 11/22/17 04:16 BUN 18 mg/dL (9-20) 11/22/17 04:16 Creatinine 5.30 mg/dL (0.66-1.25) H* 11/22/17 04:16 Est GFR (CKD-EPI)AfAm 14 (>60 ml/min/1.73 sqM) 11/22/17 04:16 Est GFR (CKD-EPI)NonAf 12 (>60 ml/min/1.73 sqM) 11/22/17 04:16 Glucose 80 mg/dL (74-99) 11/22/17 04:16 POC Glucose (mg/dL) 75 mg/dL (75-99) 11/22/17 07:05 POC Glu Medical Coding Manager ID Emiliana Wick 11/22/17 07:[address] Glu mg/dL 134 11/19/17 05:06 Hemoglobin A1c 6.3 % (4.0-6.0) H 11/19/17 05:06 Plasma Lactic Acid Massimo 0.9 mmol/L (0.7-2.0) 11/18/17 14:39 Calcium 8.2 mg/dL (8.4-10.2) L 11/22/17 04:16 Phosphorus 4.3 mg/dL (2.5-4.5) 11/22/17 04:16 Magnesium 2.0 mg/dL (1.6-2.3) 11/22/17 04:16 Iron 20 ug/dL (65-175) L 11/20/17 04:33 TIBC 166 ug/dL (228-460) L 11/20/17 04:33 Iron Saturation 12.05 (15.00-50.00) L 11/20/17 04:33 Ferritin 6790.0 ng/mL (22.0-322.0) H 11/20/17 04:33 Total Bilirubin 0.5 mg/dL (0.2-1.3) 11/22/17 04:16 AST 41 U/L (17-59) 11/22/17 04:16 ALT 47 U/L (21-72) 11/22/17 04:16 Alkaline Phosphatase 154 U/L (38-126) H 11/22/17 04:16 Total Creatine Kinase 125 U/L (55-170) 11/18/17 14:39 CK-MB (CK-2) 4.8 ng/mL (0.0-2.4) H* 11/18/17 14:39 CK-MB (CK-2) Rel Index 3.8 11/18/17 14:39 NT-Pro-B Natriuret Pep [id number] pg/mL 11/18/17 14:39 Total Protein 6.3 g/dL (6.3-8.2) 11/22/17 04:16 Albumin 2.7 g/dL (3.5-5.0) L 11/22/17 04:16 Amylase 45 U/L (30-110) 11/18/17 14:39 Lipase 25 U/L (23-300) 11/18/17 14:39 Random Vancomycin 23.7 ug/mL 11/22/17 04:16 C. difficile (EIA) Intrp Negative (Negative) 11/18/17 18:56 Hepatitis A IgM Ab Non-Reactive (Non-Reactive) 11/18/17 20:00 Hep Bs Antigen Non-Reactive (Non-Reactive) 11/18/17 20:00 Hep B Core IgM Ab Non-Reactive (Non-Reactive) 11/18/17 20:00 Hep C IgG Ab Non-Reactive (Non-Reactive) 11/18/17 20:00 Influenza Type A RNA Not Detected (Not Detectd) 11/18/17 14:39 Influenza Type B (PCR) Not Detected (Not Detectd) 11/18/17 14:39 Blood Type A Positive 11/18/17 14:39 Blood Type Recheck No 11/18/17 14:39 Antibody Screen NEGATIVE 11/18/17 14:39 Spec Expiration Date 11/21/2017 - 8195 11/18/17 14:39 Microbiology 11/18/17 14:39 Blood Blood Culture - Preliminary No Growth after 96 hours 11/21/17 12:20 Blood Blood Culture - Preliminary No Growth after 24 hours 11/21/17 11:45 Blood Blood Culture Gram Stain - Preliminary 11/21/17 11:45 Blood Blood Culture - Final Assessment and Plan (1) Acute abdominal pain in right lower quadrant Narrative/Plan: 46-year-old male presents to Hospital because he became acutely ill with after he missed hemodialysis because he was not feeling well. Was admitted to the ICU for treatment of his refractory hypertension and with several sessions of hemodialysis is improved. Continues to have some ongoing nausea and no emesis for the last several hours is able to eat a bit of food. He is currently without high-grade fevers or chills. However is noted the blood cultures are showing evidence of some gram-positive cocci and antibiotic therapy with vancomycin and will continue. However the Zosyn can be discontinued. Follow-up cultures are in process. Concern will be to the right subclavian dialysis catheter as a potential port of infection. Goal will be salvage of this catheter Current Visit: No Status: Acute Code(s): R10.31 - RIGHT LOWER QUADRANT PAIN SNOMED Code(s): 644794479
[2017-11-22] MEDS: METOCLOPRAMIDE 5 MG/ML 2 ML VIAL IVP PRN (20:06)
[2017-11-22 21:01] LABS: Glucose,Whole Blood 97 mg/dL (75-99)
[2017-11-22] MEDS: INSULIN DETEMIR 100 UNIT/ML 10 ML VIAL SQ SCH (21:19)
--- NOTE | 2017-11-22 21:33 | PN ---
PROGRESS NOTE Patient is seen for followup for end-stage renal disease. He was dialyzed this morning. He is currently lying in bed. He denies any significant complaints. Blood pressure was 171/96. Patient is afebrile. Heart rate about 76 per minute. Examination of the heart S1, S2. Examination of the lungs bilateral breath sounds are heard. Decreased breath sounds at bases. Abdomen is soft, nontender. Examination lower extremities shows right forefoot currently wrapped. The patient has left BKA. PUBLIC INFORMATION OFFICER exam is grossly intact. LABS SHOW: Potassium 4.2, sodium 138, hemoglobin 9.0. ASSESSMENT: 1. End-stage renal disease, on hemodialysis on a Wednesday, Wednesday, Wednesday schedule. 2. Hypertension, uncontrolled. Blood pressure had been running high. This evening I see systolic of 140. We need to check orthostatic blood pressures as well since the patient likely has underlying orthostatic hypotension. He is currently on clonidine and Coreg along with Norvasc and Cozaar. The Coreg can be increased if the patient remains hypertensive. 3. History of seizures, maintained on Keppra. 4. Bacteremia with blood cultures growing gram-positive cocci. Patient has received vancomycin. He is being followed by ID. The repeat blood cultures are negative thus far. He does have an IJ catheter. We will follow up on the result of repeat cultures. MMODL / IJN: [id number] /
[2017-11-22] MEDS: ATORVASTATIN 80 MG TAB PO SCH (22:23)
[2017-11-22] MEDS: FAMOTIDINE 20 MG TAB PO SCH (22:24)
[2017-11-23] MEDS: LEVOTHYROXINE 25 MCG TAB PO SCH (06:26)
[2017-11-23 07:08] LABS: Glucose,Whole Blood 80 mg/dL (75-99)
[2017-11-23 08:41] LABS: Anisocytosis Slight; Basophils % (A) 0 %; Eosinophils # (A) 0.2 k/uL (0-0.7); Eosinophils % (A) 4 %; HCT 29.6 % (39.0-53.0); HGB 8.7 gm/dL (13.0-17.5); Hypochromasia Marked; Lymphocytes # (A) 0.8 k/uL (1.0-4.8); Lymphocytes % (A) 17 %; MCH 25.2 pg (25.0-35.0); MCHC 29.5 g/dL (31.0-37.0); MCV 85.6 fL (80.0-100.0); Mean Platelet Volume 7.6; Monocytes # (A) 0.3 k/uL (0-1.0); Monocytes % (A) 7 %; Neutrophils # (A) 3.2 k/uL (1.3-7.7); Neutrophils % (A) 69 %; Platelet Count 317 k/uL (150-450); Poikilocytosis Slight; RBC 3.45 m/uL (4.30-5.90); RDW 16.6 % (11.5-15.5); WBC 4.7 k/uL (3.8-10.6)
[2017-11-23 08:49] LABS: Albumin 2.8 g/dL (3.5-5.0); Calcium 7.9 mg/dL (8.4-10.2); Magnesium 1.9 mg/dL (1.6-2.3); Phosphorus 3.3 mg/dL (2.5-4.5); Total Bilirubin 0.6 mg/dL (0.2-1.3); Total Protein 6.4 g/dL (6.3-8.2)
[2017-11-23] MEDS: CALCIUM ACETATE 667 MG CAP PO SCH ×4 (09:02→17:32)
[2017-11-23] MEDS: amLODIPine 10 MG TAB PO SCH (09:03)
[2017-11-23] MEDS: CARVEDILOL 12.5 MG TAB PO SCH ×3 (09:03→17:32)
[2017-11-23] MEDS: cloNIDine HCL 0.1 MG TAB PO SCH ×4 (09:03→21:18)
[2017-11-23] MEDS: AMIODARONE 200 MG TAB PO SCH ×2 (09:03→21:17)
[2017-11-23] MEDS: acetaZOLAMIDE 250 MG TAB PO SCH ×2 (09:03→21:17)
[2017-11-23] MEDS: levETIRAcetam 500 MG TAB PO SCH ×2 (09:03→21:18)
[2017-11-23] MEDS: GABAPENTIN 300 MG CAP PO SCH ×2 (09:03→21:17)
[2017-11-23] MEDS: SODIUM BICARBONATE TAB 650 MG TAB PO SCH ×2 (09:04→21:17)
[2017-11-23] MEDS: SEVELAMER 800 MG TAB PO SCH ×5 (09:04→21:17)
[2017-11-23] MEDS: LOSARTAN 50 MG TAB PO SCH ×2 (09:04→21:18)
[2017-11-23] MEDS: THIAMINE 100 MG TAB PO SCH (09:04)
[2017-11-23] MEDS: ONDANSETRON 4 MG/2 ML VIAL IVP PRN (09:37)
[2017-11-23] MEDS: IPRATROPIUM-ALBUTEROL 3 ML NEB INHALATION SCH ×4 (10:02→20:12)
[2017-11-23] MEDS ORDERED: VANCOMYCIN 1,500 MG in SODIUM CHLORIDE 0.9% 250 ML IVPB ONE (12:00)
[2017-11-23 12:05] LABS: Glucose,Whole Blood 98 mg/dL (75-99)
--- NOTE | 2017-11-23 12:48 | P.PN ---
Subjective This is a 46-year-old white male well-known to currently myself. He is very noncompliant. He missed dialysis will be told not to come. He was feeling nauseated and short of breath. He presented emergency room via EMS for this. He was found to be volume overloaded. He's also been having fever. He is in the intensive care unit for further management. Nephrology, critical care , and infectious disease are following. He denies any depression at this time. 11/23/2017: Patient has been transferred to the medical floor.He reports nausea and vomiting remained improved. Uremia is improved with hemodialysis. Blood culture was positive for coag-negative Staphylococcus and is currently on vancomycin. Zosyn's been discontinued. This concerns him is from the subclavian dialysis catheter. Objective - Vital Signs Vital signs: Vital Signs Temp 97.2 F L 11/23/17 06:00 Pulse 76 11/23/17 11:51 Resp 16 11/23/17 06:00 BP 162/90 11/23/17 06:00 Pulse Ox 96 11/23/17 06:00 Intake & Output 11/22/17 11/23/17 11/23/17 18:59 06:59 18:59 Intake Total 30 250 Output Total 1 Balance 29 250 Intake: IV 30 0.9 NaCl- for a carrier 30 Oral 250 Output: Urine 0 Stool 1 Other: Voiding Method Urinal Urinal Urinal # Voids 1 2 # Bowel Movements 0 1 - Exam General: The patient is awake and alert, in no distress, he is currently undergoing Dialysis Neck: The neck is supple, there is no thyromegaly, lymphadenopathy, tenderness or JVD. Cardiovascular: S1S2 is normal, There is a regular rate and rhythm. No , rub or gallop is appreciated.systolicmurmur over the right st Respiratory: Lungs are slightly coarseto auscultation bilaterally, respirations are non-labored, breath sounds are equal. Gastrointestinal: Soft, non-distended, non-tender abdomen without masses or organomegaly noted. There is no rebound or guarding present. Bowel sounds are unremarkable. 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 Coordination appears grossly intact. Speech is normal. Skin: Skin is warm and dry and no rashes or lesions are noted except as listed above. - Labs CBC & Chem 7: 11/23/17 07:48 11/23/17 07:48 Labs: Abnormal Lab Results - Last 24 Hours (Table) 11/23/17 11/23/17 Range/Units 07:48 07:48 RBC 3.45 L (4.30-5.90) m/uL Hgb 8.7 L (13.0-17.5) gm/dL Hct 29.6 L (39.0-53.0) % MCHC 29.5 L (31.0-37.0) g/dL RDW 16.6 H (11.5-15.5) % Lymphocytes # 0.8 L (1.0-4.8) k/uL Chloride 97 L (98-107) mmol/L Creatinine 4.32 H (0.66-1.25) mg/dL Calcium 7.9 L (8.4-10.2) mg/dL Alkaline Phosphatase 151 H (38-126) U/L Albumin 2.8 L (3.5-5.0) g/dL Microbiology - Last 24 Hours (Table) 11/21/17 11:45 Blood Culture Gram Stain - Preliminary Blood Blood Culture - Preliminary Coagulase Negative Staph 11/18/17 14:39 Blood Culture - Preliminary Blood No Growth after 96 hours 11/21/17 12:20 Blood Culture - Preliminary Blood No Growth after 24 hours Assessment and Plan Plan: Assessment Sepsis possibly from catheter site, cultures positive for Coag negative staph acute fluid overload, secondary to missed dialysis , resolved acute hypertensive emergency, resolved chronic renal failure currently on hemodialysis 3 times a week [facility] and the patient missed his dialysis on Wednesday coronary artery disease with previous NH insulin-dependent diabetes with diabetic retinopathy, diabetic neuropathy peripheral vascular disease with below-knee amputation on the left and midfoot amputation of the right foot Soria grade 3 diabetic ulcer right pedal foot hyperlipidemia seizure disorder history of a left upper extremity DVT hypothyroidism anemia of chronic disease compression fracture of the vertebral spine Plan Wait for the recommendations from infectious disease, nephrology, and pulmonology.continue IV antibiotics and wound care per ID. contiue Dialysis per Nephrology. work on placement after D/C
--- NOTE | 2017-11-23 13:04 | XR ---
EXAMINATION TYPE: XR chest 1V portable DATE OF EXAM: 11/23/2017 COMPARISON: Prior chest x-ray 11/22/2017 HISTORY: Shortness of breath TECHNIQUE: Single frontal view of the chest is obtained. FINDINGS: There is some improvement in aeration as compared to prior exam. Lung volumes are lower. C entral vascularity and interstitium are increased. No evident pneumothorax or sizable. Heart remains enlarged. IMPRESSION: Correlate for volume overload, pulmonary venous hypertension and interstitial edema. The re is some improved aeration as compared to prior exam.
--- NOTE | 2017-11-23 14:26 | P.PN ---
Subjective Progress Note Date: 11/23/17 Principal diagnosis: Acute fluid overload secondary to missed dialysis and dialysis-dependent renal failure, acute hypertensive emergency, improved This is a 46-year-old male patient was hospitalized today and was brought into the intensive care unit because of missing dialysis, fluid overload, hypertension, generalized weakness and shortness of breath. He apparently missed dialysis on Wednesday secondary to fatigue and generalized weakness. He had a mild cough and no chest pain. According to the home health care, the patient's blood pressure was significantly elevated and the pulse ox was also low. He had some emesis and diarrhea over the past 48 hours. No chest pain. No fever or chills. Chest x-ray was done in the emergency department and the patient had some cardiomegaly and pulmonary vessel congestion. Right hemidiaphragm is elevated and the patient has a temporary dialysis catheter in the right IJ. The patient had a temperature 100.8 in the emergency department. Initial blood pressure was 203 of 120 with a pulse ox of 95% on 5 L of oxygen by nasal cannula. Based on this, the patient was started on nitroglycerin drip. The patient will be having a stat dialysis and nephrology has been informed of these. Blood cultures were sent and the patient was started also on broad-spectrum antibiotics and the patient was given a dose of vancomycin in the emergency department in addition to a dose of IV Rocephin. This patient has multiple medical problems and comorbidities. He has diabetes mellitus type 2 with multiple complications related to diabetes including end- stage renal disease. He was initially started on peritoneal dialysis to which she subsequently failed and he was recently switched to hemodialysis. He has also history of hypertension, hyperlipidemia, acid reflux, coronary artery disease with previous [facility], hypothyroidism and seizure disorder. He has had multiple hospitalizations in the past. His peritoneal dialysis has been removed and the patient is currently being dialyzed to a temporary dialysis catheter. He has had previous below knee amputation for severe peripheral vascular disease. He has a previous history of MRSA in the past. He has had cataracts and previous eye surgery/and laser eye surgery for diabetic retinopathy. He has also previous history of DVT. He has seen also Dr. Sy regarding chronic lower extremities ulceration. Other medical problems are previous history of TIA, diabetic gastroparesis, peripheral neuropathy, chronic anemia and previous history of compression fracture of the vertebral spine. His DVT was related to a previous IV line in the upper extremity on the left. Patient was reevaluated today on 11/22/2017, he is presently receiving hemodialysis, planning to remove about 4 L of fluids today. Patient is in bed, comfortable, denies any shortness of breath cough or wheezing, no nausea no vomiting no abdominal pain. Blood pressure is a bit elevated, however the patient is off kleviprex drip. And he is on oral medications for blood pressure control. Patient remains on a combination of Zosyn and vancomycin, cultures are negative so far. And C. diff screen is negative. Blood cultures remain negative so far since admission. Patient was febrile on admission, and there was a concern about possible underlying pulmonary infection. Chest x-ray is consistent with pulmonary edema, almost impossible to rule out underlying pneumonitis, and I feel it is less likely at this point. On 11/23/2017 patient seen in follow-up on medical surgical floor. Denies any distress, denies any chest pain denies any dyspnea. Is currently on 3 L per nasal cannula, with a pulse ox of 96%. Afebrile, vital signs are stable. On sounds are positive for coarse bibasilar crackles, and the chest x-ray shows residual volume overload, pulmonary venous hypertension and interstitial edema, improved from prior exams. Patient had hemodialysis yesterday, and is planned for another hemodialysis tomorrow. Lab work today shows to be VC of 4.7, hemoglobin of 8.7, sodium is 137, potassium is 4.0, chloride is 97, BUN is 14, creatinine is 4.32, renal profile is improving. Blood pressure is controlled, with systolic in the 140s to 160s millimeters of mercury, and diastolic blood pressure from 70s to 90s. Respirations are even and nonlabored, no acute events overnight. Continue current plan of treatment, blood culture from 2017 showed coagulase-negative staph, follow blood cultures are negative. ID service is following, and patient is receiving vancomycin. Objective - Vital Signs Vital signs: Vital Signs Temp 97.2 F L 11/23/17 06:00 Pulse 76 11/23/17 11:51 Resp 16 11/23/17 06:00 BP 162/90 11/23/17 06:00 Pulse Ox 96 11/23/17 06:00 Intake & Output 05/14/18 05/15/18 05/15/18 18:59 06:59 18:59 Intake Total 30 250 Output Total 1 Balance 29 250 Intake: IV 30 0.9 NaCl- for a carrier 30 Oral 250 Output: Urine 0 Stool 1 Other: Voiding Method Urinal Urinal Urinal # Voids 1 2 # Bowel Movements 0 1 - Exam Gen. appearance revealed a 46-year-old white male, in no distress, Head exam was generally normal. There was no scleral icterus or corneal arcus. Mucous membranes were moist. Neck was supple and without jugular venous distension, thyromegaly, or carotid bruits. Carotids were easily palpable bilaterally. There was no adenopathy. The patient has a permacath in his right IJ and exit site is clean Lung sounds, coarse crackles at the bases, no rhonchi, no wheezes. Cardiac exam revealed the PMI to be normally situated and sized. The rhythm was regular and no extrasystoles were noted during several minutes of auscultation. The first and second heart sounds were normal and physiologic splitting of the second heart sound was noted. There were no murmurs, rubs, clicks, or gallops. Abdominal exam revealed normal bowel sounds. The abdomen was soft, non-tender, and without masses, organomegaly, or appreciable enlargement of the abdominal aorta. Extremities reveal a below-knee amputation on the left, chronic ulceration on the right, diminished pulse on the right, no cyanosis or clubbing. The patient also has partial right foot amputation. Neurologically awake and alert and following commands and answering questions appropriately Psychiatric: Normal mood affect and mental status examination. Lymphatics: No lymphadenopathy. - Labs CBC & Chem 7: 11/23/17 07:48 11/23/17 07:48 Labs: Abnormal Lab Results - Last 24 Hours (Table) 11/23/17 11/23/17 Range/Units 07:48 07:48 RBC 3.45 L (4.30-5.90) m/uL Hgb 8.7 L (13.0-17.5) gm/dL Hct 29.6 L (39.0-53.0) % MCHC 29.5 L (31.0-37.0) g/dL RDW 16.6 H (11.5-15.5) % Lymphocytes # 0.8 L (1.0-4.8) k/uL Chloride 97 L (98-107) mmol/L Creatinine 4.32 H (0.66-1.25) mg/dL Calcium 7.9 L (8.4-10.2) mg/dL Alkaline Phosphatase 151 H (38-126) U/L Albumin 2.8 L (3.5-5.0) g/dL Microbiology - Last 24 Hours (Table) 11/21/17 11:45 Blood Culture Gram Stain - Preliminary Blood Blood Culture - Preliminary Coagulase Negative Staph 11/18/17 14:39 Blood Culture - Preliminary Blood No Growth after 96 hours 11/21/17 12:20 Blood Culture - Preliminary Blood No Growth after 24 hours Assessment and Plan Plan: Assessment: 1 acute dyspnea/fluid overload, secondary to missed dialysis in the setting of dialysis-dependent renal failure. The patient underwent 3 sessions of hemodialysis. Patient is gradually improving. Chest x-ray continues to show pulmonary edema, and fluid overload, strongly doubt underlying pneumoniitis. 2 acute hypertensive emergency, likely secondary to missed dialysis in addition to a background hypertensive disorder. Blood pressure is improving but still requiring multiple oral meds for blood pressure control, 3 dialysis-dependent renal failure currently on hemodialysis 3 times a week MWF and the patient missed his dialysis on Wednesday 4 preserved LV function with a component of hypertensive heart disease based on most his echocardiogram 5 coronary artery disease with previous [facility] 6 acute febrile illness, being investigated, remains on antibiotics empirically , antibiotics are handled by infectious disease on the case. 7 diabetic retinopathy 8 diabetic neuropathy 9 peripheral vascular disease with below-knee amputation on the left and partial dictation of the right foot along with chronic ulceration of the right lower extremity 10 previous MRSA soft tissue infection 11 fever, rule out underlying infection/sepsis, blood culture been sent and the patient was given a dose of Rocephin and vancomycin as an empiric antibiotic coverage 12 hyperlipidemia 13 seizure disorder 14 previous history of a left upper extremity DVT, line related 15 hypothyroidism 16 diabetic gastroparesis 17 chronic anemia 18 compression fracture of the vertebral spine Plan: Wean FiO2, patient is planned for hemodialysis tomorrow. Antibiotics per ID service, so far the follow blood cultures are negative. Afebrile, no fever or chills. Improving, blood pressures under better control, repeat chest x-ray tomorrow after hemodialysis. I performed a history & physical examination of the patient and discussed their management with my nurse practitioner, Mouna Shah. I reviewed the nurse practitioner's note and agree with the documented findings and plan of care. Lung sounds are positive for coarse rales. The findings and the impression was discussed with the patient. I attest to the documentation by the nurse practitioner. Time with Patient: Less than 30
--- NOTE | 2017-11-23 16:34 | PN ---
PROGRESS NOTE Patient is seen for followup for end-stage renal disease. The patient is maintained on a Wednesday, Wednesday, Wednesday schedule. He was admitted with uncontrolled hypertension. There was volume overload since the initial admission. The patient was found to have bacteremia with blood cultures growing Gram-positive cocci. He is maintained on antibiotics and being followed by ID. He does have an IJ PermCath. On examination today, blood pressure is 162/90, later on today it was 148/78, heart rate 76 per minute. Patient is afebrile. Examination of the heart S1, S2. Examination of the lungs bilateral breath sounds are heard. Abdomen is soft, nontender. Exam of the lower extremities shows the right foot is currently dressed. The patient has left BKA. 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 LABS: Show sodium 137, potassium 4.0, hemoglobin 8.7 g/dL, magnesium 1.9. ASSESSMENT: 1. End-stage renal disease on hemodialysis on a Wednesday, Wednesday, Wednesday schedule. We will arrange for hemodialysis in a.m. 2. Bacteremia being followed by ID, status post vancomycin. Repeat cultures are negative thus far. 3. Diabetic foot ulcer on the right foot with previous forefoot amputation. 4. Coronary artery disease with previous history of DC. 5. Hypertension, currently much better controlled. PLAN: Hemodialysis in a.m. Continue antibiotics per ID. So far the blood cultures are negative. Initial blood cultures are now identifying the organism of coagulase negative Staph. MMODL / IJN: [id number] /
[2017-11-23] MEDS: TAMSULOSIN 0.4 MG CAP.ER.24H PO SCH ×2 (17:30→17:32)
[2017-11-23 17:39] LABS: Glucose,Whole Blood 117 mg/dL (75-99)
[2017-11-23] MEDS: traMADol 50 MG TAB PO PRN (19:42)
[2017-11-23] MEDS ORDERED: SODIUM CHLORIDE 0.65% NASAL SPRAY 44 ML BTL NASAL PRN (20:38)
[2017-11-23 20:48] LABS: Glucose,Whole Blood 141 mg/dL (75-99)
[2017-11-23] MEDS: ATORVASTATIN 80 MG TAB PO SCH (21:17)
[2017-11-23] MEDS: FAMOTIDINE 20 MG TAB PO SCH (21:17)
[2017-11-23] MEDS: INSULIN DETEMIR 100 UNIT/ML 10 ML VIAL SQ SCH ×2 (21:22→21:26)
--- NOTE | 2017-11-23 22:26 | P.PN ---
Subjective Progress Note Date: 11/23/17 46-year-old male presents to Hospital after missing hemodialysis and became considerably worse with nausea and emesis and weakness in counseling was provided the hospital. Concerns underlying infection and was part since it care unit because of his extreme hypertension and need for urgent hemodialysis. The patient is known to the service from his recent hospitalizations were he had difficulties after. He dialysis catheter was placed. Originally did well but then was having difficulties at the site and there was concerns to peritonitis. The catheter was removed after treated for peritonitis and reimplanted. She with her after malfunctioned and eventually had to be withdrawn. Now receiving his dialysis. He will dialysis. We'll no longer be attempted at peritoneal dialysis. The patient is feeling somewhat better since admission still has some residual nausea and intermittent emesis. Uremia is improving after his several sessions of hemodialysis. 11/23/2017 patient is feeling better today. Nausea and emesis improved. Ingested some food this family brought in, without nausea or emesis. Apparently of dialysis in the morning and then discharged home. Objective - Vital Signs Vital signs: Vital Signs Temp 97.4 F L 11/23/17 14:24 Pulse 71 11/23/17 14:24 Resp 16 11/23/17 14:24 BP 148/78 11/23/17 14:24 Pulse Ox 100 11/23/17 14:24 Intake & Output 11/23/17 11/23/17 11/24/17 06:59 18:59 06:59 Intake Total 840 Balance 840 Intake: Oral 840 Other: Voiding Method Urinal Urinal # Voids 2 0 # Bowel Movements 1 - Exam 46-year-old male not feeling well tonight because of nausea HEENT: Anicteric conjunctiva are pink and moist nasal mucosa grossly intact without significant lesions, there is no thrush. Neck: The neck is supple without significant lymphadenopathy or thyromegaly. Lungs: Good bilateral air entry without significant crackles or wheezing. There is no significant bronchial sounds. There is no egophony or dullness. Heart: Regular rate and rhythm with an audible S1-S2, no S3 no S4. There is no significant murmur click or rub, PMI was nondisplaced. Abdomen: Positive bowel sounds soft and minimally tender without palpable masses or organomegaly. The distention is generally resolved in the peritoneal dialysis catheter has been removed Extremities: The upper extremities have excellent pulses they are symmetric, no significant petechiae or telangiectasia. No splinter hemorrhages were noted. Left lower extremity without difficulty at the residual limb. Ulceration to the right foot plantar as per nursing documentation Neuro: Awake alert oriented to person place and time. There are no acute new gross focal sensory motor deficits. - Labs CBC & Chem 7: 11/23/17 07:48 11/23/17 07:48 Labs: Abnormal Lab Results - Last 24 Hours (Table) 11/23/17 11/23/17 11/23/17 Range/Units 07:48 07:48 17:37 RBC 3.45 L (4.30-5.90) m/uL Hgb 8.7 L (13.0-17.5) gm/dL Hct 29.6 L (39.0-53.0) % MCHC 29.5 L (31.0-37.0) g/dL RDW 16.6 H (11.5-15.5) % Lymphocytes # 0.8 L (1.0-4.8) k/uL Chloride 97 L (98-107) mmol/L Creatinine 4.32 H (0.66-1.25) mg/dL POC Glucose (mg/dL) 117 H (75-99) mg/dL Calcium 7.9 L (8.4-10.2) mg/dL Alkaline Phosphatase 151 H (38-126) U/L Albumin 2.8 L (3.5-5.0) g/dL 11/23/17 Range/Units 20:47 RBC (4.30-5.90) m/uL Hgb (13.0-17.5) gm/dL Hct (39.0-53.0) % MCHC (31.0-37.0) g/dL RDW (11.5-15.5) % Lymphocytes # (1.0-4.8) k/uL Chloride (98-107) mmol/L Creatinine (0.66-1.25) mg/dL POC Glucose (mg/dL) 141 H (75-99) mg/dL Calcium (8.4-10.2) mg/dL Alkaline Phosphatase (38-126) U/L Albumin (3.5-5.0) g/dL Microbiology - Last 24 Hours (Table) 11/21/17 11:45 Blood Culture Gram Stain - Final Blood Blood Culture - Final Coagulase Negative Staph 11/18/17 14:39 Blood Culture - Preliminary Blood No Growth after 120 hours 11/21/17 12:20 Blood Culture - Preliminary Blood No Growth after 48 hours Laboratory Results WBC 4.7 k/uL (3.8-10.6) 11/23/17 07:48 RBC 3.45 m/uL (4.30-5.90) L 11/23/17 07:48 Hgb 8.7 gm/dL (13.0-17.5) L 11/23/17 07:48 Hct 29.6 % (39.0-53.0) L 11/23/17 07:48 MCV 85.6 fL (80.0-100.0) 11/23/17 07:48 MCH 25.2 pg (25.0-35.0) 11/23/17 07:48 MCHC 29.5 g/dL (31.0-37.0) L 11/23/17 07:48 RDW 16.6 % (11.5-15.5) H 11/23/17 07:48 Plt Count 317 k/uL (150-450) 11/23/17 07:48 Neutrophils % 69 % 11/23/17 07:48 Lymphocytes % 17 % 11/23/17 07:48 Monocytes % 7 % 11/23/17 07:48 Eosinophils % 4 % 11/23/17 07:48 Basophils % 0 % 11/23/17 07:48 Neutrophils # 3.2 k/uL (1.3-7.7) 11/23/17 07:48 Lymphocytes # 0.8 k/uL (1.0-4.8) L 11/23/17 07:48 Monocytes # 0.3 k/uL (0-1.0) 11/23/17 07:48 Eosinophils # 0.2 k/uL (0-0.7) 11/23/17 07:48 Basophils # 0.0 k/uL (0-0.2) 11/23/17 07:48 Hypochromasia Marked 11/23/17 07:48 Poikilocytosis Slight 11/23/17 07:48 Anisocytosis Slight 11/23/17 07:48 PT 10.4 sec (9.0-12.0) 11/18/17 14:39 INR 1.1 (<1.2) 11/18/17 14:39 APTT 25.6 sec (22.0-30.0) 11/18/17 14:39 Sodium 137 mmol/L (137-145) 11/23/17 07:48 Potassium 4.0 mmol/L (3.5-5.1) 11/23/17 07:48 Chloride 97 mmol/L (98-107) L 11/23/17 07:48 Carbon Dioxide 23 mmol/L (22-30) 11/23/17 07:48 Anion Gap 17 mmol/L 11/23/17 07:48 BUN 14 mg/dL (9-20) 11/23/17 07:48 Creatinine 4.32 mg/dL (0.66-1.25) H 11/23/17 07:48 Est GFR (CKD-EPI)AfAm 18 (>60 ml/min/1.73 sqM) 11/23/17 07:48 Est GFR (CKD-EPI)NonAf 15 (>60 ml/min/1.73 sqM) 11/23/17 07:48 Glucose 75 mg/dL (74-99) 11/23/17 07:48 POC Glucose (mg/dL) 141 mg/dL (75-99) H 11/23/17 20:47 POC Glu [employer] ID Lottie Lamb 11/23/17 20:[address] Glu mg/dL 134 11/19/17 05:06 Hemoglobin A1c 6.3 % (4.0-6.0) H 11/19/17 05:06 Plasma Lactic Acid Massimo 0.9 mmol/L (0.7-2.0) 11/18/17 14:39 Calcium 7.9 mg/dL (8.4-10.2) L 11/23/17 07:48 Phosphorus 3.3 mg/dL (2.5-4.5) 11/23/17 07:48 Magnesium 1.9 mg/dL (1.6-2.3) 11/23/17 07:48 Iron 20 ug/dL (65-175) L 11/20/17 04:33 TIBC 166 ug/dL (228-460) L 11/20/17 04:33 Iron Saturation 12.05 (15.00-50.00) L 11/20/17 04:33 Ferritin 6790.0 ng/mL (22.0-322.0) H 11/20/17 04:33 Total Bilirubin 0.6 mg/dL (0.2-1.3) 11/23/17 07:48 AST 32 U/L (17-59) 11/23/17 07:48 ALT 41 U/L (21-72) 11/23/17 07:48 Alkaline Phosphatase 151 U/L (38-126) H 11/23/17 07:48 Total Creatine Kinase 125 U/L (55-170) 11/18/17 14:39 CK-MB (CK-2) 4.8 ng/mL (0.0-2.4) H* 11/18/17 14:39 CK-MB (CK-2) Rel Index 3.8 11/18/17 14:39 NT-Pro-B Natriuret Pep 830024 pg/mL 11/18/17 14:39 Total Protein 6.4 g/dL (6.3-8.2) 11/23/17 07:48 Albumin 2.8 g/dL (3.5-5.0) L 11/23/17 07:48 Amylase 45 U/L (30-110) 11/18/17 14:39 Lipase 25 U/L (23-300) 11/18/17 14:39 Random Vancomycin 17.0 ug/mL 11/23/17 07:48 C. difficile (EIA) Intrp Negative (Negative) 11/18/17 18:56 Hepatitis A IgM Ab Non-Reactive (Non-Reactive) 11/18/17 20:00 Hep Bs Antigen Non-Reactive (Non-Reactive) 11/18/17 20:00 Hep B Core IgM Ab Non-Reactive (Non-Reactive) 11/18/17 20:00 Hep C IgG Ab Non-Reactive (Non-Reactive) 11/18/17 20:00 Influenza Type A RNA Not Detected (Not Detectd) 11/18/17 14:39 Influenza Type B (PCR) Not Detected (Not Detectd) 11/18/17 14:39 Blood Type A Positive 11/18/17 14:39 Blood Type Recheck No 11/18/17 14:39 Antibody Screen NEGATIVE 11/18/17 14:39 Spec Expiration Date 11/21/2017 - 7205 11/18/17 14:39 Microbiology 11/21/17 11:45 Blood Blood Culture Gram Stain - Final 11/21/17 11:45 Blood Blood Culture - Final Coagulase Negative Staph 11/18/17 14:39 Blood Blood Culture - Preliminary No Growth after 120 hours 11/21/17 12:20 Blood Blood Culture - Preliminary No Growth after 48 hours 11/21/17 11:45 Blood Blood Culture - Final Assessment and Plan (1) Acute abdominal pain in right lower quadrant Narrative/Plan: 46-year-old male presents to Hospital because he became acutely ill with after he missed hemodialysis because he was not feeling well. Was admitted to the ICU for treatment of his refractory hypertension and with several sessions of hemodialysis is improved. Continues to have some ongoing nausea and no emesis for the last several hours is able to eat a bit of food. He is currently without high-grade fevers or chills. However is noted the blood cultures are showing evidence of some gram-positive cocci and antibiotic therapy with vancomycin and will continue. However the Zosyn can be discontinued. Follow-up cultures are in process. Concern will be to the right subclavian dialysis catheter as a potential port of infection. Goal will be salvage of this catheter 11/23/2017 Fortunately at this time the blood cultures revealing also coagulase- negative staph a follow-up blood culture is negative. Likely contamination would not need ongoing long-term antibiotic therapy. We'll follow the dialysis center. Follow-up in the wound healing center to complete the treatment for his diabetic foot infection. Current Visit: No Status: Acute Code(s): R10.31 - RIGHT LOWER QUADRANT PAIN SNOMED Code(s): 384812807
[2017-11-24] MEDS: LEVOTHYROXINE 25 MCG TAB PO SCH (06:21)
[2017-11-24 07:22] LABS: Glucose,Whole Blood 119 mg/dL (75-99)
[2017-11-24 07:38] VITALS: RESP 16
[2017-11-24 08:13] LABS: Anisocytosis Slight; Basophils % (A) 0 %; Eosinophils # (A) 0.2 k/uL (0-0.7); Eosinophils % (A) 4 %; HCT 30.4 % (39.0-53.0); HGB 9.4 gm/dL (13.0-17.5); Hypochromasia Marked; Lymphocytes % (A) 22 %; MCH 25.6 pg (25.0-35.0); MCV 82.5 fL (80.0-100.0); Mean Platelet Volume 6.5; Monocytes # (A) 0.4 k/uL (0-1.0); Monocytes % (A) 8 %; Neutrophils % (A) 64 %; Platelet Count 328 k/uL (150-450); Poikilocytosis Slight; RBC 3.69 m/uL (4.30-5.90); RDW 16.2 % (11.5-15.5); WBC 4.7 k/uL (3.8-10.6)
[2017-11-24] MEDS: IPRATROPIUM-ALBUTEROL 3 ML NEB INHALATION SCH ×3 (08:47→15:49)
[2017-11-24 09:45] LABS: Albumin 2.8 g/dL (3.5-5.0); Calcium 8.2 mg/dL (8.4-10.2); Magnesium 1.9 mg/dL (1.6-2.3); Phosphorus 2.9 mg/dL (2.5-4.5); Potassium 3.8 mmol/L (3.5-5.1); Total Bilirubin 0.5 mg/dL (0.2-1.3); Total Protein 6.4 g/dL (6.3-8.2)
--- NOTE | 2017-11-24 11:27 | P.PN ---
Subjective Patient is seen in follow-up for end-stage renal disease. He is maintained on hemodialysis on a Wednesday schedule. He has a permacath for his access. Patient presented with fluid overload, which has improved with HD. He is currently resting in bed. Blood pressure is better controlled. He denies any nausea vomiting. Tolerating oral intake. Vital signs are stable. General: The patient appeared well nourished and normally developed. HEENT: Head exam is unremarkable. Neck is without jugular venous distension. LUNGS: Lungs are clear to auscultation and percussion. Breath sounds decreased. HEART: Rate and Rhythm are regular. First and second heart sounds normal. No murmurs, rubs or gallops. ABDOMEN: Abdominal exam reveals normal bowel sounds. Non-tender and non- distended. No evidence of peritonitis. EXTREMITITES: No clubbing, cyanosis, or edema. Left BKA noted. Objective - Vital Signs Vital signs: Vital Signs Temp 97.4 F L 11/24/17 07:00 Pulse 76 11/24/17 09:00 Resp 16 11/24/17 07:00 BP 157/91 11/24/17 07:00 Pulse Ox 98 11/24/17 07:00 Intake & Output 11/23/17 11/24/17 11/24/17 18:59 06:59 18:59 Intake Total 840 Balance 840 Weight 79.5 kg Intake: Oral 840 Other: Voiding Method Urinal Urinal # Voids 0 0 # Bowel Movements 1 - Labs CBC & Chem 7: 11/24/17 07:48 11/24/17 07:48 Labs: Abnormal Lab Results - Last 24 Hours (Table) 11/23/17 11/23/17 11/24/17 Range/Units 17:37 20:47 07:15 RBC (4.30-5.90) m/uL Hgb (13.0-17.5) gm/dL Hct (39.0-53.0) % RDW (11.5-15.5) % Sodium (137-145) mmol/L Creatinine (0.66-1.25) mg/dL Glucose (74-99) mg/dL POC Glucose (mg/dL) 117 H 141 H 119 H (75-99) mg/dL Calcium (8.4-10.2) mg/dL Alkaline Phosphatase (38-126) U/L Albumin (3.5-5.0) g/dL 11/24/17 11/24/17 Range/Units 07:48 07:48 RBC 3.69 L (4.30-5.90) m/uL Hgb 9.4 L (13.0-17.5) gm/dL Hct 30.4 L (39.0-53.0) % RDW 16.2 H (11.5-15.5) % Sodium 135 L (137-145) mmol/L Creatinine 5.91 H* (0.66-1.25) mg/dL Glucose 119 H (74-99) mg/dL POC Glucose (mg/dL) (75-99) mg/dL Calcium 8.2 L (8.4-10.2) mg/dL Alkaline Phosphatase 141 H (38-126) U/L Albumin 2.8 L (3.5-5.0) g/dL Microbiology - Last 24 Hours (Table) 11/21/17 11:45 Blood Culture Gram Stain - Final Blood Blood Culture - Final Coagulase Negative Staph 11/18/17 14:39 Blood Culture - Preliminary Blood No Growth after 120 hours 11/21/17 12:20 Blood Culture - Preliminary Blood No Growth after 48 hours Assessment and Plan Plan: Assessment: 1. End-stage renal disease maintained on hemodialysis on a Wednesday schedule via permacath. 2. Volume overload. Improved with dialysis. 3. Anemia of chronic kidney disease maintained on Aranesp. 4. Chronic kidney disease mineral bone disease maintained on PhosLo and Renvela with meals. 5. Hypertension with chronic kidney disease. Better controlled. 6. Nausea and vomiting likely related to underlying diabetic gastroparesis. Improved. 7. Peripheral vascular disease status post left below-knee amputation. 8. Insulin-dependent diabetes mellitus. 9. Fever, resolved. Permacath site appears clean with no obvious drainage or erythema. Repeat cultures negative. Infectious disease following. Plan: HD today. Maintain antiemetics. Stable to be discharged home from nephrology standpoint. I advised them to follow a low-salt and 50-60 ounces fluid restricted diet.
[2017-11-24 11:30] LABS: Glucose,Whole Blood 137 mg/dL (75-99)
--- NOTE | 2017-11-24 11:50 | P.PN ---
Subjective Progress Note Date: 11/24/17 Principal diagnosis: Acute fluid overload secondary to missed dialysis and dialysis-dependent renal failure, acute hypertensive emergency, improved This is a 46-year-old male patient was hospitalized today and was brought into the intensive care unit because of missing dialysis, fluid overload, hypertension, generalized weakness and shortness of breath. He apparently missed dialysis on Wednesday secondary to fatigue and generalized weakness. He had a mild cough and no chest pain. According to the home health care, the patient's blood pressure was significantly elevated and the pulse ox was also low. He had some emesis and diarrhea over the past 48 hours. No chest pain. No fever or chills. Chest x-ray was done in the emergency department and the patient had some cardiomegaly and pulmonary vessel congestion. Right hemidiaphragm is elevated and the patient has a temporary dialysis catheter in the right IJ. The patient had a temperature 100.8 in the emergency department. Initial blood pressure was 203 of 120 with a pulse ox of 95% on 5 L of oxygen by nasal cannula. Based on this, the patient was started on nitroglycerin drip. The patient will be having a stat dialysis and nephrology has been informed of these. Blood cultures were sent and the patient was started also on broad-spectrum antibiotics and the patient was given a dose of vancomycin in the emergency department in addition to a dose of IV Rocephin. This patient has multiple medical problems and comorbidities. He has diabetes mellitus type 2 with multiple complications related to diabetes including end- stage renal disease. He was initially started on peritoneal dialysis to which she subsequently failed and he was recently switched to hemodialysis. He has also history of hypertension, hyperlipidemia, acid reflux, coronary artery disease with previous TN, hypothyroidism and seizure disorder. He has had multiple hospitalizations in the past. His peritoneal dialysis has been removed and the patient is currently being dialyzed to a temporary dialysis catheter. He has had previous below knee amputation for severe peripheral vascular disease. He has a previous history of MRSA in the past. He has had cataracts and previous eye surgery/and laser eye surgery for diabetic retinopathy. He has also previous history of DVT. He has seen also Dr. Sy regarding chronic lower extremities ulceration. Other medical problems are previous history of TIA, diabetic gastroparesis, peripheral neuropathy, chronic anemia and previous history of compression fracture of the vertebral spine. His DVT was related to a previous IV line in the upper extremity on the left. Patient was reevaluated today on 11/22/2017, he is presently receiving hemodialysis, planning to remove about 4 L of fluids today. Patient is in bed, comfortable, denies any shortness of breath cough or wheezing, no nausea no vomiting no abdominal pain. Blood pressure is a bit elevated, however the patient is off kleviprex drip. And he is on oral medications for blood pressure control. Patient remains on a combination of Zosyn and vancomycin, cultures are negative so far. And C. diff screen is negative. Blood cultures remain negative so far since admission. Patient was febrile on admission, and there was a concern about possible underlying pulmonary infection. Chest x-ray is consistent with pulmonary edema, almost impossible to rule out underlying pneumonitis, and I feel it is less likely at this point. On 11/23/2017 patient seen in follow-up on medical surgical floor. Denies any distress, denies any chest pain denies any dyspnea. Is currently on 3 L per nasal cannula, with a pulse ox of 96%. Afebrile, vital signs are stable. On sounds are positive for coarse bibasilar crackles, and the chest x-ray shows residual volume overload, pulmonary venous hypertension and interstitial edema, improved from prior exams. Patient had hemodialysis yesterday, and is planned for another hemodialysis tomorrow. Lab work today shows to be VC of 4.7, hemoglobin of 8.7, sodium is 137, potassium is 4.0, chloride is 97, BUN is 14, creatinine is 4.32, renal profile is improving. Blood pressure is controlled, with systolic in the 140s to 160s millimeters of mercury, and diastolic blood pressure from 70s to 90s. Respirations are even and nonlabored, no acute events overnight. Continue current plan of treatment, blood culture from 2017 showed coagulase-negative staph, follow blood cultures are negative. ID service is following, and patient is receiving vancomycin. On 11/24/2017 patient seen in follow-up. He is dressed, sitting on the edge of the bed, awake, alert, is less fatigued on today's exam. Followup blood cultures are negative, after a blood culture was positive for coagulase- negative staph, patient denies any fever or chills, leukocytosis, W BC is 4.7, BUN is 18, creatinine is 5.91. Patient is awaiting to have his hemodialysis treatment today. Patient was seen in consultation by ID service. Ms. menendez per nasal cannula, vital signs are stable, patient is afebrile. We' ll obtain a repeat chest x-ray after his hemodialysis today. Lung sounds are positive for coarse bibasilar crackles. Objective - Vital Signs Vital signs: Vital Signs Temp 97.4 F L 11/24/17 07:00 Pulse 76 11/24/17 09:00 Resp 16 11/24/17 07:00 BP 157/91 11/24/17 07:00 Pulse Ox 98 11/24/17 07:00 Intake & Output 11/23/17 11/24/17 11/24/17 18:59 06:59 18:59 Intake Total 840 200 Balance 840 200 Weight 79.5 kg Intake: Oral 840 200 Other: Voiding Method Urinal Urinal # Voids 0 0 # Bowel Movements 1 - Exam Gen. appearance revealed a 46-year-old white male, in no distress, Head exam was generally normal. There was no scleral icterus or corneal arcus. Mucous membranes were moist. Neck was supple and without jugular venous distension, thyromegaly, or carotid bruits. Carotids were easily palpable bilaterally. There was no adenopathy. The patient has a permacath in his right IJ and exit site is clean Lung sounds, coarse crackles at the bases, no rhonchi, no wheezes. Cardiac exam revealed the PMI to be normally situated and sized. The rhythm was regular and no extrasystoles were noted during several minutes of auscultation. The first and second heart sounds were normal and physiologic splitting of the second heart sound was noted. There were no murmurs, rubs, clicks, or gallops. Abdominal exam revealed normal bowel sounds. The abdomen was soft, non-tender, and without masses, organomegaly, or appreciable enlargement of the abdominal aorta. Extremities reveal a below-knee amputation on the left, chronic ulceration on the right, diminished pulse on the right, no cyanosis or clubbing. The patient also has partial right foot amputation. Neurologically awake and alert and following commands and answering questions appropriately Psychiatric: Normal mood affect and mental status examination. Lymphatics: No lymphadenopathy. - Labs CBC & Chem 7: 11/24/17 07:48 05/16/18 07:48 Labs: Abnormal Lab Results - Last 24 Hours (Table) 11/23/17 11/23/17 11/24/17 Range/Units 17:37 20:47 07:15 RBC (4.30-5.90) m/uL Hgb (13.0-17.5) gm/dL Hct (39.0-53.0) % RDW (11.5-15.5) % Sodium (137-145) mmol/L Creatinine (0.66-1.25) mg/dL Glucose (74-99) mg/dL POC Glucose (mg/dL) 117 H 141 H 119 H (75-99) mg/dL Calcium (8.4-10.2) mg/dL Alkaline Phosphatase (38-126) U/L Albumin (3.5-5.0) g/dL 11/24/17 11/24/17 11/24/17 Range/Units 07:48 07:48 11:28 RBC 3.69 L (4.30-5.90) m/uL Hgb 9.4 L (13.0-17.5) gm/dL Hct 30.4 L (39.0-53.0) % RDW 16.2 H (11.5-15.5) % Sodium 135 L (137-145) mmol/L Creatinine 5.91 H* (0.66-1.25) mg/dL Glucose 119 H (74-99) mg/dL POC Glucose (mg/dL) 137 H (75-99) mg/dL Calcium 8.2 L (8.4-10.2) mg/dL Alkaline Phosphatase 141 H (38-126) U/L Albumin 2.8 L (3.5-5.0) g/dL Microbiology - Last 24 Hours (Table) 11/21/17 11:45 Blood Culture Gram Stain - Final Blood Blood Culture - Final Coagulase Negative Staph 11/18/17 14:39 Blood Culture - Preliminary Blood No Growth after 120 hours 11/21/17 12:20 Blood Culture - Preliminary Blood No Growth after 48 hours Assessment and Plan Plan: Assessment: 1 acute dyspnea/fluid overload, secondary to missed dialysis in the setting of dialysis-dependent renal failure. The patient underwent 3 sessions of hemodialysis. Patient is gradually improving. Chest x-ray continues to show pulmonary edema, and fluid overload, strongly doubt underlying pneumoniitis. 2 acute hypertensive emergency, likely secondary to missed dialysis in addition to a background hypertensive disorder. Blood pressure is improving but still requiring multiple oral meds for blood pressure control, 3 dialysis-dependent renal failure currently on hemodialysis 3 times a week MWF and the patient missed his dialysis on Wednesday 4 preserved LV function with a component of hypertensive heart disease based on most his echocardiogram 5 coronary artery disease with previous TN 6 acute febrile illness, being investigated, remains on antibiotics empirically , antibiotics are handled by infectious disease on the case. 7 diabetic retinopathy 8 diabetic neuropathy 9 peripheral vascular disease with below-knee amputation on the left and partial dictation of the right foot along with chronic ulceration of the right lower extremity 10 previous MRSA soft tissue infection 11 fever, rule out underlying infection/sepsis, blood culture been sent and the patient was given a dose of Rocephin and vancomycin as an empiric antibiotic coverage 12 hyperlipidemia 13 seizure disorder 14 previous history of a left upper extremity DVT, line related 15 hypothyroidism 16 diabetic gastroparesis 17 chronic anemia 18 compression fracture of the vertebral spine Plan: Patient is awaiting his hemodialysis treatment today, oxygenation is stable on 3 L per nasal cannula, continue to wean FiO2. Encourage deep breathing and coughing, we'll obtain a repeat chest x-ray after his hemodialysis today. No evidence of leukocytosis. Antibiotics per ID service. I performed a history & physical examination of the patient and discussed their management with my nurse practitioner, Mouna Shah. I reviewed the nurse practitioner's note and agree with the documented findings and plan of care. Lung sounds are positive for coarse rales. The findings and the impression was discussed with the patient. I attest to the documentation by the nurse practitioner. Time with Patient: Less than 30
[2017-11-24] MEDS: CALCIUM ACETATE 667 MG CAP PO SCH ×2 (12:29→14:17)
[2017-11-24] MEDS: SEVELAMER 800 MG TAB PO SCH ×2 (12:29→14:17)
[2017-11-24] MEDS: LOSARTAN 50 MG TAB PO SCH (12:29)
[2017-11-24] MEDS: acetaZOLAMIDE 250 MG TAB PO SCH (12:29)
[2017-11-24] MEDS: levETIRAcetam 500 MG TAB PO SCH (12:29)
[2017-11-24] MEDS: CARVEDILOL 12.5 MG TAB PO SCH (12:29)
[2017-11-24] MEDS: AMIODARONE 200 MG TAB PO SCH (12:29)
[2017-11-24] MEDS: cloNIDine HCL 0.1 MG TAB PO SCH (12:29)
[2017-11-24] MEDS: SODIUM BICARBONATE TAB 650 MG TAB PO SCH (12:30)
[2017-11-24 15:12] VITALS: BP 150/84; PULSE 71; TEMP 97.6
[2017-11-24 15:41] VITALS: BMI 25.1
--- NOTE | 2017-11-24 15:59 | P.DS ---
Providers Date of admission: 11/18/17 15:39 Expected date of discharge: 11/24/17 Attending physician: Scott Aguilar Consults: 11/18/17 15:40 Consult Physician Urgent Consulting Provider: Vashti Ovalles Consult Reason/Comments: End-stage renal disease, fluid overload Do you want consulting provider notified?: Already Contacted 11/18/17 16:13 Consult Physician Urgent Consulting Provider: Parish Scott Consult Reason/Comments: Hypertensive urgency, fluid overload, end-stage renal disease Do you want consulting provider notified?: Already Contacted 11/20/17 09:43 Consult Physician Routine Consulting Provider: Charlie Sy Consult Reason/Comments: fevers, foot ulcer Do you want consulting provider notified?: Yes Primary care physician: [facility] Course: This is a 46-year-old white male well-known to currently myself. He is very noncompliant. He missed dialysis will be told not to come. He was feeling nauseated and short of breath. He presented emergency room via EMS for this. He was found to be volume overloaded. He's also been having fever. He is in the intensive care unit for further management. Nephrology, critical care , and infectious disease are following. He denies any depression at this time. 11/23/2017: Patient has been transferred to the medical floor.He reports nausea and vomiting remained improved. Uremia is improved with hemodialysis. Blood culture was positive for coag-negative Staphylococcus and is currently on vancomycin. Zosyn's been discontinued. This concerns him is from the subclavian dialysis catheter. FINAL DX Sepsis possibly from catheter site, cultures positive for Coag negative staph acute fluid overload, secondary to missed dialysis , resolved acute hypertensive emergency, resolved chronic renal failure currently on hemodialysis 3 times a week MWF and the patient missed his dialysis on Wednesday coronary artery disease with previous ME insulin-dependent diabetes with diabetic retinopathy, diabetic neuropathy peripheral vascular disease with below-knee amputation on the left and midfoot amputation of the right foot Soria grade 3 diabetic ulcer right pedal foot hyperlipidemia seizure disorder history of a left upper extremity DVT hypothyroidism anemia of chronic disease compression fracture of the vertebral spine Patient Condition at Discharge: Serious Plan - Discharge Summary Discharge Rx Participant: No New Discharge Prescriptions: New Carvedilol [Coreg*] 12.5 mg PO BID-W/MEALS #60 tab Darbepoetin Blaine [Aranesp] 40 mcg SQ Q7D syringe Losartan [Cozaar] 50 mg PO BID #60 tab Continue Insulin Glargine [Lantus] 10 unit SQ HS Atorvastatin [Lipitor] 80 mg PO HS Calcium Acetate [PhosLo] 667 mg PO TID-W/MEALS Levothyroxine Sodium [Synthroid] 25 mcg PO DAILY Sevelamer [Renvela] 800 mg PO QID Amiodarone [Cordarone] 200 mg PO BID amLODIPine [Norvasc] 10 mg PO DAILY Dilcia Jordan 1,600 mg PO BID Tamsulosin [Flomax] 0.8 mg PO PC-SUPPER Thiamine [Vitamin B-1] 100 mg PO DAILY Ammonium Lactate Lotion [Lac-Hydrin 12% Lotion] 1 applic TOPICAL BID #240 ml Gabapentin [Neurontin] 300 mg PO TID traMADol HCL [Ultram] 50 mg PO Q6HR PRN PRN Reason: Pain Ondansetron [Zofran] 4 mg PO Q8HR PRN PRN Reason: Nausea Insulin Aspart [NovoLOG Flexpen] 3 units SQ TID-W/MEALS levETIRAcetam [Keppra] 750 mg PO BID acetaZOLAMIDE [Diamox] 125 mg PO BID #60 tab Sodium Bicarbonate Tab 650 mg PO BID #60 tab Discharge Medication List Atorvastatin [Lipitor] 80 mg PO HS 04/08/15 [History] Calcium Acetate [PhosLo] 667 mg PO TID-W/MEALS 04/08/15 [History] Insulin Glargine [Lantus] 10 unit SQ HS 04/08/15 [History] Levothyroxine Sodium [Synthroid] 25 mcg PO DAILY 04/08/15 [History] Sevelamer [Renvela] 800 mg PO QID 01/20/16 [History] Amiodarone [Cordarone] 200 mg PO BID 05/20/17 [History] Dilcia Jordan 1,600 mg PO BID 05/20/17 [History] Tamsulosin [Flomax] 0.8 mg PO PC-SUPPER 05/20/17 [History] Thiamine [Vitamin B-1] 100 mg PO DAILY 05/20/17 [History] amLODIPine [Norvasc] 10 mg PO DAILY 05/20/17 [History] Ammonium Lactate Lotion [Lac-Hydrin 12% Lotion] 1 applic TOPICAL BID #240 ml 03/29 [Rx] Gabapentin [Neurontin] 300 mg PO TID 08/06/17 [History] Insulin Aspart [NovoLOG Flexpen] 3 units SQ TID-W/MEALS 08/06/17 [History] Ondansetron [Zofran] 4 mg PO Q8HR PRN 08/06/17 [History] traMADol HCL [Ultram] 50 mg PO Q6HR PRN 08/06/17 [History] levETIRAcetam [Keppra] 750 mg PO BID 10/25/17 [History] Sodium Bicarbonate Tab 650 mg PO BID #60 tab 11/08/17 [Rx] acetaZOLAMIDE [Diamox] 125 mg PO BID #60 tab 11/08/17 [Rx] Carvedilol [Coreg*] 12.5 mg PO BID-W/MEALS #60 tab 11/24/17 [Rx] Darbepoetin Blaine [Aranesp] 40 mcg SQ Q7D syringe 11/24/17 [Rx] Losartan [Cozaar] 50 mg PO BID #60 tab 11/24/17 [Rx] Follow up Appointment(s)/Referral(s): Scott Aguilar Jr, DO [Primary Care Provider] - 1-2 days (Patient wants to make own appointment. ) [facility], [NON-STAFF] - Yung Mann DO [STAFF PHYSICIAN] - 1 Week Patient Instructions/Handouts: Sepsis (GEN) Discharge Disposition: HOME WITH HOME HEALTH SERVICES
[2017-11-24 17:13] LABS: Glucose,Whole Blood 117 mg/dL (75-99)
== END 2017-11-24 18:30 | disposition home health service (06) | DRG 314 ==
LOC: EC 12:49 → 6ICU 15:39 → 4MS4W 11-22 13:34
PROVIDERS: ADMIT Family Medicine; ATTEND Family Medicine
PROC: 5A1D70Z Performance of Urinary Filtration, Intermittent, Less than 6 Hours Per Day (ICD-10-PCS; principal; 2017-11-19)
PROC: 5A1D70Z Performance of Urinary Filtration, Intermittent, Less than 6 Hours Per Day (ICD-10-PCS; 2017-11-21)
PROC: 5A1D70Z Performance of Urinary Filtration, Intermittent, Less than 6 Hours Per Day (ICD-10-PCS; 2017-11-22)
DX: T82.7XXA Infection and inflammatory reaction due to other cardiac and vascular devices, implants and grafts, initial encounter (principal); A41.9 Sepsis, unspecified organism; N18.6 End stage renal disease; I16.1 Hypertensive emergency; I13.2 Hypertensive heart and chronic kidney disease with heart failure and with stage 5 chronic kidney disease, or end stage renal disease; K50.90 Crohn's disease, unspecified, without complications; J98.11 Atelectasis; E10.21 Type 1 diabetes mellitus with diabetic nephropathy; E10.319 Type 1 diabetes mellitus with unspecified diabetic retinopathy without macular edema; E10.42 Type 1 diabetes mellitus with diabetic polyneuropathy; K31.84 Gastroparesis; E83.39 Other disorders of phosphorus metabolism; E10.610 Type 1 diabetes mellitus with diabetic neuropathic arthropathy; E10.43 Type 1 diabetes mellitus with diabetic autonomic (poly)neuropathy; E10.51 Type 1 diabetes mellitus with diabetic peripheral angiopathy without gangrene; I50.9 Heart failure, unspecified; E10.621 Type 1 diabetes mellitus with foot ulcer; E10.22 Type 1 diabetes mellitus with diabetic chronic kidney disease; E10.59 Type 1 diabetes mellitus with other circulatory complications; E83.9 Disorder of mineral metabolism, unspecified; L97.519 Non-pressure chronic ulcer of other part of right foot with unspecified severity; I25.10 Atherosclerotic heart disease of native coronary artery without angina pectoris; E86.0 Dehydration; D63.1 Anemia in chronic kidney disease; K21.9 Gastro-esophageal reflux disease without esophagitis; E78.5 Hyperlipidemia, unspecified; M21.961 Unspecified acquired deformity of right lower leg; I25.2 Old myocardial infarction; E03.9 Hypothyroidism, unspecified; I95.1 Orthostatic hypotension; R09.02 Hypoxemia; G40.909 Epilepsy, unspecified, not intractable, without status epilepticus; Z91.15 Patient's noncompliance with renal dialysis; Z79.890 Hormone replacement therapy; Z79.4 Long term (current) use of insulin; Z79.899 Other long term (current) drug therapy; Z86.718 Personal history of other venous thrombosis and embolism; Z99.2 Dependence on renal dialysis; Z86.14 Personal history of Methicillin resistant Staphylococcus aureus infection; Z89.512 Acquired absence of left leg below knee; Z98.42 Cataract extraction status, left eye; Z98.41 Cataract extraction status, right eye; Z86.73 Personal history of transient ischemic attack (TIA), and cerebral infarction without residual deficits; Z87.311 Personal history of (healed) other pathological fracture; Z88.2 Allergy status to sulfonamides; Z88.8 Allergy status to other drugs, medicaments and biological substances; Z80.1 Family history of malignant neoplasm of trachea, bronchus and lung; Z82.49 Family history of ischemic heart disease and other diseases of the circulatory system; Y84.1 Kidney dialysis as the cause of abnormal reaction of the patient, or of later complication, without mention of misadventure at the time of the procedure
CPT/HCPCS: 36415; 71045; 71046; 80053; 80074; 80202; 82150; 82550; 82553; 82728; 83036; 83540; 83550; 83605; 83690; 83735; 83880; 84100; 85025; 85610; 85730; 86850; 86900; 86901; 87040; 87324; 87502; 90935; 93005; 94640; 96365; 96366; 96368; 96375; 99291

== ENCOUNTER 2017-12-18 22:23 | Inpatient (IN) | payer MEDICARE, BC ==
[2017-12-18] MEDS ORDERED: FUROSEMIDE 10 MG/ML 4 ML VIAL IV STA (22:54)
[2017-12-18] MEDS ORDERED: NITROGLYCERIN OINT 1 INCH/GM PACKET TOPICAL STA (22:54)
--- NOTE | 2017-12-18 22:54 | ED ---
General Adult HPI - General Chief complaint: Shortness of Breath Stated complaint: DEV Time Seen by Provider: 12/18/17 22:44 Source: patient, RN notes reviewed Mode of arrival: wheelchair Limitations: no limitations - History of Present Illness Initial comments: Patient is a pleasant 46-year-old male presenting to the emergency department with difficulty breathing. Symptoms started yesterday. Symptoms were mild yesterday and much worse throughout the day today. Patient has had similar symptoms previously associated with fluid overload. Patient does have concerns for swelling all over including his legs and abdomen. Previous left BKA secondary to wound infection. Patient does have some discomfort of his abdomen as well. - Related Data Home Medications Medication Instructions Recorded Confirmed Atorvastatin [Lipitor] 80 mg PO HS 04/08/15 11/30/17 Calcium Acetate [PhosLo] 667 mg PO TID-W/MEALS 04/08/15 11/30/17 Insulin Glargine [Lantus] 10 unit SQ HS 04/08/15 11/30/17 Levothyroxine Sodium [Synthroid] 25 mcg PO DAILY 04/08/15 11/30/17 Sevelamer [Renvela] 800 mg PO QID 01/20/16 11/30/17 Amiodarone [Cordarone] 200 mg PO BID 05/20/17 11/30/17 Dilcia Jordan 1,600 mg PO BID 05/20/17 11/30/17 Tamsulosin [Flomax] 0.8 mg PO PC-SUPPER 05/20/17 11/30/17 Thiamine [Vitamin B-1] 100 mg PO DAILY 05/20/17 11/30/17 amLODIPine [Norvasc] 10 mg PO DAILY 05/20/17 11/30/17 Gabapentin [Neurontin] 300 mg PO TID 08/06/17 11/30/17 Insulin Aspart [NovoLOG Flexpen] 3 units SQ TID-W/MEALS 08/06/17 11/30/17 Ondansetron [Zofran] 4 mg PO Q8HR PRN 08/06/17 11/30/17 traMADol HCL [Ultram] 50 mg PO Q6HR PRN 08/06/17 11/30/17 levETIRAcetam [Keppra] 750 mg PO BID 10/25/17 11/30/17 Previous Rx's Medication Instructions Recorded Ammonium Lactate Lotion 1 applic TOPICAL BID #240 ml 07/20/17 [Lac-Hydrin 12% Lotion] Sodium Bicarbonate Tab 650 mg PO BID #60 tab 11/08/17 acetaZOLAMIDE [Diamox] 125 mg PO BID #60 tab 11/08/17 Carvedilol [Coreg*] 12.5 mg PO BID-W/MEALS #60 tab 11/24/17 Darbepoetin Blaine [Aranesp] 40 mcg SQ Q7D syringe 11/24/17 Losartan [Cozaar] 50 mg PO BID #60 tab 11/24/17 Allergies Allergy/AdvReac Type Severity Reaction Status Date / Time lisinopril Allergy Rash/Hives Verified 12/18/17 22:38 Sulfa (Sulfonamide Allergy Rash/Hives Verified 12/18/17 22:38 Antibiotics) Review of Systems ROS Statement: Those systems with pertinent positive or pertinent negative responses have been documented in the HPI. ROS Other: All systems not noted in ROS Statement are negative. Constitutional: Denies: fever Eyes: Denies: eye pain ENT: Denies: ear pain Respiratory: Reports: cough (Clear fluid), dyspnea Cardiovascular: Denies: chest pain Endocrine: Reports: fatigue Gastrointestinal: Reports: abdominal pain, diarrhea Genitourinary: Denies: dysuria Musculoskeletal: Denies: back pain Skin: Denies: rash Neurological: Denies: weakness Past Medical History Past Medical History: Diabetes Mellitus, Diabetes Mellitus, Dialysis, Deep Vein Thrombosis (DVT), GERD/Reflux, Hyperlipidemia, Hypertension, Myocardial Infarction ([place]), Renal Disease, Seizure Disorder, Thyroid Disorder, Vascular Disorder Additional Past Medical History / Comment(s): End stage renal disease on hemodialysis, previous history of peritoneal dialysis, currently undergoing hemodialysis MWF, diabetic nephropathy, neuropathy and diabetic retinopathy in addition to diabetic gastroparesis, chronic anemia, previous history of a upper extremity DVT related to IV lines, below-knee amputation on the left, peripheral vascular disease, hypothyroidism, peripheral vascular disease, seizure disorder, coronary artery disease, previous myocardial infarction, acid reflux, hyperlipidemia, MRSA wound infections, right lower extremity leg and foot ulcerationwagner grade II diabetic ulcer plantar R foot and lateral R leg, MRSA R foot. Last Myocardial Infarction Date:: 2012 History of Any Multi-Drug Resistant Organisms: MRSA Date of last positivie culture/infection: 07/01/17 MDRO Source:: RIGHT FOOT Past Surgical History: Orthopedic Surgery Additional Past Surgical History / Comment(s): HD catheter, I&D R foot/lateral R leg, amputation right partial foot & right BKA GEORGE CATARACTS,VITRECTOMY,GEORGE RETINAL SX Past Anesthesia/Blood Transfusion Reactions: No Reported Reaction Additional Past Anesthesia/Blood Transfusion Reaction / Comment(s): Pt has received blood without reaction. Past Psychological History: No Psychological Hx Reported Smoking Status: Never smoker Past Alcohol Use History: None Reported Past Drug Use History: None Reported - Past Family History Father Family Medical History: Cancer Additional Family Medical History / Comment(s): CANCER FROM [employer] [place] Mother History Unknown: Yes Family Medical History: Cancer, Supraventricular Tachycardia (SVT) Additional Family Medical History / Comment(s): LUNG CANCER(SMOKER) General Exam Limitations: no limitations General appearance: alert, in no apparent distress Head exam: Present: atraumatic Eye exam: Present: PERRL, other (Pale conjunctivae) ENT exam: Present: normal oropharynx Neck exam: Present: normal inspection Respiratory exam: Present: decreased breath sounds (Bilateral bases) Cardiovascular Exam: Present: regular rate, normal rhythm GI/Abdominal exam: Present: other (Minimally distended with mild to moderate discomfort in the supraumbilical region) Extremities exam: Present: pedal edema (Right leg), other (Left BKA) Neurological exam: Present: alert Psychiatric exam: Present: normal affect, normal mood Skin exam: Present: normal color Course Vital Signs 12/18/17 12/18/17 12/19/17 22:36 23:26 00:22 Temperature 98.6 F Pulse Rate 86 93 97 Respiratory 18 18 18 Rate Blood Pressure 202/111 210/114 220/120 O2 Sat by Pulse 95 97 95 Oximetry 12/19/17 12/19/17 01:10 01:21 Temperature Pulse Rate 95 95 Respiratory 20 20 Rate Blood Pressure 170/94 169/93 O2 Sat by Pulse 96 96 Oximetry - Reevaluation(s) Reevaluation #1: 12/18/17 22:54 Patient states he does occasionally make urine. 12/19/17 01:38 Dr. Shoemaker has been paged for admission 12/19/17 02:14 Dr. Shoemaker has been paged again for admission EKG Findings - EKG Comments: EKG Findings:: Normal sinus rhythm 94. AL 170. QRS 90. QT 376. QTc 470. Normal axis. Normal QRS. Inverted T-wave inferior Medical Decision Making - Medical Decision Making Patient reevaluated and updated. Patient does request pain medicine for his chronic pain. - Lab Data Result diagrams: 12/18/17 23:53 12/18/17 23:53 Lab Results 12/18/17 12/18/17 12/18/17 Range/Units 23:53 23:53 23:53 WBC 7.5 (3.8-10.6) k/uL RBC 3.68 L (4.30-5.90) m/uL Hgb 9.7 L (13.0-17.5) gm/dL Hct 32.3 L (39.0-53.0) % MCV 87.9 D (80.0-100.0) fL MCH 26.4 (25.0-35.0) pg MCHC 30.1 L (31.0-37.0) g/dL RDW 20.2 H (11.5-15.5) % Plt Count 277 (150-450) k/uL Neutrophils % 87 % Lymphocytes % 4 % Monocytes % 5 % Eosinophils % 3 % Basophils % 0 % Neutrophils # 6.5 (1.3-7.7) k/uL Lymphocytes # 0.3 L (1.0-4.8) k/uL Monocytes # 0.4 (0-1.0) k/uL Eosinophils # 0.2 (0-0.7) k/uL Basophils # 0.0 (0-0.2) k/uL Hypochromasia Marked Anisocytosis Moderate PT 9.8 (9.0-12.0) sec INR 1.0 (<1.2) APTT 22.1 (22.0-30.0) sec Sodium 134 L (137-145) mmol/L Potassium 5.3 H (3.5-5.1) mmol/L Chloride 101 (98-107) mmol/L Carbon Dioxide 21 L (22-30) mmol/L Anion Gap 12 mmol/L BUN 45 H (9-20) mg/dL Creatinine 5.90 H* (0.66-1.25) mg/dL Est GFR (CKD-EPI)AfAm 12 (>60 ml/min/1.73 sqM) Est GFR (CKD-EPI)NonAf 11 (>60 ml/min/1.73 sqM) Glucose 161 H (74-99) mg/dL Calcium 9.0 (8.4-10.2) mg/dL Magnesium 1.7 (1.6-2.3) mg/dL Total Bilirubin 0.7 (0.2-1.3) mg/dL AST 69 H (17-59) U/L ALT 166 H (21-72) U/L Alkaline Phosphatase 163 H (38-126) U/L Total Creatine Kinase (55-170) U/L CK-MB (CK-2) (0.0-2.4) ng/mL CK-MB (CK-2) Rel Index Troponin I (0.000-0.034) ng/mL NT-Pro-B Natriuret Pep pg/mL Total Protein 6.3 (6.3-8.2) g/dL Albumin 3.4 L (3.5-5.0) g/dL Amylase 35 (30-110) U/L Lipase 79 (23-300) U/L 12/18/17 12/18/17 Range/Units 23:53 23:53 WBC (3.8-10.6) k/uL RBC (4.30-5.90) m/uL Hgb (13.0-17.5) gm/dL Hct (39.0-53.0) % MCV (80.0-100.0) fL MCH (25.0-35.0) pg MCHC (31.0-37.0) g/dL RDW (11.5-15.5) % Plt Count (150-450) k/uL Neutrophils % % Lymphocytes % % Monocytes % % Eosinophils % % Basophils % % Neutrophils # (1.3-7.7) k/uL Lymphocytes # (1.0-4.8) k/uL Monocytes # (0-1.0) k/uL Eosinophils # (0-0.7) k/uL Basophils # (0-0.2) k/uL Hypochromasia Anisocytosis PT (9.0-12.0) sec INR (<1.2) APTT (22.0-30.0) sec Sodium (137-145) mmol/L Potassium (3.5-5.1) mmol/L Chloride (98-107) mmol/L Carbon Dioxide (22-30) mmol/L Anion Gap mmol/L BUN (9-20) mg/dL Creatinine (0.66-1.25) mg/dL Est GFR (CKD-EPI)AfAm (>60 ml/min/1.73 sqM) Est GFR (CKD-EPI)NonAf (>60 ml/min/1.73 sqM) Glucose (74-99) mg/dL Calcium (8.4-10.2) mg/dL Magnesium (1.6-2.3) mg/dL Total Bilirubin (0.2-1.3) mg/dL AST (17-59) U/L ALT (21-72) U/L Alkaline Phosphatase (38-126) U/L Total Creatine Kinase 65 (55-170) U/L CK-MB (CK-2) 4.3 H* (0.0-2.4) ng/mL CK-MB (CK-2) Rel Index 6.6 Troponin I 0.019 (0.000-0.034) ng/mL NT-Pro-B Natriuret Pep 785473 pg/mL Total Protein (6.3-8.2) g/dL Albumin (3.5-5.0) g/dL Amylase (30-110) U/L Lipase (23-300) U/L - Radiology Data Radiology results: report reviewed (Computed tomography scan of the abdomen pelvis shows pleural effusions and subcutaneous edema. Likely related to congestive heart failure.), image reviewed (Chest x-ray does show some congestive heart failure.) Disposition Clinical Impression: Congestive heart failure, Chronic renal disease Disposition: ADMITTED IP TO THIS [facility] Condition: Serious Referrals: Scott Aguilar Jr, DO [Primary Care Provider] - 1-2 days Decision Time: 01:38
--- NOTE | 2017-12-18 23:58 | XR ---
EXAMINATION TYPE: XR chest 2V DATE OF EXAM: 12/18/2017 COMPARISON: 11/23/2017 HISTORY: Short of breath TECHNIQUE: Frontal and lateral views of the chest are obtained. FINDINGS: There is pulmonary vascular congestion. There is right central venous catheter with the ti p in the right atrium. Heart appears enlarged. There are chest leads. There is some fluid in the fiss ures. IMPRESSION: Mild congestive heart failure appears worse than last exam.
--- NOTE | 2017-12-19 00:12 | CT ---
EXAMINATION TYPE: CT abdomen pelvis wo con DATE OF EXAM: 12/18/2017 COMPARISON: 11/06/2017 HISTORY: Abd pain, SOB CT DLP: 991.40 mGycm Automated exposure control for dose reduction was used. TECHNIQUE: Helical acquisition of images was performed from the lung bases through the pelvis. FINDINGS: There are bilateral pleural effusions. There is small pericardial effusion. Liver shows no focal defect. There are clips from cholecystectomy. Spleen appears normal. There is no pancreatic mass. Bile ducts are not dilated. There is no adrenal mass. Kidneys show no hydronephrosis. There is subcutaneous edema around the abdo men. There is no ascites. Bladder distends smoothly. There is no evidence of a pelvic mass. I see no evidence of bowel obstruction. There is renal vascular calcification. I see no bony destructive proce ss. There is 25% anterior wedging of T12 with vertebroplasty. There is 40% anterior wedging of T9 reginald tebra. IMPRESSION: PLEURAL EFFUSIONS AND SUBCUTANEOUS EDEMA PROBABLY RELATED TO CONGESTIVE HEART FAILURE. SMALL PERICARD IAL EFFUSION. NO FREE AIR.
[2017-12-19 00:18] LABS: Anisocytosis Moderate; Basophils % (A) 0 %; Eosinophils # (A) 0.2 k/uL (0-0.7); Eosinophils % (A) 3 %; HCT 32.3 % (39.0-53.0); HGB 9.7 gm/dL (13.0-17.5); Hypochromasia Marked; Lymphocytes # (A) 0.3 k/uL (1.0-4.8); Lymphocytes % (A) 4 %; MCH 26.4 pg (25.0-35.0); MCHC 30.1 g/dL (31.0-37.0); Mean Platelet Volume 6.8; Monocytes # (A) 0.4 k/uL (0-1.0); Monocytes % (A) 5 %; Neutrophils # (A) 6.5 k/uL (1.3-7.7); Neutrophils % (A) 87 %; Platelet Count 277 k/uL (150-450); RBC 3.68 m/uL (4.30-5.90); RDW 20.2 % (11.5-15.5); WBC 7.5 k/uL (3.8-10.6)
[2017-12-19 00:21] LABS: MCV 87.9 fL (80.0-100.0)
[2017-12-19 00:28] LABS: Partial Thromboplastin Time 22.1 sec (22.0-30.0); Prothrombin Time 9.8 sec (9.0-12.0)
[2017-12-19] MEDS ORDERED: hydrALAZINE HCL 20 MG/ML 1 ML VIAL IVP STA (00:28)
[2017-12-19 00:30] LABS: Albumin 3.4 g/dL (3.5-5.0); Magnesium 1.7 mg/dL (1.6-2.3); Potassium 5.3 mmol/L (3.5-5.1); Total Bilirubin 0.7 mg/dL (0.2-1.3); Total Protein 6.3 g/dL (6.3-8.2)
[2017-12-19 00:55] LABS: Troponin I 0.019 ng/mL (0.000-0.034)
[2017-12-19 00:57] LABS: Creatine Kinase MB 4.3 ng/mL (0.0-2.4)
[2017-12-19] MEDS ORDERED: MORPHINE SULFATE 2 MG/ML SYRINGE IVP STA (02:05)
[2017-12-19] MEDS ORDERED: ASPIRIN 325 MG TAB PO STA (02:15)
[2017-12-19] MEDS: FUROSEMIDE 10 MG/ML 4 ML VIAL IV SCH ×2 (02:40→08:53)
[2017-12-19 04:02] VITALS: BMI 30.9
[2017-12-19] MEDS: ONDANSETRON 4 MG/2 ML VIAL IVP PRN ×2 (05:09→17:53)
[2017-12-19 06:47] LABS: Glucose,Whole Blood 201 mg/dL (75-99)
[2017-12-19] MEDS: CARVEDILOL 12.5 MG TAB PO SCH ×2 (06:47→17:27)
[2017-12-19] MEDS: LEVOTHYROXINE 25 MCG TAB PO SCH (06:47)
[2017-12-19] MEDS: CALCIUM ACETATE 667 MG CAP PO SCH ×3 (06:47→17:27)
[2017-12-19] MEDS: SEVELAMER 800 MG TAB PO SCH ×4 (06:47→22:06)
[2017-12-19] MEDS: INSULIN ASPART 100 UNIT/ML 1 ML 10 ML VIAL SQ SCH ×4 (06:51→22:07)
[2017-12-19 07:16] LABS: Troponin I 0.017 ng/mL (0.000-0.034)
[2017-12-19 07:21] LABS: Creatine Kinase MB 3.7 ng/mL (0.0-2.4)
[2017-12-19] MEDS: amLODIPine 10 MG TAB PO SCH (08:06)
[2017-12-19] MEDS: GABAPENTIN 300 MG CAP PO SCH ×3 (08:06→22:05)
[2017-12-19] MEDS: acetaZOLAMIDE 250 MG TAB PO SCH ×2 (08:06→22:05)
[2017-12-19] MEDS: COLCHICINE 0.6 MG EACH PO SCH ×2 (08:06→22:06)
[2017-12-19] MEDS: DIVALPROEX ER 500 MG TAB.ER.24H PO SCH (08:06)
[2017-12-19] MEDS: THIAMINE 100 MG TAB PO SCH (08:06)
[2017-12-19] MEDS: AMIODARONE 200 MG TAB PO SCH ×2 (08:06→22:05)
[2017-12-19] MEDS: LOSARTAN 50 MG TAB PO SCH ×2 (08:06→22:05)
[2017-12-19] MEDS: SPIRONOLACTONE 25 MG TAB PO SCH (08:07)
[2017-12-19] MEDS: NITROGLYCERIN OINT 1 INCH/GM PACKET TOPICAL SCH ×4 (08:07→22:06)
[2017-12-19] MEDS: FOLIC ACID-VIT B COMPLEX-VIT C 1 CAP PO SCH ×2 (08:53→22:06)
[2017-12-19] MEDS ORDERED: hydrALAZINE HCL 25 MG TAB PO SCH (09:00)
[2017-12-19] MEDS ORDERED: FAMOTIDINE 20 MG TAB PO SCH (09:00)
--- NOTE | 2017-12-19 11:27 | P.HPIM ---
History of Present Illness H&P Date: 12/19/17 Chief Complaint: Shortness of breath This Pleasant 46-year-old white male Reports that he had diarrhea all at dialysis Wednesday. He only did have to treatment. He began experiencing shortness of breath on Wednesday. It became quite severe and Wednesday night, early Wednesday morning he presented emergency room. He was found to be in congestive heart failure. With subcutaneous fluid in his abdomen, and pleural effusions. This is his fourth admission for 2018. His last admission was less than 30 days ago. Denies any chest pains, pressures, abdominal pain, nausea, vomiting. Complaining of increased joint pain and believes he is having a flareup of gout. Review of Systems All systems: negative Past Medical History Past Medical History: Diabetes Mellitus, Diabetes Mellitus, Dialysis, Deep Vein Thrombosis (DVT), GERD/Reflux, Hyperlipidemia, Hypertension, Myocardial Infarction (AL), Renal Disease, Seizure Disorder, Thyroid Disorder, Vascular Disorder Additional Past Medical History / Comment(s): End stage renal disease on hemodialysis, previous history of peritoneal dialysis, currently undergoing hemodialysis MWF, diabetic nephropathy, diabetic retinopathy in addition to diabetic gastroparesis, chronic anemia, previous history of a upper extremity DVT related to IV lines, below-knee amputation on the left, peripheral vascular disease, hypothyroidism, peripheral vascular disease, seizure disorder, coronary artery disease, previous myocardial infarction, acid reflux, hyperlipidemia, MRSA wound infections, right lower extremity leg and foot ulcerationwagner grade II diabetic ulcer plantar R foot and lateral R leg, MRSA R foot. Last Myocardial Infarction Date:: 2012 History of Any Multi-Drug Resistant Organisms: MRSA Date of last positivie culture/infection: 07/01/17 MDRO Source:: RIGHT FOOT Past Surgical History: Orthopedic Surgery Additional Past Surgical History / Comment(s): HD catheter, I&D R foot/lateral R leg, amputation right foot toes GEORGE CATARACTS,VITRECTOMY,GEORGE RETINAL SX Past Anesthesia/Blood Transfusion Reactions: No Reported Reaction Additional Past Anesthesia/Blood Transfusion Reaction / Comment(s): Pt has received blood without reaction. Past Psychological History: No Psychological Hx Reported, Anxiety Additional Psychological History / Comment(s): Single. Denies significant alcohol or recreational drug use. Originally was from the [facility] and then moved down to [place]. Is now moved back to be with his family members in [place] since 2014.lives with his son and his brother. He has no experience. He denies any significant travel history. Brother has a pet dog in the home in which he lives. Relates that his 13-year-old daughter 2 years ago from suicide at the age of 13Relates that his 13-year-old daughter 2 years ago from suicide at the age of 13 Smoking Status: Never smoker Past Alcohol Use History: None Reported Past Drug Use History: None Reported - Past Family History Father Family Medical History: Cancer Additional Family Medical History / Comment(s): CANCER FROM AG[employer] [place] Mother History Unknown: Yes Family Medical History: Cancer, Supraventricular Tachycardia (SVT) Additional Family Medical History / Comment(s): LUNG CANCER(SMOKER) Medications and Allergies Home Medications Medication Instructions Recorded Confirmed Type Calcium Acetate [PhosLo] 667 mg PO TID-W/MEALS 04/08/15 12/19/17 History Insulin Glargine [Lantus] 10 unit SQ HS 04/08/15 12/19/17 History Levothyroxine Sodium [Synthroid] 25 mcg PO DAILY 04/08/15 12/19/17 History Sevelamer [Renvela] 800 mg PO QID 01/20/16 12/19/17 History Amiodarone [Cordarone] 200 mg PO BID 05/20/17 12/19/17 History Dilcia Jordan 1,600 mg PO BID 05/20/17 12/19/17 History Tamsulosin [Flomax] 0.8 mg PO PC-SUPPER 05/20/17 12/19/17 History Thiamine [Vitamin B-1] 100 mg PO DAILY 05/20/17 12/19/17 History amLODIPine [Norvasc] 10 mg PO DAILY 05/20/17 12/19/17 History Gabapentin [Neurontin] 300 mg PO TID 08/06/17 12/19/17 History Insulin Aspart [NovoLOG Flexpen] See Protocol SQ TID-W/MEALS 08/06/17 12/19/17 History acetaZOLAMIDE [Diamox] 125 mg PO BID #60 tab 11/08/17 12/19/17 Rx Carvedilol [Coreg*] 12.5 mg PO BID-W/MEALS #60 tab 11/24/17 12/19/17 Rx Losartan [Cozaar] 50 mg PO BID #60 tab 11/24/17 12/19/17 Rx Colchicine [Colcrys] 0.6 mg PO BID 12/19/17 12/19/17 History Divalproex ER [Depakote ER] 500 mg PO DAILY 12/19/17 12/19/17 History Famotidine 20 mg PO BID 12/19/17 12/19/17 History Lactulose 10 gm PO PRN 12/19/17 History Spironolactone 50 mg PO DAILY 12/19/17 12/19/17 History amLODIPine [Norvasc] 10 mg PO DAILY 12/19/17 12/19/17 History hydrALAZINE HCL 25 mg PO BID 12/19/17 12/19/17 History Allergies Allergy/AdvReac Type Severity Reaction Status Date / Time lisinopril Allergy Rash/Hives Verified 12/18/17 22:38 Sulfa (Sulfonamide Allergy Rash/Hives Verified 12/18/17 22:38 Antibiotics) Physical Exam Vitals: Vital Signs Temp Pulse Pulse Resp BP BP Pulse Ox 12/19/17 08:06 98.5 F 88 18 154/92 93 L 12/19/17 04:00 98.1 F 98 18 185/115 91 L 12/19/17 02:55 97.8 F 100 18 188/98 97 12/19/17 02:28 98.1 F 98 18 185/115 91 L 12/19/17 01:21 95 20 169/93 96 12/19/17 01:10 95 20 170/94 96 12/19/17 00:22 97 18 220/120 95 12/18/17 23:26 93 18 210/114 97 12/18/17 22:36 98.6 F 86 18 202/111 95 Intake and Output 12/18/17 12/19/17 12/19/17 22:59 06:59 14:59 Intake Total 60 Balance 60 Intake: Oral 60 Other: Voiding Method Urinal Urinal Weight 92.986 kg 97.9 kg General: The patient is asleep, but is easily arousable to become awake and alert, in no distress, Neck: The neck is supple, there is no thyromegaly, lymphadenopathy, tenderness or JVD. Cardiovascular: S1S2 is normal, There is a regular rate and rhythm. No , rub or gallop is appreciated.systolic murmur over the right st Respiratory: Lungs are slightly coarseto auscultation bilaterally, respirations are non-labored, breath sounds are equal. Him what diminished lung sounds at the bases, but hard to auscultate with him in the left lateral decubitus position. Gastrointestinal: Soft, non-distended, non-tender abdomen without masses or organomegaly noted. There is no rebound or guarding present. Bowel sounds are unremarkable. Musculoskeletal: Normal ROM, no tenderness, BKA to the left leg which is old, right leg has an amputation of the fore foot And Soria grade 3 diabetic ulcer to the plantar foot Neurological: CN II-XII intact, there are no obvious motor or sensory deficits. Coordination appears grossly intact. Speech is normal. Skin: Skin is warm and dry and no rashes or lesions are noted except as listed above. Results CBC & Chem 7: 12/18/17 23:53 12/18/17 23:53 Labs: Abnormal Lab Results - Last 24 Hours (Table) 12/18/17 12/18/17 12/18/17 Range/Units 23:53 23:53 23:53 RBC 3.68 L (4.30-5.90) m/uL Hgb 9.7 L (13.0-17.5) gm/dL Hct 32.3 L (39.0-53.0) % MCHC 30.1 L (31.0-37.0) g/dL RDW 20.2 H (11.5-15.5) % Lymphocytes # 0.3 L (1.0-4.8) k/uL Sodium 134 L (137-145) mmol/L Potassium 5.3 H (3.5-5.1) mmol/L Carbon Dioxide 21 L (22-30) mmol/L BUN 45 H (9-20) mg/dL Creatinine 5.90 H* (0.66-1.25) mg/dL Glucose 161 H (74-99) mg/dL POC Glucose (mg/dL) (75-99) mg/dL AST 69 H (17-59) U/L ALT 166 H (21-72) U/L Alkaline Phosphatase 163 H (38-126) U/L CK-MB (CK-2) 4.3 H* (0.0-2.4) ng/mL Albumin 3.4 L (3.5-5.0) g/dL 12/19/17 12/19/17 Range/Units 06:18 06:46 RBC (4.30-5.90) m/uL Hgb (13.0-17.5) gm/dL Hct (39.0-53.0) % MCHC (31.0-37.0) g/dL RDW (11.5-15.5) % Lymphocytes # (1.0-4.8) k/uL Sodium (137-145) mmol/L Potassium (3.5-5.1) mmol/L Carbon Dioxide (22-30) mmol/L BUN (9-20) mg/dL Creatinine (0.66-1.25) mg/dL Glucose (74-99) mg/dL POC Glucose (mg/dL) 201 H (75-99) mg/dL AST (17-59) U/L ALT (21-72) U/L Alkaline Phosphatase (38-126) U/L CK-MB (CK-2) 3.7 H* (0.0-2.4) ng/mL Albumin (3.5-5.0) g/dL Chest x-ray: report reviewed CT scan - abdomen: report reviewed Thrombosis Risk Factor Assmnt - Choose All That Apply Any of the Below Risk Factors Present?: Yes Each Factor Represents 1 point: Obesity (BMI >25) Other Risk Factors: No Other congenital or acquired thrombophilia - If yes, enter type in comment: No Thrombosis Risk Factor Assessment Total Risk Factor Score: 1 Thrombosis Risk Factor Assessment Level: Low Risk Assessment and Plan Plan: Assessment acute fluid overload/congestive heart failure, secondary to missed dialysis chronic renal failure currently on hemodialysis 3 times a week MWF and the patient missed his dialysis on Wednesday coronary artery disease with previous AL insulin-dependent diabetes with diabetic retinopathy, diabetic neuropathy peripheral vascular disease with below-knee amputation on the left and midfoot amputation of the right foot Soria grade 3 diabetic ulcer right pedal foot hyperlipidemia seizure disorder history of a left upper extremity DVT hypothyroidism anemia of chronic disease compression fracture of the vertebral spine Gout Plan Wait for the recommendations from nephrology, dialysis tomorrow, Rechecks labs in a.m. Reevaluate in a.m.
[2017-12-19] MEDS ORDERED: methylPREDNISolone 4 MG TAB TAPER PO SCH (11:30)
[2017-12-19] MEDS ORDERED: methylPREDNISolone 4 MG TAB PO ONE (12:00)
[2017-12-19 12:02] LABS: Glucose,Whole Blood 162 mg/dL (75-99)
--- NOTE | 2017-12-19 12:17 | CONS ---
CONSULTATION CHIEF COMPLAINT: Shortness of breath Greg is a 46-year-old gentleman with end-stage renal disease on hemodialysis, who presented to hospital experiencing shortness of breath. It started on Wednesday and became gradually worse throughout the day and came into hospital. He was in congestive heart failure for which Cardiology had been consulted. The patient has had diarrhea during dialysis. At the time of my evaluation he appears comfortable at rest. Has received IV Lasix and will hopefully be dialyzed. The patient did not have any chest pain. PAST MEDICAL HISTORY: Significant for diabetes, end-stage renal disease on hemodialysis, DVT, GERD, hypertension, dyslipidemia, seizure disorder, thyroid disorder. PAST SURGICAL HISTORY: Significant for end-stage renal disease on hemodialysis, diabetic retinopathy, diabetic gastric paresis, history of left below-knee amputation, peripheral vascular disease with chronic ulceration of the right foot. MEDICATIONS: At home include insulin, Synthroid, Cordarone, Flomax, Norvasc, Neurontin, Coreg, Cozaar, Colchicine, Depakote, lactulose, spironolactone, amlodipine, and hydralazine. ALLERGIES: The patient is ALLERGIC TO LISINOPRIL AND SULFA. FAMILY HISTORY: Negative for premature coronary artery disease. REVIEW OF SYSTEMS: HEENT is unremarkable. CARDIAC: As described above. RESPIRATORY: As described above. GI: Negative. GENITOURINARY: Significant for end-stage renal disease on hemodialysis. PSYCHOSOCIAL: Negative. ENDOCRINE: Negative. NEUROLOGIC: Negative. DERM: Negative. CONSTITUTIONAL: Negative. ONCOLOGICAL: Negative. The rest of the system review is not relevant. PHYSICAL EXAM: On exam, comfortable at rest. Heart rate is 88 beats of blood pressure is 150/90, respiratory rate is 18. Chest exam reveals diminished air entry at the bases. Heart exam reveals first and second heart sounds. There is a systolic murmur at the left lower sternal border. Abdomen is soft. Exam of extremities show mild edema over the right leg and left above- knee amputation. LABS: Show a hemoglobin of 9.7. BUN is 45, creatinine is 5.9. Tropes are negative. BNP is elevated. The patient had an echocardiogram last year that showed an ejection fraction of 55%. ASSESSMENT: 1. Acute onset diastolic heart failure. 2. End-stage renal disease on hemodialysis. 3. Uncontrolled hypertension. PLAN: I will continue with the IV Lasix. The patient needs to be dialyzed, which is really the only way we can get rid of the excess fluid load on him. The patient needs optimal control of blood pressure. I will increase the dose of hydralazine to 50 t.i.d. The patient is on Cordarone. I am not quite sure why. Will review his records. AMA / GISELA: [id number] /
[2017-12-19 12:31] LABS: Troponin I 0.014 ng/mL (0.000-0.034)
[2017-12-19 12:42] LABS: Creatine Kinase MB 2.7 ng/mL (0.0-2.4)
--- NOTE | 2017-12-19 13:51 | P.NPCON ---
History of Present Illness - Reason for Consult Consult date: 12/19/17 end stage renal disease - Chief Complaint ESRD on dialysis Wednesday admitted with CHF - History of Present Illness This is a 46-year-old patient known to us with ESRD on dialysis Wednesday. He was last dialyzed Wednesday about 3 L were ultrafiltered.. He usually gets 4-5 L taken off. He was not feeling well therefore they could not take much fluid off. He went home and then became short of breath and came here [facility] Wednesday. No chest pain no fever chills. He does makes small amounts of urine about a glass a day and is on Lasix at home. No fever chills no nausea vomiting no diarrhea no abdominal pain. Patient known with diabetes DVT in the past MN in the past seizure disorder. Past Medical History Past Medical History: Diabetes Mellitus, Diabetes Mellitus, Dialysis, Deep Vein Thrombosis (DVT), GERD/Reflux, Hyperlipidemia, Hypertension, Myocardial Infarction (MN), Renal Disease, Seizure Disorder, Thyroid Disorder, Vascular Disorder Additional Past Medical History / Comment(s): End stage renal disease on hemodialysis, previous history of peritoneal dialysis, currently undergoing hemodialysis MWF, diabetic nephropathy, diabetic retinopathy in addition to diabetic gastroparesis, chronic anemia, previous history of a upper extremity DVT related to IV lines, below-knee amputation on the left, peripheral vascular disease, hypothyroidism, peripheral vascular disease, seizure disorder, coronary artery disease, previous myocardial infarction, acid reflux, hyperlipidemia, MRSA wound infections, right lower extremity leg and foot ulcerationwagner grade II diabetic ulcer plantar R foot and lateral R leg, MRSA R foot. Last Myocardial Infarction Date:: 2012 History of Any Multi-Drug Resistant Organisms: MRSA Date of last positivie culture/infection: 07/01/17 MDRO Source:: RIGHT FOOT Past Surgical History: Orthopedic Surgery Additional Past Surgical History / Comment(s): HD catheter, I&D R foot/lateral R leg, amputation right foot toes GEORGE CATARACTS,VITRECTOMY,GEORGE RETINAL SX Past Anesthesia/Blood Transfusion Reactions: No Reported Reaction Additional Past Anesthesia/Blood Transfusion Reaction / Comment(s): Pt has received blood without reaction. Past Psychological History: No Psychological Hx Reported, Anxiety Additional Psychological History / Comment(s): Single. Denies significant alcohol or recreational drug use. Originally was from the [facility], [place] and then moved down to [place]. Is now moved back to be with his family members in [place] since 2014.lives with his son and his brother. He has no experience. He denies any significant travel history. Brother has a pet dog in the home in which he lives. Relates that his 13-year-old daughter 2 years ago from suicide at the age of 13Relates that his 13-year-old daughter 2 years ago from suicide at the age of 13 Smoking Status: Never smoker Past Alcohol Use History: None Reported Past Drug Use History: None Reported - Past Family History Father Family Medical History: Cancer Additional Family Medical History / Comment(s): CANCER FROM AGENT [place] Mother History Unknown: Yes Family Medical History: Cancer, Supraventricular Tachycardia (SVT) Additional Family Medical History / Comment(s): LUNG CANCER(SMOKER) Medications and Allergies Home Medications Medication Instructions Recorded Confirmed Type Calcium Acetate [PhosLo] 667 mg PO TID-W/MEALS 04/08/15 12/19/17 History Insulin Glargine [Lantus] 10 unit SQ HS 04/08/15 12/19/17 History Levothyroxine Sodium [Synthroid] 25 mcg PO DAILY 04/08/15 12/19/17 History Sevelamer [Renvela] 800 mg PO QID 01/20/16 12/19/17 History Amiodarone [Cordarone] 200 mg PO BID 05/20/17 12/19/17 History Dilcia Jordan 1,600 mg PO BID 05/20/17 12/19/17 History Tamsulosin [Flomax] 0.8 mg PO PC-SUPPER 05/20/17 12/19/17 History Thiamine [Vitamin B-1] 100 mg PO DAILY 05/20/17 12/19/17 History amLODIPine [Norvasc] 10 mg PO DAILY 05/20/17 12/19/17 History Gabapentin [Neurontin] 300 mg PO TID 08/06/17 12/19/17 History Insulin Aspart [NovoLOG Flexpen] See Protocol SQ TID-W/MEALS 08/06/17 12/19/17 History acetaZOLAMIDE [Diamox] 125 mg PO BID #60 tab 11/08/17 12/19/17 Rx Carvedilol [Coreg*] 12.5 mg PO BID-W/MEALS #60 tab 11/24/17 12/19/17 Rx Losartan [Cozaar] 50 mg PO BID #60 tab 11/24/17 12/19/17 Rx Colchicine [Colcrys] 0.6 mg PO BID 12/19/17 12/19/17 History Divalproex ER [Depakote ER] 500 mg PO DAILY 12/19/17 12/19/17 History Famotidine 20 mg PO BID 12/19/17 12/19/17 History Lactulose 10 gm PO PRN 12/19/17 History Spironolactone 50 mg PO DAILY 12/19/17 12/19/17 History amLODIPine [Norvasc] 10 mg PO DAILY 12/19/17 12/19/17 History hydrALAZINE HCL 25 mg PO BID 12/19/17 12/19/17 History Allergies Allergy/AdvReac Type Severity Reaction Status Date / Time lisinopril Allergy Rash/Hives Verified 12/18/17 22:38 Sulfa (Sulfonamide Allergy Rash/Hives Verified 12/18/17 22:38 Antibiotics) Physical Exam Vitals: Vital Signs Temp Pulse Pulse Resp BP BP Pulse Ox 12/19/17 12:59 97.1 F L 83 18 149/92 93 L 12/19/17 08:06 98.5 F 88 18 154/92 93 L 12/19/17 04:00 98.1 F 98 18 185/115 91 L 12/19/17 02:55 97.8 F 100 18 188/98 97 12/19/17 02:28 98.1 F 98 18 185/115 91 L 12/19/17 01:21 95 20 169/93 96 12/19/17 01:10 95 20 170/94 96 12/19/17 00:22 97 18 220/120 95 12/18/17 23:26 93 18 210/114 97 12/18/17 22:36 98.6 F 86 18 202/111 95 Intake and Output 12/18/17 12/19/17 12/19/17 22:59 06:59 14:59 Intake Total 60 Balance 60 Intake: Oral 60 Other: Voiding Method Urinal Urinal # Voids 1 Weight 92.986 kg 97.9 kg On examination he is awake alert oriented comfortable He is on nasal cannula oxygen does not seem to be taking. HEENT exam no JVP neck is supple no facial asymmetry Lungs are clear to auscultation fair air entry bilaterally although the chest x- ray is consistent with congestive heart failure. Heart sounds are unremarkable for any murmur rub gallop Abdomen is soft nontender no organomegaly status masses Extremity exam was TM a on the left and EKG on the right. Trace edema Neurologically awake alert oriented. Results - Lab Results Most recent lab results Calcium 9.0 mg/dL (8.4-10.2) 12/18/17 23:53 Magnesium 1.7 mg/dL (1.6-2.3) 12/18/17 23:53 12/18/17 23:53 12/18/17 23:53 Assessment and Plan Assessment: Impression 1. ESRD on dialysis Wednesday. 2. Admitted with congestive heart failure. No evidence of MN troponins are normal. 3. Diabetes mellitus with multiple complications. 4. Status post remote TMA on the left and BKA on the right. 5. Anemia ESRD hemoglobin is 9.7 nearly at target. 6. Mild hypo-bacteremia secondary to dilution from excess fluid intake. 7. Mild hyperkalemia secondary to high glucose and ESRD. 8. Mild non-gap acidosis from ESRD Recommendation. 1. Start Lasix 100 mg every 12 today. 2. Will dialyze him tomorrow and take off about 4-5 L over 4 hours. 3. Maintain Epogen 4000 units Wednesday subcu Thank you for this consultation and we'll continue to follow
[2017-12-19] MEDS ORDERED: DARBEPOETIN ALFA 40 MCG/0.4 ML SYRINGE SQ SCH (14:00)
[2017-12-19] MEDS: FUROSEMIDE 10 MG/ML 10 ML VIAL IV SCH ×2 (15:08→22:06)
[2017-12-19] MEDS: hydrALAZINE HCL 50 MG TAB PO SCH ×2 (15:08→22:05)
[2017-12-19 17:21] LABS: Glucose,Whole Blood 229 mg/dL (75-99)
[2017-12-19] MEDS: TAMSULOSIN 0.4 MG CAP.ER.24H PO SCH (17:27)
[2017-12-19 21:08] LABS: Glucose,Whole Blood 221 mg/dL (75-99)
[2017-12-19] MEDS: INSULIN DETEMIR 100 UNIT/ML 10 ML VIAL SQ SCH (22:13)
[2017-12-19] MEDS: LOPERAMIDE 2 MG CAP PO PRN (22:53)
[2017-12-20] MEDS: ONDANSETRON 4 MG/2 ML VIAL IVP PRN (01:34)
[2017-12-20 06:12] LABS: Glucose,Whole Blood 286 mg/dL (75-99)
[2017-12-20] MEDS: CALCIUM ACETATE 667 MG CAP PO SCH ×3 (06:33→17:11)
[2017-12-20] MEDS: SEVELAMER 800 MG TAB PO SCH ×4 (06:34→20:23)
[2017-12-20] MEDS: LEVOTHYROXINE 25 MCG TAB PO SCH (06:34)
[2017-12-20] MEDS: INSULIN ASPART 100 UNIT/ML 1 ML 10 ML VIAL SQ SCH ×4 (06:34→20:29)
[2017-12-20] MEDS: NITROGLYCERIN OINT 1 INCH/GM PACKET TOPICAL SCH ×4 (07:49→20:24)
[2017-12-20] MEDS: LOPERAMIDE 2 MG CAP PO PRN ×3 (09:37→23:53)
[2017-12-20] MEDS: CARVEDILOL 12.5 MG TAB PO SCH ×2 (09:46→17:11)
[2017-12-20] MEDS: FUROSEMIDE 10 MG/ML 10 ML VIAL IV SCH (10:20)
[2017-12-20] MEDS: acetaZOLAMIDE 250 MG TAB PO SCH ×2 (10:20→20:22)
[2017-12-20] MEDS: AMIODARONE 200 MG TAB PO SCH ×2 (10:20→20:23)
[2017-12-20] MEDS: FOLIC ACID-VIT B COMPLEX-VIT C 1 CAP PO SCH ×2 (10:20→20:23)
[2017-12-20] MEDS: COLCHICINE 0.6 MG EACH PO SCH ×3 (10:20→23:55)
[2017-12-20] MEDS: GABAPENTIN 300 MG CAP PO SCH ×3 (10:21→20:23)
[2017-12-20] MEDS: hydrALAZINE HCL 50 MG TAB PO SCH ×3 (10:21→20:23)
[2017-12-20] MEDS: LOSARTAN 50 MG TAB PO SCH ×2 (10:21→20:23)
--- NOTE | 2017-12-20 10:40 | P.PN ---
Subjective Progress Note Date: 12/20/17 12/19/2017: per Dr. Hough This Pleasant 46-year-old white male Reports that he had diarrhea all at dialysis Wednesday. He only did have to treatment. He began experiencing shortness of breath on Wednesday. It became quite severe and Wednesday night, early Wednesday morning he presented emergency room. He was found to be in congestive heart failure. With subcutaneous fluid in his abdomen, and pleural effusions. This is his fourth admission for 2018. His last admission was less than 30 days ago. Denies any chest pains, pressures, abdominal pain, nausea, vomiting. Complaining of increased joint pain and believes he is having a flareup of gout. 12/20/2017 Patient seen and examined at the bedside on rounds with Dr. Hough. Patient appears very tired this morning. He states he continues to have diarrhea. C- Diff was negative. Patient denies chest pain or pressure. Denies shortness of breath at rest. He is receiving 100mg lasix IV q12 hours. He is scheduled for dialysis today. Objective - Vital Signs Vital signs: Vital Signs Temp 97.5 F L 12/20/17 07:41 Pulse 77 12/20/17 07:41 Resp 18 12/20/17 07:41 BP 160/98 12/20/17 07:41 Pulse Ox 90 L 12/20/17 07:41 Intake & Output 12/19/17 12/20/17 12/20/17 18:59 06:59 18:59 Intake Total 200 240 Output Total 200 Balance 200 -200 240 Intake: Oral 200 240 Output: Urine 100 Stool 100 Other: Voiding Method Urinal Urinal Urinal # Voids 2 1 - Exam GENERAL: This is a 46-year-old male in no apparent distress at the time of examination. Pleasant and cooperative. HEENT: Head is atraumatic, normocephalic. Pupils are equal, round, and reactive to light. Sclerae anicteric. Conjunctivae are clear. Mucus membranes of the mouth are moist. Neck is supple. RESPIRATORY: Bilateral bases are diminished. No use of accessory muscles. Patient maintaining oxygen saturation greater than 92%. No chest wall tenderness is noted on palpation or with deep breathing. CARDIOVASCULAR: Dialysis catheter noted to right chest wall. Regular rate and rhythm. S1 and S2 noted. No systolic or diastolic murmur auscultated. No JVD noted. No S3 or S4 noted. GASTROINTESTINAL: No distention noted. Abdomen soft and round. Normal active bowel sounds auscultated x 4 quadrants. No pain or tenderness noted upon palpation. INTEGUMENTARY: No cyanosis. No jaundice. No rashes noted. No cellulitis noted. EXTREMITIES: Left BKA noted. Partial right foot amputation. NEUROLOGIC: Cranial nerves II-XII intact. PSYCHIATRIC: Awake, alert, and oriented X 3. Appropriate affect. Intact judgement and insight. - Labs CBC & Chem 7: 12/18/17 23:53 12/18/17 23:53 Labs: Abnormal Lab Results - Last 24 Hours (Table) 12/19/17 12/19/17 12/19/17 Range/Units 11:37 12:00 17:04 POC Glucose (mg/dL) 162 H 229 H (75-99) mg/dL CK-MB (CK-2) 2.7 H* (0.0-2.4) ng/mL 12/19/17 12/20/17 Range/Units 21:06 06:11 POC Glucose (mg/dL) 221 H 286 H (75-99) mg/dL CK-MB (CK-2) (0.0-2.4) ng/mL Assessment and Plan Plan: ASSESSMENT: Chronic kidney disease, end-stage, currently on hemodialysis Wednesday, patient only able to tolerate half of his last dialysis session on Wednesday Acute exacerbation of diastolic congestive heart failure, due to fluid overload , secondary to above Hypertension, uncontrolled Peripheral vascular disease with history of left BKA and right partial foot amputation 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 Sy in the wound care center Diabetes mellitus, type II with diabetic retinopathy and diabetic neuropathy History of seizures Coronary artery disease with previous smoker infection History of MRSA infection of left lower extremity History of left upper extremity DVT Hypothyroidism Anemia of chronic disease secondary to CKD Acute gout Recent hospitalization secondary to malfunctioning peritoneal dialysis catheter , which was removed and patient was transitioned back to hemodialysis Hospitalization in December 2017 for nausea and vomiting secondary to diabetic gastroparesis, patient signed out AMA Hospitalization in 2016 for peritonitis, PD catheter removed at that time and patient was transitioned to hemodialysis PLAN: Nephrology on consult. Appreciate recommendations and input Patient to receive dialysis today Continue IV Lasix. Wean per nephrology. Cardiology on consult. Appreciate recommendations and input Hydralazine increased per cardiology Repeat chest x-ray this a.m. Home meds as appropriate Monitor labs Monitor vital signs and address as appropriate Discharge planning: Patient to return home when stable Further recommendations pending patient's course Possible discharge home within the next 24 hours Nurse practitioner note has been reviewed by physician. Signing provider agrees with the documented findings, assessment, and plan of care.
--- NOTE | 2017-12-20 11:09 | PN ---
PROGRESS NOTE Patient is seen for followup for end-stage renal disease. He was admitted to the hospital for volume overload. He is scheduled for hemodialysis today. The patient denies any significant complaints. He states he is feeling better. He is maintained on IV Lasix as well. PHYSICAL EXAMINATION: On examination, blood pressure is 160/98, heart rate 77 per minute. He is afebrile. EXAMINATION OF THE HEART: S1, S2. EXAMINATION OF THE LUNGS: Decreased breath sounds at bases. Abdomen is soft, nontender. Examination lower extremities shows edema, below-knee amputation on the left side. LAB HEAD exam is grossly intact. Patient also has a right forefoot amputation. LABS: Labs reveal sodium of 134, potassium 5.3, BUN 45, serum creatinine 5.9. Hemoglobin 9.7 g/dL. ASSESSMENT: 1. End-stage renal disease, on hemodialysis on a Wednesday, Wednesday, Wednesday schedule via [facility]. 2. Volume overload. Currently maintained on IV Lasix. Patient is scheduled for hemodialysis today with goal UF of about 4 to 5 L. 3. Anemia of chronic disease, maintained on Aranesp. 4. Chronic kidney disease mineral bone disorder, currently on PhosLo. 5. Hypertension, partly volume sensitive on amlodipine and Coreg. The blood pressure is also worse secondary to the steroids. PLAN: Hemodialysis today with goal UF of about 4 to 5 L. MMODL / IJN: [id number] /
[2017-12-20 11:33] LABS: Glucose,Whole Blood 160 mg/dL (75-99)
--- NOTE | 2017-12-20 12:04 | P.PN ---
Subjective Principal diagnosis: Patient is sitting up in bed comfortably. He does not appear to be short of breath. No JVD. Breath sounds are clear. Heart sounds soft. No murmurs or gallops She is afebrile 97.5F, blood pressure 160/98 and 149/86 mmHg Impression Fluid overload with chronic kidney disease Awaiting dialysis today Suggest Continue current medications and the patient needs dialysis for management of blood pressure and fluid overload Continue other cardiac medications as before Objective - Vital Signs Vital signs: Vital Signs Temp 97.5 F L 12/20/17 07:41 Pulse 77 12/20/17 07:41 Resp 18 12/20/17 07:41 BP 160/98 12/20/17 07:41 Pulse Ox 90 L 12/20/17 07:41 Intake & Output 12/19/17 12/20/17 12/20/17 18:59 06:59 18:59 Intake Total 200 240 Output Total 200 Balance 200 -200 240 Weight 97.9 kg Intake: Oral 200 240 Output: Urine 100 Stool 100 Other: Voiding Method Urinal Urinal Urinal # Voids 2 1 - Labs CBC & Chem 7: 12/18/17 23:53 12/18/17 23:53 Labs: Abnormal Lab Results - Last 24 Hours (Table) 12/19/17 12/19/17 12/19/17 Range/Units 11:37 17:04 21:06 POC Glucose (mg/dL) 229 H 221 H (75-99) mg/dL CK-MB (CK-2) 2.7 H* (0.0-2.4) ng/mL 12/20/17 12/20/17 Range/Units 06:11 11:23 POC Glucose (mg/dL) 286 H 160 H (75-99) mg/dL CK-MB (CK-2) (0.0-2.4) ng/mL
[2017-12-20 13:58] LABS: Hemoglobin A1C 6.9 % (4.0-6.0)
[2017-12-20] MEDS: amLODIPine 10 MG TAB PO SCH (14:33)
[2017-12-20 16:31] LABS: Glucose,Whole Blood 96 mg/dL (75-99)
[2017-12-20] MEDS: TAMSULOSIN 0.4 MG CAP.ER.24H PO SCH (17:11)
[2017-12-20] MEDS: FAMOTIDINE 20 MG TAB PO SCH (17:11)
[2017-12-20] MEDS: THIAMINE 100 MG TAB PO SCH (17:11)
[2017-12-20] MEDS: SPIRONOLACTONE 25 MG TAB PO SCH (17:11)
[2017-12-20] MEDS: ASPIRIN 325 MG TAB PO SCH ×2 (17:11→17:16)
[2017-12-20] MEDS: DIVALPROEX ER 500 MG TAB.ER.24H PO SCH (17:11)
[2017-12-20] MEDS: methylPREDNISolone 4 MG TAB TAPER PO SCH (17:12)
--- NOTE | 2017-12-20 20:16 | XR ---
EXAMINATION TYPE: XR chest 2V DATE OF EXAM: 12/20/2017 COMPARISON: NONE HISTORY: Fluid overload. TECHNIQUE: Frontal and lateral views of the chest are obtained. FINDINGS: There is an enlarged heart. There is right central venous catheter with the tip over the r ight atrium. There are chest leads. There is mild pulmonary congestion. IMPRESSION: There is evidence of mild heart failure that is improved compared to last exam.
[2017-12-20 20:19] LABS: Glucose,Whole Blood 185 mg/dL (75-99)
[2017-12-20] MEDS: INSULIN DETEMIR 100 UNIT/ML 10 ML VIAL SQ SCH (20:30)
[2017-12-20] MEDS ORDERED: ACETAMINOPHEN TAB 325 MG TAB PO PRN (21:42)
[2017-12-21] MEDS: ONDANSETRON 4 MG/2 ML VIAL IVP PRN (00:24)
[2017-12-21] MEDS: CALCIUM ACETATE 667 MG CAP PO SCH ×3 (05:54→16:49)
[2017-12-21] MEDS: methylPREDNISolone 4 MG TAB TAPER PO SCH (05:54)
[2017-12-21] MEDS: LEVOTHYROXINE 25 MCG TAB PO SCH (05:54)
[2017-12-21] MEDS: CARVEDILOL 12.5 MG TAB PO SCH ×2 (05:54→16:47)
[2017-12-21] MEDS: SEVELAMER 800 MG TAB PO SCH ×4 (05:54→21:15)
[2017-12-21] MEDS: INSULIN ASPART 100 UNIT/ML 1 ML 10 ML VIAL SQ SCH ×4 (05:57→21:20)
[2017-12-21 05:58] LABS: Glucose,Whole Blood 295 mg/dL (75-99)
[2017-12-21 07:53] LABS: Albumin 3.3 g/dL (3.5-5.0); Calcium 7.9 mg/dL (8.4-10.2); Potassium 5.6 mmol/L (3.5-5.1); Total Bilirubin 0.5 mg/dL (0.2-1.3)
[2017-12-21 08:49] LABS: Anisocytosis Moderate; Basophils % (A) 0 %; Eosinophils # (A) 0.1 k/uL (0-0.7); Eosinophils % (A) 1 %; HCT 29.5 % (39.0-53.0); Hypochromasia Marked; Lymphocytes # (A) 0.4 k/uL (1.0-4.8); Lymphocytes % (A) 6 %; MCH 26.8 pg (25.0-35.0); MCHC 30.4 g/dL (31.0-37.0); MCV 88.1 fL (80.0-100.0); Mean Platelet Volume 8.3; Monocytes # (A) 0.6 k/uL (0-1.0); Monocytes % (A) 7 %; Neutrophils # (A) 6.6 k/uL (1.3-7.7); Neutrophils % (A) 84 %; Platelet Count 244 k/uL (150-450); RBC 3.34 m/uL (4.30-5.90); WBC 7.8 k/uL (3.8-10.6)
[2017-12-21] MEDS: ASPIRIN 325 MG TAB PO SCH (09:22)
[2017-12-21] MEDS: amLODIPine 10 MG TAB PO SCH (09:22)
[2017-12-21] MEDS: AMIODARONE 200 MG TAB PO SCH ×2 (09:22→21:14)
[2017-12-21] MEDS: DIVALPROEX ER 500 MG TAB.ER.24H PO SCH (09:23)
[2017-12-21] MEDS: FAMOTIDINE 20 MG TAB PO SCH (09:23)
[2017-12-21] MEDS: FOLIC ACID-VIT B COMPLEX-VIT C 1 CAP PO SCH ×2 (09:24→21:15)
[2017-12-21] MEDS: LOSARTAN 50 MG TAB PO SCH ×2 (09:24→21:15)
[2017-12-21] MEDS: hydrALAZINE HCL 50 MG TAB PO SCH ×3 (09:24→21:15)
[2017-12-21] MEDS: NITROGLYCERIN OINT 1 INCH/GM PACKET TOPICAL SCH ×4 (09:24→21:15)
[2017-12-21] MEDS: GABAPENTIN 300 MG CAP PO SCH ×3 (09:24→21:15)
[2017-12-21] MEDS: SPIRONOLACTONE 25 MG TAB PO SCH (09:25)
[2017-12-21] MEDS: THIAMINE 100 MG TAB PO SCH (09:25)
[2017-12-21] MEDS: acetaZOLAMIDE 250 MG TAB PO SCH ×2 (09:26→21:14)
[2017-12-21] MEDS ORDERED: methylPREDNISolone SOD SUCCI 125 MG/2 ML VIAL IV STA ×2 (09:41→17:52)
--- NOTE | 2017-12-21 10:19 | P.PN ---
Subjective Progress Note Date: 12/21/17 12/19/2017: per Dr. Hough This Pleasant 46-year-old white male Reports that he had diarrhea all at dialysis Wednesday. He only did have to treatment. He began experiencing shortness of breath on Wednesday. It became quite severe and Wednesday night, early Wednesday morning he presented emergency room. He was found to be in congestive heart failure. With subcutaneous fluid in his abdomen, and pleural effusions. This is his fourth admission for 2018. His last admission was less than 30 days ago. Denies any chest pains, pressures, abdominal pain, nausea, vomiting. Complaining of increased joint pain and believes he is having a flareup of gout. 12/20/2017 Patient seen and examined at the bedside on rounds with Dr. Hough. Patient appears very tired this morning. He states he continues to have diarrhea. C- Diff was negative. Patient denies chest pain or pressure. Denies shortness of breath at rest. He is receiving 100mg lasix IV q12 hours. He is scheduled for dialysis today. 12/21/2017 Patient seen and examined at the bedside with Dr. Hough. Patient states he did not sleep well last night because of his gout and reports he was in a lot of pain. Patient underwent dialysis yesterday and tolerated well. He complains of a lot of swelling to his right lower extremity. Patient continues to have diarrhea 4-8 times a day. Cdiff was negative. Objective - Vital Signs Vital signs: Vital Signs Temp 98.6 F 12/21/17 04:00 Pulse 85 12/21/17 04:00 Resp 16 12/21/17 04:00 BP 155/95 12/21/17 04:00 Pulse Ox 95 12/21/17 04:00 Intake & Output 12/20/17 12/21/17 12/21/17 18:59 06:59 18:59 Intake Total 720 30 360 Balance 720 30 360 Weight 97.9 kg Intake: IV 30 0.9 30 Oral 720 360 Other: Voiding Method Urinal - Exam GENERAL: This is a 46-year-old male in no apparent distress at the time of examination. Pleasant and cooperative. HEENT: Head is atraumatic, normocephalic. Pupils are equal, round, and reactive to light. Sclerae anicteric. Conjunctivae are clear. Mucus membranes of the mouth are moist. Neck is supple. RESPIRATORY: Bilateral bases are diminished. No use of accessory muscles. Patient maintaining oxygen saturation greater than 92%. No chest wall tenderness is noted on palpation or with deep breathing. CARDIOVASCULAR: Dialysis catheter noted to right chest wall. Regular rate and rhythm. S1 and S2 noted. No systolic or diastolic murmur auscultated. No JVD noted. No S3 or S4 noted. GASTROINTESTINAL: No distention noted. Abdomen soft and round. Normal active bowel sounds auscultated x 4 quadrants. No pain or tenderness noted upon palpation. INTEGUMENTARY: No cyanosis. No jaundice. No rashes noted. No cellulitis noted. EXTREMITIES: Left BKA noted. Partial right foot amputation. NEUROLOGIC: Cranial nerves II-XII intact. PSYCHIATRIC: Awake, alert, and oriented X 3. Appropriate affect. Intact judgement and insight. - Labs CBC & Chem 7: 12/21/17 07:38 12/21/17 05:57 Labs: Abnormal Lab Results - Last 24 Hours (Table) 12/19/17 12/20/17 12/20/17 Range/Units 06:18 11:23 20:18 RBC (4.30-5.90) m/uL Hgb (13.0-17.5) gm/dL Hct (39.0-53.0) % MCHC (31.0-37.0) g/dL RDW (11.5-15.5) % Lymphocytes # (1.0-4.8) k/uL Sodium (137-145) mmol/L Potassium (3.5-5.1) mmol/L Carbon Dioxide (22-30) mmol/L BUN (9-20) mg/dL Creatinine (0.66-1.25) mg/dL Glucose (74-99) mg/dL POC Glucose (mg/dL) 160 H 185 H (75-99) mg/dL Hemoglobin A1c 6.9 H (4.0-6.0) % Calcium (8.4-10.2) mg/dL AST (17-59) U/L ALT (21-72) U/L Alkaline Phosphatase (38-126) U/L Total Protein (6.3-8.2) g/dL Albumin (3.5-5.0) g/dL 12/21/17 12/21/17 12/21/17 Range/Units 05:56 05:57 07:38 RBC 3.34 L (4.30-5.90) m/uL Hgb 9.0 L (13.0-17.5) gm/dL Hct 29.5 L (39.0-53.0) % MCHC 30.4 L (31.0-37.0) g/dL RDW 21.0 H (11.5-15.5) % Lymphocytes # 0.4 L (1.0-4.8) k/uL Sodium 134 L (137-145) mmol/L Potassium 5.6 H (3.5-5.1) mmol/L Carbon Dioxide 21 L (22-30) mmol/L BUN 27 H (9-20) mg/dL Creatinine 4.82 H (0.66-1.25) mg/dL Glucose 282 H (74-99) mg/dL POC Glucose (mg/dL) 295 H (75-99) mg/dL Hemoglobin A1c (4.0-6.0) % Calcium 7.9 L (8.4-10.2) mg/dL AST 105 H (17-59) U/L ALT 176 H (21-72) U/L Alkaline Phosphatase 174 H (38-126) U/L Total Protein 6.0 L (6.3-8.2) g/dL Albumin 3.3 L (3.5-5.0) g/dL Assessment and Plan Plan: ASSESSMENT: Chronic kidney disease, end-stage, currently on hemodialysis Wednesday, patient only able to tolerate half of his last dialysis session on Wednesday Acute exacerbation of diastolic congestive heart failure, due to fluid overload , secondary to above Hypertension Peripheral vascular disease with history of left BKA and right partial foot amputation 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 Sy in the wound care center Diabetes mellitus, type II with diabetic retinopathy and diabetic neuropathy History of seizures Coronary artery disease with previous smoker infection History of MRSA infection of left lower extremity History of left upper extremity DVT Hypothyroidism Anemia of chronic disease secondary to CKD Acute gout Recent hospitalization secondary to malfunctioning peritoneal dialysis catheter , which was removed and patient was transitioned back to hemodialysis Hospitalization in December 2017 for nausea and vomiting secondary to diabetic gastroparesis, patient signed out AMA Hospitalization in 2016 for peritonitis, PD catheter removed at that time and patient was transitioned to hemodialysis Hyperkalemia, secondary to chronic kidney disease PLAN: Nephrology on consult. Appreciate recommendations and input Cardiology on consult. Appreciate recommendations and input Solu-Medrol 60 mg IV 1 dose, then 50 mg prednisone daily starting tomorrow morning Obtain stool sample for stool culture Consult GI to evaluate patient due to ongoing diarrhea ADRIAN hose to right lower extremity. Elevate while in bed. Home meds as appropriate Monitor labs Monitor vital signs and address as appropriate Discharge planning: Patient to return home when stable Further recommendations pending patient's course Possible discharge home within the next 24 hours Nurse practitioner note has been reviewed by physician. Signing provider agrees with the documented findings, assessment, and plan of care.
--- NOTE | 2017-12-21 10:25 | ECHOF ---
Referral Reason:heart failure MEASUREMENTS -------- HEIGHT: 177.8 cm WEIGHT: 97.5 kg BP: 134/89 RVIDd: 2.9 cm (< 3.3) IVSd: 1.5 cm (0.6 - 1.1) LVIDd: 5.4 cm (3.9 - 5.3) LVPWd: 1.4 cm (0.6 - 1.1) IVSs: 2.0 cm LVIDs: 4.0 cm LVPWs: 1.8 cm LAESV Index (A-L): 31.68 ml/m Ao Diam: 3.6 cm (2.0 - 3.7) AV Cusp: 2.0 cm (1.5 - 2.6) LA Diam: 4.5 cm (2.7 - 3.8) EPSS: 1.1 cm MV E Lino: 1.31 m/s MV DecT: 168 ms MV A Lino: 0.52 m/s MV E/A Ratio: 2.51 RAP: 15.00 mmHg RVSP: 54.46 mmHg MV EF SLOPE: 160.96 mm/s (70 - 150) MV EXCURSION: 2.11 cm (> 18.000) FINDINGS -------- Sinus rhythm. This was a technically adequate study. Patient being dialyzed during test. The left ventricular size is normal. There is moderate concentric left ventricular hypertrophy. O verall left ventricular systolic function is low-normal with, an EF between 50 - 55 %. The right ventricle is normal in size and function. LA is midly dilated 29-33ml/m2. The right atrium is normal in size. Aortic valve is trileaflet and is mildly thickened. There is no evidence of aortic regurgitation. There is no evidence of aortic stenosis. The mitral valve leaflets are mildly thickened. Moderate mitral regurgitation is present. Moderate tricuspid regurgitation present. There is mild to moderate pulmonary hypertension. The r ight ventricular systolic pressure, as measured by Doppler, is 54.46mmHg. Trace/mild (physiologic) pulmonic regurgitation. The aortic root size is normal. The inferior vena cava is dilated with poor inspiratory collapse which is consistent with estimated r ight atrial pressure of 20 mmHg. There is no pericardial effusion. CONCLUSIONS -------- 1. Sinus rhythm. 2. This was a technically adequate study. 3. Patient being dialyzed during test. 4. The left ventricular size is normal. 5. There is moderate concentric left ventricular hypertrophy. 6. Overall left ventricular systolic function is low-normal with, an EF between 50 - 55 %. 7. LA is midly dilated 29-33ml/m2. 8. Aortic valve is trileaflet and is mildly thickened. 9. The mitral valve leaflets are mildly thickened. 10. Moderate mitral regurgitation is present. 11. Moderate tricuspid regurgitation present. 12. There is mild to moderate pulmonary hypertension. 13. The right ventricular systolic pressure, as measured by Doppler, is 54.46mmHg. 14. Trace/mild (physiologic) pulmonic regurgitation. 15. The aortic root size is normal. 16. The inferior vena cava is dilated with poor inspiratory collapse which is consistent with estimat ed right atrial pressure of 20 mmHg. 17. There is no pericardial effusion. [employer]TER: William Conrad RDCS
[2017-12-21 11:54] LABS: Glucose,Whole Blood 233 mg/dL (75-99)
--- NOTE | 2017-12-21 12:56 | P.CONS ---
History of Present Illness - Reason for Consult Consult date: 12/21/17 Diarrhea Requesting physician: Kong Hough - History of Present Illness 46-year-old gentleman multiple medical comorbidities end-stage renal disease previously on peritoneal dialysis status post catheter removal secondary to malfunction, hemodialysis Wednesday, cholecystectomy, gastroparesis, DVT, diabetes, HI, seizure disorder, left BKA, admitted with CHF exacerbation, increased shortness of breath fluid retention and persistent nonbloody diarrhea 2 weeks not relieved with Imodium. Dialysis catheter was removed 11/03/2017. Patient states he is averaging 4-10 bowel movements a day depending on his diet that is interfering with completion of his dialysis along with intermittent epigastric mid abdominal discomfort. Denies fever chills hematemesis hematochezia melena. No recent antibiotics. No changes in medications. No recent travels. No sick contacts. C. diff negative. No history of recent EGD; remote EGD years ago. No history of colonoscopy. Hemoglobin 9. White count 7.8. Platelet 244. Chemistries from 12/18/2017 sodium 134. Potassium 5.3. BUN 45. Creatinine 5.9. AST 69. ALT 166. AP 163. Total bilirubin 0.7. CT abdomen and pelvis 12/18/2017 no evidence of bowel obstruction. Pleural effusions subcutaneous edema probably related to CHF. Liver shows no focal defect. No ascites. No pelvic mass. Review of Systems Constitutional: Denies fever, chills, sweats, increase weight gain, or loss. HEENT: Negative for migraines, blurred vision or loss, earaches, drainage, tinnitus, oral mucosal lesions, dysphagia, or odynophagia. Cardiac: Negative for chest pain, arrhythmias, or palpitation. Respiratory: Negative for shortness of breath, hemoptysis, cough, or sputum production. Gastrointestinal: See HPI for pertinent findings. Genitourinary: Negative for hematuria, urgency, frequency, polyuria, dysuria, or penile discharge. Musculoskeletal: Negative for muscle aches, swelling, arthritis, and arthralgias. Neurologic: Negative for stroke or TIA. Endocrine: Negative for thyroid problems. Skin: Negative for rash or itching. Psychiatric: Negative history for depression and anxiety Past Medical History Past Medical History: Diabetes Mellitus, Diabetes Mellitus, Dialysis, Deep Vein Thrombosis (DVT), GERD/Reflux, Hyperlipidemia, Hypertension, Myocardial Infarction (HI), Renal Disease, Seizure Disorder, Thyroid Disorder, Vascular Disorder Additional Past Medical History / Comment(s): End stage renal disease on hemodialysis, previous history of peritoneal dialysis, currently undergoing hemodialysis MWF, diabetic nephropathy, diabetic retinopathy in addition to diabetic gastroparesis, chronic anemia, previous history of a upper extremity DVT related to IV lines, below-knee amputation on the left, peripheral vascular disease, hypothyroidism, peripheral vascular disease, seizure disorder, coronary artery disease, previous myocardial infarction, acid reflux, hyperlipidemia, MRSA wound infections, right lower extremity leg and foot ulcerationwagner grade II diabetic ulcer plantar R foot and lateral R leg, MRSA R foot. Last Myocardial Infarction Date:: 2012 History of Any Multi-Drug Resistant Organisms: MRSA Year Discovered:: 07/01/17 MDRO Source:: RIGHT FOOT Past Surgical History: Orthopedic Surgery Additional Past Surgical History / Comment(s): HD catheter, I&D R foot/lateral R leg, amputation right foot toes GEORGE CATARACTS,VITRECTOMY,GEORGE RETINAL SX Past Anesthesia/Blood Transfusion Reactions: No Reported Reaction Additional Past Anesthesia/Blood Transfusion Reaction / Comm: Pt has received blood without reaction. Past Psychological History: No Psychological Hx Reported, Anxiety Additional Psychological History / Comment(s): Single. Denies significant alcohol or recreational drug use. Originally was from the [place] area and then moved down to [place]. Is now moved back to be with his family members in [place] since 2014.lives with his son and his brother. He has no experience. He denies any significant travel history. Brother has a pet dog in the home in which he lives. Relates that his 13-year-old daughter 2 years ago from suicide at the age of 13Relates that his 13-year-old daughter 2 years ago from suicide at the age of 13 Smoking Status: Never smoker Past Alcohol Use History: None Reported Past Drug Use History: None Reported - Past Family History Father Family Medical History: Cancer Additional Family Medical History / Comment(s): CANCER FROM [employer] Mother History Unknown: Yes Family Medical History: Cancer, Supraventricular Tachycardia (SVT) Additional Family Medical History / Comment(s): LUNG CANCER(SMOKER) Medications and Allergies Home Medications Medication Instructions Recorded Confirmed Type Calcium Acetate [PhosLo] 667 mg PO 5XD 04/08/12/19/17 History Insulin Glargine [Lantus] 10 unit SQ HS 04/08/15 12/19/17 History Sevelamer [Renvela] 800 mg PO QID 01/20/16 12/19/17 History Tamsulosin [Flomax] 0.8 mg PO PC-SUPPER 05/20/17 12/19/17 History Thiamine [Vitamin B-1] 100 mg PO DAILY 05/20/17 12/19/17 History Gabapentin [Neurontin] 300 mg PO TID 08/06/17 12/19/17 History Insulin Aspart [NovoLOG Flexpen] See Protocol SQ TID-W/MEALS 08/06/17 12/19/17 History acetaZOLAMIDE [Diamox] 125 mg PO BID #60 tab 11/08/17 12/19/17 Rx Carvedilol [Coreg*] 12.5 mg PO BID-W/MEALS #60 tab 11/24/17 12/19/17 Rx Losartan [Cozaar] 50 mg PO BID #60 tab 11/24/17 12/19/17 Rx Colchicine [Colcrys] 0.6 mg PO BID 12/19/17 12/19/17 History Divalproex ER [Depakote ER] 500 mg PO DAILY 12/19/17 12/19/17 History Famotidine 20 mg PO BID 12/19/17 12/19/17 History Furosemide [Lasix] 80 mg PO BID 12/19/17 12/19/17 History Spironolactone 50 mg PO DAILY 12/19/17 12/19/17 History amLODIPine [Norvasc] 10 mg PO DAILY 12/19/17 12/19/17 History hydrALAZINE HCL 25 mg PO BID 12/19/17 12/19/17 History levETIRAcetam [Keppra] 500 mg PO Q12HR 12/19/17 12/19/17 History Allergies Allergy/AdvReac Type Severity Reaction Status Date / Time lisinopril Allergy Rash/Hives Verified 12/18/17 22:38 Sulfa (Sulfonamide Allergy Rash/Hives Verified 12/18/17 22:38 Antibiotics) Physical Exam Vitals: Vital Signs Temp Pulse Resp BP Pulse Ox 12/21/17 04:00 98.6 F 85 16 155/95 95 12/21/17 00:00 97 F L 82 16 144/87 94 L 12/20/17 20:00 97.5 F L 83 16 161/103 98 12/20/17 16:30 97.4 F L 83 18 178/98 98 12/20/17 12:16 98.1 F 77 18 134/89 90 L Intake and Output 12/20/17 12/21/17 12/21/17 22:59 06:59 14:59 Intake Total 260 10 360 Balance 260 10 360 Intake: IV 20 10 0.9 20 10 Oral 240 360 Other: Voiding Method Urinal General appearance: The patient is alert, oriented, in no acute distress. HET: Head is normocephalic and atraumatic. Pupils are equal and reactive. Oropharynx is clear without lesions. Neck: Supple without lymphadenopathy. Trachea midline. Heart: S1 S2. Regular rate and rhythm. Lungs: No crackles or wheezes are heard. Abdomen: Soft, mild tenderness across mid abdomen, nondistended with bowel sounds. No peritoneal signs. No palpable organomegaly or masses. Extremities: Normal skin color and turgor. No cyanosis, rash, ulceration, clubbing, or edema. Radial and pedal pulses are 2/4 bilaterally. Neurological: No focal deficits. Strength and sensation are grossly intact. Results CBC & Chem 7: 12/21/17 07:38 12/21/17 05:57 Labs: Abnormal Lab Results - Last 24 Hours (Table) 12/19/17 12/20/17 12/21/17 Range/Units : 20:18 05:56 RBC (4.30-5.90) m/uL Hgb (13.0-17.5) gm/dL Hct (39.0-53.0) % MCHC (31.0-37.0) g/dL RDW (11.5-15.5) % Lymphocytes # (1.0-4.8) k/uL Sodium (137-145) mmol/L Potassium (3.5-5.1) mmol/L Carbon Dioxide (22-30) mmol/L BUN (9-20) mg/dL Creatinine (0.66-1.25) mg/dL Glucose (74-99) mg/dL POC Glucose (mg/dL) 185 H 295 H (75-99) mg/dL Hemoglobin A1c 6.9 H (4.0-6.0) % Calcium (8.4-10.2) mg/dL AST (17-59) U/L ALT (21-72) U/L Alkaline Phosphatase (38-126) U/L Total Protein (6.3-8.2) g/dL Albumin (3.5-5.0) g/dL 12/21/17 12/21/17 Range/Units 05:57 07:38 RBC 3.34 L (4.30-5.90) m/uL Hgb 9.0 L (13.0-17.5) gm/dL Hct 29.5 L (39.0-53.0) % MCHC 30.4 L (31.0-37.0) g/dL RDW 21.0 H (11.5-15.5) % Lymphocytes # 0.4 L (1.0-4.8) k/uL Sodium 134 L (137-145) mmol/L Potassium 5.6 H (3.5-5.1) mmol/L Carbon Dioxide 21 L (22-30) mmol/L BUN 27 H (9-20) mg/dL Creatinine 4.82 H (0.66-1.25) mg/dL Glucose 282 H (74-99) mg/dL POC Glucose (mg/dL) (75-99) mg/dL Hemoglobin A1c (4.0-6.0) % Calcium 7.9 L (8.4-10.2) mg/dL AST 105 H (17-59) U/L ALT 176 H (21-72) U/L Alkaline Phosphatase 174 H (38-126) U/L Total Protein 6.0 L (6.3-8.2) g/dL Albumin 3.3 L (3.5-5.0) g/dL CT scan - abdomen: report reviewed (Dr. Dodson) Assessment and Plan (1) Diarrhea Current Visit: Yes Status: Acute Code(s): R19.7 - DIARRHEA, UNSPECIFIED SNOMED Code(s): 41780972 (2) Transaminitis Narrative/Plan: Most likely from CHF passive venous congestion however combination of underlying medication component, amiodarone, cannot be excluded Current Visit: Yes Status: Acute Code(s): R74.0 - NONSPEC ELEV OF LEVELS OF TRANSAMNS & LACTIC ACID DEHYDRGNSE SNOMED Code(s): 735440212 (3) Congestive heart failure Current Visit: Yes Status: Acute Code(s): I50.9 - HEART FAILURE, UNSPECIFIED SNOMED Code(s): 06469509 (4) End stage renal disease on dialysis Current Visit: No Status: Chronic Code(s): N18.6 - END STAGE RENAL DISEASE SNOMED Code(s): 514614412 (5) Gastroparesis Current Visit: No Status: Chronic Code(s): K31.84 - GASTROPARESIS SNOMED Code(s): 720101357 (6) Abdominal discomfort Current Visit: Yes Status: Acute Code(s): R10.9 - UNSPECIFIED ABDOMINAL PAIN SNOMED Code(s): 21636209 (7) Hyperkalemia Current Visit: Yes Status: Acute Code(s): E87.5 - HYPERKALEMIA SNOMED Code (s): 08809392 Plan: 1. Stool studies. Celiac panel. Dr. Dodson recommends EGD/colonoscopy tomorrow morning requests 0700 before dialysis. Clear liquids for dinner. NPO after midnight. Will address hyperkalemia with MDA. We'll follow with you. Thank you for this kind referral and the opportunity to participate in the care of your patient. This consultation was discussed with Dr. Dodson. The impression and plan of care have been directed as dictated.
[2017-12-21] MEDS ORDERED: BISACODYL 5 MG TABLET.DR PO STA (13:00)
[2017-12-21] MEDS ORDERED: PEG 3350-NA SULF,BICARB,CL/KCL 4,000 ML BOTTLE PO ONE (15:00)
--- NOTE | 2017-12-21 15:10 | PN ---
PROGRESS NOTE Patient is seen for followup for end-stage renal disease. He was dialyzed yesterday, he had about 4 L of ultrafiltration. Patient stated that his gout got worse soon after dialysis. He is currently maintained on colchicine. Patient states that he has tried prednisone as well previously. He is currently on the prednisone 50 mg daily. He has pain in his right foot. Patient does have a forefoot amputation on the right side. PHYSICAL EXAMINATION: Blood pressure was 174/105, heart rate 79 per minute. He is afebrile. Examination of the heart, S1, S2. Examination of the lungs, bilateral breath sounds are heard. Abdomen is soft, nontender. Examination of the lower extremities shows edema in the right leg, 2+. Patient has a left BKA. There is tenderness noted in the right foot at the site of the amputation. 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 LABS: Show sodium 134, potassium 5.6, BUN 27, serum creatinine of 4.82. I do not see a uric acid on this admission. Hemoglobin was 9.0 g/dL. ASSESSMENT: 1. End-stage renal disease, on hemodialysis on a Wednesday, Wednesday, Wednesday schedule, so will arrange for an extra treatment of hemodialysis to help with the volume overload and hypertension and a mild hyperkalemia. 2. Volume overload, now improved. Will arrange for an extra treatment. 3. Hypertension, partly volume sensitive. Patient is currently on Norvasc, Coreg, hydralazine, and Cozaar. I will increase the Coreg to 25 mg b.i.d. and hopefully the blood pressure will improve after increase ultrafiltration of about 3-3.5 L today. 4. Chronic kidney disease mineral bone disorder, maintained on PhosLo. 5. Possible gouty arthritis. Will check a uric acid level. We can plan to keep the prednisone about care home into treatment. 6. Mild hyperkalemia. Expect improvement with dialysis. We will try to hold off on the Kayexalate. PLAN: Hemodialysis today for an extra treatment to help with volume overload, hypertension, and hyperlipidemia. We can give the prednisone care home into the dialysis treatment tomorrow and increase the Coreg to 25 mg b.i.d. We will also arrange for hemodialysis in the a.m., which is his usual scheduled treatment day. MMODL / IJN: [id number] /
[2017-12-21] MEDS ORDERED: LOPERAMIDE 2 MG CAP PO SCH (16:00)
[2017-12-21] MEDS: TAMSULOSIN 0.4 MG CAP.ER.24H PO SCH (16:51)
[2017-12-21 17:08] LABS: Glucose,Whole Blood 232 mg/dL (75-99)
[2017-12-21] MEDS: SODIUM POLYSTYRENE SULFONATE 15 GM/60 ML BOTTLE PO STA ×2 (21:11→21:13)
[2017-12-21 21:12] LABS: Glucose,Whole Blood 303 mg/dL (75-99)
[2017-12-21] MEDS: COLCHICINE 0.6 MG EACH PO SCH (21:14)
[2017-12-21] MEDS: INSULIN DETEMIR 100 UNIT/ML 10 ML VIAL SQ SCH (21:20)
[2017-12-21] MEDS ORDERED: SODIUM POLYSTYRENE SULFONATE 30 GM/120 ML BOTTLE RECTAL STA (22:04)
[2017-12-21] MEDS ORDERED: SODIUM POLYSTYRENE SULFONATE 15 GM/60 ML BOTTLE PO STA (23:49)
[2017-12-22] MEDS ORDERED: MIDAZOLAM 2 MG/2 ML VIAL IV PRN (05:18)
[2017-12-22] MEDS: CARVEDILOL 12.5 MG TAB PO SCH ×2 (05:20→06:51)
[2017-12-22] MEDS: LEVOTHYROXINE 25 MCG TAB PO SCH ×2 (05:20→06:52)
[2017-12-22] MEDS: SEVELAMER 800 MG TAB PO SCH ×3 (05:20→12:04)
[2017-12-22] MEDS: CALCIUM ACETATE 667 MG CAP PO SCH ×3 (05:20→12:03)
[2017-12-22] MEDS ORDERED: LACTATED RINGERS 1,000 ML IV SCH (05:30)
[2017-12-22 05:44] VITALS: TEMP 98.7
[2017-12-22 05:57] LABS: Glucose,Whole Blood 239 mg/dL (75-99)
[2017-12-22] MEDS: INSULIN ASPART 100 UNIT/ML 1 ML 10 ML VIAL SQ SCH ×2 (05:58→12:10)
[2017-12-22 07:12] LABS: Anisocytosis Moderate; Basophils % (A) 0 %; Eosinophils # (A) 0.1 k/uL (0-0.7); Eosinophils % (A) 1 %; Hypochromasia Marked; Lymphocytes # (A) 0.5 k/uL (1.0-4.8); Lymphocytes % (A) 6 %; MCH 27.4 pg (25.0-35.0); MCV 91.1 fL (80.0-100.0); Macrocytosis Slight; Monocytes # (A) 0.4 k/uL (0-1.0); Monocytes % (A) 5 %; Neutrophils # (A) 7.7 k/uL (1.3-7.7); Neutrophils % (A) 87 %; Platelet Count 220 k/uL (150-450); RDW 21.8 % (11.5-15.5); WBC 8.8 k/uL (3.8-10.6)
[2017-12-22 07:26] LABS: Albumin 3.7 g/dL (3.5-5.0); Calcium 8.2 mg/dL (8.4-10.2); Potassium 5.7 mmol/L (3.5-5.1); Total Bilirubin 0.7 mg/dL (0.2-1.3); Total Protein 6.3 g/dL (6.3-8.2)
[2017-12-22] MEDS: amLODIPine 10 MG TAB PO SCH (08:50)
[2017-12-22] MEDS: hydrALAZINE HCL 50 MG TAB PO SCH (08:51)
[2017-12-22] MEDS: LOSARTAN 50 MG TAB PO SCH (08:52)
[2017-12-22] MEDS: NITROGLYCERIN OINT 1 INCH/GM PACKET TOPICAL SCH ×2 (08:52→13:06)
[2017-12-22] MEDS ORDERED: predniSONE 50 MG TAB PO SCH (09:00)
--- NOTE | 2017-12-22 09:42 | P.PN ---
Subjective Progress Note Date: 12/22/17 Principal diagnosis: Diarrhea EGD colonoscopy scheduled today however canceled secondary to hyperkalemia and patient unable to tolerate prep. Patient is requesting outpatient EGD colonoscopy. Stool studies obtained but pending. Potassium 6.3 earlier this morning presently 5.7. Dialysis schedule today. Objective - Vital Signs Vital signs: Vital Signs Temp 98.7 F 12/22/17 04:00 Pulse 70 12/22/17 04:00 Resp 16 12/22/17 04:00 BP 138/78 12/22/17 04:00 Pulse Ox 94 L 12/22/17 04:00 Intake & Output 12/21/17 12/22/17 12/22/17 18:59 06:59 18:59 Intake Total 1540 20 240 Output Total 100 Balance 1440 20 240 Intake: IV 20 20 0.9 20 Invasive Line 1 20 Oral 1520 240 Output: Stool 100 Other: Voiding Method Urinal Urinal # Voids 2 # Bowel Movements 1 - Exam General appearance: The patient is alert, oriented, in no acute distress. HET: Head is normocephalic and atraumatic. Pupils are equal and reactive. Oropharynx is clear without lesions. Neck: Supple without lymphadenopathy. Trachea midline. Heart: S1 S2. Regular rate and rhythm. Lungs: No crackles or wheezes are heard. Abdomen: Soft, mild tenderness across mid abdomen, nondistended with bowel sounds. No peritoneal signs. No palpable organomegaly or masses. Extremities: Left BKA. Right foot toe amputations. +2 lower extremity edema. Neurological: No focal deficits. Strength and sensation are grossly intact. - Labs CBC & Chem 7: 12/22/17 06:38 12/22/17 06:38 Labs: Abnormal Lab Results - Last 24 Hours (Table) 12/21/17 12/21/17 12/21/17 Range/Units 11:39 16:48 19:37 RBC (4.30-5.90) m/uL Hgb (13.0-17.5) gm/dL Hct (39.0-53.0) % MCHC (31.0-37.0) g/dL RDW (11.5-15.5) % Lymphocytes # (1.0-4.8) k/uL Sodium (137-145) mmol/L Potassium 5.6 H (3.5-5.1) mmol/L Chloride (98-107) mmol/L BUN (9-20) mg/dL Creatinine (0.66-1.25) mg/dL Glucose (74-99) mg/dL POC Glucose (mg/dL) 233 H 232 H (75-99) mg/dL Calcium (8.4-10.2) mg/dL AST (17-59) U/L ALT (21-72) U/L Alkaline Phosphatase (38-126) U/L 12/21/17 12/21/17 12/21/17 Range/Units 20:53 21:11 22:55 RBC (4.30-5.90) m/uL Hgb (13.0-17.5) gm/dL Hct (39.0-53.0) % MCHC (31.0-37.0) g/dL RDW (11.5-15.5) % Lymphocytes # (1.0-4.8) k/uL Sodium (137-145) mmol/L Potassium 6.2 H* 5.5 H (3.5-5.1) mmol/L Chloride (98-107) mmol/L BUN (9-20) mg/dL Creatinine (0.66-1.25) mg/dL Glucose (74-99) mg/dL POC Glucose (mg/dL) 303 H (75-99) mg/dL Calcium (8.4-10.2) mg/dL AST (17-59) U/L ALT (21-72) U/L Alkaline Phosphatase (38-126) U/L 12/22/17 12/22/17 12/22/17 Range/Units 04:06 05:56 06:38 RBC 3.30 L (4.30-5.90) m/uL Hgb 9.0 L (13.0-17.5) gm/dL Hct 30.0 L (39.0-53.0) % MCHC 30.0 L (31.0-37.0) g/dL RDW 21.8 H (11.5-15.5) % Lymphocytes # 0.5 L (1.0-4.8) k/uL Sodium (137-145) mmol/L Potassium 6.3 H* (3.5-5.1) mmol/L Chloride (98-107) mmol/L BUN (9-20) mg/dL Creatinine (0.66-1.25) mg/dL Glucose (74-99) mg/dL POC Glucose (mg/dL) 239 H (75-99) mg/dL Calcium (8.4-10.2) mg/dL AST (17-59) U/L ALT (21-72) U/L Alkaline Phosphatase (38-126) U/L / Range/Units 06:38 RBC (4.30-5.90) m/uL Hgb (13.0-17.5) gm/dL Hct (39.0-53.0) % MCHC (31.0-37.0) g/dL RDW (11.5-15.5) % Lymphocytes # (1.0-4.8) k/uL Sodium 129 L (137-145) mmol/L Potassium 5.7 H (3.5-5.1) mmol/L Chloride 90 L (98-107) mmol/L BUN 30 H (9-20) mg/dL Creatinine 4.68 H (0.66-1.25) mg/dL Glucose 218 H (74-99) mg/dL POC Glucose (mg/dL) (75-99) mg/dL Calcium 8.2 L (8.4-10.2) mg/dL AST 115 H (17-59) U/L ALT 200 H (21-72) U/L Alkaline Phosphatase 177 H (38-126) U/L Assessment and Plan (1) Diarrhea Current Visit: Yes Status: Acute Code(s): R19.7 - DIARRHEA, UNSPECIFIED SNOMED Code(s): 48128924 (2) Transaminitis Narrative/Plan: Most likely from CHF passive venous congestion however combination of underlying medication component, amiodarone, cannot be excluded Current Visit: Yes Status: Acute Code(s): R74.0 - NONSPEC ELEV OF LEVELS OF TRANSAMNS & LACTIC ACID DEHYDRGNSE SNOMED Code(s): 774921343 (3) Congestive heart failure Current Visit: Yes Status: Acute Code(s): I50.9 - HEART FAILURE, UNSPECIFIED SNOMED Code(s): 12815425 (4) End stage renal disease on dialysis Current Visit: No Status: Chronic Code(s): N18.6 - END STAGE RENAL DISEASE SNOMED Code(s): 165614608 (5) Gastroparesis Current Visit: No Status: Chronic Code(s): K31.84 - GASTROPARESIS SNOMED Code(s): 158742466 (6) Abdominal discomfort Current Visit: Yes Status: Acute Code(s): R10.9 - UNSPECIFIED ABDOMINAL PAIN SNOMED Code(s): 08976598 (7) Hyperkalemia Current Visit: Yes Status: Acute Code(s): E87.5 - HYPERKALEMIA SNOMED Code (s): 05083430 Plan: 1. Stool studies and Celiac panel pending. Dr. Dodson recommends outpatient EGD/ colonoscopy , 12/30/2017 GI office will provide prescription for bowel prep. Patient is agreeable with this plan of care. Renal diet. Imodium 2 mg 3 times a day hold for constipation. We'll continue to follow. Assessment and plan a care discussed with Dr. Dodson
[2017-12-22] MEDS ORDERED: LOPERAMIDE 2 MG CAP PO SCH (10:00)
[2017-12-22] MEDS ORDERED: HYDROmorphone 0.5 MG/0.5 ML SYRINGE IVP STA (10:20)
--- NOTE | 2017-12-22 10:31 | P.PN ---
Subjective Progress Note Date: 12/22/17 12/19/2017: per Dr. Hough This Pleasant 46-year-old white male Reports that he had diarrhea all at dialysis Wednesday. He only did have to treatment. He began experiencing shortness of breath on Wednesday. It became quite severe and Wednesday night, early Wednesday morning he presented emergency room. He was found to be in congestive heart failure. With subcutaneous fluid in his abdomen, and pleural effusions. This is his fourth admission for 2018. His last admission was less than 30 days ago. Denies any chest pains, pressures, abdominal pain, nausea, vomiting. Complaining of increased joint pain and believes he is having a flareup of gout. 12/20/2017 Patient seen and examined at the bedside on rounds with Dr. Hough. Patient appears very tired this morning. He states he continues to have diarrhea. C- Diff was negative. Patient denies chest pain or pressure. Denies shortness of breath at rest. He is receiving 100mg lasix IV q12 hours. He is scheduled for dialysis today. 12/21/2017 Patient seen and examined at the bedside with Dr. Hough. Patient states he did not sleep well last night because of his gout and reports he was in a lot of pain. Patient underwent dialysis yesterday and tolerated well. He complains of a lot of swelling to his right lower extremity. Patient continues to have diarrhea 4-8 times a day. Cdiff was negative. 12/22/2017 Patient seen and examined at the bedside. Patient is awake and alert. He is just starting his dialysis treatment with a goal to remove 3 L. Patient was evaluated by GI service yesterday. Patient was to undergo colonoscopy today but patient only completed half of the prep and then refused to finish the prep. Patient states he no longer wants to have colonoscopy completed inpatient and states he is going to see GI physician outpatient for colonoscopy. Patient's potassium was elevated yesterday. He received Kayexalate. Potassium this morning remains elevated at 5.7. Patient states he is not having any abdominal pain. He denies diarrhea this morning. He has been placed on Imodium per GI. He remains on prednisone for acute gout. He states he is having pain to his right lower extremity due to his gout but states it is improving. Objective - Vital Signs Vital signs: Vital Signs Temp 98.7 F 12/22/17 04:00 Pulse 70 12/22/17 04:00 Resp 16 12/22/17 04:00 BP 138/78 12/22/17 04:00 Pulse Ox 94 L 12/22/17 04:00 Intake & Output 12/21/17 12/22/17 12/22/17 18:59 06:59 18:59 Intake Total 1540 20 240 Output Total 100 Balance 1440 20 240 Intake: IV 20 20 0.9 20 Invasive Line 1 20 Oral 1520 240 Output: Stool 100 Other: Voiding Method Urinal Urinal # Voids 2 # Bowel Movements 1 - Exam GENERAL: This is a 46-year-old male in no apparent distress at the time of examination. Pleasant and cooperative. HEENT: Head is atraumatic, normocephalic. Pupils are equal, round, and reactive to light. Sclerae anicteric. Conjunctivae are clear. Mucus membranes of the mouth are moist. Neck is supple. RESPIRATORY: Bilateral bases are diminished. No use of accessory muscles. Patient maintaining oxygen saturation greater than 92%. No chest wall tenderness is noted on palpation or with deep breathing. CARDIOVASCULAR: Dialysis catheter noted to right chest wall. Regular rate and rhythm. S1 and S2 noted. No systolic or diastolic murmur auscultated. No JVD noted. No S3 or S4 noted. GASTROINTESTINAL: No distention noted. Abdomen soft and round. Normal active bowel sounds auscultated x 4 quadrants. No pain or tenderness noted upon palpation. INTEGUMENTARY: No cyanosis. No jaundice. No rashes noted. No cellulitis noted. EXTREMITIES: Left BKA noted. Partial right foot amputation. NEUROLOGIC: Cranial nerves II-XII intact. PSYCHIATRIC: Awake, alert, and oriented X 3. Appropriate affect. Intact judgement and insight. - Labs CBC & Chem 7: 12/22/17 06:38 12/22/17 06:38 Labs: Abnormal Lab Results - Last 24 Hours (Table) 12/21/17 12/21/17 12/21/17 Range/Units 11:39 16:48 19:37 RBC (4.30-5.90) m/uL Hgb (13.0-17.5) gm/dL Hct (39.0-53.0) % MCHC (31.0-37.0) g/dL RDW (11.5-15.5) % Lymphocytes # (1.0-4.8) k/uL Sodium (137-145) mmol/L Potassium 5.6 H (3.5-5.1) mmol/L Chloride (98-107) mmol/L BUN (9-20) mg/dL Creatinine (0.66-1.25) mg/dL Glucose (74-99) mg/dL POC Glucose (mg/dL) 233 H 232 H (75-99) mg/dL Calcium (8.4-10.2) mg/dL AST (17-59) U/L ALT (21-72) U/L Alkaline Phosphatase (38-126) U/L 12/21/17 12/21/17 12/21/17 Range/Units 20:53 21:11 22:55 RBC (4.30-5.90) m/uL Hgb (13.0-17.5) gm/dL Hct (39.0-53.0) % MCHC (31.0-37.0) g/dL RDW (11.5-15.5) % Lymphocytes # (1.0-4.8) k/uL Sodium (137-145) mmol/L Potassium 6.2 H* 5.5 H (3.5-5.1) mmol/L Chloride (98-107) mmol/L BUN (9-20) mg/dL Creatinine (0.66-1.25) mg/dL Glucose (74-99) mg/dL POC Glucose (mg/dL) 303 H (75-99) mg/dL Calcium (8.4-10.2) mg/dL AST (17-59) U/L ALT (21-72) U/L Alkaline Phosphatase (38-126) U/L 12/22/17 12/22/17 12/22/17 Range/Units 04:06 05:56 06:38 RBC 3.30 L (4.30-5.90) m/uL Hgb 9.0 L (13.0-17.5) gm/dL Hct 30.0 L (39.0-53.0) % MCHC 30.0 L (31.0-37.0) g/dL RDW 21.8 H (11.5-15.5) % Lymphocytes # 0.5 L (1.0-4.8) k/uL Sodium (137-145) mmol/L Potassium 6.3 H* (3.5-5.1) mmol/L Chloride (98-107) mmol/L BUN (9-20) mg/dL Creatinine (0.66-1.25) mg/dL Glucose (74-99) mg/dL POC Glucose (mg/dL) 239 H (75-99) mg/dL Calcium (8.4-10.2) mg/dL AST (17-59) U/L ALT (21-72) U/L Alkaline Phosphatase (38-126) U/L 12/22/17 Range/Units 06:38 RBC (4.30-5.90) m/uL Hgb (13.0-17.5) gm/dL Hct (39.0-53.0) % MCHC (31.0-37.0) g/dL RDW (11.5-15.5) % Lymphocytes # (1.0-4.8) k/uL Sodium 129 L (137-145) mmol/L Potassium 5.7 H (3.5-5.1) mmol/L Chloride 90 L (98-107) mmol/L BUN 30 H (9-20) mg/dL Creatinine 4.68 H (0.66-1.25) mg/dL Glucose 218 H (74-99) mg/dL POC Glucose (mg/dL) (75-99) mg/dL Calcium 8.2 L (8.4-10.2) mg/dL AST 115 H (17-59) U/L ALT 200 H (21-72) U/L Alkaline Phosphatase 177 H (38-126) U/L Assessment and Plan Plan: ASSESSMENT: Chronic kidney disease, end-stage, currently on hemodialysis Wednesday, patient only able to tolerate half of his last dialysis session on Wednesday Acute exacerbation of diastolic congestive heart failure, due to fluid overload , secondary to above Hypertension Peripheral vascular disease with history of left BKA and right partial foot amputation 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 Sy in the wound care center Diabetes mellitus, type II with diabetic retinopathy and diabetic neuropathy History of seizures Coronary artery disease with previous smoker infection History of MRSA infection of left lower extremity History of left upper extremity DVT Hypothyroidism Anemia of chronic disease secondary to CKD Acute gout Recent hospitalization secondary to malfunctioning peritoneal dialysis catheter , which was removed and patient was transitioned back to hemodialysis Hospitalization in December 2017 for nausea and vomiting secondary to diabetic gastroparesis, patient signed out AMA Hospitalization in 2016 for peritonitis, PD catheter removed at that time and patient was transitioned to hemodialysis Hyperkalemia, secondary to chronic kidney disease PLAN: Patient to receive dialysis today. Anticipate discharge this afternoon after dialysis is complete. Patient refusing to complete bowel prep and states he will complete colonoscopy on an outpatient basis. Nurse practitioner note has been reviewed by physician. Signing provider agrees with the documented findings, assessment, and plan of care.
[2017-12-22] MEDS ORDERED: MORPHINE SULFATE 2 MG/ML SYRINGE IVP STA (10:38)
[2017-12-22 11:16] LABS: Glucose,Whole Blood 248 mg/dL (75-99)
[2017-12-22 11:25] VITALS: BP 193/114; RESP 14
--- NOTE | 2017-12-22 11:48 | P.DS ---
Providers Date of admission: 12/19/17 02:16 Expected date of discharge: 12/22/17 Attending physician: Kong Hough Consults: 12/19/17 02:16 Consult Physician Urgent Consulting Provider: Wesley Dillon Consult Reason/Comments: chf Do you want consulting provider notified?: Yes 12/19/17 02:17 Consult Physician Urgent Consulting Provider: Vashti Ovalles Consult Reason/Comments: dyspnea, fluid overload Do you want consulting provider notified?: Yes 12/21/17 09:40 Consult Physician Routine Consulting Provider: Lucinda Dodson Consult Reason/Comments: diarrhea Do you want consulting provider notified?: Yes Primary care physician: [facility] Course: 12/19/2017: per Dr. Hough This Pleasant 46-year-old white male Reports that he had diarrhea all at dialysis Wednesday. He only did have to treatment. He began experiencing shortness of breath on Wednesday. It became quite severe and Wednesday night, early Wednesday morning he presented emergency room. He was found to be in congestive heart failure. With subcutaneous fluid in his abdomen, and pleural effusions. This is his fourth admission for 2018. His last admission was less than 30 days ago. Denies any chest pains, pressures, abdominal pain, nausea, vomiting. Complaining of increased joint pain and believes he is having a flareup of gout. 12/20/2017 Patient seen and examined at the bedside on rounds with Dr. Hough. Patient appears very tired this morning. He states he continues to have diarrhea. C- Diff was negative. Patient denies chest pain or pressure. Denies shortness of breath at rest. He is receiving 100mg lasix IV q12 hours. He is scheduled for dialysis today. 12/21/2017 Patient seen and examined at the bedside with Dr. Hough. Patient states he did not sleep well last night because of his gout and reports he was in a lot of pain. Patient underwent dialysis yesterday and tolerated well. He complains of a lot of swelling to his right lower extremity. Patient continues to have diarrhea 4-8 times a day. Cdiff was negative. 12/22/2017 Patient seen and examined at the bedside. Patient is awake and alert. He is just starting his dialysis treatment with a goal to remove 3 L. Patient was evaluated by GI service yesterday. Patient was to undergo colonoscopy today but patient only completed half of the prep and then refused to finish the prep. Patient states he no longer wants to have colonoscopy completed inpatient and states he is going to see GI physician outpatient for colonoscopy. Patient's potassium was elevated yesterday. He received Kayexalate. Potassium this morning remains elevated at 5.7. Patient states he is not having any abdominal pain. He denies diarrhea this morning. He has been placed on Imodium per GI. He remains on prednisone for acute gout. He states he is having pain to his right lower extremity due to his gout but states it is improving. The patient was deemed stable for discharge per Dr. Hough. He is to resume his normal dialysis session on Wednesday. Patient is scheduled for outpatient EGD and colonoscopy on 12/30/2017 per GI physician. Rx were sent to the patient's preferred pharmacy for Imodium as needed for diarrhea and prednisone taper for acute gout. 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 Sy in the wound care center Diabetes mellitus, type II with diabetic retinopathy and diabetic neuropathy History of seizures Coronary artery disease with previous smoker infection History of MRSA infection of left lower extremity History of left upper extremity DVT Hypothyroidism Anemia of chronic disease secondary to CKD Acute gout Recent hospitalization secondary to malfunctioning peritoneal dialysis catheter , which was removed and patient was transitioned back to hemodialysis Hospitalization in December 2017 for nausea and vomiting secondary to diabetic gastroparesis, patient signed out AMA Hospitalization in 2016 for peritonitis, PD catheter removed at that time and patient was transitioned to hemodialysis Hyperkalemia, secondary to chronic kidney disease Nurse practitioner note has been reviewed by physician. Signing provider agrees with the documented findings, assessment, and plan of care. Patient Condition at Discharge: Stable Plan - Discharge Summary Discharge Rx Participant: No New Discharge Prescriptions: New Amiodarone [Cordarone] 200 mg PO BID tab hydrALAZINE HCL [Apresoline] 50 mg PO TID #90 tab Levothyroxine Sodium [Synthroid] 25 mcg PO DAILY@0630 tab Loperamide [Imodium] 2 mg PO QID PRN #30 cap PRN Reason: Diarrhea predniSONE See Taper PO DIRECTED #45 tab Continue Insulin Glargine [Lantus] 10 unit SQ HS Calcium Acetate [PhosLo] 667 mg PO 5XD Sevelamer [Renvela] 800 mg PO QID Tamsulosin [Flomax] 0.8 mg PO PC-SUPPER Thiamine [Vitamin B-1] 100 mg PO DAILY Gabapentin [Neurontin] 300 mg PO TID Insulin Aspart [NovoLOG Flexpen] See Protocol SQ TID-W/MEALS acetaZOLAMIDE [Diamox] 125 mg PO BID #60 tab Carvedilol [Coreg*] 12.5 mg PO BID-W/MEALS #60 tab Losartan [Cozaar] 50 mg PO BID #60 tab Colchicine [Colcrys] 0.6 mg PO BID amLODIPine [Norvasc] 10 mg PO DAILY Spironolactone 50 mg PO DAILY Famotidine 20 mg PO BID Divalproex ER [Depakote ER] 500 mg PO DAILY levETIRAcetam [Keppra] 500 mg PO Q12HR Furosemide [Lasix] 80 mg PO BID Discontinued hydrALAZINE HCL 25 mg PO BID Discharge Medication List Calcium Acetate [PhosLo] 667 mg PO 5XD 04/08/15 [History] Insulin Glargine [Lantus] 10 unit SQ HS 04/08/15 [History] Sevelamer [Renvela] 800 mg PO QID 01/20/16 [History] Tamsulosin [Flomax] 0.8 mg PO PC-SUPPER 05/20/17 [History] Thiamine [Vitamin B-1] 100 mg PO DAILY 05/20/17 [History] Gabapentin [Neurontin] 300 mg PO TID 08/06/17 [History] Insulin Aspart [NovoLOG Flexpen] See Protocol SQ TID-W/MEALS 08/06/17 [History] acetaZOLAMIDE [Diamox] 125 mg PO BID #60 tab 11/08/17 [Rx] Carvedilol [Coreg*] 12.5 mg PO BID-W/MEALS #60 tab 11/24/17 [Rx] Losartan [Cozaar] 50 mg PO BID #60 tab 11/24/17 [Rx] Colchicine [Colcrys] 0.6 mg PO BID 06/10/18 [History] Divalproex ER [Depakote ER] 500 mg PO DAILY 12/19/17 [History] Famotidine 20 mg PO BID 12/19/17 [History] Furosemide [Lasix] 80 mg PO BID 12/19/17 [History] Spironolactone 50 mg PO DAILY 12/19/17 [History] amLODIPine [Norvasc] 10 mg PO DAILY 12/19/17 [History] levETIRAcetam [Keppra] 500 mg PO Q12HR 12/19/17 [History] Amiodarone [Cordarone] 200 mg PO BID tab 12/22/17 [Rx] Levothyroxine Sodium [Synthroid] 25 mcg PO DAILY@0630 tab 12/22/17 [Rx] Loperamide [Imodium] 2 mg PO QID PRN #30 cap 12/22/17 [Rx] hydrALAZINE HCL [Apresoline] 50 mg PO TID #90 tab 12/22/17 [Rx] predniSONE See Taper PO DIRECTED #45 tab 12/22/17 [Rx] Follow up Appointment(s)/Referral(s): Vashti Ovalles MD [STAFF PHYSICIAN] - 1 Week Scott Aguilar Jr, DO [Primary Care Provider] - 12/28/17 10:15 am (Wednesday) Lucinda Dodson MD [STAFF PHYSICIAN] - 1 Week [facility], [NON-STAFF] - 1 Week Activity/Diet/Wound Care/Special Instructions: Outpatient EGD colonoscopy scheduled at [facility] 12/30/[address] Egan. Presurgical screening we'll notify patient with additional instructions and arrival time. GI office sent bowel prep prescription to patient's preferred pharmacy. Amiodarone and Synthroid are not new medications. Patient was taking these prior to hospitalization and does not require rx Discharge Disposition: HOME SELF-CARE
[2017-12-22 12:01] LABS: Gliadin AB IgA, Unit <0.2 U/mL
[2017-12-22] MEDS: COLCHICINE 0.6 MG EACH PO SCH (12:03)
[2017-12-22] MEDS: SPIRONOLACTONE 25 MG TAB PO SCH (12:03)
[2017-12-22] MEDS: THIAMINE 100 MG TAB PO SCH (12:03)
[2017-12-22] MEDS: FOLIC ACID-VIT B COMPLEX-VIT C 1 CAP PO SCH (12:03)
[2017-12-22] MEDS: FAMOTIDINE 20 MG TAB PO SCH (12:04)
[2017-12-22] MEDS: GABAPENTIN 300 MG CAP PO SCH (12:04)
[2017-12-22] MEDS: acetaZOLAMIDE 250 MG TAB PO SCH (12:05)
[2017-12-22] MEDS: DIVALPROEX ER 500 MG TAB.ER.24H PO SCH (12:05)
[2017-12-22] MEDS: AMIODARONE 200 MG TAB PO SCH (12:06)
[2017-12-22] MEDS: ASPIRIN 325 MG TAB PO SCH (12:06)
[2017-12-22 13:23] VITALS: PULSE 79
--- NOTE | 2017-12-22 15:19 | PN ---
PROGRESS NOTE Patient is seen on dialysis. He states that he is feeling okay. He did come off early yesterday and only had about 1-1/2 hour treatment. Patient stated his leg was hurting, that is why he came off of treatment. PHYSICAL EXAMINATION: Today, blood pressure was 138/78, heart rate of 70 per minute. Patient is afebrile. Examination of the heart, S1, S2. Examination of the lungs, bilateral breath sounds are heard. Examination of the lower extremities shows edema 2+ right leg. Patient has left BKA. LABS: Show potassium of 5.7 mc/L, hemoglobin was 9.0. ASSESSMENT: 1. End-stage renal disease, on hemodialysis on a Wednesday, Wednesday, Wednesday schedule. We tried for an extra treatment yesterday; however, patient did not tolerate, did not and complete it as he came off because of pain in his leg. He is currently on treatment today. Given the hyperkalemia, I really would like the patient to complete his full treatment. We will give him a dose of IV pain medication if needed. I have also asked the nurse to keep the prednisone one-half to his treatment. 2. Hyperkalemia, associated with hyperglycemia as well as end-stage renal disease. Patient is also not compliant with low-potassium diet. He did have orange juice this morning. This has been discussed with the patient. Expect improvement post dialysis today. 3. Right leg pain more in the proximal foot, possibly related to gout, although it is not clear. Patient is maintained on prednisone, which he states was helping except when he is on dialysis. Therefore, we will try to dose the prednisone about alf to his treatment. 4. Volume overload, currently improved since admission. 5. Hypertension, worse with pain and volume overload. PLAN: Try to complete the full dialysis treatment. Patient is encouraged regarding low- potassium diet and importance of good blood sugar control. MMODL / IJN: [id number] /
== END 2017-12-22 14:40 | disposition home health service (06) | DRG 291 ==
LOC: EC 22:23 → 6SEL 12-19 02:16
PROVIDERS: ADMIT Family Medicine; ATTEND Family Medicine
PROC: 5A1D70Z Performance of Urinary Filtration, Intermittent, Less than 6 Hours Per Day (ICD-10-PCS; principal; 2017-12-19)
DX: I13.2 Hypertensive heart and chronic kidney disease with heart failure and with stage 5 chronic kidney disease, or end stage renal disease (principal); N18.6 End stage renal disease; I50.33 Acute on chronic diastolic (congestive) heart failure; E87.2 Acidosis; R19.7 Diarrhea, unspecified; E11.22 Type 2 diabetes mellitus with diabetic chronic kidney disease; E87.5 Hyperkalemia; E11.65 Type 2 diabetes mellitus with hyperglycemia; E11.319 Type 2 diabetes mellitus with unspecified diabetic retinopathy without macular edema; E11.40 Type 2 diabetes mellitus with diabetic neuropathy, unspecified; E11.621 Type 2 diabetes mellitus with foot ulcer; E03.9 Hypothyroidism, unspecified; D63.1 Anemia in chronic kidney disease; M10.9 Gout, unspecified; E11.21 Type 2 diabetes mellitus with diabetic nephropathy; E11.43 Type 2 diabetes mellitus with diabetic autonomic (poly)neuropathy; K31.84 Gastroparesis; G40.909 Epilepsy, unspecified, not intractable, without status epilepticus; E78.5 Hyperlipidemia, unspecified; E11.51 Type 2 diabetes mellitus with diabetic peripheral angiopathy without gangrene; G89.29 Other chronic pain; I25.10 Atherosclerotic heart disease of native coronary artery without angina pectoris; K21.9 Gastro-esophageal reflux disease without esophagitis; L97.519 Non-pressure chronic ulcer of other part of right foot with unspecified severity; T38.0X5A Adverse effect of glucocorticoids and synthetic analogues, initial encounter; R74.0 Nonspecific elevation of levels of transaminase and lactic acid dehydrogenase [LDH]; Z88.2 Allergy status to sulfonamides; Z88.8 Allergy status to other drugs, medicaments and biological substances; Z79.890 Hormone replacement therapy; Z79.4 Long term (current) use of insulin; Z79.899 Other long term (current) drug therapy; Z99.2 Dependence on renal dialysis; I25.2 Old myocardial infarction; Z86.718 Personal history of other venous thrombosis and embolism; Z86.14 Personal history of Methicillin resistant Staphylococcus aureus infection; Z89.512 Acquired absence of left leg below knee; Z79.52 Long term (current) use of systemic steroids; Z80.1 Family history of malignant neoplasm of trachea, bronchus and lung; Z89.421 Acquired absence of other right toe(s)
CPT/HCPCS: 36415; 71046; 74176; 80053; 82150; 82550; 82553; 83036; 83516; 83690; 83735; 83880; 84132; 84484; 84550; 85025; 85610; 85730; 87045; 87046; 87324; 90935; 93005; 93306; 96374; 96375; 99285

== ENCOUNTER 2017-12-27 23:36 | Inpatient (IN) | payer MEDICARE, BC ==
[2017-12-27] MEDS ORDERED: HYDROcodone/APAP 5-325MG 1 EACH TAB PO STA (23:49)
[2017-12-28] MEDS ORDERED: hydrALAZINE HCL 20 MG/ML 1 ML VIAL IVP STA (00:02)
--- NOTE | 2017-12-28 00:14 | XR ---
EXAMINATION TYPE: XR chest 2V DATE OF EXAM: 12/28/2017 COMPARISON: 12/20/2017 HISTORY: Short of breath TECHNIQUE: Frontal and lateral views of the chest are obtained. FINDINGS: There is no heart failure nor confluent pneumonic infiltrate. There is however some pulmon michael vascular congestion. There is right central venous catheter with the tip over the right atrium. T here is 25% anterior wedging of T10 vertebra. There is vertebroplasty of L1 vertebra. IMPRESSION there is some pulmonary vascular congestion. This is improved slightly compared to old exa m. . There is improved inspiration compared to last exam.
[2017-12-28 00:15] LABS: Albumin 3.8 g/dL (3.5-5.0); Calcium 8.4 mg/dL (8.4-10.2); Magnesium 1.8 mg/dL (1.6-2.3); Phosphorus 3.1 mg/dL (2.5-4.5); Potassium 4.1 mmol/L (3.5-5.1); Total Bilirubin 1.4 mg/dL (0.2-1.3); Total Protein 6.3 g/dL (6.3-8.2)
[2017-12-28] MEDS ORDERED: INSULIN REGULAR 100 UNIT/ML VIAL SQ STA (00:22)
[2017-12-28] MEDS ORDERED: MORPHINE SULFATE 4 MG/ML SYRINGE IV STA (00:22)
[2017-12-28 00:24] LABS: Anisocytosis Moderate; Basophils % (A) 0 %; Eosinophils # (A) 0.1 k/uL (0-0.7); Eosinophils % (A) 1 %; HCT 35.1 % (39.0-53.0); HGB 10.8 gm/dL (13.0-17.5); Hypochromasia Moderate; Lymphocytes # (A) 0.1 k/uL (1.0-4.8); Lymphocytes % (A) 2 %; MCH 27.6 pg (25.0-35.0); MCHC 30.7 g/dL (31.0-37.0); MCV 89.9 fL (80.0-100.0); Macrocytosis Slight; Mean Platelet Volume 7.9; Monocytes # (A) 0.3 k/uL (0-1.0); Monocytes % (A) 6 %; Neutrophils # (A) 5.5 k/uL (1.3-7.7); Neutrophils % (A) 91 %; Platelet Count 186 k/uL (150-450); Poikilocytosis Slight; WBC 6.1 k/uL (3.8-10.6)
[2017-12-28 00:25] LABS: Prothrombin Time 10.2 sec (9.0-12.0)
[2017-12-28] MEDS ORDERED: MORPHINE SULFATE 2 MG/ML SYRINGE IVP STA (00:27)
[2017-12-28 00:39] LABS: Creatine Kinase MB 6.6 ng/mL (0.0-2.4); Troponin I 0.045 ng/mL (0.000-0.034)
[2017-12-28 01:15] LABS: Partial Thromboplastin Time 19.4 sec (22.0-30.0)
[2017-12-28 01:41] LABS: Glucose,Whole Blood 458 mg/dL (75-99)
--- NOTE | 2017-12-28 02:13 | ED ---
General Adult HPI - General Chief complaint: Recheck/Abnormal Lab/Rx Stated complaint: swelling- on dialysis Time Seen by Provider: 12/27/17 23:47 Source: patient Mode of arrival: ambulatory Limitations: no limitations - History of Present Illness Initial comments: This patient is a 47-year-old man who presents with a number of complaints. He states mainly that he is not feeling well. He notes that he is approximately 20 pounds over his dry weight for dialysis. He states that yesterday he had a normal dialysis session at they removed as much fluid as a code and one session. He still was not feeling well however. He complains of swelling in the dependent parts of his body and also of some shortness of breath. The patient states he is having some aching pains all over. The patient states that he is having trouble controlling his blood sugar and has been nauseated. He denies chest pain. -: days(s) Consistency: constant Improves with: none Worsens with: none Associated Symptoms: cough, malaise, nausea/vomiting, shortness of breath Treatments Prior to Arrival: none - Related Data Home Medications Medication Instructions Recorded Confirmed Calcium Acetate [PhosLo] 667 mg PO 5XD 04/08/15 12/19/17 Insulin Glargine [Lantus] 10 unit SQ HS 04/08/15 12/19/17 Sevelamer [Renvela] 800 mg PO QID 01/20/16 12/19/17 Tamsulosin [Flomax] 0.8 mg PO PC-SUPPER 05/20/17 12/19/17 Thiamine [Vitamin B-1] 100 mg PO DAILY 05/20/17 12/19/17 Gabapentin [Neurontin] 300 mg PO TID 08/06/17 12/19/17 Insulin Aspart [NovoLOG Flexpen] See Protocol SQ TID-W/MEALS 08/06/17 12/19/17 Colchicine [Colcrys] 0.6 mg PO BID 12/19/17 12/19/17 Divalproex ER [Depakote ER] 500 mg PO DAILY 12/19/17 12/19/17 Famotidine 20 mg PO BID 12/19/17 12/19/17 Furosemide [Lasix] 80 mg PO BID 12/19/17 12/19/17 Spironolactone 50 mg PO DAILY 12/19/17 12/19/17 amLODIPine [Norvasc] 10 mg PO DAILY 12/19/17 12/19/17 levETIRAcetam [Keppra] 500 mg PO Q12HR 12/19/17 12/19/17 Previous Rx's Medication Instructions Recorded acetaZOLAMIDE [Diamox] 125 mg PO BID #60 tab 11/08/17 Carvedilol [Coreg*] 12.5 mg PO BID-W/MEALS #60 tab 11/24/17 Losartan [Cozaar] 50 mg PO BID #60 tab 11/24/17 Amiodarone [Cordarone] 200 mg PO BID tab 12/22/17 Levothyroxine Sodium [Synthroid] 25 mcg PO DAILY@0630 tab 12/22/17 Loperamide [Imodium] 2 mg PO QID PRN #30 cap 12/22/17 hydrALAZINE HCL [Apresoline] 50 mg PO TID #90 tab 12/22/17 predniSONE See Taper PO DIRECTED #45 tab 12/22/17 Allergies Allergy/AdvReac Type Severity Reaction Status Date / Time lisinopril Allergy Rash/Hives Verified 12/27/17 23:47 Sulfa (Sulfonamide Allergy Rash/Hives Verified 12/27/17 23:47 Antibiotics) Review of Systems ROS Statement: Those systems with pertinent positive or pertinent negative responses have been documented in the HPI. ROS Other: All systems not noted in ROS Statement are negative. Constitutional: Reports: weakness. Denies: fever, chills Respiratory: Reports: cough, dyspnea. Denies: wheezes, hemoptysis Cardiovascular: Reports: orthopnea, edema. Denies: chest pain, palpitations, syncope Gastrointestinal: Reports: nausea. Denies: abdominal pain, vomiting, diarrhea Genitourinary: Denies: dysuria, hematuria Musculoskeletal: Reports: back pain, myalgia Skin: Denies: rash Neurological: Denies: headache, weakness, numbness Past Medical History Past Medical History: Diabetes Mellitus, Diabetes Mellitus, Dialysis, Deep Vein Thrombosis (DVT), GERD/Reflux, Hyperlipidemia, Hypertension, Myocardial Infarction (HI), Renal Disease, Seizure Disorder, Thyroid Disorder, Vascular Disorder Additional Past Medical History / Comment(s): End stage renal disease on hemodialysis, previous history of peritoneal dialysis, currently undergoing hemodialysis MWF, diabetic nephropathy, diabetic retinopathy in addition to diabetic gastroparesis, chronic anemia, previous history of a upper extremity DVT related to IV lines, below-knee amputation on the left, peripheral vascular disease, hypothyroidism, peripheral vascular disease, seizure disorder, coronary artery disease, previous myocardial infarction, acid reflux, hyperlipidemia, MRSA wound infections, right lower extremity leg and foot ulcerationwagner grade II diabetic ulcer plantar R foot and lateral R leg, MRSA R foot. Last Myocardial Infarction Date:: 2012 History of Any Multi-Drug Resistant Organisms: MRSA Date of last positivie culture/infection: 07/01/17 MDRO Source:: RIGHT FOOT Past Surgical History: Orthopedic Surgery Additional Past Surgical History / Comment(s): HD catheter, I&D R foot/lateral R leg, amputation right foot toes GEORGE CATARACTS,VITRECTOMY,GEORGE RETINAL SX Past Anesthesia/Blood Transfusion Reactions: No Reported Reaction Additional Past Anesthesia/Blood Transfusion Reaction / Comment(s): Pt has received blood without reaction. Past Psychological History: No Psychological Hx Reported, Anxiety Smoking Status: Never smoker Past Alcohol Use History: None Reported Past Drug Use History: None Reported - Past Family History Father Family Medical History: Cancer Additional Family Medical History / Comment(s): CANCER FROM AG[employer] [place] Mother History Unknown: Yes Family Medical History: Cancer, Supraventricular Tachycardia (SVT) Additional Family Medical History / Comment(s): LUNG CANCER(SMOKER) General Exam Limitations: no limitations General appearance: alert, in no apparent distress, obese Head exam: Present: atraumatic, normocephalic Eye exam: Present: normal appearance. Absent: scleral icterus, conjunctival injection ENT exam: Present: mucous membranes dry Neck exam: Present: normal inspection, full ROM Respiratory exam: Present: normal lung sounds bilaterally, rales (Bilateral bases). Absent: respiratory distress, wheezes, rhonchi, stridor, accessory muscle use, decreased breath sounds, prolonged expiratory Cardiovascular Exam: Present: regular rate, normal rhythm, normal heart sounds, systolic murmur. Absent: diastolic murmur, rubs, gallop GI/Abdominal exam: Present: soft. Absent: distended, tenderness, guarding, rebound, mass Extremities exam: Present: normal capillary refill, pedal edema, other (Patient has left leg amputation, as well as right forefoot amputation. There is some dependent edema the right leg.) Back exam: Present: normal inspection. Absent: CVA tenderness (R), CVA tenderness (L) Neurological exam: Present: alert Skin exam: Present: warm, dry, intact, normal color. Absent: rash Course Vital Signs 12/27/17 12/28/17 12/28/17 23:38 00:08 00:45 Temperature 98.6 F Pulse Rate 94 98 87 Pulse Rate [ Pulse Oximetery ] Respiratory 16 20 18 Rate Blood Pressure 212/120 203/107 183/89 Blood Pressure [Right Arm] O2 Sat by Pulse 96 95 95 Oximetry 12/28/17 12/28/17 12/28/17 01:39 02:44 03:05 Temperature 98.3 F 97.0 F L Pulse Rate 78 86 Pulse Rate [ 89 Pulse Oximetery ] Respiratory 20 18 18 Rate Blood Pressure 168/81 165/87 Blood Pressure 207/97 [Right Arm] O2 Sat by Pulse 95 96 94 L Oximetry 12/28/17 12/28/17 03:28 03:31 Temperature Pulse Rate Pulse Rate [ 89 Pulse Oximetery ] Respiratory 18 Rate Blood Pressure Blood Pressure 173/95 [Right Arm] O2 Sat by Pulse Oximetry Medical Decision Making - Medical Decision Making Case discussed with Dr. Aguilar, who will admit patient - Lab Data Result diagrams: 12/27/17 23:53 12/27/17 23:53 Lab Results 12/27/17 12/27/17 12/27/17 Range/Units 23:53 23:53 23:53 WBC 6.1 (3.8-10.6) k/uL RBC 3.90 L (4.30-5.90) m/uL Hgb 10.8 L (13.0-17.5) gm/dL Hct 35.1 L (39.0-53.0) % MCV 89.9 (80.0-100.0) fL MCH 27.6 (25.0-35.0) pg MCHC 30.7 L (31.0-37.0) g/dL RDW 23.0 H (11.5-15.5) % Plt Count 186 (150-450) k/uL Neutrophils % 91 % Lymphocytes % 2 % Monocytes % 6 % Eosinophils % 1 % Basophils % 0 % Neutrophils # 5.5 (1.3-7.7) k/uL Lymphocytes # 0.1 L (1.0-4.8) k/uL Monocytes # 0.3 (0-1.0) k/uL Eosinophils # 0.1 (0-0.7) k/uL Basophils # 0.0 (0-0.2) k/uL Hypochromasia Moderate Poikilocytosis Slight Anisocytosis Moderate Macrocytosis Slight PT (9.0-12.0) sec INR (<1.2) APTT (22.0-30.0) sec Sodium 132 L (137-145) mmol/L Potassium 4.1 (3.5-5.1) mmol/L Chloride 91 L (98-107) mmol/L Carbon Dioxide 27 (22-30) mmol/L Anion Gap 14 mmol/L BUN 31 H (9-20) mg/dL Creatinine 3.30 H (0.66-1.25) mg/dL Est GFR (CKD-EPI)AfAm 25 (>60 ml/min/1.73 sqM) Est GFR (CKD-EPI)NonAf 21 (>60 ml/min/1.73 sqM) Glucose 535 H* (74-99) mg/dL POC Glucose (mg/dL) (75-99) mg/dL POC Glu Tram Driver ID Calcium 8.4 (8.4-10.2) mg/dL Phosphorus 3.1 (2.5-4.5) mg/dL Magnesium 1.8 (1.6-2.3) mg/dL Total Bilirubin 1.4 H (0.2-1.3) mg/dL AST 143 H (17-59) U/L ALT 196 H (21-72) U/L Alkaline Phosphatase 216 H (38-126) U/L CK-MB (CK-2) 6.6 H* (0.0-2.4) ng/mL Troponin I 0.045 H* (0.000-0.034) ng/mL NT-Pro-B Natriuret Pep pg/mL Total Protein 6.3 (6.3-8.2) g/dL Albumin 3.8 (3.5-5.0) g/dL 12/27/17 12/27/17 12/28/17 Range/Units 23:53 23:53 01:40 WBC (3.8-10.6) k/uL RBC (4.30-5.90) m/uL Hgb (13.0-17.5) gm/dL Hct (39.0-53.0) % MCV (80.0-100.0) fL MCH (25.0-35.0) pg MCHC (31.0-37.0) g/dL RDW (11.5-15.5) % Plt Count (150-450) k/uL Neutrophils % % Lymphocytes % % Monocytes % % Eosinophils % % Basophils % % Neutrophils # (1.3-7.7) k/uL Lymphocytes # (1.0-4.8) k/uL Monocytes # (0-1.0) k/uL Eosinophils # (0-0.7) k/uL Basophils # (0-0.2) k/uL Hypochromasia Poikilocytosis Anisocytosis Macrocytosis PT 10.2 (9.0-12.0) sec INR 1.0 (<1.2) APTT 19.4 L (22.0-30.0) sec Sodium (137-145) mmol/L Potassium (3.5-5.1) mmol/L Chloride (98-107) mmol/L Carbon Dioxide (22-30) mmol/L Anion Gap mmol/L BUN (9-20) mg/dL Creatinine (0.66-1.25) mg/dL Est GFR (CKD-EPI)AfAm (>60 ml/min/1.73 sqM) Est GFR (CKD-EPI)NonAf (>60 ml/min/1.73 sqM) Glucose (74-99) mg/dL POC Glucose (mg/dL) 458 H (75-99) mg/dL POC Glu Tram Driver ID Lucho Arredondo Calcium (8.4-10.2) mg/dL Phosphorus (2.5-4.5) mg/dL Magnesium (1.6-2.3) mg/dL Total Bilirubin (0.2-1.3) mg/dL AST (17-59) U/L ALT (21-72) U/L Alkaline Phosphatase (38-126) U/L CK-MB (CK-2) (0.0-2.4) ng/mL Troponin I (0.000-0.034) ng/mL NT-Pro-B Natriuret Pep 115264 pg/mL Total Protein (6.3-8.2) g/dL Albumin (3.5-5.0) g/dL 12/28/17 Range/Units 06:04 WBC (3.8-10.6) k/uL RBC (4.30-5.90) m/uL Hgb (13.0-17.5) gm/dL Hct (39.0-53.0) % MCV (80.0-100.0) fL MCH (25.0-35.0) pg MCHC (31.0-37.0) g/dL RDW (11.5-15.5) % Plt Count (150-450) k/uL Neutrophils % % Lymphocytes % % Monocytes % % Eosinophils % % Basophils % % Neutrophils # (1.3-7.7) k/uL Lymphocytes # (1.0-4.8) k/uL Monocytes # (0-1.0) k/uL Eosinophils # (0-0.7) k/uL Basophils # (0-0.2) k/uL Hypochromasia Poikilocytosis Anisocytosis Macrocytosis PT (9.0-12.0) sec INR (<1.2) APTT (22.0-30.0) sec Sodium (137-145) mmol/L Potassium (3.5-5.1) mmol/L Chloride (98-107) mmol/L Carbon Dioxide (22-30) mmol/L Anion Gap mmol/L BUN (9-20) mg/dL Creatinine (0.66-1.25) mg/dL Est GFR (CKD-EPI)AfAm (>60 ml/min/1.73 sqM) Est GFR (CKD-EPI)NonAf (>60 ml/min/1.73 sqM) Glucose (74-99) mg/dL POC Glucose (mg/dL) 340 H (75-99) mg/dL POC Glu Tram Driver ID Chon, Eyvonne Calcium (8.4-10.2) mg/dL Phosphorus (2.5-4.5) mg/dL Magnesium (1.6-2.3) mg/dL Total Bilirubin (0.2-1.3) mg/dL AST (17-59) U/L ALT (21-72) U/L Alkaline Phosphatase (38-126) U/L CK-MB (CK-2) (0.0-2.4) ng/mL Troponin I (0.000-0.034) ng/mL NT-Pro-B Natriuret Pep pg/mL Total Protein (6.3-8.2) g/dL Albumin (3.5-5.0) g/dL Disposition Clinical Impression: Chronic renal failure, Hyperglycemia, CHF (congestive heart failure) Disposition: ADMITTED IP TO THIS [facility] Condition: Poor Is patient prescribed a controlled substance at d/c from ED?: No Referrals: Scott Aguilar Jr, [Primary Care Provider] - 1-2 days
[2017-12-28 06:05] LABS: Glucose,Whole Blood 340 mg/dL (75-99)
[2017-12-28] MEDS: LEVOTHYROXINE 25 MCG TAB PO SCH (06:38)
[2017-12-28] MEDS: CARVEDILOL 12.5 MG TAB PO SCH ×2 (06:38→17:30)
[2017-12-28] MEDS: SEVELAMER 800 MG TAB PO SCH ×4 (06:43→20:13)
[2017-12-28] MEDS: CALCIUM ACETATE 667 MG CAP PO SCH ×5 (06:43→23:25)
[2017-12-28] MEDS: INSULIN ASPART 100 UNIT/ML 1 ML 10 ML VIAL SQ SCH ×6 (06:44→21:04)
[2017-12-28] MEDS ORDERED: HYDROcodone/APAP 5-325MG 1 EACH TAB PO PRN ×2 (07:31)
[2017-12-28] MEDS ORDERED: FAMOTIDINE 20 MG TAB PO SCH (09:00)
[2017-12-28] MEDS: HEPARIN SODIUM,PORCINE 5,000 UNIT/ML 1 ML VIAL SQ SCH ×3 (09:03→22:58)
[2017-12-28] MEDS: levETIRAcetam 500 MG TAB PO SCH ×2 (09:05→20:13)
[2017-12-28] MEDS: SPIRONOLACTONE 25 MG TAB PO SCH (09:05)
[2017-12-28] MEDS: GABAPENTIN 300 MG CAP PO SCH ×3 (09:06→21:04)
[2017-12-28] MEDS: hydrALAZINE HCL 50 MG TAB PO SCH ×3 (09:06→21:04)
[2017-12-28] MEDS: LOSARTAN 50 MG TAB PO SCH ×2 (09:06→20:13)
[2017-12-28] MEDS: amLODIPine 10 MG TAB PO SCH (09:06)
[2017-12-28] MEDS: DIVALPROEX ER 500 MG TAB.ER.24H PO SCH (09:06)
[2017-12-28] MEDS: FUROSEMIDE 80 MG TAB PO SCH ×2 (09:06→20:13)
[2017-12-28] MEDS: acetaZOLAMIDE 250 MG TAB PO SCH ×2 (09:06→20:12)
[2017-12-28] MEDS: THIAMINE 100 MG TAB PO SCH (09:06)
[2017-12-28] MEDS: AMIODARONE 200 MG TAB PO SCH ×2 (09:07→20:13)
[2017-12-28] MEDS: predniSONE 10 MG TAB PO SCH (10:11)
[2017-12-28] MEDS: COLCHICINE 0.6 MG EACH PO SCH ×2 (10:11→20:13)
--- NOTE | 2017-12-28 10:26 | P.HPIM ---
History of Present Illness H&P Date: 12/28/17 Chief Complaint: SOB, right leg swelling 47-year-old male who presented to the emergency room with a chief complaint of shortness of breath and right lower extremity edema. Patient reports he has not missed any dialysis sessions. Patient is on a M, W, F schedule. He states he underwent dialysis yesterday and completed the entire session without difficulty. Patient unable to recall the total amount of fluid removed. He complains of generalized aches especially in his hands and fingers, which are very edematous. He states he began having shortness of breath and increased swelling of his right lower extremity over the past few days. He has been wrapping his leg with an natanael bandage. Patient denies chest pain or pressure. Denies cough. Denies fever or chills. Patient reports his blood sugars have been elevated at home. He reports taking his insulin as prescribed. He denies non-compliance with his diet and reports avoiding foods high in sugar. The patient has a history of coronary artery disease, diabetes, DVT, GERD, hypertension, hyperlipidemia, myocardial infarction, peripheral vascular disease with a left [id number] amputation. 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 He also has a chronic wound on his right foot and follows with Dr. Sy in the wound center. Patient reports he was seeing Dr. Sy every two weeks. However, he has not seen Dr. Sy in almost a month due to his hospitalizations and patient having to reschedule his appointments. He reports he was scheduled to see Dr. Sy today in the wound care center. The patient was recently hospitalized from 12/19/2017 until 12/22/2017 for fluid overload and CHF secondary to not completing his entire dialysis session and gout of his right foot. The patient was discharged home in stable condition. The patient was prescribed a prednisone taper at the time of discharge for his gout (50mg x 5 days, 40mg x 4 days, 30mg x 3 days, 20mg x 3 days, and 10mg x 3 days). Patient states he started the prednisone on the day he was discharged which makes today the first day of his 30mg regimen. Patient reports improvement in his gout symptoms. The patient was also evaluated by Dr. Dodson during that admission for persistent diarrhea. C-diff was negative. Patient was to undergo EGD and colonoscopy inpatient but refused to continue his prep. Patient was then scheduled for outpatient testing on 12/30/2017. Patient reports he called Dr. Faith office to inform them of his hospitalization and now he is planned for EGD and colonoscopy 01/06/2018. The patient has had multiple admissions in 2018 including a hospitalization from 11/18/2017 until 11/24/2017 secondary to fluid overload secondary to missed dialysis session an acute hypertensive emergency. The patient was also hospitalized from 10/25/2017 until 11/08/2017. During that admission, patient had been having difficulty with his PD catheter. He underwent shuntogram which revealed significant fibrin sheath around the catheter. Dr. Adorno performed laparoscopic repositioning of peritoneal dialysis catheter. The patient was started on low volume peritoneal dialysis. When his peritoneal dialysis volumes were increased, the patient began having difficulty with abdominal pain and nausea with peritoneal dialysis exchanges. The patient decided to stop PD and continue on hemodialysis. His schedule is M, W, F. He has a right chest wall dialysis catheter secondary to peritonitis in 2016 when his peritoneal dialysis catheter had to be removed and he was placed on hemodialysis at that time. Chest x-ray: Pulmonary vascular congestion. This is slightly improved compared to old exam. There is improved inspiration compared to last exam. Laboratory data: WBC 6.1. Hemoglobin 10.8. Platelet count 186. Sodium 132. Potassium 4.1. BUN 31. Creatinine 3.30. Glucose 535. Total bilirubin 1.4. AST 143. ALT 196. Alkaline phosphatase 216. CK-MB 6.6. Troponin 0.045 BNP: 126,000 The patient was admitted to the hospital under the care of Dr. Aguilar. Consultations were placed to nephrology. Review of Systems Those systems with pertinent positive or pertinent negative responses have been documented in the HPI Past Medical History Past Medical History: Diabetes Mellitus, Diabetes Mellitus, Dialysis, Deep Vein Thrombosis (DVT), GERD/Reflux, Hyperlipidemia, Hypertension, Myocardial Infarction ([place]), Renal Disease, Seizure Disorder, Thyroid Disorder, Vascular Disorder Additional Past Medical History / Comment(s): End stage renal disease on hemodialysis, previous history of peritoneal dialysis, currently undergoing hemodialysis MWF, diabetic nephropathy, diabetic retinopathy in addition to diabetic gastroparesis, chronic anemia, previous history of a upper extremity DVT related to IV lines, below-knee amputation on the left, peripheral vascular disease, hypothyroidism, peripheral vascular disease, seizure disorder, coronary artery disease, previous myocardial infarction, acid reflux, hyperlipidemia, MRSA wound infections, right lower extremity leg and foot ulcerationwagner grade II diabetic ulcer plantar R foot and lateral R leg, MRSA R foot. Last Myocardial Infarction Date:: 2012 History of Any Multi-Drug Resistant Organisms: MRSA Date of last positivie culture/infection: 07/01/17 MDRO Source:: RIGHT FOOT Past Surgical History: Orthopedic Surgery Additional Past Surgical History / Comment(s): HD catheter, I&D R foot/lateral R leg, amputation right foot toes GEORGE CATARACTS,VITRECTOMY,GEORGE RETINAL SX Past Anesthesia/Blood Transfusion Reactions: No Reported Reaction Additional Past Anesthesia/Blood Transfusion Reaction / Comment(s): Pt has received blood without reaction. Past Psychological History: No Psychological Hx Reported, Anxiety Smoking Status: Never smoker Past Alcohol Use History: None Reported Past Drug Use History: None Reported - Past Family History Father Family Medical History: Cancer Additional Family Medical History / Comment(s): CANCER FROM [employer] Mother History Unknown: Yes Family Medical History: Cancer, Supraventricular Tachycardia (SVT) Additional Family Medical History / Comment(s): LUNG CANCER(SMOKER) Medications and Allergies Home Medications Medication Instructions Recorded Confirmed Type Calcium Acetate [PhosLo] 667 mg PO 5XD 04/08/15 12/28/17 History Insulin Glargine [Lantus] 10 unit SQ HS 04/08/15 12/28/17 History Sevelamer [Renvela] 800 mg PO QID 01/20/16 12/28/17 History Tamsulosin [Flomax] 0.8 mg PO PC-SUPPER 05/20/17 12/28/17 History Thiamine [Vitamin B-1] 100 mg PO DAILY 05/20/17 12/28/17 History Gabapentin [Neurontin] 300 mg PO TID 08/06/17 12/28/17 History Insulin Aspart [NovoLOG Flexpen] See Protocol SQ TID-W/MEALS 08/06/17 12/28/17 History acetaZOLAMIDE [Diamox] 125 mg PO BID #60 tab 11/08/17 12/28/17 Rx Carvedilol [Coreg*] 12.5 mg PO BID-W/MEALS #60 tab 11/24/17 12/28/17 Rx Losartan [Cozaar] 50 mg PO BID #60 tab 11/24/17 12/28/17 Rx Colchicine [Colcrys] 0.6 mg PO BID 12/19/17 12/28/17 History Divalproex ER [Depakote ER] 500 mg PO DAILY 12/19/17 12/28/17 History Famotidine 20 mg PO BID 12/19/17 12/28/17 History Furosemide [Lasix] 80 mg PO BID 12/19/17 12/28/17 History Spironolactone 50 mg PO DAILY 12/19/17 12/28/17 History amLODIPine [Norvasc] 10 mg PO DAILY 12/19/17 12/28/17 History levETIRAcetam [Keppra] 500 mg PO Q12HR 12/19/17 12/28/17 History Amiodarone [Cordarone] 200 mg PO BID tab 12/22/17 12/28/17 Rx Levothyroxine Sodium [Synthroid] 25 mcg PO DAILY@0630 tab 12/22/17 12/28/17 Rx Loperamide [Imodium] 2 mg PO QID PRN #30 cap 12/22/17 12/28/17 Rx hydrALAZINE HCL [Apresoline] 50 mg PO TID #90 tab 12/22/17 12/28/17 Rx predniSONE See Taper PO DIRECTED #45 tab 12/22/17 12/28/17 Rx Allergies Allergy/AdvReac Type Severity Reaction Status Date / Time lisinopril Allergy Rash/Hives Verified 12/28/17 07:29 Sulfa (Sulfonamide Allergy Rash/Hives Verified 12/28/17 07:29 Antibiotics) Physical Exam Vitals: Vital Signs Temp Pulse Pulse Resp BP BP Pulse Ox 12/28/17 03:31 89 18 12/28/17 03:28 173/95 12/28/17 03:05 97.0 F L 89 18 207/97 94 L 12/28/17 02:44 98.3 F 86 18 165/87 96 12/28/17 01:39 78 20 168/81 95 12/28/17 00:45 87 18 183/89 95 12/28/17 00:08 98 20 203/107 95 12/27/17 23:38 98.6 F 94 16 212/120 96 Intake and Output 12/27/17 12/28/17 12/28/17 22:59 06:59 14:59 Other: # Voids 1 Weight 96.2 kg GENERAL: This is a 47-year-old male in no apparent distress at the time of examination. Pleasant and cooperative. HEENT: Head is atraumatic, normocephalic. Pupils are equal, round, and reactive to light. Sclerae anicteric. Conjunctivae are clear. Mucus membranes of the mouth are moist. Neck is supple. RESPIRATORY: Diminished with rales present to bilateral bases. No use of accessory muscles. Patient maintaining oxygen saturation greater than 92% on room air. No chest wall tenderness is noted on palpation or with deep breathing. CARDIOVASCULAR: Dialysis catheter noted to right chest wall. Regular rate and rhythm. S1 and S2 noted. No systolic or diastolic murmur auscultated. No JVD noted. No S3 or S4 noted. GASTROINTESTINAL: Abdomen soft and round. Normal active bowel sounds auscultated x 4 quadrants. No pain or tenderness noted upon palpation. INTEGUMENTARY: Erythema noted to left knee, which patient reports is chronic and reports history of psoriasis and also states he is irritated because of trying to get his prosthesis on and off. No cyanosis. No jaundice. No rashes noted. No cellulitis noted. EXTREMITIES: 4+ pitting edema to right lower extremity. Nonpitting edema noted to bilateral hands and fingers. Left BKA noted. Partial right foot amputation. Right foot with dressing noted to plantar surface. NEUROLOGIC: Cranial nerves II-XII intact. PSYCHIATRIC: Awake, alert, and oriented X 3. Appropriate affect. Intact judgement and insight. Results CBC & Chem 7: 12/27/17 23:53 12/27/17 23:53 Labs: Abnormal Lab Results - Last 24 Hours (Table) 12/27/17 12/27/17 12/27/17 Range/Units 23:53 23:53 23:53 RBC 3.90 L (4.30-5.90) m/uL Hgb 10.8 L (13.0-17.5) gm/dL Hct 35.1 L (39.0-53.0) % MCHC 30.7 L (31.0-37.0) g/dL RDW 23.0 H (11.5-15.5) % Lymphocytes # 0.1 L (1.0-4.8) k/uL APTT (22.0-30.0) sec Sodium 132 L (137-145) mmol/L Chloride 91 L (98-107) mmol/L BUN 31 H (9-20) mg/dL Creatinine 3.30 H (0.66-1.25) mg/dL Glucose 535 H* (74-99) mg/dL POC Glucose (mg/dL) (75-99) mg/dL Total Bilirubin 1.4 H (0.2-1.3) mg/dL AST 143 H (17-59) U/L ALT 196 H (21-72) U/L Alkaline Phosphatase 216 H (38-126) U/L CK-MB (CK-2) 6.6 H* (0.0-2.4) ng/mL Troponin I 0.045 H* (0.000-0.034) ng/mL 12/27/17 12/28/17 12/28/17 Range/Units 23:53 01:40 06:04 RBC (4.30-5.90) m/uL Hgb (13.0-17.5) gm/dL Hct (39.0-53.0) % MCHC (31.0-37.0) g/dL RDW (11.5-15.5) % Lymphocytes # (1.0-4.8) k/uL APTT 19.4 L (22.0-30.0) sec Sodium (137-145) mmol/L Chloride (98-107) mmol/L BUN (9-20) mg/dL Creatinine (0.66-1.25) mg/dL Glucose (74-99) mg/dL POC Glucose (mg/dL) 458 H 340 H (75-99) mg/dL Total Bilirubin (0.2-1.3) mg/dL AST (17-59) U/L ALT (21-72) U/L Alkaline Phosphatase (38-126) U/L CK-MB (CK-2) (0.0-2.4) ng/mL Troponin I (0.000-0.034) ng/mL Thrombosis Risk Factor Assmnt - Choose All That Apply Any of the Below Risk Factors Present?: Yes Each Factor Represents 1 point: Obesity (BMI >25) Other Risk Factors: No Other congenital or acquired thrombophilia - If yes, enter type in comment: No Thrombosis Risk Factor Assessment Total Risk Factor Score: 1 Thrombosis Risk Factor Assessment Level: Low Risk Assessment and Plan Plan: ASSESSMENT: Chronic kidney disease, end-stage, currently on hemodialysis M, W, F Acute exacerbation of diastolic congestive heart failure, due to fluid overload , secondary to above Recent hospitalization, December 2017, secondary to fluid overload secondary to not completing entire dialysis session Recent diagnosis of gout of right lower extremity, currently completing prednisone taper Recent bout of persistent diarrhea, patient scheduled for outpatient colonoscopy this month with Dr. Dodson/Julisa Elevated LFTs, suspect secondary to CHF/passive venous congestion Hypertension Peripheral vascular disease with history of left BKA and right partial foot amputation 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 Sy in the wound care center Diabetes mellitus, type II with diabetic retinopathy and diabetic neuropathy Hyperglycemia History of seizures Coronary artery disease with previous myocardial infarction History of MRSA infection of left lower extremity History of left upper extremity DVT History of gastroparesis Hypothyroidism Anemia of chronic disease secondary to CKD Hospitalization in November 2017 secondary to fluid overload secondary to missed dialysis session an acute hypertensive emergency. Hospitalization in October 2017 secondary to malfunctioning peritoneal dialysis catheter, which was removed and patient was transitioned back to hemodialysis Hospitalization in July 2017 for nausea and vomiting secondary to diabetic gastroparesis, patient signed out AMA Hospitalization in May 2017 for peritonitis, cultures positive for MSSA, PD catheter removed at that time and patient was transitioned to hemodialysis PLAN: Nephrology on consult. Appreciate recommendations and input. Patient to receive extra dialysis session today and then continue his normal schedule tomorrow Continue Natanael wrap to right lower extremity. Elevate extremity while in bed Continue patients prednisone taper. Patient starting first day of 30mg today (x 3 days) then decrease to 20mg x 3 days beginning on Wednesday12/31/2017 Pain control. [place] PRN. Will add morphine for breakthrough pain. Consult Dr. Sy as patient was scheduled to see him today in the wound center but has not seen him in a month due to scheduling and inpatient hospitalizations Continue novolog sliding scale ACHS. Will increase levemir to 20 units. Will add Novolog 5 units TID with meals. Home meds as appropriate Monitor labs GI prophylaxis: Pepcid 20mg PO BID DVT prophylaxis: Heparin 5000 units subcu every 8 hours Monitor vital signs and address as appropriate Discharge planning: Patient to return home when stable Further recommendations pending patient's course Nurse practitioner note has been reviewed by physician. Signing provider agrees with the documented findings, assessment, and plan of care.
[2017-12-28] MEDS: MORPHINE SULFATE 2 MG/ML SYRINGE IVP PRN ×3 (11:28→22:55)
[2017-12-28 11:50] LABS: Glucose,Whole Blood 198 mg/dL (75-99)
[2017-12-28 12:58] LABS: Hemoglobin A1C 7.3 % (4.0-6.0)
--- NOTE | 2017-12-28 15:29 | CONS ---
CONSULTATION REASON FOR CONSULTATION: End-stage renal disease. HISTORY OF PRESENT ILLNESS: The patient is a 47-year-old male who was admitted to the hospital with complaints of increasing swelling and shortness of breath. He had 4 L of ultrafiltration yesterday. However, it was not enough. The patient apparently gained a lot over the weekend. He denies any chest pain. No history of fever, chills, nausea, vomiting or abdominal pain. PAST MEDICAL HISTORY: End-stage renal disease, hypertension, anemia of chronic disease, peripheral vascular disease, history of gout, hyperlipidemia, coronary artery disease, history of DVT, and diabetic neuropathy and nephropathy and history of MRSA wound infection, status post right forefoot amputation. PAST SURGICAL HISTORY: PermCath placement, PD catheter insertion and removal, cataract surgery, vitrectomy, retinal surgery, amputation of the forefoot on the right side. SOCIAL HISTORY: Negative for smoking, drug abuse or alcohol abuse. MEDICATIONS: Medications at home prior to admission include PhosLo, insulin, Renvela, Flomax, vitamin D, Neurontin, insulin, Diamox, Depakote, , Cozaar, Coreg, Lasix, Pepcid, Norvasc, spironolactone, Keppra, Cordarone, Synthroid, Imodium, hydralazine, prednisone. ALLERGIES: Include LISINOPRIL AND SULFA. REVIEW OF SYSTEMS: As per HPI. Other systems negative. EXAMINATION: Patient is comfortable, awake, alert, oriented x3, not in any acute distress. Blood pressure is 183/104, heart rate is 72 per minute. He is afebrile. Examination of the heart: S1, S2. Examination lungs: Bilateral breath sounds are heard. Abdomen is soft, nontender. Exam is lower extremity shows edema 2+ bilaterally. Right forefoot is amputated. 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 LABS: Sodium 132, potassium 4.1, glucose was 535. Hemoglobin 10.8. ASSESSMENT: 1. End-stage renal disease, on hemodialysis on a Wednesday, Wednesday, Wednesday schedule. We will arrange for an extra treatment today and the patient will be dialyzed again tomorrow and start his regular day. 2. Severe hyperglycemia. Blood sugars have improved down from 535 to 198 now. 3. Fluid overload. The importance of avoiding excessive weight gains between treatment has been discussed with the patient. We will try for about 3.5 L tomorrow and again 3-4 L on Wednesday. 4. Hypertension, partly volume sensitive. Expect improvement with ultrafiltration. 5. Anemia of chronic disease. 6. History of gout, maintained on prednisone on tapering dose currently. 7. CKD mineral bone disorder. Patient is on Renvela at home, which we will continue. PLAN: Hemodialysis today as well as in a.m., increase UF as tolerated. MMODL / IJN: [id number] /
[2017-12-28 16:44] LABS: Glucose,Whole Blood 188 mg/dL (75-99)
[2017-12-28] MEDS: TAMSULOSIN 0.4 MG CAP.ER.24H PO SCH (17:30)
[2017-12-28] MEDS ORDERED: INSULIN DETEMIR 100 UNIT/ML 10 ML VIAL SQ SCH ×2 (21:00)
[2017-12-28 21:31] LABS: Glucose,Whole Blood 296 mg/dL (75-99)
--- NOTE | 2017-12-28 21:51 | P.CONS ---
History of Present Illness - Reason for Consult Consult date: 12/28/17 - Chief Complaint Increasing shortness of breath and increasing weight and fluid overload - History of Present Illness 47-year-old male is well-known to the infectious disease service because of the nonhealing ulceration to his right foot and is multiple bouts of sepsis. Most recent hospitalizations were related to the peritonitis from his infected peritoneal dialysis catheter. There is noted this eventually was removed and he has now been converted back to hemodialysis. He is on a routine Wednesday regimen. He relates despite this his fluid has been increasing has been having increasing edema and his blood sugars have been increasing. He is not clear on his ability to have fluid restriction. He routinely struggles with his diet. He's been followed for a nonhealing ulceration to the right foot plantar that is doing considerably better. He is at this time denying fevers chills rigors or sweats. He still feels very weak and short of breath but feels considerably better than prior. Any is able to ingest his dinner without nausea or emesis. He makes very little urine. It is noted that recently he was hospitalized for difficulties with volume overload and congestive heart failure as well as a bout of gout and was treated with steroid therapy. He does have some difficulties with his gastrointestinal tract at times with his gastroparesis he developed severe nausea and emesis which fortunately he has not a problem at this time, was having diarrhea and will have GI eval 01/06/2018. Review of Systems HEENT:Denies headache or acute visual change. Denies sinus or mouth discomforts. Denies neck stiffness or pain. Denies significant oral cavity pain. Denies difficulty on swallowing. Lungs: Denies significant shortness of breath, cough, sputum production, or hemoptysis. Cardiovascular: Denies significant shortness of breath, chest pain, chest wall pain, orthopnea, dyspnea on exertion, syncope Gastrointestinal:as per the HPI Musculoskeletal: denies significant myalgias or arthralgias. No new joint swelling. Denies new back pain. Skin: Denies new rash or lesions. No new ulcers or wounds are related.. Neuro: Denies headache or visual change. Denies any new onset weakness or difficulty with ambulation. Denies falls or seizures. Psychiatric:Denies anxiety or depression. Endocrine: this have fatigue and some weight loss Past Medical History Past Medical History: Diabetes Mellitus, Diabetes Mellitus, Dialysis, Deep Vein Thrombosis (DVT), GERD/Reflux, Hyperlipidemia, Hypertension, Myocardial Infarction (OR), Renal Disease, Seizure Disorder, Thyroid Disorder, Vascular Disorder Additional Past Medical History / Comment(s): End stage renal disease on hemodialysis, previous history of peritoneal dialysis, currently undergoing hemodialysis MWF, diabetic nephropathy, diabetic retinopathy in addition to diabetic gastroparesis, chronic anemia, previous history of a upper extremity DVT related to IV lines, below-knee amputation on the left, peripheral vascular disease, hypothyroidism, peripheral vascular disease, seizure disorder, coronary artery disease, previous myocardial infarction, acid reflux, hyperlipidemia, MRSA wound infections, right lower extremity leg and foot ulcerationwagner grade II diabetic ulcer plantar R foot and lateral R leg, MRSA R foot. Last Myocardial Infarction Date:: 2012 History of Any Multi-Drug Resistant Organisms: MRSA Year Discovered:: 07/01/17 MDRO Source:: RIGHT FOOT Past Surgical History: Orthopedic Surgery Additional Past Surgical History / Comment(s): HD catheter, I&D R foot/lateral R leg, amputation right foot toes GEORGE CATARACTS,VITRECTOMY,GEORGE RETINAL SX Past Anesthesia/Blood Transfusion Reactions: No Reported Reaction Additional Past Anesthesia/Blood Transfusion Reaction / Comm: Pt has received blood without reaction. Past Psychological History: No Psychological Hx Reported, Anxiety Smoking Status: Never smoker Past Alcohol Use History: None Reported Past Drug Use History: None Reported - Past Family History Father Family Medical History: Cancer Additional Family Medical History / Comment(s): CANCER FROM [employer] [place] Mother History Unknown: Yes Family Medical History: Cancer, Supraventricular Tachycardia (SVT) Additional Family Medical History / Comment(s): LUNG CANCER(SMOKER) Medications and Allergies Home Medications and Allergies Comment(s): Current Medications Hydrocodone Bitart/Acetaminophen (Minoa 5-325) 1 each PO Q4HR PRN PRN Reason: Pain Hydrocodone Bitart/Acetaminophen (Minoa 5-325) 2 each PO Q4HR PRN PRN Reason: Pain Last Admin: 12/28/17 09:07 Dose: 2 each Acetazolamide (Diamox) 125 mg PO BID [facility] Last Admin: 12/28/17 20:12 Dose: 125 mg Amiodarone HCl (Cordarone) 200 mg PO BID [facility] Last Admin: 12/28/17 20:13 Dose: 200 mg Amlodipine Besylate (Norvasc) 10 mg PO DAILY [facility] Last Admin: 12/28/17 09:06 Dose: 10 mg Calcium Acetate (Phoslo) 667 mg PO 5XD [facility] Last Admin: 12/28/17 20:12 Dose: 667 mg Carvedilol (Coreg) 12.5 mg PO BID-W/MEALS [facility] Last Admin: 12/28/17 17:30 Dose: 12.5 mg Colchicine (Colcrys) 0.6 mg PO BID [facility] Last Admin: 12/28/17 20:13 Dose: 0.6 mg Divalproex Sodium (Depakote Er) 500 mg PO DAILY [facility] Last Admin: 12/28/17 09:06 Dose: 500 mg Famotidine (Pepcid) 20 mg PO DAILY [facility] Furosemide (Lasix) 80 mg PO BID [facility] Last Admin: 12/28/17 20:13 Dose: 80 mg Gabapentin (Neurontin) 300 mg PO TID [facility] Last Admin: 12/28/17 21:04 Dose: 300 mg Heparin Sodium (Porcine) (Heparin) 5,000 unit SQ Q8HR [facility] Last Admin: 12/28/17 17:41 Dose: 5,000 unit Hydralazine HCl (Apresoline) 50 mg PO TID [facility] Last Admin: 12/28/17 21:04 Dose: 50 mg Insulin Aspart (Novolog) 0 unit SQ ACHS [facility] PRN Reason: Protocol Last Admin: 12/28/17 21:04 Dose: 5 unit Insulin Aspart (Novolog) 5 unit SQ AC-TID [facility] Last Admin: 12/28/17 17:38 Dose: 5 unit Insulin Detemir (Levemir) 20 unit SQ HS [facility] Last Admin: 12/28/17 21:04 Dose: 20 unit Levetiracetam (Keppra) 500 mg PO Q12HR [facility] Last Admin: 12/28/17 20:13 Dose: 500 mg Levothyroxine Sodium (Synthroid) 25 mcg PO DAILY@0630 [facility] Last Admin: 12/28/17 06:38 Dose: 25 mcg Loperamide HCl (Imodium) 2 mg PO QID PRN PRN Reason: Diarrhea Losartan Potassium (Cozaar) 50 mg PO BID [facility] Last Admin: 12/28/17 20:13 Dose: 50 mg Morphine Sulfate (Morphine Sulfate (Inj)) 4 mg IVP Q4H PRN PRN Reason: Pain/Discomfort Last Admin: 12/28/17 18:25 Dose: 4 mg Prednisone () 30 mg PO DAILY [facility] Stop: 12/30/17 09:01 Last Admin: 12/28/17 10:11 Dose: 30 mg Prednisone () 20 mg PO DAILY [facility] Stop: 01/02/18 09:01 Sevelamer Carbonate (Renvela) 800 mg PO ACHS [facility] Last Admin: 12/28/17 20:13 Dose: 800 mg Sodium Chloride (Saline Flush) 10 ml IV BID [facility] Last Admin: 12/28/17 21:06 Dose: 10 ml Spironolactone (Aldactone) 50 mg PO DAILY [facility] Last Admin: 12/28/17 09:05 Dose: 50 mg Tamsulosin HCl (Flomax) 0.8 mg PO PC-SUPPER [facility] Last Admin: 12/28/17 17:30 Dose: 0.8 mg Thiamine HCl (Vitamin B-1) 100 mg PO DAILY [facility] Last Admin: 12/28/17 09:06 Dose: 100 mg Home Medications Medication Instructions Recorded Confirmed Type Calcium Acetate [PhosLo] 667 mg PO 5XD 04/08/15 12/28/17 History Insulin Glargine [Lantus] 10 unit SQ HS 04/08/15 12/28/17 History Sevelamer [Renvela] 800 mg PO QID 01/20/16 12/28/17 History Tamsulosin [Flomax] 0.8 mg PO PC-SUPPER 05/20/17 12/28/17 History Thiamine [Vitamin B-1] 100 mg PO DAILY 05/20/17 12/28/17 History Gabapentin [Neurontin] 300 mg PO TID 08/06/17 12/28/17 History Insulin Aspart [NovoLOG Flexpen] See Protocol SQ TID-W/MEALS 08/06/17 12/28/17 History acetaZOLAMIDE [Diamox] 125 mg PO BID #60 tab 11/08/17 12/28/17 Rx Carvedilol [Coreg*] 12.5 mg PO BID-W/MEALS #60 tab 11/24/17 12/28/17 Rx Losartan [Cozaar] 50 mg PO BID #60 tab 11/24/17 12/28/17 Rx Colchicine [Colcrys] 0.6 mg PO BID 12/19/17 12/28/17 History Divalproex ER [Depakote ER] 500 mg PO DAILY 12/19/17 12/28/17 History Famotidine 20 mg PO BID 12/19/17 12/28/17 History Furosemide [Lasix] 80 mg PO BID 12/19/17 12/28/17 History Spironolactone 50 mg PO DAILY 12/19/17 12/28/17 History amLODIPine [Norvasc] 10 mg PO DAILY 12/19/17 12/28/17 History levETIRAcetam [Keppra] 500 mg PO Q12HR 12/19/17 12/28/17 History Amiodarone [Cordarone] 200 mg PO BID tab 12/22/17 12/28/17 Rx Levothyroxine Sodium [Synthroid] 25 mcg PO DAILY@0630 tab 12/22/17 12/28/17 Rx Loperamide [Imodium] 2 mg PO QID PRN #30 cap 12/22/17 12/28/17 Rx hydrALAZINE HCL [Apresoline] 50 mg PO TID #90 tab 12/22/17 12/28/17 Rx predniSONE See Taper PO DIRECTED #45 tab 12/22/17 12/28/17 Rx Allergies Allergy/AdvReac Type Severity Reaction Status Date / Time lisinopril Allergy Rash/Hives Verified 12/28/17 07:29 Sulfa (Sulfonamide Allergy Rash/Hives Verified 12/28/17 07:29 Antibiotics) Physical Exam Vitals: Vital Signs Temp Pulse Pulse Resp BP BP Pulse Ox 12/28/17 16:00 97 F L 73 18 168/84 97 12/28/17 12:00 97 F L 72 18 183/104 95 12/28/17 08:00 96.7 F L 72 16 171/90 95 12/28/17 03:31 89 18 12/28/17 03:28 173/95 12/28/17 03:05 97.0 F L 89 18 207/97 94 L 12/28/17 02:44 98.3 F 86 18 165/87 96 12/28/17 01:39 78 20 168/81 95 12/28/17 00:45 87 18 183/89 95 12/28/17 00:08 98 20 203/107 95 12/27/17 23:38 98.6 F 94 16 212/120 96 Intake and Output 06/19/18 06/19/18 06/19/18 06:59 14:59 22:59 Intake Total 318 222 Balance 318 222 Intake: Oral 318 222 Other: # Voids 1 2 Weight 96.2 kg 96.2 kg HEENT: Anicteric conjunctiva are pink and moist nasal mucosa grossly intact without significant lesions, there is no thrush. Neck: The neck is supple without significant lymphadenopathy or thyromegaly. Lungs: Good bilateral air entry without significant crackles or wheezing. There is no significant bronchial sounds. There is no egophony or dullness. Heart: Regular rate and rhythm with an audible S1-S2, no S3 no S4. There is no significant murmur click or rub, PMI was nondisplaced. Abdomen: the abdomen is soft his minimal tenderness in the epigastrium. No guarding or rebound. No palpable masses or organomegaly. Extremities: The upper extremities have excellent pulses they are symmetric, no significant petechiae or telangiectasia. No splinter hemorrhages were noted. residual limb to the left is evidence of dry skin but no open ulcerations are seen. Right lower extremity ulceration of the foot has resolved but his extensive edema to the lower extremity, there is a bit of rash on to the residual limb of the left no opening or drainage is noted Results CBC & Chem 7: 12/27/17 23:53 12/27/17 23:53 Labs: Abnormal Lab Results - Last 24 Hours (Table) 12/27/17 12/27/17 12/27/17 Range/Units 23:53 23:53 23:53 RBC 3.90 L (4.30-5.90) m/uL Hgb 10.8 L (13.0-17.5) gm/dL Hct 35.1 L (39.0-53.0) % MCHC 30.7 L (31.0-37.0) g/dL RDW 23.0 H (11.5-15.5) % Lymphocytes # 0.1 L (1.0-4.8) k/uL APTT (22.0-30.0) sec Sodium 132 L (137-145) mmol/L Chloride 91 L (98-107) mmol/L BUN 31 H (9-20) mg/dL Creatinine 3.30 H (0.66-1.25) mg/dL Glucose 535 H* (74-99) mg/dL POC Glucose (mg/dL) (75-99) mg/dL Hemoglobin A1c (4.0-6.0) % Total Bilirubin 1.4 H (0.2-1.3) mg/dL AST 143 H (17-59) U/L ALT 196 H (21-72) U/L Alkaline Phosphatase 216 H (38-126) U/L CK-MB (CK-2) 6.6 H* (0.0-2.4) ng/mL Troponin I 0.045 H* (0.000-0.034) ng/mL 12/27/17 12/27/17 12/28/17 Range/Units 23:53 23:53 01:40 RBC (4.30-5.90) m/uL Hgb (13.0-17.5) gm/dL Hct (39.0-53.0) % MCHC (31.0-37.0) g/dL RDW (11.5-15.5) % Lymphocytes # (1.0-4.8) k/uL APTT 19.4 L (22.0-30.0) sec Sodium (137-145) mmol/L Chloride (98-107) mmol/L BUN (9-20) mg/dL Creatinine (0.66-1.25) mg/dL Glucose (74-99) mg/dL POC Glucose (mg/dL) 458 H (75-99) mg/dL Hemoglobin A1c 7.3 H (4.0-6.0) % Total Bilirubin (0.2-1.3) mg/dL AST (17-59) U/L ALT (21-72) U/L Alkaline Phosphatase (38-126) U/L CK-MB (CK-2) (0.0-2.4) ng/mL Troponin I (0.000-0.034) ng/mL 12/28/17 12/28/17 12/28/17 Range/Units 06:04 11:40 16:36 RBC (4.30-5.90) m/uL Hgb (13.0-17.5) gm/dL Hct (39.0-53.0) % MCHC (31.0-37.0) g/dL RDW (11.5-15.5) % Lymphocytes # (1.0-4.8) k/uL APTT (22.0-30.0) sec Sodium (137-145) mmol/L Chloride (98-107) mmol/L BUN (9-20) mg/dL Creatinine (0.66-1.25) mg/dL Glucose (74-99) mg/dL POC Glucose (mg/dL) 340 H 198 H 188 H (75-99) mg/dL Hemoglobin A1c (4.0-6.0) % Total Bilirubin (0.2-1.3) mg/dL AST (17-59) U/L ALT (21-72) U/L Alkaline Phosphatase (38-126) U/L CK-MB (CK-2) (0.0-2.4) ng/mL Troponin I (0.000-0.034) ng/mL Laboratory Results WBC 6.1 k/uL (3.8-10.6) 12/27/17 23:53 RBC 3.90 m/uL (4.30-5.90) L 12/27/17 23:53 Hgb 10.8 gm/dL (13.0-17.5) L 12/27/17 23:53 Hct 35.1 % (39.0-53.0) L 12/27/17 23:53 MCV 89.9 fL (80.0-100.0) 12/27/17 23:53 MCH 27.6 pg (25.0-35.0) 12/27/17 23:53 MCHC 30.7 g/dL (31.0-37.0) L 12/27/17 23:53 RDW 23.0 % (11.5-15.5) H 12/27/17 23:53 Plt Count 186 k/uL (150-450) 12/27/17 23:53 Neutrophils % 91 % 12/27/17 23:53 Lymphocytes % 2 % 12/27/17 23:53 Monocytes % 6 % 12/27/17 23:53 Eosinophils % 1 % 12/27/17 23:53 Basophils % 0 % 12/27/17 23:53 Neutrophils # 5.5 k/uL (1.3-7.7) 12/27/17 23:53 Lymphocytes # 0.1 k/uL (1.0-4.8) L 12/27/17 23:53 Monocytes # 0.3 k/uL (0-1.0) 12/27/17 23:53 Eosinophils # 0.1 k/uL (0-0.7) 12/27/17 23:53 Basophils # 0.0 k/uL (0-0.2) 12/27/17 23:53 Hypochromasia Moderate 12/27/17 23:53 Poikilocytosis Slight 12/27/17 23:53 Anisocytosis Moderate 12/27/17 23:53 Macrocytosis Slight 12/27/17 23:53 PT 10.2 sec (9.0-12.0) 12/27/17 23:53 INR 1.0 (<1.2) 12/27/17 23:53 APTT 19.4 sec (22.0-30.0) L 12/27/17 23:53 Sodium 132 mmol/L (137-145) L 12/27/17 23:53 Potassium 4.1 mmol/L (3.5-5.1) 12/27/17 23:53 Chloride 91 mmol/L (98-107) L 12/27/17 23:53 Carbon Dioxide 27 mmol/L (22-30) 12/27/17 23:53 Anion Gap 14 mmol/L 12/27/17 23:53 BUN 31 mg/dL (9-20) H 12/27/17 23:53 Creatinine 3.30 mg/dL (0.66-1.25) H 12/27/17 23:53 Est GFR (CKD-EPI)AfAm 25 (>60 ml/min/1.73 sqM) 12/27/17 23:53 Est GFR (CKD-EPI)NonAf 21 (>60 ml/min/1.73 sqM) 12/27/17 23:53 Glucose 535 mg/dL (74-99) H* 12/27/17 23:53 POC Glucose (mg/dL) 296 mg/dL (75-99) H 12/28/17 21:00 POC Glu [employer] Manager GAYATHRI Jessi Sebastian 12/28/17 21:[address] Glu mg/dL 163 12/27/17 23:53 Hemoglobin A1c 7.3 % (4.0-6.0) H 12/27/17 23:53 Calcium 8.4 mg/dL (8.4-10.2) 12/27/17 23:53 Phosphorus 3.1 mg/dL (2.5-4.5) 12/27/17 23:53 Magnesium 1.8 mg/dL (1.6-2.3) 12/27/17 23:53 Total Bilirubin 1.4 mg/dL (0.2-1.3) H 12/27/17 23:53 AST 143 U/L (17-59) H 12/27/17 23:53 ALT 196 U/L (21-72) H 12/27/17 23:53 Alkaline Phosphatase 216 U/L (38-126) H 12/27/17 23:53 CK-MB (CK-2) 6.6 ng/mL (0.0-2.4) H* 12/27/17 23:53 Troponin I 0.045 ng/mL (0.000-0.034) H* 12/27/17 23:53 NT-Pro-B Natriuret Pep [id number] pg/mL 12/27/17 23:53 Total Protein 6.3 g/dL (6.3-8.2) 12/27/17 23:53 Albumin 3.8 g/dL (3.5-5.0) 12/27/17 23:53 Assessment and Plan (1) Charcot's joint of foot in type 1 diabetes mellitus Current Visit: No Status: Acute Priority: Medium Code(s): E10.610 - TYPE 1 DIABETES MELLITUS W DIABETIC NEUROPATHIC ARTHROPATHY SNOMED Code(s): 63990756 (2) End stage renal disease on dialysis Current Visit: No Status: Chronic Code(s): N18.6 - END STAGE RENAL DISEASE SNOMED Code(s): 167124671 (3) Ulcer of right foot Narrative/Plan: 47-year-old male well known to the service for his many hospitalizations over this last year, the most recent was related to the infection of his peritoneal dialysis catheter. Surgery remove the catheter and vascular surgery placed his access for his hemodialysis in the right anterior chest wall. He is in a relatively well with dialysis and appears to be having difficulties with his diet and fluid intake. Fortunately this time does not appear to have an acute infection in the significant ulceration that was right foot plantar has healed. The DuoDERM will be applied to protect the site. Is a minimal rash on the left lower extremity and some triamcinolone cream will be applied this evening, would need to be wiped away before the sleep to be applied so that his prosthesis can be worn. He recently did have a flare of gout and has been treated with prednisone likely worsening his hyperglycemia, and the secondary fluid retention that is occurring. Hopefully as this tapers he will have further improvement, but does need to have improved dietary compliance. Current Visit: Yes Status: Acute Code(s): L97.519 - NON-PRS CHRONIC ULCER OTH PRT RIGHT FOOT W UNSP SEVERITY SNOMED Code(s): 29489689
[2017-12-29] MEDS: MORPHINE SULFATE 2 MG/ML SYRINGE IVP PRN ×3 (05:01→21:24)
[2017-12-29 06:09] LABS: Glucose,Whole Blood 193 mg/dL (75-99)
[2017-12-29] MEDS: CALCIUM ACETATE 667 MG CAP PO SCH ×5 (06:30→23:21)
[2017-12-29] MEDS: CARVEDILOL 12.5 MG TAB PO SCH ×2 (06:30→17:21)
[2017-12-29] MEDS: LEVOTHYROXINE 25 MCG TAB PO SCH (06:30)
[2017-12-29] MEDS: SEVELAMER 800 MG TAB PO SCH ×4 (06:30→20:21)
[2017-12-29] MEDS: INSULIN ASPART 100 UNIT/ML 1 ML 10 ML VIAL SQ SCH ×7 (07:01→21:25)
[2017-12-29] MEDS: levETIRAcetam 500 MG TAB PO SCH ×2 (08:45→20:22)
[2017-12-29] MEDS: COLCHICINE 0.6 MG EACH PO SCH ×2 (08:45→20:21)
[2017-12-29] MEDS: HEPARIN SODIUM,PORCINE 5,000 UNIT/ML 1 ML VIAL SQ SCH ×3 (08:45→23:21)
[2017-12-29] MEDS: FUROSEMIDE 80 MG TAB PO SCH ×2 (08:45→20:22)
[2017-12-29] MEDS: hydrALAZINE HCL 50 MG TAB PO SCH ×3 (08:45→21:25)
[2017-12-29] MEDS: predniSONE 10 MG TAB PO SCH (08:46)
[2017-12-29] MEDS: LOSARTAN 50 MG TAB PO SCH ×2 (08:46→20:22)
[2017-12-29] MEDS: FAMOTIDINE 20 MG TAB PO SCH (08:46)
[2017-12-29] MEDS: SPIRONOLACTONE 25 MG TAB PO SCH (08:46)
[2017-12-29] MEDS: AMIODARONE 200 MG TAB PO SCH ×2 (08:46→20:22)
[2017-12-29] MEDS: DIVALPROEX ER 500 MG TAB.ER.24H PO SCH (08:47)
[2017-12-29] MEDS: amLODIPine 10 MG TAB PO SCH (08:47)
[2017-12-29] MEDS: THIAMINE 100 MG TAB PO SCH (08:47)
[2017-12-29] MEDS: GABAPENTIN 300 MG CAP PO SCH ×3 (08:47→21:25)
[2017-12-29] MEDS: acetaZOLAMIDE 250 MG TAB PO SCH ×2 (08:47→20:22)
--- NOTE | 2017-12-29 10:42 | P.PN ---
Subjective Progress Note Date: 12/29/17 47-year-old male who presented to the emergency room with a chief complaint of shortness of breath and right lower extremity edema. Patient reports he has not missed any dialysis sessions. Patient is on a M, W, F schedule. He states he underwent dialysis yesterday and completed the entire session without difficulty. Patient unable to recall the total amount of fluid removed. He complains of generalized aches especially in his hands and fingers, which are very edematous. He states he began having shortness of breath and increased swelling of his right lower extremity over the past few days. He has been wrapping his leg with an natanael bandage. Patient denies chest pain or pressure. Denies cough. Denies fever or chills. Patient reports his blood sugars have been elevated at home. He reports taking his insulin as prescribed. He denies non-compliance with his diet and reports avoiding foods high in sugar. The patient has a history of coronary artery disease, diabetes, DVT, GERD, hypertension, hyperlipidemia, myocardial infarction, peripheral vascular disease with a left xeene-twc-spoe amputation. 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 He also has a chronic wound on his right foot and follows with Dr. Sy in the wound center. Patient reports he was seeing Dr. Sy every two weeks. However, he has not seen Dr. Sy in almost a month due to his hospitalizations and patient having to reschedule his appointments. He reports he was scheduled to see Dr. Sy today in the wound care center. The patient was recently hospitalized from 12/19/2017 until 12/22/2017 for fluid overload and CHF secondary to not completing his entire dialysis session and gout of his right foot. The patient was discharged home in stable condition. The patient was prescribed a prednisone taper at the time of discharge for his gout (50mg x 5 days, 40mg x 4 days, 30mg x 3 days, 20mg x 3 days, and 10mg x 3 days). Patient states he started the prednisone on the day he was discharged which makes today the first day of his 30mg regimen. Patient reports improvement in his gout symptoms. The patient was also evaluated by Dr. Dodson during that admission for persistent diarrhea. C-diff was negative. Patient was to undergo EGD and colonoscopy inpatient but refused to continue his prep. Patient was then scheduled for outpatient testing on 12/30/2017. Patient reports he called Dr. Faith office to inform them of his hospitalization and now he is planned for EGD and colonoscopy 01/06/2018. The patient has had multiple admissions in 2018 including a hospitalization from 11/18/2017 until 11/24/2017 secondary to fluid overload secondary to missed dialysis session an acute hypertensive emergency. The patient was also hospitalized from 10/25/2017 until 11/08/2017. During that admission, patient had been having difficulty with his PD catheter. He underwent shuntogram which revealed significant fibrin sheath around the catheter. Dr. Adorno performed laparoscopic repositioning of peritoneal dialysis catheter. The patient was started on low volume peritoneal dialysis. When his peritoneal dialysis volumes were increased, the patient began having difficulty with abdominal pain and nausea with peritoneal dialysis exchanges. The patient decided to stop PD and continue on hemodialysis. His schedule is M, W, F. He has a right chest wall dialysis catheter secondary to peritonitis in 2016 when his peritoneal dialysis catheter had to be removed and he was placed on hemodialysis at that time. Chest x-ray: Pulmonary vascular congestion. This is slightly improved compared to old exam. There is improved inspiration compared to last exam. Laboratory data: WBC 6.1. Hemoglobin 10.8. Platelet count 186. Sodium 132. Potassium 4.1. BUN 31. Creatinine 3.30. Glucose 535. Total bilirubin 1.4. AST 143. ALT 196. Alkaline phosphatase 216. CK-MB 6.6. Troponin 0.045 BNP: 126,000 The patient was admitted to the hospital under the care of Dr. Aguilar. Consultations were placed to nephrology. 12/29/2017 Patient seen and examined at the bedside. Patient states he underwent dialysis yesterday and 3L was removed. Patient reports he is going to have dialysis today with a goal of 3.5 L and an extra session tomorrow with a goal of 3 L, and then will resume his normal schedule on Wednesday. Patient was evaluated yesterday by Dr. Sy for chronic foot wound. Dr. Sy recommends continuing DuoDerm to plantar surface. Dr. Sy also recommends Triamcinolone cream to left stump. Patient's blood sugars remain elevated, but improved since yesterday. Patient reports he is having a lot of stress and anxiety in his life. He expresses that a lot of things have happened in his past and states he made a lot of bad decisions. He did not elaborate any further on this but states "I feel so stressed out and am always worrying about things. I feel like I can not move on with my life with all these thoughts constantly running through my mind". Patient states he is not depressed. He denies suicidal or homicidal ideations. He denies auditory or visual hallucinations. Patient states he did see a counselor when he was in his 20s after his parents were diagnosed with cancer. The patient is requesting consultation to speak with a psychiatrist. Objective - Vital Signs Vital signs: Vital Signs Temp 97.2 F L 12/29/17 08:37 Pulse 75 12/29/17 08:37 Resp 16 12/29/17 08:37 BP 183/100 12/29/17 08:37 Pulse Ox 94 L 12/29/17 08:37 Intake & Output 12/28/17 12/29/17 12/29/17 18:59 06:59 18:59 Intake Total 540 20 716 Balance 540 20 716 Weight 96.2 kg 94.7 kg Intake: IV 20 0.9 20 Oral 540 716 Other: Voiding Method Toilet Toilet # Voids 2 2 - Exam GENERAL: This is a 47-year-old male in no apparent distress at the time of examination. Pleasant and cooperative. HEENT: Head is atraumatic, normocephalic. Pupils are equal, round, and reactive to light. Sclerae anicteric. Conjunctivae are clear. Mucus membranes of the mouth are moist. Neck is supple. RESPIRATORY: Diminished with rales present to bilateral bases. No use of accessory muscles. Patient maintaining oxygen saturation greater than 92% on room air. No chest wall tenderness is noted on palpation or with deep breathing. CARDIOVASCULAR: Dialysis catheter noted to right chest wall. Regular rate and rhythm. S1 and S2 noted. No systolic or diastolic murmur auscultated. No JVD noted. No S3 or S4 noted. GASTROINTESTINAL: Abdomen soft and round. Normal active bowel sounds auscultated x 4 quadrants. No pain or tenderness noted upon palpation. INTEGUMENTARY: Erythema noted to left knee, which patient reports is chronic and reports history of psoriasis and also states he is irritated because of trying to get his prosthesis on and off. No cyanosis. No jaundice. No rashes noted. EXTREMITIES: 4+ pitting edema to right lower extremity. Nonpitting edema noted to bilateral hands and fingers. Left BKA noted. Partial right foot amputation. Right foot with dressing noted to plantar surface. NEUROLOGIC: Cranial nerves II-XII intact. PSYCHIATRIC: Awake, alert, and oriented X 3. Appropriate affect. Intact judgement and insight. - Labs CBC & Chem 7: 12/27/17 23:53 12/27/17 23:53 Labs: Abnormal Lab Results - Last 24 Hours (Table) 12/27/17 12/28/17 12/28/17 Range/Units 23:53 11:40 16:36 POC Glucose (mg/dL) 198 H 188 H (75-99) mg/dL Hemoglobin A1c 7.3 H (4.0-6.0) % 12/28/17 12/29/17 Range/Units 21:00 06:06 POC Glucose (mg/dL) 296 H 193 H (75-99) mg/dL Hemoglobin A1c (4.0-6.0) % Assessment and Plan Plan: ASSESSMENT: Chronic kidney disease, end-stage, currently on hemodialysis M, W, F Acute exacerbation of diastolic congestive heart failure, due to fluid overload , secondary to above Recent hospitalization, December 2017, secondary to fluid overload secondary to not completing entire dialysis session Recent diagnosis of gout of right lower extremity, currently completing prednisone taper Recent bout of persistent diarrhea, patient scheduled for outpatient colonoscopy this month with Dr. Dodson/Julisa Elevated LFTs, suspect secondary to CHF/passive venous congestion Hypertension Peripheral vascular disease with history of left BKA and right partial foot amputation 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 Sy in the wound care center Diabetes mellitus, type II with diabetic retinopathy and diabetic neuropathy Hyperglycemia History of seizures Coronary artery disease with previous myocardial infarction History of MRSA infection of left lower extremity History of left upper extremity DVT History of gastroparesis Hypothyroidism Anemia of chronic disease secondary to CKD Hospitalization in November 2017 secondary to fluid overload secondary to missed dialysis session an acute hypertensive emergency. Hospitalization in October 2017 secondary to malfunctioning peritoneal dialysis catheter, which was removed and patient was transitioned back to hemodialysis Hospitalization in July 2017 for nausea and vomiting secondary to diabetic gastroparesis, patient signed out AMA Hospitalization in May 2017 for peritonitis, cultures positive for MSSA, PD catheter removed at that time and patient was transitioned to hemodialysis PLAN: Nephrology on consult. Appreciate recommendations and input. Patient reports he will undergo dialysis today with goal of 3.5 L of fluid removal, tomorrow with a goal of 3L, and then will resume his normal dialysis schedule on Wednesday Continue Natanael wrap to right lower extremity. Elevate extremity while in bed Continue patients prednisone taper. Patient starting first day of 30mg yesterday (x 3 days) then decrease to 20mg x 3 days beginning on Wednesday Pain control. [place] PRN. Will add morphine for breakthrough pain. Dr. Sy on consult. Appreciate recommendations and input Consult Dr. Brooke to evaluate patient Continue novolog sliding scale ACHS. Increase levemir to 30 units. Increase Novolog to 8 units TID with meals. Home meds as appropriate Monitor labs GI prophylaxis: Pepcid 20mg PO BID DVT prophylaxis: Heparin 5000 units subcu every 8 hours Monitor vital signs and address as appropriate Discharge planning: Patient to return home when stable with home care and PT Patient will require folding wheeled walker with seat at the time of discharge. Rx to be signed and placed in patients. Further recommendations pending patient's course Nurse practitioner note has been reviewed by physician. Signing provider agrees with the documented findings, assessment, and plan of care.
[2017-12-29 11:26] LABS: Glucose,Whole Blood 140 mg/dL (75-99)
--- NOTE | 2017-12-29 13:36 | PN ---
PROGRESS NOTE Patient is seen for followup for end-stage renal disease. He states that he is feeling better. Volume status is improved. However, he still has significant edema. The patient is scheduled for hemodialysis today and he is requesting another treatment tomorrow. PHYSICAL EXAMINATION: Blood pressure is 137/98, heart rate is 72 per minute. He is afebrile. heart S1, S2. Examination of the lungs bilateral breath sounds are heard. Abdomen is soft, nontender. Exam of lower extremities shows edema 2+ bilaterally. Right forefoot amputation. MUSICAL INSTRUMENT MAKER exam is grossly intact. LABS: From December 27, show potassium of 4.4, hemoglobin 10.8 g/dL. ASSESSMENT: 1. End-stage renal disease, on hemodialysis on a Wednesday, Wednesday, Wednesday schedule. 2. Fluid overload currently improved. 3. Hypertension. Possibly volume sensitive, now improved. 4. Anemia of chronic disease. 5. Chronic kidney disease, mineral bone disorder. PLAN: Hemodialysis today as well as tomorrow. Patient is requesting for treatment tomorrow which we can dialyze him for about 2.5 hours following which he can be discharged and he will have a regular treatment tomorrow as outpatient. MMODL / IJN: [id number] /
--- NOTE | 2017-12-29 14:41 | CDI ---
Last Revision, June 2017 Documentation Clarification Form Date: 12/29/2017 2:35:47 PM From: Otilia Hines RN, CCDS Admit Date: 12/28/2017 2:16:00 AM Patient Name: Greg Miles Visit Number: [id number] Discharge Date: ATTENTION: The Clinical Documentation Specialists (CDI) and [facility] Coding Staff appreciate your assistance in clarifying documentation. Please respond to the clarification below the line at the bottom and electronically sign. The CDI & [facility] Coding staff will review the response and follow-up if needed. Please note: Queries are made part of the Legal Health Record. If you have any questions, please contact the author of this message via ITS. Dr. Kong Hough Hypertension is documented in your H/P and progress notes. Patient history/risk factors Diabetes, ESRD on HD, , Hypertension, PVD, CAD Clinical Indicators: Present with complaints of 20 pound weight gain, not feeling well. He complains of swelling in the dependent parts of his body and some shortness of breath. Lower extremity shows edema 2+ bilaterally. Right forefoot is amputated. Vital signs on admission 212/120, 94 16, 203/107 98 20, 183/89 87 18 Labs: BUN 31, CR 3.30, BNP 126,000, RBS 535 CXR: Pulmonary vascular congestion Treatment: Monitor vital signs Apresoline IVP X1 Lasix PO Apresoline PO TID Aldactone PO HD-Ultrafiltration per orders. Consults: Nephrology: Hypertension, partly volume sensitive. Expect improvement with ultrafiltration. In your professional opinion, can you further please clarify Hypertension? Hypertensive Crisis Hypertensive Urgency Hypertensive Emergency with Heart disease --->with Kidney disease Other, please specify Unable to determine Please continue to document in your progress notes and discharge summary in order to capture severity of illness and risk of mortality. Include clinical findings that support your diagnosis. MTDD
[2017-12-29 15:23] VITALS: BMI 29.9
--- NOTE | 2017-12-29 16:03 | P.CN ---
Psychiatric Consult - . Consult date: 12/29/17 Consult:: IDENTIFYING DATA: Mr. Miles is a 47-year-old male with multiple medical problems including end-stage kidney disease. He requested the hospitalist place a psychiatric consult. HISTORY OF PRESENT ILLNESS: He stated that he wishes to meet with a therapist in order to discuss his concerns. He talked about having "unresolved issues." He feels guilty that he wasn't available for his children when they were young. 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 He placed much emphasis on his career and providing for his family and he feels that he neglected their emotional needs. He is also distressed by the effect of his multiple medical problems. He feels useless that he is no longer able to work and is dependent on his brother and his son. He described feelings of depression, sadness, helpless and worthlessness. However he denied feeling hopeless or having thoughts of or suicide. He feels guilty and ruminates over his past errors and sometimes feels as though his medical illnesses her punishment for his past behavior. He denied delusions of guilt, accusatory or denunciatory voices or experiences threatening visual hallucinations. He has difficulty falling and staying asleep. He has decreased interest in enjoyment in his past activities. He experiences psychiatric anxiety, apprehension and fears. He understands that he is depressed and recognizes the need for mental health treatment. He denied the use of alcohol or drugs. He denied periods of anxiety consistent with panic attacks. He denied obsessions or compulsions. He denied experiencing such psychotic symptoms as auditory, visual or olfactory hallucinations, ideas reference etc. PAST PSYCHIATRIC HISTORY: He met with counselor "several years ago". He denied psychiatric hospitalizations. He denied suicide attempts or nonlethal self- harm. PAST MEDICAL HISTORY: He has a complicated medical history including diabetes mellitus, stage V renal disease, deep vein thrombosis, GERD, hyperlipidemia, hypertension, history of myocardial infarct, seizure disorder, vascular disease and thyroid disease. He is been on dialysis for approximately 5 years. He has a left below the knee amputation and ulcers on his right foot and right leg.. ALLERGIES: Lisinopril and sulfa drugs. SUBSTANCE USE HISTORY: He denied a history of alcohol or drug use. FAMILY PSYCHIATRIC/SUBSTANCE USE HISTORY: He is unaware of family history of mental illness. SOCIAL HISTORY: His born in [place] and raised in an intact family. He has 1 brother. His parents moved to [place] when he was 14. He graduated from high school in [place]. He is . He has 3 children ages 18-21. He lives with his brother and youngest son. He took custody of 3 children because their mother was "unfit." He is unable to work because of his multiple medical problems and receives disability. MENTAL STATUS EXAM: He presented as a pale appearing 47-year-old male who is laying comfortably in bed. He was undergoing dialysis and accredited pharmacy technician was present outside the room. He made eye contact and attended to the interview. He had a depressed facial expression. He was alert and oriented to person, place and time. He showed psychomotor retardation but no abnormal movements. His speech was spontaneous with decreased rate, rhythm and volume. His affect was depressed and not reactive. He denied suicidal ideation or wishes. He denied homicidal ideation. He expressed some depressive cognitions including helpless to denied feeling worthless or hopeless. He ruminated about his medical problems and guilt over not being more emotionally supportive his children when they were young. He did not express ideas reference, paranoid ideation or delusional thoughts. His thinking was abstract and associations were coherent, logical and goal directed. He denied hallucinations and did not appear to be responding to internal stimuli. IMPRESSIONS: He is a 47 year-old male with multiple and severe medical problems including end-stage renal disease on dialysis. He complains of depression and expresses guilt over his past behavior. He has signs and symptoms of major depressive disorder uncomplicated by psychosis. He denied suicidal ideation and in plan and appears to be low risk for suicide. He is requesting mental health services as interest is posed to him individual therapy and antidepressant medication. 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 The medication should be started at the lowest dose and titrated according to clinical response and tolerance. Consult with social work regarding a referral for outpatient mental health services including individual therapy and psychiatric services. There is no indication for transfer the psychiatric unit at this time. Thank you for the consult. 12/29/17 15:45
[2017-12-29 16:41] LABS: Glucose,Whole Blood 129 mg/dL (75-99)
[2017-12-29] MEDS: TAMSULOSIN 0.4 MG CAP.ER.24H PO SCH (17:20)
[2017-12-29] MEDS: INSULIN DETEMIR 100 UNIT/ML 10 ML VIAL SQ SCH (20:21)
[2017-12-29] MEDS: TRIAMCINOLONE 0.1% CREAM 80 GM TUBE TOPICAL SCH (20:22)
[2017-12-29 21:21] LABS: Glucose,Whole Blood 143 mg/dL (75-99)
--- NOTE | 2017-12-29 22:48 | P.PN ---
Subjective Progress Note Date: 12/29/17 47-year-old male is well-known to the infectious disease service because of the nonhealing ulceration to his right foot and is multiple bouts of sepsis. Most recent hospitalizations were related to the peritonitis from his infected peritoneal dialysis catheter. There is noted this eventually was removed and he has now been converted back to hemodialysis. He is on a routine Wednesday regimen. He relates despite this his fluid has been increasing has been having increasing edema and his blood sugars have been increasing. He is not clear on his ability to have fluid restriction. He routinely struggles with his diet. He's been followed for a nonhealing ulceration to the right foot plantar that is doing considerably better. He is at this time denying fevers chills rigors or sweats. He still feels very weak and short of breath but feels considerably better than prior. Any is able to ingest his dinner without nausea or emesis. He makes very little urine. It is noted that recently he was hospitalized for difficulties with volume overload and congestive heart failure as well as a bout of gout and was treated with steroid therapy. He does have some difficulties with his gastrointestinal tract at times with his gastroparesis he developed severe nausea and emesis which fortunately he has not a problem at this time, was having diarrhea and will have GI eval 01/06/2018. 12/29/2017 patient had dialysis again today and is feeling better. Edema is improving with a new complaints. No nausea or emesis. Still is fatigued but has no new acute complaints Objective - Vital Signs Vital signs: Vital Signs Temp 98.5 F 12/29/17 20:19 Pulse 72 12/29/17 20:19 Resp 17 12/29/17 20:19 BP 151/81 12/29/17 20:19 Pulse Ox 94 L 12/29/17 20:19 Intake & Output 12/29/17 12/29/17 12/30/17 06:59 18:59 06:59 Intake Total 2155 120 Balance 2155 120 Weight 94.7 kg 94.7 kg Intake: IV 20 0.9 20 Oral 2155 120 Other: Voiding Method Toilet Toilet Toilet # Voids 2 1 1 - Exam HEENT: Anicteric conjunctiva are pink and moist nasal mucosa grossly intact without significant lesions, there is no thrush. Neck: The neck is supple without significant lymphadenopathy or thyromegaly. Lungs: Good bilateral air entry without significant crackles or wheezing. There is no significant bronchial sounds. There is no egophony or dullness. Heart: Regular rate and rhythm with an audible S1-S2, no S3 no S4. There is no significant murmur click or rub, PMI was nondisplaced. Abdomen: the abdomen is soft his minimal tenderness in the epigastrium. No guarding or rebound. No palpable masses or organomegaly. Extremities: The upper extremities have excellent pulses they are symmetric, no significant petechiae or telangiectasia. No splinter hemorrhages were noted. residual limb to the left is evidence of dry skin but no open ulcerations are seen. Right lower extremity ulceration of the foot has resolved but his extensive edema to the lower extremity, there is a bit of rash on to the residual limb of the left no opening or drainage is noted - Labs CBC & Chem 7: 12/27/17 23:53 12/27/17 23:53 Labs: Abnormal Lab Results - Last 24 Hours (Table) 12/29/17 12/29/17 12/29/17 Range/Units 06:06 11:24 16:38 POC Glucose (mg/dL) 193 H 140 H 129 H (75-99) mg/dL 12/29/17 Range/Units 21:20 POC Glucose (mg/dL) 143 H (75-99) mg/dL Laboratory Results WBC 6.1 k/uL (3.8-10.6) 12/27/17 23:53 RBC 3.90 m/uL (4.30-5.90) L 12/27/17 23:53 Hgb 10.8 gm/dL (13.0-17.5) L 12/27/17 23:53 Hct 35.1 % (39.0-53.0) L 12/27/17 23:53 MCV 89.9 fL (80.0-100.0) 12/27/17 23:53 MCH 27.6 pg (25.0-35.0) 12/27/17 23:53 MCHC 30.7 g/dL (31.0-37.0) L 12/27/17 23:53 RDW 23.0 % (11.5-15.5) H 12/27/17 23:53 Plt Count 186 k/uL (150-450) 12/27/17 23:53 Neutrophils % 91 % 12/27/17 23:53 Lymphocytes % 2 % 12/27/17 23:53 Monocytes % 6 % 12/27/17 23:53 Eosinophils % 1 % 12/27/17 23:53 Basophils % 0 % 12/27/17 23:53 Neutrophils # 5.5 k/uL (1.3-7.7) 12/27/17 23:53 Lymphocytes # 0.1 k/uL (1.0-4.8) L 12/27/17 23:53 Monocytes # 0.3 k/uL (0-1.0) 12/27/17 23:53 Eosinophils # 0.1 k/uL (0-0.7) 12/27/17 23:53 Basophils # 0.0 k/uL (0-0.2) 12/27/17 23:53 Hypochromasia Moderate 12/27/17 23:53 Poikilocytosis Slight 12/27/17 23:53 Anisocytosis Moderate 12/27/17 23:53 Macrocytosis Slight 12/27/17 23:53 PT 10.2 sec (9.0-12.0) 12/27/17 23:53 INR 1.0 (<1.2) 12/27/17 23:53 APTT 19.4 sec (22.0-30.0) L 12/27/17 23:53 Sodium 132 mmol/L (137-145) L 12/27/17 23:53 Potassium 4.1 mmol/L (3.5-5.1) 12/27/17 23:53 Chloride 91 mmol/L (98-107) L 12/27/17 23:53 Carbon Dioxide 27 mmol/L (22-30) 12/27/17 23:53 Anion Gap 14 mmol/L 12/27/17 23:53 BUN 31 mg/dL (9-20) H 12/27/17 23:53 Creatinine 3.30 mg/dL (0.66-1.25) H 12/27/17 23:53 Est GFR (CKD-EPI)AfAm 25 (>60 ml/min/1.73 sqM) 12/27/17 23:53 Est GFR (CKD-EPI)NonAf 21 (>60 ml/min/1.73 sqM) 12/27/17 23:53 Glucose 535 mg/dL (74-99) H* 12/27/17 23:53 POC Glucose (mg/dL) 143 mg/dL (75-99) H 12/29/17 21:20 POC Glu Delivery Clerk ID Perry Ferrara 12/29/17 21:[address] Glu mg/dL 163 12/27/17 23:53 Hemoglobin A1c 7.3 % (4.0-6.0) H 12/27/17 23:53 Calcium 8.4 mg/dL (8.4-10.2) 12/27/17 23:53 Phosphorus 3.1 mg/dL (2.5-4.5) 12/27/17 23:53 Magnesium 1.8 mg/dL (1.6-2.3) 12/27/17 23:53 Total Bilirubin 1.4 mg/dL (0.2-1.3) H 12/27/17 23:53 AST 143 U/L (17-59) H 12/27/17 23:53 ALT 196 U/L (21-72) H 12/27/17 23:53 Alkaline Phosphatase 216 U/L (38-126) H 12/27/17 23:53 CK-MB (CK-2) 6.6 ng/mL (0.0-2.4) H* 12/27/17 23:53 Troponin I 0.045 ng/mL (0.000-0.034) H* 12/27/17 23:53 NT-Pro-B Natriuret Pep [id number] pg/mL 12/27/17 23:53 Total Protein 6.3 g/dL (6.3-8.2) 12/27/17 23:53 Albumin 3.8 g/dL (3.5-5.0) 12/27/17 23:53 Assessment and Plan (1) Charcot's joint of foot in type 1 diabetes mellitus Current Visit: No Status: Acute Priority: Medium Code(s): E10.610 - TYPE 1 DIABETES MELLITUS W DIABETIC NEUROPATHIC ARTHROPATHY SNOMED Code(s): 45895556 (2) End stage renal disease on dialysis Current Visit: No Status: Chronic Code(s): N18.6 - END STAGE RENAL DISEASE SNOMED Code(s): 738066719 (3) Ulcer of right foot Narrative/Plan: 47-year-old male well known to the service for his many hospitalizations over this last year, the most recent was related to the infection of his peritoneal dialysis catheter. Surgery remove the catheter and vascular surgery placed his access for his hemodialysis in the right anterior chest wall. He is in a relatively well with dialysis and appears to be having difficulties with his diet and fluid intake. Fortunately this time does not appear to have an acute infection in the significant ulceration that was right foot plantar has healed. The DuoDERM will be applied to protect the site. Is a minimal rash on the left lower extremity and some triamcinolone cream will be applied this evening, would need to be wiped away before the sleep to be applied so that his prosthesis can be worn. He recently did have a flare of gout and has been treated with prednisone likely worsening his hyperglycemia, and the secondary fluid retention that is occurring. Hopefully as this tapers he will have further improvement, but does need to have improved dietary compliance. 12/29/2017 patient's feeling better after his second episode of hemodialysis and ultrafiltration. He is less edematous and does feel somewhat better overall. Has not yet reached his baseline but denies acute new symptoms. No evidence of any new ulcerations. Tolerating the optifoam well and the rash has responded well to the triamcinolone. Likely will be discharged soon after his next dialysis session. Current Visit: Yes Status: Acute Code(s): L97.519 - NON-PRS CHRONIC ULCER OTH PRT RIGHT FOOT W UNSP SEVERITY SNOMED Code(s): 72397562
[2017-12-30] MEDS: MORPHINE SULFATE 2 MG/ML SYRINGE IVP PRN ×4 (01:27→19:50)
[2017-12-30 06:16] LABS: Glucose,Whole Blood 189 mg/dL (75-99)
[2017-12-30] MEDS: CALCIUM ACETATE 667 MG CAP PO SCH ×5 (06:25→23:08)
[2017-12-30] MEDS: LEVOTHYROXINE 25 MCG TAB PO SCH (06:25)
[2017-12-30] MEDS: SEVELAMER 800 MG TAB PO SCH ×4 (06:26→19:50)
[2017-12-30] MEDS: CARVEDILOL 12.5 MG TAB PO SCH ×2 (06:26→18:25)
[2017-12-30] MEDS: INSULIN ASPART 100 UNIT/ML 1 ML 10 ML VIAL SQ SCH ×7 (06:31→21:38)
[2017-12-30] MEDS: acetaZOLAMIDE 250 MG TAB PO SCH ×2 (10:38→19:48)
[2017-12-30] MEDS: HEPARIN SODIUM,PORCINE 5,000 UNIT/ML 1 ML VIAL SQ SCH ×3 (10:38→23:06)
[2017-12-30] MEDS: levETIRAcetam 500 MG TAB PO SCH ×2 (10:39→19:49)
[2017-12-30] MEDS: hydrALAZINE HCL 50 MG TAB PO SCH ×3 (10:39→21:37)
[2017-12-30] MEDS: THIAMINE 100 MG TAB PO SCH (10:39)
[2017-12-30] MEDS: SPIRONOLACTONE 25 MG TAB PO SCH (10:39)
[2017-12-30] MEDS: amLODIPine 10 MG TAB PO SCH (10:39)
[2017-12-30] MEDS: GABAPENTIN 300 MG CAP PO SCH ×3 (10:39→21:38)
[2017-12-30] MEDS: FUROSEMIDE 80 MG TAB PO SCH ×2 (10:39→19:49)
[2017-12-30] MEDS: COLCHICINE 0.6 MG EACH PO SCH ×2 (10:40→19:48)
[2017-12-30] MEDS: FAMOTIDINE 20 MG TAB PO SCH (10:40)
[2017-12-30] MEDS: predniSONE 10 MG TAB PO SCH (10:40)
[2017-12-30] MEDS: LOSARTAN 50 MG TAB PO SCH ×2 (10:40→19:48)
[2017-12-30] MEDS: AMIODARONE 200 MG TAB PO SCH ×2 (10:40→19:48)
[2017-12-30] MEDS: DIVALPROEX ER 500 MG TAB.ER.24H PO SCH (10:41)
--- NOTE | 2017-12-30 10:49 | P.PN ---
Subjective PER Tamela Tomlinson N.P. dictating for me 47-year-old male who presented to the emergency room with a chief complaint of shortness of breath and right lower extremity edema. Patient reports he has not missed any dialysis sessions. Patient is on a M, W, schedule. He states he underwent dialysis yesterday and completed the entire session without difficulty. Patient unable to recall the total amount of fluid removed. He complains of generalized aches especially in his hands and fingers, which are very edematous. He states he began having shortness of breath and increased swelling of his right lower extremity over the past few days. He has been wrapping his leg with an natanael bandage. Patient denies chest pain or pressure. Denies cough. Denies fever or chills. Patient reports his blood sugars have been elevated at home. He reports taking his insulin as prescribed. He denies non-compliance with his diet and reports avoiding foods high in sugar. The patient has a history of coronary artery disease, diabetes, DVT, GERD, hypertension, hyperlipidemia, myocardial infarction, peripheral vascular disease with a left [id number] amputation. 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 He also has a chronic wound on his right foot and follows with Dr. Sy in the wound center. Patient reports he was seeing Dr. Sy every two weeks. However, he has not seen Dr. Sy in almost a month due to his hospitalizations and patient having to reschedule his appointments. He reports he was scheduled to see Dr. Sy today in the wound care center. The patient was recently hospitalized from 12/19/2017 until 12/22/2017 for fluid overload and CHF secondary to not completing his entire dialysis session and gout of his right foot. The patient was discharged home in stable condition. The patient was prescribed a prednisone taper at the time of discharge for his gout (50mg x 5 days, 40mg x 4 days, 30mg x 3 days, 20mg x 3 days, and 10mg x 3 days). Patient states he started the prednisone on the day he was discharged which makes today the first day of his 30mg regimen. Patient reports improvement in his gout symptoms. The patient was also evaluated by Dr. Dodson during that admission for persistent diarrhea. C-diff was negative. Patient was to undergo EGD and colonoscopy inpatient but refused to continue his prep. Patient was then scheduled for outpatient testing on 12/30/2017. Patient reports he called Dr. Faith office to inform them of his hospitalization and now he is planned for EGD and colonoscopy 01/06/2018. The patient has had multiple admissions in 2018 including a hospitalization from 11/18/2017 until 11/24/2017 secondary to fluid overload secondary to missed dialysis session an acute hypertensive emergency. The patient was also hospitalized from 10/25/2017 until 11/08/2017. During that admission, patient had been having difficulty with his PD catheter. He underwent shuntogram which revealed significant fibrin sheath around the catheter. Dr. Adorno performed laparoscopic repositioning of peritoneal dialysis catheter. The patient was started on low volume peritoneal dialysis. When his peritoneal dialysis volumes were increased, the patient began having difficulty with abdominal pain and nausea with peritoneal dialysis exchanges. The patient decided to stop PD and continue on hemodialysis. His schedule is M, W, . He has a right chest wall dialysis catheter secondary to peritonitis in 2016 when his peritoneal dialysis catheter had to be removed and he was placed on hemodialysis at that time. Chest x-ray: Pulmonary vascular congestion. This is slightly improved compared to old exam. There is improved inspiration compared to last exam. Laboratory data: WBC 6.1. Hemoglobin 10.8. Platelet count 186. Sodium 132. Potassium 4.1. BUN 31. Creatinine 3.30. Glucose 535. Total bilirubin 1.4. AST 143. ALT 196. Alkaline phosphatase 216. CK-MB 6.6. Troponin 0.045 BNP: 126,000 The patient was admitted to the hospital under the care of Dr. Aguilar. Consultations were placed to nephrology. 12/29/2017 Patient seen and examined at the bedside. Patient states he underwent dialysis yesterday and 3L was removed. Patient reports he is going to have dialysis today with a goal of 3.5 L and an extra session tomorrow with a goal of 3 L, and then will resume his normal schedule on Wednesday. Patient was evaluated yesterday by Dr. Sy for chronic foot wound. Dr. Sy recommends continuing DuoDerm to plantar surface. Dr. Sy also recommends Triamcinolone cream to left stump. Patient's blood sugars remain elevated, but improved since yesterday. Patient reports he is having a lot of stress and anxiety in his life. He expresses that a lot of things have happened in his past and states he made a lot of bad decisions. He did not elaborate any further on this but states "I feel so stressed out and am always worrying about things. I feel like I can not move on with my life with all these thoughts constantly running through my mind". Patient states he is not depressed. He denies suicidal or homicidal ideations. He denies auditory or visual hallucinations. Patient states he did see a counselor when he was in his 20s after his parents were diagnosed with cancer. The patient is requesting consultation to speak with a psychiatrist. 12/30/2017: Per Dr. Hough. Fluid and swelling is improved with dialysis. Greg is scheduled for dialysis on Wednesday patient. We discussed him staying one more day, as he is not back to baseline, for another treatment of dialysis tomorrow. He complains of itching to his left dorsal thigh. He is a rash this area. Currently has Kenalog cream ordered per Dr. Sy. He denies any chest pains, pressures, shortness of breath, nausea, vomiting, or diarrhea at this point. He is recently on steroids for gout flareup. This certainly may have contributed to his hyperglycemia and edema. Psychiatry note was reviewed. Objective - Vital Signs Vital signs: Vital Signs Temp 98.1 F 12/30/17 08:00 Pulse 78 12/30/17 08:00 Resp 18 12/30/17 08:00 BP 155/99 12/30/17 08:00 Pulse Ox 98 12/30/17 08:00 Intake & Output 12/29/17 12/30/17 12/30/17 18:59 06:59 18:59 Intake Total 2156 120 Balance 2156 120 Weight 94.7 kg 94 kg Intake: Oral 2156 120 Other: Voiding Method Toilet Toilet Toilet Urinal # Voids 1 2 - Exam GENERAL: This is a 47-year-old male in no apparent distress at the time of examination. Pleasant and cooperative. RESPIRATORY: Diminished with rales present to bilateral bases. No use of accessory muscles. Patient maintaining oxygen saturation greater than 92% on room air. No chest wall tenderness is noted on palpation or with deep breathing. CARDIOVASCULAR: Dialysis catheter noted to right chest wall. Regular rate and rhythm. S1 and S2 noted. No systolic or diastolic murmur auscultated. No JVD noted. No S3 or S4 noted. GASTROINTESTINAL: Abdomen soft and round. Normal active bowel sounds auscultated x 4 quadrants. No pain or tenderness noted upon palpation. INTEGUMENTARY: Erythema noted to left knee, which patient reports is chronic and reports history of psoriasis and also states he is irritated because of trying to get his prosthesis on and off. No cyanosis. No jaundice. No rashes noted. EXTREMITIES: 4+ pitting edema to right lower extremity. Nonpitting edema noted to bilateral hands and fingers. Left BKA noted. Partial right foot amputation. Right foot with dressing noted to plantar surface. NEUROLOGIC: Cranial nerves II-XII intact. PSYCHIATRIC: Awake, alert, and oriented X 3. Appropriate affect. Intact judgement and insight. Depressed mood, normal affect - Labs CBC & Chem 7: 12/27/17 23:53 12/27/17 23:53 Labs: Abnormal Lab Results - Last 24 Hours (Table) 12/29/17 12/29/17 12/29/17 Range/Units 11:24 16:38 21:20 POC Glucose (mg/dL) 140 H 129 H 143 H (75-99) mg/dL 12/30/17 Range/Units 06:15 POC Glucose (mg/dL) 189 H (75-99) mg/dL Assessment and Plan Plan: ASSESSMENT: Chronic kidney disease, end-stage, currently on hemodialysis M, W, F Acute exacerbation of diastolic congestive heart failure, due to fluid overload , secondary to above Recent hospitalization, December 2017, secondary to fluid overload secondary to not completing entire dialysis session Recent diagnosis of gout of right lower extremity, currently completing prednisone taper Recent bout of persistent diarrhea, patient scheduled for outpatient colonoscopy this month with Dr. Dodson/Julisa Elevated LFTs, suspect secondary to CHF/passive venous congestion Hypertension Peripheral vascular disease with history of left BKA and right partial foot amputation 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 Sy in the wound care center Diabetes mellitus, type II with diabetic retinopathy and diabetic neuropathy Hyperglycemia History of seizures Coronary artery disease with previous myocardial infarction History of MRSA infection of left lower extremity History of left upper extremity DVT History of gastroparesis Hypothyroidism Anemia of chronic disease secondary to CKD Hospitalization in November 2017 secondary to fluid overload secondary to missed dialysis session an acute hypertensive emergency. Hospitalization in October 2017 secondary to malfunctioning peritoneal dialysis catheter, which was removed and patient was transitioned back to hemodialysis Hospitalization in July 2017 for nausea and vomiting secondary to diabetic gastroparesis, patient signed out AMA Hospitalization in May 2017 for peritonitis, cultures positive for MSSA, PD catheter removed at that time and patient was transitioned to hemodialysis PLAN: Nephrology and psychiatry notes reviewed today. Patient will undergo dialysis Wednesday Continue Natanael wrap to right lower extremity. Elevate extremity while in bed, continue Kenalog Continue patients prednisone taper. Patient starting first day of 30mg yesterday (x 3 days) then decrease to 20mg x 3 days beginning on Wednesday Pain control. Bozrah PRN. Will add morphine for breakthrough pain. Continue novolog sliding scale ACHS. Increase levemir to 30 units. Increase Novolog to 8 units TID with meals. Home meds as appropriate Monitor labs GI prophylaxis: Pepcid 20mg PO BID DVT prophylaxis: Heparin 5000 units subcu every 8 hours Monitor vital signs and address as appropriate Discharge planning: Patient to return home when stable with home care and PT Patient will require folding wheeled walker with seat at the time of discharge. Rx to be signed and placed in patients. Because he has a wheelchair, he will not be able to obtain one. I discussed at length with him trying [employer] or other location where things are donated when they're no longer needed, including walkers. Unless he will give up his wheelchair, which point his insurance would pay for her walker. Discharge tomorrow in the p.m.
[2017-12-30 11:58] LABS: Glucose,Whole Blood 117 mg/dL (75-99)
--- NOTE | 2017-12-30 14:25 | PN ---
PROGRESS NOTE Patient is currently seen on hemodialysis. He is tolerating the treatment very well. Fluid status is significantly improved. PHYSICAL EXAMINATION: Blood pressure 162/82 early this morning and then 155/99, heart rate 78 per minute. Patient is afebrile. Examination of the heart: S1, S2. Examination lungs: Bilateral breath sounds are heard. Abdomen is soft, nontender. Examination lower extremities shows much decreased edema. The patient has a right forefoot amputation. LABS: Not available recently. ASSESSMENT: 1. End-stage renal disease, on hemodialysis on a Wednesday, Wednesday, Wednesday schedule as outpatient. However, patient is getting on with the dialysis secondary to severe fluid overload. Today, he is scheduled for ultrafiltration only. 2. Fluid overload currently improved. 3. Hypertension, mostly volume sensitive, significantly improved. 4. Hyperglycemia and uncontrolled diabetes, now improved. 5. Anemia of chronic disease. 6. CKD mineral bone disorder maintained on the phosphate binders. PLAN: The patient is doing much better. He will be dialyzed again tomorrow as it will be his regular treatment day. MMODL / IJN: [id number] /
[2017-12-30] MEDS: LOPERAMIDE 2 MG CAP PO PRN (15:49)
[2017-12-30 16:57] LABS: Glucose,Whole Blood 327 mg/dL (75-99)
[2017-12-30] MEDS: TAMSULOSIN 0.4 MG CAP.ER.24H PO SCH (18:26)
[2017-12-30] MEDS: TRIAMCINOLONE 0.1% CREAM 80 GM TUBE TOPICAL SCH (19:50)
[2017-12-30] MEDS ORDERED: MIRTAZAPINE 15 MG TAB PO SCH (21:00)
[2017-12-30 21:12] LABS: Glucose,Whole Blood 183 mg/dL (75-99)
[2017-12-30] MEDS: INSULIN DETEMIR 100 UNIT/ML 10 ML VIAL SQ SCH (21:38)
[2017-12-31] MEDS: MORPHINE SULFATE 2 MG/ML SYRINGE IVP PRN ×3 (02:31→13:37)
[2017-12-31] MEDS: LOPERAMIDE 2 MG CAP PO PRN (03:29)
[2017-12-31 06:16] LABS: Glucose,Whole Blood 50 mg/dL (75-99)
[2017-12-31] MEDS: INSULIN ASPART 100 UNIT/ML 1 ML 10 ML VIAL SQ SCH ×6 (06:16→18:29)
[2017-12-31] MEDS: SEVELAMER 800 MG TAB PO SCH ×3 (06:18→18:28)
[2017-12-31] MEDS: CALCIUM ACETATE 667 MG CAP PO SCH ×3 (06:20→15:18)
[2017-12-31] MEDS: LEVOTHYROXINE 25 MCG TAB PO SCH (06:20)
[2017-12-31] MEDS: CARVEDILOL 12.5 MG TAB PO SCH ×2 (06:20→18:29)
[2017-12-31 06:36] LABS: Glucose,Whole Blood 40 mg/dL (75-99)
[2017-12-31] MEDS ORDERED: DEXTROSE 50%-WATER 50 ML SYRINGE IVP ONE (06:37)
[2017-12-31 07:04] LABS: Glucose,Whole Blood 134 mg/dL (75-99)
[2017-12-31 07:27] LABS: Anisocytosis Moderate; Basophils % (A) 0 %; Eosinophils % (A) 1 %; HCT 31.3 % (39.0-53.0); HGB 9.4 gm/dL (13.0-17.5); Hypochromasia Marked; Lymphocytes # (A) 0.4 k/uL (1.0-4.8); Lymphocytes % (A) 7 %; MCH 28.3 pg (25.0-35.0); MCHC 30.2 g/dL (31.0-37.0); MCV 93.9 fL (80.0-100.0); Macrocytosis Slight; Mean Platelet Volume 8.1; Monocytes # (A) 0.6 k/uL (0-1.0); Monocytes % (A) 9 %; Neutrophils # (A) 5.3 k/uL (1.3-7.7); Neutrophils % (A) 82 %; Platelet Count 154 k/uL (150-450); RBC 3.33 m/uL (4.30-5.90); RDW 23.2 % (11.5-15.5); WBC 6.4 k/uL (3.8-10.6)
[2017-12-31 07:49] LABS: Calcium 8.2 mg/dL (8.4-10.2); Potassium 3.5 mmol/L (3.5-5.1)
--- NOTE | 2017-12-31 08:13 | PN ---
PROGRESS NOTE Patient is seen for followup for end-stage renal disease. This morning, patient will be scheduled for his routine dialysis. He is comfortable. He is sleeping but arousable. His blood pressure was 182/90 last night. Heart rate 82 per minute. He is afebrile. Examination shows edema of bilateral lower extremities, currently significantly improved. The patient has right foot amputation. Abdomen is soft, obese, nontender. LABS: Labs are pending from today. ASSESSMENT: 1. End-stage renal disease, on hemodialysis on a Wednesday, Wednesday, Wednesday schedule. The patient is scheduled for hemodialysis today. He has been receiving almost daily dialysis, mainly secondary to fluid overload. 2. Fluid overload, now significantly improved. 3. Hypertension, initially uncontrolled, mainly associated with fluid overload, currently improving. 4. Peripheral vascular disease with history of left BKA and right partial foot amputation. 5. Coronary artery disease with history of myocardial infarction. 6. History of methicillin-resistant Staphylococcus aureus infection in the right foot, status post right forefoot amputation. PLAN: Hemodialysis today. UF of about 4 L as tolerated. MMODL / IJN: [id number] /
[2017-12-31] MEDS ORDERED: predniSONE 20 MG TAB PO SCH (09:00)
[2017-12-31] MEDS: levETIRAcetam 500 MG TAB PO SCH (09:17)
[2017-12-31] MEDS: GABAPENTIN 300 MG CAP PO SCH ×2 (09:18→15:18)
[2017-12-31] MEDS: THIAMINE 100 MG TAB PO SCH (09:18)
[2017-12-31] MEDS: DIVALPROEX ER 500 MG TAB.ER.24H PO SCH (09:18)
[2017-12-31] MEDS: COLCHICINE 0.6 MG EACH PO SCH (09:18)
[2017-12-31] MEDS: AMIODARONE 200 MG TAB PO SCH (09:18)
[2017-12-31] MEDS: FAMOTIDINE 20 MG TAB PO SCH (09:18)
[2017-12-31] MEDS: HEPARIN SODIUM,PORCINE 5,000 UNIT/ML 1 ML VIAL SQ SCH ×2 (09:19→15:19)
[2017-12-31 10:42] VITALS: RESP 18
[2017-12-31 11:49] LABS: Glucose,Whole Blood 96 mg/dL (75-99)
[2017-12-31 14:12] VITALS: BP 158/97; PULSE 70; TEMP 97.4
--- NOTE | 2017-12-31 14:18 | P.DS ---
Providers Date of admission: 12/28/17 02:16 Expected date of discharge: 12/31/17 Attending physician: Kong Hough Consults: 12/28/17 02:13 Consult Physician Routine Consulting Provider: Vashti Ovalles Consult Reason/Comments: chronic renal failure Do you want consulting provider notified?: Yes 12/28/17 09:31 Consult Physician Routine Consulting Provider: Charlie Sy Consult Reason/Comments: pt known to you, missed wound center appt due to hospitalization Do you want consulting provider notified?: Yes 12/29/17 10:02 Consult Physician Routine Consulting Provider: Charlie Cisneros Consult Reason/Comments: pt requesting consult, anxiety, stress Do you want consulting provider notified?: Yes Primary care physician: Laird Hospital Course: PER Tamela Tomlinson N.P. dictating for me 47-year-old male who presented to the emergency room with a chief complaint of shortness of breath and right lower extremity edema. Patient reports he has not missed any dialysis sessions. Patient is on a , , schedule. He states he underwent dialysis yesterday and completed the entire session without difficulty. Patient unable to recall the total amount of fluid removed. He complains of generalized aches especially in his hands and fingers, which are very edematous. He states he began having shortness of breath and increased swelling of his right lower extremity over the past few days. He has been wrapping his leg with an lali bandage. Patient denies chest pain or pressure. Denies cough. Denies fever or chills. Patient reports his blood sugars have been elevated at home. He reports taking his insulin as prescribed. He denies non-compliance with his diet and reports avoiding foods high in sugar. The patient has a history of coronary artery disease, diabetes, DVT, GERD, hypertension, hyperlipidemia, myocardial infarction, peripheral vascular disease with a left [id number] amputation. 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 He also has a chronic wound on his right foot and follows with Dr. Sy in the wound center. Patient reports he was seeing Dr. Sy every two weeks. However, he has not seen Dr. Sy in almost a month due to his hospitalizations and patient having to reschedule his appointments. He reports he was scheduled to see Dr. Sy today in the wound care center. The patient was recently hospitalized from 12/19/2017 until 12/22/2017 for fluid overload and CHF secondary to not completing his entire dialysis session and gout of his right foot. The patient was discharged home in stable condition. The patient was prescribed a prednisone taper at the time of discharge for his gout (50mg x 5 days, 40mg x 4 days, 30mg x 3 days, 20mg x 3 days, and 10mg x 3 days). Patient states he started the prednisone on the day he was discharged which makes today the first day of his 30mg regimen. Patient reports improvement in his gout symptoms. The patient was also evaluated by Dr. Dodson during that admission for persistent diarrhea. C-diff was negative. Patient was to undergo EGD and colonoscopy inpatient but refused to continue his prep. Patient was then scheduled for outpatient testing on 12/30/2017. Patient reports he called Dr. Faith office to inform them of his hospitalization and now he is planned for EGD and colonoscopy 01/06/2018. The patient has had multiple admissions in 2018 including a hospitalization from 11/18/2017 until 11/24/2017 secondary to fluid overload secondary to missed dialysis session an acute hypertensive emergency. The patient was also hospitalized from 10/25/2017 until 11/08/2017. During that admission, patient had been having difficulty with his PD catheter. He underwent shuntogram which revealed significant fibrin sheath around the catheter. Dr. Adorno performed laparoscopic repositioning of peritoneal dialysis catheter. The patient was started on low volume peritoneal dialysis. When his peritoneal dialysis volumes were increased, the patient began having difficulty with abdominal pain and nausea with peritoneal dialysis exchanges. The patient decided to stop PD and continue on hemodialysis. His schedule is M, W, . He has a right chest wall dialysis catheter secondary to peritonitis in 2017 when his peritoneal dialysis catheter had to be removed and he was placed on hemodialysis at that time. Chest x-ray: Pulmonary vascular congestion. This is slightly improved compared to old exam. There is improved inspiration compared to last exam. Laboratory data: WBC 6.1. Hemoglobin 10.8. Platelet count 186. Sodium 132. Potassium 4.1. BUN 31. Creatinine 3.30. Glucose 535. Total bilirubin 1.4. AST 143. ALT 196. Alkaline phosphatase 216. CK-MB 6.6. Troponin 0.045 BNP: 126,000 The patient was admitted to the hospital under the care of Dr. Aguilar. Consultations were placed to nephrology. 12/29/2017 Patient seen and examined at the bedside. Patient states he underwent dialysis yesterday and 3L was removed. Patient reports he is going to have dialysis today with a goal of 3.5 L and an extra session tomorrow with a goal of 3 L, and then will resume his normal schedule on Wednesday. Patient was evaluated yesterday by Dr. Sy for chronic foot wound. Dr. Sy recommends continuing DuoDerm to plantar surface. Dr. Sy also recommends Triamcinolone cream to left stump. Patient's blood sugars remain elevated, but improved since yesterday. Patient reports he is having a lot of stress and anxiety in his life. He expresses that a lot of things have happened in his past and states he made a lot of bad decisions. He did not elaborate any further on this but states "I feel so stressed out and am always worrying about things. I feel like I can not move on with my life with all these thoughts constantly running through my mind". Patient states he is not depressed. He denies suicidal or homicidal ideations. He denies auditory or visual hallucinations. Patient states he did see a counselor when he was in his 20s after his parents were diagnosed with cancer. The patient is requesting consultation to speak with a psychiatrist. 12/30/2017: Per Dr. Hough. Fluid and swelling is improved with dialysis. Greg is scheduled for dialysis on Wednesday patient. We discussed him staying one more day, as he is not back to baseline, for another treatment of dialysis tomorrow. He complains of itching to his left dorsal thigh. He is a rash this area. Currently has Kenalog cream ordered per Dr. Sy. He denies any chest pains, pressures, shortness of breath, nausea, vomiting, or diarrhea at this point. He is recently on steroids for gout flareup. This certainly may have contributed to his hyperglycemia and edema. Psychiatry note was reviewed. 12/31/2017: pt s/p Dialysis with 3.5 L removed. Doing wll. Ready to go home. He will look for a wlaker with [employer], so that he does not have to give up his wheel chair at this time. Final DX Chronic kidney disease, end-stage, currently on hemodialysis M, W, F Acute exacerbation of diastolic congestive heart failure, due to fluid overload , secondary to above Recent hospitalization, December 2017, secondary to fluid overload secondary to not completing entire dialysis session Recent diagnosis of gout of right lower extremity, currently completing prednisone taper Recent bout of persistent diarrhea, patient scheduled for outpatient colonoscopy this month with Dr. 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 Sy in the wound care center Diabetes mellitus, type II with diabetic retinopathy and diabetic neuropathy Hyperglycemia History of seizures Coronary artery disease with previous myocardial infarction History of MRSA infection of left lower extremity History of left upper extremity DVT History of gastroparesis Hypothyroidism Anemia of chronic disease secondary to CKD Patient Condition at Discharge: Poor Plan - Discharge Summary Discharge Rx Participant: No New Discharge Prescriptions: Continue Insulin Glargine [Lantus] 10 unit SQ HS Calcium Acetate [PhosLo] 667 mg PO 5XD Sevelamer [Renvela] 800 mg PO QID Tamsulosin [Flomax] 0.8 mg PO PC-SUPPER Thiamine [Vitamin B-1] 100 mg PO DAILY Gabapentin [Neurontin] 300 mg PO TID Insulin Aspart [NovoLOG Flexpen] See Protocol SQ TID-W/MEALS acetaZOLAMIDE [Diamox] 125 mg PO BID #60 tab Carvedilol [Coreg*] 12.5 mg PO BID-W/MEALS #60 tab Losartan [Cozaar] 50 mg PO BID #60 tab Colchicine [Colcrys] 0.6 mg PO BID amLODIPine [Norvasc] 10 mg PO DAILY Spironolactone 50 mg PO DAILY Famotidine 20 mg PO BID Divalproex ER [Depakote ER] 500 mg PO DAILY levETIRAcetam [Keppra] 500 mg PO Q12HR Furosemide [Lasix] 80 mg PO BID Amiodarone [Cordarone] 200 mg PO BID tab hydrALAZINE HCL [Apresoline] 50 mg PO TID #90 tab Levothyroxine Sodium [Synthroid] 25 mcg PO DAILY@0630 tab Loperamide [Imodium] 2 mg PO QID PRN #30 cap PRN Reason: Diarrhea predniSONE See Taper PO DIRECTED #45 tab Discharge Medication List Calcium Acetate [PhosLo] 667 mg PO 5XD 04/08/15 [History] Insulin Glargine [Lantus] 10 unit SQ HS 04/08/15 [History] Sevelamer [Renvela] 800 mg PO QID 01/20/16 [History] Tamsulosin [Flomax] 0.8 mg PO PC-SUPPER 05/20/17 [History] Thiamine [Vitamin B-1] 100 mg PO DAILY 05/20/17 [History] Gabapentin [Neurontin] 300 mg PO TID 08/06/17 [History] Insulin Aspart [NovoLOG Flexpen] See Protocol SQ TID-W/MEALS 08/06/17 [History] acetaZOLAMIDE [Diamox] 125 mg PO BID #60 tab 11/08/17 [Rx] Carvedilol [Coreg*] 12.5 mg PO BID-W/MEALS #60 tab 11/24/17 [Rx] Losartan [Cozaar] 50 mg PO BID #60 tab 11/24/17 [Rx] Colchicine [Colcrys] 0.6 mg PO BID 12/19/17 [History] Divalproex ER [Depakote ER] 500 mg PO DAILY 12/19/17 [History] Famotidine 20 mg PO BID 12/19/17 [History] Furosemide [Lasix] 80 mg PO BID 12/19/17 [History] Spironolactone 50 mg PO DAILY 12/19/17 [History] amLODIPine [Norvasc] 10 mg PO DAILY 12/19/17 [History] levETIRAcetam [Keppra] 500 mg PO Q12HR 12/19/17 [History] Amiodarone [Cordarone] 200 mg PO BID tab 12/22/17 [Rx] Levothyroxine Sodium [Synthroid] 25 mcg PO DAILY@0630 tab 12/22/17 [Rx] Loperamide [Imodium] 2 mg PO QID PRN #30 cap 12/22/17 [Rx] hydrALAZINE HCL [Apresoline] 50 mg PO TID #90 tab 12/22/17 [Rx] predniSONE See Taper PO DIRECTED #45 tab 12/22/17 [Rx] Follow up Appointment(s)/Referral(s): Scott Aguilar Jr, [Primary Care Provider] - 01/06/18 8:30 am () [facility], [NON-STAFF] - Patient Instructions/Handouts: Heart Failure (DC), Chronic Kidney Disease (DC) Activity/Diet/Wound Care/Special Instructions: Pt is to call [employer] ([phone]) at time of DC, they are holding a rolling walker and pt will need to pick it up. Discharge Disposition: HOME WITH HOME HEALTH SERVICES
[2017-12-31] MEDS: hydrALAZINE HCL 50 MG TAB PO SCH ×2 (14:31→15:18)
[2017-12-31] MEDS: amLODIPine 10 MG TAB PO SCH (14:31)
[2017-12-31] MEDS: SPIRONOLACTONE 25 MG TAB PO SCH (15:17)
[2017-12-31] MEDS: acetaZOLAMIDE 250 MG TAB PO SCH (15:18)
[2017-12-31] MEDS: LOSARTAN 50 MG TAB PO SCH (15:18)
[2017-12-31] MEDS: FUROSEMIDE 80 MG TAB PO SCH (15:18)
--- NOTE | 2017-12-31 16:11 | P.PN ---
Subjective Progress Note Date: 12/31/17 47-year-old male is well-known to the infectious disease service because of the nonhealing ulceration to his right foot and is multiple bouts of sepsis. Most recent hospitalizations were related to the peritonitis from his infected peritoneal dialysis catheter. There is noted this eventually was removed and he has now been converted back to hemodialysis. He is on a routine Wednesday regimen. He relates despite this his fluid has been increasing has been having increasing edema and his blood sugars have been increasing. He is not clear on his ability to have fluid restriction. He routinely struggles with his diet. He's been followed for a nonhealing ulceration to the right foot plantar that is doing considerably better. He is at this time denying fevers chills rigors or sweats. He still feels very weak and short of breath but feels considerably better than prior. Any is able to ingest his dinner without nausea or emesis. He makes very little urine. It is noted that recently he was hospitalized for difficulties with volume overload and congestive heart failure as well as a bout of gout and was treated with steroid therapy. He does have some difficulties with his gastrointestinal tract at times with his gastroparesis he developed severe nausea and emesis which fortunately he has not a problem at this time, was having diarrhea and will have GI eval 01/06/2018. 12/29/2017 patient had dialysis again today and is feeling better. Edema is improving with a new complaints. No nausea or emesis. Still is fatigued but has no new acute complaints 12/31/2017 reveals the patient to be much improvedHe is having his fourth dialysis session and more than 14 L of fluid have now come off with his dialysis cycle and the patient feels considerably better. We discuss the difficulties of his fluid status. He was on peritoneal dialysis before his hemodialysis. Appears in dialysis he did not have significant fluid restriction which she now does and is having a great difficulty with his foot restriction and his dietary restrictions. Objective - Vital Signs Vital signs: Vital Signs Temp 97.4 F L 12/31/17 12:00 Pulse 70 12/31/17 12:00 Resp 18 12/31/17 12:00 BP 158/97 12/31/17 12:00 Pulse Ox 100 12/31/17 12:00 Intake & Output 12/30/17 12/31/17 12/31/17 18:59 06:59 18:59 Intake Total 840 600 Balance 840 600 Weight 93.1 kg Intake: Oral 840 600 Other: Voiding Method Toilet Toilet Toilet Urinal Urinal Urinal # Voids 0 1 2 # Bowel Movements 3 2 - Exam HEENT: Anicteric conjunctiva are pink and moist nasal mucosa grossly intact without significant lesions, there is no thrush. Neck: The neck is supple without significant lymphadenopathy or thyromegaly. Lungs: Good bilateral air entry without significant crackles or wheezing. There is no significant bronchial sounds. There is no egophony or dullness. Heart: Regular rate and rhythm with an audible S1-S2, no S3 no S4. There is no significant murmur click or rub, PMI was nondisplaced. Abdomen: the abdomen is soft his minimal tenderness in the epigastrium. No guarding or rebound. No palpable masses or organomegaly. Extremities: The upper extremities have excellent pulses they are symmetric, no significant petechiae or telangiectasia. No splinter hemorrhages were noted. residual limb to the left is evidence of dry skin but no open ulcerations are seen. Right lower extremity ulceration of the foot has resolvedand the extensive edema to the lower extremityis much improved,rash resolved - Labs CBC & Chem 7: 12/31/17 06:48 12/31/17 06:48 Labs: Abnormal Lab Results - Last 24 Hours (Table) 12/30/17 12/30/17 12/31/17 Range/Units 16:52 21:11 06:15 RBC (4.30-5.90) m/uL Hgb (13.0-17.5) gm/dL Hct (39.0-53.0) % MCHC (31.0-37.0) g/dL RDW (11.5-15.5) % Lymphocytes # (1.0-4.8) k/uL BUN (9-20) mg/dL Creatinine (0.66-1.25) mg/dL Glucose (74-99) mg/dL POC Glucose (mg/dL) 327 H 183 H 50 L (75-99) mg/dL Calcium (8.4-10.2) mg/dL 12/31/17 12/31/17 12/31/17 Range/Units 06:35 06:48 06:48 RBC 3.33 L (4.30-5.90) m/uL Hgb 9.4 L (13.0-17.5) gm/dL Hct 31.3 L (39.0-53.0) % MCHC 30.2 L (31.0-37.0) g/dL RDW 23.2 H (11.5-15.5) % Lymphocytes # 0.4 L (1.0-4.8) k/uL BUN 28 H (9-20) mg/dL Creatinine 3.15 H (0.66-1.25) mg/dL Glucose 132 H (74-99) mg/dL POC Glucose (mg/dL) 40 L (75-99) mg/dL Calcium 8.2 L (8.4-10.2) mg/dL 12/31/17 Range/Units 06:53 RBC (4.30-5.90) m/uL Hgb (13.0-17.5) gm/dL Hct (39.0-53.0) % MCHC (31.0-37.0) g/dL RDW (11.5-15.5) % Lymphocytes # (1.0-4.8) k/uL BUN (9-20) mg/dL Creatinine (0.66-1.25) mg/dL Glucose (74-99) mg/dL POC Glucose (mg/dL) 134 H (75-99) mg/dL Calcium (8.4-10.2) mg/dL Laboratory Results WBC 6.4 k/uL (3.8-10.6) 12/31/17 06:48 RBC 3.33 m/uL (4.30-5.90) L 12/31/17 06:48 Hgb 9.4 gm/dL (13.0-17.5) L 12/31/17 06:48 Hct 31.3 % (39.0-53.0) L 12/31/17 06:48 MCV 93.9 fL (80.0-100.0) 12/31/17 06:48 MCH 28.3 pg (25.0-35.0) 12/31/17 06:48 MCHC 30.2 g/dL (31.0-37.0) L 12/31/17 06:48 RDW 23.2 % (11.5-15.5) H 12/31/17 06:48 Plt Count 154 k/uL (150-450) 12/31/17 06:48 Neutrophils % 82 % 12/31/17 06:48 Lymphocytes % 7 % 12/31/17 06:48 Monocytes % 9 % 12/31/17 06:48 Eosinophils % 1 % 12/31/17 06:48 Basophils % 0 % 12/31/17 06:48 Neutrophils # 5.3 k/uL (1.3-7.7) 12/31/17 06:48 Lymphocytes # 0.4 k/uL (1.0-4.8) L 12/31/17 06:48 Monocytes # 0.6 k/uL (0-1.0) 12/31/17 06:48 Eosinophils # 0.0 k/uL (0-0.7) 12/31/17 06:48 Basophils # 0.0 k/uL (0-0.2) 12/31/17 06:48 Hypochromasia Marked 12/31/17 06:48 Poikilocytosis Slight 12/27/17 23:53 Anisocytosis Moderate 12/31/17 06:48 Macrocytosis Slight 12/31/17 06:48 PT 10.2 sec (9.0-12.0) 12/27/17 23:53 INR 1.0 (<1.2) 12/27/17 23:53 APTT 19.4 sec (22.0-30.0) L 12/27/17 23:53 Sodium 137 mmol/L (137-145) 12/31/17 06:48 Potassium 3.5 mmol/L (3.5-5.1) 12/31/17 06:48 Chloride 99 mmol/L (98-107) 12/31/17 06:48 Carbon Dioxide 29 mmol/L (22-30) 12/31/17 06:48 Anion Gap 9 mmol/L 12/31/17 06:48 BUN 28 mg/dL (9-20) H 12/31/17 06:48 Creatinine 3.15 mg/dL (0.66-1.25) H 12/31/17 06:48 Est GFR (CKD-EPI)AfAm 26 (>60 ml/min/1.73 sqM) 12/31/17 06:48 Est GFR (CKD-EPI)NonAf 22 (>60 ml/min/1.73 sqM) 12/31/17 06:48 Glucose 132 mg/dL (74-99) H 12/31/17 06:48 POC Glucose (mg/dL) 96 mg/dL (75-99) 12/31/17 11:45 POC Glu Casting Inspector ID Juan Morrow 12/31/17 11:[address] Glu mg/dL 163 12/27/17 23:53 Hemoglobin A1c 7.3 % (4.0-6.0) H 12/27/17 23:53 Calcium 8.2 mg/dL (8.4-10.2) L 12/31/17 06:48 Phosphorus 3.1 mg/dL (2.5-4.5) 12/27/17 23:53 Magnesium 1.8 mg/dL (1.6-2.3) 12/27/17 23:53 Total Bilirubin 1.4 mg/dL (0.2-1.3) H 12/27/17 23:53 AST 143 U/L (17-59) H 12/27/17 23:53 ALT 196 U/L (21-72) H 12/27/17 23:53 Alkaline Phosphatase 216 U/L (38-126) H 12/27/17 23:53 CK-MB (CK-2) 6.6 ng/mL (0.0-2.4) H* 12/27/17 23:53 Troponin I 0.045 ng/mL (0.000-0.034) H* 12/27/17 23:53 NT-Pro-B Natriuret Pep [id number] pg/mL 12/27/17 23:53 Total Protein 6.3 g/dL (6.3-8.2) 12/27/17 23:53 Albumin 3.8 g/dL (3.5-5.0) 12/27/17 23:53 Assessment and Plan (1) Charcot's joint of foot in type 1 diabetes mellitus Current Visit: No Status: Acute Priority: Medium Code(s): E10.610 - TYPE 1 DIABETES MELLITUS W DIABETIC NEUROPATHIC ARTHROPATHY SNOMED Code(s): 28962502 (2) End stage renal disease on dialysis Current Visit: No Status: Chronic Code(s): N18.6 - END STAGE RENAL DISEASE SNOMED Code(s): 572182793 (3) Ulcer of right foot Narrative/Plan: 47-year-old male well known to the service for his many hospitalizations over this last year, the most recent was related to the infection of his peritoneal dialysis catheter. Surgery remove the catheter and vascular surgery placed his access for his hemodialysis in the right anterior chest wall. He is in a relatively well with dialysis and appears to be having difficulties with his diet and fluid intake. Fortunately this time does not appear to have an acute infection in the significant ulceration that was right foot plantar has healed. The DuoDERM will be applied to protect the site. Is a minimal rash on the left lower extremity and some triamcinolone cream will be applied this evening, would need to be wiped away before the sleep to be applied so that his prosthesis can be worn. He recently did have a flare of gout and has been treated with prednisone likely worsening his hyperglycemia, and the secondary fluid retention that is occurring. Hopefully as this tapers he will have further improvement, but does need to have improved dietary compliance. 12/29/2017 patient's feeling better after his second episode of hemodialysis and ultrafiltration. He is less edematous and does feel somewhat better overall. Has not yet reached his baseline but denies acute new symptoms. No evidence of any new ulcerations. Tolerating the optifoam well and the rash has responded well to the triamcinolone. Likely will be discharged soon after his next dialysis session. 12/31/2017 finds the patient much improved. With his multiple dialysis sessions many liters of fluid have been removed and is feeling better. Edema is better. Is able to wear his prosthesis. No new lesions are seen. No new infections. Current Visit: Yes Status: Acute Code(s): L97.519 - NON-PRS CHRONIC ULCER OTH PRT RIGHT FOOT W UNSP SEVERITY SNOMED Code(s): 54003742
[2017-12-31 16:40] LABS: Glucose,Whole Blood 197 mg/dL (75-99)
[2017-12-31] MEDS: TAMSULOSIN 0.4 MG CAP.ER.24H PO SCH (18:28)
== END 2017-12-31 19:15 | disposition home health service (06) | DRG 291 ==
LOC: EC 23:36 → 6SEL 12-28 02:16
PROVIDERS: ADMIT Family Medicine; ATTEND Family Medicine
PROC: 5A1D70Z Performance of Urinary Filtration, Intermittent, Less than 6 Hours Per Day (ICD-10-PCS; principal; 2017-12-29)
DX: I13.2 Hypertensive heart and chronic kidney disease with heart failure and with stage 5 chronic kidney disease, or end stage renal disease (principal); I50.33 Acute on chronic diastolic (congestive) heart failure; N18.6 End stage renal disease; I16.1 Hypertensive emergency; I25.10 Atherosclerotic heart disease of native coronary artery without angina pectoris; I25.2 Old myocardial infarction; K21.9 Gastro-esophageal reflux disease without esophagitis; D63.1 Anemia in chronic kidney disease; E03.9 Hypothyroidism, unspecified; E11.22 Type 2 diabetes mellitus with diabetic chronic kidney disease; E11.319 Type 2 diabetes mellitus with unspecified diabetic retinopathy without macular edema; E11.43 Type 2 diabetes mellitus with diabetic autonomic (poly)neuropathy; E11.40 Type 2 diabetes mellitus with diabetic neuropathy, unspecified; E11.621 Type 2 diabetes mellitus with foot ulcer; E11.65 Type 2 diabetes mellitus with hyperglycemia; K31.84 Gastroparesis; E66.9 Obesity, unspecified; E78.5 Hyperlipidemia, unspecified; F41.9 Anxiety disorder, unspecified; G40.909 Epilepsy, unspecified, not intractable, without status epilepticus; M10.9 Gout, unspecified; R21 Rash and other nonspecific skin eruption; E11.51 Type 2 diabetes mellitus with diabetic peripheral angiopathy without gangrene; E11.610 Type 2 diabetes mellitus with diabetic neuropathic arthropathy; E83.89 Other disorders of mineral metabolism; Z79.4 Long term (current) use of insulin; Z79.899 Other long term (current) drug therapy; Z79.890 Hormone replacement therapy; Z88.2 Allergy status to sulfonamides; Z88.8 Allergy status to other drugs, medicaments and biological substances; Z99.2 Dependence on renal dialysis; Z86.718 Personal history of other venous thrombosis and embolism; Z86.14 Personal history of Methicillin resistant Staphylococcus aureus infection; Z89.431 Acquired absence of right foot; Z89.512 Acquired absence of left leg below knee; Z98.42 Cataract extraction status, left eye; Z98.41 Cataract extraction status, right eye; Z96.1 Presence of intraocular lens; Z82.49 Family history of ischemic heart disease and other diseases of the circulatory system; Z68.29 Body mass index [BMI] 29.0-29.9, adult; Z80.1 Family history of malignant neoplasm of trachea, bronchus and lung; Z80.9 Family history of malignant neoplasm, unspecified
CPT/HCPCS: 36415; 71046; 80048; 80053; 82553; 83036; 83735; 83880; 84100; 84484; 85025; 85610; 85730; 90935; 93005; 96374; 96375; 99284

== ENCOUNTER 2018-01-01 09:52 | Emergency (ER) | payer MEDICARE, BC ==
[2018-01-01 10:13] VITALS: TEMP 96.9
--- NOTE | 2018-01-01 10:24 | ED ---
General Adult HPI - General Chief complaint: Cardiac Arrest/CPR Stated complaint: Cardiac Arrest Time Seen by Provider: 01/01/18 09:53 Source: EMS, RN notes reviewed, old records reviewed Mode of arrival: EMS Limitations: altered mental status, physical limitation - History of Present Illness Initial comments: Patient is an unresponsive 47-year-old male presenting to emergency Department priority one by EMS. Patient was last seen at 9 AM. Patient was found around 9 :15 or 920. EMS did find patient pulseless with asystole. Patient has been unresponsive and provides no history. Patient arrives emergency department still unresponsive and providing no history. Patient reportedly has recently been in the hospital and just discharged. Family is not present at this time. - Related Data Home Medications Medication Instructions Recorded Confirmed Calcium Acetate [PhosLo] 667 mg PO 5XD 04/08/15 12/28/17 Insulin Glargine [Lantus] 10 unit SQ HS 04/08/15 12/28/17 Sevelamer [Renvela] 800 mg PO QID 01/20/16 12/28/17 Tamsulosin [Flomax] 0.8 mg PO PC-SUPPER 05/20/17 12/28/17 Thiamine [Vitamin B-1] 100 mg PO DAILY 05/20/17 12/28/17 Gabapentin [Neurontin] 300 mg PO TID 08/06/17 12/28/17 Insulin Aspart [NovoLOG Flexpen] See Protocol SQ TID-W/MEALS 08/06/17 12/28/17 Colchicine [Colcrys] 0.6 mg PO BID 12/19/17 12/28/17 Divalproex ER [Depakote ER] 500 mg PO DAILY 12/19/17 12/28/17 Famotidine 20 mg PO BID 12/19/17 12/28/17 Furosemide [Lasix] 80 mg PO BID 12/19/17 12/28/17 Spironolactone 50 mg PO DAILY 12/19/17 12/28/17 amLODIPine [Norvasc] 10 mg PO DAILY 12/19/17 12/28/17 levETIRAcetam [Keppra] 500 mg PO Q12HR 12/19/17 12/28/17 Previous Rx's Medication Instructions Recorded acetaZOLAMIDE [Diamox] 125 mg PO BID #60 tab 04/30/18 Carvedilol [Coreg*] 12.5 mg PO BID-W/MEALS #60 tab 11/24/17 Losartan [Cozaar] 50 mg PO BID #60 tab 11/24/17 Amiodarone [Cordarone] 200 mg PO BID tab 12/22/17 Levothyroxine Sodium [Synthroid] 25 mcg PO DAILY@0630 tab 12/22/17 Loperamide [Imodium] 2 mg PO QID PRN #30 cap 12/22/17 hydrALAZINE HCL [Apresoline] 50 mg PO TID #90 tab 12/22/17 predniSONE See Taper PO DIRECTED #45 tab 12/22/17 Allergies Allergy/AdvReac Type Severity Reaction Status Date / Time lisinopril Allergy Rash/Hives Verified 12/28/17 07:29 Sulfa (Sulfonamide Allergy Rash/Hives Verified 12/28/17 07:29 Antibiotics) Review of Systems ROS Statement: Those systems with pertinent positive or pertinent negative responses have been documented in the HPI. ROS Other: All systems not noted in ROS Statement are negative. Limitations: ROS unobtainable due to patients medical condition Past Medical History Past Medical History: Diabetes Mellitus, Diabetes Mellitus, Dialysis, Deep Vein Thrombosis (DVT), GERD/Reflux, Hyperlipidemia, Hypertension, Myocardial Infarction (NM), Renal Disease, Seizure Disorder, Thyroid Disorder, Vascular Disorder Additional Past Medical History / Comment(s): End stage renal disease on hemodialysis, previous history of peritoneal dialysis, currently undergoing hemodialysis MWF, diabetic nephropathy, diabetic retinopathy in addition to diabetic gastroparesis, chronic anemia, previous history of a upper extremity DVT related to IV lines, below-knee amputation on the left, peripheral vascular disease, hypothyroidism, peripheral vascular disease, seizure disorder, coronary artery disease, previous myocardial infarction, acid reflux, hyperlipidemia, MRSA wound infections, right lower extremity leg and foot ulcerationwagner grade II diabetic ulcer plantar R foot and lateral R leg, MRSA R foot. Last Myocardial Infarction Date:: 2012 History of Any Multi-Drug Resistant Organisms: MRSA Date of last positivie culture/infection: 07/01/17 MDRO Source:: RIGHT FOOT Past Surgical History: Orthopedic Surgery Additional Past Surgical History / Comment(s): HD catheter, I&D R foot/lateral R leg, amputation right foot toes GEORGE CATARACTS,VITRECTOMY,GEORGE RETINAL SX Past Anesthesia/Blood Transfusion Reactions: No Reported Reaction Additional Past Anesthesia/Blood Transfusion Reaction / Comment(s): Pt has received blood without reaction. Past Psychological History: No Psychological Hx Reported, Anxiety Smoking Status: Never smoker Past Alcohol Use History: None Reported Past Drug Use History: None Reported - Past Family History Father Family Medical History: Cancer Additional Family Medical History / Comment(s): CANCER FROM AGENT [place] Mother History Unknown: Yes Family Medical History: Cancer, Supraventricular Tachycardia (SVT) Additional Family Medical History / Comment(s): LUNG CANCER(SMOKER) General Exam Limitations: altered mental status, physical limitation General appearance: obtunded, other (CPR in progress. Patient has copious amounts of bloody discharge in the pharynx despite continued suction.) Head exam: Present: atraumatic Eye exam: Present: other (Pupils fixed and dilated) ENT exam: Present: other (Copious amount of bloody discharge in the pharynx and spontaneously leaking from the mouth) Neck exam: Present: normal inspection Respiratory exam: Present: other (No spontaneous breath sounds.) Cardiovascular Exam: Present: other (No spontaneous heart sounds. No pulse.) GI/Abdominal exam: Present: soft Extremities exam: Present: other (Right partial foot amputation. Left BKA) Neurological exam: Present: other (Unresponsive) Expanded Eye Response: (1) no response Motor Response: (1) no motor response Verbal Response: (1) no verbal response Psychiatric exam: Present: other (Unresponsive) Skin exam: Present: normal color Course Vital Signs 01/01/18 10:10 Temperature 96.9 F L - Reevaluation(s) Reevaluation #1: 01/01/18 10:21 Patient has no spontaneous breath sounds. Patient has no heart sounds. No pulse. Pupils are fixed and dilated. No response to pain. Asystole on the monitor . Time of is 1008. 01/01/18 10:24 Dr. Shoemaker has been paged to inform. 01/01/18 10:36 Dr. Hough was notified. Case was discussed with medical delivery driver Roseline, who will release the body. Procedures - Intubation Time Out Performed: Yes Laryngoscope: Rice Size: 3 ET Tube Size: 8 Tube Placement Confirmation: visualized tube passing through cords, equal breath sounds bilaterally, no breath sounds over epigastrium, confirmation by capnometry Patient Tolerated Procedure: well, other (Patient did have copious amounts of fluid in the oropharynx that needed to be suctioned with two suction catheters in order to visualize the vocal cords.) Disposition Clinical Impression: Cardiac arrest Disposition: Is patient prescribed a controlled substance at d/c from ED?: No Referrals: Scott Aguilar Jr, [Primary Care Provider] - 1-2 days Preliminary Cause of : Cardiac arrest
== END 2018-01-01 11:51 | disposition expired ==
LOC: EC 09:52
DX: I46.9 Cardiac arrest, cause unspecified (principal); R41.82 Altered mental status, unspecified; I12.0 Hypertensive chronic kidney disease with stage 5 chronic kidney disease or end stage renal disease; N18.6 End stage renal disease; G40.909 Epilepsy, unspecified, not intractable, without status epilepticus; K21.9 Gastro-esophageal reflux disease without esophagitis; E11.21 Type 2 diabetes mellitus with diabetic nephropathy; E11.22 Type 2 diabetes mellitus with diabetic chronic kidney disease; E11.319 Type 2 diabetes mellitus with unspecified diabetic retinopathy without macular edema; E11.43 Type 2 diabetes mellitus with diabetic autonomic (poly)neuropathy; E11.621 Type 2 diabetes mellitus with foot ulcer; F41.9 Anxiety disorder, unspecified; I25.2 Old myocardial infarction; Z88.2 Allergy status to sulfonamides; Z79.4 Long term (current) use of insulin; Z79.899 Other long term (current) drug therapy; Z88.8 Allergy status to other drugs, medicaments and biological substances; Z86.14 Personal history of Methicillin resistant Staphylococcus aureus infection; Z99.2 Dependence on renal dialysis; Z89.431 Acquired absence of right foot; Z89.512 Acquired absence of left leg below knee; Z82.49 Family history of ischemic heart disease and other diseases of the circulatory system
CPT/HCPCS: 31500; 92950; 99285